=== PATIENT | male | born 1945 | race Caucasian/White ===

== ENCOUNTER → 2016-05-08 | Day surgery (SDC) | payer BC ==
[2016-04-27 09:14] VITALS: Ht 180.3 cm; Wt 85.5 kg
[~2016-05-08] VITALS: Ht 180.3 cm; Wt 85.5 kg
[~2016-05-08] MED LIST: ALBU1AER9 INH; ARTIOIN2 OPB; ASPEC81 PO; ASPI-435 PO; ATROPINE SULFATE 0.1 MG/ML 5ML SYR IV PRN; BUME1TAB PO; BUPR-83 PO; CARV25TA PO; CARV25TA2 PO; CETI10TA84 PO; CHOL1CAP30 PO; CHOL2000 PO; CIPR-255 PO; CLC100 PO; CMD5 PO; CRFL PO; DOCU100C31 PO; DOCU1TAB6 PO; DXY100 PO; EMOL-19 TOP; EPIN1INJ37; EPP3 IM; EpHEDrine SULFATE INJ 50 MG/ML AMP IV PRN; FERR325T5 PO; FINA5TAB PO; FOLI1TAB7 PO; HYDR-3126 PO; KETAMINE HCL INJ 50 MG/ML 10 ML VIAL ONE; LISI-729 PO; LISI5TAB3 PO; LSN5 PO; METO-157 PO; METO5TAB2 PO; MIDAZOLAM HCL 1 MG/ML 2ML VIAL ONE; MOME50SP5 NAE; MOME6000 NAE; NYSCR30 EXT; NYST1POW7; ONDA4TAB46 PO; ONDANSETRON INJ 2 MG/ML 2 ML VIAL ONE; OXYC-652 PO; PANT1TAB48 PO; PANT40TA PO; PHEN-775 PO; POTA20TA16 PO; PROPOFOL IV EMULSION 10 MG/ML 20 ML VIAL IV ONE; SENN8.6T94 PO; SIMV80TA2 PO; SODIUM CHLORIDE 0.9% 500ML 500 ML IV ONE; SODIUM CHLORIDE 0.9% INJ 10 ML VIAL ONE; SPRIN/30 INH; TAMS0.4C38 PO; TIOTCAP INH; VNTHFA/IN INH; WARF5TAB7 PO; WLL100; WLL75 PO; ZNTT/150 PO; cpap INH
--- NOTE | 2016-05-08 11:49 | Endo History and Physical ---
History & Physical Date of Service: May 08, 2016. Chief Complaint: SCREENING, RIGH UPPER QUAD PAIN Referring Physician: DR JUAREZ BOATENG, [facility] History of Present Illness 71 yo CM who presents for EGD secondary to RUQ abdominal pain and screening colonoscopy. Past Medical History Pacemaker, Male Genitourinary Prob., Gastrointestinal Disorder, Sleep Apnea, CABG, Heart Disease, CHF, Hypertension, Depression, MT Past Surgical History Hx Cardiac Surgery: Yes (HEART CATH-1 STENT PLACED) Hx Internal Defibrillator: Yes (PACER/DEFIBRILLATOR ) Hx Pacemaker: Yes Hx Abdominal Surgery: Yes (RT INGUINAL HERNIA X 3, EPIFANIO FUNDOPLICATION, LAP MARCOS) Hx of Implantable Prosthesis: No Hx Post-Op Nausea and Vomiting: No Hx Cancer Surgery: No Hx Thoracic Surgery: No Hx Orthopedic: Yes (RT FOOT SX, LEFT FOOT FX REPAIR (AND HARDWARE REMOVAL)) Hx Urinary Tract Surgery: Yes (VASECTOMY) Family History Polyp Social History Smoking Status: Former Smoker Hx Substance Use: Yes (SEE MED REC) Hx Alcohol Use: No Allergies Coded Allergies: BEE STING (Verified Allergy, Unknown, ., 02/07/16) Lidocaine (Verified Allergy, Unknown, RASH, 02/07/16) Penicillins (Verified Allergy, Unknown, SWELLING, DIFFICULTY BREATHING, ) SWELLING Hydrocodone (Verified Adverse Reaction, Mild, nausea, 02/07/16) Oxycodone (Verified Adverse Reaction, Mild, nausea, 02/07/16) Current Medications Reported Home Medications Medications Dose Route/Sig Max Daily Dose Days Date Category Dose Instructions Carafate (Sucralfate) 1 Gm/10 Ml Genoveva 10 Ml PO HS 02/07/16 Reported Zofran (Ondansetron HCl) 4 Mg Tab 4 Mg PO Q8H PRN 02/07/16 Reported Atarax (Hydroxyzine Hcl) 50 Mg Tab 50 Mg PO TID PRN 02/07/16 Reported Refresh Lacri-Lube (Artificial Tear Ointment) 1 Oin Oin 1 Dose OPB HS 02/07/16 Reported Protonix (Pantoprazole) 40 Mg Tab 40 Mg PO BID 02/07/16 Reported Coreg (Carvedilol) 25 Mg Tab 12.5 Mg PO QPM 02/07/16 Reported Bumex (Bumetanide) 1 Mg Tab 1 Mg PO QAM 90 11/21/15 Reported WILL TAKE 1 ADDITIONAL MED IF SIGNIFICANT WEIGHT GAIN Jantoven (Warfarin Sodium) 5 Mg Tab 2.5 Mg PO 2XWK 11/20/15 Reported takes on wednesday and Oxycodone HCl ER (Oxycodone HCl) 10 Mg Tab 10 Mg PO Q12 11/20/15 Reported Nystatin Cream (Nystatin) 90 Appln/30 Gm Cr 1 Appln EXT BID 11/20/15 Reported APPLY TO AFFECTED AREA BID Coreg (Carvedilol) 25 Mg Tab 25 Mg PO QAM 11/20/15 Reported Wellbutrin (Bupropion HCl) 100 Mg Tab 100 Mg PO BID 11/20/15 Reported Spiriva Handihaler (Tiotropium [place]) 18 Mcg/ Aerp 1 Cap INH BID 06/12/15 Reported Lubriderm (Emollient) 1 Lot Lot 1 Appln TOP Q8 06/12/15 Reported Coumadin (Warfarin Sod) 5 Mg Tab 5 Mg PO 5XWK 06/12/15 Reported takes on wednesday, wednesday, wednesday, wednesday and wednesday Reglan (Metoclopramide HCl) 10 Mg Tab 5 Mg PO Q8 06/12/15 Reported NAUSEA Klor-Con (Potassium Chloride) 20 Meq Tabcr 20 Meq PO BID 06/12/15 Reported Proair Hfa (Albuterol) Aers 2 Puff INH TID PRN 08/23/14 Reported Zocor (Simvastatin) 80 Mg Tab 40 Mg PO QPM 02/27/13 Reported Sennosides 8.6 Mg Tab 17.2 Mg PO BID 02/27/13 Reported Zestril (Lisinopril) 5 Mg Tab 5 Mg PO BID 02/27/13 Reported TAKE 1/2 TABLET EVERY AM TAKE 1 TAB IN EVENING Ferrous Sulfate 325 Mg Tab 325 Mg PO HS 02/27/13 Reported TAKE WITH FOOD Flomax (Tamsulosin Hcl) 0.4 Mg Cap 0.4 Mg PO QAM 08/09/12 Reported Folvite (Folic Acid) 1 Mg Tab 1 Mg PO QAM 08/09/12 Reported Ecotrin Or Generic * (Aspirin) 81 Mg Ectab 81 Mg PO QAM 04/30/11 Reported [cpap] INH HS 04/15/11 Reported Zantac (Ranitidine HCl) 150 Mg Tab 300 Mg PO HS 03/30/11 Reported Nasonex (Mometasone Furoate) [place] DEB BID 09/30/10 Reported Colace * (Docusate Sodium) 100 Mg Cap 100 Mg PO BID 09/30/10 Reported Epipen * (Epinephrine) 0.3 Mg Inj 0.3 Mg IM UD 11/30/08 Reported Proscar (Finasteride) 5 Mg Tab 5 Mg PO QAM 11/30/08 Reported Vital Signs Weight (Kilograms): 85.45 Height (Feet): 5 Height (Inches): 11 Date Time Temp Pulse Resp B/P Pulse Ox O2 Delivery O2 Flow Rate FiO2 05/08/16 11:21 36.4 86 22 126/77 98 Room Air Physical Exam General Appearance: WD/WN, no apparent distress Respiratory/Chest: Auscultation: breath sounds normal Cardiovascular: Heart Auscultation: RRR Abdomen: Bowel Sounds: normal Inspection & Palpation: soft, non-distended, no tenderness, guarding & rebound Assessment and Plan Assessment: 71 yo CM who presents for EGD secondary to RUQ abdominal pain and screening colonoscopy. Plan: Proceed with EGD and colonoscopy.
--- NOTE | 2016-05-08 12:26 | GI REPORT ---
Procedure Date: 05/08/2016 12:03 PM Procedure: Colonoscopy Indications: Screening for colorectal malignant neoplasm Medicines: Monitored Anesthesia Care Complications: No immediate complications. Estimated Blood Loss: Estimated blood loss: none. Procedure: Pre-Anesthesia Assessment: - Prior to the procedure, a History and Physical was performed, and patient medications and allergies were reviewed. The patient's tolerance of previous anesthesia was also reviewed. The risks and benefits of the procedure and the sedation options and risks were discussed with the patient. All questions were answered, and informed consent was obtained. Prior Anticoagulants: The patient last took aspirin 1 day and Coumadin (warfarin) 1 day prior to the procedure. ASA Grade Assessment: IV - A patient with severe systemic disease that is a constant threat to life. After reviewing the risks and benefits, the patient was deemed in satisfactory condition to undergo the procedure. After I obtained informed consent, the scope was passed under direct vision. Throughout the procedure, the patient's blood pressure, pulse, and oxygen saturations were monitored continuously. The On-site loaner was introduced through the anus and advanced to the cecum, identified by appendiceal orifice and ileocecal valve. The colonoscopy was performed without difficulty. The patient tolerated the procedure well. The quality of the bowel preparation was good. The ileocecal valve, appendiceal orifice, and rectum were photographed. Findings: A 5 mm polyp was found in the ascending colon. The polyp was sessile. The polyp was removed with a hot snare. Resection and retrieval were complete. Multiple small-mouthed diverticula were found in the sigmoid colon. Non-bleeding internal hemorrhoids were found during retroflexion. The hemorrhoids were small. Impression: - One 5 mm polyp in the ascending colon, removed with a hot snare. Resected and retrieved. - Diverticulosis in the sigmoid colon. - Non-bleeding internal hemorrhoids. Recommendation: - Resume previous diet. - Continue present medications. - Repeat colonoscopy for surveillance based on pathology results. - Return to primary care physician as previously scheduled. Umair Mi DO 05/08/2016 12:25:31 PM This report has been signed electronically. Note Initiated On: 05/08/2016 12:03 PM
--- NOTE | 2016-05-08 12:28 | GI REPORT ---
Procedure Date: 05/08/2016 11:59 AM Procedure: Upper GI endoscopy Indications: Abdominal pain in the right upper quadrant Medicines: Monitored Anesthesia Care Complications: No immediate complications. Estimated Blood Loss: Estimated blood loss: none. Procedure: Pre-Anesthesia Assessment: - Prior to the procedure, a History and Physical was performed, and patient medications and allergies were reviewed. The patient's tolerance of previous anesthesia was also reviewed. The risks and benefits of the procedure and the sedation options and risks were discussed with the patient. All questions were answered, and informed consent was obtained. Prior Anticoagulants: The patient last took aspirin 1 day and Coumadin (warfarin) 1 day prior to the procedure. ASA Grade Assessment: IV - A patient with severe systemic disease that is a constant threat to life. After reviewing the risks and benefits, the patient was deemed in satisfactory condition to undergo the procedure. After obtaining informed consent, the endoscope was passed under direct vision. Throughout the procedure, the patient's blood pressure, pulse, and oxygen saturations were monitored continuously. The scope was introduced through the mouth, and advanced to the second part of duodenum. The upper GI endoscopy was accomplished without difficulty. The patient tolerated the procedure well. Findings: The esophagus was normal. The stomach was normal. The examined duodenum was normal. Impression: - Normal esophagus. - Normal stomach. - Normal examined duodenum. - No specimens collected. Recommendation: - Resume previous diet. - Continue present medications. - Return to GI office as previously scheduled. Umair Mi DO 05/08/2016 12:27:40 PM This report has been signed electronically. Note Initiated On: 05/08/2016 11:59 AM
--- NOTE | 2016-05-08 12:47 | Anesthesiology Progress Note ---
Anesthesia Post Op Note Date & Time May 08, 2016 at 12:47 Vital Signs Pain Intensity: 0 Vital Signs Past 12 Hours Date Time Temp Pulse Resp B/P Pulse Ox O2 Delivery O2 Flow Rate FiO2 05/08/16 12:36 68 16 104/49 95 Room Air 05/08/16 12:21 65 16 104/47 97 Room Air 05/08/16 11:21 36.4 86 22 126/77 98 Room Air Notes Mental Status: alert / awake / arousable, participated in evaluation Pt Amnestic to Procedure: Yes Nausea / Vomiting: adequately controlled Pain: adequately controlled Airway Patency, RR, SpO2: stable & adequate BP & HR: stable & adequate Hydration State: stable & adequate Anesthetic Complications: no major complications apparent
--- NOTE | 2016-05-08 13:09 | Discharge Instructions ---
Endoscopy Patient Instructions Date / Procedure(s) Performed May 08, 2016. Colonoscopy, EGD Allergy Information Coded Allergies: BEE STING (Verified Allergy, Unknown, ., 02/07/16) Lidocaine (Verified Allergy, Unknown, RASH, 02/07/16) Penicillins (Verified Allergy, Unknown, SWELLING, DIFFICULTY BREATHING, ) SWELLING Hydrocodone (Verified Adverse Reaction, Mild, nausea, 02/07/16) Oxycodone (Verified Adverse Reaction, Mild, nausea, 02/07/16) Discharge Date / Findings May 08, 2016. EGD: Normal with evidence of prior Khari Fundoplication Colonoscopy: Colon polyp, Diverticulosis, Internal hemorrhoids Medication Instructions Stopped Medication(s): WARFARIN OK to resume all medications today as prescribed. Reported Home Medications Medications Dose Route/Sig Max Daily Dose Days Date Category Dose Instructions Carafate (Sucralfate) 1 Gm/10 Ml Genoveva 10 Ml PO HS 02/07/16 Reported Zofran (Ondansetron HCl) 4 Mg Tab 4 Mg PO Q8H PRN 02/07/16 Reported Atarax (Hydroxyzine Hcl) 50 Mg Tab 50 Mg PO TID PRN 02/07/16 Reported Refresh Lacri-Lube (Artificial Tear Ointment) 1 Oin Oin 1 Dose OPB HS 02/07/16 Reported Protonix (Pantoprazole) 40 Mg Tab 40 Mg PO BID 02/07/16 Reported Coreg (Carvedilol) 25 Mg Tab 12.5 Mg PO QPM 02/07/16 Reported Bumex (Bumetanide) 1 Mg Tab 1 Mg PO QAM 90 11/21/15 Reported WILL TAKE 1 ADDITIONAL MED IF SIGNIFICANT WEIGHT GAIN Jantoven (Warfarin Sodium) 5 Mg Tab 2.5 Mg PO 2XWK 11/20/15 Reported takes on wednesday and Oxycodone HCl ER (Oxycodone HCl) 10 Mg Tab 10 Mg PO Q12 11/20/15 Reported Nystatin Cream (Nystatin) 90 Appln/30 Gm Cr 1 Appln EXT BID 11/20/15 Reported APPLY TO AFFECTED AREA BID Coreg (Carvedilol) 25 Mg Tab 25 Mg PO QAM 11/20/15 Reported Wellbutrin (Bupropion HCl) 100 Mg Tab 100 Mg PO BID 11/20/15 Reported Spiriva Handihaler (Tiotropium [place]) 18 Mcg/ Aerp 1 Cap INH BID 06/12/15 Reported Lubriderm (Emollient) 1 Lot Lot 1 Appln TOP Q8 06/12/15 Reported Coumadin (Warfarin Sod) 5 Mg Tab 5 Mg PO 5XWK 06/12/15 Reported takes on wednesday, wednesday, wednesday, wednesday and wednesday Reglan (Metoclopramide HCl) 10 Mg Tab 5 Mg PO Q8 06/12/15 Reported NAUSEA Klor-Con (Potassium Chloride) 20 Meq Tabcr 20 Meq PO BID 06/12/15 Reported Proair Hfa (Albuterol) Aers 2 Puff INH TID PRN 08/23/14 Reported Zocor (Simvastatin) 80 Mg Tab 40 Mg PO QPM 02/27/13 Reported Sennosides 8.6 Mg Tab 17.2 Mg PO BID 02/27/13 Reported Zestril (Lisinopril) 5 Mg Tab 5 Mg PO BID 02/27/13 Reported TAKE 1/2 TABLET EVERY AM TAKE 1 TAB IN EVENING Ferrous Sulfate 325 Mg Tab 325 Mg PO HS 02/27/13 Reported TAKE WITH FOOD Flomax (Tamsulosin Hcl) 0.4 Mg Cap 0.4 Mg PO QAM 08/09/12 Reported Folvite (Folic Acid) 1 Mg Tab 1 Mg PO QAM 08/09/12 Reported Ecotrin Or Generic * (Aspirin) 81 Mg Ectab 81 Mg PO QAM 04/30/11 Reported [cpap] INH HS 04/15/11 Reported Zantac (Ranitidine HCl) 150 Mg Tab 300 Mg PO HS 03/30/11 Reported Nasonex (Mometasone Furoate) [place] 2 [place] DEB BID 09/30/10 Reported Colace * (Docusate Sodium) 100 Mg Cap 100 Mg PO BID 09/30/10 Reported Epipen * (Epinephrine) 0.3 Mg Inj 0.3 Mg IM UD 11/30/08 Reported Proscar (Finasteride) 5 Mg Tab 5 Mg PO QAM 11/30/08 Reported Provider Instructions Activity Restrictions - No exercising or heavy lifting for 24 hours. - Do not drink alcohol the day of the procedure. - Do not drive a car or operate machinery until the day after the procedure. - Do not make any important decisions or sign important papers in 24 hours after the procedure. Following Day: - Return to full activity which may include returning to work/school. Diet Start your diet with liquids and light foods (jello, soup, juice, toast). Then eat your usual diet if not nauseated. Treatment For Common After Affects For mild abdominal pain, bloating, or excessive gas: - Rest - Eat lightly - Lie on right side Follow-Up Information Follow-up with LISSETTE PAGE, DR PIZARRO, [facility] as scheduled Anesthesia Information What You Should Know You have had a procedure that required some medicine to reduce anxiety and discomfort. This treatment is called moderate sedation. After receiving the treatment, you may be sleepy, but you will be able to breathe on your own. The effects of the treatment may last for several hours. Follow these instructions along with Activity/Diet recommendations noted above: * Do NOT do anything where dizziness or clumsiness would be dangerous. * Rest quietly at home today, then you can be up and about tomorrow. * Have a responsible person stay with you the rest of today. * You may have had an I.V. today. If so, you may take the dressing off later today. Recommendations Call your doctor if: * Trouble breathing * Continuous vomiting for more than 24 hours * Temperature above 101 degrees * Severe abdominal pain or bloating * Pain not relieved by pain medicine ordered * There is increased drainage or redness from any incision * A large amount of rectal bleeding greater than 2-3 tablespoons. (If you had a polyp/s removed or have hemorrhoids, a small amount of blood - from the rectum is to be expected.) * You have any unanswered questions or concerns. IN THE EVENT OF A SERIOUS EMERGENCY, GO TO THE NEAREST EMERGENCY ROOM Your discharge instructions were prepared by provider Umair Mi. Patient Instructions Signature Page Royce Louise Patient (or Guardian) Signature/Date: I have read and understand the instructions given to me by my caregivers. Caregiver/RN/Doctor Signature/Date: The above-named patient and/or guardian has received patient instructions on this date. + Original Patient Signature Page (only) stays with chart. Please make copy for patient.
[2016-05-08 13:10] VITALS: PULSE 62; O2SAT 98
== END | disposition home or self-care (01) ==
LOC: C.GI 10:49
PROVIDERS: ATTEND Internal Medicine
DX: Z12.11 Encounter for screening for malignant neoplasm of colon (principal); R10.11 Right upper quadrant pain; D12.2 Benign neoplasm of ascending colon; K57.30 Diverticulosis of large intestine without perforation or abscess without bleeding; K64.8 Other hemorrhoids; G47.30 Sleep apnea, unspecified; I25.2 Old myocardial infarction; I50.9 Heart failure, unspecified; I10 Essential (primary) hypertension; F32.9 Major depressive disorder, single episode, unspecified; Z95.1 Presence of aortocoronary bypass graft; Z87.891 Personal history of nicotine dependence; Z95.810 Presence of automatic (implantable) cardiac defibrillator; Z88.0 Allergy status to penicillin; Z88.5 Allergy status to narcotic agent; Z88.8 Allergy status to other drugs, medicaments and biological substances; Z79.01 Long term (current) use of anticoagulants

== ENCOUNTER → 2016-06-11 | Outpatient (CLI) | payer BC ==
[~2016-06-11] MED LIST changes: -ATROPINE SULFATE 0.1 MG/ML 5ML SYR IV PRN; -EpHEDrine SULFATE INJ 50 MG/ML AMP IV PRN; -KETAMINE HCL INJ 50 MG/ML 10 ML VIAL ONE; -MIDAZOLAM HCL 1 MG/ML 2ML VIAL ONE; -ONDANSETRON INJ 2 MG/ML 2 ML VIAL ONE; -PROPOFOL IV EMULSION 10 MG/ML 20 ML VIAL IV ONE; -SODIUM CHLORIDE 0.9% 500ML 500 ML IV ONE; -SODIUM CHLORIDE 0.9% INJ 10 ML VIAL ONE
[2016-06-11 10:04] LABS: BASO % 0.5 %; BASO ABS # 0.04 K/uL (0-0.2); COMPLETE YES; EOS % 6.5 %; HEMATOCRIT 42.2 % (42-52); IG% 0.4 %; LYMPH % 26.3 %; LYMPH ABS # 1.93 K/uL (1.2-3.4); MEAN CELL VOLUME 88.5 fL (80-100); MEAN CORPUSCULAR HEMOGLOBIN 30.2 pg (25-34); MEAN CORPUSCULAR HGB CONC 34.1 g/dl (32-36); MEAN PLATELET VOLUME 10.3 fL (7.4-10.4); MONO % 9.5 %; NEUT % 56.8 %; PLATELET COUNT 263 K/uL (130-400); RED BLOOD COUNT 4.77 M/uL (4.7-6.1); WHITE BLOOD COUNT 7.35 K/uL (4.8-10.8)
[2016-06-11 10:37] LABS: BLOOD UREA NITROGEN 13 mg/dl (7-18); BUN/CREATININE RATIO 13.1 (10-20); CARBON DIOXIDE 27 mmol/L (21-32); CHLORIDE 101 mmol/L (98-107); CREATININE 0.98 mg/dl (0.60-1.40); GLUCOSE 96 mg/dl (70-99); POTASSIUM 4.3 mmol/L (3.5-5.1); SODIUM 137 mmol/L (136-145)
== END | disposition home or self-care (01) ==
LOC: C.LAB1850 09:18
PROVIDERS: ATTEND Internal Medicine
DX: I42.9 Cardiomyopathy, unspecified (principal); I50.9 Heart failure, unspecified

== ENCOUNTER → 2016-06-19 | Outpatient (CLI) | payer BC ==
--- NOTE | 2016-06-19 10:57 | DIAGNOSTIC IMAGING REPORT ---
CHEST 2 VIEWS ROUTINE CLINICAL HISTORY: Cardiomyopathy COMPARISON STUDY: 04/09/2016 FINDINGS: The heart remains enlarged. There is a left subclavian pacer/defibrillator present. There is a retrocardiac opacity consistent with a hiatal hernia. There is no failure. There is no focal pulmonary consolidation. There are no pleural effusions.[ IMPRESSION: No active disease in the chest. Electronically signed by: Darell Nichols M.D. 06/19/2016 10:56 AM Dictated Date/Time: 06/19/2016 10:56 AM
== END | disposition home or self-care (01) ==
LOC: C.RAD1850 10:41
PROVIDERS: ATTEND Internal Medicine Pulmonary Disease
DX: I42.9 Cardiomyopathy, unspecified (principal)

== ENCOUNTER → 2016-07-10 | Outpatient (CLI) | payer BC ==
--- NOTE | 2016-07-10 13:47 | DIAGNOSTIC IMAGING REPORT ---
KUB HISTORY: R10.9 Abdominal [id number] COMPARISON: None. FINDINGS: The bowel gas pattern is unremarkable. There are no dilated loops of small bowel to suggest an obstruction. There appears to be a 6 mm stone within the lower pole the right kidney. No definite left renal or ureteral calculi. No pneumoperitoneum or pneumatosis. Cholecystectomy. Pacemaker wires are noted. Stable calcifications in the deep pelvis are consistent with phleboliths. IMPRESSION: A 6 mm right renal stone. No definite left renal or ureteral calculi. Electronically signed by: Lambert Hart M.D. 07/10/2016 1:46 PM Dictated Date/Time: 07/10/2016 1:44 PM
== END | disposition home or self-care (01) ==
LOC: C.RAD 12:59
PROVIDERS: ATTEND Nurse Practitioner Family
DX: R10.9 Unspecified abdominal pain (principal); N20.0 Calculus of kidney

== ENCOUNTER → 2016-07-13 | Outpatient (CLI) | payer BC | END | disposition home or self-care (01) | LOC: C.LAB 16:31 | PROVIDERS: ATTEND Urology | DX: Z12.5 Encounter for screening for malignant neoplasm of prostate (principal) ==

== ENCOUNTER 2016-08-10 11:29 | Day surgery (SDC) | payer BC ==
[2016-07-29 14:31] VITALS: BMI 28.0
--- NOTE | 2016-07-29 15:20 | PAT Medication Instructions ---
Service Date Jul 29, 2016. Current Home Medication List Albuterol (Proair Hfa), 2 PUFF INH TID PRN for PRN Artificial Tear Ointment (Refresh Lacri-Lube), 1 DOSE OPB HS Aspirin Enteric Coated (Ecotrin Or Generic *), 81 MG PO QAM Bumetanide (Bumex), 1 MG PO QAM Bupropion (Wellbutrin), 100 MG PO BID Carvedilol (Coreg), 25 MG PO QAM Carvedilol (Coreg), 12.5 MG PO QPM Docusate Sodium (Colace *), 100 MG PO BID Emollient (Lubriderm), 1 APPLN TOP Q8 Epinephrine (Epipen *), 0.3 MG IM UD Ferrous Sulfate (Ferrous Sulfate), 325 MG PO HS Finasteride (Proscar), 5 MG PO QAM Folic Acid (Folvite), 1 MG PO QAM Lisinopril (Zestril), 5 MG PO QPM Lisinopril (Zestril), 2.5 MG PO QAM Metoclopramide (Reglan), 5 MG PO BID Mometasone Furoate (Nasonex), 2 SPRAY DEB BID Ondansetron Hcl (Zofran), 4 MG PO Q8H PRN for Nausea Oxycodone HCl (Oxycodone HCl ER), 10 MG PO Q12 Pantoprazole (Protonix), 40 MG PO AM/NOON Potassium Ext Rel (Klor-Con), 20 MEQ PO BID Ranitidine (Zantac), 300 MG PO HS Sennosides (Sennosides), 8.6 MG PO BID Simvastatin (Zocor), 40 MG PO QPM Tamsulosin Hcl (Flomax), 0.4 MG PO QAM Warfarin Sod (Coumadin), 5 MG PO 5XWK Warfarin Sod (Jantoven), 2.5 MG PO 2XWK Medication Instructions For Your Scheduled Surgery - Check with surgeon/glass washer and carrier for instructions: Aspirin Enteric Coated (Ecotrin Or Generic *), 81 MG PO QAM - Per surgeon/coumadin clinic/glass washer and carrier instructions: Warfarin Sod (Coumadin), 5 MG PO 5XWK Warfarin Sod (Jantoven), 2.5 MG PO 2XWK - Hold the following medications 24 hours prior to surgery: Emollient (Lubriderm), 1 APPLN TOP Q8 - Hold the following medications the morning of surgery: Ranitidine (Zantac), 300 MG PO HS Sennosides (Sennosides), 8.6 MG PO BID Docusate Sodium (Colace *), 100 MG PO BID Potassium Ext Rel (Klor-Con), 20 MEQ PO BID Metoclopramide (Reglan), 5 MG PO BID Lisinopril (Zestril), 2.5 MG PO QAM Folic Acid (Folvite), 1 MG PO QAM Finasteride (Proscar), 5 MG PO QAM Bumetanide (Bumex), 1 MG PO QAM - Take the following medications the morning of surgery with a sip of water: Albuterol (Proair Hfa), 2 PUFF INH TID PRN for PRN (bring with you to hospital morning of surgery) Carvedilol (Coreg), 25 MG PO QAM Pantoprazole (Protonix), 40 MG PO AM/NOON Ondansetron Hcl (Zofran), 4 MG PO Q8H PRN for Nausea Bupropion (Wellbutrin), 100 MG PO BID Mometasone Furoate (Nasonex), 2 SPRAY DEB BID Epinephrine (Epipen *), 0.3 MG IM UD Oxycodone HCl (Oxycodone HCl ER), 10 MG PO Q12 (okay to take up to 4 hours prior to surgery if needed) - Hold the following medications as scheduled the night before surgery: Lisinopril (Zestril), 5 MG PO QPM - Take the following medications as scheduled the night before surgery: Tamsulosin Hcl (Flomax), 0.4 MG PO QAM Simvastatin (Zocor), 40 MG PO QPM Ranitidine (Zantac), 300 MG PO HS Sennosides (Sennosides), 8.6 MG PO BID Carvedilol (Coreg), 12.5 MG PO QPM Docusate Sodium (Colace *), 100 MG PO BID Potassium Ext Rel (Klor-Con), 20 MEQ PO BID Pantoprazole (Protonix), 40 MG PO AM/NOON Ondansetron Hcl (Zofran), 4 MG PO Q8H PRN for Nausea Bupropion (Wellbutrin), 100 MG PO BID Mometasone Furoate (Nasonex), 2 SPRAY DEB BID Metoclopramide (Reglan), 5 MG PO BID Ferrous Sulfate (Ferrous Sulfate), 325 MG PO HS Epinephrine (Epipen *), 0.3 MG IM UD Artificial Tear Ointment (Refresh Lacri-Lube), 1 DOSE OPB HS Oxycodone HCl (Oxycodone HCl ER), 10 MG PO Q12 If you have any questions please call us at [phone] (Tricia Clark PA-C) or [phone] or [phone]
[2016-07-29 15:31] LABS: BASO % 0.4 %; BASO ABS # 0.03 K/uL (0-0.2); COMPLETE YES; EOS % 4.2 %; HEMATOCRIT 41.1 % (42-52); IG% 0.4 %; LYMPH % 20.3 %; LYMPH ABS # 1.41 K/uL (1.2-3.4); MEAN CELL VOLUME 89.3 fL (80-100); MEAN CORPUSCULAR HEMOGLOBIN 30.7 pg (25-34); MEAN CORPUSCULAR HGB CONC 34.3 g/dl (32-36); MEAN PLATELET VOLUME 10.3 fL (7.4-10.4); MONO % 7.2 %; NEUT % 67.5 %; PLATELET COUNT 254 K/uL (130-400); WHITE BLOOD COUNT 6.94 K/uL (4.8-10.8)
[2016-07-29 15:33] LABS: BUN/CREATININE RATIO 13.1 (10-20); CALCIUM 8.8 mg/dl (8.5-10.1); CREATININE 1.1 mg/dl (0.60-1.40)
[2016-07-29 15:37] LABS: URINE APPEARANCE CLEAR (CLEAR); URINE BILIRUBIN NEG (NEG); URINE COLOR YELLOW; URINE NITRITE NEG (NEG); URINE PH 5.5 (4.5-7.5); URINE SPECIFIC GRAVITY 1.016 (1.000-1.030); UROBILINOGEN NEG (NEG)
[2016-07-29 15:39] LABS: MANUAL MICROSCOPIC REQUIRED? NO; REVIEW REQ? NO
[~2016-08-10] VITALS: Ht 182.9 cm; Wt 93.2 kg
[~2016-08-10 11:29] MED LIST changes: -ASPI-435 PO; +ATROPINE SULFATE 0.1 MG/ML 5ML SYR IV PRN; -CETI10TA84 PO; -CHOL1CAP30 PO; -CHOL2000 PO; -CIPR-255 PO; +CIPROFLOXACIN / D5W 400 MG IV SCH; -CRFL PO; -DOCU100C31 PO; -DOCU1TAB6 PO; -DXY100 PO; -EPIN1INJ37; +EpHEDrine SULFATE INJ 50 MG/ML AMP IV PRN; -HYDR-3126 PO; +HYDROmorphone INJ 1 MG/ML SYR IV PRN; +LABETALOL HCL IV 5 MG/ML 20ML IV PRN; +LACTATED RINGER'S 1000ML 1,000 ML IV SCH; -LSN5 PO; +MEPERIDINE HCL 25 MG/ML CARP IV PRN; -METO5TAB2 PO; -MOME6000 NAE; -NYSCR30 EXT; -NYST1POW7; +ONDANSETRON INJ 2 MG/ML 2 ML VIAL IV PRN; -OXYC-652 PO; +OXYC-738 PO; -PANT40TA PO; -PHEN-775 PO; -SPRIN/30 INH; -TIOTCAP INH; -VNTHFA/IN INH; -WLL100; -WLL75 PO; -cpap INH
[2016-08-10 12:25] VITALS: BP 123/70; PULSE 64; TEMP 36.6; O2SAT 98; Ht 182.9 cm; Wt 93.2 kg
[2016-08-10 12:31] LABS: PROTHROMBIN TIME (PATIENT) 11.1 SECONDS (9.0-12.0)
--- NOTE | 2016-08-10 12:36 | History & Physical Bridge Note ---
H&P Re-Evaluation Bridge Note: I have examined the patient, reviewed the History & Physical and in the interval since the performance of the History & Physical I have noted the following changes of clinical significance: No changes noted
[2016-08-10] MEDS ORDERED: LIDOCAINE HCL 2% 2 ML VIAL (20MG/ML) ONE (12:52)
[2016-08-10] MEDS ORDERED: MIDAZOLAM HCL 1 MG/ML 2ML VIAL ONE (12:52)
[2016-08-10] MEDS ORDERED: DEXAMETHASONE SOD INJ 4 MG/ML VIAL ONE (12:52)
[2016-08-10] MEDS ORDERED: PROPOFOL IV EMULSION 10 MG/ML 20 ML VIAL IV ONE (12:52)
[2016-08-10] MEDS ORDERED: FENTANYL CITRATE INJ 50 MCG/1 ML 2 ML VIAL ONE (12:52)
[2016-08-10] MEDS ORDERED: ONDANSETRON INJ 2 MG/ML 2 ML VIAL ONE (12:52)
[2016-08-10] MEDS ORDERED: BELLADONNA/OPIUM SUPP 60 MG SUPP PR ONE ×2 (14:11→14:17)
[2016-08-10] MEDS: FENTANYL CITRATE INJ 50 MCG/1 ML 2 ML VIAL IV PRN ×2 (14:28→14:33)
[2016-08-10] MEDS ORDERED: PHEN-775 PO (14:30)
[2016-08-10] MEDS ORDERED: CIPR-255 PO (14:30)
--- NOTE | 2016-08-10 14:31 | Discharge Instructions ---
Discharge Instructions Date of Service Aug 10, 2016. Admission Reason for Admission: Benign Prostatic Hyperplasia Discharge Discharge Diagnosis / Problem: BPH s/p GLTURP Discharge Goals Goal(s): Improve function, Improve disease control, Therapeutic intervention Activity Recommendations Activity Limitations: per Instructions/Follow-up section Lifting Limitations: no more than 25 pounds, gradually increase as tolerated ( over 1 week) Exercise/Sports Limitations: rest today, gradually increase as tolerated (over 1 week) May Resume Sexual Activity: after follow-up appointment Shower/Bathe: tomorrow (no tub bath with ray in place) Driving or Machine Use: resume 3 days after discharge . Instructions / Follow-Up Instructions / Follow-Up As scheduled in office for removal of ray catheter Discharge Diet Recommended Diet: Regular Diet (good fluid intake) Procedures Procedures Performed: Photoselective vaporization of prostate using greenlight laser Pending Studies Studies pending at discharge: no Medical Emergencies . Who to Call and When: Medical Emergencies: If at any time you feel your situation is an emergency, please call 911 immediately. . Non-Emergent Contact Non-Emergency issues call your: Urologist Call Non-Emergent contact if: you have a fever, temperature is above 101, your pain is not controlled, your pain is worsening, your pain is unusual for you, your pain is concerning you, wound has increased drainage, you have any medication questions . . "Provider Documentation" section prepared by Bird Perales. VTE Core Measure Inpt VTE Proph given/why not?: SCD's
--- NOTE | 2016-08-10 14:33 | [facility] Post Operative Brief Note ---
Immediate Operative Summary Operative Date Aug 10, 2016. Pre-Operative Diagnosis Benign Prostatic Hypertrophy, urinary obstruction Post-Operative Diagnosis Same Procedure(s) Performed Photoselective vaporization of prostate using greenlight laser Surgeon Dr Bird Perales Fiscal Officer Surgeon(s) none Estimated Blood Loss 5 CC Findings Open fossa after ~120KJ used, excellent hemostasis. Specimens NONE Drains 20 fr silicone 10 cc H2O Anesthesia G[facility] Complication(s) None Disposition Recovery Room / PACU
[2016-08-10] MEDS ORDERED: OXYCODONE/ACETAMINOPHEN 5-325 TAB PO PRN (14:45)
[2016-08-10] MEDS ORDERED: PHENAZOPYRIDINE HCL 200 MG TAB PO PRN (14:45)
--- NOTE | 2016-08-10 14:53 | OPERATIVE REPORT ---
DATE OF OPERATION: 08/10/2016 PREOPERATIVE DIAGNOSIS: Benign prostatic hypertrophy with urinary obstruction. POSTOPERATIVE DIAGNOSIS: Same. PROCEDURE: GreenLight vaporization of the prostate gland. SURGEON: Dr. Bird Perales. DEMOLITION CRANE OPERATOR: None. ANESTHESIA: General anesthesia with laryngeal mask. COMPLICATIONS: None. FINDINGS: Open prostatic fossa with excellent hemostasis after 120,000 joules of energy used. DRAINS LEFT IN PLACE: Include a Kingtson catheter to gravity drainage. ESTIMATED BLOOD LOSS: Minimal. SPECIMENS SENT TO PATHOLOGY: None. DRAINS LEFT IN PLACE: Include a 20-Georgian silicone catheter with 10 mL of sterile water in the balloon. BRIEF HISTORY: Mr. Louise is a pleasant 71-year-old male who I have seen as an outpatient for history of urinary difficulties. Please see H\T\P for further details. After discussion of risks and benefits of various forms of intervention, he has decided upon a GreenLight vaporization of his prostate gland to manage his disease. Intravenous ciprofloxacin provided for antibiotic coverage and SCDs used for DVT prophylaxis. OPERATION AND FINDINGS: PROCEDURE: The patient was properly identified and brought to the operative suite. After identification and appropriate consent on the chart, general anesthesia with laryngeal mask was initiated and the patient was prepped and draped in standard fashion for this procedure. time clock mechanic-out procedure was followed. GreenLight laser resectoscope was introduced into the bladder under direct visualization and bladder was surveyed in its entirety demonstrating no intravesical papillary lesions, masses, calculi with mild trabeculation. An obstructive prostate gland was appreciated as noted on office cystoscopy. Ureteral orifices in the normal anatomic location bilaterally and noted to be effluxing clear yellow urine. Using a side fire GreenLight laser resectoscope, circumferential vaporization of the prostate gland was performed. The bladder neck was dropped until flushed with the trigone and relaxing incisions at the 5 and 7 o'clock position were made. Great care was taken to avoid any injury to the ureteral orifices. After approximately 120,000 joules of energy were used, the prostate was noted to be circumferentially unobstructed with good vaporization of the prostate tissue and apical sparing. Excellent hemostasis was appreciated throughout the case. Bladder was again noted to be free of any injury as were the ureteral orifices. After this was completed, bladder was partially distended and resectoscope was removed. A 20-Georgian silicone catheter was placed without resistance or difficulties with 10 mL of sterile water in the balloon and return of clear drainage. Belladonna and opium suppository was provided for additional postoperative analgesia. Anesthesia was reversed. The patient was transferred to recovery room in stable condition. FOLLOW-UP CARE: The patient will be discharged home with a prescription for Pyridium and ciprofloxacin. He takes baseline narcotic pain medication at home and can use this for analgesia as needed. Outpatient appointments for a trial of void and postoperative visit are confirmed. The patient is instructed to contact our service should he note any fevers, chills, nausea, vomiting or other significant difficulties in the postoperative period. I attest to the content of the Intraoperative Record and any orders documented therein. Any exceptio ns are noted below.
[2016-08-10 15:08] VITALS: BP 108/72; PULSE 72; TEMP 36.4; O2SAT 97
--- NOTE | 2016-08-10 15:12 | Anesthesiology Progress Note ---
Anesthesia Post Op Note Date & Time Aug 10, 2016 at 15:11 Vital Signs Pain Intensity: 3 Vital Signs Past 12 Hours Date Time Temp Pulse Resp B/P Pulse Ox O2 Delivery O2 Flow Rate FiO2 08/10/16 14:55 36.4 60 16 114/71 95 Room Air 08/10/16 14:45 36.4 61 16 112/69 94 Room Air 08/10/16 14:35 64 16 111/72 96 Mask 10 08/10/16 14:25 61 16 115/75 100 Mask 10 08/10/16 14:16 36.4 69 16 114/75 100 Mask 10 08/10/16 12:25 36.6 64 20 123/70 98 Room Air CPAP Notes Mental Status: alert / awake / arousable, participated in evaluation Pt Amnestic to Procedure: Yes Nausea / Vomiting: adequately controlled Pain: adequately controlled Airway Patency, RR, SpO2: stable & adequate BP & HR: stable & adequate Hydration State: stable & adequate Anesthetic Complications: no major complications apparent
[2016-08-10 15:40] VITALS: BP 108/68; PULSE 60; O2SAT 95
[2016-08-10 16:10] VITALS: BP 115/62; PULSE 60; TEMP 36.7; O2SAT 95
[2016-10-03] MEDS ORDERED: DXY100 PO (13:02)
[2016-10-03] MEDS ORDERED: OXYC-738 PO (13:02)
== END 2016-08-10 16:20 | disposition home or self-care (01) ==
LOC: C.ACU 11:29
PROVIDERS: ATTEND Urology
DX: N40.1 Benign prostatic hyperplasia with lower urinary tract symptoms (principal); N13.9 Obstructive and reflux uropathy, unspecified; R35.0 Frequency of micturition; F52.8 Other sexual dysfunction not due to a substance or known physiological condition; R30.0 Dysuria; F32.9 Major depressive disorder, single episode, unspecified; J45.909 Unspecified asthma, uncomplicated; J44.9 Chronic obstructive pulmonary disease, unspecified; G47.33 Obstructive sleep apnea (adult) (pediatric); K21.9 Gastro-esophageal reflux disease without esophagitis; N18.9 Chronic kidney disease, unspecified; I12.9 Hypertensive chronic kidney disease with stage 1 through stage 4 chronic kidney disease, or unspecified chronic kidney disease; M19.90 Unspecified osteoarthritis, unspecified site; I25.2 Old myocardial infarction; Z68.25 Body mass index [BMI] 25.0-25.9, adult; Z98.52 Vasectomy status; Z90.49 Acquired absence of other specified parts of digestive tract; Z88.0 Allergy status to penicillin; Z88.5 Allergy status to narcotic agent; Z86.718 Personal history of other venous thrombosis and embolism; Z86.711 Personal history of pulmonary embolism; Z95.0 Presence of cardiac pacemaker; Z87.891 Personal history of nicotine dependence; Z98.890 Other specified postprocedural states; Z79.82 Long term (current) use of aspirin; Z79.01 Long term (current) use of anticoagulants; Z79.899 Other long term (current) drug therapy; Z80.3 Family history of malignant neoplasm of breast; Z82.49 Family history of ischemic heart disease and other diseases of the circulatory system

== ENCOUNTER 2016-09-01 09:53 | Inpatient (IN) | payer BC, OTHER ==
[~2016-09-01] VITALS: Ht 180.3 cm; Wt 91.8 kg
[~2016-09-01 09:53] MED LIST changes: -ATROPINE SULFATE 0.1 MG/ML 5ML SYR IV PRN; +CIPR-255 PO; -CIPROFLOXACIN / D5W 400 MG IV SCH; -EpHEDrine SULFATE INJ 50 MG/ML AMP IV PRN; -HYDROmorphone INJ 1 MG/ML SYR IV PRN; -LABETALOL HCL IV 5 MG/ML 20ML IV PRN; -LACTATED RINGER'S 1000ML 1,000 ML IV SCH; -MEPERIDINE HCL 25 MG/ML CARP IV PRN; -ONDANSETRON INJ 2 MG/ML 2 ML VIAL IV PRN
[2016-09-01] MEDS ORDERED: SODIUM CHLORIDE 0.9% 1000ML 1,000 ML IV SCH (10:13)
[2016-09-01 10:40] LABS: BASO % 0.5 %; BASO ABS # 0.04 K/uL (0-0.2); COMPLETE YES; EOS % 6.7 %; HEMATOCRIT 40.5 % (42-52); IG% 0.9 %; LYMPH % 26.9 %; LYMPH ABS # 2.05 K/uL (1.2-3.4); MEAN CELL VOLUME 90.2 fL (80-100); MEAN CORPUSCULAR HEMOGLOBIN 30.1 pg (25-34); MEAN CORPUSCULAR HGB CONC 33.3 g/dl (32-36); MEAN PLATELET VOLUME 9.7 fL (7.4-10.4); PLATELET COUNT 314 K/uL (130-400); RED BLOOD COUNT 4.49 M/uL (4.7-6.1); WHITE BLOOD COUNT 7.62 K/uL (4.8-10.8)
[2016-09-01 10:49] LABS: INR 2.6 (0.9-1.1); PARTIAL THROMBOPLASTIN RATIO 1.3; PROTHROMBIN TIME (PATIENT) 28.5 SECONDS (9.0-12.0)
[2016-09-01 11:02] LABS: BLOOD UREA NITROGEN 13 mg/dl (7-18); BUN/CREATININE RATIO 13.4 (10-20); CARBON DIOXIDE 27 mmol/L (21-32); CHLORIDE 101 mmol/L (98-107); CREATININE 0.94 mg/dl (0.60-1.40); GLUCOSE 98 mg/dl (70-99); POTASSIUM 4.3 mmol/L (3.5-5.1); SODIUM 137 mmol/L (136-145)
[2016-09-01 11:06] LABS: CKMB/CK RATIO 3.2 (0-3.0)
--- NOTE | 2016-09-01 11:06 | DIAGNOSTIC IMAGING REPORT ---
CHEST 2 VIEWS ROUTINE CLINICAL HISTORY: sob eval for pnea COMPARISON STUDY: 06/19/2016 FINDINGS: Minimal parenchymal infiltrative change left base. Mild stable cardiomegaly. Lungs otherwise are clear. Permanent bipolar cardiac pacemaker/defibrillator. IMPRESSION: Minimal infiltrative change left base. Mild stable cardiomegaly. Electronically signed by: Junior Rosas M.D. 09/01/2016 11:04 AM Dictated Date/Time: 09/01/2016 10:51 AM
[2016-09-01] MEDS ORDERED: NYST1POW7 (11:25)
[2016-09-01] MEDS ORDERED: CHOL1CAP30 PO (11:25)
[2016-09-01] MEDS ORDERED: LSN5 PO (11:25)
[2016-09-01] MEDS ORDERED: VNTHFA/IN INH (11:25)
[2016-09-01] MEDS ORDERED: MOME6000 NAE (11:25)
[2016-09-01] MEDS ORDERED: SPRIN/30 INH (11:25)
[2016-09-01] MEDS ORDERED: WLL75 PO (11:25)
[2016-09-01] MEDS ORDERED: ASPI-435 PO (11:25)
[2016-09-01] MEDS ORDERED: EPIN1INJ37 (11:25)
[2016-09-01] MEDS ORDERED: DOCU1TAB6 PO (11:25)
--- NOTE | 2016-09-01 11:42 | DIAGNOSTIC IMAGING REPORT ---
CT OF THE HEAD WITHOUT CONTRAST CLINICAL HISTORY: Balance issues. Confusion. Possible stroke. COMPARISON STUDY: Head CT September 30, 2010 and MRI of the brain October 29, 2010. CT DOSE: 614.27 mGy.cm TECHNIQUE: Helical axial images of the head were obtained without IV contrast. Automated exposure control was utilized for the study. FINDINGS: No acute intracranial hemorrhage, midline shift or mass effect is present. Ventricular system is normal. Basilar cisterns are patent. There are no extra axial collections. There is slight asymmetric decreased density of the right caudate head. There are no findings to suggest acute dural sinus thrombosis or acute territorial infarct. There is trace fluid within left mastoid air cells. There is minimal mucosal thickening of the right sphenoid sinus. There are no significant calvarial abnormalities. IMPRESSION: 1. No acute intracranial hemorrhage or mass effect. 2. Slight asymmetric decreased density of the right caudate head. This is probably artifactual although a subacute to acute infarct could appear similar. Electronically signed by: Adam Benson M.D. 09/01/2016 11:41 AM Dictated Date/Time: 09/01/2016 11:35 AM
[2016-09-01 12:14] VITALS: O2SAT 94; Ht 180.3 cm; Wt 91.8 kg
[2016-09-01] MEDS ORDERED: EMOLLIENT TOP SCH (14:00)
[2016-09-01] MEDS ORDERED: ONDANSETRON INJ 2 MG/ML 2 ML VIAL IV PRN (14:00)
[2016-09-01] MEDS ORDERED: MAGNESIUM HYDROXIDE SUSP 30 ML UDC PO PRN (14:00)
[2016-09-01] MEDS ORDERED: ACETAMINOPHEN 325 MG TAB PO PRN (14:00)
[2016-09-01] MEDS ORDERED: ALUMINUM/MAGNESIUM/SIMETH (MAALOX MAX) 30 ML UDC PO PRN (14:00)
[2016-09-01] MEDS ORDERED: POLYETHYLENE (MIRALAX) 17 GM PACK PO PRN (14:00)
[2016-09-01] MEDS ORDERED: PHARMACIST DISCHARGE MED REC CONSULT PRN (14:15)
[2016-09-01] MEDS ORDERED: OPTIRAY 320 IV PRN (14:15)
--- NOTE | 2016-09-01 14:24 | Progress Note ---
Progress Note Date of Service September 01, 2016. Progress Note Balance problem, [id number]
[2016-09-01] MEDS ORDERED: ALBUT/IPRATROP 3MG/0.5MG NEB 3 ML VIAL INH PRN (14:45)
--- NOTE | 2016-09-01 14:48 | Medical Student: [facility] ---
Med Student History & Physical Date & Time of Service: September 01, 2016 at 14:10 Chief Complaint: Balance Issues,Confusion Primary Care Physician: Tramaine Peterson MD History of Present Illness Source: patient, spouse Mr. Manolo Louise is a 71 y/o male who presented to the ED this morning following 7- 10 days of decreased balance and coordination, increased fatigue, and feelings of tingling in his face. He denies any acute events within the last two weeks that may have contributed to his current complaints. However, he had prostate surgery on August 10 and was off coumadin for 5 days before and after surgery. He recovered uneventfully. About one week ago, he noticed his balance was worse than baseline, and also noted periodic tingling in his face bilaterally. He and his deny noticing any facial droop or paralysis. Regarding the fatigue, he initially thought it was related to his CHF, as he had been retaining fluid over during the past few weeks. He notes being tired with yard work that previously did not bother him and feeling winded while singing in [place] on Wednesday. Prior to this feeling of increased fatigue, he also experienced increased slavering out of the left side of his mouth for the last 3-4 months, which he attributed to his dentures, until the recent decrease in coordination and balance. Past Medical/Surgical History Medical Problems: (1) Abdominal pain, left lower quadrant Status: Acute (2) Anticoagulated on Coumadin Status: Acute (3) Biliary colic Status: Acute (4) BPH (benign prostatic hypertrophy) Status: Chronic (5) Depression Status: Chronic (6) DVT (deep venous thrombosis) Status: Resolved (7) Emphysema Status: Chronic (8) Intractable pain Status: Acute (9) Lightheaded Status: Acute (10) Macular degeneration Status: Chronic (11) NSTEMI (non-ST elevated myocardial infarction) Status: Acute (12) PE (pulmonary embolism) Status: Resolved (13) Peripheral neuropathy Status: Chronic (14) Sleep apnea Status: Chronic Surgical Problems: (1) AICD (automatic cardioverter/defibrillator) present Status: Chronic Social History Smoking Status: Former Smoker Drug Use: none Marital Status: Housing status: lives with family Occupational Status: retired Immunizations History of Influenza Vaccine: Yes Influenza Vaccine Date: Dec 29, 2010 History of Tetanus Vaccine?: Yes Tetanus Immunization Date: Oct 28, 2010 History of Pneumococcal: Yes Pneumococcal Date: Jan 28, 2011 History of Hepatitis B Vaccine: Yes Allergies Coded Allergies: BEE STING (Verified Allergy, Unknown, SWELLING, SOB, 09/01/16) Lidocaine (Verified Allergy, Unknown, RASH, 09/01/16) Penicillins (Verified Allergy, Unknown, SWELLING, DIFFICULTY BREATHING, 09/01/16) SWELLING Hydrocodone (Verified Adverse Reaction, Mild, nausea, 09/01/16) Oxycodone (Verified Adverse Reaction, Mild, nausea, 09/01/16) Medications Albuterol Hfa (Ventolin Hfa), 2-4 PUFFS INH Q6H Artificial Tear Ointment (Refresh Lacri-Lube), 1 DOSE OPB HS Aspirin (Aspirin 81), 81 MG PO DAILY Bumetanide (Bumex), 1 MG PO QAM Bupropion HCl (Bupropion HCl), 225 MG PO QAM Carvedilol (Coreg), 25 MG PO QAM Carvedilol (Coreg), 12.5 MG PO QPM Cholecalciferol (Vitamin D3), 800 MG PO DAILY Docusate Sodium (Docusate Sodium), 100 MG PO BID Emollient (Lubriderm), 1 APPLN TOP Q8 Epinephrine (Epinephrine) Ferrous Sulfate (Ferrous Sulfate), 325 MG PO HS Finasteride (Proscar), 5 MG PO QAM Folic Acid (Folvite), 1 MG PO QAM Lisinopril (Zestril), 2.5 MG PO QAM Lisinopril (Lisinopril), 5 MG PO QPM Metoclopramide (Reglan), 10 MG PO Q8H Mometasone Furoate (Nasal) (Mometasone Furoate) Nystatin (Topical) (Nystatin) Oxycodone HCl (Oxycodone HCl ER), 10 MG PO Q12 Pantoprazole (Protonix), 40 MG PO AM/NOON Potassium Ext Rel (Klor-Con), 20 MEQ PO BID Ranitidine (Zantac), 300 MG PO HS Sennosides (Sennosides), 8.6 MG PO BID Simvastatin (Zocor), 40 MG PO QPM Tamsulosin Hcl (Flomax), 0.4 MG PO QAM Tiotropium Freedom (Spiriva Handihaler), 1 CAP INH DAILY Warfarin Sod (Coumadin), 5 MG PO 5XWK Warfarin Sod (Jantoven), 2.5 MG PO 2XWK Review of Systems Constitutional: + chills (yesterday, 2x lasting 1 hour each), + fatigue ( progressive over last few weeks), + sweats, No fever, No weakness, No weight loss Eyes: + problem reported (legally blind, 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), No eye pain, No worsening of vision ENT: No hearing loss, No nasal symptoms, No sore throat, No tinnitus, No trouble swallowing Respiratory: No cough, No dyspnea at rest, No dyspnea on exertion, No hemoptysis, No shortness of breath, No sputum, No wheezing Cardiovascular: No PND, No chest pain, No claudication, No edema, No orthopnea , No palpitations Abdomen: No constipation, No diarrhea, No nausea, No pain, No vomiting Musculoskeletal: No calf pain, No joint pain, No muscle pain, No swelling Genitourinary - Male: + urinary frequency (attributed to diuretics), No dysuria Neurologic: + balance problems (chronic poor balance, worse during last 7-10 days), + memory loss (coudn't think of date when asked by nurse earlier today), + numbness/tingling (of face bilaterally), No paralysis, No vertigo, No weakness Psychiatric: No anhedonism, No anxiety, No depression symptoms, No substance abuse Endocrine: + excessive urination (attributed to diuretics), + fatigue ( progressive), No excessive thirst Hematologic / Lymphatic: + clotting problems (previous dvt/PE), No abnormal bleeding/bruising Integumentary: No problem reported Physical Exam Vital Signs (24 Hours) Date Time Temp Pulse Resp B/P Pulse Ox O2 Delivery O2 Flow Rate FiO2 09/01/16 13:09 67 18 102/69 95 Room Air 09/01/16 12:14 94 Room Air 09/01/16 11:36 64 16 112/72 94 Room Air 09/01/16 10:32 95 Room Air 09/01/16 10:29 63 09/01/16 09:58 36.6 66 18 126/84 96 Room Air General Appearance: WD/WN, no apparent distress, + pertinent finding (fatigued) Head: normocephalic, atraumatic Eyes: PERRL, sclerae normal, + abnormal EOM (difficulty tracking on R side due to vision) ENT: normal ENT inspection, hearing grossly normal, pharynx normal Neck: supple, no adenopathy, thyroid normal, no JVD, trachea midline Respiratory/Chest: chest non-tender, lungs clear, normal breath sounds, no respiratory distress, no accessory muscle use Cardiovascular: regular rate, rhythm, no edema, + pertinent finding (pacemaker/ defibulator over left chest) Abdomen/GI: normal bowel sounds, non tender, soft, no organomegaly, no pulsatile mass Back: normal inspection Extremities/Musculoskelatal: no calf tenderness, normal capillary refill, no pedal edema Neurologic/Psych: alert, normal mood/affect, normal reflexes, oriented x 3, + pertinent finding (CN II-IV, -XII normal. CN V- decreased sensation on R side of V2 distribution. No sensation to touch below knee bilaterally. Mildly decreased sensitivity to temperature in all extremities. Positive Romberg sign, unchanged from baseline. Finger to nose testing and rapid alternating movements slow. Heel to meade testing good. ) Skin: normal color, warm/dry Diagnostics Laboratory Results Results Past 24 Hours Test 09/01/16 10:26 09/01/16 10:31 09/01/16 10:32 09/01/16 14:01 Range/Units White Blood Count 7.62 4.8-10.8 K/uL Red Blood Count 4.49 4.7-6.1 M/uL Hemoglobin 13.5 14.0-18.0 g/dL Hematocrit 40.5 42-52 % Mean Corpuscular Volume 90.2 80-100 fL Mean Corpuscular Hemoglobin 30.1 25-34 pg Mean Corpuscular Hemoglobin Concent 33.3 32-36 g/dl Platelet Count 314 130-400 K/uL Mean Platelet Volume 9.7 7.4-10.4 fL Neutrophils (%) (Auto) 57.0 % Lymphocytes (%) (Auto) 26.9 % Monocytes (%) (Auto) 8.0 % Eosinophils (%) (Auto) 6.7 % Basophils (%) (Auto) 0.5 % Neutrophils # (Auto) 4.34 1.4-6.5 K/uL Lymphocytes # (Auto) 2.05 1.2-3.4 K/uL Monocytes # (Auto) 0.61 0.11-0.59 K/uL Eosinophils # (Auto) 0.51 0-0.5 K/uL Basophils # (Auto) 0.04 0-0.2 K/uL RDW Standard Deviation 43.3 36.4-46.3 fL RDW Coefficient of Variation 13.3 11.5-14.5 % Immature Granulocyte % (Auto) 0.9 % Immature Granulocyte # (Auto) 0.07 0.00-0.02 K/uL Prothrombin Time 28.5 9.0-12.0 SECONDS Prothromb Time International Ratio 2.6 0.9-1.1 Activated Partial Thromboplast Time 34.8 21.0-31.0 SECONDS Partial Thromboplastin Ratio 1.3 Sodium Level 137 136-145 mmol/L Potassium Level 4.3 3.5-5.1 mmol/L Chloride Level 101 98-107 mmol/L Carbon Dioxide Level 27 21-32 mmol/L Anion Gap 9.0 3-11 mmol/L Blood Urea Nitrogen 13 7-18 mg/dl Creatinine 0.94 0.60-1.40 mg/dl Est Creatinine Clear Calc Drug Dose 85.2 ml/min Estimated GFR () 94.2 Estimated GFR (Non- 81.2 BUN/Creatinine Ratio 13.4 10-20 Random Glucose 98 70-99 mg/dl Calcium Level 9.0 8.5-10.1 mg/dl Total Creatine Kinase 219 39-308 U/L Creatine Kinase MB 7.1 0.5-3.6 ng/ml Creatine Kinase MB Ratio 3.2 0-3.0 Troponin I < 0.015 0-0.045 ng/ml Bedside Prothrombin Time INR 3.1 0.9-1.1 Bedside Glucose 92 70-99 mg/dl Test 09/01/16 14:05 Range/Units Diagnostic Radiology CXR- minimal infiltrative change in left base of the lung. Otherwise no change from previous CXR, with post-surgical changes from defibulator and cardiomegaly. Head CT- Slightly decreased density of R caudate nucleus. Possibly artifact, possibly old infarct. CXR normal EKG Atrial-sensed Ventricular-paced No change from prior EKG Impression Assessment and Plan Mr. Louise is a 71 yo male with a 7-10 day history of progressive discoordination and loss of balance, fatigue, and tingling in his face without a known preceding event. He has a long (30+ years) history of peripheral neuropathy with baseline balance and coordination impairment, but there has been a noted decrease in functional status in the last week. He has a history of DVT/PE and is anticoagulated on warfarin with a goal of 2.1-2.3. Differential diagnosis includes: Caudate infarct, electrolyte imbalance, dehydration, vitamin B12 or folate deficiency, CHF exacerbation, peripheral vascular disease/claudication. Individual assessment and plan are as follows: 1. Loss of balance/coordination: Cannot rule out infarct of caudate nucleus at this time. Will order repeat CT/CTA of the head tomorrow for comparison to today 's CT, which shows artifact/questionable evolving infarct. Will order B12 and folate. Will check lipid panel to evaluate stroke risk. Consult neurology. 2. Fatigue: Possible hypothyroidism, dehydration/fluid overload. Will monitor I/ Os during hospital stay. Continue with home diuretics and watch weight. Will check TSH. 3. Tingling in face: Cause unknown at this time. Could be isolated event. Will continue to monitor for symptoms/sensation. 4. Anticoagulation: Will continue Coumadin home dosing with adjustments per clinical pharmacy recommendation. Was at 3 today, above ideal range of 2.1-2.3. 5. Continue home meds as tolerated. 6. Disposition: Admit to floor for medical optimization, observation. Level of Care Med/Surg Advanced Directives Existing Living Will: Yes Existing Power of Clinical Documentation Clerk: Yes DVT Prophylaxis warfarin (Coumadin)
--- NOTE | 2016-09-01 15:03 | DIAGNOSTIC IMAGING REPORT ---
CT angiogram the brain HEAD ANGIO WITH CONTRAST CLINICAL HISTORY: Mental status change TECHNIQUE: Transaxial acquisition with multi axial reformatted images COMPARISON STUDY: CT brain same date FINDINGS: All major components of the intracranial vasculature unremarkable. The anterior middle and posterior cerebral circulation is unremarkable. There is no aneurysmal distention. IMPRESSION: Negative study Electronically signed by: Junior Rosas M.D. 09/01/2016 3:01 PM Dictated Date/Time: 09/01/2016 2:58 PM
--- NOTE | 2016-09-01 15:03 | DIAGNOSTIC IMAGING REPORT ---
NECK CTA HISTORY: Confusion. Stroke. TECHNIQUE: Multiaxial CT images of the neck were performed following the intravenous administration of contrast to evaluate the major cervical vessels. Maximum intensity projection images were also obtained. All measurements were calculated based on NASCET criteria. COMPARISON STUDY: None. FINDINGS: The aortic arch and proximal great vessels are widely patent. There is no significant stenosis, occlusion, or dissection identified within the bilateral common carotid, internal carotid, or vertebral arteries. Minimal calcified plaque within the proximal internal carotid arteries. There are tortuous bilateral internal carotid arteries. Mild focal narrowing at the mid right subclavian artery. Left-sided pacemaker wires are noted. Emphysema. IMPRESSION: No significant stenosis, occlusion, or dissection identified within the carotid or vertebral arteries. Mild focal narrowing within the mid right subclavian artery. Electronically signed by: Lambert Hart M.D. 09/01/2016 3:02 PM Dictated Date/Time: 09/01/2016 2:53 PM
[2016-09-01 15:38] VITALS: BP 133/82; PULSE 77; TEMP 36.4; O2SAT 95
--- NOTE | 2016-09-01 15:48 | HISTORY & PHYSICAL EXAMINATION ---
DATE OF ADMISSION: 09/01/2016 This is a level 3 inpatient admission, 35 minutes. CHIEF COMPLAINT: Balance problem, possible worsening difficulty breathing. HISTORY OF PRESENT ILLNESS: The patient is a 71-year-old white male with a significant past medical history of DVT and PE on Coumadin, has conditions of prostate and recently has prostate beam treatment 2 weeks ago, history of hypertension, sleep apnea, depression, coronary artery disease, BPH, comes to the hospital Emergency Department because of the above chief complaint. The patient reported has been having intermittent balance problem for 1 week. He had prostate procedure done on August 03. A week ago, started noticing was off balance and noted 2 days ago has stumbled, reported has been unable to walk normally. asso with of numbness an d tingling on the face. He has history of neuropathies and a blood clot, like I mentioned in the above. Has been on Coumadin. In the Emergency Room when I talked to him, he looks tired but awake, alert and orientated, conversational, follows all commands. Denied fever or chills. Denied cough, sputum. Denied dysuria, urgency or frequencies. Denied chest pain, palpitation, lower extremity swelling. Denied nausea, vomiting, abdominal pain, diarrhea, or constipation. Denied dysuria, urgency and frequencies. Otherwise, 14 points organ system review was negative. PAST MEDICAL HISTORY: Include: 1. Acute on chronic myocardial infarction. 2. Acute venous thrombosis. 3. Biliary dyskinesia. 4. BPH. 5. CHF. 6. CAD. 7. Depression. 8. Diverticulosis in the colon. 9. Deep venous thrombosis, DVT. 10. Emphysema. 11. GERD. 12. Hypertension. 13. Macular degeneration. 14. Pacemaker. 15. Neuropathy. 16. Dyslipidemia. 17. Sleep apnea. 18. AICD. FAMILY HISTORY: Noncontributory. SOCIAL HISTORY: Nonsmoker, denied alcohol abuse disorder, denied illicit drug abuse. CURRENT MEDICATIONS: Include: 1. Albuterol inhaler. 2. Artificial tear 3. Aspirin. 4. Bumex 1 mg p.o. daily. 5. Bupropion 225 mg p.o. q.a.m. 6. Coreg 25 mg p.o. q.a.m. and 12.5 mg p.o. q.p.m. 7. Vitamin D3 800 mg p.o. daily. 8. Docusate 100 mg p.o. b.i.d. 9. Emollient 1 topical application q. 8. 10. Ferrous sulfate 325 mg p.o. at bedtime. 11. Proscar 5 mg p.o. q.a.m. 12. Folic acid 1 mg p.o. q.a.m. 13. Lisinopril 2.5 mg p.o. q.a.m. and 5 mg p.o. q.p.m. 14. Reglan 10 mg p.o. at bedtime. 15. Oxycodone 10 mg p.o. q. 12 hours. 16. Protonix 40 mg p.o. q.a.m. 17. Potassium chloride 20 mEq p.o. b.i.d. 18. Zantac 300 mg p.o. at bedtime. 19. Zocor 40 mg p.o. q.a.m. 20. Spiriva 1 cap inhale daily 21. Coumadin 5 mg 5 times per week and 2.5 mg p.o. 2 times per week. PHYSICAL EXAMINATION: VITAL SIGNS: Temperature 36.6, pulse 66, respiration rate 18, blood pressure 126/84, pulse ox was 96% in room air. GENERAL: The patient is a white male, looks tired but awake, alert and orientated, conversational, follows all commands. HEAD: Normocephalic. EYES: Pupils equal, round responds to light. EARS: Ear was normal. NOSE: Normal. NECK: Supple. Thyroid no enlargement. Trachea midline. LUNGS: Bilateral lung has decreased breathing sounds. There was no wheezing, rhonchi or crackles. HEART: Irregularly irregular. No murmur. Nontender. No gallops. ABDOMEN: Mild obesity, nontender. Bowel sound was positive. BILATERAL LOWER EXTREMITIES: No obvious swelling. Homans sign was negative. Calf was nontender. NEUROLOGICAL EVALUATION: Cranial nerves II-XII was intact. There were no deficits in the lower extremities. LABORATORY STUDIES: WBC 7.6. Hemoglobin 13, platelet 314. INR was 3.1. Sodium 137, potassium 4.3, chloride, BUN 13, creatinine 0.9. Calcium 9.0, CK-MB 7.1, troponin less than 0.05. IMAGING STUDIES: Chest x-ray - possible minimal infiltration changes in the left base. Head CT shows no acute intracranial hemorrhage or mass effect. There was slight injury. ASSESSMENT AND PLAN: 1. Balance problem which has been getting worse, need to rule out CVA 2. Worsening shortness of breath. 3. History of acute myocardial infarction. 4. Congestive heart failure. 5. Hypertension. 6. History of automated implantable cardioverter-defibrillator. 7. History of deep vein thrombosis and PE on Coumadin. 8. Sleep apnea, dyslipidemia, peripheral neuropathy, gastroesophageal reflux disease, depression, benign prostatic hypertrophy; this conditions are all stable. The patient has significant worsening balance problem associated with facial tingling and numbness. CAT scan shows This is probably artifactual although a subacute to acute infarct could appear similar. Therefore, will admit patient to the hospital. The patient's differential diagnosis for Balance problem Parkinson disease, Cerebrovascular accident, neuropathy The patient is not able to do a brain MRI secondary to AICD. Therefore, we will keep patient in the tele. Stroke protocol, NIH stroke scales q. shift. will order a CT angio of head and neck . Echocardiogram was ordered too. Worsening difficulty with breathing, possible combined factors such as CHF exacerbation because history of CHF or worsening PE, I am not checking CT of chest to evaluation of pulmonary embolization because no changes in management, pt is on Coumadin and INR is therapeutic. The patient has baseline of CKD for now. BUN and creatinine level is in the best of the baseline. We will have neurologist consultation. Check HbA1c, cholesterol levels to optimize medication treatment for hypertension, dyslipidemia and diabetes. We will give DuoNeb nebulizer treatment. Continue Coumadin, check PT/INR. Other medical conditions , such as History of acute myocardial infarction, Congestive heart failure, Hypertension, Sleep apnea, dyslipidemia, peripheral neuropathy, gastroesophageal reflux disease, depression, benign prostatic hypertrophy; these conditions are all stable, continue current medications. Fall precautions, PT, OT evaluation and treatment. Continue home medications for now. GI prophylaxis is covered. DVT prophylaxis is covered. I discussed with the patient and about the care plan and I answered all the questions. TRENT
[2016-09-01] MEDS ORDERED: ALBUT/IPRATROP 3MG/0.5MG NEB 3 ML VIAL INH SCH (16:00)
[2016-09-01] MEDS ORDERED: WARFARIN SOD 2.5 MG TAB PO SCH (16:00)
[2016-09-01] MEDS: METOCLOPRAMIDE HCL 10 MG TAB PO SCH ×2 (16:15→20:49)
--- NOTE | 2016-09-01 17:36 | EMERGENCY ROOM VISIT NOTE ---
History Report prepared by Darius: Shruthi Simon Under the Supervision of: Dr. Carson Johnson M.D. First contact with patient: 10:01 Chief Complaint: NEURO SYMPTOMS Stated Complaint: BALANCE ISSUES,CONFUSION Nursing Triage Summary: Pt states, "My balance is been off for a week or so ago. I have been laying around because I had prostate surgery August 10. I get tingling in the side of my face on both sides." Denies h/a. History of Present Illness The patient is a 71 year old male who presents to the Emergency Room with complaints of intermittent balance issues beginning 1 week ago. The patient states that he had prostate surgery on 08/10 and has been relaxing and laying down since his surgery. He reports that a week ago he started noticing that he was off-balance and notes that 2 days ago he stumbled after turning suddenly when he stood up. The patient notes that he went to see his black leather trimmer at the heart failure clinic this morning and they sent him to his PCP before he came in to the ED. He reports that he has been able to walk normally but getting up and standing for long periods of time worsens his symptoms. He notes a history of neuropathy and a h/o blood clot in his lung that he is on Coumadin for. He states he doesn't feel like he did when he had his blood clot. He did resume his Coumadin soon after his surgery. He denies any chest pain. He reports that singing worsens his shortness of breath. Source of History: patient Onset: 1 week ago Position: other (global) Quality: other (off balance) Timing: intermittent Modifying Factors (Worsening): other (standing up and standing for long periods of time) Associated Symptoms: + SOB, No chest pain, No diarrhea, No fevers, No headache, No numbness, No urinary symptoms, No weakness Note: The patient complains of face tingling on both sides from his eyes down beginning yesterday and an upset stomach. He denies any leg swelling, leg pain due to loss of feeling in his legs, slurring of his words, difficulty finding words, understanding others, recent illness. Review of Systems See HPI for pertinent positives & negatives. A total of 10 systems reviewed and were otherwise negative. Past Medical & Surgical Medical Problems: (1) Ac Myocard Infarct,Oth Inferior Wall,Init Epis Car (2) Acute Venous Embolism & Thrombosis Deep Vessels Distal Le (3) Balance problem (4) balance problem (5) Biliary dyskinesia (6) BPH (benign prostatic hypertrophy) (7) Congestive Heart Failure Nos (8) Coronary Atherosclerosis Of [place] Coronary Vessel (9) Depression (10) Diverticulosis Colon (W/O Ment Of Hemorrhage) (11) DVT (deep venous thrombosis) (12) Emphysema (13) Esophageal Reflux (14) Hypertension Nos (15) Macular degeneration (16) Parox Ventric Tachycard (17) PE (pulmonary embolism) (18) Percutaneous Translum Coron Angioplasty Status (19) Peripheral neuropathy (20) Pure Hypercholesterolem (21) Right upper quadrant abdominal pain (22) Sleep apnea (23) Warfarin anticoagulation Surgical Problems: (1) AICD (automatic cardioverter/defibrillator) present Family History Patient reports no known family medical history. Social History Smoking Status: Former Smoker Alcohol Use: none Drug Use: none Marital Status: Occupation Status: retired Current/Historical Medications Scheduled Albuterol Hfa (Ventolin Hfa), 2-4 PUFFS INH Q6H Artificial Tear Ointment (Refresh Lacri-Lube), 1 DOSE OPB HS Aspirin (Aspirin 81), 81 MG PO DAILY Bumetanide (Bumex), 1 MG PO QAM Bupropion HCl (Bupropion HCl), 225 MG PO QAM Carvedilol (Coreg), 25 MG PO QAM Carvedilol (Coreg), 12.5 MG PO QPM Cholecalciferol (Vitamin D3), 800 MG PO DAILY Docusate Sodium (Docusate Sodium), 100 MG PO BID Emollient (Lubriderm), 1 APPLN TOP Q8 Ferrous Sulfate (Ferrous Sulfate), 325 MG PO HS Finasteride (Proscar), 5 MG PO QAM Folic Acid (Folvite), 1 MG PO QAM Lisinopril (Zestril), 2.5 MG PO QAM Lisinopril (Lisinopril), 5 MG PO QPM Metoclopramide (Reglan), 10 MG PO Q8H Oxycodone HCl (Oxycodone HCl ER), 10 MG PO Q12 Pantoprazole (Protonix), 40 MG PO AM/NOON Potassium Ext Rel (Klor-Con), 20 MEQ PO BID Ranitidine (Zantac), 300 MG PO HS Sennosides (Sennosides), 8.6 MG PO BID Simvastatin (Zocor), 40 MG PO QPM Tamsulosin Hcl (Flomax), 0.4 MG PO QAM Tiotropium [place] (Spiriva Handihaler), 1 CAP INH DAILY Warfarin Sod (Coumadin), 5 MG PO 5XWK Warfarin Sod (Jantoven), 2.5 MG PO 2XWK Miscellaneous Medications Epinephrine (Epinephrine) Mometasone Furoate (Nasal) (Mometasone Furoate) Nystatin (Topical) (Nystatin) Allergies Coded Allergies: BEE STING (Verified Allergy, Unknown, SWELLING, SOB, 09/01/16) Lidocaine (Verified Allergy, Unknown, RASH, 09/01/16) Penicillins (Verified Allergy, Unknown, SWELLING, DIFFICULTY BREATHING, 09/01/16) SWELLING Hydrocodone (Verified Adverse Reaction, Mild, nausea, 09/01/16) Oxycodone (Verified Adverse Reaction, Mild, nausea, 09/01/16) Physical Exam Vital Signs Date Time Temp Pulse Resp B/P Pulse Ox O2 Delivery O2 Flow Rate FiO2 09/01/16 13:09 67 18 102/69 95 Room Air 09/01/16 12:14 94 Room Air 09/01/16 11:36 64 16 112/72 94 Room Air 09/01/16 10:32 95 Room Air 09/01/16 10:29 63 09/01/16 09:58 36.6 66 18 126/84 96 Room Air Physical Exam Constitutional: Vital signs reviewed. Eyes: Pupils are equal round reactive to light. Conjunctiva are noninjected. ENT: Pharynx is clear without erythema or exudate. Mucous membranes are moist. Neck supple without meningeal signs. Respiratory: Clear to auscultation bilaterally. Breath sounds are equal bilaterally. Cardiovascular: Regular rate and rhythm. No rubs or gallops. GI: Soft, nondistended and nontender. Bowel sounds are present. Musculoskeletal: No peripheral edema. No lower extremity tenderness. Integumentary: No cyanosis. Neurological: The patient is awake and alert. Cranial nerves II-XII are intact. Motor is 5 out of 5 all extremities. Sensation is intact to light touch all extremities. Normal speech. Normal gait. No pronator drift. No dysdiadochokinesis. No limb ataxia. Psychiatric: Normal affect. Medical Decision & Procedures ER Provider Diagnostic Interpretation: Radiology results as stated below per my review and the radiologist's interpretation: CT OF THE HEAD WITHOUT CONTRAST FINDINGS: No acute intracranial hemorrhage, midline shift or mass effect is present. Ventricular system is normal. Basilar cisterns are patent. There are no extra axial collections. There is slight asymmetric decreased density of the right caudate head. There are no findings to suggest acute dural sinus thrombosis or acute territorial infarct. There is trace fluid within left mastoid air cells. There is minimal mucosal thickening of the right sphenoid sinus. There are no significant calvarial abnormalities. IMPRESSION: 1. No acute intracranial hemorrhage or mass effect. 2. Slight asymmetric decreased density of the right caudate head. This is probably artifactual although a subacute to acute infarct could appear similar. Electronically signed by: Adam Benson M.D. 09/01/2016 11:41 AM Dictated Date/Time: 09/01/2016 11:35 AM CHEST 2 VIEWS ROUTINE FINDINGS: Minimal parenchymal infiltrative change left base. Mild stable cardiomegaly. Lungs otherwise are clear. Permanent bipolar cardiac pacemaker/defibrillator. IMPRESSION: Minimal infiltrative change left base. Mild stable cardiomegaly. Electronically signed by: Junior Rosas M.D. 09/01/2016 11:04 AM Dictated Date/Time: 09/01/2016 10:51 AM Laboratory Results 09/01/16 10:26 Red Blood Count 4.49, Mean Corpuscular Volume 90.2, Mean Corpuscular Hemoglobin 30.1, Mean Corpuscular Hemoglobin Concent 33.3, Mean Platelet Volume 9.7, Neutrophils (%) (Auto) 57.0, Lymphocytes (%) (Auto) 26.9, Monocytes (%) (Auto) 8.0, Eosinophils (%) (Auto) 6.7, Basophils (%) (Auto) 0.5, Neutrophils # (Auto) 4.34, Lymphocytes # (Auto) 2.05, Monocytes # (Auto) 0.61, Eosinophils # (Auto) 0.51, Basophils # (Auto) 0.04 09/01/16 10:26 Test 09/01/16 10:26 09/01/16 10:31 09/01/16 10:32 White Blood Count 7.62 K/uL (4.8-10.8) Red Blood Count 4.49 M/uL (4.7-6.1) Hemoglobin 13.5 g/dL (14.0-18.0) Hematocrit 40.5 % (42-52) Mean Corpuscular Volume 90.2 fL (80-100) Mean Corpuscular Hemoglobin 30.1 pg (25-34) Mean Corpuscular Hemoglobin Concent 33.3 g/dl (32-36) Platelet Count 314 K/uL (130-400) Mean Platelet Volume 9.7 fL (7.4-10.4) Neutrophils (%) (Auto) 57.0 % Lymphocytes (%) (Auto) 26.9 % Monocytes (%) (Auto) 8.0 % Eosinophils (%) (Auto) 6.7 % Basophils (%) (Auto) 0.5 % Neutrophils # (Auto) 4.34 K/uL (1.4-6.5) Lymphocytes # (Auto) 2.05 K/uL (1.2-3.4) Monocytes # (Auto) 0.61 K/uL (0.11-0.59) Eosinophils # (Auto) 0.51 K/uL (0-0.5) Basophils # (Auto) 0.04 K/uL (0-0.2) RDW Standard Deviation 43.3 fL (36.4-46.3) RDW Coefficient of Variation 13.3 % (11.5-14.5) Immature Granulocyte % (Auto) 0.9 % Immature Granulocyte # (Auto) 0.07 K/uL (0.00-0.02) Prothrombin Time 28.5 SECONDS (9.0-12.0) Prothromb Time International Ratio 2.6 (0.9-1.1) Activated Partial Thromboplast Time 34.8 SECONDS (21.0-31.0) Partial Thromboplastin Ratio 1.3 Anion Gap 9.0 mmol/L (3-11) Est Creatinine Clear Calc Drug Dose 85.2 ml/min Estimated GFR () 94.2 Estimated GFR (Non- 81.2 BUN/Creatinine Ratio 13.4 (10-20) Calcium Level 9.0 mg/dl (8.5-10.1) Total Creatine Kinase 219 U/L (39-308) Creatine Kinase MB 7.1 ng/ml (0.5-3.6) Creatine Kinase MB Ratio 3.2 (0-3.0) Troponin I < 0.015 ng/ml (0-0.045) Pro-B-Type Natriuretic Peptide 436 pg/ml (0-900) Bedside Prothrombin Time INR 3.1 (0.9-1.1) Bedside Glucose 92 mg/dl (70-99) Laboratory results as reviewed by me. Medications Administered Medications (Trade) Dose Ordered Sig/Charly Route Start Time Stop Time Status Last Admin Dose Admin Sodium Chloride (Nss 1000ml) 1,000 ml @ 50 mls/hr Q20H IV 09/01/16 10:13 09/01/16 15:42 DC 09/01/16 11:45 50 MLS/HR ECG Indication: other (balance issues) Rate (beats per minute): 61 Rhythm: other (atrial sensed ventricular paced rhythm) Findings: no acute ischemic change, no ectopy ED Course 1003: The patient was evaluated in room B9. A complete history and physical exam was performed. 1013: Sodium Chloride 1000 ml @ 50 mls/hr IV. 1153: I reevaluated the patient and we discussed his test results. 1200: I spoke with Dr. Arriola of [facility] [place]. We discussed the patient and his results. The patient will be further evaluated by Dr. Arriola. Medical Decision This is a 71-year-old male who presents with feeling off balance and dyspnea. Differential diagnosis includes TIA, CVA, intracranial mass, intracranial hemorrhage, pulmonary embolism, cardiac, pneumonia, anemia. I did perform a limited focused review of portions of the patient's old chart on the electronic medical record. The patient had a green light vaporization of the prostate on by Dr. Perales of Urology. I did evaluate the patient as noted above. The patient is neurologically intact on examination. He is not hypoxic or tachypneic. He is not tachycardic. IV access was established. The patient was placed on a continuous manager cardiac. I did order and personally review the patient's 12- lead EKG and chest x-ray as described above. I did order and review the patient 's blood work as noted in the electronic medical record. His INR is therapeutic at 2.6. Troponin is negative. I did order a CT of the head. I did review the images myself as well as the radiology report as described above. There appears to be a acute versus subacute infarct as noted above. The patient cannot have a MRI to further clarify this as he has a pacemaker defibrillator. I did discuss the test results with the patient. Given a therapeutic INR did feel pulmonary embolism was unlikely especially as the patient is not hypoxic or tachypneic or tachycardic. At this time he does not require an emergent CT scan of the chest but I will leave that up to the inpatient team to decide should he need one later this dyspnea continues. I did discuss this with the patient. I did recommend hospitalization for further workup. I did stress the case with the hospitalist and continuous pillowcase cutter. Consults Time Called: 1155 Consulting Physician: Dr. Arriola - [facility] [place] Returned Call: [address] Arriola of [facility] [place]. We discussed the patient and his results. The patient will be further evaluated by Dr. Arriola. Impression Primary Impression: CVA (cerebral vascular accident) Additional Impression: Dyspnea Scribe Attestation The scribe's documentation has been prepared under my direct and personally reviewed by me in its entirety. I confirm that the note above accurately reflects all work, treatment, procedures, and medical decision making performed by me. Departure Information Dispostion Being Evaluated By Hospitalist Referrals Tramaine Peterson MD (PCP) Patient Instructions My [facility] Problem Qualifiers Primary Impression: CVA (cerebral vascular accident) CVA mechanism: unspecified Qualified Codes: I63.9 - Cerebral infarction, unspecified Additional Impression: Dyspnea Dyspnea type: unspecified Qualified Codes: R06.00 - Dyspnea, unspecified
[2016-09-01] MEDS ORDERED: WLL100 (17:59)
[2016-09-01] MEDS: OXYCODONE HCL 10 MG TABCR (OXYCONTIN) PO SCH (19:07)
[2016-09-01 19:13] VITALS: BP 101/64; PULSE 67; TEMP 36.4; O2SAT 91
[2016-09-01] MEDS: POTASSIUM CHLORIDE 20 MEQ TABCR PO SCH (20:47)
[2016-09-01] MEDS: DOCUSATE SODIUM 100 MG CAP PO SCH (20:47)
[2016-09-01] MEDS: SENNA 8.6 MG TAB PO SCH (20:47)
[2016-09-01] MEDS: RANITIDINE HCL 150 MG TAB PO SCH (20:48)
[2016-09-01] MEDS: FERROUS SULFATE 325 MG TAB PO SCH (20:48)
[2016-09-01] MEDS ORDERED: SIMVASTATIN 40 MG TAB PO SCH (21:00)
[2016-09-01] MEDS ORDERED: LISINOPRIL 5 MG TAB PO SCH (21:00)
[2016-09-01] MEDS ORDERED: OXYCODONE HCL 10 MG TABCR (OXYCONTIN) PO SCH (21:00)
[2016-09-01] MEDS ORDERED: CARVEDILOL 12.5 MG TAB PO SCH (21:00)
[2016-09-01 21:57] VITALS: PULSE 81; O2SAT 94
[2016-09-01 22:30] VITALS: BP 131/80; PULSE 68; O2SAT 94
[2016-09-01 23:41] VITALS: BP 114/69; PULSE 73; TEMP 36.3; O2SAT 95
[2016-09-02] VITALS (13 sets, daily range): BP systolic 99–127; BP diastolic 59–81; PULSE 65–84; TEMP 36.2–37; O2SAT 91–98
[2016-09-02] MEDS: OXYCODONE HCL 10 MG TABCR (OXYCONTIN) PO SCH ×2 (05:47→18:23)
[2016-09-02] MEDS: METOCLOPRAMIDE HCL 10 MG TAB PO SCH ×3 (05:48→20:43)
[2016-09-02 06:07] LABS: BASO % 0.3 %; BASO ABS # 0.02 K/uL (0-0.2); COMPLETE YES; EOS % 7.2 %; IG% 0.6 %; LYMPH % 28.4 %; LYMPH ABS # 1.84 K/uL (1.2-3.4); MEAN CELL VOLUME 91.1 fL (80-100); MEAN CORPUSCULAR HEMOGLOBIN 30.8 pg (25-34); MEAN CORPUSCULAR HGB CONC 33.8 g/dl (32-36); MEAN PLATELET VOLUME 9.9 fL (7.4-10.4); MONO % 8.9 %; NEUT % 54.6 %; PLATELET COUNT 267 K/uL (130-400); RED BLOOD COUNT 4.28 M/uL (4.7-6.1); WHITE BLOOD COUNT 6.49 K/uL (4.8-10.8)
[2016-09-02 06:23] LABS: INR 2.1 (0.9-1.1); PROTHROMBIN TIME (PATIENT) 23.1 SECONDS (9.0-12.0)
[2016-09-02 06:44] LABS: CALCIUM 8.9 mg/dl (8.5-10.1); CREATININE 1.1 mg/dl (0.60-1.40); MAGNESIUM 2.4 mg/dl (1.8-2.4); POTASSIUM 4.1 mmol/L (3.5-5.1)
[2016-09-02 06:55] LABS: ESTIMATED AVERAGE GLUCOSE 123 mg/dl; HA1C FLAG Normal (Normal)
[2016-09-02 06:56] LABS: CHOLESTEROL/HDL RATIO 5.5; THYROID STIMULATING HORMONE 1.58 uIu/ml (0.300-4.500)
[2016-09-02] MEDS: ALBUT/IPRATROP 3MG/0.5MG NEB 3 ML VIAL INH SCH ×4 (07:13→19:28)
[2016-09-02] MEDS: TIOTROPIUM BROMIDE 5 PUFF/90 MCG INH INH SCH (08:11)
[2016-09-02] MEDS: CHOLECALCIFEROL 400 INTER.UNIT TAB PO SCH (08:12)
[2016-09-02] MEDS: PANTOprazole SOD 40 MG TAB PO SCH (08:12)
[2016-09-02] MEDS: TAMSULOSIN HCL 0.4 MG CAP PO SCH (08:13)
[2016-09-02] MEDS: SENNA 8.6 MG TAB PO SCH ×2 (08:14→20:43)
[2016-09-02] MEDS: DOCUSATE SODIUM 100 MG CAP PO SCH ×2 (08:14→20:42)
[2016-09-02] MEDS: ASPIRIN 81 MG ECTAB PO SCH (08:14)
[2016-09-02] MEDS: FINASTERIDE 5 MG TAB PO SCH (08:15)
[2016-09-02] MEDS: POTASSIUM CHLORIDE 20 MEQ TABCR PO SCH ×2 (08:53→20:43)
[2016-09-02] MEDS ORDERED: LISINOPRIL 2.5 MG TAB PO SCH (09:00)
[2016-09-02] MEDS ORDERED: BUMETANIDE 1 MG TAB PO SCH (09:00)
[2016-09-02] MEDS ORDERED: CARVEDILOL 25 MG TAB PO SCH (09:00)
--- NOTE | 2016-09-02 09:37 | Neurology Consultation ---
Neurology Consultation Date of Consultation: September 02, 2016. Attending Physician: Fabio Arriola MD, PhD Primary Care Physician: Tramaine Peterson MD Reason for Consultation: Patient is a 71-year-old, who was asked to see the request of Dr. Arriola, for neurologic consultation regarding balance issues and other problems. History of Present Illness Source: patient, caregiver, clinic records, hospital records I first saw this patient in 1991 and followed him for approximately 8 years. He was having chronic low back pain with bilateral lumbosacral radiculopathy seen on EMG. A number of medications were tried and failed for his chronic pain management. He had stopped work in February 1994 because of his low back issue and because of his significant macular degeneration. Over the years, he is continued to have back issues. The patient has a significant polyneuropathy which is been present for years as well. He tells me that over the last 6 months he's had increasing balance problems. This is been much worse over the last couple of weeks or so. Over the years his vision is been getting much worse as well and he is legally blind. He's had some increased fatigability and some drooling out of the left side of his mouth for a couple of weeks now. 3 days ago he noted tingling on his face bilaterally. He was admitted on January 02. On January 02 at 0958 hours temperature 36.6, pulse 66, respiratory rate 18, blood pressure 126/84, O2 saturation 96%. CT scan of the head was unremarkable for acute changes but there may have been a hypodensity in the right caudate head. CT angiography of the head and neck were unremarkable with no significant stenoses. CBC, chem profile, B-12, and CK were unremarkable. Chest x-ray showed some left lower lobe consolidation and a CT scan showed no pneumonia. He is likely having some heart failure issues. Since admission he's had some vertiginous/lightheadedness symptoms that he gets up too quick but his facial tingling is much better. He has no weakness of his muscles but does have numbness in his feet and hands. Past Medical/Surgical History Medical Problems: (1) Abdominal pain, left lower quadrant Status: Acute (2) Anticoagulated on Coumadin Status: Acute (3) Biliary colic Status: Acute (4) BPH (benign prostatic hypertrophy) Status: Chronic (5) CVA (cerebral vascular accident) Status: Acute (6) Depression Status: Chronic (7) Dyspnea Status: Acute (8) Emphysema Status: Chronic (9) Intractable pain Status: Acute (10) Lightheaded Status: Acute (11) Macular degeneration Status: Chronic (12) NSTEMI (non-ST elevated myocardial infarction) Status: Acute (13) Peripheral neuropathy Status: Chronic (14) Sleep apnea Status: Chronic Surgical Problems: (1) AICD (automatic cardioverter/defibrillator) present Status: Chronic Depression Benign prostatic hypertrophy, post greenlight vaporization procedure July of this year History of DVTs and pulmonary emboli on Coumadin History of significant [place] in the past with ischemic cardiomyopathy and congestive heart failure Significant generalized polyneuropathy Sleep apnea Bilateral cataract surgery with severe macular degeneration bilaterally Post AICD implantation (defibrillator) since 2010 Family History Mother is alive at 93 with heart issues Father at 61 of metastatic cancer of uncertain type Social History Patient quit cigarette smoking in 1992 He does not use alcohol. 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 [employer] retiring finally in 1993 on disability Smoking Status: Former smoker Smokeless Tobacco Use: No Alcohol Use: none Drug Use: none Marital Status: Housing Status: lives with family Occupation Status: retired, disabled Allergies Coded Allergies: BEE STING (Verified Allergy, Unknown, SWELLING, SOB, 09/01/16) Lidocaine (Verified Allergy, Unknown, RASH, 09/01/16) Penicillins (Verified Allergy, Unknown, SWELLING, DIFFICULTY BREATHING, 09/01/16) SWELLING Hydrocodone (Verified Adverse Reaction, Mild, nausea, 09/01/16) Oxycodone (Verified Adverse Reaction, Mild, nausea, 09/01/16) Current Inpatient Medications Current Inpatient Medications Medications (Trade) Dose Ordered Sig/Charly Route Start Time Stop Time Status Last Admin Dose Admin Acetaminophen (Tylenol Tab) 650 mg Q4H PRN PO 09/01/16 14:00 10/01/16 13:59 09/02/16 01:15 650 MG Al Hydrox/Mg Hydrox/Simethicone (Maalox Max Susp) 15 ml Q4H PRN PO 09/01/16 14:00 10/01/16 13:59 Magnesium Hydroxide (Milk Of Magnesia Susp) 30 ml Q12H PRN PO 09/01/16 14:00 10/01/16 13:59 Ondansetron HCl (Zofran Inj) 4 mg Q6H PRN IV 09/01/16 14:00 10/01/16 13:59 Polyethylene (Miralax Powder Packet) 17 gm DAILY PRN PO 09/01/16 14:00 10/01/16 13:59 Aspirin (Ecotrin Tab) 81 mg DAILY PO 09/02/16 09:00 10/02/16 08:59 09/02/16 08:14 81 MG Bupropion HCl (Wellbutrin Tab) 100 mg BID PO 09/01/16 21:00 10/01/16 20:59 09/02/16 08:11 100 MG Ferrous Sulfate (Feosol Tab) 325 mg HS PO 09/01/16 21:00 10/01/16 20:59 09/01/16 20:48 325 MG Finasteride (Proscar Tab) 5 mg QAM PO 09/02/16 09:00 10/02/16 08:59 09/02/16 08:15 5 MG Folic Acid (Folvite Tab) 1 mg QAM PO 09/02/16 09:00 10/02/16 08:59 09/02/16 08:15 1 MG Metoclopramide HCl (Reglan Tab) 10 mg Q8H PO 09/01/16 14:00 10/01/16 13:59 09/02/16 05:48 10 MG Pantoprazole Sodium (Protonix Tab) 40 mg DAILY PO 09/02/16 09:00 10/02/16 08:59 09/02/16 08:12 40 MG Potassium Chloride (Klor-Con Tab) 20 meq BID PO 09/01/16 21:00 10/01/16 20:59 09/02/16 08:53 20 MEQ Ranitidine HCl (zANTac TAB) 300 mg HS PO 09/01/16 21:00 10/01/16 20:59 09/01/16 20:48 300 MG Senna (Senokot Tab) 8.6 mg BID PO 09/01/16 21:00 10/01/16 20:59 09/02/16 08:14 8.6 MG Simvastatin (Zocor Tab) 40 mg QPM PO 09/01/16 21:00 10/01/16 20:59 09/01/16 20:49 40 MG Tamsulosin HCl (Flomax Cap) 0.4 mg QAM PO 09/02/16 09:00 10/02/16 08:59 09/02/16 08:13 0.4 MG Tiotropium [place] (Spiriva Handihaler Inhaler) 1 puff DAILY INH 09/02/16 09:00 10/02/16 08:59 09/02/16 08:11 1 PUFF Warfarin Sodium (Coumadin Tab) 5 mg SuMoWeFrSa@1600 PO 09/02/16 16:00 10/02/16 15:59 Warfarin Sodium (Coumadin Tab) 2.5 mg TuTh@1600 PO 09/01/16 16:00 10/01/16 15:59 09/01/16 16:15 2.5 MG Cholecalciferol (Vitamin D Tab) 800 inter.unit DAILY PO 09/02/16 09:00 10/02/16 08:59 09/02/16 08:12 800 INTER.UNIT Docusate Sodium (coLACE CAP) 100 mg BID PO 09/01/16 21:00 10/01/16 20:59 09/02/16 08:14 100 MG Miscellaneous Information (Pharmacist Discharge Med Rec Consult) 1 ea UD PRN N/A 09/01/16 14:15 10/01/16 14:14 Albuterol/ Ipratropium (Duoneb) 3 ml QIDR INH 09/01/16 16:00 10/01/16 15:59 09/02/16 07:13 3 ML Ioversol (Optiray 320) 100 ml UD PRN IV 09/01/16 14:15 09/05/16 14:14 Albuterol/ Ipratropium (Duoneb) 3 ml Q2H PRN INH 09/01/16 14:45 10/01/16 14:44 Oxycodone HCl (Oxycontin Tab) 10 mg Q12@0600,1800 PO 09/01/16 19:00 09/15/16 18:59 09/02/16 05:47 10 MG Review of Systems Constitutional: + fatigue, + weakness Eyes: + worsening of vision, No diplopia ENT: + hearing loss, No trouble swallowing Respiratory: No cough, No shortness of breath Cardiovascular: No chest pain, No palpitations Abdomen: No nausea, No pain Musculoskeletal: No joint pain Genitourinary - Male: No dysuria, No hematuria Neurologic: + balance problems, + numbness/tingling, + vertigo, + weakness, No memory loss Psychiatric: No anxiety, No depression symptoms Endocrine: + fatigue Hematologic / Lymphatic: No abnormal bleeding/bruising Integumentary: No rash Allergic / Immunologic: No hives Physical Exam Vital Signs (Past 24 Hrs): Date Time Temp Pulse Resp B/P Pulse Ox O2 Delivery O2 Flow Rate FiO2 09/02/16 07:13 69 16 96 Room Air 09/02/16 07:12 36.3 69 20 127/81 96 Room Air 09/02/16 04:25 36.5 66 18 107/67 96 2.0 09/02/16 04:00 Nasal Cannula 3.0 09/02/16 02:26 80 18 94 Room Air 09/02/16 00:00 Nasal Cannula 3.0 09/01/16 23:41 36.3 73 18 114/69 95 3.0 09/01/16 22:30 68 16 131/80 94 Room Air 09/01/16 21:57 81 94 09/01/16 20:00 Room Air 09/01/16 19:13 36.4 67 18 101/64 91 Room Air 09/01/16 16:00 Room Air 09/01/16 15:38 36.4 77 18 133/82 95 Room Air 09/01/16 15:01 64 18 120/59 95 Room Air 09/01/16 13:09 67 18 102/69 95 Room Air 09/01/16 12:14 94 Room Air 09/01/16 11:36 64 16 112/72 94 Room Air 09/01/16 10:32 95 Room Air 09/01/16 10:29 63 09/01/16 09:58 36.6 66 18 126/84 96 Room Air Patient is right-handed. The patient is awake and alert. Speech is normal without aphasia or dysarthria. Mentation and thought processes are intact with orientation and normal fund of knowledge. Mood and affect are normal and appropriate. Appearance and grooming are normal. The discs not visible. Pupils are 1-2mm bilaterally and reactive to light. Extraocular eye muscles are intact without nystagmus. Visual acuity and visual paul seem normal grossly to confrontation. There is some slight decreased sensation in the lower half of the right face compared to the left which is normal. Corneal reflexes are positive bilaterally. Facial strength is normal bilaterally, but there is some slight asymmetry with the corner of the mouth on the left. Hearing is decreased bilaterally to use his hearing aids. Palate moves well without asymmetry. There is normal sternocleidomastoid and trapezius strength bilaterally. Tongue is midline with good strength bilaterally. Neck is with full range of motion without discomfort. There are no cervical bruits. There are no cranial or ocular bruits. Heart is without murmur. Cervical, thoracic, and lumbar spine are nontender to palpation. Gait is narrow based and cautious. Stance with eyes open is reasonable. He sways considerably with eyes closed. With outstretched arms there is no drift. There are no resting or postural tremors. He has mild action tremor bilaterally. There is no ataxia with finger -to-nose testing. There is good facility in the hands. There are no abnormal involuntary movements noted. Motor strength is 5/5 diffusely in the arms bilaterally including deltoids, biceps, brachioradialis, wrist flexors and extensors, and purchasing officer muscles. Intrinsic hand muscles are atrophic and mildly weak. Motor strength is 5/5 diffusely in the legs bilaterally including hip flexors, quadriceps, hamstring, gastrocnemius, tibialis anterior, tibialis posterior, and peroneii muscles bilaterally. Toe extensors are normal and there is good bulk in the extensor digitorum brevis muscle bilaterally. The limbs have good tone without rigidity or spasticity.There is atrophy noted distally in the hands and feet. Muscle bulk is normal, there is no tenderness, no myotonia noted to percussion, and no fasciculations seen. Sensory examination reveals a stocking and glove decreased pinprick and touch to the knees and wrists. Reflexes are 0/4 in the biceps, triceps, brachioradialis, quadriceps, and Achilles tendons bilaterally. Toes are downgoing with plantar stimulation bilaterally. Peripheral pulses are present and of normal quality distally in all four limbs. There is no peripheral edema noted. Laboratory Results Past 24 Hours: 09/02/16 05:53 Red Blood Count 4.28, Mean Corpuscular Volume 91.1, Mean Corpuscular Hemoglobin 30.8, Mean Corpuscular Hemoglobin Concent 33.8, Mean Platelet Volume 9.9, Neutrophils (%) (Auto) 54.6, Lymphocytes (%) (Auto) 28.4, Monocytes (%) (Auto) 8.9, Eosinophils (%) (Auto) 7.2, Basophils (%) (Auto) 0.3, Neutrophils # (Auto) 3.54, Lymphocytes # (Auto) 1.84, Monocytes # (Auto) 0.58, Eosinophils # (Auto) 0.47, Basophils # (Auto) 0.02 09/02/16 05:53 Test 09/01/16 10:26 09/01/16 10:31 09/01/16 10:32 09/01/16 14:59 Activated Partial Thromboplast Time 34.8 SECONDS (21.0-31.0) Partial Thromboplastin Ratio 1.3 Estimated Average Glucose 123 mg/dl Hemoglobin A1c 5.9 % (4.5-5.6) Total Creatine Kinase 219 U/L (39-308) Creatine Kinase MB 7.1 ng/ml (0.5-3.6) Creatine Kinase MB Ratio 3.2 (0-3.0) Bedside Prothrombin Time INR 3.1 (0.9-1.1) Bedside Glucose 92 mg/dl (70-99) Vitamin B12 Level 852 pg/mL (211-911) Folate > 24.00 ng/mL (>5.38) Test 09/02/16 05:53 White Blood Count 6.49 K/uL (4.8-10.8) Red Blood Count 4.28 M/uL (4.7-6.1) Hemoglobin 13.2 g/dL (14.0-18.0) Hematocrit 39.0 % (42-52) Mean Corpuscular Volume 91.1 fL (80-100) Mean Corpuscular Hemoglobin 30.8 pg (25-34) Mean Corpuscular Hemoglobin Concent 33.8 g/dl (32-36) Platelet Count 267 K/uL (130-400) Mean Platelet Volume 9.9 fL (7.4-10.4) Neutrophils (%) (Auto) 54.6 % Lymphocytes (%) (Auto) 28.4 % Monocytes (%) (Auto) 8.9 % Eosinophils (%) (Auto) 7.2 % Basophils (%) (Auto) 0.3 % Neutrophils # (Auto) 3.54 K/uL (1.4-6.5) Lymphocytes # (Auto) 1.84 K/uL (1.2-3.4) Monocytes # (Auto) 0.58 K/uL (0.11-0.59) Eosinophils # (Auto) 0.47 K/uL (0-0.5) Basophils # (Auto) 0.02 K/uL (0-0.2) RDW Standard Deviation 44.2 fL (36.4-46.3) RDW Coefficient of Variation 13.4 % (11.5-14.5) Immature Granulocyte % (Auto) 0.6 % Immature Granulocyte # (Auto) 0.04 K/uL (0.00-0.02) Prothrombin Time 23.1 SECONDS (9.0-12.0) Prothromb Time International Ratio 2.1 (0.9-1.1) Anion Gap 8.0 mmol/L (3-11) Est Creatinine Clear Calc Drug Dose 71.2 ml/min Estimated GFR () 77.9 Estimated GFR (Non- 67.2 BUN/Creatinine Ratio 15.0 (10-20) Calcium Level 8.9 mg/dl (8.5-10.1) Magnesium Level 2.4 mg/dl (1.8-2.4) Troponin I < 0.015 ng/ml (0-0.045) Pro-B-Type Natriuretic Peptide 494 pg/ml (0-900) Triglycerides Level 531 mg/dl (0-150) Cholesterol Level 187 mg/dl (0-200) HDL Cholesterol 34 mg/dl LDL Cholesterol, Calculated mg/dl VLDL Cholesterol, Calculated mg/dl Cholesterol/HDL Ratio 5.5 Thyroid Stimulating Hormone (TSH) 1.580 uIu/ml (0.300-4.500) Impression 1. Balance problems. His progressive balance problems are twofold: a. 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 He has a significant sensory ataxia from this. b. His poor vision bilaterally as to his balance problems as he doesn't get the visual cues he needs to keep his balance with his neuropathy. The polyneuropathy is progressing over time. 2. Bilateral facial tingling. This seems to be improving and I'm not certain what is causing this. He does not seem to have a stroke on examination. 3. Easy fatigability 4. Mild action tremor bilaterally Plan 1. Consider Lyme antibody titer, magnesium, TSH 2. Repeat CT scan of the head without contrast 3. Consider physical occupational therapy and rehabilitation hospital stay. 4. I could do an EMG and nerve conduction study of one arm and leg as an outpatient, but I'm not sure this is going to change our treatment plan. 5. I have no medication for neuropathy. If there is pain we could consider medication. He has tried multiple pain medicines and fortunately his pain is under fairly good control now. I will follow.
--- NOTE | 2016-09-02 09:39 | Clinical Documentation Query ---
CLINICAL DOCUMENTATION QUERY 71 year old male with hx of CAD, CHF, and AICD who presents for stroke workup. H&P make mention of a PMHX of CHF, unspecified. The medical record documentation is now expected to include definitive and explicit description of the patient's heart failure; vague terms such as "heart failure," ventricular dysfunction," and "CHF" may not fully capture the physician's intended level of severity. In your clinical opinion is this patient being managed for: ( x ) Chronic systolic (reduced EF) heart failure ( ) Other explanation of clinical findings (Please Explain) ( ) Unable to determine (Please Define) ( ) Need to Discuss ( ) Not Agree The medical record reflects the following clinical findings, treatment, and risk factors. Clinical Indicators: CHF per H&P. Echo from 09/13/12 showed EF of 40-45% with hypokinetic and akinetic wall motion and grade I diastolic dysfunction. Treatment: Telemetry, I/O's, daily weights, Risk Factors: Age, CAD, HTN, HI Please clarify and document your clinical opinion in the progress notes and discharge summary. Terms such as "probable", "suspected", "likely", "questionable", "possible", or "still to be ruled out" are acceptable. IF IN AGREEMENT, YOU MUST DOCUMENT ABOVE DIAGNOSTIC STATEMENT IN DAILY PROGRESS NOTES AND DISCHARGE SUMMARY. This document is not part of the patient's record. Thank You, Andrae Gudino, RN [phone]
--- NOTE | 2016-09-02 10:33 | Progress Note ---
Subjective Date of Service: September 02, 2016. Subjective Pt evaluation today including: conversation w/ patient, conversation w/ family , physical exam, chart review, lab review, review of studies, review of inpatient medication list Problem List Medical Problems: (1) Abdominal pain, left lower quadrant Status: Acute (2) Anticoagulated on Coumadin Status: Acute (3) Biliary colic Status: Acute (4) BPH (benign prostatic hypertrophy) Status: Chronic (5) CVA (cerebral vascular accident) Status: Acute (6) Depression Status: Chronic (7) Dyspnea Status: Acute (8) Emphysema Status: Chronic (9) Intractable pain Status: Acute (10) Lightheaded Status: Acute (11) Macular degeneration Status: Chronic (12) NSTEMI (non-ST elevated myocardial infarction) Status: Acute (13) Peripheral neuropathy Status: Chronic (14) Sleep apnea Status: Chronic Surgical Problems: (1) AICD (automatic cardioverter/defibrillator) present Status: Chronic Review of Systems Constitutional: No chills, No fatigue, No fever, No problem reported, No see HPI, No sweats, No weakness, No weight loss Eyes: No diplopia, No discharge, No eye pain, No problem reported, No redness, No see HPI, No worsening of vision ENT: No dental problems, No hearing loss, No nasal symptoms, No problem reported, No see HPI, No sore throat, No tinnitus, No trouble swallowing, No unusual epistaxis Respiratory: No cough, No dyspnea at rest, No dyspnea on exertion, No hemoptysis, No problem reported, No see HPI, No shortness of breath, No sputum, No wheezing Cardiac: No PND, No chest pain, No claudication, No edema, No orthopnea, No palpitations, No problem reported, No see HPI Breast: No breast lump, No breast pain, No change in shape, No nipple discharge , No problem reported, No see HPI Abdomen: No GI bleeding, No constipation, No diarrhea, No nausea, No pain, No problem reported, No see HPI, No vomiting Musculoskeletal: No calf pain, No joint pain, No muscle pain, No problem reported, No see HPI, No swelling Male : No dysuria, No hematuria, No incontinence, No nocturia more than once/ night, No problem reported, No see HPI, No sexual dysfunction, No slowing stream , No urinary frequency Neurologic: + balance problems, + problem reported (drooling of saliva on left mouth angle), No memory loss, No numbness/tingling, No paralysis, No see HPI, No vertigo, No weakness Skin: No bleeding, No color change, No itch, No new/changing skin lesions, No problem reported, No rash, No see HPI Medications Current Inpatient Medications Medications (Trade) Dose Ordered Sig/Charly Route Start Time Stop Time Status Last Admin Dose Admin Acetaminophen (Tylenol Tab) 650 mg Q4H PRN PO 09/01/16 14:00 10/01/16 13:59 09/02/16 01:15 650 MG Al Hydrox/Mg Hydrox/Simethicone (Maalox Max Susp) 15 ml Q4H PRN PO 09/01/16 14:00 10/01/16 13:59 Magnesium Hydroxide (Milk Of Magnesia Susp) 30 ml Q12H PRN PO 09/01/16 14:00 10/01/16 13:59 Ondansetron HCl (Zofran Inj) 4 mg Q6H PRN IV 09/01/16 14:00 10/01/16 13:59 Polyethylene (Miralax Powder Packet) 17 gm DAILY PRN PO 09/01/16 14:00 10/01/16 13:59 Aspirin (Ecotrin Tab) 81 mg DAILY PO 09/02/16 09:00 10/02/16 08:59 09/02/16 08:14 81 MG Bupropion HCl (Wellbutrin Tab) 100 mg BID PO 09/01/16 21:00 10/01/16 20:59 09/02/16 08:11 100 MG Ferrous Sulfate (Feosol Tab) 325 mg HS PO 09/01/16 21:00 10/01/16 20:59 09/01/16 20:48 325 MG Finasteride (Proscar Tab) 5 mg QAM PO 09/02/16 09:00 10/02/16 08:59 09/02/16 08:15 5 MG Folic Acid (Folvite Tab) 1 mg QAM PO 09/02/16 09:00 10/02/16 08:59 09/02/16 08:15 1 MG Metoclopramide HCl (Reglan Tab) 10 mg Q8H PO 09/01/16 14:00 10/01/16 13:59 09/02/16 05:48 10 MG Pantoprazole Sodium (Protonix Tab) 40 mg DAILY PO 09/02/16 09:00 10/02/16 08:59 09/02/16 08:12 40 MG Potassium Chloride (Klor-Con Tab) 20 meq BID PO 09/01/16 21:00 10/01/16 20:59 09/02/16 08:53 20 MEQ Ranitidine HCl (zANTac TAB) 300 mg HS PO 09/01/16 21:00 10/01/16 20:59 09/01/16 20:48 300 MG Senna (Senokot Tab) 8.6 mg BID PO 09/01/16 21:00 10/01/16 20:59 09/02/16 08:14 8.6 MG Simvastatin (Zocor Tab) 40 mg QPM PO 09/01/16 21:00 10/01/16 20:59 09/01/16 20:49 40 MG Tamsulosin HCl (Flomax Cap) 0.4 mg QAM PO 09/02/16 09:00 10/02/16 08:59 09/02/16 08:13 0.4 MG Tiotropium [place] (Spiriva Handihaler Inhaler) 1 puff DAILY INH 09/02/16 09:00 10/02/16 08:59 09/02/16 08:11 1 PUFF Warfarin Sodium (Coumadin Tab) 5 mg SuMoWeFrSa@1600 PO 09/02/16 16:00 10/02/16 15:59 Warfarin Sodium (Coumadin Tab) 2.5 mg TuTh@1600 PO 09/01/16 16:00 10/01/16 15:59 09/01/16 16:15 2.5 MG Cholecalciferol (Vitamin D Tab) 800 inter.unit DAILY PO 09/02/16 09:00 10/02/16 08:59 09/02/16 08:12 800 INTER.UNIT Docusate Sodium (coLACE CAP) 100 mg BID PO 09/01/16 21:00 10/01/16 20:59 09/02/16 08:14 100 MG Miscellaneous Information (Pharmacist Discharge Med Rec Consult) 1 ea UD PRN N/A 09/01/16 14:15 10/01/16 14:14 Albuterol/ Ipratropium (Duoneb) 3 ml QIDR INH 09/01/16 16:00 10/01/16 15:59 09/02/16 07:13 3 ML Ioversol (Optiray 320) 100 ml UD PRN IV 09/01/16 14:15 09/05/16 14:14 Albuterol/ Ipratropium (Duoneb) 3 ml Q2H PRN INH 09/01/16 14:45 10/01/16 14:44 Oxycodone HCl (Oxycontin Tab) 10 mg Q12@0600,1800 PO 09/01/16 19:00 09/15/16 18:59 09/02/16 05:47 10 MG Objective Vital Signs Date Time Temp Pulse Resp B/P Pulse Ox O2 Delivery O2 Flow Rate FiO2 09/02/16 08:00 Room Air 09/02/16 07:13 69 16 96 Room Air 09/02/16 07:12 36.3 69 20 127/81 96 Room Air 09/02/16 04:25 36.5 66 18 107/67 96 2.0 09/02/16 04:00 Nasal Cannula 3.0 09/02/16 02:26 80 18 94 Room Air 09/02/16 00:00 Nasal Cannula 3.0 09/01/16 23:41 36.3 73 18 114/69 95 3.0 09/01/16 22:30 68 16 131/80 94 Room Air 09/01/16 21:57 81 94 09/01/16 20:00 Room Air 09/01/16 19:13 36.4 67 18 101/64 91 Room Air 09/01/16 16:00 Room Air 09/01/16 15:38 36.4 77 18 133/82 95 Room Air 09/01/16 15:01 64 18 120/59 95 Room Air 09/01/16 13:09 67 18 102/69 95 Room Air 09/01/16 12:14 94 Room Air 09/01/16 11:36 64 16 112/72 94 Room Air 09/01/16 10:32 95 Room Air 09/01/16 10:29 63 Physical Exam General Appearance: WD/WN, no apparent distress Eyes: normal inspection, EOMI ENT: normal ENT inspection, hearing grossly normal Neck: supple Respiratory/Chest: chest non-tender, lungs clear, normal breath sounds, no respiratory distress, no accessory muscle use Cardiovascular: no edema, no gallop, no JVD, no murmur Abdomen: normal bowel sounds, non tender, soft, no organomegaly Extremities: normal range of motion, non-tender, normal inspection, no pedal edema, no calf tenderness Neurologic/Psychiatric: technical internship II-XII nml as tested, no motor/sensory deficits, alert, normal mood/affect, oriented x 3, + pertinent finding (minimal weakness in left arm) Skin: normal color, warm/dry, no rash Laboratory Results Last 24 Hours Test 09/01/16 10:26 09/01/16 10:31 09/01/16 10:32 09/01/16 14:59 White Blood Count 7.62 K/uL Red Blood Count 4.49 M/uL Hemoglobin 13.5 g/dL Hematocrit 40.5 % Mean Corpuscular Volume 90.2 fL Mean Corpuscular Hemoglobin 30.1 pg Mean Corpuscular Hemoglobin Concent 33.3 g/dl Platelet Count 314 K/uL Mean Platelet Volume 9.7 fL Neutrophils (%) (Auto) 57.0 % Lymphocytes (%) (Auto) 26.9 % Monocytes (%) (Auto) 8.0 % Eosinophils (%) (Auto) 6.7 % Basophils (%) (Auto) 0.5 % Neutrophils # (Auto) 4.34 K/uL Lymphocytes # (Auto) 2.05 K/uL Monocytes # (Auto) 0.61 K/uL Eosinophils # (Auto) 0.51 K/uL Basophils # (Auto) 0.04 K/uL RDW Standard Deviation 43.3 fL RDW Coefficient of Variation 13.3 % Immature Granulocyte % (Auto) 0.9 % Immature Granulocyte # (Auto) 0.07 K/uL Prothrombin Time 28.5 SECONDS Prothromb Time International Ratio 2.6 Activated Partial Thromboplast Time 34.8 SECONDS Partial Thromboplastin Ratio 1.3 Sodium Level 137 mmol/L Potassium Level 4.3 mmol/L Chloride Level 101 mmol/L Carbon Dioxide Level 27 mmol/L Anion Gap 9.0 mmol/L Blood Urea Nitrogen 13 mg/dl Creatinine 0.94 mg/dl Est Creatinine Clear Calc Drug Dose 85.2 ml/min Estimated GFR () 94.2 Estimated GFR (Non- 81.2 BUN/Creatinine Ratio 13.4 Random Glucose 98 mg/dl Estimated Average Glucose 123 mg/dl Hemoglobin A1c 5.9 % Calcium Level 9.0 mg/dl Total Creatine Kinase 219 U/L Creatine Kinase MB 7.1 ng/ml Creatine Kinase MB Ratio 3.2 Troponin I < 0.015 ng/ml Pro-B-Type Natriuretic Peptide 436 pg/ml Bedside Prothrombin Time INR 3.1 Bedside Glucose 92 mg/dl Vitamin B12 Level 852 pg/mL Folate > 24.00 ng/mL Test 09/02/16 05:53 09/02/16 10:12 White Blood Count 6.49 K/uL Red Blood Count 4.28 M/uL Hemoglobin 13.2 g/dL Hematocrit 39.0 % Mean Corpuscular Volume 91.1 fL Mean Corpuscular Hemoglobin 30.8 pg Mean Corpuscular Hemoglobin Concent 33.8 g/dl Platelet Count 267 K/uL Mean Platelet Volume 9.9 fL Neutrophils (%) (Auto) 54.6 % Lymphocytes (%) (Auto) 28.4 % Monocytes (%) (Auto) 8.9 % Eosinophils (%) (Auto) 7.2 % Basophils (%) (Auto) 0.3 % Neutrophils # (Auto) 3.54 K/uL Lymphocytes # (Auto) 1.84 K/uL Monocytes # (Auto) 0.58 K/uL Eosinophils # (Auto) 0.47 K/uL Basophils # (Auto) 0.02 K/uL RDW Standard Deviation 44.2 fL RDW Coefficient of Variation 13.4 % Immature Granulocyte % (Auto) 0.6 % Immature Granulocyte # (Auto) 0.04 K/uL Prothrombin Time 23.1 SECONDS Prothromb Time International Ratio 2.1 Sodium Level 136 mmol/L Potassium Level 4.1 mmol/L Chloride Level 102 mmol/L Carbon Dioxide Level 26 mmol/L Anion Gap 8.0 mmol/L Blood Urea Nitrogen 17 mg/dl Creatinine 1.10 mg/dl Est Creatinine Clear Calc Drug Dose 71.2 ml/min Estimated GFR () 77.9 Estimated GFR (Non- 67.2 BUN/Creatinine Ratio 15.0 Random Glucose 97 mg/dl Calcium Level 8.9 mg/dl Magnesium Level 2.4 mg/dl Troponin I < 0.015 ng/ml Pro-B-Type Natriuretic Peptide 494 pg/ml Triglycerides Level 531 mg/dl Cholesterol Level 187 mg/dl HDL Cholesterol 34 mg/dl LDL Cholesterol, Calculated mg/dl VLDL Cholesterol, Calculated mg/dl Cholesterol/HDL Ratio 5.5 Thyroid Stimulating Hormone (TSH) 1.580 uIu/ml Assessment and Plan 71-year old right-handed male with PMH of [place], cardiac arrest S/P AICD (October of 2010), GERD (p/o Khari fundoplication), BPH (p/o prostate reduction surgery ), DVT and pulmonary embolism, diverticulosis, 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 Assessment: Ataxia/minmal left facial droop/minimal left sided weakness: likely acute CVA, can not have MRI but maybe repeat of CT with contrast tomorrow can be more informative , consukt Dr. Bishop obtain carotid US Lipids check showed very high Tgs will recheck tomorrow continue lipitor and ASA permissive HTN (hold BP meds) Tingling in face/ neuropathy in lower Ext: b12 was normal, check TSH, RPR , check HgbA1C Fatigue: Will check TSH. Afib: continue anticoagulation: Will continue Coumadin home dosing with adjustments per clinical pharmacy recommendation. Continue home meds as tolerated. except BP meds as mentioned above
--- NOTE | 2016-09-02 10:35 | Medical Student: [facility] ---
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 The patient reports the symptoms started this past Wednesday (08/30/16), although in reviewing his charts it appears these symptoms have been ongoing for a longer period of time. He states that he feels "dizzy, and sometimes the room spins. I just have a hard time keeping myself up.". He noted that his symptoms were really significant at taoism this past Wednesday when he closed his eyes to pray while standing. He had to immediately sit down. The symptoms have been progressively getting worse throughout the week. The patient had a followup appointment with the heart-failure clinic on 09/01/16 in the morning who referred him to his PCP office to be evaluated for his symptoms. He was seen in the walk-in clinic at his PCP's office where the provider recommended he report to the ED for evaluation and workup. In the emergency department, the patient had a CT-scan of the head to assess for stroke. No acute stroke was present at this time, although there was an abnormality seen in the right head of the caudate which the radiologist noted to likely be artifact. The patient's CXR in the ED demonstrated a consolidation in the left lower lobe. EKG was normal at this time. Pulmonary embolism was considered by the ED attending but was deferred at that time. The patient had some nausea in the ED but was otherwise comfortable. It was decided to admit the patient to the hospital for workup of his dizziness/numbness and evaluation of potential pneumonia. Since admission to the hospital, the patient reports his symptoms have generally improved. The only instance of acute facial numbness and dizziness occurred last evening (09/01/16) about 20 minutes after taking his evening medications. The symptoms have resolved since waking up this evening. The patient denies any other complaints at this time. Past Medical/Surgical History Medical Problems: (1) Abdominal pain, left lower quadrant Status: Acute (2) Anticoagulated on Coumadin Status: Acute (3) Biliary colic Status: Acute (4) BPH (benign prostatic hypertrophy) Status: Chronic (5) CVA (cerebral vascular accident) Status: Acute (6) Depression Status: Chronic (7) DVT (deep venous thrombosis) Status: Resolved (8) Dyspnea Status: Acute (9) Emphysema Status: Chronic (10) Intractable pain Status: Acute (11) Lightheaded Status: Acute (12) Macular degeneration Status: Chronic (13) NSTEMI (non-ST elevated myocardial infarction) Status: Acute (14) PE (pulmonary embolism) Status: Resolved (15) Peripheral neuropathy Status: Chronic (16) Sleep apnea Status: Chronic Surgical Problems: (1) AICD (automatic cardioverter/defibrillator) present Status: Chronic Family History Father: cancer (Cancer of unknown origin) Mother: coronary artery disease, pertinent history of (Heart valve disease) Social History Smoking Status: Former Smoker Drug Use: none Marital Status: Housing status: lives with family Occupational Status: retired Immunizations History of Influenza Vaccine: Yes Influenza Vaccine Date: Dec 29, 2010 History of Tetanus Vaccine?: Yes Tetanus Immunization Date: Oct 28, 2010 History of Pneumococcal: Yes Pneumococcal Date: Jan 28, 2011 History of Hepatitis B Vaccine: Yes Allergies Coded Allergies: BEE STING (Verified Allergy, Unknown, SWELLING, SOB, 09/01/16) Lidocaine (Verified Allergy, Unknown, RASH, 09/01/16) Penicillins (Verified Allergy, Unknown, SWELLING, DIFFICULTY BREATHING, 09/01/16) SWELLING Hydrocodone (Verified Adverse Reaction, Mild, nausea, 09/01/16) Oxycodone (Verified Adverse Reaction, Mild, nausea, 09/01/16) Medications Albuterol Hfa (Ventolin Hfa), 2-4 PUFFS INH Q6H Artificial Tear Ointment (Refresh Lacri-Lube), 1 DOSE OPB HS Aspirin (Aspirin 81), 81 MG PO DAILY Bumetanide (Bumex), 1 MG PO QAM Bupropion HCl (Bupropion HCl), 100 MG BID Carvedilol (Coreg), 25 MG PO QAM Carvedilol (Coreg), 12.5 MG PO QPM Cholecalciferol (Vitamin D3), 800 MG PO DAILY Docusate Sodium (Docusate Sodium), 100 MG PO BID Emollient (Lubriderm), 1 APPLN TOP Q8 Epinephrine (Epinephrine) Ferrous Sulfate (Ferrous Sulfate), 325 MG PO HS Finasteride (Proscar), 5 MG PO QAM Folic Acid (Folvite), 1 MG PO QAM Lisinopril (Zestril), 2.5 MG PO QAM Lisinopril (Lisinopril), 5 MG PO QPM Metoclopramide (Reglan), 10 MG PO Q8H Mometasone Furoate (Nasal) (Mometasone Furoate) Nystatin (Topical) (Nystatin) Oxycodone HCl (Oxycodone HCl ER), 10 MG PO Q12 Pantoprazole (Protonix), 40 MG PO AM/NOON Potassium Ext Rel (Klor-Con), 20 MEQ PO BID Ranitidine (Zantac), 300 MG PO HS Sennosides (Sennosides), 8.6 MG PO BID Simvastatin (Zocor), 40 MG PO QPM Tamsulosin Hcl (Flomax), 0.4 MG PO QAM Tiotropium Bison (Spiriva Handihaler), 1 CAP INH DAILY Warfarin Sod (Coumadin), 5 MG PO 5XWK Warfarin Sod (Jantoven), 2.5 MG PO 2XWK Review of Systems Constitutional: + problem reported (Dizziness/lightheaded), No chills, No fatigue, No fever, No sweats, No weakness, No weight loss Eyes: No diplopia, No eye pain, No worsening of vision ENT: No hearing loss, No sore throat, No unusual epistaxis Respiratory: + dyspnea on exertion, + shortness of breath Cardiovascular: + orthopnea Abdomen: + nausea Neurologic: + numbness/tingling (Legs below knees and hands), + vertigo Psychiatric: No anxiety, No depression symptoms, No insomnia Endocrine: No fatigue Hematologic / Lymphatic: + clotting problems (History of DVT and PE) Physical Exam Vital Signs (24 Hours) Date Time Temp Pulse Resp B/P Pulse Ox O2 Delivery O2 Flow Rate FiO2 09/02/16 07:13 69 16 96 Room Air 09/02/16 07:12 36.3 69 20 127/81 96 Room Air 09/02/16 04:25 36.5 66 18 107/67 96 2.0 09/02/16 04:00 Nasal Cannula 3.0 09/02/16 02:26 80 18 94 Room Air 09/02/16 00:00 Nasal Cannula 3.0 09/01/16 23:41 36.3 73 18 114/69 95 3.0 09/01/16 22:30 68 16 131/80 94 Room Air 09/01/16 21:57 81 94 09/01/16 20:00 Room Air 09/01/16 19:13 36.4 67 18 101/64 91 Room Air 09/01/16 16:00 Room Air 09/01/16 15:38 36.4 77 18 133/82 95 Room Air 09/01/16 15:01 64 18 120/59 95 Room Air 09/01/16 13:09 67 18 102/69 95 Room Air 09/01/16 12:14 94 Room Air 09/01/16 11:36 64 16 112/72 94 Room Air 09/01/16 10:32 95 Room Air 09/01/16 10:29 63 09/01/16 09:58 36.6 66 18 126/84 96 Room Air General Appearance: WD/WN, no apparent distress Head: normocephalic, + evidence of trama (Slight depression of the lateral right orbit from prior trauma) ENT: pharynx normal, + pertinent finding (Decreased hearing greater in right than left) Neck: supple, no adenopathy, no JVD, no carotid bruits, trachea midline Respiratory/Chest: chest non-tender, lungs clear, normal breath sounds, no respiratory distress, no accessory muscle use Cardiovascular: no edema, no gallop, no JVD, no murmur Extremities/Musculoskelatal: no pedal edema, normal range of motion Neurologic/Psych: + pertinent finding Skin: normal color, warm/dry, no rash Neuro Exam Mental Status Patient alert and oriented to person, time, and place. Affect and mood are appropriate. Thoughts appear clear and conversation is fluid. Motor Proximal and distal muscles of the upper and lower extremities are 5/5. 4/5 weakness of finger abduction is noted bilaterally. Prominent thenar muscle atrophy is noted in both hands. Motor tone, bulk, and strength are otherwise normal. Cranial Nerves II Pupils are 3mm bilaterally (constricted secondary to cataract surgery) and briskly reactive to light. Fundoscopic exam was difficult due to small pupils. III, IV, and EOMs are normal. No nystagmus or palsy is noted. V Sensation is decreased in the right lower face over the V2 distribution and superior regions of V3. Sensation is otherwise normal to pinprick and temperature. VII No facial droop is present. There is very slight flattening of the left labial fold on smiling. Eyebrows raise equally and no weakness is noted upon closing eyes. VIII Gross hearing is intact bilaterally although the patient reports decreased hearing on the right. The patient does usually wear hearing aids which were not in place during the exam. The patient reports decreased hearing in the right is normal for him. IX, X The palate elevates symmetrically and the uvula is located midline. There is no hoarseness. XI Shoulder shrug and head turning is 5/5 and equal bilaterally. XII The tongue protrudes to midline. The patient is able to move the tongue in all directions. Testing against the tongue the inside of the cheek demonstrated 5/5 strength. Sensation The patient has decreased sensation to light touch, pin prick, vibration, and temperature in his hands. Below the level of his knees the patient notes total absent of light touch, pin prick, temperature, and vibration. DTR's DTRs are 1/5 bilaterally in biceps, brachioradialis, triceps, and knee. Ankle jerk reflex is 0/5. Coordination The patient has no pronator drift. An intention tremor is noted in both hands on [id number] testing. This is normal for him. Heel to meade testing is normal. Rapid alternating movements of the hands are also normal. Gait/Stance The patient is able to sit up in bed. His gait is slow and narrow based. He is somewhat unsteady standing with his feet together in the romberg test position. Upon closing his eyes, he immediately begins to wobble. Romberg test is positive. Diagnostics Laboratory Results Results Past 24 Hours Test 09/01/16 10:26 09/01/16 10:31 09/01/16 10:32 09/01/16 14:59 Range/Units White Blood Count 7.62 4.8-10.8 K/uL Red Blood Count 4.49 4.7-6.1 M/uL Hemoglobin 13.5 14.0-18.0 g/dL Hematocrit 40.5 42-52 % Mean Corpuscular Volume 90.2 80-100 fL Mean Corpuscular Hemoglobin 30.1 25-34 pg Mean Corpuscular Hemoglobin Concent 33.3 32-36 g/dl Platelet Count 314 130-400 K/uL Mean Platelet Volume 9.7 7.4-10.4 fL Neutrophils (%) (Auto) 57.0 % Lymphocytes (%) (Auto) 26.9 % Monocytes (%) (Auto) 8.0 % Eosinophils (%) (Auto) 6.7 % Basophils (%) (Auto) 0.5 % Neutrophils # (Auto) 4.34 1.4-6.5 K/uL Lymphocytes # (Auto) 2.05 1.2-3.4 K/uL Monocytes # (Auto) 0.61 0.11-0.59 K/uL Eosinophils # (Auto) 0.51 0-0.5 K/uL Basophils # (Auto) 0.04 0-0.2 K/uL RDW Standard Deviation 43.3 36.4-46.3 fL RDW Coefficient of Variation 13.3 11.5-14.5 % Immature Granulocyte % (Auto) 0.9 % Immature Granulocyte # (Auto) 0.07 0.00-0.02 K/uL Prothrombin Time 28.5 9.0-12.0 SECONDS Prothromb Time International Ratio 2.6 0.9-1.1 Activated Partial Thromboplast Time 34.8 21.0-31.0 SECONDS Partial Thromboplastin Ratio 1.3 Sodium Level 137 136-145 mmol/L Potassium Level 4.3 3.5-5.1 mmol/L Chloride Level 101 98-107 mmol/L Carbon Dioxide Level 27 21-32 mmol/L Anion Gap 9.0 3-11 mmol/L Blood Urea Nitrogen 13 7-18 mg/dl Creatinine 0.94 0.60-1.40 mg/dl Est Creatinine Clear Calc Drug Dose 85.2 ml/min Estimated GFR () 94.2 Estimated GFR (Non- 81.2 BUN/Creatinine Ratio 13.4 10-20 Random Glucose 98 70-99 mg/dl Estimated Average Glucose 123 mg/dl Hemoglobin A1c 5.9 4.5-5.6 % Calcium Level 9.0 8.5-10.1 mg/dl Total Creatine Kinase 219 39-308 U/L Creatine Kinase MB 7.1 0.5-3.6 ng/ml Creatine Kinase MB Ratio 3.2 0-3.0 Troponin I < 0.015 0-0.045 ng/ml Pro-B-Type Natriuretic Peptide 436 0-900 pg/ml Bedside Prothrombin Time INR 3.1 0.9-1.1 Bedside Glucose 92 70-99 mg/dl Vitamin B12 Level 852 211-911 pg/mL Folate > 24.00 >5.38 ng/mL Test 09/02/16 05:53 Range/Units White Blood Count 6.49 4.8-10.8 K/uL Red Blood Count 4.28 4.7-6.1 M/uL Hemoglobin 13.2 14.0-18.0 g/dL Hematocrit 39.0 42-52 % Mean Corpuscular Volume 91.1 80-100 fL Mean Corpuscular Hemoglobin 30.8 25-34 pg Mean Corpuscular Hemoglobin Concent 33.8 32-36 g/dl Platelet Count 267 130-400 K/uL Mean Platelet Volume 9.9 7.4-10.4 fL Neutrophils (%) (Auto) 54.6 % Lymphocytes (%) (Auto) 28.4 % Monocytes (%) (Auto) 8.9 % Eosinophils (%) (Auto) 7.2 % Basophils (%) (Auto) 0.3 % Neutrophils # (Auto) 3.54 1.4-6.5 K/uL Lymphocytes # (Auto) 1.84 1.2-3.4 K/uL Monocytes # (Auto) 0.58 0.11-0.59 K/uL Eosinophils # (Auto) 0.47 0-0.5 K/uL Basophils # (Auto) 0.02 0-0.2 K/uL RDW Standard Deviation 44.2 36.4-46.3 fL RDW Coefficient of Variation 13.4 11.5-14.5 % Immature Granulocyte % (Auto) 0.6 % Immature Granulocyte # (Auto) 0.04 0.00-0.02 K/uL Prothrombin Time 23.1 9.0-12.0 SECONDS Prothromb Time International Ratio 2.1 0.9-1.1 Sodium Level 136 136-145 mmol/L Potassium Level 4.1 3.5-5.1 mmol/L Chloride Level 102 98-107 mmol/L Carbon Dioxide Level 26 21-32 mmol/L Anion Gap 8.0 3-11 mmol/L Blood Urea Nitrogen 17 7-18 mg/dl Creatinine 1.10 0.60-1.40 mg/dl Est Creatinine Clear Calc Drug Dose 71.2 ml/min Estimated GFR () 77.9 Estimated GFR (Non- 67.2 BUN/Creatinine Ratio 15.0 10-20 Random Glucose 97 70-99 mg/dl Calcium Level 8.9 8.5-10.1 mg/dl Magnesium Level 2.4 1.8-2.4 mg/dl Pro-B-Type Natriuretic Peptide 494 0-900 pg/ml Triglycerides Level 531 0-150 mg/dl Cholesterol Level 187 0-200 mg/dl HDL Cholesterol 34 mg/dl LDL Cholesterol, Calculated mg/dl VLDL Cholesterol, Calculated mg/dl Cholesterol/HDL Ratio 5.5 Thyroid Stimulating Hormone (TSH) 1.580 0.300-4.500 uIu/ml Impression Assessment and Plan Assessment In summary, the patient is a 71 year old gentleman presenting with progressive balance issues, numbness/tingling in his face, and shortness of breath on exertion. At this time, we cannot completely rule out an brain infarction, although it is unlikely given his neurologic exam isn't localizing. However, he does have significant risk factors including CAD, HTN, prior DVT's and pulmonary embolisms, and anticoagulation. A brain MRI would be ideal to evaluate for stroke, but isn't possible due to his AICD. His chest CT indicated that the right lower lobe consolidation on CXR is likely due to atelectasis rather than pneumonia. This is likely secondary to his CHF. The patient required an extra diuretic pill yesterday to treat extra swelling in his lower legs. Considering his worsening neuropathy, it is likely that his balance issues are secondary to his impaired proprioception from the neuropathy. This claim is further supported by his positive Romberg test and noting dizziness while closing his eyes and standing to pray at taoism. His facial numbness isn' t explained by any of his neurologic exam or history. At this time, it's recommended to check for presence of lyme's disease that may cause his facial numbness/tingling. Plan 1.) Repeat head CT to re-evaluate for stroke. At this time, any infarcts he had prior to admission should be visible. 2.) Draw labs to check electrolytes for sources of worsening neuropathy. Mg was not checked in his initial labs. 3.) Draw labs for lyme's disease. This seems unlikely, but may explain his facial numbness. 4.) Set patient up for physical therapy to improve his ambulatory status. He may require a more supportive cane/walker as his neuropathy progresses. 5.) Continue urging patient to keep up on his foot checks to prevent future ulcerations/infections. Level of Care Telemetry Advanced Directives Existing Living Will: Yes Existing Power of Health Information Coder: Yes DVT Prophylaxis warfarin (Coumadin)
[2016-09-02] MEDS: ATORVASTATIN 40 MG TAB PO SCH (11:41)
--- NOTE | 2016-09-02 12:16 | DIAGNOSTIC IMAGING REPORT ---
BILATERAL CAROTID DOPPLER STUDY HISTORY: ataxia, possible CVA COMPARISON: None. TECHNIQUE: Real-time, grayscale, and color Doppler sonography of the carotid arteries was performed. Imaging reviewed in the transverse and longitudinal planes. All measurements were calculated based on NASCET criteria. FINDINGS: Antegrade flow is seen in the bilateral vertebral arteries. Minimal plaque within the carotid bulbs. The peak systolic velocity within the right ICA is 56 cm/s. The right systolic ratio is 0.9. The peak systolic velocity within the left ICA is 52 cm/s. The left systolic ratio is 0.7. IMPRESSION: No hemodynamically significant stenosis seen within the carotid arteries. Electronically signed by: Lambert Hart M.D. 09/02/2016 12:15 PM Dictated Date/Time: 09/02/2016 12:12 PM
[2016-09-02] MEDS ORDERED: NURSING VERBAL MED ORDER ONE (14:45)
[2016-09-02] MEDS ORDERED: WARFARIN SOD 5 MG TAB PO SCH (16:00)
--- NOTE | 2016-09-02 18:30 | ECHOCARDIOGRAM REPORT ---
*NOTICE TO RECEIVING REPUBLICAN AGENCY This information is strictly Confidential and protected under [place] law. [place] law prohibits you from making any further disclosure of this information unless further disclosure is expressly permitted by the written consent of the person to whom it pertains or is authorized by law. A general authorization for the release of medical or other information is not sufficient for this purpose. Hospital accepts no responsibility if the information is made available to any other person, INCLUDING THE PATIENT. Interpretation Summary * Name: ZIGGY DEUTSCH Study Date: 09/02/2016 10:05 AM BP: 127/81 mmHg * Patient Location: [facility]\S\[id number]\S\2 HR: 67 * : 1945 (M/d/yyyy) Gender: Male Height: 71 in * Age: 71 yrs Ethnicity: [place] Weight: 211 lb * Ordering Physician: Fabio Arriola * Referring Physician: Self, Referred * Performed By: Sravani Sanchez [facility] * * Reason For Study: CVA * BSA: 2.2 m2 * -- Conclusions -- * 1. Normal LV size. Mild concentric LVH. * 2. Mild LV dysfunction. LVEF 45-50%. Inferior wall akinesis. Posterior wall severe hypokinesis. * 3. RV not well visualized. Grossly normal size and function. * 4. Grade II diastolic dysfunction. * 5. No significant valvular pathology. * 6. Compared with prior study on 06/13/2015: No significant changes. Procedure Details * A complete two-dimensional transthoracic echocardiogram was performed (2D, M-mode, Doppler and color flow Doppler). * A saline contrast injection was performed to assess for cardiac shunting. * The injection was performed through an intravenous line in the right arm. * The attending nurse who injected the saline contrast was PAULA MORTON RN. * A total of 10 cc of agitated saline was given. Left Ventricle * The left ventricle is grossly normal size. * There is mild concentric left ventricular hypertrophy. * Ejection Fraction = 45-50%. * There is inferior wall akinesis. * There is severe posterior wall hypokinesis. Right Ventricle * The right ventricle is not well visualized. * The right ventricle is grossly normal size. * The right ventricular systolic function is qualitatively normal. Atria * The left atrium is mildly dilated. * Right atrium not well visualized. * Injection of contrast documented no interatrial shunt. Mitral Valve * The mitral valve is grossly normal. * There is no mitral valve stenosis. * There is trace mitral regurgitation. Tricuspid Valve * The tricuspid valve is not well visualized. * Significant tricuspid regurgitation is absent. Aortic Valve * The aortic valve opens well. * The aortic valve is trileaflet. * No hemodynamically significant valvular aortic stenosis. * There is no significant aortic regurgitation. Pulmonic Valve * The pulmonic valve is not well visualized. * Pulmonic stenosis is absent. * There is no significant pulmonary regurgitation. Great Vessels * The aortic root and proximal ascending aorta are normal sized. Pericardium/Pleural * There is no pericardial effusion. Left Ventricular Diastolic Function * Diastolic dysfunction, Grade II (pseudonormalization pattern). MMode 2D Measurements and Calculations IVSd 1.4 cm IVSs 1.3 cm LVIDd 4.3 cm LVIDs 4.6 cm LVPWd 1.4 cm LVPWs 1.4 cm IVS/LVPW 0.96 FS -6.65 % EDV(Teich) 84.1 ml ESV(Teich) 97.8 ml EF(Teich) -16.34 % EDV(cubed) 80.7 ml ESV(cubed) 97.9 ml EF(cubed) -21.32 % % IVS thick -5.69 % % LVPW thick -3.08 % LV mass(C)d 229.7 grams LV mass(C)dI 106.5 grams/m\S\2 LV mass(C)s 236.8 grams LV mass(C)sI 109.8 grams/m\S\2 SV(Teich) -13.74 ml SI(Teich) -6.37 ml/m\S\2 SV(cubed) -17.21 ml SI(cubed) -7.98 ml/m\S\2 Ao root diam 3.9 cm Ao root area 12.1 cm\S\2 LA dimension 4.4 cm LA/Ao 1.1 LVOT diam 2.1 cm LVOT area 3.3 cm\S\2 Doppler Measurements and Calculations MV E max geeta 86.3 cm/sec MV A max geeta 58.2 cm/sec MV E/A 1.5 MV P1/2t max geeta 88.0 cm/sec MV P1/2t 141.1 msec MVA(P1/2t) 1.6 cm\S\2 MV dec slope 182.7 cm/sec\S\2 MV dec time 0.25 sec Ao V2 max 120.4 cm/sec Ao max PG 5.8 mmHg Ao max PG (full) 2.2 mmHg ELLEN(V,A) 2.6 cm\S\2 ELLEN(V,D) 2.6 cm\S\2 LV V1 max PG 3.6 mmHg LV V1 max 95.2 cm/sec MR max geeta 416.7 cm/sec MR max PG 69.4 mmHg PA V2 max 96.5 cm/sec PA max PG 3.7 mmHg
[2016-09-02 18:31] LABS: URINE APPEARANCE CLEAR (CLEAR); URINE BILIRUBIN NEG (NEG); URINE COLOR YELLOW; URINE NITRITE NEG (NEG); URINE PH 6.5 (4.5-7.5); URINE SPECIFIC GRAVITY 1.009 (1.000-1.030); UROBILINOGEN NEG (NEG)
[2016-09-02 18:35] LABS: MANUAL MICROSCOPIC REQUIRED? NO; REVIEW REQ? YES
[2016-09-02] MEDS: FERROUS SULFATE 325 MG TAB PO SCH (20:42)
[2016-09-02] MEDS: RANITIDINE HCL 150 MG TAB PO SCH (20:43)
[2016-09-03] VITALS (7 sets, daily range): BP systolic 117–121; BP diastolic 73–76; PULSE 68–88; TEMP 36.4–36.5; O2SAT 94–96
[2016-09-03] MEDS: OXYCODONE HCL 10 MG TABCR (OXYCONTIN) PO SCH (05:34)
[2016-09-03] MEDS: METOCLOPRAMIDE HCL 10 MG TAB PO SCH ×2 (05:34→14:03)
[2016-09-03] MEDS: ALBUT/IPRATROP 3MG/0.5MG NEB 3 ML VIAL INH SCH ×3 (07:15→11:21)
[2016-09-03 07:40] LABS: INR 1.9 (0.9-1.1)
--- NOTE | 2016-09-03 07:58 | Clinical Documentation Query ---
CLINICAL DOCUMENTATION QUERY 71 year old male with hx of CAD, CHF, and AICD who presents for stroke workup. H&P make mention of a PMHX of CHF, unspecified. The medical record documentation is now expected to include definitive and explicit description of the patient's heart failure; vague terms such as "heart failure," ventricular dysfunction," and "CHF" may not fully capture the physician's intended level of severity. In your clinical opinion is this patient being managed for: ( X ) Chronic systolic (reduced EF) heart failure ( ) Other explanation of clinical findings (Please Explain) ( ) Unable to determine (Please Define) ( ) Need to Discuss ( ) Not Agree The medical record reflects the following clinical findings, treatment, and risk factors. Clinical Indicators: CHF per H&P. Echo from 09/13/12 showed EF of 40-45% with hypokinetic and akinetic wall motion and grade I diastolic dysfunction. Treatment: Telemetry, I/O's, daily weights, Risk Factors: Age, CAD, HTN, [place] Please clarify and document your clinical opinion in the progress notes and discharge summary. Terms such as "probable", "suspected", "likely", "questionable", "possible", or "still to be ruled out" are acceptable. IF IN AGREEMENT, YOU MUST DOCUMENT ABOVE DIAGNOSTIC STATEMENT IN DAILY PROGRESS NOTES AND DISCHARGE SUMMARY. This document is not part of the patient's record. Thank You, Andrae Gudino, RN [phone]
[2016-09-03] MEDS: DOCUSATE SODIUM 100 MG CAP PO SCH (08:10)
[2016-09-03] MEDS: CHOLECALCIFEROL 400 INTER.UNIT TAB PO SCH (08:10)
[2016-09-03] MEDS: ASPIRIN 81 MG ECTAB PO SCH (08:10)
[2016-09-03] MEDS: SENNA 8.6 MG TAB PO SCH (08:11)
[2016-09-03] MEDS: ATORVASTATIN 40 MG TAB PO SCH (08:11)
[2016-09-03] MEDS: TAMSULOSIN HCL 0.4 MG CAP PO SCH (08:12)
[2016-09-03] MEDS: POTASSIUM CHLORIDE 20 MEQ TABCR PO SCH (08:12)
[2016-09-03] MEDS: PANTOprazole SOD 40 MG TAB PO SCH (08:12)
[2016-09-03] MEDS: FINASTERIDE 5 MG TAB PO SCH (08:12)
[2016-09-03] MEDS: TIOTROPIUM BROMIDE 5 PUFF/90 MCG INH INH SCH (08:13)
--- NOTE | 2016-09-03 11:16 | DIAGNOSTIC IMAGING REPORT ---
HEAD CT NONCONTRAST CT DOSE: 537.48 mGy.cm HISTORY: Mental status change. ataxia TECHNIQUE: Multiaxial CT images of the head were performed without the use of intravenous contrast. Comparison: 09/01/2016 Findings: The paranasal sinuses and mastoid air cells are clear. The calvarium and skull base are intact. The ventricles and sulci are within normal limits. There is no mass, hematoma, midline shift, or acute infarct. Impression: No acute intracranial abnormality. Electronically signed by: Junior Rosas M.D. 09/03/2016 11:14 AM Dictated Date/Time: 09/03/2016 11:13 AM
--- NOTE | 2016-09-03 11:22 | Neurology Progress Notes ---
Neurology Progress Note Date of Service September 03, 2016. Subjective Patient is stable and has known further pain, weakness, or numbness. He is is not dizzy. He has only slight facial tingling and this is improved compared to yesterday. Objective Date Time Temp Pulse Resp B/P Pulse Ox O2 Delivery O2 Flow Rate FiO2 09/03/16 11:19 36.5 86 18 121/73 94 Room Air 09/03/16 08:00 Room Air 09/03/16 07:49 36.5 79 20 117/74 95 Room Air 09/03/16 07:15 74 16 95 Room Air 09/03/16 04:00 CPAP 09/03/16 03:23 36.4 68 18 117/76 96 BiPAP 09/03/16 00:00 CPAP 09/02/16 23:20 36.6 72 18 120/78 93 CPAP 09/02/16 20:00 91 Room Air CPAP 09/02/16 19:28 74 16 92 Room Air 09/02/16 19:26 37.0 84 20 102/63 94 Room Air 09/02/16 16:00 91 Room Air CPAP 09/02/16 15:46 36.6 69 18 99/59 91 Room Air 09/02/16 14:58 69 16 98 Room Air 09/02/16 13:10 76 94 09/02/16 12:07 36.2 65 18 100/61 91 Room Air 09/02/16 12:00 Room Air Last 24 Hours Test 09/02/16 18:05 09/03/16 06:50 09/03/16 09:50 Urine Color YELLOW Urine Appearance CLEAR Urine pH 6.5 Urine Specific [place] 1.009 Urine Protein NEG Urine Glucose (UA) NEG Urine Ketones NEG Urine Occult Blood 3+ Urine Nitrite NEG Urine Bilirubin NEG Urine Urobilinogen NEG Urine Leukocyte Esterase MODERATE Urine WBC (Auto) 10-30 /hpf Urine RBC (Auto) 10-30 /hpf Urine Hyaline Casts (Auto) 1-5 /lpf Urine Epithelial Cells (Auto) 5-10 /lpf Urine Bacteria (Auto) 1+ Prothrombin Time 21.0 SECONDS Prothromb Time International Ratio 1.9 Exam: He is awake and alert. Speech is without aphasia or dysarthria. Mood and affect are normal and appropriate. Thought processes are intact. Strength is symmetrical as before. Coordination is normal as before Current Inpatient Medications Medications (Trade) Dose Ordered Sig/Charly Route Start Time Stop Time Status Last Admin Dose Admin Acetaminophen (Tylenol Tab) 650 mg Q4H PRN PO 09/01/16 14:00 10/01/16 13:59 09/02/16 01:15 650 MG Al Hydrox/Mg Hydrox/Simethicone (Maalox Max Susp) 15 ml Q4H PRN PO 09/01/16 14:00 10/01/16 13:59 Magnesium Hydroxide (Milk Of Magnesia Susp) 30 ml Q12H PRN PO 09/01/16 14:00 10/01/16 13:59 Ondansetron HCl (Zofran Inj) 4 mg Q6H PRN IV 09/01/16 14:00 10/01/16 13:59 Polyethylene (Miralax Powder Packet) 17 gm DAILY PRN PO 09/01/16 14:00 10/01/16 13:59 Aspirin (Ecotrin Tab) 81 mg DAILY PO 09/02/16 09:00 10/02/16 08:59 09/03/16 08:10 81 MG Ferrous Sulfate (Feosol Tab) 325 mg HS PO 09/01/16 21:00 10/01/16 20:59 09/02/16 20:42 325 MG Finasteride (Proscar Tab) 5 mg QAM PO 09/02/16 09:00 10/02/16 08:59 09/03/16 08:12 5 MG Folic Acid (Folvite Tab) 1 mg QAM PO 09/02/16 09:00 10/02/16 08:59 09/03/16 08:11 1 MG Metoclopramide HCl (Reglan Tab) 10 mg Q8H PO 09/01/16 14:00 10/01/16 13:59 09/03/16 05:34 10 MG Pantoprazole Sodium (Protonix Tab) 40 mg DAILY PO 09/02/16 09:00 10/02/16 08:59 09/03/16 08:12 40 MG Potassium Chloride (Klor-Con Tab) 20 meq BID PO 09/01/16 21:00 10/01/16 20:59 09/03/16 08:12 20 MEQ Ranitidine HCl (zANTac TAB) 300 mg HS PO 09/01/16 21:00 6/8/17 20:59 09/02/16 20:43 300 MG Senna (Senokot Tab) 8.6 mg BID PO 09/01/16 21:00 10/01/16 20:59 09/03/16 08:11 8.6 MG Tamsulosin HCl (Flomax Cap) 0.4 mg QAM PO 09/02/16 09:00 10/02/16 08:59 09/03/16 08:12 0.4 MG Tiotropium [place] (Spiriva Handihaler Inhaler) 1 puff DAILY INH 09/02/16 09:00 10/02/16 08:59 09/03/16 08:13 1 PUFF Warfarin Sodium (Coumadin Tab) 5 mg SuMoWeFrSa@1600 PO 09/02/16 16:00 10/02/16 15:59 09/02/16 15:31 5 MG Warfarin Sodium (Coumadin Tab) 2.5 mg TuTh@1600 PO 09/01/16 16:00 10/01/16 15:59 09/01/16 16:15 2.5 MG Cholecalciferol (Vitamin D Tab) 800 inter.unit DAILY PO 09/02/16 09:00 10/02/16 08:59 09/03/16 08:10 800 INTER.UNIT Docusate Sodium (coLACE CAP) 100 mg BID PO 09/01/16 21:00 10/01/16 20:59 09/03/16 08:10 100 MG Miscellaneous Information (Pharmacist Discharge Med Rec Consult) 1 ea UD PRN N/A 09/01/16 14:15 10/01/16 14:14 Albuterol/ Ipratropium (Duoneb) 3 ml QIDR INH 09/01/16 16:00 10/01/16 15:59 09/03/16 07:15 3 ML Ioversol (Optiray 320) 100 ml UD PRN IV 09/01/16 14:15 09/05/16 14:14 Albuterol/ Ipratropium (Duoneb) 3 ml Q2H PRN INH 09/01/16 14:45 10/01/16 14:44 Oxycodone HCl (Oxycontin Tab) 10 mg Q12@0600,1800 PO 09/01/16 19:00 09/15/16 18:59 09/03/16 05:34 10 MG Atorvastatin Calcium (Lipitor Tab) 80 mg QAM PO 09/02/16 10:34 10/02/16 10:33 09/03/16 08:11 80 MG Bupropion HCl (Wellbutrin Tab) 100 mg BID@0900,1400 PO 09/02/16 15:30 10/02/16 15:29 09/03/16 08:11 100 MG Impression 1. Balance problems. His progressive balance problems are twofold: a. 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 He has a significant sensory ataxia from this. b. His poor vision bilaterally as to his balance problems as he doesn't get the visual cues he needs to keep his balance with his neuropathy. The polyneuropathy is progressing over time. 2. Bilateral facial tingling. This seems to be improving and I'm not certain what is causing this. He does not seem to have a stroke on examination. 3. Easy fatigability 4. Mild action tremor bilaterally Plan 1. Repeat CT scan of the head without contrast 2. Consider physical occupational therapy and rehabilitation hospital stay. 3. I could do an EMG and nerve conduction study of one arm and leg (as an outpatient), but I'm not sure this is going to change our treatment plan. 4. I have no medication for neuropathy. If there is pain we could consider medication. He has tried multiple pain medicines and fortunately his pain is under fairly good control now.
--- NOTE | 2016-09-03 13:11 | Discharge Instructions ---
Discharge Instructions Date of Service September 03, 2016. Admission Reason for Admission: Balance Problem Discharge Discharge Diagnosis / Problem: Ataxia Discharge Goals Goal(s): Decrease discomfort, Improve function, Increase independence, Improve disease control, Learn about illness, Diagnostic testing, Prevent Disease Progression Activity Recommendations Activity Limitations: resume your previous activity Exercise/Sports Limitations: none Shower/Bathe: no limitations . Instructions / Follow-Up Instructions / Follow-Up Patient to be discharged home with home health No stroke or lesions noted on Cat scan of head Would recommend low cholesterol diet as levels were increased Prescription for rolling walker on discharge Follow up with Dr Peterson in 1-2 weeks Current Hospital Diet Patient's current hospital diet: AHA Diet (Heart Healthy) Discharge Diet Recommended Diet: AHA Diet (Heart Healthy), Low Fat Diet Pending Studies Studies pending at discharge: no Laboratory Results Hemoglobin A1c Test 09/01/16 10:26 Range/Units Estimated Average Glucose 123 mg/dl Hemoglobin A1c 5.9 H 4.5-5.6 % Lipid Panel Test 09/02/16 05:53 Range/Units Triglycerides Level 531 H 0-150 mg/dl Cholesterol Level 187 0-200 mg/dl HDL Cholesterol 34 mg/dl Cholesterol/HDL Ratio 5.5 LDL Cholesterol, Calculated mg/dl Medical Emergencies . Who to Call and When: Medical Emergencies: If at any time you feel your situation is an emergency, please call 911 immediately. . Non-Emergent Contact Non-Emergency issues call your: Primary Care Provider Call Non-Emergent contact if: you have any medication questions (balance or gait abnormalities) . . "Provider Documentation" section prepared by Nnamdi Leavitt. . VTE Core Measure Inpt VTE Proph given/why not?: Warfarin (Coumadin)
[2016-09-03 14:06] LABS: LYME DISEASE AB IGM NEG (NEG)
[2016-09-03 14:09] LABS: LYME DISEASE AB IGG NEG (NEG)
--- NOTE | 2016-09-03 14:55 | Discharge Summary ---
Discharge Summary Date of Service September 03, 2016. Discharge Summary Admission Date: September 01, 2016 at 13:57 Discharge Date: September 03, 2016 Discharge Disposition: Home with services Principal Diagnosis: Gait dysfunction, facial droop Problems/Secondary Diagnoses: (1) AICD (automatic cardioverter/defibrillator) present Status: Chronic (2) BPH (benign prostatic hypertrophy) Status: Chronic (3) Depression Status: Chronic (4) Emphysema Status: Chronic (5) Macular degeneration Status: Chronic (6) Peripheral neuropathy Status: Chronic (7) Sleep apnea Status: Chronic Immunizations: Have You Had Influenza Vaccine: Yes Influenza Vaccine Date: Dec 29, 2010 History of Tetanus Vaccine?: Yes Tetanus Immunization Date: Oct 28, 2010 History of Pneumococcal: Yes Pneumococcal Date: Jan 28, 2011 History of Hepatitis B Vaccine: Yes Consultations: Neurology Medication Reconciliation Continued Medications: Albuterol Hfa (Ventolin Hfa) 200 Puffs/37901 Mcg Aers 2-4 PUFFS INH Q6H, #1 INHALER Artificial Tear Ointment (Refresh Lacri-Lube) 1 Oin Oin 1 DOSE OPB HS Aspirin (Aspirin 81) 81 Mg Tab 81 MG PO DAILY Bumetanide (Bumex) 1 Mg Tab 1 MG PO QAM for 90 Days, #90 TAB 1 Refill Bupropion HCl (Bupropion HCl) 100 Mg Tab 100 MG BID Carvedilol (Coreg) 25 Mg Tab 25 MG PO QAM, TAB Carvedilol (Coreg) 25 Mg Tab 12.5 MG PO QPM, TAB Cholecalciferol (Vitamin D3) 400 Unit Cap 800 MG PO DAILY Docusate Sodium (Docusate Sodium) 100 Mg Tab 100 MG PO BID Emollient (Lubriderm) 1 Lot Lot 1 APPLN TOP Q8 Epinephrine (Epinephrine) 0.3 Mg/0.3 Ml Inj Ferrous Sulfate (Ferrous Sulfate) 325 Mg Tab 325 MG PO HS TAKE WITH FOOD Finasteride (Proscar) 5 Mg Tab 5 MG PO QAM Folic Acid (Folvite) 1 Mg Tab 1 MG PO QAM, TAB Lisinopril (Zestril) 5 Mg Tab 2.5 MG PO QAM, TAB Lisinopril (Lisinopril) 5 Mg Tab 5 MG PO QPM Metoclopramide (Reglan) 10 Mg Tab 10 MG PO Q8H, #6 TAB NAUSEA Mometasone Furoate (Nasal) (Mometasone Furoate) 50 Mcg/Act Spr Nystatin (Topical) (Nystatin) 1 Pow Pow Oxycodone HCl (Oxycodone HCl ER) 10 Mg Tab 10 MG PO Q12 Pantoprazole (Protonix) 40 Mg Tab 40 MG PO AM/NOON, TAB Potassium Ext Rel (Klor-Con) 20 Meq Tabcr 20 MEQ PO BID, TAB Ranitidine (Zantac) 150 Mg Tab 300 MG PO HS, 0 Refills Sennosides (Sennosides) 8.6 Mg Tab 8.6 MG PO BID Simvastatin (Zocor) 80 Mg Tab 40 MG PO QPM, TAB Tamsulosin Hcl (Flomax) 0.4 Mg Cap 0.4 MG PO QAM, CAP Tiotropium [place] (Spiriva Handihaler) 30 Puff/540 Mcg Aerp 1 CAP INH DAILY, INHALER Warfarin Sod (Coumadin) 5 Mg Tab 5 MG PO 5XWK takes on wednesday, wednesday, wednesday, wednesday and wednesday - can restart in 3-5 days if urine clear Warfarin Sod (Jantoven) 5 Mg Tab 2.5 MG PO 2XWK, TAB takes on wednesday and - can restart in 3-5 days if urine clear Discharge Exam Review of Systems: Constitutional: No chills, No fever Respiratory: No cough, No sputum Cardiovascular: No chest pain, No orthopnea Abdomen: No diarrhea, No nausea, No pain, No vomiting Musculoskeletal: No joint pain, No muscle pain Genitourinary - Male: No dysuria, No hematuria Neurologic: + weakness, No paralysis Physical Exam: General Appearance: WD/WN, no apparent distress Neck: supple, no adenopathy Respiratory/Chest: lungs clear, normal breath sounds Cardiovascular: no edema, no gallop Abdomen / GI: non tender, soft Neurologic/Psychiatric: alert, oriented x 3 Hospital Course 71-year old right-handed male with PMH of [place], cardiac arrest S/P AICD (October of 2010), GERD (p/o Khari fundoplication), BPH (p/o prostate reduction surgery ), DVT and pulmonary embolism, diverticulosis, 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 Assessment: Ataxia/minmal left facial droop/minimal left sided weakness consult Dr. Dario dominguez repeat CT head w/o contrast, no acute intracranial abnormalities found carotid US unremarkable Lipids check showed very high Tgs continue lipitor and ASA discharge home with home health and rolling walker Tingling in face/ neuropathy in lower Ext: b12, TSH, RPR WNL, HgbA1C 5.9 Fatigue: Will check TSH. Afib: continue anticoagulation: Will continue Coumadin home dosing with adjustments per clinical pharmacy recommendation. Total Time Spent: Greater than 30 minutes This includes examination of the patient, discharge planning, medication reconciliation, and communication with other providers. Discharge Instructions Please refer to the electronic Patient Visit Report (Discharge Instructions) for additional information. Additional Copies To Tramaine Peterson MD
[2016-10-03] MEDS ORDERED: OXYC-738 PO (13:02)
[2016-10-03] MEDS ORDERED: DXY100 PO (13:02)
--- NOTE | 2016-10-07 16:36 | EDITING REQUIRED CODING QUERY ---
CODING QUERY Dear Dr. Leavitt, To promote full compliance with coding requirements relating to patient care, provider participation is requested in all cases of dietetic technician registered uncertainty. Please assist us with the question(s) below: Coding Question(s): Did the patient have CVA? ( X ) CVA ( ) CVA ruled out ( ) Other: Please explain ( ) Unable to determine Medical documentation Assessment: Ataxia/minmal left facial droop/minimal left sided weakness: likely acute CVA, can not have MRI but maybe repeat of CT with contrast tomorrow can be more informative , consukt Dr. Bishop obtain carotid US Lipids check showed very high Tgs will recheck tomorrow continue lipitor and ASA permissive HTN (hold BP meds) Assessment: Ataxia/minmal left facial droop/minimal left sided weakness consult Dr. Bishop - rec repeat CT head w/o contrast, no acute intracranial abnormalities found carotid US unremarkable Lipids check showed very high Tgs continue lipitor and ASA discharge home with home health and rolling walker Physician's Response(s): Thank you for your time. Eusebia Angel [facility] Principal Diagnosis: "_that condition established after study, to be chiefly responsible for occasioning the admission of the patient to the hospital for care." Co-Existing Principal Diagnosis: "_when two or more diagnoses equally meet the criteria for principal diagnosis as determined by the circumstances of admission, diagnostic work up, and/or therapy provided, and the Alphabetic Index, Tabular List, or another coding guideline does not provide sequencing direction, any one of the diagnoses may be sequenced first." "When the physician has documented what appears to be a current diagnosis in the body of the record, but has not included the diagnosis in the final diagnostic statement, the physician should be asked whether the diagnosis should be added." (Source Coding Clinic 2 QTR90. p3-4)
== END 2016-09-03 15:57 | disposition home health service (06) | DRG 65 ==
LOC: ENRESERVTM → ENRESERVDT → C.EDB 09:55 → C.MED 13:57
PROVIDERS: ADMIT Hospitalist; ATTEND Hospitalist
DX: I63.9 Cerebral infarction, unspecified (principal); I50.22 Chronic systolic (congestive) heart failure; R26.9 Unspecified abnormalities of gait and mobility; R29.810 Facial weakness; Z95.810 Presence of automatic (implantable) cardiac defibrillator; N40.0 Benign prostatic hyperplasia without lower urinary tract symptoms; F32.9 Major depressive disorder, single episode, unspecified; J43.9 Emphysema, unspecified; H35.30 Unspecified macular degeneration; G62.9 Polyneuropathy, unspecified; G47.00 Insomnia, unspecified; G47.30 Sleep apnea, unspecified; I25.2 Old myocardial infarction; Z86.711 Personal history of pulmonary embolism; H54.0 Blindness, both eyes; I48.91 Unspecified atrial fibrillation; R25.1 Tremor, unspecified; Z86.718 Personal history of other venous thrombosis and embolism; I25.10 Atherosclerotic heart disease of native coronary artery without angina pectoris; K82.8 Other specified diseases of gallbladder; Z87.891 Personal history of nicotine dependence; K21.9 Gastro-esophageal reflux disease without esophagitis; I11.0 Hypertensive heart disease with heart failure; E78.5 Hyperlipidemia, unspecified; E78.00 Pure hypercholesterolemia, unspecified; Z79.82 Long term (current) use of aspirin; Z79.899 Other long term (current) drug therapy; Z79.891 Long term (current) use of opiate analgesic; Z79.01 Long term (current) use of anticoagulants; Z86.79 Personal history of other diseases of the circulatory system

== ENCOUNTER → 2016-09-16 | Outpatient (CLI) | payer BC ==
[~2016-09-16] MED LIST changes: -ALBU1AER9 INH; -ASPEC81 PO; +ASPI-435 PO; -BUPR-83 PO; +CETI10TA84 PO; +CHOL1CAP30 PO; +CHOL2000 PO; -CIPR-255 PO; -CLC100 PO; +DOCU100C31 PO; +DOCU1TAB6 PO; +DXY100 PO; +EPIN1INJ37; -EPP3 IM; -LISI5TAB3 PO; +LSN5 PO; +METO5TAB2 PO; -MOME50SP5 NAE; +MOME6000 NAE; +NYST1POW7; -ONDA4TAB46 PO; +PANT40TA PO; +SPRIN/30 INH; +VNTHFA/IN INH; +WLL100
== END | disposition home or self-care (01) ==
LOC: C.LABSPEC 11:33
PROVIDERS: ATTEND Urology
DX: N40.1 Benign prostatic hyperplasia with lower urinary tract symptoms (principal)

== ENCOUNTER → 2016-09-29 | Outpatient (CLI) | payer BC ==
--- NOTE | 2016-09-29 15:57 | DIAGNOSTIC IMAGING REPORT ---
CT SCAN OF THE BRAIN WITHOUT IV CONTRAST CLINICAL HISTORY: Facial weakness. COMPARISON STUDY: CT of the brain dated 09/03/2016. TECHNIQUE: Unenhanced axial CT scan of the brain is performed from the vertex to the skull base. CT DOSE: 601.98 mGy.cm FINDINGS: Brain parenchyma: There are age-related involutional changes noting mild subcortical and periventricular microangiopathic change. There is no hemorrhage, mass effect, or evidence of acute territorial ischemia by CT criteria. A chronic lacunar infarct is noted in the right caudate head. [place]-white matter is preserved. No extra-axial fluid collection is seen. Ventricles, sulci, cisterns: Prominent secondary to involutional change. Intracranial vasculature: There is atherosclerotic calcification of the cavernous carotid and vertebral arteries. Calvarium: Unremarkable. Sinuses and mastoids: The visualized paranasal sinuses are clear. The mastoid air cells are well pneumatized. Orbits: The bony orbits are grossly intact. There is evidence of bilateral ocular lens surgery. IMPRESSION: There is no hemorrhage, mass effect, or evidence of acute territorial ischemia by CT criteria. Electronically signed by: Ankush Byrnes M.D. 09/29/2016 3:56 PM Dictated Date/Time: 09/29/2016 3:53 PM
== END | disposition home or self-care (01) ==
LOC: C.CTS 15:41
PROVIDERS: ATTEND Family Medicine
DX: R29.810 Facial weakness (principal); R53.1 Weakness

== ENCOUNTER 2016-10-01 13:04 | Inpatient (IN) | payer BC, OTHER ==
[~2016-10-01] VITALS: Ht 177.8 cm; Wt 93.7 kg
[~2016-10-01 13:04] MED LIST changes: -CETI10TA84 PO; -CHOL2000 PO; -DOCU100C31 PO; -DXY100 PO; -METO5TAB2 PO; -PANT40TA PO
[2016-10-01] MEDS ORDERED: CEFTRIAXONE SOD INJ 1 GM ADDVIAL IV STA (14:41)
[2016-10-01 15:26] LABS: BASO % 0.3 %; BASO ABS # 0.03 K/uL (0-0.2); COMPLETE YES; EOS % 5.9 %; HEMATOCRIT 40.7 % (42-52); IG% 0.6 %; LYMPH % 22.5 %; LYMPH ABS # 2.02 K/uL (1.2-3.4); MEAN CELL VOLUME 90.4 fL (80-100); MEAN CORPUSCULAR HEMOGLOBIN 30.2 pg (25-34); MEAN CORPUSCULAR HGB CONC 33.4 g/dl (32-36); MEAN PLATELET VOLUME 10.1 fL (7.4-10.4); MONO % 9.2 %; NEUT % 61.5 %; PLATELET COUNT 241 K/uL (130-400); WHITE BLOOD COUNT 8.96 K/uL (4.8-10.8)
[2016-10-01 15:41] LABS: BUN/CREATININE RATIO 13.6 (10-20); CALCIUM 8.3 mg/dl (8.5-10.1); CREATININE 1.1 mg/dl (0.60-1.40); POTASSIUM 4.1 mmol/L (3.5-5.1)
--- NOTE | 2016-10-01 15:41 | DIAGNOSTIC IMAGING REPORT ---
LEFT ELBOW 3 VIEWS CLINICAL HISTORY: Left elbow pain and swelling. No reported history of trauma. FINDINGS: 3 views of the left elbow are obtained. No prior studies are available for comparison at the time of dictation. Skeletal structures are osteopenic. No fracture is seen. The joint spaces appear maintained. There is soft tissue edema present around the elbow, greatest dorsally. A small joint effusion is identified. A tiny enthesophyte is noted at the triceps insertion. No subcutaneous gas is seen. No radiodense foreign body is identified. IMPRESSION: 1. Osteopenia with no radiographic evidence of acute fracture. 2. Diffuse soft tissue edema and small joint effusion. Although a joint effusion is present, occult fracture is considered unlikely without a history of trauma. Electronically signed by: Ankush Byrnes M.D. 10/01/2016 3:39 PM Dictated Date/Time: 10/01/2016 3:37 PM
[2016-10-01 15:44] LABS: ALB/GLOB RATIO 1.1 (0.9-2); C-REACTIVE PROTEIN 2.35 mg/dl (0-0.29)
[2016-10-01 15:47] LABS: INR 2.1 (0.9-1.1); PARTIAL THROMBOPLASTIN RATIO 1.4; PROTHROMBIN TIME (PATIENT) 22.7 SECONDS (9.0-12.0)
[2016-10-01] MEDS ORDERED: MoRPHine SULFATE 10 MG/ML CARP/VIAL IV STA (16:27)
--- NOTE | 2016-10-01 16:29 | EMERGENCY ROOM VISIT NOTE ---
ED Visit Note First contact with patient: 14:27 This Patient was discussed with the physician recovery assistant, Bettina Yang PA-C. The pertinent historical and physical exam findings were confirmed. I agree with the studies ordered and with the interpretations of these studies. I agree with the disposition and care plan.
[2016-10-01] MEDS ORDERED: MoRPHine SULFATE 2 MG/ML CARP ONE (16:31)
[2016-10-01] MEDS ORDERED: MoRPHine SULFATE 4 MG/ML 1 ML CARP\\VIAL ONE (16:31)
[2016-10-01] MEDS ORDERED: DOCU100C31 PO (16:38)
[2016-10-01] MEDS ORDERED: CHOL2000 PO (16:49)
[2016-10-01] MEDS ORDERED: METO5TAB2 PO (16:49)
[2016-10-01] MEDS ORDERED: PANT40TA PO (17:09)
[2016-10-01] MEDS ORDERED: CETI10TA84 PO (17:09)
[2016-10-01] MEDS ORDERED: ARTIOIN2 OPB (17:09)
[2016-10-01 18:14] VITALS: Ht 177.8 cm; Wt 93.7 kg
[2016-10-01] MEDS ORDERED: HYDROmorphone INJ 0.5 MG/0.5 ML SYR IV STA (18:32)
[2016-10-01] MEDS ORDERED: VANCOMYCIN 1GM/270ML NSS ONE (18:37)
[2016-10-01] MEDS ORDERED: HYDROmorphone INJ 0.5 MG/0.5 ML SYR ONE (18:39)
--- NOTE | 2016-10-01 18:43 | EMERGENCY ROOM VISIT NOTE ---
History First contact with patient: 14:27 Chief Complaint: ELBOW PAIN/INJURY Stated Complaint: SORE LEFT ELBOW History of Present Illness The patient is a 71 year old male who presents to the Emergency Room with complaints of left elbow pain, swelling, redness. The patient states that the redness and pain started in the last 24 hours. He states that he has significant discomfort with any moving of the arm or elbow. He saw his primary care provider today and was referred to the emergency department for further evaluation and management. He rates his discomfort a 7/10. He does not recall any specific injury. He denies any fevers. The patient has taken his diuretic as he noticed an increase in his weight. He denies any chest pain or trouble breathing. Review of Systems A 10 system review of systems was completed with positives and pertinent negatives listed in the HPI. Past Medical/Surgical History Medical Problems: (1) Ac Myocard Infarct,Oth Inferior Wall,Init Epis Car (2) Acute Venous Embolism & Thrombosis Deep Vessels Distal Le (3) Balance problem (4) balance problem (5) Biliary dyskinesia (6) BPH (benign prostatic hypertrophy) (7) Bursitis of left elbow (8) Cellulitis of left arm (9) Congestive Heart Failure Nos (10) Coronary Atherosclerosis Of [place] Coronary Vessel (11) Depression (12) Diverticulosis Colon (W/O Ment Of Hemorrhage) (13) DVT (deep venous thrombosis) (14) Emphysema (15) Esophageal Reflux (16) Hypertension Nos (17) Macular degeneration (18) Parox Ventric Tachycard (19) PE (pulmonary embolism) (20) Percutaneous Translum Coron Angioplasty Status (21) Peripheral neuropathy (22) Pure Hypercholesterolem (23) Right upper quadrant abdominal pain (24) Sleep apnea (25) Warfarin anticoagulation Surgical Problems: (1) AICD (automatic cardioverter/defibrillator) present Family History Patient reports no known family medical history. Social History Smoking Status: Former Smoker Alcohol Use: none Drug Use: none Marital Status: Housing Status: lives with family Occupation Status: retired Current/Historical Medications Scheduled Albuterol Hfa (Ventolin Hfa), 2-4 PUFFS INH Q6H Artificial Tear Ointment (Refresh Lacri-Lube), 1 DROP OPB QAM Aspirin (Aspirin 81), 81 MG PO DAILY Bumetanide (Bumex), 1 MG PO QAM Bupropion HCl (Bupropion HCl), 100 MG BID Carvedilol (Coreg), 12.5 MG PO BID Cetirizine (Zyrtec), 10 MG PO BID Cholecalciferol (Vitamin D3), 1 CAP PO DAILY Docusate Sodium (Docusate Sodium), 100 MG PO DAILY Emollient (Lubriderm), 1 APPLN TOP Q8 Ferrous Sulfate (Ferrous Sulfate), 325 MG PO HS Finasteride (Proscar), 5 MG PO QAM Folic Acid (Folvite), 1 MG PO QAM Lisinopril (Zestril), 2.5 MG PO QAM Lisinopril (Lisinopril), 5 MG PO QPM Metoclopramide Hcl (Metoclopramide Hcl), 1 TAB PO Q6H Mometasone Furoate (Nasal) (Mometasone Furoate), 2 SPRAYS DEB DAILY Oxycodone HCl (Oxycodone HCl ER), 10 MG PO Q6H Pantoprazole (Protonix), 40 MG PO AM/NOON Potassium Ext Rel (Klor-Con), 20 MEQ PO DAILY Ranitidine (Zantac), 2 CAP PO HS Sennosides (Sennosides), 8.6 MG PO HS Simvastatin (Zocor), 40 MG PO QPM Tiotropium [place] (Spiriva Handihaler), 1 CAP INH DAILY Warfarin Sod (Coumadin), 5 MG PO 5XWK Warfarin Sod (Jantoven), 2.5 MG PO 2XWK Miscellaneous Medications Epinephrine (Epinephrine) Nystatin (Topical) (Nystatin) Allergies Coded Allergies: BEE STING (Verified Allergy, Unknown, SWELLING, SOB, 10/01/16) Lidocaine (Verified Allergy, Unknown, RASH, 10/01/16) Penicillins (Verified Allergy, Unknown, SWELLING, DIFFICULTY BREATHING, 10/01/16) SWELLING Hydrocodone (Verified Adverse Reaction, Mild, nausea, 10/01/16) Oxycodone (Verified Adverse Reaction, Mild, nausea, 10/01/16) Physical Exam Vital Signs Date Time Temp Pulse Resp B/P (MAP) Pulse Ox O2 Delivery O2 Flow Rate FiO2 10/01/16 18:30 72 18 123/83 96 Room Air 10/01/16 18:14 Room Air 10/01/16 16:37 83 20 124/81 93 Room Air 10/01/16 16:20 66 18 119/76 97 Room Air 10/01/16 13:13 36.7 66 18 109/76 92 Room Air Physical Exam VITALS: Vitals are noted on the nurse's note and reviewed by myself. Vital signs stable. The patient is afebrile GENERAL: This is a 71-year-old male, in no acute distress, nondiaphoretic, well- developed well-nourished. SKIN: There is erythema, warmth and tenderness to the left arm. It extends from the wrist to the bicep. There is fluctuance over the left olecranon bursa. There are no open areas. There is no active drainage. There is no tenting of the skin. Capillary reflex less than 2 seconds. HEAD: Normocephalic atraumatic. EARS: The external ears are normal in appearance. EYES: Pupils equal round and reactive to light and accommodation. Conjunctivae without injection, sclerae without icterus. Extraocular movements intact. NOSE: Patent, turbinates without inflammation or discharge. MOUTH: Mucous membranes moist. Tonsils are not enlarged. Pharynx without erythema or exudate. Uvula midline. Airway patent. Tongue does not deviate. NECK: Supple without nuchal rigidity. No lymphadenopathy. No thyromegaly. Cervical spine is nontender. No JVD. HEART: Regular rate and rhythm without murmurs gallops or rubs. LUNGS: Clear to auscultation bilaterally without wheezes, rales or rhonchi. No retractions or accessory muscle use. MUSCULOSKELETAL: There is erythema, warmth and tenderness of the left arm as above. There is no pain with joint loading of the elbow. There is marked pain with any movement of the left elbow. The remaining extremities are otherwise unremarkable. Normal gait. Strength 5/5 throughout. NEURO: Patient was alert and oriented to person place and time. No focal neurological deficits. Medical Decision & Procedures ER Provider Diagnostic Interpretation: LEFT ELBOW 3 VIEWS CLINICAL HISTORY: Left elbow pain and swelling. No reported history of trauma. FINDINGS: 3 views of the left elbow are obtained. No prior studies are available for comparison at the time of dictation. Skeletal structures are osteopenic. No fracture is seen. The joint spaces appear maintained. There is soft tissue edema present around the elbow, greatest dorsally. A small joint effusion is identified. A tiny enthesophyte is noted at the triceps insertion. No subcutaneous gas is seen. No radiodense foreign body is identified. IMPRESSION: 1. Osteopenia with no radiographic evidence of acute fracture. 2. Diffuse soft tissue edema and small joint effusion. Although a joint effusion is present, occult fracture is considered unlikely without a history of trauma. Laboratory Results 10/01/16 14:55 Red Blood Count 4.50, Mean Corpuscular Volume 90.4, Mean Corpuscular Hemoglobin 30.2, Mean Corpuscular Hemoglobin Concent 33.4, Mean Platelet Volume 10.1, Neutrophils (%) (Auto) 61.5, Lymphocytes (%) (Auto) 22.5, Monocytes (%) (Auto) 9.2, Eosinophils (%) (Auto) 5.9, Basophils (%) (Auto) 0.3, Neutrophils # (Auto) 5.51, Lymphocytes # (Auto) 2.02, Monocytes # (Auto) 0.82, Eosinophils # (Auto) 0.53, Basophils # (Auto) 0.03 10/01/16 14:55 Test 10/01/16 14:55 10/01/16 15:15 White Blood Count 8.96 K/uL (4.8-10.8) Red Blood Count 4.50 M/uL (4.7-6.1) Hemoglobin 13.6 g/dL (14.0-18.0) Hematocrit 40.7 % (42-52) Mean Corpuscular Volume 90.4 fL (80-100) Mean Corpuscular Hemoglobin 30.2 pg (25-34) Mean Corpuscular Hemoglobin Concent 33.4 g/dl (32-36) Platelet Count 241 K/uL (130-400) Mean Platelet Volume 10.1 fL (7.4-10.4) Neutrophils (%) (Auto) 61.5 % Lymphocytes (%) (Auto) 22.5 % Monocytes (%) (Auto) 9.2 % Eosinophils (%) (Auto) 5.9 % Basophils (%) (Auto) 0.3 % Neutrophils # (Auto) 5.51 K/uL (1.4-6.5) Lymphocytes # (Auto) 2.02 K/uL (1.2-3.4) Monocytes # (Auto) 0.82 K/uL (0.11-0.59) Eosinophils # (Auto) 0.53 K/uL (0-0.5) Basophils # (Auto) 0.03 K/uL (0-0.2) RDW Standard Deviation 45.1 fL (36.4-46.3) RDW Coefficient of Variation 13.6 % (11.5-14.5) Immature Granulocyte % (Auto) 0.6 % Immature Granulocyte # (Auto) 0.05 K/uL (0.00-0.02) Erythrocyte Sedimentation Rate 9 mm/hr (0-14) Prothrombin Time 22.7 SECONDS (9.0-12.0) Prothromb Time International Ratio 2.1 (0.9-1.1) Activated Partial Thromboplast Time 36.6 SECONDS (21.0-31.0) Partial Thromboplastin Ratio 1.4 Anion Gap 8.0 mmol/L (3-11) Est Creatinine Clear Calc Drug Dose 70.8 ml/min Estimated GFR () 77.9 Estimated GFR (Non- 67.2 BUN/Creatinine Ratio 13.6 (10-20) Calcium Level 8.3 mg/dl (8.5-10.1) Total Bilirubin 0.4 mg/dl (0.2-1) Aspartate Amino Transf (AST/SGOT) 16 U/L (15-37) Alanine Aminotransferase (ALT/SGPT) 25 U/L (12-78) Alkaline Phosphatase 54 U/L (45-117) C-Reactive Protein 2.35 mg/dl (0-0.29) Total Protein 7.0 gm/dl (6.4-8.2) Albumin 3.6 gm/dl (3.4-5.0) Globulin 3.4 gm/dl (2.5-4.0) Albumin/Globulin Ratio 1.1 (0.9-2) Lactic Acid Level 1.4 mmol/L (0.4-2.0) Medications Administered Medications (Trade) Dose Ordered Sig/Charly Route Start Time Stop Time Status Last Admin Dose Admin Ceftriaxone Sodium (Rocephin Inj) 1 gm NOW STAT IV 10/01/16 14:41 10/01/16 14:45 DC 10/01/16 15:06 1 GM Morphine Sulfate (MoRPHine SULFATE INJ) 2 mg STK-MED ONCE .ROUTE 10/01/16 16:31 10/01/16 16:32 DC 10/01/16 16:34 2 MG Morphine Sulfate (MoRPHine SULFATE INJ) 4 mg STK-MED ONCE .ROUTE 10/01/16 16:31 10/01/16 16:32 DC 10/01/16 16:33 4 MG Vancomycin HCl (Vancomycin 1gm/ 270ml Nss) 1 gm STK-MED ONCE .ROUTE 10/01/16 18:37 10/01/16 18:38 DC 10/01/16 18:43 1 GM Hydromorphone HCl (Dilaudid Inj) 0.5 mg STK-MED ONCE .ROUTE 10/01/16 18:39 10/01/16 18:40 DC 10/01/16 18:43 0.5 MG ED Course The patient was seen and examined. Previous visits were reviewed. The patient does not have a fever. He does not have a leukocytosis. His sedimentation rate is not elevated. Lactic acid is not elevated. CRP is elevated at 2.35. INR is 2.1. He does take Coumadin. Blood cultures are pending. X-ray was obtained as above and reveals a small joint effusion and soft tissue edema that is greatest dorsally He was given 1 g IV Rocephin He was given 4 mg IV morphine The patient presents to the emergency department with what appears to be a septic olecranon bursitis of his left elbow with associated cellulitis that involves more than one half of his left upper extremity. This has evolved over the last 24 hours. The patient would benefit from further evaluation and management in the hospital. The case was discussed with the hospitalist service and they will evaluate the patient. The patient was also seen and examined by Dr. Huber who agrees with the assessment and treatment plan. Medication Reconciliation: I attest that I have personally reviewed the patient' s current medication list. Blood pressure screening: The patient was found to have normal blood pressure on screening and does not require follow-up Medical Decision Differential diagnosis includes cellulitis, DVT, septic bursitis, septic arthritis, Lyme disease, gout, arthritis, among others Impression Primary Impression: Septic olecranon bursitis of left elbow Additional Impression: Left arm cellulitis Departure Information Dispostion Admitted as an inpatient Condition FAIR Referrals Tramaine Peterson MD (PCP) Patient Instructions My [facility] Problem Qualifiers
[2016-10-01] MEDS ORDERED: ACETAMINOPHEN 325 MG TAB PO PRN (18:45)
[2016-10-01] MEDS ORDERED: ONDANSETRON INJ 2 MG/ML 2 ML VIAL IV PRN (18:45)
[2016-10-01] MEDS ORDERED: ALUMINUM/MAGNESIUM/SIMETH (MAALOX MAX) 30 ML UDC PO PRN (18:45)
[2016-10-01] MEDS ORDERED: NYSTATIN POWDER 15GM BTL EXT PRN (18:45)
[2016-10-01] MEDS ORDERED: VANCOMYCIN CONSULT ACTIVE PRN (19:00)
[2016-10-01] MEDS ORDERED: EPINEPHRINE ADULT AUTO-INJECT 0.3 MG SYR IM PRN (19:00)
[2016-10-01] MEDS ORDERED: VANCOMYCIN INJ 1,400 MG in SODIUM CHLORIDE 0.9% 500ML 500 ML IV ONE (19:15)
--- NOTE | 2016-10-01 19:34 | Medical Student: [facility] ---
Med Student History & Physical Date & Time of Service: Oct 01, 2016 at 19:13 Chief Complaint: Sore Left Elbow Primary Care Physician: Tramaine Peterson MD History of Present Illness This is a 71 y/o male with extensive pmh including PR s/p AICD and stent placement, CVA, CHF, neuropathy who present with acute onset of left elbow pain and swelling that spread to forearm and proximal arm within less than 24 hours. He presented to PCP this AM who directed him to ED. At time of interview in ED he rated pain 8/10. He did not recall any recent trauma, tick bites, bug bites, rashes, lesions, sicknesses, or contact with others with rashes. He had thought it was a bug bite and had applied salve and simone bandage, which did not alleviate pain. He did not take any medications or use heat/ice to alleviate pain. He has never had rash or pain like this, but does note that he gets some type of rash on his chest every single night, for which he takes ceterizine. He has never had any trauma or fractures in left extremity that he recalls. He has never had any gout attacks. He notes that his arm feels swollen and that the swelling and pain have restricted his ROM. He denies having any recent or accompanying fevers,chills, night sweats, weight loss. He denies headache, vision changes, sore throat, URI symptoms. He denies SOB, chest pain, hemoptysis. He denies abdominal pain, n/v/d, dysuria. He does have chronic neuropathy b/l in upper and lower extremities which he does not feel has changed. All other systems reviewed and negative. Past Medical/Surgical History Medical Problems: Asthma CVA BPH Chronic pain Sleep apnea Depression PTSD Agent [place] exposure Benign prostatic hypertrophy, post greenlight vaporization procedure July of this year History of DVTs and pulmonary emboli PR in 2010 with stent placement, ischemic cardiomyopathy and congestive heart failure Generalized polyneuropathy of unknown etiology Sleep apnea Severe macular degeneration b/l ?Possible? exposure to mrsa Surgical Problems: Vasectomy 1974 [place] 2002 Hernia repair Cataract surgery b/l Stent Placement 2010 AICD (automatic cardioverter/defibrillator) present 2011 Cholecystectomy 2016 Family History Son with schizophrenia and bipolar Father: cancer Mother: coronary artery disease, pertinent history of Social History Smoking Status: Former Smoker (1-2 packs a day. Quit in 1992. ) Alcohol Use: none (Quit in . ) Drug Use: none (Never drug user. ) Marital Status: (46 years. ) Housing status: lives with family (Lives with . ) Occupational Status: retired (Previously employed at [employer] for 26 years; various occupations. War vet with service in [place]. ) Immunizations History of Influenza Vaccine: Yes Influenza Vaccine Date: Dec 29, 2010 History of Tetanus Vaccine?: Yes Tetanus Immunization Date: Oct 28, 2010 History of Pneumococcal: Yes Pneumococcal Date: Jan 28, 2011 History of Hepatitis B Vaccine: Yes Allergies Coded Allergies: BEE STING (Verified Allergy, Unknown, SWELLING, SOB, 10/01/16) Lidocaine (Verified Allergy, Unknown, RASH, 10/01/16) Penicillins (Verified Allergy, Unknown, SWELLING, DIFFICULTY BREATHING, 10/01/16) SWELLING Hydrocodone (Verified Adverse Reaction, Mild, nausea, 10/01/16) Oxycodone (Verified Adverse Reaction, Mild, nausea, 10/01/16) Medications Albuterol Hfa (Ventolin Hfa), 2-4 PUFFS INH Q6H Artificial Tear Ointment (Refresh Lacri-Lube), 1 DROP OPB QAM Aspirin (Aspirin 81), 81 MG PO DAILY Bumetanide (Bumex), 1 MG PO QAM Bupropion HCl (Bupropion HCl), 100 MG BID Carvedilol (Coreg), 12.5 MG PO BID Cetirizine (Zyrtec), 10 MG PO BID Cholecalciferol (Vitamin D3), 1 CAP PO DAILY Docusate Sodium (Docusate Sodium), 100 MG PO DAILY Emollient (Lubriderm), 1 APPLN TOP Q8 Epinephrine (Epinephrine) Ferrous Sulfate (Ferrous Sulfate), 325 MG PO HS Finasteride (Proscar), 5 MG PO QAM Folic Acid (Folvite), 1 MG PO QAM Lisinopril (Zestril), 2.5 MG PO QAM Lisinopril (Lisinopril), 5 MG PO QPM Metoclopramide Hcl (Metoclopramide Hcl), 1 TAB PO Q6H Mometasone Furoate (Nasal) (Mometasone Furoate), 2 SPRAYS DEB DAILY Nystatin (Topical) (Nystatin) Oxycodone HCl (Oxycodone HCl ER), 10 MG PO Q6H Pantoprazole (Protonix), 40 MG PO AM/NOON Potassium Ext Rel (Klor-Con), 20 MEQ PO DAILY Ranitidine (Zantac), 2 CAP PO HS Sennosides (Sennosides), 8.6 MG PO HS Simvastatin (Zocor), 40 MG PO QPM Tiotropium [place] (Spiriva Handihaler), 1 CAP INH DAILY Warfarin Sod (Coumadin), 5 MG PO 5XWK Warfarin Sod (Jantoven), 2.5 MG PO 2XWK Review of Systems Constitutional: No fever, No chills, No sweats, No weight loss Respiratory: No cough, No sputum, No wheezing, No shortness of breath Cardiovascular: No chest pain Abdomen: No nausea, No vomiting, No diarrhea, No constipation Musculoskeletal: + joint pain, + swelling Genitourinary - Male: No hematuria, No dysuria Endocrine: No fatigue, No excessive thirst Hematologic / Lymphatic: No abnormal bleeding/bruising, No clotting problems Integumentary: + color change Physical Exam Vital Signs (24 Hours) Date Time Temp Pulse Resp B/P (MAP) Pulse Ox O2 Delivery O2 Flow Rate FiO2 10/01/16 18:14 Room Air 10/01/16 16:37 83 20 124/81 93 Room Air 10/01/16 16:20 66 18 119/76 97 Room Air 10/01/16 13:13 36.7 66 18 109/76 92 Room Air General Appearance: WD/WN, + mild distress Head: normocephalic, atraumatic Eyes: normal inspection Neck: supple, no adenopathy, thyroid normal, no JVD Respiratory/Chest: chest non-tender, lungs clear, normal breath sounds, no respiratory distress, no accessory muscle use Cardiovascular: regular rate, rhythm, no edema, no gallop, no JVD, no murmur, normal peripheral pulses Abdomen/GI: normal bowel sounds, non tender, soft, no organomegaly Back: normal inspection, no CVA tenderness Extremities/Musculoskelatal: + pedal edema (1+ bilaterally ), + pertinent finding (left elbow erythematous with noticeable swelling at location consistent with bursa. Soft, fluid filled epicenter that is painful to touch. Diffusely erythematous and flat without blanching at elbow and extending down forearm, stopping at wrist. Some erythema spreading proximally towards but not at shoulder. Restricted extremes of ROM on extension and flexion due to discomfort. Radial and brachial pulse are present. ) Neurologic/Psych: normal mood/affect, normal reflexes, oriented x 3 Skin: normal color, warm/dry Lymphatic: no adenopathy Diagnostics Laboratory Results Results Past 24 Hours Test 10/01/16 14:55 10/01/16 15:15 Range/Units White Blood Count 8.96 4.8-10.8 K/uL Red Blood Count 4.50 4.7-6.1 M/uL Hemoglobin 13.6 14.0-18.0 g/dL Hematocrit 40.7 42-52 % Mean Corpuscular Volume 90.4 80-100 fL Mean Corpuscular Hemoglobin 30.2 25-34 pg Mean Corpuscular Hemoglobin Concent 33.4 32-36 g/dl Platelet Count 241 130-400 K/uL Mean Platelet Volume 10.1 7.4-10.4 fL Neutrophils (%) (Auto) 61.5 % Lymphocytes (%) (Auto) 22.5 % Monocytes (%) (Auto) 9.2 % Eosinophils (%) (Auto) 5.9 % Basophils (%) (Auto) 0.3 % Neutrophils # (Auto) 5.51 1.4-6.5 K/uL Lymphocytes # (Auto) 2.02 1.2-3.4 K/uL Monocytes # (Auto) 0.82 0.11-0.59 K/uL Eosinophils # (Auto) 0.53 0-0.5 K/uL Basophils # (Auto) 0.03 0-0.2 K/uL RDW Standard Deviation 45.1 36.4-46.3 fL RDW Coefficient of Variation 13.6 11.5-14.5 % Immature Granulocyte % (Auto) 0.6 % Immature Granulocyte # (Auto) 0.05 0.00-0.02 K/uL Erythrocyte Sedimentation Rate 9 0-14 mm/hr Prothrombin Time 22.7 9.0-12.0 SECONDS Prothromb Time International Ratio 2.1 0.9-1.1 Activated Partial Thromboplast Time 36.6 21.0-31.0 SECONDS Partial Thromboplastin Ratio 1.4 Sodium Level 137 136-145 mmol/L Potassium Level 4.1 3.5-5.1 mmol/L Chloride Level 102 98-107 mmol/L Carbon Dioxide Level 27 21-32 mmol/L Anion Gap 8.0 3-11 mmol/L Blood Urea Nitrogen 15 7-18 mg/dl Creatinine 1.10 0.60-1.40 mg/dl Est Creatinine Clear Calc Drug Dose 70.8 ml/min Estimated GFR () 77.9 Estimated GFR (Non- 67.2 BUN/Creatinine Ratio 13.6 10-20 Random Glucose 97 70-99 mg/dl Calcium Level 8.3 8.5-10.1 mg/dl Total Bilirubin 0.4 0.2-1 mg/dl Aspartate Amino Transf (AST/SGOT) 16 15-37 U/L Alanine Aminotransferase (ALT/SGPT) 25 12-78 U/L Alkaline Phosphatase 54 45-117 U/L C-Reactive Protein 2.35 0-0.29 mg/dl Total Protein 7.0 6.4-8.2 gm/dl Albumin 3.6 3.4-5.0 gm/dl Globulin 3.4 2.5-4.0 gm/dl Albumin/Globulin Ratio 1.1 0.9-2 Lactic Acid Level 1.4 0.4-2.0 mmol/L Microbiology Results 10/01/16 Blood Culture, Received Pending 10/01/16 Blood Culture, Received Pending Diagnostic Radiology X-Ray Left elbow -Soft tissue swelling -Osteopenia -No evidence of fracture Impression Assessment and Plan This is a 71 y/o male with extensive pmh who presents with acute left elbow swelling, pain, and erythema. Differential includes septic arthritis v. septic bursitis v gouty arthritis v gouty bursitis. Normal ESR, CRP, and lack of gout hx make gout a less likely diagnosis. Physical exam findings are more consistent w/ septic bursitis, as soft tissue swelling is soft and feels fluid filled on exam. ROM is more restricted at extremes of flexion/extension, whereas would be more diffusely restricted/painful with septic arthritis. Therefore, septic olecranon bursitis is most likely. 1. Septic Olecranon Bursitis -Bursitis Aspiration with culture, gram stain, crystal analysis, cell count -IV Vancomycin -CBC with diff in AM -PT, PTT, INR -Oxycodone ER 10mg po q12 -Hydromorphone .5 mg IV q4h prn 2. Ischemic cardiomyopathy, CHF -Bumetanide 1 mg one tab po -Carvedilol 12.5 mg BID -Lisinopril 5mg qpm -Hold coumadin until Coag studies, currently therapeutic 3. MDD and PTSD -Bupropion HCL 100mg BID 4. ROSE -CPAP 5. Asthma - Continue home inhalers 6. Skin Irritation -Nystatin 7. BPH -Finasteride 5mg PO -Tamsulosin 4mg PO 8. GERD -Pantoprazole 40 mg PO -Ranitidine 150 mg qPM 9. Constipation -Sennosides -Docusate 10. Hypercholesterolemia -simvastatin 80 mg 12. Severe macular degeneration -Lubricating eye drops 13. Nutrition -Low sodium diet -Ferrous sulfate 325 mg -Potassium -Vitamin D3 -Folic acid Level of Care Med/Surg Advanced Directives Existing Living Will: Yes Existing Power of Instructional Paraprofessional: Yes Resuscitation Status FULL RESUSCITATION DVT Prophylaxis warfarin (Coumadin)
[2016-10-01 19:47] LABS: SYNOVIAL FLUID APPEARANCE BLOODY; SYNOVIAL FLUID COLOR RED; SYNOVIAL FLUID MONONUC RELAT 28.2 %; SYNOVIAL FLUID POLYNUC RELAT 71.8 %
[2016-10-01 19:59] VITALS: O2SAT 92
--- NOTE | 2016-10-01 20:10 | Pharmacy Progress Note ---
Pharmacy Abx Initial Consult Date of Service Oct 01, 2016. Pharmacy Dosing Scope Date of Consult: 10/01/16 Consultation requested by: Dr. Alvarez Pharmacy is consulted to initiate Vancomycin IV dosing therapy, order appropriate labs and adjust drug dose/frequency. Subjective The patient is a 71 year old male admitted on 10/01/16 with left elbow pain and swelling. Objective Height (Feet): 5 Height (Inches): 10.00 Weight (Kilograms): 93.700 Vital Signs (Past 12Hrs) Vital Signs Past 12 Hours Date Time Temp Pulse Resp B/P (MAP) Pulse Ox O2 Delivery O2 Flow Rate FiO2 10/01/16 19:45 67 18 132/85 95 Room Air 10/01/16 18:30 72 18 123/83 96 Room Air 10/01/16 18:14 Room Air 10/01/16 16:37 83 20 124/81 93 Room Air 10/01/16 16:20 66 18 119/76 97 Room Air 10/01/16 13:13 36.7 66 18 109/76 92 Room Air Lab Results (24Hrs) Laboratory Tests Test 10/01/16 14:55 10/01/16 15:15 C-Reactive Protein 2.35 mg/dl (0-0.29) H Erythrocyte Sedimentation Rate 9 mm/hr (0-14) White Blood Count 8.96 K/uL (4.8-10.8) Red Blood Count 4.50 M/uL (4.7-6.1) L Hemoglobin 13.6 g/dL (14.0-18.0) L Hematocrit 40.7 % (42-52) L Mean Corpuscular Volume 90.4 fL (80-100) Mean Corpuscular Hemoglobin 30.2 pg (25-34) Mean Corpuscular Hemoglobin Concent 33.4 g/dl (32-36) Platelet Count 241 K/uL (130-400) Mean Platelet Volume 10.1 fL (7.4-10.4) Neutrophils (%) (Auto) 61.5 % Lymphocytes (%) (Auto) 22.5 % Monocytes (%) (Auto) 9.2 % Eosinophils (%) (Auto) 5.9 % Basophils (%) (Auto) 0.3 % Neutrophils # (Auto) 5.51 K/uL (1.4-6.5) Lymphocytes # (Auto) 2.02 K/uL (1.2-3.4) Monocytes # (Auto) 0.82 K/uL (0.11-0.59) H Eosinophils # (Auto) 0.53 K/uL (0-0.5) H Basophils # (Auto) 0.03 K/uL (0-0.2) Lactic Acid Level 1.4 mmol/L (0.4-2.0) Micro Results Date/Time Source Procedure Growth Status 10/01/16 15:15 Blood Blood Culture Pending Received 10/01/16 14:55 Blood Blood Culture Pending Received 10/01/16 19:00 Aspirate - Other Elbow Gram Stain Pending Received 10/01/16 19:00 Aspirate - Other Elbow Bacterial Culture Pending Received Risk Factors for Resistance * 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 Plan Vancomycin IV for treatment of septic olecranon bursitis * Loading dose: 1000 mg + 1400 mg to make total LD of 25 mg/kg * Maintenance dose: 1400 mg IV (15 mg/kg) every 12 hours * Goal trough level for septic bursitis : 15 to 20 mcg/mL * Trough level ordered for 10/03/16 Pharmacy will continue to follow and will adjust dose/frequency as necessary. Thank you.
--- NOTE | 2016-10-01 20:12 | History and Physical ---
History & Physical Date & Time of Service: Oct 01, 2016 at 18:53 Chief Complaint: Sore Left Elbow Primary Care Physician: Tramaine Peterson MD History of Present Illness Source: patient, family ( at bedside) 71yo male with history of chronic systolic/diastolic CHF, CAD, AICD status, ROSE on CPAP, BPH, chronic pain syndrome, COPD, and chronic coumadin use for previous VTE events who presents with worsening left elbow pain and left arm redness/swelling starting about 24 hours ago. The redness and pain started on the olecrenon process area of the left elbow yesterday am. The redness then tracked proximally up the arm and distally into the forearm as the day went on yesterday. Today he visited his PCP's office and they promptly referred him to the ER for evaluation. Denies any fever but felt cold/had chills while awaiting evaluation in the ER. Denies any injury or trauma to the left arm/ elbow. Denies any history of gout. Denies any rash of the left arm. He also denies any insect bites to the left arm/elbow area. Past Medical/Surgical History PMH: 1. chronic systolic/diastolic CHF, EF 40-45% 2. CAD with prior h/o OH 3. h/o multiple VTE events (DVT and PE) 4. BPH 5. h/o diverticulitis 6. depression 7. COPD 8. h/o agent orange exposure during the [place] War 9. neuropathy of the hands & feet 10. HTN 11. ROSE on CPAP 12. GERD 13. hyperlipidemia 14. h/o ventricular tachycardia 15. macular degeneration PSH: 1. vasectomy 2. carey procedure 3. left eye surgery 4. hernia repair x 3 5. coronary stents 6. AICD placement 7. cataract extraction b/l Family History father - from some form of cancer mother - ? aunt - gout son - bipolar disorder, schizophrenia Social History Smoking Status: Former Smoker (2ppd - quit 1992) Alcohol Use: quit Drug Use: none Marital Status: (1 son) Housing status: lives with family () Occupational Status: retired (from [employer] ) Immunizations History of Influenza Vaccine: Yes Influenza Vaccine Date: Dec 29, 2010 History of Tetanus Vaccine?: Yes Tetanus Immunization Date: Oct 28, 2010 History of Pneumococcal: Yes Pneumococcal Date: Jan 28, 2011 History of Hepatitis B Vaccine: Yes Allergies Coded Allergies: BEE STING (Verified Allergy, Unknown, SWELLING, SOB, 10/01/16) Lidocaine (Verified Allergy, Unknown, RASH, 10/01/16) Penicillins (Verified Allergy, Unknown, SWELLING, DIFFICULTY BREATHING, 10/01/16) SWELLING Hydrocodone (Verified Adverse Reaction, Mild, nausea, 10/01/16) Oxycodone (Verified Adverse Reaction, Mild, nausea, 10/01/16) Home Medications Scheduled Albuterol Hfa (Ventolin Hfa), 2-4 PUFFS INH Q6H Artificial Tear Ointment (Refresh Lacri-Lube), 1 DROP OPB QAM Aspirin (Aspirin 81), 81 MG PO DAILY Bumetanide (Bumex), 1 MG PO QAM Bupropion HCl (Bupropion HCl), 100 MG BID Carvedilol (Coreg), 12.5 MG PO BID Cetirizine (Zyrtec), 10 MG PO BID Cholecalciferol (Vitamin D3), 1 CAP PO DAILY Docusate Sodium (Docusate Sodium), 100 MG PO DAILY Emollient (Lubriderm), 1 APPLN TOP Q8 Ferrous Sulfate (Ferrous Sulfate), 325 MG PO HS Finasteride (Proscar), 5 MG PO QAM Folic Acid (Folvite), 1 MG PO QAM Lisinopril (Zestril), 2.5 MG PO QAM Lisinopril (Lisinopril), 5 MG PO QPM Metoclopramide Hcl (Metoclopramide Hcl), 1 TAB PO Q6H Mometasone Furoate (Nasal) (Mometasone Furoate), 2 SPRAYS DEB DAILY Oxycodone HCl (Oxycodone HCl ER), 10 MG PO Q6H Pantoprazole (Protonix), 40 MG PO AM/NOON Potassium Ext Rel (Klor-Con), 20 MEQ PO DAILY Ranitidine (Zantac), 2 CAP PO HS Sennosides (Sennosides), 8.6 MG PO HS Simvastatin (Zocor), 40 MG PO QPM Tiotropium Finley (Spiriva Handihaler), 1 CAP INH DAILY Warfarin Sod (Coumadin), 5 MG PO 5XWK Warfarin Sod (Jantoven), 2.5 MG PO 2XWK Miscellaneous Medications Epinephrine (Epinephrine) Nystatin (Topical) (Nystatin) Review of Systems Constitutional: + chills, No fever, No sweats, No weight loss, No fatigue Eyes: + problem reported (chronic visual loss) Respiratory: No cough, No sputum, No wheezing, No shortness of breath, No dyspnea on exertion Cardiovascular: No chest pain, No orthopnea, No PND, No edema Abdomen: No pain, No nausea, No vomiting, No diarrhea Musculoskeletal: + joint pain (see HPI), + swelling (see HPI) Genitourinary - Male: No dysuria Neurologic: No paralysis, No weakness Psychiatric: No anxiety Endocrine: No fatigue Hematologic / Lymphatic: No abnormal bleeding/bruising Integumentary: + rash, + color change Physical Exam Vital Signs Date Time Temp Pulse Resp B/P (MAP) Pulse Ox O2 Delivery O2 Flow Rate FiO2 10/01/16 18:14 Room Air 10/01/16 16:37 83 20 124/81 93 Room Air 10/01/16 16:20 66 18 119/76 97 Room Air 10/01/16 13:13 36.7 66 18 109/76 92 Room Air General Appearance: no apparent distress Head: normocephalic, atraumatic Eyes: PERRL ENT: TMs normal, pharynx normal Neck: supple, no adenopathy, thyroid normal, no JVD Respiratory/Chest: lungs clear, no respiratory distress, no accessory muscle use Cardiovascular: regular rate, rhythm, no gallop, no JVD, no murmur, normal peripheral pulses Abdomen/GI: normal bowel sounds, non tender, soft, no organomegaly Back: normal inspection Extremities/Musculoskelatal: no pedal edema, + pertinent finding (left elbow - olecrenon bursal fluid (mild-moderate) present, very tender to touch; erythematous, warm; with passive flexion/extension he has mild-moderate pain at the extremes of the range of motion ) Neurologic/Psych: no motor/sensory deficits, alert, normal reflexes, oriented x 3 Skin: + pertinent finding (tracking erythema extending proximally and distally from the elbow) Lymphatic: no adenopathy (cervical ) Diagnostics Laboratory Results Results Past 24 Hours Test 10/01/16 14:55 10/01/16 15:15 Range/Units White Blood Count 8.96 4.8-10.8 K/uL Red Blood Count 4.50 4.7-6.1 M/uL Hemoglobin 13.6 14.0-18.0 g/dL Hematocrit 40.7 42-52 % Mean Corpuscular Volume 90.4 80-100 fL Mean Corpuscular Hemoglobin 30.2 25-34 pg Mean Corpuscular Hemoglobin Concent 33.4 32-36 g/dl Platelet Count 241 130-400 K/uL Mean Platelet Volume 10.1 7.4-10.4 fL Neutrophils (%) (Auto) 61.5 % Lymphocytes (%) (Auto) 22.5 % Monocytes (%) (Auto) 9.2 % Eosinophils (%) (Auto) 5.9 % Basophils (%) (Auto) 0.3 % Neutrophils # (Auto) 5.51 1.4-6.5 K/uL Lymphocytes # (Auto) 2.02 1.2-3.4 K/uL Monocytes # (Auto) 0.82 0.11-0.59 K/uL Eosinophils # (Auto) 0.53 0-0.5 K/uL Basophils # (Auto) 0.03 0-0.2 K/uL RDW Standard Deviation 45.1 36.4-46.3 fL RDW Coefficient of Variation 13.6 11.5-14.5 % Immature Granulocyte % (Auto) 0.6 % Immature Granulocyte # (Auto) 0.05 0.00-0.02 K/uL Erythrocyte Sedimentation Rate 9 0-14 mm/hr Prothrombin Time 22.7 9.0-12.0 SECONDS Prothromb Time International Ratio 2.1 0.9-1.1 Activated Partial Thromboplast Time 36.6 21.0-31.0 SECONDS Partial Thromboplastin Ratio 1.4 Sodium Level 137 136-145 mmol/L Potassium Level 4.1 3.5-5.1 mmol/L Chloride Level 102 98-107 mmol/L Carbon Dioxide Level 27 21-32 mmol/L Anion Gap 8.0 3-11 mmol/L Blood Urea Nitrogen 15 7-18 mg/dl Creatinine 1.10 0.60-1.40 mg/dl Est Creatinine Clear Calc Drug Dose 70.8 ml/min Estimated GFR () 77.9 Estimated GFR (Non- 67.2 BUN/Creatinine Ratio 13.6 10-20 Random Glucose 97 70-99 mg/dl Calcium Level 8.3 8.5-10.1 mg/dl Total Bilirubin 0.4 0.2-1 mg/dl Aspartate Amino Transf (AST/SGOT) 16 15-37 U/L Alanine Aminotransferase (ALT/SGPT) 25 12-78 U/L Alkaline Phosphatase 54 45-117 U/L C-Reactive Protein 2.35 0-0.29 mg/dl Total Protein 7.0 6.4-8.2 gm/dl Albumin 3.6 3.4-5.0 gm/dl Globulin 3.4 2.5-4.0 gm/dl Albumin/Globulin Ratio 1.1 0.9-2 Lactic Acid Level 1.4 0.4-2.0 mmol/L Microbiology Results 10/01/16 Blood Culture, Received Pending 10/01/16 Blood Culture, Received Pending Diagnostic Radiology ELBOW X-rays, left: IMPRESSION: 1. Osteopenia with no radiographic evidence of acute fracture. 2. Diffuse soft tissue edema and small joint effusion. Although a joint effusion is present, occult fracture is considered unlikely without a history of trauma. Impression Assessment and Plan 71yo male with history of chronic systolic/diastolic CHF, CAD, AICD status, ROSE on CPAP, BPH, chronic pain syndrome, COPD, and 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 1. olecrenon bursitis with cellulitis, left arm - orthopedic consultation requested to perform drainage of the bursae (rule out septic bursitis, gouty bursitis, etc). In meantime will follow blood cultures and continue IV antibiotic therapy with ceftriaxone and vancomycin. Pain control as needed with IV dilaudid. Continue home oxycontin 10mg BID. NSAIDs would be ideal but may interact with coumadin. 2. chronic systolic/diastolic CHF - compensated. Cont BB, bumex, POP. 3. h/o DVT/PE - hold coumadin tonight in the event he needs a surgical procedure on the elbow. If nothing is needed then resume coumadin tomorrow. INR in am. 4. HTN - controlled with home meds. 5. chronic pain syndrome - oxycontin 10mg BID. 6. ROSE - continue home CPAP. 7. GERD - PPI. 8. COPD - not in exacerbation. Albuterol prn. 9. CAD - no ischemic symptoms at this time. Cont aspirin, BB, statin, etc. 10. DVT proph - INR currently 2.1 on coumadin. 11. Code status - full code, level 1. 12. BPH - cont home medications. Level of Care Med/Surg Advanced Directives Existing Living Will: Yes Existing Power of Obstetrics Technician: Yes Resuscitation Status FULL RESUSCITATION VTE Prophylaxis VTE Risk Assessment Done? Y/N: Yes Risk Level: Low Given or contraindicated: Warfarin (Coumadin) Social Service Consult None Apply Note total time spent - 70 minutes Additional Copies To Tramaine Peterson MD
[2016-10-01 20:35] VITALS: BP 119/72; PULSE 76; TEMP 36.7; O2SAT 93
[2016-10-01] MEDS ORDERED: OXYCODONE HCL 10 MG TABCR (OXYCONTIN) PO SCH (21:00)
--- NOTE | 2016-10-01 21:36 | ORTHOPEDIC CONSULTATION ---
DATE OF CONSULTATION: 10/01/2016 REASON FOR CONSULTATION: Left elbow. HISTORY OF PRESENT ILLNESS: The patient is a 71-year-old gentleman with a 1 day history of progressive left elbow pain and swelling. He is being admitted to the hospital by Dr. Alvarez. The patient does not recall any injury to the elbow. He has not had any breaks in the skin. He denies fever, chills or sweats. He has not had any drainage. He does have a history of MRSA infection in his foot from a prior surgery. PAST MEDICAL HISTORY: He has past history of myocardial infarction, DVT, biliary dyskinesia, BPH, congestive heart failure, coronary artery disease, depression, diverticulitis, emphysema, GERD, hypertension, macular degeneration, pacemaker defibrillator, neuropathy, dyslipidemia, sleep apnea, ICD. SOCIAL HISTORY: Does not smoke or drink. MEDICATIONS: Noted upon reviewing his health profile, most notably he takes Coumadin. ALLERGIES: HE IS ALLERGIC TO BEE STINGS, HYDROCODONE, LIDOCAINE, OXYCODONE AND PENICILLINS, LISTED ON HIS CHART. PHYSICAL EXAMINATION: EXTREMITIES: Median, radial and ulnar, motor and sensory functions are intact, 1+ radial pulse. Full movement of the fingers, wrist and forearm. Elbow motion 0-125. He has 5/5 strength. There is a small amount of fluid within the olecranon bursa. There is erythema over the olecranon area extending a short distance up the back of the arm and then down just short of his watch band on the posterior aspect of the arm. The olecranon area is exquisitely tender to palpation. There is no break in the skin. GENERAL: He is afebrile. LABORATORY DATA: His white count is 9, hematocrit is 41. Sed rate is 9. INR is 2.1. His PRP is noted. C-reactive protein is 2.35. DESCRIPTION OF THE PROCEDURE: Verbal informed consent was obtained. Siri Chairez, medical student assisted in aspirating approximately 6 mL of mostly serous, slightly bloody fluid from the left elbow olecranon bursa. There was no purulence noted. This completely decompressed the olecranon bursa. A lateral approach was used, sterile technique was utilized. Treatment options, risks, benefits, aftercare, verbal consent and timeout were done. IMPRESSION: Cellulitis of the left arm with possible septic olecranon bursitis. PLAN: My findings are discussed with the patient and his . I recommended we aspirate the bursa to see if he has evidence of infectious bursitis. This was accomplished and the fluid will be sent off for a gram stain, aerobic and anaerobic culture, cell count with differential plus crystal analysis. He will be started on intravenous antibiotics, vancomycin. I recommended that we apply a bulky soft dressing to the arm, a sling and elevate. He will be reassessed and labs will be followed up. I do not think that he requires formal DVT prophylaxis and at this point. I do think that he needs to have his anticoagulation reversed.
[2016-10-01] MEDS: SENNA 8.6 MG TAB PO SCH (21:58)
[2016-10-01] MEDS: RANITIDINE HCL 150 MG TAB PO SCH (21:58)
[2016-10-01] MEDS: LISINOPRIL 5 MG TAB PO SCH (21:58)
[2016-10-01] MEDS: SIMVASTATIN 40 MG TAB PO SCH (21:58)
[2016-10-01] MEDS: DOCUSATE SODIUM 100 MG CAP PO SCH (21:59)
[2016-10-01] MEDS: FERROUS SULFATE 325 MG TAB PO SCH (21:59)
[2016-10-01] MEDS: METOCLOPRAMIDE HCL 5 MG TAB PO SCH (21:59)
[2016-10-01] MEDS: PANTOprazole SOD 40 MG TAB PO SCH (21:59)
[2016-10-01] MEDS: CARVEDILOL 25 MG TAB PO SCH (21:59)
[2016-10-01] MEDS ORDERED: EMOLLIENT TOP SCH (22:00)
[2016-10-01 23:29] VITALS: BP 109/71; PULSE 69; TEMP 36.7; O2SAT 95
[2016-10-01] MEDS: HYDROmorphone INJ 1 MG/ML SYR IV PRN (23:46)
[2016-10-01] MEDS: ALBUTEROL HFA 8 GM INHALER INH SCH (23:46)
[2016-10-02] MEDS: METOCLOPRAMIDE HCL 5 MG TAB PO SCH ×4 (05:39→23:54)
[2016-10-02] MEDS: OXYCODONE HCL 10 MG TABCR (OXYCONTIN) PO SCH ×2 (05:39→19:06)
[2016-10-02] MEDS: ALBUTEROL HFA 8 GM INHALER INH SCH ×4 (05:40→23:54)
[2016-10-02] MEDS: HYDROmorphone INJ 1 MG/ML SYR IV PRN ×2 (06:43→07:13)
[2016-10-02 07:19] VITALS: BP 116/75; PULSE 68; TEMP 36.7; O2SAT 92
[2016-10-02 07:38] LABS: BASO % 0.3 %; BASO ABS # 0.02 K/uL (0-0.2); COMPLETE YES; EOS % 6.3 %; HEMATOCRIT 38.9 % (42-52); IG% 0.5 %; LYMPH % 19.4 %; LYMPH ABS # 1.53 K/uL (1.2-3.4); MEAN CORPUSCULAR HEMOGLOBIN 29.9 pg (25-34); MEAN CORPUSCULAR HGB CONC 33.2 g/dl (32-36); MEAN PLATELET VOLUME 9.8 fL (7.4-10.4); MONO % 9.2 %; NEUT % 64.3 %; PLATELET COUNT 238 K/uL (130-400); RED BLOOD COUNT 4.32 M/uL (4.7-6.1)
[2016-10-02 07:55] LABS: INR 1.6 (0.9-1.1); PROTHROMBIN TIME (PATIENT) 17.7 SECONDS (9.0-12.0)
[2016-10-02] MEDS: VANCOMYCIN INJ 1,400 MG in SODIUM CHLORIDE 0.9% 500ML 500 ML IV SCH ×2 (07:55→20:25)
[2016-10-02 08:08] LABS: CREATININE 0.97 mg/dl (0.60-1.40)
--- NOTE | 2016-10-02 09:09 | Orthopedic Progress Note ---
Orthopedic Progress Note Date of Service Oct 02, 2016. Subjective Reports: feeling well, pain controlled w PO medications, Denies: complaints, chest pain, SOB, nausea / vomiting, light headedness, calf pain, using REIMBURSEMENT DIRECTOR Objective capillary refill less than 2 sec., A&O x3, CMS intact Left elbow: dressing removed. Pt has mild edema, erythema and slight warmth to palpation over olecranon bursa. NO fluctuance, ecchymosis, open skin areas or discharge noted. ROM is 0-120 with no pain elicited with flex or extension at elbow. Pt state that swelling is significantly improved compared to yesterday prior to aspiration. Full ROM of wrist and digits with equal chain machine operator strength LUISA. Pt is neurovascularly intact Left UE with palpable peripheral pulses. Date Time Temp Pulse Resp B/P (MAP) Pulse Ox O2 Delivery O2 Flow Rate FiO2 10/02/16 08:33 Room Air 10/02/16 07:19 36.7 68 18 116/75 (89) 92 Room Air 10/01/16 23:40 Room Air 10/01/16 23:29 36.7 69 18 109/71 (84) 95 Room Air 10/01/16 20:35 Room Air 10/01/16 20:35 36.7 76 16 119/72 (88) 93 Room Air 10/01/16 19:59 67 18 132/85 92 10/01/16 19:45 67 18 132/85 95 Room Air 10/01/16 18:30 72 18 123/83 96 Room Air 10/01/16 18:14 Room Air 10/01/16 16:37 83 20 124/81 93 Room Air 10/01/16 16:20 66 18 119/76 97 Room Air 10/01/16 13:13 36.7 66 18 109/76 92 Room Air Laboratory Results 24 Hours: Test 10/01/16 14:55 10/02/16 07:07 White Blood Count 8.96 K/uL 7.90 K/uL Red Blood Count 4.50 M/uL 4.32 M/uL Hemoglobin 13.6 g/dL 12.9 g/dL Hematocrit 40.7 % 38.9 % Mean Corpuscular Volume 90.4 fL 90.0 fL Mean Corpuscular Hemoglobin 30.2 pg 29.9 pg Mean Corpuscular Hemoglobin Concent 33.4 g/dl 33.2 g/dl Platelet Count 241 K/uL 238 K/uL Mean Platelet Volume 10.1 fL 9.8 fL Neutrophils (%) (Auto) 61.5 % 64.3 % Lymphocytes (%) (Auto) 22.5 % 19.4 % Monocytes (%) (Auto) 9.2 % 9.2 % Eosinophils (%) (Auto) 5.9 % 6.3 % Basophils (%) (Auto) 0.3 % 0.3 % Neutrophils # (Auto) 5.51 K/uL 5.08 K/uL Lymphocytes # (Auto) 2.02 K/uL 1.53 K/uL Monocytes # (Auto) 0.82 K/uL 0.73 K/uL Eosinophils # (Auto) 0.53 K/uL 0.50 K/uL Basophils # (Auto) 0.03 K/uL 0.02 K/uL Prothromb Time International Ratio 2.1 1.6 Prothrombin Time 22.7 SECONDS 17.7 SECONDS Assessment & Plan Assessment: Left Arm cellulitis with possible septic olecranon bursitis Plan: Cont IV ABX Results of blood cultures pending Cont oral pain meds Dressing on Left arm changed. Will cont to follow orthopedically. Cont General medical follow due to chronic health history. Will discuss finding with Dr. Mauricio
[2016-10-02] MEDS ORDERED: KETOROLAC TROMETHAMINE 15 MG/ML VIAL IV. STA (09:39)
[2016-10-02] MEDS: LISINOPRIL 5 MG TAB PO SCH ×2 (10:05→20:39)
[2016-10-02] MEDS: FINASTERIDE 5 MG TAB PO SCH (10:05)
[2016-10-02] MEDS: CETIRIZINE HCL 10 MG TAB PO SCH (10:05)
[2016-10-02] MEDS: BUMETANIDE 1 MG TAB PO SCH (10:06)
[2016-10-02] MEDS: DOCUSATE SODIUM 100 MG CAP PO SCH ×2 (10:06→20:35)
[2016-10-02] MEDS: CARVEDILOL 25 MG TAB PO SCH ×2 (10:06→20:37)
[2016-10-02] MEDS: ASPIRIN 81 MG ECTAB PO SCH (10:06)
[2016-10-02] MEDS: TRIAMCINOLONE ACET NASAL SPRAY 10.8ML BTL NAE SCH (10:07)
[2016-10-02] MEDS: PANTOprazole SOD 40 MG TAB PO SCH ×2 (10:07→20:36)
[2016-10-02] MEDS: TIOTROPIUM BROMIDE 5 PUFF/90 MCG INH INH SCH (10:07)
[2016-10-02] MEDS: POTASSIUM CHLORIDE 20 MEQ TABCR PO SCH (10:07)
[2016-10-02] MEDS: ARTIFICIAL TEARS OP OINT 3.5 GM TUBE OPB SCH (11:32)
[2016-10-02 15:12] VITALS: BP 103/66; PULSE 61; TEMP 36.6; O2SAT 92
--- NOTE | 2016-10-02 15:24 | PROGRESS NOTE ---
DATE: 10/02/2016 DATE: 10/02/2016. SUBJECTIVE: Symptoms have improved. He is afebrile. Crystals were negative. Cultures no growth to date. Fluid analysis showed only 2700 white blood cells. OBJECTIVE: On exam there is diminished erythema and tenderness. There is no tenderness or only trace tenderness over the olecranon. There is a trace amount of fluid present within the olecranon bursa. There is no drainage. His distal neurovascular function is intact and he has full movement of the elbow. IMPRESSION: Left elbow cellulitis. PLAN: He does not have septic arthritis and he does not currently have evidence of a septic olecranon bursitis. I think the evidence suggests that the infection is confined to the skin. He seems to have responded well to intravenous antibiotics. The low white blood cell count on the aspiration favors that this is more of an inflammatory rather than infectious etiology in terms of the fluid in the bursa. He can be transitioned to oral antibiotics and discharged home at the discretion of the primary team. I will be happy to follow up with him as an outpatient if necessary or he could follow up with his primary care physician. Continue elevation, compressive wrap and sling.
[2016-10-02] MEDS ORDERED: WARFARIN SOD 5 MG TAB PO ONE (16:45)
[2016-10-02] MEDS ORDERED: KETOROLAC TROMETHAMINE 15 MG/ML VIAL IV ONE (16:45)
--- NOTE | 2016-10-02 17:12 | Medical Student: [facility] ---
Med Student Progress Note Date of Service Oct 02, 2016. Subjective Pt evaluation today including: conversation w/ patient, conversation w/ family , physical exam, chart review, lab review, review of studies Voiding: no voiding problems This is a 71 y/o man with pmh of [place] s/p stent placement, CHF, anticoagulation who was admitted for acute olecranon bursitis of left elbow, which was drained in the ED last evening. He had no acute events overnight and is feeling well today. He has remained afebrile since admission. He reports that the swelling and pain have decreased substantially, and he has regained more movement in his arm. He denies fevers, chills, night sweats. He denies n/v/d, cough, chest pain , SOB. All other systems reviewed and negative. Review of Systems Constitutional: No fever, No chills Respiratory: No cough, No sputum Cardiac: No chest pain Abdomen: No pain, No nausea, No vomiting, No diarrhea Musculoskeletal: + joint pain Heme: No abnormal bleeding/bruising, No clotting problems, No swollen lymph nodes Objective Vital Signs Date Time Temp Pulse Resp B/P (MAP) Pulse Ox O2 Delivery O2 Flow Rate FiO2 10/02/16 15:12 36.6 61 18 103/66 (78) 92 Room Air 10/02/16 08:33 Room Air 10/02/16 07:19 36.7 68 18 116/75 (89) 92 Room Air 10/01/16 23:40 Room Air 10/01/16 23:29 36.7 69 18 109/71 (84) 95 Room Air 10/01/16 20:35 Room Air 10/01/16 20:35 36.7 76 16 119/72 (88) 93 Room Air 10/01/16 19:59 67 18 132/85 92 10/01/16 19:45 67 18 132/85 95 Room Air 10/01/16 18:30 72 18 123/83 96 Room Air 10/01/16 18:14 Room Air Physical Exam General Appearance: WD/WN, no apparent distress Neck: no adenopathy, thyroid normal, no JVD Respiratory/Chest: chest non-tender, lungs clear, normal breath sounds, no respiratory distress, no accessory muscle use Cardiovascular: regular rate, rhythm, no edema, no gallop, no JVD, no murmur Abdomen: normal bowel sounds, non tender, soft Extremities: normal range of motion, normal capillary refill, + pertinent finding (Left elbow has been wrapped with simone bandage. On inspection, there is noteably less swelling and erythema. There is less pain on active and passion movement of left elbow. There is residual soft tissue mass at area of bursitis, but it is substantially decreased in size and less painful than yesterday. ) Neurologic/Psychiatric: alert, normal mood/affect, oriented x 3 Skin: normal color, warm/dry Lymphatic: no adenopathy Laboratory Results Last 24 Hours Test 10/01/16 19:00 10/02/16 07:07 Synovial Fluid Source ELBOW FLUID Synovial Fluid Color RED Synovial Fluid Appearance BLOODY Synovial Fluid WBC 2745 /uL Synovial Fluid RBC 624034 /uL Synovial Fluid Polynuclear WBCs % 71.8 % Synovial Fluid Mononuclear WBCs % 28.2 % Synovial Fluid Crystals White Blood Count 7.90 K/uL Red Blood Count 4.32 M/uL Hemoglobin 12.9 g/dL Hematocrit 38.9 % Mean Corpuscular Volume 90.0 fL Mean Corpuscular Hemoglobin 29.9 pg Mean Corpuscular Hemoglobin Concent 33.2 g/dl Platelet Count 238 K/uL Mean Platelet Volume 9.8 fL Neutrophils (%) (Auto) 64.3 % Lymphocytes (%) (Auto) 19.4 % Monocytes (%) (Auto) 9.2 % Eosinophils (%) (Auto) 6.3 % Basophils (%) (Auto) 0.3 % Neutrophils # (Auto) 5.08 K/uL Lymphocytes # (Auto) 1.53 K/uL Monocytes # (Auto) 0.73 K/uL Eosinophils # (Auto) 0.50 K/uL Basophils # (Auto) 0.02 K/uL RDW Standard Deviation 44.8 fL RDW Coefficient of Variation 13.5 % Immature Granulocyte % (Auto) 0.5 % Immature Granulocyte # (Auto) 0.04 K/uL Prothrombin Time 17.7 SECONDS Prothromb Time International Ratio 1.6 Creatinine 0.97 mg/dl Est Creatinine Clear Calc Drug Dose 80.3 ml/min Estimated GFR () 90.7 Estimated GFR (Non- 78.2 Medications Medications Administered Medications (Trade) Dose Ordered Sig/Charly Route Start Time Stop Time Status Last Admin Dose Admin Ceftriaxone Sodium (Rocephin Inj) 1 gm NOW STAT IV 10/01/16 14:41 10/01/16 14:45 DC 10/01/16 15:06 1 GM Morphine Sulfate (MoRPHine SULFATE INJ) 2 mg STK-MED ONCE .ROUTE 10/01/16 16:31 10/01/16 16:32 DC 10/01/16 16:34 2 MG Morphine Sulfate (MoRPHine SULFATE INJ) 4 mg STK-MED ONCE .ROUTE 10/01/16 16:31 10/01/16 16:32 DC 10/01/16 16:33 4 MG Vancomycin HCl 1400 mg/Sodium Chloride 528 ml @ 200 mls/hr 1915 ONCE IV 10/01/16 19:15 10/01/16 21:53 DC 10/01/16 21:10 200 MLS/HR Vancomycin HCl (Vancomycin 1gm/ 270ml Nss) 1 gm STK-MED ONCE .ROUTE 10/01/16 18:37 10/01/16 18:38 DC 10/01/16 18:43 1 GM Hydromorphone HCl (Dilaudid Inj) 0.5 mg STK-MED ONCE .ROUTE 10/01/16 18:39 10/01/16 18:40 DC 10/01/16 18:43 0.5 MG Albuterol (Ventolin Hfa Inhaler) 2 puffs Q6 INH 10/02/16 00:00 11/01/16 00:00 10/02/16 11:32 2 PUFFS Artificial Tears (Lacri-Lube Oph Oint) 1 appln QAM OPB 10/02/16 09:00 11/01/16 08:59 10/02/16 11:32 1 APPLN Aspirin (Ecotrin Tab) 81 mg DAILY PO 10/02/16 09:00 11/01/16 08:59 10/02/16 10:06 81 MG Bumetanide (Bumex Tab) 1 mg QAM PO 10/02/16 09:00 11/01/16 08:59 10/02/16 10:06 1 MG Bupropion HCl (Wellbutrin Tab) 100 mg BID PO 10/01/16 21:00 10/31/16 20:59 10/02/16 10:05 100 MG Carvedilol (Coreg Tab) 12.5 mg BID PO 10/01/16 21:00 10/31/16 20:59 10/02/16 10:06 12.5 MG Cetirizine HCl (zyrTEC TAB) 10 mg DAILY PO 10/02/16 09:00 11/01/16 08:59 10/02/16 10:05 10 MG Ferrous Sulfate (Feosol Tab) 325 mg HS PO 10/01/16 21:00 10/31/16 20:59 10/01/16 21:59 325 MG Finasteride (Proscar Tab) 5 mg QAM PO 10/02/16 09:00 11/01/16 08:59 10/02/16 10:05 5 MG Folic Acid (Folvite Tab) 1 mg QAM PO 10/02/16 09:00 11/01/16 08:59 10/02/16 10:07 1 MG Lisinopril (Zestril Tab) 5 mg QPM PO 10/01/16 21:00 10/31/16 20:59 10/01/16 21:58 5 MG Lisinopril (Zestril Tab) 2.5 mg QAM PO 10/02/16 09:00 11/01/16 08:59 10/02/16 10:05 2.5 MG Metoclopramide HCl (Reglan Tab) 5 mg Q6 PO 10/01/16 21:00 10/31/16 20:59 10/02/16 11:32 5 MG Pantoprazole Sodium (Protonix Tab) 40 mg BID PO 10/01/16 21:00 10/31/16 20:59 10/02/16 10:07 40 MG Potassium Chloride (Klor-Con Tab) 20 meq DAILY PO 10/02/16 09:00 11/01/16 08:59 10/02/16 10:07 20 MEQ Ranitidine HCl (zANTac TAB) 300 mg HS PO 10/01/16 21:00 10/31/16 20:59 10/01/16 21:58 300 MG Senna (Senokot Tab) 8.6 mg HS PO 10/01/16 21:00 10/31/16 20:59 10/01/16 21:58 8.6 MG Simvastatin (Zocor Tab) 40 mg QPM PO 10/01/16 21:00 10/31/16 20:59 10/01/16 21:58 40 MG Tiotropium Maxwell (Spiriva Handihaler Inhaler) 1 puff DAILY INH 10/02/16 09:00 11/01/16 08:59 10/02/16 10:07 1 PUFF Docusate Sodium (coLACE CAP) 100 mg BID PO 10/01/16 21:00 10/31/16 20:59 10/02/16 10:06 100 MG Triamcinolone Acetonide (Nasacort Allergy 24hr) 2 sprays DAILY DEB 10/02/16 09:00 11/01/16 08:59 10/02/16 10:07 2 SPRAYS Oxycodone HCl (Oxycontin Tab) 10 mg Q12 PO 10/01/16 21:00 10/01/16 23:59 DC 10/01/16 21:10 10 MG Hydromorphone HCl (Dilaudid Inj) 0.5 mg Q4H PRN IV 10/01/16 18:45 10/15/16 18:44 10/02/16 07:13 0.5 MG Vancomycin HCl 1400 mg/Sodium Chloride 528 ml @ 200 mls/hr Q12H IV 10/02/16 08:00 10/11/16 20:59 10/02/16 07:55 200 MLS/HR Oxycodone HCl (Oxycontin Tab) 10 mg Q12@0600,1800 PO 10/02/16 06:00 10/16/16 05:59 10/02/16 05:39 10 MG Ketorolac Tromethamine (Toradol Inj) 15 mg NOW STAT IV. 10/02/16 09:39 10/02/16 10:06 DC 10/02/16 10:13 15 MG Ketorolac Tromethamine (Toradol Inj) 15 mg 1645 ONCE IV 10/02/16 16:45 10/02/16 16:46 DC 10/02/16 16:55 15 MG Warfarin Sodium (Coumadin Tab) 5 mg 1645 ONCE PO 10/02/16 16:45 10/02/16 16:46 DC 10/02/16 16:54 5 MG Assessment and Plan Assessment and Plan: This is a 71 y/o male with extensive pmh who has been admitted for olecranon bursitis. At this time, bursitis aspiration results demonstrate WBC 2745, No gout/pseudogout crystals detected, and no organisms observed. This picture is most consistent with a noninfectious olecranon bursitis, with a potential overlying cellulitis. A septic arthritis/bursitis is less likely, as we would expect a more elevated WBC aspiration count, as well as presence of organisms. 1. Olecranon Bursitis with overlying cellulitis -Bursitis Aspiration with culture, gram stain, crystal analysis, cell count results per above. -We will continue IV vancomycin while in the hospital, and transition to oral abx, likely bactrim. -CBC with diff in AM -PT, PTT, INR -Oxycodone ER 10mg po q12 -Hydromorphone .5 mg IV q4h prn -Toradol 15 mg IV 2. Ischemic cardiomyopathy, CHF -Bumetanide 1 mg one tab po -Carvedilol 12.5 mg BID -Lisinopril 5mg qpm -May restart coumadin, as surgical intervention is likely unnecessary 3. MDD and PTSD -Bupropion HCL 100mg BID 4. ROSE -CPAP 5. Asthma - Continue home inhalers 6. Skin Irritation -Nystatin 7. BPH -Finasteride 5mg PO -Tamsulosin 4mg PO 8. GERD -Pantoprazole 40 mg PO -Ranitidine 150 mg qPM 9. Constipation -Sennosides -Docusate 10. Hypercholesterolemia -simvastatin 80 mg 12. Severe macular degeneration -Lubricating eye drops 13. Nutrition -Low sodium diet -Ferrous sulfate 325 mg -Potassium -Vitamin D3 -Folic acid 14. Resuscitation status -Full code Continued [facility] stay due to: multiple IV medications needed Discharge planning: home
--- NOTE | 2016-10-02 20:12 | Progress Note ---
Subjective Date of Service: Oct 02, 2016. Subjective Pt evaluation today including: conversation w/ patient, conversation w/ family ( at bedside), physical exam, chart review, lab review, review of inpatient medication list Pain: left elbow but much improved today PO Intake: normal Voiding: no voiding problems left arm/elbow feel "much better" today ROM is better no fevers Problem List Medical Problems: (1) Abdominal pain, left lower quadrant Status: Acute (2) Anticoagulated on Coumadin Status: Acute (3) Biliary colic Status: Acute (4) BPH (benign prostatic hypertrophy) Status: Chronic (5) CVA (cerebral vascular accident) Status: Acute (6) Depression Status: Chronic (7) Dyspnea Status: Acute (8) Emphysema Status: Chronic (9) Intractable pain Status: Acute (10) Left arm cellulitis Status: Acute (11) Lightheaded Status: Acute (12) Macular degeneration Status: Chronic (13) NSTEMI (non-ST elevated myocardial infarction) Status: Acute (14) Peripheral neuropathy Status: Chronic (15) Septic olecranon bursitis of left elbow Status: Acute (16) Sleep apnea Status: Chronic Surgical Problems: (1) AICD (automatic cardioverter/defibrillator) present Status: Chronic Review of Systems Respiratory: No shortness of breath Cardiac: No chest pain Abdomen: No pain Objective Vital Signs Date Time Temp Pulse Resp B/P (MAP) Pulse Ox O2 Delivery O2 Flow Rate FiO2 10/02/16 16:25 Room Air 10/02/16 15:12 36.6 61 18 103/66 (78) 92 Room Air 10/02/16 08:33 Room Air 10/02/16 07:19 36.7 68 18 116/75 (89) 92 Room Air 10/01/16 23:40 Room Air 10/01/16 23:29 36.7 69 18 109/71 (84) 95 Room Air 10/01/16 20:35 Room Air 10/01/16 20:35 36.7 76 16 119/72 (88) 93 Room Air Physical Exam General Appearance: no apparent distress ENT: pharynx normal Neck: no JVD Respiratory/Chest: lungs clear, no respiratory distress, no accessory muscle use Cardiovascular: regular rate, rhythm, no gallop, no murmur Abdomen: normal bowel sounds, non tender, soft, no organomegaly Extremities: no pedal edema Skin: + pertinent finding (cellulitis of left arm much better today (most of erythema is near the elbow itself; upper & lower arm are improved)) Comments: musculo - left elbow with improved ROM today (passive) olecrenon bursa with significantly LESS erythema, swelling, and tenderness mild overlying erythema only Laboratory Results Last 24 Hours Test 10/02/16 07:07 White Blood Count 7.90 K/uL Red Blood Count 4.32 M/uL Hemoglobin 12.9 g/dL Hematocrit 38.9 % Mean Corpuscular Volume 90.0 fL Mean Corpuscular Hemoglobin 29.9 pg Mean Corpuscular Hemoglobin Concent 33.2 g/dl Platelet Count 238 K/uL Mean Platelet Volume 9.8 fL Neutrophils (%) (Auto) 64.3 % Lymphocytes (%) (Auto) 19.4 % Monocytes (%) (Auto) 9.2 % Eosinophils (%) (Auto) 6.3 % Basophils (%) (Auto) 0.3 % Neutrophils # (Auto) 5.08 K/uL Lymphocytes # (Auto) 1.53 K/uL Monocytes # (Auto) 0.73 K/uL Eosinophils # (Auto) 0.50 K/uL Basophils # (Auto) 0.02 K/uL RDW Standard Deviation 44.8 fL RDW Coefficient of Variation 13.5 % Immature Granulocyte % (Auto) 0.5 % Immature Granulocyte # (Auto) 0.04 K/uL Prothrombin Time 17.7 SECONDS Prothromb Time International Ratio 1.6 Creatinine 0.97 mg/dl Est Creatinine Clear Calc Drug Dose 80.3 ml/min Estimated GFR () 90.7 Estimated GFR (Non- 78.2 Assessment and Plan 71yo male with history of chronic systolic/diastolic CHF, CAD, AICD status, ROSE on CPAP, BPH, chronic pain syndrome, COPD, and 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 1. olecrenon bursitis with cellulitis, left arm - orthopedic consultation much appreciated. s/p arthrocentesis of left elbow olecrenon bursa with no evidence of infection of the bursa to date. crystal analysis was negative. I agree with ortho that the olecrenon bursitis is inflammatory. gave toradol x 1 this am with good relief of pain; will repeat this afternoon. continue vancomycin for cellulitis of left arm and transition to PO antibiotics tomorrow if doing well and culture from bursa is still negative. continue mild compression and sling. 2. chronic systolic/diastolic CHF - compensated. Cont BB, bumex, POP. 3. h/o DVT/PE - resume coumadin since surgery will not be needed; INR in am. 4. HTN - controlled with home meds. 5. chronic pain syndrome - oxycontin 10mg BID. 6. ROSE - continue home CPAP. 7. GERD - PPI. 8. COPD - not in exacerbation. Albuterol prn. 9. CAD - no ischemic symptoms at this time. Cont aspirin, BB, statin, etc. 10. DVT proph - resume coumadin. 11. Code status - full code, level 1. 12. BPH - cont home medications. updated anticipate d/c in am Continued [facility] stay due to: multiple IV medications needed Discharge planning: home
[2016-10-02] MEDS: SENNA 8.6 MG TAB PO SCH (20:33)
[2016-10-02] MEDS: SIMVASTATIN 40 MG TAB PO SCH (20:35)
[2016-10-02] MEDS: RANITIDINE HCL 150 MG TAB PO SCH (20:35)
[2016-10-02] MEDS: FERROUS SULFATE 325 MG TAB PO SCH (20:39)
[2016-10-02 22:58] VITALS: BP 124/64; PULSE 71; TEMP 36.3; O2SAT 97
[2016-10-03] MEDS: METOCLOPRAMIDE HCL 5 MG TAB PO SCH ×2 (05:54→11:06)
[2016-10-03] MEDS: ALBUTEROL HFA 8 GM INHALER INH SCH ×2 (05:55→11:06)
[2016-10-03] MEDS: OXYCODONE HCL 10 MG TABCR (OXYCONTIN) PO SCH (05:55)
[2016-10-03 07:08] VITALS: BP 138/80; PULSE 67; TEMP 36.9; O2SAT 92
[2016-10-03] MEDS ORDERED: VANCOMYCIN TROUGH SCH (07:30)
[2016-10-03 07:46] LABS: INR 1.3 (0.9-1.1); PROTHROMBIN TIME (PATIENT) 14.4 SECONDS (9.0-12.0)
[2016-10-03 08:04] LABS: CREATININE 1.1 mg/dl (0.60-1.40)
[2016-10-03] MEDS: BUMETANIDE 1 MG TAB PO SCH (08:13)
[2016-10-03] MEDS: LISINOPRIL 5 MG TAB PO SCH (08:13)
[2016-10-03] MEDS: ASPIRIN 81 MG ECTAB PO SCH (08:13)
[2016-10-03] MEDS: FINASTERIDE 5 MG TAB PO SCH (08:13)
[2016-10-03] MEDS: VANCOMYCIN INJ 1,400 MG in SODIUM CHLORIDE 0.9% 500ML 500 ML IV SCH (08:13)
[2016-10-03] MEDS: CARVEDILOL 25 MG TAB PO SCH (08:14)
[2016-10-03] MEDS: DOCUSATE SODIUM 100 MG CAP PO SCH (08:14)
[2016-10-03] MEDS: CETIRIZINE HCL 10 MG TAB PO SCH (08:14)
[2016-10-03] MEDS: PANTOprazole SOD 40 MG TAB PO SCH (08:14)
[2016-10-03] MEDS: POTASSIUM CHLORIDE 20 MEQ TABCR PO SCH (08:14)
[2016-10-03] MEDS: TIOTROPIUM BROMIDE 5 PUFF/90 MCG INH INH SCH (08:15)
[2016-10-03] MEDS: TRIAMCINOLONE ACET NASAL SPRAY 10.8ML BTL NAE SCH (08:15)
[2016-10-03] MEDS: ARTIFICIAL TEARS OP OINT 3.5 GM TUBE OPB SCH (08:16)
--- NOTE | 2016-10-03 09:17 | Pharmacy Progress Note ---
Pharmacy Abx Dose Progress Nt Date of Service Oct 03, 2016. Pharmacy Dosing Scope The patient is currently receiving the following antimicrobial agents per Pharmacy consult: * vancomycin 1400 mg IV every 12 hours Objective Height (Feet): 5 Height (Inches): 10.00 Weight (Kilograms): 93.700 Vital Signs (Past 12Hrs) Vital Signs Past 12 Hours Date Time Temp Pulse Resp B/P (MAP) Pulse Ox O2 Delivery O2 Flow Rate FiO2 10/03/16 07:08 36.9 67 18 138/80 (99) 92 Room Air 10/02/16 23:50 CPAP 10/02/16 22:58 36.3 71 20 124/64 (84) 97 CPAP Lab Results (24Hrs) Item Value Date Time Vancomycin Level Trough 21.7 mcg/ml 10/03/16 0730 Micro Results Date/Time Source Procedure Growth Status 10/01/16 15:15 Blood Blood Culture - Preliminary NO GROWTH TO DATE. Resulted 10/01/16 14:55 Blood Blood Culture - Preliminary NO GROWTH TO DATE. Resulted 10/01/16 19:00 Aspirate - Other Elbow Gram Stain - Final Resulted 10/01/16 19:00 Aspirate - Other Elbow Bacterial Culture - Preliminary NO GROWTH TO DATE. 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 Assessment & Plan Assessment * 71 year old male receiving vancomycin IV for treatment of cellulitis * Day # 3/10 of antimicrobial therapy * Likely bursitis ruled inflammatory, however continue treatment for cellulitis * patient improving * afebrile Plan * Continue IV vancomycin with hopes to transition to PO therapy at discharge Vancomycin IV * Trough level of 21.7 mcg/mL is near-therapeutic * Change to vancomycin 1250 mg IV every 12 hours * Goal trough level for cellulitis - with h/o of MRSA: 15 to 20 mcg/mL * Trough level ordered for: 10/05/16 prior to 08:00 dose Pharmacy will continue to follow and will adjust dose/frequency as necessary. Thank you.
[2016-10-03] MEDS ORDERED: DXY100 PO (13:02)
[2016-10-03] MEDS ORDERED: OXYC-738 PO (13:02)
--- NOTE | 2016-10-03 13:10 | Discharge Instructions ---
Discharge Instructions Date of Service Oct 03, 2016. Admission Reason for Admission: Bursitis Of Left Elbow, Cellulitis Of Left Arm Discharge Discharge Diagnosis / Problem: Cellulitis of left arm - improved. Bursitis of left elbow - improved. Discharge Goals Goal(s): Decrease discomfort, Improve disease control, Learn about illness, Diagnostic testing, Therapeutic intervention Activity Recommendations Activity Limitations: as noted below 1. Recommend using the POP wraps and sling for another 2-3 days then can remove if there is not any significant pain in the elbow or there is minimal swelling. You do not need to use the sling [id number]; you can take breaks as needed. 2. You can shower at this time. 3. Avoid heavy lifting (nothing over 10 pounds) with the left arm for about 1 week. 4. Protect the left elbow as much as possible. . Instructions / Follow-Up Instructions / Follow-Up From Dr. Alvarez - 1. left elbow bursitis - * we did not find evidence of gout or infection as causes of your bursitis * please continue the POP wraps and sling as previously mentioned * you may use [id number] motrin (ibuprofen) today and tomorrow if desired for pain/swelling relief of the elbow * take no more than 2 tabs (total of 400mg) each time * you can take the 2 tabs up to twice daily for the next 48 hours 2. left arm cellulitis (skin infection) - * take doxycycline twice daily for 7 days * begin this TONIGHT on 10/03/16 * side effects: * rash if you go out in the sun; wear plenty of sunscreen, cover up with hat/ long sleeves, etc * GI upset/reflux/heartburn 3. Coumadin - * please call the Coumadin clinic on 10/05/16, for appointment for your coumadin level (INR) * take 5mg of coumadin today and 5mg of coumadin on Wednesday as normal 4. There were no other changes to your other medications. 5. Return to [facility] if: * fever over 100.5 degrees * worsening pain, swelling, or redness of the left arm or elbow * generalized rash 6. follow-up appointments - * Dr. Charlie Peterson - [facility] - within 5 days * You may also follow-up with Dr. Nathan Sherbondy - if needed/desired - within 1 week Current Hospital Diet Patient's current hospital diet: Low Sodium Diet (2gm Na) Discharge Diet Recommended Diet: Low Sodium Diet (2gm Na) Procedures Procedures Performed: left elbow x-rays - no fracture aspiration of left elbow bursa - no evidence of infection Pending Studies Studies pending at discharge: no Laboratory Results Hemoglobin A1c Test 09/01/16 10:26 Range/Units Estimated Average Glucose 123 mg/dl Hemoglobin A1c 5.9 H 4.5-5.6 % Lipid Panel Test 09/02/16 05:53 Range/Units Triglycerides Level 531 H 0-150 mg/dl Cholesterol Level 187 0-200 mg/dl HDL Cholesterol 34 mg/dl Cholesterol/HDL Ratio 5.5 LDL Cholesterol, Calculated mg/dl Medical Emergencies . Who to Call and When: Medical Emergencies: If at any time you feel your situation is an emergency, please call 911 immediately. . Non-Emergent Contact Non-Emergency issues call your: Primary Care Provider Call Non-Emergent contact if: temperature is above 100.5, your pain is not controlled, your pain is worsening, your pain is unusual for you, your pain is concerning you, you have any medication questions . . "Provider Documentation" section prepared by Howard Alvarez. . VTE Core Measure Inpt VTE Proph given/why not?: Warfarin (Coumadin)
[2016-10-03 13:23] VITALS: BP 138/80; PULSE 67; TEMP 36.9; O2SAT 92
[2016-10-03] MEDS ORDERED: VANCOMYCIN INJ 1,250 MG in SODIUM CHLORIDE 0.9% 250ML 250 ML IV SCH (20:00)
[2016-10-05] MEDS ORDERED: VANCOMYCIN TROUGH SCH (07:30)
--- NOTE | 2016-10-06 11:17 | Discharge Summary ---
Discharge Summary Date of Service Oct 06, 2016. Discharge Summary Admission Date: Oct 01, 2016 at 18:53 Discharge Date: Oct 03, 2016 Discharge Disposition: Home Principal Diagnosis: left elbow olecrenon bursitis with left arm cellulitis Problems/Secondary Diagnoses: 1. chronic systolic/diastolic CHF, EF 40-45% 2. CAD with prior h/o HI 3. h/o multiple VTE events (DVT and PE) 4. BPH 5. h/o diverticulitis 6. depression 7. COPD 8. h/o agent orange exposure during the [place] 9. neuropathy of the hands & feet 10. HTN 11. ROSE on CPAP 12. GERD 13. hyperlipidemia 14. h/o ventricular tachycardia 15. macular degeneration Immunizations: Have You Had Influenza Vaccine: Yes Influenza Vaccine Date: Dec 29, 2010 History of Tetanus Vaccine?: Yes Tetanus Immunization Date: Oct 28, 2010 History of Pneumococcal: Yes Pneumococcal Date: Jan 28, 2011 History of Hepatitis B Vaccine: Yes Procedures: 1. left elbow x-ray; no fracture. 2. left olecrenon bursa aspiration - Nathan Mauricio MD Consultations: orthopedics - Nathan Mauricio MD Medication Reconciliation New Medications: Doxycycline Hyclate (Doxycycline Hyclate) 100 Mg Cap 100 MG PO BID for 7 Days, #14 CAP 0 Refills take first dose evening of 10/03/16 Changed Medications: Oxycodone HCl (Oxycodone HCl ER) 10 Mg Tab 10 MG PO Q12H, #60 0 Refills (Changed from: Q6H; Refills: ) Continued Medications: Albuterol Hfa (Ventolin Hfa) 200 Puffs/76775 Mcg Aers 2-4 PUFFS INH Q6H, #1 INHALER Artificial Tear Ointment (Refresh Lacri-Lube) 1 Oin Oin 1 DROP OPB QAM Aspirin (Aspirin 81) 81 Mg Tab 81 MG PO DAILY Bumetanide (Bumex) 1 Mg Tab 1 MG PO QAM Bupropion HCl (Bupropion HCl) 100 Mg Tab 100 MG BID Carvedilol (Coreg) 25 Mg Tab 12.5 MG PO BID, TAB Cetirizine (Zyrtec) 10 Mg Tab 10 MG PO BID, TAB NOON AND 1800 Cholecalciferol (Vitamin D3) 2,000 Unit Cap 1 CAP PO DAILY, CAP Docusate Sodium (Docusate Sodium) 100 Mg Tab 100 MG PO DAILY NOON Emollient (Lubriderm) 1 Lot Lot 1 APPLN TOP Q8 Epinephrine (Epinephrine) 0.3 Mg/0.3 Ml Inj Ferrous Sulfate (Ferrous Sulfate) 325 Mg Tab 325 MG PO HS TAKE WITH FOOD Finasteride (Proscar) 5 Mg Tab 5 MG PO QAM Folic Acid (Folvite) 1 Mg Tab 1 MG PO QAM, TAB Lisinopril (Zestril) 5 Mg Tab 2.5 MG PO QAM, TAB Lisinopril (Lisinopril) 5 Mg Tab 5 MG PO QPM Metoclopramide Hcl (Metoclopramide Hcl) 5 Mg Tab 1 TAB PO Q6H Mometasone Furoate (Nasal) (Mometasone Furoate) 50 Mcg/Act Spr 2 SPRAYS DEB DAILY for Nasal Congestion Nystatin (Topical) (Nystatin) 1 Pow Pow Pantoprazole (Protonix) 40 Mg Tab 40 MG PO AM/NOON, TAB Potassium Ext Rel (Klor-Con) 20 Meq Tabcr 20 MEQ PO DAILY, TAB Ranitidine (Zantac) 150 Mg Tab 2 CAP PO HS Sennosides (Sennosides) 8.6 Mg Tab 8.6 MG PO HS Simvastatin (Zocor) 80 Mg Tab 40 MG PO QPM, TAB Tiotropium [place] (Spiriva Handihaler) 30 Puff/540 Mcg Aerp 1 CAP INH DAILY, INHALER Warfarin Sod (Coumadin) 5 Mg Tab 5 MG PO 5XWK M,W,F,S,S Warfarin Sod (Jantoven) 5 Mg Tab 2.5 MG PO 2XWK, TAB TUES,THUR Referrals At Discharge Follow up Referrals: Orthopedics Referral - Within 1-2 Weeks with Nathan Mauricio M.D. Discharge Exam Physical Exam: General Appearance: no apparent distress ENT: pharynx normal Neck: no JVD Respiratory/Chest: lungs clear, no respiratory distress, no accessory muscle use Cardiovascular: regular rate, rhythm, no gallop, no murmur, normal peripheral pulses Abdomen / GI: normal bowel sounds, non tender, soft, no organomegaly Extremities: no pedal edema Neurologic/Psychiatric: alert, oriented x 3 Skin: + pertinent finding (resolving cellulitis left upper and lower arm ( minimal); minimal erythema and swelling of left olecrenon bursa; minimal tenderness to palpation of the bursa ) Hospital Course HISTORY OF PRESENT ILLNESS: 71yo male with history of chronic systolic/diastolic CHF, CAD, AICD status, ORSE on CPAP, BPH, chronic pain syndrome, COPD, and chronic coumadin use for previous VTE events who presented with worsening pain and swelling of the left arm as well as worsening redness of the upper and lower arm. At time of presentation he appeared to have olecrenon bursitis and cellulitis of the left arm. While in the ER he underwent aspiration of the left olecrenon bursa by Dr. Mauricio from [facility] to exclude septic bursitis. HOSPITAL COURSE: Cell counts from the olecrenon bursal aspiration showed low level of wbcs, gram stain was negative for organisms, and crystal analysis showed no gout or pseudogout. His left elbow felt much better following the aspiration as well as with use of a limited amount of NSAIDs. Dr. Mauricio also recommended mild compression with an POP wrap and use of a sling for immobilization. Fortunately the bursal fluid culture remained negative and blood cultures also stayed negative. In the end his bursitis was likely a reactive, inflammatory process. The patient's left arm cellulitis improved with use of IV antibiotic therapy. At discharge he was transitioned to oral doxycycline. He was advised to continue use of the POP wrap and sling for a few more days and that he could use a limited amount of low-dose motrin, if desired, for 1-2 more days. All other medical problems remained stable while here. Discharge INR was 1.3. He will simply resume his coumadin per his previous regimen. He will need his INR repeated at time of hospital follow-up with his PCP. Total Time Spent: Greater than 30 minutes This includes examination of the patient, discharge planning, medication reconciliation, and communication with other providers. Discharge Instructions Please refer to the electronic Patient Visit Report (Discharge Instructions) for additional information. Follow-Up 1. See Dr. Peterson, PCP, within [address] Mauricio, [facility], in 1-2 weeks Additional Copies To Tramaine Peterson MD; Nathan Mauricio M.D.
== END 2016-10-03 13:53 | disposition home health service (06) | DRG 603 ==
LOC: C.EDB 13:07 → C.MSW 18:53 → ENRESERV 19:49
PROVIDERS: ADMIT Internal Medicine; ATTEND Internal Medicine
PROC: 0M943ZZ Drainage of Left Elbow Bursa and Ligament, Percutaneous Approach (ICD-10-PCS; principal; 2016-10-01)
DX: L03.114 Cellulitis of left upper limb (principal); M70.22 Olecranon bursitis, left elbow; I10 Essential (primary) hypertension; G47.33 Obstructive sleep apnea (adult) (pediatric); N40.0 Benign prostatic hyperplasia without lower urinary tract symptoms; H35.30 Unspecified macular degeneration; E78.5 Hyperlipidemia, unspecified; F32.9 Major depressive disorder, single episode, unspecified; E78.00 Pure hypercholesterolemia, unspecified; Z87.891 Personal history of nicotine dependence; Z95.0 Presence of cardiac pacemaker; I25.2 Old myocardial infarction; Z79.82 Long term (current) use of aspirin; R29.810 Facial weakness; R53.1 Weakness

== ENCOUNTER → 2016-10-08 | Outpatient (CLI) | payer BC ==
[~2016-10-08] MED LIST changes: -CARV25TA2 PO; +CETI10TA84 PO; -CHOL1CAP30 PO; +CHOL2000 PO; +DXY100 PO; -METO-157 PO; +METO5TAB2 PO; -TAMS0.4C38 PO
--- NOTE | 2016-10-08 12:07 | DIAGNOSTIC IMAGING REPORT ---
LUMBAR SPINE 5 VIEWS HISTORY: Pain. Trauma. W01.1988A,M54.6,M54.5 COMPARISON: None. FINDINGS: There is no fracture. No subluxation. Moderate degenerative disc change throughout. IMPRESSION: Moderate degenerative change. No acute bony abnormality. Electronically signed by: Junior Rosas M.D. 10/08/2016 12:06 PM Dictated Date/Time: 10/08/2016 12:05 PM
--- NOTE | 2016-10-08 12:10 | DIAGNOSTIC IMAGING REPORT ---
THORACIC SPINE 3 VIEWS ROUTINE CLINICAL HISTORY: W01.1988A,M54.6,M54.5 thoracic spine pain status post trauma COMPARISON STUDY: No previous studies for comparison. FINDINGS: There is a left subclavian pacer/defibrillator present. There is aortic tortuosity. There is moderate multilevel degenerative change. No acute fractures or traumatic subluxations are visualized on conventional radiographic imaging. IMPRESSION: Moderate multilevel degenerative change. No acute fractures or traumatic subluxations are visualized on conventional radiographic imaging Electronically signed by: Darell Nichols M.D. 10/08/2016 12:08 PM Dictated Date/Time: 10/08/2016 12:07 PM
== END | disposition home or self-care (01) ==
LOC: C.RAD1850 11:38
PROVIDERS: ATTEND Nurse Practitioner Family
DX: M54.5 Low back pain (principal); M54.6 Pain in thoracic spine; W01.198A Fall on same level from slipping, tripping and stumbling with subsequent striking against other object, initial encounter

== ENCOUNTER → 2016-10-26 | Outpatient (CLI) | payer BC ==
[~2016-10-26] MED LIST changes: +OXYC-652 PO; -OXYC-738 PO
--- NOTE | 2016-10-26 11:38 | DIAGNOSTIC IMAGING REPORT ---
CHEST 2 VIEWS ROUTINE CLINICAL HISTORY: T[place]YPNEA COMPARISON STUDY: 09/01/2016 FINDINGS: The heart is mildly enlarged. There is a left-sided pacer/defibrillator present. There is no failure. There is a retrocardiac opacity consistent with a hiatal hernia. There are linear bibasilar opacities consistent with basilar atelectasis/scarring.[ IMPRESSION: Bibasal atelectasis/scarring. Hiatal hernia. No evidence of failure. Electronically signed by: Darell Nichols M.D. 10/26/2016 11:37 AM Dictated Date/Time: 10/26/2016 11:37 AM
== END | disposition home or self-care (01) ==
LOC: C.RAD1850 11:27
PROVIDERS: ATTEND Student in an Organized Health Care Education/Training Program
DX: R06.82 Tachypnea, not elsewhere classified (principal); J98.11 Atelectasis

== ENCOUNTER → 2016-12-25 | Outpatient (CLI) | payer BC ==
--- NOTE | 2016-12-25 13:05 | DIAGNOSTIC IMAGING REPORT ---
CHEST 2 VIEWS ROUTINE CLINICAL HISTORY: J18.9 [id number] COMPARISON STUDY: 10/26/2016 FINDINGS: The heart is enlarged. There is aortic tortuosity/ectasia. There is a left subclavian dual-chamber pacer/defibrillator. There is a retrocardiac opacity consistent with a hiatal hernia. There is bibasal atelectasis/scarring. There is no failure. There is no lobar consolidation. There are no pleural effusions.[ IMPRESSION: Hiatal hernia, and bibasal atelectasis/scarring. No acute findings. Electronically signed by: Darell Nichols M.D. 12/25/2016 1:03 PM Dictated Date/Time: 12/25/2016 1:03 PM
== END | disposition home or self-care (01) ==
LOC: C.RAD1850 12:42
PROVIDERS: ATTEND Physician Assistant
DX: J18.9 Pneumonia, unspecified organism (principal); K44.9 Diaphragmatic hernia without obstruction or gangrene; R91.8 Other nonspecific abnormal finding of lung field

== ENCOUNTER → 2017-02-15 | Outpatient (CLI) | payer BC ==
[~2017-02-15] MED LIST changes: -OXYC-652 PO; +OXYC-738 PO
[2017-02-15 15:34] LABS: BASO % 0.6 %; BASO ABS # 0.05 K/uL (0-0.2); COMPLETE YES; EOS % 7.4 %; HEMATOCRIT 44.9 % (42-52); IG% 0.3 %; LYMPH % 30.6 %; LYMPH ABS # 2.72 K/uL (1.2-3.4); MEAN CELL VOLUME 89.1 fL (80-100); MEAN CORPUSCULAR HEMOGLOBIN 29.6 pg (25-34); MEAN CORPUSCULAR HGB CONC 33.2 g/dl (32-36); MEAN PLATELET VOLUME 10.7 fL (7.4-10.4); MONO % 8.2 %; NEUT % 52.9 %; PLATELET COUNT 302 K/uL (130-400); RED BLOOD COUNT 5.04 M/uL (4.7-6.1); WHITE BLOOD COUNT 8.89 K/uL (4.8-10.8)
--- NOTE | 2017-02-15 15:36 | DIAGNOSTIC IMAGING REPORT ---
CHEST 2 VIEWS ROUTINE CLINICAL HISTORY: I50.22 Chronic systolic congestive heart [id number] COMPARISON STUDY: 12/25/2016 FINDINGS: The heart is enlarged. There is a left subclavian pacer/defibrillator present. There is no failure. There is no lobar consolidation. There is a prominent hiatal hernia. Bibasilar opacities are felt to be atelectatic.[ IMPRESSION: 1. Mild cardiomegaly 2. Bibasilar atelectasis 3. No evidence of failure. No evidence of lobar consolidation. Electronically signed by: Darell Nichols M.D. 02/15/2017 3:35 PM Dictated Date/Time: 02/15/2017 3:34 PM
[2017-02-15 16:08] LABS: ALT/SGPT 32 U/L (12-78); AST/SGOT 19 U/L (15-37); BLOOD UREA NITROGEN 17 mg/dl (7-18); BUN/CREATININE RATIO 15.8 (10-20); CALCIUM 9.2 mg/dl (8.5-10.1); CARBON DIOXIDE 26 mmol/L (21-32); CHLORIDE 101 mmol/L (98-107); GLUCOSE 96 mg/dl (70-99); POTASSIUM 4.3 mmol/L (3.5-5.1); SODIUM 135 mmol/L (136-145)
[2017-02-15 16:11] LABS: ALKALINE PHOSPHATASE 57 U/L (45-117)
== END | disposition home or self-care (01) ==
LOC: C.RAD1850 14:54
PROVIDERS: ATTEND Physician Assistant
DX: I50.22 Chronic systolic (congestive) heart failure (principal); R53.1 Weakness; R91.8 Other nonspecific abnormal finding of lung field

== ENCOUNTER 2017-05-04 14:22 | Inpatient (IN) | payer BC, OTHER ==
[2017-05-04] VITALS (8 sets, daily range): BP systolic 90–117; BP diastolic 53–66; PULSE 67–86; TEMP 36.4–36.7; O2SAT 85–96; BMI 29.5
[~2017-05-04] VITALS: Ht 177.8 cm; Wt 93.5 kg
[~2017-05-04 14:22] MED LIST changes: -BUME1TAB PO; +EPIN0.3I14 INJ; -EPIN1INJ37; -FERR325T5 PO; -FINA5TAB PO; -FOLI1TAB7 PO; +FOLI1TAB8 PO; -NYST1POW7; +NYST1POW7 TOP; +PANT1TAB3 PO; -PANT1TAB48 PO; -SENN8.6T94 PO; -SIMV80TA2 PO; -WLL100
[2017-05-04] MEDS ORDERED: BUME1TAB PO (14:23)
[2017-05-04] MEDS ORDERED: SODIUM CHLORIDE 0.9% 500ML 500 ML IV ONE (15:00)
--- NOTE | 2017-05-04 15:05 | EMERGENCY ROOM VISIT NOTE ---
History First contact with patient: 14:27 Chief Complaint: FALL Stated Complaint: FALL History of Present Illness The patient is a 72 year old male who presents to the Emergency Room with complaints of a fall. He reports he was walking around the side of his van and lost his balance, subsequently falling backwards. He denies LOC, but states he was unable to get up after his fall. He reports pain in the back of his head, 8/ 10 in severity, but denies weakness in his arms or legs, visual disturbances or speech difficulties. The paramedics reports he had some dried blood on the back of his head. He denies neck pain or stiffness. He was diagnosed with a UTI today at an urgent care center and prescribed ciprofloxacin. He has not taken any doses of the cipro as yet. Of note, he reports he has been feeling lightheaded and off balance since last night. He also had one episode where he felt feverish, with chills last night. His reports she took his temperature and it was 100.6. He denies any seizure like activity at this time. He denies rhinorrhea, n/v, cough, sore throat, or congestion. Of note, he is on warfarin for a past history of DVTs and PEs. He also has an AICD in place due to his CHF history, and has a past history of multiple MIs and TIAs. Review of Systems See HPI for pertinent positives & negatives. A total of 10 systems reviewed and were otherwise negative. Past Medical/Surgical History Medical Problems: (1) Ac Myocard Infarct,Oth Inferior Wall,Init Epis Car (2) Acute Venous Embolism & Thrombosis Deep Vessels Distal Le (3) Balance problem (4) balance problem (5) Biliary dyskinesia (6) BPH (benign prostatic hypertrophy) (7) Bursitis of left elbow (8) Cellulitis of left arm (9) Congestive Heart Failure Nos (10) Coronary Atherosclerosis Of [place] Coronary Vessel (11) Depression (12) Diverticulosis Colon (W/O Ment Of Hemorrhage) (13) DVT (deep venous thrombosis) (14) Emphysema (15) Esophageal Reflux (16) Hypertension Nos (17) ICH (intracerebral hemorrhage) (18) Macular degeneration (19) Parox Ventric Tachycard (20) PE (pulmonary embolism) (21) Percutaneous Translum Coron Angioplasty Status (22) Peripheral neuropathy (23) Pure Hypercholesterolem (24) Right upper quadrant abdominal pain (25) Sleep apnea (26) Warfarin anticoagulation Surgical Problems: (1) AICD (automatic cardioverter/defibrillator) present Family History Patient reports no known family medical history. Social History Smoking Status: Former Smoker Alcohol Use: none Drug Use: none Marital Status: Housing Status: lives with family Occupation Status: retired Current/Historical Medications Scheduled Albuterol Hfa (Ventolin Hfa), 2 PUFFS INH Q6H Aluminum/Magnesium/Simeth (Maalox Max Susp), 5 ML PO HS Artificial Tear Ointment (Refresh Lacri-Lube), 1 DROP OPB QAM Aspirin (Aspirin 81), 81 MG PO DAILY Bumetanide (Bumex), 1 MG PO QAM Bupropion HCl (Bupropion HCl), 100 MG BID Carvedilol (Coreg), 12.5 MG PO QPM Carvedilol (Coreg), 25 MG PO QAM Docusate Sodium (Docusate Sodium), 100 MG PO BID Emollient (Lubriderm), 1 APPLN TOP Q8 Epinephrine (Epinephrine), 0.3 MG INJ PRN UD Ferrous Sulfate (Ferrous Sulfate), 325 MG PO HS Finasteride (Proscar), 5 MG PO QAM Folic Acid (Folvite), 1 MG PO QAM Lisinopril (Zestril), 2.5 MG PO QAM Lisinopril (Lisinopril), 5 MG PO QPM Metoclopramide (Reglan), 5 MG PO Q8 Mometasone Furoate (Nasal) (Mometasone Furoate), 2 SPRAYS DEB DAILY Nystatin (Topical) (Nystatin), 1 APPLN TOP BID Oxycodone Hcl (Oxycodone Hcl), 1 TAB PO Q12 Pantoprazole (Protonix), 40 MG PO AM/NOON Potassium Ext Rel (Klor-Con), 20 MEQ PO BID Ranitidine (Zantac), 2 CAP PO HS Sennosides (Sennosides), 8.6 MG PO HS Simvastatin (Zocor), 40 MG PO QPM Tiotropium [place] (Spiriva Handihaler), 1 CAP INH DAILY Warfarin Sod (Coumadin), 5 MG PO 5XWK Warfarin Sod (Jantoven), 2.5 MG PO 2XWK Physical Exam Vital Signs Date Time Temp Pulse Resp B/P (MAP) Pulse Ox O2 Delivery O2 Flow Rate FiO2 05/04/17 20:00 77 18 92/53 95 Room Air 05/04/17 19:24 76 05/04/17 18:30 75 18 97/56 96 Room Air 05/04/17 18:15 76 18 99/58 97 Room Air 05/04/17 17:50 77 18 101/56 95 Room Air 05/04/17 17:22 36.6 80 20 98/63 92 Room Air 05/04/17 17:03 78 16 100/55 94 Room Air 05/04/17 16:30 78 18 109/65 94 Room Air 05/04/17 15:16 87 05/04/17 14:28 37.0 89 18 118/67 93 Room Air Physical Exam HEENT: Head - normocephalic. Small superficial scrapes to back of head, dried blood present, but no active bleeding. Pupils are equal, round, and reactive to light. Extraocular eye muscles are intact and sclera are anicteric. Ears - bilaterally patent canals with noninjected tympanic membranes and no evidence of hemotympanum. Nose - moist nasal mucosa without discharge. Mouth - moist buccal mucosa. Oropharynx is nonerythematous and there is no tonsillar exudate or edema noted. Neck: C-spine tenderness over C2 and C4. Heart: AICD in place. Regular rate and rhythm. There is a normal S1 and S2 with no murmurs, clicks, or gallops appreciated. Lungs: Clear to auscultation bilaterally with no wheezes, rales, or rhonchi. Abdomen: Soft, completely nontender, nondistended, with good bowel sounds. There are no palpable pulsatile masses or hepatosplenomegaly. There is no guarding, rigidity, or rebound noted. Extremities: No evidence of cyanosis, clubbing, or edema. Small superficial laceration over dorsal aspect of left hand. There are easily palpable peripheral pulses. Neuro:The patient is awake and alert, oriented to day, time, and place. Medical Decision & Procedures ER Provider Diagnostic Interpretation: CT HEAD WITHOUT CONTRAST (CT) CLINICAL HISTORY: Posterior head trauma. Patient on warfarin. Pain. COMPARISON STUDY: 09/29/2016 TECHNIQUE: Axial CT of the brain is performed from the vertex to the skull base. IV contrast was not administered for this examination. A dose lowering technique was utilized adhering to the principles of ALARA. CT DOSE: 776.86 mGycm FINDINGS: No intra or extra-axial mass lesions are visualized. There is a focus of very subtle increased attenuation within the right parietal lobe as visualized in image #22/32. Given history of trauma, this could indicate trace hemorrhage. A follow-up MRI, or 6 hour follow-up CT scan is recommended. There is no midline shift. There is no intraventricular hemorrhage. There is no CT evidence of acute cortical infarction. There are patchy white matter hypodensities likely on a small vessel basis. There is no evidence of pathologic ventricular dilatation. There is no evidence of acute sinusitis. There is a posterior scalp contusion. IMPRESSION: 1. Focus of very subtle increased attenuation within the right parietal lobe as visualized in image #22/32. A focus of trace hemorrhage cannot be excluded. A follow-up MRI, 6 hour follow-up CT scan is recommended. CERVICAL SPINE W/O CT DOSE: 508.86 mGycm HISTORY: Trauma fall, c-spine tenderness. r/o fracture TECHNIQUE: Multiaxial CT images of the cervical spine were performed and reformatted in the sagittal and coronal plane without the use of contrast. A dose lowering technique was utilized adhering to the principles of ALARA. COMPARISON: 09/01/2016 FINDINGS: No fractures. No subluxation. Prevertebral soft tissues and the C1-C2 interval are intact. No pneumothorax. Generalized degenerative change. Minimal apical fibrosis. IMPRESSION: No fractures within the cervical spine. Generalized degenerative change. CHEST ONE VIEW PORTABLE CLINICAL HISTORY: sob, r/o infection COMPARISON STUDY: 02/15/2017 FINDINGS: The heart is enlarged. There is a left subclavian pacer/defibrillator present. There is no acute parenchymal consolidation. There is a retrocardiac opacity consistent with a hiatal hernia. There is mild central vascular prominence without evidence of overt failure.[ There is stable atelectasis/scarring at the left lung base. IMPRESSION: 1. Stable cardiomegaly 2. Hiatal hernia 3. No evidence of focal pulmonary consolidation Laboratory Results 05/04/17 15:16 Red Blood Count 4.50, Mean Corpuscular Volume 89.6, Mean Corpuscular Hemoglobin 30.9, Mean Corpuscular Hemoglobin Concent 34.5, Mean Platelet Volume 10.6, Neutrophils (%) (Auto) 86.7, Lymphocytes (%) (Auto) 5.3, Monocytes (%) (Auto) 7.0, Eosinophils (%) (Auto) 0.0, Basophils (%) (Auto) 0.1, Neutrophils # (Auto) 22.61, Lymphocytes # (Auto) 1.38, Monocytes # (Auto) 1.84, Eosinophils # (Auto) 0.01, Basophils # (Auto) 0.03 05/04/17 15:16 Test 05/04/17 15:16 05/04/17 16:07 05/04/17 17:16 05/04/17 20:08 White Blood Count 26.10 K/uL (4.8-10.8) Red Blood Count 4.50 M/uL (4.7-6.1) Hemoglobin 13.9 g/dL (14.0-18.0) Hematocrit 40.3 % (42-52) Mean Corpuscular Volume 89.6 fL (80-100) Mean Corpuscular Hemoglobin 30.9 pg (25-34) Mean Corpuscular Hemoglobin Concent 34.5 g/dl (32-36) Platelet Count 198 K/uL (130-400) Mean Platelet Volume 10.6 fL (7.4-10.4) Neutrophils (%) (Auto) 86.7 % Lymphocytes (%) (Auto) 5.3 % Monocytes (%) (Auto) 7.0 % Eosinophils (%) (Auto) 0.0 % Basophils (%) (Auto) 0.1 % Neutrophils # (Auto) 22.61 K/uL (1.4-6.5) Lymphocytes # (Auto) 1.38 K/uL (1.2-3.4) Monocytes # (Auto) 1.84 K/uL (0.11-0.59) Eosinophils # (Auto) 0.01 K/uL (0-0.5) Basophils # (Auto) 0.03 K/uL (0-0.2) RDW Standard Deviation 45.6 fL (36.4-46.3) RDW Coefficient of Variation 14.0 % (11.5-14.5) Immature Granulocyte % (Auto) 0.9 % Immature Granulocyte # (Auto) 0.23 K/uL (0.00-0.02) Anion Gap 11.0 mmol/L (3-11) Est Creatinine Clear Calc Drug Dose 50.1 ml/min Estimated GFR () 51.5 Estimated GFR (Non- 44.4 BUN/Creatinine Ratio 19.0 (10-20) Calcium Level 9.0 mg/dl (8.5-10.1) Magnesium Level 1.9 mg/dl (1.8-2.4) Total Bilirubin 1.1 mg/dl (0.2-1) Aspartate Amino Transf (AST/SGOT) 18 U/L (15-37) Alanine Aminotransferase (ALT/SGPT) 26 U/L (12-78) Alkaline Phosphatase 48 U/L (45-117) Troponin I < 0.015 ng/ml (0-0.045) Total Protein 7.6 gm/dl (6.4-8.2) Albumin 3.4 gm/dl (3.4-5.0) Globulin 4.2 gm/dl (2.5-4.0) Albumin/Globulin Ratio 0.8 (0.9-2) Prothrombin Time 19.8 SECONDS (9.0-12.0) Prothromb Time International Ratio 1.9 (0.9-1.1) Activated Partial Thromboplast Time 36.4 SECONDS (21.0-31.0) Partial Thromboplastin Ratio 1.4 Urine Color DK YELLOW Urine Appearance CLEAR (CLEAR) Urine pH 5.0 (4.5-7.5) Urine Specific [place] 1.022 (1.000-1.030) Urine Protein 1+ (NEG) Urine Glucose (UA) NEG (NEG) Urine Ketones NEG (NEG) Urine Occult Blood 1+ (NEG) Urine Nitrite NEG (NEG) Urine Bilirubin NEG (NEG) Urine Urobilinogen NEG (NEG) Urine Leukocyte Esterase TRACE (NEG) Urine WBC (Auto) 5-10 /hpf (0-5) Urine RBC (Auto) 5-10 /hpf (0-4) Urine Hyaline Casts (Auto) 1-5 /lpf (0-5) Urine Epithelial Cells (Auto) 5-10 /lpf (0-5) Urine Bacteria (Auto) NEG (NEG) Medications Administered Medications (Trade) Dose Ordered Sig/Charly Route Start Time Stop Time Status Last Admin Dose Admin Sodium Chloride 500 ml @ 999 mls/hr Q31M ONCE IV 05/04/17 15:00 05/04/17 15:30 DC 05/04/17 15:28 999 MLS/HR Levofloxacin (Levaquin / D5W) 750 mg NOW ONCE IV 05/04/17 15:15 05/04/17 15:20 DC 05/04/17 16:26 750 MG Sodium Chloride 500 ml @ 999 mls/hr Q31M STAT IV 05/04/17 16:16 05/04/17 16:46 DC 05/04/17 16:16 999 MLS/HR Acetaminophen (Tylenol Tab) 1,000 mg NOW STAT PO 05/04/17 16:22 05/04/17 16:23 DC 05/04/17 17:06 1,000 MG Phytonadione 2 mg/ Sodium Chloride 50.2 ml @ 100.5 mls/ hr ONE ONCE IV 05/04/17 16:45 05/04/17 17:14 DC 05/04/17 17:19 100.5 MLS/HR Sodium Chloride 1,000 ml @ 999 mls/hr Q1H1M IV 05/04/17 17:15 06/03/17 17:14 05/04/17 17:18 999 MLS/HR Sodium Chloride 1,000 ml @ 999 mls/hr Q1H1M ONCE IV 05/04/17 18:30 05/04/17 19:30 DC 05/04/17 18:50 999 MLS/HR ECG Indication: weakness Rate (beats per minute): 85 Rhythm: other (ventricularly paced) Findings: paced rhythm, no ectopy ED Course 14:27: The patient was evaluated in room C4. A complete history and physical exam was performed. 14;50: The case was discussed with Dr. Samson. 14:56: 500ml IV NS bolus ordered 15:02: Medication allergies discussed with patient. 750mg IV Levaquin ordered. 15:45: The patient was re-evaluated. No new complaints reported. Discussed lab results with him. He was agreeable to admission. 16:15: The patient was reassessed. He requested Tylenol for his headache. Discussed CT scan results with him. 16:16: 500ml IV NS ordered 16:22: 1g oral Tylenol ordered 16:43: Dr. Samson discussed the case with Dr. Travis Solomon [facility] [place] [facility] who recommended 2mg of Vitamin K. 16:45: 2mg IV Phytonadione ordered 16:50: Dr. Samson discussed the case with Dr. Mon, who will evaluate the patient for admission. 17:10: The patient was re-evaluated. He is currently undergoing straight cath to obtain a urine sample. 17:11: Dr. Samson discussed the patient case with Dr. Pierre, [place] [facility] who states the patient is stable to remain at [facility] with a repeat CT in 6-8 hours. 17:15: 1L IV NS ordered 17:32: Patient was reassessed. He states his headache has improved. His repeat BP is 94/61. 1L bolus of IV NS currently infusing. 18:14: Patient re-evaluated. He was sleeping. BP stable at 96/57. 18:31: Dr. 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 Louise receive 3L of fluid. Ordered 1L bolus of IV NS. Medical Decision Etiologies such as sepsis, UTI, hypoglycemia, pneumonia, RI, dehydration, intracranial hemorrhage, C-spine fracture as well as others were entertained. The patient is a 72 year old male who presents to the Emergency Room with complaints of a fall. His white cell count was elevated at 26. Lactic acid was 3.2. He was very dehydrated, and his blood pressure was borderline. He was given 3L of IV NS in the ED, as per the gas pumping station supervisor. He is septic with an unclear source of infection - his UA was unremarkable, CXR did not show any signs of consolidations and CMP was wnl apart from a creatinine of 1.54. He received 750mg of IV Levaquin as antibiotic coverage. His troponin was negative. He warrants admission and possibly transfer to the ICU if his blood pressure drops. His blood pressure remained stable with a systolic in the 90s whilst he was in the ED. He also has a small possible subarachnoid hemorrhage in his brain. This was discussed with neurosurgery in [place] who recommended a follow up CT scan in 6 hours, and did not feel he required transfer at the given time. He was also given 2mg of IV Vitamin K to reverse his INR. His treatment plan was discussed with him and his and they were both in agreement for admission. Dr. Mon will evaluate the patient further for admission. Impression Primary Impression: Sepsis Additional Impressions: Intracranial bleed Fall Departure Information Dispostion Being Evaluated By Hospitalist Referrals Tramaine Peterson MD (PCP) Patient Instructions [facility] Resident Tracking Resident Involvement: Resident Care Provided Care Provided: Adult Hospital Medicine Problem Qualifiers Primary Impression: Sepsis Sepsis type: sepsis due to unspecified organism Qualified Codes: A41.9 - Sepsis, unspecified organism Additional Impressions: Fall Encounter type: initial encounter Qualified Codes: W19.XXXA - Unspecified fall, initial encounter
[2017-05-04] MEDS ORDERED: LEVAQUIN 750MG / 150ML D5W IV ONE (15:15)
--- NOTE | 2017-05-04 15:21 | EMERGENCY ROOM VISIT NOTE ---
History Report prepared by Darius: Yoan Rosales Under the Supervision of: Dr. Ankush Samson M.D. First contact with patient: 14:27 Chief Complaint: FALL Stated Complaint: FALL History of Present Illness The patient is a 72 year old male who presents to the Emergency Room via emergency medical services following a falling episode that occurred just prior to arrival. The patient fell while getting out of his vehicle today. He fell backwards and impacted the back of his head against the ground. The back of his head is now painful. He was unable to get up following the fall, secondary to weakness. He denies any blurry vision. The patient visited Urgent Care this morning due to dizziness and being generally off balance since last night. At Urgent Care the patient was diagnosed with a UTI and prescribed Cipro. He has not taken any antibiotic doses yet. The patient notes that he had a fever of 100.6 degrees and was experiencing chills last evening. He also complains of a persistent cough, secondary to COPD. He denies any recent chest pain, but is having urinary symptoms from the UTI--burning and incontinence. 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 A total of 10 systems reviewed and were otherwise negative. Past Medical & Surgical Medical Problems: (1) Ac Myocard Infarct,Oth Inferior Wall,Init Epis Car (2) Acute Venous Embolism & Thrombosis Deep Vessels Distal Le (3) Balance problem (4) balance problem (5) Biliary dyskinesia (6) BPH (benign prostatic hypertrophy) (7) Bursitis of left elbow (8) Cellulitis of left arm (9) Congestive Heart Failure Nos (10) Coronary Atherosclerosis Of [place] Coronary Vessel (11) Depression (12) Diverticulosis Colon (W/O Ment Of Hemorrhage) (13) DVT (deep venous thrombosis) (14) Emphysema (15) Esophageal Reflux (16) Hypertension Nos (17) ICH (intracerebral hemorrhage) (18) Macular degeneration (19) Parox Ventric Tachycard (20) PE (pulmonary embolism) (21) Percutaneous Translum Coron Angioplasty Status (22) Peripheral neuropathy (23) Pure Hypercholesterolem (24) Right upper quadrant abdominal pain (25) Sleep apnea (26) Warfarin anticoagulation Surgical Problems: (1) AICD (automatic cardioverter/defibrillator) present Family History Patient reports no known family medical history. Social History Smoking Status: Former Smoker Alcohol Use: none Drug Use: none Marital Status: Housing Status: lives with family Occupation Status: retired Current/Historical Medications Scheduled Albuterol Hfa (Ventolin Hfa), 2 PUFFS INH Q6H Aluminum/Magnesium/Simeth (Maalox Max Susp), 5 ML PO HS Artificial Tear Ointment (Refresh Lacri-Lube), 1 DROP OPB QAM Aspirin (Aspirin 81), 81 MG PO DAILY Bumetanide (Bumex), 1 MG PO QAM Bupropion HCl (Bupropion HCl), 100 MG BID Carvedilol (Coreg), 12.5 MG PO QPM Carvedilol (Coreg), 25 MG PO QAM Docusate Sodium (Docusate Sodium), 100 MG PO BID Emollient (Lubriderm), 1 APPLN TOP Q8 Epinephrine (Epinephrine), 0.3 MG INJ PRN UD Ferrous Sulfate (Ferrous Sulfate), 325 MG PO HS Finasteride (Proscar), 5 MG PO QAM Folic Acid (Folvite), 1 MG PO QAM Lisinopril (Zestril), 2.5 MG PO QAM Lisinopril (Lisinopril), 5 MG PO QPM Metoclopramide (Reglan), 5 MG PO Q8 Mometasone Furoate (Nasal) (Mometasone Furoate), 2 SPRAYS DEB DAILY Nystatin (Topical) (Nystatin), 1 APPLN TOP BID Oxycodone Hcl (Oxycodone Hcl), 1 TAB PO Q12 Pantoprazole (Protonix), 40 MG PO AM/NOON Potassium Ext Rel (Klor-Con), 20 MEQ PO BID Ranitidine (Zantac), 2 CAP PO HS Sennosides (Sennosides), 8.6 MG PO HS Simvastatin (Zocor), 40 MG PO QPM Tiotropium Sawyer (Spiriva Handihaler), 1 CAP INH DAILY Warfarin Sod (Coumadin), 5 MG PO 5XWK Warfarin Sod (Jantoven), 2.5 MG PO 2XWK Allergies Coded Allergies: BEE STING (Verified Allergy, Unknown, SWELLING, SOB, 10/01/16) Lidocaine (Verified Allergy, Unknown, RASH, 10/01/16) Penicillins (Verified Allergy, Unknown, SWELLING, DIFFICULTY BREATHING, 10/01/16) SWELLING Hydrocodone (Verified Adverse Reaction, Mild, nausea, 10/01/16) Oxycodone (Verified Adverse Reaction, Mild, nausea, 10/01/16) Physical Exam Vital Signs Date Time Temp Pulse Resp B/P (MAP) Pulse Ox O2 Delivery O2 Flow Rate FiO2 05/04/17 20:00 77 18 92/53 95 Room Air 05/04/17 19:24 76 05/04/17 18:30 75 18 97/56 96 Room Air 05/04/17 18:15 76 18 99/58 97 Room Air 05/04/17 17:50 77 18 101/56 95 Room Air 05/04/17 17:22 36.6 80 20 98/63 92 Room Air 05/04/17 17:03 78 16 100/55 94 Room Air 05/04/17 16:30 78 18 109/65 94 Room Air 05/04/17 15:16 87 05/04/17 14:28 37.0 89 18 118/67 93 Room Air Physical Exam GENERAL: Patient is in no acute distress. HEENT: No acute trauma, normocephalic atraumatic, mucous membranes moist, no nasal congestion, no scleral icterus. No obvious scalp laceration seen. NECK: Stiff collar in place. LUNGS: Clear to auscultation bilaterally, no wheeze, no rhonchi, breath sounds equal. HEART: Without murmurs gallops or rubs, regular rate and rhythm. ABDOMEN: Soft, nontender, bowel sounds positive, no hernias, no peritonitis. EXTREMITIES: No cyanosis or edema, full range of motion of all the joints without pain or difficulty, no signs for acute trauma. NEUROLOGIC: Oriented x 3, no acute motor or sensory deficits, no focal weakness. SKIN: No rash, no jaundice, no diaphoresis. Medical Decision & Procedures ER Provider Diagnostic Interpretation: Radiology results as stated below per my review and radiologist interpretation: CERVICAL SPINE W/O CT DOSE: 508.86 mGycm HISTORY: Trauma fall, c-spine tenderness. r/o fracture TECHNIQUE: Multiaxial CT images of the cervical spine were performed and reformatted in the sagittal and coronal plane without the use of contrast. A dose lowering technique was utilized adhering to the principles of ALARA. COMPARISON: 09/01/2016 FINDINGS: No fractures. No subluxation. Prevertebral soft tissues and the C1-C2 interval are intact. No pneumothorax. Generalized degenerative change. Minimal apical fibrosis. IMPRESSION: No fractures within the cervical spine. Generalized degenerative change. The above report was generated using voice recognition software. It may contain grammatical, syntax or spelling errors. Electronically signed by: Junior Rosas M.D. 05/04/2017 3:56 PM Dictated Date/Time: 05/04/2017 3:50 PM CHEST ONE VIEW PORTABLE CLINICAL HISTORY: sob, r/o infection COMPARISON STUDY: 02/15/2017 FINDINGS: The heart is enlarged. There is a left subclavian pacer/defibrillator present. There is no acute parenchymal consolidation. There is a retrocardiac opacity consistent with a hiatal hernia. There is mild central vascular prominence without evidence of overt failure.[ There is stable atelectasis/scarring at the left lung base. IMPRESSION: 1. Stable cardiomegaly 2. Hiatal hernia 3. No evidence of focal pulmonary consolidation Electronically signed by: Daerll Nichols M.D. 05/04/2017 4:22 PM Dictated Date/Time: 05/04/2017 4:[address] HEAD WITHOUT CONTRAST (CT) CLINICAL HISTORY: Posterior head trauma. Patient on warfarin. Pain. COMPARISON STUDY: 09/29/2016 TECHNIQUE: Axial CT of the brain is performed from the vertex to the skull base. IV contrast was not administered for this examination. A dose lowering technique was utilized adhering to the principles of ALARA. CT DOSE: 776.86 mGycm FINDINGS: No intra or extra-axial mass lesions are visualized. There is a focus of very subtle increased attenuation within the right parietal lobe as visualized in image #22/32. Given history of trauma, this could indicate trace hemorrhage. A follow-up MRI, or 6 hour follow-up CT scan is recommended. There is no midline shift. There is no intraventricular hemorrhage. There is no CT evidence of acute cortical infarction. There are patchy white matter hypodensities likely on a small vessel basis. There is no evidence of pathologic ventricular dilatation. There is no evidence of acute sinusitis. There is a posterior scalp contusion. IMPRESSION: 1. Focus of very subtle increased attenuation within the right parietal lobe as visualized in image #22/32. A focus of trace hemorrhage cannot be excluded. A follow-up MRI, 6 hour follow-up CT scan is recommended. Electronically signed by: Darell Nichols M.D. 05/04/2017 3:55 PM Dictated Date/Time: 05/04/2017 3:50 PM Laboratory Results 05/04/17 15:16 Red Blood Count 4.50, Mean Corpuscular Volume 89.6, Mean Corpuscular Hemoglobin 30.9, Mean Corpuscular Hemoglobin Concent 34.5, Mean Platelet Volume 10.6, Neutrophils (%) (Auto) 86.7, Lymphocytes (%) (Auto) 5.3, Monocytes (%) (Auto) 7.0, Eosinophils (%) (Auto) 0.0, Basophils (%) (Auto) 0.1, Neutrophils # (Auto) 22.61, Lymphocytes # (Auto) 1.38, Monocytes # (Auto) 1.84, Eosinophils # (Auto) 0.01, Basophils # (Auto) 0.03 05/04/17 15:16 Test 05/04/17 15:16 05/04/17 16:07 05/04/17 17:16 05/04/17 20:08 White Blood Count 26.10 K/uL (4.8-10.8) Red Blood Count 4.50 M/uL (4.7-6.1) Hemoglobin 13.9 g/dL (14.0-18.0) Hematocrit 40.3 % (42-52) Mean Corpuscular Volume 89.6 fL (80-100) Mean Corpuscular Hemoglobin 30.9 pg (25-34) Mean Corpuscular Hemoglobin Concent 34.5 g/dl (32-36) Platelet Count 198 K/uL (130-400) Mean Platelet Volume 10.6 fL (7.4-10.4) Neutrophils (%) (Auto) 86.7 % Lymphocytes (%) (Auto) 5.3 % Monocytes (%) (Auto) 7.0 % Eosinophils (%) (Auto) 0.0 % Basophils (%) (Auto) 0.1 % Neutrophils # (Auto) 22.61 K/uL (1.4-6.5) Lymphocytes # (Auto) 1.38 K/uL (1.2-3.4) Monocytes # (Auto) 1.84 K/uL (0.11-0.59) Eosinophils # (Auto) 0.01 K/uL (0-0.5) Basophils # (Auto) 0.03 K/uL (0-0.2) RDW Standard Deviation 45.6 fL (36.4-46.3) RDW Coefficient of Variation 14.0 % (11.5-14.5) Immature Granulocyte % (Auto) 0.9 % Immature Granulocyte # (Auto) 0.23 K/uL (0.00-0.02) Anion Gap 11.0 mmol/L (3-11) Est Creatinine Clear Calc Drug Dose 50.1 ml/min Estimated GFR () 51.5 Estimated GFR (Non- 44.4 BUN/Creatinine Ratio 19.0 (10-20) Calcium Level 9.0 mg/dl (8.5-10.1) Magnesium Level 1.9 mg/dl (1.8-2.4) Total Bilirubin 1.1 mg/dl (0.2-1) Aspartate Amino Transf (AST/SGOT) 18 U/L (15-37) Alanine Aminotransferase (ALT/SGPT) 26 U/L (12-78) Alkaline Phosphatase 48 U/L (45-117) Troponin I < 0.015 ng/ml (0-0.045) Total Protein 7.6 gm/dl (6.4-8.2) Albumin 3.4 gm/dl (3.4-5.0) Globulin 4.2 gm/dl (2.5-4.0) Albumin/Globulin Ratio 0.8 (0.9-2) Prothrombin Time 19.8 SECONDS (9.0-12.0) Prothromb Time International Ratio 1.9 (0.9-1.1) Activated Partial Thromboplast Time 36.4 SECONDS (21.0-31.0) Partial Thromboplastin Ratio 1.4 Urine Color DK YELLOW Urine Appearance CLEAR (CLEAR) Urine pH 5.0 (4.5-7.5) Urine Specific Russell 1.022 (1.000-1.030) Urine Protein 1+ (NEG) Urine Glucose (UA) NEG (NEG) Urine Ketones NEG (NEG) Urine Occult Blood 1+ (NEG) Urine Nitrite NEG (NEG) Urine Bilirubin NEG (NEG) Urine Urobilinogen NEG (NEG) Urine Leukocyte Esterase TRACE (NEG) Urine WBC (Auto) 5-10 /hpf (0-5) Urine RBC (Auto) 5-10 /hpf (0-4) Urine Hyaline Casts (Auto) 1-5 /lpf (0-5) Urine Epithelial Cells (Auto) 5-10 /lpf (0-5) Urine Bacteria (Auto) NEG (NEG) Laboratory results reviewed by me. Medications Administered Medications (Trade) Dose Ordered Sig/Charly Route Start Time Stop Time Status Last Admin Dose Admin Sodium Chloride 500 ml @ 999 mls/hr Q31M ONCE IV 05/04/17 15:00 05/04/17 15:30 DC 05/04/17 15:28 999 MLS/HR Levofloxacin (Levaquin / D5W) 750 mg NOW ONCE IV 05/04/17 15:15 05/04/17 15:20 DC 05/04/17 16:26 750 MG Sodium Chloride 500 ml @ 999 mls/hr Q31M STAT IV 05/04/17 16:16 05/04/17 16:46 DC 05/04/17 16:16 999 MLS/HR Acetaminophen (Tylenol Tab) 1,000 mg NOW STAT PO 05/04/17 16:22 05/04/17 16:23 DC 05/04/17 17:06 1,000 MG Phytonadione 2 mg/ Sodium Chloride 50.2 ml @ 100.5 mls/ hr ONE ONCE IV 05/04/17 16:45 05/04/17 17:14 DC 05/04/17 17:19 100.5 MLS/HR Sodium Chloride 1,000 ml @ 999 mls/hr Q1H1M IV 05/04/17 17:15 06/03/17 17:14 05/04/17 17:18 999 MLS/HR Sodium Chloride 1,000 ml @ 999 mls/hr Q1H1M ONCE IV 05/04/17 18:30 05/04/17 19:30 DC 05/04/17 18:50 999 MLS/HR ECG Indication: weakness Rate (beats per minute): 85 Rhythm: other (Ventricular pacemaker) Findings: no acute ischemic change, other (No dysrythmia) ED Course 1438: The patient was evaluated by the Resident at this time. 1500: Ordered Sodium Chloride 500 mL @ 999 mL/hr IV. 1512: The patient was evaluated in room C4. A complete history and physical exam was performed. 1515: Ordered Levofloxacin 750 mg IV. 1616: Ordered Sodium Chloride 500 mL @ 999 mL/hr IV. 1622: Ordered Tylenol 1000 mg PO. 1638: I reassessed the patient at this time. He is doing well. 1643: I discussed the case with Dr. Milla [place] [facility] [place] She suggests administering 2 mg of vitamin K IV for the well as coagulopathy. 1645: Ordered Phytonadione 2 mg 50.2 mL @ 100.5 mL/hr IV. 1650: I discussed the case with Dr. Mon at this time. He would like me to consult [facility] to see if they patient is ok to stay in the hospital. 1709: I discussed the case with Dr. Pierre - [facility] at this time. He believes that the patient can stay in our department. He does not need to be transferred emergently. He suggests CT repeat in 6 hours and reversal of the INR. 1712: I discussed the case with Dr. Mon [place] [facility] [place] He will evaluate the patient for further treatment. 1715: Ordered Sodium Chloride 1000 mL @ 999 mL/hr IV. Medical Decision Differential Diagnosis Includes; Sepsis, bacteremia, UTI, pneumonia, anemia, electrolyte imbalance, dysrhythmia, myocardial infarction, dehydration, intracranial bleeding, C-spine injury. There is a significant leukocytosis at 26,000-this is consistent with infection. No concerning anemia. Renal panel testing suggests some dehydration. There was no hepatitis. Lactic acid level was elevated at just over 3, this is consistent with sepsis and/or dehydration. INR was elevated at 1.9, consistent with the Coumadin use. EKG showed a functioning ventricular pacemaker. Cardiac enzyme testing was not consistent with acute cardiac injury. Chest x-ray did not show evidence for pneumonia or CHF. C-spine CT showed no acute fracture. Brain CT showed a potential small area of subarachnoid hemorrhage. No midline shift. No skull fracture. Urinalysis showed possibly contamination, no obvious infection. Urine culture and blood cultures are pending. The patient was aggressively managed. He appeared septic. His blood pressure was somewhat low. The patient was given a total of 3 L of IV saline. He received IV Levaquin as antibiotic coverage. After talking with the coagulation energy sales consultant, the patient received 2 mg of IV vitamin K for his coagulopathy. I discussed the case with the [facility]. There was no need for emergent transfer to their facility. The amount of bleeding was minimal. Correction of the coagulopathy with a repeat head CT in several hours was recommended. I spoke to the family, I talked with the caser shoe parts. The on-call hospitalist was consulted. I am concerned for sepsis, the source is unclear. I did order for an abdominal and pelvis CT to look for the possibility of diverticulitis, this result is pending. The patient is quite ill and will require a hospital stay. He has had multiple IVs established to allow for good access. Patient will likely be admitted to the ICU as his blood pressure is tenuous even despite the IV fluids. Consults Time Called: 1633 Consulting Physician: Dr. Milla [facility] Returned Call: 1643 I discussed the case with Dr. Milla [facility] Pathology. She suggests administering 2 mg of vitamin K IV for the coagulopathy. Additional Consults: Time Called: 1700 Consulted Physician: Dr. Pierre -[facility] Returned Call: 1709 Additional Comments: I discussed the case with Dr. Gab[facility] at this time. He believes that the patient can stay in our department. He does not need to be transferred emergently. He suggests CT repeat in 6 hours and reversal of the INR. Time Called: 1712 Consulted Physician: Dr. Elieser STEV[facility] Hospitalist Returned Call: 1712 Additional Comments: I discussed the case with Dr. Elieser STEVEN Hospitalist. He will evaluate the patient for further treatment. Impression Primary Impression: Sepsis Additional Impressions: Intracranial bleed Fall Coagulopathy Critical Care I have personally spent greater than 40 minutes of critical care time in the direct management of this patient. This includes bedside care, interpretation of diagnostic studies, and testing, discussion with consultants, patient, and family members, and other required patient management activities. This 40 minutes is in excess of all separately billable procedures. Scribe Attestation The scribe's documentation has been prepared under my direction and personally reviewed by me in its entirety. I confirm that the note above accurately reflects all work, treatment, procedures, and medical decision making performed by me. Departure Information Dispostion Being Evaluated By Hospitalist Referrals Tramaine Peterson MD (PCP) Patient Instructions My [facility] Problem Qualifiers
[2017-05-04] MEDS ORDERED: OXYC-164 PO (15:36)
[2017-05-04] MEDS ORDERED: CARV25TA2 PO (15:36)
[2017-05-04] MEDS ORDERED: EMOL-19 TOP (15:36)
[2017-05-04] MEDS ORDERED: ALUMSUS2 PO (15:41)
[2017-05-04] MEDS ORDERED: METO-157 PO (15:41)
[2017-05-04 15:52] LABS: HEMATOCRIT 40.3 % (42-52); HEMOGLOBIN 13.9 g/dL (14.0-18.0); MEAN CELL VOLUME 89.6 fL (80-100); MEAN CORPUSCULAR HEMOGLOBIN 30.9 pg (25-34); MEAN CORPUSCULAR HGB CONC 34.5 g/dl (32-36); MEAN PLATELET VOLUME 10.6 fL (7.4-10.4); PLATELET COUNT 198 K/uL (130-400); RED CELL DISTRIBUTION WIDTH SD 45.6 fL (36.4-46.3)
--- NOTE | 2017-05-04 15:56 | DIAGNOSTIC IMAGING REPORT ---
CT HEAD WITHOUT CONTRAST (CT) CLINICAL HISTORY: Posterior head trauma. Patient on warfarin. Pain. COMPARISON STUDY: 09/29/2016 TECHNIQUE: Axial CT of the brain is performed from the vertex to the skull base. IV contrast was not administered for this examination. A dose lowering technique was utilized adhering to the principles of ALARA. CT DOSE: 776.86 mGycm FINDINGS: No intra or extra-axial mass lesions are visualized. There is a focus of very subtle increased attenuation within the right parietal lobe as visualized in image #22/32. Given history of trauma, this could indicate trace hemorrhage. A follow-up MRI, or 6 hour follow-up CT scan is recommended. There is no midline shift. There is no intraventricular hemorrhage. There is no CT evidence of acute cortical infarction. There are patchy white matter hypodensities likely on a small vessel basis. There is no evidence of pathologic ventricular dilatation. There is no evidence of acute sinusitis. There is a posterior scalp contusion. IMPRESSION: 1. Focus of very subtle increased attenuation within the right parietal lobe as visualized in image #22/32. A focus of trace hemorrhage cannot be excluded. A follow-up MRI, 6 hour follow-up CT scan is recommended. Electronically signed by: Darell Nichols M.D. 05/04/2017 3:55 PM Dictated Date/Time: 05/04/2017 3:50 PM
--- NOTE | 2017-05-04 15:57 | DIAGNOSTIC IMAGING REPORT ---
CERVICAL SPINE W/O CT DOSE: 508.86 mGycm HISTORY: Trauma fall, c-spine tenderness. r/o fracture TECHNIQUE: Multiaxial CT images of the cervical spine were performed and reformatted in the sagittal and coronal plane without the use of contrast. A dose lowering technique was utilized adhering to the principles of ALARA. COMPARISON: 09/01/2016 FINDINGS: No fractures. No subluxation. Prevertebral soft tissues and the C1-C2 interval are intact. No pneumothorax. Generalized degenerative change. Minimal apical fibrosis. IMPRESSION: No fractures within the cervical spine. Generalized degenerative change. The above report was generated using voice recognition software. It may contain grammatical, syntax or spelling errors. Electronically signed by: Junior Rosas M.D. 05/04/2017 3:56 PM Dictated Date/Time: 05/04/2017 3:50 PM
[2017-05-04] MEDS ORDERED: SODIUM CHLORIDE 0.9% 500ML 500 ML IV STA (16:16)
[2017-05-04] MEDS ORDERED: ACETAMINOPHEN 500 MG TAB PO STA (16:22)
[2017-05-04 16:24] LABS: ALBUMIN 3.4 gm/dl (3.4-5.0); ALT/SGPT 26 U/L (12-78); BLOOD UREA NITROGEN 29 mg/dl (7-18); CARBON DIOXIDE 22 mmol/L (21-32); CREATININE 1.54 mg/dl (0.60-1.40); GLUCOSE 150 mg/dl (70-99); POTASSIUM 4.6 mmol/L (3.5-5.1); SODIUM 133 mmol/L (136-145)
--- NOTE | 2017-05-04 16:24 | DIAGNOSTIC IMAGING REPORT ---
CHEST ONE VIEW PORTABLE CLINICAL HISTORY: sob, r/o infection COMPARISON STUDY: 02/15/2017 FINDINGS: The heart is enlarged. There is a left subclavian pacer/defibrillator present. There is no acute parenchymal consolidation. There is a retrocardiac opacity consistent with a hiatal hernia. There is mild central vascular prominence without evidence of overt failure.[ There is stable atelectasis/scarring at the left lung base. IMPRESSION: 1. Stable cardiomegaly 2. Hiatal hernia 3. No evidence of focal pulmonary consolidation Electronically signed by: Darell Nichols M.D. 05/04/2017 4:22 PM Dictated Date/Time: 05/04/2017 4:21 PM
[2017-05-04 16:28] LABS: INR 1.9 (0.9-1.1); PTT PATIENT 36.4 SECONDS (21.0-31.0)
[2017-05-04 16:29] LABS: ALKALINE PHOSPHATASE 48 U/L (45-117); AST/SGOT 18 U/L (15-37); TOTAL PROTEIN 7.6 gm/dl (6.4-8.2)
[2017-05-04 16:32] LABS: BASO % 0.1 %; BASO ABS # 0.03 K/uL (0-0.2); EOS ABS # 0.01 K/uL (0-0.5); IG# 0.23 K/uL (0.00-0.02); LYMPH % 5.3 %; LYMPH ABS # 1.38 K/uL (1.2-3.4); MONO ABS # 1.84 K/uL (0.11-0.59); NEUT % 86.7 %; NEUT ABS # 22.61 K/uL (1.4-6.5)
[2017-05-04] MEDS ORDERED: PHYTONADIONE INJ 2 MG in SODIUM CHLORIDE 0.9% 50ML 50 ML IV ONE (16:45)
[2017-05-04] MEDS ORDERED: SODIUM CHLORIDE 0.9% 1000ML 1,000 ML IV SCH (17:15)
[2017-05-04] MEDS ORDERED: WLL100 (17:59)
[2017-05-04] MEDS ORDERED: SODIUM CHLORIDE 0.9% 1000ML 1,000 ML IV ONE (18:30)
[2017-05-04] MEDS ORDERED: FINA5TAB PO (18:58)
[2017-05-04] MEDS ORDERED: FERR325T5 PO (19:11)
--- NOTE | 2017-05-04 19:19 | History and Physical ---
History & Physical Date & Time of Service: May 04, 2017 at 18:13 Chief Complaint: FALL Primary Care Physician: Tramaine Peterson MD History of Present Illness Source: patient 72 y/o M Hx combined CHF, CAD, AICD/pacer, COPD, ROSE, BPH, history of PE on Coumadin. Was feeling weak, dizzy and generally ill beginning yesterday, reporting rigors and a fever of 100.6 at home. He presumed he had a UTI and presented to an urgent care center this AM. He was prescribed antibiotics despite a negative UA. When exiting his vehicle this afternoon, he lost his balance and fell sustaining trauma to the back of his head. He was unable to get up after his fall and was eventually transported to the ER. A CT head was suspicious for trace hemorrhage in the right parietal lobe. The pt denies CP, SOB, n/v. He does report some abdominal distention/bloating and states that he had mild LLQ pain earlier. He also states that he had diarrhea one day prior, although not today. The pt has had a borderline low BP while in the ER. Initial labs are notable for impressive leukocytosis, MERT, elevated lactic. The results of the CT were review with the neurosurgery service at [facility]. We have been advise on a repeat CT 6 hours from the original. Emergent transfer was not recommended. Past Medical/Surgical History 1. chronic systolic/diastolic CHF, EF 40-45% 2. CAD with prior h/o IN 3. h/o multiple VTE events (DVT and PE) 4. BPH 5. h/o diverticulitis 6. depression 7. COPD 8. h/o agent orange exposure during the [place] War 9. neuropathy of the hands & feet 10. HTN 11. ROSE on CPAP 12. GERD 13. hyperlipidemia 14. h/o ventricular tachycardia 15. macular degeneration PSH: 1. vasectomy 2. carey procedure 3. left eye surgery 4. hernia repair x 3 5. coronary stents 6. AICD/pacer placement 7. cataract extraction Family History Patient reports no known family medical history. Father - [place] Mother - dementia Social History Smoking Status: Former Smoker Drug Use: none Marital Status: Housing status: lives with family Occupational Status: retired Immunizations History of Influenza Vaccine: Yes Influenza Vaccine Date: Dec 29, 2010 History of Tetanus Vaccine?: Yes Tetanus Immunization Date: Oct 28, 2010 History of Pneumococcal: Yes Pneumococcal Date: Jan 28, 2011 History of Hepatitis B Vaccine: Yes Allergies Coded Allergies: BEE STING (Verified Allergy, Unknown, SWELLING, SOB, 10/01/16) Lidocaine (Verified Allergy, Unknown, RASH, 10/01/16) Penicillins (Verified Allergy, Unknown, SWELLING, DIFFICULTY BREATHING, 10/01/16) SWELLING Hydrocodone (Verified Adverse Reaction, Mild, nausea, 10/01/16) Oxycodone (Verified Adverse Reaction, Mild, nausea, 10/01/16) Home Medications Scheduled Albuterol Hfa (Ventolin Hfa), 2 PUFFS INH Q6H Aluminum/Magnesium/Simeth (Maalox Max Susp), 5 ML PO HS Artificial Tear Ointment (Refresh Lacri-Lube), 1 DROP OPB QAM Aspirin (Aspirin 81), 81 MG PO DAILY Bumetanide (Bumex), 1 MG PO QAM Bupropion HCl (Bupropion HCl), 100 MG BID Carvedilol (Coreg), 12.5 MG PO QPM Carvedilol (Coreg), 25 MG PO QAM Docusate Sodium (Docusate Sodium), 100 MG PO BID Emollient (Lubriderm), 1 APPLN TOP Q8 Epinephrine (Epinephrine), 0.3 MG INJ PRN UD Ferrous Sulfate (Ferrous Sulfate), 325 MG PO HS Finasteride (Proscar), 5 MG PO QAM Folic Acid (Folvite), 1 MG PO QAM Lisinopril (Zestril), 2.5 MG PO QAM Lisinopril (Lisinopril), 5 MG PO QPM Metoclopramide (Reglan), 5 MG PO Q8 Mometasone Furoate (Nasal) (Mometasone Furoate), 2 SPRAYS DEB DAILY Nystatin (Topical) (Nystatin), 1 APPLN TOP BID Oxycodone Hcl (Oxycontin), 0.5 TAB PO BID Pantoprazole (Protonix), 40 MG PO AM/NOON Potassium Ext Rel (Klor-Con), 20 MEQ PO BID Ranitidine (Zantac), 2 CAP PO HS Sennosides (Sennosides), 8.6 MG PO HS Simvastatin (Zocor), 40 MG PO QPM Tiotropium [place] (Spiriva Handihaler), 1 CAP INH DAILY Warfarin Sod (Coumadin), 5 MG PO 5XWK Warfarin Sod (Jantoven), 2.5 MG PO 2XWK Review of Systems Constitutional: + fever, + chills, + weakness, + fatigue, No sweats Eyes: No worsening of vision ENT: No hearing loss, No unusual epistaxis, No nasal symptoms Respiratory: No cough, No sputum, No wheezing Cardiovascular: No chest pain, No orthopnea, No PND Abdomen: + pain, + diarrhea, + problem reported (distention) Musculoskeletal: No joint pain Genitourinary - Male: + dysuria, + urinary frequency, + urinary urgency Neurologic: + weakness, + balance problems, No memory loss Psychiatric: No depression symptoms Endocrine: + fatigue Hematologic / Lymphatic: No abnormal bleeding/bruising Integumentary: No rash Allergic / Immunologic: No environmental allergies Physical Exam Vital Signs Date Time Temp Pulse Resp B/P (MAP) Pulse Ox O2 Delivery O2 Flow Rate FiO2 05/04/17 17:22 36.6 80 20 98/63 92 Room Air 05/04/17 17:03 78 16 100/55 94 Room Air 05/04/17 16:30 78 18 109/65 94 Room Air 05/04/17 15:16 87 05/04/17 14:28 37.0 89 18 118/67 93 Room Air General Appearance: WD/WN, no apparent distress Head: normocephalic Eyes: normal inspection ENT: normal ENT inspection, pharynx normal Neck: supple, no JVD Respiratory/Chest: chest non-tender, lungs clear, normal breath sounds Cardiovascular: regular rate, rhythm, no edema, no gallop Abdomen/GI: normal bowel sounds, + pertinent finding (Mild distention - no significant tenderness to palpation) Back: normal inspection, no CVA tenderness, no muscle spasm, normal range of motion Extremities/Musculoskelatal: normal inspection, no calf tenderness, normal capillary refill, no pedal edema, normal range of motion 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, no motor/sensory deficits, alert, oriented x 3 Skin: normal color, warm/dry, no rash Diagnostics Laboratory Results Results Past 24 Hours Test 05/04/17 15:16 05/04/17 15:25 05/04/17 16:07 05/04/17 17:16 Range/Units White Blood Count 26.10 4.8-10.8 K/uL Red Blood Count 4.50 4.7-6.1 M/uL Hemoglobin 13.9 14.0-18.0 g/dL Hematocrit 40.3 42-52 % Mean Corpuscular Volume 89.6 80-100 fL Mean Corpuscular Hemoglobin 30.9 25-34 pg Mean Corpuscular Hemoglobin Concent 34.5 32-36 g/dl Platelet Count 198 130-400 K/uL Mean Platelet Volume 10.6 7.4-10.4 fL Neutrophils (%) (Auto) 86.7 % Lymphocytes (%) (Auto) 5.3 % Monocytes (%) (Auto) 7.0 % Eosinophils (%) (Auto) 0.0 % Basophils (%) (Auto) 0.1 % Neutrophils # (Auto) 22.61 1.4-6.5 K/uL Lymphocytes # (Auto) 1.38 1.2-3.4 K/uL Monocytes # (Auto) 1.84 0.11-0.59 K/uL Eosinophils # (Auto) 0.01 0-0.5 K/uL Basophils # (Auto) 0.03 0-0.2 K/uL RDW Standard Deviation 45.6 36.4-46.3 fL RDW Coefficient of Variation 14.0 11.5-14.5 % Immature Granulocyte % (Auto) 0.9 % Immature Granulocyte # (Auto) 0.23 0.00-0.02 K/uL Sodium Level 133 136-145 mmol/L Potassium Level 4.6 3.5-5.1 mmol/L Chloride Level 99 98-107 mmol/L Carbon Dioxide Level 22 21-32 mmol/L Anion Gap 11.0 3-11 mmol/L Blood Urea Nitrogen 29 7-18 mg/dl Creatinine 1.54 0.60-1.40 mg/dl Est Creatinine Clear Calc Drug Dose 50.1 ml/min Estimated GFR () 51.5 Estimated GFR (Non- 44.4 BUN/Creatinine Ratio 19.0 10-20 Random Glucose 150 70-99 mg/dl Calcium Level 9.0 8.5-10.1 mg/dl Magnesium Level 1.9 1.8-2.4 mg/dl Total Bilirubin 1.1 0.2-1 mg/dl Aspartate Amino Transf (AST/SGOT) 18 15-37 U/L Alanine Aminotransferase (ALT/SGPT) 26 12-78 U/L Alkaline Phosphatase 48 45-117 U/L Troponin I < 0.015 0-0.045 ng/ml Total Protein 7.6 6.4-8.2 gm/dl Albumin 3.4 3.4-5.0 gm/dl Globulin 4.2 2.5-4.0 gm/dl Albumin/Globulin Ratio 0.8 0.9-2 Lactic Acid Level 3.2 0.4-2.0 mmol/L Prothrombin Time 19.8 9.0-12.0 SECONDS Prothromb Time International Ratio 1.9 0.9-1.1 Activated Partial Thromboplast Time 36.4 21.0-31.0 SECONDS Partial Thromboplastin Ratio 1.4 Urine Color DK YELLOW Urine Appearance CLEAR CLEAR Urine pH 5.0 4.5-7.5 Urine Specific [place] 1.022 1.000-1.030 Urine Protein 1+ NEG Urine Glucose (UA) NEG NEG Urine Ketones NEG NEG Urine Occult Blood 1+ NEG Urine Nitrite NEG NEG Urine Bilirubin NEG NEG Urine Urobilinogen NEG NEG Urine Leukocyte Esterase TRACE NEG Urine WBC (Auto) 5-10 0-5 /hpf Urine RBC (Auto) 5-10 0-4 /hpf Urine Hyaline Casts (Auto) 1-5 0-5 /lpf Urine Epithelial Cells (Auto) 5-10 0-5 /lpf Urine Bacteria (Auto) NEG NEG Microbiology Results 05/04/17 Blood Culture, Received Pending 05/04/17 Blood Culture, Received Pending 05/04/17 Urine Culture, Received Pending Diagnostic Radiology CT head: Focus of very subtle increased attenuation within the right parietal lobe. A focus of trace hemorrhage cannot be excluded. EKG Paced rhythm - no evidence of acte ischemia Impression Assessment and Plan 72 y/o M Hx combined CHF, CAD, AICD/pacer, COPD, ROSE, BPH, history of PE on Coumadin. Was feeling weak, dizzy and generally ill beginning yesterday, reporting rigors and a fever of 100.6 at home. He presumed he had a UTI and presented to an urgent care center this AM. He was prescribed antibiotics despite a negative UA. When exiting his vehicle this afternoon, he lost his balance and fell sustaining trauma to the back of his head. He was unable to get up after his fall and was eventually transported to the ER. A CT head was suspicious for trace hemorrhage in the right parietal lobe. The pt denies CP, SOB, n/v. He does report some abdominal distention/bloating and states that he had mild LLQ pain earlier. He also states that he had diarrhea one day prior, although not today. The pt has had a borderline low BP while in the ER. Initial labs are notable for impressive leukocytosis, MERT, elevated lactic. 1) Suspected ICH following head trauma - The results of the CT were review with the neurosurgery service at [facility]. We have been advise on a repeat CT 6 hours from the original. Emergent transfer was not recommended. We contacted hematology regarding his INR which is 1.9 and were advised on IV Vitamin K which was administered. 2) Infection/sepsis - fever, elevated lactic, low BP - source is not at all clear - the pt is pending a CT abdomen. He received Levaquin in the ER, we would opt to add Cefepime if in intraabdominal source becomes apparent or if his BP does not improve with fluid administration alone. We have initiated a sepsis protocol although his numbers are borderline. If he fails to respond to fluid resuscitation, we will transfer to the ICU. A repeat lactic will follow 2.8 L fluid. 3) CHF - combined systolic/diastolic - Bumex is held - a Bblocker will be provided with parameters. He is receiving a large fluid bolus and is prone to overload. He may require pressor support if he develops vascular congestion and his TUSHAR remains low. 4) MERT - presumed due to dehydration - IVF - recheck BMP - diuretics held, simone held 5) ACS - no evidence of acute exacerbation - ASA, Statin held 6) ROSE - will provide CPAP 7) COPD - no evidence of exacerbation - cont prescribed inhaler Full code - SCDs Total time for this admit including review of labs, meds, imaging - discussion with pt and ER attending. Resuscitation Status FULL RESUSCITATION VTE Prophylaxis Given or contraindicated: SCD's
[2017-05-04] MEDS ORDERED: ACETAMINOPHEN 325 MG TAB PO PRN (19:30)
[2017-05-04] MEDS ORDERED: ONDANSETRON INJ 2 MG/ML 2 ML VIAL IV PRN (19:30)
[2017-05-04] MEDS ORDERED: MAGNESIUM HYDROXIDE SUSP 30 ML UDC PO PRN (19:30)
[2017-05-04] MEDS ORDERED: LORAZEPAM 0.5 MG TAB PO PRN (19:30)
[2017-05-04] MEDS ORDERED: ICU PROTOCOL FOR HYPERGLYCEMIA PRN ×2 (19:30→21:45)
[2017-05-04] MEDS ORDERED: SENN8.6T94 PO (19:34)
--- NOTE | 2017-05-04 19:34 | DIAGNOSTIC IMAGING REPORT ---
CT SCAN OF THE ABDOMEN AND PELVIS WITHOUT CONTRAST CLINICAL HISTORY: Abdominal pain. Sepsis. Possible diverticulitis. COMPARISON STUDY: 02/18/2016 TECHNIQUE: CT scan of the abdomen and pelvis was performed from the lung bases to the proximal femurs. Images are reviewed in the axial, sagittal, and coronal planes. IV contrast was not administered for this examination. A dose lowering technique was utilized adhering to the principles of ALARA. CT DOSE: 744.24 mGy.cm FINDINGS: Lower chest: There is an implantable defibrillator present. As a hiatal hernia. There are bibasal atelectatic changes. There is subpleural right lower lobe lung cysts. Liver: The unenhanced liver is normal in size, contour, and attenuation. There is no intrahepatic biliary ductal dilatation. Gallbladder: Surgically absent Spleen: Normal in size and attenuation. Pancreas: Unremarkable. Adrenal glands: Unremarkable. Kidneys: There is 24 mm left renal cyst. There is lower pole left renal cortical scarring. There is a 4 mm lower pole right renal calculus. There is no hydronephrosis. No ureteral calculi are visualized. Bowel: There are no transition zones to indicate bowel obstruction. There is colonic diverticulosis. No acute peridiverticular inflammatory changes are visualized. The appendix appears normal. Peritoneum: No free air is visualized. There is no ascites. There is a recurrent fat-containing right inguinal hernia status post prior hernia repair. There is unexplained infiltration of the fat adjacent to the bladder, rectum and prostate. Given history of pain and sepsis, this may be on an inflammatory basis. Possible diagnostic considerations include prostatitis, cystitis, or pericolonic inflammation without a discrete visualized inflamed diverticulum Vasculature: The abdominal aorta is normal in course and caliber. Adenopathy: None. Pelvic viscera: There is mild nonspecific infiltration of the pelvic fat as described above. Skeletal structures: No destructive osseous lesions are seen. IMPRESSION: 1. No evidence of bowel obstruction. No evidence of free air 2. Nonobstructing 4 mm right renal calculus 3. Mild nonspecific infiltration of the pelvic fat. Given history of pain and sepsis, diagnostic considerations include prostatitis, cystitis (although there is no significant bladder wall thickening), or an atypical presentation of diverticulitis (no definite inflamed diverticula are visualized). Clinical follow-up is advocated. Electronically signed by: Darell Nichols M.D. 05/04/2017 7:32 PM Dictated Date/Time: 05/04/2017 7:22 PM
[2017-05-04] MEDS ORDERED: SIMV80TA2 PO (19:35)
[2017-05-04] MEDS ORDERED: RANITIDINE HCL 150 MG TAB PO SCH (21:00)
[2017-05-04] MEDS: CARVEDILOL 12.5 MG TAB PO SCH (21:00)
[2017-05-04] MEDS ORDERED: ALUMINUM/MAGNESIUM/SIMETH (MAALOX MAX) 30 ML UDC PO SCH (21:00)
[2017-05-04] MEDS ORDERED: OXYC20TA50 PO (21:06)
[2017-05-04] MEDS: DOCUSATE SODIUM 100 MG CAP PO SCH (21:55)
[2017-05-04] MEDS: OXYCODONE HCL 10 MG TABCR (OXYCONTIN) PO SCH (21:56)
[2017-05-04] MEDS: SENNA 8.6 MG TAB PO SCH (21:57)
[2017-05-04] MEDS: SIMVASTATIN 40 MG TAB PO SCH (21:57)
[2017-05-04] MEDS: METOCLOPRAMIDE HCL 5 MG TAB PO SCH (21:58)
[2017-05-04] MEDS: RANITIDINE HCL 150 MG TAB PO SCH (21:59)
[2017-05-04] MEDS: ALBUTEROL HFA 8 GM INHALER INH SCH (21:59)
--- NOTE | 2017-05-04 22:09 | Critical Care Consultation ---
Critical Care Consultation Date of Consultation: May 04, 2017. Attending Physician: Dario Mon M.D. Reason for Consultation: 72-year-old male presenting with sepsis with borderline septic shock from GI versus source resulting in weakness and fall with concerns for ICH on plain CT. Requiring neuro checks and close cardiovascular/hemodynamic monitoring. History of Present Illness Patient is a 72-year-old male with a significant past medical history of coronary artery disease, CHF requiring AICD placement, hypertension, hyperlipidemia, COPD, pulmonary emboli, and anticoagulation for significant h/o VTE who initially presented to the emergency department after sustaining a fall earlier today. Patient reports last evening he developed multiple episodes of loose stools throughout the night. During his last bowel movement, he reports that he became very shaky and had pain in his lower back and LEFT lower quadrant. His gave him a massage and he felt like his temperature seemed to improve. His did take his temperature orally which was found to be 100.6 degrees Fahrenheit. His rigors improved, however he reports that he was unable sleep most the night secondary to frequency of urination with dysuria. He noted increasing weakness and balance issues throughout the night. His did want to bring him to the ER last night, but he reports that he did not wish to, that point. They went to the [facility] walk-in clinic earlier today and it was felt as though the patient had a UTI. He was provided a prescription for Cipro. While attempting to use the ILAN machine at the bank, he reports that he became lightheaded and fell to the ground striking the back of his head on the ground. He does not feel as though he loss consciousness. He was helped from the ground and eventually was transported to the ER via EMS. While in the emergency department, a CT of the head and neck were obtained. CT of the head was concerning for an area of high attenuation for concern for possible bleed. Neurosurgery was consult at [facility] and they felt as though the patient could be safely monitored in our facility secondary to patient's current stable condition. Dr. Robles was consult and suggested IV vitamin K 2mg for his INR of 1.9. He was found to have a moderate leukocytosis of greater than 26,000. H&H stable. Slight MERT with a BUN/ creatinine of 29 and 1.54, respectfully. Initial lactic acid was elevated at 3.2. Patient's blood pressures were relatively labile in the emergency department in the 90s. He was hydrated with 3 L of normal saline. Blood pressures persisted. Urinalysis concerning for hospital UTI. CT the abdomen and pelvis was obtained secondary to LEFT lower quadrant abdominal discomfort. There is concern for infiltrative change in the prostate versus diverticulum. He received initial dose of Levaquin intravenously. Blood cultures had been obtained as a urine culture was obtained as well. Patient was subsequently transferred to the ICU secondary to possibility for need for vasoactive support medications. Upon arrival to the ICU, the patient reports that he feels "much better" than his initial presentation. He reports feeling much less lightheaded. He does complain of pain to the back of his head as well as his "neuropathy pain" to his bilateral hands. He does describe some discomfort in the suprapubic and LEFT lower quadrant area. Patient currently denies any blurry vision, double vision, slurred speech, facial droop, unilateral weakness/numbness, chest pain, palpitations, short of breath, pleuritic pain, hemoptysis, vomiting, hematochezia, melena, hematuria, or dysuria. He does report that he had some loose stools this morning, but no diarrheal stools since. Patient lives at home with his . He denies any alcohol use, tobacco use, or illicit substance use. Past Medical/Surgical History Medical Problems: (1) Ac Myocard Infarct,Oth Inferior Wall,Init Epis Car (2) Acute Venous Embolism & Thrombosis Deep Vessels Distal Le (3) Balance problem (4) balance problem (5) Biliary dyskinesia (6) BPH (benign prostatic hypertrophy) (7) Bursitis of left elbow (8) Cellulitis of left arm (9) Congestive Heart Failure Nos (10) Coronary Atherosclerosis Of [place] Coronary Vessel (11) Depression (12) Diverticulosis Colon (W/O Ment Of Hemorrhage) (13) DVT (deep venous thrombosis) (14) Emphysema (15) Esophageal Reflux (16) Hypertension Nos (17) ICH (intracerebral hemorrhage) (18) Macular degeneration (19) Parox Ventric Tachycard (20) PE (pulmonary embolism) (21) Percutaneous Translum Coron Angioplasty Status (22) Peripheral neuropathy (23) Pure Hypercholesterolem (24) Right upper quadrant abdominal pain (25) Sleep apnea (26) Warfarin anticoagulation Surgical Problems: (1) AICD (automatic cardioverter/defibrillator) present Family History Patient reports no known family medical history. Noncontributory Social History Smoking Status: Former Smoker Smokeless Tobacco Use: No Alcohol Use: none Drug Use: none Marital Status: Housing Status: lives with family Occupation Status: retired Allergies Coded Allergies: BEE STING (Verified Allergy, Unknown, SWELLING, SOB, 10/01/16) Lidocaine (Verified Allergy, Unknown, RASH, 10/01/16) Penicillins (Verified Allergy, Unknown, SWELLING, DIFFICULTY BREATHING, 10/01/16) SWELLING Hydrocodone (Verified Adverse Reaction, Mild, nausea, 10/01/16) Oxycodone (Verified Adverse Reaction, Mild, nausea, 10/01/16) Home Medications Scheduled Albuterol Hfa (Ventolin Hfa), 2 PUFFS INH Q6H Aluminum/Magnesium/Simeth (Maalox Max Susp), 5 ML PO HS Artificial Tear Ointment (Refresh Lacri-Lube), 1 DROP OPB QAM Aspirin (Aspirin 81), 81 MG PO DAILY Bumetanide (Bumex), 1 MG PO QAM Bupropion HCl (Bupropion HCl), 100 MG BID Carvedilol (Coreg), 12.5 MG PO QPM Carvedilol (Coreg), 25 MG PO QAM Docusate Sodium (Docusate Sodium), 100 MG PO BID Emollient (Lubriderm), 1 APPLN TOP Q8 Epinephrine (Epinephrine), 0.3 MG INJ PRN UD Ferrous Sulfate (Ferrous Sulfate), 325 MG PO HS Finasteride (Proscar), 5 MG PO QAM Folic Acid (Folvite), 1 MG PO QAM Lisinopril (Zestril), 2.5 MG PO QAM Lisinopril (Lisinopril), 5 MG PO QPM Metoclopramide (Reglan), 5 MG PO Q8 Mometasone Furoate (Nasal) (Mometasone Furoate), 2 SPRAYS DEB DAILY Nystatin (Topical) (Nystatin), 1 APPLN TOP BID Oxycodone Hcl (Oxycontin), 0.5 TAB PO BID Pantoprazole (Protonix), 40 MG PO AM/NOON Potassium Ext Rel (Klor-Con), 20 MEQ PO BID Ranitidine (Zantac), 2 CAP PO HS Sennosides (Sennosides), 8.6 MG PO HS Simvastatin (Zocor), 40 MG PO QPM Tiotropium [place] (Spiriva Handihaler), 1 CAP INH DAILY Warfarin Sod (Coumadin), 5 MG PO 5XWK Warfarin Sod (Jantoven), 2.5 MG PO 2XWK Current Inpatient Medications Current Inpatient Medications Medications (Trade) Dose Ordered Sig/Charly Route Start Time Stop Time Status Last Admin Dose Admin Albuterol (Ventolin Hfa Inhaler) 2 puffs Q6H INH 05/04/17 22:00 06/03/17 21:59 05/04/17 21:59 2 PUFFS Artificial Tears (Lacri-Lube Oph Oint) 1 appln QAM OPB 05/05/17 09:00 06/04/17 08:59 Bupropion HCl (Wellbutrin Tab) 100 mg BID17 PO 05/04/17 21:00 06/03/17 20:59 05/04/17 21:58 100 MG Carvedilol (Coreg Tab) 12.5 mg QPM PO 05/04/17 21:00 06/03/17 20:59 Carvedilol (Coreg Tab) 25 mg QAM PO 05/05/17 09:00 06/04/17 08:59 Finasteride (Proscar Tab) 5 mg QAM PO 05/05/17 09:00 06/04/17 08:59 Folic Acid (Folvite Tab) 1 mg QAM PO 05/05/17 09:00 06/04/17 08:59 Metoclopramide HCl (Reglan Tab) 5 mg Q8 PO 05/04/17 22:00 06/03/17 21:59 05/04/17 21:58 5 MG Pantoprazole Sodium (Protonix Tab) 40 mg DAILY PO 05/05/17 09:00 06/04/17 08:59 Senna (Senokot Tab) 8.6 mg HS PO 05/04/17 21:00 06/03/17 20:59 05/04/17 21:57 8.6 MG Simvastatin (Zocor Tab) 40 mg QPM PO 05/04/17 21:00 06/03/17 20:59 05/04/17 21:57 40 MG Tiotropium [place] (Spiriva Handihaler Inhaler) 1 puff DAILY INH 05/05/17 09:00 06/04/17 08:59 Docusate Sodium (coLACE CAP) 100 mg BID PO 05/04/17 21:00 06/03/17 20:59 05/04/17 21:55 100 MG Oxycodone HCl (Oxycontin Tab) 10 mg Q12 PO 05/04/17 21:00 06/03/17 20:59 05/04/17 21:56 10 MG Acetaminophen (Tylenol Tab) 650 mg Q4H PRN PO 05/04/17 19:30 06/03/17 19:29 Lorazepam (Ativan Tab) 0.5 mg Q4H PRN PO 05/04/17 19:30 06/03/17 19:29 Al Hydrox/Mg Hydrox/Simethicone (Maalox Max Susp) 15 ml Q4H PRN PO 05/04/17 19:30 06/03/17 19:29 Magnesium Hydroxide (Milk Of Magnesia Susp) 30 ml Q12H PRN PO 05/04/17 19:30 06/03/17 19:29 Ondansetron HCl (Zofran Inj) 4 mg Q6H PRN IV 05/04/17 19:30 06/03/17 19:29 Ranitidine HCl (zANTac TAB) 150 mg BID PO 05/04/17 21:00 06/03/17 20:59 05/04/17 21:59 150 MG Morphine Sulfate (MoRPHine SULFATE INJ) 4 mg Q2H PRN IV 05/04/17 19:30 05/18/17 19:29 Miscellaneous Information (Icu Protocol For Hyperglycemia) 1 ea PRN PRN N/A 05/04/17 19:30 05/06/17 19:29 Aztreonam 2000 mg/ Dextrose 110 ml @ 100 mls/hr Q8H IV 05/04/17 21:45 05/14/17 21:44 UNV Sodium Chloride 1,000 ml @ 75 mls/hr [id number] IV 05/04/17 21:45 06/03/17 21:44 UNV Miscellaneous Information (Icu Protocol For Hyperglycemia) 1 ea PRN PRN N/A 05/04/17 21:45 05/06/17 21:44 UNV Review of Systems A complete 10-point Review of Systems was discussed with the patient, with pertinent positives and negatives listed in the History of Present Illness. All remaining Review of Systems questions can be considered negative unless otherwise specified. Physical Exam Date Time Temp Pulse Resp B/P (MAP) Pulse Ox O2 Delivery O2 Flow Rate FiO2 05/04/17 21:13 36.4 77 18 90/59 95 Room Air 05/04/17 20:00 77 18 92/53 95 Room Air 05/04/17 19:24 76 05/04/17 18:30 75 18 97/56 96 Room Air 05/04/17 18:15 76 18 99/58 97 Room Air 05/04/17 17:50 77 18 101/56 95 Room Air 05/04/17 17:22 36.6 80 20 98/63 92 Room Air 05/04/17 17:03 78 16 100/55 94 Room Air 05/04/17 16:30 78 18 109/65 94 Room Air 05/04/17 15:16 87 05/04/17 14:28 37.0 89 18 118/67 93 Room Air VITAL SIGNS - Vital signs and nursing notes were reviewed. GENERAL - 72-year-old male appearing his stated age who is in no acute distress. Communicates well with provider and answers questions appropriately. HEAD - Normocephalic. No Zamora's Sign or Raccoon's Eyes. No depressed skull fractures palpable. EYES - PERRL with EOMI bilaterally. Sclera anicteric. Palpebral conjunctiva pink and moist with no injection noted. EARS - No deformities of external structures noted on gross examination bilaterally. No pain elicited with palpation of the tragus bilaterally. External auditory canals without discharge or otorrhea. Tympanic membranes pearly martin without retraction or bulging. NOSE - Midline and without cyanosis. No epistaxis or purulent drainage noted. Septum midline without deviation or septal hematoma noted. MOUTH/OROPHARYNX - Without perioral cyanosis. Buccal mucosa pink and moist and without leukoplakia. Tongue midline with equal elevation of palate bilaterally. No tonsillar hypertrophy, erythema, or exudates noted. NECK - Neck with FROM. Supple to palpation. No lymphadenopathy noted. No nuchal rigidity. LUNGS - Chest wall symmetric without accessory muscle use, intercostals retractions, or central cyanosis. Normal vesicular breath sounds CTA B/L. No wheezes, rales, or rhonchi appreciated. CARDIAC - RRR with S1/S2. No murmur, rubs, or gallops appreciated. ABDOMEN - Abdominal contour obese and without pulsations or visible masses. BS normoactive all four quadrants. No tenderness, palpable masses, hepatosplenomegaly, or ascites noted. EXTREMITIES - No pretibial edema present. +3/5 radial and dorsalis pedis pulses palpated throughout. FROM with no tremors or clonus noted on PROM throughout. +5 /5 strength noted in UE/LE bilaterally. NEUROLOGIC - Cranial nerves II through XII grossly intact. Sensory intact to light touch throughout. Patient able to perform rapid alternating movements appropriately. Negative Pronator Drift. PSYCH - A&Ox3 and cooperates fully with examiner. Pt is very pleasant and interacts well with examiner. Laboratory Results Last 24 Hours Test 05/04/17 15:16 05/04/17 15:25 05/04/17 16:07 05/04/17 17:16 White Blood Count 26.10 K/uL Red Blood Count 4.50 M/uL Hemoglobin 13.9 g/dL Hematocrit 40.3 % Mean Corpuscular Volume 89.6 fL Mean Corpuscular Hemoglobin 30.9 pg Mean Corpuscular Hemoglobin Concent 34.5 g/dl Platelet Count 198 K/uL Mean Platelet Volume 10.6 fL Neutrophils (%) (Auto) 86.7 % Lymphocytes (%) (Auto) 5.3 % Monocytes (%) (Auto) 7.0 % Eosinophils (%) (Auto) 0.0 % Basophils (%) (Auto) 0.1 % Neutrophils # (Auto) 22.61 K/uL Lymphocytes # (Auto) 1.38 K/uL Monocytes # (Auto) 1.84 K/uL Eosinophils # (Auto) 0.01 K/uL Basophils # (Auto) 0.03 K/uL RDW Standard Deviation 45.6 fL RDW Coefficient of Variation 14.0 % Immature Granulocyte % (Auto) 0.9 % Immature Granulocyte # (Auto) 0.23 K/uL Sodium Level 133 mmol/L Potassium Level 4.6 mmol/L Chloride Level 99 mmol/L Carbon Dioxide Level 22 mmol/L Anion Gap 11.0 mmol/L Blood Urea Nitrogen 29 mg/dl Creatinine 1.54 mg/dl Est Creatinine Clear Calc Drug Dose 50.1 ml/min Estimated GFR () 51.5 Estimated GFR (Non- 44.4 BUN/Creatinine Ratio 19.0 Random Glucose 150 mg/dl Calcium Level 9.0 mg/dl Magnesium Level 1.9 mg/dl Total Bilirubin 1.1 mg/dl Aspartate Amino Transf (AST/SGOT) 18 U/L Alanine Aminotransferase (ALT/SGPT) 26 U/L Alkaline Phosphatase 48 U/L Troponin I < 0.015 ng/ml Total Protein 7.6 gm/dl Albumin 3.4 gm/dl Globulin 4.2 gm/dl Albumin/Globulin Ratio 0.8 Lactic Acid Level 3.2 mmol/L Prothrombin Time 19.8 SECONDS Prothromb Time International Ratio 1.9 Activated Partial Thromboplast Time 36.4 SECONDS Partial Thromboplastin Ratio 1.4 Urine Color DK YELLOW Urine Appearance CLEAR Urine pH 5.0 Urine Specific [place] 1.022 Urine Protein 1+ Urine Glucose (UA) NEG Urine Ketones NEG Urine Occult Blood 1+ Urine Nitrite NEG Urine Bilirubin NEG Urine Urobilinogen NEG Urine Leukocyte Esterase TRACE Urine WBC (Auto) 5-10 /hpf Urine RBC (Auto) 5-10 /hpf Urine Hyaline Casts (Auto) 1-5 /lpf Urine Epithelial Cells (Auto) 5-10 /lpf Urine Bacteria (Auto) NEG Test 05/04/17 20:08 05/04/17 21:06 05/04/17 21:33 05/04/17 21:36 Lactic Acid Level 1.8 mmol/L Test 05/04/17 21:45 Diagnostic Results Radiological imaging and reports were reviewed by myself. Radiologist's Interpretation as follows: CT HEAD WITHOUT CONTRAST (CT) CLINICAL HISTORY: Posterior head trauma. Patient on warfarin. Pain. COMPARISON STUDY: 09/29/2016 TECHNIQUE: Axial CT of the brain is performed from the vertex to the skull base. IV contrast was not administered for this examination. A dose lowering technique was utilized adhering to the principles of ALARA. CT DOSE: 776.86 mGycm FINDINGS: No intra or extra-axial mass lesions are visualized. There is a focus of very subtle increased attenuation within the right parietal lobe as visualized in image #22/32. Given history of trauma, this could indicate trace hemorrhage. A follow-up MRI, or 6 hour follow-up CT scan is recommended. There is no midline shift. There is no intraventricular hemorrhage. There is no CT evidence of acute cortical infarction. There are patchy white matter hypodensities likely on a small vessel basis. There is no evidence of pathologic ventricular dilatation. There is no evidence of acute sinusitis. There is a posterior scalp contusion. IMPRESSION: 1. Focus of very subtle increased attenuation within the right parietal lobe as visualized in image #22/32. A focus of trace hemorrhage cannot be excluded. A follow-up MRI, 6 hour follow-up CT scan is recommended. CHEST ONE VIEW PORTABLE CLINICAL HISTORY: sob, r/o infection COMPARISON STUDY: 02/15/2017 FINDINGS: The heart is enlarged. There is a left subclavian pacer/defibrillator present. There is no acute parenchymal consolidation. There is a retrocardiac opacity consistent with a hiatal hernia. There is mild central vascular prominence without evidence of overt failure.[ There is stable atelectasis/scarring at the left lung base. IMPRESSION: 1. Stable cardiomegaly 2. Hiatal hernia 3. No evidence of focal pulmonary consolidation CERVICAL SPINE W/O CT DOSE: 508.86 mGycm HISTORY: Trauma fall, c-spine tenderness. r/o fracture TECHNIQUE: Multiaxial CT images of the cervical spine were performed and reformatted in the sagittal and coronal plane without the use of contrast. A dose lowering technique was utilized adhering to the principles of ALARA. COMPARISON: 09/01/2016 FINDINGS: No fractures. No subluxation. Prevertebral soft tissues and the C1-C2 interval are intact. No pneumothorax. Generalized degenerative change. Minimal apical fibrosis. IMPRESSION: No fractures within the cervical spine. Generalized degenerative change. The above report was generated using voice recognition software. It may contain grammatical, syntax or spelling errors. CT SCAN OF THE ABDOMEN AND PELVIS WITHOUT CONTRAST CLINICAL HISTORY: Abdominal pain. Sepsis. Possible diverticulitis. COMPARISON STUDY: 02/18/2016 TECHNIQUE: CT scan of the abdomen and pelvis was performed from the lung bases to the proximal femurs. Images are reviewed in the axial, sagittal, and coronal planes. IV contrast was not administered for this examination. A dose lowering technique was utilized adhering to the principles of ALARA. CT DOSE: 744.24 mGy.cm FINDINGS: Lower chest: There is an implantable defibrillator present. As a hiatal hernia. There are bibasal atelectatic changes. There is subpleural right lower lobe lung cysts. Liver: The unenhanced liver is normal in size, contour, and attenuation. There is no intrahepatic biliary ductal dilatation. Gallbladder: Surgically absent Spleen: Normal in size and attenuation. Pancreas: Unremarkable. Adrenal glands: Unremarkable. Kidneys: There is 24 mm left renal cyst. There is lower pole left renal cortical scarring. There is a 4 mm lower pole right renal calculus. There is no hydronephrosis. No ureteral calculi are visualized. Bowel: There are no transition zones to indicate bowel obstruction. There is colonic diverticulosis. No acute peridiverticular inflammatory changes are visualized. The appendix appears normal. Peritoneum: No free air is visualized. There is no ascites. There is a recurrent fat-containing right inguinal hernia status post prior hernia repair. There is unexplained infiltration of the fat adjacent to the bladder, rectum and prostate. Given history of pain and sepsis, this may be on an inflammatory basis. Possible diagnostic considerations include prostatitis, cystitis, or pericolonic inflammation without a discrete visualized inflamed diverticulum Vasculature: The abdominal aorta is normal in course and caliber. Adenopathy: None. Pelvic viscera: There is mild nonspecific infiltration of the pelvic fat as described above. Skeletal structures: No destructive osseous lesions are seen. IMPRESSION: 1. No evidence of bowel obstruction. No evidence of free air 2. Nonobstructing 4 mm right renal calculus 3. Mild nonspecific infiltration of the pelvic fat. Given history of pain and sepsis, diagnostic considerations include prostatitis, cystitis (although there is no significant bladder wall thickening), or an atypical presentation of diverticulitis (no definite inflamed diverticula are visualized). Clinical follow-up is advocated. Assessment & Plan (1) Sepsis due to urinary tract infection (2) Prostatitis (3) Gastrointestinal infection (4) Sepsis (5) Fall (6) Coagulopathy (7) ICH (intracerebral hemorrhage) (8) balance problem Reason Critically Ill: 72-year-old male presenting with sepsis with borderline septic shock from GI versus source resulting in weakness and fall with concerns for ICH on plain CT. Requiring neuro checks and close cardiovascular/ hemodynamic monitoring. Neuro - * CAM ICU: NEGATIVE * Possible Traumatic ICH on non-contrast CT 2/2 Fall - Anticoagulated on Coumadin w/ INR of 1.9: * No acute neurological exam findings. * Monitor closely w/ serial imaging per Neurosurgery at [facility]. * Order Repeat CT Head at 0000. * Neuro checks. * Consider transfer to Tertiary Care in the event of any changes. * Neuropathy: * Continue home Rx. Cardiac - * h/o CAD, CHF, AICD placement, HTN, HLD: * Continue home Rx as tolerated by parameters. * Monitor closely for volume overload in the setting of sepsis/hypovolemia. * Ventricularly paced at 85bpm on EKG. * Monitor on telemetry. * EKGs for CP Respiratory - * h/o COPD, PEs: * NC PRN * Home treatments. * Nighttime CPAP - [id number] * Monitor closely for volume overload. * Will hold Coumadin at this point in setting of ??ICH. See below. GI - * GERD/Hiatal Hernia w/ h/o Fundoplication: * Prophylaxis w/ Protonix. * Diet: AHA RENAL/LYTES - * MERT w/ BUN/Cr of 24/05.54: * Clinically dehydrated. * Received 3L IVF in ED. * Will continue to hydrate w/ NSS@75mL/hr. * Will add fluid boluses PRN for hypotension. * Will monitor electrolytes, replace appropriately. - * Sepsis 2/2 urinary tract infection: * No prior cultures available. * Will continue Levaquin. * Awaiting cultures. * ??Prostatitis on CT: * Certainly could present with similar urinary symptoms as well. * Will add PSA to AM labs. * May consider long-term Levaquin dosing (suggested 28 days in the outpatient). * QTc related prolongation should be a non-issue 2/2 AICD placement. * Would avoid [place] Catheter at this point 2/2 c/o Prostatitis. ENDO - * No h/o DM or Thyroid Disease. * BSGs w/ ISS/gtt per protocol. HEME - * Moderate Leukocytosis in the setting of sepsis. * Will trend. * Stable H&H * INR of 1.9 w/ c/o ICH on CT of head: * Provided 2mg IV Vitamin K in ED. * Will consider further correcting with FFP if ICH found to worsen on repeat CT. * Will continue to reassess INR. * Will reassess need for bridging back to Coumadin in the event of repeat negative head CTs as patient does have significant VTE Hx. ID - * Sepsis w/ borderline septic shock s/s UTI versus Prostatitis versus early Diverticulitis: * Provided Levaquin in ED - will continue pending urine cultures. * Will add PSA to AM labs to help further differentiate. * If Prostate source - residential outpatient treatment. * ??Infiltrative changes on CT - ??Bowel pathology (??diverticulitis): * Will add Aztreonam - Significant Penicillin allergy. * Will add C.diff/Stool Cultures. LINES/IV ACCESS - * PIVs intact. * Will consider CVL if need for vasoactive medications. DVT PROPHYLAXIS - * Will hold at this time 2/[address] Head. * Will reassess need for reinstitution of chemoprophylaxis pending CT/INR values. * SCDs I have personally spent 45 minutes of critical care time in the direct management of this patient. This is a life/limb threatening event. This includes time spent evaluating patient, direct bedside care, chart review, placing orders, interpretation of diagnostic studies, discussion with consultants, patient, and family members, as well as other required patient management activities. This time is exclusive of all separately billable procedures, and teaching time and separate from and in addition to any other critical care service time. Thank you for this consultation allow us to be part of this patient's care. Please refer to my attending physician's documentation for any further recommendations. Physician Supervision Note: I discussed the case with Adan Lance PA-C and agree with the findings and plan as documented in the note. I performed a separate examination and interview 72 year old male on full anticoagulation for recurrent DVT/PE, CAD, CHF, ROSE, diverticulosis presents with severe sepsis and small traumatic ICH Plan: Continue broad spectrum Abx. F/u cultures. UA and history points towards urinary source. No evidence of obstruction on CT Hold anticoagulation, INR 1.7 today. Patient is neurologically intact. repeat CT brain Documented By: Greg Otero MD Problem Qualifiers (1) Prostatitis: Prostatitis type: acute Qualified Codes: N41.0 - Acute prostatitis (2) Sepsis: Sepsis type: sepsis due to unspecified organism Qualified Codes: A41.9 - Sepsis, unspecified organism (3) Fall: Encounter type: initial encounter Qualified Codes: W19.XXXA - Unspecified fall, initial encounter (4) ICH (intracerebral hemorrhage): Intracerebral hemorrhage etiology: traumatic
[2017-05-04] MEDS: SODIUM CHLORIDE 0.9% 1000ML 1,000 ML IV SCH (22:26)
[2017-05-04] MEDS: AZTREONAM IV 2,000 MG in DEXTROSE 5% 100ML 100 ML IV SCH (22:26)
[2017-05-04 22:39] LABS: INFLUENZA A PCR Neg for Influ A (NEG); INFLUENZA B PCR Neg for Influ B (NEG)
[2017-05-05] VITALS (37 sets, daily range): BP systolic 74–139; BP diastolic 41–84; PULSE 67–115; TEMP 36.7–37; O2SAT 89–97
[2017-05-05] MEDS ORDERED: SODIUM CHLORIDE 0.9% 250ML 250 ML IV SCH ×2 (01:30→03:45)
[2017-05-05] MEDS: ALBUTEROL HFA 8 GM INHALER INH SCH ×4 (03:46→20:49)
[2017-05-05 05:29] LABS: INR 1.7 (0.9-1.1)
[2017-05-05 05:49] LABS: ALBUMIN 2.4 gm/dl (3.4-5.0); CALCIUM 7.6 mg/dl (8.5-10.1); CREATININE 0.91 mg/dl (0.60-1.40); POTASSIUM 3.7 mmol/L (3.5-5.1)
[2017-05-05] MEDS: METOCLOPRAMIDE HCL 5 MG TAB PO SCH ×3 (05:52→20:49)
[2017-05-05 06:00] LABS: TOTAL PROTEIN 5.6 gm/dl (6.4-8.2)
[2017-05-05 06:03] LABS: BASO % 0.1 %; BASO ABS # 0.01 K/uL (0-0.2); EOS % 0.6 %; HEMOGLOBIN 10.5 g/dL (14.0-18.0); IG# 0.08 K/uL (0.00-0.02); LYMPH % 7.8 %; LYMPH ABS # 1.23 K/uL (1.2-3.4); MEAN CELL VOLUME 89.6 fL (80-100); MEAN CORPUSCULAR HEMOGLOBIN 30.3 pg (25-34); MEAN CORPUSCULAR HGB CONC 33.9 g/dl (32-36); MEAN PLATELET VOLUME 10.1 fL (7.4-10.4); MONO % 5.1 %; NEUT % 85.9 %; NEUT ABS # 13.46 K/uL (1.4-6.5); PLATELET COUNT 155 K/uL (130-400); RED CELL DISTRIBUTION WIDTH SD 46.1 fL (36.4-46.3); WHITE BLOOD COUNT 15.68 K/uL (4.8-10.8)
[2017-05-05] MEDS: AZTREONAM IV 2,000 MG in DEXTROSE 5% 100ML 100 ML IV SCH ×3 (06:22→20:51)
--- NOTE | 2017-05-05 06:39 | DIAGNOSTIC IMAGING REPORT ---
HEAD WITHOUT CONTRAST (CT) CT DOSE: 634.23 mGy.cm HISTORY: Intracranial hemorrhage f/u for ?ICH TECHNIQUE: Multiaxial CT images of the head were performed without the use of intravenous contrast. A dose lowering technique was utilized adhering to the principles of ALARA. Comparison: Same day 3:42 PM Findings: The paranasal sinuses and mastoid air cells are clear. No change as compared to the prior study. Subtle low-density focus of increased attenuation right parietal lobe. This is unchanged in the prior study. As well as a small low density hemorrhage is not excluded. All remaining components of the brain are unremarkable. The ventricular system is midline. Impression: No change from the prior exam. Unchanged subtle increase in density right parietal lobe transaxial image 19 . Differential possibilities are unchanged from the prior exam. The above report was generated using voice recognition software. It may contain grammatical, syntax or spelling errors. Electronically signed by: Junior Rosas M.D. 05/05/2017 6:38 AM Dictated Date/Time: 05/05/2017 6:35 AM
--- NOTE | 2017-05-05 08:01 | DIAGNOSTIC IMAGING REPORT ---
SINGLE VIEW CHEST CLINICAL HISTORY: Dyspnea. FINDINGS: An AP, portable, upright chest radiograph is compared to study dated 05/04/2017. The examination is degraded by portable technique, apical lordotic positioning, and patient rotation. A cardiac AICD largely obscures the left upper chest. This is unchanged in position. The heart is enlarged and there is atherosclerotic calcification of the thoracic aorta. The pulmonary vasculature is noncongested. There is bibasilar atelectasis. No airspace consolidation is seen typical for pneumonia and there is no large pleural effusion. No pneumothorax is seen. The skeletal structures are osteopenic. The bony thorax is grossly intact. IMPRESSION: 1. Cardiomegaly and AICD. There is no radiographic evidence of congestive failure. 2. No airspace consolidation or large pleural effusion is identified. Electronically signed by: Ankush Byrnes M.D. 05/05/2017 8:00 AM Dictated Date/Time: 05/05/2017 7:59 AM
[2017-05-05] MEDS: TIOTROPIUM BROMIDE 5 PUFF/90 MCG INH INH SCH (08:35)
[2017-05-05] MEDS: ARTIFICIAL TEARS OP OINT 3.5 GM TUBE OPB SCH (08:36)
[2017-05-05] MEDS: OXYCODONE HCL 10 MG TABCR (OXYCONTIN) PO SCH ×2 (08:37→20:51)
[2017-05-05] MEDS: FINASTERIDE 5 MG TAB PO SCH (08:37)
[2017-05-05] MEDS: DOCUSATE SODIUM 100 MG CAP PO SCH ×2 (08:37→20:48)
[2017-05-05] MEDS: RANITIDINE HCL 150 MG TAB PO SCH ×2 (08:38→20:48)
[2017-05-05] MEDS: PANTOprazole SOD 40 MG TAB PO SCH (08:38)
[2017-05-05] MEDS: CARVEDILOL 25 MG TAB PO SCH (08:39)
[2017-05-05] MEDS: SODIUM CHLORIDE 0.9% 1000ML 1,000 ML IV SCH (11:05)
--- NOTE | 2017-05-05 15:49 | Critical Care Progress Note ---
Critical Care Progress Note Date of Service May 05, 2017. Attending Dr. Otero Subjective No new issues. 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 Repeat CT again today Continue broad spectrum Abx. F/u cultures. UA and history points towards urinary source. No evidence of obstruction on CT Hold anticoagulation, INR came down to 1.7. Not to resume the anticoagulation for now, would wait 2 weeks and reassess as outpatient. If the repeat CT is stable, may be transferred out of the ICU DVT prophylaxis: SCDs Critical care time spent with the patient, , reviewing the chart, greater than 25 minutes Data Medications: Current Inpatient Medications Medications (Trade) Dose Ordered Sig/Charly Route Start Time Stop Time Status Last Admin Dose Admin Albuterol (Ventolin Hfa Inhaler) 2 puffs Q6H INH 05/04/17 22:00 06/03/17 21:59 05/05/17 10:05 2 PUFFS Artificial Tears (Lacri-Lube Oph Oint) 1 appln QAM OPB 05/05/17 09:00 06/04/17 08:59 05/05/17 08:36 1 APPLN Bupropion HCl (Wellbutrin Tab) 100 mg BID17 PO 05/04/17 21:00 06/03/17 20:59 05/05/17 08:37 100 MG Carvedilol (Coreg Tab) 12.5 mg QPM PO 05/04/17 21:00 06/03/17 20:59 Carvedilol (Coreg Tab) 25 mg QAM PO 05/05/17 09:00 06/04/17 08:59 05/05/17 08:39 25 MG Finasteride (Proscar Tab) 5 mg QAM PO 05/05/17 09:00 06/04/17 08:59 05/05/17 08:37 5 MG Folic Acid (Folvite Tab) 1 mg QAM PO 05/05/17 09:00 06/04/17 08:59 05/05/17 08:37 1 MG Metoclopramide HCl (Reglan Tab) 5 mg Q8 PO 05/04/17 22:00 06/03/17 21:59 05/05/17 13:49 5 MG Pantoprazole Sodium (Protonix Tab) 40 mg DAILY PO 05/05/17 09:00 06/04/17 08:59 05/05/17 08:38 40 MG Senna (Senokot Tab) 8.6 mg HS PO 05/04/17 21:00 06/03/17 20:59 05/04/17 21:57 8.6 MG Simvastatin (Zocor Tab) 40 mg QPM PO 05/04/17 21:00 06/03/17 20:59 05/04/17 21:57 40 MG Tiotropium [place] (Spiriva Handihaler Inhaler) 1 puff DAILY INH 05/05/17 09:00 06/04/17 08:59 05/05/17 08:35 1 PUFF Docusate Sodium (coLACE CAP) 100 mg BID PO 05/04/17 21:00 06/03/17 20:59 05/05/17 08:37 100 MG Oxycodone HCl (Oxycontin Tab) 10 mg Q12 PO 05/04/17 21:00 06/03/17 20:59 05/05/17 08:37 10 MG Acetaminophen (Tylenol Tab) 650 mg Q4H PRN PO 05/04/17 19:30 06/03/17 19:29 Lorazepam (Ativan Tab) 0.5 mg Q4H PRN PO 05/04/17 19:30 06/03/17 19:29 Al Hydrox/Mg Hydrox/Simethicone (Maalox Max Susp) 15 ml Q4H PRN PO 05/04/17 19:30 06/03/17 19:29 Magnesium Hydroxide (Milk Of Magnesia Susp) 30 ml Q12H PRN PO 05/04/17 19:30 06/03/17 19:29 Ondansetron HCl (Zofran Inj) 4 mg Q6H PRN IV 05/04/17 19:30 06/03/17 19:29 Ranitidine HCl (zANTac TAB) 150 mg BID PO 05/04/17 21:00 06/03/17 20:59 05/05/17 08:38 150 MG Morphine Sulfate (MoRPHine SULFATE INJ) 4 mg Q2H PRN IV 05/04/17 19:30 05/18/17 19:29 Miscellaneous Information (Icu Protocol For Hyperglycemia) 1 ea PRN PRN N/A 05/04/17 19:30 05/06/17 19:29 Aztreonam 2000 mg/ Dextrose 110 ml @ 100 mls/hr Q8H IV 05/04/17 22:00 05/14/17 21:59 05/05/17 13:49 100 MLS/HR Sodium Chloride 1,000 ml @ 75 mls/hr [id number] IV 05/04/17 21:45 06/03/17 21:44 05/05/17 11:05 75 MLS/HR Miscellaneous Information ([facility] Protocol For Hyperglycemia) 1 ea PRN PRN N/A 05/04/17 21:45 05/06/17 21:44 I & O: 24-Hour Column 05/06/17 07:59 Intake Total 1350 ml Output Total 300 ml Balance 1050 ml Vital Signs: Date Time Temp Pulse Resp B/P (MAP) Pulse Ox O2 Delivery O2 Flow Rate FiO2 05/05/17 14:01 36.7 73 18 118/59 (78) 95 Nasal Cannula 2.0 05/05/17 13:28 36.7 82 18 119/69 (86) 93 Nasal Cannula 2.0 05/05/17 13:00 82 26 119/69 (87) 93 05/05/17 12:00 76 28 117/80 (89) 05/05/17 11:47 76 22 126/83 (94) 92 05/05/17 11:20 36.7 77 18 125/74 (91) 94 Nasal Cannula 2.0 05/05/17 11:20 Nasal Cannula 2.0 05/05/17 11:00 78 26 125/74 (88) 91 05/05/17 10:59 78 22 116/73 (80) 90 05/05/17 10:00 87 28 126/82 (100) 92 05/05/17 09:20 36.7 77 18 114/77 (89) 94 Nasal Cannula 2.0 05/05/17 09:13 75 22 114/77 (88) 95 05/05/17 09:01 85 18 114/77 (88) 93 05/05/17 09:00 79 19 95 05/05/17 08:35 75 20 118/78 (87) 95 05/05/17 08:01 77 26 117/74 (89) 92 05/05/17 08:00 Nasal Cannula 05/05/17 08:00 70 22 93 05/05/17 07:30 36.7 72 17 110/58 (75) 93 Nasal Cannula 2.0 05/05/17 07:30 Nasal Cannula 2.0 05/05/17 07:01 75 16 110/58 (73) 89 05/05/17 07:00 71 13 93 05/05/17 05:31 74 17 99/57 (71) 94 Nasal Cannula 2.0 05/05/17 05:01 76 26 101/59 (73) 89 Nasal Cannula 2.0 05/05/17 04:01 73 6 92/51 (65) 97 05/05/17 04:00 92 Nasal Cannula 2.0 05/05/17 03:42 76 26 86/43 (57) 92 05/05/17 03:41 75 24 74/41 (52) 94 05/05/17 03:01 71 24 98/55 (69) 93 05/05/17 02:31 74 23 105/62 (76) 96 05/05/17 02:01 68 16 87/49 (62) 05/05/17 01:31 67 23 101/54 (70) 94 05/05/17 01:01 67 12 82/50 (61) 96 Nasal Cannula 2.0 05/05/17 00:34 71 15 93/49 (64) 93 05/05/17 00:04 74 27 99/57 (71) 93 05/04/17 23:59 92 Nasal Cannula 2.0 05/04/17 23:01 36.7 76 19 104/60 (75) 92 05/04/17 22:33 67 96 21 05/04/17 22:01 70 23 90/56 (67) 87 05/04/17 21:52 75 22 93/53 (66) 95 05/04/17 21:31 86 22 117/66 (83) 85 05/04/17 21:13 36.4 77 18 90/59 95 Room Air 05/04/17 21:06 74 19 90/59 (69) 94 05/04/17 20:00 77 18 92/53 95 Room Air 05/04/17 19:24 76 05/04/17 18:30 75 18 97/56 96 Room Air 05/04/17 18:15 76 18 99/58 97 Room Air 05/04/17 17:50 77 18 101/56 95 Room Air 05/04/17 17:22 36.6 80 20 98/63 92 Room Air 05/04/17 17:03 78 16 100/55 94 Room Air 05/04/17 16:30 78 18 109/65 94 Room Air Laboratory Results: Last 24 Hours Test 05/04/17 16:07 05/04/17 17:16 05/04/17 20:08 05/04/17 21:33 Prothrombin Time 19.8 SECONDS Prothromb Time International Ratio 1.9 Activated Partial Thromboplast Time 36.4 SECONDS Partial Thromboplastin Ratio 1.4 Urine Color DK YELLOW Urine Appearance CLEAR Urine pH 5.0 Urine Specific [place] 1.022 Urine Protein 1+ Urine Glucose (UA) NEG Urine Ketones NEG Urine Occult Blood 1+ Urine Nitrite NEG Urine Bilirubin NEG Urine Urobilinogen NEG Urine Leukocyte Esterase TRACE Urine WBC (Auto) 5-10 /hpf Urine RBC (Auto) 5-10 /hpf Urine Hyaline Casts (Auto) 1-5 /lpf Urine Epithelial Cells (Auto) 5-10 /lpf Urine Bacteria (Auto) NEG Lactic Acid Level 1.8 mmol/L Hepatitis C Antibody Screen NEG Test 05/04/17 21:40 05/04/17 21:45 05/04/17 22:35 05/04/17 22:41 Bedside Glucose 128 mg/dl Influenza Type A (RT-PCR) Neg for Influ A Influenza Type B (RT-PCR) Neg for Influ B Phosphorus Level 2.5 mg/dl Lactic Acid Level 1.4 mmol/L Random Cortisol 15.33 mcg/dl Test 05/05/17 04:59 05/05/17 11:00 White Blood Count 15.68 K/uL Red Blood Count 3.46 M/uL Hemoglobin 10.5 g/dL Hematocrit 31.0 % Mean Corpuscular Volume 89.6 fL Mean Corpuscular Hemoglobin 30.3 pg Mean Corpuscular Hemoglobin Concent 33.9 g/dl Platelet Count 155 K/uL Mean Platelet Volume 10.1 fL Neutrophils (%) (Auto) 85.9 % Lymphocytes (%) (Auto) 7.8 % Monocytes (%) (Auto) 5.1 % Eosinophils (%) (Auto) 0.6 % Basophils (%) (Auto) 0.1 % Neutrophils # (Auto) 13.46 K/uL Lymphocytes # (Auto) 1.23 K/uL Monocytes # (Auto) 0.80 K/uL Eosinophils # (Auto) 0.10 K/uL Basophils # (Auto) 0.01 K/uL RDW Standard Deviation 46.1 fL RDW Coefficient of Variation 14.0 % Immature Granulocyte % (Auto) 0.5 % Immature Granulocyte # (Auto) 0.08 K/uL Prothrombin Time 17.2 SECONDS Prothromb Time International Ratio 1.7 Sodium Level 137 mmol/L Potassium Level 3.7 mmol/L Chloride Level 107 mmol/L Carbon Dioxide Level 25 mmol/L Anion Gap 5.0 mmol/L Blood Urea Nitrogen 24 mg/dl Creatinine 0.91 mg/dl Est Creatinine Clear Calc Drug Dose 84.2 ml/min Estimated GFR () 97.2 Estimated GFR (Non- 83.9 BUN/Creatinine Ratio 26.2 Random Glucose 113 mg/dl Lactic Acid Level 1.1 mmol/L Calcium Level 7.6 mg/dl Magnesium Level 1.8 mg/dl Total Bilirubin 1.0 mg/dl Direct Bilirubin 0.3 mg/dl Aspartate Amino Transf (AST/SGOT) 12 U/L Alanine Aminotransferase (ALT/SGPT) 18 U/L Alkaline Phosphatase 36 U/L Total Protein 5.6 gm/dl Albumin 2.4 gm/dl Prostate Specific Antigen 6.200 ng/ml Procalcitonin 10.44 ng/ml Bedside Glucose 133 mg/dl
--- NOTE | 2017-05-05 16:31 | DIAGNOSTIC IMAGING REPORT ---
CT HEAD WITHOUT CONTRAST (CT) CLINICAL HISTORY: Intracranial hemorrhage COMPARISON STUDY: 05/04/2017 TECHNIQUE: Axial CT of the brain is performed from the vertex to the skull base. IV contrast was not administered for this examination. A dose lowering technique was utilized adhering to the principles of ALARA. CT DOSE: 638.56 mGycm FINDINGS: The previously identified focus of increased attenuation within the right parietal lobe is slightly less pronounced than on the prior study. This likely represents a trace resolving subarachnoid hemorrhage. There is no CT evidence of acute cortical infarction. There is no midline shift. There is no intraventricular hemorrhage. There is no evidence of pathologic ventricular dilatation. There is no evidence of acute sinusitis IMPRESSION: 1. The previously identified focus of increased attenuation within the right parietal lobe is less conspicuous on the current study. This likely represents a resolving trace subarachnoid hemorrhage. 2. No new findings are evident Electronically signed by: Darell Nichols M.D. 05/05/2017 4:30 PM Dictated Date/Time: 05/05/2017 4:25 PM
--- NOTE | 2017-05-05 18:52 | Progress Note ---
Subjective Date of Service: May 05, 2017. Subjective Pt evaluation today including: conversation w/ patient, conversation w/ family ( at bedside), physical exam, chart review, lab review, conversation w/ [employer] fusion consultant (critical care), review of inpatient medication list Pain: had headache earlier today - now improved PO Intake: improving Voiding: voiding difficulty (PVR 200cc+) patient with ongoing vertigo but improved still with "jello legs" and weakness reports incomplete bladder emptying this is in the setting of prior TURP procedure by urology reports he was seen at [facility] yesterday and urine culture was sent denies dyspnea Problem List Medical Problems: (1) Abdominal pain, left lower quadrant Status: Acute (2) Anticoagulated on Coumadin Status: Acute (3) balance problem Status: Acute (4) Biliary colic Status: Acute (5) BPH (benign prostatic hypertrophy) Status: Chronic (6) Coagulopathy Status: Acute (7) CVA (cerebral vascular accident) Status: Acute (8) Depression Status: Chronic (9) Dyspnea Status: Acute (10) Emphysema Status: Chronic (11) Fall Status: Acute (12) Gastrointestinal infection Status: Acute (13) ICH (intracerebral hemorrhage) Status: Acute (14) Intracranial bleed Status: Acute (15) Intractable pain Status: Acute (16) Left arm cellulitis Status: Acute (17) Lightheaded Status: Acute (18) Macular degeneration Status: Chronic (19) NSTEMI (non-ST elevated myocardial infarction) Status: Acute (20) Peripheral neuropathy Status: Chronic (21) Prostatitis Status: Acute (22) Sepsis Status: Acute (23) Sepsis due to urinary tract infection Status: Acute (24) Septic olecranon bursitis of left elbow Status: Acute (25) Sleep apnea Status: Chronic (26) UTI (urinary tract infection) Status: Acute Surgical Problems: (1) AICD (automatic cardioverter/defibrillator) present Status: Chronic Review of Systems Constitutional: No fever, No chills Respiratory: No shortness of breath Cardiac: No chest pain Abdomen: No pain, No nausea, No vomiting Objective Vital Signs Date Time Temp Pulse Resp B/P (MAP) Pulse Ox O2 Delivery O2 Flow Rate FiO2 05/05/17 18:00 87 20 131/80 (97) 93 Nasal Cannula 2.0 05/05/17 16:00 37.0 115 18 118/59 (78) 97 Nasal Cannula 2.0 05/05/17 16:00 97 Nasal Cannula 2.0 05/05/17 14:01 36.7 73 18 118/59 (78) 95 Nasal Cannula 2.0 05/05/17 13:28 36.7 82 18 119/69 (86) 93 Nasal Cannula 2.0 05/05/17 13:00 82 26 119/69 (87) 93 05/05/17 12:00 76 28 117/80 (89) 05/05/17 11:47 76 22 126/83 (94) 92 05/05/17 11:20 36.7 77 18 125/74 (91) 94 Nasal Cannula 2.0 05/05/17 11:20 Nasal Cannula 2.0 05/05/17 11:00 78 26 125/74 (88) 91 05/05/17 10:59 78 22 116/73 (80) 90 05/05/17 10:00 87 28 126/82 (100) 92 05/05/17 09:20 36.7 77 18 114/77 (89) 94 Nasal Cannula 2.0 05/05/17 09:13 75 22 114/77 (88) 95 05/05/17 09:01 85 18 114/77 (88) 93 05/05/17 09:00 79 19 95 05/05/17 08:35 75 20 118/78 (87) 95 05/05/17 08:01 77 26 117/74 (89) 92 05/05/17 08:00 Nasal Cannula 05/05/17 08:00 70 22 93 05/05/17 07:30 36.7 72 17 110/58 (75) 93 Nasal Cannula 2.0 05/05/17 07:30 Nasal Cannula 2.0 05/05/17 07:01 75 16 110/58 (73) 89 05/05/17 07:00 71 13 93 05/05/17 05:31 74 17 99/57 (71) 94 Nasal Cannula 2.0 05/05/17 05:01 76 26 101/59 (73) 89 Nasal Cannula 2.0 05/05/17 04:01 73 6 92/51 (65) 97 05/05/17 04:00 92 Nasal Cannula 2.0 05/05/17 03:42 76 26 86/43 (57) 92 05/05/17 03:41 75 24 74/41 (52) 94 05/05/17 03:01 71 24 98/55 (69) 93 05/05/17 02:31 74 23 105/62 (76) 96 05/05/17 02:01 68 16 87/49 (62) 05/05/17 01:31 67 23 101/54 (70) 94 05/05/17 01:01 67 12 82/50 (61) 96 Nasal Cannula 2.0 05/05/17 00:34 71 15 93/49 (64) 93 05/05/17 00:04 74 27 99/57 (71) 93 05/04/17 23:59 92 Nasal Cannula 2.0 05/04/17 23:01 36.7 76 19 104/60 (75) 92 05/04/17 22:33 67 96 21 05/04/17 22:01 70 23 90/56 (67) 87 05/04/17 21:52 75 22 93/53 (66) 95 05/04/17 21:31 86 22 117/66 (83) 85 05/04/17 21:13 36.4 77 18 90/59 95 Room Air 05/04/17 21:06 74 19 90/59 (69) 94 05/04/17 20:00 77 18 92/53 95 Room Air 05/04/17 19:24 76 Physical Exam General Appearance: no apparent distress ENT: pharynx normal Neck: no JVD Respiratory/Chest: lungs clear, no respiratory distress, no accessory muscle use Cardiovascular: regular rate, rhythm, no gallop, no murmur Abdomen: normal bowel sounds, non tender, soft, no organomegaly Extremities: no pedal edema Neurologic/Psychiatric: alert, oriented x 3, + pertinent finding (finger/nose/ finger maneuver w/o dysmetria b/l arms; left arm tremor; no facial droop; strength 5/5 x 4 exts) Laboratory Results Last 24 Hours Test 05/04/17 20:08 05/04/17 21:33 05/04/17 21:40 05/04/17 21:45 Lactic Acid Level 1.8 mmol/L Hepatitis C Antibody Screen NEG Bedside Glucose 128 mg/dl Influenza Type A (RT-PCR) Neg for Influ A Influenza Type B (RT-PCR) Neg for Influ B Test 05/04/17 22:35 05/04/17 22:41 05/05/17 04:59 05/05/17 11:00 Phosphorus Level 2.5 mg/dl Lactic Acid Level 1.4 mmol/L 1.1 mmol/L Random Cortisol 15.33 mcg/dl White Blood Count 15.68 K/uL Red Blood Count 3.46 M/uL Hemoglobin 10.5 g/dL Hematocrit 31.0 % Mean Corpuscular Volume 89.6 fL Mean Corpuscular Hemoglobin 30.3 pg Mean Corpuscular Hemoglobin Concent 33.9 g/dl Platelet Count 155 K/uL Mean Platelet Volume 10.1 fL Neutrophils (%) (Auto) 85.9 % Lymphocytes (%) (Auto) 7.8 % Monocytes (%) (Auto) 5.1 % Eosinophils (%) (Auto) 0.6 % Basophils (%) (Auto) 0.1 % Neutrophils # (Auto) 13.46 K/uL Lymphocytes # (Auto) 1.23 K/uL Monocytes # (Auto) 0.80 K/uL Eosinophils # (Auto) 0.10 K/uL Basophils # (Auto) 0.01 K/uL RDW Standard Deviation 46.1 fL RDW Coefficient of Variation 14.0 % Immature Granulocyte % (Auto) 0.5 % Immature Granulocyte # (Auto) 0.08 K/uL Prothrombin Time 17.2 SECONDS Prothromb Time International Ratio 1.7 Sodium Level 137 mmol/L Potassium Level 3.7 mmol/L Chloride Level 107 mmol/L Carbon Dioxide Level 25 mmol/L Anion Gap 5.0 mmol/L Blood Urea Nitrogen 24 mg/dl Creatinine 0.91 mg/dl Est Creatinine Clear Calc Drug Dose 84.2 ml/min Estimated GFR () 97.2 Estimated GFR (Non- 83.9 BUN/Creatinine Ratio 26.2 Random Glucose 113 mg/dl Calcium Level 7.6 mg/dl Magnesium Level 1.8 mg/dl Total Bilirubin 1.0 mg/dl Direct Bilirubin 0.3 mg/dl Aspartate Amino Transf (AST/SGOT) 12 U/L Alanine Aminotransferase (ALT/SGPT) 18 U/L Alkaline Phosphatase 36 U/L Total Protein 5.6 gm/dl Albumin 2.4 gm/dl Prostate Specific Antigen 6.200 ng/ml Procalcitonin 10.44 ng/ml Bedside Glucose 133 mg/dl Assessment and Plan 72yo male - 1. probable trace right-sided SAH - this afternoon's head CT shows it is resolving. Warfarin is being held. 2. vertigo - suspect 2nd to head injury/SAH/concussion - treat symptoms. CT has improved. No evidence clinically or radiographically of stroke. 3. sepsis / severe sepsis - suspected source - urine. will perform MARY ALICE tomorrow to exclude prostatitis given his symptoms and CT findings. Request urine culture from [facility]. Follow repeat cultures from our ER. 4. chronic systolic/diastolic CHF - appears compensated at this time. Caution with ongoing IVF administration. 5. CAD with prior h/o NC - no evidence of ACS at this time. 6. h/o multiple VTE events (DVT and PE) - noted; resume coumadin when deemed safe from neurological standpoint. May need to contact neurosurgery at [facility] or [facility] for their opinion. If he is deemed not a candidate for anticoagulation then IVC filter? 7. acute kidney injury - resolved. 8. BPH - MARY ALICE tomorrow. If urinary retention worsens may need ray. 9. COPD - not in exacerbation at this time. 10. HTN - holding BP meds at this time. 11. ROSE - continue home CPAP. 12. h/o v-tach - has AICD in place. PT, OT when able Continued [facility] stay due to: ambulation difficulties, multiple IV medications needed Discharge planning: uncertain
[2017-05-05] MEDS: CARVEDILOL 12.5 MG TAB PO SCH (20:47)
[2017-05-05] MEDS: SENNA 8.6 MG TAB PO SCH (20:47)
[2017-05-05] MEDS: SIMVASTATIN 40 MG TAB PO SCH (20:48)
[2017-05-06] VITALS (10 sets, daily range): BP systolic 104–151; BP diastolic 52–101; PULSE 74–114; TEMP 36.6–38.1; O2SAT 90–96; Ht 177.8 cm; Wt 93.5 kg
[2017-05-06] MEDS: SODIUM CHLORIDE 0.9% 1000ML 1,000 ML IV SCH ×2 (02:33→22:13)
[2017-05-06] MEDS: ALBUTEROL HFA 8 GM INHALER INH SCH ×4 (03:31→22:14)
[2017-05-06] MEDS: METOCLOPRAMIDE HCL 5 MG TAB PO SCH ×3 (05:36→22:13)
[2017-05-06] MEDS: AZTREONAM IV 2,000 MG in DEXTROSE 5% 100ML 100 ML IV SCH ×3 (05:36→22:14)
[2017-05-06 05:42] LABS: BASO % 0.1 %; BASO ABS # 0.01 K/uL (0-0.2); EOS % 0.5 %; EOS ABS # 0.05 K/uL (0-0.5); HEMOGLOBIN 11.6 g/dL (14.0-18.0); IG# 0.05 K/uL (0.00-0.02); LYMPH % 8.6 %; LYMPH ABS # 0.96 K/uL (1.2-3.4); MEAN CELL VOLUME 90.2 fL (80-100); MEAN CORPUSCULAR HEMOGLOBIN 29.9 pg (25-34); MEAN CORPUSCULAR HGB CONC 33.1 g/dl (32-36); MEAN PLATELET VOLUME 10.3 fL (7.4-10.4); MONO ABS # 0.56 K/uL (0.11-0.59); NEUT % 85.3 %; NEUT ABS # 9.48 K/uL (1.4-6.5); PLATELET COUNT 172 K/uL (130-400); RED CELL DISTRIBUTION WIDTH CV 13.9 % (11.5-14.5); RED CELL DISTRIBUTION WIDTH SD 45.9 fL (36.4-46.3); WHITE BLOOD COUNT 11.11 K/uL (4.8-10.8)
[2017-05-06 05:52] LABS: INR 1.1 (0.9-1.1)
[2017-05-06 06:23] LABS: ALBUMIN 2.4 gm/dl (3.4-5.0); CALCIUM 8.3 mg/dl (8.5-10.1); CREATININE 0.94 mg/dl (0.60-1.40); POTASSIUM 3.8 mmol/L (3.5-5.1); TOTAL PROTEIN 6.3 gm/dl (6.4-8.2)
[2017-05-06] MEDS: PANTOprazole SOD 40 MG TAB PO SCH (07:35)
[2017-05-06] MEDS: FINASTERIDE 5 MG TAB PO SCH (07:35)
[2017-05-06] MEDS: RANITIDINE HCL 150 MG TAB PO SCH ×2 (07:35→19:57)
[2017-05-06] MEDS: DOCUSATE SODIUM 100 MG CAP PO SCH ×2 (07:35→19:57)
[2017-05-06] MEDS: TIOTROPIUM BROMIDE 5 PUFF/90 MCG INH INH SCH (07:36)
[2017-05-06] MEDS: CARVEDILOL 25 MG TAB PO SCH (07:36)
[2017-05-06] MEDS: ARTIFICIAL TEARS OP OINT 3.5 GM TUBE OPB SCH (07:36)
[2017-05-06] MEDS: OXYCODONE HCL 10 MG TABCR (OXYCONTIN) PO SCH ×2 (07:39→19:58)
--- NOTE | 2017-05-06 08:26 | DIAGNOSTIC IMAGING REPORT ---
CHEST ONE VIEW PORTABLE CLINICAL HISTORY: Shortness of breath COMPARISON STUDY: 05/05/2017 FINDINGS: The heart is enlarged. There is a left subclavian pacer/defibrillator present. Since the prior study, the patient developed asymmetric pulmonary edema, right greater than left.. There is a small right pleural effusion.[ IMPRESSION: Interval development of asymmetric pulmonary edema right greater than left. Small right pleural effusion. Electronically signed by: Darell Nichols M.D. 05/06/2017 8:25 AM Dictated Date/Time: 05/06/2017 8:24 AM
[2017-05-06] MEDS: ALUMINUM/MAGNESIUM/SIMETH (MAALOX MAX) 30 ML UDC PO PRN ×2 (09:47→15:24)
[2017-05-06] MEDS ORDERED: BUMETANIDE IV 1 MG in SYRINGE 0 ML IV ONE (10:00)
[2017-05-06] MEDS ORDERED: MECLIZINE HCL 12.5 MG TAB PO PRN (11:45)
[2017-05-06] MEDS: MoRPHine SULFATE 4 MG/ML 1 ML CARP\\VIAL IV PRN ×3 (15:31→19:57)
--- NOTE | 2017-05-06 18:18 | Progress Note ---
Subjective Date of Service: May 06, 2017. Subjective Pt evaluation today including: conversation w/ patient, conversation w/ family ( at bedside), physical exam, chart review, lab review, conversation w/ cost consultant (critical care, urology ), review of inpatient medication list Pain: none PO Intake: improving Voiding: ray catheter in place tele stable overnight this AM he developed dyspnea and orthopnea cxr w/ pulmonary edema IVF stopped and placed on IV diuretic he denies cough, fever, chills no nausea or emesis very weak when he stands and some dizziness also reports ongoing vertigo but improved from previous Problem List Medical Problems: (1) Abdominal pain, left lower quadrant Status: Acute (2) Anticoagulated on Coumadin Status: Acute (3) balance problem Status: Acute (4) Biliary colic Status: Acute (5) BPH (benign prostatic hypertrophy) Status: Chronic (6) Coagulopathy Status: Acute (7) CVA (cerebral vascular accident) Status: Acute (8) Depression Status: Chronic (9) Dyspnea Status: Acute (10) Emphysema Status: Chronic (11) Fall Status: Acute (12) Gastrointestinal infection Status: Acute (13) ICH (intracerebral hemorrhage) Status: Acute (14) Intracranial bleed Status: Acute (15) Intractable pain Status: Acute (16) Left arm cellulitis Status: Acute (17) Lightheaded Status: Acute (18) Macular degeneration Status: Chronic (19) NSTEMI (non-ST elevated myocardial infarction) Status: Acute (20) Peripheral neuropathy Status: Chronic (21) Prostatitis Status: Acute (22) Sepsis Status: Acute (23) Sepsis due to urinary tract infection Status: Acute (24) Septic olecranon bursitis of left elbow Status: Acute (25) Sleep apnea Status: Chronic (26) UTI (urinary tract infection) Status: Acute Surgical Problems: (1) AICD (automatic cardioverter/defibrillator) present Status: Chronic Review of Systems Constitutional: No fever, No chills, No sweats Respiratory: No cough Cardiac: + orthopnea, No chest pain, No edema Abdomen: No pain, No nausea, No vomiting Objective Vital Signs Date Time Temp Pulse Resp B/P (MAP) Pulse Ox O2 Delivery O2 Flow Rate FiO2 05/06/17 16:00 36.9 74 22 121/66 (84) 94 Nasal Cannula 4.0 1/11/18 16:00 Nasal Cannula 4.0 05/06/17 12:00 36.7 74 24 104/52 (69) 93 Nasal Cannula 4.0 05/06/17 12:00 Nasal Cannula 4.0 05/06/17 08:00 Nasal Cannula 4.0 05/06/17 08:00 36.7 87 20 130/76 (94) 90 Nasal Cannula 4.0 05/06/17 04:14 36.9 80 130/83 (99) 96 Nasal Cannula 4.0 05/06/17 04:00 Nasal Cannula 2.0 05/06/17 00:00 36.6 80 17 113/69 (84) 94 Nasal Cannula 2.0 80 05/05/17 23:59 Nasal Cannula 2.0 05/05/17 22:37 80 92 21 05/05/17 22:00 88 22 130/73 (92) 93 05/05/17 20:00 36.8 88 24 139/84 (102) 94 Nasal Cannula 2.0 05/05/17 20:00 93 Nasal Cannula 2.0 Physical Exam General Appearance: no apparent distress ENT: pharynx normal Neck: + JVD Respiratory/Chest: no respiratory distress, no accessory muscle use, + crackles (bases) Cardiovascular: regular rate, rhythm, no gallop, no murmur Abdomen: normal bowel sounds, non tender, soft, no organomegaly Extremities: + pedal edema Neurologic/Psychiatric: alert, oriented x 3 Comments: MARY ALICE - enlarged prostate, left lobe boggy and quite tender; right lobe also tender but is more firm to palpation (question of nodular contour); stool brown ; no rectal masses following the MARY ALICE his ray catheter put out a very small amount of pink-tinged urine Laboratory Results Last 24 Hours Test 05/06/17 05:20 White Blood Count 11.11 K/uL Red Blood Count 3.88 M/uL Hemoglobin 11.6 g/dL Hematocrit 35.0 % Mean Corpuscular Volume 90.2 fL Mean Corpuscular Hemoglobin 29.9 pg Mean Corpuscular Hemoglobin Concent 33.1 g/dl Platelet Count 172 K/uL Mean Platelet Volume 10.3 fL Neutrophils (%) (Auto) 85.3 % Lymphocytes (%) (Auto) 8.6 % Monocytes (%) (Auto) 5.0 % Eosinophils (%) (Auto) 0.5 % Basophils (%) (Auto) 0.1 % Neutrophils # (Auto) 9.48 K/uL Lymphocytes # (Auto) 0.96 K/uL Monocytes # (Auto) 0.56 K/uL Eosinophils # (Auto) 0.05 K/uL Basophils # (Auto) 0.01 K/uL RDW Standard Deviation 45.9 fL RDW Coefficient of Variation 13.9 % Immature Granulocyte % (Auto) 0.5 % Immature Granulocyte # (Auto) 0.05 K/uL Prothrombin Time 11.2 SECONDS Prothromb Time International Ratio 1.1 Sodium Level 136 mmol/L Potassium Level 3.8 mmol/L Chloride Level 106 mmol/L Carbon Dioxide Level 23 mmol/L Anion Gap 7.0 mmol/L Blood Urea Nitrogen 18 mg/dl Creatinine 0.94 mg/dl Est Creatinine Clear Calc Drug Dose 82.0 ml/min Estimated GFR () 93.5 Estimated GFR (Non- 80.7 BUN/Creatinine Ratio 19.2 Random Glucose 106 mg/dl Calcium Level 8.3 mg/dl Total Bilirubin 0.5 mg/dl Direct Bilirubin 0.1 mg/dl Aspartate Amino Transf (AST/SGOT) 12 U/L Alanine Aminotransferase (ALT/SGPT) 18 U/L Alkaline Phosphatase 39 U/L Total Protein 6.3 gm/dl Albumin 2.4 gm/dl Assessment and Plan 72yo male - 1. trace right-sided SAH - most recent head CT showed either stable SAH vs resolving SAH. Either way the hemorrhage is small. Coumadin has been reversed. Neuro symptoms (vertigo, etc) have improved. Cont serial exams. PT, OT. 2. vertigo - suspect 2nd to head injury/SAH/concussion - treat symptoms ( antivert, etc). CT has improved. No evidence clinically or radiographically of stroke. 3. sepsis / severe sepsis likely due to UTI / prostatitis - urine cx from sent from [facility] is growing 30,000 CFU of a GNR. Cont aztreonam, await final culture. Blood cx's negative. Clinically he appears to have prostatitis and will likely need up to 4 weeks of antibiotics. 4. acute/chronic systolic/diastolic CHF - agree with IV diuresis. Continue such and check BMP qam. Daily weights, I's and O's, etc. 5. CAD with prior h/o NM - no evidence of ACS at this time. 6. h/o multiple VTE events (DVT and PE) - noted; resume coumadin when deemed safe from neurological standpoint. May need to contact neurosurgery at [facility] or [facility] for their opinion. If he is deemed not a candidate for anticoagulation then IVC filter? 7. acute kidney injury - resolved. 8. BPH with urinary retention - ray placed yesterday due to retention. Now with ehematuria - see below. 9. COPD - not in exacerbation at this time. 10. HTN - since hypotension has resolved his coreg has been resumed. Also resume POP when creatinine deemed to be consistently stable. 11. ROSE - continue home CPAP. 12. h/o v-tach - has AICD in place. 13. hematuria - started today in the midst of his MARY ALICE to r/o prostatitis. He then had clots this afternoon causing obstruction of his ray. Spoke with urology and larger ray catheter recommended with hand irrigation. CBI would be last option but hold on that for now. CBC in am. PT, OT appreciated updated at bedside twice today Continued [facility] stay due to: ambulation difficulties, multiple IV medications needed Discharge planning: uncertain
[2017-05-06] MEDS: SIMVASTATIN 40 MG TAB PO SCH (19:57)
[2017-05-06] MEDS: SENNA 8.6 MG TAB PO SCH (19:57)
[2017-05-06] MEDS: CARVEDILOL 12.5 MG TAB PO SCH (19:59)
[2017-05-06] MEDS ORDERED: BELLADONNA/OPIUM SUPP 60 MG SUPP PR ONE (20:48)
--- NOTE | 2017-05-06 21:03 | Urology Consultation ---
History General Date of Service: May 06, 2017. Chief Complaint: Retention, prostatitis, ray not draining. Primary Care Physician: Tramaine Peterson MD Pt seen a urologist before?: Yes If yes, why?: BPH, LUTS History of Present Illness Patient is a 72-year-old male, in the ICU today with his , well- known to myself for history of BPH and voiding difficulties status post greenlight vaporization of the prostate in December 2016. He reports he was doing relatively well up until approximately 2 weeks ago when he began to develop dysuria, suprapubic pressure, malaise, slowing stream, urgency and urinary incontinence. His felt he might have a urinary tract infection and suggest he be in contact with our office but he wished to wait until his appointment in June 2017. His symptoms worsened and ultimately he ended up falling and hitting his head at home. He is being admitted and treated for sepsis with presumptive prostatitis. Per hospitalist report he has improved since his admission patient feels that he is feeling better. However, he has had some hematuria recently and difficulties with drainage of his Ray catheter. Patient reports a feeling of suprapubic fullness and spasms with drainage of urine around the catheter. Catheter was increased in size per our recommendations without drainage. 20 [place] 3-way hematuria catheter is in place with little urine output per nursing report. Urology consultation is requested urgently to assist with the patient's care. HPI - Urinary Retention Sx Patient has: + urinary retention, + ray, + hematuria Prior surgery/interventions: TURP (GLTURP Dec 2016) HPI - UTI Symptoms: frequency, urgency, hesitancy, incontinence History of Surgery: positive Associated History: + h/o surgery, + sexual activity, No h/o childhood UTI Imaging Imaging: CT Laboratory Last 24 Hours Test 05/06/17 05:20 White Blood Count 11.11 K/uL Red Blood Count 3.88 M/uL Hemoglobin 11.6 g/dL Hematocrit 35.0 % Mean Corpuscular Volume 90.2 fL Mean Corpuscular Hemoglobin 29.9 pg Mean Corpuscular Hemoglobin Concent 33.1 g/dl Platelet Count 172 K/uL Mean Platelet Volume 10.3 fL Neutrophils (%) (Auto) 85.3 % Lymphocytes (%) (Auto) 8.6 % Monocytes (%) (Auto) 5.0 % Eosinophils (%) (Auto) 0.5 % Basophils (%) (Auto) 0.1 % Neutrophils # (Auto) 9.48 K/uL Lymphocytes # (Auto) 0.96 K/uL Monocytes # (Auto) 0.56 K/uL Eosinophils # (Auto) 0.05 K/uL Basophils # (Auto) 0.01 K/uL RDW Standard Deviation 45.9 fL RDW Coefficient of Variation 13.9 % Immature Granulocyte % (Auto) 0.5 % Immature Granulocyte # (Auto) 0.05 K/uL Prothrombin Time 11.2 SECONDS Prothromb Time International Ratio 1.1 Sodium Level 136 mmol/L Potassium Level 3.8 mmol/L Chloride Level 106 mmol/L Carbon Dioxide Level 23 mmol/L Anion Gap 7.0 mmol/L Blood Urea Nitrogen 18 mg/dl Creatinine 0.94 mg/dl Est Creatinine Clear Calc Drug Dose 82.0 ml/min Estimated GFR () 93.5 Estimated GFR (Non- 80.7 BUN/Creatinine Ratio 19.2 Random Glucose 106 mg/dl Calcium Level 8.3 mg/dl Total Bilirubin 0.5 mg/dl Direct Bilirubin 0.1 mg/dl Aspartate Amino Transf (AST/SGOT) 12 U/L Alanine Aminotransferase (ALT/SGPT) 18 U/L Alkaline Phosphatase 39 U/L Total Protein 6.3 gm/dl Albumin 2.4 gm/dl Problem List Medical Problems: (1) Abdominal pain, left lower quadrant Status: Acute (2) Anticoagulated on Coumadin Status: Acute (3) balance problem Status: Acute (4) Biliary colic Status: Acute (5) BPH (benign prostatic hypertrophy) Status: Chronic (6) Coagulopathy Status: Acute (7) CVA (cerebral vascular accident) Status: Acute (8) Depression Status: Chronic (9) Dyspnea Status: Acute (10) Emphysema Status: Chronic (11) Fall Status: Acute (12) Gastrointestinal infection Status: Acute (13) ICH (intracerebral hemorrhage) Status: Acute (14) Intracranial bleed Status: Acute (15) Intractable pain Status: Acute (16) Left arm cellulitis Status: Acute (17) Lightheaded Status: Acute (18) Macular degeneration Status: Chronic (19) NSTEMI (non-ST elevated myocardial infarction) Status: Acute (20) Peripheral neuropathy Status: Chronic (21) Prostatitis Status: Acute (22) Sepsis Status: Acute (23) Sepsis due to urinary tract infection Status: Acute (24) Septic olecranon bursitis of left elbow Status: Acute (25) Sleep apnea Status: Chronic (26) UTI (urinary tract infection) Status: Acute Surgical Problems: (1) AICD (automatic cardioverter/defibrillator) present Status: Chronic Past History arrhythmia, arthritis, BPH, congestive heart failure, COPD, CVA/TIA/stroke, diverticulosis, GERD, high cholesterol, myocardial infarction, pulmonary embolism, other (sleep apnea) Past Surgical History: cardiac catheterization, cholecystectomy, colonoscopy, vasectomy, other (implantation of ICD, greenlight prostate vaporization, bilateral foot surgery, eye surgery) Family History Patient reports no known family medical history. Family history of breast cancer and hypertension Social History Hx Tobacco Use In Past Year?: No (SMOKED 1 1/2 PPD X 30 YRS-QUIT 1992) Smoking: quit greater than 1 year Alcohol: no current use Drug use: none Marital status: Housing status: lives with family Occupation status: retired Immunizations History of Influenza Vaccine: Yes Influenza Vaccine Date: Dec 29, 2010 History of Tetanus Vaccine?: Yes Tetanus Immunization Date: Oct 28, 2010 History of Pneumococcal: Yes Pneumococcal Date: Jan 28, 2011 History of Hepatitis B Vaccine: Yes Allergies Coded Allergies: BEE STING (Verified Allergy, Unknown, SWELLING, SOB, 10/01/16) Lidocaine (Verified Allergy, Unknown, RASH, 10/01/16) Penicillins (Verified Allergy, Unknown, SWELLING, DIFFICULTY BREATHING, 10/01/16) SWELLING Hydrocodone (Verified Adverse Reaction, Mild, nausea, 10/01/16) Oxycodone (Verified Adverse Reaction, Mild, nausea, 10/01/16) Medications Home Medications: Home Meds and Scripts Medications Dose Route/Sig Max Daily Dose Days Date Category Dose Instructions Oxycontin (Oxycodone Hcl) 20 Mg Tab 0.5 Tab PO BID 30 05/04/17 Reported Reglan (Metoclopramide HCl) 10 Mg Tab 5 Mg PO Q8 05/04/17 Reported Maalox Max Susp (Al Hydrox/Mg Hydrox/Simethicone) Susp 5 Ml PO HS 05/04/17 Reported Lubriderm (Emollient) 1 Lot Lot 1 Appln TOP Q8 05/04/17 Reported Coreg (Carvedilol) 25 Mg Tab 25 Mg PO QAM 05/04/17 Reported Refresh Lacri-Lube (Artificial Tear Ointment) 1 Oin Oin 1 Drop OPB QAM 10/01/16 Reported Bupropion HCl 100 Mg Tab 100 Mg BID 09/01/16 Reported Spiriva Handihaler (Tiotropium [place]) 30 Puff/540 Mcg Aerp 1 Cap INH DAILY 09/01/16 Reported Nystatin (Nystatin (Topical)) 1 Pow Pow 1 Appln TOP BID 09/01/16 Reported Ventolin Hfa (Albuterol) 200 Puffs/31457 Mcg Aers 2 Puffs INH Q6H 09/01/16 Reported Lisinopril 5 Mg Tab 5 Mg PO QPM 09/01/16 Reported Aspirin 81 (Aspirin) 81 Mg Tab 81 Mg PO DAILY 09/01/16 Reported Mometasone Furoate (Mometasone Furoate (Nasal)) 50 Mcg/Act Spr 2 Sprays DEB DAILY 09/01/16 Reported Docusate Sodium 100 Mg Tab 100 Mg PO BID 09/01/16 Reported NOON Epinephrine 0.3 Mg/0.3 Ml Inj 0.3 Mg INJ PRN UD 09/01/16 Reported Zestril (Lisinopril) 5 Mg Tab 2.5 Mg PO QAM 07/29/16 Reported Protonix (Pantoprazole) 40 Mg Tab 40 Mg PO AM/NOON 02/07/16 Reported Coreg (Carvedilol) 25 Mg Tab 12.5 Mg PO QPM 02/07/16 Reported Bumex (Bumetanide) 1 Mg Tab 1 Mg PO QAM 11/21/15 Reported Jantoven (Warfarin Sodium) 5 Mg Tab 2.5 Mg PO 2XWK 11/20/15 Reported ASHANTI RECINOS Coumadin (Warfarin Sod) 5 Mg Tab 5 Mg PO 5XWK 06/12/15 Reported M,W,F,S,S Klor-Con (Potassium Chloride) 20 Meq Tabcr 20 Meq PO BID 06/12/15 Reported Zocor (Simvastatin) 80 Mg Tab 40 Mg PO QPM 02/27/13 Reported Sennosides 8.6 Mg Tab 8.6 Mg PO HS 02/27/13 Reported Ferrous Sulfate 325 Mg Tab 325 Mg PO HS 02/27/13 Reported TAKE WITH FOOD Folvite (Folic Acid) 1 Mg Tab 1 Mg PO QAM 08/09/12 Reported Zantac (Ranitidine HCl) 150 Mg Tab 2 Cap PO HS 03/30/11 Reported Proscar (Finasteride) 5 Mg Tab 5 Mg PO QAM 11/30/08 Reported Inpatient Medications: Current Inpatient Medications Medications (Trade) Dose Ordered Sig/Charly Route Start Time Stop Time Status Last Admin Dose Admin Albuterol (Ventolin Hfa Inhaler) 2 puffs Q6H INH 05/04/17 22:00 06/03/17 21:59 05/06/17 15:30 2 PUFFS Artificial Tears (Lacri-Lube Oph Oint) 1 appln QAM OPB 05/05/17 09:00 06/04/17 08:59 05/06/17 07:36 1 APPLN Bupropion HCl (Wellbutrin Tab) 100 mg BID17 PO 05/04/17 21:00 06/03/17 20:59 05/06/17 15:30 100 MG Carvedilol (Coreg Tab) 12.5 mg QPM PO 05/04/17 21:00 06/03/17 20:59 05/06/17 19:59 12.5 MG Carvedilol (Coreg Tab) 25 mg QAM PO 05/05/17 09:00 06/04/17 08:59 05/06/17 07:36 25 MG Finasteride (Proscar Tab) 5 mg QAM PO 05/05/17 09:00 06/04/17 08:59 05/06/17 07:35 5 MG Folic Acid (Folvite Tab) 1 mg QAM PO 05/05/17 09:00 06/04/17 08:59 05/06/17 07:37 1 MG Metoclopramide HCl (Reglan Tab) 5 mg Q8 PO 05/04/17 22:00 06/03/17 21:59 05/06/17 13:03 5 MG Pantoprazole Sodium (Protonix Tab) 40 mg DAILY PO 05/05/17 09:00 06/04/17 08:59 05/06/17 07:35 40 MG Senna (Senokot Tab) 8.6 mg HS PO 05/04/17 21:00 06/03/17 20:59 05/06/17 19:57 8.6 MG Simvastatin (Zocor Tab) 40 mg QPM PO 05/04/17 21:00 06/03/17 20:59 05/06/17 19:57 40 MG Tiotropium [place] (Spiriva Handihaler Inhaler) 1 puff DAILY INH 05/05/17 09:00 06/04/17 08:59 05/06/17 07:36 1 PUFF Docusate Sodium (coLACE CAP) 100 mg BID PO 05/04/17 21:00 06/03/17 20:59 05/06/17 19:57 100 MG Oxycodone HCl (Oxycontin Tab) 10 mg Q12 PO 05/04/17 21:00 06/03/17 20:59 05/06/17 19:58 10 MG Acetaminophen (Tylenol Tab) 650 mg Q4H PRN PO 05/04/17 19:30 06/03/17 19:29 05/05/17 15:46 650 MG Lorazepam (Ativan Tab) 0.5 mg Q4H PRN PO 05/04/17 19:30 06/03/17 19:29 Al Hydrox/Mg Hydrox/Simethicone (Maalox Max Susp) 15 ml Q4H PRN PO 05/04/17 19:30 06/03/17 19:29 05/06/17 15:24 15 ML Magnesium Hydroxide (Milk Of Magnesia Susp) 30 ml Q12H PRN PO 05/04/17 19:30 06/03/17 19:29 Ondansetron HCl (Zofran Inj) 4 mg Q6H PRN IV 05/04/17 19:30 06/03/17 19:29 Ranitidine HCl (zANTac TAB) 150 mg BID PO 05/04/17 21:00 06/03/17 20:59 05/06/17 19:57 150 MG Morphine Sulfate (MoRPHine SULFATE INJ) 4 mg Q2H PRN IV 05/04/17 19:30 05/18/17 19:29 05/06/17 19:57 4 MG Aztreonam 2000 mg/ Dextrose 110 ml @ 100 mls/hr Q8H IV 05/04/17 22:00 05/14/17 21:59 05/06/17 13:03 100 MLS/HR Miscellaneous Information (Icu Protocol For Hyperglycemia) 1 ea PRN PRN N/A 05/04/17 21:45 05/06/17 21:44 Bumetanide (Bumex Tab) 1 mg QAM PO 05/07/17 09:00 06/06/17 08:59 Meclizine HCl (Antivert Tab) 12.5 mg Q6H PRN PO 05/06/17 11:45 06/05/17 11:44 05/06/17 14:21 12.5 MG Review of Systems Review of Systems Constitutional: No fever, No chills Eyes: No eye pain Neurological: + passing out Endocrine: + tired/sluggish Gastrointestinal: + abdominal pain, No nausea, No vomiting Cardiovascular: No angina Respiratory: No coughing up blood Skin: No boils Musculoskeletal: No back pain Blood / Lymphatic: + bleed easily Ears / Nose / Throat: No hearing loss, No sinus Psychologic / Mental: No trouble remembering Male : + see HPI, + weak stream, + blood in urine, + infections Physical Exam Vital Signs: Vital Signs Past 12 Hours Date Time Temp Pulse Resp B/P (MAP) Pulse Ox O2 Delivery O2 Flow Rate FiO2 05/06/17 20:00 36.9 79 13 112/67 (82) 93 Nasal Cannula 4.0 05/06/17 20:00 Nasal Cannula 4.0 05/06/17 16:00 36.9 74 22 121/66 (84) 94 Nasal Cannula 4.0 05/06/17 16:00 Nasal Cannula 4.0 05/06/17 12:00 36.7 74 24 104/52 (69) 93 Nasal Cannula 4.0 05/06/17 12:00 Nasal Cannula 4.0 Physical Exam: General Appearance: no apparent distress, + obese ENT: normal ENT inspection, hearing grossly normal Neck: supple, no adenopathy Respiratory/Chest: no respiratory distress, no accessory muscle use Cardiovascular: no JVD Gastrointestinal: Abdomen: normal abdomen Bladder: normal bladder Renal: normal renal Liver: normal liver Spleen: normal spleen Extremities: non-tender Neurologic/Psychiatric: alert Skin: normal color Assessment & Plan Assessment & Plan A/P 72 yo male with prostatitis, hematuria, malfunctioning ray. Attempts at irrigation through the 20 [place] Ray catheter in place met with little success. His catheter is removed and a 24 [place] hematuria 3-way catheter was placed with no resistance into the bladder save at the level of the fossa navicularis. 15 mL placed within the balloon. Catheter irrigated with resistance and discomfort. On distention of the bladder catheter able to be drained with spastic obstruction of the bladder. Very few clots removed and all of these are of small caliber. This is hooked up to CBI which is able to be run quickly without resistance or obstruction and with return of light pink urine and no clots. Catheter irrigated again with difficulties withdrawing fluid actively through the [place] syringe but passive drainage with isovolemic return. This is suspicious for ongoing bladder spasms rather than clot obstruction from the level of the prostate especially over a relatively short course of time. Will place the Ray to slow CBI and provide antispasmodics for the bladder. Hand irrigation every 2 hours to ensure a lack of obstructing clot. Will follow patient with primary service. Continue antibiotic coverage.
[2017-05-06] MEDS: LEVOFLOXACIN / D5W 750 MG in PREMIXED IN D5W 150 ML IV SCH (22:00)
--- NOTE | 2017-05-06 22:08 | DIAGNOSTIC IMAGING REPORT ---
CHEST ONE VIEW PORTABLE CLINICAL HISTORY: code purple dyspnea COMPARISON STUDY: 05/06/2017 7:56 AM FINDINGS: Developing and or progressive components of congestive failure and/or pulmonary edema. Cardiomegaly is subtle increase. Bipolar cardiac pacemaker/defibrillator with leads in good position. No evidence of pneumothorax. IMPRESSION: Mildly progressive congestive failure and/or pulmonary edema The above report was generated using voice recognition software. It may contain grammatical, syntax or spelling errors. Electronically signed by: Junior Rosas M.D. 05/06/2017 10:07 PM Dictated Date/Time: 05/06/2017 10:06 PM
--- NOTE | 2017-05-06 22:10 | DIAGNOSTIC IMAGING REPORT ---
KUB CLINICAL HISTORY: Abdominal Pain pain COMPARISON STUDY: 07/10/2016. FINDINGS: several loops of small bowel which are air filled. Air-filled transverse and descending colon. No secondary signs of free air. Moderate distention transverse colon with a maximum diameter of 9.5 cm. IMPRESSION: Moderate colonic and small bowel ileus. Moderate nonspecific distention transverse colon The above report was generated using voice recognition software. It may contain grammatical, syntax or spelling errors. Electronically signed by: Junior Rosas M.D. 05/06/2017 10:09 PM Dictated Date/Time: 05/06/2017 10:08 PM
[2017-05-06] MEDS ORDERED: VANCOMYCIN CONSULT ACTIVE PRN (22:15)
[2017-05-06 22:27] LABS: BASO % 0.6 %; BASO ABS # 0.03 K/uL (0-0.2); EOS % 1.4 %; EOS ABS # 0.07 K/uL (0-0.5); HEMATOCRIT 35.3 % (42-52); HEMOGLOBIN 11.9 g/dL (14.0-18.0); IG# 0.05 K/uL (0.00-0.02); LYMPH ABS # 0.62 K/uL (1.2-3.4); MEAN CELL VOLUME 90.3 fL (80-100); MEAN CORPUSCULAR HEMOGLOBIN 30.4 pg (25-34); MEAN CORPUSCULAR HGB CONC 33.7 g/dl (32-36); MEAN PLATELET VOLUME 10.6 fL (7.4-10.4); MONO % 5.2 %; MONO ABS # 0.27 K/uL (0.11-0.59); NEUT % 79.8 %; NEUT ABS # 4.12 K/uL (1.4-6.5); NUCLEATED RED BLOOD CELL ABS 0.06 K/uL (0-0); PLATELET COUNT 167 K/uL (130-400); RED CELL DISTRIBUTION WIDTH CV 13.8 % (11.5-14.5); RED CELL DISTRIBUTION WIDTH SD 45.4 fL (36.4-46.3); WHITE BLOOD COUNT 5.16 K/uL (4.8-10.8)
[2017-05-06] MEDS: OXYBUTYNIN CHLORIDE 5 MG TAB PO PRN (22:29)
[2017-05-06] MEDS ORDERED: VANCOMYCIN INJ 2,250 MG in SODIUM CHLORIDE 0.9% 500ML 500 ML IV SCH (22:30)
--- NOTE | 2017-05-06 22:35 | Pharmacy Progress Note ---
Pharmacy Antibiotic Consult Date of Service: May 06, 2017. Pharmacy Dosing Scope Pharmacy is consulted to initiate vancomycin IV dosing therapy, order appropriate labs and adjust drug dose/frequency. Subjective The patient is a 72 year old male admitted on May 04, 2017 at 19:38 with severe sepsis secondary to UTI/prostatitis. Objective Height (Feet): 5 Height (Inches): 10.00 Weight (Kilograms): 94.500 Lab Results (24hrs): Test 05/06/17 05:20 05/06/17 21:51 05/06/17 22:10 White Blood Count 11.11 K/uL (4.8-10.8) Red Blood Count 3.88 M/uL (4.7-6.1) Hemoglobin 11.6 g/dL (14.0-18.0) Hematocrit 35.0 % (42-52) Mean Corpuscular Volume 90.2 fL (80-100) Mean Corpuscular Hemoglobin 29.9 pg (25-34) Mean Corpuscular Hemoglobin Concent 33.1 g/dl (32-36) Platelet Count 172 K/uL (130-400) Mean Platelet Volume 10.3 fL (7.4-10.4) Neutrophils (%) (Auto) 85.3 % Lymphocytes (%) (Auto) 8.6 % Monocytes (%) (Auto) 5.0 % Eosinophils (%) (Auto) 0.5 % Basophils (%) (Auto) 0.1 % Neutrophils # (Auto) 9.48 K/uL (1.4-6.5) Lymphocytes # (Auto) 0.96 K/uL (1.2-3.4) Monocytes # (Auto) 0.56 K/uL (0.11-0.59) Eosinophils # (Auto) 0.05 K/uL (0-0.5) Basophils # (Auto) 0.01 K/uL (0-0.2) RDW Standard Deviation 45.9 fL (36.4-46.3) RDW Coefficient of Variation 13.9 % (11.5-14.5) Immature Granulocyte % (Auto) 0.5 % Immature Granulocyte # (Auto) 0.05 K/uL (0.00-0.02) Prothrombin Time 11.2 SECONDS (9.0-12.0) Prothromb Time International Ratio 1.1 (0.9-1.1) Sodium Level 136 mmol/L (136-145) Potassium Level 3.8 mmol/L (3.5-5.1) Chloride Level 106 mmol/L (98-107) Carbon Dioxide Level 23 mmol/L (21-32) Anion Gap 7.0 mmol/L (3-11) Blood Urea Nitrogen 18 mg/dl (7-18) Creatinine 0.94 mg/dl (0.60-1.40) Est Creatinine Clear Calc Drug Dose 82.0 ml/min Estimated GFR () 93.5 Estimated GFR (Non- 80.7 BUN/Creatinine Ratio 19.2 (10-20) Random Glucose 106 mg/dl (70-99) Calcium Level 8.3 mg/dl (8.5-10.1) Total Bilirubin 0.5 mg/dl (0.2-1) Direct Bilirubin 0.1 mg/dl (0-0.2) Aspartate Amino Transf (AST/SGOT) 12 U/L (15-37) Alanine Aminotransferase (ALT/SGPT) 18 U/L (12-78) Alkaline Phosphatase 39 U/L (45-117) Total Protein 6.3 gm/dl (6.4-8.2) Albumin 2.4 gm/dl (3.4-5.0) Creatine Kinase MB Ratio (0-3.0) Micro Results: Blood cx X 2 pending Positive MRSA nasal swab Urine cx pos for GNR from UC done prior to admission. Recent Pertinent Medications Azactam 2gm IV q8h (05/04 to present) Levaquin 750mg IV q 24 Assessment & Plan Vancomycin: Loading dose: 2250 mg IV X 1 dose (~24mg/kg) then: 1250 mg IV every 12 hours. Goal trough level estimate: between 15 - 20 mcg/mL. Peak and trough or random level has been ordered for: 05/08 prior to 0800 dose. Pharmacy will continue to follow and will adjust dose/frequency as necessary. Thank you
[2017-05-06 23:00] LABS: ALBUMIN 2.4 gm/dl (3.4-5.0); CKMB 2.3 ng/ml (0.5-3.6); CREATININE 1.35 mg/dl (0.60-1.40); PHOSPHORUS 2.9 mg/dl (2.5-4.9); POTASSIUM 4.1 mmol/L (3.5-5.1); TOTAL PROTEIN 6.4 gm/dl (6.4-8.2)
--- NOTE | 2017-05-06 23:11 | DIAGNOSTIC IMAGING REPORT ---
ABD/PELVIS WITHOUT FOR STONE CT DOSE: 1865.34 mGy.cm HISTORY: Perforation. Infection. ?perf/prostitis TECHNIQUE: Multiaxial CT images of the abdomen and pelvis were performed without the use of intravenous and oral contrast according to the standard department stone protocol. A dose lowering technique was utilized adhering to the principles of ALARA. COMPARISON STUDY: 05/04/2017 FINDINGS: Pre-existing hiatal hernia. Interval development of bilateral pleural effusions with somewhat progressive basilar infiltrative change. Liver spleen and pancreas remain grossly unremarkable. Prior cholecystectomy. Kidneys negative for hydronephrosis. Unchanging right renal nonobstructing calcification with unchanging lower pole left renal cyst or hyperdense cyst. Bowel pattern currently is nonobstructive. There is no significant colonic distention on this examination. Bladder contains a combination of fluid as well as air possibly from a catheterization procedure. The catheter appears to be located in the prosthetic portion of the urethra and should be advanced. The balloon specifically is in the proximal penile urethra and should be deflated and advanced before subsequent reinflation. Study is considered negative for free air or bowel obstructive change. The mild nonspecific infiltrative changes of the fascial planes of the low pelvis persist. These again remain nonspecific. Postoperative changes right inguinal region from prior hernia repair. IMPRESSION: 1. No evidence for bowel obstruction or distention. 2. Progressive bilateral pleural effusions and basilar infiltrative changes. 3. Nonobstructing 4 mm right renal calculus unchanged. 4. Infiltrative changes of the low pelvic fascial planes are unchanged. 5. Kingston catheter is inflated within the balloon in the proximal penile urethra and the tip in the prostatic component of the urethra. 6. The catheter should be deflated, advanced, and then reinflated. The above report was generated using voice recognition software. It may contain grammatical, syntax or spelling errors. Electronically signed by: Junior Rosas M.D. 05/06/2017 11:09 PM Dictated Date/Time: 05/06/2017 11:02 PM
--- NOTE | 2017-05-06 23:20 | Critical Care Progress Note ---
Critical Care Progress Note Date of Service May 06, 2017. ICU Day ICU Day Number: [address] Otero Subjective Patient is a 72-year-old male who was recently downgraded from ICU status on 05/04 after initial admission for sepsis from urinary source with borderline septic shock. In addition, the patient was found to have a slight ICH in the setting of an elevated INR secondary to fall. He responded well to aggressive IV fluid resuscitation and IV antibiotics. He initially had a significant leukocytosis greater than 26,000 which is since decreased in half. Initial lactic acid was found to be 3.2 which normalized within 5 hours. He had a slight MERT on initial presentation as well which had improved with fluid hydration. His most recent complication has been difficulty with voiding and need for Kingston catheter placement. He was draining well until he developed significant clot burden in his bladder which obstructed his Kingston catheter output. Because of this, Dr. Perales of urology was consult at today to perform catheterization. Patient required three-way catheter with continuous irrigation. Patient had moderate discomfort during and immediately after Kingston placement. He was subsequently transferred to second floor room 222 to telemetry status. A code purple was called to the room for which I responded with fellow colleagues. Patient was found to be rigorous with tachycardia, hypertension, and hypoxia. Patient reports that he feels very cold. Laboratory orders and imaging orders were placed by myself and hospitalist staff. Patient was transferred back to the ICU for closer evaluation. Repeat labs demonstrated normalization of leukocytosis. The patient is not overtly anemic. He has no significant electrolyte abnormalities. He does appear to have a slight MERT compared to 05/06. Lactic acid did elevate to 3.2. PSA decreased. Pro calcitonin declined as well. Interestingly, the patient's troponin elevated at 0.101. Upon arrival at the ICU, the patient has decrease in his rigors. He reports feeling somewhat better. He initially reports that he was having some trouble breathing while he was shaking, but had no chest pain. He denies any pleuritic pain or shortness of breath this time. He denies any cough. He denies any tightness in his chest. He denies any abdominal discomfort. He does complain of some lower back discomfort which she states is ongoing. He complains of continued mild posterior headache which is been present since his fall and subsequent ICH. He denies a blurred or double vision. He denies any weakness in his extremities. Objective VITAL SIGNS - Vital signs and nursing notes were reviewed. GENERAL - 72-year-old male appearing his stated age who is rigorous and in acute distress. Communicates well with provider and answers questions appropriately. HEAD - Normocephalic. EYES - PERRL with EOMI bilaterally. Sclera anicteric. Palpebral conjunctiva pink and moist with no injection noted. EARS - No deformities of external structures noted on gross examination bilaterally. No pain elicited with palpation of the tragus bilaterally. NOSE - Midline and without cyanosis. No epistaxis or purulent drainage noted. MOUTH/OROPHARYNX - Without perioral cyanosis. Buccal mucosa pink and moist and without leukoplakia. Tongue midline with equal elevation of palate bilaterally. NECK - Neck with FROM. Supple to palpation. LUNGS - Chest wall symmetric without accessory muscle use, intercostals retractions, or central cyanosis. Normal vesicular breath sounds CTA B/L. No wheezes, rales, or rhonchi appreciated. CARDIAC - RRR with S1/S2. No murmur, rubs, or gallops appreciated. ABDOMEN - Abdominal contour obese and without pulsations or visible masses. BS normoactive all four quadrants. No tenderness, palpable masses, hepatosplenomegaly, or ascites noted. EXTREMITIES - No pretibial edema present. +3/5 radial and dorsalis pedis pulses palpated throughout. FROM with no tremors or clonus noted on PROM throughout. +5 /5 strength noted in UE/LE bilaterally. NEUROLOGIC - Cranial nerves II through XII grossly intact. PSYCH - A&Ox3 and cooperates fully with examiner. Pt is very pleasant and interacts well with examiner. Assessment & Plan (1) Sepsis due to urinary tract infection (2) Prostatitis (3) Gastrointestinal infection (4) Sepsis (5) Fall (6) Coagulopathy (7) ICH (intracerebral hemorrhage) (8) balance problem Reason Critically Ill: 72-year-old male with recent ICH secondary to fall and weakness from sepsis. Patient with acute decompensation and sepsis with rigors and fever requiring close monitoring in the ICU setting. Neuro - * CAM ICU: NEGATIVE * Trace ICH (SAH) - Resolved: * Initially anticoagulated 2/2 h/o VTEs - corrected. * No neurological changes throughout stay. * Serial CTs negative. * Question utility of Formal Neurology consultation vs. conversation w/ neurosurgery regarding antiseizure medication in the setting of ICH? * Neuropathy: * Continue home Rx. Cardiac - * CHF in the setting of acute sepsis: * CXR shows slight progression in congestive changes. * Judicious use of IVF as patient had been aggressively hydrated on presentation. He is currently 2L POSITIVE. * Will add his home CPAP initially. May progress with non-invasive versus need for formal intubation. * Vasoactive support if needed. * New elevated troponin in setting of sepsis: * Suspect demand ischemia - initially tachycardic/hypertensive/hypoxic during Code Purple. * Trend troponins. * Will hold on Heparin gtt at this point 2/2 recent ICH, current hematuria/ clots. * Will reassess risks/benefits of anticoagulation/antiplatelet therapy in this patient. * Will add Echo for AM in the setting of sepsis/CHF w/ acute decompensation. * h/o CAD, AICD placement, HTN, HLD: * Continue home Rx as tolerated by parameters. * Ventricularly paced at 87bpm on EKG. * Monitor on telemetry. * EKGs for CP * Consider Formal Cardiology Consult pending repeat troponin levels. Respiratory - * h/o COPD, PEs: * Initially hypoxic during rigors/code purple. * Likely related to cardiac demand as patient was moderately tachycardic. * CXR shows only mild progression of CHF. * Will add noninvasive ventilation as tolerated by pt and BP. * Home treatments. * Monitor closely for volume overload. * Patient's presentation appears more consistent with hypoxia in the setting of sepsis and mixed lung diseases versus new PE, however this certainly does remain high on the differential. Patient recovered well w/ his breathing/ hypoxia when his rigors resolved. He was never in any pain (chest/pleuritic). He was never actually SOB, rather difficulty 2/2 shakiness. He is certainly at high risk for VTE as he was rapidly corrected 2/2 ICH. At this point, we will forgot formal anticoagulation pending clinical progression. Risks for reinstituting anticoagulation/antiplatelet therapy w/ ICH and current bleeding are very high and patient has clinically improved with outlined course. GI - * GERD/Hiatal Hernia w/ h/o Fundoplication: * Prophylaxis w/ Protonix. * Diet: AHA RENAL/LYTES - * MERT w/ BUN/Cr of 26/1.35: * Will conservatively rehydrate w/ NSS@50mL/hr as pt is volume UP (+2L) w/ recent fluid resuscitation. * Will reassess as needed. * Will monitor electrolytes, replace appropriately. - * Sepsis 2/2 Prostatitis w/ possible reseeding of infection: * Initial Blood/Urine cultures negative. * Will repeat Urine culture. * Will add Levaquin back. * Awaiting cultures. ENDO - * No h/o DM or Thyroid Disease. * BSGs w/ ISS/gtt per protocol. HEME - * Stable H&H - monitor daily w/ recent bleeding. ID - * Sepsis 2/2 Prostatitis w/ acute decompensation (rigors/fever/hypoxia): * Currently on Aztreonam only. * Added Levaquin back on for dual Pseudomonal coverage in the acutely ill phase w/ decompensation. * Vancomycin added for MRSA coverage w/ continued hospitalization and POSITIVE MRSA nasal swab. LINES/IV ACCESS - * PIVs intact. * Will consider CVL if need for vasoactive medications. DVT PROPHYLAXIS - * Will continue to hold at this time - as discussed above. I have personally spent 45 minutes of critical care time in the direct management of this patient. This is a life/limb threatening event. This includes time spent evaluating patient, direct bedside care, chart review, placing orders, interpretation of diagnostic studies, discussion with consultants, patient, and family members, as well as other required patient management activities. This time is exclusive of all separately billable procedures, and teaching time and separate from and in addition to any other critical care service time. Thank you for this consultation allow us to be part of this patient's care. Please refer to my attending physician's documentation for any further recommendations. Consults & Procedures Consultants: Dr. Perales - Urology Dr. Whitley - Attending Hospitalist Procedures: Irrigation Kingston Catheter placed - Dr. Perales Data Medications: Current Inpatient Medications Medications (Trade) Dose Ordered Sig/Charly Route Start Time Stop Time Status Last Admin Dose Admin Albuterol (Ventolin Hfa Inhaler) 2 puffs Q6H INH 05/04/17 22:00 06/03/17 21:59 05/06/17 22:14 2 PUFFS Artificial Tears (Lacri-Lube Oph Oint) 1 appln QAM OPB 05/05/17 09:00 06/04/17 08:59 05/06/17 07:36 1 APPLN Bupropion HCl (Wellbutrin Tab) 100 mg BID17 PO 05/04/17 21:00 06/03/17 20:59 05/06/17 15:30 100 MG Carvedilol (Coreg Tab) 12.5 mg QPM PO 05/04/17 21:00 06/03/17 20:59 05/06/17 19:59 12.5 MG Carvedilol (Coreg Tab) 25 mg QAM PO 05/05/17 09:00 06/04/17 08:59 05/06/17 07:36 25 MG Finasteride (Proscar Tab) 5 mg QAM PO 05/05/17 09:00 06/04/17 08:59 05/06/17 07:35 5 MG Folic Acid (Folvite Tab) 1 mg QAM PO 05/05/17 09:00 06/04/17 08:59 05/06/17 07:37 1 MG Metoclopramide HCl (Reglan Tab) 5 mg Q8 PO 05/04/17 22:00 06/03/17 21:59 05/06/17 22:13 5 MG Pantoprazole Sodium (Protonix Tab) 40 mg DAILY PO 05/05/17 09:00 06/04/17 08:59 05/06/17 07:35 40 MG Senna (Senokot Tab) 8.6 mg HS PO 05/04/17 21:00 06/03/17 20:59 05/06/17 19:57 8.6 MG Simvastatin (Zocor Tab) 40 mg QPM PO 05/04/17 21:00 06/03/17 20:59 05/06/17 19:57 40 MG Tiotropium Babbitt (Spiriva Handihaler Inhaler) 1 puff DAILY INH 05/05/17 09:00 06/04/17 08:59 05/06/17 07:36 1 PUFF Docusate Sodium (coLACE CAP) 100 mg BID PO 05/04/17 21:00 06/03/17 20:59 05/06/17 19:57 100 MG Oxycodone HCl (Oxycontin Tab) 10 mg Q12 PO 05/04/17 21:00 06/03/17 20:59 05/06/17 19:58 10 MG Acetaminophen (Tylenol Tab) 650 mg Q4H PRN PO 05/04/17 19:30 06/03/17 19:29 05/05/17 15:46 650 MG Lorazepam (Ativan Tab) 0.5 mg Q4H PRN PO 05/04/17 19:30 06/03/17 19:29 Al Hydrox/Mg Hydrox/Simethicone (Maalox Max Susp) 15 ml Q4H PRN PO 05/04/17 19:30 06/03/17 19:29 05/06/17 15:24 15 ML Magnesium Hydroxide (Milk Of Magnesia Susp) 30 ml Q12H PRN PO 05/04/17 19:30 06/03/17 19:29 Ondansetron HCl (Zofran Inj) 4 mg Q6H PRN IV 05/04/17 19:30 06/03/17 19:29 Ranitidine HCl (zANTac TAB) 150 mg BID PO 05/04/17 21:00 06/03/17 20:59 05/06/17 19:57 150 MG Morphine Sulfate (MoRPHine SULFATE INJ) 4 mg Q2H PRN IV 05/04/17 19:30 05/18/17 19:29 05/06/17 19:57 4 MG Aztreonam 2000 mg/ Dextrose 110 ml @ 100 mls/hr Q8H IV 05/04/17 22:00 05/14/17 21:59 05/06/17 22:14 100 MLS/HR Bumetanide (Bumex Tab) 1 mg QAM PO 05/07/17 09:00 06/06/17 08:59 Meclizine HCl (Antivert Tab) 12.5 mg Q6H PRN PO 05/06/17 11:45 06/05/17 11:44 05/06/17 14:21 12.5 MG Belladonna/Opium (B & O Adult Supp) 60 mg Q8 PRN MI 05/06/17 21:00 05/20/17 20:59 Oxybutynin Chloride (Ditropan Tab) 5 mg Q8 PRN PO 05/06/17 21:00 06/05/17 20:59 05/06/17 22:29 5 MG Vancomycin HCl 1250 mg/Sodium Chloride 275 ml @ 125 mls/hr Q12H IV 05/07/17 08:00 05/13/17 19:59 Levofloxacin 750 mg/Prmx 150 ml @ 100 mls/hr Q24H IV 05/06/17 22:00 05/13/17 21:59 05/06/17 22:00 100 MLS/HR Sodium Chloride 1,000 ml @ 50 mls/hr Q20H IV 05/06/17 21:45 06/05/17 21:44 05/06/17 22:13 100 MLS/HR Vancomycin HCl (Consult) 1 ea UD PRN N/A 05/06/17 22:15 06/05/17 22:14 Vancomycin HCl 2250 mg/Sodium Chloride 545 ml @ 200 mls/hr TODAY@2230 IV 05/06/17 22:30 05/07/17 01:14 05/06/17 22:31 200 MLS/HR Acetaminophen 650 mg/Empty Bag 65 ml @ 260 mls/hr NOW ONCE IV 05/06/17 23:45 05/06/17 23:59 05/06/17 23:07 260 MLS/HR I & O: 24-Hour Column 05/07/17 08:00 Intake Total 1205 ml Output Total 1725 ml Balance -520 ml Vital Signs: Date Time Temp Pulse Resp B/P (MAP) Pulse Ox O2 Delivery O2 Flow Rate FiO2 05/06/17 22:16 38.1 106 20 132/73 (92) 92 Oxymask 15.0 05/06/17 21:40 37.0 114 26 151/101 (118) 95 Oxymask 15.0 05/06/17 20:00 36.9 79 13 112/67 (82) 93 Nasal Cannula 4.0 05/06/17 20:00 Nasal Cannula 4.0 05/06/17 16:00 36.9 74 22 121/66 (84) 94 Nasal Cannula 4.0 05/06/17 16:00 Nasal Cannula 4.0 05/06/17 12:00 36.7 74 24 104/52 (69) 93 Nasal Cannula 4.0 05/06/17 12:00 Nasal Cannula 4.0 05/06/17 08:00 Nasal Cannula 4.0 05/06/17 08:00 36.7 87 20 130/76 (94) 90 Nasal Cannula 4.0 05/06/17 04:14 36.9 80 130/83 (99) 96 Nasal Cannula 4.0 05/06/17 04:00 Nasal Cannula 2.0 05/06/17 00:00 36.6 80 17 113/69 (84) 94 Nasal Cannula 2.0 80 05/05/17 23:59 Nasal Cannula 2.0 Laboratory Results: Last 24 Hours Test 05/06/17 05:20 05/06/17 22:10 White Blood Count 11.11 K/uL 5.16 K/uL Red Blood Count 3.88 M/uL 3.91 M/uL Hemoglobin 11.6 g/dL 11.9 g/dL Hematocrit 35.0 % 35.3 % Mean Corpuscular Volume 90.2 fL 90.3 fL Mean Corpuscular Hemoglobin 29.9 pg 30.4 pg Mean Corpuscular Hemoglobin Concent 33.1 g/dl 33.7 g/dl Platelet Count 172 K/uL 167 K/uL Mean Platelet Volume 10.3 fL 10.6 fL Neutrophils (%) (Auto) 85.3 % 79.8 % Lymphocytes (%) (Auto) 8.6 % 12.0 % Monocytes (%) (Auto) 5.0 % 5.2 % Eosinophils (%) (Auto) 0.5 % 1.4 % Basophils (%) (Auto) 0.1 % 0.6 % Neutrophils # (Auto) 9.48 K/uL 4.12 K/uL Lymphocytes # (Auto) 0.96 K/uL 0.62 K/uL Monocytes # (Auto) 0.56 K/uL 0.27 K/uL Eosinophils # (Auto) 0.05 K/uL 0.07 K/uL Basophils # (Auto) 0.01 K/uL 0.03 K/uL RDW Standard Deviation 45.9 fL 45.4 fL RDW Coefficient of Variation 13.9 % 13.8 % Immature Granulocyte % (Auto) 0.5 % 1.0 % Immature Granulocyte # (Auto) 0.05 K/uL 0.05 K/uL Prothrombin Time 11.2 SECONDS 10.7 SECONDS Prothromb Time International Ratio 1.1 1.0 Sodium Level 136 mmol/L 132 mmol/L Potassium Level 3.8 mmol/L 4.1 mmol/L Chloride Level 106 mmol/L 100 mmol/L Carbon Dioxide Level 23 mmol/L 20 mmol/L Anion Gap 7.0 mmol/L 11.0 mmol/L Blood Urea Nitrogen 18 mg/dl 26 mg/dl Creatinine 0.94 mg/dl 1.35 mg/dl Est Creatinine Clear Calc Drug Dose 82.0 ml/min 57.1 ml/min Estimated GFR () 93.5 60.4 Estimated GFR (Non- 80.7 52.1 BUN/Creatinine Ratio 19.2 19.1 Random Glucose 106 mg/dl 155 mg/dl Calcium Level 8.3 mg/dl 8.0 mg/dl Total Bilirubin 0.5 mg/dl 0.7 mg/dl Direct Bilirubin 0.1 mg/dl 0.2 mg/dl Aspartate Amino Transf (AST/SGOT) 12 U/L 20 U/L Alanine Aminotransferase (ALT/SGPT) 18 U/L 18 U/L Alkaline Phosphatase 39 U/L 67 U/L Total Protein 6.3 gm/dl 6.4 gm/dl Albumin 2.4 gm/dl 2.4 gm/dl Nucleated RBC Absolute Count (auto) 0.06 K/uL Nucleated Red Blood Cells % 1.1 % Lactic Acid Level 3.2 mmol/L Phosphorus Level 2.9 mg/dl Magnesium Level 2.0 mg/dl Total Creatine Kinase 103 U/L Creatine Kinase MB 2.3 ng/ml Creatine Kinase MB Ratio 2.2 Troponin I 0.101 ng/ml Prostate Specific Antigen 5.580 ng/ml Problem Qualifiers (1) Prostatitis: Prostatitis type: acute Qualified Codes: N41.0 - Acute prostatitis (2) Sepsis: Sepsis type: sepsis due to unspecified organism Qualified Codes: A41.9 - Sepsis, unspecified organism (3) Fall: Encounter type: initial encounter Qualified Codes: W19.XXXA - Unspecified fall, initial encounter (4) ICH (intracerebral hemorrhage): Intracerebral hemorrhage etiology: traumatic
[2017-05-06] MEDS ORDERED: ACETAMINOPHEN IV 650 MG in EMPTY BAG 0 ML IV ONE (23:45)
[2017-05-07] VITALS (19 sets, daily range): BP systolic 94–174; BP diastolic 52–108; PULSE 64–101; TEMP 36.1–38.3; O2SAT 78–97
[2017-05-07] MEDS: METOCLOPRAMIDE HCL 5 MG TAB PO SCH ×3 (05:43→21:00)
[2017-05-07] MEDS: AZTREONAM IV 2,000 MG in DEXTROSE 5% 100ML 100 ML IV SCH ×3 (05:43→21:29)
[2017-05-07 06:16] LABS: BASO % 0.2 %; BASO ABS # 0.02 K/uL (0-0.2); EOS % 0.8 %; EOS ABS # 0.08 K/uL (0-0.5); HEMATOCRIT 34.1 % (42-52); HEMOGLOBIN 11.3 g/dL (14.0-18.0); IG# 0.12 K/uL (0.00-0.02); LYMPH % 10.4 %; LYMPH ABS # 1.03 K/uL (1.2-3.4); MEAN CELL VOLUME 89.7 fL (80-100); MEAN CORPUSCULAR HEMOGLOBIN 29.7 pg (25-34); MEAN CORPUSCULAR HGB CONC 33.1 g/dl (32-36); MEAN PLATELET VOLUME 10.6 fL (7.4-10.4); MONO ABS # 0.89 K/uL (0.11-0.59); NEUT % 78.4 %; NEUT ABS # 7.75 K/uL (1.4-6.5); PLATELET COUNT 178 K/uL (130-400); RED CELL DISTRIBUTION WIDTH CV 13.8 % (11.5-14.5); WHITE BLOOD COUNT 9.89 K/uL (4.8-10.8)
[2017-05-07 06:45] LABS: CREATININE 0.91 mg/dl (0.60-1.40)
[2017-05-07 06:46] LABS: POTASSIUM 3.7 mmol/L (3.5-5.1)
[2017-05-07 06:59] LABS: PHOSPHORUS 2.4 mg/dl (2.5-4.9)
[2017-05-07] MEDS ORDERED: PERFLUTREN LIPID MICROSPHERE (DEFINITY) IV ONE (07:02)
[2017-05-07] MEDS ORDERED: VANCOMYCIN INJ 1,250 MG in SODIUM CHLORIDE 0.9% 250ML 250 ML IV SCH (08:00)
[2017-05-07] MEDS: RANITIDINE HCL 150 MG TAB PO SCH ×2 (08:12→21:03)
[2017-05-07] MEDS: DOCUSATE SODIUM 100 MG CAP PO SCH ×2 (08:12→21:00)
[2017-05-07] MEDS: BUMETANIDE 1 MG TAB PO SCH (08:12)
[2017-05-07] MEDS: TIOTROPIUM BROMIDE 5 PUFF/90 MCG INH INH SCH (08:13)
[2017-05-07] MEDS: FINASTERIDE 5 MG TAB PO SCH (08:13)
[2017-05-07] MEDS: ARTIFICIAL TEARS OP OINT 3.5 GM TUBE OPB SCH (08:13)
[2017-05-07] MEDS: PANTOprazole SOD 40 MG TAB PO SCH (08:14)
--- NOTE | 2017-05-07 08:14 | DIAGNOSTIC IMAGING REPORT ---
CHEST ONE VIEW PORTABLE CLINICAL HISTORY: Congestive heart failure. COMPARISON STUDY: Chest radiograph May 06, 2017. FINDINGS: A biventricular left subclavian pacer/AICD is in place. There is no pneumothorax. Moderate to marked cardiomegaly is unchanged. Bilateral pleural effusions persist. There is persistent interstitial thickening and bilateral opacities which favors pulmonary edema. IMPRESSION: No significant change in findings suggestive of moderate pulmonary edema with bilateral pleural effusions. Electronically signed by: Adam Benson M.D. 05/07/2017 8:12 AM Dictated Date/Time: 05/07/2017 8:11 AM
[2017-05-07] MEDS: OXYCODONE HCL 10 MG TABCR (OXYCONTIN) PO SCH ×2 (08:17→21:27)
[2017-05-07] MEDS ORDERED: POTASSIUM PHOSPHATE INJ 12 MMOL in SODIUM CHLORIDE 0.9% 250ML 250 ML IV STA (08:46)
[2017-05-07] MEDS ORDERED: POTASSIUM PHOS 3 MMOL/1 ML INFUSION IV STA (08:46)
[2017-05-07] MEDS: CARVEDILOL 25 MG TAB PO SCH (09:00)
[2017-05-07] MEDS: MoRPHine SULFATE 4 MG/ML 1 ML CARP\\VIAL IV PRN ×2 (09:20→11:00)
--- NOTE | 2017-05-07 09:32 | ECHOCARDIOGRAM REPORT ---
*NOTICE TO RECEIVING [employer] This information is strictly Confidential and protected under [place] law. [place] law prohibits you from making any further disclosure of this information unless further disclosure is expressly permitted by the written consent of the person to whom it pertains or is authorized by law. A general authorization for the release of medical or other information is not sufficient for this purpose. Hospital accepts no responsibility if the information is made available to any other person, INCLUDING THE PATIENT. Interpretation Summary * Name: ZIGGY DEUTSCH Study Date: 05/07/2017 06:31 AM BP: 100/54 mmHg * [facility] HR: 64 * : 1945 (M/d/yy) Gender: Male Height: 70 in * Age: 72 yrs Ethnicity: [place] Weight: 208 lb * Ordering Physician: Adan Lance * Referring Physician: Self, Referred * Performed By: Jesenia Ferro RDCS * * Reason For Study: Congestive Heart Failure, Elevated Troponin * BSA: 2.1 m2 * -- Conclusions -- * The left ventricle is borderline dilated. * There is borderline concentric left ventricular hypertrophy. * Left ventricular systolic function is moderate to severely reduced. * There are regional wall motion abnormalities as specified. * The right ventricle is mildly dilated. * The right ventricular systolic function is mild to moderately reduced. * The left atrium is moderately dilated. * The right atrium is mildly dilated. * There is mild mitral regurgitation. * Right ventricular systolic pressure is elevated at 30-40mmHg. * Compared to a study from 08/2016, the overall LV systolic function appears slightly worse Procedure Details * A complete two-dimensional transthoracic echocardiogram was performed (2D, M-mode, Doppler and color flow Doppler). * A contrast injection of Definity was performed to improve assessment of LV function. * Contrast was injected into an intravenous site in the right arm. * One vial of Definity ultrasound contrast was diluted in normal saline to a total volume of 10 ml. A total of '2' ml of solution was administered during imaging. * Lot # [id number] of Definity utilized for procedure. * Expiration date . * The attending nurse who injected the contrast agent was HAROON Mathews. Left Ventricle * The left ventricle is borderline dilated. * There is borderline concentric left ventricular hypertrophy. * Ejection Fraction = 30-35%. * Left ventricular systolic function is moderate to severely reduced. * There are regional wall motion abnormalities as specified. * Septal motion is consistent with conduction abnormality. * Posterior and basal inferior akinesis. Moderate hypokinesis of the anterior and lateral waggoner. Right Ventricle * The right ventricle is mildly dilated. * There is a pacemaker lead in the right ventricle. * The right ventricular systolic function is mild to moderately reduced. * The right ventricular systolic function is reduced as assessed by tricuspid annular plane systolic excursion (TAPSE) (TAPSE <1.6 cm). Atria * The left atrium is moderately dilated. * The right atrium is mildly dilated. Mitral Valve * The mitral valve is grossly normal. * There is mild mitral regurgitation. Tricuspid Valve * The tricuspid valve is not well visualized, but is grossly normal. * There is mild tricuspid regurgitation. * Right ventricular systolic pressure is elevated at 30-40mmHg. Aortic Valve * The aortic valve is normal in structure and function. * No hemodynamically significant valvular aortic stenosis. * There is no significant aortic regurgitation. Great Vessels * The aortic root is normal size. Pericardium/Pleural * Prominent pericardial fat pad Great Vessels * The inferior vena cava is mildly dilated. MMode 2D Measurements and Calculations IVSd 1.1 cm IVSs 1.6 cm LVIDd 5.0 cm LVIDs 4.2 cm LVPWd 1.6 cm LVPWs 1.7 cm IVS/LVPW 0.71 FS 16.5 % EDV(Teich) 117.6 ml ESV(Teich) 77.0 ml EF(Teich) 34.5 % EDV(cubed) 124.2 ml ESV(cubed) 72.2 ml EF(cubed) 41.8 % % IVS thick 41.6 % % LVPW thick 11.8 % LV mass(C)d 268.8 grams LV mass(C)dI 126.6 grams/m\S\2 LV mass(C)s 285.7 grams LV mass(C)sI 134.6 grams/m\S\2 SV(Teich) 40.6 ml SI(Teich) 19.1 ml/m\S\2 SV(cubed) 51.9 ml SI(cubed) 24.5 ml/m\S\2 EPSS 2.8 cm Ao root diam 3.2 cm Ao root area 8.1 cm\S\2 ACS 1.7 cm LA dimension 4.8 cm LA/Ao 1.5 LVAd ap4 35.4 cm\S\2 LVLd ap4 8.4 cm EDV(MOD-sp4) 124.0 ml EDV(sp4-el) 126.6 ml LVAs ap4 26.4 cm\S\2 LVLs ap4 7.5 cm ESV(MOD-sp4) 80.4 ml ESV(sp4-el) 79.0 ml EF(MOD-sp4) 35.2 % EF(sp4-el) 37.6 % LVAd ap2 40.9 cm\S\2 LVLd ap2 8.3 cm EDV(MOD-sp2) 175.3 ml EDV(sp2-el) 171.1 ml LVAs ap2 33.8 cm\S\2 LVLs ap2 7.9 cm ESV(MOD-sp2) 128.9 ml ESV(sp2-el) 122.7 ml EF(MOD-sp2) 26.5 % EF(sp2-el) 28.3 % LVLd %diff -0.94 % EDV(MOD-bp) 147.5 ml LVLs %diff 5.2 % ESV(MOD-bp) 105.0 ml EF(MOD-bp) 28.8 % SV(MOD-sp4) 43.6 ml SI(MOD-sp4) 20.5 ml/m\S\2 SV(MOD-sp2) 46.4 ml SI(MOD-sp2) 21.9 ml/m\S\2 SV(MOD-bp) 42.5 ml SI(MOD-bp) 20.0 ml/m\S\2 SV(sp4-el) 47.5 ml SI(sp4-el) 22.4 ml/m\S\2 SV(sp2-el) 48.4 ml SI(sp2-el) 22.8 ml/m\S\2 Doppler Measurements and Calculations MV E max geeta 75.9 cm/sec MV A max geeta 53.5 cm/sec MV E/A 1.4 MV dec time 0.21 sec Ao V2 max 98.4 cm/sec Ao max PG 3.9 mmHg Ao max PG (full) 1.7 mmHg LV V1 max PG 2.2 mmHg LV V1 max 74.2 cm/sec PA V2 max 67.9 cm/sec PA max PG 1.8 mmHg PI max geeta 97.4 cm/sec PI max PG 3.8 mmHg PI dec slope 38.2 cm/sec\S\2 PI P1/2t 745.7 msec TR max geeta 257.1 cm/sec
[2017-05-07] MEDS: ALBUTEROL HFA 8 GM INHALER INH SCH ×3 (10:00→21:02)
[2017-05-07] MEDS ORDERED: NURSING VERBAL MED ORDER ONE (11:00)
--- NOTE | 2017-05-07 11:02 | Progress Note ---
Subjective Date of Service: May 07, 2017. (Hallie Geller CRNP) Subjective Pt evaluation today including: conversation w/ patient, chart review, lab review Voiding: ray catheter in place (draining martinez colored urine with CBI running) 72 yo male, difficult ray placement last evening. Ray catheter draining martinez colored urine with slow CBI running. Ray balloon appears to have migrated into the prostate on CT. (Hallie Geller CRNP) Pt evaluation today including: conversation w/ patient, physical exam, chart review, lab review, review of studies, conversation w/ provider contracting consultant Pain: patient complains joey pain in penis bu denies abdomenal pain that he had Pt with apparent bladder neck contracture s/p Turp . Pt had attempted ray placement for presumed prostatitis but ct last night showed ray in prostatic fossa with distended bladder. Dr. Perales reports he was able to get a wire through a bladder neck contracture and dilate the neck over the wire but he was unable to get a ray in .I have been asked to take the pt to the OR to get a catheter in the bladder . Unfortunately the pt ate at 8 am and anesthesia wants to wait 8 hours . I have requested they assess whether he could go in 6 hours. The pt has a dilator in his bladder over a wire but is not draining much at this time . His pvr is 48 cc now and he denies abdominal pain. (Nav Vang M.D.) Problem List Medical Problems: (1) Abdominal pain, left lower quadrant Status: Acute (2) Anticoagulated on Coumadin Status: Acute (3) balance problem Status: Acute (4) Biliary colic Status: Acute (5) BPH (benign prostatic hypertrophy) Status: Chronic (6) Coagulopathy Status: Acute (7) CVA (cerebral vascular accident) Status: Acute (8) Depression Status: Chronic (9) Dyspnea Status: Acute (10) Emphysema Status: Chronic (11) Fall Status: Acute (12) Gastrointestinal infection Status: Acute (13) ICH (intracerebral hemorrhage) Status: Acute (14) Intracranial bleed Status: Acute (15) Intractable pain Status: Acute (16) Left arm cellulitis Status: Acute (17) Lightheaded Status: Acute (18) Macular degeneration Status: Chronic (19) NSTEMI (non-ST elevated myocardial infarction) Status: Acute (20) Peripheral neuropathy Status: Chronic (21) Prostatitis Status: Acute (22) Sepsis Status: Acute (23) Sepsis due to urinary tract infection Status: Acute (24) Septic olecranon bursitis of left elbow Status: Acute (25) Sleep apnea Status: Chronic (26) UTI (urinary tract infection) Status: Acute Surgical Problems: (1) AICD (automatic cardioverter/defibrillator) present Status: Chronic (Hallie Geller CRNP) Review of Systems Constitutional: No fever, No chills Respiratory: No shortness of breath Cardiac: No chest pain Abdomen: No pain, No nausea, No vomiting Male : + hematuria Heme: No abnormal bleeding/bruising (Hallie Geller CRNP) Objective Vital Signs Date Time Temp Pulse Resp B/P (MAP) Pulse Ox O2 Delivery O2 Flow Rate FiO2 05/07/17 08:00 Nasal Cannula 4.0 05/07/17 05:00 64 100/54 (69) 78 CPAP 2.0 05/07/17 04:00 CPAP 6.0 05/07/17 04:00 36.1 73 95/62 (73) 93 CPAP 3.0 05/07/17 03:00 70 106/62 (77) 96 CPAP 4.0 05/07/17 02:00 37.3 73 98/75 (83) 97 CPAP 5.0 05/07/17 01:00 75 102/68 (79) 97 CPAP 6.0 05/07/17 00:00 38.3 85 102/67 (79) 94 CPAP 6.0 05/06/17 23:59 CPAP 6.0 05/06/17 23:20 97 93 6.0 05/06/17 22:16 38.1 106 20 132/73 (92) 92 Oxymask 15.0 05/06/17 21:40 37.0 114 26 151/101 (118) 95 Oxymask 15.0 05/06/17 20:00 36.9 79 13 112/67 (82) 93 Nasal Cannula 4.0 05/06/17 20:00 Nasal Cannula 4.0 05/06/17 16:00 36.9 74 22 121/66 (84) 94 Nasal Cannula 4.0 05/06/17 16:00 Nasal Cannula 4.0 05/06/17 12:00 36.7 74 24 104/52 (69 93 Nasal Cannula 4.0 05/06/17 12:00 Nasal Cannula 4.0 (Hallie Geller CRNP) Physical Exam General Appearance: no apparent distress Eyes: normal inspection ENT: hearing grossly normal Neck: no JVD Respiratory/Chest: no respiratory distress, no accessory muscle use Cardiovascular: no JVD Extremities: normal inspection Neurologic/Psychiatric: alert, normal mood/affect, oriented x 3 Skin: normal color (Hallie Geller, SUPPLY CHAIN ANALYST) General Appearance: + mild distress Abdomen: non tender, soft Comments: dilator coming out of penis with wire out it (Nav Vang M.D.) Laboratory Results Last 24 Hours Test 05/06/17 22:10 05/07/17 05:57 05/07/17 05:58 White Blood Count 5.16 K/uL 9.89 K/uL Red Blood Count 3.91 M/uL 3.80 M/uL Hemoglobin 11.9 g/dL 11.3 g/dL Hematocrit 35.3 % 34.1 % Mean Corpuscular Volume 90.3 fL 89.7 fL Mean Corpuscular Hemoglobin 30.4 pg 29.7 pg Mean Corpuscular Hemoglobin Concent 33.7 g/dl 33.1 g/dl Platelet Count 167 K/uL 178 K/uL Mean Platelet Volume 10.6 fL 10.6 fL Neutrophils (%) (Auto) 79.8 % 78.4 % Lymphocytes (%) (Auto) 12.0 % 10.4 % Monocytes (%) (Auto) 5.2 % 9.0 % Eosinophils (%) (Auto) 1.4 % 0.8 % Basophils (%) (Auto) 0.6 % 0.2 % Neutrophils # (Auto) 4.12 K/uL 7.75 K/uL Lymphocytes # (Auto) 0.62 K/uL 1.03 K/uL Monocytes # (Auto) 0.27 K/uL 0.89 K/uL Eosinophils # (Auto) 0.07 K/uL 0.08 K/uL Basophils # (Auto) 0.03 K/uL 0.02 K/uL RDW Standard Deviation 45.4 fL 45.0 fL RDW Coefficient of Variation 13.8 % 13.8 % Immature Granulocyte % (Auto) 1.0 % 1.2 % Immature Granulocyte # (Auto) 0.05 K/uL 0.12 K/uL Nucleated RBC Absolute Count (auto) 0.06 K/uL Nucleated Red Blood Cells % 1.1 % Prothrombin Time 10.7 SECONDS Prothromb Time International Ratio 1.0 Sodium Level 132 mmol/L 132 mmol/L Potassium Level 4.1 mmol/L 3.7 mmol/L Chloride Level 100 mmol/L 104 mmol/L Carbon Dioxide Level 20 mmol/L 22 mmol/L Anion Gap 11.0 mmol/L 6.0 mmol/L Blood Urea Nitrogen 26 mg/dl 23 mg/dl Creatinine 1.35 mg/dl 0.91 mg/dl Est Creatinine Clear Calc Drug Dose 57.1 ml/min 85.1 ml/min Estimated GFR () 60.4 97.2 Estimated GFR (Non- 52.1 83.9 BUN/Creatinine Ratio 19.1 25.6 Random Glucose 155 mg/dl 114 mg/dl Lactic Acid Level 3.2 mmol/L 1.3 mmol/L Calcium Level 8.0 mg/dl 8.0 mg/dl Phosphorus Level 2.9 mg/dl 2.4 mg/dl Magnesium Level 2.0 mg/dl 2.2 mg/dl Total Bilirubin 0.7 mg/dl Direct Bilirubin 0.2 mg/dl Aspartate Amino Transf (AST/SGOT) 20 U/L Alanine Aminotransferase (ALT/SGPT) 18 U/L Alkaline Phosphatase 67 U/L Total Creatine Kinase 103 U/L 308 U/L Creatine Kinase MB 2.3 ng/ml Creatine Kinase MB Ratio 2.2 Troponin I 0.101 ng/ml 0.398 ng/ml Total Protein 6.4 gm/dl Albumin 2.4 gm/dl Prostate Specific Antigen 5.580 ng/ml Procalcitonin 4.38 ng/ml 8.28 ng/ml (Hallie Geller CRNP) Test 05/04/17 15:16 05/04/17 16:07 05/04/17 17:16 05/04/17 21:33 Globulin 4.2 Albumin/Globulin Ratio 0.8 PTT 36.4 Partial Thromboplastin Ratio 1.4 Urine Color DK YELLOW Urine Appearance CLEAR Urine pH 5.0 Urine Specific [place] 1.022 Urine Protein 1+ Urine Glucose (UA) NEG Urine Ketones NEG Urine Occult Blood 1+ Urine Nitrite NEG Urine Bilirubin NEG Urine Urobilinogen NEG Urine Leukocyte Esterase TRACE Urine WBC (Auto) 5-10 Urine RBC (Auto) 5-10 Urine Hyaline Casts (Auto) 1-5 Urine Epithelial Cells (Auto) 5-10 Urine Bacteria (Auto) NEG Hepatitis C Antibody Screen NEG Test 05/04/17 21:40 05/04/17 21:45 05/04/17 22:41 05/05/17 04:59 POC Glucose 128 Influenza Type A (RT-PCR) Neg for Influ A Influenza Type B (RT-PCR) Neg for Influ B Random Cortisol 15.33 Prostate Specific Antigen 6.200 Test 05/05/17 11:00 05/06/17 05:20 05/06/17 22:10 05/07/17 05:57 POC Glucose 133 Prothrombin Time 11.2 10.7 Prothrombin Time INR 1.1 1.0 Total Bilirubin 0.5 0.7 Direct Bilirubin 0.1 0.2 Aspartate Amino Transferase (AST) 12 20 Alanine Aminotransferase (ALT) 18 18 Alkaline Phosphatase 39 67 Total Protein 6.3 6.4 Albumin 2.4 2.4 White Blood Count 5.16 9.89 Red Blood Count 3.91 3.80 Hemoglobin 11.9 11.3 Hematocrit 35.3 34.1 Mean Corpuscular Volume 90.3 89.7 Mean Corpuscular Hemoglobin 30.4 29.7 Mean Corpuscular Hemoglobin Concent 33.7 33.1 Platelet Count 167 178 Mean Platelet Volume 10.6 10.6 Neutrophils (%) (Auto) 79.8 78.4 Lymphocytes (%) (Auto) 12.0 10.4 Monocytes (%) (Auto) 5.2 9.0 Eosinophils (%) (Auto) 1.4 0.8 Basophils (%) (Auto) 0.6 0.2 Neutrophils # (Auto) 4.12 7.75 Lymphocytes # (Auto) 0.62 1.03 Monocytes # (Auto) 0.27 0.89 Eosinophils # (Auto) 0.07 0.08 Basophils # (Auto) 0.03 0.02 RDW Standard Deviation 45.4 45.0 RDW Coefficient of Variation 13.8 13.8 Immature Granulocyte % (Auto) 1.0 1.2 Immature Granulocyte # (Auto) 0.05 0.12 Nucleated RBC Absolute Count (auto) 0.06 Nucleated Red Blood Cells % 1.1 Sodium Level 132 132 Potassium Level 4.1 3.7 Chloride Level 100 104 Carbon Dioxide Level 20 22 Anion Gap 11.0 6.0 Blood Urea Nitrogen 26 23 Creatinine 1.35 0.91 Est Creatinine Clear Calc Drug Dose 57.1 85.1 Estimated GFR () 60.4 97.2 Estimated GFR (Non- 52.1 83.9 BUN/Creatinine Ratio 19.1 25.6 Random Glucose 155 114 Lactic Acid Level 3.2 1.3 Calcium Level 8.0 8.0 Phosphorus Level 2.9 2.4 Magnesium Level 2.0 2.2 Total Creatine Kinase 103 308 Creatine Kinase MB 2.3 Creatine Kinase MB Ratio 2.2 Troponin I 0.101 0.398 Prostate Specific Antigen 5.580 Procalcitonin 4.38 Test 05/07/17 05:58 Procalcitonin 8.28 (Nav Vang M.D.) Assessment and Plan Ray catheter removed, and attempted ray placement with cysto at bedside unsuccessful by Dr. Perales this morning. See separate procedure note for details. Pt found to have scar tissue at the bladder neck. Will need to go to the OR later today with Dr. Vang for visual urethrotomy. Risks and procedures of the procedure discussed with the pt. All questions answered. Pt agrees to the procedure at this time. Continued [facility] stay due to: ambulation difficulties, multiple IV medications needed Discharge planning: uncertain (Hallie Geller CRNP) Will go to OR [facility] for bladder neck incision and catheter placement Continued [facility] stay due to: inadequate oral pain control, voiding difficulties , multiple IV medications needed (Nav Vang M.D.)
[2017-05-07] MEDS ORDERED: MoRPHine SULFATE 4 MG/ML 1 ML CARP\\VIAL IV ONE (11:15)
--- NOTE | 2017-05-07 12:38 | Procedure Note ---
Procedure Note Date of Service May 07, 2017. Procedure Note See Urology LEGAL COLLECTOR note regarding the remainder of visit today. Procedure as noted below. Kingston catheter noted to be inflated in the proximal spongiosum on CT scan imaging with some retained urine within the bladder, no evidence of significant clot presence. Seen return of irrigant with CBI the tip is felt to be likely within the bladder neck. Findings reviewed with the patient. I offered a trial of void versus Kingston catheter replacement at bedside today. He opts for the latter seen his voiding difficulties of late. Catheter deflated and removed and attempts at passing a 16 and 18 Indian coude catheter met with rubbery resistance at the level of the bladder neck. Verbal consent obtained and bedside cystoscopy performed. 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 This is likely postop after his GreenLight prostate vaporization in July of 2016. This was cannulated with 1st a sensor tip wire and then afterwards with an Amplatz superstiff wire. Patient was dilated using curved Amplatz dilators up to a 16 Indian caliber but the 18 and 20 Indian dilators were felt to buckle at the level of the stricture. Attempts at passing 18 through 12 [place] catheters was unsuccessful at reaching the bladder. Repeat cystoscopy was performed several times to ensure the wires remained in the correct location. Unfortunately, the rubbery nature of the stricture precluded passage of the catheter in the end. Seen the circumferential in nature of the bladder neck contracture incision was felt to be the next course of action. To alleviate the patient's bladder distention the 14 Indian dilator was left in place with the sensor tip wire in its lumen per Dr. Vang request to allow for identification of the correct path in the operating room. Patient focal eyes good understanding of the treatment plan.
--- NOTE | 2017-05-07 13:10 | Cardiology Consultation ---
Cardiology Consultation Date of Consultation: May 07, 2017. Requesting Physician: Kim Reason for Consultation: elevated troponin Pt evaluation today including: conversation w/ patient, conversation w/ family , physical exam, chart review, lab review, review of studies, conversation w/ risk management consultant, review of inpatient medication list, conversation w/ attending History of Present Illness The patient is a 72-year-old gentleman with an extensive history of cardiac disease who was initially admitted to [facility] on the 04 of May. Patient reported feeling unwell for a few days leading up to the admission. He had increasing fatigue and subjective fevers. Immediately prior to admission he became acutely weak and fell resulting in a minor head injury. At the time of his presentation is felt to have an acute infection and likely an element of sepsis. He was reported to have a small intracranial hemorrhage on head CT scan resulting from his fall. Patient was initially volume resuscitated and eventually was felt to have a bladder infection possibly involving his prostate. On 2 occasions during this admission the patient reports the acute onset of rigors. One episode was accompanied by significant shortness of breath. This appeared to occur several hours after manipulation of his urinary catheter. Patient states that his breathing improved over the course of the evening and at this point he is quite comfortable. He has not had symptoms of chest discomfort or arm discomfort at any time during his hospitalization. He continues to describe some dizziness and significant weakness in his lower extremities to the point where he is not able to ambulate. At baseline the patient has mild dyspnea with activity. He does not use supplemental oxygen at home. He has not describe overt orthopnea or paroxysmal nocturnal dyspnea. He monitors his weight closely and takes extra diuretic if his weight increases. He has not had symptoms of chest pain. He has not had any symptoms of palpitations recently. He has not described any therapies from his device. Past Medical/Surgical History Coronary disease status post remote myocardial infarction Ischemic cardiomyopathy Congestive heart failure COPD Valvular heart disease History of DVT and pulmonary embolus Depression Diverticulosis Hyperlipidemia Gastroesophageal reflux Obstructive sleep apnea Prostatism Nephrolithiasis History of transient ischemic attack Past surgical history Cholecystectomy Inguinal hernia repair Vasectomy Bilateral foot surgery History of eye surgery Family History Patient reports no known family medical history. Noncontributory given his advanced age Social History Smoking Status: Former Smoker History of Alcohol Use: No Currently lives independently with his Review of Systems Respiratory: No shortness of breath Cardiac: No chest pain Per HPI. Currently with some spasm at the site of his urinary catheter. All Other Systems: Reviewed and Negative Allergies Coded Allergies: BEE STING (Verified Allergy, Unknown, SWELLING, SOB, 10/01/16) Lidocaine (Verified Allergy, Unknown, RASH, 10/01/16) Penicillins (Verified Allergy, Unknown, SWELLING, DIFFICULTY BREATHING, 10/01/16) SWELLING Hydrocodone (Verified Adverse Reaction, Mild, nausea, 10/01/16) Oxycodone (Verified Adverse Reaction, Mild, nausea, 10/01/16) Medications Current Inpatient Medications Medications (Trade) Dose Ordered Sig/Charly Route Start Time Stop Time Status Last Admin Dose Admin Albuterol (Ventolin Hfa Inhaler) 2 puffs Q6H INH 05/04/17 22:00 06/03/17 21:59 05/06/17 22:14 2 PUFFS Artificial Tears (Lacri-Lube Oph Oint) 1 appln QAM OPB 05/05/17 09:00 06/04/17 08:59 05/07/17 08:13 1 APPLN Bupropion HCl (Wellbutrin Tab) 100 mg BID17 PO 05/04/17 21:00 06/03/17 20:59 05/07/17 08:12 100 MG Carvedilol (Coreg Tab) 12.5 mg QPM PO 05/04/17 21:00 06/03/17 20:59 05/06/17 19:59 12.5 MG Carvedilol (Coreg Tab) 25 mg QAM PO 05/05/17 09:00 06/04/17 08:59 05/06/17 07:36 25 MG Finasteride (Proscar Tab) 5 mg QAM PO 05/05/17 09:00 06/04/17 08:59 05/07/17 08:13 5 MG Folic Acid (Folvite Tab) 1 mg QAM PO 05/05/17 09:00 06/04/17 08:59 05/07/17 08:13 1 MG Metoclopramide HCl (Reglan Tab) 5 mg Q8 PO 05/04/17 22:00 06/03/17 21:59 05/07/17 05:43 5 MG Pantoprazole Sodium (Protonix Tab) 40 mg DAILY PO 05/05/17 09:00 06/04/17 08:59 05/07/17 08:14 40 MG Senna (Senokot Tab) 8.6 mg HS PO 05/04/17 21:00 06/03/17 20:59 05/06/17 19:57 8.6 MG Simvastatin (Zocor Tab) 40 mg QPM PO 05/04/17 21:00 06/03/17 20:59 05/06/17 19:57 40 MG Tiotropium Mott (Spiriva Handihaler Inhaler) 1 puff DAILY INH 05/05/17 09:00 06/04/17 08:59 05/07/17 08:13 1 PUFF Docusate Sodium (coLACE CAP) 100 mg BID PO 05/04/17 21:00 06/03/17 20:59 05/07/17 08:12 100 MG Oxycodone HCl (Oxycontin Tab) 10 mg Q12 PO 05/04/17 21:00 06/03/17 20:59 05/07/17 08:17 10 MG Acetaminophen (Tylenol Tab) 650 mg Q4H PRN PO 05/04/17 19:30 06/03/17 19:29 05/05/17 15:46 650 MG Lorazepam (Ativan Tab) 0.5 mg Q4H PRN PO 05/04/17 19:30 06/03/17 19:29 Al Hydrox/Mg Hydrox/Simethicone (Maalox Max Susp) 15 ml Q4H PRN PO 05/04/17 19:30 06/03/17 19:29 05/06/17 15:24 15 ML Magnesium Hydroxide (Milk Of Magnesia Susp) 30 ml Q12H PRN PO 05/04/17 19:30 06/03/17 19:29 Ondansetron HCl (Zofran Inj) 4 mg Q6H PRN IV 05/04/17 19:30 06/03/17 19:29 Ranitidine HCl (zANTac TAB) 150 mg BID PO 05/04/17 21:00 06/03/17 20:59 05/07/17 08:12 150 MG Morphine Sulfate (MoRPHine SULFATE INJ) 4 mg Q2H PRN IV 05/04/17 19:30 05/18/17 19:29 05/07/17 11:00 4 MG Aztreonam 2000 mg/ Dextrose 110 ml @ 100 mls/hr Q8H IV 05/04/17 22:00 05/14/17 21:59 05/07/17 05:43 100 MLS/HR Bumetanide (Bumex Tab) 1 mg QAM PO 05/07/17 09:00 06/06/17 08:59 05/07/17 08:12 1 MG Meclizine HCl (Antivert Tab) 12.5 mg Q6H PRN PO 05/06/17 11:45 06/05/17 11:44 05/06/17 14:21 12.5 MG Belladonna/Opium (B & O Adult Supp) 60 mg Q8 PRN [place] 05/06/17 21:00 05/20/17 20:59 Oxybutynin Chloride (Ditropan Tab) 5 mg Q8 PRN PO 05/06/17 21:00 06/05/17 20:59 05/06/17 22:29 5 MG Vancomycin HCl 1250 mg/Sodium Chloride 275 ml @ 125 mls/hr Q12H IV 05/07/17 08:00 05/13/17 19:59 05/07/17 08:16 125 MLS/HR Levofloxacin 750 mg/Prmx 150 ml @ 100 mls/hr Q24H IV 05/06/17 22:00 05/13/17 21:59 05/06/17 22:00 100 MLS/HR Sodium Chloride 1,000 ml @ 50 mls/hr Q20H IV 05/06/17 21:45 06/05/17 21:44 05/06/17 22:13 100 MLS/HR Vancomycin HCl (Consult) 1 ea UD PRN N/A 05/06/17 22:15 06/05/17 22:14 Miscellaneous Information (Nursing Verbal Med Order) 1 ea ONE ONCE N/A 05/07/17 11:00 05/07/17 11:01 UNV Physical Exam Vital Signs Past 12 Hours Date Time Temp Pulse Resp B/P (MAP) Pulse Ox O2 Delivery O2 Flow Rate FiO2 05/07/17 08:00 Nasal Cannula 4.0 05/07/17 05:00 64 100/54 (69) 78 CPAP 2.0 05/07/17 04:00 CPAP 6.0 05/07/17 04:00 36.1 73 95/62 (73) 93 CPAP 3.0 05/07/17 03:00 70 106/62 (77) 96 CPAP 4.0 05/07/17 02:00 37.3 73 98/75 (83) 97 CPAP 5.0 05/07/17 01:00 75 102/68 (79) 97 CPAP 6.0 05/07/17 00:00 38.3 85 102/67 (79) 94 CPAP 6.0 05/06/17 23:59 CPAP 6.0 05/06/17 23:20 97 93 6.0 The patient is alert and oriented. Mood and affect appeared normal. He answered all questions appropriately. HEENT: Pupils are equal and reactive to light and accommodation. Extraocular movements are intact. The sclerae are anicteric. Neuro: Cranial nerves intact Neck: Patient's neck is supple. He has palpable carotid pulses bilaterally without bruits on auscultation. There is no evidence of jugular venous distention. The thyroid is not enlarged. Lungs: Clear to auscultation bilaterally. He has good air movement without use of accessory muscles. No rales wheezes or rhonchi. Cardiac: Heart demonstrates a regular rate and rhythm. Normal S1 and S2. No murmurs on examination. Pulses: The patient has palpable radial pulses bilaterally that are equal in intensity Extremities: There was no evidence of hypoperfusion. There is no cyanosis or clubbing. There is no edema. Skin: I did not appreciate any rashes on examination today. Data Laboratory Results: Last 24 Hours Test 05/06/17 22:10 05/07/17 05:57 05/07/17 05:58 White Blood Count 5.16 K/uL 9.89 K/uL Red Blood Count 3.91 M/uL 3.80 M/uL Hemoglobin 11.9 g/dL 11.3 g/dL Hematocrit 35.3 % 34.1 % Mean Corpuscular Volume 90.3 fL 89.7 fL Mean Corpuscular Hemoglobin 30.4 pg 29.7 pg Mean Corpuscular Hemoglobin Concent 33.7 g/dl 33.1 g/dl Platelet Count 167 K/uL 178 K/uL Mean Platelet Volume 10.6 fL 10.6 fL Neutrophils (%) (Auto) 79.8 % 78.4 % Lymphocytes (%) (Auto) 12.0 % 10.4 % Monocytes (%) (Auto) 5.2 % 9.0 % Eosinophils (%) (Auto) 1.4 % 0.8 % Basophils (%) (Auto) 0.6 % 0.2 % Neutrophils # (Auto) 4.12 K/uL 7.75 K/uL Lymphocytes # (Auto) 0.62 K/uL 1.03 K/uL Monocytes # (Auto) 0.27 K/uL 0.89 K/uL Eosinophils # (Auto) 0.07 K/uL 0.08 K/uL Basophils # (Auto) 0.03 K/uL 0.02 K/uL RDW Standard Deviation 45.4 fL 45.0 fL RDW Coefficient of Variation 13.8 % 13.8 % Immature Granulocyte % (Auto) 1.0 % 1.2 % Immature Granulocyte # (Auto) 0.05 K/uL 0.12 K/uL Nucleated RBC Absolute Count (auto) 0.06 K/uL Nucleated Red Blood Cells % 1.1 % Prothrombin Time 10.7 SECONDS Prothromb Time International Ratio 1.0 Sodium Level 132 mmol/L 132 mmol/L Potassium Level 4.1 mmol/L 3.7 mmol/L Chloride Level 100 mmol/L 104 mmol/L Carbon Dioxide Level 20 mmol/L 22 mmol/L Anion Gap 11.0 mmol/L 6.0 mmol/L Blood Urea Nitrogen 26 mg/dl 23 mg/dl Creatinine 1.35 mg/dl 0.91 mg/dl Est Creatinine Clear Calc Drug Dose 57.1 ml/min 85.1 ml/min Estimated GFR () 60.4 97.2 Estimated GFR (Non- 52.1 83.9 BUN/Creatinine Ratio 19.1 25.6 Random Glucose 155 mg/dl 114 mg/dl Lactic Acid Level 3.2 mmol/L 1.3 mmol/L Calcium Level 8.0 mg/dl 8.0 mg/dl Phosphorus Level 2.9 mg/dl 2.4 mg/dl Magnesium Level 2.0 mg/dl 2.2 mg/dl Total Bilirubin 0.7 mg/dl Direct Bilirubin 0.2 mg/dl Aspartate Amino Transf (AST/SGOT) 20 U/L Alanine Aminotransferase (ALT/SGPT) 18 U/L Alkaline Phosphatase 67 U/L Total Creatine Kinase 103 U/L 308 U/L Creatine Kinase MB 2.3 ng/ml Creatine Kinase MB Ratio 2.2 Troponin I 0.101 ng/ml 0.398 ng/ml Total Protein 6.4 gm/dl Albumin 2.4 gm/dl Prostate Specific Antigen 5.580 ng/ml Procalcitonin 4.38 ng/ml 8.28 ng/ml Imaging: Chest x-ray demonstrated an element of pulmonary congestion. CT scanning suggested a very small intracranial hemorrhage. EKG: Sinus rhythm with 100% ventricular pacing Telemetry reviewed: No significant arrhythmia Echocardiogram performed today reveals severely reduced LV systolic function. Mild mitral regurgitation. Assessment & Plan 1. Coronary artery disease: Patient does have mild elevation in his cardiac biomarkers. He did not have symptoms of chest discomfort or his index symptoms associated with his myocardial infarction several years ago. I do not think this represents an acute coronary syndrome. Patient has been quite ill and has had transient periods of both hypoxia and hypotension. He undoubtedly has areas of myocardium that are poorly vascularized given his known coronary disease. I think we can monitor the biomarkers, but in the absence of notable symptoms my enthusiasm for invasive evaluation is very limited. There is also the Specter of a recent intracranial hemorrhage which would severely reduce our options for intervention in that setting. I think he should continue on his current medical therapy for coronary artery disease. I think we can follow him clinically for any additional signs or symptoms consistent with ischemia. 2. Congestive heart failure: The patient initially underwent volume administration at the time of admission due to an element of suspected dehydration and hypovolemia. This was likely true given his recovery and symptoms, blood pressure and laboratory studies. However, he may easily have pulmonary vascular congestion with volume administration in this post be done with caution. Recently he has undergone an element of diuresis with re- initiation of his standard outpatient diuretic therapy. I do not think the eyes and nose are helpful in tracking his overall volume status given the continuous bladder irrigation. His weight is also unlikely to be helpful. X- ray continues to suggest an element of pulmonary vascular congestion but his exam is fairly benign. I think continuing on his daily dose of Bumex is reasonable. I would avoid significant additional volume administration at this point. 3. Ischemic cardiomyopathy: Patient does appear to have slightly reduced LV systolic function compared to an echocardiogram performed in August of 2016. This is most likely related to his acute illness. I do not believe that his slight elevation in cardiac biomarkers is responsible for the changes seen on echocardiography. Hopefully as his clinical condition improves and the infection resolves he will return to his prior level of LV function. He should be continued on his dose of beta-clotilde and POP-inhibitor.
[2017-05-07] MEDS ORDERED: DEXAMETHASONE SOD INJ 4 MG/ML VIAL ONE (15:01)
[2017-05-07] MEDS ORDERED: PROPOFOL IV EMULSION 10 MG/ML 20 ML VIAL IV ONE (15:01)
[2017-05-07] MEDS ORDERED: GLYCOPYRROLATE INJ 0.2 MG/ML VIAL ONE (15:01)
[2017-05-07] MEDS ORDERED: ONDANSETRON INJ 2 MG/ML 2 ML VIAL ONE (15:01)
[2017-05-07] MEDS ORDERED: LIDOCAINE HCL 2% 2 ML VIAL (20MG/ML) ONE (15:01)
[2017-05-07] MEDS ORDERED: PHENYLEPHRINE HCL INJ 10 MG/ML VIAL ONE (15:01)
[2017-05-07] MEDS ORDERED: FENTANYL CITRATE INJ 50 MCG/1 ML 2 ML VIAL ONE ×2 (15:01)
[2017-05-07] MEDS ORDERED: NEOSTIGMINE METHYLSULFATE 5 MG/5 ML SYR ONE (15:01)
[2017-05-07] MEDS ORDERED: SUCCINYLCHOLINE CHLORIDE 20 MG/ML 10 ML VIAL IV ONE (15:01)
[2017-05-07] MEDS ORDERED: EpHEDrine SULFATE INJ 50 MG/ML AMP ONE (15:01)
[2017-05-07] MEDS ORDERED: CONRAY 30% 150ML BOTTLE ONE (15:22)
[2017-05-07] MEDS ORDERED: KETAMINE HCL INJ 50 MG/ML 10 ML VIAL ONE (15:50)
[2017-05-07] MEDS ORDERED: ONDANSETRON INJ 2 MG/ML 2 ML VIAL IV PRN (16:00)
[2017-05-07] MEDS ORDERED: ATROPINE SULFATE 0.1 MG/ML 5ML SYR IV PRN (16:00)
[2017-05-07] MEDS ORDERED: FENTANYL CITRATE INJ 50 MCG/1 ML 2 ML VIAL IV PRN (16:00)
[2017-05-07] MEDS ORDERED: EpHEDrine SULFATE INJ 50 MG/ML AMP IV PRN (16:00)
--- NOTE | 2017-05-07 16:39 | Critical Care Progress Note ---
Critical Care Progress Note Date of Service May 07, 2017. Attending Dr. Otero Subjective Patient was brought back to [facility] last night for rigors, tachycardia impending sepsis after having the Kingston replaced for hematuria. He improved overnight. This AM, a Kingston change was attempted because the balloon was in the urethra, but was unsuccessful t bedside, requiring to go to the OR. Currently in the OR Objective General: Elderly male, NAD Heent: NC/AT Lungs: Mostly clear, few bibasilar crackles CVS: S1S2 regular Abd: Soft, obese, non-tender Ext: trace pedal edema ALLIED HEALTH INSTRUCTOR: no focal deficit Assessment & Plan (1) Sepsis due to urinary tract infection (2) Prostatitis (3) Gastrointestinal infection (4) Sepsis (5) Fall (6) Coagulopathy (7) ICH (intracerebral hemorrhage) (8) balance problem 72 year old male on full anticoagulation for recurrent DVT/PE, CAD, CHF, ROSE, diverticulosis presents with severe sepsis secondary to UTI/prostatitis and small traumatic ICH Plan: Continue broad spectrum Abx. May discontinue Vanco though, growing E Coli in the urine in the outpatient urine culture To OR for Kingston insertion, repair of stricture Anticoagulation to be held. The last CT brain showed that the bleeding has not grown in size. Mild troponin elevation, not consistent with ACS. No need for further workup for the time being Avoid overloading the patient with fluid given CHF and congested xray appearance Continue CPAP therapy DVT prophylaxis: SCDs Critical care time spent with the patient, , reviewing the chart, discussing with consultants, greater than 35 minutes Consults & Procedures Consultants: Dr. Perales - Urology Dr. Whitley - Attending Hospitalist Procedures: Irrigation Kingston Catheter placed - Dr. Perales Data Medications: Current Inpatient Medications Medications (Trade) Dose Ordered Sig/Charly Route Start Time Stop Time Status Last Admin Dose Admin Albuterol (Ventolin Hfa Inhaler) 2 puffs Q6H INH 05/04/17 22:00 06/03/17 21:59 05/06/17 22:14 2 PUFFS Artificial Tears (Lacri-Lube Oph Oint) 1 appln QAM OPB 05/05/17 09:00 06/04/17 08:59 05/07/17 08:13 1 APPLN Bupropion HCl (Wellbutrin Tab) 100 mg BID17 PO 05/04/17 21:00 06/03/17 20:59 05/07/17 08:12 100 MG Carvedilol (Coreg Tab) 12.5 mg QPM PO 05/04/17 21:00 06/03/17 20:59 05/06/17 19:59 12.5 MG Carvedilol (Coreg Tab) 25 mg QAM PO 05/05/17 09:00 06/04/17 08:59 05/06/17 07:36 25 MG Finasteride (Proscar Tab) 5 mg QAM PO 05/05/17 09:00 06/04/17 08:59 05/07/17 08:13 5 MG Folic Acid (Folvite Tab) 1 mg QAM PO 05/05/17 09:00 06/04/17 08:59 05/07/17 08:13 1 MG Metoclopramide HCl (Reglan Tab) 5 mg Q8 PO 05/04/17 22:00 06/03/17 21:59 05/07/17 05:43 5 MG Pantoprazole Sodium (Protonix Tab) 40 mg DAILY PO 05/05/17 09:00 06/04/17 08:59 05/07/17 08:14 40 MG Senna (Senokot Tab) 8.6 mg HS PO 05/04/17 21:00 06/03/17 20:59 05/06/17 19:57 8.6 MG Simvastatin (Zocor Tab) 40 mg QPM PO 05/04/17 21:00 06/03/17 20:59 05/06/17 19:57 40 MG Tiotropium Warren (Spiriva Handihaler Inhaler) 1 puff DAILY INH 05/05/17 09:00 06/04/17 08:59 05/07/17 08:13 1 PUFF Docusate Sodium (coLACE CAP) 100 mg BID PO 05/04/17 21:00 06/03/17 20:59 05/07/17 08:12 100 MG Oxycodone HCl (Oxycontin Tab) 10 mg Q12 PO 05/04/17 21:00 06/03/17 20:59 05/07/17 08:17 10 MG Acetaminophen (Tylenol Tab) 650 mg Q4H PRN PO 05/04/17 19:30 06/03/17 19:29 05/05/17 15:46 650 MG Lorazepam (Ativan Tab) 0.5 mg Q4H PRN PO 05/04/17 19:30 06/03/17 19:29 Al Hydrox/Mg Hydrox/Simethicone (Maalox Max Susp) 15 ml Q4H PRN PO 05/04/17 19:30 06/03/17 19:29 05/06/17 15:24 15 ML Magnesium Hydroxide (Milk Of Magnesia Susp) 30 ml Q12H PRN PO 05/04/17 19:30 06/03/17 19:29 Ondansetron HCl (Zofran Inj) 4 mg Q6H PRN IV 05/04/17 19:30 06/03/17 19:29 Ranitidine HCl (zANTac TAB) 150 mg BID PO 05/04/17 21:00 06/03/17 20:59 05/07/17 08:12 150 MG Morphine Sulfate (MoRPHine SULFATE INJ) 4 mg Q2H PRN IV 05/04/17 19:30 05/18/17 19:29 05/07/17 11:00 4 MG Aztreonam 2000 mg/ Dextrose 110 ml @ 100 mls/hr Q8H IV 05/04/17 22:00 05/14/17 21:59 05/07/17 14:17 100 MLS/HR Bumetanide (Bumex Tab) 1 mg QAM PO 05/07/17 09:00 06/06/17 08:59 05/07/17 08:12 1 MG Meclizine HCl (Antivert Tab) 12.5 mg Q6H PRN PO 05/06/17 11:45 06/05/17 11:44 05/06/17 14:21 12.5 MG Belladonna/Opium (B & O Adult Supp) 60 mg Q8 PRN [place] 05/06/17 21:00 05/20/17 20:59 Oxybutynin Chloride (Ditropan Tab) 5 mg Q8 PRN PO 05/06/17 21:00 06/05/17 20:59 05/06/17 22:29 5 MG Vancomycin HCl 1250 mg/Sodium Chloride 275 ml @ 125 mls/hr Q12H IV 05/07/17 08:00 05/13/17 19:59 05/07/17 08:16 125 MLS/HR Levofloxacin 750 mg/Prmx 150 ml @ 100 mls/hr Q24H IV 05/06/17 22:00 05/13/17 21:59 05/06/17 22:00 100 MLS/HR Sodium Chloride 1,000 ml @ 50 mls/hr Q20H IV 05/06/17 21:45 06/05/17 21:44 05/06/17 22:13 100 MLS/HR Vancomycin HCl (Consult) 1 ea UD PRN N/A 05/06/17 22:15 06/05/17 22:14 Fentanyl Citrate (Fentanyl Inj) 25 mcg Q5M PRN IV 05/07/17 16:00 05/08/17 15:59 UNV Ondansetron HCl (Zofran Inj) 4 mg ONE PRN IV 05/07/17 16:00 UNV Ephedrine Sulfate (EpHEDrine SULFATE INJ) 5 mg Q5M PRN IV 05/07/17 16:00 05/08/17 15:59 UNV Atropine Sulfate (Atropine Sulfate 0.1mg/ml Inj) 0.5 mg Q1M PRN IV 05/07/17 16:00 05/08/17 15:59 UNV I & O: 24-Hour Column 05/08/17 07:59 Intake Total 880 ml Balance 880 ml Vital Signs: Date Time Temp Pulse Resp B/P (MAP) Pulse Ox O2 Delivery O2 Flow Rate FiO2 05/07/17 14:00 80 120/78 (92) 95 Nasal Cannula 4.0 05/07/17 12:00 36.5 78 120/76 (91) 87 Nasal Cannula 4.0 05/07/17 12:00 Nasal Cannula 4.0 05/07/17 10:15 93 122/87 (99) 90 Nasal Cannula 4.0 05/07/17 10:00 101 24 174/108 (130) 89 Nasal Cannula 4.0 05/07/17 08:00 36.6 86 126/80 (95) 94 Nasal Cannula 4.0 05/07/17 08:00 Nasal Cannula 4.0 05/07/17 05:00 64 100/54 (69) 78 CPAP 2.0 05/07/17 04:00 CPAP 6.0 05/07/17 04:00 36.1 73 95/62 (73) 93 CPAP 3.0 05/07/17 03:00 70 106/62 (77) 96 CPAP 4.0 05/07/17 02:00 37.3 73 98/75 (83) 97 CPAP 5.0 05/07/17 01:00 75 102/68 (79) 97 CPAP 6.0 05/07/17 00:00 38.3 85 102/67 (79) 94 CPAP 6.0 05/06/17 23:59 CPAP 6.0 05/06/17 23:20 97 93 6.0 05/06/17 22:16 38.1 106 20 132/73 (92) 92 Oxymask 15.0 05/06/17 21:40 37.0 114 26 151/101 (118) 95 Oxymask 15.0 05/06/17 20:00 36.9 79 13 112/67 (82) 93 Nasal Cannula 4.0 05/06/17 20:00 Nasal Cannula 4.0 Laboratory Results: Last 24 Hours Test 05/06/17 22:10 05/07/17 05:57 05/07/17 05:58 White Blood Count 5.16 K/uL 9.89 K/uL Red Blood Count 3.91 M/uL 3.80 M/uL Hemoglobin 11.9 g/dL 11.3 g/dL Hematocrit 35.3 % 34.1 % Mean Corpuscular Volume 90.3 fL 89.7 fL Mean Corpuscular Hemoglobin 30.4 pg 29.7 pg Mean Corpuscular Hemoglobin Concent 33.7 g/dl 33.1 g/dl Platelet Count 167 K/uL 178 K/uL Mean Platelet Volume 10.6 fL 10.6 fL Neutrophils (%) (Auto) 79.8 % 78.4 % Lymphocytes (%) (Auto) 12.0 % 10.4 % Monocytes (%) (Auto) 5.2 % 9.0 % Eosinophils (%) (Auto) 1.4 % 0.8 % Basophils (%) (Auto) 0.6 % 0.2 % Neutrophils # (Auto) 4.12 K/uL 7.75 K/uL Lymphocytes # (Auto) 0.62 K/uL 1.03 K/uL Monocytes # (Auto) 0.27 K/uL 0.89 K/uL Eosinophils # (Auto) 0.07 K/uL 0.08 K/uL Basophils # (Auto) 0.03 K/uL 0.02 K/uL RDW Standard Deviation 45.4 fL 45.0 fL RDW Coefficient of Variation 13.8 % 13.8 % Immature Granulocyte % (Auto) 1.0 % 1.2 % Immature Granulocyte # (Auto) 0.05 K/uL 0.12 K/uL Nucleated RBC Absolute Count (auto) 0.06 K/uL Nucleated Red Blood Cells % 1.1 % Prothrombin Time 10.7 SECONDS Prothromb Time International Ratio 1.0 Sodium Level 132 mmol/L 132 mmol/L Potassium Level 4.1 mmol/L 3.7 mmol/L Chloride Level 100 mmol/L 104 mmol/L Carbon Dioxide Level 20 mmol/L 22 mmol/L Anion Gap 11.0 mmol/L 6.0 mmol/L Blood Urea Nitrogen 26 mg/dl 23 mg/dl Creatinine 1.35 mg/dl 0.91 mg/dl Est Creatinine Clear Calc Drug Dose 57.1 ml/min 85.1 ml/min Estimated GFR () 60.4 97.2 Estimated GFR (Non- 52.1 83.9 BUN/Creatinine Ratio 19.1 25.6 Random Glucose 155 mg/dl 114 mg/dl Lactic Acid Level 3.2 mmol/L 1.3 mmol/L Calcium Level 8.0 mg/dl 8.0 mg/dl Phosphorus Level 2.9 mg/dl 2.4 mg/dl Magnesium Level 2.0 mg/dl 2.2 mg/dl Total Bilirubin 0.7 mg/dl Direct Bilirubin 0.2 mg/dl Aspartate Amino Transf (AST/SGOT) 20 U/L Alanine Aminotransferase (ALT/SGPT) 18 U/L Alkaline Phosphatase 67 U/L Total Creatine Kinase 103 U/L 308 U/L Creatine Kinase MB 2.3 ng/ml Creatine Kinase MB Ratio 2.2 Troponin I 0.101 ng/ml 0.398 ng/ml Total Protein 6.4 gm/dl Albumin 2.4 gm/dl Prostate Specific Antigen 5.580 ng/ml Procalcitonin 4.38 ng/ml 8.28 ng/ml Problem Qualifiers (1) Prostatitis: Prostatitis type: acute Qualified Codes: N41.0 - Acute prostatitis (2) Sepsis: Sepsis type: sepsis due to unspecified organism Qualified Codes: A41.9 - Sepsis, unspecified organism (3) Fall: Encounter type: initial encounter Qualified Codes: W19.XXXA - Unspecified fall, initial encounter (4) ICH (intracerebral hemorrhage): Intracerebral hemorrhage etiology: traumatic
--- NOTE | 2017-05-07 16:44 | [facility] Post Operative Brief Note ---
Immediate Operative Summary Operative Date May 07, 2017. Pre-Operative Diagnosis bladder neck contracture Post-Operative Diagnosis same Procedure(s) Performed cystscopy, incision of bladder neck contracture and placement of ray catheter. Surgeon Dr. Carole Vang Pattern Cutter Surgeon(s) none Estimated Blood Loss 5ml Findings bladder neck contracture trigone edematous making identifying the ureteral orifice imossible no obvious bladder perforation Specimens no specimen per surgeon Drains 22 ray Anesthesia sedatrion Disposition Surgical ICU
[2017-05-07] MEDS: SODIUM CHLORIDE 0.9% 1000ML 1,000 ML IV SCH (17:35)
--- NOTE | 2017-05-07 17:53 | OPERATIVE REPORT ---
DATE OF OPERATION: 05/07/2017 PROCEDURE PERFORMED: Cystotransurethral incision of bladder neck contracture. PREOPERATIVE DIAGNOSIS: Bladder neck contracture. POSTOPERATIVE DIAGNOSIS: Same. SURGEON: Dr. Vang. ANESTHESIA: Sedation. INDICATIONS: The patient is a 72-year-old male status post TURP, earlier last year who had decreasing stream who presented with fever and had a long history of slowing stream. Attempts were made to pass a [place] catheter, but it appears that they must have been placed in the prostatic fossa. Dr. Perales attempted to place a catheter, both last night and this morning without success, but he was able to drain the bladder this morning with a cystoscope by placing a wire in the bladder to the bladder neck and dilating him over this with followers and he left [address] to drain the patient until this afternoon. The patient was taken to the operating room, this was removed, cystoscopy was performed and pictures were taken of this very dense bladder neck contracture. A dual flex guidewire was passed through this. Using the bipolar Damon knife at 4 and 8 o'clock, incision was made from outside the bladder from the bladder neck into the bladder opening, this dense scar wide enough to pass the resectoscope into the bladder. Once resectoscope was in the bladder, I irrigated, I did not see any obvious trauma or holes in the bladder. There was a quite a bit of edema at the bladder neck and the ureteral orifices were difficult to identify. I left the guidewire in place, passed a [address] [place] [employer] tip catheter over this wire and it appeared to be in place and inflated the balloon with 50 mL and pulled back to the bladder neck, irrigated it easily and the patient was transferred back to the ICU in stable condition. Whole procedure was performed with sedation. The patient again had minimal bleeding. Pictures were taken of the bladder neck and at the inside the bladder, it was of a somewhat cloudy just because a slight amount of blood that was there, but there was no significant bleeding throughout the entire procedure. The patient tolerated the procedure well. I attest to the content of the Intraoperative Record and any orders documented therein. Any exception s are noted below.
--- NOTE | 2017-05-07 17:59 | Progress Note ---
Subjective Date of Service: May 07, 2017. Subjective Pt evaluation today including: conversation w/ patient, conversation w/ family ( at bedside), physical exam, chart review, lab review, review of studies ( CT abd/pelvis, KUB x-rays, etc), review of inpatient medication list Pain: bladder/lower abdomen PO Intake: npo for surgery today Voiding: voiding difficulty (multiple attempts at ray catheter overnight; CBI overnight) events of last evening/overnight reviewed was placed on CBI after Dr. Perales placed a ray at bedside this am Dr. Perales re-evaluated the patient cystoscopy was performed at bedside the ray was NOT in the bladder due to an apparent bladder neck obstruction OR planned for today to open this area up he had transient fever/chills last evening following ray insertion and starting of CBI - now resolved surprisingly he denies any dyspnea does c/o abdominal bloating present for about 1 month; taking maalox for such +flatus and had large bowel movement yesterday final urine cx from outpatient clinic at [facility] - 30,000 CFU of e. coli, pansensitive except R to tetracycline Problem List Medical Problems: (1) Abdominal pain, left lower quadrant Status: Acute (2) Anticoagulated on Coumadin Status: Acute (3) balance problem Status: Acute (4) Biliary colic Status: Acute (5) BPH (benign prostatic hypertrophy) Status: Chronic (6) Coagulopathy Status: Acute (7) CVA (cerebral vascular accident) Status: Acute (8) Depression Status: Chronic (9) Dyspnea Status: Acute (10) Emphysema Status: Chronic (11) Fall Status: Acute (12) Gastrointestinal infection Status: Acute (13) ICH (intracerebral hemorrhage) Status: Acute (14) Intracranial bleed Status: Acute (15) Intractable pain Status: Acute (16) Left arm cellulitis Status: Acute (17) Lightheaded Status: Acute (18) Macular degeneration Status: Chronic (19) NSTEMI (non-ST elevated myocardial infarction) Status: Acute (20) Peripheral neuropathy Status: Chronic (21) Prostatitis Status: Acute (22) Sepsis Status: Acute (23) Sepsis due to urinary tract infection Status: Acute (24) Septic olecranon bursitis of left elbow Status: Acute (25) Sleep apnea Status: Chronic (26) UTI (urinary tract infection) Status: Acute Surgical Problems: (1) AICD (automatic cardioverter/defibrillator) present Status: Chronic Review of Systems Constitutional: No fever, No chills Respiratory: No cough, No dyspnea at rest Cardiac: No chest pain, No orthopnea Abdomen: + see HPI, + pain, No nausea, No vomiting Objective Vital Signs Date Time Temp Pulse Resp B/P (MAP) Pulse Ox O2 Delivery O2 Flow Rate FiO2 05/07/17 17:01 36.6 76 18 107/70 (80) 94 Nasal Cannula 4 05/07/17 16:55 73 18 109/70 (81) 95 Oxymask 4 05/07/17 16:50 36.7 78 20 115/71 (80) 97 Oxymask 4 05/07/17 16:45 36.7 77 21 116/74 (79) 97 Oxymask 4 05/07/17 16:40 36.7 80 20 112/77 (82) 97 Oxymask 4 05/07/17 16:30 36.7 81 18 116/79 (92) 97 Oxymask 4 05/07/17 14:00 80 120/78 (92) 95 Nasal Cannula 4.0 05/07/17 12:00 36.5 78 120/76 (91) 87 Nasal Cannula 4.0 05/07/17 12:00 Nasal Cannula 4.0 05/07/17 10:15 93 122/87 (99) 90 Nasal Cannula 4.0 05/07/17 10:00 101 24 174/108 (130) 89 Nasal Cannula 4.0 05/07/17 08:00 36.6 86 126/80 (95) 94 Nasal Cannula 4.0 05/07/17 08:00 Nasal Cannula 4.0 05/07/17 05:00 64 100/54 (69) 78 CPAP 2.0 05/07/17 04:00 CPAP 6.0 05/07/17 04:00 36.1 73 95/62 (73) 93 CPAP 3.0 05/07/17 03:00 70 106/62 (77) 96 CPAP 4.0 05/07/17 02:00 37.3 73 98/75 (83) 97 CPAP 5.0 05/07/17 01:00 75 102/68 (79) 97 CPAP 6.0 05/07/17 00:00 38.3 85 102/67 (79) 94 CPAP 6.0 05/06/17 23:59 CPAP 6.0 05/06/17 23:20 97 93 6.0 05/06/17 22:16 38.1 106 20 132/73 (92) 92 Oxymask 15.0 05/06/17 21:40 37.0 114 26 151/101 (118) 95 Oxymask 15.0 05/06/17 20:00 36.9 79 13 112/67 (82) 93 Nasal Cannula 4.0 05/06/17 20:00 Nasal Cannula 4.0 Physical Exam General Appearance: no apparent distress ENT: pharynx normal Neck: no JVD Respiratory/Chest: no respiratory distress, no accessory muscle use, + decreased breath sounds (bases) Cardiovascular: regular rate, rhythm, no gallop, no murmur Abdomen: normal bowel sounds, non tender, no organomegaly, + distended (and tympanic to percussion) Extremities: no pedal edema Neurologic/Psychiatric: alert, oriented x 3 Laboratory Results Last 24 Hours Test 05/06/17 22:10 05/07/17 05:57 05/07/17 05:58 05/07/17 17:30 White Blood Count 5.16 K/uL 9.89 K/uL Red Blood Count 3.91 M/uL 3.80 M/uL Hemoglobin 11.9 g/dL 11.3 g/dL Hematocrit 35.3 % 34.1 % Mean Corpuscular Volume 90.3 fL 89.7 fL Mean Corpuscular Hemoglobin 30.4 pg 29.7 pg Mean Corpuscular Hemoglobin Concent 33.7 g/dl 33.1 g/dl Platelet Count 167 K/uL 178 K/uL Mean Platelet Volume 10.6 fL 10.6 fL Neutrophils (%) (Auto) 79.8 % 78.4 % Lymphocytes (%) (Auto) 12.0 % 10.4 % Monocytes (%) (Auto) 5.2 % 9.0 % Eosinophils (%) (Auto) 1.4 % 0.8 % Basophils (%) (Auto) 0.6 % 0.2 % Neutrophils # (Auto) 4.12 K/uL 7.75 K/uL Lymphocytes # (Auto) 0.62 K/uL 1.03 K/uL Monocytes # (Auto) 0.27 K/uL 0.89 K/uL Eosinophils # (Auto) 0.07 K/uL 0.08 K/uL Basophils # (Auto) 0.03 K/uL 0.02 K/uL RDW Standard Deviation 45.4 fL 45.0 fL RDW Coefficient of Variation 13.8 % 13.8 % Immature Granulocyte % (Auto) 1.0 % 1.2 % Immature Granulocyte # (Auto) 0.05 K/uL 0.12 K/uL Nucleated RBC Absolute Count (auto) 0.06 K/uL Nucleated Red Blood Cells % 1.1 % Prothrombin Time 10.7 SECONDS Prothromb Time International Ratio 1.0 Sodium Level 132 mmol/L 132 mmol/L Potassium Level 4.1 mmol/L 3.7 mmol/L Chloride Level 100 mmol/L 104 mmol/L Carbon Dioxide Level 20 mmol/L 22 mmol/L Anion Gap 11.0 mmol/L 6.0 mmol/L Blood Urea Nitrogen 26 mg/dl 23 mg/dl Creatinine 1.35 mg/dl 0.91 mg/dl Est Creatinine Clear Calc Drug Dose 57.1 ml/min 85.1 ml/min Estimated GFR () 60.4 97.2 Estimated GFR (Non- 52.1 83.9 BUN/Creatinine Ratio 19.1 25.6 Random Glucose 155 mg/dl 114 mg/dl Lactic Acid Level 3.2 mmol/L 1.3 mmol/L Calcium Level 8.0 mg/dl 8.0 mg/dl Phosphorus Level 2.9 mg/dl 2.4 mg/dl Magnesium Level 2.0 mg/dl 2.2 mg/dl Total Bilirubin 0.7 mg/dl Direct Bilirubin 0.2 mg/dl Aspartate Amino Transf (AST/SGOT) 20 U/L Alanine Aminotransferase (ALT/SGPT) 18 U/L Alkaline Phosphatase 67 U/L Total Creatine Kinase 103 U/L 308 U/L Creatine Kinase MB 2.3 ng/ml Creatine Kinase MB Ratio 2.2 Troponin I 0.101 ng/ml 0.398 ng/ml Total Protein 6.4 gm/dl Albumin 2.4 gm/dl Prostate Specific Antigen 5.580 ng/ml Procalcitonin 4.38 ng/ml 8.28 ng/ml Bedside Glucose 105 mg/dl Assessment and Plan 72yo male - 1. trace right-sided SAH - most recent head CT showed resolving SAH. This was from trauma in the setting of a fall w/ head injury. Coumadin has been reversed. Neuro symptoms (vertigo, etc) have resolved. PT, OT when able. 2. vertigo - suspect 2nd to head injury/SAH/concussion - resolved. No evidence clinically or radiographically of stroke. 3. sepsis / severe sepsis due to e. coli UTI / prostatitis - urine cx from sent from [facility] grew 30,000 CFU of e. coli. largely pansensitive (resistant to tetracycline only). I believe the transient fever last pm was likely due to the frequent instrumentations into the urine tract irritating the prostate/bladder and likely causing transient bacterial release/cytokine release. He continues on aztreonam. Blood cx's negative from time of admission. If repeat blood cx's from last night are negative would consider de-escalation of the aztreonam to cipro or a cephalosporin. Clinically he has prostatitis and will likely need up to 4 weeks of antibiotics. 4. acute/chronic systolic/diastolic CHF - agree with gentle diuresis and avoidance of fluids, if possible. Daily weights, I's and O's, etc. 5. CAD with prior h/o NM - no evidence of ACS at this time. Troponin elevation last pm likely myocardial demand ischemia in the setting of his fever, etc. Appreciate cardiology consultation. 6. h/o multiple VTE events (DVT and PE) - noted; resume coumadin when deemed safe from neurological standpoint and standpoint. May need to contact neurosurgery at [facility] [place] [facility] or [facility] for their opinion. If he is deemed not a candidate for anticoagulation then IVC filter? 7. acute kidney injury - resolved, then creatinine trended up yesterday ( likely from obstruction due to urinary tract issues) and then improved again this AM. BMP am. 8. BPH with urinary retention and now bladder neck obstruction - To OR today with Dr. Vang to relieve this obstruction. 9. COPD - not in exacerbation at this time. 10. HTN - cont BB. 11. ROSE - continue home CPAP. 12. h/o v-tach - has AICD in place. 13. hematuria - started yesterday with ultimate formation of clots. Dr. Perales found urethral trauma from the multiple ray catheter attempts. Bladder neck obstruction also found. To OR today - see above. Should resolve following surgery and correct placement of ray. H/H remaining stable at this time despite the hematuria. 14. hyponatremia - 2nd to acute kidney injury. BMP am. 15. mild ileus - likely due to his sepsis. Supportive care. If any feeding intolerance/vomiting then NPO or clear liquids. 16. DVT proph - SCDs; chemical means contraindicated for now. PT, OT appreciated updated at bedside again today cont ICU status Continued [facility] stay due to: fever, abnormal vital signs, inadequate oral pain control, voiding difficulties, ambulation difficulties, multiple IV medications needed Discharge planning: uncertain
--- NOTE | 2017-05-07 18:50 | Anesthesiology Progress Note ---
Anesthesia Post Op Note Date & Time May 07, 2017 at 18:50 Vital Signs Pain Intensity: 1 Vital Signs Past 12 Hours Date Time Temp Pulse Resp B/P (MAP) Pulse Ox O2 Delivery O2 Flow Rate FiO2 05/07/17 18:00 81 21 99/52 (68) 94 Nasal Cannula 4.0 05/07/17 17:01 36.6 76 18 107/70 (80) 94 Nasal Cannula 4 05/07/17 16:55 73 18 109/70 (81) 95 Oxymask 4 05/07/17 16:50 36.7 78 20 115/71 (80) 97 Oxymask 4 05/07/17 16:45 36.7 77 21 116/74 (79) 97 Oxymask 4 05/07/17 16:40 36.7 80 20 112/77 (82) 97 Oxymask 4 05/07/17 16:30 36.7 81 18 116/79 (92) 97 Oxymask 4 05/07/17 14:00 80 120/78 (92) 95 Nasal Cannula 4.0 05/07/17 12:00 36.5 78 120/76 (91) 87 Nasal Cannula 4.0 05/07/17 12:00 Nasal Cannula 4.0 05/07/17 10:15 93 122/87 (99) 90 Nasal Cannula 4.0 05/07/17 10:00 101 24 174/108 (130) 89 Nasal Cannula 4.0 05/07/17 08:00 36.6 86 126/80 (95) 94 Nasal Cannula 4.0 05/07/17 08:00 Nasal Cannula 4.0 Notes Mental Status: alert / awake / arousable, participated in evaluation Pt Amnestic to Procedure: Yes Nausea / Vomiting: adequately controlled Pain: adequately controlled Airway Patency, RR, SpO2: stable & adequate BP & HR: stable & adequate Hydration State: stable & adequate Anesthetic Complications: no major complications apparent
[2017-05-07] MEDS: SENNA 8.6 MG TAB PO SCH (21:02)
[2017-05-07] MEDS: SIMVASTATIN 40 MG TAB PO SCH (21:04)
[2017-05-07] MEDS: CARVEDILOL 12.5 MG TAB PO SCH (21:29)
[2017-05-07] MEDS: LEVOFLOXACIN / D5W 750 MG in PREMIXED IN D5W 150 ML IV SCH (21:30)
[2017-05-08] VITALS (16 sets, daily range): BP systolic 90–131; BP diastolic 55–79; PULSE 66–83; TEMP 36.5–36.9; O2SAT 90–96
[2017-05-08] MEDS: ALBUTEROL HFA 8 GM INHALER INH SCH ×4 (04:00→20:56)
[2017-05-08] MEDS: BELLADONNA/OPIUM SUPP 60 MG SUPP PR PRN ×2 (04:56→23:43)
[2017-05-08 05:32] LABS: BASO % 0.1 %; BASO ABS # 0.01 K/uL (0-0.2); EOS % 2.9 %; EOS ABS # 0.27 K/uL (0-0.5); HEMATOCRIT 30.8 % (42-52); HEMOGLOBIN 10.4 g/dL (14.0-18.0); IG# 0.19 K/uL (0.00-0.02); LYMPH % 12.7 %; LYMPH ABS # 1.18 K/uL (1.2-3.4); MEAN CELL VOLUME 90.3 fL (80-100); MEAN CORPUSCULAR HEMOGLOBIN 30.5 pg (25-34); MEAN CORPUSCULAR HGB CONC 33.8 g/dl (32-36); MEAN PLATELET VOLUME 10.1 fL (7.4-10.4); MONO % 8.6 %; NEUT % 73.7 %; NEUT ABS # 6.85 K/uL (1.4-6.5); PLATELET COUNT 186 K/uL (130-400); RED CELL DISTRIBUTION WIDTH CV 13.9 % (11.5-14.5); RED CELL DISTRIBUTION WIDTH SD 45.8 fL (36.4-46.3)
[2017-05-08 06:01] LABS: CALCIUM 7.6 mg/dl (8.5-10.1); CREATININE 0.79 mg/dl (0.60-1.40); POTASSIUM 3.6 mmol/L (3.5-5.1)
[2017-05-08] MEDS: AZTREONAM IV 2,000 MG in DEXTROSE 5% 100ML 100 ML IV SCH (06:01)
[2017-05-08] MEDS: METOCLOPRAMIDE HCL 5 MG TAB PO SCH ×3 (06:01→20:56)
[2017-05-08] MEDS: OXYBUTYNIN CHLORIDE 5 MG TAB PO PRN (06:02)
[2017-05-08] MEDS ORDERED: VANCOMYCIN TROUGH ONE (07:30)
[2017-05-08] MEDS: TIOTROPIUM BROMIDE 5 PUFF/90 MCG INH INH SCH (09:13)
[2017-05-08] MEDS: CARVEDILOL 25 MG TAB PO SCH (09:14)
[2017-05-08] MEDS: BUMETANIDE 1 MG TAB PO SCH (09:14)
[2017-05-08] MEDS: DOCUSATE SODIUM 100 MG CAP PO SCH ×2 (09:14→20:41)
[2017-05-08] MEDS: ARTIFICIAL TEARS OP OINT 3.5 GM TUBE OPB SCH (09:14)
[2017-05-08] MEDS: FINASTERIDE 5 MG TAB PO SCH (09:15)
[2017-05-08] MEDS: RANITIDINE HCL 150 MG TAB PO SCH ×2 (09:15→20:43)
[2017-05-08] MEDS: PANTOprazole SOD 40 MG TAB PO SCH (09:15)
[2017-05-08] MEDS: OXYCODONE HCL 10 MG TABCR (OXYCONTIN) PO SCH ×2 (09:16→20:41)
--- NOTE | 2017-05-08 11:10 | Progress Note ---
Subjective Date of Service: May 08, 2017. Subjective Pt evaluation today including: conversation w/ patient, physical exam, chart review, lab review main c/o is bladder spasm pt feels better and ambulated and is ready for transfer out of ICU Problem List Medical Problems: (1) Abdominal pain, left lower quadrant Status: Acute (2) Anticoagulated on Coumadin Status: Acute (3) balance problem Status: Acute (4) Biliary colic Status: Acute (5) BPH (benign prostatic hypertrophy) Status: Chronic (6) Coagulopathy Status: Acute (7) CVA (cerebral vascular accident) Status: Acute (8) Depression Status: Chronic (9) Dyspnea Status: Acute (10) Emphysema Status: Chronic (11) Fall Status: Acute (12) Gastrointestinal infection Status: Acute (13) ICH (intracerebral hemorrhage) Status: Acute (14) Intracranial bleed Status: Acute (15) Intractable pain Status: Acute (16) Left arm cellulitis Status: Acute (17) Lightheaded Status: Acute (18) Macular degeneration Status: Chronic (19) NSTEMI (non-ST elevated myocardial infarction) Status: Acute (20) Peripheral neuropathy Status: Chronic (21) Prostatitis Status: Acute (22) Sepsis Status: Acute (23) Sepsis due to urinary tract infection Status: Acute (24) Septic olecranon bursitis of left elbow Status: Acute (25) Sleep apnea Status: Chronic (26) UTI (urinary tract infection) Status: Acute Surgical Problems: (1) AICD (automatic cardioverter/defibrillator) present Status: Chronic Objective Vital Signs Date Time Temp Pulse Resp B/P (MAP) Pulse Ox O2 Delivery O2 Flow Rate FiO2 05/08/17 10:10 76 20 90 Room Air 05/08/17 08:00 Room Air 05/08/17 08:00 79 20 131/78 (95) 90 Room Air 05/08/17 04:46 96 CPAP 05/08/17 04:01 76 27 92/60 (71) 92 CPAP 05/08/17 03:00 67 18 98/64 (75) 91 CPAP 05/08/17 02:00 66 7 91/55 (67) CPAP 05/08/17 01:00 68 16 122/72 (89) 92 CPAP 05/08/17 00:29 93 Nasal Cannula 4.0 05/08/17 00:00 36.9 75 21 90/65 (73) 91 Nasal Cannula 4.0 05/07/17 23:03 70 94 4.0 05/07/17 23:00 69 17 101/62 (75) 95 Nasal Cannula 4.0 05/07/17 22:00 71 22 97/63 (74) Nasal Cannula 4.0 05/07/17 21:01 91 32 123/96 (105) 96 Nasal Cannula 4.0 05/07/17 20:03 93 Nasal Cannula 4.0 05/07/17 20:00 36.9 82 17 94/57 (69) 91 Nasal Cannula 4.0 05/07/17 19:00 92 24 106/65 (79) 94 Nasal Cannula 4.0 05/07/17 18:00 81 21 99/52 (68) 94 Nasal Cannula 4.0 05/07/17 17:01 36.6 76 18 107/70 (80) 94 Nasal Cannula 4 05/07/17 16:55 73 18 109/70 (81) 95 Oxymask 4 05/07/17 16:50 36.7 78 20 115/71 (80) 97 Oxymask 4 05/07/17 16:45 36.7 77 21 116/74 (79) 97 Oxymask 4 05/07/17 16:40 36.7 80 20 112/77 (82) 97 Oxymask 4 05/07/17 16:30 36.7 81 18 116/79 (92) 97 Oxymask 4 05/07/17 14:00 80 120/78 (92) 95 Nasal Cannula 4.0 05/07/17 12:00 36.5 78 120/76 (91) 87 Nasal Cannula 4.0 05/07/17 12:00 Nasal Cannula 4.0 Physical Exam Comments: urine cultures negative as are blood cultures not sure pt had acute prostatitis vs uti with retention Laboratory Results Last 24 Hours Test 05/07/17 17:30 05/08/17 05:15 Bedside Glucose 105 mg/dl White Blood Count 9.30 K/uL Red Blood Count 3.41 M/uL Hemoglobin 10.4 g/dL Hematocrit 30.8 % Mean Corpuscular Volume 90.3 fL Mean Corpuscular Hemoglobin 30.5 pg Mean Corpuscular Hemoglobin Concent 33.8 g/dl Platelet Count 186 K/uL Mean Platelet Volume 10.1 fL Neutrophils (%) (Auto) 73.7 % Lymphocytes (%) (Auto) 12.7 % Monocytes (%) (Auto) 8.6 % Eosinophils (%) (Auto) 2.9 % Basophils (%) (Auto) 0.1 % Neutrophils # (Auto) 6.85 K/uL Lymphocytes # (Auto) 1.18 K/uL Monocytes # (Auto) 0.80 K/uL Eosinophils # (Auto) 0.27 K/uL Basophils # (Auto) 0.01 K/uL RDW Standard Deviation 45.8 fL RDW Coefficient of Variation 13.9 % Immature Granulocyte % (Auto) 2.0 % Immature Granulocyte # (Auto) 0.19 K/uL Sodium Level 136 mmol/L Potassium Level 3.6 mmol/L Chloride Level 106 mmol/L Carbon Dioxide Level 23 mmol/L Anion Gap 7.0 mmol/L Blood Urea Nitrogen 18 mg/dl Creatinine 0.79 mg/dl Est Creatinine Clear Calc Drug Dose 98.0 ml/min Estimated GFR () 104.0 Estimated GFR (Non- 89.7 BUN/Creatinine Ratio 22.8 Random Glucose 95 mg/dl Calcium Level 7.6 mg/dl Troponin I 0.099 ng/ml Procalcitonin 7.31 ng/ml Assessment and Plan Cont to treat for bladder spasms Might try [id number] if bp remains low or if ditropan causes constipation pt will need to leave ray in at least a week to let contracture heal Continued [facility] stay due to: fever, abnormal vital signs, inadequate oral pain control, voiding difficulties, ambulation difficulties, multiple IV medications needed Discharge planning: uncertain
[2017-05-08] MEDS: SODIUM CHLORIDE 0.9% 1000ML 1,000 ML IV SCH (12:38)
[2017-05-08] MEDS ORDERED: NURSING VERBAL MED ORDER ONE (13:00)
--- NOTE | 2017-05-08 13:45 | CARDIOLOGY PROGRESS NOTE ---
DATE: 05/08/2017 DATE: 05/08/2017 SUBJECTIVE: Mr. Louise is resting comfortably in bedside chair eating lunch. He has not experienced any chest pain or dyspnea. OBJECTIVE: VITAL SIGNS: Blood pressure is 131/78 with a regular pulse of 80. Respiratory rate is 20. The patient is afebrile at 36.7 degrees Celsius. Saturations 90% on room air. NECK: Supple with full carotid upstrokes. There are no obvious bruits. Jugular venous pressure is flat at 90 degrees. CARDIOVASCULAR EXAMINATION: Reveals a regular rhythm with normal S1 and S2. Heart sounds are distant. No obvious murmurs. LUNGS: Clear without rales, rhonchi, or wheezes. ABDOMEN: Soft without bruits. EXTREMITIES: Reveal intact radial artery pulses bilaterally. There is no peripheral edema. LABORATORY DATA: CBC notes hemoglobin of 10.4, hematocrit 30.8, white count 9.3, platelet count 186,000. Electrolytes note a sodium of 136, potassium 3.6, chloride 106, bicarbonate 23, BUN 18, creatinine 0.79, glucose 95. Troponin down to 0.099. body engineer benign. IMPRESSION AND PLAN: 1. Coronary artery disease -- with a history of remote myocardial infarction. Continue medical management. Mildly elevated troponin of no concern currently as the patient has had no angina pectoris. 2. Ischemic cardiomyopathy -- ejection fraction of 45-50% on echocardiogram performed in August 2016. 3. Combined congestive heart failure -- patient now compensated. 4. Hypercholesterolemia. 5. Left ventricular hypertrophy. 6. Urosepsis -- improving on antibiotics. Status post fall at the time of presentation with a small intracerebral hemorrhage. 7. Disposition -- stable for transfer to the floor.
--- NOTE | 2017-05-08 16:24 | DIAGNOSTIC IMAGING REPORT ---
HEAD WITHOUT CONTRAST (CT) CT DOSE: 537.48 mGy.cm HISTORY: Intracranial hemorrhage recent SAH, ongoing dizziness, eval for worsening SAH TECHNIQUE: Multiaxial CT images of the head were performed without the use of intravenous contrast. A dose lowering technique was utilized adhering to the principles of ALARA. Comparison: 05/05/2017 FINDINGS: continued decrease in prominence of the focus of increased density right superior parietal lobe. There are no new foci of hemorrhage. There is no midline shift. There is no significant mass effect. Impression: Continued improvement in the appearance of the small focus of slightly increased density right superior parietal lobe. No new or interval process. No evidence for progressive hemorrhage. The above report was generated using voice recognition software. It may contain grammatical, syntax or spelling errors. Electronically signed by: Junior Rosas M.D. 05/08/2017 4:23 PM Dictated Date/Time: 05/08/2017 4:21 PM
[2017-05-08] MEDS ORDERED: POTASSIUM CHLORIDE 20 MEQ TABCR PO ONE (17:00)
[2017-05-08] MEDS ORDERED: BUMETANIDE 1 MG TAB PO ONE (17:00)
--- NOTE | 2017-05-08 19:21 | Critical Care Progress Note ---
Critical Care Progress Note Date of Service May 08, 2017. Attending Dr. Otero Subjective Feel good today, up in chair, eating, denies shortness of breath POD#1 s/p incision of bladder neck contracture. Kingston in place, no hematuria Objective General: Elderly male, NAD Heent: NC/AT Lungs: Mostly clear CVS: S1S2 regular Abd: Soft, obese, non-tender Ext: trace pedal edema [employer]PER[employer]OR ORDER TAKERS: no focal deficit Assessment & Plan (1) Sepsis due to urinary tract infection (2) Prostatitis (3) Gastrointestinal infection (4) Sepsis (5) Fall (6) Coagulopathy (7) ICH (intracerebral hemorrhage) (8) balance problem 72 year old male on full anticoagulation for recurrent DVT/PE, CAD, CHF, ROSE, diverticulosis presents with severe sepsis secondary to UTI/prostatitis and small traumatic ICH. ICH stabilized. Had a second bout of severe SIRS after Kingston manipulation, improved clinically. On 05/08/17 went to OR to insert the Kingston since it could not pe passed in the bladder, underwent incision of bladder neck. Kingston now in place Plan: Continue Abx, on Levaquin Maintain Kingston, management per urology Anticoagulation to be held. The last CT brain showed that the bleeding has not grown in size. Mild troponin elevation, not consistent with ACS. No need for further workup for the time being Avoid overloading the patient with fluid given CHF and congested xray appearance. Hold IV fluids today Would restart Bumex tomorrow Continue CPAP therapy at night, he is very compliant DVT prophylaxis: SCDs Critical care time spent with the patient, , reviewing the chart, discussing with consultants, greater than 25 minutes Transferring out of the ICU, will sign off Consults & Procedures Consultants: Dr. Perales - Urology Dr. Whitley - Attending Hospitalist Procedures: Irrigation Kingston Catheter placed - Dr. Perales Data Medications: Current Inpatient Medications Medications (Trade) Dose Ordered Sig/Charly Route Start Time Stop Time Status Last Admin Dose Admin Albuterol (Ventolin Hfa Inhaler) 2 puffs Q6H INH 05/04/17 22:00 06/03/17 21:59 05/08/17 17:25 2 PUFFS Artificial Tears (Lacri-Lube Oph Oint) 1 appln QAM OPB 05/05/17 09:00 06/04/17 08:59 05/08/17 09:14 1 APPLN Bupropion HCl (Wellbutrin Tab) 100 mg BID17 PO 05/04/17 21:00 06/03/17 20:59 05/08/17 17:27 100 MG Carvedilol (Coreg Tab) 12.5 mg QPM PO 05/04/17 21:00 06/03/17 20:59 05/07/17 21:29 12.5 MG Carvedilol (Coreg Tab) 25 mg QAM PO 05/05/17 09:00 06/04/17 08:59 05/08/17 09:14 25 MG Finasteride (Proscar Tab) 5 mg QAM PO 05/05/17 09:00 06/04/17 08:59 05/08/17 09:15 5 MG Folic Acid (Folvite Tab) 1 mg QAM PO 05/05/17 09:00 06/04/17 08:59 05/08/17 09:15 1 MG Metoclopramide HCl (Reglan Tab) 5 mg Q8 PO 05/04/17 22:00 06/03/17 21:59 05/08/17 15:13 5 MG Pantoprazole Sodium (Protonix Tab) 40 mg DAILY PO 05/05/17 09:00 06/04/17 08:59 05/08/17 09:15 40 MG Senna (Senokot Tab) 8.6 mg HS PO 05/04/17 21:00 06/03/17 20:59 05/07/17 21:02 8.6 MG Simvastatin (Zocor Tab) 40 mg QPM PO 05/04/17 21:00 06/03/17 20:59 05/07/17 21:04 40 MG Tiotropium [place] (Spiriva Handihaler Inhaler) 1 puff DAILY INH 05/05/17 09:00 06/04/17 08:59 05/08/17 09:13 1 PUFF Docusate Sodium (coLACE CAP) 100 mg BID PO 05/04/17 21:00 06/03/17 20:59 05/08/17 09:14 100 MG Oxycodone HCl (Oxycontin Tab) 10 mg Q12 PO 05/04/17 21:00 06/03/17 20:59 05/08/17 09:16 10 MG Acetaminophen (Tylenol Tab) 650 mg Q4H PRN PO 05/04/17 19:30 06/03/17 19:29 05/05/17 15:46 650 MG Lorazepam (Ativan Tab) 0.5 mg Q4H PRN PO 05/04/17 19:30 06/03/17 19:29 Al Hydrox/Mg Hydrox/Simethicone (Maalox Max Susp) 15 ml Q4H PRN PO 05/04/17 19:30 06/03/17 19:29 05/06/17 15:24 15 ML Magnesium Hydroxide (Milk Of Magnesia Susp) 30 ml Q12H PRN PO 05/04/17 19:30 06/03/17 19:29 Ondansetron HCl (Zofran Inj) 4 mg Q6H PRN IV 05/04/17 19:30 06/03/17 19:29 Ranitidine HCl (zANTac TAB) 150 mg BID PO 05/04/17 21:00 06/03/17 20:59 05/08/17 09:15 150 MG Morphine Sulfate (MoRPHine SULFATE INJ) 4 mg Q2H PRN IV 05/04/17 19:30 05/18/17 19:29 05/07/17 11:00 4 MG Bumetanide (Bumex Tab) 1 mg QAM PO 05/07/17 09:00 06/06/17 08:59 05/08/17 09:14 1 MG Meclizine HCl (Antivert Tab) 12.5 mg Q6H PRN PO 05/06/17 11:45 06/05/17 11:44 05/06/17 14:21 12.5 MG Belladonna/Opium (B & O Adult Supp) 60 mg Q8 PRN [place] 05/06/17 21:00 05/20/17 20:59 05/08/17 04:56 60 MG Oxybutynin Chloride (Ditropan Tab) 5 mg Q8 PRN PO 05/06/17 21:00 06/05/17 20:59 05/08/17 06:02 5 MG Levofloxacin 750 mg/Prmx 150 ml @ 100 mls/hr Q24H IV 05/06/17 22:00 05/13/17 21:59 05/07/17 21:30 100 MLS/HR I & O: 24-Hour Column 05/09/17 08:00 Intake Total 830 ml Output Total 1100 ml Balance -270 ml Vital Signs: Date Time Temp Pulse Resp B/P (MAP) Pulse Ox O2 Delivery O2 Flow Rate FiO2 05/08/17 16:00 Nasal Cannula 2.0 05/08/17 15:38 36.5 78 18 109/63 (78) 92 Nasal Cannula 2.0 05/08/17 12:00 Room Air 05/08/17 12:00 79 20 Room Air 05/08/17 10:10 76 20 90 Room Air 05/08/17 08:00 Room Air 05/08/17 08:00 79 20 131/78 (95) 90 Room Air 05/08/17 04:46 96 CPAP 05/08/17 04:01 76 27 92/60 (71) 92 CPAP 05/08/17 03:00 67 18 98/64 (75) 91 CPAP 05/08/17 02:00 66 7 91/55 (67) CPAP 05/08/17 01:00 68 16 122/72 (89) 92 CPAP 05/08/17 00:29 93 Nasal Cannula 4.0 05/08/17 00:00 36.9 75 21 90/65 (73) 91 Nasal Cannula 4.0 05/07/17 23:03 70 94 4.0 05/07/17 23:00 69 17 101/62 (75) 95 Nasal Cannula 4.0 05/07/17 22:00 71 22 97/63 (74) Nasal Cannula 4.0 05/07/17 21:01 91 32 123/96 (105) 96 Nasal Cannula 4.0 05/07/17 20:03 93 Nasal Cannula 4.0 05/07/17 20:00 36.9 82 17 94/57 (69) 91 Nasal Cannula 4.0 Laboratory Results: Last 24 Hours Test 05/08/17 05:15 05/08/17 11:46 05/08/17 16:31 White Blood Count 9.30 K/uL Red Blood Count 3.41 M/uL Hemoglobin 10.4 g/dL Hematocrit 30.8 % Mean Corpuscular Volume 90.3 fL Mean Corpuscular Hemoglobin 30.5 pg Mean Corpuscular Hemoglobin Concent 33.8 g/dl Platelet Count 186 K/uL Mean Platelet Volume 10.1 fL Neutrophils (%) (Auto) 73.7 % Lymphocytes (%) (Auto) 12.7 % Monocytes (%) (Auto) 8.6 % Eosinophils (%) (Auto) 2.9 % Basophils (%) (Auto) 0.1 % Neutrophils # (Auto) 6.85 K/uL Lymphocytes # (Auto) 1.18 K/uL Monocytes # (Auto) 0.80 K/uL Eosinophils # (Auto) 0.27 K/uL Basophils # (Auto) 0.01 K/uL RDW Standard Deviation 45.8 fL RDW Coefficient of Variation 13.9 % Immature Granulocyte % (Auto) 2.0 % Immature Granulocyte # (Auto) 0.19 K/uL Sodium Level 136 mmol/L Potassium Level 3.6 mmol/L Chloride Level 106 mmol/L Carbon Dioxide Level 23 mmol/L Anion Gap 7.0 mmol/L Blood Urea Nitrogen 18 mg/dl Creatinine 0.79 mg/dl Est Creatinine Clear Calc Drug Dose 98.0 ml/min Estimated GFR () 104.0 Estimated GFR (Non- 89.7 BUN/Creatinine Ratio 22.8 Random Glucose 95 mg/dl Calcium Level 7.6 mg/dl Troponin I 0.099 ng/ml Procalcitonin 7.31 ng/ml Bedside Glucose 126 mg/dl 109 mg/dl Problem Qualifiers (1) Prostatitis: Prostatitis type: acute Qualified Codes: N41.0 - Acute prostatitis (2) Sepsis: Sepsis type: sepsis due to unspecified organism Qualified Codes: A41.9 - Sepsis, unspecified organism (3) Fall: Encounter type: initial encounter Qualified Codes: W19.XXXA - Unspecified fall, initial encounter (4) ICH (intracerebral hemorrhage): Intracerebral hemorrhage etiology: traumatic
[2017-05-08] MEDS: SIMVASTATIN 40 MG TAB PO SCH (20:43)
[2017-05-08] MEDS: SENNA 8.6 MG TAB PO SCH (20:43)
[2017-05-08] MEDS: CARVEDILOL 12.5 MG TAB PO SCH (20:46)
[2017-05-08] MEDS: LEVOFLOXACIN / D5W 750 MG in PREMIXED IN D5W 150 ML IV SCH (21:56)
--- NOTE | 2017-05-09 00:06 | Progress Note ---
Subjective Date of Service: May 08, 2017. Subjective Pt evaluation today including: conversation w/ patient, physical exam, chart review, lab review, review of studies (CT head), conversation w/ toy consultant ( critical care ), review of inpatient medication list Pain: bladder spasms at times PO Intake: improving Voiding: ray catheter in place events of last 24 hours noted patient reports extreme weakness with trying to stand he had weakness and "my legs were rubbery" when working with PT today he also had dizziness and transient vertigo denies headache denies focal motor weakness did have mild POWERS when working with PT today no sob at rest Problem List Medical Problems: (1) Abdominal pain, left lower quadrant Status: Acute (2) Anticoagulated on Coumadin Status: Acute (3) balance problem Status: Acute (4) Biliary colic Status: Acute (5) BPH (benign prostatic hypertrophy) Status: Chronic (6) Coagulopathy Status: Acute (7) CVA (cerebral vascular accident) Status: Acute (8) Depression Status: Chronic (9) Dyspnea Status: Acute (10) Emphysema Status: Chronic (11) Fall Status: Acute (12) Gastrointestinal infection Status: Acute (13) ICH (intracerebral hemorrhage) Status: Acute (14) Intracranial bleed Status: Acute (15) Intractable pain Status: Acute (16) Left arm cellulitis Status: Acute (17) Lightheaded Status: Acute (18) Macular degeneration Status: Chronic (19) NSTEMI (non-ST elevated myocardial infarction) Status: Acute (20) Peripheral neuropathy Status: Chronic (21) Prostatitis Status: Acute (22) Sepsis Status: Acute (23) Sepsis due to urinary tract infection Status: Acute (24) Septic olecranon bursitis of left elbow Status: Acute (25) Sleep apnea Status: Chronic (26) UTI (urinary tract infection) Status: Acute Surgical Problems: (1) AICD (automatic cardioverter/defibrillator) present Status: Chronic Review of Systems Constitutional: No fever, No chills Respiratory: No cough Cardiac: No chest pain, No orthopnea Abdomen: + see HPI, No pain, No nausea, No vomiting Objective Vital Signs Date Time Temp Pulse Resp B/P (MAP) Pulse Ox O2 Delivery O2 Flow Rate FiO2 05/08/17 23:44 36.6 81 20 131/78 (95) 94 Nasal Cannula 4.0 1/13/18 22:23 96 4.0 05/08/17 20:50 71 127/79 (95) 05/08/17 20:00 93 Nasal Cannula 2.0 05/08/17 19:53 36.7 83 18 114/72 (86) 93 Nasal Cannula 2.0 05/08/17 16:00 Nasal Cannula 2.0 05/08/17 15:38 36.5 78 18 109/63 (78) 92 Nasal Cannula 2.0 05/08/17 12:00 Room Air 05/08/17 12:00 79 20 Room Air 05/08/17 10:10 76 20 90 Room Air 05/08/17 08:00 Room Air 05/08/17 08:00 79 20 131/78 (95) 90 Room Air 05/08/17 04:46 96 CPAP 05/08/17 04:01 76 27 92/60 (71) 92 CPAP 05/08/17 03:00 67 18 98/64 (75) 91 CPAP 05/08/17 02:00 66 7 91/55 (67) CPAP 05/08/17 01:00 68 16 122/72 (89) 92 CPAP 05/08/17 00:29 93 Nasal Cannula 4.0 05/08/17 00:00 36.9 75 21 90/65 (73) 91 Nasal Cannula 4.0 Physical Exam General Appearance: no apparent distress ENT: pharynx normal Neck: no JVD Respiratory/Chest: no respiratory distress, no accessory muscle use, + decreased breath sounds (bases) Cardiovascular: regular rate, rhythm, no gallop, no murmur Abdomen: normal bowel sounds, non tender, no organomegaly, + distended (mild- moderate) Extremities: no pedal edema Neurologic/Psychiatric: no motor/sensory deficits (strength 5/5 x 4 extremities ), alert, oriented x 3 Laboratory Results Last 24 Hours Test 05/08/17 05:15 05/08/17 11:46 05/08/17 16:31 White Blood Count 9.30 K/uL Red Blood Count 3.41 M/uL Hemoglobin 10.4 g/dL Hematocrit 30.8 % Mean Corpuscular Volume 90.3 fL Mean Corpuscular Hemoglobin 30.5 pg Mean Corpuscular Hemoglobin Concent 33.8 g/dl Platelet Count 186 K/uL Mean Platelet Volume 10.1 fL Neutrophils (%) (Auto) 73.7 % Lymphocytes (%) (Auto) 12.7 % Monocytes (%) (Auto) 8.6 % Eosinophils (%) (Auto) 2.9 % Basophils (%) (Auto) 0.1 % Neutrophils # (Auto) 6.85 K/uL Lymphocytes # (Auto) 1.18 K/uL Monocytes # (Auto) 0.80 K/uL Eosinophils # (Auto) 0.27 K/uL Basophils # (Auto) 0.01 K/uL RDW Standard Deviation 45.8 fL RDW Coefficient of Variation 13.9 % Immature Granulocyte % (Auto) 2.0 % Immature Granulocyte # (Auto) 0.19 K/uL Sodium Level 136 mmol/L Potassium Level 3.6 mmol/L Chloride Level 106 mmol/L Carbon Dioxide Level 23 mmol/L Anion Gap 7.0 mmol/L Blood Urea Nitrogen 18 mg/dl Creatinine 0.79 mg/dl Est Creatinine Clear Calc Drug Dose 98.0 ml/min Estimated GFR () 104.0 Estimated GFR (Non- 89.7 BUN/Creatinine Ratio 22.8 Random Glucose 95 mg/dl Calcium Level 7.6 mg/dl Troponin I 0.099 ng/ml Procalcitonin 7.31 ng/ml Bedside Glucose 126 mg/dl 109 mg/dl Assessment and Plan 72yo male - 1. trace right-sided SAH - he continues with dizziness & vertigo. Suspect post -concussive syndrome. Repeat head CT obtained today and SAH is essentially resolved. His SAH was from trauma in the setting of a fall w/ head injury. Coumadin has been reversed. Cont PT, OT as tolerated. Vertigo likely 2nd to head injury/SAH/concussion. 2. sepsis / severe sepsis due to e. coli UTI / prostatitis - urine cx from sent from [facility] grew 30,000 CFU of e. coli. largely pansensitive (resistant to tetracycline only). WBC count has normalized. no fever in over 48 hours. Multiple sets of blood cx's negative. Can stop aztreonam; continue levaquin IV. I believe that we could go to oral cipro in the next 1-2 days and Rx for about 1 month (due to presence of prostatitis). 3. urine retention & obstruction - 2nd to bladder neck obstruction, s/p cystoscopy, incision of bladder neck contracture and placement of ray catheter. POD #1. Stable from standpoint. 4. acute/chronic systolic/diastolic CHF - he continues with O2 requirement and CXR from yesterday w/ worsening pulmonary edema. Receiving 1mg oral bumex qam. Will give additional bumex this evening for additional diuresis. Repeat BMP in am. 5. CAD with prior h/o VT - no evidence of ACS at this time. Troponin elevation this admission likely myocardial demand ischemia in the setting of his fever, etc. Appreciate cardiology consultation. 6. h/o multiple VTE events (DVT and PE) - noted; resume coumadin when deemed safe from neurological standpoint and standpoint. May need to contact neurosurgery at [facility] or [facility] for their opinion in light of # 1. If he is deemed not a candidate for anticoagulation then IVC filter? 7. acute kidney injury - resolved. Multiple factors (sepsis, obstruction, etc) . 8. BPH with urinary retention and bladder neck obstruction - s/p cysto with incision of bladder neck contracture. Cont finasteride. 9. COPD - not in exacerbation at this time. 10. HTN - cont BB. 11. ROSE - continue home CPAP. 12. h/o v-tach - has AICD in place. 13. hematuria - due to multiple ray catheter attempts, etc - resolved. 14. hyponatremia - 2nd to acute kidney injury - resolved. 15. mild ileus - likely due to his sepsis. Supportive care. If any feeding intolerance/vomiting then NPO or clear liquids but thus far tolerating diet. 16. DVT proph - SCDs; chemical means contraindicated for now. d/c ICU status, change to tele status Continued [facility] stay due to: voiding difficulties, ambulation difficulties, multiple IV medications needed Discharge planning: uncertain
[2017-05-09 05:01] VITALS: BP 117/79; PULSE 70; TEMP 36.3; O2SAT 96
[2017-05-09] MEDS: METOCLOPRAMIDE HCL 5 MG TAB PO SCH ×3 (05:40→20:47)
[2017-05-09] MEDS: ALBUTEROL HFA 8 GM INHALER INH SCH ×4 (05:40→20:47)
[2017-05-09 06:46] LABS: BASO % 0.4 %; BASO ABS # 0.03 K/uL (0-0.2); EOS % 4.4 %; EOS ABS # 0.31 K/uL (0-0.5); HEMATOCRIT 33.9 % (42-52); HEMOGLOBIN 11.4 g/dL (14.0-18.0); IG# 0.26 K/uL (0.00-0.02); LYMPH % 18.5 %; LYMPH ABS # 1.31 K/uL (1.2-3.4); MEAN CELL VOLUME 89.4 fL (80-100); MEAN CORPUSCULAR HEMOGLOBIN 30.1 pg (25-34); MEAN CORPUSCULAR HGB CONC 33.6 g/dl (32-36); MEAN PLATELET VOLUME 10.4 fL (7.4-10.4); MONO % 9.6 %; MONO ABS # 0.68 K/uL (0.11-0.59); NEUT % 63.4 %; NEUT ABS # 4.51 K/uL (1.4-6.5); NUCLEATED RED BLOOD CELL ABS 0.03 K/uL (0-0); PLATELET COUNT 219 K/uL (130-400); RED CELL DISTRIBUTION WIDTH CV 13.7 % (11.5-14.5); RED CELL DISTRIBUTION WIDTH SD 44.4 fL (36.4-46.3)
[2017-05-09 07:04] VITALS: BP 126/70; PULSE 71; TEMP 36.5; O2SAT 97
[2017-05-09 07:18] LABS: CALCIUM 8.2 mg/dl (8.5-10.1); CREATININE 0.81 mg/dl (0.60-1.40); POTASSIUM 3.7 mmol/L (3.5-5.1)
[2017-05-09] MEDS: DOCUSATE SODIUM 100 MG CAP PO SCH ×2 (09:14→20:44)
[2017-05-09] MEDS: OXYBUTYNIN CHLORIDE 5 MG TAB PO PRN (09:14)
[2017-05-09] MEDS: CARVEDILOL 25 MG TAB PO SCH (09:15)
[2017-05-09] MEDS: BUMETANIDE 1 MG TAB PO SCH (09:16)
[2017-05-09] MEDS: RANITIDINE HCL 150 MG TAB PO SCH ×2 (09:16→20:45)
[2017-05-09] MEDS: FINASTERIDE 5 MG TAB PO SCH (09:16)
[2017-05-09] MEDS: PANTOprazole SOD 40 MG TAB PO SCH (09:16)
[2017-05-09] MEDS: TIOTROPIUM BROMIDE 5 PUFF/90 MCG INH INH SCH (09:17)
[2017-05-09] MEDS: ARTIFICIAL TEARS OP OINT 3.5 GM TUBE OPB SCH (09:17)
--- NOTE | 2017-05-09 09:31 | Progress Note ---
Subjective Date of Service: May 09, 2017. Subjective pt still feels unsteady with position change which is new since admission, he has no visual changes but does feel his gait is off with regard to volition and balance but not strength, is looking to get to rehab at time of discharge Problem List Medical Problems: (1) Abdominal pain, left lower quadrant Status: Acute (2) Anticoagulated on Coumadin Status: Acute (3) balance problem Status: Acute (4) Biliary colic Status: Acute (5) BPH (benign prostatic hypertrophy) Status: Chronic (6) Coagulopathy Status: Acute (7) CVA (cerebral vascular accident) Status: Acute (8) Depression Status: Chronic (9) Dyspnea Status: Acute (10) Emphysema Status: Chronic (11) Fall Status: Acute (12) Gastrointestinal infection Status: Acute (13) ICH (intracerebral hemorrhage) Status: Acute (14) Intracranial bleed Status: Acute (15) Intractable pain Status: Acute (16) Left arm cellulitis Status: Acute (17) Lightheaded Status: Acute (18) Macular degeneration Status: Chronic (19) NSTEMI (non-ST elevated myocardial infarction) Status: Acute (20) Peripheral neuropathy Status: Chronic (21) Prostatitis Status: Acute (22) Sepsis Status: Acute (23) Sepsis due to urinary tract infection Status: Acute (24) Septic olecranon bursitis of left elbow Status: Acute (25) Sleep apnea Status: Chronic (26) UTI (urinary tract infection) Status: Acute Surgical Problems: (1) AICD (automatic cardioverter/defibrillator) present Status: Chronic Review of Systems Constitutional: + weakness, + fatigue, No fever, No chills Eyes: No worsening of vision, No discharge ENT: No hearing loss, No trouble swallowing Respiratory: No cough, No shortness of breath Cardiac: No chest pain, No edema Neurologic: + weakness, + balance problems, No memory loss Objective Vital Signs Date Time Temp Pulse Resp B/P (MAP) Pulse Ox O2 Delivery O2 Flow Rate FiO2 05/09/17 07:04 36.5 71 18 126/70 (88) 97 Nasal Cannula 2.0 05/09/17 05:01 36.3 70 16 117/79 (92) 96 Nasal Cannula 2.5 05/09/17 04:00 Nasal Cannula 2.0 05/09/17 00:00 Nasal Cannula 2.0 05/08/17 23:44 36.6 81 20 131/78 (95) 94 Nasal Cannula 4.0 05/08/17 22:23 96 4.0 05/08/17 20:50 71 127/79 (95) 05/08/17 20:00 93 Nasal Cannula 2.0 05/08/17 19:53 36.7 83 18 114/72 (86) 93 Nasal Cannula 2.0 05/08/17 16:00 Nasal Cannula 2.0 05/08/17 15:38 36.5 78 18 109/63 (78) 92 Nasal Cannula 2.0 05/08/17 12:00 Room Air 05/08/17 12:00 79 20 Room Air 05/08/17 10:10 76 20 90 Room Air Physical Exam General Appearance: WD/WN, + mild distress Eyes: normal inspection, sclerae normal, + pertinent finding (no nystagmus) Respiratory/Chest: chest non-tender, lungs clear, normal breath sounds Cardiovascular: regular rate, rhythm, no murmur Abdomen: normal bowel sounds, non tender, soft Neurologic/Psychiatric: alert, + motor weakness, + pertinent finding (bpv like exacerbation of symptoms with movement) Laboratory Results Last 24 Hours Test 05/08/17 11:46 05/08/17 16:31 05/09/17 06:33 Bedside Glucose 126 mg/dl 109 mg/dl White Blood Count 7.10 K/uL Red Blood Count 3.79 M/uL Hemoglobin 11.4 g/dL Hematocrit 33.9 % Mean Corpuscular Volume 89.4 fL Mean Corpuscular Hemoglobin 30.1 pg Mean Corpuscular Hemoglobin Concent 33.6 g/dl Platelet Count 219 K/uL Mean Platelet Volume 10.4 fL Neutrophils (%) (Auto) 63.4 % Lymphocytes (%) (Auto) 18.5 % Monocytes (%) (Auto) 9.6 % Eosinophils (%) (Auto) 4.4 % Basophils (%) (Auto) 0.4 % Neutrophils # (Auto) 4.51 K/uL Lymphocytes # (Auto) 1.31 K/uL Monocytes # (Auto) 0.68 K/uL Eosinophils # (Auto) 0.31 K/uL Basophils # (Auto) 0.03 K/uL RDW Standard Deviation 44.4 fL RDW Coefficient of Variation 13.7 % Immature Granulocyte % (Auto) 3.7 % Immature Granulocyte # (Auto) 0.26 K/uL Nucleated RBC Absolute Count (auto) 0.03 K/uL Nucleated Red Blood Cells % 0.4 % Sodium Level 134 mmol/L Potassium Level 3.7 mmol/L Chloride Level 101 mmol/L Carbon Dioxide Level 25 mmol/L Anion Gap 8.0 mmol/L Blood Urea Nitrogen 19 mg/dl Creatinine 0.81 mg/dl Est Creatinine Clear Calc Drug Dose 96.2 ml/min Estimated GFR () 102.9 Estimated GFR (Non- 88.8 BUN/Creatinine Ratio 23.0 Random Glucose 102 mg/dl Calcium Level 8.2 mg/dl Magnesium Level 2.1 mg/dl Assessment and Plan 72yo male -with fall and Intracranial hemorrhage, post concussive syndrome and sepsis from e coli prostatitis poa Trace right-sided SAH, post-concussive syndrome continues to be symptomatic Repeat head CT obtained 05/08 and SAH is essentially resolved. His SAH was from trauma in the setting of a fall w/ head injury. Coumadin has been reversed. Cont PT, OT as tolerated. Vertigo likely 2nd to head injury/SAH/concussion. sepsis / severe sepsis due to e. coli UTI / prostatitis - urine cx from 05/04/17 sent from [facility] grew 30,000 CFU of e. coli. largely pansensitive (resistant to tetracycline only), continue levaquin IV. consider oral cipro BPH urine retention & obstruction - 2nd to bladder neck obstruction, s/p cystoscopy, incision of bladder neck contracture and placement of ray catheter. Post operative and stable from standpoint. Cont finasteride. acute/chronic systolic/diastolic CHF - he continues with O2 requirement and CXR concern for worsening pulmonary edema. Receiving 1mg oral bumex qam. follow with additional bumex iv CAD with prior h/o MT - no evidence of ACS at this time. Troponin elevation this admission likely myocardial demand ischemia in the setting of his fever, etc. cardiology consultation has no planned intervention h/o v-tach - has AICD in place. h/o multiple VTE events (DVT and PE) - noted; resume coumadin when deemed safe from neurological standpoint and standpoint. If not a candidate for anticoagulation then IVC filter? acute kidney injury - resolved. hyponatremia - 2nd to acute kidney injury - resolved. COPD - not in exacerbation at this time. ROSE - continue home CPAP. mild ileus - likely due to his sepsis. Supportive care. DVT proph - SCDs; chemical means contraindicated for now. Continued [facility] stay due to: voiding difficulties, ambulation difficulties, multiple IV medications needed Discharge planning: uncertain
[2017-05-09] MEDS: OXYCODONE HCL 10 MG TABCR (OXYCONTIN) PO SCH ×2 (09:34→20:45)
[2017-05-09] MEDS: MoRPHine SULFATE 4 MG/ML 1 ML CARP\\VIAL IV PRN (10:25)
[2017-05-09 11:46] VITALS: BP 99/66; PULSE 69; TEMP 36.6; O2SAT 94
--- NOTE | 2017-05-09 13:57 | CARDIOLOGY PROGRESS NOTE ---
DATE: 05/09/2017 SUBJECTIVE: Mr. Louise is resting comfortably in the bedside chair without complaints of chest pain or dyspnea. OBJECTIVE: VITAL SIGNS: Blood pressure is 100/60 with a pulse of 70. Respiratory rate is 16. The patient is afebrile at 36.6 degrees Celsius. Saturation 94% on 2 liters nasal cannula. NECK: Supple with full carotid upstrokes. There are no carotid bruits. Jugular venous pressure is flat at 90 degrees. There is no thyromegaly. CARDIOVASCULAR: Reveals a regular rhythm with normal S1 and S2. Heart sounds are distant. No obvious murmurs. No S3. LUNGS: Clear without rales, rhonchi, or wheezes. ABDOMEN: Soft without bruits. EXTREMITIES: Reveal intact radial artery pulses bilaterally. There is no peripheral edema. DATA: CBC notes a hemoglobin of 11.4, hematocrit 33.9, white count 7.1, and platelet count 219,000. Electrolytes note a sodium of 134, potassium 3.7, chloride 101, bicarb 25, BUN 19, creatinine 0.1 and a glucose of 102. IMPRESSION AND PLAN: 1. Coronary artery disease -- with a history of remote myocardial infarction. Continue medical management. Mild elevation troponin of no clinical concern as the patient does not experience angina pectoris. 2. Ischemic cardiomyopathy -- ejection fraction of 45-50% on an echocardiogram performed in August 2016. 3. Combined congestive heart failure -- compensated. 4. Left ventricular hypertrophy. 5. Hypercholesterolemia. 6. Urosepsis -- improving on antibiotics. Did fall at the time of presentation and suffered a small intracerebral hemorrhage.
[2017-05-09 15:02] VITALS: BP 106/68; PULSE 69; TEMP 36.3; O2SAT 94
--- NOTE | 2017-05-09 15:51 | Progress Note ---
Subjective Date of Service: May 09, 2017. Subjective Pt evaluation today including: conversation w/ patient, lab review stronger but still with body pain and bledder spasms but fewer Problem List Medical Problems: (1) Abdominal pain, left lower quadrant Status: Acute (2) Anticoagulated on Coumadin Status: Acute (3) balance problem Status: Acute (4) Biliary colic Status: Acute (5) BPH (benign prostatic hypertrophy) Status: Chronic (6) Coagulopathy Status: Acute (7) CVA (cerebral vascular accident) Status: Acute (8) Depression Status: Chronic (9) Dyspnea Status: Acute (10) Emphysema Status: Chronic (11) Fall Status: Acute (12) Gastrointestinal infection Status: Acute (13) ICH (intracerebral hemorrhage) Status: Acute (14) Intracranial bleed Status: Acute (15) Intractable pain Status: Acute (16) Left arm cellulitis Status: Acute (17) Lightheaded Status: Acute (18) Macular degeneration Status: Chronic (19) NSTEMI (non-ST elevated myocardial infarction) Status: Acute (20) Peripheral neuropathy Status: Chronic (21) Prostatitis Status: Acute (22) Sepsis Status: Acute (23) Sepsis due to urinary tract infection Status: Acute (24) Septic olecranon bursitis of left elbow Status: Acute (25) Sleep apnea Status: Chronic (26) UTI (urinary tract infection) Status: Acute Surgical Problems: (1) AICD (automatic cardioverter/defibrillator) present Status: Chronic Objective Vital Signs Date Time Temp Pulse Resp B/P (MAP) Pulse Ox O2 Delivery O2 Flow Rate FiO2 05/09/17 15:02 36.3 69 18 106/68 (81) 94 05/09/17 12:19 Nasal Cannula 2.0 05/09/17 11:46 36.6 69 16 99/66 (77) 94 2.0 05/09/17 08:00 Nasal Cannula 2.0 05/09/17 07:04 36.5 71 18 126/70 (88) 97 Nasal Cannula 2.0 05/09/17 05:01 36.3 70 16 117/79 (92) 96 Nasal Cannula 2.5 05/09/17 04:00 Nasal Cannula 2.0 05/09/17 00:00 Nasal Cannula 2.0 05/08/17 23:44 36.6 81 20 131/78 (95) 94 Nasal Cannula 4.0 05/08/17 22:23 96 4.0 05/08/17 20:50 71 127/79 (95) 05/08/17 20:00 93 Nasal Cannula 2.0 05/08/17 19:53 36.7 83 18 114/72 (86) 93 Nasal Cannula 2.0 05/08/17 16:00 Nasal Cannula 2.0 Laboratory Results Last 24 Hours Test 05/08/17 16:31 05/09/17 06:33 Bedside Glucose 109 mg/dl White Blood Count 7.10 K/uL Red Blood Count 3.79 M/uL Hemoglobin 11.4 g/dL Hematocrit 33.9 % Mean Corpuscular Volume 89.4 fL Mean Corpuscular Hemoglobin 30.1 pg Mean Corpuscular Hemoglobin Concent 33.6 g/dl Platelet Count 219 K/uL Mean Platelet Volume 10.4 fL Neutrophils (%) (Auto) 63.4 % Lymphocytes (%) (Auto) 18.5 % Monocytes (%) (Auto) 9.6 % Eosinophils (%) (Auto) 4.4 % Basophils (%) (Auto) 0.4 % Neutrophils # (Auto) 4.51 K/uL Lymphocytes # (Auto) 1.31 K/uL Monocytes # (Auto) 0.68 K/uL Eosinophils # (Auto) 0.31 K/uL Basophils # (Auto) 0.03 K/uL RDW Standard Deviation 44.4 fL RDW Coefficient of Variation 13.7 % Immature Granulocyte % (Auto) 3.7 % Immature Granulocyte # (Auto) 0.26 K/uL Nucleated RBC Absolute Count (auto) 0.03 K/uL Nucleated Red Blood Cells % 0.4 % Sodium Level 134 mmol/L Potassium Level 3.7 mmol/L Chloride Level 101 mmol/L Carbon Dioxide Level 25 mmol/L Anion Gap 8.0 mmol/L Blood Urea Nitrogen 19 mg/dl Creatinine 0.81 mg/dl Est Creatinine Clear Calc Drug Dose 96.2 ml/min Estimated GFR () 102.9 Estimated GFR (Non- 88.8 BUN/Creatinine Ratio 23.0 Random Glucose 102 mg/dl Calcium Level 8.2 mg/dl Magnesium Level 2.1 mg/dl Assessment and Plan Cont to treat for bladder spasms Might try myrbetriq if bp remains low or if ditropan causes constipation pt will need to leave ray in at least a week to let contracture heal Continued [facility] stay due to: voiding difficulties, ambulation difficulties, multiple IV medications needed Discharge planning: uncertain
[2017-05-09] MEDS: BELLADONNA/OPIUM SUPP 60 MG SUPP PR PRN (16:12)
[2017-05-09] MEDS: MECLIZINE HCL 12.5 MG TAB PO SCH ×2 (16:49→20:47)
[2017-05-09 18:54] VITALS: BP 113/72; PULSE 70; TEMP 36.5; O2SAT 95
[2017-05-09] MEDS: CARVEDILOL 12.5 MG TAB PO SCH (20:44)
[2017-05-09] MEDS: SIMVASTATIN 40 MG TAB PO SCH (20:45)
[2017-05-09] MEDS: SENNA 8.6 MG TAB PO SCH (20:45)
[2017-05-09] MEDS: LEVOFLOXACIN / D5W 750 MG in PREMIXED IN D5W 150 ML IV SCH (20:50)
--- NOTE | 2017-05-09 20:56 | Progress Note ---
Post ICU Progress Note Date & Time May 09, 2017 at 20:53 Vital Signs Vital Signs Past 12 Hours Date Time Temp Pulse Resp B/P (MAP) Pulse Ox O2 Delivery O2 Flow Rate FiO2 05/09/17 18:54 36.5 70 20 113/72 (86) 95 Nasal Cannula 2.0 05/09/17 15:02 36.3 69 18 106/68 (81) 94 05/09/17 12:19 Nasal Cannula 2.0 05/09/17 11:46 36.6 69 16 99/66 (77) 94 2.0 Notes Mental Status: alert / awake Nausea / Vomiting: adequately controlled Pain: adequately controlled Airway Patency, RR, SpO2: stable & adequate BP & HR: stable & adequate Patient initially admitted for sepsis related to urinary source - prostatitis. Was aggressively managed in the ICU with antibiotics and fluids. Never required pressors. Patient was initially discharged from the ICU, but returned that same evening after developing rigors, fever, and hypoxia. Throughout that night, he received positive airway pressure and judicious IV fluids. He was eventually stable for downgraded from the ICU status. On evaluation today, the patient is resting comfortably. He reports that he feels much better than his initial presentation. He is looking for to being discharged from this facility. He wishes to go to [facility] where he is familiar from her previous visit. He offers no point this time. Consider outpatient follow up in 1 to 2 weeks with: Urology Repeat imaging needed: None at this time. Follow up cultures: None at this time. Reviewed progress notes, labs, and inpatient medication list Continue current management Additional recommendations: N/A Thank you for allowing us to participate in the care of this patient. At this time, Critical Care Services will sign off on this patient. Please feel free to reconsult as needed. Consults & Procedures Consultants: Dr. Perales - Urology Dr. Whitley - Attending Hospitalist Procedures: Irrigation [place] Catheter placed - Dr. Perales
[2017-05-09 22:46] VITALS: BP 110/70; PULSE 78; TEMP 36.3; O2SAT 92
[2017-05-10 04:42] VITALS: BP 121/79; PULSE 79; TEMP 36.9; O2SAT 92
[2017-05-10] MEDS: ALBUTEROL HFA 8 GM INHALER INH SCH ×4 (05:33→21:37)
[2017-05-10] MEDS: MECLIZINE HCL 12.5 MG TAB PO SCH ×3 (05:33→21:36)
[2017-05-10] MEDS: METOCLOPRAMIDE HCL 5 MG TAB PO SCH ×3 (05:34→21:35)
[2017-05-10 07:04] VITALS: BP 130/78; PULSE 72; TEMP 36.5; O2SAT 96
[2017-05-10] MEDS: OXYCODONE HCL 10 MG TABCR (OXYCONTIN) PO SCH ×2 (07:45→21:31)
[2017-05-10] MEDS: BUMETANIDE 1 MG TAB PO SCH (07:45)
[2017-05-10] MEDS: DOCUSATE SODIUM 100 MG CAP PO SCH ×2 (07:45→21:35)
[2017-05-10] MEDS: FINASTERIDE 5 MG TAB PO SCH (07:45)
[2017-05-10] MEDS: CARVEDILOL 25 MG TAB PO SCH ×2 (07:45→21:34)
[2017-05-10] MEDS: RANITIDINE HCL 150 MG TAB PO SCH ×2 (07:46→21:36)
[2017-05-10] MEDS: PANTOprazole SOD 40 MG TAB PO SCH (07:46)
[2017-05-10] MEDS: ARTIFICIAL TEARS OP OINT 3.5 GM TUBE OPB SCH (07:46)
--- NOTE | 2017-05-10 08:10 | Anesthesiology Progress Note ---
Anesthesia Post Op Note Date & Time May 10, 2017 at 08:10 Vital Signs Pain Intensity: 7.0 Vital Signs Past 12 Hours Date Time Temp Pulse Resp B/P (MAP) Pulse Ox O2 Delivery O2 Flow Rate FiO2 05/10/17 07:04 36.5 72 20 130/78 (95) 96 05/10/17 04:42 36.9 79 19 121/79 (93) 92 Nasal Cannula 3.0 05/10/17 04:00 CPAP 05/10/17 00:00 CPAP 05/09/17 22:46 36.3 78 20 110/70 (83) 92 Nasal Cannula 2.0 Notes Mental Status: alert / awake / arousable, participated in evaluation Pt Amnestic to Procedure: Yes Nausea / Vomiting: adequately controlled Pain: adequately controlled Airway Patency, RR, SpO2: stable & adequate BP & HR: stable & adequate Hydration State: stable & adequate Anesthetic Complications: no major complications apparent
[2017-05-10] MEDS: TIOTROPIUM BROMIDE 5 PUFF/90 MCG INH INH SCH (09:09)
--- NOTE | 2017-05-10 09:46 | Progress Note ---
Subjective Date of Service: May 10, 2017. Subjective Pt evaluation today including: conversation w/ patient, chart review, lab review Voiding: ray catheter in place (patent, draining clear, yellow urine ) 72 yo male s/p incision of BNC. Pt states he feels "50% better" this morning. Ray draining clear, yellow urine this morning. Pt c/o intermittent bladder spasms and pain. He remains on Levaquin. Reports he continues to feel "woozy" when reading or standing. Problem List Medical Problems: (1) Abdominal pain, left lower quadrant Status: Acute (2) Anticoagulated on Coumadin Status: Acute (3) balance problem Status: Acute (4) Biliary colic Status: Acute (5) BPH (benign prostatic hypertrophy) Status: Chronic (6) Coagulopathy Status: Acute (7) CVA (cerebral vascular accident) Status: Acute (8) Depression Status: Chronic (9) Dyspnea Status: Acute (10) Emphysema Status: Chronic (11) Fall Status: Acute (12) Gastrointestinal infection Status: Acute (13) ICH (intracerebral hemorrhage) Status: Acute (14) Intracranial bleed Status: Acute (15) Intractable pain Status: Acute (16) Left arm cellulitis Status: Acute (17) Lightheaded Status: Acute (18) Macular degeneration Status: Chronic (19) NSTEMI (non-ST elevated myocardial infarction) Status: Acute (20) Peripheral neuropathy Status: Chronic (21) Prostatitis Status: Acute (22) Sepsis Status: Acute (23) Sepsis due to urinary tract infection Status: Acute (24) Septic olecranon bursitis of left elbow Status: Acute (25) Sleep apnea Status: Chronic (26) UTI (urinary tract infection) Status: Acute Surgical Problems: (1) AICD (automatic cardioverter/defibrillator) present Status: Chronic Review of Systems Constitutional: No fever, No chills Respiratory: No shortness of breath Cardiac: No chest pain Abdomen: No pain, No nausea, No vomiting Male : No hematuria Heme: No abnormal bleeding/bruising Objective Vital Signs Date Time Temp Pulse Resp B/P (MAP) Pulse Ox O2 Delivery O2 Flow Rate FiO2 05/10/17 07:30 Nasal Cannula 2.0 05/10/17 07:04 36.5 72 20 130/78 (95) 96 05/10/17 04:42 36.9 79 19 121/79 (93) 92 Nasal Cannula 3.0 05/10/17 04:00 CPAP 05/10/17 00:00 CPAP 05/09/17 22:46 36.3 78 20 110/70 (83) 92 Nasal Cannula 2.0 05/09/17 20:00 Nasal Cannula 2.0 05/09/17 18:54 36.5 70 20 113/72 (86) 95 Nasal Cannula 2.0 05/09/17 16:00 Nasal Cannula 2.0 05/09/17 15:02 36.3 69 18 106/68 (81) 94 05/09/17 12:19 Nasal Cannula 2.0 05/09/17 11:46 36.6 69 16 99/66 (77) 94 2.0 Physical Exam General Appearance: no apparent distress Eyes: normal inspection ENT: hearing grossly normal Neck: no JVD Respiratory/Chest: no respiratory distress, no accessory muscle use Cardiovascular: no JVD Extremities: normal inspection Neurologic/Psychiatric: alert, normal mood/affect, oriented x 3 Skin: normal color Laboratory Results Last 24 Hours Test 05/10/17 07:52 Urine Color YELLOW Urine Appearance CLEAR Urine pH >= 9.0 Urine Specific [place] 1.013 Urine Protein NEG Urine Glucose (UA) NEG Urine Ketones NEG Urine Occult Blood 2+ Urine Nitrite NEG Urine Bilirubin NEG Urine Urobilinogen NEG Urine Leukocyte Esterase MODERATE Urine WBC (Auto) 10-30 /hpf Urine RBC (Auto) >30 /hpf Urine Hyaline Casts (Auto) 1-5 /lpf Urine Epithelial Cells (Auto) 20-30 /lpf Urine Bacteria (Auto) NEG Assessment and Plan POD #3 s/p incision of BNC; prostatitis AFVSS. Continue Levaquin. Would transition to 4 weeks of PO Levaquin prior to d/c home. Will plan to leave ray catheter in place for 2 weeks. Outpatient TOV and f/u with Dr. Perales at that time. Will order Pyridium for bladder spasms. Pt OK for d/c from [facility] when OK with primary service. Will arrange for outpatient f/u. Continued [facility] stay due to: voiding difficulties, ambulation difficulties, multiple IV medications needed Discharge planning: uncertain
[2017-05-10 11:25] VITALS: BP 105/67; PULSE 80; TEMP 36.3; O2SAT 91
[2017-05-10] MEDS: PHENAZOPYRIDINE HCL 200 MG TAB PO PRN (13:45)
[2017-05-10 15:01] VITALS: BP 110/65; PULSE 80; TEMP 36.5; O2SAT 91
--- NOTE | 2017-05-10 15:06 | Cardiology Follow-Up ---
Subjective Date of Service: May 10, 2017. Pt evaluation today including: conversation w/ patient, physical exam, chart review, lab review, review of studies, review of inpatient medication list History of Present Illness This morning the patient claims to be feeling well. He is somewhat concerned about difficulty with ambulation. He states he still has an element of weakness with ambulation. He denies any breathing difficulty currently. He has no pain. His appetite has returned in the 8 for breakfast. Social History Smoking Status: Former Smoker History of Alcohol Use: No Review of Systems Respiratory: No shortness of breath Cardiac: No chest pain Per HPI. Objective Vital Signs Past 12 Hours Date Time Temp Pulse Resp B/P (MAP) Pulse Ox O2 Delivery O2 Flow Rate FiO2 05/10/17 12:00 Room Air 05/10/17 11:25 36.3 80 20 105/67 (80) 91 Room Air 05/10/17 07:30 Nasal Cannula 2.0 05/10/17 07:04 36.5 72 20 130/78 (95) 96 05/10/17 04:42 36.9 79 19 121/79 (93) 92 Nasal Cannula 3.0 05/10/17 04:00 CPAP Last Recorded Weight-Kilograms: 94.400 Intake & Output 8-Hour Column 05/10/17 05/10/17 05/11/17 15:59 23:59 07:59 Intake Total 1040 ml Output Total 1400 ml Balance -360 ml 24-Hour Column 05/11/17 07:59 Intake Total 1040 ml Output Total 1400 ml Balance -360 ml Physical Exam The patient is alert and oriented. Mood and affect appeared normal. He answered all questions appropriately. HEENT: Pupils are equal and reactive to light and accommodation. Extraocular movements are intact. The sclerae are anicteric. Neuro: Cranial nerves intact Lungs: Clear to auscultation bilaterally. He has good air movement without use of accessory muscles. No rales wheezes or rhonchi. Cardiac: Heart demonstrates a regular rate and rhythm. Normal S1 and S2. No murmurs on examination. Pulses: The patient has palpable radial pulses bilaterally that are equal in intensity Extremities: There was no evidence of hypoperfusion. There is no cyanosis or clubbing. There is no edema. Skin: I did not appreciate any rashes on examination today. Data Laboratory Results: Last 24 Hours Test 05/10/17 07:52 Urine Color YELLOW Urine Appearance CLEAR Urine pH >= 9.0 Urine Specific [place] 1.013 Urine Protein NEG Urine Glucose (UA) NEG Urine Ketones NEG Urine Occult Blood 2+ Urine Nitrite NEG Urine Bilirubin NEG Urine Urobilinogen NEG Urine Leukocyte Esterase MODERATE Urine WBC (Auto) 10-30 /hpf Urine RBC (Auto) >30 /hpf Urine Hyaline Casts (Auto) 1-5 /lpf Urine Epithelial Cells (Auto) 20-30 /lpf Urine Bacteria (Auto) NEG Imaging: EKG: Telemetry reviewed: Assessment and Plan 1. Coronary artery disease: Did have very mild elevation in his cardiac biomarkers around the time of his acute illness. There was never any symptoms of chest pain or other objective signs of ischemia. Do not think this represented a plaque rupture event. I think continue on his current medical management we can monitor him for additional symptoms. 2. Congestive heart failure: I do not think his I and O read out is helpful given the bladder irrigation. He still on some supplemental oxygen but his lung examination is benign. He has not report significant dyspnea. Would seem reasonable continue on his current dose of daily diuretic 3. Ischemic cardiomyopathy: His LV systolic function appears to be slightly worse on the echocardiogram obtained during his acute illness. Do not think there is any pressing need for re-evaluation at this point given his improvement in clinical status. He should be continued on his current medical regimen for his ischemic cardiomyopathy. This would include his beta-clotilde which he is currently taking. POP-inhibitor was stopped due to periods of hypotension but should be resumed prior to discharge if possible.
--- NOTE | 2017-05-10 17:47 | Progress Note ---
Subjective Date of Service: May 10, 2017. Subjective this pt is most bothered by some bladder spasms, urology is adding Pyridium. we are looking for consideration of subacute rehab at [facility], is at the bedside and updated. the pt state he remains with mild vertiginous symptoms and maybe having some visual acutiy issues but [facility] Problem List Medical Problems: (1) Abdominal pain, left lower quadrant Status: Acute (2) Anticoagulated on Coumadin Status: Acute (3) balance problem Status: Acute (4) Biliary colic Status: Acute (5) BPH (benign prostatic hypertrophy) Status: Chronic (6) Coagulopathy Status: Acute (7) CVA (cerebral vascular accident) Status: Acute (8) Depression Status: Chronic (9) Dyspnea Status: Acute (10) Emphysema Status: Chronic (11) Fall Status: Acute (12) Gastrointestinal infection Status: Acute (13) ICH (intracerebral hemorrhage) Status: Acute (14) Intracranial bleed Status: Acute (15) Intractable pain Status: Acute (16) Left arm cellulitis Status: Acute (17) Lightheaded Status: Acute (18) Macular degeneration Status: Chronic (19) NSTEMI (non-ST elevated myocardial infarction) Status: Acute (20) Peripheral neuropathy Status: Chronic (21) Prostatitis Status: Acute (22) Sepsis Status: Acute (23) Sepsis due to urinary tract infection Status: Acute (24) Septic olecranon bursitis of left elbow Status: Acute (25) Sleep apnea Status: Chronic (26) UTI (urinary tract infection) Status: Acute Surgical Problems: (1) AICD (automatic cardioverter/defibrillator) present Status: Chronic Review of Systems Constitutional: + weakness, + fatigue, No fever, No chills Eyes: + worsening of vision, No eye pain Respiratory: No cough, No shortness of breath Cardiac: No chest pain, No edema Abdomen: No pain, No nausea, No vomiting, No diarrhea Musculoskeletal: No joint pain, No muscle pain Male : + dysuria, + problem reported (has ray) Neurologic: + weakness, No memory loss, No paralysis Objective Vital Signs Date Time Temp Pulse Resp B/P (MAP) Pulse Ox O2 Delivery O2 Flow Rate FiO2 05/10/17 15:01 36.5 80 16 110/65 (80) 91 Room Air 05/10/17 12:00 Room Air 05/10/17 11:25 36.3 80 20 105/67 (80) 91 Room Air 05/10/17 07:30 Nasal Cannula 2.0 05/10/17 07:04 36.5 72 20 130/78 (95) 96 05/10/17 04:42 36.9 79 19 121/79 (93) 92 Nasal Cannula 3.0 05/10/17 04:00 CPAP 05/10/17 00:00 CPAP 05/09/17 22:46 36.3 78 20 110/70 (83) 92 Nasal Cannula 2.0 05/09/17 20:00 Nasal Cannula 2.0 05/09/17 18:54 36.5 70 20 113/72 (86) 95 Nasal Cannula 2.0 Physical Exam General Appearance: WD/WN, + moderate distress Eyes: normal inspection, sclerae normal Respiratory/Chest: chest non-tender, lungs clear, normal breath sounds Cardiovascular: regular rate, rhythm, no murmur Abdomen: normal bowel sounds, soft, + tenderness (suprapubic) Extremities: no pedal edema, no calf tenderness Neurologic/Psychiatric: alert, oriented x 3 Laboratory Results Last 24 Hours Test 05/10/17 07:52 Urine Color YELLOW Urine Appearance CLEAR Urine pH >= 9.0 Urine Specific [place] 1.013 Urine Protein NEG Urine Glucose (UA) NEG Urine Ketones NEG Urine Occult Blood 2+ Urine Nitrite NEG Urine Bilirubin NEG Urine Urobilinogen NEG Urine Leukocyte Esterase MODERATE Urine WBC (Auto) 10-30 /hpf Urine RBC (Auto) >30 /hpf Urine Hyaline Casts (Auto) 1-5 /lpf Urine Epithelial Cells (Auto) 20-30 /lpf Urine Bacteria (Auto) NEG Assessment and Plan 72yo male -with fall and small Intracranial hemorrhage, post concussive syndrome and sepsis from e coli prostatitis poa, pt had bladder neck contraction and did require surgery Trace right-sided ICH, post-concussive syndrome continues to be symptomatic Repeat head CT obtained 05/08 and SAH is essentially resolved. His SAH was from trauma in the setting of a fall w/ head injury. Coumadin has been reversed, will restart aspirin after one week (05/11) and restart coumadin after 2 (05/18) Cont PT, OT will pursue subacute rehab Vertigo likely 2nd to head injury/SAH/concussion. sepsis due to e. coli UTI / prostatitis - urine cx from 05/04/17 sent from [facility] grew 30,000 CFU of e. coli. largely pansensitive (resistant to tetracycline only), continue levaquin IV. urology recommending 4 weeks BPH urine retention & obstruction - 2nd to bladder neck obstruction, s/p cystoscopy, incision of bladder neck contracture and placement of ray catheter. Post operative and stable from standpoint. Cont finasteride. will need outpt follow up, due to symptomatic bladder spasms added pyridium 05/10 acute/chronic systolic/diastolic CHF - improved clinically 1mg oral bumex qam. CAD with prior h/o MN - no evidence of ACS at this time. Troponin elevation this admission likely myocardial demand ischemia in the setting of his fever, etc. cardiology consultation has no planned intervention h/o v-tach - has AICD in place. h/o multiple VTE events (DVT and PE) - noted; discussed with coagulation clinic , given event was small will restart coumadin in two weeks and aspirin 05/11 acute kidney injury - resolved. hyponatremia - 2nd to acute kidney injury - resolved. COPD - not in exacerbation at this time. ROSE - continue home CPAP. mild ileus - likely due to his sepsis. Supportive care. DVT proph - SCDs; chemical means contraindicated for now. Continued [facility] stay due to: voiding difficulties, ambulation difficulties, multiple IV medications needed Discharge planning: uncertain
[2017-05-10] MEDS: MoRPHine SULFATE 4 MG/ML 1 ML CARP\\VIAL IV PRN (19:20)
[2017-05-10] MEDS: SENNA 8.6 MG TAB PO SCH (21:32)
[2017-05-10 21:33] VITALS: BP 121/79; PULSE 76; TEMP 36.4; O2SAT 91
[2017-05-10] MEDS: CARVEDILOL 12.5 MG TAB PO SCH (21:35)
[2017-05-10] MEDS: SIMVASTATIN 40 MG TAB PO SCH (21:36)
[2017-05-10] MEDS: LEVOFLOXACIN / D5W 750 MG in PREMIXED IN D5W 150 ML IV SCH (21:50)
[2017-05-10 23:19] VITALS: BP 120/74; PULSE 72; TEMP 36.5; O2SAT 91
[2017-05-11] VITALS (9 sets, daily range): BP systolic 106–136; BP diastolic 68–82; PULSE 67–82; TEMP 36.3–37.2; O2SAT 91–94
[2017-05-11] MEDS: ALBUTEROL HFA 8 GM INHALER INH SCH ×4 (04:00→21:09)
[2017-05-11] MEDS: METOCLOPRAMIDE HCL 5 MG TAB PO SCH ×3 (05:49→21:54)
[2017-05-11] MEDS: MECLIZINE HCL 12.5 MG TAB PO SCH ×2 (05:49→13:19)
[2017-05-11] MEDS: OXYCODONE HCL 10 MG TABCR (OXYCONTIN) PO SCH ×2 (08:47→18:15)
[2017-05-11] MEDS: ASPIRIN 81 MG ECTAB PO SCH (08:48)
[2017-05-11] MEDS: RANITIDINE HCL 150 MG TAB PO SCH ×2 (08:48→21:08)
[2017-05-11] MEDS: BUMETANIDE 1 MG TAB PO SCH (08:49)
[2017-05-11] MEDS: FINASTERIDE 5 MG TAB PO SCH (08:50)
[2017-05-11] MEDS: PANTOprazole SOD 40 MG TAB PO SCH (08:50)
[2017-05-11] MEDS: CARVEDILOL 25 MG TAB PO SCH (08:51)
[2017-05-11] MEDS: DOCUSATE SODIUM 100 MG CAP PO SCH ×2 (08:51→21:08)
[2017-05-11] MEDS: ARTIFICIAL TEARS OP OINT 3.5 GM TUBE OPB SCH (08:53)
[2017-05-11] MEDS: TIOTROPIUM BROMIDE 5 PUFF/90 MCG INH INH SCH (08:53)
--- NOTE | 2017-05-11 09:35 | Progress Note ---
Subjective Date of Service: May 11, 2017. (Hallie Geller CRNP) Subjective Pt evaluation today including: conversation w/ patient, chart review, lab review Voiding: ray catheter in place (patent, draining clear, yellow urine) Pt continues to have some bladder spasms and discomfort. Improved with Pyridium. Continues to feel "woozy" with head movements. (Hallie Geller CRNP) Problem List Medical Problems: (1) Abdominal pain, left lower quadrant Status: Acute (2) Anticoagulated on Coumadin Status: Acute (3) balance problem Status: Acute (4) Biliary colic Status: Acute (5) BPH (benign prostatic hypertrophy) Status: Chronic (6) Coagulopathy Status: Acute (7) CVA (cerebral vascular accident) Status: Acute (8) Depression Status: Chronic (9) Dyspnea Status: Acute (10) Emphysema Status: Chronic (11) Fall Status: Acute (12) Gastrointestinal infection Status: Acute (13) ICH (intracerebral hemorrhage) Status: Acute (14) Intracranial bleed Status: Acute (15) Intractable pain Status: Acute (16) Left arm cellulitis Status: Acute (17) Lightheaded Status: Acute (18) Macular degeneration Status: Chronic (19) NSTEMI (non-ST elevated myocardial infarction) Status: Acute (20) Peripheral neuropathy Status: Chronic (21) Prostatitis Status: Acute (22) Sepsis Status: Acute (23) Sepsis due to urinary tract infection Status: Acute (24) Septic olecranon bursitis of left elbow Status: Acute (25) Sleep apnea Status: Chronic (26) UTI (urinary tract infection) Status: Acute Surgical Problems: (1) AICD (automatic cardioverter/defibrillator) present Status: Chronic (Hallie Geller CRNP) Review of Systems Constitutional: No fever, No chills Respiratory: No shortness of breath Cardiac: No chest pain Abdomen: No pain, No nausea, No vomiting Male : No hematuria Heme: No abnormal bleeding/bruising (Hallie Geller CRNP) Objective Vital Signs Date Time Temp Pulse Resp B/P (MAP) Pulse Ox O2 Delivery O2 Flow Rate FiO2 05/11/17 07:30 36.4 67 18 136/82 (100) 93 05/11/17 04:05 Room Air 05/11/17 03:59 36.3 69 16 111/68 (82) 94 Nasal Cannula 05/11/17 00:05 Room Air 05/10/17 23:19 36.5 72 18 120/74 (89) 91 Room Air 05/10/17 21:33 36.4 76 18 121/79 (93) 91 Room Air 05/10/17 20:05 Room Air 05/10/17 16:00 Room Air 05/10/17 15:01 36.5 80 16 110/65 (80) 91 Room Air 05/10/17 12:00 Room Air 05/10/17 11:25 36.3 80 20 105/67 (80) 91 Room Air (Hallie Geller CRNP) Physical Exam General Appearance: no apparent distress Eyes: normal inspection ENT: hearing grossly normal Neck: no JVD Respiratory/Chest: no respiratory distress, no accessory muscle use Cardiovascular: no JVD Extremities: normal inspection Neurologic/Psychiatric: alert, normal mood/affect, oriented x 3 Skin: normal color (Hallie Geller CRNP) Assessment and Plan POD #4 s/p incision of BNC; prostatitis AFVSS. Continue Levaquin. Would transition to 4 weeks of PO Levaquin prior to d/c home. Will plan to leave ray catheter in place for 2 weeks. Outpatient TOV and f/u with Dr. Perales at that time. Encouraged use of Pyridium for bladder spasms as he felt this was helpful. Pt OK for d/c from [facility] when OK with primary service. Will arrange for outpatient f/u. Recall PRN issues. Thanks for allowing us to participate in this pt's care. Continued [facility] stay due to: voiding difficulties, ambulation difficulties, multiple IV medications needed Discharge planning: uncertain (Hallie Geller CRNP) leave ray per Dr. Perales oxybutinin may cause dizziness (Nav Vang M.D.)
[2017-05-11] MEDS: PHENAZOPYRIDINE HCL 200 MG TAB PO PRN (13:19)
[2017-05-11] MEDS ORDERED: SENNA 8.6 MG TAB PO ONE (14:24)
[2017-05-11] MEDS ORDERED: SCOPOLAMINE 1.5 MG TDSY TD SCH (14:30)
[2017-05-11] MEDS: CHECK SCOPOLAMINE PATCH PLACEMENT SCH ×2 (16:00→23:41)
--- NOTE | 2017-05-11 18:39 | Progress Note ---
Subjective Date of Service: May 11, 2017. Subjective this pt is still mostly concened with vertiginous symptoms, is looking forward to rehab and eventually going home, he has no further complaints of vision issues Problem List Medical Problems: (1) Abdominal pain, left lower quadrant Status: Acute (2) Anticoagulated on Coumadin Status: Acute (3) balance problem Status: Acute (4) Biliary colic Status: Acute (5) BPH (benign prostatic hypertrophy) Status: Chronic (6) Coagulopathy Status: Acute (7) CVA (cerebral vascular accident) Status: Acute (8) Depression Status: Chronic (9) Dyspnea Status: Acute (10) Emphysema Status: Chronic (11) Fall Status: Acute (12) Gastrointestinal infection Status: Acute (13) ICH (intracerebral hemorrhage) Status: Acute (14) Intracranial bleed Status: Acute (15) Intractable pain Status: Acute (16) Left arm cellulitis Status: Acute (17) Lightheaded Status: Acute (18) Macular degeneration Status: Chronic (19) NSTEMI (non-ST elevated myocardial infarction) Status: Acute (20) Peripheral neuropathy Status: Chronic (21) Prostatitis Status: Acute (22) Sepsis Status: Acute (23) Sepsis due to urinary tract infection Status: Acute (24) Septic olecranon bursitis of left elbow Status: Acute (25) Sleep apnea Status: Chronic (26) UTI (urinary tract infection) Status: Acute Surgical Problems: (1) AICD (automatic cardioverter/defibrillator) present Status: Chronic Review of Systems Constitutional: + weakness, No fever, No chills Eyes: No worsening of vision, No eye pain Respiratory: No cough, No shortness of breath Cardiac: No chest pain, No orthopnea, No edema Abdomen: No pain, No nausea, No vomiting, No diarrhea Male : No dysuria, No urinary frequency Neurologic: + balance problems Psychiatric: No depression symptoms, No anhedonism Objective Vital Signs Date Time Temp Pulse Resp B/P (MAP) Pulse Ox O2 Delivery O2 Flow Rate FiO2 05/11/17 16:00 Room Air 05/11/17 15:26 36.4 74 20 106/69 (81) 93 Room Air 05/11/17 12:00 92 Room Air 2.0 05/11/17 11:24 36.4 76 16 117/77 (90) 92 Room Air 05/11/17 08:00 93 Room Air 2.0 05/11/17 07:30 36.4 67 18 136/82 (100) 93 05/11/17 04:05 Room Air 05/11/17 03:59 36.3 69 16 111/68 (82) 94 Nasal Cannula 05/11/17 00:05 Room Air 05/10/17 23:19 36.5 72 18 120/74 (89) 91 Room Air 05/10/17 21:33 36.4 76 18 121/79 (93) 91 Room Air 05/10/17 20:05 Room Air Physical Exam General Appearance: WD/WN, + mild distress Eyes: normal inspection, PERRL, EOMI, sclerae normal Respiratory/Chest: chest non-tender, lungs clear, normal breath sounds Cardiovascular: regular rate, rhythm, no murmur Abdomen: normal bowel sounds, non tender, soft Extremities: no pedal edema, no calf tenderness Neurologic/Psychiatric: alert, oriented x 3 Laboratory Results Last 24 Hours Test 05/11/17 16:21 Bedside Glucose 95 mg/dl Assessment and Plan 72yo male -with fall and small Intracranial hemorrhage, post concussive syndrome and sepsis from e coli prostatitis poa, pt had bladder neck contraction and did require surgery Trace right-sided ICH, post-concussive syndrome continues to be symptomatic with vertigo like symptoms Repeat head CT obtained 05/08 and SAH is essentially resolved. His ICH was from trauma in the setting of a fall w/ head injury. Coumadin has been reversed, will restart aspirin after one week (05/11) and restart coumadin after 2 (05/18) Cont PT, OT will pursue subacute rehab Vertigo likely 2nd to head injury/ich/concussion.no help with meclizine and will try scopolamine will not start benzodiazepines sepsis due to e. coli UTI / prostatitis - urine cx from 05/04/17 sent from [facility] grew 30,000 CFU of e. coli. largely pansensitive (resistant to tetracycline only), continue levaquin IV. urology recommending 4 weeks can transition to po BPH urine retention & obstruction - 2nd to bladder neck obstruction, s/p cystoscopy, incision of bladder neck contracture and placement of ray catheter. Post operative and stable from standpoint. Cont finasteride. will need outpt follow up, due to symptomatic bladder spasms added pyridium 05/10, keep ray with follow up with urology acute/chronic systolic/diastolic CHF - resolved 1mg oral bumex qam. CAD with prior h/o [place] - no evidence of ACS at this time, no chest pain or other anginal symptoms Troponin elevation this admission likely myocardial demand ischemia in the setting of his fever, etc. cardiology consultation has no planned intervention h/o v-tach - has AICD in place. h/o multiple VTE events (DVT and PE) - noted; discussed with coagulation clinic , given event was small will restart coumadin in two weeks and aspirin 05/11 acute kidney injury - resolved. hyponatremia - 2nd to acute kidney injury - resolved. COPD - conintues to not be in exacerbation at this time. ROSE - continue home CPAP. mild ileus - likely due to his sepsis.resolved eating well DVT proph - SCDs; chemical means contraindicated for now. Continued [facility] stay due to: voiding difficulties, ambulation difficulties, multiple IV medications needed Discharge planning: uncertain
[2017-05-11] MEDS: CARVEDILOL 12.5 MG TAB PO SCH (21:08)
[2017-05-11] MEDS: SIMVASTATIN 40 MG TAB PO SCH (21:08)
[2017-05-11] MEDS: SENNA 8.6 MG TAB PO SCH (21:08)
[2017-05-11] MEDS: LEVOFLOXACIN / D5W 750 MG in PREMIXED IN D5W 150 ML IV SCH (21:54)
[2017-05-11] MEDS ORDERED: NURSING VERBAL MED ORDER ONE (23:15)
[2017-05-12 03:10] VITALS: BP 113/70; PULSE 67; TEMP 36.4; O2SAT 94
[2017-05-12] MEDS ORDERED: OXYCODONE HCL 10 MG TABCR (OXYCONTIN) PO SCH (06:00)
[2017-05-12] MEDS: ALBUTEROL HFA 8 GM INHALER INH SCH ×2 (06:01→10:47)
[2017-05-12] MEDS: METOCLOPRAMIDE HCL 5 MG TAB PO SCH ×2 (06:02→13:37)
[2017-05-12 07:44] VITALS: BP 123/76; PULSE 73; TEMP 36.3; O2SAT 90
[2017-05-12] MEDS ORDERED: DTR5 PO (08:09)
[2017-05-12] MEDS ORDERED: OXYC20TA50 PO (08:09)
[2017-05-12] MEDS ORDERED: LEVO-18 PO ×2 (08:09→08:14)
[2017-05-12] MEDS ORDERED: BOAS PR (08:09)
[2017-05-12] MEDS ORDERED: SENN-61 PO (08:09)
[2017-05-12] MEDS ORDERED: SCOP1.5D2 TD (08:09)
--- NOTE | 2017-05-12 08:13 | Discharge Instructions ---
Discharge Instructions Date of Service May 12, 2017. Admission Reason for Admission: Sepsis Due To Uninary Tract Infection Discharge Discharge Diagnosis / Problem: sepsis, uti poa, fall, ICH on coumadin Discharge Goals Goal(s): Diagnostic testing, Therapeutic intervention Activity Recommendations Activity Level: Assistance Required Therapies: Physical Therapy, Occupational Therapy, Speech Therapy . Additional Information Patient informed of condition: Yes Advance Directives: Yes DNR: Yes Level of Care: Skilled Communicable Disease: No Prognosis: Stable Ray Catheter: No Instructions / Follow-Up Instructions / Follow-Up 72yo male -with fall and small Intracranial hemorrhage, post concussive syndrome and sepsis from e coli prostatitis poa, pt had bladder neck contraction and did require surgery Trace right-sided ICH, post-concussive syndrome continues to be symptomatic with vertigo like symptoms Repeat head CT obtained 05/08 and SAH is essentially resolved. His ICH was from trauma in the setting of a fall w/ head injury. Coumadin had been reversed, will restart aspirin after one week (05/11) and restart coumadin after 2 (05/18) Cont PT, OT will pursue subacute rehab Vertigo likely 2nd to head injury/ich/concussion.no help with meclizine and will try scopolamine will not start benzodiazepines sepsis due to e. coli UTI / prostatitis - urine cx from 05/04/17 sent from [facility] clinic grew 30,000 CFU of e. coli. largely pansensitive (resistant to tetracycline only), continue levaquin IV. urology recommending 4 weeks can transition to po BPH urine retention & obstruction - 2nd to bladder neck obstruction, s/p cystoscopy, incision of bladder neck contracture and placement of ray catheter. Post operative and stable from standpoint. Cont finasteride. will need outpt follow up, due to symptomatic bladder spasms added pyridium 05/10, keep ray with follow up with urology acute/chronic systolic/diastolic CHF - resolved 1mg oral bumex qam. CAD with prior h/o [place] - no evidence of ACS at this time, no chest pain or other anginal symptoms Troponin elevation this admission likely myocardial demand ischemia in the setting of his fever, etc. cardiology consultation has no planned intervention h/o v-tach - has AICD in place. h/o multiple VTE events (DVT and PE) - noted; discussed with coagulation clinic , given event was small will restart coumadin in two weeks and aspirin 05/11 acute kidney injury - resolved. hyponatremia - 2nd to acute kidney injury - resolved. COPD - conintues to not be in exacerbation at this time. ROSE - continue home CPAP. mild ileus - likely due to his sepsis.resolved eating well DVT proph - SCDs; chemical means contraindicated for now. Current Hospital Diet Patient's current hospital diet: AHA Diet (Heart Healthy) Discharge Diet Recommended Diet: Regular Diet Procedures Procedures Performed: cystscopy, incision of bladder neck contracture and placement of ray catheter. Pending Studies Studies pending at discharge: no Medical Emergencies . Who to Call and When: Medical Emergencies: If at any time you feel your situation is an emergency, please call 911 immediately. . Non-Emergent Contact Non-Emergency issues call your: Primary Care Provider Call Non-Emergent contact if: temperature is above 101, your pain is unusual for you . . "Provider Documentation" section prepared by Carson Fierro. . Core Measure Problem Core Measures: Stroke Stroke Core Measures Reason no t-PA for Stroke: Contraindicated Reason no antithrom by day 2: Contraindicated Reason no antithrom at D/C: Treatment provided - N/A Reason no statin at D/C: Treatment provided - N/A Reason no anticoag w/a fib: Treatment not indicated
[2017-05-12] MEDS: TIOTROPIUM BROMIDE 5 PUFF/90 MCG INH INH SCH (08:46)
[2017-05-12] MEDS: CHECK SCOPOLAMINE PATCH PLACEMENT SCH (08:46)
[2017-05-12] MEDS: DOCUSATE SODIUM 100 MG CAP PO SCH (08:47)
[2017-05-12] MEDS: PHENAZOPYRIDINE HCL 200 MG TAB PO PRN (08:47)
[2017-05-12] MEDS: ARTIFICIAL TEARS OP OINT 3.5 GM TUBE OPB SCH (08:47)
[2017-05-12] MEDS: FINASTERIDE 5 MG TAB PO SCH (08:47)
[2017-05-12] MEDS: BUMETANIDE 1 MG TAB PO SCH (08:48)
[2017-05-12] MEDS: PANTOprazole SOD 40 MG TAB PO SCH (08:48)
[2017-05-12] MEDS: RANITIDINE HCL 150 MG TAB PO SCH (08:48)
[2017-05-12] MEDS: ASPIRIN 81 MG ECTAB PO SCH (08:49)
[2017-05-12] MEDS: CARVEDILOL 25 MG TAB PO SCH (08:49)
[2017-05-12] MEDS: SENNA 8.6 MG TAB PO SCH (08:49)
[2017-05-12 11:40] VITALS: BP 99/65; PULSE 70; TEMP 36.5; O2SAT 93
[2017-05-12 11:52] VITALS: BP 99/65; PULSE 70; TEMP 36.5; O2SAT 93
--- NOTE | 2017-05-12 19:19 | Discharge Summary ---
Discharge Summary Date of Service May 12, 2017. Discharge Summary Admission Date: May 04, 2017 at 19:38 Discharge Date: May 12, 2017 Discharge Disposition: [facility] facility Principal Diagnosis: sepsis from urine source, ich from closed head injury on coumadin. Problems/Secondary Diagnoses: (1) AICD (automatic cardioverter/defibrillator) present Status: Chronic (2) BPH (benign prostatic hypertrophy) Status: Chronic (3) Depression Status: Chronic (4) Emphysema Status: Chronic (5) Macular degeneration Status: Chronic (6) Peripheral neuropathy Status: Chronic (7) Sleep apnea Status: Chronic Immunizations: Have You Had Influenza Vaccine: Yes Influenza Vaccine Date: Dec 29, 2010 History of Tetanus Vaccine?: Yes Tetanus Immunization Date: Oct 28, 2010 History of Pneumococcal: Yes Pneumococcal Date: Jan 28, 2011 History of Hepatitis B Vaccine: Yes Medication Reconciliation New Medications: Levofloxacin (Levaquin) 750 Mg Tab 1 TAB PO DAILY for 7 Days, #21 TAB Belladonna/Opium (Belladonna Alkaloids & Op 16.2-60 mg) 60 Mg Supp 60 MG DC Q8 PRN for Bladder pain, #10 SUPP Oxybutynin Chloride (Oxybutynin Chloride) 5 Mg Tab 5 MG PO Q8 PRN for Bladder pain, #10 TAB Scopolamine (Transderm-Scop) 1 Mg/3 Days Dis 1.5 MG TD Q72H, #1 PATCH Senna (Senokot) 8.6 Mg Tab 8.6 MG PO BID, #60 TAB Continued Medications: Albuterol Hfa (Ventolin Hfa) 200 Puffs/19501 Mcg Aers 2 PUFFS INH Q6H, #1 INHALER Aluminum/Magnesium/Simeth (Maalox Max Susp) Susp 5 ML PO HS Artificial Tear Ointment (Refresh Lacri-Lube) 1 Oin Oin 1 DROP OPB QAM Aspirin (Aspirin 81) 81 Mg Tab 81 MG PO DAILY Bumetanide (Bumex) 1 Mg Tab 1 MG PO QAM Bupropion HCl (Bupropion HCl) 100 Mg Tab 100 MG BID Carvedilol (Coreg) 25 Mg Tab 12.5 MG PO QPM, TAB Carvedilol (Coreg) 25 Mg Tab 25 MG PO QAM, TAB Docusate Sodium (Docusate Sodium) 100 Mg Tab 100 MG PO BID NOON Ferrous Sulfate (Ferrous Sulfate) 325 Mg Tab 325 MG PO HS TAKE WITH FOOD Finasteride (Proscar) 5 Mg Tab 5 MG PO QAM Folic Acid (Folvite) 1 Mg Tab 1 MG PO QAM, TAB Metoclopramide (Reglan) 10 Mg Tab 5 MG PO Q8, TAB Mometasone Furoate (Nasal) (Mometasone Furoate) 50 Mcg/Act Spr 2 SPRAYS DEB DAILY for Nasal Congestion Oxycodone Hcl (Oxycontin) 20 Mg Tab 0.5 TAB PO BID for 30 Days, #30 TAB (This prescription has been renewed) Pantoprazole (Protonix) 40 Mg Tab 40 MG PO AM/NOON, TAB Potassium Ext Rel (Klor-Con) 20 Meq Tabcr 20 MEQ PO BID, TAB Ranitidine (Zantac) 150 Mg Tab 2 CAP PO HS Simvastatin (Zocor) 80 Mg Tab 40 MG PO QPM, TAB Tiotropium [place] (Spiriva Handihaler) 30 Puff/540 Mcg Aerp 1 CAP INH DAILY, INHALER Discontinued Medications: Emollient (Lubriderm) 1 Lot Lot 1 APPLN TOP Q8 Epinephrine (Epinephrine) 0.3 Mg/0.3 Ml Inj 0.3 MG INJ PRN UD Lisinopril (Zestril) 5 Mg Tab 2.5 MG PO QAM, TAB Lisinopril (Lisinopril) 5 Mg Tab 5 MG PO QPM Nystatin (Topical) (Nystatin) 1 Pow Pow 1 APPLN TOP BID Sennosides (Sennosides) 8.6 Mg Tab 8.6 MG PO HS Warfarin Sod (Coumadin) 5 Mg Tab 5 MG PO 5XWK M,W,F,S,S Warfarin Sod (Jantoven) 5 Mg Tab 2.5 MG PO 2XWK, TAB TUES,THUR Discharge Exam Review of Systems: Constitutional: + weakness, No fever, No chills Neurologic: + weakness, + vertigo, + balance problems, No memory loss Physical Exam: General Appearance: WD/WN, no apparent distress Eyes: normal inspection, sclerae normal Respiratory/Chest: chest non-tender, lungs clear, normal breath sounds Cardiovascular: regular rate, rhythm, no murmur Hospital Course 72yo male -with fall and small Intracranial hemorrhage, post concussive syndrome and sepsis from e coli prostatitis poa, pt had bladder neck contraction and did require surgery Trace right-sided ICH, post-concussive syndrome continues to be symptomatic with vertigo like symptoms Repeat head CT obtained 05/08 and SAH is essentially resolved. His ICH was from trauma in the setting of a fall w/ head injury. Coumadin had been reversed, will restart aspirin after one week (05/11) and restart coumadin after 2 (05/18) Cont PT, OT will pursue subacute rehab Vertigo likely 2nd to head injury/ich/concussion.no help with meclizine and will try scopolamine will not start benzodiazepines sepsis due to e. coli UTI / prostatitis - urine cx from 05/04/17 sent from [facility] grew 30,000 CFU of e. coli. largely pansensitive (resistant to tetracycline only), continue levaquin IV. urology recommending 4 weeks can transition to po BPH urine retention & obstruction - 2nd to bladder neck obstruction, s/p cystoscopy, incision of bladder neck contracture and placement of ray catheter. Post operative and stable from standpoint. Cont finasteride. will need outpt follow up, due to symptomatic bladder spasms added pyridium 05/10, keep ray with follow up with urology acute/chronic systolic/diastolic CHF - resolved 1mg oral bumex qam. CAD with prior h/o [place] - no evidence of ACS at this time, no chest pain or other anginal symptoms Troponin elevation this admission likely myocardial demand ischemia in the setting of his fever, etc. cardiology consultation has no planned intervention h/o v-tach - has AICD in place. h/o multiple VTE events (DVT and PE) - noted; discussed with coagulation clinic , given event was small will restart coumadin in two weeks and aspirin 05/11 acute kidney injury - resolved. hyponatremia - 2nd to acute kidney injury - resolved. COPD - conintues to not be in exacerbation at this time. ROSE - continue home CPAP. mild ileus - likely due to his sepsis.resolved eating well DVT proph - SCDs; chemical means contraindicated for now. Total Time Spent: Greater than 30 minutes This includes examination of the patient, discharge planning, medication reconciliation, and communication with other providers. Discharge Instructions Please refer to the electronic Patient Visit Report (Discharge Instructions) for additional information.
== END 2017-05-12 14:31 | DRG 853 ==
LOC: EDBD 14:22 → C.EDC 14:24 → UNDOADMIN 19:38 → C.MSICU 19:38 → ENRESERV 19:47 → C.MSICU 05-06 21:08 → C.2T 05-06 21:08 → C.MSICU 05-06 21:41 → C.2T 05-06 21:41 → ENRESERV 05-08 14:43 → C.MED 05-08 15:28
PROVIDERS: ADMIT Internal Medicine; ATTEND Internal Medicine
PROC: 0T2BX0Z Change Drainage Device in Bladder, External Approach (ICD-10-PCS; 2017-05-06)
PROC: 0T7C8DZ Dilation of Bladder Neck with Intraluminal Device, Via Natural or Artificial Opening Endoscopic (ICD-10-PCS; 2017-05-07)
PROC: 0T9B80Z Drainage of Bladder with Drainage Device, Via Natural or Artificial Opening Endoscopic (ICD-10-PCS; principal; 2017-05-07 16:00)
PROC: 0TNC8ZZ Release Bladder Neck, Via Natural or Artificial Opening Endoscopic (ICD-10-PCS; principal; 2017-05-07 16:00)
DX: A41.51 Sepsis due to Escherichia coli [E. coli] (principal); S06.360A Traumatic hemorrhage of cerebrum, unspecified, without loss of consciousness, initial encounter; R65.21 Severe sepsis with septic shock; I50.43 Acute on chronic combined systolic (congestive) and diastolic (congestive) heart failure; A09 Infectious gastroenteritis and colitis, unspecified; K56.7 Ileus, unspecified; N17.9 Acute kidney failure, unspecified; I24.8 Other forms of acute ischemic heart disease; N32.0 Bladder-neck obstruction; N41.9 Inflammatory disease of prostate, unspecified; Z95.810 Presence of automatic (implantable) cardiac defibrillator; I25.2 Old myocardial infarction; I25.10 Atherosclerotic heart disease of native coronary artery without angina pectoris; M71.122 Other infective bursitis, left elbow; F32.9 Major depressive disorder, single episode, unspecified; I11.0 Hypertensive heart disease with heart failure; H35.30 Unspecified macular degeneration; F07.81 Postconcussional syndrome; E78.5 Hyperlipidemia, unspecified; G62.9 Polyneuropathy, unspecified; J44.9 Chronic obstructive pulmonary disease, unspecified; Z87.891 Personal history of nicotine dependence; Z95.5 Presence of coronary angioplasty implant and graft; Y92.481 Parking lot as the place of occurrence of the external cause; Z79.01 Long term (current) use of anticoagulants; Y93.01 Activity, walking, marching and hiking; W18.39XA Other fall on same level, initial encounter; Z86.718 Personal history of other venous thrombosis and embolism

== ENCOUNTER → 2017-06-04 | Outpatient (CLI) | payer BC ==
[~2017-06-04] MED LIST changes: +ALUMSUS2 PO; +BOAS PR; +BUME1TAB PO; +CARV25TA2 PO; -CETI10TA84 PO; -CHOL2000 PO; -CMD5 PO; +DTR5 PO; -DXY100 PO; -EMOL-19 TOP; -EPIN0.3I14 INJ; +FERR325T5 PO; +FINA5TAB PO; +LEVO-18 PO; -LISI-729 PO; -LSN5 PO; +METO-157 PO; -METO5TAB2 PO; -NYST1POW7 TOP; -OXYC-738 PO; +OXYC20TA50 PO; +RANI150T85 PO; +SCOP1.5D2 TD; +SENN-61 PO; +SIMV80TA2 PO; -WARF5TAB7 PO; +WLL100; -ZNTT/150 PO
--- NOTE | 2017-06-07 08:11 | DIAGNOSTIC IMAGING REPORT ---
HEAD WITHOUT CONTRAST (CT) CT DOSE: 749.40 mGy.cm HISTORY: Intracranial hemorrhage I60.9 Sub[facility]achnoid hemorrhageat [facility], compare to previous scanCT TECHNIQUE: Multiaxial CT images of the head were performed without the use of intravenous contrast. A dose lowering technique was utilized adhering to the principles of ALARA. Comparison: 05/08/2017 Findings: The paranasal sinuses and mastoid air cells are clear. The calvarium and skull base are intact. The ventricles and sulci are within normal limits. There is no mass, hematoma, midline shift, or acute infarct. The foci of slightly increased density right superior parietal lobe has resolved. There is no evidence of this time for acute intracranial hemorrhage. Ventricular system is midline. There is a small old left occipital infarct with minimal chronic small vessel change of aging. Impression: This study has reverted to a baseline appearance with no intracranial acute abnormality at this time The above report was generated using voice recognition software. It may contain grammatical, syntax or spelling errors. Electronically signed by: Junior Rosas M.D. 06/04/2017 4:24 PM Dictated Date/Time: 06/04/2017 4:22 PM
== END | disposition home or self-care (01) ==
LOC: C.CTS 15:58
PROVIDERS: ATTEND Physician Assistant
DX: I60.9 Nontraumatic subarachnoid hemorrhage, unspecified (principal)

== ENCOUNTER → 2017-06-09 | Outpatient (CLI) | payer BC ==
[~2017-06-09] MED LIST changes: +CMD/25 PO; +EPP3/2 IM; +LISI-729 PO; +NYSTATIN POWDER TP; +OXYC1TAB3 PO; +PHEN-774 PO; +POTA-639 PO; -POTA20TA16 PO; +SENN-63 PO; +WARF5TAB7 PO; +inhaler
== END | disposition home or self-care (01) ==
LOC: C.LABSPEC 17:19
PROVIDERS: ATTEND Urology
DX: N39.0 Urinary tract infection, site not specified (principal)

== ENCOUNTER → 2017-07-12 | Outpatient (CLI) | payer BC ==
[~2017-07-12] MED LIST changes: -CMD/25 PO; -EPP3/2 IM; -LISI-729 PO; -NYSTATIN POWDER TP; -OXYC1TAB3 PO; -PHEN-774 PO; -POTA-639 PO; +POTA20TA16 PO; -SENN-63 PO; -WARF5TAB7 PO; -inhaler
[2017-07-12 12:55] LABS: BLOOD UREA NITROGEN 15 mg/dl (7-18); CREATININE 1.06 mg/dl (0.60-1.40)
--- NOTE | 2017-07-12 12:56 | DIAGNOSTIC IMAGING REPORT ---
KUB CLINICAL HISTORY: 72 years-old Male presenting with N20.0 [id number]. TECHNIQUE: Single supine view of the abdomen was obtained. COMPARISON: 05/06/2017. FINDINGS: Nonobstructive bowel gas pattern. No gross pneumoperitoneum. Surgical clips project over the epigastrium. Right renal calculus unchanged. No radiographic evidence of ureteral calculi. Multiple pelvic phleboliths unchanged in distribution. Osseous structures normal. Lung bases clear. IMPRESSION: 1. Unchanged right renal calculus. Electronically signed by: Nathan Urban M.D. 07/12/2017 12:55 PM Dictated Date/Time: 07/12/2017 12:53 PM
== END | disposition home or self-care (01) ==
LOC: C.RAD 10:23
PROVIDERS: ATTEND Urology
DX: N20.0 Calculus of kidney (principal)

== ENCOUNTER → 2017-08-05 | Day surgery (SDC) | payer BC ==
[2017-07-23 13:11] VITALS: Ht 180.3 cm; Wt 92.2 kg
--- NOTE | 2017-07-23 13:39 | PAT Medication Instructions ---
Service Date Jul 23, 2017. Current Home Medication List Albuterol Hfa (Ventolin Hfa), 2 PUFFS INH Q6H Aluminum/Magnesium/Simeth (Maalox Max Susp), 5 ML PO AM/HS Artificial Tear Ointment (Refresh Lacri-Lube), 1 DOSE OPB HS Aspirin (Aspirin 81), 81 MG PO QAM Bumetanide (Bumex), 1 MG PO QAM Bupropion HCl (Bupropion HCl), 100 MG BID Carvedilol (Coreg), 12.5 MG PO QPM Carvedilol (Coreg), 25 MG PO QAM Docusate Sodium (Docusate Sodium), 100 MG PO BID Epinephrine (Epipen), 0.3 MG IM UD Ferrous Sulfate (Ferrous Sulfate), 325 MG PO HS Finasteride (Proscar), 5 MG PO QAM Folic Acid (Folvite), 1 MG PO QAM Lisinopril (Zestril), 5 MG PO QPM Lisinopril (Zestril), 2.5 MG PO QAM Metoclopramide (Reglan), 5-10 MG PO BID Mometasone Furoate (Nasal) (Mometasone Furoate), 2 SPRAYS DEB BID Oxycodone Immediate Rel Tab (Roxicodone Ir), 1-2 TAB PO Q12H Oxycodone Immediate Rel Tab (Roxicodone Ir), 5 MG PO Q4H PRN for Severe Pain Pantoprazole (Protonix), 40 MG PO AM/NOON Potassium Ext Rel (Klor-Con), 20 MEQ PO BID Ranitidine (Zantac), 2 CAP PO HS Scopolamine (Transderm-Scop), 3 MG TD Q72H Sennosides (Senokot), 2 TAB PO HS Simvastatin (Zocor), 40 MG PO QPM Tiotropium [place] (Spiriva Handihaler), 1 CAP INH QAM Warfarin Sod (Coumadin), 2.5 MG PO TUES/THURS Warfarin Sod (Jantoven), 5 MG PO 5XWEEK [Nystatin Powder], 1 DOSE TP PRN Medication Instructions For Your Scheduled Surgery -Contact 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 for instructions for: Aspirin (Aspirin 81), 81 MG PO QAM -Continue as directed: Epinephrine (Epipen), 0.3 MG IM UD Scopolamine (Transderm-Scop), 3 MG TD Q72H -Contact your prescriber for instructions for: Warfarin Sod (Coumadin), 2.5 MG PO TUES/THURS Warfarin Sod (Jantoven), 5 MG PO 5XWEEK - Hold the following medications the night before and the morning of surgery: Lisinopril (Zestril), 5 MG PO QPM Lisinopril (Zestril), 2.5 MG PO QAM - Hold the following medications 24 hours prior to surgery: [Nystatin Powder], 1 DOSE TP PRN - Hold the following medications the morning of surgery: Aluminum/Magnesium/Simeth (Maalox Max Susp), 5 ML PO AM/HS Bumetanide (Bumex), 1 MG PO QAM Docusate Sodium (Docusate Sodium), 100 MG PO BID Finasteride (Proscar), 5 MG PO QAM Folic Acid (Folvite), 1 MG PO QAM Metoclopramide (Reglan), 5-10 MG PO BID Potassium Ext Rel (Klor-Con), 20 MEQ PO BID - Take the following medications the morning of surgery with a sip of water: Albuterol Hfa (Ventolin Hfa), 2 PUFFS INH Q6H Bupropion HCl (Bupropion HCl), 100 MG BID Carvedilol (Coreg), 25 MG PO QAM Mometasone Furoate (Nasal) (Mometasone Furoate), 2 SPRAYS DEB BID Oxycodone Immediate Rel Tab (Roxicodone Ir), 1-2 TAB PO Q12H (can be taken up to four hours before surgery) Oxycodone Immediate Rel Tab (Roxicodone Ir), 5 MG PO Q4H PRN for Severe Pain ( if needed, can be taken up to four hours before surgery) Pantoprazole (Protonix), 40 MG PO AM/NOON Tiotropium [place] (Spiriva Handihaler), 1 CAP INH QAM - Take the following medications as scheduled the night before surgery: Albuterol Hfa (Ventolin Hfa), 2 PUFFS INH Q6H Aluminum/Magnesium/Simeth (Maalox Max Susp), 5 ML PO AM/HS Artificial Tear Ointment (Refresh Lacri-Lube), 1 DOSE OPB HS Bupropion HCl (Bupropion HCl), 100 MG BID Carvedilol (Coreg), 12.5 MG PO QPM Docusate Sodium (Docusate Sodium), 100 MG PO BID Ferrous Sulfate (Ferrous Sulfate), 325 MG PO HS Metoclopramide (Reglan), 5-10 MG PO BID Mometasone Furoate (Nasal) (Mometasone Furoate), 2 SPRAYS DEB BID Oxycodone Immediate Rel Tab (Roxicodone Ir), 1-2 TAB PO Q12H Oxycodone Immediate Rel Tab (Roxicodone Ir), 5 MG PO Q4H PRN for Severe Pain ( if needed) Pantoprazole (Protonix), 40 MG PO AM/NOON Potassium Ext Rel (Klor-Con), 20 MEQ PO BID Ranitidine (Zantac), 2 CAP PO HS Sennosides (Senokot), 2 TAB PO HS Simvastatin (Zocor), 40 MG PO QPM If you have any questions please call us at [phone] or [phone] or [phone]
--- NOTE | 2017-07-23 14:37 | DIAGNOSTIC IMAGING REPORT ---
CHEST 2 VIEWS ROUTINE CLINICAL HISTORY: recent CHF, pre-op COMPARISON STUDY: 05/07/2017 FINDINGS: The heart is enlarged. There is a left subclavian pacer/defibrillator present. There is aortic tortuosity/ectasia. There is a retrocardiac opacity consistent with a hiatal hernia. There is no focal pulmonary consolidation. There is been resolution of the preceding described failure. There are no significant pleural effusions.[ IMPRESSION: Cardiomegaly. No active disease in the chest. Electronically signed by: Darell Nichols M.D. 07/23/2017 2:36 PM Dictated Date/Time: 07/23/2017 2:35 PM
[2017-07-23 16:00] LABS: BASO % 0.3 %; BASO ABS # 0.02 K/uL (0-0.2); EOS % 12.2 %; HEMATOCRIT 40.4 % (42-52); HEMOGLOBIN 14.5 g/dL (14.0-18.0); IG# 0.04 K/uL (0.00-0.02); LYMPH % 28.7 %; LYMPH ABS # 2.12 K/uL (1.2-3.4); MEAN CORPUSCULAR HEMOGLOBIN 31.6 pg (25-34); MEAN CORPUSCULAR HGB CONC 35.9 g/dl (32-36); MEAN PLATELET VOLUME 10.4 fL (7.4-10.4); MONO % 11.1 %; MONO ABS # 0.82 K/uL (0.11-0.59); NEUT % 47.2 %; NEUT ABS # 3.49 K/uL (1.4-6.5); PLATELET COUNT 259 K/uL (130-400); RED CELL DISTRIBUTION WIDTH CV 13.6 % (11.5-14.5); RED CELL DISTRIBUTION WIDTH SD 43.8 fL (36.4-46.3); WHITE BLOOD COUNT 7.39 K/uL (4.8-10.8)
[2017-07-23 16:16] LABS: CALCIUM 9.3 mg/dl (8.5-10.1); CREATININE 1.07 mg/dl (0.60-1.40); POTASSIUM 4.1 mmol/L (3.5-5.1)
[~2017-08-05] VITALS: Ht 180.3 cm; Wt 92.2 kg
[~2017-08-05] MED LIST changes: +ATROPINE SULFATE 0.1 MG/ML 5ML SYR IV PRN; +BELLADONNA/OPIUM SUPP 60 MG SUPP PR ONE; -BOAS PR; +CIPROFLOXACIN / D5W 400 MG IV SCH; +CMD/25 PO; +Cysto-Conray II 17.2% 250ML BOTTLE ONE; -DTR5 PO; +EPP3/2 IM; +EpHEDrine SULFATE INJ 50 MG/ML AMP IV PRN; +FENTANYL CITRATE INJ 50 MCG/1 ML 2 ML VIAL IV PRN; +FENTANYL CITRATE INJ 50 MCG/1 ML 2 ML VIAL ONE; +LACTATED RINGER'S 1000ML 1,000 ML IV SCH; -LEVO-18 PO; +LISI-729 PO; +MIDAZOLAM HCL 1 MG/ML 2ML VIAL ONE; +NYSTATIN POWDER TP; +ONDANSETRON INJ 2 MG/ML 2 ML VIAL IV PRN; +OXYC1TAB3 PO; -OXYC20TA50 PO; +OXYCODONE/ACETAMINOPHEN 5-325 TAB PO PRN; +PHEN-774 PO; +PHENAZOPYRIDINE HCL 100 MG TAB PO PRN; +PHENAZOPYRIDINE HCL 200 MG TAB PO PRN; +PHENYLEPHRINE HCL INJ 10 MG/ML VIAL ONE; +POTA-639 PO; -POTA20TA16 PO; +PROPOFOL IV EMULSION 10 MG/ML 20 ML VIAL IV ONE; -SENN-61 PO; +SENN-63 PO; +WARF5TAB7 PO; +inhaler
[2017-08-05 07:54] VITALS: BP 132/76; PULSE 67; TEMP 36.4; O2SAT 94
[2017-08-05 08:05] LABS: PTT PATIENT 25.2 SECONDS (21.0-31.0)
--- NOTE | 2017-08-05 09:12 | Discharge Instructions ---
Discharge Instructions Date of Service Aug 05, 2017. Admission Reason for Admission: Bladder Neck Contracture Discharge Discharge Diagnosis / Problem: Bladder neck contracture s/p resection Discharge Goals Goal(s): Improve function, Therapeutic intervention Activity Recommendations Activity Limitations: as noted below Lifting Limitations: no more than 25 pounds, gradually increase as tolerated Exercise/Sports Limitations: rest today, gradually increase as tolerated May Resume Sexual Activity: after follow-up appointment Shower/Bathe: tomorrow (no tub bath with ray in place) . Instructions / Follow-Up Instructions / Follow-Up As scheduled in office for ray removal and postoperative visit as scheduled. Current Hospital Diet Patient's current hospital diet: Discharge Diet Recommended Diet: Regular Diet (good fluid intake) Procedures Procedures Performed: Cystoscopy, meatal dilation, transurethral resection and incision of bladder neck contracture. Pending Studies Studies pending at discharge: yes List of pending studies: Pathology check Medical Emergencies . Who to Call and When: Medical Emergencies: If at any time you feel your situation is an emergency, please call 911 immediately. . Non-Emergent Contact Non-Emergency issues call your: Urologist Call Non-Emergent contact if: you have a fever, temperature is above 101, your pain is not controlled, your pain is worsening, your pain is unusual for you, your pain is concerning you, you have any medication questions . . "Provider Documentation" section prepared by Bird Perales. .
--- NOTE | 2017-08-05 09:46 | [facility] Operative Report ---
Operative Report Operative Date Aug 05, 2017. Pre-Operative Diagnosis Bladder Neck Contracture Post-Operative Diagnosis Bladder neck contracture, meatal stenosis Procedure(s) Performed Cystoscopy, Meatal Dilation, Transurethral Resection and Incision Bladder Neck Contracture Surgeon Dr. Bird Perales Clinical Staff Anesthesiologist Surgeon(s) None per surgeon Estimated Blood Loss 0 cc Findings Open bladder neck after incision, excellent hemostasis. Specimens A: bladder neck chips Drains 20 [place] with 10 cc of sterile water in the balloon Anesthesia Type General Complication(s) none Disposition no Recovery Room / PACU Indications 72-year-old male status post TURP 1 year ago with recurrent voiding symptoms found to have a bladder neck contracture on office cystoscopy. He is here today for resection of his bladder neck contracture. Please see H&P for further details. Intravenous ciprofloxacin is been provided for antibiotic coverage and SCDs used for DVT prophylaxis. Description of Procedure Patient was properly identified and brought into the operative suite after identification for proper consent of the chart. Anesthesia with laryngeal mask was initiated and the patient was prepped and draped in standard fashion for this procedure. Full timeout procedure was followed. Meatus was dilated up to 28 Dutch caliber due to some resistance to the passage of the resectoscope. A 26 Dutch rigid resectoscope with visual obturator was then able to be passed up to the level of the bladder neck contracture is appreciated on office cystoscopy. Bipolar loop was used to resect this between the 5 and 7 o'clock position. Care was taken to avoid any injury to the ureteral orifices or structures within the bladder. After this was complete the resectoscope was able to be passed into the bladder which was surveyed demonstrating no evidence of intravesical tumor, calculi or mucosal changes. Resected tissue chips were sent for pathologic analysis. After this was completed Damon knife was used to extend the incision and hopefully avoid future recurrences of patient's bladder neck contracture. Excellent hemostasis from the site of incision was noted with no evidence of bladder injury. Ureteral orifices were noted to be intact and effluxing clear yellow urine after completion of the case. Bladder was partially distended and resectoscope was removed. 20 [place] catheter was placed with 10 cc of sterile water in the balloon and drainage of clear urine. Belladonna and opium suppository was provided for additional postoperative analgesia. Anesthesia was reversed and patient was transferred to the recovery room in stable condition. Follow-up instructions: Patient has ciprofloxacin at home which she may take for postoperative coverage. He takes chronic narcotics for pain and can continue to use those for discomfort. Pyridium provided for bladder irritation. Outpatient appointment for trial of void and postoperative check are confirmed. Patient is instructed to contact our office should he note any fevers, chills, nausea, vomiting or difficulties in the postoperative period. I attest to the content of the Intraoperative Record and any orders documented therein. Any exceptions are noted below.
[2017-08-05] MEDS: FENTANYL CITRATE INJ 50 MCG/1 ML 2 ML VIAL IV PRN ×2 (10:08→10:13)
--- NOTE | 2017-08-05 10:35 | Anesthesiology Progress Note ---
Anesthesia Post Op Note Date & Time Aug 05, 2017 at 10:35 Vital Signs Pain Intensity: 2 Vital Signs Past 12 Hours Date Time Temp Pulse Resp B/P (MAP) Pulse Ox O2 Delivery O2 Flow Rate FiO2 08/05/17 10:23 63 15 08/05/17 10:23 64 15 95 08/05/17 10:20 109/81 08/05/17 10:18 66 15 08/05/17 10:18 65 15 98 08/05/17 10:16 106/72 08/05/17 10:13 63 15 08/05/17 10:13 62 15 98 08/05/17 10:11 110/67 08/05/17 10:08 63 17 99 08/05/17 10:08 61 17 08/05/17 10:05 112/70 08/05/17 10:03 63 16 102/69 99 08/05/17 10:03 63 16 08/05/17 10:03 36.0 66 16 102/69 (78) 99 Oxymask 10 08/05/17 07:54 36.4 67 18 132/76 (94) 94 Room Air Notes Mental Status: alert / awake / arousable, participated in evaluation Pt Amnestic to Procedure: Yes Nausea / Vomiting: adequately controlled Pain: adequately controlled Airway Patency, RR, SpO2: stable & adequate BP & HR: stable & adequate Hydration State: stable & adequate Anesthetic Complications: no major complications apparent
[2017-08-05 10:55] VITALS: BP 111/69; PULSE 71; TEMP 36.5; O2SAT 93
[2017-08-05 11:25] VITALS: BP 114/68; PULSE 78; TEMP 36.6; O2SAT 96
== END | disposition home or self-care (01) ==
LOC: C.ACU 07:14
PROVIDERS: ATTEND Urology
DX: N32.0 Bladder-neck obstruction (principal); N41.9 Inflammatory disease of prostate, unspecified; N40.1 Benign prostatic hyperplasia with lower urinary tract symptoms; I21.19 ST elevation (STEMI) myocardial infarction involving other coronary artery of inferior wall; Z79.01 Long term (current) use of anticoagulants; G47.33 Obstructive sleep apnea (adult) (pediatric); M19.90 Unspecified osteoarthritis, unspecified site; I25.10 Atherosclerotic heart disease of native coronary artery without angina pectoris; I50.22 Chronic systolic (congestive) heart failure; I25.5 Ischemic cardiomyopathy; I25.2 Old myocardial infarction; J44.9 Chronic obstructive pulmonary disease, unspecified; H54.7 Unspecified visual loss; F32.9 Major depressive disorder, single episode, unspecified; R25.1 Tremor, unspecified; E78.5 Hyperlipidemia, unspecified; N18.9 Chronic kidney disease, unspecified; K21.9 Gastro-esophageal reflux disease without esophagitis; I12.9 Hypertensive chronic kidney disease with stage 1 through stage 4 chronic kidney disease, or unspecified chronic kidney disease; Z95.810 Presence of automatic (implantable) cardiac defibrillator; Z87.01 Personal history of pneumonia (recurrent); Z86.711 Personal history of pulmonary embolism; Z86.73 Personal history of transient ischemic attack (TIA), and cerebral infarction without residual deficits; Z90.49 Acquired absence of other specified parts of digestive tract; Z82.49 Family history of ischemic heart disease and other diseases of the circulatory system; Z87.891 Personal history of nicotine dependence; Z95.5 Presence of coronary angioplasty implant and graft; Z80.3 Family history of malignant neoplasm of breast; Z79.82 Long term (current) use of aspirin; Z79.899 Other long term (current) drug therapy; Z88.0 Allergy status to penicillin; Z88.4 Allergy status to anesthetic agent; Z91.030 Bee allergy status; Z87.442 Personal history of urinary calculi; Z88.5 Allergy status to narcotic agent; Z99.89 Dependence on other enabling machines and devices; Z86.718 Personal history of other venous thrombosis and embolism

== ENCOUNTER → 2017-08-17 | Outpatient (CLI) | payer BC ==
[~2017-08-17] MED LIST changes: -ATROPINE SULFATE 0.1 MG/ML 5ML SYR IV PRN; -BELLADONNA/OPIUM SUPP 60 MG SUPP PR ONE; -CIPROFLOXACIN / D5W 400 MG IV SCH; -Cysto-Conray II 17.2% 250ML BOTTLE ONE; -EpHEDrine SULFATE INJ 50 MG/ML AMP IV PRN; -FENTANYL CITRATE INJ 50 MCG/1 ML 2 ML VIAL IV PRN; -FENTANYL CITRATE INJ 50 MCG/1 ML 2 ML VIAL ONE; -LACTATED RINGER'S 1000ML 1,000 ML IV SCH; -MIDAZOLAM HCL 1 MG/ML 2ML VIAL ONE; -ONDANSETRON INJ 2 MG/ML 2 ML VIAL IV PRN; -OXYCODONE/ACETAMINOPHEN 5-325 TAB PO PRN; -PHEN-774 PO; -PHENAZOPYRIDINE HCL 100 MG TAB PO PRN; -PHENAZOPYRIDINE HCL 200 MG TAB PO PRN; -PHENYLEPHRINE HCL INJ 10 MG/ML VIAL ONE; -PROPOFOL IV EMULSION 10 MG/ML 20 ML VIAL IV ONE; -SPRIN/30 INH
== END | disposition home or self-care (01) ==
LOC: C.LABSPEC 17:00
PROVIDERS: ATTEND Urology
DX: N41.9 Inflammatory disease of prostate, unspecified (principal); R35.1 Nocturia

== ENCOUNTER 2023-02-23 08:54 | Inpatient (IN) ==
[2023-02-23] MEDS ORDERED: ACETAMINOPHEN 1,000 MG/100 ML VIAL IV STA (09:17)
[2023-02-23 09:34] LABS: Base Excess VBG -7.6 mEq/L; HCO3 VBG 16 mmol/L; PCO2 VBG 27 mmHg (38-50); PO2 VBG 52 mmHg; pH VBG 7.38 (7.36-7.41)
[2023-02-23] MEDS ORDERED: VANCOMYCIN HCL 2,750 MG in SODIUM CHLORIDE 0.9% 500 ML IV ONE (09:34)
[2023-02-23] MEDS ORDERED: CEFEPIME 2,000 MG/20 ML VIAL IV STA (09:34)
[2023-02-23] MEDS ORDERED: VANCOMYCIN CONSULT ACTIVE PRN ×2 (09:34→12:11)
--- NOTE | 2023-02-23 09:38 | Emergency Department Note ---
Impression & Plan Sepsis, Pneumonia, Acute UTI, Acute kidney failure, Ischemic cardiomyopathy, Chronic systolic congestive heart failure, Acute respiratory failure with hypoxia, Elevated troponin ED Provider Note NAME: ZIGGY DEUTSCH AGE: 78 SEX: M ARRIVES VIA: Ambulance INFORMANT: Patient ED PROVIDER(S): Uday Retana MD CHIEF COMPLAINT: SOB, weakness PLAN: Disposition: Admit MEDICAL DECISION MAKING: The patient is a pleasant 78-year-old gentleman with a past medical history of ischemic cardiomyopathy, status post AICD, atrial fibrillation, CAD, hypertension, BPH who presents to the emergency department via EMS for worsening generalized weakness with feverishness and chills, body aches which began last night where the patient could not not ambulate to the bathroom on his own last night and had to crawl. He denies any recent sick contacts. He denies any chest pain but does feel short of breath. He was noted to be hypoxic by EMS. On arrival to the emergency department the patient is ill-appearing, febrile, hypotensive in the 70s/40s , HR 100s but mentating normally, patient's O2 saturation was in the 70s per EMS prior to arrival on room air now on nonrebrea ther at 100% O2 with O2 saturation 92-96%. He appears clinically dry with skin mottling, cool to touch and clammy. Capillary refill is 3+ seconds. I personally performed a limited bedside heart ultrasound which demonstrated the patient's known systolic heart failure. Note is made of a collapsed IVC and so given patient's clinically dry appearance without edema of lower extremities or overt pulmonary edema suspect hypotension related to component of hypovolemia. EKG is paced without overt acute ischemia. Chest x-ray demonstrates cardiomegaly with trace pleural effusion left base and bibasilar densities per my preliminary review/interpretation. Similarly described by radiology. WBC 19 K with neutrophil predominance and left shift. H/H similar to prior. Platelets within normal limits. INR 2.5, therapeutic. PCO2 27 with normal pH and so component of respiratory compensation for metabolic acidosis with bicarbonate of 15 and anion gap of 17. Creatinine is 1.59 slightly increased from prior reflecting MERT. Lactic acid 8.7 with replete pending following IV fluid hydration. Electrolytes without significant abnormality otherwise. LFTs unremarkable. High-sensitivity troponin 142, nonspecific. BNP 450 in the setting of known systolic heart failure and nonspecific. Lipase is normal. Procalcitonin is not elevated. TSH within normal limits. UA is suggestive of infection with WBCs and 1+ bacteria albeit with epithelial cells present. Respiratory BioFire was negative. CT of the chest and abdomen pelvis performed. Findings demonstrate likely pneumonia/aspiration with dense airspace consolidation of bilateral lung bases and stranding within the pelvis suggestive of cystitis. Patient was managed for sepsis on arrival given his presentation. Blood cultures were obtained and empiric antibiotics with cefepime and vancomycin initiated. The patient received IV fluid hydration with 1500 cc of fluid/NSS with caution with 30 cc/kg deferred given the patient's known history of systolic heart failure. Levophed ordered to the bedside for blood pressure support though he did tolerate initial IV fluid administration. Case was discussed with Dr. Iniguez, [facility] hospitalist, who will evaluate the patient for admission. Further management per admitting team. Triage Nursing notes reviewed and agree them. Prior/external medical records reviewed Vital Signs: reviewed Differential diagnosis: Sepsis, UTI, pneumonia, metabolic, electrolyte abnormalities, cardiac sources, intracerebral event, toxicologic, neurologic, as well as other pathologies. ER treatment provided: See below. Diagnostics interpreted by me: ECG: Ventricular paced rhythm, 103 bpm, no ectopy, no overt acute ischemia Cardiac Monitoring: An order for continuous cardiac monitoring was placed and demonstrated Ventricular paced rhythm, 103 bpm, no ectopy. Laboratory studies: See below Imaging studies: See below Consultation(s): Case was discussed with Dr. Iniguez, [facility] hospitalist, who will evaluate the patient for admission. HPI: The patient is a pleasant 78-year-old gentleman with a past medical history of ischemic cardiomyopathy, status post AICD, atrial fibrillation, CAD, hypertension, BPH who presents to the emergency department via EMS for worsening generalized weakness with feverishness and chills, body aches which began last night where the patient could not not ambulate to the bathroom on his own last night and had to crawl. He denies any recent sick contacts. He denies any chest pain but does feel short of breath. He was noted to be hypoxic by EMS. ROS: See above HPI for pertinent positives & negatives. A total of 10 systems reviewed and were otherwise negative. VITALS:See Below PHYSICAL EXAMINATION: GENERAL: Awake, alert, ill-appearing, in no distress HENT: Normocephalic, atraumatic. Oropharynx with dry-cracked MM. EYES: Normal conjunctiva. Sclera non-icteric. NECK: Supple. No nuchal rigidity. FROM. No JVD. RESPIRATORY: Rhonchi of bilateral lower lung paul and otherwise clear apically. CARDIAC: Tachycardic rate, normal rhythm. Extremities warm and well perfused. Pulses equal. ABDOMEN: Soft, non-distended. No tenderness to palpation. No rebound or guarding. No masses. RECTAL: Deferred. MUSCULOSKELETAL: Chest examination reveals no tenderness. The back is symmetrical on inspection without obvious abnormality. There is no CVA tenderness to palpation. No joint edema. LOWER EXTREMITIES: Calves are equal size bilaterally and non-tender. No edema. No discoloration. NEURO: Normal sensorium. No sensory or motor deficits noted. SKIN: No rash or jaundice noted. Skin is cool, clammy and mottled with capillary refill 3+. ED COURSE: Critical Care: I have personally spent greater than 65 minutes of critical care time in the direct management of this patient. This includes bedside care, interpretation of diagnostic studies, and testing, discussion with consultants, patient, and family members, and other required patient management activities. This 65 minutes is in excess of all separately billable procedures. Uday Retana MD Past Med/Surg History Medical History Asthma inhaler prn Atherogenic dyslipidemia Atrial fibrillation on warfarin--follows with Dr. Abreu Balance problem BPH loc w urin obs/LUTS CAD (coronary artery disease) s/p stent 2010 Cervicogenic headache Chronic back pain Chronic systolic congestive heart failure EF 25-30% Depression Elevated PSA Emphysema lung Hearing deficit History of DVT of lower extremity 2010 History of kidney stones History of urinary self-catheterization self caths every other night Ischemic cardiomyopathy Euvolemic at 11/23/22 cardio appt Legally blind Macular degeneration Migraine Myocardial Infarction 10/2010--follows with Dr. Abreu Presence of combination internal cardiac defibrillator (ICD) and pacemaker first placed 2010 @ [facility] replaced in 2014 & 2021 @ [facility]--biventricular MEDTRONIC. reports last check 11/25/22. Pulmonary embolism 1992 and 2010 after heart attack--follows with Dr. Abreu Sleep apnea bipap Spasticity upper limbs Warfarin anticoagulation Surgical History History of bilateral cataract extraction History of cardiac cath 10/2010 @ [facility]--1 stent placed History of cholecystectomy History of colonoscopy with polypectomy History of cystoscopy multiple History of esophagogastroduodenoscopy (EGD) History of eye surgery right--macular degeneration History of foot surgery plantar fasciitis History of Khari fundoplication History of open reduction and internal fixation (ORIF) procedure left foot--hardware removed History of prostate biopsy x3--precancerous, just monitoring for now History of prostate surgery 07/2016--[facility] prostate vaproization History of right inguinal hernia repair x3 History of tooth extraction S/P epidural steroid injection Family History Son Family history of diabetes mellitus Other Family history non-contributory No family history of adverse response to anesthesia Social History Smoking Status: Former smoker Second Hand Exposure: Yes (father smoked); Do You Dip or Chew Tobacco: No; Hx Alcohol Use: No Hx Substance Use: No Preferred Language: Swedish Communication Ability: Effective Natural [employer] Inspector Required: No Beliefs That Will Affect Care: None marital status: Current Living Situation: Spouse current occupational status: retired Other Information That Helps Us Care for You: No Feels Safe at Home: Yes Safety Concerns: Feels Safe At This Time Assistive Devices: BiPap, Cane, Denture - Upper, Denture - Lower, Glasses and Special Shoe Allergies Allergies Allergy/AdvReac Type Severity Reaction Status Date / Time bee venom protein (honey bee) Allergy Severe SWELLING, Verified 01/05/23 12:58 SOB Penicillins Allergy Severe SWELLING, Verified 01/05/23 12:58 DIFFICULTY BREATHING lidocaine Allergy Mild RASH Verified 01/05/23 12:58 hydrocodone AdvReac Mild nausea Verified 01/05/23 12:58 oxycodone AdvReac Mild nausea-SLOW Verified 01/05/23 12:58 RELEASE IS OK Home Meds Home Medications Medication Instructions Recorded Confirmed albuterol sulfate 90 mcg/actuation 2 puffs inhalation Q6H PRN 12/01/18 02/23/23 aerosol inhaler Shortness Of Breath Or Wheezing bupropion HCl 100 mg tablet 100 mg PO BID 12/01/18 02/23/23 docusate sodium 100 mg capsule 100 mg PO BID 12/01/18 02/23/23 epinephrine 0.3 mg/0.3 mL 0.3 ml IM DIRECTED PRN 12/01/18 02/23/23 injection, auto-injector Anaphylaxis finasteride 5 mg tablet 5 mg PO QAM 12/01/18 02/23/23 aspirin 81 mg tablet,delayed 81 mg PO QAM 12/21/18 02/23/23 release mometasone 50 mcg/actuation nasal 2 spray intranasal BID 12/21/18 02/23/23 spray (Nasonex) oxycodone 10 mg tablet 10 mg PO Q12H 12/21/18 02/23/23 sennosides 8.6 mg tablet 8.6 mg PO BID 12/21/18 02/23/23 warfarin 5 mg tablet 2.5 mg PO . @TUES, THURS 12/21/18 02/23/23 white petrolatum-mineral oil 56.8 1 applic ophthalmic (eye) HS 12/21/18 02/23/23 %-42.5 % eye ointment (Refresh Lacri-Lube) metoclopramide HCl 10 mg tablet 10 mg PO Q8H 09/04/19 02/23/23 cetirizine 10 mg capsule 10 mg PO HS 11/06/19 02/23/23 bumetanide 1 mg tablet 1 mg PO QAM 02/29/20 02/23/23 sacubitril 49 mg-valsartan 51 mg 1 tab PO BID 11/25/20 02/23/23 tablet pantoprazole 40 mg tablet,delayed 80 mg PO .@NOON 03/10/21 02/23/23 release rosuvastatin 10 mg tablet (Crestor) 10 mg PO QPM 12/03/21 02/23/23 pramipexole 0.375 mg 0.375 mg PO QAM 12/02/22 02/23/23 tablet,extended release 24 hr (Mirapex ER) tiotropium 2.5 mcg-olodaterol 2.5 2 puff inhalation QAM 12/02/22 02/23/23 mcg/actuation mist for inhalation (Stiolto Respimat) lanolin-mineral oil-NaCl-w.pet 1 ea topical Q8H 02/23/23 02/23/23 lotion nystatin 100,000 unit/gram topical 1 applic topical BID 02/23/23 02/23/23 powder warfarin 5 mg tablet 5 mg PO . @ MN,WD,FR,ST,SN 02/23/23 02/23/23 Previous Rx's Medication Instructions Recorded potassium chloride 20 mEq 20 meq PO BID #200 tabs 01/05/20 tablet,extended release carvedilol 25 mg tablet 25 mg PO BID #180 tabs 05/12/21 Results & Data (ED) Vital Signs Vital Signs - 24 hr 02/23/23 09:03 02/23/23 09:06 02/23/23 09:21 Temperature 37.9 C H Temperature Source Oral Pulse Rate 108 H 104 H 100 H Pulse Rate [Right Finger] Pulse Rhythm [Right Finger] Pulse Strength [Right Finger] Respiratory Rate 42 H 40 H Respiratory Effort / Characteristics Labored Respiratory Depth Shallow Respiratory Pattern Regular Blood Pressure 109/60 Blood Pressure [Right Arm] Blood Pressure Mean 76 Blood Pressure Mean [Right Arm] Pulse Oximetry 90 95 Oxygen Delivery Method Non-rebreather Non-rebreather Oxygen Flow Rate 15 Sepsis Recent Fever Within 48 Hours No Sepsis New/Unexplained Change in Mental Status N/A Sepsis Action Taken by Nursing No Action Required 02/23/23 09:34 02/23/23 09:49 02/23/23 10:04 Temperature Temperature Source Pulse Rate Pulse Rate [Right Finger] 97 H 89 88 Pulse Rhythm [Right Finger] Pulse Strength [Right Finger] Respiratory Rate 40 H 32 H 32 H Respiratory Effort / Characteristics Labored Labored Respiratory Depth Shallow Shallow Shallow Respiratory Pattern Regular Regular Blood Pressure Blood Pressure [Right Arm] 91/49 L 83/52 L 75/48 L Blood Pressure Mean Blood Pressure Mean [Right Arm] 63 62 57 Pulse Oximetry 95 95 94 Oxygen Delivery Method Non-rebreather Non-rebreather Non-rebreather Oxygen Flow Rate 15 Sepsis Recent Fever Within 48 Hours Sepsis New/Unexplained Change in Mental Status Sepsis Action Taken by Nursing 02/23/23 10:06 02/23/23 10:25 02/23/23 10:35 Temperature Temperature Source Pulse Rate Pulse Rate [Right Finger] 86 86 Pulse Rhythm [Right Finger] Pulse Strength [Right Finger] Respiratory Rate 32 H 30 H Respiratory Effort / Characteristics Labored Respiratory Depth Shallow Shallow Respiratory Pattern Regular Blood Pressure Blood Pressure [Right Arm] 77/53 L 79/54 L Blood Pressure Mean Blood Pressure Mean [Right Arm] 61 62 Pulse Oximetry 94 95 95 Oxygen Delivery Method Non-rebreather Non-rebreather Non-rebreather Oxygen Flow Rate 15 15 Sepsis Recent Fever Within 48 Hours Sepsis New/Unexplained Change in Mental Status Sepsis Action Taken by Nursing 02/23/23 10:45 02/23/23 11:06 02/23/23 11:20 Temperature Temperature Source Pulse Rate Pulse Rate [Right Finger] 87 81 Pulse Rhythm [Right Finger] Regular Pulse Strength [Right Finger] Normal Respiratory Rate 30 H 21 Respiratory Effort / Characteristics Respiratory Depth Shallow Normal Respiratory Pattern Blood Pressure Blood Pressure [Right Arm] 78/56 L 89/55 L 81/51 L Blood Pressure Mean Blood Pressure Mean [Right Arm] 63 66 61 Pulse Oximetry 96 96 Oxygen Delivery Method Non-rebreather Non-rebreather Oxygen Flow Rate 15 Sepsis Recent Fever Within 48 Hours Sepsis New/Unexplained Change in Mental Status Sepsis Action Taken by Nursing 02/23/23 11:30 02/23/23 11:56 02/23/23 12:15 Temperature Temperature Source Pulse Rate Pulse Rate [Right Finger] 80 79 Pulse Rhythm [Right Finger] Regular Regular Pulse Strength [Right Finger] Normal Normal Respiratory Rate 18 19 Respiratory Effort / Characteristics Non-Labored Spontaneous Respiratory Depth Normal Normal Respiratory Pattern Regular Blood Pressure Blood Pressure [Right Arm] 88/54 L 92/56 L 91/54 L Blood Pressure Mean Blood Pressure Mean [Right Arm] 65 68 66 Pulse Oximetry 96 97 Oxygen Delivery Method Non-rebreather Room Air Oxygen Flow Rate 15 Sepsis Recent Fever Within 48 Hours Sepsis New/Unexplained Change in Mental Status Sepsis Action Taken by Nursing Laboratory Data Attestation: I reviewed the patient's lab results. 02/23/23 09:20 02/23/23 09:20 Lab Results 02/23/23 02/23/23 02/23/23 Range/Units 09:20 09:20 09:20 WBC 19.33 H (4.8-10.8) K/ul RBC 4.61 L (4.70-6.10) M/uL Hgb 13.7 L (14.0-18.0) g/dl Hct 40.9 L (42.0-52.0) % MCV 88.7 (80.0-100.0) fL MCH 29.7 (25.0-34.0) pg MCHC 33.5 (32.0-36.0) g/dL RDW Std Deviation 46.9 H (36.4-46.3) fL RDW Coeff of Jerry 14.5 (11.5-14.5) % Plt Count 300 (130-400) K/uL MPV 11.1 (9.4-12.4) fL Immature Gran % (Auto) 1.1 % Neut % (Auto) 84.4 % Lymph % (Auto) 11.2 % [place] % (Auto) 2.7 % Eos % (Auto) 0.3 % Baso % (Auto) 0.3 % Neut # (Auto) 16.33 H (1.40-6.50) K/uL Lymph # (Auto) 2.16 (1.20-3.40) K/uL [place] # (Auto) 0.53 (0.11-0.59) K/uL Eos # (Auto) 0.05 (0.00-0.50) K/uL Baso # (Auto) 0.05 (0.00-0.20) K/uL Immature Gran # (Auto) 0.21 H (0.01-0.20) K/uL PT (9.0-12.0) Seconds INR (0.9-1.1) VBG pH (7.36-7.41) VBG pCO2 (38-50) mmHg VBG pO2 mmHg VBG HCO3 mmol/L VBG O2 Saturation % VBG Base Excess mEq/L Sodium 136 (136-145) mmol/L Potassium 4.7 (3.5-5.1) mmol/L Chloride 104 (98-107) mmol/L Carbon Dioxide 15 L (21-32) mmol/L Anion Gap 17 H (3-11) BUN 22 (6-23) mg/dl Creatinine 1.59 H (0.6-1.4) mg/dl Est Cr Clr Drug Dosing 47.3 ml/min Est GFR ( Amer) 47.5 ml/min Est GFR (Non-Af Amer) 41.0 ml/min BUN/Creatinine Ratio 13.8 (10-20) Glucose 215 H (70-99(Fasting)) mg/dl Lactate (0.4-2.0) mmol/L Calcium 9.0 (8.6-10.3) mg/dl Phosphorus 2.0 L (2.5-4.9) mg/dl Magnesium 1.9 (1.7-2.4) mg/dl Total Bilirubin 0.7 (0.2-1.0) mg/dl AST 20 (13-39) U/L ALT 16 (7-52) U/L Alkaline Phosphatase 49 (34-104) U/L Troponin I High Sens 142.2 H* (0-20) pg/ml B-Natriuretic Peptide 450 H (0-100) pg/ml Total Protein 7.5 (6.0-8.3) gm/dl Albumin 4.1 (3.4-5.0) gm/dl Globulin 3.4 (2.5-4.0) gm/dl Albumin/Globulin Ratio 1.2 (0.9-2) Lipase 15 (11-82) U/L Procalcitonin (0-0.5) ng/ml TSH 2.140 (0.300-4.500) uIu/ml Urine Color Urine Appearance (Clear) Urine pH (4.5-7.5) Ur Specific [place] (1.000-1.030) Urine Protein (Negative) Urine Glucose (UA) (Negative) Urine Ketones (Negative) Urine Blood (Negative) Urine Nitrite (Negative) Urine Bilirubin (Negative) Urine Urobilinogen (Negative) Ur Leukocyte Esterase (Negative) Urine WBC (Auto) (0-5) /hpf Urine RBC (Auto) (0-4) /hpf U Hyaline Cast (Auto) (0-5) /lpf U Epithel Cells (Auto) (0-5) /lpf Urine Bacteria (Auto) (Negative) Ur Renal Epithelial Cell Adenovirus (PCR) (NotDetected) B. pertussis DNA (PCR) (NotDetected) B.parapertussis DNA PCR (NotDetected) C. pneumoniae DNA (PCR) (NotDetected) Coronavirus OC43 (PCR) (NotDetected) Coronavirus HKU1 (PCR) (NotDetected) Coronavirus 229E (PCR) (NotDetected) SARS-CoV-2 (PCR) (NotDetected) Coronavirus NL63 (PCR) (NotDetected) Human Metapneumovir PCR (NotDetected) Influenza Type A (PCR) (NotDetected) Influenza Type B (PCR) (NotDetected) M. pneumoniae (PCR) (NotDetected) Parainfluenza 1 (PCR) (NotDetected) Parainfluenza 2 (PCR) (NotDetected) Parainfluenza 3 (PCR) (NotDetected) Parainfluenza 4 (PCR) (NotDetected) RSV (PCR) (NotDetected) Entero/Rhino (PCR) (NotDetected) 02/23/23 02/23/23 02/23/23 Range/Units 09:20 09:20 09:20 WBC (4.8-10.8) K/ul RBC (4.70-6.10) M/uL Hgb (14.0-18.0) g/dl Hct (42.0-52.0) % MCV (80.0-100.0) fL MCH (25.0-34.0) pg MCHC (32.0-36.0) g/dL RDW Std Deviation (36.4-46.3) fL RDW Coeff of Jerry (11.5-14.5) % Plt Count (130-400) K/uL MPV (9.4-12.4) fL Immature Gran % (Auto) % Neut % (Auto) % Lymph % (Auto) % [place] % (Auto) % Eos % (Auto) % Baso % (Auto) % Neut # (Auto) (1.40-6.50) K/uL Lymph # (Auto) (1.20-3.40) K/uL [place] # (Auto) (0.11-0.59) K/uL Eos # (Auto) (0.00-0.50) K/uL Baso # (Auto) (0.00-0.20) K/uL Immature Gran # (Auto) (0.01-0.20) K/uL PT 26.3 H (9.0-12.0) Seconds INR 2.5 H (0.9-1.1) VBG pH (7.36-7.41) VBG pCO2 (38-50) mmHg VBG pO2 mmHg VBG HCO3 mmol/L VBG O2 Saturation % VBG Base Excess mEq/L Sodium (136-145) mmol/L Potassium (3.5-5.1) mmol/L Chloride (98-107) mmol/L Carbon Dioxide (21-32) mmol/L Anion Gap (3-11) BUN (6-23) mg/dl Creatinine (0.6-1.4) mg/dl Est Cr Clr Drug Dosing ml/min Est GFR ( Amer) ml/min Est GFR (Non-Af Amer) ml/min BUN/Creatinine Ratio (10-20) Glucose (70-99(Fasting)) mg/dl Lactate 8.7 H* (0.4-2.0) mmol/L Calcium (8.6-10.3) mg/dl Phosphorus (2.5-4.9) mg/dl Magnesium (1.7-2.4) mg/dl Total Bilirubin (0.2-1.0) mg/dl AST (13-39) U/L ALT (7-52) U/L Alkaline Phosphatase (34-104) U/L Troponin I High Sens (0-20) pg/ml B-Natriuretic Peptide (0-100) pg/ml Total Protein (6.0-8.3) gm/dl Albumin (3.4-5.0) gm/dl Globulin (2.5-4.0) gm/dl Albumin/Globulin Ratio (0.9-2) Lipase (11-82) U/L Procalcitonin 0.16 (0-0.5) ng/ml TSH (0.300-4.500) uIu/ml Urine Color Urine Appearance (Clear) Urine pH (4.5-7.5) Ur Specific [place] (1.000-1.030) Urine Protein (Negative) Urine Glucose (UA) (Negative) Urine Ketones (Negative) Urine Blood (Negative) Urine Nitrite (Negative) Urine Bilirubin (Negative) Urine Urobilinogen (Negative) Ur Leukocyte Esterase (Negative) Urine WBC (Auto) (0-5) /hpf Urine RBC (Auto) (0-4) /hpf U Hyaline Cast (Auto) (0-5) /lpf U Epithel Cells (Auto) (0-5) /lpf Urine Bacteria (Auto) (Negative) Ur Renal Epithelial Cell Adenovirus (PCR) (NotDetected) B. pertussis DNA (PCR) (NotDetected) B.parapertussis DNA PCR (NotDetected) C. pneumoniae DNA (PCR) (NotDetected) Coronavirus OC43 (PCR) (NotDetected) Coronavirus HKU1 (PCR) (NotDetected) Coronavirus 229E (PCR) (NotDetected) SARS-CoV-2 (PCR) (NotDetected) Coronavirus NL63 (PCR) (NotDetected) Human Metapneumovir PCR (NotDetected) Influenza Type A (PCR) (NotDetected) Influenza Type B (PCR) (NotDetected) M. pneumoniae (PCR) (NotDetected) Parainfluenza 1 (PCR) (NotDetected) Parainfluenza 2 (PCR) (NotDetected) Parainfluenza 3 (PCR) (NotDetected) Parainfluenza 4 (PCR) (NotDetected) RSV (PCR) (NotDetected) Entero/Rhino (PCR) (NotDetected) 02/23/23 02/23/23 02/23/23 Range/Units 09:20 09:20 09:50 WBC (4.8-10.8) K/ul RBC (4.70-6.10) M/uL Hgb (14.0-18.0) g/dl Hct (42.0-52.0) % MCV (80.0-100.0) fL MCH (25.0-34.0) pg MCHC (32.0-36.0) g/dL RDW Std Deviation (36.4-46.3) fL RDW Coeff of Jerry (11.5-14.5) % Plt Count (130-400) K/uL MPV (9.4-12.4) fL Immature Gran % (Auto) % Neut % (Auto) % Lymph % (Auto) % [place] % (Auto) % Eos % (Auto) % Baso % (Auto) % Neut # (Auto) (1.40-6.50) K/uL Lymph # (Auto) (1.20-3.40) K/uL [place] # (Auto) (0.11-0.59) K/uL Eos # (Auto) (0.00-0.50) K/uL Baso # (Auto) (0.00-0.20) K/uL Immature Gran # (Auto) (0.01-0.20) K/uL PT (9.0-12.0) Seconds INR (0.9-1.1) VBG pH 7.38 (7.36-7.41) VBG pCO2 27 L (38-50) mmHg VBG pO2 52 mmHg VBG HCO3 16 mmol/L VBG O2 Saturation 86.0 % VBG Base Excess -7.6 mEq/L Sodium (136-145) mmol/L Potassium (3.5-5.1) mmol/L Chloride (98-107) mmol/L Carbon Dioxide (21-32) mmol/L Anion Gap (3-11) BUN (6-23) mg/dl Creatinine (0.6-1.4) mg/dl Est Cr Clr Drug Dosing ml/min Est GFR ( Amer) ml/min Est GFR (Non-Af Amer) ml/min BUN/Creatinine Ratio (10-20) Glucose (70-99(Fasting)) mg/dl Lactate (0.4-2.0) mmol/L Calcium (8.6-10.3) mg/dl Phosphorus (2.5-4.9) mg/dl Magnesium (1.7-2.4) mg/dl Total Bilirubin (0.2-1.0) mg/dl AST (13-39) U/L ALT (7-52) U/L Alkaline Phosphatase (34-104) U/L Troponin I High Sens (0-20) pg/ml B-Natriuretic Peptide (0-100) pg/ml Total Protein (6.0-8.3) gm/dl Albumin (3.4-5.0) gm/dl Globulin (2.5-4.0) gm/dl Albumin/Globulin Ratio (0.9-2) Lipase (11-82) U/L Procalcitonin (0-0.5) ng/ml TSH (0.300-4.500) uIu/ml Urine Color Yellow Urine Appearance Clear (Clear) Urine pH 5.0 (4.5-7.5) Ur Specific [place] 1.011 (1.000-1.030) Urine Protein 1+ H (Negative) Urine Glucose (UA) Negative (Negative) Urine Ketones Negative (Negative) Urine Blood 1+ H (Negative) Urine Nitrite Negative (Negative) Urine Bilirubin Negative (Negative) Urine Urobilinogen Negative (Negative) Ur Leukocyte Esterase Negative (Negative) Urine WBC (Auto) 5-10 H (0-5) /hpf Urine RBC (Auto) 0-4 (0-4) /hpf U Hyaline Cast (Auto) 1-5 (0-5) /lpf U Epithel Cells (Auto) >30 H (0-5) /lpf Urine Bacteria (Auto) 1+ H (Negative) Ur Renal Epithelial Cell Not Reportable Adenovirus (PCR) Not Detected (NotDetected) B. pertussis DNA (PCR) Not Detected (NotDetected) B.parapertussis DNA PCR Not Detected (NotDetected) C. pneumoniae DNA (PCR) Not Detected (NotDetected) Coronavirus OC43 (PCR) Not Detected (NotDetected) Coronavirus HKU1 (PCR) Not Detected (NotDetected) Coronavirus 229E (PCR) Not Detected (NotDetected) SARS-CoV-2 (PCR) Not Detected (NotDetected) Coronavirus NL63 (PCR) Not Detected (NotDetected) Human Metapneumovir PCR Not Detected (NotDetected) Influenza Type A (PCR) Not Detected (NotDetected) Influenza Type B (PCR) Not Detected (NotDetected) M. pneumoniae (PCR) Not Detected (NotDetected) Parainfluenza 1 (PCR) Not Detected (NotDetected) Parainfluenza 2 (PCR) Not Detected (NotDetected) Parainfluenza 3 (PCR) Not Detected (NotDetected) Parainfluenza 4 (PCR) Not Detected (NotDetected) RSV (PCR) Not Detected (NotDetected) Entero/Rhino (PCR) Not Detected (NotDetected) 02/23/23 02/23/23 Range/Units 12:14 12:14 WBC (4.8-10.8) K/ul RBC (4.70-6.10) M/uL Hgb (14.0-18.0) g/dl Hct (42.0-52.0) % MCV (80.0-100.0) fL MCH (25.0-34.0) pg MCHC (32.0-36.0) g/dL RDW Std Deviation (36.4-46.3) fL RDW Coeff of Jerry (11.5-14.5) % Plt Count (130-400) K/uL MPV (9.4-12.4) fL Immature Gran % (Auto) % Neut % (Auto) % Lymph % (Auto) % [place] % (Auto) % Eos % (Auto) % Baso % (Auto) % Neut # (Auto) (1.40-6.50) K/uL Lymph # (Auto) (1.20-3.40) K/uL [place] # (Auto) (0.11-0.59) K/uL Eos # (Auto) (0.00-0.50) K/uL Baso # (Auto) (0.00-0.20) K/uL Immature Gran # (Auto) (0.01-0.20) K/uL PT (9.0-12.0) Seconds INR (0.9-1.1) VBG pH (7.36-7.41) VBG pCO2 (38-50) mmHg VBG pO2 mmHg VBG HCO3 mmol/L VBG O2 Saturation % VBG Base Excess mEq/L Sodium (136-145) mmol/L Potassium (3.5-5.1) mmol/L Chloride (98-107) mmol/L Carbon Dioxide (21-32) mmol/L Anion Gap (3-11) BUN (6-23) mg/dl Creatinine (0.6-1.4) mg/dl Est Cr Clr Drug Dosing ml/min Est GFR ( Amer) ml/min Est GFR (Non-Af Amer) ml/min BUN/Creatinine Ratio (10-20) Glucose (70-99(Fasting)) mg/dl Lactate 1.9 (0.4-2.0) mmol/L Calcium (8.6-10.3) mg/dl Phosphorus (2.5-4.9) mg/dl Magnesium (1.7-2.4) mg/dl Total Bilirubin (0.2-1.0) mg/dl AST (13-39) U/L ALT (7-52) U/L Alkaline Phosphatase (34-104) U/L Troponin I High Sens 1097.0 H* D (0-20) pg/ml B-Natriuretic Peptide (0-100) pg/ml Total Protein (6.0-8.3) gm/dl Albumin (3.4-5.0) gm/dl Globulin (2.5-4.0) gm/dl Albumin/Globulin Ratio (0.9-2) Lipase (11-82) U/L Procalcitonin (0-0.5) ng/ml TSH (0.300-4.500) uIu/ml Urine Color Urine Appearance (Clear) Urine pH (4.5-7.5) Ur Specific [place] (1.000-1.030) Urine Protein (Negative) Urine Glucose (UA) (Negative) Urine Ketones (Negative) Urine Blood (Negative) Urine Nitrite (Negative) Urine Bilirubin (Negative) Urine Urobilinogen (Negative) Ur Leukocyte Esterase (Negative) Urine WBC (Auto) (0-5) /hpf Urine RBC (Auto) (0-4) /hpf U Hyaline Cast (Auto) (0-5) /lpf U Epithel Cells (Auto) (0-5) /lpf Urine Bacteria (Auto) (Negative) Ur Renal Epithelial Cell Adenovirus (PCR) (NotDetected) B. pertussis DNA (PCR) (NotDetected) B.parapertussis DNA PCR (NotDetected) C. pneumoniae DNA (PCR) (NotDetected) Coronavirus OC43 (PCR) (NotDetected) Coronavirus HKU1 (PCR) (NotDetected) Coronavirus 229E (PCR) (NotDetected) SARS-CoV-2 (PCR) (NotDetected) Coronavirus NL63 (PCR) (NotDetected) Human Metapneumovir PCR (NotDetected) Influenza Type A (PCR) (NotDetected) Influenza Type B (PCR) (NotDetected) M. pneumoniae (PCR) (NotDetected) Parainfluenza 1 (PCR) (NotDetected) Parainfluenza 2 (PCR) (NotDetected) Parainfluenza 3 (PCR) (NotDetected) Parainfluenza 4 (PCR) (NotDetected) RSV (PCR) (NotDetected) Entero/Rhino (PCR) (NotDetected) Administered Medications Bupropion HCl (Bupropion Hcl 100 Mg Tablet) 100 mg PO BID [facility] Stop: 03/25/23 20:59 Last Admin: 02/23/23 20:06 Dose: 100 mg Documented By: [facility] Carvedilol (Carvedilol 25 Mg Tab) 25 mg PO BID [facility] Stop: 03/25/23 20:59 Last Admin: 02/23/23 19:34 Dose: Not Given Documented By: [facility] Docusate Sodium (Docusate Sodium 100 Mg Cap) 100 mg PO BID [facility] Stop: 03/25/23 20:59 Last Admin: 02/23/23 20:06 Dose: 100 mg Documented By: [facility] Norepinephrine Bitartrate (Levophed/D5w) 4 mg in 250 mls @ 0 mls/hr IV .Q0M SC [facility]; Protocol Stop: 03/25/23 10:29 Last Titration: 02/23/23 18:14 Dose: 0 mcg/kg/min, 0 mls/hr Documented By: Titration: 02/23/23 17:48 Dose: 0.03 mcg/kg/min, 11.9 mls/hr Documented By: Titration: 02/23/23 17:08 Dose: 0.04 mcg/kg/min, 15.8 mls/hr Documented By: Titration: 02/23/23 16:43 Dose: 0.05 mcg/kg/min, 19.8 mls/hr Documented By: Titration: 02/23/23 16:18 Dose: 0.06 mcg/kg/min, 23.7 mls/hr Documented By: Titration: 02/23/23 15:09 Dose: 0.07 mcg/kg/min, 27.7 mls/hr Documented By: Titration: 02/23/23 14:11 Dose: 0.08 mcg/kg/min, 31.7 mls/hr Documented By: Titration: 02/23/23 12:50 Dose: 0.07 mcg/kg/min, 27.7 mls/hr Documented By: Admin: 02/23/23 11:25 Dose: 0.05 mcg/kg/min, 19.8 mls/hr Documented By: MONICA Co-signed By: ARACELI Cefepime HCl 2,000 mg/ Syringe 20 mls @ 5 mls/min IV Q12H [facility]; Protocol Stop: 03/02/23 21:59 Last Admin: 02/23/23 23:02 Dose: 5 mls/min Documented By: MARCE Vancomycin HCl 750 mg/ Sodium (Chloride) 265 mls @ 200 mls/hr IV Q12H [facility] Stop: 02/25/23 19:59 Last Infusion: 02/23/23 21:39 Dose: 0 mls/hr Documented By: Admin: 02/23/23 20:06 Dose: 200 mls/hr Documented By: MARCE Miscellaneous (Icu Protocol For Hyperglycemia) 1 each N/A ACHS [facility] Stop: 02/25/23 16:29 Last Admin: 02/23/23 20:06 Dose: 1 each Documented By: Admin: 02/23/23 16:56 Dose: 1 each Documented By: SYDNIE Oxycodone HCl (Oxycodone Hcl 10 Mg Tabcr (Oxycontin)) 10 mg PO Q12 [facility] Stop: 03/09/23 20:59 Last Admin: 02/23/23 20:06 Dose: 10 mg Documented By: MARCE Pantoprazole Sodium (Pantoprazole 40 Mg Tab) 80 mg PO DAILY@1200 [facility] Stop: 03/25/23 14:10 Last Admin: 02/23/23 15:08 Dose: 80 mg Documented By: SYDNIE Sennosides (Senna 8.6 Mg Tab) 8.6 mg PO BID [facility] Stop: 03/25/23 20:59 Last Admin: 02/23/23 20:06 Dose: 8.6 mg Documented By: MARCE Warfarin Sodium (Warfarin Sod 2.5 Mg Tab) 2.5 mg PO TuTh@1600 [facility] Stop: 03/25/23 15:59 Last Admin: 02/23/23 15:08 Dose: 2.5 mg Documented By: GPSamantha Discontinued Medications Acetaminophen (Ofirmev) 1,000 mg in 100 mls @ 400 mls/hr IV NOW STA Stop: 02/23/23 09:31 Last Infusion: 02/23/23 10:23 Dose: 0 mls/hr Documented By: Admin: 02/23/23 10:02 Dose: 400 mls/hr Documented By: NATALY Sodium Chloride (Nss) 1,000 mls @ 999 mls/hr IV .Q1H1M [facility] Stop: 02/23/23 10:45 Last Infusion: 02/23/23 12:17 Dose: 0 mls/hr Documented By: Admin: 02/23/23 10:11 Dose: 999 mls/hr Documented By: NATALY Cefepime HCl (Maxipime) 2,000 mg in 20 mls @ 5 mls/min IV NOW STA; Protocol Stop: 02/23/23 09:37 Last Admin: 02/23/23 09:58 Dose: 5 mls/min Documented By: NATALY Vancomycin HCl 2,750 mg/ (Sodium Chloride) 555 mls @ 200 mls/hr IV NOW ONE Stop: 02/23/23 12:20 Last Admin: 02/23/23 09:58 Dose: 200 mls/hr Documented By: NATALY Sodium Chloride (Nss) 500 mls @ 999 mls/hr IV .Q31M ONE Stop: 02/23/23 10:55 Last Admin: 02/23/23 11:55 Dose: Not Given Documented By: MONICA Parenteral Electrolytes (Plasma-Lyte A Ph 7.4) 500 mls @ 999 mls/hr IV .Q31M ONE Stop: 02/23/23 12:15 Last Infusion: 02/23/23 13:16 Dose: 0 mls/hr Documented By: Admin: 02/23/23 11:53 Dose: 999 mls/hr Documented By: MONICA Parenteral Electrolytes (Plasma-Lyte A Ph 7.4) 500 mls @ 999 mls/hr IV .Q31M ONE Stop: 02/23/23 17:47 Last Infusion: 02/23/23 18:15 Dose: 0 mls/hr Documented By: Admin: 02/23/23 17:46 Dose: 999 mls/hr Documented By: SYDNIE Parenteral Electrolytes (Plasma-Lyte A Ph 7.4) 1,000 mls @ 80 mls/hr IV .[id number] [facility] Stop: 03/25/23 17:29 Last Infusion: 02/23/23 18:14 Dose: 80 mls/hr Documented By: Admin: 02/23/23 17:47 Dose: 80 mls/hr Documented By: SYDNIE Miscellaneous (Stat Iv Infusion Titration Per Protocol) 1 each N/A NOW STA Stop: 02/23/23 10:25 Last Admin: 02/23/23 11:55 Dose: Not Given Documented By: MONICA Norepinephrine Bitartrate (Norepinephrine/D5w 4 Mg/250 Ml) Confirm Administered Dose 4 mg IV .STK-MED ONE Stop: 02/23/23 10:24 Last Admin: 02/23/23 11:29 Dose: Not Given Documented By: MONICA Imaging Data Radiologist's Impression: Chest X-Ray 02/23/23 09:17 XR chest 1V portable HISTORY: Chest pain, nonspecific COMPARISON: Chest 02/27/2022. FINDINGS: No pneumothorax. Stable cardiomegaly and a left-sided pacemaker/defibrillator. A few bibasilar linear densities favor subsegmental atelectasis or scarring. The upper lung zones remain clear. No evidence for pulmonary edema. Trace left pleural effusion is suspected. There is a moderate hiatus hernia, unchanged. IMPRESSION: 1. Stable cardiomegaly. 2. Trace left pleural effusion. 3. Bibasilar linear densities persist and favor subsegmental atelectasis or scarring. 4. Moderate hiatus hernia again noted. ACT 112: Negative or not required by law. Electronically signed by: Lambert Hart M.D. 02/23/2023 9:46 AM Abdomen/Pelvis CT 02/23/23 10:24 CT abd pelvis wo con CLINICAL HISTORY: sepsis, hypoxia TECHNIQUE: Helical axial images of the abdomen and pelvis were obtained. Automated dose lowering techniques and/or adjustment according to patient size were utilized for this exam. This exam was performed without intravenous contrast. CT DOSE: 2149.73 mGy.cm COMPARISON: Comparison is made to CT abdomen pelvis 02/04/2023 FINDINGS: Lower chest: Atelectasis and bronchiectasis are seen. Likely superimposed airspace disease such as pneumonia. Liver: Hepatic steatosis is noted. Gallbladder and biliary tree: Patient is status post cholecystectomy. No intra- or extrahepatic biliary ductal dilation. Pancreas: Fatty replacement of the pancreas is seen. Spleen: Splenic cyst is seen. Adrenals: Unremarkable. Kidneys and ureters: Renal cysts are seen. Hyperdense right renal lesion measures 9 mm, possibly a hyperdense cyst, unchanged from prior exam. Nonobstructive stones are noted bilaterally. Bladder: [place] catheter is seen. Reproductive organs: Unremarkable. Bowel: Diverticulosis is seen without evidence of diverticulitis. The appendix is unremarkable. There is a moderate hiatal hernia. Duodenal diverticula are seen. Lymph nodes Retroperitoneal: Unremarkable. Pelvic: Subcentimeter lymph nodes are noted. Mesenteric: Unremarkable. Peritoneum: Minimal stranding is seen about the pelvis. Vessels: Atherosclerotic calcifications are seen. Abdominal wall: Status post right inguinal hernia repair. Bilateral fat- containing inguinal hernias are seen, the right residual right hernia contains a small portion of the urinary bladder. Bones: Degenerative changes in the visualized spine. IMPRESSION: 1. Findings are suggestive of pneumonia in the bilateral lower lungs superimposed upon atelectasis and bronchiectasis. 2. Otherwise no acute abnormalities are seen. Nonspecific stranding is seen about the pelvis. Clinical correlation for cystitis is recommended. 3. Diverticulosis without diverticulitis. 4. Additional findings as above. ACT 112: Negative or not required by law. Electronically signed by: Dakota Alexis M.D. 02/23/2023 11:[address] 02/23/23 10:24 CT SCAN OF THE CHEST WITHOUT IV CONTRAST CLINICAL HISTORY: Sepsis. Hypoxia. COMPARISON STUDY: Chest x-ray dated 02/23/2023. Chest CT dated 11/09/2013. TECHNIQUE: CT scan of the thorax was performed from the thoracic inlet to the upper abdomen. Images are reviewed in the axial, sagittal, and coronal planes. IV contrast was not administered for this examination as per the referring clinician. A dose lowering technique was utilized adhering to the principles of ALARA. FINDINGS: Thyroid: Mildly enlarged and heterogeneous. Thoracic aorta: There is atherosclerotic calcification of the thoracic aorta, which is normal in caliber and demonstrates standard 3-vessel arch anatomy. Heart: A cardiac pacemaker is present in the left chest wall. The heart is enlarged and without pericardial effusion. The coronary arteries are densely calcified. Myocardial fat deposition suggests previous ischemia. There is epicardial lipomatosis. The main pulmonary arteries appear dilated suggesting pulmonary artery hypertension. Lungs and pleural spaces: There is moderate emphysema. There is dependent bibasilar consolidation. No pleural effusion is identified. The trachea and central airways are clear. Mediastinum: There is no mediastinal lymphadenopathy. Tracie: Not well assessed without IV contrast. Axillae: There is no axillary lymphadenopathy. Upper abdomen: There is a moderate to large hiatal hernia. Postsurgical change is noted at the gastroesophageal junction. A 1.8 cm ovoid hypodensity in the spleen is been present dating back to 2013 and is statistically of doubtful s ignificance. Skeletal structures: The skeletal structures are osteopenic. No lytic or blastic bony lesions are seen. Degenerative changes noted in the shoulders and spine. IMPRESSION: 1. Dependent airspace consolidation at both lung bases likely represent pneumonia/aspiration pneumonitis. Clinical correlation will be required and radiographic follow-up to resolution is recommended. Follow-up imaging should include both PA and lateral views. 2. Cardiomegaly and cardiac pacemaker. 3. Emphysema. 4. Moderate to large hiatal hernia. 5. Additional findings as above. ACT 112: Negative or not required by law. Electronically signed by: Ankush Byrnes M.D. 02/23/2023 11:37 AM Discharge Plan Visit Data Chief Complaint: Respiratory Distress Stated Complaint: CONFUSION, WEAKNESS, SOB, FEVER ED Provider: Uday Retana Discharge Problem: Sepsis, Pneumonia, Acute UTI, Acute kidney failure, Ischemic cardiomyopathy, Chronic systolic congestive heart failure, Acute respiratory failure with hypoxia, Elevated troponin Patient Disposition: Admitted As Inpatient Discharge Instructions Interventions: ED Discharge Assessment Last Done: 02/23/23 13:34
[2023-02-23 09:42] LABS: Basophils # (auto) 0.05 K/uL (0.00-0.20); Basophils % (auto) 0.3 %; Eosinophils # (auto) 0.05 K/uL (0.00-0.50); Eosinophils % (auto) 0.3 %; Hematocrit (blood only) 40.9 % (42.0-52.0); Hemoglobin 13.7 g/dl (14.0-18.0); Immature Granulocytes # (auto) 0.21 K/uL (0.01-0.20); Immature Granulocytes % (auto) 1.1 %; Lymphocytes # (auto) 2.16 K/uL (1.20-3.40); Lymphocytes % (auto) 11.2 %; Mean Corpuscular Hemoglobin 29.7 pg (25.0-34.0); Mean Corpuscular Hgb Conc 33.5 g/dL (32.0-36.0); Mean Corpuscular Volume 88.7 fL (80.0-100.0); Mean Platelet Volume 11.1 fL (9.4-12.4); Monocytes # (auto) 0.53 K/uL (0.11-0.59); Monocytes % (auto) 2.7 %; Neutrophils # (auto) 16.33 K/uL (1.40-6.50); Neutrophils % (auto) 84.4 %; Platelet Count 300 K/uL (130-400); RDW Coefficient of Variation 14.5 % (11.5-14.5); RDW Standard Deviation 46.9 fL (36.4-46.3); Red Blood Count 4.61 M/uL (4.70-6.10); White Blood Count 19.33 K/ul (4.8-10.8)
[2023-02-23] MEDS ORDERED: SODIUM CHLORIDE 0.9% 1,000 ML IV SCH (09:45)
--- NOTE | 2023-02-23 09:46 | Electrocardiogram Report ---
Test Reason : Blood Pressure : / mmHG Vent. Rate : 103 BPM Atrial Rate : 103 BPM P-R Int : 000 ms QRS Dur : 132 ms QT Int : 382 ms P-R-T Axes : 000 118 047 degrees QTc Int : 500 ms Ventricular-paced rhythm Abnormal ECG When compared with ECG of 04-FEB-2023 12:48, Vent. rate has increased BY 20 BPM Confirmed by Tramaine Kruger ([id number]) on 02/23/2023 9:46:41 AM Referred By: Confirmed By:Dung Kruger
--- NOTE | 2023-02-23 09:48 | XRay Report ---
XR chest 1V portable HISTORY: Chest pain, nonspecific COMPARISON: Chest 02/27/2022. FINDINGS: No pneumothorax. Stable cardiomegaly and a left-sided pacemaker/defibrillator. A few bibasi lar linear densities favor subsegmental atelectasis or scarring. The upper lung zones remain clear. N o evidence for pulmonary edema. Trace left pleural effusion is suspected. There is a moderate hiatus hernia, unchanged. IMPRESSION: 1. Stable cardiomegaly. 2. Trace left pleural effusion. 3. Bibasilar linear densities persist and favor subsegmental atelectasis or scarring. 4. Moderate hiatus hernia again noted. ACT 112: Negative or not required by law. Electronically signed by: Lambert Hart M.D. 02/23/2023 9:46 AM
[2023-02-23 10:04] LABS: Albumin Globulin Ratio 1.2 (0.9-2); Albumin Level 4.1 gm/dl (3.4-5.0); BUN Creatinine Ratio 13.8 (10-20); Bilirubin,Total 0.7 mg/dl (0.2-1.0); Creatinine Clr Calc Pharmacy 47.3 ml/min; Est GFR (African American) 47.5 ml/min; Globulin 3.4 gm/dl (2.5-4.0); Magnesium 1.9 mg/dl (1.7-2.4); Potassium 4.7 mmol/L (3.5-5.1); Total Protein 7.5 gm/dl (6.0-8.3)
[2023-02-23 10:08] LABS: Appearance Urine Clear (Clear); Bilirubin Urine Negative (Negative); Blood Urine 1+ (Negative); Color Urine Yellow; Epithelial Cell Urine Auto >30 /lpf (0-5); Glucose Urine UA Negative (Negative); Ketones Urine Negative (Negative); Leukocyte Esterase Urine Negative (Negative); Nitrite Urine Negative (Negative); Protein Urine 1+ (Negative); Specific Gravity Urine 1.011 (1.000-1.030); Urobilinogen Urine Negative (Negative)
[2023-02-23 10:15] LABS: INR 2.5 (0.9-1.1); Prothrombin Time 26.3 Seconds (9.0-12.0)
[2023-02-23 10:20] LABS: Thyroid Stimulating Hormone 2.14 uIu/ml (0.300-4.500)
[2023-02-23] MEDS ORDERED: NOREPINEPHRINE/D5W 4 MG/250 ML IV ONE (10:23)
[2023-02-23] MEDS ORDERED: STAT IV Infusion **Titration per Protocol STA (10:24)
[2023-02-23] MEDS ORDERED: SODIUM CHLORIDE 0.9% 500 ML IV ONE (10:25)
[2023-02-23 10:27] LABS: RBC Urine Automated 0-4 /hpf (0-4)
[2023-02-23 10:28] LABS: Bacteria Urine Automated 1+ (Negative)
[2023-02-23 10:36] LABS: Troponin I High Sensitivity 142.2 pg/ml (0-20)
[2023-02-23 10:40] LABS: Adenovirus PCR Not Detected (NotDetected); Bordetella parapertussis PCR Not Detected (NotDetected); Bordetella pertussis PCR Not Detected (NotDetected); Chlamydia pneumoniae PCR Not Detected (NotDetected); Coronavirus 229E PCR Not Detected (NotDetected); Coronavirus CoV-2 (COVID19)PCR Not Detected (NotDetected); Coronavirus HKU1 PCR Not Detected (NotDetected); Coronavirus NL63 PCR Not Detected (NotDetected); Coronavirus OC43PCR Not Detected (NotDetected); Human Metapneumovirus PCR Not Detected (NotDetected); Influenza A PCR Not Detected (NotDetected); Influenza B PCR Not Detected (NotDetected); Mycoplasma pneumoniae PCR Not Detected (NotDetected); Parainfluenza Virus 1 PCR Not Detected (NotDetected); Parainfluenza Virus 2 PCR Not Detected (NotDetected); Parainfluenza Virus 3 PCR Not Detected (NotDetected); Parainfluenza Virus 4 PCR Not Detected (NotDetected); Respiratory Syncytial VirusPCR Not Detected (NotDetected); Rhinovirus/Enterovirus PCR Not Detected (NotDetected)
[2023-02-23] MEDS: NOREPINEPHRINE/D5W 4 MG/250 ML PLCT IV SCH (11:25)
--- NOTE | 2023-02-23 11:34 | CT Scan Report ---
CT abd pelvis wo con CLINICAL HISTORY: sepsis, hypoxia TECHNIQUE: Helical axial images of the abdomen and pelvis were obtained. Automated dose lowering tech niques and/or adjustment according to patient size were utilized for this exam. This exam was perfor med without intravenous contrast. CT DOSE: 2149.73 mGy.cm COMPARISON: Comparison is made to CT abdomen pelvis 02/04/2023 FINDINGS: Lower chest: Atelectasis and bronchiectasis are seen. Likely superimposed airspace disease such as p neumonia. Liver: Hepatic steatosis is noted. Gallbladder and biliary tree: Patient is status post cholecystectomy. No intra- or extrahepatic bilia ry ductal dilation. Pancreas: Fatty replacement of the pancreas is seen. Spleen: Splenic cyst is seen. Adrenals: Unremarkable. Kidneys and ureters: Renal cysts are seen. Hyperdense right renal lesion measures 9 mm, possibly a hy perdense cyst, unchanged from prior exam. Nonobstructive stones are noted bilaterally. Bladder: [place] catheter is seen. Reproductive organs: Unremarkable. Bowel: Diverticulosis is seen without evidence of diverticulitis. The appendix is unremarkable. There is a moderate hiatal hernia. Duodenal diverticula are seen. Lymph nodes Retroperitoneal: Unremarkable. Pelvic: Subcentimeter lymph nodes are noted. Mesenteric: Unremarkable. Peritoneum: Minimal stranding is seen about the pelvis. Vessels: Atherosclerotic calcifications are seen. Abdominal wall: Status post right inguinal hernia repair. Bilateral fat-containing inguinal hernias a re seen, the right residual right hernia contains a small portion of the urinary bladder. Bones: Degenerative changes in the visualized spine. IMPRESSION: 1. Findings are suggestive of pneumonia in the bilateral lower lungs superimposed upon atelectasis a nd bronchiectasis. 2. Otherwise no acute abnormalities are seen. Nonspecific stranding is seen about the pelvis. Clinic al correlation for cystitis is recommended. 3. Diverticulosis without diverticulitis. 4. Additional findings as above. ACT 112: Negative or not required by law. Electronically signed by: Dakota Alexis M.D. 02/23/2023 11:33 AM
--- NOTE | 2023-02-23 11:39 | CT Scan Report ---
CT SCAN OF THE CHEST WITHOUT IV CONTRAST CLINICAL HISTORY: Sepsis. Hypoxia. COMPARISON STUDY: Chest x-ray dated 02/23/2023. Chest CT dated 11/09/2013. TECHNIQUE: CT scan of the thorax was performed from the thoracic inlet to the upper abdomen. Images are reviewed in the axial, sagittal, and coronal planes. IV contrast was not administered for this ex amination as per the referring clinician. A dose lowering technique was utilized adhering to the [facility] [place]. FINDINGS: Thyroid: Mildly enlarged and heterogeneous. Thoracic aorta: There is atherosclerotic calcification of the thoracic aorta, which is normal in jorje jocelyn and demonstrates standard 3-vessel arch anatomy. Heart: A cardiac pacemaker is present in the left chest wall. The heart is enlarged and without peric ardial effusion. The coronary arteries are densely calcified. Myocardial fat deposition suggests prev ious ischemia. There is epicardial lipomatosis. The main pulmonary arteries appear dilated suggesting pulmonary artery hypertension. Lungs and pleural spaces: There is moderate emphysema. There is dependent bibasilar consolidation. No pleural effusion is identified. The trachea and central airways are clear. Mediastinum: There is no mediastinal lymphadenopathy. Tracie: Not well assessed without IV contrast. Axillae: There is no axillary lymphadenopathy. Upper abdomen: There is a moderate to large hiatal hernia. Postsurgical change is noted at the gastro esophageal junction. A 1.8 cm ovoid hypodensity in the spleen is been present dating back to 2013 and is statistically of doubtful significance. Skeletal structures: The skeletal structures are osteopenic. No lytic or blastic bony lesions are see n. Degenerative changes noted in the shoulders and spine. IMPRESSION: 1. Dependent airspace consolidation at both lung bases likely represent pneumonia/aspiration pneumoni tis. Clinical correlation will be required and radiographic follow-up to resolution is recommended. F ollow-up imaging should include both PA and lateral views. 2. Cardiomegaly and cardiac pacemaker. 3. Emphysema. 4. Moderate to large hiatal hernia. 5. Additional findings as above. ACT 112: Negative or not required by law. Electronically signed by: Ankush Byrnes M.D. 02/23/2023 11:37 AM
--- NOTE | 2023-02-23 11:41 | History & Physical Report ---
Date of Service February 23, 2023 Assessment & Plan (1) Severe sepsis: Plan: Sepsis, Acute Hypoxic Respiratory Failure Endorses fever, weakness, and some shortness of breath x24-36 hours. Recent admission and discharge home for diverticulitis 02/04, this improved and patient reports that he does not have any abdominal tenderness, CT does not show abd pathology. Bilat lower PNA is suspected Legs are not swollen, was peeing normally up until this morning and urination has been absent/decreased since this CTchest consistent with bilateral basilar pneumonia? Aspiration UA contaminated appearing, patient does not have urinary symptoms. 30 cc/kg IBW 3165/IBW 2345 cc patient has received 1500 cc bolus in ER. 2345 cc bolus initially deferred due to heart failure with EF 25-30%. Levophed added for adjunct blood pressure management. Bedside assessment [id number] ultrasound shows collapsible, non-distended jugular vein consistent with volume depletion. Additional Plasmalyte bolus ordered. Admitted to ICU for additional care Patient is maintaining oxygen saturation on nonrebreather, appears ill. ABG pending - Cefepime/Vancomycin ordered, continue. Renally dose to every 12 hours .MRSA nare pending. BioFire is negative. Procalcitonin is negative (2) Acute on chronic hypoxic respiratory failure: Plan: - 2/2 PNA, tx of sepsis/PNA as noted (3) Chronic systolic congestive heart failure: Plan: Heart failure reduced ejection fraction, CAD, ICD/pacer, paroxysmal Afib Echo 07/2022 stable, EF 25-30% with grade 1 diastolic dysfunction and diffuse hypokinesis with additional inferior wall akinesis, posterior wall akinesis. Last ICD interrogation 12/2022, no episodes of A-fib/flutter; 6 episodes of nonsustained SVT/PVCs up to 22 seconds. Pacing percentage less than 95% Bumex held while hypotensive, carvedilol/Entresto held while hypotensive. Resume carvedilol first when blood pressure tolerating Anticoagulated on Coumadin, goal INR 23 Aspirin 81 mg continued Resume Crestor when tolerating p.o. EKG paced, no acute ischemic findings. Clinically without chest pain. Suspect elevated troponin due to demand from sepsis. Trended (4) Presence of biventricular automatic cardioverter/defibrillator (AICD): Plan: Paced rhythm noted (5) Tremor: (6) Atrial fibrillation: Plan: Paced rhythm. Patient is with therapeutic INR of 2.5. Continue warfarin with goal INR 23 point (7) Atherogenic dyslipidemia: (8) Benign essential hypertension: Plan: Hypertension Carvedilol, Entresto held as noted, Bumex held as noted. Resume when BP and Cr permit (9) Cervical radiculopathy: Plan: Hx of Idiopathic peripheral neuropathy, tremor, cervical radiculopathy Follows with neurology. Has a history of cervical radiculopathy with hand atrophy stable. Significant improvement on Mirapex as outpt. Continued. (10) BPH loc w urin obs/LUTS: Plan: - [place] i nplace. Strict I&os. Plan DVT prophylaxis: Anticoagulated Diet: Heart healthy when able to be taken off nonrebreather, n.p.o. until then Disposition: ICU CODE STATUS: Full code History of Present Illness Primary Care Provider: Tramaine Peterson MD Royce is a 78-year-old male with a past medical history of CAD and heart failure with reduced ejection fraction w/ ICD-pacemaker, emphysema, BPH with LUTS, A- fib, hyperlipidemia, asthma who was recently seen 02/04/2023 and diagnosed with diverticulitis without abscess/perforation was discharged home on Cipro/Flagyl who presents to the ER 02/23 with hypotension, fever, tachypnea, hypoxic respiratory failure on nonrebreather with severe sepsis and a lactate of 8.7. BNP is 450 with no baseline for comparison; patient is Royce reports that he took his antibiotics for his diverticulitis as directed and felt much better. He has been well since then until approximately 1-2 days ago when he developed fatigue, weakness, and progressive shortness of breath. He has had a nonproductive cough. His abdomen has not been painful to him. He has not had dysuria. He was peeing normally up until this morning, and now is peeing less than normal. He denies chest pain, chest pressure. No lightheadedness/dizziness/syncope, but felt very weak on his feet and could not stand which is what prompted coming to the ER. He did take all of his medications as directed this morning, he has a history of 1 stent and is following with Dr. Negron for CAD. He is concerned whether this could be due to his heart, he is febrile and skin is moist at time of assessment. He reports his shortness of breath is persistent and not worsened by laying flat. His legs are dry and are not swollen currently, he did take his diuretic this morning. Medical History: Reviewed Medications: Reviewed Surgical History: Reviewed Family history: Reviewed Allergies: Reviewed Social History: Reviewed Code Status: Full Code Allergies Allergy/AdvReac Type Severity Reaction Status Date / Time bee venom protein (honey bee) Allergy Severe SWELLING, Verified 01/05/23 12:58 SOB Penicillins Allergy Severe SWELLING, Verified 01/05/23 12:58 DIFFICULTY BREATHING lidocaine Allergy Mild RASH Verified 01/05/23 12:58 hydrocodone AdvReac Mild nausea Verified 01/05/23 12:58 oxycodone AdvReac Mild nausea-SLOW Verified 01/05/23 12:58 RELEASE IS OK Home Medications Medication Instructions Recorded Confirmed Type albuterol sulfate 90 mcg/actuation 2 puffs inhalation Q6H PRN 12/01/18 02/23/23 History aerosol inhaler Shortness Of Breath Or Wheezing bupropion HCl 100 mg tablet 100 mg PO BID 12/01/18 02/23/23 History docusate sodium 100 mg capsule 100 mg PO BID 12/01/18 02/23/23 History epinephrine 0.3 mg/0.3 mL 0.3 ml IM DIRECTED PRN 12/01/18 02/23/23 History injection, auto-injector Anaphylaxis finasteride 5 mg tablet 5 mg PO QAM 12/01/18 02/23/23 History aspirin 81 mg tablet,delayed 81 mg PO QAM 12/21/18 02/23/23 History release mometasone 50 mcg/actuation nasal 2 spray intranasal BID 12/21/18 02/23/23 History spray (Nasonex) oxycodone 10 mg tablet 10 mg PO Q12H 12/21/18 02/23/23 History sennosides 8.6 mg tablet 8.6 mg PO BID 12/21/18 02/23/23 History warfarin 5 mg tablet 2.5 mg PO . @TU, TH12/21/18 02/23/23 History white petrolatum-mineral oil 56.8 1 applic ophthalmic (eye) HS 12/21/18 02/23/23 History %-42.5 % eye ointment (Refresh Lacri-Lube) metoclopramide HCl 10 mg tablet 10 mg PO Q8H 09/04/19 02/23/23 History cetirizine 10 mg capsule 10 mg PO HS 11/06/19 02/23/23 History potassium chloride 20 mEq 20 meq PO BID #200 tabs 01/05/20 02/23/23 Rx tablet,extended release bumetanide 1 mg tablet 1 mg PO QAM 02/29/20 02/23/23 History sacubitril 49 mg-valsartan 51 mg 1 tab PO BID 11/25/20 02/23/23 History tablet pantoprazole 40 mg tablet,delayed 80 mg PO .@NOON 03/10/21 02/23/23 History release carvedilol 25 mg tablet 25 mg PO BID #180 tabs 05/12/21 02/23/23 Rx rosuvastatin 10 mg tablet (Crestor) 10 mg PO QPM 12/03/21 02/23/23 History pramipexole 0.375 mg 0.375 mg PO QAM 12/02/22 02/23/23 History tablet,extended release 24 hr (Mirapex ER) tiotropium 2.5 mcg-olodaterol 2.5 2 puff inhalation QAM 12/02/22 02/23/23 History mcg/actuation mist for inhalation (Stiolto Respimat) lanolin-mineral oil-NaCl-w.pet 1 ea topical Q8H 02/23/23 02/23/23 History lotion nystatin 100,000 unit/gram topical 1 applic topical BID 02/23/23 02/23/23 History powder warfarin 5 mg tablet 5 mg PO . @ MN,WD,FR,ST,SN 02/23/23 02/23/23 History Past Med/Surg History Medical History Asthma inhaler prn Atherogenic dyslipidemia Atrial fibrillation on warfarin--follows with Dr. Abreu Balance problem BPH loc w urin obs/LUTS CAD (coronary artery disease) s/p stent 2010 Cervicogenic headache Chronic back pain Chronic systolic congestive heart failure EF 25-30% Depression Elevated PSA Emphysema lung Hearing deficit History of DVT of lower extremity 2010 History of kidney stones History of urinary self-catheterization self caths every other night Ischemic cardiomyopathy Euvolemic at 11/23/22 cardio appt Legally blind Macular degeneration Migraine Myocardial Infarction 10/2010--follows with Dr. Abreu Presence of combination internal cardiac defibrillator (ICD) and pacemaker first placed 2010 @ [facility] replaced in 2014 & 2021 @ [facility]--biventricular [employer]. reports last check 11/25/22. Pulmonary embolism 1992 and 2010 after heart attack--follows with Dr. Abreu Sleep apnea bipap Spasticity upper limbs Warfarin anticoagulation Surgical History History of bilateral cataract extraction History of cardiac cath 10/2010 @ [facility]--1 stent placed History of cholecystectomy History of colonoscopy with polypectomy History of cystoscopy multiple History of esophagogastroduodenoscopy (EGD) History of eye surgery right--macular degeneration History of foot surgery plantar fasciitis History of Khari fundoplication History of open reduction and internal fixation (ORIF) procedure left foot--hardware removed History of prostate biopsy x3--precancerous, just monitoring for now History of prostate surgery 07/2016--[facility] prostate vaproization History of right inguinal hernia repair x3 History of tooth extraction S/P epidural steroid injection Family History Son Family history of diabetes mellitus Other Family history non-contributory No family history of adverse response to anesthesia Social History Smoking Status: Former smoker Second Hand Exposure: Yes (father smoked); Do You Dip or Chew Tobacco: No; Hx Alcohol Use: No Hx Substance Use: No Preferred Language: [place]an Communication Ability: 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 NAD. Cooperative. Febrile 37.9*C, skin warm/moist on exam. Appears ill HEENT: Atraumatic, normocephalic. PERLAA. Eom and hearing intact Pulm:Coarse in the bases bilaterally. On nonrebreather. Cardiac: RRR, +sm. Radial pulses intact and symmetrical. No JVD/Jugular Flat Abdominal: Nontender softly nondistended, no rebound/guarding. BS present. Ext: Warm, dry. No edema. Results & Data Results & Data Vital Signs (Past 12 Hours) Vital Signs Temp Pulse Pulse Resp BP BP Pulse Ox 02/23/23 11:30 88/54 L 02/23/23 11:20 81 21 81/51 L 96 02/23/23 11:06 89/55 L 02/23/23 10:45 87 87 H 78/56 L 96 02/23/23 10:35 86 30 H 79/54 L 95 02/23/23 10:25 86 32 H 77/53 L 95 02/23/23 10:06 94 02/23/23 10:04 88 32 H 75/48 L 94 02/23/23 09:49 89 32 H 83/52 L 95 02/23/23 09:34 97 H 40 H 91/49 L 95 02/23/23 09:21 100 H 40 H 95 02/23/23 09:06 104 H 02/23/23 09:03 37.9 C H 108 H 42 H 109/60 90 O2 Del Method O2 Flow Rate 02/23/23 11:30 02/23/23 11:20 Non-rebreather 15 02/23/23 11:06 02/23/23 10:45 Non-rebreather 02/23/23 10:35 Non-rebreather 15 02/23/23 10:25 Non-rebreather 02/23/23 10:06 Non-rebreather 15 02/23/23 10:04 Non-rebreather 02/23/23 09:49 Non-rebreather 02/23/23 09:34 Non-rebreather 15 02/23/23 09:21 Non-rebreather 15 02/23/23 09:06 02/23/23 09:03 Non-rebreather PG Care Time/CCT Total # of Minutes Spent Total Time Spent with Patient: Total time spent is greater than 50% in coordination of care (as documented) at patient's floor/unit and/or counseling patient: Coding Level of Care Code 58825 INT INP/OBS CARE 3/75MIN Diagnoses Severe sepsis A41.9; R65.20 Acute on chronic hypoxic respiratory failure J96.21 Chronic systolic congestive heart failure I50.22 Presence of biventricular automatic cardioverter/defibrillator (AICD) Z95.810 Tremor R25.1 Atrial fibrillation I48.91 Atherogenic dyslipidemia E78.5 Benign essential hypertension I10 Cervical radiculopathy M54.12 BPH loc w urin obs/LUTS N40.1
[2023-02-23] MEDS ORDERED: PLASMA-LYTE A 500 ML IV ONE ×2 (11:45→17:17)
[2023-02-23 13:23] LABS: Base Excess ABG -3.2 mEq/L (-9-1.8); HCO3 ABG 20 mmol/L (19-24); Oxygen Saturation ABG 98.9 % (90-95); PCO2 ABG 28 mmHg (35-46); PO2 ABG 134 mmHg (80-95); pH ABG 7.45 (7.35-7.45)
[2023-02-23 13:24] LABS: Allen Test Pos (Pos)
[2023-02-23] MEDS ORDERED: ALBUTEROL HFA 8 GM INHALER INH PRN (14:11)
--- NOTE | 2023-02-23 14:26 | Pharmacy Report ---
Pharmacy PK ABX Note - Date of Service February 23, 2023 - Assessment and Plan Assessment 78 year old M receiving Vancomycin and Cefepime for empiric treatment of pulmonary infection. * Day #1 of antimicrobial therapy. * Recently evaluated in ER 02/04/23 and diagnosed with diverticulitis. Discharged home on Ciprofloxacin + Flagyl. * Returns today with hypotension (75/48 mmHg), fever (37.9oC), tachypnea (RR=42). Lactate 8.7, repeat 1.9. Procal 0.16. WBC 19.33k. SCr elevated to 1.59 today, baseline around 1.10. * Respiratory biofire negative. MRSA nasal swab positive. Blood cultures pending. * Requiring norepinephrine now for pressure support. Plan Vancomycin * Loading dose: 2750 mg IV x 1 * Maintenance dose: 750 mg IV every 12 hours * Regimen is predicted to achieve target AUC/MOHAN of 400-600 mg/L.hr * Level will be ordered if therapy is to extend beyond 48 hours. Cefepime * 2000 mg IV every 12 hours Pharmacy will continue to follow and will adjust dose/frequency as necessary. Thank you. Pharmacy has transitioned to AUC monitoring for vancomycin. AUC/MOHAN is the preferred PK/PD target and is associated with decreased risk of nephrotoxicity compared to traditional trough targets.
--- NOTE | 2023-02-23 14:57 | Critical Care Consultation ---
Date of Consultation February 23, 2023 Assessment & Plan (1) Sepsis: Reason Critically Ill: 78-year-old male with severe sepsis requiring vasoactive medication administration PLAN: Neuro: Chronic pain: Reported hand contractures -Oxycodone 10 mg twice daily Resp: Acute hypoxic respiratory failure: Bilateral lower lobe pneumonia -Possible aspiration component given bilateral lower lobes: Continue cefepime CV: Coronary artery disease: Pacemaker dependency Chronic congestive heart failure with reduced ejection fraction Atrial fibrillation: On systemic anticoagulation Acute arterial hypotension secondary to sepsis -Weaning vasoactive's Fluids/Renal: Acute kidney injury -Additional 500 mL Plasma-Lyte bolus, start Plasma-Lyte infusion at 80 mL per hour for slow judicious rehydration and weaning of vasoactive's ID: Cefepime IV -Await culture data GI/Nutrition: N.p.o. Heme: Systemic anticoagulation -Continue Coumadin will adjust for antibiotics DVT prophylaxis: Systemic anticoagulation Endocrine: ICU hyperglycemia protocol Vascular access: Peripheral IVs Disposition: ICU (2) Pneumonia: (3) Acute on chronic hypoxic respiratory failure: (4) Severe sepsis: (5) Tremor: (6) Coronary artery disease: (7) Atrial fibrillation: (8) Chronic systolic congestive heart failure: (9) Presence of biventricular automatic cardioverter/defibrillator (AICD): (10) Acute kidney failure: Supervising Physician Co-Signing Physician Notes I have personally spent 45 minutes of critical care time in the direct management of this patient. This is a life/limb threatening event. This includes time spent evaluating patient, direct bedside care, chart review, placing orders, interpretation of diagnostic studies, discussion with consultants, patient, and/or family members regarding treatment decisions, as well as other required patient management activities. This time is exclusive of all separately billable procedures, and teaching time and separate from and in addition to any other critical care service time. History of Present Illness Reason for Consultation: Severe sepsis Attending Physician: Nathan Iniguez MD History of Present Illness Patient is a 78-year-old male with past medical history of coronary artery disease heart failure with reduced ejection fraction, AICD pacemaker, emphysema history of A-fib hyperlipidemia, asthma who was recently seen in the ED and treated for diverticulitis who presents after feeling ill and profoundly weak this morning. In the emergency department he was found to have acute kidney injury presumptively secondary to sepsis from a respiratory source. He received 1500 cc bolus in the ED which was reduced because the patient's blood pressure improved and there is concern with given his reduced ejection fraction of worsening hypoxia secondary to volume overload. He was started on norepinephrine as well. He was transferred to the ICU for further evaluation and management. Allergies Allergy/AdvReac Type Severity Reaction Status Date / Time bee venom protein (honey bee) Allergy Severe SWELLING, Verified 01/05/23 12:58 SOB Penicillins Allergy Severe SWELLING, Verified 01/05/23 12:58 DIFFICULTY BREATHING lidocaine Allergy Mild RASH Verified 01/05/23 12:58 hydrocodone AdvReac Mild nausea Verified 01/05/23 12:58 oxycodone AdvReac Mild nausea-SLOW Verified 01/05/23 12:58 RELEASE IS OK Home Medications Medication Instructions Recorded Confirmed Type albuterol sulfate 90 mcg/actuation 2 puffs inhalation Q6H PRN 12/01/18 02/23/23 History aerosol inhaler Shortness Of Breath Or Wheezing bupropion HCl 100 mg tablet 100 mg PO BID 12/01/18 02/23/23 History docusate sodium 100 mg capsule 100 mg PO BID 12/01/18 02/23/23 History epinephrine 0.3 mg/0.3 mL 0.3 ml IM DIRECTED PRN 12/01/18 02/23/23 History injection, auto-injector Anaphylaxis finasteride 5 mg tablet 5 mg PO QAM 12/01/18 02/23/23 History aspirin 81 mg tablet,delayed 81 mg PO QAM 12/21/18 02/23/23 History release mometasone 50 mcg/actuation nasal 2 spray intranasal BID 12/21/18 02/23/23 History spray (Nasonex) oxycodone 10 mg tablet 10 mg PO Q12H 12/21/18 02/23/23 History sennosides 8.6 mg tablet 8.6 mg PO BID 12/21/18 02/23/23 History warfarin 5 mg tablet 2.5 mg PO . @TUES, TH12/21/18 02/23/23 History white petrolatum-mineral oil 56.8 1 applic ophthalmic (eye) HS 12/21/18 02/23/23 History %-42.5 % eye ointment (Refresh Lacri-Lube) metoclopramide HCl 10 mg tablet 10 mg PO Q8H 09/04/19 02/23/23 History cetirizine 10 mg capsule 10 mg PO HS 11/06/19 02/23/23 History potassium chloride 20 mEq 20 meq PO BID #200 tabs 01/05/20 02/23/23 Rx tablet,extended release bumetanide 1 mg tablet 1 mg PO QAM 02/29/20 02/23/23 History sacubitril 49 mg-valsartan 51 mg 1 tab PO BID 11/25/20 02/23/23 History tablet pantoprazole 40 mg tablet,delayed 80 mg PO .@NOON 03/10/21 02/23/23 History release carvedilol 25 mg tablet 25 mg PO BID #180 tabs 05/12/21 02/23/23 Rx rosuvastatin 10 mg tablet (Crestor) 10 mg PO QPM 12/03/21 02/23/23 History pramipexole 0.375 mg 0.375 mg PO QAM 12/02/22 02/23/23 History tablet,extended release 24 hr (Mirapex ER) tiotropium 2.5 mcg-olodaterol 2.5 2 puff inhalation QAM 12/02/22 02/23/23 History mcg/actuation mist for inhalation (Stiolto Respimat) lanolin-mineral oil-NaCl-w.pet 1 ea topical Q8H 02/23/23 02/23/23 History lotion nystatin 100,000 unit/gram topical 1 applic topical BID 02/23/23 02/23/23 History powder warfarin 5 mg tablet 5 mg PO . @ MN,WD,FR,ST,SN 02/23/23 02/23/23 History Patient History Medical History Asthma inhaler prn Atherogenic dyslipidemia Atrial fibrillation on warfarin--follows with Dr. Abreu Balance problem BPH loc w urin obs/LUTS CAD (coronary artery disease) s/p stent 2010 Cervicogenic headache Chronic back pain Chronic systolic congestive heart failure EF 25-30% Depression Elevated PSA Emphysema lung Hearing deficit History of DVT of lower extremity 2010 History of kidney stones History of urinary self-catheterization self caths every other night Ischemic cardiomyopathy Euvolemic at 11/23/22 cardio appt Legally blind Macular degeneration Migraine Myocardial Infarction 10/2010--follows with Dr. Abreu Presence of combination internal cardiac defibrillator (ICD) and pacemaker first placed 2010 @ [facility] replaced in 2014 & 2021 @ [facility]--biventricular [employer]. reports last check 11/25/22. Pulmonary embolism 1992 and 2010 after heart attack--follows with Dr. Abreu Sleep apnea bipap Spasticity upper limbs Warfarin anticoagulation Surgical History History of bilateral cataract extraction History of cardiac cath 10/2010 @ [facility]--1 stent placed History of cholecystectomy History of colonoscopy with polypectomy History of cystoscopy multiple History of esophagogastroduodenoscopy (EGD) History of eye surgery right--macular degeneration History of foot surgery plantar fasciitis History of Khari fundoplication History of open reduction and internal fixation (ORIF) procedure left foot--hardware removed History of prostate biopsy x3--precancerous, just monitoring for now History of prostate surgery 07/2016--[facility] prostate vaproization History of right inguinal hernia repair x3 History of tooth extraction S/P epidural steroid injection Family History Son Family history of diabetes mellitus Other Family history non-contributory No family history of adverse response to anesthesia Social History Smoking Status: Former smoker Second Hand Exposure: Yes (father smoked); Do You Dip or Chew Tobacco: No; Hx Alcohol Use: No Hx Substance Use: No Preferred Language: Romanian Communication Ability: Effective Co Pilot Required: No Beliefs That Will Affect Care: None marital status: Current Living Situation: Spouse current occupational status: retired Other Information That Helps Us Care for You: No Feels Safe at Home: Yes Safety Concerns: Feels Safe At This Time Assistive Devices: BiPap, Cane, Denture - Upper, Denture - Lower, Glasses and Special Shoe Physical Exam Physical Exam: General: Alert. nontoxic. Skin: Warm, dry, Head: Atraumatic Ears, nose, mouth and throat: airway patent Cardiovascular: Normal peripheral perfusion, on minimal amount of vasoactive medication Respiratory: no respiratory distress, able to speak in full sentences however drops into the mid 80s with conversation Gastrointestinal: Non distended Musculoskeletal: No deformity Results & Data Results & Data Vital Signs (Past 12 Hours) Vital Signs Temp Pulse Pulse Resp BP BP Pulse Ox 02/23/23 14:18 98 02/23/23 13:30 70 21 93/58 L 6 L 02/23/23 13:16 72 18 91/59 L 98 02/23/23 13:09 73 02/23/23 13:00 73 22 95/56 L 98 02/23/23 12:48 36.4 C L 74 24 84/54 L 97 02/23/23 12:15 79 19 91/54 L 97 02/23/23 11:56 80 18 92/56 L 96 02/23/23 11:30 88/54 L 02/23/23 11:20 81 21 81/51 L 96 02/23/23 11:06 89/55 L 02/23/23 10:45 87 30 H 78/56 L 96 02/23/23 10:35 86 30 H 79/54 L 95 02/23/23 10:25 86 32 H 77/53 L 95 02/23/23 10:06 94 02/23/23 10:04 88 32 H 75/48 L 94 02/23/23 09:49 89 32 H 83/52 L 95 02/23/23 09:34 97 H 40 H 91/49 L 95 02/23/23 09:21 100 H 40 H 95 02/23/23 09:06 104 H 02/23/23 09:03 37.9 C H 108 H 42 H 109/60 90 O2 Del Method O2 Flow Rate 02/23/23 14:18 Oxymask 6 02/23/23 13:30 Oxymask 02/23/23 13:16 Oxymask 6 02/23/23 13:09 02/23/23 13:00 Non-rebreather 6 02/23/23 12:48 Non-rebreather 10 02/23/23 12:15 Room Air 02/23/23 11:56 Non-rebreather 15 02/23/23 11:30 02/23/23 11:20 Non-rebreather 15 02/23/23 11:06 02/23/23 10:45 Non-rebreather 02/23/23 10:35 Non-rebreather 15 02/23/23 10:25 Non-rebreather 02/23/23 10:06 Non-rebreather 15 02/23/23 10:04 Non-rebreather 02/23/23 09:49 Non-rebreather 02/23/23 09:34 Non-rebreather 15 02/23/23 09:21 Non-rebreather 15 02/23/23 09:06 02/23/23 09:03 Non-rebreather Critical Care Results & Data Vital Signs (Past 12 Hours) Vital Signs Temp Pulse Pulse Resp BP BP Pulse Ox 02/23/23 16:15 60 22 96 02/23/23 16:15 113/65 02/23/23 16:00 60 20 96 02/23/23 16:00 107/63 02/23/23 15:45 66 23 96 02/23/23 15:45 99/60 L 02/23/23 15:30 65 21 97 02/23/23 15:30 98/51 L 02/23/23 15:15 68 20 95 02/23/23 15:15 99/63 L 02/23/23 15:00 66 23 96 02/23/23 15:00 99/60 L 02/23/23 14:45 71 25 H 95 02/23/23 14:45 103/61 02/23/23 14:30 73 31 H 95 02/23/23 14:30 95/59 L 02/23/23 14:25 71 29 H 95 02/23/23 14:25 156/92 H 02/23/23 14:15 72 34 H 95 02/23/23 14:15 92/59 L 02/23/23 14:15 92/59 L 02/23/23 14:05 70 27 H 96 02/23/23 14:05 91/59 L 02/23/23 14:05 91/59 L 02/23/23 14:24 02/23/23 14:24 36.2 C L 70 22 91/58 L 96 02/23/23 14:18 98 02/23/23 13:30 70 21 93/58 L 6 L 02/23/23 13:16 72 18 91/59 L 98 02/23/23 13:09 73 02/23/23 13:00 73 22 95/56 L 98 02/23/23 12:48 36.4 C L 74 24 84/54 L 97 02/23/23 12:15 79 19 91/54 L 97 02/23/23 11:56 80 18 92/56 L 96 02/23/23 11:30 88/54 L 02/23/23 11:20 81 21 81/51 L 96 02/23/23 11:06 89/55 L 02/23/23 10:45 87 30 H 78/56 L 96 02/23/23 10:35 86 30 H 79/54 L 95 02/23/23 10:25 86 32 H 77/53 L 95 02/23/23 10:06 94 02/23/23 10:04 88 32 H 75/48 L 94 02/23/23 09:49 89 32 H 83/52 L 95 02/23/23 09:34 97 H 40 H 91/49 L 95 02/23/23 09:21 100 H 40 H 95 02/23/23 09:06 104 H 02/23/23 09:03 37.9 C H 108 H 42 H 109/60 90 O2 Del Method O2 Flow Rate 02/23/23 16:15 02/23/23 16:15 02/23/23 16:00 02/23/23 16:00 02/23/23 15:45 02/23/23 15:45 02/23/23 15:30 02/23/23 15:30 02/23/23 15:15 02/23/23 15:15 02/23/23 15:00 02/23/23 15:00 02/23/23 14:45 02/23/23 14:45 02/23/23 14:30 02/23/23 14:30 02/23/23 14:25 02/23/23 14:25 02/23/23 14:15 02/23/23 14:15 02/23/23 14:15 02/23/23 14:05 02/23/23 14:05 02/23/23 14:05 02/23/23 14:24 Oxymask 3 02/23/23 14:24 Oxymask 3 02/23/23 14:18 Oxymask 6 02/23/23 13:30 Oxymask 02/23/23 13:16 Oxymask 6 02/23/23 13:09 02/23/23 13:00 Non-rebreather 6 02/23/23 12:48 Non-rebreather 10 02/23/23 12:15 Room Air 02/23/23 11:56 Non-rebreather 15 02/23/23 11:30 02/23/23 11:20 Non-rebreather 15 02/23/23 11:06 02/23/23 10:45 Non-rebreather 02/23/23 10:35 Non-rebreather 15 02/23/23 10:25 Non-rebreather 02/23/23 10:06 Non-rebreather 15 02/23/23 10:04 Non-rebreather 02/23/23 09:49 Non-rebreather 02/23/23 09:34 Non-rebreather 15 02/23/23 09:21 Non-rebreather 15 02/23/23 09:06 02/23/23 09:03 Non-rebreather Lab & Micro Results (Past 24 Hours) RBC 4.61 M/uL (4.70-6.10) L 02/23/23 WBC 19.33 K/ul (4.8-10.8) H 02/23/23 Hgb 13.7 g/dl (14.0-18.0) L 02/23/23 Hct 40.9 % (42.0-52.0) L 02/23/23 MCV 88.7 fL (80.0-100.0) 02/23/23 MCH 29.7 pg (25.0-34.0) 02/23/23 MCHC 33.5 g/dL (32.0-36.0) 02/23/23 RDW Standard Deviation 46.9 fL (36.4-46.3) H 02/23/23 RDW Coefficient of Variation 14.5 % (11.5-14.5) 02/23/23 Plt Count 300 K/uL (130-400) 02/23/23 MPV 11.1 fL (9.4-12.4) 02/23/23 Neutrophils (%) (Auto) 84.4 % 02/23/23 Lymphocytes (%) (Auto) 11.2 % 02/23/23 Monocytes # (Auto) 0.53 K/uL (0.11-0.59) 02/23/23 Eosinophils # (Auto) 0.05 K/uL (0.00-0.50) 02/23/23 Immature Granulocyte % (Auto) 1.1 % 02/23/23 Neutrophils # (Auto) 16.33 K/uL (1.40-6.50) H 02/23/23 Lymphocytes # (Auto) 2.16 K/uL (1.20-3.40) 02/23/23 Monocytes # (Auto) 0.53 K/uL (0.11-0.59) 02/23/23 Eosinophils # (Auto) 0.05 K/uL (0.00-0.50) 02/23/23 Basophils # (Auto) 0.05 K/uL (0.00-0.20) 02/23/23 Immature Granulocyte # (Auto) 0.21 K/uL (0.01-0.20) H 02/23 Na 136 mmol/L (136-145) 02/23/23 K 4.7 mmol/L (3.5-5.1) 02/23/23 Cl 104 mmol/L (98-107) 02/23/23 CO2 15 mmol/L (21-32) L 02/23/23 Anion Gap 17 (3-11) H 02/23/23 BUN 22 mg/dl (6-23) 02/23/23 Creatinine 1.59 mg/dl (0.6-1.4) H 02/23/23 Estimated GFR ( Amer) 47.5 ml/min 02/23/23 Estimated GFR (Non-Af Amer) 41.0 ml/min 02/23/23 BUN/Creatinine Ratio 13.8 (10-20) 02/23/23 Glu 215 mg/dl (70-99(Fasting)) H 02/23/23 Ca 9.0 mg/dl (8.6-10.3) 02/23/23 Phosphorus Level 2.0 mg/dl (2.5-4.9) L 02/23/23 Total Bilirubin 0.7 mg/dl (0.2-1.0) 02/23/23 AST 20 U/L (13-39) 02/23/23 ALT 16 U/L (7-52) 02/23/23 Alkaline Phosphatase 49 U/L (34-104) 02/23/23 TP 7.5 gm/dl (6.0-8.3) 02/23/23 Albumin 4.1 gm/dl (3.4-5.0) 02/23/23 Globulin 3.4 gm/dl (2.5-4.0) 02/23/23 Albumin/Globulin Ratio 1.2 (0.9-2) 02/23/23 Mg 1.9 mg/dl (1.7-2.4) 02/23/23 09:20 Calcium Level 9.0 mg/dl (8.6-10.3) 02/23/23 09:20 Prothromb Time International Ratio 2.5 (0.9-1.1) H 02/23/23 09 :20 Venous Blood pH 7.38 (7.36-7.41) 02/23/23 09:20 Venous Blood Partial Pressure CO2 27 mmHg (38-50) L 02/23/23 09 :20 Venous Blood Partial Pressure O2 52 mmHg 02/23/23 09:20 Venous Blood HCO3 16 mmol/L 02/23/23 09:20 Venous Blood Base Excess -7.6 mEq/L 02/23/23 09:20 Venous Blood Oxygen Saturation 86.0 % 02/23/23 09:20 Arterial Blood pH 7.45 (7.35-7.45) 02/23/23 13:08 Arterial Blood Partial Pressure CO2 28 mmHg (35-46) L 02/23/23 13:08 Arterial Blood Partial Pressure O2 134 mmHg (80-95) H 02/23/23 13:08 Arterial Blood HCO3 20 mmol/L (19-24) 02/23/23 13:08 Arterial Blood Base Excess -3.2 mEq/L (-9-1.8) 02/23/23 13:08 Arterial Blood Oxygen Saturation 98.9 % (90-95) H 02/23/23 13:0 8 Blood Gas Oxygen Given 02/23/23 13:08 Hans Test Pos (Pos) 02/23/23 13:08 Diagnostic Findings (Past 24 Hours) Chest X-Ray 02/23/23 09:17 XR chest 1V portable HISTORY: Chest pain, nonspecific COMPARISON: Chest 02/27/2022. FINDINGS: No pneumothorax. Stable cardiomegaly and a left-sided pacemaker/ defibrillator. A few bibasilar linear densities favor subsegmental atelectasis or scarring. The upper lung zones remain clear. No evidence for pulmonary edema. Trace left pleural effusion is suspected. There is a moderate hiatus hernia, unchanged. IMPRESSION: 1. Stable cardiomegaly. 2. Trace left pleural effusion. 3. Bibasilar linear densities persist and favor subsegmental atelectasis or scarring. 4. Moderate hiatus hernia again noted. ACT 112: Negative or not required by law. Electronically signed by: Lambert Hart M.D. 02/23/2023 9:46 AM Abdomen/Pelvis CT 02/23/23 10:24 CT abd pelvis wo con CLINICAL HISTORY: sepsis, hypoxia TECHNIQUE: Helical axial images of the abdomen and pelvis were obtained. Automated dose lowering techniques and/or adjustment according to patient size were utilized for this exam. This exam was performed without intravenous contrast. CT DOSE: 2149.73 mGy.cm COMPARISON: Comparison is made to CT abdomen pelvis 02/04/2023 FINDINGS: Lower chest: Atelectasis and bronchiectasis are seen. Likely superimposed airspace disease such as pneumonia. Liver: Hepatic steatosis is noted. Gallbladder and biliary tree: Patient is status post cholecystectomy. No intra- or extrahepatic biliary ductal dilation. Pancreas: Fatty replacement of the pancreas is seen. Spleen: Splenic cyst is seen. Adrenals: Unremarkable. Kidneys and ureters: Renal cysts are seen. Hyperdense right renal lesion jonathan ures 9 mm, possibly a hyperdense cyst, unchanged from prior exam. Nonobstructive stones are noted bilaterally. Bladder: [place] catheter is seen. Reproductive organs: Unremarkable. Bowel: Diverticulosis is seen without evidence of diverticulitis. The appendix is unremarkable. There is a moderate hiatal hernia. Duodenal diverticula are seen. Lymph nodes Retroperitoneal: Unremarkable. Pelvic: Subcentimeter lymph nodes are noted. Mesenteric: Unremarkable. Peritoneum: Minimal stranding is seen about the pelvis. Vessels: Atherosclerotic calcifications are seen. Abdominal wall: Status post right inguinal hernia repair. Bilateral fat- containing inguinal hernias are seen, the right residual right hernia contains a small portion of the urinary bladder. Bones: Degenerative changes in the visualized spine. IMPRESSION: 1. Findings are suggestive of pneumonia in the bilateral lower lungs superimposed upon atelectasis and bronchiectasis. 2. Otherwise no acute abnormalities are seen. Nonspecific stranding is seen about the pelvis. Clinical correlation for cystitis is recommended. 3. Diverticulosis without diverticulitis. 4. Additional findings as above. ACT 112: Negative or not required by law. Electronically signed by: Dakota Alexis M.D. 02/23/2023 11:[address] 02/23/23 10:24 CT SCAN OF THE CHEST WITHOUT IV CONTRAST CLINICAL HISTORY: Sepsis. Hypoxia. COMPARISON STUDY: Chest x-ray dated 02/23/2023. Chest CT dated 11/09/2013. TECHNIQUE: CT scan of the thorax was performed from the thoracic inlet to the upper abdomen. Images are reviewed in the axial, sagittal, and coronal planes. IV contrast was not administered for this examination as per the referring clinician. A dose lowering technique was utilized adhering to the principles of ALARA. FINDINGS: Thyroid: Mildly enlarged and heterogeneous. Thoracic aorta: There is atherosclerotic calcification of the thoracic aorta, which is normal in caliber and demonstrates standard 3-vessel arch anatomy. Heart: A cardiac pacemaker is present in the left chest wall. The heart is enlarged and without pericardial effusion. The coronary arteries are densely calcified. Myocardial fat deposition suggests previous ischemia. There is epicardial lipomatosis. The main pulmonary arteries appear dilated suggesting pulmonary artery hypertension. Lungs and pleural spaces: There is moderate emphysema. There is dependent bibasilar consolidation. No pleural effusion is identified. The trachea and central airways are clear. Mediastinum: There is no mediastinal lymphadenopathy. Tracie: Not well assessed without IV contrast. Axillae: There is no axillary lymphadenopathy. Upper abdomen: There is a moderate to large hiatal hernia. Postsurgical change is noted at the gastroesophageal junction. A 1.8 cm ovoid hypodensity in the spleen is been present dating back to 2013 and is statistically of doubtful significance. Skeletal structures: The skeletal structures are osteopenic. No lytic or blastic bony lesions are seen. Degenerative changes noted in the shoulders and spine. IMPRESSION: 1. Dependent airspace consolidation at both lung bases likely represent pneumonia/aspiration pneumonitis. Clinical correlation will be required and radiographic follow-up to resolution is recommended. Follow-up imaging should include both PA and lateral views. 2. Cardiomegaly and cardiac pacemaker. 3. Emphysema. 4. Moderate to large hiatal hernia. 5. Additional findings as above. ACT 112: Negative or not required by law. Electronically signed by: Ankush Byrnes M.D. 02/23/2023 11:37 AM I & O Totals 24 Hours 02/22/23 02/23/23 02/24/23 06:59 06:59 06:59 Intake Total 1796.068 / 1796.068 Output Total 550 / 550 Balance 1246.068 / 1246.068 Cumulative 02/23/23 08:46 thru 02/23/23 17:08 Intake Total 1796.068 Output Total 550 Balance 1246.068 RT Ventilator Mngmt (Last Documented) Ventilator Ordered Settings Respiratory Rate 22 02/23/23 16:15 Ventilator - PT Measurements Respiratory Rate 22 Coding Level of Care Code 77077 CRITICAL CARE 1ST 30-74M Diagnoses Sepsis A41.9 Acute respiratory failure type: with hypoxia Sepsis acute organ dysfunction status: with acute organ dysfunction Severe sepsis acute organ dysfunction type: acute respiratory failure Severe sepsis shock status: without septic shock Pneumonia J18.9 Laterality: bilateral Lung location: lower lobe of lung Pneumonia type: due to unspecified organism Acute on chronic hypoxic respiratory failure J96.21 Severe sepsis A41.9; R65.20 Tremor R25.1 Coronary artery disease I25.10 Atrial fibrillation I48.91 Chronic systolic congestive heart failure I50.22 Presence of biventricular automatic cardioverter/defibrillator (AICD) Z95.810 Acute kidney failure N17.9 Acute renal failure type: unspecified (1) Sepsis Acute respiratory failure type: with hypoxia Sepsis acute organ dysfunction status: with acute organ dysfunction Severe sepsis acute organ dysfunction type: acute respiratory failure Severe sepsis shock status: without septic shock (2) Pneumonia Laterality: bilateral Lung location: lower lobe of lung Pneumonia type: due to unspecified organism Qualified Code(s): J18.9 - Pneumonia, unspecified organism (10) Acute kidney failure Acute renal failure type: unspecified Qualified Code(s): N17.9 - Acute kidney failure, unspecified
[2023-02-23] MEDS: PANTOprazole 40 MG TAB PO SCH (15:08)
[2023-02-23] MEDS: WARFARIN SOD 2.5 MG TAB PO SCH (15:08)
[2023-02-23] MEDS: ICU Protocol for HYPERglycemia SCH ×2 (16:56→20:06)
[2023-02-23] MEDS ORDERED: PLASMA-LYTE A 1,000 ML IV SCH (17:30)
[2023-02-23] MEDS: carvediloL 25 MG TAB PO SCH (19:34)
[2023-02-23] MEDS: buPROPion HCl 100 MG TABLET PO SCH (20:06)
[2023-02-23] MEDS: DOCUSATE SODIUM 100 MG CAP PO SCH (20:06)
[2023-02-23] MEDS: oxyCODONE HCL 10 MG TABCR (OxyCONTIN) PO SCH (20:06)
[2023-02-23] MEDS: VANCOMYCIN HCL 750 MG in SODIUM CHLORIDE 0.9% 250 ML IV SCH (20:06)
[2023-02-23] MEDS: SENNA 8.6 MG TAB PO SCH (20:06)
[2023-02-23] MEDS ORDERED: oxyCODONE HCL IR 5 MG TAB (IMMEDIATE RELEASE) PO SCH (21:00)
[2023-02-23] MEDS ORDERED: VANCOMYCIN HCL 1,500 MG in SODIUM CHLORIDE 0.9% 500 ML IV SCH (22:00)
[2023-02-23] MEDS: CEFEPIME 2,000 MG in SYRINGE 0 ML IV SCH (23:02)
[2023-02-24] MEDS: NOREPINEPHRINE/D5W 4 MG/250 ML PLCT IV SCH (01:07)
[2023-02-24 02:31] LABS: Basophils # (auto) 0.03 K/uL (0.00-0.20); Basophils % (auto) 0.2 %; Eosinophils # (auto) 0.03 K/uL (0.00-0.50); Eosinophils % (auto) 0.2 %; Hematocrit (blood only) 33.2 % (42.0-52.0); Hemoglobin 11.3 g/dl (14.0-18.0); Immature Granulocytes # (auto) 0.17 K/uL (0.01-0.20); Lymphocytes # (auto) 1.73 K/uL (1.20-3.40); Lymphocytes % (auto) 10.3 %; Mean Corpuscular Volume 88.1 fL (80.0-100.0); Mean Platelet Volume 10.6 fL (9.4-12.4); Monocytes # (auto) 1.08 K/uL (0.11-0.59); Monocytes % (auto) 6.4 %; Neutrophils # (auto) 13.71 K/uL (1.40-6.50); Neutrophils % (auto) 81.9 %; Platelet Count 211 K/uL (130-400); RDW Coefficient of Variation 14.7 % (11.5-14.5); RDW Standard Deviation 47.5 fL (36.4-46.3); Red Blood Count 3.77 M/uL (4.70-6.10); White Blood Count 16.75 K/ul (4.8-10.8)
[2023-02-24 02:54] LABS: Albumin Globulin Ratio 1.1 (0.9-2); Albumin Level 3.1 gm/dl (3.4-5.0); BUN Creatinine Ratio 19.3 (10-20); Bilirubin,Total 0.8 mg/dl (0.2-1.0); Calcium 7.7 mg/dl (8.6-10.3); Creatinine Clr Calc Pharmacy 64.4 ml/min; Est GFR (Non-African American) 61.3 ml/min; Globulin 2.7 gm/dl (2.5-4.0); Magnesium 2.1 mg/dl (1.7-2.4); Phosphorus 3.3 mg/dl (2.5-4.9); Potassium 3.4 mmol/L (3.5-5.1); Total Protein 5.8 gm/dl (6.0-8.3)
[2023-02-24] MEDS: POTASSIUM CHLORIDE CRTAB 20 MEQ TABCR PO SCH ×2 (03:45→08:45)
[2023-02-24] MEDS: ICU ELECTROLYTE REPLACEMENT PROTOCOL SCH ×2 (03:45→19:11)
[2023-02-24] MEDS: ICU Protocol for HYPERglycemia SCH ×4 (06:38→20:17)
--- NOTE | 2023-02-24 07:15 | Critical Care Progress Note ---
Date of Service February 24, 2023 Assessment & Plan (1) Sepsis: Plan: Reason Critically Ill: 78-year-old male with severe sepsis requiring vasoactive medication administration PLAN: Neuro: Chronic pain: Reported hand contractures -Oxycodone 10 mg twice daily Resp: Acute hypoxic respiratory failure: Bilateral lower lobe pneumonia -Possible aspiration component given bilateral lower lobes: transition to cefdinir, no flagyl due to low concern for anaerobic coverage, bilateral lower lobe not consistent with atypical organism trying to minimize impact for Coumadin dosing with single anti-infective agent -Discontinuing vancomycin, no clinical evidence to support necrotizing pneumonia/MRSA pneumonia CV: Coronary artery disease: Pacemaker dependency Chronic congestive heart failure with reduced ejection fraction Atrial fibrillation: On systemic anticoagulation: Will need dose adjustment given antibiotics Acute arterial hypotension secondary to sepsis: Resolved Fluids/Renal: Acute kidney injury: Improved -Stop maintenance fluid ID: Cefepime IV convert to cefdinir oral -Await culture data GI/Nutrition: Speech consult: Reviewed no overt signs and symptoms concerning for aspiration -Will defer video swallow study to hospitalist medicine team -Cardiac diet Heme: Systemic anticoagulation -Continue Coumadin will need adjustment for antibiotics DVT prophylaxis: Systemic anticoagulation Endocrine: ICU hyperglycemia protocol Vascular access: Peripheral IVs Disposition: Patient stable for downgrade out of ICU (2) Pneumonia: (3) Acute on chronic hypoxic respiratory failure: (4) Severe sepsis: (5) Tremor: (6) Coronary artery disease: (7) Atrial fibrillation: (8) Chronic systolic congestive heart failure: (9) Presence of biventricular automatic cardioverter/defibrillator (AICD): (10) Acute kidney failure: Admission and Anticipated Discharge Date Admission Date: February 23, 2023 Subjective No overnight events, feels much better than yesterday Physical Exam Physical Exam: General: Alert. nontoxic. Skin: Warm, dry, Head: Atraumatic Ears, nose, mouth and throat: airway patent Cardiovascular: Normal peripheral perfusion Respiratory: no respiratory distress, able to speak in full sentences without supplemental oxygen without drop in oxygen saturations Gastrointestinal: Non distended Musculoskeletal: No deformity Results & Data Results & Data Vital Signs (Past 12 Hours) Vital Signs Pulse Resp BP Pulse Ox O2 Del Method O2 Flow Rate 02/24/23 05:00 60 21 95 02/24/23 05:00 106/57 L 02/24/23 04:00 60 17 96 02/24/23 04:00 97/55 L 02/24/23 03:45 106/56 L 02/24/23 03:45 62 29 H 95 02/24/23 03:30 60 22 95 02/24/23 03:30 94/52 L 02/24/23 03:15 109/56 L 02/24/23 03:15 60 28 H 96 02/24/23 03:00 60 26 H 95 02/24/23 03:00 98/51 L 02/24/23 02:45 106/57 L 02/24/23 02:45 60 25 H 96 02/24/23 02:30 90/52 L 02/24/23 02:30 60 29 H 94 02/24/23 02:00 61 28 H 94 02/24/23 02:00 109/54 L 02/24/23 01:30 105/55 L 02/24/23 01:30 60 27 H 94 02/24/23 03:08 60 21 95 2 02/24/23 01:00 61 28 H 109/59 L 94 02/24/23 00:30 106/59 L 02/24/23 00:30 61 28 H 93 02/24/23 00:00 60 28 H 94 02/24/23 00:00 103/52 L 02/23/23 23:30 60 21 99/61 L 94 02/23/23 23:15 62 28 H 95 02/23/23 23:20 60 25 H 94 02/23/23 23:10 60 21 94 02/23/23 23:00 64 30 H 98 02/23/23 23:00 109/72 02/23/23 22:50 56 L 29 H 96 02/23/23 22:40 59 L 28 H 95 02/23/23 22:30 65 31 H 94 02/23/23 22:20 60 24 95 02/23/23 22:10 60 19 95 02/23/23 22:00 63 27 H 94 02/23/23 22:00 93/56 L 02/23/23 21:50 65 32 H 94 02/23/23 21:40 64 33 H 95 02/23/23 21:30 66 25 H 94 02/23/23 21:20 64 18 95 02/23/23 21:10 64 20 96 02/23/23 21:00 60 22 95 02/23/23 21:00 91/51 L 02/23/23 20:50 66 26 H 93 02/23/23 20:40 67 28 H 92 02/23/23 20:31 62 26 H 94 02/23/23 20:31 117/79 02/23/23 20:30 68 33 H 95 02/23/23 20:20 77 20 95 02/23/23 20:10 66 27 H 94 02/23/23 20:00 69 32 H 93 02/23/23 20:00 95/58 L 02/23/23 19:50 66 27 H 93 02/23/23 19:40 63 29 H 93 02/23/23 19:30 61 26 H 94 02/23/23 19:30 104/61 02/23/23 19:20 80 27 H 96 02/23/23 19:15 103/57 L 02/23/23 19:15 70 30 H 95 02/23/23 23:33 Nasal Cannula 2 02/23/23 22:50 61 96 2 02/23/23 22:35 69 25 H 95 2 Critical Care Results & Data Vital Signs (Past 12 Hours) Vital Signs Pulse Resp BP Pulse Ox O2 Del Method O2 Flow Rate 02/24/23 05:00 60 21 95 02/24/23 05:00 106/57 L 02/24/23 04:00 60 17 96 02/24/23 04:00 97/55 L 02/24/23 03:45 106/56 L 02/24/23 03:45 62 29 H 95 02/24/23 03:30 60 22 95 02/24/23 03:30 94/52 L 02/24/23 03:15 109/56 L 02/24/23 03:15 60 28 H 96 02/24/23 03:00 60 26 H 95 02/24/23 03:00 98/51 L 02/24/23 02:45 106/57 L 02/24/23 02:45 60 25 H 96 02/24/23 02:30 90/52 L 02/24/23 02:30 60 29 H 94 02/24/23 02:00 61 28 H 94 02/24/23 02:00 109/54 L 02/24/23 01:30 105/55 L 02/24/23 01:30 60 27 H 94 11/01/23 03:08 60 21 95 2 02/24/23 01:00 61 28 H 109/59 L 94 02/24/23 00:30 106/59 L 02/24/23 00:30 61 28 H 93 02/24/23 00:00 60 28 H 94 02/24/23 00:00 103/52 L 02/23/23 23:30 60 21 99/61 L 94 02/23/23 23:15 62 28 H 95 02/23/23 23:20 60 25 H 94 02/23/23 23:10 60 21 94 02/23/23 23:00 64 30 H 98 02/23/23 23:00 109/72 02/23/23 22:50 56 L 29 H 96 02/23/23 22:40 59 L 28 H 95 02/23/23 22:30 65 31 H 94 02/23/23 22:20 60 24 95 02/23/23 22:10 60 19 95 02/23/23 22:00 63 27 H 94 02/23/23 22:00 93/56 L 02/23/23 21:50 65 32 H 94 02/23/23 21:40 64 33 H 95 02/23/23 21:30 66 25 H 94 02/23/23 21:20 64 18 95 02/23/23 21:10 64 20 96 02/23/23 21:00 60 22 95 02/23/23 21:00 91/51 L 02/23/23 20:50 66 26 H 93 02/23/23 20:40 67 28 H 92 02/23/23 20:31 62 26 H 94 02/23/23 20:31 117/79 02/23/23 20:30 68 33 H 95 02/23/23 20:20 77 20 95 02/23/23 20:10 66 27 H 94 02/23/23 20:00 69 32 H 93 02/23/23 20:00 95/58 L 02/23/23 19:50 66 27 H 93 02/23/23 19:40 63 29 H 93 02/23/23 19:30 61 26 H 94 02/23/23 19:30 104/61 02/23/23 19:20 80 27 H 96 02/23/23 23:33 Nasal Cannula 2 02/23/23 22:50 61 96 2 02/23/23 22:35 69 25 H 95 2 Lab & Micro Results (Past 24 Hours) RBC 3.77 M/uL (4.70-6.10) L 02/24/23 WBC 16.75 K/ul (4.8-10.8) H 02/24/23 Hgb 11.3 g/dl (14.0-18.0) L 02/24/23 Hct 33.2 % (42.0-52.0) L 02/24/23 MCV 88.1 fL (80.0-100.0) 02/24/23 MCH 30.0 pg (25.0-34.0) 02/24/23 MCHC 34.0 g/dL (32.0-36.0) 02/24/23 RDW Standard Deviation 47.5 fL (36.4-46.3) H 02/24/23 RDW Coefficient of Variation 14.7 % (11.5-14.5) H 02/24/23 Plt Count 211 K/uL (130-400) 02/24/23 MPV 10.6 fL (9.4-12.4) 02/24/23 Neutrophils (%) (Auto) 81.9 % 02/24/23 Lymphocytes (%) (Auto) 10.3 % 02/24/23 Monocytes # (Auto) 1.08 K/uL (0.11-0.59) H 02/24/23 Eosinophils # (Auto) 0.03 K/uL (0.00-0.50) 02/24/23 Immature Granulocyte % (Auto) 1.0 % 02/24/23 Neutrophils # (Auto) 13.71 K/uL (1.40-6.50) H 02/24/23 Lymphocytes # (Auto) 1.73 K/uL (1.20-3.40) 02/24/23 Monocytes # (Auto) 1.08 K/uL (0.11-0.59) H 02/24/23 Eosinophils # (Auto) 0.03 K/uL (0.00-0.50) 02/24/23 Basophils # (Auto) 0.03 K/uL (0.00-0.20) 02/24/23 Immature Granulocyte # (Auto) 0.17 K/uL (0.01-0.20) 3 Na 137 mmol/L (136-145) 02/24/23 K 3.4 mmol/L (3.5-5.1) L 02/24/23 Cl 109 mmol/L (98-107) H 02/24/23 CO2 20 mmol/L (21-32) L 02/24/23 Anion Gap 8 (3-11) 02/24/23 BUN 22 mg/dl (6-23) 02/24/23 Creatinine 1.14 mg/dl (0.6-1.4) 02/24/23 Estimated GFR ( Amer) 71.0 ml/min 02/24/23 Estimated GFR (Non-Af Amer) 61.3 ml/min 02/24/23 BUN/Creatinine Ratio 19.3 (10-20) 02/24/23 Glu 113 mg/dl (70-99(Fasting)) H 02/24/23 Ca 7.7 mg/dl (8.6-10.3) L 02/24/23 Phosphorus Level 3.3 mg/dl (2.5-4.9) 02/24/23 Total Bilirubin 0.8 mg/dl (0.2-1.0) 02/24/23 AST 107 U/L (13-39) H 02/24/23 ALT 38 U/L (7-52) 02/24/23 Alkaline Phosphatase 37 U/L (34-104) 02/24/23 TP 5.8 gm/dl (6.0-8.3) L 02/24/23 Albumin 3.1 gm/dl (3.4-5.0) L 02/24/23 Globulin 2.7 gm/dl (2.5-4.0) 02/24/23 Albumin/Globulin Ratio 1.1 (0.9-2) 02/24/23 Mg 2.1 mg/dl (1.7-2.4) 02/24/23 02:04 Calcium Level 7.7 mg/dl (8.6-10.3) L 02/24/23 02:04 Arterial Blood pH 7.45 (7.35-7.45) 02/23/23 13:08 Arterial Blood Partial Pressure CO2 28 mmHg (35-46) L 02/23/23 13:08 Arterial Blood Partial Pressure O2 134 mmHg (80-95) H 02/23/23 13:08 Arterial Blood HCO3 20 mmol/L (19-24) 02/23/23 13:08 Arterial Blood Base Excess -3.2 mEq/L (-9-1.8) 02/23/23 13:08 Arterial Blood Oxygen Saturation 98.9 % (90-95) H 02/23/23 13:0 8 Blood Gas Oxygen Given 02/23/23 13:08 Hans Test Pos (Pos) 02/23/23 13:08 Diagnostic Findings (Past 24 Hours) Chest X-Ray 02/23/23 09:17 XR chest 1V portable HISTORY: Chest pain, nonspecific COMPARISON: Chest 02/27/2022. FINDINGS: No pneumothorax. Stable cardiomegaly and a left-sided pacemaker/defibrillator. A few bibasilar linear densities favor subsegmental atelectasis or scarring. The upper lung zones remain clear. No evidence for pulmonary edema. Trace left pleural effusion is suspected. There is a moderate hiatus hernia, unchanged. IMPRESSION: 1. Stable cardiomegaly. 2. Trace left pleural effusion. 3. Bibasilar linear densities persist and favor subsegmental atelectasis or scarring. 4. Moderate hiatus hernia again noted. ACT 112: Negative or not required by law. Electronically signed by: Lambert Hart M.D. 02/23/2023 9:46 AM Abdomen/Pelvis CT 02/23/23 10:24 CT abd pelvis wo con CLINICAL HISTORY: sepsis, hypoxia TECHNIQUE: Helical axial images of the abdomen and pelvis were obtained. Automated dose lowering techniques and/or adjustment according to patient size were utilized for this exam. This exam was performed without intravenous contrast. CT DOSE: 2149.73 mGy.cm COMPARISON: Comparison is made to CT abdomen pelvis 02/04/2023 FINDINGS: Lower chest: Atelectasis and bronchiectasis are seen. Likely superimposed airspace disease such as pneumonia. Liver: Hepatic steatosis is noted. Gallbladder and biliary tree: Patient is status post cholecystectomy. No intra- or extrahepatic biliary ductal dilation. Pancreas: Fatty replacement of the pancreas is seen. Spleen: Splenic cyst is seen. Adrenals: Unremarkable. Kidneys and ureters: Renal cysts are seen. Hyperdense right renal lesion measures 9 mm, possibly a hyperdense cyst, unchanged from prior exam. Nonobstructive stones are noted bilaterally. Bladder: [place] catheter is seen. Reproductive organs: Unremarkable. Bowel: Diverticulosis is seen without evidence of diverticulitis. The appendix is unremarkable. There is a moderate hiatal hernia. Duodenal diverticula are seen. Lymph nodes Retroperitoneal: Unremarkable. Pelvic: Subcentimeter lymph nodes are noted. Mesenteric: Unremarkable. Peritoneum: Minimal stranding is seen about the pelvis. Vessels: Atherosclerotic calcifications are seen. Abdominal wall: Status post right inguinal hernia repair. Bilateral fat- containing inguinal hernias are seen, the right residual right hernia contains a small portion of the urinary bladder. Bones: Degenerative changes in the visualized spine. IMPRESSION: 1. Findings are suggestive of pneumonia in the bilateral lower lungs superimposed upon atelectasis and bronchiectasis. 2. Otherwise no acute abnormalities are seen. Nonspecific stranding is seen about the pelvis. Clinical correlation for cystitis is recommended. 3. Diverticulosis without diverticulitis. 4. Additional findings as above. ACT 112: Negative or not required by law. Electronically signed by: Dakota Alexis M.D. 02/23/2023 11:[address] 02/23/23 10:24 CT SCAN OF THE CHEST WITHOUT IV CONTRAST CLINICAL HISTORY: Sepsis. Hypoxia. COMPARISON STUDY: Chest x-ray dated 02/23/2023. Chest CT dated 11/09/2013. TECHNIQUE: CT scan of the thorax was performed from the thoracic inlet to the upper abdomen. Images are reviewed in the axial, sagittal, and coronal planes. IV contrast was not administered for this examination as per the referring clinician. A dose lowering technique was utilized adhering to the principles of ALARA. FINDINGS: Thyroid: Mildly enlarged and heterogeneous. Thoracic aorta: There is atherosclerotic calcification of the thoracic aorta, which is normal in caliber and demonstrates standard 3-vessel arch anatomy. Heart: A cardiac pacemaker is present in the left chest wall. The heart is enlarged and without pericardial effusion. The coronary arteries are densely calcified. Myocardial fat deposition suggests previous ischemia. There is epicardial lipomatosis. The main pulmonary arteries appear dilated suggesting pu lmonary artery hypertension. Lungs and pleural spaces: There is moderate emphysema. There is dependent bibasilar consolidation. No pleural effusion is identified. The trachea and central airways are clear. Mediastinum: There is no mediastinal lymphadenopathy. Tracie: Not well assessed without IV contrast. Axillae: There is no axillary lymphadenopathy. Upper abdomen: There is a moderate to large hiatal hernia. Postsurgical change is noted at the gastroesophageal junction. A 1.8 cm ovoid hypodensity in the spleen is been present dating back to 2014 and is statistically of doubtful significance. Skeletal structures: The skeletal structures are osteopenic. No lytic or blastic bony lesions are seen. Degenerative changes noted in the shoulders and spine. IMPRESSION: 1. Dependent airspace consolidation at both lung bases likely represent pneumonia/aspiration pneumonitis. Clinical correlation will be required and radiographic follow-up to resolution is recommended. Follow-up imaging should include both PA and lateral views. 2. Cardiomegaly and cardiac pacemaker. 3. Emphysema. 4. Moderate to large hiatal hernia. 5. Additional findings as above. ACT 112: Negative or not required by law. Electronically signed by: Ankush Byrnes M.D. 02/23/2023 11:37 AM I & O Totals 24 Hours 02/23/23 02/24/23 02/25/23 06:59 06:59 06:59 Intake Total 3701.758 / 3701.758 Output Total 1400 / 1400 Balance 2301.758 / 2301.758 Cumulative 02/23/23 08:46 thru 02/24/23 05:22 Intake Total 3701.758 Output Total 1400 Balance 2301.758 RT Ventilator Mngmt (Last Documented) Ventilator Ordered Settings Respiratory Rate 21 02/24/23 05:00 Ventilator - PT Measurements Respiratory Rate 21 Coding Level of Care Code 29274 SUB INP/OBS CARE 3/50MIN Diagnoses Sepsis A41.9; R65.21; J96.01 Acute respiratory failure type: with hypoxia Sepsis acute organ dysfunction status: with acute organ dysfunction Sepsis type: sepsis due to unspecified organism Severe sepsis acute organ dysfunction type: acute respiratory failure Severe sepsis shock status: with septic shock Pneumonia J18.9 Laterality: bilateral Lung location: lower lobe of lung Pneumonia type: due to unspecified organism Acute on chronic hypoxic respiratory failure J96.21 Severe sepsis A41.9; R65.20 Tremor R25.1 Coronary artery disease I25.10 Atrial fibrillation I48.91 Chronic systolic congestive heart failure I50.22 Presence of biventricular automatic cardioverter/defibrillator (AICD) Z95.810 Acute kidney failure N17.9 (1) Sepsis Acute respiratory failure type: with hypoxia Sepsis acute organ dysfunction status: with acute organ dysfunction Sepsis type: sepsis due to unspecified organism Severe sepsis acute organ dysfunction type: acute respiratory failure Severe sepsis shock status: with septic shock Qualified Code(s): A41.9 - Sepsis, unspecified organism; R65.21 - Severe sepsis with septic shock; J96.01 - Acute respiratory failure with hypoxia (2) Pneumonia Laterality: bilateral Lung location: lower lobe of lung Pneumonia type: due to unspecified organism Qualified Code(s): J18.9 - Pneumonia, unspecified organism
[2023-02-24] MEDS: VANCOMYCIN HCL 750 MG in SODIUM CHLORIDE 0.9% 250 ML IV SCH ×2 (08:39→20:09)
[2023-02-24] MEDS: buPROPion HCl 100 MG TABLET PO SCH ×2 (08:41→20:05)
[2023-02-24] MEDS: ASPIRIN 81 MG ECTAB PO SCH (08:41)
[2023-02-24] MEDS: SENNA 8.6 MG TAB PO SCH ×2 (08:42→20:05)
[2023-02-24] MEDS: UMECLIDINIUM/VILANTEROL 62.5/25MCG 7 PUFFS/INHALER INH SCH (08:43)
[2023-02-24] MEDS: CEFEPIME 2,000 MG in SYRINGE 0 ML IV SCH (08:43)
[2023-02-24] MEDS: oxyCODONE HCL 10 MG TABCR (OxyCONTIN) PO SCH ×2 (08:44→20:04)
[2023-02-24] MEDS: PANTOprazole 40 MG TAB PO SCH (11:38)
[2023-02-24] MEDS: DOCUSATE SODIUM 100 MG CAP PO SCH ×2 (11:39→20:05)
--- NOTE | 2023-02-24 14:28 | Hospitalist Progress Note ---
Date of Service February 24, 2023 Assessment & Plan (1) Severe sepsis: Plan: Sepsis, Acute Hypoxic Respiratory Failure Secondary to pneumonia Improved clinically Has come off of pressors Received aggressive fluid resuscitation upon admission Continue vancomycin and cefepime MRSA nares positive Bio fire negative Procalcitonin negative Leukocytosis improved from 19,000-16,000 Lactic acidosis resolved (2) Acute on chronic hypoxic respiratory failure: Plan: - 2/2 PNA, tx of sepsis/PNA as noted Improved Now requiring 2 L of oxygen per nasal cannula Uses no oxygen at home Bilateral pneumonia seen on chest imaging Speech evaluation being done for concern for aspiration (3) Chronic systolic congestive heart failure: Plan: Heart failure reduced ejection fraction, CAD, ICD/pacer, paroxysmal Afib Echo 07/2022 stable, EF 25-30% with grade 1 diastolic dysfunction and diffuse hypokinesis with additional inferior wall akinesis, posterior wall akinesis. Last ICD interrogation 12/2022, no episodes of A-fib/flutter; 6 episodes of nonsustained SVT/PVCs up to 22 seconds. Pacing percentage less than 95% Bumex held while hypotensive, carvedilol/Entresto held while hypotensive. Resume carvedilol first when blood pressure tolerating Anticoagulated on Coumadin, goal INR 23 Aspirin 81 mg continued Resume Crestor when tolerating p.o. EKG paced, no acute ischemic findings. Clinically without chest pain. Suspect elevated troponin due to demand from sepsis. Trended (4) Presence of biventricular automatic cardioverter/defibrillator (AICD): Plan: Paced rhythm noted (5) Tremor: (6) Atrial fibrillation: Plan: Paced rhythm. Patient is with therapeutic INR of 2.5. Continue warfarin with goal INR 23 point (7) Atherogenic dyslipidemia: (8) Benign essential hypertension: Plan: Hypertension Carvedilol, Entresto held as noted, Bumex held as noted. Resume when BP and Cr permit (9) Cervical radiculopathy: Plan: Hx of Idiopathic peripheral neuropathy, tremor, cervical radiculopathy Follows with neurology. Has a history of cervical radiculopathy with hand atrophy stable. Significant improvement on Mirapex as outpt. Continued. (10) BPH loc w urin obs/LUTS: Plan: - [place] i nplace. Strict I&os. (11) Acute kidney injury: Plan: creatinine was 1.5 upon admission, now down to 1 in response to fluids Monitor BMP closely Avoid nephrotoxins MERT most likely prerenal due to sepsis Plan DVT prophylaxis: Anticoagulated Diet: Heart healthy Disposition: ICU CODE STATUS: Full code Transfer out of the ICU Admission and Anticipated Discharge Date Admission Date: February 23, 2023 Subjective patient says he feels much better compared to when he first came to the hospital yesterday. Review of Systems Review of Systems: All systems reviewed & are unremarkable except as noted in Subjective Physical Exam Physical Exam: General: Awake, conversant Heart: S1, S2/regular rate and rhythm, no murmur rubs or gallops Lungs: Clear to auscultation bilaterally. Normal effort Abdomen: Soft/nontender/nondistended. No hepatosplenomegaly Extremities: No clubbing/cyanosis. bilateral upper and lower extremity 2+ pitting edema Behavior: Appropriate, cooperative Results & Data Results & Data Vital Signs (Past 12 Hours) Vital Signs Temp Pulse Resp BP Pulse Ox O2 Flow Rate 02/24/23 11:00 61 25 H 93 02/24/23 11:00 95/49 L 02/24/23 10:01 70 29 H 93 02/24/23 10:01 97/57 L 02/24/23 10:00 76 30 H 93 02/24/23 09:01 59 L 27 H 94 02/24/23 09:01 113/66 02/24/23 09:00 68 21 93 02/24/23 08:00 55 L 22 94 02/24/23 07:00 62 29 H 94 02/24/23 07:00 99/55 L 02/24/23 11:31 36.8 C 02/24/23 05:00 60 21 95 02/24/23 05:00 106/57 L 02/24/23 04:00 60 17 96 02/24/23 04:00 97/55 L 02/24/23 03:45 106/56 L 02/24/23 03:45 62 29 H 95 02/24/23 03:30 60 22 95 02/24/23 03:30 94/52 L 02/24/23 03:15 109/56 L 02/24/23 03:15 60 28 H 96 02/24/23 03:00 60 26 H 95 02/24/23 03:00 98/51 L 02/24/23 02:45 106/57 L 02/24/23 02:45 60 25 H 96 02/24/23 02:30 90/52 L 02/24/23 02:30 60 29 H 94 02/24/23 03:08 60 21 95 2 Laboratory Results Abnormal lab results 02/23/23 02/23/23 02/24/23 Range/Units 16:54 20:19 02:04 WBC (4.8-10.8) K/ul RBC (4.70-6.10) M/uL Hgb (14.0-18.0) g/dl Hct (42.0-52.0) % RDW Std Deviation (36.4-46.3) fL RDW Coeff of Jerry (11.5-14.5) % Neut # (Auto) (1.40-6.50) K/uL [place] # (Auto) (0.11-0.59) K/uL Potassium (3.5-5.1) mmol/L Chloride (98-107) mmol/L Carbon Dioxide (21-32) mmol/L Glucose (70-99(Fasting)) mg/dl POC Glucose 131 H (70-99) mg/dl Calcium (8.6-10.3) mg/dl AST (13-39) U/L Troponin I High Sens 710.5 H* D 501.5 H* D (0-20) pg/ml Total Protein (6.0-8.3) gm/dl Albumin (3.4-5.0) gm/dl 02/24/23 02/24/23 02/24/23 Range/Units 02:04 02:09 02:30 WBC 16.75 H (4.8-10.8) K/ul RBC 3.77 L (4.70-6.10) M/uL Hgb 11.3 L (14.0-18.0) g/dl Hct 33.2 L (42.0-52.0) % RDW Std Deviation 47.5 H (36.4-46.3) fL RDW Coeff of Jerry 14.7 H (11.5-14.5) % Neut # (Auto) 13.71 H (1.40-6.50) K/uL [place] # (Auto) 1.08 H (0.11-0.59) K/uL Potassium 3.4 L D (3.5-5.1) mmol/L Chloride 109 H (98-107) mmol/L Carbon Dioxide 20 L (21-32) mmol/L Glucose 113 H (70-99(Fasting)) mg/dl POC Glucose 105 H (70-99) mg/dl Calcium 7.7 L (8.6-10.3) mg/dl AST 107 H (13-39) U/L Troponin I High Sens (0-20) pg/ml Total Protein 5.8 L D (6.0-8.3) gm/dl Albumin 3.1 L (3.4-5.0) gm/dl PG Care Time/CCT Total # of Minutes Spent Total Time Spent with Patient: Total time spent is greater than 50% in coordination of care (as documented) at patient's floor/unit and/or counseling patient: Coding Level of Care Code 35585 SUB INP/OBS CARE 2/35MIN Diagnoses Severe sepsis A41.9; R65.20 Acute on chronic hypoxic respiratory failure J96.21 Chronic systolic congestive heart failure I50.22 Presence of biventricular automatic cardioverter/defibrillator (AICD) Z95.810 Tremor R25.1 Atrial fibrillation I48.91 Atherogenic dyslipidemia E78.5 Benign essential hypertension I10 Cervical radiculopathy M54.12 BPH loc w urin obs/LUTS N40.1 Acute kidney injury N17.9
[2023-02-24] MEDS: WARFARIN SOD 5 MG TAB PO SCH (16:13)
[2023-02-24] MEDS: CEFDINIR 300 MG CAP PO SCH (20:05)
[2023-02-24] MEDS: carvediloL 25 MG TAB PO SCH (20:06)
[2023-02-25] MEDS: ACETAMINOPHEN 325 MG TAB PO PRN (02:09)
[2023-02-25 04:56] LABS: Basophils # (auto) 0.02 K/uL (0.00-0.20); Basophils % (auto) 0.2 %; Eosinophils # (auto) 0.15 K/uL (0.00-0.50); Eosinophils % (auto) 1.2 %; Hematocrit (blood only) 33.8 % (42.0-52.0); Hemoglobin 11.2 g/dl (14.0-18.0); Immature Granulocytes # (auto) 0.06 K/uL (0.01-0.20); Immature Granulocytes % (auto) 0.5 %; Lymphocytes # (auto) 1.76 K/uL (1.20-3.40); Lymphocytes % (auto) 13.7 %; Mean Corpuscular Hemoglobin 29.9 pg (25.0-34.0); Mean Corpuscular Hgb Conc 33.1 g/dL (32.0-36.0); Mean Corpuscular Volume 90.1 fL (80.0-100.0); Monocytes # (auto) 0.78 K/uL (0.11-0.59); Monocytes % (auto) 6.1 %; Neutrophils # (auto) 10.07 K/uL (1.40-6.50); Neutrophils % (auto) 78.3 %; Platelet Count 208 K/uL (130-400); RDW Coefficient of Variation 14.8 % (11.5-14.5); RDW Standard Deviation 49.1 fL (36.4-46.3); Red Blood Count 3.75 M/uL (4.70-6.10); White Blood Count 12.84 K/ul (4.8-10.8)
[2023-02-25 05:01] LABS: Magnesium 2.2 mg/dl (1.7-2.4); Phosphorus 1.9 mg/dl (2.5-4.9)
[2023-02-25 05:43] LABS: INR 2.3 (0.9-1.1); Prothrombin Time 23.6 Seconds (9.0-12.0)
[2023-02-25] MEDS: SENNA 8.6 MG TAB PO SCH ×2 (08:05→20:45)
[2023-02-25] MEDS: ASPIRIN 81 MG ECTAB PO SCH (08:05)
[2023-02-25] MEDS: CEFDINIR 300 MG CAP PO SCH ×2 (08:05→20:43)
[2023-02-25] MEDS: UMECLIDINIUM/VILANTEROL 62.5/25MCG 7 PUFFS/INHALER INH SCH (08:05)
[2023-02-25] MEDS: buPROPion HCl 100 MG TABLET PO SCH ×2 (08:05→20:44)
[2023-02-25] MEDS: carvediloL 25 MG TAB PO SCH ×2 (08:05→20:44)
[2023-02-25] MEDS: ICU Protocol for HYPERglycemia SCH ×2 (08:06→12:37)
[2023-02-25] MEDS: oxyCODONE HCL 10 MG TABCR (OxyCONTIN) PO SCH ×2 (08:07→20:43)
[2023-02-25 08:36] LABS: Creatinine Clr Calc Pharmacy 68.1 ml/min; Est GFR (Non-African American) 64.7 ml/min; Potassium 4.2 mmol/L (3.5-5.1)
[2023-02-25] MEDS: DOCUSATE SODIUM 100 MG CAP PO SCH ×2 (08:45→20:43)
[2023-02-25] MEDS: FINASTERIDE 5 MG TAB PO SCH (10:36)
--- NOTE | 2023-02-25 12:53 | Hospitalist Progress Note ---
Date of Service February 25, 2023 Assessment & Plan (1) Severe sepsis: Plan: Sepsis, Acute Hypoxic Respiratory Failure Secondary to pneumonia Improved clinically Has come off of pressors Received aggressive fluid resuscitation upon admission Continue cefdinir MRSA nares positive Bio fire negative Procalcitonin negative Leukocytosis improved from 19,000-16,000 - 12,000 Lactic acidosis resolved Noted the patient is still requiring 5 L of oxygen. He uses no oxygen at home. (2) Acute on chronic hypoxic respiratory failure: Plan: - 2/2 PNA, tx of sepsis/PNA as noted Improved Now requiring 5 L of oxygen per nasal cannula Uses no oxygen at home Asked the nurse to titrate O2 down. If unsuccessful, he was asked to notify me. May consider a dose of Lasix Bilateral pneumonia seen on chest imaging speech evaluation completed. No significant concern for aspiration. (3) Chronic systolic congestive heart failure: Plan: Heart failure reduced ejection fraction, CAD, ICD/pacer, paroxysmal Afib Echo 07/2022 stable, EF 25-30% with grade 1 diastolic dysfunction and diffuse hypokinesis with additional inferior wall akinesis, posterior wall akinesis. Last ICD interrogation 12/2022, no episodes of A-fib/flutter; 6 episodes of nonsustained SVT/PVCs up to 22 seconds. Pacing percentage less than 95% Bumex held while hypotensive, carvedilol/Entresto held while hypotensive. carvedilol resumed Anticoagulated on Coumadin, goal INR 23 Aspirin 81 mg continued Resume Crestor EKG paced, no acute ischemic findings. Clinically without chest pain. Suspect elevated troponin due to demand from sepsis. Echocardiogram ordered, pending Consulted patient's primary counsel (4) Presence of biventricular automatic cardioverter/defibrillator (AICD): Plan: Paced rhythm noted (5) Tremor: (6) Atrial fibrillation: Plan: Paced rhythm. Patient is with therapeutic INR. Continue warfarin with goal INR 23 point (7) Atherogenic dyslipidemia: (8) Benign essential hypertension: Plan: Hypertension Entresto held as noted, Bumex held as noted. Resume when BP and Cr permit Carvedilol resumed (9) Cervical radiculopathy: Plan: Hx of Idiopathic peripheral neuropathy, tremor, cervical radiculopathy Follows with neurology. Has a history of cervical radiculopathy with hand atrophy stable. Significant improvement on Mirapex as outpt. Continued. (10) BPH loc w urin obs/LUTS: Plan: - [place] i nplace. Strict I&os. (11) Acute kidney injury: Plan: creatinine was 1.5 upon admission, now down to 1 in response to fluids Monitor BMP closely Avoid nephrotoxins Resolved MERT most likely prerenal due to sepsis Plan DVT prophylaxis: Anticoagulated with Coumadin Diet: Heart healthy CODE STATUS: Full code Admission and Anticipated Discharge Date Admission Date: February 23, 2023 Subjective Patient feels better overall. Denies chest pain or shortness of breath. Noted that he is on 5 L of oxygen. He uses no oxygen at home. Review of Systems Review of Systems: All systems reviewed & are unremarkable except as noted in Subjective Physical Exam Physical Exam: General: Awake, conversant Heart: S1, S2/regular rate and rhythm, no murmur rubs or gallops Lungs: Clear to auscultation bilaterally. Normal effort Abdomen: Soft/nontender/nondistended. No hepatosplenomegaly Extremities: No clubbing/cyanosis. Bilateral upper extremity edema has improved significantly. He now has bilateral lower extremity 1+ pitting edema. Behavior: Appropriate, cooperative Results & Data Results & Data Vital Signs (Past 12 Hours) Vital Signs Temp Pulse Pulse Resp BP Pulse Ox O2 Del Method 02/25/23 10:54 36.8 C 66 20 103/66 93 Nasal Cannula 02/25/23 10:30 95 02/25/23 08:00 62 02/25/23 08:00 Nasal Cannula 02/25/23 07:09 36.5 C 67 20 114/65 95 Nasal Cannula 02/25/23 04:35 64 27 H 117/68 96 BiPAP 02/25/23 04:34 36.5 C 02/25/23 01:51 66 26 H 95 O2 Flow Rate 02/25/23 10:54 5.0 02/25/23 10:30 02/25/23 08:00 02/25/23 08:00 02/25/23 07:09 5.0 02/25/23 04:35 02/25/23 04:34 02/25/23 01:51 3 Laboratory Results Abnormal lab results 02/24/23 02/24/23 02/25/23 Range/Units 20:13 20:16 03:56 WBC 12.84 H (4.8-10.8) K/ul RBC 3.75 L (4.70-6.10) M/uL Hgb 11.2 L (14.0-18.0) g/dl Hct 33.8 L (42.0-52.0) % RDW Std Deviation 49.1 H (36.4-46.3) fL RDW Coeff of Jerry 14.8 H (11.5-14.5) % Neut # (Auto) 10.07 H (1.40-6.50) K/uL [place] # (Auto) 0.78 H (0.11-0.59) K/uL PT 23.6 H (9.0-12.0) Seconds INR 2.3 H (0.9-1.1) Chloride 108 H (98-107) mmol/L Carbon Dioxide 19 L (21-32) mmol/L BUN 24 H (6-23) mg/dl BUN/Creatinine Ratio 22.0 H (10-20) Glucose 115 H (70-99(Fasting)) mg/dl POC Glucose 181 H 134 H (70-99) mg/dl Calcium 8.0 L (8.6-10.3) mg/dl Phosphorus 1.9 L D (2.5-4.9) mg/dl PG Care Time/CCT Total # of Minutes Spent Total Time Spent with Patient: Total time spent is greater than 50% in coordination of care (as documented) at patient's floor/unit and/or counseling patient: Coding Level of Care Code 87637 SUB INP/OBS CARE 2/35MIN Diagnoses Severe sepsis A41.9; R65.20 Acute on chronic hypoxic respiratory failure J96.21 Chronic systolic congestive heart failure I50.22 Presence of biventricular automatic cardioverter/defibrillator (AICD) Z95.810 Tremor R25.1 Atrial fibrillation I48.91 Atherogenic dyslipidemia E78.5 Benign essential hypertension I10 Cervical radiculopathy M54.12 BPH loc w urin obs/LUTS N40.1 Acute kidney injury N17.9
--- NOTE | 2023-02-25 13:40 | XCELERA ---
[id number] \\[id number]
[2023-02-25] MEDS: PANTOprazole 40 MG TAB PO SCH (14:03)
--- NOTE | 2023-02-25 14:54 | Cardiology Consultation ---
Date of Consultation February 25, 2023 Assessment & Plan (1) Elevated troponin: No changes on the echo to suggest acute coronary syndrome, no anginal chest pain and no ischemic EKG changes. This is most consistent with a type II non-ST elevation ND secondary to sepsis plus or minus hypoxia and acute on chronic renal insufficiency. Conservative medical management for coronary disease as below. (2) Acute respiratory failure with hypoxia: His respiratory status and hypoxia have improved with treatment including antibiotics and oxygen. I have reviewed the x-ray and CT scan which does not suggest acute decompensated heart failure. Continue treatment per primary team. (3) Acute kidney injury: Acute on chronic renal insufficiency. GFR is improving with IV fluid resuscitation. He is now at baseline. We can return to his prior medical regimen. (4) Ischemic cardiomyopathy: Severe LV systolic dysfunction, historically grade 1 or grade 2 diastolic dysfunction, segmental wall motion abnormalities consistent with prior ND and persistent global hypokinesis. He has no evidence of volume overload at this time. Agree with reinstituting his chronic heart failure regimen with carvedilol 25 mg p.o. twice daily and Entresto 49 mg / 51 mg p.o. twice daily, and Bumex 1 mg in the morning as tolerated by blood pressure and her renal function. (5) Atrial fibrillation: Known paroxysmal atrial fibrillation. He did have some tachycardia episodes on the monitor. With carvedilol being reintroduced he will likely maintain target heart rate. Continue warfarin with target INR of 2.0-3.0. (6) Coronary artery disease: Currently his heart rate and blood pressure are at target. Continue guideline directed medical therapy for secondary prevention of coronary disease to include; low-dose aspirin, carvedilol 25 mg p.o. twice daily, Crestor 10 mg daily, and valsartan as part of Entresto. (7) Atherogenic dyslipidemia: Patient is high risk. He is already on high intensity statin therapy with Crestor 10 mg daily. Plan Patient will continue treatment for his apparent pneumonia. Reinstitution of his chronic heart failure, atrial fibrillation, and coronary artery disease regimens. He will then be appropriate for discharge from a cardiovascular standpoint. History of Present Illness Reason for Consultation: Elevated troponin Attending Physician: Randy Helms MD History of Present Illness Pleasant 78-year-old gentleman who is well-known to me over a decade of following him. He has a history of ischemic cardiomyopathy EF generally around 25 to 30%. Prior ND and stenting. He is status post biventricular pacer/ICD for his cardiomyopathy. He has a history of stroke and paroxysmal atrial fibrillation. He is followed by me in the cardiology office as well as by myself and Christelle Isabel in the heart failure clinic. He also has a history of chronic renal insufficiency which has been relatively mild. In January of this year he was admitted for acute diverticulitis and subsequently discharged. He returned on February 23 of this year after suffering from fever and weakness with shortness of breath beginning about 24 to 36 hours prior to admission. Initial chest imaging suggested bilateral pneumonia and concern for aspiration pneumonia. During work-up his troponin was obtained. Initially was at 142 peaking at 710 and most recently at 501. He had no chest pain with admission. Patient is very familiar with his anginal symptoms. Patient was also noted to have decreased urination beginning about 12 hours prior to admission. He was admitted for sepsis and had borderline hypotension. His cardiac/blood pressure medications were held. He had evidence of significant dehydration and he was resuscitated. His initial white blood cell count was very elevated at 19.33, lactate was similarly elevated at 8.7, and his initial GFR was calculated at 41. After IV antibiotics and fluid resuscitation he improved in the ICU. He has subsequently been transferred to the PCU. He continues to improve. Most recent GFR calculated at 64.7. Significant improvement in his white blood cell count now at 16.75. INR has remained therapeutic at 2.3 today. Patient reports no anginal type chest pain. He did have shortness of breath, profound fatigue and weakness, and a fever which he noted prior to the admission. This got particularly worse after he was up all night not feeling well and then was in his recliner at home. He became so weak that he could not ambulate. He does not recall the arrival of EMS or transport to the hospital. His is present with him today. He denies any syncope, near syncope, orthopnea, PND, racing heartbeat, palpitations, or edema. His oral intake was reduced prior to the admission. He was also having some difficulty with urination and noted some burning. These have resolved with antibiotics and IV fluid resuscitation. Allergies Allergy/AdvReac Type Severity Reaction Status Date / Time bee venom protein (honey bee) Allergy Severe SWELLING, Verified 01/05/23 12:58 SOB Penicillins Allergy Severe SWELLING, Verified 01/05/23 12:58 DIFFICULTY BREATHING lidocaine Allergy Mild RASH Verified 01/05/23 12:58 hydrocodone AdvReac Mild nausea Verified 01/05/23 12:58 oxycodone AdvReac Mild nausea-SLOW Verified 01/05/23 12:58 RELEASE IS OK Home Medications Medication Instructions Recorded Confirmed Type albuterol sulfate 90 mcg/actuation 2 puffs inhalation Q6H PRN 12/01/18 02/23/23 History aerosol inhaler Shortness Of Breath Or Wheezing bupropion HCl 100 mg tablet 100 mg PO BID 12/01/18 02/23/23 History docusate sodium 100 mg capsule 100 mg PO BID 12/01/18 02/23/23 History epinephrine 0.3 mg/0.3 mL 0.3 ml IM DIRECTED PRN 12/01/18 02/23/23 History injection, auto-injector Anaphylaxis finasteride 5 mg tablet 5 mg PO QAM 12/01/18 02/23/23 History aspirin 81 mg tablet,delayed 81 mg PO QAM 12/21/18 02/23/23 History release mometasone 50 mcg/actuation nasal 2 spray intranasal BID 12/21/18 02/23/23 History spray (Nasonex) oxycodone 10 mg tablet 10 mg PO Q12H 12/21/18 02/23/23 History sennosides 8.6 mg tablet 8.6 mg PO BID 12/21/18 02/23/23 History warfarin 5 mg tablet 2.5 mg PO . @TUES, THURS 12/21/18 02/23/23 History white petrolatum-mineral oil 56.8 1 applic ophthalmic (eye) HS 12/21/18 02/23/23 History %-42.5 % eye ointment (Refresh Lacri-Lube) metoclopramide HCl 10 mg tablet 10 mg PO Q8H 09/04/19 02/23/23 History cetirizine 10 mg capsule 10 mg PO HS 11/06/19 02/23/23 History potassium chloride 20 mEq 20 meq PO BID #200 tabs 01/05/20 02/23/23 Rx tablet,extended release bumetanide 1 mg tablet 1 mg PO QAM 02/29/20 02/23/23 History sacubitril 49 mg-valsartan 51 mg 1 tab PO BID 11/25/20 02/23/23 History tablet pantoprazole 40 mg tablet,delayed 80 mg PO .@NOON 03/10/21 02/23/23 History release carvedilol 25 mg tablet 25 mg PO BID #180 tabs 05/12/21 02/23/23 Rx rosuvastatin 10 mg tablet (Crestor) 10 mg PO QPM 12/03/21 02/23/23 History pramipexole 0.375 mg 0.375 mg PO QAM 12/02/22 02/23/23 History tablet,extended release 24 hr (Mirapex ER) tiotropium 2.5 mcg-olodaterol 2.5 2 puff inhalation QAM 12/02/22 02/23/23 History mcg/actuation mist for inhalation (Stiolto Respimat) lanolin-mineral oil-NaCl-w.pet 1 ea topical Q8H 02/23/23 02/23/23 History lotion nystatin 100,000 unit/gram topical 1 applic topical BID 02/23/23 02/23/23 History powder warfarin 5 mg tablet 5 mg PO . @ MN,WD,FR,ST,SN 02/23/23 02/23/23 History Patient History Medical History History of kidney stones Presence of combination internal cardiac defibrillator (ICD) and pacemaker first placed 2010 @ [facility] replaced in 2014 & 2021 @ [facility]--biventricular [employer]. reports last check 11/25/22. Emphysema lung Legally blind Spasticity upper limbs Cervicogenic headache Atherogenic dyslipidemia Chronic back pain History of urinary self-catheterization self caths every other night History of DVT of lower extremity 2010 Macular degeneration Hearing deficit Depression Migraine CAD (coronary artery disease) s/p stent 2010 Myocardial Infarction 10/2010--follows with Dr. Abreu Atrial fibrillation on warfarin--follows with Dr. Abreu Pulmonary embolism 1992 and 2010 after heart attack--follows with Dr. Abreu Asthma inhaler prn Sleep apnea bipap Chronic systolic congestive heart failure EF 25-30% BPH loc w urin obs/LUTS Elevated PSA Ischemic cardiomyopathy Euvolemic at 11/23/22 cardio appt Balance problem Warfarin anticoagulation Surgical History S/P epidural steroid injection History of foot surgery plantar fasciitis History of open reduction and internal fixation (ORIF) procedure left foot--hardware removed History of prostate biopsy x3--precancerous, just monitoring for now History of prostate surgery 07/2016--[facility] prostate vaproization History of cystoscopy multiple History of colonoscopy with polypectomy History of esophagogastroduodenoscopy (EGD) History of right inguinal hernia repair x3 History of Khari fundoplication History of cholecystectomy History of tooth extraction History of eye surgery right--macular degeneration History of bilateral cataract extraction History of cardiac cath 10/2010 @ [facility]--1 stent placed Family History Son Family history of diabetes mellitus Other Family history non-contributory No family history of adverse response to anesthesia Social History Smoking Status: Former smoker Second Hand Exposure: Yes (father smoked); Do You Dip or Chew Tobacco: No; Hx Alcohol Use: No Hx Substance Use: No Preferred Language: Yakut Communication Ability: Effective 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 Sclera are anicteric. ENMT: Oral mucosa is pink moist and intact Neck: No JVD Respiratory: Clear to auscultation bilaterally. No wheezing, rhonchi, or rales. Diminished air movement. Cardiovascular: Regular rate and rhythm. Soft systolic murmur. No edema. Neurologic: Cognition is intact. Speech is fluent. No focal deficits. Psychiatric: A+Ox3, euthymic affect Results & Data Vital Signs (Past 12 Hours) Vital Signs Temp Pulse Pulse Resp BP Pulse Ox O2 Del Method 02/25/23 10:54 36.8 C 66 20 103/66 93 Nasal Cannula 02/25/23 10:30 95 02/25/23 08:00 62 02/25/23 08:00 Nasal Cannula 02/25/23 07:09 36.5 C 67 20 114/65 95 Nasal Cannula 02/25/23 04:35 64 27 H 117/68 96 BiPAP 02/25/23 04:34 36.5 C O2 Flow Rate 02/25/23 10:54 5.0 02/25/23 10:30 02/25/23 08:00 02/25/23 08:00 02/25/23 07:09 5.0 02/25/23 04:35 02/25/23 04:34 PG Care Time/CCT Total # of Minutes Spent Total Time Spent with Patient: Total time spent is greater than 50% in coordination of care (as documented) at patient's floor/unit and/or counseling patient: Coding Level of Care Code 96016 INT INP/OBS CARE 3/75MIN Diagnoses Elevated troponin R79.89 Acute respiratory failure with hypoxia J96.01 Acute kidney injury N17.9 Ischemic cardiomyopathy I25.5 Atrial fibrillation I48.91 Coronary artery disease I25.10 Atherogenic dyslipidemia E78.5
[2023-02-25] MEDS: WARFARIN SOD 2.5 MG TAB PO SCH (17:27)
[2023-02-25] MEDS: ROSUVASTATIN CALCIUM 10 MG TAB PO SCH (20:44)
[2023-02-26 06:59] LABS: Basophils # (auto) 0.03 K/uL (0.00-0.20); Basophils % (auto) 0.3 %; Eosinophils # (auto) 0.27 K/uL (0.00-0.50); Hematocrit (blood only) 34.7 % (42.0-52.0); Hemoglobin 11.3 g/dl (14.0-18.0); Immature Granulocytes # (auto) 0.12 K/uL (0.01-0.20); Immature Granulocytes % (auto) 1.3 %; Lymphocytes % (auto) 17.6 %; Mean Corpuscular Hemoglobin 29.5 pg (25.0-34.0); Mean Corpuscular Hgb Conc 32.6 g/dL (32.0-36.0); Mean Corpuscular Volume 90.6 fL (80.0-100.0); Mean Platelet Volume 11.1 fL (9.4-12.4); Monocytes # (auto) 0.57 K/uL (0.11-0.59); Monocytes % (auto) 6.3 %; Neutrophils # (auto) 6.52 K/uL (1.40-6.50); Neutrophils % (auto) 71.5 %; Platelet Count 227 K/uL (130-400); RDW Coefficient of Variation 14.7 % (11.5-14.5); RDW Standard Deviation 48.6 fL (36.4-46.3); Red Blood Count 3.83 M/uL (4.70-6.10); White Blood Count 9.11 K/ul (4.8-10.8)
[2023-02-26 07:17] LABS: Calcium 8.3 mg/dl (8.6-10.3); Creatinine Clr Calc Pharmacy 86.4 ml/min; Est GFR (African American) 95.8 ml/min; Est GFR (Non-African American) 82.7 ml/min; Magnesium 2.1 mg/dl (1.7-2.4)
[2023-02-26] MEDS: UMECLIDINIUM/VILANTEROL 62.5/25MCG 7 PUFFS/INHALER INH SCH (08:33)
[2023-02-26] MEDS: DOCUSATE SODIUM 100 MG CAP PO SCH ×2 (08:34→20:34)
[2023-02-26] MEDS: FINASTERIDE 5 MG TAB PO SCH (08:34)
[2023-02-26] MEDS: SENNA 8.6 MG TAB PO SCH ×2 (08:34→20:37)
[2023-02-26] MEDS: ASPIRIN 81 MG ECTAB PO SCH (08:34)
[2023-02-26] MEDS: buPROPion HCl 100 MG TABLET PO SCH ×2 (08:34→20:34)
[2023-02-26] MEDS: carvediloL 25 MG TAB PO SCH ×2 (08:34→20:34)
[2023-02-26] MEDS: CEFDINIR 300 MG CAP PO SCH ×2 (08:35→20:34)
[2023-02-26] MEDS: BUMETANIDE 1 MG TAB PO SCH (08:39)
[2023-02-26] MEDS: oxyCODONE HCL 10 MG TABCR (OxyCONTIN) PO SCH ×2 (08:39→20:33)
[2023-02-26] MEDS: VALSARTAN/SACUBITRIL 51/49 MG TAB PO SCH ×2 (08:39→20:46)
[2023-02-26] MEDS: PANTOprazole 40 MG TAB PO SCH (13:13)
--- NOTE | 2023-02-26 13:38 | Hospitalist Progress Note ---
Date of Service February 26, 2023 Assessment & Plan (1) Severe sepsis: Plan: Severe sepsis with septic shock Secondary to pneumonia Improved clinically Has come off of pressors Received aggressive fluid resuscitation upon admission Continue cefdinir MRSA nares positive Bio fire negative Procalcitonin negative Leukocytosis resolved Lactic acidosis resolved Noted the patient is still requiring 4 L of oxygen. He uses no oxygen at home. (2) Acute on chronic hypoxic respiratory failure: Plan: - 2/2 PNA, tx of sepsis/PNA as noted Improved Now requiring 5 L of oxygen per nasal cannula Uses no oxygen at home Asked the nurse to titrate O2 down. Bilateral pneumonia seen on chest imaging speech evaluation completed. No significant concern for aspiration. (3) Chronic systolic congestive heart failure: Plan: Heart failure reduced ejection fraction, CAD, ICD/pacer, paroxysmal Afib Echo 07/2022 stable, EF 25-30% with grade 1 diastolic dysfunction and diffuse hypokinesis with additional inferior wall akinesis, posterior wall akinesis. Last ICD interrogation 12/2022, no episodes of A-fib/flutter; 6 episodes of nonsustained SVT/PVCs up to 22 seconds. Pacing percentage less than 95% Seems to be euvolemic primary Buckle Gluer evaluated the patient. Recommended resuming carvedilol, Entresto, Bumex. All resumed. Anticoagulated on Coumadin, goal INR 23 Aspirin 81 mg continued Resumed Crestor EKG paced, no acute ischemic findings. Clinically without chest pain. Suspec t elevated troponin due to demand ischemia from sepsis. Echocardiogram Reviewed (4) Presence of biventricular automatic cardioverter/defibrillator (AICD): Plan: Paced rhythm noted (5) Tremor: (6) Atrial fibrillation: Plan: Paced rhythm. Patient is with therapeutic INR. Continue warfarin with goal INR 23 (7) Atherogenic dyslipidemia: (8) Benign essential hypertension: Plan: Hypertension resume Bumex, Entresto Carvedilol resumed (9) Cervical radiculopathy: Plan: Hx of Idiopathic peripheral neuropathy, tremor, cervical radiculopathy Follows with neurology. Has a history of cervical radiculopathy with hand atrophy stable. Significant improvement on Mirapex as outpt. Continued. (10) BPH loc w urin obs/LUTS: Plan: - [place] in place. Strict I&os. Patient requests that the [place] stay in place until a day prior to discharge normally straight caths himself (11) Acute kidney injury: Plan: Monitor BMP closely Avoid nephrotoxins Resolved MERT most likely prerenal due to sepsis Plan DVT prophylaxis: Anticoagulated with Coumadin Diet: Heart healthy CODE STATUS: Full code Admission and Anticipated Discharge Date Admission Date: February 23, 2023 Subjective patient feels better. Still feeling weak in general. Denies chest pain or shortness of breath. Review of Systems Review of Systems: All systems reviewed & are unremarkable except as noted in Subjective Physical Exam Physical Exam: General: Awake, conversant Heart: S1, S2/regular rate and rhythm, no murmur rubs or gallops Lungs: Clear to auscultation bilaterally. Normal effort Abdomen: Soft/nontender/nondistended. No hepatosplenomegaly Extremities: No clubbing/cyanosis. Bilateral upper extremity edema has improved significantly. He now has bilateral lower extremity 1+ pitting edema. Behavior: Appropriate, cooperative Results & Data Results & Data Vital Signs (Past 12 Hours) Vital Signs Temp Pulse Pulse Resp BP Pulse Ox O2 Del Method 02/26/23 12:24 36.4 C L 62 20 105/63 93 Nasal Cannula 02/26/23 08:48 36.8 C 69 20 121/96 94 Nasal Cannula 02/26/23 08:00 62 02/26/23 02:54 37.2 C 63 20 125/69 97 CPAP 02/26/23 02:30 67 24 95 O2 Flow Rate 02/26/23 12:24 4.0 02/26/23 08:48 4.0 02/26/23 08:00 02/26/23 02:54 02/26/23 02:30 3 Laboratory Results Abnormal lab results 02/26/23 Range/Units 05:52 RBC 3.83 L (4.70-6.10) M/uL Hgb 11.3 L (14.0-18.0) g/dl Hct 34.7 L (42.0-52.0) % RDW Std Deviation 48.6 H (36.4-46.3) fL RDW Coeff of Jerry 14.7 H (11.5-14.5) % Neut # (Auto) 6.52 H (1.40-6.50) K/uL Sodium 134 L (136-145) mmol/L BUN/Creatinine Ratio 23.0 H (10-20) Glucose 102 H (70-99(Fasting)) mg/dl Calcium 8.3 L (8.6-10.3) mg/dl PG Care Time/CCT Total # of Minutes Spent Total Time Spent with Patient: Total time spent is greater than 50% in coordination of care (as documented) at patient's floor/unit and/or counseling patient: Coding Level of Care Code 19278 SUB INP/OBS CARE 2/35MIN Diagnoses Severe sepsis A41.9; R65.20 Acute on chronic hypoxic respiratory failure J96.21 Chronic systolic congestive heart failure I50.22 Presence of biventricular automatic cardioverter/defibrillator (AICD) Z95.810 Tremor R25.1 Atrial fibrillation I48.91 Atherogenic dyslipidemia E78.5 Benign essential hypertension I10 Cervical radiculopathy M54.12 BPH loc w urin obs/LUTS N40.1 Acute kidney injury N17.9
[2023-02-26] MEDS: WARFARIN SOD 5 MG TAB PO SCH (17:31)
[2023-02-26] MEDS: ROSUVASTATIN CALCIUM 10 MG TAB PO SCH (20:36)
[2023-02-27 08:18] LABS: INR 1.9 (0.9-1.1)
[2023-02-27 08:32] LABS: BUN Creatinine Ratio 23.9 (10-20); Calcium 8.5 mg/dl (8.6-10.3); Creatinine Clr Calc Pharmacy 70.5 ml/min; Est GFR (Non-African American) 79.4 ml/min; Potassium 3.8 mmol/L (3.5-5.1)
[2023-02-27] MEDS: SENNA 8.6 MG TAB PO SCH ×2 (09:04→20:36)
[2023-02-27] MEDS: DOCUSATE SODIUM 100 MG CAP PO SCH ×2 (09:04→20:39)
[2023-02-27] MEDS: oxyCODONE HCL 10 MG TABCR (OxyCONTIN) PO SCH ×2 (09:04→20:35)
[2023-02-27] MEDS: carvediloL 25 MG TAB PO SCH ×2 (09:04→20:37)
[2023-02-27] MEDS: buPROPion HCl 100 MG TABLET PO SCH ×2 (09:04→20:36)
[2023-02-27] MEDS: BUMETANIDE 1 MG TAB PO SCH (09:04)
[2023-02-27] MEDS: VALSARTAN/SACUBITRIL 51/49 MG TAB PO SCH ×2 (09:04→20:35)
[2023-02-27] MEDS: ASPIRIN 81 MG ECTAB PO SCH (09:04)
[2023-02-27] MEDS: CEFDINIR 300 MG CAP PO SCH ×2 (09:04→20:37)
[2023-02-27] MEDS: FINASTERIDE 5 MG TAB PO SCH (09:04)
--- NOTE | 2023-02-27 11:45 | Hospitalist Progress Note ---
Date of Service February 27, 2023 Assessment & Plan (1) Severe sepsis: Plan: Severe sepsis with septic shock Secondary to pneumonia Improved clinically Has come off of pressors Received aggressive fluid resuscitation upon admission Continue cefdinir MRSA nares positive Bio fire negative Procalcitonin negative Leukocytosis resolved Lactic acidosis resolved Noted the patient is still requiring 3 L of oxygen. He uses no oxygen at home. Incentive spirometer (2) Acute on chronic hypoxic respiratory failure: Plan: - 2/2 PNA, tx of sepsis/PNA as noted Improved Now requiring 3 L of oxygen per nasal cannula. Uses no oxygen at home Asked the nurse to titrate O2 down. Bilateral pneumonia seen on chest imaging speech evaluation completed. No significant concern for aspiration. Bottle Blowing Machine Tender parameter (3) Chronic systolic congestive heart failure: Plan: Heart failure reduced ejection fraction, CAD, ICD/pacer, paroxysmal Afib Echo 07/2022 stable, EF 25-30% with grade 1 diastolic dysfunction and diffuse hypokinesis with additional inferior wall akinesis, posterior wall akinesis. Last ICD interrogation 12/2022, no episodes of A-fib/flutter; 6 episodes of nonsustained SVT/PVCs up to 22 seconds. Pacing percentage less than 95% Seems to be euvolemic primary Software Engineer Web Applications evaluated the patient. Recommended resuming carvedilol, Entresto, Bumex. All resumed. Anticoagulated on Coumadin, goal INR 23 Aspirin 81 mg continued Resumed Crestor EKG paced, no acute ischemic findings. Clinically without chest pain. Suspect elevated troponin due to demand ischemia from sepsis. Echocardiogram Reviewed (4) Presence of biventricular automatic cardioverter/defibrillator (AICD): Plan: Paced rhythm noted (5) Tremor: (6) Atrial fibrillation: Plan: Paced rhythm. Patient is with therapeutic INR. Continue warfarin with goal INR 23 (7) Atherogenic dyslipidemia: (8) Benign essential hypertension: Plan: Hypertension resume Bumex, Entresto Carvedilol resumed (9) Cervical radiculopathy: Plan: Hx of Idiopathic peripheral neuropathy, tremor, cervical radiculopathy Follows with neurology. Has a history of cervical radiculopathy with hand atrophy stable. Significant improvement on Mirapex as outpt. Continued. (10) BPH loc w urin obs/LUTS: Plan: - Kingston in place. Strict I&os. Patient requests that the Kingston stay in place until a day prior to discharge normally straight caths himself (11) Acute kidney injury: Plan: Monitor BMP closely Avoid nephrotoxins Resolved MERT most likely prerenal due to sepsis Plan DVT prophylaxis: Anticoagulated with Coumadin Diet: Heart healthy CODE STATUS: Full code Patient will undergo physical therapy while in the hospital. If he does better in the next few days with therapy, he can go home with home health services. If not, will need placement. Admission and Anticipated Discharge Date Admission Date: February 23, 2023 Subjective Patient feels well overall. Denies chest pain or shortness of breath. Still weak though. Still needing 3 L of oxygen. Review of Systems Review of Systems: All systems reviewed & are unremarkable except as noted in Subjective Physical Exam Physical Exam: General: Awake, conversant Heart: S1, S2/regular rate and rhythm, no murmur rubs or gallops Lungs: Clear to auscultation bilaterally. Normal effort Abdomen: Soft/nontender/nondistended. No hepatosplenomegaly Extremities: No clubbing/cyanosis. Bilateral upper extremity edema has improved significantly. He now has bilateral lower extremity trace pitting elise a. Behavior: Appropriate, cooperative Results & Data Results & Data Vital Signs (Past 12 Hours) Vital Signs Temp Pulse Pulse Resp BP Pulse Ox O2 Del Method 02/27/23 11:39 36.2 C L 61 17 98/50 L 91 Nasal Cannula 02/27/23 07:44 66 23 128/69 94 Nasal Cannula 02/27/23 03:17 66 22 95 02/27/23 03:12 36.6 C 79 20 95/73 L 95 BiPAP O2 Flow Rate 02/27/23 11:39 2 02/27/23 07:44 3 02/27/23 03:17 3 02/27/23 03:12 PG Care Time/CCT Total # of Minutes Spent Total Time Spent with Patient: Total time spent is greater than 50% in coordination of care (as documented) at patient's floor/unit and/or counseling patient: Coding Level of Care Code 32583 SUB INP/OBS CARE 2/35MIN Diagnoses Severe sepsis A41.9; R65.20 Acute on chronic hypoxic respiratory failure J96.21 Chronic systolic congestive heart failure I50.22 Presence of biventricular automatic cardioverter/defibrillator (AICD) Z95.810 Tremor R25.1 Atrial fibrillation I48.91 Atherogenic dyslipidemia E78.5 Benign essential hypertension I10 Cervical radiculopathy M54.12 BPH loc w urin obs/LUTS N40.1 Acute kidney injury N17.9
[2023-02-27] MEDS: PANTOprazole 40 MG TAB PO SCH (12:15)
[2023-02-27] MEDS: UMECLIDINIUM/VILANTEROL 62.5/25MCG 7 PUFFS/INHALER INH SCH (14:48)
[2023-02-27] MEDS: WARFARIN SOD 5 MG TAB PO SCH (16:01)
[2023-02-27] MEDS: ROSUVASTATIN CALCIUM 10 MG TAB PO SCH (20:37)
[2023-02-27] MEDS ORDERED: ONDANSETRON 4 MG OD TAB PO PRN (23:18)
[2023-02-28] MEDS: ONDANSETRON INJ 2 MG/ML 2 ML VIAL IV PRN ×2 (00:14→19:21)
[2023-02-28] MEDS ORDERED: ONDANSETRON INJ 2 MG/ML 2 ML VIAL IV STA (02:48)
[2023-02-28] MEDS ORDERED: ALUMINUM/MAGNESIUM SUSP 30 ML UDC PO STA (02:49)
[2023-02-28 07:19] LABS: Calcium 8.6 mg/dl (8.6-10.3); Potassium 4.2 mmol/L (3.5-5.1)
[2023-02-28 07:24] LABS: BUN Creatinine Ratio 27.5 (10-20); Est GFR (African American) 93.2 ml/min; Est GFR (Non-African American) 80.4 ml/min
[2023-02-28] MEDS ORDERED: PROMETHAZINE HCL INJ 25 MG/ML 1 ML VIAL IM STA (07:29)
[2023-02-28] MEDS ORDERED: PROMETHAZINE HCL 25 MG in SODIUM CHLORIDE 0.9% 50 ML IV ONE (07:45)
--- NOTE | 2023-02-28 08:34 | XRay Report ---
XR KUB/Abdomen 1 view CLINICAL HISTORY: vomiting TECHNIQUE: 1 view of the abdomen was obtained. Comparison: Comparison is made to abdomen radiograph 02/27/2019 FINDINGS: Surgical clips are again seen projecting over the gastric body. Previously noted renal stones or not well identified on today's exam. Degenerative changes are seen in the visualized skeleton. The bowel gas pattern is nonobstructive, no significant small bowel gas is seen. A moderate amount of stool is noted within the large bowel. IMPRESSION: No significant small bowel gas is seen, no evidence of small bowel obstruction. ACT 112: Negative or not required by law. Electronically signed by: Dakota Alexis M.D. 02/28/2023 8:32 AM
--- NOTE | 2023-02-28 10:24 | Cardiology Progress Note ---
Date of Service February 28, 2023 Assessment & Plan (1) Benign essential hypertension: Plan: Blood pressure is adequately controlled at this time. Continue current regimen. (2) Ischemic cardiomyopathy: Plan: No evidence of volume overload at this time. He is nearly 20 pounds down from admission but he did not have significant volume overload at that time. I note there is significant discrepancy in the day-to-day weights. We should be measuring him on a scale at bedside. He will continue with his current medical regimen including carvedilol, Entresto, and loop diuretic. (3) Atrial fibrillation: Plan: In sinus rhythm on the monitor. I have reviewed his monitor strips since admission and he has had only sinus rhythm with PVCs or pairs. No significant/concerning arrhythmias. Continue warfarin (INR is slightly low today) for CVA prophylaxis. Continue beta-clotilde. (4) Coronary artery disease: Plan: Stable. Heart rate and blood pressure are at target. Continue guideline directed medical therapy with low-dose aspirin, beta-clotilde, statin, and ARB. (5) Atherogenic dyslipidemia: Plan: High risk. Continue high intensity statin therapy with rosuvastatin. (6) Biliary dyskinesia: Plan: May be the reason for his nausea. Work-up and treatment per primary team. Plan Patient will follow-up in the cardiology clinic as previously scheduled after discharge. Admission and Anticipated Discharge Date Admission Date: February 23, 2023 Subjective Patient tells me that yesterday he had multiple episodes of vomiting. Was not feeling so well but today is a bit better. He did note that he had some lower blood pressures but those were yesterday morning and sounds like his vomiting was in the evening. KUB performed today without any evidence of bowel obstruction. He denies any anginal chest pain, heaviness, or tightness. No shortness of breath. Sounds if he is to undergo some rehab and then hopefully discharge home. Review of Systems Review of Systems: Negative except as per HPI Physical Exam Constitutional: WD/WN, vitals as above Eyes: Extraocular muscles intact. Sclera are anicteric. ENMT: Oral mucosa is pink moist and intact Neck: No JVD Respiratory: Clear to auscultation bilaterally. No wheezing, rhonchi, or rales. Diminished air movement. Cardiovascular: Regular rate and rhythm. Soft systolic murmur. No edema. Neurologic: Cognition is intact. Speech is fluent. No focal deficits. Psychiatric: A+Ox3, euthymic affect Results & Data Vital Signs (Past 12 Hours) Vital Signs Temp Pulse Pulse Resp BP Pulse Ox O2 Del Method 02/28/23 07:20 37.0 C 67 18 134/78 90 Nasal Cannula 02/28/23 03:40 77 02/28/23 02:50 35.9 C L 67 18 132/79 90 Nasal Cannula 02/27/23 23:28 37.4 C 80 17 134/73 90 Nasal Cannula O2 Flow Rate 02/28/23 07:20 1 02/28/23 03:40 02/28/23 02:50 1 02/27/23 23:28 1 PG Care Time/CCT Total # of Minutes Spent Total Time Spent with Patient: Total time spent is greater than 50% in coordination of care (as documented) at patient's floor/unit and/or counseling patient: Coding Level of Care Code 48623 SUB INP/OBS CARE 2/35MIN Diagnoses Benign essential hypertension I10 Ischemic cardiomyopathy I25.5 Atrial fibrillation I48.91 Coronary artery disease I25.10 Atherogenic dyslipidemia E78.5 Biliary dyskinesia K82.8
[2023-02-28] MEDS: oxyCODONE HCL 10 MG TABCR (OxyCONTIN) PO SCH ×2 (10:40→21:11)
[2023-02-28] MEDS: ACETAMINOPHEN 325 MG TAB PO PRN (10:40)
[2023-02-28] MEDS: UMECLIDINIUM/VILANTEROL 62.5/25MCG 7 PUFFS/INHALER INH SCH (10:44)
[2023-02-28] MEDS: carvediloL 25 MG TAB PO SCH ×2 (10:44→21:13)
[2023-02-28] MEDS: FINASTERIDE 5 MG TAB PO SCH (10:45)
[2023-02-28] MEDS: ASPIRIN 81 MG ECTAB PO SCH (10:46)
[2023-02-28] MEDS: CEFDINIR 300 MG CAP PO SCH ×2 (10:46→21:12)
[2023-02-28] MEDS: VALSARTAN/SACUBITRIL 51/49 MG TAB PO SCH ×2 (10:46→21:13)
[2023-02-28] MEDS: buPROPion HCl 100 MG TABLET PO SCH ×2 (10:46→21:12)
[2023-02-28] MEDS: SENNA 8.6 MG TAB PO SCH ×2 (10:46→21:12)
[2023-02-28] MEDS: SODIUM CHLORIDE 0.9% 1,000 ML IV SCH ×2 (10:49→22:31)
[2023-02-28] MEDS: DOCUSATE SODIUM 100 MG CAP PO SCH ×2 (10:52→21:14)
--- NOTE | 2023-02-28 12:07 | Hospitalist Progress Note ---
Date of Service February 28, 2023 Assessment & Plan (1) Severe sepsis: Plan: Severe sepsis with septic shock Secondary to pneumonia Improved clinically Has come off of pressors Received aggressive fluid resuscitation upon admission Continue cefdinir With caution (may be causing the vomiting and nausea) MRSA nares positive Bio fire negative Procalcitonin negative Leukocytosis resolved Lactic acidosis resolved not requiring oxygen today Incentive spirometer (2) Vomiting: Plan: patient had 6 episodes of vomiting overnight Passing gas No abdominal pain X-ray KUB negative Ordered CBC, LFT Only new medicine is the cefdinir. We will hold the cefdinir for now N.p.o. Gentle IV hydration Continue antiemetics (3) Acute on chronic hypoxic respiratory failure: Plan: - 2/2 PNA, tx of sepsis/PNA as noted Improved not requiring oxygen today Uses no oxygen at home Asked the nurse to titrate O2 down. Bilateral pneumonia seen on chest imaging speech evaluation completed. No significant concern for aspiration. Mail Processing Machine Operator parameter (4) Chronic systolic congestive heart failure: Plan: Heart failure reduced ejection fraction, CAD, ICD/pacer, paroxysmal Afib Echo 07/2022 stable, EF 25-30% with grade 1 diastolic dysfunction and diffuse hypokinesis with additional inferior wall akinesis, posterior wall akinesis. Last ICD interrogation 12/2022, no episodes of A-fib/flutter; 6 episodes of nonsustained SVT/PVCs up to 22 seconds. Pacing percentage less than 95% Seems to be euvolemic primary Drafter Electronic evaluated the patient. Recommended resuming carvedilol, Entresto, Bumex. All resumed. Bumex held today as he is nauseous and is getting IV fluids due to being n.p.o. Anticoagulated on Coumadin, goal INR 23 Aspirin 81 mg continued Resumed Crestor EKG paced, no acute ischemic findings. Clinically without chest pain. Suspect elevated troponin due to demand ischemia from sepsis. Echocardiogram Reviewed (5) Presence of biventricular automatic cardioverter/defibrillator (AICD): Plan: Paced rhythm noted (6) Tremor: (7) Atrial fibrillation: Plan: Paced rhythm. Patient is with therapeutic INR. Continue warfarin with goal INR 23 (8) Atherogenic dyslipidemia: (9) Benign essential hypertension: Plan: Hypertension resume Bumex, Entresto Carvedilol resumed (10) Cervical radiculopathy: Plan: Hx of Idiopathic peripheral neuropathy, tremor, cervical radiculopathy Follows with neurology. Has a history of cervical radiculopathy with hand atrophy stable. Significant improvement on Mirapex as outpt. Continued. (11) BPH loc w urin obs/LUTS: Plan: - Kingston in place. Strict I&os. Patient requests that the Kingston stay in place until a day prior to discharge normally straight caths himself (12) Acute kidney injury: Plan: Monitor BMP closely Avoid nephrotoxins Resolved MERT most likely prerenal due to sepsis Plan DVT prophylaxis: Anticoagulated with Coumadin Diet: Heart healthy CODE STATUS: Full code Patient will undergo physical therapy while in the hospital. If he does better in the next few days with therapy, he can go home with home health services. If not, will need placement. Admission and Anticipated Discharge Date Admission Date: February 23, 2023 Subjective Patient had several episodes of vomiting overnight. Got Zofran and 1 dose of Phenergan. Says that he is finally feeling better. KUB showed no obstruction. Started him on IV fluids. Made him n.p.o. He says that he has been passing gas. Review of Systems Review of Systems: All systems reviewed & are unremarkable except as noted in Subjective Physical Exam Physical Exam: General: Awake, conversant Heart: S1, S2/regular rate and rhythm, no murmur rubs or gallops Lungs: Clear to auscultation bilaterally. Normal effort Abdomen: Soft/nontender/nondistended. No hepatosplenomegaly Extremities: No clubbing/cyanosis. Bilateral upper extremity edema has improved significantly. He now has bilateral lower extremity trace pitting edema. Behavior: Appropriate, cooperative Results & Data Results & Data Vital Signs (Past 12 Hours) Vital Signs Temp Pulse Pulse Resp BP Pulse Ox O2 Del Method 02/28/23 11:36 37.3 C 75 20 140/84 95 Room Air 02/28/23 07:20 37.0 C 67 18 134/78 90 Nasal Cannula 02/28/23 03:40 77 02/28/23 02:50 35.9 C L 67 18 132/79 90 Nasal Cannula O2 Flow Rate 02/28/23 11:36 02/28/23 07:20 1 02/28/23 03:40 02/28/23 02:50 1 Laboratory Results Abnormal lab results 02/28/23 Range/Units 06:16 Sodium 133 L (136-145) mmol/L BUN 25 H (6-23) mg/dl BUN/Creatinine Ratio 27.5 H (10-20) Glucose 116 H (70-99(Fasting)) mg/dl Diagnostic Findings KUB X-Ray 02/28/23 07:22 XR KUB/Abdomen 1 view CLINICAL HISTORY: vomiting TECHNIQUE: 1 view of the abdomen was obtained. Comparison: Comparison is made to abdomen radiograph 02/27/2019 FINDINGS: Surgical clips are again seen projecting over the gastric body. Previously noted renal stones or not well identified on today's exam. Degenerative changes are seen in the visualized skeleton. The bowel gas pattern is nonobstructive, no significant small bowel gas is seen. A moderate amount of stool is noted within the large bowel. IMPRESSION: No significant small bowel gas is seen, no evidence of small bowel obstruction. ACT 112: Negative or not required by law. Electronically signed by: Dakota Alexis M.D. 02/28/2023 8:32 AM PG Care Time/CCT Total # of Minutes Spent Total Time Spent with Patient: Total time spent is greater than 50% in coordination of care (as documented) at patient's floor/unit and/or counseling patient: Coding Level of Care Code 06334 SUB INP/OBS CARE 2/35MIN Diagnoses Severe sepsis A41.9; R65.20 Bilious vomiting with nausea R11.14 Vomiting type: bilious vomiting Nausea presence: with nausea Acute on chronic hypoxic respiratory failure J96.21 Chronic systolic congestive heart failure I50.22 Presence of biventricular automatic cardioverter/defibrillator (AICD) Z95.810 Tremor R25.1 Atrial fibrillation I48.91 Atherogenic dyslipidemia E78.5 Benign essential hypertension I10 Cervical radiculopathy M54.12 BPH loc w urin obs/LUTS N40.1 Acute kidney injury N17.9 (2) Vomiting Vomiting type: bilious vomiting Nausea presence: with nausea Qualified Code(s): R11.14 - Bilious vomiting
[2023-02-28] MEDS: PANTOprazole 40 MG TAB PO SCH (16:34)
[2023-02-28] MEDS: WARFARIN SOD 5 MG TAB PO SCH (16:59)
[2023-02-28] MEDS: PROMETHAZINE HCL 12.5 MG in SODIUM CHLORIDE 0.9% 50 ML IV PRN (17:00)
[2023-02-28] MEDS: ROSUVASTATIN CALCIUM 10 MG TAB PO SCH (21:13)
[2023-03-01] MEDS: PROMETHAZINE HCL 12.5 MG in SODIUM CHLORIDE 0.9% 50 ML IV PRN ×2 (00:11→20:51)
[2023-03-01 04:38] LABS: Basophils # (auto) 0.02 K/uL (0.00-0.20); Basophils % (auto) 0.2 %; Eosinophils # (auto) 0.01 K/uL (0.00-0.50); Eosinophils % (auto) 0.1 %; Hematocrit (blood only) 39.1 % (42.0-52.0); Hemoglobin 13.3 g/dl (14.0-18.0); Immature Granulocytes # (auto) 0.16 K/uL (0.01-0.20); Immature Granulocytes % (auto) 1.3 %; Lymphocytes % (auto) 15.1 %; Mean Corpuscular Hemoglobin 29.5 pg (25.0-34.0); Mean Corpuscular Volume 86.7 fL (80.0-100.0); Mean Platelet Volume 10.3 fL (9.4-12.4); Monocytes # (auto) 0.96 K/uL (0.11-0.59); Monocytes % (auto) 7.6 %; Neutrophils # (auto) 9.56 K/uL (1.40-6.50); Neutrophils % (auto) 75.7 %; Platelet Count 365 K/uL (130-400); RDW Coefficient of Variation 14.4 % (11.5-14.5); RDW Standard Deviation 45.1 fL (36.4-46.3); Red Blood Count 4.51 M/uL (4.70-6.10); White Blood Count 12.61 K/ul (4.8-10.8)
[2023-03-01 05:04] LABS: INR 1.8 (0.9-1.1); Prothrombin Time 19.3 Seconds (9.0-12.0)
[2023-03-01 05:05] LABS: Albumin Level 3.6 gm/dl (3.4-5.0); BUN Creatinine Ratio 26.2 (10-20); Bilirubin Direct 0.1 mg/dl (0-0.2); Bilirubin,Total 0.6 mg/dl (0.2-1.0); Calcium 8.7 mg/dl (8.6-10.3); Creatinine Clr Calc Pharmacy 69.8 ml/min; Est GFR (African American) 80.3 ml/min; Est GFR (Non-African American) 69.3 ml/min; Potassium 3.3 mmol/L (3.5-5.1); Total Protein 6.8 gm/dl (6.0-8.3)
[2023-03-01] MEDS: POTASSIUM CHLORIDE 40 MEQ in SODIUM CHLORIDE 0.9% 1,000 ML IV SCH ×2 (07:59→20:17)
[2023-03-01] MEDS: DOCUSATE SODIUM 100 MG CAP PO SCH ×2 (08:10→20:15)
[2023-03-01] MEDS: VALSARTAN/SACUBITRIL 51/49 MG TAB PO SCH ×2 (08:10→20:16)
[2023-03-01] MEDS: ACETAMINOPHEN 325 MG TAB PO PRN (08:10)
[2023-03-01] MEDS: oxyCODONE HCL 10 MG TABCR (OxyCONTIN) PO SCH ×2 (08:10→20:15)
[2023-03-01] MEDS: buPROPion HCl 100 MG TABLET PO SCH ×2 (08:11→20:15)
[2023-03-01] MEDS: FINASTERIDE 5 MG TAB PO SCH (08:11)
[2023-03-01] MEDS: ASPIRIN 81 MG ECTAB PO SCH (08:11)
[2023-03-01] MEDS: UMECLIDINIUM/VILANTEROL 62.5/25MCG 7 PUFFS/INHALER INH SCH (08:11)
[2023-03-01] MEDS: SENNA 8.6 MG TAB PO SCH ×2 (08:12→20:16)
[2023-03-01] MEDS: carvediloL 25 MG TAB PO SCH ×2 (08:12→20:16)
--- NOTE | 2023-03-01 11:27 | CT Scan Report ---
CT SCAN OF THE ABDOMEN AND PELVIS WITHOUT IV CONTRAST CLINICAL HISTORY: Vomiting. COMPARISON STUDY: Abdominal CT dated 02/23/2023. TECHNIQUE: CT scan of the abdomen and pelvis is performed from the lung bases to the proximal femora. Images are reviewed in the axial, sagittal, and coronal planes. IV contrast was not administered for this examination. A dose lowering technique was utilized adhering to the principles of ALARA. CT DOSE: 1510.65 mGy.cm FINDINGS: Lung bases: The heart is enlarged and without pericardial effusion. Pacemaker leads are in place. The coronary arteries are densely calcified. Emphysematous change is noted. There are small pleural effu sions with dependent consolidation. Liver: The unenhanced liver is normal in size, contour, and attenuation. There is no intrahepatic sergio iary ductal dilatation. Gallbladder: Surgically absent and clips in the gallbladder fossa. Spleen: Normal in size and attenuation. A 15 mm cystic focus in the spleen is unchanged. Pancreas: The unenhanced pancreas is mildly atrophic and grossly unremarkable. There is mild infiltra tion and fluid between the pancreatic tail and the spleen seen on axial image #133. Adrenal glands: Unremarkable. Kidneys: The unenhanced kidneys demonstrate cortical atrophy and are without hydronephrosis. There is a 5 mm nonobstructing right renal calculus. No left renal calculi are identified and no ureteral sto ne is seen. Bilateral renal cysts measure 2.5 cm. Abdominal vasculature: The abdominal aorta is normal in course and caliber noting moderate to advance d atherosclerotic calcification. Stomach and bowel: There is a moderate to large hiatal hernia. Postsurgical change is suggested at th e gastroesophageal junction. The distal esophagus appears circumferentially thick walled. The stomach is distended. There is no CT evidence of mechanical gastric outlet obstruction. There is mild-to-mod erate colonic diverticulosis without CT evidence of acute diverticulitis. No bowel obstruction is see n. The appendix is well-visualized and normal. Peritoneum: There is no intraperitoneal free air or abdominal ascites. Lymphadenopathy: None. Pelvic viscera: The bladder is decompressed around a Kingston catheter and not well evaluated. The prost ate gland is diminutive and heterogeneous. There is a large fat-containing right inguinal hernia with evidence of previous right inguinal herniorrhaphy. There is nonspecific presacral soft tissue edema. Skeletal structures: The skeletal structures are osteopenic. There is moderate lumbosacral spondylosi s. No lytic or blastic lesions are seen. IMPRESSION: 1. Small pleural effusions with bibasilar consolidation. This could represent atelectasis versus pneu monia/aspiration pneumonitis. Clinical correlation will be required. 2. The distal esophagus appears circumferentially thick wall. Correlate clinically for evidence of es ophagitis. If warranted this could be further assessed with endoscopy. 3. Moderate to large hiatal hernia. 4. The stomach is distended, with no CT evidence of mechanical gastrointestinal all obstruction. 5. There is a small amount of nonspecific fluid and mild infiltration between the pancreatic tail and pancreas. Correlate with clinical and laboratory findings for evidence of pancreatitis. 6. Right-sided nephrolithiasis. 7. Colonic diverticulosis without CT evidence of acute diverticulitis. 8. Additional findings as above. ACT 112: Negative or not required by law. Electronically signed by: Ankush Byrnes M.D. 03/01/2023 11:26 AM
[2023-03-01] MEDS: PANTOprazole 40 MG TAB PO SCH (11:30)
--- NOTE | 2023-03-01 12:49 | Hospitalist Progress Note ---
Date of Service March 01, 2023 Assessment & Plan (1) Severe sepsis: Plan: Severe sepsis with septic shock Secondary to pneumonia Improved clinically Has come off of pressors Received aggressive fluid resuscitation upon admission discontinued cefdinir due to nausea and vomiting. Patient already finished 6 days of treatment. MRSA nares positive Bio fire negative Procalcitonin negative Leukocytosis resolved Lactic acidosis resolved Requiring 2 L of oxygen Incentive spirometer (2) Vomiting: Plan: patient has had issues with nausea and vomiting last night and the night b efore. No abdominal pain. X-ray KUB negative LFTs negative White count is mildly elevated at 12, most likely stress-induced Abdominal CT did not show any obstruction. Stomach appears distended. Question of pancreatitis but no abdominal pain We will manage the patient conservatively Discontinue cefdinir as this seems to be the most likely culprit N.p.o. for bowel rest Gentle IV hydration Continue antiemetics Possibly paralytic ileus If continues to vomit, will place an NG tube (3) Acute on chronic hypoxic respiratory failure: Plan: - 2/2 PNA, tx of sepsis/PNA as noted Improved using 2 L of oxygen Uses no oxygen at home Asked the nurse to titrate O2 down. Bilateral pneumonia seen on chest imaging speech evaluation completed. No significant concern for aspiration. (4) Chronic systolic congestive heart failure: Plan: Heart failure reduced ejection fraction, CAD, ICD/pacer, paroxysmal Afib Echo 07/2022 stable, EF 25-30% with grade 1 diastolic dysfunction and diffuse hypokinesis with additional inferior wall akinesis, posterior wall akinesis. Last ICD interrogation 12/2022, no episodes of A-fib/flutter; 6 episodes of nonsustained SVT/PVCs up to 22 seconds. Pacing percentage less than 95% Seems to be euvolemic primary Livestock Commission Agent evaluated the patient. Recommended resuming carvedilol, Entresto, Bumex. All resumed. Bumex held today as he is nauseous and is getting IV fluids due to being n.p.o. Anticoagulated on Coumadin, goal INR 23 Aspirin 81 mg continued Resumed Crestor EKG paced, no acute ischemic findings. Clinically without chest pain. Suspect elevated troponin due to demand ischemia from sepsis. Echocardiogram Reviewed (5) Presence of biventricular automatic cardioverter/defibrillator (AICD): Plan: Paced rhythm noted (6) Tremor: (7) Atrial fibrillation: Plan: Paced rhythm. Patient is with therapeutic INR. Continue warfarin with goal INR 23 (8) Atherogenic dyslipidemia: (9) Benign essential hypertension: Plan: Hypertension resume Bumex, Entresto Carvedilol resumed (10) Cervical radiculopathy: Plan: Hx of Idiopathic peripheral neuropathy, tremor, cervical radiculopathy Follows with neurology. Has a history of cervical radiculopathy with hand atrophy stable. Significant improvement on Mirapex as outpt. Continued. (11) BPH loc w urin obs/LUTS: Plan: - Kingston in place. Strict I&os. Patient requests that the Kingston stay in place until a day prior to discharge normally straight caths himself (12) Acute kidney injury: Plan: Monitor BMP closely Avoid nephrotoxins Resolved MERT most likely prerenal due to sepsis Plan DVT prophylaxis: Anticoagulated with Coumadin Diet: Heart healthy CODE STATUS: Full code Patient will undergo physical therapy while in the hospital. If he does better in the next few days with therapy, he can go home with home health services. If not, will need placement. Admission and Anticipated Discharge Date Admission Date: February 23, 2023 Subjective patient got cefdinir last night. Continues to have issues with Nausea and vomiting overnight. he continues to have no belly pain. Discontinued the cefdinir this morning. Abdominal CT was ordered. Review of Systems Review of Systems: All systems reviewed & are unremarkable except as noted in Subjective Physical Exam Physical Exam: General: Awake, conversant Heart: S1, S2/regular rate and rhythm, no murmur rubs or gallops Lungs: Clear to auscultation bilaterally. Normal effort Abdomen: Soft/nontender/nondistended. No hepatosplenomegaly Extremities: No clubbing/cyanosis. Trace bilateral edema Behavior: Appropriate, cooperative Results & Data Results & Data Vital Signs (Past 12 Hours) Vital Signs Temp Pulse Resp BP Pulse Ox O2 Del Method O2 Flow Rate 03/01/23 12:02 36.5 C 70 18 99/59 L 92 Nasal Cannula 2 03/01/23 07:25 36.8 C 78 20 128/69 91 Nasal Cannula 2 03/01/23 02:53 36.7 C 67 21 133/73 90 Nasal Cannula 4 PG Care Time/CCT Total # of Minutes Spent Total Time Spent with Patient: Total time spent is greater than 50% in coordination of care (as documented) at patient's floor/unit and/or counseling patient: Coding Level of Care Code 13917 SUB INP/OBS CARE 2/35MIN Diagnoses Severe sepsis A41.9; R65.20 Bilious vomiting with nausea R11.14 Vomiting type: bilious vomiting Nausea presence: with nausea Acute on chronic hypoxic respiratory failure J96.21 Chronic systolic congestive heart failure I50.22 Presence of biventricular automatic cardioverter/defibrillator (AICD) Z95.810 Tremor R25.1 Atrial fibrillation I48.91 Atherogenic dyslipidemia E78.5 Benign essential hypertension I10 Cervical radiculopathy M54.12 BPH loc w urin obs/LUTS N40.1 Acute kidney injury N17.9 (2) Vomiting Vomiting type: bilious vomiting Nausea presence: with nausea Qualified Code(s): R11.14 - Bilious vomiting
[2023-03-01] MEDS: WARFARIN SOD 5 MG TAB PO SCH (18:51)
[2023-03-01] MEDS: ROSUVASTATIN CALCIUM 10 MG TAB PO SCH (20:16)
[2023-03-01] MEDS: SODIUM CHLORIDE 0.9% 1,000 ML IV SCH (20:39)
[2023-03-02] MEDS: POTASSIUM CHLORIDE 40 MEQ in SODIUM CHLORIDE 0.9% 1,000 ML IV SCH (05:08)
[2023-03-02 07:18] LABS: BUN Creatinine Ratio 34.8 (10-20); Calcium 7.7 mg/dl (8.6-10.3); Creatinine Clr Calc Pharmacy 83.5 ml/min; Est GFR (African American) 94.9 ml/min; Est GFR (Non-African American) 81.9 ml/min; Potassium 3.8 mmol/L (3.5-5.1)
[2023-03-02] MEDS: UMECLIDINIUM/VILANTEROL 62.5/25MCG 7 PUFFS/INHALER INH SCH (09:48)
[2023-03-02] MEDS: VALSARTAN/SACUBITRIL 51/49 MG TAB PO SCH ×2 (09:49→21:06)
[2023-03-02] MEDS: buPROPion HCl 100 MG TABLET PO SCH ×2 (09:50→21:04)
[2023-03-02] MEDS: ASPIRIN 81 MG ECTAB PO SCH (09:50)
[2023-03-02] MEDS: SENNA 8.6 MG TAB PO SCH ×2 (09:50→21:05)
[2023-03-02] MEDS: FINASTERIDE 5 MG TAB PO SCH (09:50)
[2023-03-02] MEDS: carvediloL 25 MG TAB PO SCH ×2 (09:50→21:04)
[2023-03-02] MEDS: oxyCODONE HCL 10 MG TABCR (OxyCONTIN) PO SCH ×2 (09:54→21:03)
[2023-03-02] MEDS: DOCUSATE SODIUM 100 MG CAP PO SCH ×2 (09:54→21:03)
[2023-03-02] MEDS: PROMETHAZINE HCL 12.5 MG in SODIUM CHLORIDE 0.9% 50 ML IV PRN (11:07)
[2023-03-02] MEDS: PANTOprazole 40 MG TAB PO SCH ×2 (11:10→21:06)
[2023-03-02] MEDS ORDERED: COUGH DROP (SUGAR FREE) LOZ 24 LOZ/1 BOX BUCCAL ONE (12:57)
--- NOTE | 2023-03-02 17:08 | Hospitalist Progress Note ---
Date of Service March 02, 2023 Assessment & Plan (1) Severe sepsis: Plan: Severe sepsis with septic shock -He still remained hypoxic, I will start the patient on IV Lasix to see if that helps -Oral antibiotic was discontinued yesterday due to nausea and vomiting MRSA nares positive Bio fire negative Procalcitonin negative Leukocytosis resolved Lactic acidosis resolved Requiring 2 L of oxygen Incentive spirometer (2) Vomiting: Plan: Nausea is improving etiology unclear, patient has a large hiatal hernia and CAT scan of chest as well as evidence of esophagitis, continue PPI, patient feels better, started on liquid diet,Stop cefdinir (3) Acute on chronic hypoxic respiratory failure: Plan: - 2/2 PNA, tx of sepsis/PNA as noted Today patient is on 5 L oxygen, still on Lasix IV twice daily (4) Chronic systolic congestive heart failure: Plan: Heart failure reduced ejection fraction, CAD, ICD/pacer, paroxysmal Afib Echo 07/2022 stable, EF 25-30% with grade 1 diastolic dysfunction and diffuse hypokinesis with additional inferior wall akinesis, posterior wall akinesis. Last ICD interrogation 12/2022, no episodes of A-fib/flutter; 6 episodes of nonsustained SVT/PVCs up to 22 seconds. Pacing percentage less than 95% Seems to be euvolemic primary Creel Selector evaluated the patient. Recommended resuming carvedilol, Entresto, Bumex. All resumed. Bumex held yesterday as he is nauseous and is getting IV fluids due to being n.p.o. Anticoagulated on Coumadin, goal INR 23 Aspirin 81 mg continued Resumed Crestor EKG paced, no acute ischemic findings. Clinically without chest pain. Suspect elevated troponin due to demand ischemia from sepsis. Echocardiogram Reviewed (5) Presence of biventricular automatic cardioverter/defibrillator (AICD): Plan: Paced rhythm noted (6) Tremor: (7) Atrial fibrillation: Plan: Paced rhythm. Patient is with therapeutic INR. Continue warfarin with goal INR 23 (8) Atherogenic dyslipidemia: (9) Benign essential hypertension: Plan: Hypertension resume Bumex, Entresto Carvedilol resumed (10) Cervical radiculopathy: Plan: Hx of Idiopathic peripheral neuropathy, tremor, cervical radiculopathy Follows with neurology. Has a history of cervical radiculopathy with hand atrophy stable. Significant improvement on Mirapex as outpt. Continued. (11) BPH loc w urin obs/LUTS: Plan: - [place] in place. Strict I&os. Patient requests that the [place] stay in place until a day prior to discharge normally straight caths himself (12) Acute kidney injury: Plan: Monitor BMP closely Avoid nephrotoxins Resolved MERT most likely prerenal due to sepsis Plan DVT prophylaxis: Anticoagulated with Coumadin Diet: Heart healthy CODE STATUS: Full code Admission and Anticipated Discharge Date Admission Date: February 23, 2023 Subjective Still remain hypoxic, currently on 5 L oxygen, nausea is improving, continue PPI, patient CT of chest showed large hiatal hernia evidence of esophagitis, started on clear liquid diet Review of Systems 2 Review of Systems: Negative except as per HPI Physical Exam Physical Exam: General: Awake, conversant Heart: S1, S2/regular rate and rhythm, no murmur rubs or gallops Lungs: Clear to auscultation bilaterally. Normal effort Abdomen: Soft/nontender/nondistended. No hepatosplenomegaly Extremities: No clubbing/cyanosis. Trace bilateral edema Behavior: Appropriate, cooperative Constitutional: WD/WN, vitals as above Psychiatric: A+Ox3, euthymic affect Results & Data Results & Data Vital Signs (Past 12 Hours) Vital Signs Temp Pulse Pulse Resp BP Pulse Ox O2 Del Method 03/02/23 15:07 36.9 C 65 18 127/65 93 Nasal Cannula 03/02/23 14:41 96 03/02/23 10:58 36.9 C 64 22 108/59 L 90 Nasal Cannula 03/02/23 08:30 Nasal Cannula 03/02/23 08:30 60 03/02/23 07:59 36.4 C L 64 18 144/78 H 94 Nasal Cannula O2 Flow Rate 03/02/23 15:07 5 03/02/23 14:41 03/02/23 10:58 5 03/02/23 08:30 5 03/02/23 08:30 03/02/23 07:59 5 PG Care Time/CCT Total # of Minutes Spent Total Time Spent with Patient: Total time spent is greater than 50% in coordination of care (as documented) at patient's floor/unit and/or counseling patient: Coding Level of Care Code 77354 SUB INP/OBS CARE 3/50MIN Diagnoses Severe sepsis A41.9; R65.20 Bilious vomiting with nausea R11.14 Nausea presence: with nausea Vomiting type: bilious vomiting Acute on chronic hypoxic respiratory failure J96.21 Chronic systolic congestive heart failure I50.22 Presence of biventricular automatic cardioverter/defibrillator (AICD) Z95.810 Tremor R25.1 Atrial fibrillation I48.91 Atherogenic dyslipidemia E78.5 Benign essential hypertension I10 Cervical radiculopathy M54.12 BPH loc w urin obs/LUTS N40.1 Acute kidney injury N17.9 (2) Vomiting Nausea presence: with nausea Vomiting type: bilious vomiting Qualified Code(s): R11.14 - Bilious vomiting
[2023-03-02] MEDS: WARFARIN SOD 2.5 MG TAB PO SCH (17:19)
[2023-03-02] MEDS: ROSUVASTATIN CALCIUM 10 MG TAB PO SCH (21:05)
[2023-03-03 07:52] LABS: Anion Gap 7 (3-11); BUN Creatinine Ratio 31.8 (10-20); Blood Urea Nitrogen 27 mg/dl (6-23); Calcium 7.7 mg/dl (8.6-10.3); Carbon Dioxide 23 mmol/L (21-32); Chloride 109 mmol/L (98-107); Creatinine Clr Calc Pharmacy 87.6 ml/min; Est GFR (African American) 96.7 ml/min; Est GFR (Non-African American) 83.5 ml/min; Glucose 101 mg/dl (70-99(Fasting)); Sodium 139 mmol/L (136-145)
[2023-03-03] MEDS: PROMETHAZINE HCL 12.5 MG in SODIUM CHLORIDE 0.9% 50 ML IV PRN (08:05)
[2023-03-03] MEDS: VALSARTAN/SACUBITRIL 51/49 MG TAB PO SCH ×2 (08:07→19:59)
[2023-03-03] MEDS: ASPIRIN 81 MG ECTAB PO SCH (08:08)
[2023-03-03] MEDS: UMECLIDINIUM/VILANTEROL 62.5/25MCG 7 PUFFS/INHALER INH SCH (08:08)
[2023-03-03] MEDS: PANTOprazole 40 MG TAB PO SCH (08:08)
[2023-03-03] MEDS: SENNA 8.6 MG TAB PO SCH ×2 (08:08→19:59)
[2023-03-03] MEDS: FINASTERIDE 5 MG TAB PO SCH (08:09)
[2023-03-03] MEDS: carvediloL 25 MG TAB PO SCH ×2 (08:10→20:00)
[2023-03-03] MEDS: buPROPion HCl 100 MG TABLET PO SCH ×2 (08:10→19:59)
[2023-03-03] MEDS: oxyCODONE HCL 10 MG TABCR (OxyCONTIN) PO SCH ×2 (08:13→20:55)
[2023-03-03] MEDS: BUMETANIDE 2 MG in SYRINGE 0 ML IV SCH ×2 (08:13→16:40)
[2023-03-03] MEDS: DOCUSATE SODIUM 100 MG CAP PO SCH ×2 (08:13→19:59)
[2023-03-03] MEDS: WARFARIN SOD 5 MG TAB PO SCH (15:38)
[2023-03-03] MEDS: ACETAMINOPHEN 325 MG TAB PO PRN (16:43)
--- NOTE | 2023-03-03 18:07 | Hospitalist Progress Note ---
Date of Service March 03, 2023 Assessment & Plan (1) Dysphagia: Plan: Patient complains of having dysphagia and nausea intermittent with vomiting for the last few days -The patient has large hiatal hernia, CT of chest showed evidence of esophagitis -Patient has been already been on PPI, will switch to IV PPI -GI consult -Continue keep the patient on clear liquid diet -He was on oral antibiotic that was discontinued to see if that helps with nausea (2) Hypoxia: Plan: We will initiate patient admitted to the hospital with severe sepsis/pneumonia and hypoxia which improved, -Patient received IV fluid and Bumex was held when patient had nausea and vomiting -No gain, hypoxia has been getting worse, currently on 5 L oxygen -Started on IV diuretic and 03/02 -Monitor kidney function - continue IV diuretic (3) Severe sepsis: Plan: Severe sepsis with septic shock -Oral antibiotic was discontinued yesterday due to nausea and vomiting MRSA nares positive Bio fire negative Procalcitonin negative Leukocytosis resolved Lactic acidosis resolved Requiring 2 L of oxygen Incentive spirometer (4) Chronic systolic congestive heart failure: Plan: Heart failure reduced ejection fraction, CAD, ICD/pacer, paroxysmal Afib Echo 07/2022 stable, EF 25-30% with grade 1 diastolic dysfunction and diffuse hypokinesis with additional inferior wall akinesis, posterior wall akinesis. Last ICD interrogation 12/2022, no episodes of A-fib/flutter; 6 episodes of nonsustained SVT/PVCs up to 22 seconds. Pacing percentage less than 95% Seems to be euvolemic primary Needle Loom Setter evaluated the patient. Recommended resuming carvedilol, Entresto, Bumex Anticoagulated on Coumadin, goal INR 23 Aspirin 81 mg continued Resumed Crestor EKG paced, no acute ischemic findings. Clinically without chest pain. Suspect elevated troponin due to demand ischemia from sepsis. Echocardiogram Reviewed -INR tomorrow (5) Presence of biventricular automatic cardioverter/defibrillator (AICD): Plan: Paced rhythm noted (6) Tremor: (7) Atrial fibrillation: Plan: Paced rhythm. Patient is with therapeutic INR. Continue warfarin with goal INR 23 (8) Atherogenic dyslipidemia: (9) Benign essential hypertension: Plan: Hypertension Fairly controlled with current regiment (10) Cervical radiculopathy: Plan: Hx of Idiopathic peripheral neuropathy, tremor, cervical radiculopathy Follows with neurology. Has a history of cervical radiculopathy with hand atrophy stable. Significant improvement on Mirapex as outpt. Continued. (11) BPH loc w urin obs/LUTS: Plan: - [place] in place. Strict I&os. Patient requests that the [place] stay in place until a day prior to discharge normally straight caths himself (12) Acute kidney injury: Plan: Monitor BMP closely Avoid nephrotoxins Resolved MERT most likely prerenal due to sepsis Plan DVT prophylaxis: Anticoagulated with Coumadin Diet: Heart healthy CODE STATUS: Full code Admission and Anticipated Discharge Date Admission Date: February 23, 2023 Subjective Complaint of having persistent nausea and dysphagia, able to tolerate liquid diet Review of Systems Review of Systems: Negative except as per HPI Physical Exam Physical Exam: General: Awake, conversant Heart: S1, S2/regular rate and rhythm, no murmur rubs or gallops Lungs: Clear to auscultation bilaterally. Normal effort Abdomen: Soft/nontender/nondistended. No hepatosplenomegaly Extremities: No clubbing/cyanosis. Trace bilateral edema Behavior: Appropriate, cooperative Constitutional: WD/WN, vitals as above Psychiatric: A+Ox3, euthymic affect Results & Data Results & Data Vital Signs (Past 12 Hours) Vital Signs Temp Pulse Resp BP Pulse Ox O2 Del Method O2 Flow Rate 03/03/23 15:14 35.5 C L 86 20 111/73 94 Nasal Cannula 6 03/03/23 11:12 36.3 C L 60 22 104/56 L 96 Nasal Cannula 6 03/03/23 08:13 37.0 C 72 24 107/58 L 96 Nasal Cannula 6 03/03/23 08:00 Nasal Cannula 6 PG Care Time/CCT Total # of Minutes Spent Total Time Spent with Patient: Total time spent is greater than 50% in coordination of care (as documented) at patient's floor/unit and/or counseling patient: Coding Level of Care Code 65415 SUB INP/OBS CARE 3/50MIN Diagnoses Dysphagia R13.10 Hypoxia R09.02 Severe sepsis A41.9; R65.20 Chronic systolic congestive heart failure I50.22 Presence of biventricular automatic cardioverter/defibrillator (AICD) Z95.810 Tremor R25.1 Paroxysmal atrial fibrillation I48.0 Atrial fibrillation type: paroxysmal Atherogenic dyslipidemia E78.5 Benign essential hypertension I10 Cervical radiculopathy M54.12 BPH loc w urin obs/LUTS N40.1 Acute kidney injury N17.9 (7) Atrial fibrillation Atrial fibrillation type: paroxysmal Qualified Code(s): I48.0 - Paroxysmal atrial fibrillation
[2023-03-03] MEDS: PANTOprazole 40 MG in SYRINGE 0 ML IV SCH (20:00)
[2023-03-03] MEDS: ROSUVASTATIN CALCIUM 10 MG TAB PO SCH (20:01)
[2023-03-04 06:31] LABS: Hemoglobin 13.4 g/dl (14.0-18.0); Mean Corpuscular Hemoglobin 29.3 pg (25.0-34.0); Mean Corpuscular Hgb Conc 33.5 g/dL (32.0-36.0); Mean Corpuscular Volume 87.5 fL (80.0-100.0); Mean Platelet Volume 10.6 fL (9.4-12.4); Platelet Count 324 K/uL (130-400); RDW Coefficient of Variation 14.2 % (11.5-14.5); RDW Standard Deviation 45.6 fL (36.4-46.3); Red Blood Count 4.57 M/uL (4.70-6.10); White Blood Count 12.13 K/ul (4.8-10.8)
[2023-03-04 06:49] LABS: BUN Creatinine Ratio 27.6 (10-20); Creatinine Clr Calc Pharmacy 85.5 ml/min; Est GFR (African American) 95.8 ml/min; Est GFR (Non-African American) 82.7 ml/min; Potassium 3.4 mmol/L (3.5-5.1)
[2023-03-04 07:11] LABS: Prothrombin Time 54.9 Seconds (9.0-12.0)
--- NOTE | 2023-03-04 07:23 | XRay Report ---
SINGLE VIEW CHEST CLINICAL HISTORY: Hypoxia FINDINGS: An AP, portable, upright chest radiograph is compared to chest x-ray and chest CT dated . A hiatal hernia is noted. A 3-lead cardiac AICD is unchanged in position and partially obscu res the left mid chest. The heart is enlarged and noting atherosclerotic calcification of the thoraci c aorta. There is pulmonary vascular congestion. Emphysema and chronic interstitial thickening simila r to previous. There are layering pleural effusions with dependent consolidation. No pneumothorax is seen. The skeletal structures are osteopenic. The bony thorax is grossly intact. IMPRESSION: 1. Cardiomegaly and AICD with evidence of congestive failure. 2. Emphysema. 3. Layering pleural effusions with dependent consolidation. Radiographic follow-up to resolution is r ecommended. ACT 112: Negative or not required by law. Electronically signed by: Ankush Byrnes M.D. 03/04/2023 7:22 AM
[2023-03-04 07:33] LABS: INR 5.6 (0.9-1.1)
--- NOTE | 2023-03-04 08:22 | Gastrointestinal Consultation ---
Date of Consultation March 04, 2023 History of Present Illness Reason for Consultation: DYS PHAGIA , ESOPHagitis , n/v Requesting Physician: Dr. Muller Attending Physician: Perry Muller MD Allergies Allergy/AdvReac Type Severity Reaction Status Date / Time bee venom protein (honey bee) Allergy Severe SWELLING, Verified 01/05/23 12:58 SOB Penicillins Allergy Severe SWELLING, Verified 01/05/23 12:58 DIFFICULTY BREATHING lidocaine Allergy Mild RASH Verified 01/05/23 12:58 cefdinir AdvReac Severe Vomiting Verified 03/01/23 20:43 hydrocodone AdvReac Mild nausea Verified 01/05/23 12:58 oxycodone AdvReac Mild nausea-SLOW Verified 01/05/23 12:58 RELEASE IS OK Home Medications Medication Instructions Recorded Confirmed Type albuterol sulfate 90 mcg/actuation 2 puffs inhalation Q6H PRN 12/01/18 02/23/23 History aerosol inhaler Shortness Of Breath Or Wheezing bupropion HCl 100 mg tablet 100 mg PO BID 12/01/18 02/23/23 History docusate sodium 100 mg capsule 100 mg PO BID 12/01/18 02/23/23 History epinephrine 0.3 mg/0.3 mL 0.3 ml IM DIRECTED PRN 12/01/18 02/23/23 History injection, auto-injector Anaphylaxis finasteride 5 mg tablet 5 mg PO QAM 12/01/18 02/23/23 History aspirin 81 mg tablet,delayed 81 mg PO QAM 12/21/18 02/23/23 History release mometasone 50 mcg/actuation nasal 2 spray intranasal BID 12/21/18 02/23/23 History spray (Nasonex) oxycodone 10 mg tablet 10 mg PO Q12H 12/21/18 02/23/23 History sennosides 8.6 mg tablet 8.6 mg PO BID 12/21/18 02/23/23 History warfarin 5 mg tablet 2.5 mg PO . @TU, TH12/21/18 02/23/23 History white petrolatum-mineral oil 56.8 1 applic ophthalmic (eye) HS 12/21/18 02/23/23 History %-42.5 % eye ointment (Refresh Lacri-Lube) metoclopramide HCl 10 mg tablet 10 mg PO Q8H 0511/20 10/31/23 History cetirizine 10 mg capsule 10 mg PO HS 11/06/19 02/23/23 History potassium chloride 20 mEq 20 meq PO BID #200 tabs 01/05/20 02/23/23 Rx tablet,extended release bumetanide 1 mg tablet 1 mg PO QAM 02/29/20 02/23/23 History sacubitril 49 mg-valsartan 51 mg 1 tab PO BID 11/25/20 02/23/23 History tablet pantoprazole 40 mg tablet,delayed 80 mg PO .@NOON 03/10/21 02/23/23 History release carvedilol 25 mg tablet 25 mg PO BID #180 tabs 05/12/21 02/23/23 Rx rosuvastatin 10 mg tablet (Crestor) 10 mg PO QPM 12/03/21 02/23/23 History pramipexole 0.375 mg 0.375 mg PO QAM 12/02/22 02/23/23 History tablet,extended release 24 hr (Mirapex ER) tiotropium 2.5 mcg-olodaterol 2.5 2 puff inhalation QAM 12/02/22 02/23/23 History mcg/actuation mist for inhalation (Stiolto Respimat) lanolin-mineral oil-NaCl-w.pet 1 ea topical Q8H 02/23/23 02/23/23 History lotion nystatin 100,000 unit/gram topical 1 applic topical BID 02/23/23 02/23/23 H istory powder warfarin 5 mg tablet 5 mg PO . @ MN,WD,FR,ST,SN 02/23/23 02/23/23 History Patient History Medical History History of kidney stones Presence of combination internal cardiac defibrillator (ICD) and pacemaker first placed 2010 @ [facility] replaced in 2014 & 2021 @ [facility]--biventricular [employer]. reports last check 11/25/22. Emphysema lung Legally blind Spasticity upper limbs Cervicogenic headache Atherogenic dyslipidemia Chronic back pain History of urinary self-catheterization self caths every other night History of DVT of lower extremity 2010 Macular degeneration Hearing deficit Depression Migraine CAD (coronary artery disease) s/p stent 2010 Myocardial Infarction 10/2010--follows with Dr. Abreu Atrial fibrillation on warfarin--follows with Dr. Abreu Pulmonary embolism 1992 and 2010 after heart attack--follows with Dr. Abreu Asthma inhaler prn Sleep apnea bipap Chronic systolic congestive heart failure EF 25-30% BPH loc w urin obs/LUTS Elevated PSA Ischemic cardiomyopathy Euvolemic at 11/23/22 cardio appt Balance problem Warfarin anticoagulation Surgical History S/P epidural steroid injection History of foot surgery plantar fasciitis History of open reduction and internal fixation (ORIF) procedure left foot--hardware removed History of prostate biopsy x3--precancerous, just monitoring for now History of prostate surgery 07/2016--[facility] prostate vaproization History of cystoscopy multiple History of colonoscopy with polypectomy History of esophagogastroduodenoscopy (EGD) History of right inguinal hernia repair x3 History of Khari fundoplication History of cholecystectomy History of tooth extraction History of eye surgery right--macular degeneration History of bilateral cataract extraction History of cardiac cath 10/2010 @ [facility]--1 stent placed Family History Son Family history of diabetes mellitus Other Family history non-contributory No family history of adverse response to anesthesia Social History Smoking Status: Former smoker Second Hand Exposure: Yes (father smoked); Do You Dip or Chew Tobacco: No; Hx Alcohol Use: No Hx Substance Use: No Preferred Language: Pakistani Communication Ability: Effective Relay Shop Tester Required: No Beliefs That Will Affect Care: None marital status: Current Living Situation: Spouse current occupational status: retired Feels Safe at Home: Yes Assistive Devices: Brace/Splint/Immobilizer, Cane, Special Shoe and Walker Results & Data Vital Signs (Past 12 Hours) Vital Signs Temp Pulse Resp BP Pulse Ox O2 Del Method O2 Flow Rate 03/04/23 03:00 36.8 C 74 18 131/63 91 Nasal Cannula 4 03/03/23 23:32 36.5 C 70 17 134/77 94 Nasal Cannula 4
[2023-03-04] MEDS: VALSARTAN/SACUBITRIL 51/49 MG TAB PO SCH ×2 (09:09→21:31)
[2023-03-04] MEDS: UMECLIDINIUM/VILANTEROL 62.5/25MCG 7 PUFFS/INHALER INH SCH (09:09)
[2023-03-04] MEDS: SENNA 8.6 MG TAB PO SCH ×2 (09:10→21:34)
[2023-03-04] MEDS: buPROPion HCl 100 MG TABLET PO SCH ×2 (09:10→21:31)
[2023-03-04] MEDS: carvediloL 25 MG TAB PO SCH ×2 (09:10→21:31)
[2023-03-04] MEDS: FINASTERIDE 5 MG TAB PO SCH (09:11)
[2023-03-04] MEDS: ASPIRIN 81 MG ECTAB PO SCH (09:12)
[2023-03-04] MEDS: oxyCODONE HCL 10 MG TABCR (OxyCONTIN) PO SCH ×2 (09:18→21:31)
[2023-03-04] MEDS: PANTOprazole 40 MG in SYRINGE 0 ML IV SCH ×2 (09:18→21:31)
[2023-03-04] MEDS: BUMETANIDE 2 MG in SYRINGE 0 ML IV SCH ×2 (09:18→17:06)
--- NOTE | 2023-03-04 09:22 | Gastrointestinal Consultation ---
Date of Consultation March 04, 2023 Assessment & Plan (1) Esophagitis: Suspect that esophagitis is secondary to episodes of vomiting. dysphagia is likely related to this since it is sudden in onset. Patient feels all of this was triggered by a reaction to an oral antibiotic. he has not had any further nausea or vomiting since yesterday. Discussed case with Dr. Mi. - continue protonix 40mg IV BID. - add carafate 1 gm qid. - no plans for any endoscopic evaluation given respiratory status. Patient is agreeable with this. Supervising Physician Co-Signing Physician Notes Agree with CASIMIRO Kraft as above Abd: Soft, NT, ND, +BS Continue current therapy and supportive care History of Present Illness Reason for Consultation: dysphagia, nausea, vomiting, esophagitis. Requesting Physician: Perry Muller MD Attending Physician: Perry Muller MD History of Present Illness Patient is a 78 year old male with a past medical history of ischemic cardiomyopathy, status post AICD, atrial fibrillation, CAD, hypertension, BPH who presents to the emergency department via EMS for worsening generalized weakness with feverishness and chills, body aches, and shortness of breath. He was admitted with sepsis, acute respiratory failure, and pneumonia. Gastroenterology consult placed for nausea, vomiting, dysphagia, and esophagitis seen on CT. Per patient as well as nursing, he had about 36 hours of nausea/vomiting that seemed to be related to an oral antibiotic that he was using. He tells me nausea and vomiting had resolved once he stopped the oral antibiotic and he has not had any further nausea or vomiting since yesterday. He tells me that prior to starting the antibiotic he had not had any issues with swallowing, but since doing so he has had some difficulty swallowing and feels liquids can stick in his chest. he also feels some pain with swallowing. CT shown esophagitis. He also had medium to large hiatal hernia seen on imaging and he tells me [facility]. he admits to taking protonix but is not sure of dosing. He uses this for heartburn and feels this does control symptoms. only mild reflux symptoms at this time. His main issue currently is the ongoing shortness of breath. he tells me that he has had some issues in the past but never any like this. He tells me his breathing has only been slightly better since admission. chest xray this morning with layering pleural effusions with consolidation. Patient denies any current issues with abdominal pain, unintentional weight loss, change in bowels, melena, or bright red blood per rectum. He tells me that he follows his outpatient GI care with [facility]. Allergies Allergy/AdvReac Type Severity Reaction Status Date / Time bee venom protein (honey bee) Allergy Severe SWELLING, Verified 01/05/23 12:58 SOB Penicillins Allergy Severe SWELLING, Verified 01/05/23 12:58 DIFFICULTY BREATHING lidocaine Allergy Mild RASH Verified 01/05/23 12:58 cefdinir AdvReac Severe Vomiting Verified 03/01/23 20:43 hydrocodone AdvReac Mild nausea Verified 01/05/23 12:58 oxycodone AdvReac Mild nausea-SLOW Verified 01/05/23 12:58 RELEASE IS OK Home Medications Medication Instructions Recorded Confirmed Type albuterol sulfate 90 mcg/actuation 2 puffs inhalation Q6H PRN 12/01/18 02/23/23 History aerosol inhaler Shortness Of Breath Or Wheezing bupropion HCl 100 mg tablet 100 mg PO BID 12/01/18 02/23/23 History docusate sodium 100 mg capsule 100 mg PO BID 12/01/18 02/23/23 History epinephrine 0.3 mg/0.3 mL 0.3 ml IM DIRECTED PRN 12/01/18 02/23/23 History injection, auto-injector Anaphylaxis finasteride 5 mg tablet 5 mg PO QAM 12/01/18 02/23/23 History aspirin 81 mg tablet,delayed 81 mg PO QAM 12/21/18 02/23/23 History release mometasone 50 mcg/actuation nasal 2 spray intranasal BID 12/21/18 02/23/23 History spray (Nasonex) oxycodone 10 mg tablet 10 mg PO Q12H 12/21/18 02/23/23 History sennosides 8.6 mg tablet 8.6 mg PO BID 12/21/18 02/23/23 History warfarin 5 mg tablet 2.5 mg PO . @TU, TH12/21/18 02/23/23 History white petrolatum-mineral oil 56.8 1 applic ophthalmic (eye) HS 12/21/18 02/23/23 History %-42.5 % eye ointment (Refresh Lacri-Lube) metoclopramide HCl 10 mg tablet 10 mg PO Q8H 09/04/19 02/23/23 History cetirizine 10 mg capsule 10 mg PO HS 11/06/19 02/23/23 History potassium chloride 20 mEq 20 meq PO BID #200 tabs 01/05/20 02/23/23 Rx tablet,extended release bumetanide 1 mg tablet 1 mg PO QAM 02/29/20 02/23/23 History sacubitril 49 mg-valsartan 51 mg 1 tab PO BID 11/25/20 02/23/23 History tablet pantoprazole 40 mg tablet,delayed 80 mg PO .@NOON 03/10/21 02/23/23 History release carvedilol 25 mg tablet 25 mg PO BID #180 tabs 05/12/21 02/23/23 Rx rosuvastatin 10 mg tablet (Crestor) 10 mg PO QPM 12/03/21 02/23/23 History pramipexole 0.375 mg 0.375 mg PO QAM 12/02/22 02/23/23 History tablet,extended release 24 hr (Mirapex ER) tiotropium 2.5 mcg-olodaterol 2.5 2 puff inhalation QAM 12/02/22 02/23/23 History mcg/actuation mist for inhalation (Stiolto Respimat) lanolin-mineral oil-NaCl-w.pet 1 ea topical Q8H 02/23/23 02/23/23 History lotion nystatin 100,000 unit/gram topical 1 applic topical BID 02/23/23 02/23/23 History powder warfarin 5 mg tablet 5 mg PO . @ MN,WD,FR,ST,SN 02/23/23 02/23/23 History Patient History Medical History History of kidney stones Presence of combination internal cardiac defibrillator (ICD) and pacemaker first placed 2010 @ [facility] replaced in 2014 & 2021 @ [facility]--biventricular [employer]. reports last check 11/25/22. Emphysema lung Legally blind Spasticity upper limbs Cervicogenic headache Atherogenic dyslipidemia Chronic back pain History of urinary self-catheterization self caths every other night History of DVT of lower extremity 2010 Macular degeneration Hearing deficit Depression Migraine CAD (coronary artery disease) s/p stent 2010 Myocardial Infarction 10/2010--follows with Dr. Abreu Atrial fibrillation on warfarin--follows with Dr. Abreu Pulmonary embolism 1992 and 2010 after heart attack--follows with Dr. Abreu Asthma inhaler prn Sleep apnea bipap Chronic systolic congestive heart failure EF 25-30% BPH loc w urin obs/LUTS Elevated PSA Ischemic cardiomyopathy Euvolemic at 11/23/22 cardio appt Balance problem Warfarin anticoagulation Surgical History S/P epidural steroid injection History of foot surgery plantar fasciitis History of open reduction and internal fixation (ORIF) procedure left foot--hardware removed History of prostate biopsy x3--precancerous, just monitoring for now History of prostate surgery 07/2016--[facility] prostate vaproization History of cystoscopy multiple History of colonoscopy with polypectomy History of esophagogastroduodenoscopy (EGD) History of right inguinal hernia repair x3 History of Khari fundoplication History of cholecystectomy History of tooth extraction History of eye surgery right--macular degeneration History of bilateral cataract extraction History of cardiac cath 10/2010 @ [facility]--1 stent placed Family History Son Family history of diabetes mellitus Other Family history non-contributory No family history of adverse response to anesthesia Social History Smoking Status: Former smoker Second Hand Exposure: Yes (father smoked); Do You Dip or Chew Tobacco: No; Hx Alcohol Use: No Hx Substance Use: No Preferred Language: Ukrainian Communication Ability: Effective Bead Wire Insulator Required: No Beliefs That Will Affect Care: None marital status: Current Living Situation: Spouse current occupational status: retired Feels Safe at Home: Yes Assistive Devices: Brace/Splint/Immobilizer, Cane, Special Shoe and Walker Review of Systems Review of Systems: All systems reviewed & are unremarkable except as noted in HPI & below Respiratory: + cough, + dyspnea and + dyspnea on exer tion Physical Exam Constitutional: WD/WN, vitals as above Respiratory: normal effort, some wheezes on auscultation. Cardiovascular: RRR, no murmur, no edema Gastrointestinal (Abdomen): normal bowel sounds, soft, nontender, no hepatosplenomegaly Skin: no rashes, warm and dry Psychiatric: Orientation: alert and oriented x 3 Results & Data Vital Signs (Past 12 Hours) Vital Signs Temp Pulse Resp BP Pulse Ox O2 Del Method O2 Flow Rate 03/04/23 08:53 97.9 F 67 17 123/83 91 Nasal Cannula 4.0 03/04/23 03:00 98.2 F 74 18 131/63 91 Nasal Cannula 4 03/03/23 23:32 97.7 F 70 17 134/77 94 Nasal Cannula 4 PG Care Time/CCT Total # of Minutes Spent Total Time Spent with Patient: Total time spent is greater than 50% in coordination of care (as documented) at patient's floor/unit and/or counseling patient: Coding Level of Care Code 08864 INT INP/OBS CARE 2/55MIN Diagnoses Esophagitis K20.90 Time Spent (min) 64
[2023-03-04] MEDS: DOCUSATE SODIUM 100 MG CAP PO SCH ×2 (09:40→21:33)
[2023-03-04] MEDS: SUCRALFATE 1 GM/10 ML UDC PO SCH ×3 (10:51→21:31)
--- NOTE | 2023-03-04 15:06 | CT Scan Report ---
CT SCAN OF THE CHEST WITHOUT IV CONTRAST CLINICAL HISTORY: Hypoxia. COMPARISON STUDY: Prior chest CT scans, most recently dated 02/23/2023. Chest x-ray dated 03/04/2023. TECHNIQUE: CT scan of the thorax was performed from the thoracic inlet to the upper abdomen. Images are reviewed in the axial, sagittal, and coronal planes. IV contrast was not administered for this ex amination as per the referring clinician. A dose lowering technique was utilized adhering to the estefany weldon of GHAZAL[place]. FINDINGS: Thyroid: Mildly enlarged and heterogeneous. Thoracic aorta: There is atherosclerotic calcification of the thoracic aorta, which is normal in jorje jocelyn and demonstrates standard 3-vessel arch anatomy. Heart: A cardiac pacemaker is present in the left chest wall. The heart is enlarged and without peric ardial effusion. The coronary arteries are densely calcified. Myocardial fat deposition suggests prev ious ischemia. There is epicardial lipomatosis. The main pulmonary arteries appear dilated suggesting pulmonary artery hypertension. Lungs and pleural spaces: There is moderate emphysema. There are small pleural effusions with depende nt consolidation. Scattered calcified granulomas are observed. The trachea and central airways are cl ear. Mediastinum: There is no mediastinal lymphadenopathy. Tracie: Not well assessed without IV contrast. Axillae: There is no axillary lymphadenopathy. Upper abdomen: There is a moderate to large hiatal hernia. The esophagus appears circumferentially th ick walled. The esophagus is filled with fluid/debris nearly to the thoracic inlet. Postsurgical downs ge is noted at the gastroesophageal junction. A 1.8 cm ovoid hypodensity in the spleen is been presen t dating back to 2013 and is statistically of doubtful significance. Skeletal structures: The skeletal structures are osteopenic. No lytic or blastic bony lesions are see n. Degenerative change is noted in the shoulders and spine. IMPRESSION: 1. Cardiomegaly and emphysema. 2. Small pleural effusions and dependent consolidation. Correlate clinically for evidence of pneumoni a/aspiration pneumonitis. Radiographic follow-up to resolution is recommended. 3. Moderate to large hiatal hernia. 4. The esophagus appears diffusely thick-walled, and contains fluid/debris nearly to the level of the thoracic inlet. Correlate clinically for evidence of esophagitis. This could be further assessed wit h endoscopy if clinically warranted. Note that debris within the esophagus may place the patient at r isk for aspiration. 5. Additional findings as above. ACT 112: Negative or not required by law. Electronically signed by: Ankush Byrnes M.D. 03/04/2023 3:04 PM
[2023-03-04] MEDS: CEFEPIME 2,000 MG in SYRINGE 0 ML IV SCH ×2 (15:17→23:04)
[2023-03-04] MEDS: metOLazone 5 MG TABLET PO SCH (17:30)
--- NOTE | 2023-03-04 18:33 | Hospitalist Progress Note ---
Date of Service March 04, 2023 Assessment & Plan (1) Dysphagia: Plan: Patient complains of having dysphagia and nausea intermittent with vomiting for the last few days -The patient has large hiatal hernia, CT of chest showed evidence of esophagitis -Currently on PPI twice daily, Carafate is added by GI, appreciate GI consult, advance diet to full liquid diet - (2) Hypoxia: Plan: We will initiate patient admitted to the hospital with severe sepsis/pneumonia and hypoxia which improved, -Patient received IV fluid and Bumex was held when patient had nausea and vomiting -Started on Bumex, metolazone is added today, discussed with cardiology over the phone, -Monitor kidney function - continue IV diuretic (3) Severe sepsis: Plan: Severe sepsis with septic shock -Complete the course of treatment with antibiotics, (4) Chronic systolic congestive heart failure: Plan: Heart failure reduced ejection fraction, CAD, ICD/pacer, paroxysmal Afib Echo 07/2022 stable, EF 25-30% with grade 1 diastolic dysfunction and diffuse hypokinesis with additional inferior wall akinesis, posterior wall akinesis. Last ICD interrogation 12/2022, no episodes of A-fib/flutter; 6 episodes of nonsustained SVT/PVCs up to 22 seconds. Pacing percentage less than 95% primary [employer] Security Consultant evaluated the patient. Continue carvedilol, Entresto, Bumex Anticoagulated on Coumadin, goal INR 23, INR supratherapeutic, hold Coumadin Aspirin 81 mg continued Continue Crestor EKG paced, no acute ischemic findings. Clinically without chest pain. Suspect elevated troponin due to demand ischemia from sepsis. Echocardiogram Reviewed -INR tomorrow (5) Presence of biventricular automatic cardioverter/defibrillator (AICD): Plan: Paced rhythm noted (6) Tremor: (7) Atrial fibrillation: Plan: Paced rhythm. Patient is with therapeutic INR. Continue warfarin with goal INR 23 (8) Atherogenic dyslipidemia: (9) Benign essential hypertension: Plan: Hypertension Fairly controlled with current regiment (10) Cervical radiculopathy: Plan: Hx of Idiopathic peripheral neuropathy, tremor, cervical radiculopathy Follows with neurology. Has a history of cervical radiculopathy with hand atrophy stable. Significant improvement on Mirapex as outpt. Continued. (11) BPH loc w urin obs/LUTS: Plan: - [place] in place. Strict I&os. Patient requests that the [place] stay in place until a day prior to discharge normally straight caths himself (12) Acute kidney injury: Plan: Monitor BMP closely Avoid nephrotoxins Resolved MERT most likely prerenal due to sepsis Plan DVT prophylaxis: Anticoagulated with Coumadin Diet: Heart healthy CODE STATUS: Full code Admission and Anticipated Discharge Date Admission Date: February 23, 2023 Physical Exam Physical Exam: General: Awake, conversant Heart: S1, S2/regular rate and rhythm, no murmur rubs or gallops Lungs: Clear to auscultation bilaterally. Normal effort Abdomen: Soft/nontender/nondistended. No hepatosplenomegaly Extremities: No clubbing/cyanosis. Trace bilateral edema Behavior: Appropriate, cooperative Constitutional: WD/WN, vitals as above Respiratory: normal respiratory effort, lungs clear to auscultation Cardiovascular: RRR, no murmur, no edema Gastrointestinal (Abdomen): normal bowel sounds, soft, nontender, no hepatosplenomegaly Skin: no rashes, warm and dry Psychiatric: A+Ox3, euthymic affect Orientation: alert and oriented x 3 Results & Data Results & Data Vital Signs (Past 12 Hours) Vital Signs Temp Pulse Resp BP Pulse Ox O2 Del Method O2 Flow Rate 03/04/23 16:15 36.9 C 69 17 124/79 93 Nasal Cannula 4.0 03/04/23 12:22 36.5 C 67 20 118/71 95 Nasal Cannula 4 03/04/23 08:53 36.6 C 67 17 123/83 91 Nasal Cannula 4.0 PG Care Time/CCT Total # of Minutes Spent Total Time Spent with Patient: Total time spent is greater than 50% in coordination of care (as documented) at patient's floor/unit and/or counseling patient: Coding Level of Care Code 34170 SUB INP/OBS CARE 3/50MIN Diagnoses Dysphagia R13.10 Hypoxia R09.02 Severe sepsis A41.9; R65.20 Chronic systolic congestive heart failure I50.22 Presence of biventricular automatic cardioverter/defibrillator (AICD) Z95.810 Tremor R25.1 Paroxysmal atrial fibrillation I48.0 Atrial fibrillation type: paroxysmal Atherogenic dyslipidemia E78.5 Benign essential hypertension I10 Cervical radiculopathy M54.12 BPH loc w urin obs/LUTS N40.1 Acute kidney injury N17.9 (7) Atrial fibrillation Atrial fibrillation type: paroxysmal Qualified Code(s): I48.0 - Paroxysmal atrial fibrillation
[2023-03-04] MEDS: ROSUVASTATIN CALCIUM 10 MG TAB PO SCH (21:31)
[2023-03-05] MEDS: CEFEPIME 2,000 MG in SYRINGE 0 ML IV SCH ×2 (05:50→14:26)
[2023-03-05 06:54] LABS: INR 4.8 (0.9-1.1)
[2023-03-05] MEDS ORDERED: bisacodyL 10 MG SUPP PR PRN (09:01)
[2023-03-05] MEDS: BUMETANIDE 2 MG in SYRINGE 0 ML IV SCH ×2 (09:07→17:48)
[2023-03-05] MEDS: PANTOprazole 40 MG in SYRINGE 0 ML IV SCH ×2 (09:07→21:31)
[2023-03-05] MEDS: UMECLIDINIUM/VILANTEROL 62.5/25MCG 7 PUFFS/INHALER INH SCH (09:08)
[2023-03-05] MEDS: carvediloL 25 MG TAB PO SCH ×2 (09:08→21:30)
[2023-03-05] MEDS: SENNA 8.6 MG TAB PO SCH ×2 (09:09→21:31)
[2023-03-05] MEDS: VALSARTAN/SACUBITRIL 51/49 MG TAB PO SCH ×2 (09:09→21:32)
[2023-03-05] MEDS: ASPIRIN 81 MG ECTAB PO SCH (09:09)
[2023-03-05] MEDS: metOLazone 5 MG TABLET PO SCH (09:09)
[2023-03-05] MEDS: buPROPion HCl 100 MG TABLET PO SCH (09:09)
[2023-03-05] MEDS: SUCRALFATE 1 GM/10 ML UDC PO SCH ×4 (09:09→21:30)
[2023-03-05] MEDS: FINASTERIDE 5 MG TAB PO SCH (09:09)
[2023-03-05] MEDS: oxyCODONE HCL 10 MG TABCR (OxyCONTIN) PO SCH ×2 (09:18→21:30)
[2023-03-05] MEDS: DOCUSATE SODIUM 100 MG CAP PO SCH ×2 (09:18→21:31)
--- NOTE | 2023-03-05 10:06 | Communication Note ---
Date of Service: March 05, 2023 Patient has seen improvement in symptoms since starting carafate. no further nausea, vomiting. he feels swallowing has been somewhat better with even the few doses he has had. continue with protonix 40mg bid and carafate 1 gm qid. discussed with patient and his . questions answered.
[2023-03-05] MEDS: METOCLOPRAMIDE HCL 10 MG TABLET PO SCH ×3 (11:19→21:30)
[2023-03-05] MEDS: LACTULOSE SYRUP 30 GM/45 ML UDP PO SCH ×3 (12:09→21:31)
--- NOTE | 2023-03-05 18:15 | Hospitalist Progress Note ---
Date of Service March 05, 2023 Assessment & Plan (1) Dysphagia: Plan: Patient complains of having dysphagia and nausea intermittent with vomiting for the last few days -The patient has large hiatal hernia, CT of chest showed evidence of esophagitis -Currently on PPI twice daily, Carafate is added by GI, appreciate GI consult -If the patient complaining of nausea and dysphagia, however after he had multiple bowel movement today he nausea slightly feels better, agreed to try solid food, discussed with GI - (2) Hypoxia: Plan: the patient admitted to the hospital with severe sepsis/pneumonia and hypoxia which improved, -Patient received IV fluid and Bumex was held when patient had nausea and vomiting -Started on Bumex, metolazone , -Monitor kidney function - continue IV diuretic -Initial hypoxia was felt to be due to to pneumonia, but current hypoxia felt to be secondary to CHF/volume overload due to systolic heart failure -The patient has bilateral pleural effusion, discussed with road mender given patient has high INR will need to hold Coumadin for proceeding with thoracentesis - (3) Severe sepsis: Plan: Severe sepsis with septic shock -Complete the course of treatment with antibiotics, (4) Chronic systolic congestive heart failure: Plan: Heart failure reduced ejection fraction, CAD, ICD/pacer, paroxysmal Afib Echo 07/2022 stable, EF 25-30% with grade 1 diastolic dysfunction and diffuse hypokinesis with additional inferior wall akinesis, posterior wall akinesis. Last ICD interrogation 12/2022, no episodes of A-fib/flutter; 6 episodes of nonsustained SVT/PVCs up to 22 seconds. Pacing percentage less than 95% primary Cnc Machine Setter evaluated the patient. Continue carvedilol, Entresto, Bumex Anticoagulated on Coumadin, goal INR 23, INR supratherapeutic, hold Coumadin Continue Crestor EKG paced, no acute ischemic findings. Clinically without chest pain. Suspect elevated troponin due to demand ischemia from sepsis. Echocardiogram Reviewed -Coumadin for possible paracentesis, hold aspirin (5) Presence of biventricular automatic cardioverter/defibrillator (AICD): Plan: Paced rhythm noted (6) Tremor: (7) Atrial fibrillation: Plan: The plan is as mentioned above (8) Atherogenic dyslipidemia: (9) Benign essential hypertension: Plan: Hypertension Fairly controlled with current regiment (10) Cervical radiculopathy: Plan: Hx of Idiopathic peripheral neuropathy, tremor, cervical radiculopathy Follows with neurology. Has a history of cervical radiculopathy with hand atrophy stable. Significant improvement on Mirapex as outpt. Continued. (11) BPH loc w urin obs/LUTS: Plan: - [place] in place. Strict I&os. Patient requests that the [place] stay in place until a day prior to discharge normally straight caths himself (12) Acute kidney injury: Plan: Monitor BMP closely Avoid nephrotoxins Resolved MERT most likely prerenal due to sepsis Plan DVT prophylaxis: Anticoagulated with Coumadin Diet: Heart healthy CODE STATUS: Full code Admission and Anticipated Discharge Date Admission Date: February 23, 2023 Subjective After patient had multiple bowel movement, his nausea feels better, patient [id number] Reglan, lactulose, advance diet to heart healthy diet Review of Systems Review of Systems: Negative except as per HPI Physical Exam Physical Exam: General: Awake, conversant Heart: S1, S2/regular rate and rhythm, no murmur rubs or gallops Lungs: Clear to auscultation bilaterally. Normal effort Abdomen: Soft/nontender/nondistended. No hepatosplenomegaly Extremities: No clubbing/cyanosis. Trace bilateral edema Behavior: Appropriate, cooperative Constitutional: WD/WN, vitals as above Respiratory: normal respiratory effort, lungs clear to auscultation Cardiovascular: RRR, no murmur, no edema Gastrointestinal (Abdomen): normal bowel sounds, soft, nontender, no hepatosplenomegaly Skin: no rashes, warm and dry Psychiatric: A+Ox3, euthymic affect Orientation: alert and oriented x 3 Results & Data Results & Data Vital Signs (Past 12 Hours) Vital Signs Temp Pulse Resp BP Pulse Ox O2 Del Method O2 Flow Rate 03/05/23 16:18 36.2 C L 76 18 116/91 95 Nasal Cannula 3 03/05/23 12:45 36.1 C L 90 17 101/59 L 95 Nasal Cannula 3 03/05/23 08:00 Nasal Cannula 2.5 03/05/23 07:43 35.9 C L 77 20 95/57 L 92 Nasal Cannula 4 PG Care Time/CCT Total # of Minutes Spent Total Time Spent with Patient: Total time spent is greater than 50% in coordination of care (as documented) at patient's floor/unit and/or counseling patient: Coding Level of Care Code 22457 SUB INP/OBS CARE 3/50MIN Diagnoses Dysphagia R13.10 Hypoxia R09.02 Severe sepsis A41.9; R65.20 Chronic systolic congestive heart failure I50.22 Presence of biventricular automatic cardioverter/defibrillator (AICD) Z95.810 Tremor R25.1 Paroxysmal atrial fibrillation I48.0 Atrial fibrillation type: paroxysmal Atherogenic dyslipidemia E78.5 Benign essential hypertension I10 Cervical radiculopathy M54.12 BPH loc w urin obs/LUTS N40.1 Acute kidney injury N17.9 (7) Atrial fibrillation Atrial fibrillation type: paroxysmal Qualified Code(s): I48.0 - Paroxysmal atrial fibrillation
[2023-03-05] MEDS: ROSUVASTATIN CALCIUM 10 MG TAB PO SCH (21:30)
[2023-03-06] MEDS: SUCRALFATE 1 GM/10 ML UDC PO SCH ×4 (09:20→20:41)
[2023-03-06] MEDS: VALSARTAN/SACUBITRIL 51/49 MG TAB PO SCH ×2 (09:20→20:41)
[2023-03-06] MEDS: metOLazone 5 MG TABLET PO SCH (09:20)
[2023-03-06] MEDS: FINASTERIDE 5 MG TAB PO SCH (09:20)
[2023-03-06] MEDS: BUMETANIDE 2 MG in SYRINGE 0 ML IV SCH ×2 (09:20→16:51)
[2023-03-06] MEDS: PANTOprazole 40 MG in SYRINGE 0 ML IV SCH ×2 (09:20→20:42)
[2023-03-06] MEDS: UMECLIDINIUM/VILANTEROL 62.5/25MCG 7 PUFFS/INHALER INH SCH (09:20)
[2023-03-06] MEDS: METOCLOPRAMIDE HCL 10 MG TABLET PO SCH ×4 (09:20→20:41)
[2023-03-06] MEDS: carvediloL 25 MG TAB PO SCH ×2 (09:20→20:42)
[2023-03-06] MEDS: DOCUSATE SODIUM 100 MG CAP PO SCH ×2 (09:21→20:40)
[2023-03-06] MEDS: LACTULOSE SYRUP 30 GM/45 ML UDP PO SCH ×4 (09:21→20:40)
[2023-03-06] MEDS: SENNA 8.6 MG TAB PO SCH ×2 (09:22→20:41)
[2023-03-06] MEDS: oxyCODONE HCL 10 MG TABCR (OxyCONTIN) PO SCH ×2 (09:26→20:43)
[2023-03-06 10:10] LABS: INR 2.8 (0.9-1.1); Prothrombin Time 28.7 Seconds (9.0-12.0)
[2023-03-06] MEDS: ROSUVASTATIN CALCIUM 10 MG TAB PO SCH (20:42)
--- NOTE | 2023-03-06 20:48 | Hospitalist Progress Note ---
Date of Service March 06, 2023 Assessment & Plan (1) Dysphagia: Plan: Patient complains of having dysphagia and nausea intermittent with vomiting for the last few days -The patient has large hiatal hernia, CT of chest showed evidence of esophagitis -Currently on PPI twice daily, Carafate is added by GI, appreciate GI consult -The patient was able to tolerate solid food, complaining of dysphagia and pain with swallowing are both empirically started on Diflucan for treated - (2) Hypoxia: Plan: the patient admitted to the hospital with severe sepsis/pneumonia and hypoxia which improved, -Patient received IV fluid and Bumex was held when patient had nausea and vomiting -Again patient became hypoxic, started on Bumex, metolazone , but still remain hypoxic -Incentive spirometer, chest CT did not show any pulmonary infiltrate, showed bilateral pleural effusion, will consult with to see if the patient is a candidate for thoracentesis due to hypoxia -No wheezing on exam, hold warfarin for thoracentesis, INR trending down (3) Severe sepsis: Plan: - The patient should present to the hospital with pneumonia severe sepsis with septic shock now patient has improvement complete the course of treatment (4) Chronic systolic congestive heart failure: Plan: Heart failure reduced ejection fraction, CAD, ICD/pacer, paroxysmal Afib Echo 07/2022 stable, EF 25-30% with grade 1 diastolic dysfunction and diffuse hypokinesis with additional inferior wall akinesis, posterior wall akinesis. Last ICD interrogation 12/2022, no episodes of A-fib/flutter; 6 episodes of nonsustained SVT/PVCs up to 22 seconds. Pacing percentage less than 95% primary Electrical Solderer evaluated the patient. Continue carvedilol, Entresto, Bumex Anticoagulated on Coumadin, hold Coumadin for possible thoracentesis Continue Crestor EKG paced, no acute ischemic findings. Clinically without chest pain. Suspect elevated troponin due to demand ischemia from sepsis. Echocardiogram Reviewed -hold aspirin (5) Presence of biventricular automatic cardioverter/defibrillator (AICD): Plan: Paced rhythm noted (6) Tremor: (7) Atrial fibrillation: Plan: The plan is as mentioned above (8) Atherogenic dyslipidemia: Plan: Currently on statin (9) Benign essential hypertension: Plan: Hypertension Fairly controlled with current regiment (10) Cervical radiculopathy: Plan: Hx of Idiopathic peripheral neuropathy, tremor, cervical radiculopathy Follows with neurology. Has a history of cervical radiculopathy with hand atrophy stable. Significant improvement on Mirapex as outpt. Continued. (11) BPH loc w urin obs/LUTS: Plan: - Kingston in place. Strict I&os. Patient requests that the Kingston stay in place until a day prior to discharge normally straight caths himself (12) Acute kidney injury: Plan: Monitor BMP closely Avoid nephrotoxins Resolved MERT most likely prerenal due to sepsis (13) Bilateral foot-drop: Plan: The patient has bilateral foot drop and according to him because he was exposed to agent orange during the [place] War Plan Downgrade to telemetry bed, continue diuresis with metolazone and Bumex, pulmonary consult for possible thoracentesis due to hypoxia, appetite stimulant, add Diflucan for possible esophagitis due to Jenny, follow CBC BMP PT/INR tomorrow add appetite stimulant, add Ensure Admission and Anticipated Discharge Date Admission Date: February 23, 2023 Subjective Patient was able to tolerate oral intake, complaining of poor appetite, dysphagia and pain during swallowing, continue current treatment, still patient is significantly hypoxic despite having adequate diuresis, continue metolazone, continue Bumex, we ask for pulmonary consult to drain pleural effusion, Coumadin has been held, INR is trending down Results & Data Results & Data Vital Signs (Past 12 Hours) Vital Signs Temp Pulse Pulse Resp BP Pulse Ox O2 Del Method 03/06/23 19:26 36.7 C 74 23 89/69 L 91 Nasal Cannula 03/06/23 15:39 74 03/06/23 15:17 72 100/57 L 03/06/23 15:04 36.8 C 120 H 18 81/48 L 98 Nasal Cannula 03/06/23 12:26 Nasal Cannula 03/06/23 10:59 36.6 C 77 19 91/56 L 92 Nasal Cannula O2 Flow Rate 03/06/23 19:26 4 03/06/23 15:39 03/06/23 15:17 03/06/23 15:04 4 03/06/23 12:26 4 03/06/23 10:59 4 PG Care Time/CCT Total # of Minutes Spent Total Time Spent with Patient: Total time spent is greater than 50% in coordination of care (as documented) at patient's floor/unit and/or counseling patient: Coding Level of Care Code 96036 SUB INP/OBS CARE 3/50MIN Diagnoses Dysphagia R13.10 Hypoxia R09.02 Severe sepsis A41.9; R65.20 Chronic systolic congestive heart failure I50.22 Presence of biventricular automatic cardioverter/defibrillator (AICD) Z95.810 Tremor R25.1 Paroxysmal atrial fibrillation I48.0 Atrial fibrillation type: paroxysmal Atherogenic dyslipidemia E78.5 Benign essential hypertension I10 Cervical radiculopathy M54.12 BPH loc w urin obs/LUTS N40.1 Acute kidney injury N17.9 Bilateral foot-drop M21.371; M21.372 (7) Atrial fibrillation Atrial fibrillation type: paroxysmal Qualified Code(s): I48.0 - Paroxysmal atrial fibrillation
[2023-03-06] MEDS: FLUCONAZOLE 100 MG TAB PO SCH (21:33)
[2023-03-07 06:50] LABS: Hematocrit (blood only) 40.2 % (42.0-52.0); Hemoglobin 13.3 g/dl (14.0-18.0); Mean Corpuscular Hemoglobin 28.8 pg (25.0-34.0); Mean Corpuscular Hgb Conc 33.1 g/dL (32.0-36.0); Mean Platelet Volume 11.4 fL (9.4-12.4); Platelet Count 324 K/uL (130-400); RDW Coefficient of Variation 14.2 % (11.5-14.5); Red Blood Count 4.62 M/uL (4.70-6.10); White Blood Count 9.83 K/ul (4.8-10.8)
[2023-03-07 07:02] LABS: INR 1.5 (0.9-1.1); Prothrombin Time 16.4 Seconds (9.0-12.0)
[2023-03-07 07:06] LABS: BUN Creatinine Ratio 25.1 (10-20); Calcium 8.7 mg/dl (8.6-10.3); Creatinine Clr Calc Pharmacy 38.9 ml/min; Est GFR (Non-African American) 32.8 ml/min; Potassium 2.4 mmol/L (3.5-5.1)
[2023-03-07] MEDS: POTASSIUM CHLORIDE / WTR 10 MEQ/100 ML PLCT IV SCH ×6 (08:17→14:35)
[2023-03-07] MEDS: droNABinol 2.5 MG CAP PO SCH ×3 (08:21→17:42)
[2023-03-07] MEDS: oxyCODONE HCL 10 MG TABCR (OxyCONTIN) PO SCH ×2 (08:21→20:29)
[2023-03-07] MEDS: DOCUSATE SODIUM 100 MG CAP PO SCH ×3 (08:22→20:33)
[2023-03-07] MEDS: SENNA 8.6 MG TAB PO SCH ×3 (08:23→20:28)
[2023-03-07] MEDS: LACTULOSE SYRUP 30 GM/45 ML UDP PO SCH ×4 (08:23→20:12)
[2023-03-07] MEDS: VALSARTAN/SACUBITRIL 51/49 MG TAB PO SCH ×2 (08:24→20:29)
[2023-03-07] MEDS: SUCRALFATE 1 GM/10 ML UDC PO SCH ×4 (08:24→20:29)
[2023-03-07] MEDS: UMECLIDINIUM/VILANTEROL 62.5/25MCG 7 PUFFS/INHALER INH SCH (08:24)
[2023-03-07] MEDS: METOCLOPRAMIDE HCL 10 MG TABLET PO SCH ×4 (08:25→20:29)
[2023-03-07] MEDS: metOLazone 5 MG TABLET PO SCH (08:25)
[2023-03-07] MEDS: FINASTERIDE 5 MG TAB PO SCH (08:25)
[2023-03-07] MEDS: carvediloL 25 MG TAB PO SCH ×2 (08:25→20:13)
[2023-03-07] MEDS ORDERED: BUPIVACAINE 0.25% 2.5MG/ML PF 10 ML VIAL INFIL ONE (09:58)
--- NOTE | 2023-03-07 10:36 | Pulmonary Consultation ---
Date of Consultation March 07, 2023 Assessment & Plan (1) NYHA class 4 acute on chronic systolic heart failure: (2) Hypoxia: (3) Complex sleep apnea syndrome: (4) Atrial fibrillation: Atrial fibrillation type: paroxysmal Qualified Code(s): I48.0 - Paroxysmal atrial fibrillation (5) Centrilobular emphysema: Plan 78-year-old male with a history of complex sleep apnea syndrome based on sleep study from 2019, NYHA class IV acute on chronic systolic heart failure, atrial fibrillation on warfarin and CKD 3 who presented to the hospital due to ongoing shortness of breath and weakness. I performed a bilateral pleural ultrasound today. No significant pleural effusion seen on the left and very small pleural effusion noted on the right with an estimated 50 mL of fluid. I do not think draining this tiny pleural effusion will make a difference in the patient's symptoms and the risks outweigh the benefits at this time. Patient is in agreement along with his . He seems to have severe systolic cardiomyopathy and I would recommend palliative care consult and cardiology consult. Can consider a trial of dobutamine or milrinone, but would defer to cardiology. Additionally the patient does have significant emphysema noted on the CT chest without contrast. No prior PFTs available for review. Patient does note a smoking history of approximately 30 pack years and quit several decades ago. He does not appear to be in acute COPD exacerbation. Agree with continuing LABA/LAMA inhaler. No role for corticosteroids at this time. Recommend incentive spirometer for pulmonary toilet. Lastly, he has a history of complex sleep apnea with mixed obstructive and central apneas related to his cardiomyopathy. Recommend outpatient sleep medicine follow-up. Thank you for allowing me to participate in the care of the patient. I have no further input at this time. We will sign off. History of Present Illness Reason for Consultation: Bilateral pleural effusion Attending Physician: Perry Muller MD History of Present Illness 78-year-old male with a past medical history of ischemic cardiomyopathy, atrial fibrillation, AICD and BiV who presented to the hospital due to increasing shortness of breath and weakness. Patient notes that his shortness of breath has improved somewhat during this hospitalization. Unfortunately he has gone into renal failure from diuresis and is currently hypokalemic. During my exam his is at bedside and he is sitting up in bed. He is currently on 4 L of oxygen saturating in the mid 90s. ABG from February 23 reviewed with evidence of mild respiratory alkalosis. Patient endorses some sinus congestion and postnasal drip symptoms. He has an occasional cough without any evidence of hemoptysis. He denies any fevers, chills or night sweats. Prior to his hospitalization he denies needing oxygen. Echo 02/25/2023 revealed global hypokinesis with additional akinesis of RCA territory myocardium. Echo in July revealed an EF of 25 to 30%. Grade 1 diastolic dysfunction. He had a sleep study in 2019 which revealed severe complex sleep apnea which improved with BiPAP 11/01 with a backup rate of 18. He had an AHI of 20.6 with 5 obstructive apneas and 36 central apneas. It is unclear whether he had any follow-up with sleep medicine. I personally reviewed his CT chest without IV contrast from 03/04/2023 which revealed bilateral severe centrilobular emphysema with small pleural effusions and dependent atelectasis. Subsequent chest x-ray 03/04/2023 revealed bilateral atelectasis with small effusions. I performed [id number] ultrasound of the bilateral hemithoraces. Minimal B- lines were seen. There was no pleural effusion seen on the left and there was a very small pleural effusion noted on the right with an estimated approximately 50 mL's of fluid in the pleural space. Allergies Allergy/AdvReac Type Severity Reaction Status Date / Time bee venom protein (honey bee) Allergy Severe SWELLING, Verified 01/05/23 12:58 SOB Penicillins Allergy Severe SWELLING, Verified 01/05/23 12:58 DIFFICULTY BREATHING lidocaine Allergy Mild RASH Verified 01/05/23 12:58 cefdinir AdvReac Severe Vomiting Verified 03/01/23 20:43 hydrocodone AdvReac Mild nausea Verified 01/05/23 12:58 oxycodone AdvReac Mild nausea-SLOW Verified 01/05/23 12:58 RELEASE IS OK Home Medications Medication Instructions Recorded Confirmed Type albuterol sulfate 90 mcg/actuation 2 puffs inhalation Q6H PRN 12/01/18 02/23/23 History aerosol inhaler Shortness Of Breath Or Wheezing bupropion HCl 100 mg tablet 100 mg PO BID 12/01/18 02/23/23 History docusate sodium 100 mg capsule 100 mg PO BID 12/01/18 02/23/23 History epinephrine 0.3 mg/0.3 mL 0.3 ml IM DIRECTED PRN 12/01/18 02/23/23 History injection, auto-injector Anaphylaxis finasteride 5 mg tablet 5 mg PO QAM 12/01/18 02/23/23 History aspirin 81 mg tablet,delayed 81 mg PO QAM 12/21/18 02/23/23 History release mometasone 50 mcg/actuation nasal 2 spray intranasal BID 12/21/18 02/23/23 History spray (Nasonex) oxycodone 10 mg tablet 10 mg PO Q12H 12/21/18 02/23/23 History sennosides 8.6 mg tablet 8.6 mg PO BID 12/21/18 02/23/23 History warfarin 5 mg tablet 2.5 mg PO . @TU, 12/21/18 02/23/23 History white petrolatum-mineral oil 56.8 1 applic ophthalmic (eye) HS 12/21/18 02/23/23 History %-42.5 % eye ointment (Refresh Lacri-Lube) metoclopramide HCl 10 mg tablet 10 mg PO Q8H 09/04/19 02/23/23 History cetirizine 10 mg capsule 10 mg PO HS 11/06/19 02/23/23 History potassium chloride 20 mEq 20 meq PO BID #200 tabs 01/05/20 02/23/23 Rx tablet,extended release bumetanide 1 mg tablet 1 mg PO QAM 02/29/20 02/23/23 History sacubitril 49 mg-valsartan 51 mg 1 tab PO BID 11/25/20 02/23/23 History tablet pantoprazole 40 mg tablet,delayed 80 mg PO .@NOON 03/10/21 02/23/23 History release carvedilol 25 mg tablet 25 mg PO BID #180 tabs 05/12/21 02/23/23 Rx rosuvastatin 10 mg tablet (Crestor) 10 mg PO QPM 12/03/21 02/23/23 History pramipexole 0.375 mg 0.375 mg PO QAM 12/02/22 02/23/23 History tablet,extended release 24 hr (Mirapex ER) tiotropium 2.5 mcg-olodaterol 2.5 2 puff inhalation QAM 12/02/22 02/23/23 History mcg/actuation mist for inhalation (Stiolto Respimat) lanolin-mineral oil-NaCl-w.pet 1 ea topical Q8H 02/23/23 02/23/23 History lotion nystatin 100,000 unit/gram topical 1 applic topical BID 02/23/23 02/23/23 History powder warfarin 5 mg tablet 5 mg PO . @ MN,WD,FR,ST,SN 02/23/23 02/23/23 History Patient History Medical History (Updated 03/07/23 @ 10:35 by Kike Garcia MD) Centrilobular emphysema Complex sleep apnea syndrome NYHA class 4 acute on chronic systolic heart failure History of kidney stones Presence of combination internal cardiac defibrillator (ICD) and pacemaker first placed 2010 @ [facility] replaced in 2014 & 2021 @ [facility]--biventricular [employer]. reports last check 11/25/22. Emphysema lung Legally blind Spasticity upper limbs Cervicogenic headache Atherogenic dyslipidemia Chronic back pain History of urinary self-catheterization self caths every other night History of DVT of lower extremity 2010 Macular degeneration Hearing deficit Depression Migraine CAD (coronary artery disease) s/p stent 2010 Myocardial Infarction 10/2010--follows with Dr. Abreu Atrial fibrillation on warfarin--follows with Dr. Abreu Pulmonary embolism 1992 and 2010 after heart attack--follows with Dr. Abreu Asthma inhaler prn Sleep apnea bipap Chronic systolic congestive heart failure EF 25-30% BPH loc w urin obs/LUTS Elevated PSA Ischemic cardiomyopathy Euvolemic at 11/23/22 cardio appt Balance problem Warfarin anticoagulation Surgical History S/P epidural steroid injection History of foot surgery plantar fasciitis History of open reduction and internal fixation (ORIF) procedure left foot--hardware removed History of prostate biopsy x3--precancerous, just monitoring for now History of prostate surgery 07/2016--[facility] prostate vaproization History of cystoscopy multiple History of colonoscopy with polypectomy History of esophagogastroduodenoscopy (EGD) History of right inguinal hernia repair x3 History of Khari fundoplication History of cholecystectomy History of tooth extraction History of eye surgery right--macular degeneration History of bilateral cataract extraction History of cardiac cath 10/2010 @ [facility]--1 stent placed Family History Son Family history of diabetes mellitus Other Family history non-contributory No family history of adverse response to anesthesia Social History Smoking Status: Former smoker Second Hand Exposure: Yes (father smoked); Do You Dip or Chew Tobacco: No; Hx Alcohol Use: No Hx Substance Use: No Preferred Language: Hebrew Communication Ability: Effective Vest Maker Required: No Beliefs That Will Affect Care: None marital status: Current Living Situation: Spouse current occupational status: retired Feels Safe at Home: Yes Assistive Devices: Brace/Splint/Immobilizer, Cane, Special Shoe and Walker Review of Systems Review of Systems: All systems reviewed & are unremarkable except as noted in HPI & below Physical Exam Physical Exam: Constitutional: Patient appears to be of their stated age. Patient is in no apparent distress. Patient is well-developed. Eyes: Pupils are equal round and reactive to light. Conjunctivae are normal. Anicteric sclera. Ears nose, mouth and throat: Mallampati class 2. Normal posterior oropharynx. Uvula is midline. Neck: Trachea is midline. Visual inspection is normal. Respiratory: Mildly diminished lung sounds at the bases. No significant crackles. No increased work of breathing. Cardiovascular: Regular rate and rhythm. No murmurs. No edema. Gastrointestinal: Normal bowel sounds, soft, nontender and nondistended. No hepatosplenomegaly noted. Musculoskeletal: No cyanosis. Patient is able to move all extremities. Strength is 5 out of 5 in the upper and lower extremities. Skin: No rashes, warm dry and intact. Neurologic: Bilateral foot drop seen. Psychiatric: Alert and oriented x3 with a euthymic affect. Results & Data Results & Data Vital Signs (Past 12 Hours) Vital Signs Temp Pulse Resp BP Pulse Ox O2 Del Method O2 Flow Rate 03/07/23 08:00 Nasal Cannula 03/07/23 07:41 74 18 117/69 92 Room Air 03/06/23 23:03 36.7 C 70 18 107/66 94 Nasal Cannula 4 PG Care Time/CCT Total # of Minutes Spent Total Time Spent with Patient: Total time spent is greater than 50% in coordination of care (as documented) at patient's floor/unit and/or counseling patient: Coding Level of Care Code 26345 INT INP/OBS CARE MIN Diagnoses NYHA class 4 acute on chronic systolic heart failure I50.23 Hypoxia R09.02 Complex sleep apnea syndrome G47.31 Paroxysmal atrial fibrillation I48.0 Atrial fibrillation type: paroxysmal Centrilobular emphysema J43.2
[2023-03-07] MEDS: BUMETANIDE 2 MG in SYRINGE 0 ML IV SCH ×2 (12:57→17:45)
[2023-03-07] MEDS: PANTOprazole 40 MG in SYRINGE 0 ML IV SCH ×2 (12:57→20:27)
--- NOTE | 2023-03-07 13:02 | Cardiology Progress Note ---
Date of Service March 07, 2023 Assessment & Plan (1) Hypoxia: (2) Ischemic cardiomyopathy: (3) Atrial fibrillation: (4) Chronic systolic congestive heart failure: (5) Coronary artery disease: Plan 1. Hypoxia: It is hard to explain this degree of hypoxia as being due to c ongestive heart failure, he has minimal findings which would be unusual to have significant hypoxia without being in florid pulmonary edema. I suspect it is some other cause. 2. Ischemic cardiomyopathy: He has a longstanding cardiomyopathy, based on his echocardiograms (including one done this visit as a brief study) his ejection fraction has not really changed from about 30%. 3. Atrial fibrillation: He has a history of atrial fibrillation which has been paroxysmal and relatively infrequent historically, however it may be more persistent now. It is possible this has something to do with his symptoms although that by itself seems unlikely to cause hypoxia, even if it reduces his cardiac output it would have to be substantial in order to cause hypoxia. We can interrogate his device to see how much time he spends in atrial fibrillation and if it has been sustained recently (he was in it last time I saw him in the office and on presentation based on his ECG) we could consider cardioversion. That would require sedation which is potentially problematic not sure how much it would help him. His rate is controlled and he is appropriately biventricular paced. I will have his ICD interrogated in the morning and keep him n.p.o. in case we want to do that. 4. Congestive heart failure: He has some degree of chronic congestive heart failure but he certainly is not in pulmonary edema now and I suspect he has become dry over the last 2 to 3 days. I do not think his hypoxia is due to congestive heart failure, and less we think he has a low enough cardiac output to cause it but that does not seem likely. I do not generally use dobutamine, it could be tried to see if it makes a difference. If we truly need to make the determination we could consider right heart catheterization to document his hemodynamics and his cardiac output. 5. Coronary disease: He has coronary disease but this is unlikely to be actively involved in his presentation this admission. Admission and Anticipated Discharge Date Admission Date: February 23, 2023 Subjective Patient examined and chart reviewed. History obtained from the patient and his . Details are in prior records. In brief, he has a long history of systolic dysfunction and paroxysmal atrial fibrillation, in July 2022 his ejection fraction was 25 to 30% and he has had a biventricular ICD in place for 8 years and it has been working appropriately. He is pacing appropriately and when I last saw him about 3 months ago he was in atrial fibrillation although his symptoms did not correlate very well with his arrhythmia, which is relatively infrequent historically although on presentation he was in atrial fibrillation. He presented to the emergency room this visit on February 23, 2023 with what appeared to be pneumonia and sepsis he was admitted and treated. He has continued to have difficulty with oxygenation and an echocardiogram done February 25, 2023 shows global hypokinesis with an ejection fraction of 30 to 35% and felt to be similar to prior measurements. Recent studies including a chest x-ray several days ago shows small pleural effusions and what is felt to be pulmonary vascular congestion, however a chest CT on that day (March 04, 2023) was not highly suggestive of heart failure. His weight has been white stable since March 02, prior to that it was considerably lower and perhaps done with a different scale. Laboratory studies have shown a normal creatinine until to (although the last one done was March 04 until today) when his creatinine jumped from 0.87-1.91. BUN increased from 24-48. His potassium is very low today. At the time of my evaluation he is complaining of being very tired and weak, he has not been very active but has difficulty doing even minor activities. He is on oxygen and with discontinuation of oxygen or reduction in the amount (he is currently on 4 L/min) he has lower oxygen saturations. He does not have chest discomfort or palpitations. Physical Exam Physical Exam: Constitutional: Alert, cooperative and in mild respiratory distress. Pulmonary: Relatively clear to auscultation bilaterally but with diminished breath sounds. Cardiac: Regular rhythm with no murmur, gallop or rub. Abdomen: Soft, nontender with normal bowel sounds. Extremities: No edema. Skin: No rash, ecchymoses or petechiae. Results & Data Vital Signs (Past 12 Hours) Vital Signs Temp Pulse Pulse Resp BP Pulse Ox O2 Del Method 03/07/23 11:23 36.4 C L 67 18 104/64 97 Nasal Cannula 03/07/23 08:00 69 03/07/23 08:00 Nasal Cannula 03/07/23 07:41 74 18 117/69 92 Room Air O2 Flow Rate 03/07/23 11: 2 03/07/23 08:00 03/07/23 08:00 03/07/23 07:41 Laboratory Results Coagulation 03/07/23 Range/Units 06:03 PT 16.4 H (9.0-12.0) Seconds CBC 03/07/23 Range/Units 06:03 WBC 9.83 (4.8-10.8) K/ul RBC 4.62 L (4.70-6.10) M/uL Hgb 13.3 L (14.0-18.0) g/dl Hct 40.2 L (42.0-52.0) % Plt Count 324 (130-400) K/uL Comprehensive Metabolic Panel 03/07/23 Range/Units 06:03 Sodium 133 L (136-145) mmol/L Potassium 2.4 L* (3.5-5.1) mmol/L Chloride 96 L (98-107) mmol/L Carbon Dioxide 25 (21-32) mmol/L BUN 48 H (6-23) mg/dl Creatinine 1.91 H (0.6-1.4) mg/dl Glucose 104 H (70-99(Fasting)) mg/dl Calcium 8.7 (8.6-10.3) mg/dl Intake and Output 03/06/23 03/07/23 03/07/23 22:59 06:59 14:59 Intake Total 200 / 200 Output Total 850 / 1750 Balance -850 / -1390 200 / 200 Intake: IV 200 / 200 Potassium Chloride / Wtr 10 meq 200 / 200 In 100 ml @ 100 mls/hr IV Q1H [facility] Rx#:[id number] Output: Urine Amount (Catheter) 850 / 1750 Kingston/Indwelling 850 / 1750 Other: Weight 102.8 kg Diagnostic Findings Telemetry: Probably atrial fibrillation with ventricular pacing PG Care Time/CCT Total # of Minutes Spent Total Time Spent with Patient: Total time spent is greater than 50% in coordination of care (as documented) at patient's floor/unit and/or counseling patient: Coding Level of Care Code 21933 SUB INP/OBS CARE 3/50MIN Diagnoses Hypoxia R09.02 Ischemic cardiomyopathy I25.5 Paroxysmal atrial fibrillation I48.0 Atrial fibrillation type: paroxysmal Chronic systolic congestive heart failure I50.22 Coronary artery disease I25.10 (3) Atrial fibrillation Atrial fibrillation type: paroxysmal Qualified Code(s): I48.0 - Paroxysmal atrial fibrillation
--- NOTE | 2023-03-07 17:37 | Hospitalist Consultation ---
Date of Consultation March 06, 2023 Assessment & Plan (1) Dysphagia: Patient complains of having dysphagia and nausea intermittent with vomiting for the last few days -The patient has large hiatal hernia, CT of chest showed evidence of esophagitis -Currently on PPI twice daily, Carafate is added by GI, appreciate GI consult -The patient was able to tolerate solid food, complaining of dysphagia and pain with swallowing are both empirically started on Diflucan for treated - (2) Hypoxia: the patient admitted to the hospital with severe sepsis/pneumonia and hypoxia which improved, -Patient received IV fluid and Bumex was held when patient had nausea and vomiting -Again patient became hypoxic, started on Bumex, metolazone , but still remain hypoxic -Incentive spirometer, chest CT did not show any pulmonary infiltrate, showed bilateral pleural effusion, will consult with to see if the patient is a candidate for thoracentesis due to hypoxia -No wheezing on exam, hold warfarin for thoracentesis, INR trending down (3) Severe sepsis: - The patient should present to the hospital with pneumonia severe sepsis with septic shock now patient has improvement complete the course of treatment (4) Chronic systolic congestive heart failure: Heart failure reduced ejection fraction, CAD, ICD/pacer, paroxysmal Afib Echo 07/2022 stable, EF 25-30% with grade 1 diastolic dysfunction and diffuse hypokinesis with additional inferior wall akinesis, posterior wall akinesis. Last ICD interrogation 12/2022, no episodes of A-fib/flutter; 6 episodes of nonsustained SVT/PVCs up to 22 seconds. Pacing percentage less than 95% primary Route Service Manager evaluated the patient. Continue carvedilol, Entresto, Bumex Anticoagulated on Coumadin, hold Coumadin for possible thoracentesis Continue Crestor EKG paced, no acute ischemic findings. Clinically without chest pain. Suspect elevated troponin due to demand ischemia from sepsis. Echocardiogram Reviewed -hold aspirin (5) Presence of biventricular automatic cardioverter/defibrillator (AICD): Paced rhythm noted (6) Tremor: (7) Atrial fibrillation: The plan is as mentioned above (8) Atherogenic dyslipidemia: Currently on statin (9) Benign essential hypertension: Hypertension Fairly controlled with current regiment (10) Cervical radiculopathy: Hx of Idiopathic peripheral neuropathy, tremor, cervical radiculopathy Follows with neurology. Has a history of cervical radiculopathy with hand atrophy stable. Significant improvement on Mirapex as outpt. Continued. (11) BPH loc w urin obs/LUTS: - Kingston in place. Strict I&os. Patient requests that the [place] stay in place until a day prior to discharge normally straight caths himself (12) Acute kidney injury: Monitor BMP closely Avoid nephrotoxins Resolved MERT most likely prerenal due to sepsis (13) Bilateral foot-drop: The patient has bilateral foot drop and according to him because he was exposed to agent orange during the [place] War Plan Downgrade to telemetry bed, continue diuresis with metolazone and Bumex, pulmonary consult for possible thoracentesis due to hypoxia, appetite stimulant, add Diflucan for possible esophagitis due to Jenny, follow CBC BMP PT/INR tomorrow add appetite stimulant, add Ensure History of Present Illness Attending Physician: Perry Muller MD Allergies Allergy/AdvReac Type Severity Reaction Status Date / Time bee venom protein (honey bee) Allergy Severe SWELLING, Verified 01/05/23 12:58 SOB Penicillins Allergy Severe SWELLING, Verified 01/05/23 12:58 DIFFICULTY BREATHING lidocaine Allergy Mild RASH Verified 01/05/23 12:58 cefdinir AdvReac Severe Vomiting Verified 03/01/23 20:43 hydrocodone AdvReac Mild nausea Verified 01/05/23 12:58 oxycodone AdvReac Mild nausea-SLOW Verified 01/05/23 12:58 RELEASE IS OK Home Medications Medication Instructions Recorded Confirmed Type albuterol sulfate 90 mcg/actuation 2 puffs inhalation Q6H PRN 12/01/18 02/23/23 History aerosol inhaler Shortness Of Breath Or Wheezing bupropion HCl 100 mg tablet 100 mg PO BID 12/01/18 02/23/23 History docusate sodium 100 mg capsule 100 mg PO BID 12/01/18 02/23/23 History epinephrine 0.3 mg/0.3 mL 0.3 ml IM DIRECTED PRN 12/01/18 02/23/23 History injection, auto-injector Anaphylaxis finasteride 5 mg tablet 5 mg PO QAM 12/01/18 02/23/23 History aspirin 81 mg tablet,delayed 81 mg PO QAM 12/21/18 02/23/23 History release mometasone 50 mcg/actuation nasal 2 spray intranasal BID 12/21/18 02/23/23 History spray (Nasonex) oxycodone 10 mg tablet 10 mg PO Q12H 12/21/18 02/23/23 History sennosides 8.6 mg tablet 8.6 mg PO BID 12/21/18 02/23/23 History warfarin 5 mg tablet 2.5 mg PO . @TUES, THURS 12/21/18 02/23/23 History white petrolatum-mineral oil 56.8 1 applic ophthalmic (eye) HS 12/21/18 02/23/23 History %-42.5 % eye ointment (Refresh Lacri-Lube) metoclopramide HCl 10 mg tablet 10 mg PO Q8H 09/04/19 02/23/23 History cetirizine 10 mg capsule 10 mg PO HS 11/06/19 02/23/23 History potassium chloride 20 mEq 20 meq PO BID #200 tabs 01/05/20 02/23/23 Rx tablet,extended release bumetanide 1 mg tablet 1 mg PO QAM 02/29/20 02/23/23 History sacubitril 49 mg-valsartan 51 mg 1 tab PO BID 11/25/20 02/23/23 History tablet pantoprazole 40 mg tablet,delayed 80 mg PO .@NOON 03/10/21 02/23/23 History release carvedilol 25 mg tablet 25 mg PO BID #180 tabs 05/12/21 02/23/23 Rx rosuvastatin 10 mg tablet (Crestor) 10 mg PO QPM 12/03/21 02/23/23 History pramipexole 0.375 mg 0.375 mg PO QAM 12/02/22 02/23/23 History tablet,extended release 24 hr (Mirapex ER) tiotropium 2.5 mcg-olodaterol 2.5 2 puff inhalation QAM 12/02/22 02/23/23 History mcg/actuation mist for inhalation (Stiolto Respimat) lanolin-mineral oil-NaCl-w.pet 1 ea topical Q8H 02/23/23 02/23/23 History lotion nystatin 100,000 unit/gram topical 1 applic topical BID 02/23/23 02/23/23 History powder warfarin 5 mg tablet 5 mg PO . @ MN,WD,FR,ST,SN 02/23/23 02/23/23 History Patient History Medical History (Updated 03/07/23 @ 10:35 by Kike Garcia MD) Centrilobular emphysema Complex sleep apnea syndrome NYHA class 4 acute on chronic systolic heart failure History of kidney stones Presence of combination internal cardiac defibrillator (ICD) and pacemaker first placed 2010 @ [facility] replaced in 2014 & 2021 @ [facility]--biventricular [employer]. reports last check 11/25/22. Emphysema lung Legally blind Spasticity upper limbs Cervicogenic headache Atherogenic dyslipidemia Chronic back pain History of urinary self-catheterization self caths every other night History of DVT of lower extremity 2010 Macular degeneration Hearing deficit Depression Migraine CAD (coronary artery disease) s/p stent 2010 Myocardial Infarction 10/2010--follows with Dr. Abreu Atrial fibrillation on warfarin--follows with Dr. Abreu Pulmonary embolism 1992 and 2010 after heart attack--follows with Dr. Abreu Asthma inhaler prn Sleep apnea bipap Chronic systolic congestive heart failure EF 25-30% BPH loc w urin obs/LUTS Elevated PSA Ischemic cardiomyopathy Euvolemic at 11/23/22 cardio appt Balance problem Warfarin anticoagulation Surgical History S/P epidural steroid injection History of foot surgery plantar fasciitis History of open reduction and internal fixation (ORIF) procedure left foot--hardware removed History of prostate biopsy x3--precancerous, just monitoring for now History of prostate surgery 07/2016--[facility] prostate vaproization History of cystoscopy multiple History of colonoscopy with polypectomy History of esophagogastroduodenoscopy (EGD) History of right inguinal hernia repair x3 History of Khari fundoplication History of cholecystectomy History of tooth extraction History of eye surgery right--macular degeneration History of bilateral cataract extraction History of cardiac cath 10/2010 @ [facility]--1 stent placed Family History Son Family history of diabetes mellitus Other Family history non-contributory No family history of adverse response to anesthesia Social History Smoking Status: Former smoker Second Hand Exposure: Yes (father smoked); Do You Dip or Chew Tobacco: No; Hx Alcohol Use: No Hx Substance Use: No Preferred Language: [place] Communication Ability: Effective Cytologist Required: No Beliefs That Will Affect Care: None marital status: Current Living Situation: Spouse current occupational status: retired Feels Safe at Home: Yes Assistive Devices: Brace/Splint/Immobilizer, Cane, Special Shoe and Walker Physical Exam Physical Exam: General: Awake, conversant Heart: S1, S2/regular rate and rhythm, no murmur rubs or gallops Lungs: Clear to auscultation bilaterally. Normal effort Abdomen: Soft/nontender/nondistended. No hepatosplenomegaly Extremities: No clubbing/cyanosis. Trace bilateral edema Behavior: Appropriate, cooperative Constitutional: WD/WN, vitals as above Respiratory: normal respiratory effort, lungs clear to auscultation Cardiovascular: RRR, no murmur, no edema Gastrointestinal (Abdomen): normal bowel sounds, soft, nontender, no hepatosplenomegaly Skin: no rashes, warm and dry Psychiatric: A+Ox3, euthymic affect Orientation: alert and oriented x 3 Results & Data Results & Data Vital Signs (Past 12 Hours) Vital Signs Temp Pulse Pulse Resp BP Pulse Ox O2 Del Method 03/06/23 15:39 74 03/06/23 15:17 72 100/57 L 03/06/23 15:04 36.8 C 120 H 18 81/48 L 98 Nasal Cannula 03/06/23 12:26 Nasal Cannula 03/06/23 10:59 36.6 C 77 19 91/56 L 92 Nasal Cannula 03/06/23 08:16 62 03/06/23 07:36 36.4 C L 65 20 103/62 90 Nasal Cannula O2 Flow Rate 03/06/23 15:39 03/06/23 15:17 03/06/23 15:04 4 03/06/23 12:26 4 03/06/23 10:59 4 03/06/23 08:16 03/06/23 07:36 4 PG Care Time/CCT Total # of Minutes Spent Total Time Spent with Patient: Total time spent is greater than 50% in coordination of care (as documented) at patient's floor/unit and/or counseling patient: Coding Diagnoses Dysphagia R13.10 Hypoxia R09.02 Severe sepsis A41.9; R65.20 Chronic systolic congestive heart failure I50.22 Presence of biventricular automatic cardioverter/defibrillator (AICD) Z95.810 Tremor R25.1 Paroxysmal atrial fibrillation I48.0 Atrial fibrillation type: paroxysmal Atherogenic dyslipidemia E78.5 Benign essential hypertension I10 Cervical radiculopathy M54.12 BPH loc w urin obs/LUTS N40.1 Acute kidney injury N17.9 Bilateral foot-drop M21.371; M21.372 (7) Atrial fibrillation Atrial fibrillation type: paroxysmal Qualified Code(s): I48.0 - Paroxysmal atrial fibrillation
--- NOTE | 2023-03-07 17:42 | Hospitalist Progress Note ---
Date of Service March 07, 2023 Assessment & Plan (1) Dysphagia: (2) Hypoxia: (3) Severe sepsis: (4) Chronic systolic congestive heart failure: (5) Presence of biventricular automatic cardioverter/defibrillator (AICD): (6) Tremor: (7) Atrial fibrillation: (8) Atherogenic dyslipidemia: (9) Benign essential hypertension: (10) Cervical radiculopathy: (11) BPH loc w urin obs/LUTS: (12) Acute kidney injury: (13) Bilateral foot-drop: Plan (1) Dysphagia: Plan: Patient complains of having dysphagia and nausea intermittent with vomiting for the last few days -The patient has large hiatal hernia, CT of chest showed evidence of esophagitis -Currently on PPI twice daily, Carafate is added by GI, appreciate GI consult -The patient was able to tolerate solid food, complaining of dysphagia and pain with swallowing are both empirically started on Diflucan for potential Jenny infection, today patient said he feels significantly better, would continue Diflucan for 3 days - (2) Hypoxia: Plan: the patient admitted to the hospital with severe sepsis/pneumonia and hypoxia which all were improved, However patient is on IV fluid after he had nausea and vomiting and since then has been , started on Bumex, metolazone , but still remain hypoxic, chest CT did not show any evidence of infiltrate or evidence of congestion, showed bilateral small pleural effusion, discussed with pulmonology there are 2 small for thoracentesis -No wheezing on exam, warfarin was held for thoracentesis, will resume (3) Severe sepsis: Plan: - The patient should present to the hospital with pneumonia severe sepsis with septic shock now patient has improvement complete the course of treatment (4) Chronic systolic congestive heart failure: Plan: Heart failure reduced ejection fraction, CAD, ICD/pacer, paroxysmal Afib Echo 07/2022 stable, EF 25-30% with grade 1 diastolic dysfunction and diffuse hypokinesis with additional inferior wall akinesis, posterior wall akinesis. Last ICD interrogation 12/2022, no episodes of A-fib/flutter; 6 episodes of nonsustained SVT/PVCs up to 22 seconds. Pacing percentage less than 95% primary [employer] evaluated the patient. Continue carvedilol, Entresto, Bumex Anticoagulated on Coumadin, hold Coumadin for possible thoracentesis Continue Crestor EKG paced, no acute ischemic findings. Clinically without chest pain. Suspect elevated troponin due to demand ischemia from sepsis. Echocardiogram Reviewed -Resume aspirin -Follow cardiology recommendation (5) Presence of biventricular automatic cardioverter/defibrillator (AICD): Plan: Paced rhythm noted (6) Tremor: (7) Atrial fibrillation: Plan: The plan is as mentioned above (8) Atherogenic dyslipidemia: Plan: Currently on statin (9) Benign essential hypertension: Plan: Hypertension Fairly controlled with current regiment (10) Cervical radiculopathy: Plan: Hx of Idiopathic peripheral neuropathy, tremor, cervical radiculopathy Follows with neurology. Has a history of cervical radiculopathy with hand atrophy stable. Significant improvement on Mirapex as outpt. Continued. (11) BPH loc w urin obs/LUTS: Plan: - [place] in place. Strict I&os. Patient requests that the [place] stay in place until a day prior to discharge normally straight caths himself (12) Acute kidney injury: Plan: Monitor BMP closely Avoid nephrotoxins Resolved MERT most likely prerenal due to sepsis (13) Bilateral foot-drop: Plan: The patient has bilateral foot drop and according to him because he was exposed to agent orange during the [place] War Plan Downgrade to telemetry bed, continue diuresis with metolazone and Bumex, pulmonary consult for possible thoracentesis due to hypoxia, appetite stimulant, add Diflucan for possible esophagitis due to Jenny, follow CBC BMP PT/INR tomorrow add appetite stimulant, add Ensure Admission and Anticipated Discharge Date Admission Date: February 23, 2023 Physical Exam Constitutional: WD/WN, vitals as above Respiratory: normal respiratory effort, lungs clear to auscultation Cardiovascular: RRR, no murmur, no edema Gastrointestinal (Abdomen): normal bowel sounds, soft, nontender, no hepatosplenomegaly Skin: no rashes, warm and dry Psychiatric: A+Ox3, euthymic affect Orientation: alert and oriented x 3 Results & Data Results & Data Vital Signs (Past 12 Hours) Vital Signs Temp Pulse Pulse Resp BP Pulse Ox O2 Del Method 03/07/23 16:36 81 03/07/23 16:00 Nasal Cannula 03/07/23 15:36 36.6 C 83 18 91/61 L 93 Nasal Cannula 11/12/23 11:23 36.4 C L 67 18 104/64 97 Nasal Cannula 03/07/23 08:00 69 03/07/23 08:00 Nasal Cannula 03/07/23 07:41 74 18 117/69 92 Room Air O2 Flow Rate 03/07/23 16:36 03/07/23 16:00 03/07/23 15:36 2 03/07/23 11:23 2 03/07/23 08:00 03/07/23 08:00 03/07/23 07:41 PG Care Time/CCT Total # of Minutes Spent Total Time Spent with Patient: Total time spent is greater than 50% in coordination of care (as documented) at patient's floor/unit and/or counseling patient: Coding Level of Care Code 37013 SUB INP/OBS CARE 3/50MIN Diagnoses Dysphagia R13.10 Hypoxia R09.02 Severe sepsis A41.9; R65.20 Chronic systolic congestive heart failure I50.22 Presence of biventricular automatic cardioverter/defibrillator (AICD) Z95.810 Tremor R25.1 Paroxysmal atrial fibrillation I48.0 Atrial fibrillation type: paroxysmal Atherogenic dyslipidemia E78.5 Benign essential hypertension I10 Cervical radiculopathy M54.12 BPH loc w urin obs/LUTS N40.1 Acute kidney injury N17.9 Bilateral foot-drop M21.371; M21.372 (7) Atrial fibrillation Atrial fibrillation type: paroxysmal Qualified Code(s): I48.0 - Paroxysmal atrial fibrillation
[2023-03-07] MEDS: buPROPion HCl 100 MG TABLET PO SCH (20:27)
[2023-03-07] MEDS: FLUCONAZOLE 100 MG TAB PO SCH (20:34)
[2023-03-07] MEDS: ROSUVASTATIN CALCIUM 10 MG TAB PO SCH (20:34)
[2023-03-08 07:30] LABS: BUN Creatinine Ratio 35.3 (10-20); Calcium 8.5 mg/dl (8.6-10.3); Creatinine Clr Calc Pharmacy 47.2 ml/min; Est GFR (African American) 49.7 ml/min; Est GFR (Non-African American) 42.9 ml/min; Potassium 2.8 mmol/L (3.5-5.1)
[2023-03-08 07:35] LABS: INR 1.2 (0.9-1.1); Prothrombin Time 12.5 Seconds (9.0-12.0)
[2023-03-08] MEDS: carvediloL 25 MG TAB PO SCH ×2 (08:06→21:11)
[2023-03-08] MEDS: buPROPion HCl 100 MG TABLET PO SCH ×2 (10:17→21:10)
[2023-03-08] MEDS: DOCUSATE SODIUM 100 MG CAP PO SCH ×2 (10:17→21:10)
[2023-03-08] MEDS: oxyCODONE HCL 10 MG TABCR (OxyCONTIN) PO SCH ×2 (10:17→21:09)
[2023-03-08] MEDS: PANTOprazole 40 MG in SYRINGE 0 ML IV SCH ×2 (10:17→21:10)
[2023-03-08] MEDS: BUMETANIDE 2 MG in SYRINGE 0 ML IV SCH ×2 (10:17→16:23)
[2023-03-08] MEDS: SUCRALFATE 1 GM/10 ML UDC PO SCH ×4 (10:17→21:09)
[2023-03-08] MEDS: ASPIRIN 81 MG ECTAB PO SCH (10:18)
[2023-03-08] MEDS: metOLazone 5 MG TABLET PO SCH (10:18)
[2023-03-08] MEDS: VALSARTAN/SACUBITRIL 51/49 MG TAB PO SCH ×2 (10:18→21:11)
[2023-03-08] MEDS: SENNA 8.6 MG TAB PO SCH ×2 (10:18→21:09)
[2023-03-08] MEDS: METOCLOPRAMIDE HCL 10 MG TABLET PO SCH ×4 (10:18→21:10)
[2023-03-08] MEDS: FINASTERIDE 5 MG TAB PO SCH (10:19)
[2023-03-08] MEDS: UMECLIDINIUM/VILANTEROL 62.5/25MCG 7 PUFFS/INHALER INH SCH (10:20)
[2023-03-08] MEDS: LACTULOSE SYRUP 30 GM/45 ML UDP PO SCH ×4 (10:20→21:11)
[2023-03-08] MEDS: droNABinol 2.5 MG CAP PO SCH ×3 (10:46→16:21)
--- NOTE | 2023-03-08 10:56 | Cardiology Progress Note ---
Date of Service March 08, 2023 Assessment & Plan (1) Hypoxia: (2) Ischemic cardiomyopathy: (3) Atrial fibrillation: (4) Chronic systolic congestive heart failure: (5) Coronary artery disease: Plan 1. Hypoxia: It is hard to explain this degree of hypoxia as being due to c ongestive heart failure, he has minimal findings which would be unusual to have significant hypoxia without being in florid pulmonary edema. I suspect it is some other cause. 2. Ischemic cardiomyopathy: He has a longstanding cardiomyopathy, based on his echocardiograms (including one done this visit as a brief study) his ejection fraction has not really changed from about 30%. 3. Atrial fibrillation: He has a history of atrial fibrillation which has been paroxysmal and relatively infrequent historically, device interrogation today shows only 14 hours since last interrogation. It is possible this has something to do with his symptoms of sweating although that does not seem to correlate well, it should not cause hypoxia, and he is not in atrial fibrillation for the most part this admission. There is no role for cardioversion. 4. Congestive heart failure: He has some degree of chronic congestive heart failure but he certainly is not in pulmonary edema now and I suspect he has bec ome dry over the last several days. I do not think his hypoxia is due to congestive heart failure, unless we think he has a low enough cardiac output to cause it but that does not seem likely. Pacemaker interrogation includes an OptiVol reading which was increased on admission (but pneumonia can increase that reading as well) and then it dropped very quickly and is not elevated now over the past few days. If we truly need to make a determination of congestive heart failure we could consider right heart catheterization to document his hemodynamics and his cardiac output, but I would be hesitant. 5. Coronary disease: He has coronary disease but this is unlikely to be actively involved in his presentation this admission. Admission and Anticipated Discharge Date Admission Date: February 23, 2023 Subjective He is still feeling weak, he is still having some dyspnea on exertion but has minimal activity. No sensation of palpitations and no chest discomfort. His reiterates that he breaks out in a sweat when he is in atrial fibrillation and he was doing that when he came in, however on pacer interrogation he has minimal atrial fibrillation. Physical Exam Physical Exam: Constitutional: Alert, cooperative and in mild respiratory distress. Pulmonary: Relatively clear to auscultation bilaterally but with diminished breath sounds. Cardiac: Regular rhythm with no murmur, gallop or rub. Abdomen: Soft, nontender with normal bowel sounds. Extremities: No edema. Skin: No rash, ecchymoses or petechiae. Results & Data Vital Signs (Past 12 Hours) Vital Signs Temp Pulse Resp BP Pulse Ox O2 Del Method O2 Flow Rate 03/08/23 07:43 36.5 C 61 18 97/59 L 96 Nasal Cannula 4 03/08/23 03:20 36.4 C L 74 18 99/61 L 95 Nasal Cannula 4 03/07/23 23:11 36.0 C L 89 18 108/65 95 Nasal Cannula 4 Laboratory Results Coagulation 03/08/23 Range/Units 06:45 PT 12.5 H (9.0-12.0) Seconds Comprehensive Metabolic Panel 03/07/23 03/08/23 Range/Units 19:11 06:45 Sodium 131 L (136-145) mmol/L Potassium 3.3 L D 2.8 L (3.5-5.1) mmol/L Chloride 97 L (98-107) mmol/L Carbon Dioxide 24 (21-32) mmol/L BUN 54 H (6-23) mg/dl Creatinine 1.53 H D (0.6-1.4) mg/dl Glucose 115 H (70-99(Fasting)) mg/dl Calcium 8.5 L (8.6-10.3) mg/dl Intake and Output 03/07/23 03/08/23 03/08/23 22:59 06:59 14:59 Intake Total 300 / 1160 Output Total 1300 / 2900 600 / 2900 Balance -1000 / -1740 -600 / -1740 Intake: IV 100 / 510 Potassium Chloride / Wtr 10 meq 100 / 510 In 100 ml @ 100 mls/hr IV Q1H [facility] Rx#:[id number] Oral 200 / 650 Output: Urine Amount (Catheter) 1300 / 2900 600 / 2900 [place]/Indwelling 1300 / 2900 600 / 2900 Other: Other Intake Source npo Weight 96.5 kg Weight Measurement Method Built in [facility] Diagnostic Findings Telemetry: Ventricular and AV pacing throughout. Pacemaker interrogation: His pacemaker was interrogated today and it is working very well, he has had minimal atrial fibrillation (a total of 14 hours since last interrogation, he is not in atrial fibrillation currently). When he is in atrial fibrillation he is pacing all of the time with an appropriate heart rate distribution but probably is not causing symptoms. PG Care Time/CCT Total # of Minutes Spent Total Time Spent with Patient: Total time spent is greater than 50% in coordination of care (as documented) at patient's floor/unit and/or counseling patient: Coding Level of Care Code 82715 SUB INP/OBS CARE 2/35MIN Diagnoses Hypoxia R09.02 Ischemic cardiomyopathy I25.5 Paroxysmal atrial fibrillation I48.0 Atrial fibrillation type: paroxysmal Chronic systolic congestive heart failure I50.22 Coronary artery disease I25.10 CPT Codes Implantable Defib Multi lead programming - [id number] ([id number]) (3) Atrial fibrillation Atrial fibrillation type: paroxysmal Qualified Code(s): I48.0 - Paroxysmal atrial fibrillation
[2023-03-08] MEDS: WARFARIN SOD 5 MG TAB PO SCH (16:22)
[2023-03-08] MEDS ORDERED: POTASSIUM CHLORIDE CRTAB 20 MEQ TABCR PO STA (20:24)
[2023-03-08] MEDS: FLUCONAZOLE 100 MG TAB PO SCH (21:09)
[2023-03-08] MEDS: ROSUVASTATIN CALCIUM 10 MG TAB PO SCH (21:10)
[2023-03-08] MEDS: POTASSIUM CHLORIDE / WTR 10 MEQ/100 ML PLCT IV SCH ×2 (21:25→23:10)
[2023-03-09] MEDS: POTASSIUM CHLORIDE / WTR 10 MEQ/100 ML PLCT IV SCH ×2 (00:25→01:28)
[2023-03-09] MEDS: METOCLOPRAMIDE HCL 10 MG TABLET PO SCH (08:41)
[2023-03-09] MEDS: ASPIRIN 81 MG ECTAB PO SCH (08:42)
[2023-03-09] MEDS: metOLazone 5 MG TABLET PO SCH (08:42)
[2023-03-09] MEDS: VALSARTAN/SACUBITRIL 51/49 MG TAB PO SCH (08:42)
[2023-03-09] MEDS: SENNA 8.6 MG TAB PO SCH (08:42)
[2023-03-09] MEDS: FINASTERIDE 5 MG TAB PO SCH (08:43)
[2023-03-09] MEDS: carvediloL 25 MG TAB PO SCH (08:43)
[2023-03-09] MEDS: DOCUSATE SODIUM 100 MG CAP PO SCH (08:43)
[2023-03-09] MEDS: buPROPion HCl 100 MG TABLET PO SCH (08:44)
[2023-03-09] MEDS: PANTOprazole 40 MG in SYRINGE 0 ML IV SCH (08:44)
[2023-03-09] MEDS: LACTULOSE SYRUP 30 GM/45 ML UDP PO SCH (08:44)
[2023-03-09] MEDS: BUMETANIDE 2 MG in SYRINGE 0 ML IV SCH (08:44)
[2023-03-09] MEDS: SUCRALFATE 1 GM/10 ML UDC PO SCH (08:45)
[2023-03-09] MEDS: droNABinol 2.5 MG CAP PO SCH (09:02)
[2023-03-09] MEDS: oxyCODONE HCL 10 MG TABCR (OxyCONTIN) PO SCH (09:02)
[2023-03-09] MEDS: UMECLIDINIUM/VILANTEROL 62.5/25MCG 7 PUFFS/INHALER INH SCH (09:06)
--- NOTE | 2023-03-09 18:49 | Discharge Summary ---
Date of Service March 09, 2023 Admission HPI Per Admitting Provider Royce is a 78-year-old male with a past medical history of CAD and heart failure with reduced ejection fraction w/ ICD-pacemaker, emphysema, BPH with LUTS, A- fib, hyperlipidemia, asthma who was recently seen 02/04/2023 and diagnosed with diverticulitis without abscess/perforation was discharged home on Cipro/Flagyl who presents to the ER 02/23 with hypotension, fever, tachypnea, hypoxic respiratory failure on nonrebreather with severe sepsis and a lactate of 8.7. BNP is 450 with no baseline for comparison; patient is Royce reports that he took his antibiotics for his diverticulitis as directed and felt much better. He has been well since then until approximately 1-2 days ago when he developed fatigue, weakness, and progressive shortness of breath. He has had a nonproductive cough. His abdomen has not been painful to him. He has not had dysuria. He was peeing normally up until this morning, and now is peeing less than normal. He denies chest pain, chest pressure. No lightheadedness/dizziness/syncope, but felt very weak on his feet and could not stand which is what prompted coming to the ER. He did take all of his medications as directed this morning, he has a history of 1 stent and is fo llowing with Dr. Negron for CAD. He is concerned whether this could be due to his heart, he is febrile and skin is moist at time of assessment. He reports his shortness of breath is persistent and not worsened by laying flat. His legs are dry and are not swollen currently, he did take his diuretic this morning. Medical History: Reviewed Medications: Reviewed Surgical History: Reviewed Family history: Reviewed Allergies: Reviewed Social History: Reviewed Code Status: Full Code Principal Diagnosis acute on chronic systolic heart failure Discharge Exam pt is resting with tremors cardiac is distant lungs are clear but diminshed at the bases Discharge Data Allergies Allergy/AdvReac Type Severity Reaction Status Date / Time bee venom protein (honey bee) Allergy Severe SWELLING, Verified 01/05/23 12:58 SOB Penicillins Allergy Severe SWELLING, Verified 01/05/23 12:58 DIFFICULTY BREATHING lidocaine Allergy Mild RASH Verified 01/05/23 12:58 cefdinir AdvReac Severe Vomiting Verified 03/01/23 20:43 hydrocodone AdvReac Mild nausea Verified 01/05/23 12:58 oxycodone AdvReac Mild nausea-SLOW Verified 01/05/23 12:58 RELEASE IS OK Consultations 02/23/23 11:54 ED Decision to Admit Stat 02/23/23 14:11 Consult Regulatory Lead Routine 02/25/23 07:49 Consult Cardiology Routine 03/03/23 18:50 Consult Gastroenterology Routine 03/06/23 20:36 Consult Pulmonology Routine Ordered Studies 02/23/23 10:24 CT abd pelvis wo con Stat CT chest diagnostic wo con Stat 03/01/23 10:08 CT Abd and Pelvis [CT abd pelvis wo con] Stat 03/04/23 CT chest diagnostic wo con Routine 03/07/23 09:39 US point of care ultrasound Urgent Hospital Course (1) Chronic systolic congestive heart failure: acute on chronic systolic heart failure with respiratory failure and hypoxia increase bumex to 2 mg daily and added metolazone 10 mg daily Heart failure reduced ejection fraction, CAD, ICD/pacer, paroxysmal Afib Echo 07/2022 stable, EF 25-30% with grade 1 diastolic dysfunction and diffuse h ypokinesis with additional inferior wall akinesis, posterior wall akinesis. Last ICD interrogation 12/2022, no episodes of A-fib/flutter; 6 episodes of nonsustained SVT/PVCs up to 22 seconds. Pacing percentage less than 95% primary Adhesive Primer evaluated the patient. Continue carvedilol, Entresto, Bumex Anticoagulated on Coumadin, hold Coumadin for possible thoracentesis Continue Crestor (2) Severe sepsis: sepsis ruled out (3) Cervical radiculopathy: Hx of Idiopathic peripheral neuropathy, tremor, cervical radiculopathy Follows with neurology. Has a history of cervical radiculopathy with hand atrophy stable. Tremors Significant improvement on Mirapex as outpt. Continued. Bilateral foot-drop: The patient has bilateral foot drop and according to him because he was exposed to agent orange during the [place] War (4) BPH loc w urin obs/LUTS: (5) Acute kidney injury: resolved Total Time Total Time Spent Total Time Spent (In Minutes): it required greater than 30 minutes to prepare this patient for discharge Discharge Plan Discharge Items Patient Disposition: Transfer Longterm Fac Reason For Visit: SEVERE SEPSIS Discharge Diagnosis: acute on chronic systolic heart failure Activity: Per Instructions section Activity Comment: pre PT/OT Non-emergency contact: Primary Care Provider and Adhesive Primer Call non-emergency contact if: your symptoms worsen Follow-up/Referrals: Tramaine Peterson MD [Primary Care Provider] - Diet: Low Sodium (2gm) Raheltl Attending Provider Instructions: Call 911 and go to the Emergency Room if: * You have tightness or pain in your chest that does not go away with rest or Nitroglycerin * You are very short of breath even with rest Call your doctor if any of the following symptoms or problems start or get worse: * Shortness of breath or difficulty breathing * Wake up at night short of breath * Chest pain * Cough * Swelling of your hands, fee, or legs * More fatigued or tired with your normal activity * Palpitations - sudden fast heart beats WEIGHT * Weigh yourself every morning after using the bathroom. * Use the same scale. * Wear the same amount of clothing. * Write your weight down on your chart. * Call your doctor if you gain more than 2-3 pounds in 1-2 days. MEDICATIONS * Use this discharge instruction sheet for instructions. * Take your medications at the time your doctor ordered. * Do not skip a dose of your medicines. * If you miss a dose of medicine, take as soon as possible, but DO NOT DOUBLE A DOSE. * Read your medicine information when you get home. * Know all of the side effects of your medicine. * Call your doctor's office if you have any side effects. * Be sure all of your doctors know what medicine and herbs you take (including cold, flu, and herbal medicine). * Pain Medicine: If you do not get relief from your pain, please call your doctor for help. Take the following with you to your follow-up doctor appointments: * Weight Chart * Medication List * List of questions Do not drink excessive alcohol, beer or wine. Addtl [employer] Consultant Provider Instructions: Monitor PT INR Medication Instructions: * Warfarin is a medicine prescribed to prevent blood clots * Warfarin will thin your blood and help prevent new clots * Take your medications exactly as directed * Never skip a dose. Never take a double dose. If you miss a dose, take it as soon as you remember * It is important for your doctor to monitor your prothrombin time (PT). This is a lab test * Keep your appointment for lab tests Risk of Adverse Drug Reactions and Interactions: * Warfarin increases your risk of bleeding * The food you eat and other medications you take can affect how Warfarin works in your body * Ask your doctor about daily aspirin therapy * It is very important to talk with your doctor about all of the other medicines, antibiotics, vitamins or herbal products that you are taking * All of your medication must be approved by your doctor, including new medicines, as well as medicines you have taken before you started taking Warfarin Diet: * In order for Warfarin to work properly, it is important to keep your intake of Vitamin K as consistent as possible * You should avoid any sudden change in Vitamin K intake * Report any significant changes in your diet or weight to your doctor Call your Primary Care doctor if you experience any of the following: * Swelling or Pain in your leg * Sudden, continuous pain deep in a muscle * Pain that worsens when you are active or when you stand still for a long time * Chest Pain * Sudden Shortness of Breath * Rapid or pounding heart beat * Fainting * Dizziness * Cough with blood or bloody sputum * Sweating more than normal * Bruises * Heavy or uncontrolled bleeding * Blood in your urine, stool or vomit * Black or tarry stools Caring for Your Self at Home: * Avoid sitting, standing or lying down for long periods without moving your legs and feet * When traveling by car, stop to get out and move around at least once every 3 hours * On long airplane, train or bus rides, get up and move around when possible * If you can't get up, wiggle your toes and tighten your calves to keep your blood moving Follow Up: It is important for you to keep your follow up appointments with your medical provider. Pending Studies at Discharge: No Stand-Alone Forms: [facility] Skilled Items Patient informed of condition?: Yes DNR: No Discharge Level of Care: Skilled Communicable Disease: No Discharge Prognosis: Stable Lines: None Urinary Catheter: No Medications and DC Order Prescriptions: New metolazone 5 mg Tablet 10 mg PO DAILY Qty: 30 0RF sucralfate 100 mg/mL Suspension 1 g PO QID Qty: 28 0RF bisacodyl 10 mg Suppository 10 mg NH DAILY PRN (Reason: constipation) Qty: 12 0RF fluconazole [Diflucan] 100 mg Tablet 200 mg PO HS Qty: 1 0RF Continued potassium chloride 20 mEq tablet extended release 20 meq PO BID Qty: 200 3RF rosuvastatin [Crestor] 10 mg tablet 10 mg PO QPM sacubitril-valsartan 49-51 mg tablet 1 tab PO BID carvedilol 25 mg tablet 25 mg PO BID Qty: 180 3RF Rx Instructions: must administer with a meal/food bupropion HCl 100 mg tablet 100 mg PO BID Rx Instructions: TAKE THIS MEDICATION EVERY MORNING AND AT NOON albuterol sulfate 90 mcg/actuation HFA aerosol inhaler 2 puffs inhalation Q6H PRN (Reason: Shortness Of Breath Or Wheezing) docusate sodium 100 mg capsule 100 mg PO BID finasteride 5 mg tablet 5 mg PO QAM pantoprazole 40 mg tablet,delayed release (DR/EC) 80 mg PO .@NOON aspirin 81 mg Tablet,Delayed Release (Dr/Ec) 81 mg PO QAM warfarin 5 mg Tablet 2.5 mg PO . @ Protocol: Dose Management Condition: Wednesday (Week One) Dose/Route: 2.5 mg Instruction: 0.5 x 5 mg tablets Condition: Wednesday Dose/Route: 2.5 mg Instruction: 0.5 x 5 mg tablets Condition: Wednesday Dose/Route: 5 mg Instruction: 1 x 5 mg tablet Condition: Wednesday Dose/Route: 5 mg Instruction: 1 x 5 mg tablet Condition: Dose/Route: 2.5 mg Instruction: 0.5 x 5 mg tablets Condition: Wednesday Dose/Route: 5 mg Instruction: 1 x 5 mg tablet Condition: Wednesday Dose/Route: 5 mg Instruction: 1 x 5 mg tablet Condition: Wednesday (Week Two) Dose/Route: 5 mg Instruction: 1 x 5 mg tablet Condition: Wednesday Dose/Route: 5 mg Instruction: 1 x 5 mg tablet Condition: Wednesday Dose/Route: 2.5 mg Instruction: 0.5 x 5 mg tablets Condition: Wednesday Dose/Route: 5 mg Instruction: 1 x 5 mg tablet Condition: Dose/Route: 2.5 mg Instruction: 0.5 x 5 mg tablets Condition: Wednesday Dose/Route: 5 mg Instruction: 1 x 5 mg tablet Condition: Wednesday Dose/Route: 5 mg Instruction: 1 x 5 mg tablet Protocol Text: Adjustment Start Date: Kim 10/24/23 INR Value: 1.7 INR Date: 02/16/23 Recheck Date: 03/02/23 Rx Instructions: TAKE HALF A TABLET (2.5 MG) EVERY WEDNESDAY AND WEDNESDAY OR OTHERWISE DIRECTED TO TAKE BY ANTICOAGULATION CLINIC/ mometasone [Nasonex] 50 mcg/actuation [place],Non-Aerosol 2 spray INTRANASAL BID oxycodone 10 mg Tablet 10 mg PO Q12H Patient Comments: takes 6am and 6pm sennosides 8.6 mg Tablet 8.6 mg PO BID Refresh Lacri-Lube 56.8-42.5 % Ointment 1 applic OPHTHALMIC (EYE) HS Rx Instructions: 1/8th INCH IN EACH EYE metoclopramide HCl 10 mg tablet 10 mg PO Q8H pramipexole [Mirapex ER] 0.375 mg tablet extended release 24 hr 0.375 mg PO QAM Stiolto Respimat 2.5-2.5 mcg/actuation Mist 2 puff INHALATION QAM nystatin 100,000 unit/gram Powder 1 applic TOPICAL BID lanolin-mineral oil-NaCl-w.pet Lotion 1 ea TOPICAL Q8H warfarin 5 mg tablet 5 mg PO . @ MN,WD,FR,ST,SN Protocol: Dose Management Condition: Wednesday (Week One) Dose/Route: 2.5 mg Instruction: 0.5 x 5 mg tablets Condition: Wednesday Dose/Route: 2.5 mg Instruction: 0.5 x 5 mg tablets Condition: Wednesday Dose/Route: 5 mg Instruction: 1 x 5 mg tablet Condition: Wednesday Dose/Route: 5 mg Instruction: 1 x 5 mg tablet Condition: Dose/Route: 2.5 mg Instruction: 0.5 x 5 mg tablets Condition: Wednesday Dose/Route: 5 mg Instruction: 1 x 5 mg tablet Condition: Wednesday Dose/Route: 5 mg Instruction: 1 x 5 mg tablet Condition: Wednesday (Week Two) Dose/Route: 5 mg Instruction: 1 x 5 mg tablet Condition: Wednesday Dose/Route: 5 mg Instruction: 1 x 5 mg tablet Condition: Wednesday Dose/Route: 2.5 mg Instruction: 0.5 x 5 mg tablets Condition: Wednesday Dose/Route: 5 mg Instruction: 1 x 5 mg tablet Condition: Dose/Route: 2.5 mg Instruction: 0.5 x 5 mg tablets Condition: Wednesday Dose/Route: 5 mg Instruction: 1 x 5 mg tablet Condition: Wednesday Dose/Route: 5 mg Instruction: 1 x 5 mg tablet Protocol Text: Adjustment Start Date: Wednesday02/16/23 INR Value: 1.7 INR Date: 02/16/23 Recheck Date: 03/02/23 Rx Instructions: Take 1 tablet daily, except 0.5 tablet on Wednesday, and Wednesday. Changed bumetanide 1 mg tablet 2 mg PO QAM Qty: 60 0RF Discontinued cetirizine 10 mg capsule 10 mg PO HS epinephrine 0.3 mg/0.3 mL auto-injector 0.3 ml IM DIRECTED PRN (Reason: Anaphylaxis) Rx Instructions: ADMINISTER ONCE Discharge Orders: Discharge Order (Routine); Ordered 03/09/23 Ordered By: Carson Fierro Admission Data Admit Date/Time: 02/23/23 12:25 Attending Provider: Carson Fierro Admit Provider: Nathan Iniguez Primary Care Provider: Tramaine Peterson Other Providers: King Marquez [employer]; Nathan Iniguez; Omar Snider James A.; Joanne Byrd; Umair Mi; Larisa Haile; Stephania Cruz; Heidy Young; Shanda Ayala; David Masters; Orestes Kaufman; Ancelmo Small; April Mahoney; Charlene Dobson; Jone Curiel; Brenda Butts; Stefania Medina; Becka Schmidt; Sharon Victoria; Rashaad You; Anthony Bhakta; Ezekiel Shepherd; Ani Power; Rachid Isbell Jr; Kike Garcia Other Interventions: Discharge Summary Assessment (RN) Last Done: 03/09/23 11:27 Coding Level of Care Code 83903 INP/OBS DISCH >30 MIN Diagnoses Chronic systolic congestive heart failure I50.22 Severe sepsis A41.9; R65.20 Cervical radiculopathy M54.12 BPH loc w urin obs/LUTS N40.1 Acute kidney injury N17.9
--- NOTE | 2023-03-12 06:34 | Coding Query ---
SEPSIS To promote full compliance with coding requirements relating to patient care, physician participation is requested in all cases of remote inpatient coder uncertainty. Please assist us with the question(s) below: . The medical record reflects the following clinical findings: * 02/23 ED record: fever,tachycardia, hypoxic respiratory failure, severe sepsis with lactate of 8,7, MERT * 02/23 Critical care consult note: Severe sepsis requiring vasocactive medications, Pneumonia * 02/24 Critical care note: acute/chronic respiratory failure due to pneumonia, severe sepsis. * Hospitalist progress notes document Sepsis Please check below, if applicable , the diagnosis that was treated during this Inpatient stay & the Present on Admission indicator. Thanks for your help! [facility] ____ ( )Bacteremia (Nonspecific laboratory finding of bacteria in the blood) Specify Organism ( ) Present on Admission ( ) Not present on admission ( ) Unable to clinically determine ( ) Septicemia (Systemic disease associated with the presence of pathogenic microorganisms in the blood): Specify Organism ( ) Present on Admission ( ) Not present on admission ( ) Unable to clinically determine ( ) Sepsis Specify Organism Specify Associated Condition/Diagnosis ( ) Present on Admission ( ) Not present on admission ( ) Unable to clinically determine ( ) Severe Sepsis (Sepsis associated with acute organ dysfunction) Specify Organism Specify Associated Condition/Diagnosis ( ) Present on Admission ( ) Not present on admission ( ) Unable to clinically determine ( ) Septic Shock (Severe sepsis with acute circulatory failure, unexplained by other causes) ( ) Present on Admission ( ) Not present on admission ( ) Unable to clinically determine (xx ) Other, patient has:sepsis ruled out as documented MTDD
== END 2023-03-09 11:41 | DRG 291 ==
LOC: ED 08:54 → SUATTDRO 12:25 → 1E 12:25 → 2E 02-25 06:49 → 2N 03-07 03:24

== ENCOUNTER 2023-07-08 12:36 | Inpatient (IN) ==
[2023-07-08 13:55] LABS: Basophils # (auto) 0.06 K/uL (0.00-0.20); Basophils % (auto) 0.7 %; Eosinophils # (auto) 0.89 K/uL (0.00-0.50); Eosinophils % (auto) 9.7 %; Hematocrit (blood only) 42.2 % (42.0-52.0); Hemoglobin 13.6 g/dl (14.0-18.0); Immature Granulocytes # (auto) 0.05 K/uL (0.01-0.20); Immature Granulocytes % (auto) 0.5 %; Lymphocytes # (auto) 2.55 K/uL (1.20-3.40); Lymphocytes % (auto) 27.7 %; Mean Corpuscular Hemoglobin 27.7 pg (25.0-34.0); Mean Corpuscular Hgb Conc 32.2 g/dL (32.0-36.0); Mean Corpuscular Volume 85.9 fL (80.0-100.0); Mean Platelet Volume 10.3 fL (9.4-12.4); Monocytes % (auto) 7.6 %; Neutrophils # (auto) 4.94 K/uL (1.40-6.50); Neutrophils % (auto) 53.8 %; Platelet Count 296 K/uL (130-400); Red Blood Count 4.91 M/uL (4.70-6.10); White Blood Count 9.19 K/ul (4.8-10.8)
[2023-07-08 14:29] LABS: INR 2.4 (0.9-1.1); Partial Thromboplastin Ratio 1.6; Partial Thromboplastin Time 46 Seconds (21-31); Prothrombin Time 24.8 Seconds (9.0-12.0)
[2023-07-08 14:43] LABS: Potassium 4.6 mmol/L (3.5-5.1)
--- NOTE | 2023-07-08 14:45 | Emergency Department Note ---
Impression & Plan Cellulitis, Elevated INR, Elevated lactic acid level ED Provider Note NAME: ZIGGY DEUTSCH AGE: 78 SEX: M : 1945 ARRIVES VIA: Walk-In INFORMANT: Patient ED PROVIDER(S): Dio Gamble DO CHIEF COMPLAINT: right heel pain HPI: Patient is a 78-year-old male who presents to the ER referred in by nurse for right heel wound which I feel has gotten worse. Patient notes that he is starting to have pain there which he has never had before or as he does have a history of neuropathy. He denies any headache or change in vision. No chest pain or shortness of breath. No nausea, vomiting, or diarrhea. No fevers. No dysuria, urgency, or frequency. ADDITIONAL HISTORY OBTAINED: Per HPI Chronic Medical/Social Conditions Affecting Care: Per HPI PAST MEDICAL HISTORY:See Below PAST SURGICAL HISTORY:See Below FAMILY HISTORY:See Below SOCIAL HISTORY:See Below HOME MEDICATIONS:See Below ALLERGIES:See Below VITALS:See Below PHYSICAL EXAMINATION: GENERAL: Sitting up in bed, alert, well appearing, well nourished, no distress, non-toxic EYE EXAM: normal conjunctiva. OROPHARYNX: no exudate, no erythema, lips, buccal mucosa, and tongue normal and mucous membranes are moist NECK: supple, no nuchal rigidity, no adenopathy, non-tender LUNGS: Clear to auscultation. Normal chest wall mechanics HEART: no murmurs, S1 normal and S2 normal ABDOMEN: abdomen soft, non-tender, normo-active bowel sounds, no masses, no rebound or guarding. UPPER EXTREMITIES: upper extremities are grossly normal. LOWER EXTREMITIES: Right heel with skin breakdown into the fat. Palpable bone present but no obvious visualization of bone. Mild surrounding erythema. NEURO EXAM: Normal sensorium, cranial nerves II-XII grossly intact, normal speech, no gross weakness of arms, no gross weakness of legs. MEDICAL DECISION MAKING: Patient is a 78-year-old male who presents the ER for heel wound referred in by nursing staff. IV was established medicals obtained. Labs show no significant leukocytosis or anemia. INR was elevated at 2.4. BMP was unremarkable. Lactate was elevated at 2.2 and trended up to 2.4. LFTs bilirubin was unremarkable. Troponin was negative. Pro-Gideon was negative. UA was clean. Patient was given IV fluids and IV cefepime. X-ray of the heel showed no obvious DO. Updated bedside discharge follow-up PCP as outpatient. Consults/Care Managements Discussions: Per MDM Triage Nursing notes reviewed. Limited review of prior medical records performed Vital Signs: reviewed and remarkable for no significant abnormalities Differential diagnosis: Cellulitis, abscess, MRSA infection, DVT, necrotizing fasciitis, dermatitis, drug eruption, allergic reaction, as well as other pathologies. ER treatment provided: See below Diagnostics interpreted by me include EKG and cardiac monitoring as listed below: -Cardiac Monitoring: An order was placed for continuous cardiac monitoring. The monitor shows a rate of 70 with ventricular paced rhythm. -ECG: Ventricular paced rate 73 Right axis No PVCs QTc 546 -Laboratory studies:Interpreted by me as stated above in MDM and shown below. Imaging studies: Xrays: As interpreted by me: Portable AP upright 1 view chest shows mild atelectasis X-ray of the right heel shows no obvious osteo CTs show: none Procedures:none Critical Care: None Past Med/Surg History Medical History Centrilobular emphysema Complex sleep apnea syndrome NYHA class 4 acute on chronic systolic heart failure History of kidney stones Presence of combination internal cardiac defibrillator (ICD) and pacemaker first placed 2010 @ [facility] replaced in 2014 & 2021 @ [facility]--biventricular [employer]. reports last check 11/25/22. Emphysema lung Legally blind Spasticity upper limbs Cervicogenic headache Atherogenic dyslipidemia Chronic back pain History of urinary self-catheterization self caths every other night History of DVT of lower extremity 2010 Macular degeneration Hearing deficit Depression Migraine CAD (coronary artery disease) s/p stent 2010 Myocardial Infarction 10/2010--follows with Dr. Abreu Atrial fibrillation on warfarin--follows with Dr. Abreu Pulmonary embolism 1992 and 2010 after heart attack--follows with Dr. Abreu Asthma inhaler prn Sleep apnea bipap Chronic systolic congestive heart failure EF 25-30% BPH loc w urin obs/LUTS Elevated PSA Ischemic cardiomyopathy Euvolemic at 11/23/22 cardio appt Balance problem Warfarin anticoagulation Surgical History S/P epidural steroid injection History of foot surgery plantar fasciitis History of open reduction and internal fixation (ORIF) procedure left foot--hardware removed History of prostate biopsy x3--precancerous, just monitoring for now History of prostate surgery 07/2016--[facility] prostate vaproization History of cystoscopy multiple History of colonoscopy with polypectomy History of esophagogastroduodenoscopy (EGD) History of right inguinal hernia repair x3 History of Khari fundoplication History of cholecystectomy History of tooth extraction History of eye surgery right--macular degeneration History of bilateral cataract extraction History of cardiac cath 10/2010 @ [facility]--1 stent placed Family History Son Family history of diabetes mellitus Other Family history non-contributory No family history of adverse response to anesthesia Social History Smoking Status: Former smoker Second Hand Exposure: Yes (father smoked); Do You Dip or Chew Tobacco: No; Hx Alcohol Use: No Hx Substance Use: No Preferred Language: Sami Communication Ability: Effective [employer] Consultant Required: No Beliefs That Will Affect Care: None marital status: Current Living Situation: Spouse current occupational status: retired Feels Safe at Home: Yes Assistive Devices: Brace/Splint/Immobilizer, Cane, Special Shoe and Walker Allergies Allergies Allergy/AdvReac Type Severity Reaction Status Date / Time bee venom protein (honey bee) Allergy Severe SWELLING, Verified 07/08/23 16:16 SOB Penicillins Allergy Severe SWELLING, Verified 07/08/23 16:16 DIFFICULTY BREATHING lidocaine Allergy Mild RASH Verified 07/08/23 16:16 cefdinir AdvReac Severe Vomiting Verified 07/08/23 16:16 hydrocodone AdvReac Mild nausea Verified 07/08/23 16:16 oxycodone AdvReac Mild nausea-SLOW Verified 07/08/23 16:16 RELEASE IS OK cefdinir AdvReac Severe Vomiting Uncoded 07/08/23 16:16 Home Meds Home Medications Medication Instructions Recorded Confirmed albuterol sulfate 90 mcg/actuation 2 puffs inhalation Q6H PRN 12/01/18 07/08/23 aerosol inhaler Shortness Of Breath Or Wheezing bupropion HCl 100 mg tablet 100 mg PO BID 12/01/18 07/08/23 docusate sodium 100 mg capsule 100 mg PO BID 12/01/18 07/08/23 finasteride 5 mg tablet 5 mg PO QAM 12/01/18 07/08/23 aspirin 81 mg tablet,delayed 81 mg PO QAM 12/21/18 07/08/23 release mometasone 50 mcg/actuation nasal 2 spray intranasal BID 12/21/18 07/08/23 spray (Nasonex) oxycodone 10 mg tablet 10 mg PO Q12H 12/21/18 07/08/23 sennosides 8.6 mg tablet 8.6 mg PO BID 12/21/18 07/08/23 white petrolatum-mineral oil 56.8 1 applic ophthalmic (eye) HS 12/21/18 07/08/23 %-42.5 % eye ointment (Refresh Lacri-Lube) metoclopramide HCl 10 mg tablet 5 mg PO Q8H 09/04/19 07/08/23 sacubitril 49 mg-valsartan 51 mg 1 tab PO BID 11/25/20 07/08/23 tablet pantoprazole 40 mg tablet,delayed 80 mg PO .@NOON 03/10/21 07/08/23 release rosuvastatin 10 mg tablet (Crestor) 10 mg PO QPM 12/03/21 07/08/23 tiotropium 2.5 mcg-olodaterol 2.5 2 puff inhalation QAM 12/02/22 07/08/23 mcg/actuation mist for inhalation (Stiolto Respimat) lanolin-mineral oil-NaCl-w.pet 1 ea topical Q8H 02/23/23 07/08/23 lotion nystatin 100,000 unit/gram topical 1 applic topical BID 02/23/23 07/08/23 powder carvedilol 25 mg tablet 12.5 mg PO BID 04/06/23 07/08/23 bumetanide 1 mg tablet 1 mg PO QAM 05/17/23 07/08/23 cetirizine 10 mg tablet 10 mg PO DAILY 05/17/23 07/08/23 epinephrine 0.3 mg/0.3 mL 0.3 mg IM DIRECTED PRN sEVERE 07/08/23 07/08/23 injection, auto-injector ALLERGIC REACTION vitamins A,C,R-ftow-uwugzh 2,148 2 tab PO DAILY 07/08/23 07/08/23 mcg-113 mg-45 mg-17.4 mg tablet (PreserVision AREDS) Previous Rx's Medication Instructions Recorded potassium chloride 20 mEq 20 meq PO BID #200 tabs 01/05/20 tablet,extended release metolazone 5 mg tablet 10 mg (2 x 5 mg) PO DAILY #30 tabs 03/09/23 sucralfate 100 mg/mL oral 1 g (10 mL) PO QID #28 mL 03/09/23 suspension warfarin 5 mg tablet 5 mg PO . @ MN,WD,FR,ST,SN #100 04/16/23 tabs pramipexole 0.375 mg 0.375 mg PO QAM Parkinsonism #90 07/07/23 tablet,extended release 24 hr tabs (Mirapex ER) Results & Data (ED) Vital Signs Vital Signs - 24 hr 07/08/23 12:53 07/08/23 14:37 07/08/23 14:46 Temperature 36.8 C 36.7 C Temperature Source Temporal Artery Scan Oral Pulse Rate 74 71 Pulse Rate [Right Finger] 68 Pulse Rhythm Pulse Rhythm [Right Finger] Regular Pulse Strength [Right Finger] Respiratory Rate 18 24 Respiratory Effort / Characteristics Non-Labored Spontaneous Non-Labored Spontaneous Respiratory Depth Normal Normal Respiratory Pattern Regular Regular Blood Pressure 126/51 L Blood Pressure [Left Arm] 132/82 Blood Pressure Mean 76 Blood Pressure Mean [Left Arm] 98 Blood Pressure Position Sitting Blood Pressure Position [Left Arm] Semi-fowlers Pulse Oximetry 96 96 Oxygen Delivery Method Room Air Room Air Sepsis Recent Fever Within 48 Hours No Sepsis New/Unexplained Change in Mental Status No Sepsis Action Taken by Nursing No Action Required 07/08/23 14:52 07/08/23 16:40 07/08/23 18:26 Temperature 36.7 C Temperature Source Oral Pulse Rate 74 75 Pulse Rate [Right Finger] 73 Pulse Rhythm Regular Pulse Rhythm [Right Finger] Regular Pulse Strength [Right Finger] Normal Respiratory Rate 18 17 Respiratory Effort / Characteristics Non-Labored Spontaneous Respiratory Depth Normal Respiratory Pattern Regular Blood Pressure Blood Pressure [Left Arm] 134/83 Blood Pressure Mean Blood Pressure Mean [Left Arm] 100 Blood Pressure Position Blood Pressure Position [Left Arm] Semi-fowlers Pulse Oximetry 96 95 Oxygen Delivery Method Room Air Room Air Sepsis Recent Fever Within 48 Hours Sepsis New/Unexplained Change in Mental Status Sepsis Action Taken by Nursing 07/08/23 19:31 Temperature Temperature Source Pulse Rate Pulse Rate [Right Finger] 80 Pulse Rhythm Pulse Rhythm [Right Finger] Pulse Strength [Right Finger] Respiratory Rate 18 Respiratory Effort / Characteristics Respiratory Depth Respiratory Pattern Blood Pressure Blood Pressure [Left Arm] 126/83 Blood Pressure Mean Blood Pressure Mean [Left Arm] 97 Blood Pressure Position Blood Pressure Position [Left Arm] Pulse Oximetry 90 Oxygen Delivery Method Room Air Sepsis Recent Fever Within 48 Hours Sepsis New/Unexplained Change in Mental Status Sepsis Action Taken by Nursing Laboratory Data 07/08/23 13:42 07/08/23 13:42 Lab Results 07/08/23 07/08/23 07/08/23 Range/Units 13:42 15:14 15:55 WBC 9.19 (4.8-10.8) K/ul RBC 4.91 (4.70-6.10) M/uL Hgb 13.6 L (14.0-18.0) g/dl Hct 42.2 (42.0-52.0) % MCV 85.9 (80.0-100.0) fL MCH 27.7 (25.0-34.0) pg MCHC 32.2 (32.0-36.0) g/dL RDW Std Deviation 47.0 H (36.4-46.3) fL RDW Coeff of Jerry 15.0 H (11.5-14.5) % Plt Count 296 (130-400) K/uL MPV 10.3 (9.4-12.4) fL Immature Gran % (Auto) 0.5 % Neut % (Auto) 53.8 % Lymph % (Auto) 27.7 % Schleicher % (Auto) 7.6 % Eos % (Auto) 9.7 % Baso % (Auto) 0.7 % Neut # (Auto) 4.94 (1.40-6.50) K/uL Lymph # (Auto) 2.55 (1.20-3.40) K/uL Schleicher # (Auto) 0.70 H (0.11-0.59) K/uL Eos # (Auto) 0.89 H (0.00-0.50) K/uL Baso # (Auto) 0.06 (0.00-0.20) K/uL Immature Gran # (Auto) 0.05 (0.01-0.20) K/uL ESR 38 H (0-20) mm/hr PT 24.8 H (9.0-12.0) Seconds INR 2.4 H (0.9-1.1) APTT 46 H (21-31) Seconds PTT Ratio 1.6 Sodium 133 L (136-145) mmol/L Potassium 4.6 (3.5-5.1) mmol/L Chloride 102 (98-107) mmol/L Carbon Dioxide 22 (21-32) mmol/L Anion Gap 9 (3-11) BUN 25 H (6-23) mg/dl Creatinine 0.91 (0.6-1.4) mg/dl Est Cr Clr Drug Dosing 71.3 ml/min Est GFR ( Amer) 93.2 ml/min Est GFR (Non-Af Amer) 80.4 ml/min BUN/Creatinine Ratio 27.5 H (10-20) Glucose 107 H (70-99(Fasting)) mg/dl Lactate 2.1 H* 2.4 H* (0.4-2.0) mmol/L Calcium 9.0 (8.6-10.3) mg/dl Magnesium 2.0 (1.7-2.4) mg/dl Total Bilirubin 0.3 (0.2-1.0) mg/dl AST 16 (13-39) U/L ALT 15 (7-52) U/L Alkaline Phosphatase 54 (34-104) U/L Troponin I High Sens 9.0 (0-20) pg/ml C-Reactive Protein 0.72 H (0-0.5) mg/dl Total Protein 7.8 (6.0-8.3) gm/dl Albumin 4.0 (3.4-5.0) gm/dl Globulin 3.8 (2.5-4.0) gm/dl Albumin/Globulin Ratio 1.1 (0.9-2) Procalcitonin Cancelled < 0.02 Urine Color Urine Appearance (Clear) Urine pH (4.5-7.5) Ur Specific [place] [employer] (1.000-1.030) Urine Protein (Negative) Urine Glucose (UA) (Negative) Urine Ketones (Negative) Urine Blood (Negative) Urine Nitrite (Negative) Urine Bilirubin (Negative) Urine Urobilinogen (Negative) Ur Leukocyte Esterase (Negative) 07/08/23 Range/Units Unknown WBC (4.8-10.8) K/ul RBC (4.70-6.10) M/uL Hgb (14.0-18.0) g/dl Hct (42.0-52.0) % MCV (80.0-100.0) fL MCH (25.0-34.0) pg MCHC (32.0-36.0) g/dL RDW Std Deviation (36.4-46.3) fL RDW Coeff of Jerry (11.5-14.5) % Plt Count (130-400) K/uL MPV (9.4-12.4) fL Immature Gran % (Auto) % Neut % (Auto) % Lymph % (Auto) % Schleicher % (Auto) % Eos % (Auto) % Baso % (Auto) % Neut # (Auto) (1.40-6.50) K/uL Lymph # (Auto) (1.20-3.40) K/uL Schleicher # (Auto) (0.11-0.59) K/uL Eos # (Auto) (0.00-0.50) K/uL Baso # (Auto) (0.00-0.20) K/uL Immature Gran # (Auto) (0.01-0.20) K/uL ESR (0-20) mm/hr PT (9.0-12.0) Seconds INR (0.9-1.1) APTT (21-31) Seconds PTT Ratio Sodium (136-145) mmol/L Potassium (3.5-5.1) mmol/L Chloride (98-107) mmol/L Carbon Dioxide (21-32) mmol/L Anion Gap (3-11) BUN (6-23) mg/dl Creatinine (0.6-1.4) mg/dl Est Cr Clr Drug Dosing ml/min Est GFR ( Amer) ml/min Est GFR (Non-Af Amer) ml/min BUN/Creatinine Ratio (10-20) Glucose (70-99(Fasting)) mg/dl Lactate (0.4-2.0) mmol/L Calcium (8.6-10.3) mg/dl Magnesium (1.7-2.4) mg/dl Total Bilirubin (0.2-1.0) mg/dl AST (13-39) U/L ALT (7-52) U/L Alkaline Phosphatase (34-104) U/L Troponin I High Sens (0-20) pg/ml C-Reactive Protein (0-0.5) mg/dl Total Protein (6.0-8.3) gm/dl Albumin (3.4-5.0) gm/dl Globulin (2.5-4.0) gm/dl Albumin/Globulin Ratio (0.9-2) Procalcitonin Urine Color Yellow Urine Appearance Clear (Clear) Urine pH 6.0 (4.5-7.5) Ur Specific [place] [employer] 1.011 (1.000-1.030) Urine Protein Negative (Negative) Urine Glucose (UA) Negative (Negative) Urine Ketones Negative (Negative) Urine Blood Negative (Negative) Urine Nitrite Negative (Negative) Urine Bilirubin Negative (Negative) Urine Urobilinogen Negative (Negative) Ur Leukocyte Esterase Negative (Negative) Administered Medications Discontinued Medications Cefepime HCl (Cefepime 2,000 Mg/20 Ml Vial) Confirm Administered Dose 2,000 mg .ROUTE .[facility] ONE Stop: 07/08/23 15:38 Last Admin: 07/08/23 16:01 Dose: Not Given Documented By: DOMINICK Sodium Chloride (Nss) 500 mls @ 999 mls/hr IV .Q31M ONE Stop: 07/08/23 15:16 Last Infusion: 07/08/23 16:04 Dose: Infused Documented By: Admin: 07/08/23 15:02 Dose: 999 mls/hr Documented By: CINDY Cefepime HCl 2,000 mg/ Syringe 20 mls @ 5 mls/min IV NOW STA; Protocol Stop: 07/08/23 14:52 Last Admin: 07/08/23 15:57 Dose: 5 mls/min Documented By: DOMINICK Sodium Chloride (Nss) 500 mls @ 999 mls/hr IV .Q31M ONE Stop: 07/08/23 16:59 Last Infusion: 07/08/23 17:16 Dose: Infused Documented By: Admin: 07/08/23 16:40 Dose: 999 mls/hr Documented By: DOMINICK Lactated Ringer's (Lr) 500 mls @ 999 mls/hr IV .Q31M ONE Stop: 07/08/23 19:41 Last Infusion: 07/08/23 20:07 Dose: Infused Documented By: Admin: 07/08/23 19:22 Dose: 999 mls/hr Documented By: FRANKY Oxycodone HCl (Oxycodone Hcl 10 Mg Tabcr (Oxycontin)) 10 mg PO ONE ONE Stop: 07/08/23 18:58 Last Admin: 07/08/23 19:29 Dose: 10 mg Documented By: FRANKY Imaging Data Radiologist's Impression: Chest X-Ray 07/08/23 13:00 XR chest 1V not portable CLINICAL HISTORY: Sepsis COMPARISON STUDY: Chest radiograph and chest CT March 04, 2023. FINDINGS: Left subclavian biventricular pacer/AICD is in place. There is no pneumothorax. Bilateral pleural effusions shown on prior CT chest radiograph are no longer identified. Cardiomegaly is unchanged. There is no evidence for pulmonary edema. Underlying emphysema. Linear bibasilar densities favor atelectasis. IMPRESSION: 1. Cardiomegaly without evidence for pulmonary edema. 2. Bibasilar densities which favor atelectasis. An infectious process is considered less likely. ACT 112: Negative or not required by law. Electronically signed by: Adam Benson M.D. 07/08/2023 2:54 PM Calcaneus X-Ray 07/08/23 15:18 XR calcaneus RT min 2V CLINICAL HISTORY: Calcaneal pain. Assess for osteomyelitis. COMPARISON STUDY: Right calcaneus 04/06/2023. FINDINGS: Soft tissue swelling within the ankle and foot. Small plantar heel spur is noted. No soft tissue gas. No radiopaque foreign bodies. No areas of bony destruction to suggest an osteomyelitis. No skin ulcerations identified. IMPRESSION: Soft tissue swelling within the right ankle and foot. No evidence for osteomyelitis within the calcaneus. ACT 112: Negative or not required by law. Electronically signed by: Lambert Hart M.D. 07/08/2023 4:09 PM Discharge Plan Visit Data Chief Complaint: Infection Stated Complaint: R FOOT INFECTION, REF BY DR RIZZO Provider: Dio Gamble Discharge Problem: Cellulitis, Elevated INR, Elevated lactic acid level Forms Stand Alone Forms: [facility] [employer] Prescriptions Prescriptions: No Action potassium chloride 20 mEq tablet extended release 20 meq PO BID Qty: 200 3RF rosuvastatin [Crestor] 10 mg tablet 10 mg PO QPM warfarin 5 mg tablet 5 mg PO . @ MN,WD,FR,ST,SN Qty: 100 3RF Protocol: Dose Management Condition: Wednesday (Week One) Dose/Route: 2.5 mg Instruction: 0.5 x 5 mg tablets Condition: Wednesday Dose/Route: 5 mg Instruction: 1 x 5 mg tablet Condition: Wednesday Dose/Route: 2.5 mg Instruction: 0.5 x 5 mg tablets Condition: Wednesday Dose/Route: 5 mg Instruction: 1 x 5 mg tablet Condition: Dose/Route: 5 mg Instruction: 1 x 5 mg tablet Condition: Wednesday Dose/Route: 5 mg Instruction: 1 x 5 mg tablet Condition: Wednesday Dose/Route: 2.5 mg Instruction: 0.5 x 5 mg tablets Condition: Wednesday (Week Two) Dose/Route: 2.5 mg Instruction: 0.5 x 5 mg tablets Condition: Wednesday Dose/Route: 5 mg Instruction: 1 x 5 mg tablet Condition: Wednesday Dose/Route: 2.5 mg Instruction: 0.5 x 5 mg tablets Condition: Wednesday Dose/Route: 5 mg Instruction: 1 x 5 mg tablet Condition: Dose/Route: 2.5 mg Instruction: 0.5 x 5 mg tablets Condition: Wednesday Dose/Route: 5 mg Instruction: 1 x 5 mg tablet Condition: Wednesday Dose/Route: 2.5 mg Instruction: 0.5 x 5 mg tablets Protocol Text: Adjustment Start Date: 07/01/23 INR Value: 1.9 INR Date: 07/01/23 Recheck Date: 07/12/23 Rx Instructions: Take 1 tablet daily, except 0.5 tablet on Wednesday, and Wednesday. sacubitril-valsartan 49-51 mg tablet 1 tab PO BID cetirizine 10 mg tablet 10 mg PO DAILY bumetanide 1 mg tablet 1 mg PO QAM carvedilol 25 mg tablet 12.5 mg PO BID Rx Instructions: must administer with a meal/food bupropion HCl 100 mg tablet 100 mg PO BID Rx Instructions: TAKE THIS MEDICATION EVERY MORNING AND AT NOON albuterol sulfate 90 mcg/actuation HFA aerosol inhaler 2 puffs inhalation Q6H PRN (Reason: Shortness Of Breath Or Wheezing) docusate sodium 100 mg capsule 100 mg PO BID finasteride 5 mg tablet 5 mg PO QAM pantoprazole 40 mg tablet,delayed release (DR/EC) 80 mg PO .@NOON pramipexole [Mirapex ER] 0.375 mg tablet extended release 24 hr 0.375 mg PO QAM Qty: 90 3RF aspirin 81 mg Tablet,Delayed Release (Dr/Ec) 81 mg PO QAM mometasone [Nasonex] 50 mcg/actuation Jordan,Non-Aerosol 2 spray INTRANASAL BID oxycodone 10 mg Tablet 10 mg PO Q12H Patient Comments: takes 6am and 6pm sennosides 8.6 mg Tablet 8.6 mg PO BID Refresh Lacri-Lube 56.8-42.5 % Ointment 1 applic OPHTHALMIC (EYE) HS Rx Instructions: 1/8th INCH IN EACH EYE metoclopramide HCl 10 mg tablet 5 mg PO Q8H Stiolto Respimat 2.5-2.5 mcg/actuation Mist 2 puff INHALATION QAM nystatin 100,000 unit/gram Powder 1 applic TOPICAL BID lanolin-mineral oil-NaCl-w.pet Lotion 1 ea TOPICAL Q8H metolazone 5 mg Tablet 10 mg PO DAILY Qty: 30 0RF sucralfate 100 mg/mL Suspension 1 g PO QID Qty: 28 0RF epinephrine [Epi E-Z Pen] 0.3 mg/0.3 mL Auto-Injector 0.3 mg IM DIRECTED PRN (Reason: sEVERE ALLERGIC REACTION) PreserVision AREDS 2,148 mcg-113 mg-45 mg-17.4mg Tablet 2 tab PO DAILY Rx Instructions: administer with AM and PM meals Referrals Referrals: Tramaine Peterson MD [Primary Care Provider] - Discharge Problem: Cellulitis Qualifiers: Site of cellulitis: unspecified site Qualified Code(s): L03.90 - Cellulitis, unspecified
[2023-07-08 14:53] LABS: Albumin Globulin Ratio 1.1 (0.9-2); BUN Creatinine Ratio 27.5 (10-20); Bilirubin,Total 0.3 mg/dl (0.2-1.0); Creatinine Clr Calc Pharmacy 71.3 ml/min; Est GFR (African American) 93.2 ml/min; Est GFR (Non-African American) 80.4 ml/min; Globulin 3.8 gm/dl (2.5-4.0); Total Protein 7.8 gm/dl (6.0-8.3)
--- NOTE | 2023-07-08 14:56 | XRay Report ---
XR chest 1V not portable CLINICAL HISTORY: Sepsis COMPARISON STUDY: Chest radiograph and chest CT March 04, 2023. FINDINGS: Left subclavian biventricular pacer/AICD is in place. There is no pneumothorax. Bilateral p leural effusions shown on prior CT chest radiograph are no longer identified. Cardiomegaly is unchang ed. There is no evidence for pulmonary edema. Underlying emphysema. Linear bibasilar densities favor atelectasis. IMPRESSION: 1. Cardiomegaly without evidence for pulmonary edema. 2. Bibasilar densities which favor atelectasis. An infectious process is considered less likely. ACT 112: Negative or not required by law. Electronically signed by: Adam Benson M.D. 07/08/2023 2:54 PM
[2023-07-08] MEDS: SODIUM CHLORIDE 0.9% 500 ML IV ONE ×2 (15:02→16:40)
[2023-07-08] MEDS: CEFEPIME 2,000 MG in SYRINGE 0 ML IV STA (15:57)
[2023-07-08] MEDS: CEFEPIME 2,000 MG/20 ML VIAL ONE (16:01)
--- NOTE | 2023-07-08 16:10 | XRay Report ---
XR calcaneus RT min 2V CLINICAL HISTORY: Calcaneal pain. Assess for osteomyelitis. COMPARISON STUDY: Right calcaneus 04/06/2023. FINDINGS: Soft tissue swelling within the ankle and foot. Small plantar heel spur is noted. No soft t issue gas. No radiopaque foreign bodies. No areas of bony destruction to suggest an osteomyelitis. No skin ulcerations identified. IMPRESSION: Soft tissue swelling within the right ankle and foot. No evidence for osteomyelitis with in the calcaneus. ACT 112: Negative or not required by law. Electronically signed by: Lambert Hart M.D. 07/08/2023 4:09 PM
--- NOTE | 2023-07-08 17:19 | History & Physical Report ---
Date of Service July 08, 2023 Assessment & Plan (1) Pressure ulcer of right heel, stage 4: Plan: Patient presented for right foot pain x 2 days Sent in from home health/wound clinic for erythema and purulent drainage from his right heel ulcer Calcaneus x-ray revealed soft tissue swelling without evidence of osteomyelitis CRP, ESR ordered, pending Daily wound care Wound care nurse consulted Wound care culture as needed Cefepime given in the ED, will de-escalate to Rocephin 2000 mg IV q24h A.m. CBC, BMP, CRP (2) Elevated lactic acid level: Plan: Lactate 2.1-->2.4-->2.6 on arrival Blood cultures ordered, pending Patient does not meet SIRS criteria at time of admission Patient received NSS 500 x 2, LR 500 x 1 in the ED Continue with Plasma-Lyte 100 mL/hr x 1 overnight Wound culture on 05/21/23 grew MSSA sensitive to daptomycin Will add on daptomycin 325 mg IV q24h for additional coverage Hold statin (3) NYHA class 4 acute on chronic systolic heart failure: Plan: Last echo on 02/25/2023 revealed LVEF at 30-35% CXR revealed cardiomegaly without evidence of pulmonary edema Continue Entresto Hold Bumex and potassium supplementation in the setting of IVF resuscitation (4) Tremor: Plan: Continue pramipexole (5) Atrial fibrillation: Plan: Continue warfarin; therapeutic goal range 2-3 EKG on arrival showed ventricular paced rhythm at 73 bpm; QTc 546 (caution use of QT prolonging agents) (6) Neuropathy: Plan: Patient reports burning sensation in his arms and legs when he misses oxycodone doses Continue oxycodone 10 mg q12h (7) Complex sleep apnea syndrome: Plan: Patient declined CPAP HS Plan [facility]: [facility] Full code Regular diet VTE PPx: On warfarin History of Present Illness Chief Complaint: Right heel ulcer Primary Care Provider: Tramaine Peterson MD Royce is a 78-year-old male with PMH of A-fib, CHF, ischemic cardiomyopathy, CAD, tremor, parkinsonism, complex sleep apnea syndrome, and bilateral stage IV pressure ulcer on heels. He presented for at the request of home health nursing and wound care clinic for erythema/swelling/warmth and mild purulent drainage of his right heel wound. Patient reports that he has been having pain on the top of his right foot for the past 2 days. No radiation. He reports that it is a stabbing pain that is kept him up the past 2 nights. He has not taken any additional pain medications. He denies any pain at time of admission. He does take oxycodone 10 mg q12h for neuropathy. No recent change in medications. He reports that he took all of his regular morning medications today. He ambulates with a walker/wheelchair at baseline. Vital stable at time of admission. ED course: Cefepime 2000 mg IV NSS 500 mL IV x 2 ROS: Patient endorses dizziness when standing, loose bowel movements, numbness in feet, and pain in his right foot x 2 days. Patient denies fever, chills, nightsweats, NEAL, chest pain, SOB, cough, chest palpitations, abdominal pain, N/V, and pain in left foot. Allergies Allergy/AdvReac Type Severity Reaction Status Date / Time bee venom protein (honey bee) Allergy Severe SWELLING, Verified 07/08/23 16:16 SOB Penicillins Allergy Severe SWELLING, Verified 07/08/23 16:16 DIFFICULTY BREATHING lidocaine Allergy Mild RASH Verified 07/08/23 16:16 cefdinir AdvReac Severe Vomiting Verified 07/08/23 16:16 hydrocodone AdvReac Mild nausea Verified 07/08/23 16:16 oxycodone AdvReac Mild nausea-SLOW Verified 07/08/23 16:16 RELEASE IS OK cefdinir AdvReac Severe Vomiting Uncoded 07/08/23 16:16 Home Medications Medication Instructions Recorded Confirmed Type albuterol sulfate 90 mcg/actuation 2 puffs inhalation Q6H PRN 12/01/18 07/08/23 History aerosol inhaler Shortness Of Breath Or Wheezing bupropion HCl 100 mg tablet 100 mg PO BID 12/01/18 07/08/23 History docusate sodium 100 mg capsule 100 mg PO BID 12/01/18 07/08/23 History finasteride 5 mg tablet 5 mg PO QAM 12/01/18 07/08/23 History aspirin 81 mg tablet,delayed 81 mg PO QAM 12/21/18 07/08/23 History release mometasone 50 mcg/actuation nasal 2 spray intranasal BID 12/21/18 07/08/23 History spray (Nasonex) oxycodone 10 mg tablet 10 mg PO Q12H 12/21/18 07/08/23 History sennosides 8.6 mg tablet 8.6 mg PO BID 12/21/18 07/08/23 History white petrolatum-mineral oil 56.8 1 applic ophthalmic (eye) HS 12/21/18 07/08/23 History %-42.5 % eye ointment (Refresh Lacri-Lube) metoclopramide HCl 10 mg tablet 5 mg PO Q8H 09/04/19 07/08/23 History potassium chloride 20 mEq 20 meq PO BID #200 tabs 01/05/20 07/08/23 Rx tablet,extended release sacubitril 49 mg-valsartan 51 mg 1 tab PO BID 11/25/20 07/08/23 History tablet pantoprazole 40 mg tablet,delayed 80 mg PO .@NOON 03/10/21 07/08/23 History release rosuvastatin 10 mg tablet (Crestor) 10 mg PO QPM 12/03/21 07/08/23 History tiotropium 2.5 mcg-olodaterol 2.5 2 puff inhalation QAM 12/02/22 07/08/23 History mcg/actuation mist for inhalation (Stiolto Respimat) lanolin-mineral oil-NaCl-w.pet 1 ea topical Q8H 02/23/23 07/08/23 History lotion nystatin 100,000 unit/gram topical 1 applic topical BID 02/23/23 07/08/23 History powder metolazone 5 mg tablet 10 mg (2 x 5 mg) PO DAILY #30 tabs 03/09/23 07/08/23 Rx sucralfate 100 mg/mL oral 1 g (10 mL) PO QID #28 mL 03/09/23 07/08/23 Rx suspension carvedilol 25 mg tablet 12.5 mg PO BID 04/06/23 07/08/23 History warfarin 5 mg tablet 5 mg PO . @ MN,WD,FR,ST,SN #100 04/16/23 07/08/23 Rx tabs bumetanide 1 mg tablet 1 mg PO QAM 05/17/23 07/08/23 History cetirizine 10 mg tablet 10 mg PO DAILY 05/17/23 07/08/23 History pramipexole 0.375 mg 0.375 mg PO QAM Parkinsonism #90 07/07/23 07/08/23 Rx tablet,extended release 24 hr tabs (Mirapex ER) epinephrine 0.3 mg/0.3 mL 0.3 mg IM DIRECTED PRN sEVERE 07/08/23 07/08/23 History injection, auto-injector ALLERGIC REACTION vitamins A,C,E-yrgc-iyhcdk 2,148 2 tab PO DAILY 07/08/23 07/08/23 History mcg-113 mg-45 mg-17.4 mg tablet (PreserVision AREDS) Past Med/Surg History Medical History (Updated 07/08/23 @ 21:46 by CARINA WorkmanC) Neuropathy Centrilobular emphysema Complex sleep apnea syndrome NYHA class 4 acute on chronic systolic heart failure History of kidney stones Presence of combination internal cardiac defibrillator (ICD) and pacemaker first placed 2010 @ [facility] replaced in 2014 & 2021 @ [facility]--biventricular [employer]. reports last check 11/25/22. Emphysema lung Legally blind Spasticity upper limbs Cervicogenic headache Atherogenic dyslipidemia Chronic back pain History of urinary self-catheterization self caths every other night History of DVT of lower extremity 2010 Macular degeneration Hearing deficit Depression Migraine CAD (coronary artery disease) s/p stent 2010 Myocardial Infarction 10/2010--follows with Dr. Abreu Atrial fibrillation on warfarin--follows with Dr. Abreu Pulmonary embolism 1992 and 2010 after heart attack--follows with Dr. Abreu Asthma inhaler prn Sleep apnea bipap Chronic systolic congestive heart failure EF 25-30% BPH loc w urin obs/LUTS Elevated PSA Ischemic cardiomyopathy Euvolemic at 11/23/22 cardio appt Balance problem Warfarin anticoagulation Surgical History S/P epidural steroid injection History of foot surgery plantar fasciitis History of open reduction and internal fixation (ORIF) procedure left foot--hardware removed History of prostate biopsy x3--precancerous, just monitoring for now History of prostate surgery 07/2016--[facility] prostate vaproization History of cystoscopy multiple History of colonoscopy with polypectomy History of esophagogastroduodenoscopy (EGD) History of right inguinal hernia repair x3 History of Khari fundoplication History of cholecystectomy History of tooth extraction History of eye surgery right--macular degeneration History of bilateral cataract extraction History of cardiac cath 10/2010 @ [facility]--1 stent placed Family History Son Family history of diabetes mellitus Other Family history non-contributory No family history of adverse response to anesthesia Social History Smoking Status: Former smoker Second Hand Exposure: Yes (father smoked); Do You Dip or Chew Tobacco: No; Hx Alcohol Use: No Hx Substance Use: No Preferred Language: Martiniquais Communication Ability: Effective Crack Off Person Required: No Beliefs That Will Affect Care: None marital status: Current Living Situation: Spouse current occupational status: retired Feels Safe at Home: Yes Assistive Devices: Brace/Splint/Immobilizer, Cane, Special Shoe and Walker Review of Systems 2 Review of Systems: See HPI above Physical Exam 2 Physical Exam: General: no acute distress; pleasant affect; resting upper extremity tremor; non-toxic appearing; well-nourished; cooperative HEENT: normocephalic, atraumatic; no scleral icterus; PERRLA w/ EOMs intact; moist mucus membrane; vision and hearing grossly intact Neck: supple; no lymphadenopathy; trachea midline Skin: warm, dry without signs of tenting; no cyanosis CV: chest wall NTP; RRR; S1/S2 normal; no murmurs/rubs/gallops; pulses intact and symmetric at radial, DP, and PT Lungs: no acute respiratory distress; symmetrical chest wall expansion; clear breath sounds across all lung paul w/o adventitious sounds; no wheezing ABD: Soft, NTP; BS present; no rebound/guarding; no ascites MSK: no tics or fasciculations; +1 pitting edema noted in the LEs b/l, nonerythematous Right heel: Mildly erythematous with surrounding edema from the ulcer site; purulent drainage; not malodorous Neuro: A&Ox3; normal mood and affect; fluent speech; no focal deficits; patient denies any sensation in the lower extremities B/L assessed via light touch at the feet to knees Results & Data Results & Data Vital Signs (Past 12 Hours) Vital Signs Temp Pulse Pulse Resp BP BP Pulse Ox 07/08/23 16:40 36.7 C 73 17 134/83 95 07/08/23 14:52 74 18 96 07/08/23 14:46 71 07/08/23 14:37 36.7 C 68 24 132/82 96 07/08/23 12:53 36.8 C 74 18 126/51 L 96 O2 Del Method 07/08/23 16:40 Room Air 07/08/23 14:52 Room Air 07/08/23 14:46 07/08/23 14:37 Room Air 07/08/23 12:53 Room Air Laboratory Results Abnormal lab results 07/08/23 07/08/23 Range/Units 13:42 15:55 Hgb 13.6 L (14.0-18.0) g/dl RDW Std Deviation 47.0 H (36.4-46.3) fL RDW Coeff of Jerry 15.0 H (11.5-14.5) % Ceiba # (Auto) 0.70 H (0.11-0.59) K/uL Eos # (Auto) 0.89 H (0.00-0.50) K/uL PT 24.8 H (9.0-12.0) Seconds INR 2.4 H (0.9-1.1) APTT 46 H (21-31) Seconds Sodium 133 L (136-145) mmol/L BUN 25 H (6-23) mg/dl BUN/Creatinine Ratio 27.5 H (10-20) Glucose 107 H (70-99(Fasting)) mg/dl Lactate 2.1 H* 2.4 H* (0.4-2.0) mmol/L Diagnostic Findings Chest X-Ray 07/08/23 13:00 XR chest 1V not portable CLINICAL HISTORY: Sepsis COMPARISON STUDY: Chest radiograph and chest CT March 04, 2023. FINDINGS: Left subclavian biventricular pacer/AICD is in place. There is no pneumothorax. Bilateral pleural effusions shown on prior CT chest radiograph are no longer identified. Cardiomegaly is unchanged. There is no evidence for pulmonary edema. Underlying emphysema. Linear bibasilar densities favor atelectasis. IMPRESSION: 1. Cardiomegaly without evidence for pulmonary edema. 2. Bibasilar densities which favor atelectasis. An infectious process is considered less likely. ACT 112: Negative or not required by law. Electronically signed by: Adam Benson M.D. 07/08/2023 2:54 PM Calcaneus X-Ray 07/08/23 15:18 XR calcaneus RT min 2V CLINICAL HISTORY: Calcaneal pain. Assess for osteomyelitis. COMPARISON STUDY: Right calcaneus 04/06/2023. FINDINGS: Soft tissue swelling within the ankle and foot. Small plantar heel spur is noted. No soft tissue gas. No radiopaque foreign bodies. No areas of bony destruction to suggest an osteomyelitis. No skin ulcerations identified. IMPRESSION: Soft tissue swelling within the right ankle and foot. No evidence for osteomyelitis within the calcaneus. ACT 112: Negative or not required by law. Electronically signed by: Lambert Hart M.D. 07/08/2023 4:09 PM Supervising Physician Co-Signing Physician Notes Patient seen and examined, chart reviewed, case discussed with Lambert Maxwell and I agree with the assessment and plan as above except as otherwise noted Labs and images reviewed 78-year-old male with chronic heel wound referred by wound care for concern of purulent discharge and underlying infection, with elevated lactate on admission. Patient received cefepime and 1 L of NSS, slight uptrend in lactate on ER reassessment. He is normotensive, is not tachycardic, does not have a leukocytosis. X-ray shows soft tissue swelling within the right ankle and foot but no evidence of osteomyelitis. Patient has a history of MSSA, no history of Pseudomonas. Can de-escalate from cefepime to Rocephin. Otherwise agree with assessment and management above. PG Care Time/CCT Total # of Minutes Spent Total Time Spent with Patient: Total time spent is greater than 50% in coordination of care (as documented) at patient's floor/unit and/or counseling patient: C[place] [address] INT INP/OBS CARE 2/MIN Patient Type Established History Comprehensive Exam Comprehensive Medical Decision Making Moderate Complexity Diagnoses Pressure ulcer of right heel, stage 4 L89.614 Elevated lactic acid level R79.89 NYHA class 4 acute on chronic systolic heart failure I50.23 Tremor R25.1 Paroxysmal atrial fibrillation I48.0 Atrial fibrillation type: paroxysmal Neuropathy G62.9 Complex sleep apnea syndrome G47.31 (5) Atrial fibrillation Atrial fibrillation type: paroxysmal Qualified Code(s): I48.0 - Paroxysmal atrial fibrillation
[2023-07-08 17:31] LABS: Appearance Urine Clear (Clear); Bilirubin Urine Negative (Negative); Blood Urine Negative (Negative); Color Urine Yellow; Glucose Urine UA Negative (Negative); Ketones Urine Negative (Negative); Leukocyte Esterase Urine Negative (Negative); Nitrite Urine Negative (Negative); Protein Urine Negative (Negative); Specific Gravity Urine 1.011 (1.000-1.030); Urobilinogen Urine Negative (Negative)
[2023-07-08] MEDS: LACTATED RINGER'S 500 ML IV ONE (19:22)
[2023-07-08] MEDS: oxyCODONE HCL 10 MG TABCR (OxyCONTIN) PO ONE (19:29)
[2023-07-08 19:50] LABS: C Reactive Protein 0.72 mg/dl (0-0.5)
[2023-07-08] MEDS: DAPTOmycin 325 MG in SYRINGE 0 ML IV SCH (22:19)
[2023-07-08] MEDS ORDERED: ACETAMINOPHEN 325 MG TAB PO PRN (22:53)
[2023-07-08] MEDS ORDERED: MELATONIN 3 MG TAB PO PRN (22:53)
[2023-07-08] MEDS: PLASMA-LYTE A 1,000 ML IV SCH (23:05)
[2023-07-09] MEDS: SUCRALFATE 1 GM/10 ML UDC PO SCH (00:01)
[2023-07-09] MEDS: WARFARIN SOD 2.5 MG TAB PO SCH (00:01)
[2023-07-09] MEDS: DOCUSATE SODIUM 100 MG CAP PO SCH (00:01)
[2023-07-09] MEDS: carvediloL 12.5 MG TAB PO SCH (00:03)
[2023-07-09] MEDS: VALSARTAN/SACUBITRIL 51/49 MG TAB PO SCH (00:03)
[2023-07-09] MEDS: SENNA 8.6 MG TAB PO SCH (00:04)
[2023-07-09] MEDS: METOCLOPRAMIDE HCL 5 MG TABLET PO SCH (00:05)
[2023-07-09] MEDS ORDERED: ALBUTEROL HFA 8 GM INHALER INH PRN (01:27)
[2023-07-09] MEDS: cefTRIAXone SODIUM 2,000 MG in DEXTROSE 5 % MINI-B 50 ML IV SCH (05:07)
[2023-07-09] MEDS: oxyCODONE HCL IR 5 MG TAB (IMMEDIATE RELEASE) PO SCH (05:36)
[2023-07-09 06:59] LABS: Basophils # (auto) 0.05 K/uL (0.00-0.20); Basophils % (auto) 0.6 %; Eosinophils # (auto) 0.86 K/uL (0.00-0.50); Eosinophils % (auto) 9.9 %; Hematocrit (blood only) 38.6 % (42.0-52.0); Hemoglobin 12.5 g/dl (14.0-18.0); Immature Granulocytes # (auto) 0.04 K/uL (0.01-0.20); Immature Granulocytes % (auto) 0.5 %; Lymphocytes # (auto) 1.91 K/uL (1.20-3.40); Lymphocytes % (auto) 21.9 %; Mean Corpuscular Hemoglobin 27.8 pg (25.0-34.0); Mean Corpuscular Hgb Conc 32.4 g/dL (32.0-36.0); Mean Corpuscular Volume 85.8 fL (80.0-100.0); Mean Platelet Volume 10.5 fL (9.4-12.4); Monocytes # (auto) 0.76 K/uL (0.11-0.59); Monocytes % (auto) 8.7 %; Neutrophils % (auto) 58.4 %; Platelet Count 270 K/uL (130-400); RDW Coefficient of Variation 14.9 % (11.5-14.5); RDW Standard Deviation 47.1 fL (36.4-46.3); White Blood Count 8.72 K/ul (4.8-10.8)
[2023-07-09 07:17] LABS: BUN Creatinine Ratio 23.5 (10-20); Calcium 8.5 mg/dl (8.6-10.3); Creatinine Clr Calc Pharmacy 86.6 ml/min; Est GFR (African American) 96.7 ml/min; Est GFR (Non-African American) 83.5 ml/min; Potassium 4.1 mmol/L (3.5-5.1)
[2023-07-09 07:50] LABS: INR 1.9 (0.9-1.1)
[2023-07-09] MEDS: metOLazone 5 MG TABLET PO SCH (07:56)
[2023-07-09] MEDS: FINASTERIDE 5 MG TAB PO SCH (07:56)
[2023-07-09] MEDS: ASPIRIN 81 MG ECTAB PO SCH (07:56)
[2023-07-09] MEDS: CETIRIZINE HCL 10 MG TABLET PO SCH (07:57)
[2023-07-09] MEDS: buPROPion HCl 100 MG TABLET PO SCH (07:58)
[2023-07-09] MEDS: FLUTICASONE PROPIONATE NA SPR 16 GM BTL SCH (07:58)
[2023-07-09] MEDS: UMECLIDINIUM/VILANTEROL 62.5/25MCG 7 PUFFS/INHALER INH SCH (07:59)
[2023-07-09] MEDS: PANTOprazole 40 MG TAB PO SCH (11:14)
--- NOTE | 2023-07-09 14:14 | Hospitalist Progress Note ---
Date of Service July 09, 2023 Assessment & Plan (1) Pressure ulcer of right heel, stage 4: Plan: Patient presented for right foot pain x 2 days in the setting of having bilateral heel ulcers Sent in from home health/wound clinic for erythema and purulent drainage from his right heel ulcer, however no drainage noted here for culture collection Calcaneus x-ray revealed soft tissue swelling without evidence of osteomyelitis CRP, ESR ordered and are only minimally elevated Continue Daily wound care Continue Rocephin 2000 mg IV q24h and daptomycin for broad-spectrum coverage Follow blood cultures-no growth to date Checked arterial Dopplers-no significant stenoses Plan for MRI of the ankle/heels to further assess for osteomyelitis but unfortunately this cannot be done until Wednesday due to his MRI/staffing (2) Pressure ulcer of left heel, stage 4: Plan: As noted above (3) Elevated lactic acid level: Plan: Lactate 2.1-->2.4-->2.6 without improvement however he does not meet criteria for sepsis and was not hypotensive or hypoxic and therefore unclear what the cause of this elevation is (4) Tremor: Plan: Continue pramipexole (5) Atrial fibrillation: Plan: Paced rhythm on telemetry Continue warfarin; therapeutic goal range 2-3-INR today is 1.9 EKG on arrival showed ventricular paced rhythm at 73 bpm; QTc 546 (caution use of QT prolonging agents) (6) Chronic systolic congestive heart failure: Plan: Last echo on 02/25/2023 revealed LVEF at 30-35% Does not appear volume overloaded but blood pressures are soft CXR revealed cardiomegaly without evidence of pulmonary edema Continue Entresto Okay to resume Bumex and potassium supplementation, will hold home metolazone (7) Neuropathy: Plan: Patient reports burning sensation in his arms and legs when he misses oxycodone doses Continue oxycodone 10 mg q12h (8) Complex sleep apnea syndrome: Plan: Patient declined CPAP HS (9) Hypertension: Plan: Blood pressures were elevated but now little soft Continue Entresto, carvedilol, resume Bumex, hold metolazone (10) Coronary artery disease: Plan: With a history of stent in the RCA. No acute issues Continue aspirin, carvedilol, holding statin (11) ICD (implantable cardioverter-defibrillator) in place: Plan: Noted Plan Disposition: Continued stay in PCU Full code VTE PPx: On warfarin Admission and Anticipated Discharge Date Admission Date: July 08, 2023 Subjective Patient feeling well, has no complaints. I discussed his care with wound care nurse. He denies any fevers or chills, no nausea, no chest pain or shortness of breath Telemetry with paced rhythm and PVCs with rates in the 60s to 70s Physical Exam Constitutional: WD/WN, vitals as above Neck: trachea midline, no thyromegaly Respiratory: normal respiratory effort, lungs clear to auscultation Cardiovascular: Rate/Rhythm: regular rate and regular rhythm Heart Sounds: no murmur Extremities: + edema (Trace edema legs bilaterally) Gastrointestinal (Abdomen): normal bowel sounds, soft, nontender, no hepatosplenomegaly Musculoskeletal: Extremities: no cyanosis and no clubbing Skin: Feet both wrapped up and dressings that were just placed, not removed but reviewed pictures from wound care nurse on same date of service Neurologic: moves all extremities and awake; no focal motor deficits Psychiatric: A+Ox3, euthymic affect Results & Data Results & Data Vital Signs (Past 12 Hours) Vital Signs Temp Pulse Pulse Resp BP Pulse Ox O2 Del Method 07/09/23 11:48 36.9 C 64 18 109/72 91 Room Air 07/09/23 09:57 Room Air 07/09/23 09:54 72 07/09/23 07:44 36.5 C 77 18 112/70 91 Nasal Cannula 07/09/23 03:01 36.6 C 69 20 131/77 97 Nasal Cannula O2 Flow Rate 07/09/23 11:48 07/09/23 09:57 07/09/23 09:54 07/09/23 07:44 2 07/09/23 03:01 2 Laboratory Results CBC, BMP, lactate, CRP, LFTs, blood cultures reviewed PG Care Time/CCT Total # of Minutes Spent Total Time Spent with Patient: Total time spent is greater than 50% in coordination of care (as documented) at patient's floor/unit and/or counseling patient: Coding Level of Care Code 48042 SUB INP/OBS CARE 3/50MIN Diagnoses Pressure ulcer of right heel, stage 4 L89.614 Pressure ulcer of left heel, stage 4 L89.624 Elevated lactic acid level R79.89 Tremor R25.1 Paroxysmal atrial fibrillation I48.0 Atrial fibrillation type: paroxysmal Chronic systolic congestive heart failure I50.22 Neuropathy G62.9 Complex sleep apnea syndrome G47.31 Hypertension I10 Coronary artery disease I25.10 ICD (implantable cardioverter-defibrillator) in place Z95.810 (5) Atrial fibrillation Atrial fibrillation type: paroxysmal Qualified Code(s): I48.0 - Paroxysmal atrial fibrillation
--- NOTE | 2023-07-09 17:02 | XRay Report ---
ORBIT RADIOGRAPHS 3 VIEWS HISTORY: pre-MRI screening. COMPARISON: Facial bone CT December 21, 2018. FINDINGS: There are no radiopaque foreign bodies identified within the orbits. Multiple dental amalga ms are incidentally noted. IMPRESSION: No radiopaque foreign bodies identified within the orbits. ACT 112: Negative or not required by law. Electronically signed by: Adam Benson M.D. 07/09/2023 5:00 PM
--- NOTE | 2023-07-09 17:07 | Ultrasound Report ---
US arterial duplex bilateral lower extremity CLINICAL HISTORY: chronic heel ulcers,assess for peripheral arterial disease COMPARISON STUDY: None. FINDINGS: The right ankle-brachial index was calculated be 1.2 and the left ankle-brachial this was c alculated be 1.09. Scattered calcified plaque seen throughout the bilateral lower extremity arterial systems. Normal biphasic to triphasic waveforms and velocities seen throughout the bilateral lower ex tremity arterial system. No evidence for stenosis or occlusion. IMPRESSION: No significant stenosis or occlusion within the bilateral lower extremity arterial syste ms. ACT 112: Negative or not required by law. Electronically signed by: Lambert Hart M.D. 07/09/2023 5:06 PM
[2023-07-09] MEDS: WARFARIN SOD 5 MG TAB PO SCH (17:14)
--- NOTE | 2023-07-10 06:51 | Electrocardiogram Report ---
Test Reason : Blood Pressure : / mmHG Vent. Rate : 073 BPM Atrial Rate : 073 BPM P-R Int : 000 ms QRS Dur : 132 ms QT Int : 496 ms P-R-T Axes : 000 140 070 degrees QTc Int : 546 ms Ventricular-paced rhythm with frequent AV dual-paced complexes and with occasional Premature ventricu lar complexes Abnormal ECG When compared with ECG of 23-FEB-2023 09:04, Premature ventricular complexes are now Present Vent. rate has decreased BY 30 BPM Confirmed by Marcelino Barkley ([id number]) on 07/10/2023 6:51:25 AM Referred By: Confirmed By:Marcelino Barkley
[2023-07-10 07:43] LABS: Basophils # (auto) 0.05 K/uL (0.00-0.20); Basophils % (auto) 0.7 %; Eosinophils % (auto) 9.9 %; Hematocrit (blood only) 39.3 % (42.0-52.0); Hemoglobin 13.3 g/dl (14.0-18.0); Immature Granulocytes # (auto) 0.03 K/uL (0.01-0.20); Immature Granulocytes % (auto) 0.4 %; Lymphocytes # (auto) 1.83 K/uL (1.20-3.40); Mean Corpuscular Hemoglobin 28.1 pg (25.0-34.0); Mean Corpuscular Hgb Conc 33.8 g/dL (32.0-36.0); Mean Corpuscular Volume 83.1 fL (80.0-100.0); Mean Platelet Volume 10.5 fL (9.4-12.4); Monocytes # (auto) 0.59 K/uL (0.11-0.59); Monocytes % (auto) 8.4 %; Neutrophils # (auto) 3.85 K/uL (1.40-6.50); Neutrophils % (auto) 54.6 %; Platelet Count 274 K/uL (130-400); RDW Standard Deviation 45.5 fL (36.4-46.3); Red Blood Count 4.73 M/uL (4.70-6.10); White Blood Count 7.05 K/ul (4.8-10.8)
[2023-07-10] MEDS: BUMETANIDE 1 MG TAB PO SCH (07:49)
[2023-07-10 08:14] LABS: BUN Creatinine Ratio 17.3 (10-20); Calcium 9.2 mg/dl (8.6-10.3); Creatinine Clr Calc Pharmacy 75.1 ml/min; Est GFR (African American) 85.2 ml/min; Est GFR (Non-African American) 73.6 ml/min; Potassium 4.2 mmol/L (3.5-5.1)
[2023-07-10 08:39] LABS: INR 1.9 (0.9-1.1); Prothrombin Time 19.9 Seconds (9.0-12.0)
--- NOTE | 2023-07-10 19:55 | Hospitalist Progress Note ---
Date of Service July 10, 2023 Assessment & Plan (1) Pressure ulcer of right heel, stage 4: Plan: Patient presented for right foot pain x 2 days in the setting of having bilateral heel ulcers Sent in from home health/wound clinic for erythema and purulent drainage from his right heel ulcer Calcaneus x-ray revealed soft tissue swelling without evidence of osteomyelitis CRP, ESR ordered and are only minimally elevated Continue Daily wound care Continue Rocephin 2000 mg IV q24h and daptomycin for broad-spectrum coverage Follow blood cultures-no growth to date Check right heel wound surface swab Checked arterial Dopplers-no significant stenoses Plan for MRI of the ankle/heels to further assess for osteomyelitis but unfortunately this cannot be done until Wednesday due to his MRI/staffing Consult Podiatry to see about heel debridement-typically would not need to hold anticoagulation for this (2) Pressure ulcer of left heel, stage 4: Plan: As noted above (3) Elevated lactic acid level: Plan: Lactate 2.1-->2.4-->2.6 without improvement however he does not meet criteria for sepsis and was not hypotensive or hypoxic and therefore unclear what the cause of this elevation is (4) Tremor: Plan: Continue pramipexole (5) Atrial fibrillation: Plan: Paced rhythm on telemetry Continue warfarin; therapeutic goal range 2-3-INR today is 1.9 EKG on arrival showed ventricular paced rhythm at 73 bpm; QTc 546 (caution use of QT prolonging agents) No need for further tele monitoring (6) Chronic systolic congestive heart failure: Plan: Last echo on 02/25/2023 revealed LVEF at 30-35% Does not appear volume overloaded but blood pressures are soft CXR revealed cardiomegaly without evidence of pulmonary edema Continue Entresto COntinue Bumex but continue to hold home metolazone due to soft BPs (7) Neuropathy: Plan: Patient reports burning sensation in his arms and legs when he misses oxycodone doses Continue oxycodone 10 mg q12h (8) Complex sleep apnea syndrome: Plan: Patient declined CPAP HS (9) Hypertension: Plan: Blood pressures were elevated but now little soft Continue Entresto, carvedilol, Bumex, hold metolazone (10) Coronary artery disease: Plan: With a history of stent in the RCA. No acute issues Continue aspirin, carvedilol, holding statin while on Dapto (11) ICD (implantable cardioverter-defibrillator) in place: Plan: Noted Plan Disposition: Continued stay but downgrade to med/surg Full code VTE PPx: On warfarin Admission and Anticipated Discharge Date Admission Date: July 08, 2023 Subjective Pt reports feeling a little lightheaded with standing, otherwise no concerns Tele with paced rhythm, rates 60-70s Physical Exam Constitutional: WD/WN, vitals as above Neck: trachea midline, no thyromegaly Respiratory: normal respiratory effort, lungs clear to auscultation Cardiovascular: Rate/Rhythm: regular rate and regular rhythm Heart Sounds: no murmur Extremities: + edema (1+ edema legs bilaterally) Gastrointestinal (Abdomen): normal bowel sounds, soft, nontender, no hepatosplenomegaly Musculoskeletal: Extremities: no cyanosis and no clubbing Skin: + ulcer (bilat 4x3cm full skin thickness ulcers on heels,scant drainange) Neurologic: moves all extremities and awake; no focal motor deficits Psychiatric: A+Ox3, euthymic affect Results & Data Results & Data Vital Signs (Past 12 Hours) Vital Signs Temp Pulse Pulse Resp BP Pulse Ox O2 Del Method 07/10/23 16:00 74 07/10/23 15:38 36.6 C 68 18 120/66 92 Room Air 07/10/23 11:25 36.4 C L 74 18 113/68 94 Nasal Cannula 07/10/23 08:00 Room Air 07/10/23 08:00 71 Laboratory Results CBC, BMP, INR, blood cxs reviewed PG Care Time/CCT Total # of Minutes Spent Total Time Spent with Patient: Total time spent is greater than 50% in coordination of care (as documented) at patient's floor/unit and/or counseling patient: Coding Level of Care Code 01803 SUB INP/OBS CARE 2/35MIN Diagnoses Pressure ulcer of right heel, stage 4 L89.614 Pressure ulcer of left heel, stage 4 L89.624 Elevated lactic acid level R79.89 Tremor R25.1 Paroxysmal atrial fibrillation I48.0 Atrial fibrillation type: paroxysmal Chronic systolic congestive heart failure I50.22 Neuropathy G62.9 Complex sleep apnea syndrome G47.31 Hypertension I10 Coronary artery disease I25.10 ICD (implantable cardioverter-defibrillator) in place Z95.810 (5) Atrial fibrillation Atrial fibrillation type: paroxysmal Qualified Code(s): I48.0 - Paroxysmal atrial fibrillation
[2023-07-11 07:35] LABS: Calcium 9.4 mg/dl (8.6-10.3); Magnesium 2.1 mg/dl (1.7-2.4); Potassium 4.2 mmol/L (3.5-5.1)
[2023-07-11 07:41] LABS: Creatinine Clr Calc Pharmacy 73.6 ml/min; Est GFR (African American) 83.2 ml/min; Est GFR (Non-African American) 71.8 ml/min
[2023-07-11 08:39] LABS: Basophils # (auto) 0.06 K/uL (0.00-0.20); Basophils % (auto) 0.7 %; Eosinophils # (auto) 0.74 K/uL (0.00-0.50); Eosinophils % (auto) 8.9 %; Hematocrit (blood only) 40.6 % (42.0-52.0); Hemoglobin 13.8 g/dl (14.0-18.0); Immature Granulocytes # (auto) 0.05 K/uL (0.01-0.20); Immature Granulocytes % (auto) 0.6 %; Lymphocytes # (auto) 2.28 K/uL (1.20-3.40); Lymphocytes % (auto) 27.3 %; Mean Corpuscular Hemoglobin 28.2 pg (25.0-34.0); Mean Platelet Volume 10.2 fL (9.4-12.4); Monocytes # (auto) 0.77 K/uL (0.11-0.59); Monocytes % (auto) 9.2 %; Neutrophils # (auto) 4.45 K/uL (1.40-6.50); Neutrophils % (auto) 53.3 %; Platelet Count 294 K/uL (130-400); RDW Standard Deviation 45.3 fL (36.4-46.3); Red Blood Count 4.89 M/uL (4.70-6.10); White Blood Count 8.35 K/ul (4.8-10.8)
[2023-07-11 09:02] LABS: INR 1.8 (0.9-1.1); Prothrombin Time 19.4 Seconds (9.0-12.0)
[2023-07-11] MEDS: PRAMIPEXOLE 0.375 MG PO SCH (10:31)
--- NOTE | 2023-07-11 14:08 | Podiatry Consultation ---
Date of Consultation July 11, 2023 Assessment & Plan (1) Neuropathy: (2) Cellulitis: Site of cellulitis: unspecified site Qualified Code(s): L03.90 - Cellulitis, unspecified (3) Pressure ulcer of left heel, stage 4: (4) Pressure ulcer of right heel, stage 4: Plan - Patient was examined and evaluated. -His wound dressings were left intact but his chart was reviewed, including imaging from the wound care team -We discussed that his Doppler exams are encouraging, the likely falsely elevated due to noncompressible vessels. -He would benefit from a vascular surgery consult/input, especially given his failure to heal these wounds with aggressive outpatient wound care. Consider consulting Dr. Huang or Dr. Polk. -We will plan any surgical intervention based on the MRI findings. We did discuss that these could include anything from continued outpatient wound care, to incision and drainage of any underlying abscesses, or partial calcanectomy if there is evidence of significant osteomyelitis. -This MRI should be performed tomorrow and will help clear up future treatment options. -Thank you for the consult, we look forward to helping provide this patient with great care while inpatient. History of Present Illness Reason for Consultation: B/l calcaneus ulcerations, right worse than left Attending Physician: Maria Teresa Moses MD History of Present Illness patient was seen at bedside. He states that he has bilateral heel ulcerations that he has been dealing with for the last several months. He has been in wound care outpatient for these and has done well overall, though recently he developed increasing local signs of infection. He was sent to the hospital for evaluation of underlying osteomyelitis or abscess formation. He states that he has done well for the last couple of days with IV antibiotics on this hospitalization. He denies any systemic signs of infection. He denies any recent medical history change. He has developed these ulcers over the last few months while in rehab, though now has returned to home and his only performed outpatient wound care therapy. He does admit to wearing his offloading boots to protect his heels while resting. He also has heel offloading Darco shoes for ambulating. Allergies Allergy/AdvReac Type Severity Reaction Status Date / Time bee venom protein (honey bee) Allergy Severe SWELLING, Verified 07/08/23 16:16 SOB Penicillins Allergy Severe SWELLING, Verified 07/08/23 16:16 DIFFICULTY BREATHING lidocaine Allergy Mild RASH Verified 07/08/23 16:16 cefdinir AdvReac Severe Vomiting Verified 07/08/23 16:16 hydrocodone AdvReac Mild nausea Verified 07/08/23 16:16 oxycodone AdvReac Mild nausea-SLOW Verified 07/08/23 16:16 RELEASE IS OK cefdinir AdvReac Severe Vomiting Uncoded 07/08/23 16:16 Home Medications Medication Instructions Recorded Confirmed Type albuterol sulfate 90 mcg/actuation 2 puffs inhalation Q6H PRN 12/01/18 07/08/23 History aerosol inhaler Shortness Of Breath Or Wheezing bupropion HCl 100 mg tablet 100 mg PO BID 12/01/18 07/08/23 History docusate sodium 100 mg capsule 100 mg PO BID 12/01/18 07/08/23 History finasteride 5 mg tablet 5 mg PO QAM 12/01/18 07/08/23 History aspirin 81 mg tablet,delayed 81 mg PO QAM 12/21/18 07/08/23 History release mometasone 50 mcg/actuation nasal 2 spray intranasal BID 12/21/18 07/08/23 History spray (Nasonex) oxycodone 10 mg tablet 10 mg PO Q12H 12/21/18 07/08/23 History sennosides 8.6 mg tablet 8.6 mg PO BID 12/21/18 07/08/23 History white petrolatum-mineral oil 56.8 1 applic ophthalmic (eye) HS 12/21/18 07/08/23 History %-42.5 % eye ointment (Refresh Lacri-Lube) metoclopramide HCl 10 mg tablet 5 mg PO Q8H 09/04/19 07/08/23 History potassium chloride 20 mEq 20 meq PO BID #200 tabs 01/05/20 07/08/23 Rx tablet,extended release sacubitril 49 mg-valsartan 51 mg 1 tab PO BID 11/25/20 07/08/23 History tablet pantoprazole 40 mg tablet,delayed 80 mg PO .@NOON 03/10/21 07/08/23 History release rosuvastatin 10 mg tablet (Crestor) 10 mg PO QPM 12/03/21 07/08/23 History tiotropium 2.5 mcg-olodaterol 2.5 2 puff inhalation QAM 12/02/22 07/08/23 History mcg/actuation mist for inhalation (Stiolto Respimat) lanolin-mineral oil-NaCl-w.pet 1 ea topical Q8H 02/23/23 07/08/23 History lotion nystatin 100,000 unit/gram topical 1 applic topical BID 02/23/23 07/08/23 History powder metolazone 5 mg tablet 10 mg (2 x 5 mg) PO DAILY #30 tabs 03/09/23 07/08/23 Rx sucralfate 100 mg/mL oral 1 g (10 mL) PO QID #28 mL 03/09/23 07/08/23 Rx suspension carvedilol 25 mg tablet 12.5 mg PO BID 04/06/23 07/08/23 History warfarin 5 mg tablet 5 mg PO . @ MN,WD,FR,ST,SN #100 04/16/23 07/08/23 Rx tabs bumetanide 1 mg tablet 1 mg PO QAM 05/17/23 07/08/23 History cetirizine 10 mg tablet 10 mg PO DAILY 05/17/23 07/08/23 History pramipexole 0.375 mg 0.375 mg PO QAM Parkinsonism #90 07/07/23 07/08/23 Rx tablet,extended release 24 hr tabs (Mirapex ER) epinephrine 0.3 mg/0.3 mL 0.3 mg IM DIRECTED PRN sEVERE 07/08/23 07/08/23 History injection, auto-injector ALLERGIC REACTION vitamins A,C,A-qmxg-xeyjhs 2,148 2 tab PO DAILY 07/08/23 07/08/23 History mcg-113 mg-45 mg-17.4 mg tablet (PreserVision AREDS) Patient History Medical History ICD (implantable cardioverter-defibrillator) in place Neuropathy Centrilobular emphysema Complex sleep apnea syndrome NYHA class 4 acute on chronic systolic heart failure History of kidney stones Presence of combination internal cardiac defibrillator (ICD) and pacemaker first placed 2010 @ [facility] replaced in 2014 & 2021 @ [facility]--biventricular [employer]. reports last check 11/25/22. Emphysema lung Legally blind Spasticity upper limbs Cervicogenic headache Atherogenic dyslipidemia Chronic back pain History of urinary self-catheterization self caths every other night History of DVT of lower extremity 2010 Macular degeneration Hearing deficit Depression Migraine CAD (coronary artery disease) s/p stent 2010 Myocardial Infarction 10/2010--follows with Dr. Abreu Atrial fibrillation on warfarin--follows with Dr. Abreu Pulmonary embolism 1992 and 2010 after heart attack--follows with Dr. Abreu Asthma inhaler prn Sleep apnea bipap Chronic systolic congestive heart failure EF 25-30% BPH loc w urin obs/LUTS Elevated PSA Ischemic cardiomyopathy Euvolemic at 11/23/22 cardio appt Balance problem Warfarin anticoagulation Surgical History S/P epidural steroid injection History of foot surgery plantar fasciitis History of open reduction and internal fixation (ORIF) procedure left foot--hardware removed History of prostate biopsy x3--precancerous, just monitoring for now History of prostate surgery 07/2016--[facility] prostate vaproization History of cystoscopy multiple History of colonoscopy with polypectomy History of esophagogastroduodenoscopy (EGD) History of right inguinal hernia repair x3 History of Khari fundoplication History of cholecystectomy History of tooth extraction History of eye surgery right--macular degeneration History of bilateral cataract extraction History of cardiac cath 10/2010 @ [facility]--1 stent placed Family History Son Family history of diabetes mellitus Other Family history non-contributory No family history of adverse response to anesthesia Social History Smoking Status: Former smoker Second Hand Exposure: Yes (father smoked); Do You Dip or Chew Tobacco: No; Tobacco Cessation Education Requested by Patient: No Hx Alcohol Use: No Hx Substance Use: No Preferred Language: Kyrgyz Communication Ability: Effective Healthcare Insurance Sales Agent Required: No Beliefs That Will Affect Care: None marital status: Current Living Situation: Alone current occupational status: retired Feels Safe at Home: Yes Safety Concerns: Feels Safe At This Time Assistive Devices: Bedside Commode, Walker, Wheelchair and Other Assistive Devices Comment: Pt. wears BiPap at home, not with him at this time Review of Systems Review of Systems: All systems reviewed & are unremarkable except as noted in HPI & below Constitutional: no fever, no chills, no sweats and no weakness Eyes: no discharge and no eye pain Ear, Nose, Mouth, Throat: no nasal congestion and no nasal discharge Respiratory: no cough, no chest congestion and no wheezing Cardiovascular: + chest pain and + claudication; no calf pain Gastrointestinal: no nausea and no vomiting Musculoskeletal: + stiffness and + limited range of motio n; no back pain Integumentary: + non-healing lesions and + wounds Neurologic: + gait abnormality, + unsteadiness, + nu mbness and + paresthesia Psychiatric: no behavioral changes Physical Exam Physical Exam: B/L lower extremity exam: Stage 4 ulcerations noted to plantar aspect of heels. Mepitel dressing intact with no bleeding or drainage currently, but recently dressed. DP/Pt pulses non palpable. CFT brisk to toes. Advanced trophic changes noted to feet overall with thin skin, loss of hair growth, dystrophy of nails, and cold feet. Ulcers are documented in imaging in chart with depth not assessed at this time due to his positioning. Arthritic changes noted throughout the forefoot with decreased ROM to midfoot and ankle. Muscle strength 4/5 for all muscle groups. No ascending cellulitis. No profound malodor. Constitutional: WD/WN, vitals as above well developed and well nourished; no acute distress Eyes: PERRL, conjunctivae normal, anicteric sclerae ENMT: external ear and nose normal, oropharynx normal Neck: trachea midline, no thyromegaly Respiratory: normal respiratory effort, lungs clear to auscultation Cardiovascular: RRR, no murmur, no edema Vessels: + abnormal peripheral pulses, + posterior tibial pulses abnormal and + dorsalis pedis pulses abnormal Musculoskeletal: no cyanosis or clubbing, extremities motor strength 5/5 Extremities: + limited ROM of extremities and + leg externally rotated Skin: + ulcer, + wound, + skin atrophy and + h air thinning Neurologic: moves all extremities; + abnormal sensation to monofilament and no focal motor deficits Psychiatric: A+Ox3, euthymic affect Results & Data Vital Signs (Past 12 Hours) Vital Signs Temp Pulse Resp BP BP Pulse Ox O2 Del Method 07/11/23 14:03 36.4 C L 75 16 92/52 L 93 Room Air 07/11/23 07:56 73 18 94 Room Air 07/11/23 07:26 36.3 C L 59 L 16 116/73 96 Room Air
--- NOTE | 2023-07-11 18:16 | Hospitalist Progress Note ---
Date of Service July 11, 2023 Assessment & Plan (1) Pressure ulcer of right heel, stage 4: Plan: Patient presented for right foot pain x 2 days in the setting of having bilateral heel ulcers Sent in from home health/wound clinic for erythema and purulent drainage from his right heel ulcer. No fevers, no sepsis Calcaneus x-ray revealed soft tissue swelling without evidence of osteomyelitis CRP, ESR ordered and are only minimally elevated Checked arterial Dopplers-no significant stenoses, however Podiatry recommending Vascular consult to see if perhaps JAG falsely elevated due to calcified vessels-assess for Vascular intervention due to non-healing ulcers Continue Daily wound care Continue Rocephin 2000 mg IV q24h and daptomycin for broad-spectrum coverage Follow blood cultures-no growth to date Right heel wound surface swab-Gram stain moderate WBCs,no organisms seen, culture pending Plan for MRI of the ankle/heels to further assess for osteomyelitis but unfortunately this cannot be done until Wednesday due to his MRI/staffing Consult Podiatry appreciated--> awaiting Vascular input and MRI ankles on Wednesday to determine surgical need No need to hold anticoagulation at this point unless requested by Podiatry for a procedure (2) Pressure ulcer of left heel, stage 4: Plan: As noted above (3) Elevated lactic acid level: Plan: Lactate 2.1-->2.4-->2.6 without improvement however he does not meet criteria for sepsis and was not hypotensive or hypoxic and therefore unclear what the cause of this elevation is (4) Tremor: Plan: Continue pramipexole (5) Atrial fibrillation: Plan: Paced rhythm on telemetry Continue warfarin; therapeutic goal range 2-3-INR today is 1.8 EKG on arrival showed ventricular paced rhythm at 73 bpm; QTc 546 (caution use of QT prolonging agents) No need for further tele monitoring-downgraded (6) Chronic systolic congestive heart failure: Plan: Last echo on 02/25/2023 revealed LVEF at 30-35% Does not appear volume overloaded but blood pressures are soft CXR revealed cardiomegaly without evidence of pulmonary edema Continue Entresto Continue Bumex but continue to hold home metolazone due to soft BPs Weight stable (7) Neuropathy: Plan: Patient reports burning sensation in his arms and legs when he misses oxycodone doses Continue oxycodone 10 mg q12h (8) Complex sleep apnea syndrome: Plan: Patient declined CPAP HS (9) Hypertension: Plan: Blood pressures were elevated but now little soft Continue Entresto, carvedilol, Bumex, hold metolazone (10) Coronary artery disease: Plan: With a history of stent in the RCA. No acute issues Continue aspirin, carvedilol, holding statin while on Dapto (11) ICD (implantable cardioverter-defibrillator) in place: Plan: Noted Plan Disposition: Continued stay med/surg Full code VTE PPx: On warfarin, follow INR Admission and Anticipated Discharge Date Admission Date: July 10, 2023 Subjective Feels lightheaded with standing occasionally. Is moving bowels, no trouble with eating. No other concerns Physical Exam Constitutional: WD/WN, vitals as above Neck: trachea midline, no thyromegaly Respiratory: normal respiratory effort, lungs clear to auscultation Cardiovascular: Rate/Rhythm: regular rate and regular rhythm Heart Sounds: no murmur Extremities: + edema (1+ edema legs bilaterally) Gastrointestinal (Abdomen): normal bowel sounds, soft, nontender, no hepatosplenomegaly Musculoskeletal: Extremities: no cyanosis and no clubbing Neurologic: moves all extremities and awake; no focal motor deficits Psychiatric: A+Ox3, euthymic affect Results & Data Results & Data Vital Signs (Past 12 Hours) Vital Signs Temp Pulse Resp BP BP Pulse Ox O2 Del Method 07/11/23 17:45 85 17 99/58 L 92 Room Air 07/11/23 14:29 74 18 84/48 L 96/60 L 93 Room Air 07/11/23 14:03 36.4 C L 75 16 92/52 L 93 Room Air 07/11/23 07:56 73 18 94 Room Air 07/11/23 07:26 36.3 C L 59 L 16 116/73 96 Room Air Laboratory Results CBC, INR, BMP, blood cultures, wound cx reviewed PG Care Time/CCT Total # of Minutes Spent Total Time Spent with Patient: Total time spent is greater than 50% in coordination of care (as documented) at patient's floor/unit and/or counseling patient: Coding Level of Care Code 86256 SUB INP/OBS CARE 2/35MIN Diagnoses Pressure ulcer of right heel, stage 4 L89.614 Pressure ulcer of left heel, stage 4 L89.624 Elevated lactic acid level R79.89 Tremor R25.1 Paroxysmal atrial fibrillation I48.0 Atrial fibrillation type: paroxysmal Chronic systolic congestive heart failure I50.22 Neuropathy G62.9 Complex sleep apnea syndrome G47.31 Hypertension I10 Coronary artery disease I25.10 ICD (implantable cardioverter-defibrillator) in place Z95.810 (5) Atrial fibrillation Atrial fibrillation type: paroxysmal Qualified Code(s): I48.0 - Paroxysmal atrial fibrillation
[2023-07-12 07:44] LABS: BUN Creatinine Ratio 30.3 (10-20); Calcium 9.2 mg/dl (8.6-10.3); Creatinine Clr Calc Pharmacy 60.3 ml/min; Est GFR (African American) 65.4 ml/min; Est GFR (Non-African American) 56.4 ml/min; Potassium 3.7 mmol/L (3.5-5.1)
[2023-07-12 07:50] LABS: INR 1.7 (0.9-1.1); Prothrombin Time 18.2 Seconds (9.0-12.0)
--- NOTE | 2023-07-12 09:48 | Consultation ---
Date of Consultation July 12, 2023 Assessment & Plan (1) Peripheral arterial disease: Pt with mild, diffuse PAD on US and palpable BLE pulses. Pt states he was told his heel ulcers were healing, but slowly, prior to this admission. No indications for vascular surgical intervention at this time. Recommend continue local wound care and heel elevation and offloading. Pt agreeable. also present for exam and conversation. Will be happy to see pt in follow up if further concerns develop. Please call if needed. History of Present Illness Reason for Consultation: PAD Attending Physician: Saúl Dill MD History of Present Illness 78 yo m with hx of chf, a fib, HTN, CAD with ICD, parkinsonism, neuropathy, foot drop, CKD, agent orange exposure, dyslipidemia, ischemic cardiomyopathy, GERD, COPD, legally blind, admitted with BLE heel ulceration infections, seen in consultation today for PAD. Pt states he was in hospital last fall and developed heel ulcerations noted after discharge to [facility] for rehab. States he was d/c home in March 2023, and has been caring for the wounds at home with heel elevation and daily dressing changes. Is following with [facility] for [facility] Care for these. Home RN noted increased erythema and drainage and sent pt to [facility]. Pt denies fever, but states has been having pain in his lower legs, which is unusual for him d/t severe neuropathy. Denies NEAL, chest pain, SOB, abd pain, N/V, rest pain, claudication, other complaints. Does not ambulate fast or far enough to claudicate. Lives at home with his of 54 years. Denies any hx of PAD in past. BLE arterial US demonstrates mild diffuse PAD, without any focal stenoses. Allergies Allergy/AdvReac Type Severity Reaction Status Date / Time bee venom protein (honey bee) Allergy Severe SWELLING, Verified 07/08/23 16:16 SOB Penicillins Allergy Severe SWELLING, Verified 07/08/23 16:16 DIFFICULTY BREATHING lidocaine Allergy Mild RASH Verified 07/08/23 16:16 cefdinir AdvReac Severe Vomiting Verified 07/08/23 16:16 hydrocodone AdvReac Mild nausea Verified 07/08/23 16:16 oxycodone AdvReac Mild nausea-SLOW Verified 07/08/23 16:16 RELEASE IS OK cefdinir AdvReac Severe Vomiting Uncoded 07/08/23 16:16 Home Medications Medication Instructions Recorded Confirmed Type albuterol sulfate 90 mcg/actuation 2 puffs inhalation Q6H PRN 12/01/18 07/08/23 History aerosol inhaler Shortness Of Breath Or Wheezing bupropion HCl 100 mg tablet 100 mg PO BID 12/01/18 07/08/23 History docusate sodium 100 mg capsule 100 mg PO BID 12/01/18 07/08/23 History finasteride 5 mg tablet 5 mg PO QAM 12/01/18 07/08/23 History aspirin 81 mg tablet,delayed 81 mg PO QAM 12/21/18 07/08/23 History release mometasone 50 mcg/actuation nasal 2 spray intranasal BID 12/21/18 07/08/23 History spray (Nasonex) oxycodone 10 mg tablet 10 mg PO Q12H 12/21/18 07/08/23 History sennosides 8.6 mg tablet 8.6 mg PO BID 12/21/18 07/08/23 History white petrolatum-mineral oil 56.8 1 applic ophthalmic (eye) HS 12/21/18 07/08/23 History %-42.5 % eye ointment (Refresh Lacri-Lube) metoclopramide HCl 10 mg tablet 5 mg PO Q8H 09/04/19 07/08/23 History potassium chloride 20 mEq 20 meq PO BID #200 tabs 01/05/20 07/08/23 Rx tablet,extended release sacubitril 49 mg-valsartan 51 mg 1 tab PO BID 11/25/20 07/08/23 History tablet pantoprazole 40 mg tablet,delayed 80 mg PO .@NOON 03/10/21 07/08/23 History release rosuvastatin 10 mg tablet (Crestor) 10 mg PO QPM 12/03/21 07/08/23 History tiotropium 2.5 mcg-olodaterol 2.5 2 puff inhalation QAM 12/02/22 07/08/23 History mcg/actuation mist for inhalation (Stiolto Respimat) lanolin-mineral oil-NaCl-w.pet 1 ea topical Q8H 02/23/23 07/08/23 History lotion nystatin 100,000 unit/gram topical 1 applic topical BID 02/23/23 07/08/23 History powder metolazone 5 mg tablet 10 mg (2 x 5 mg) PO DAILY #30 tabs 03/09/23 07/08/23 Rx sucralfate 100 mg/mL oral 1 g (10 mL) PO QID #28 mL 03/09/23 07/08/23 Rx suspension carvedilol 25 mg tablet 12.5 mg PO BID 04/06/23 07/08/23 History warfarin 5 mg tablet 5 mg PO . @ MN,WD,FR,ST,SN #100 04/16/23 07/08/23 Rx tabs bumetanide 1 mg tablet 1 mg PO QAM 05/17/23 07/08/23 History cetirizine 10 mg tablet 10 mg PO DAILY 05/17/23 07/08/23 History pramipexole 0.375 mg 0.375 mg PO QAM Parkinsonism #90 07/07/23 07/08/23 Rx tablet,extended release 24 hr tabs (Mirapex ER) epinephrine 0.3 mg/0.3 mL 0.3 mg IM DIRECTED PRN sEVERE 07/08/23 07/08/23 History injection, auto-injector ALLERGIC REACTION vitamins A,C,H-ohzn-jcjebv 2,148 2 tab PO DAILY 07/08/23 07/08/23 History mcg-113 mg-45 mg-17.4 mg tablet (PreserVision AREDS) Patient History Medical History ICD (implantable cardioverter-defibrillator) in place Neuropathy Centrilobular emphysema Complex sleep apnea syndrome NYHA class 4 acute on chronic systolic heart failure History of kidney stones Presence of combination internal cardiac defibrillator (ICD) and pacemaker first placed 2010 @ [facility] replaced in 2014 & 2021 @ [facility]--biventricular [employer]. reports last check 11/25/22. Emphysema lung Legally blind Spasticity upper limbs Cervicogenic headache Atherogenic dyslipidemia Chronic back pain History of urinary self-catheterization self caths every other night History of DVT of lower extremity 2010 Macular degeneration Hearing deficit Depression Migraine CAD (coronary artery disease) s/p stent 2010 Myocardial Infarction 10/2010--follows with Dr. Abreu Atrial fibrillation on warfarin--follows with Dr. Abreu Pulmonary embolism 1992 and 2010 after heart attack--follows with Dr. Nydegger Asthma inhaler prn Sleep apnea bipap Chronic systolic congestive heart failure EF 25-30% BPH loc w urin obs/LUTS Elevated PSA Ischemic cardiomyopathy Euvolemic at 11/23/22 cardio appt Balance problem Warfarin anticoagulation Surgical History S/P epidural steroid injection History of foot surgery plantar fasciitis History of open reduction and internal fixation (ORIF) procedure left foot--hardware removed History of prostate biopsy x3--precancerous, just monitoring for now History of prostate surgery 07/2016--[facility] prostate vaproization History of cystoscopy multiple History of colonoscopy with polypectomy History of esophagogastroduodenoscopy (EGD) History of right inguinal hernia repair x3 History of Khari fundoplication History of cholecystectomy History of tooth extraction History of eye surgery right--macular degeneration History of bilateral cataract extraction History of cardiac cath 10/2010 @ [facility]--1 stent placed Family History Son Family history of diabetes mellitus Other Family history non-contributory No family history of adverse response to anesthesia Social History Smoking Status: Former smoker Second Hand Exposure: Yes (father smoked); Do You Dip or Chew Tobacco: No; Tobacco Cessation Education Requested by Patient: No Hx Alcohol Use: No Hx Substance Use: No Preferred Language: Monegasque Communication Ability: Effective Display Decorator Required: No Beliefs That Will Affect Care: None marital status: Current Living Situation: Alone current occupational status: retired Feels Safe at Home: Yes Safety Concerns: Feels Safe At This Time Assistive Devices: Bedside Commode, Walker, Wheelchair and Other Assistive Devices Comment: Pt. wears BiPap at home, not with him at this time Review of Systems Review of Systems: All systems reviewed & are unremarkable except as noted in HPI & below Physical Exam Constitutional: WD/WN, vitals as above + obese, cooperative and comfortable; not in distress ENMT: Ears: no hearing impairment Neck: trachea midline Respiratory: normal respiratory effort, lungs clear to auscultation Auscultation: + diminished lung sounds Cardiovascular: Rate/Rhythm: + irregularly irregular Vessels: femoral pulses present (+3 BLE), posterior tibial pulses present (+2 RLE, +1 LLE) and dorsalis pedis pulses present (+2 BLE); + abnormal peripheral pulses Extremities: normal capillary refill and + edema (+2 BLE) Gastrointestinal (Abdomen): Inspection/Auscultation: abdomen normal to inspection and normal bowel sounds Percussion/Palpation: abdomen soft; abdomen nontender Musculoskeletal: no cyanosis or clubbing, extremities motor strength 5/5 (poor toe motion BLE d/t foot drop.) Skin: no rashes, warm and dry + wound (BL posterior heels, deep tissue wounds) Neurologic: moves all extremities and awake; no focal motor deficits and not confused Psychiatric: A+Ox3, euthymic affect Results & Data Vital Signs (Past 12 Hours) Vital Signs Temp Pulse Pulse Resp BP Pulse Ox O2 Del Method 07/12/23 08:00 36.7 C 64 14 114/74 95 Room Air 07/12/23 07:45 Nasal Cannula 07/12/23 07:32 36.6 C 61 17 132/73 94 Room Air O2 Flow Rate 07/12/23 08:00 07/12/23 07:45 2 07/12/23 07:32
[2023-07-12] MEDS: GADOBUTROL 65ML VIAL IV ONE (13:57)
--- NOTE | 2023-07-12 14:40 | Magnetic Resonance Report ---
MR ankle LT wo/w con HISTORY: heel ulcer,assess for osteomyelitis TECHNIQUE: Multiplanar multisequence MRI of the left ankle was performed without contrast according t o standard departmental protocol. COMPARISON STUDY: Left calcaneus radiograph 04/06/2023. FINDINGS: There is a 4 cm skin ulceration within the posterior medial aspect of the heel. There is un derlying subcutaneous edema and enhancement suggestive of a cellulitis. No loculated fluid collection s to suggest an abscess. No cortical destruction identified. There is a small focus of marrow edema a nd enhancement along the plantar aspect of the calcaneus best seen on sagittal image 16. This is ravi cent to the plantar fascia and could be reactive to the a mild plantar fasciitis rather than an ostei tis. No abnormal T1 signal to confirm the presence of an osteomyelitis at this time. Subcutaneous osvaldo ma seen throughout the ankle and hindfoot. No fracture or dislocation. The flexor, extensor, and Achi lles tendons are intact. Medial and lateral stabilizing ligaments are maintained. There is mild tendi nopathy of the peroneus brevis. 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 IMPRESSION: 1. A 4 cm skin ulceration at the posterior medial aspect of the heel. 2. No evidence for osteomyelitis within the calcaneus. 3. Small focus of marrow edema and enhancement along the plantar aspect of the calcaneus. This is lik kaleigh reactive to the adjacent mild plantar fasciitis. A low-grade osteitis is also considered in the d ifferential diagnosis but considered less likely. 4. 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 ACT 112: Negative or not required by law. Electronically signed by: Lambert Hart M.D. 07/12/2023 2:38 PM
--- NOTE | 2023-07-12 14:41 | Hospitalist Progress Note ---
Date of Service July 12, 2023 Assessment & Plan (1) Pressure ulcer of right heel, stage 4: Plan: Podiatry consultation and recommendations appreciated. MRI scan results pending. No routine x-ray evidence of osteomyelitis. He remains on Rocephin and daptomycin. Arterial duplex study of bilateral legs negative for significant disease. Vascular surgery consultation appreciated. No intervention required at this time. (2) Pressure ulcer of left heel, stage 4: Plan: As noted above (3) Elevated lactic acid level: Plan: Present on admission. He does not appear to be septic (4) Tremor: Plan: Stable. Continue pramipexole (5) Atrial fibrillation: Plan: Paced rhythm on telemetry. Continue Coumadin therapy. Daily INR (6) Chronic systolic congestive heart failure: Plan: Stable. Known ejection fraction of 30 to 35%. Monitor intake and output. Continue current medical management. (7) Neuropathy: Plan: Stable. Continue oxycodone 10 mg q12h (8) Complex sleep apnea syndrome: Plan: Stable. Patient declined CPAP HS (9) Hypertension: Plan: Stable. Continue Entresto, carvedilol, Bumex (10) Coronary artery disease: Plan: With a history of stent in the RCA. Stable. Continue aspirin, carvedilol. Holding statin while on Dapto Plan To be determined pending results of MRI scan Admission and Anticipated Discharge Date Admission Date: July 10, 2023 Subjective Alert and oriented. No distress. His is at the bedside. Awaiting MRI results of both heel ulcers. Vascular surgery consultation appreciated. No intervention indicated at this time. Arterial duplex studies of both legs negative for any significant stenosis. INR today, July 11, is 1.7. Appreciate podiatry consultation and recommendations. He remains on Rocephin and daptomycin Review of Systems 2 Review of Systems: Constitutional-no fever or chills ENT-no blurred vision, no double vision, no epistaxis, no sore throat Respiratory-no cough, no wheezing, no shortness of breath Cardiac-no palpitations, no chest pain, no syncope GI-no nausea, vomiting, diarrhea, melena, hematochezia -no urinary retention, no urinary incontinence, no dysuria, no hematuria Musculoskeletal-no joint pain, no muscle tenderness. Bilateral heel ulcerations noted Skin-no bruising, no rashes, no pruritus Neuro-no isolated weakness, no paresthesia Psych-no depression, no anxiety Physical Exam 2 Physical Exam: General-alert and oriented x3, no fever, no chills HEENT-head atraumatic and normocephalic, pupils equal and reactive to light, extraocular muscles intact Neck-no lymphadenopathy or thyromegaly, trachea midline Chest-clear to auscultation. No rales, wheezing or rhonchi Cardiac-regular rate and rhythm, normal S1 and S2 Abdomen-normal bowel sounds, nontender, no hepatosplenomegaly Extremities-bilateral stage IV heel ulcerations. No cyanosis, clubbing, or edema Neuro-cranial nerves II through XII intact, motor and sensory function within normal limits, strength symmetrical, no focal deficits Psych-normal affect, normal mood Results & Data Results & Data Vital Signs (Past 12 Hours) Vital Signs Temp Pulse Pulse Resp BP BP Pulse Ox 07/12/23 12:53 36.7 C 62 16 110/65 95 07/12/23 08:00 36.7 C 64 14 114/74 95 07/12/23 07:45 07/12/23 07:32 36.6 C 61 17 132/73 94 O2 Del Method O2 Flow Rate 07/12/23 12:53 Room Air 07/12/23 08:00 Room Air 07/12/23 07:45 Nasal Cannula 2 07/12/23 07:32 Room Air Laboratory Results 07/11/23 07:58 07/12/23 06:46 PG Care Time/CCT Total # of Minutes Spent Total Time Spent with Patient: Total time spent is greater than 50% in coordination of care (as documented) at patient's floor/unit and/or counseling patient: Coding Level of Care Code 23748 SUB INP/OBS CARE 3/50MIN Diagnoses Pressure ulcer of right heel, stage 4 L89.614 Pressure ulcer of left heel, stage 4 L89.624 Elevated lactic acid level R79.89 Tremor R25.1 Paroxysmal atrial fibrillation I48.0 Atrial fibrillation type: paroxysmal Chronic systolic congestive heart failure I50.22 Neuropathy G62.9 Complex sleep apnea syndrome G47.31 Hypertension I10 Coronary artery disease I25.10 (5) Atrial fibrillation Atrial fibrillation type: paroxysmal Qualified Code(s): I48.0 - Paroxysmal atrial fibrillation
--- NOTE | 2023-07-12 15:18 | Magnetic Resonance Report ---
MR ankle RT wo/w con CLINICAL HISTORY: heel ulcer,assess for OM TECHNIQUE: Multisequence, multiplanar MR images of the right ankle were obtained without contrast.. COMPARISON: None available at the time of this dictation. FINDINGS: No evidence of acute fracture. Tendons in the anterior and posterior compartments of the leg are unre markable. No joint effusion is seen. Soft tissue edema is noted. No drainable fluid collection. IMPRESSION: Soft tissue edema compatible with cellulitis. No evidence of abscess or osteomyelitis. ACT 112: Negative or not required by law. Electronically signed by: Dakota Alexis M.D. 07/12/2023 3:15 PM
--- NOTE | 2023-07-12 22:21 | Orthopedic Progress Note ---
Date of Service July 12, 2023 Assessment & Plan (1) Peripheral arterial disease: (2) Pressure ulcer of left heel, stage 4: (3) Pressure ulcer of right heel, stage 4: Plan patient was examined and evaluated. We discussed at length the etiology and treatment of bilateral heel ulcerations. He has done well at this point with outpatient wound therapy and, with improving local signs of infection, he should be able to continue to healed these with time. We did discuss that if he requires a surgical debridement in the future, and always perform this as needed as an outpatient. Right now, with no underlying abscesss, continued improvement, and no underlying bone infection, there is no pressing reason for sharp surgical debridement. he can be discharged home with continued follow-up with the wound care center and with our office outpatient, as needed. Patient understands and will schedule follow-up accordingly. He should continue with offloading of the heel indefinitely, including well nonweightbearing and while walking. Patient understands and will schedule accordingly. Admission and Anticipated Discharge Date Admission Date: July 10, 2023 Subjective patient seen at bedside today. He is doing well with no new concerns. He states that the wounds remain improved. He has MRI earlier today. He also met with vascular surgery, who suggested he has adequate perfusion to the lower extremity overall. He is anxious to get home whenever possible. He denies any new signs or symptoms of infection. Review of Systems Review of Systems: All systems reviewed & are unremarkable except as noted in HPI & below Constitutional: no fever, no chills, no sweats and no weakness Eyes: no discharge and no eye pain Ear, Nose, Mouth, Throat: no nasal congestion and no nasal discharge Respiratory: no cough, no chest congestion and no wheezing Cardiovascular: + chest pain and + claudication; no calf pain Gastrointestinal: no nausea and no vomiting Musculoskeletal: + stiffness and + limited range of motio n; no back pain Integumentary: + non-healing lesions and + wounds Neurologic: + gait abnormality, + unsteadiness, + nu mbness and + paresthesia Psychiatric: no behavioral changes Physical Exam Physical Exam: B/L lower extremity exam: Stage 4 ulcerations noted to plantar aspect of heels. Mepitel dressing intact with no bleeding or drainage currently, but recently dressed. DP/Pt pulses non palpable. CFT brisk to toes. Advanced trophic changes noted to feet overall with thin skin, loss of hair growth, dystrophy of nails, and cold feet. Ulcers are documented in imaging in chart with depth not assessed at this time due to his positioning. Arthritic changes noted throughout the forefoot with decreased ROM to midfoot and ankle. Muscle strength 4/5 for all muscle groups. No ascending cellulitis. No profound malodor. Constitutional: WD/WN, vitals as above well developed and well nourished; no acute distress Eyes: PERRL, conjunctivae normal, anicteric sclerae ENMT: external ear and nose normal, oropharynx normal Neck: trachea midline, no thyromegaly Respiratory: normal respiratory effort, lungs clear to auscultation Cardiovascular: RRR, no murmur, no edema Vessels: + abnormal peripheral pulses, + posterior tibial pulses abnormal and + dorsalis pedis pulses abnormal Musculoskeletal: no cyanosis or clubbing, extremities motor strength 5/5 Extremities: + limited ROM of extremities and + leg externally rotated Skin: + ulcer, + wound, + skin atrophy and + h air thinning Neurologic: moves all extremities; + abnormal sensation to monofilament and no focal motor deficits Psychiatric: A+Ox3, euthymic affect Results & Data Vital Signs (Past 12 Hours) Vital Signs Temp Pulse Pulse Resp BP Pulse Ox O2 Del Method 07/12/23 20:30 Nasal Cannula 07/12/23 19:44 36.6 C 73 18 116/75 96 Nasal Cannula 07/12/23 16:25 96 Nasal Cannula 07/12/23 16:00 36.3 C L 78 19 97/58 L 91 Nasal Cannula 07/12/23 12:53 36.7 C 62 16 110/65 95 Room Air O2 Flow Rate 07/12/23 20:30 2 07/12/23 19:44 2 07/12/23 16:25 2 07/12/23 16:00 2.0 07/12/23 12:53
[2023-07-13 07:43] LABS: Basophils # (auto) 0.05 K/uL (0.00-0.20); Basophils % (auto) 0.6 %; Eosinophils % (auto) 10.6 %; Hematocrit (blood only) 40.2 % (42.0-52.0); Hemoglobin 13.8 g/dl (14.0-18.0); Immature Granulocytes # (auto) 0.04 K/uL (0.01-0.20); Immature Granulocytes % (auto) 0.5 %; Lymphocytes # (auto) 2.08 K/uL (1.20-3.40); Lymphocytes % (auto) 24.6 %; Mean Corpuscular Hemoglobin 28.5 pg (25.0-34.0); Mean Corpuscular Hgb Conc 34.3 g/dL (32.0-36.0); Mean Corpuscular Volume 82.9 fL (80.0-100.0); Mean Platelet Volume 10.9 fL (9.4-12.4); Monocytes % (auto) 8.3 %; Neutrophils # (auto) 4.69 K/uL (1.40-6.50); Neutrophils % (auto) 55.4 %; Platelet Count 274 K/uL (130-400); RDW Standard Deviation 45.7 fL (36.4-46.3); Red Blood Count 4.85 M/uL (4.70-6.10); White Blood Count 8.46 K/ul (4.8-10.8)
[2023-07-13 08:16] LABS: BUN Creatinine Ratio 37.4 (10-20); Calcium 9.2 mg/dl (8.6-10.3); Creatinine Clr Calc Pharmacy 74.3 ml/min; Est GFR (African American) 84.2 ml/min; Est GFR (Non-African American) 72.6 ml/min; Potassium 3.6 mmol/L (3.5-5.1)
[2023-07-13 08:24] LABS: INR 1.7 (0.9-1.1); Prothrombin Time 17.7 Seconds (9.0-12.0)
--- NOTE | 2023-07-13 12:20 | Discharge Summary ---
Date of Service July 13, 2023 Admission HPI Per Admitting Provider Royce is a 78-year-old male with PMH of A-fib, CHF, ischemic cardiomyopathy, CAD, tremor, parkinsonism, complex sleep apnea syndrome, and bilateral stage IV pressure ulcer on heels. He presented for at the request of home health nursing and wound care clinic for erythema/swelling/warmth and mild purulent drainage of his right heel wound. Patient reports that he has been having pain on the top of his right foot for the past 2 days. No radiation. He reports that it is a stabbing pain that is kept him up the past 2 nights. He has not taken any additional pain medications. He denies any pain at time of admission. He does take oxycodone 10 mg q12h for neuropathy. No recent change in medications. He reports that he took all of his regular morning medications today. He ambulates with a walker/wheelchair at baseline. Vital stable at time of admission. ED course: Cefepime 2000 mg IV NSS 500 mL IV x 2 ROS: Patient endorses dizziness when standing, loose bowel movements, numbness in feet, and pain in his right foot x 2 days. Patient denies fever, chills, nightsweats, NEAL, chest pain, SOB, cough, chest palpitations, abdominal pain, N/V, and pain in left foot. Principal Diagnosis Bilateral stage IV heel ulcers with cellulitis Discharge Exam General-alert and oriented x3, no fever, no chills HEENT-head atraumatic and normocephalic, pupils equal and reactive to light, extraocular muscles intact Neck-no lymphadenopathy or thyromegaly, trachea midline Chest-clear to auscultation. No rales, wheezing or rhonchi Cardiac-regular rate and rhythm, normal S1 and S2 Abdomen-normal bowel sounds, nontender, no hepatosplenomegaly Extremities-bilateral stage IV heel ulcerations. No cyanosis, clubbing, or edema Neuro-cranial nerves II through XII intact, motor and sensory function within normal limits, strength symmetrical, no focal deficits Psych-normal affect, normal mood Discharge Data Allergies Allergy/AdvReac Type Severity Reaction Status Date / Time bee venom protein (honey bee) Allergy Severe SWELLING, Verified 07/08/23 16:16 SOB Penicillins Allergy Severe SWELLING, Verified 07/08/23 16:16 DIFFICULTY BREATHING lidocaine Allergy Mild RASH Verified 07/08/23 16:16 cefdinir AdvReac Severe Vomiting Verified 07/08/23 16:16 hydrocodone AdvReac Mild nausea Verified 07/08/23 16:16 oxycodone AdvReac Mild nausea-SLOW Verified 07/08/23 16:16 RELEASE IS OK cefdinir AdvReac Severe Vomiting Uncoded 07/08/23 16:16 Consultations 07/08/23 16:31 ED Decision to Admit Stat 07/10/23 23:08 Consult Podiatry Routine 07/11/23 17:56 Consult Vascular Surgery Routine Ordered Studies 07/09/23 14:02 US arterial duplex LE BI Routine 07/12/23 00:00 MR ankle LT wo/w con Routine MR ankle RT wo/w con Routine Hospital Course (1) Pressure ulcer of right heel, stage 4: Podiatry consultation and recommendations appreciated. MRI scan results negative for osteomyelitis in both heels. No routine x-ray evidence of osteomyelitis. Treated while hospitalized with Rocephin and daptomycin. Art erial duplex study of bilateral legs negative for significant disease. Vascular surgery consultation appreciated. No intervention required at this time. He will be discharged on oral doxycycline (2) Pressure ulcer of left heel, stage 4: As noted above (3) Elevated lactic acid level: Present on admission. He does not appear to be septic (4) Tremor: Stable. Continue pramipexole (5) Atrial fibrillation: Paced rhythm on telemetry. Continue Coumadin therapy. Daily INR (6) Chronic systolic congestive heart failure: Stable. Known ejection fraction of 30 to 35%. Monitor intake and output. Continue current medical management. (7) Neuropathy: Stable. Continue oxycodone 10 mg q12h (8) Complex sleep apnea syndrome: Stable. Patient declined CPAP HS (9) Hypertension: Stable. Continue Entresto, carvedilol, Bumex (10) Coronary artery disease: With a history of stent in the RCA. Stable. Continue aspirin, carvedilol. Holding statin while on Dapto Plan Home today, July 12, on oral doxycycline. Total Time Total Time Spent Total Time Spent (In Minutes): 45 minutes Discharge Plan Discharge Items Patient Disposition: Home - Home Health Services Reason For Visit: BILATERAL HEEL ULCER INFECTION Discharge Diagnosis: Bilateral stage IV heel ulcers with cellulitis Activity: Resume your previous activity Non-emergency contact: Primary Care Provider Call non-emergency contact if: you have any medication questions and your symptoms worsen Follow-up/Referrals: Tramaine Peterson MD [Primary Care Provider] - Diet: Regular and Heart Healthy Addtl Attending Provider Instructions: Take doxycycline 100 mg twice daily as directed Pending Studies at Discharge: No Stand-Alone Forms: [facility], Smoking Cessation Medications and DC Order Prescriptions: New doxycycline hyclate 100 mg capsule 100 mg PO BID Qty: 60 0RF Continued potassium chloride 20 mEq tablet extended release 20 meq PO BID Qty: 200 3RF rosuvastatin [Crestor] 10 mg tablet 10 mg PO QPM warfarin 5 mg tablet 5 mg PO . @ MN,WD,FR,ST,SN Qty: 100 3RF Protocol: Dose Management Condition: Wednesday (Week One) Dose/Route: 2.5 mg Instruction: 0.5 x 5 mg tablets Condition: Wednesday Dose/Route: 5 mg Instruction: 1 x 5 mg tablet Condition: Wednesday Dose/Route: 2.5 mg Instruction: 0.5 x 5 mg tablets Condition: Wednesday Dose/Route: 5 mg Instruction: 1 x 5 mg tablet Condition: Dose/Route: 5 mg Instruction: 1 x 5 mg tablet Condition: Wednesday Dose/Route: 5 mg Instruction: 1 x 5 mg tablet Condition: Wednesday Dose/Route: 2.5 mg Instruction: 0.5 x 5 mg tablets Condition: Wednesday (Week Two) Dose/Route: 2.5 mg Instruction: 0.5 x 5 mg tablets Condition: Wednesday Dose/Route: 5 mg Instruction: 1 x 5 mg tablet Condition: Wednesday Dose/Route: 2.5 mg Instruction: 0.5 x 5 mg tablets Condition: Wednesday Dose/Route: 5 mg Instruction: 1 x 5 mg tablet Condition: Dose/Route: 2.5 mg Instruction: 0.5 x 5 mg tablets Condition: Wednesday Dose/Route: 5 mg Instruction: 1 x 5 mg tablet Condition: Wednesday Dose/Route: 2.5 mg Instruction: 0.5 x 5 mg tablets Protocol Text: Adjustment Start Date: 07/01/23 INR Value: 1.9 INR Date: 07/01/23 Recheck Date: 07/12/23 Rx Instructions: Take 1 tablet daily, except 0.5 tablet on Wednesday, and Wednesday. sacubitril-valsartan 49-51 mg tablet 1 tab PO BID cetirizine 10 mg tablet 10 mg PO DAILY bumetanide 1 mg tablet 1 mg PO QAM carvedilol 25 mg tablet 12.5 mg PO BID Rx Instructions: must administer with a meal/food bupropion HCl 100 mg tablet 100 mg PO BID Rx Instructions: TAKE THIS MEDICATION EVERY MORNING AND AT NOON albuterol sulfate 90 mcg/actuation HFA aerosol inhaler 2 puffs inhalation Q6H PRN (Reason: Shortness Of Breath Or Wheezing) docusate sodium 100 mg capsule 100 mg PO BID finasteride 5 mg tablet 5 mg PO QAM pantoprazole 40 mg tablet,delayed release (DR/EC) 80 mg PO .@NOON pramipexole [Mirapex ER] 0.375 mg tablet extended release 24 hr 0.375 mg PO QAM Qty: 90 3RF aspirin 81 mg Tablet,Delayed Release (Dr/Ec) 81 mg PO QAM mometasone [Nasonex] 50 mcg/actuation [place],Non-Aerosol 2 spray INTRANASAL BID oxycodone 10 mg Tablet 10 mg PO Q12H Patient Comments: takes 6am and 6pm sennosides 8.6 mg Tablet 8.6 mg PO BID Refresh Lacri-Lube 56.8-42.5 % Ointment 1 applic OPHTHALMIC (EYE) HS Rx Instructions: 1/8th INCH IN EACH EYE metoclopramide HCl 10 mg tablet 5 mg PO Q8H Stiolto Respimat 2.5-2.5 mcg/actuation Mist 2 puff INHALATION QAM nystatin 100,000 unit/gram Powder 1 applic TOPICAL BID lanolin-mineral oil-NaCl-w.pet Lotion 1 ea TOPICAL Q8H metolazone 5 mg Tablet 10 mg PO DAILY Qty: 30 0RF sucralfate 100 mg/mL Suspension 1 g PO QID Qty: 28 0RF epinephrine [Epi E-Z Pen] 0.3 mg/0.3 mL Auto-Injector 0.3 mg IM DIRECTED PRN (Reason: sEVERE ALLERGIC REACTION) PreserVision AREDS 2,148 mcg-113 mg-45 mg-17.4mg Tablet 2 tab PO DAILY Rx Instructions: administer with AM and PM meals Discharge Orders: Discharge Order (Routine); Ordered 07/13/23 Ordered By: Saúl Dill Admission Data Admit Date/Time: 07/10/23 20:00 Attending Provider: Saúl Dill Admit Provider: Nathan Iniguez Primary Care Provider: Tramaine Peterson Other Providers: Nathan Iniguez; Darren Garcia; Octavio Huang; [facility] Coding Level of Care Code 06268 INP/OBS DISCH >30 MIN Diagnoses Pressure ulcer of right heel, stage 4 L89.614 Pressure ulcer of left heel, stage 4 L89.624 Elevated lactic acid level R79.89 Tremor R25.1 Paroxysmal atrial fibrillation I48.0 Atrial fibrillation type: paroxysmal Chronic systolic congestive heart failure I50.22 Neuropathy G62.9 Complex sleep apnea syndrome G47.31 Hypertension I10 Coronary artery disease I25.10
== END 2023-07-13 14:00 | disposition home health service (06) | DRG 593 ==
LOC: 2S 12:36 → ED 12:36 → SUATTDRO 18:56 → 2S 22:24 → SUATTDRO 07-10 20:00 → 3N 07-10 23:05

== ENCOUNTER 2023-10-22 14:11 | Inpatient (IN) ==
--- NOTE | 2023-10-22 14:28 | Emergency Department Note ---
Impression & Plan Tachycardia, CHF (congestive heart failure), Elevated INR ED Provider Note NAME: ZIGGY DEUTSCH AGE: 78 SEX: M : 1945 ARRIVES VIA: Ambulance INFORMANT: Patient ED PROVIDER(S): Dio Gamble DO CHIEF COMPLAINT: Elevated heart rate and low blood pressures in HPI: Patient is a 78-year-old male who presents to the ER from wound care clinic. He notes that he was over there and his blood pressure was on the low side and there found him to be in A-fib and consequently sent here with an elevated heart rate. He denies any headache or change in vision. No chest pain or shortness of breath. No nausea, vomiting, or diarrhea. No dysuria, urgency, or frequency. No other exacerbating or remitting factors. ADDITIONAL HISTORY OBTAINED: Per HPI Chronic Medical/Social Conditions Affecting Care: Per HPI PAST MEDICAL HISTORY:See Below PAST SURGICAL HISTORY:See Below FAMILY HISTORY:See Below SOCIAL HISTORY:See Below HOME MEDICATIONS:See Below ALLERGIES:See Below VITALS:See Below PHYSICAL EXAMINATION: GENERAL: Sitting up in bed, alert, well appearing, well nourished, no distress, non-toxic EYE EXAM: normal conjunctiva. PERRL and EOM's grossly intact. OROPHARYNX: mucous membranes are moist NECK: supple, no nuchal rigidity, no adenopathy, non-tender LUNGS: Clear to auscultation. Normal chest wall mechanics HEART: Tachycardic, S1 normal and S2 normal ABDOMEN: abdomen soft, non-tender, normo-active bowel sounds, no masses, no rebound or guarding. BACK: Back is symmetrical on inspection and there is no deformity, no midline tenderness, no CVA tenderness. SKIN: no rashes and no bruising UPPER EXTREMITIES: upper extremities are grossly normal. LOWER EXTREMITIES: No pitting edema. Small wound on the right posterior heel. No surrounding erythema or induration. No appreciable bone. NEURO EXAM: Normal sensorium, cranial nerves II-XII grossly intact, normal speech, no gross weakness of arms, no gross weakness of legs. MEDICAL DECISION MAKING: Patient is a 78-year-old male who presents ER for the above-stated complaint. IV was established blood work was obtained. Labs show no significant leukocytosis or anemia. INR 2.7. BMP along with LFTs bilirubin is unremarkable. Troponin is negative. Lipase is normal. UA is clean. Chest x- ray is unremarkable. Patient was persistently tachycardic in the 120s. He notes he did take his medications this morning. Pacemaker was interrogated and I spoke with [employer] time and he notes that it is a sinus rhythm. Patient was given dose of Lasix due to the worsening failure on chest x-ray. PE was not explored but considered is on Coumadin and therapeutic. He was updated bedside and discussed with the case with the hospitalist for further evaluation management treatment. Consults/Care Managements Discussions: Per [facility] Triage Nursing notes reviewed. Limited review of prior medical records performed Vital Signs: reviewed and remarkable for tachy Differential diagnosis: Cardiac ischemia, aortic dissection, pulmonary embolism, pneumothorax, pneumonia, pericarditis, myocarditis, esophageal rupture, GERD, cholecystitis, pancreatitis, musculoskeletal, as well as other pathologies. ER treatment provided: See below Diagnostics interpreted by me include EKG and cardiac monitoring as listed below: -Cardiac Monitoring: An order was placed for continuous cardiac monitoring. The monitor shows a rate of 123 with Sinus rhythm. -ECG: Ventricular paced rate is 122 Left axis QTc 558 -Laboratory studies:Interpreted by me as stated above in MDM and shown below. Imaging studies: Xrays: As interpreted by me: Portable AP upright 1 view the chest shows no focal infiltrate CTs show: none Procedures:none Critical Care: None Past Med/Surg History Problem List (Updated 10/22/23 @ 20:16 by Dio Gamble DO) Elevated INR (Acute) CHF (congestive heart failure) (Acute) Tachycardia (Acute) Near syncope (Acute) Tachycardia (Acute) Hypotension (Acute) Leg pain Pressure ulcer of right heel, stage 4 (Acute) Atrial fibrillation, controlled Elevated lactic acid level (Acute) Elevated INR (Acute) Cellulitis (Acute) Parkinsonism Stage III pressure ulcer of buttock (Acute) Unstageable pressure ulcer of right heel (Acute) Unstageable pressure ulcer of left heel (Acute) Centrilobular emphysema Bilateral foot-drop Esophagitis Hypoxia Dysphagia Vomiting Acute kidney injury Acute respiratory failure with hypoxia (Acute) Elevated troponin (Acute) Acute kidney failure (Acute) Sepsis (Acute) Pneumonia (Acute) Acute UTI (Acute) Acute on chronic hypoxic respiratory failure Severe sepsis Encounter for pre-operative examination Biliary dyskinesia (Chronic) Cellulitis of left arm Chest pain (Acute) Dog bite (Acute) Hand laceration (Acute) Right upper quadrant abdominal pain Multiple kidney stones Idiopathic peripheral neuropathy (Acute) Cervical spondylosis without myelopathy (Acute) Cervical radiculopathy (Acute) Episode of confusion Preop testing POWERS (dyspnea on exertion) Presence of biventricular automatic cardioverter/defibrillator (AICD) Complex renal cyst Benign essential hypertension 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 Agent orange exposure Warfarin anticoagulation (Chronic) Balance problem Bursitis of left elbow Ischemic cardiomyopathy (Acute) Euvolemic at 11/23/22 cardio appt Elevated PSA 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 Cervicogenic headache Spasticity upper limbs Medical History Peripheral arterial disease Hypertension Coronary artery disease Tremor ICD (implantable cardioverter-defibrillator) in place Neuropathy Complex sleep apnea syndrome NYHA class 4 acute on chronic systolic heart failure History of kidney stones Presence of combination internal cardiac defibrillator (ICD) and pacemaker first placed 2010 @ [facility] replaced in 2014 & 2021 @ [facility]--biventricular [employer]. reports last check 11/25/22. Emphysema lung Legally blind Chronic back pain History of urinary self-catheterization self caths every other night History of DVT of lower extremity 2010 Macular degeneration Hearing deficit Depression Migraine CAD (coronary artery disease) s/p stent 2010 Myocardial Infarction 10/2010--follows with Dr. Abreu Atrial fibrillation on warfarin--follows with Dr. Abreu Pulmonary embolism 1992 and 2010 after heart attack--follows with Dr. Abreu Asthma inhaler prn Sleep apnea bipap Chronic systolic congestive heart failure EF 25-30% Surgical History S/P epidural steroid injection History of foot surgery plantar fasciitis History of open reduction and internal fixation (ORIF) procedure left foot--hardware removed History of prostate biopsy x3--precancerous, just monitoring for now History of prostate surgery 07/2016--[place] prostate vaproization History of cystoscopy multiple History of colonoscopy with polypectomy History of esophagogastroduodenoscopy (EGD) History of right inguinal hernia repair x3 History of Khari fundoplication History of cholecystectomy History of tooth extraction History of eye surgery right--macular degeneration History of bilateral cataract extraction History of cardiac cath 10/2010 @ [facility]--1 stent placed Family History Son Family history of diabetes mellitus Other Family history non-contributory No family history of adverse response to anesthesia Social History Smoking Status: Former smoker Second Hand Exposure: Yes (father smoked); Do You Dip or Chew Tobacco: No; Hx Alcohol Use: No Hx Substance Use: No Preferred Language: Romansh Communication Ability: Effective Secret Service Agent Required: No Beliefs That Will Affect Care: None marital status: Current Living Situation: Alone current occupational status: retired Feels Safe at Home: Yes Assistive Devices: Bedside Commode, Walker, Wheelchair and Other Allergies Allergies Allergy/AdvReac Type Severity Reaction Status Date / Time bee venom protein (honey bee) Allergy Severe SWELLING, Verified 10/22/23 16:01 SOB Penicillins Allergy Severe SWELLING, Verified 10/22/23 16:01 DIFFICULTY BREATHING lidocaine Allergy Mild RASH Verified 10/22/23 13:01 cefdinir AdvReac Severe Vomiting Verified 10/22/23 13:01 hydrocodone AdvReac Mild nausea Verified 10/22/23 13:01 oxycodone AdvReac Mild nausea-SLOW Verified 10/22/23 13:01 RELEASE IS OK cefdinir AdvReac Severe Vomiting Uncoded 10/22/23 13:01 Home Meds Home Medications Medication Instructions Recorded Confirmed albuterol sulfate 90 mcg/actuation 2 puffs inhalation Q6H PRN 12/01/18 10/22/23 aerosol inhaler Shortness Of Breath Or Wheezing bupropion HCl 100 mg tablet 100 mg PO BID 12/01/18 10/22/23 docusate sodium 100 mg capsule 100 mg PO BID 12/01/18 10/22/23 finasteride 5 mg tablet 5 mg PO QAM 12/01/18 10/22/23 aspirin 81 mg tablet,delayed 81 mg PO QAM 12/21/18 10/22/23 release oxycodone 10 mg tablet 10 mg PO Q12H 12/21/18 10/22/23 sennosides 8.6 mg tablet 8.6 mg PO TID 12/21/18 10/22/23 white petrolatum-mineral oil 56.8 1 applic ophthalmic (eye) HS 12/21/18 10/22/23 %-42.5 % eye ointment (Refresh Lacri-Lube) metoclopramide HCl 10 mg tablet 5 mg PO Q8H 09/04/19 10/22/23 sacubitril 49 mg-valsartan 51 mg 1 tab PO AMPM 11/25/20 10/22/23 tablet pantoprazole 40 mg tablet,delayed 80 mg PO .@NOON 03/10/21 10/22/23 release tiotropium 2.5 mcg-olodaterol 2.5 2 puff inhalation QAM 12/02/22 10/22/23 mcg/actuation mist for inhalation (Stiolto Respimat) nystatin 100,000 unit/gram topical 1 applic topical BID 02/23/23 10/22/23 powder carvedilol 25 mg tablet 12.5 mg PO AMPM 04/06/23 10/22/23 cetirizine 10 mg tablet 10 mg PO QDB 05/17/23 10/22/23 epinephrine 0.3 mg/0.3 mL 0.3 mg IM DIRECTED PRN sEVERE 07/08/23 10/22/23 injection, auto-injector ALLERGIC REACTION lanolin-mineral oil-NaCl-w.pet 1 ea topical TID 10/22/23 10/22/23 lotion mometasone 50 mcg/actuation nasal 2 spray intranasal BID 10/22/23 10/22/23 spray rosuvastatin 10 mg tablet 10 mg PO QPM 10/22/23 10/22/23 warfarin 5 mg tablet 5 mg PO UD 10/22/23 10/22/23 Previous Rx's Medication Instructions Recorded pramipexole 0.375 mg 0.375 mg PO QAM Parkinsonism #90 08/19/23 tablet,extended release 24 hr tabs (Mirapex ER) bumetanide 1 mg tablet 1 mg PO QAM #90 tabs 10/10/23 potassium chloride 20 mEq 20 meq PO BID #200 tabs 10/10/23 tablet,extended release Results & Data (ED) Vital Signs Vital Signs - 24 hr 10/22/23 14:13 10/22/23 14:27 10/22/23 14:27 Temperature 36.7 C Temperature Source Oral Pulse Rate 122 H Pulse Rate [Finger] Respiratory Rate 18 Respiratory Effort / Characteristics Non-Labored Spontaneous Tripoding Respiratory Depth Normal Respiratory Pattern Regular Blood Pressure 104/76 Blood Pressure [Right Arm] Blood Pressure Mean 85 Blood Pressure Mean [Right Arm] Blood Pressure Position [Right Arm] Pulse Oximetry 94 Oxygen Delivery Method Room Air Room Air Room Air Sepsis Recent Fever Within 48 Hours No Sepsis New/Unexplained Change in Mental Status No Sepsis Action Taken by Nursing No Action Required 10/22/23 14:49 10/22/23 14:58 10/22/23 15:49 Temperature Temperature Source Pulse Rate Pulse Rate [Finger] 100 H 123 H Respiratory Rate 16 16 Respiratory Effort / Characteristics Non-Labored Spontaneous Non-Labored Spontaneous Respiratory Depth Normal Normal Respiratory Pattern Blood Pressure Blood Pressure [Right Arm] 109/73 104/80 Blood Pressure Mean Blood Pressure Mean [Right Arm] 85 88 Blood Pressure Position [Right Arm] Pulse Oximetry 96 96 Oxygen Delivery Method Room Air Sepsis Recent Fever Within 48 Hours Sepsis New/Unexplained Change in Mental Status Sepsis Action Taken by Nursing 10/22/23 16:10 10/22/23 16:40 10/22/23 18:00 Temperature Temperature Source Pulse Rate 122 H Pulse Rate [Finger] 109 H 124 H Respiratory Rate 16 16 Respiratory Effort / Characteristics Non-Labored Respiratory Depth Normal Respiratory Pattern Blood Pressure Blood Pressure [Right Arm] 112/86 131/97 Blood Pressure Mean Blood Pressure Mean [Right Arm] 94 108 Blood Pressure Position [Right Arm] Pulse Oximetry 97 95 Oxygen Delivery Method Room Air Sepsis Recent Fever Within 48 Hours Sepsis New/Unexplained Change in Mental Status Sepsis Action Taken by Nursing 10/22/23 19:33 10/22/23 20:00 10/22/23 20:03 Temperature Temperature Source Pulse Rate 123 H 123 H Pulse Rate [Finger] 123 H Respiratory Rate 18 Respiratory Effort / Characteristics Non-Labored Spontaneous Respiratory Depth Normal Respiratory Pattern Regular Blood Pressure 130/103 H Blood Pressure [Right Arm] 116/87 Blood Pressure Mean Blood Pressure Mean [Right Arm] 96 Blood Pressure Position [Right Arm] Lying Pulse Oximetry Oxygen Delivery Method Room Air Sepsis Recent Fever Within 48 Hours Sepsis New/Unexplained Change in Mental Status Sepsis Action Taken by Nursing Laboratory Data 10/22/23 14:40 10/22/23 14:40 Lab Results 10/22/23 10/22/23 10/22/23 Range/Units 14:40 16:36 17:06 WBC 8.97 (4.8-10.8) K/ul RBC 4.78 (4.70-6.10) M/uL Hgb 14.0 (14.0-18.0) g/dl Hct 41.4 L (42.0-52.0) % MCV 86.6 (80.0-100.0) fL MCH 29.3 (25.0-34.0) pg MCHC 33.8 (32.0-36.0) g/dL RDW Std Deviation 45.7 (36.4-46.3) fL RDW Coeff of Jerry 14.6 H (11.5-14.5) % Plt Count 288 (130-400) K/uL MPV 10.4 (9.4-12.4) fL Immature Gran % (Auto) 0.7 % Neut % (Auto) 49.7 % Lymph % (Auto) 32.0 % [place] % (Auto) 11.0 % Eos % (Auto) 5.9 % Baso % (Auto) 0.7 % Neut # (Auto) 4.46 (1.40-6.50) K/uL Lymph # (Auto) 2.87 (1.20-3.40) K/uL [place] # (Auto) 0.99 H (0.11-0.59) K/uL Eos # (Auto) 0.53 H (0.00-0.50) K/uL Baso # (Auto) 0.06 (0.00-0.20) K/uL Immature Gran # (Auto) 0.06 (0.01-0.20) K/uL PT 26.9 H (9.0-12.0) Seconds INR 2.7 H (0.9-1.1) Sodium 135 L (136-145) mmol/L Potassium 4.5 (3.5-5.1) mmol/L Chloride 105 (98-107) mmol/L Carbon Dioxide 21 (21-32) mmol/L Anion Gap 9 (3-11) BUN 23 (6-23) mg/dl Creatinine 1.01 (0.6-1.4) mg/dl Est Cr Clr Drug Dosing 76.3 ml/min Est GFR ( Amer) 82.2 ml/min Est GFR (Non-Af Amer) 70.9 ml/min BUN/Creatinine Ratio 22.8 H (10-20) Glucose 107 H (70-99(Fasting)) mg/dl Calcium 8.6 (8.6-10.3) mg/dl Total Bilirubin 0.3 (0.2-1.0) mg/dl AST 17 (13-39) U/L ALT 16 (7-52) U/L Alkaline Phosphatase 42 (34-104) U/L Troponin I High Sens 11.2 (0-20) pg/ml B-Natriuretic Peptide 461 H (0-100) pg/ml Total Protein 6.9 (6.0-8.3) gm/dl Albumin 3.8 (3.4-5.0) gm/dl Globulin 3.1 (2.5-4.0) gm/dl Albumin/Globulin Ratio 1.2 (0.9-2) Lipase 34 (11-82) U/L Urine Color Yellow Urine Appearance Clear (Clear) Urine pH 5.5 (4.5-7.5) Ur Specific [place] 1.020 (1.000-1.030) Urine Protein Negative (Negative) Urine Glucose (UA) Negative (Negative) Urine Ketones Negative (Negative) Urine Blood Negative (Negative) Urine Nitrite Negative (Negative) Urine Bilirubin Negative (Negative) Urine Urobilinogen Negative (Negative) Ur Leukocyte Esterase Negative (Negative) Administered Medications Discontinued Medications Furosemide (Furosemide 40 Mg/4 Ml Vial) 40 mg IV NOW STA Stop: 10/22/23 16:48 Last Admin: 10/22/23 18:34 Dose: 40 mg Documented By: CORNELL Sodium Chloride (Nss) 500 mls @ 999 mls/hr IV .Q31M ONE Stop: 10/22/23 14:57 Last Infusion: 10/22/23 15:30 Dose: Infused Documented By: Admin: 10/22/23 14:51 Dose: 999 mls/hr Documented By: ARISTEO Metoprolol Tartrate (Metoprolol Tartrate 1 Mg/Ml Vial) 5 mg IV NOW STA Stop: 10/22/23 17:54 Last Admin: 10/22/23 18:34 Dose: 5 mg Documented By: CORNELL Imaging Data Radiologist's Impression: Chest X-Ray 10/22/23 14:12 SINGLE VIEW CHEST CLINICAL HISTORY: Atypical chest pain. FINDINGS: An AP, portable, upright chest radiograph is compared to study dated 07/08/2023 and correlated with chest CT dated 03/04/2023. A multilead cardiac AICD is unchanged in position and largely obscures the left lower chest. The heart is enlarged noting atherosclerotic calcification of the thoracic ureter. There is pulmonary vascular congestion. Emphysema and chronic interstitial thickening is similar to previous. There are small pleural effusions with dependent consolidation. No pneumothorax is seen. The skeletal structures are osteopenic. The bony thorax is grossly intact. IMPRESSION: 1. Cardiomegaly and AICD with pulmonary vascular congestion. 2. Small pleural effusions with dependent consolidation. 3. Emphysema. ACT 112: Negative or not required by law. Electronically signed by: Ankush Byrnes M.D. 10/22/2023 3:04 PM Discharge Plan Visit Data Chief Complaint: Cardiac Assessment Stated Complaint: TACHYCARDIA ED Provider: Dio Gamble Discharge Problem: Tachycardia, CHF (congestive heart failure), Elevated INR Forms Stand Alone Forms: My [facility] [employer] Prescriptions Prescriptions: No Action pramipexole [Mirapex ER] 0.375 mg tablet extended release 24 hr 0.375 mg PO QAM Qty: 90 3RF bumetanide 1 mg tablet 1 mg PO QAM Qty: 90 3RF potassium chloride 20 mEq tablet extended release 20 meq PO BID Qty: 200 3RF sacubitril-valsartan 49-51 mg tablet 1 tab PO AMPM cetirizine 10 mg tablet 10 mg PO QDB carvedilol 25 mg tablet 12.5 mg PO AMPM Rx Instructions: must administer with a meal/food bupropion HCl 100 mg tablet 100 mg PO BID Rx Instructions: TAKE THIS MEDICATION EVERY MORNING AND AT NOON albuterol sulfate 90 mcg/actuation HFA aerosol inhaler 2 puffs inhalation Q6H PRN (Reason: Shortness Of Breath Or Wheezing) docusate sodium 100 mg capsule 100 mg PO BID finasteride 5 mg tablet 5 mg PO QAM pantoprazole 40 mg tablet,delayed release (DR/EC) 80 mg PO .@NOON aspirin 81 mg Tablet,Delayed Release (Dr/Ec) 81 mg PO QAM oxycodone 10 mg Tablet 10 mg PO Q12H Patient Comments: takes 6am and 6pm Rx Instructions: take at 6 am & 6 pm sennosides 8.6 mg Tablet 8.6 mg PO TID Rx Instructions: takes in morning ,at noon and bedtime Refresh Lacri-Lube 56.8-42.5 % Ointment 1 applic OPHTHALMIC (EYE) HS Rx Instructions: 1/8th INCH IN EACH EYE metoclopramide HCl 10 mg tablet 5 mg PO Q8H Stiolto Respimat 2.5-2.5 mcg/actuation Mist 2 puff INHALATION QAM nystatin 100,000 unit/gram Powder 1 applic TOPICAL BID epinephrine 0.3 mg/0.3 mL Auto-Injector 0.3 mg IM DIRECTED PRN (Reason: sEVERE ALLERGIC REACTION) warfarin 5 mg tablet 5 mg PO UD Protocol: Dose Management Condition: Wednesday Dose/Route: 5 mg Instruction: 1 x 5 mg tablet Condition: Wednesday Dose/Route: 5 mg Instruction: 1 x 5 mg tablet Condition: Wednesday Dose/Route: 2.5 mg Instruction: 0.5 x 5 mg tablets Condition: Wednesday Dose/Route: 5 mg Instruction: 1 x 5 mg tablet Condition: Dose/Route: 2.5 mg Instruction: 0.5 x 5 mg tablets Condition: Wednesday Dose/Route: 5 mg Instruction: 1 x 5 mg tablet Condition: Wednesday Dose/Route: 5 mg Instruction: 1 x 5 mg tablet Protocol Text: Adjustment Start Date: Wednesday09/27/23 INR Value: 3.2 INR Date: 09/27/23 Rx Instructions: take 5 mg on WED/WED/WED/SAT/SUN ...take 2.5 mg on /THURSDAYS rosuvastatin 10 mg tablet 10 mg PO QPM mometasone [Nasonex] 50 mcg/actuation [place],Non-Aerosol 2 spray INTRANASAL BID Rx Instructions: administer into each nostril Lubriderm Unscented Lotion 1 ea TOPICAL TID Referrals Referrals: Tramaine Peterson MD [Primary Care Provider] - Discharge Problem: CHF (congestive heart failure) Qualifiers: Heart failure type: unspecified Heart failure chronicity: unspecified Qualified Code(s): I50.9 - Heart failure, unspecified
[2023-10-22] MEDS: SODIUM CHLORIDE 0.9% 500 ML IV ONE (14:51)
--- NOTE | 2023-10-22 15:05 | XRay Report ---
SINGLE VIEW CHEST CLINICAL HISTORY: Atypical chest pain. FINDINGS: An AP, portable, upright chest radiograph is compared to study dated 07/08/2023 and correlat ed with chest CT dated 03/04/2023. A multilead cardiac AICD is unchanged in position and largely obscu res the left lower chest. The heart is enlarged noting atherosclerotic calcification of the thoracic ureter. There is pulmonary vascular congestion. Emphysema and chronic interstitial thickening is unruly lar to previous. There are small pleural effusions with dependent consolidation. No pneumothorax is s een. The skeletal structures are osteopenic. The bony thorax is grossly intact. IMPRESSION: 1. Cardiomegaly and AICD with pulmonary vascular congestion. 2. Small pleural effusions with dependent consolidation. 3. Emphysema. ACT 112: Negative or not required by law. Electronically signed by: Ankush Byrnes M.D. 10/22/2023 3:04 PM
[2023-10-22 15:15] LABS: Basophils # (auto) 0.06 K/uL (0.00-0.20); Basophils % (auto) 0.7 %; Eosinophils # (auto) 0.53 K/uL (0.00-0.50); Eosinophils % (auto) 5.9 %; Hematocrit (blood only) 41.4 % (42.0-52.0); Immature Granulocytes # (auto) 0.06 K/uL (0.01-0.20); Immature Granulocytes % (auto) 0.7 %; Lymphocytes # (auto) 2.87 K/uL (1.20-3.40); Mean Corpuscular Hemoglobin 29.3 pg (25.0-34.0); Mean Corpuscular Hgb Conc 33.8 g/dL (32.0-36.0); Mean Corpuscular Volume 86.6 fL (80.0-100.0); Mean Platelet Volume 10.4 fL (9.4-12.4); Monocytes # (auto) 0.99 K/uL (0.11-0.59); Neutrophils # (auto) 4.46 K/uL (1.40-6.50); Neutrophils % (auto) 49.7 %; Platelet Count 288 K/uL (130-400); RDW Coefficient of Variation 14.6 % (11.5-14.5); RDW Standard Deviation 45.7 fL (36.4-46.3); Red Blood Count 4.78 M/uL (4.70-6.10); White Blood Count 8.97 K/ul (4.8-10.8)
[2023-10-22 15:35] LABS: Albumin Globulin Ratio 1.2 (0.9-2); Albumin Level 3.8 gm/dl (3.4-5.0); BUN Creatinine Ratio 22.8 (10-20); Bilirubin,Total 0.3 mg/dl (0.2-1.0); Calcium 8.6 mg/dl (8.6-10.3); Creatinine Clr Calc Pharmacy 76.3 ml/min; Est GFR (African American) 82.2 ml/min; Est GFR (Non-African American) 70.9 ml/min; Globulin 3.1 gm/dl (2.5-4.0); Potassium 4.5 mmol/L (3.5-5.1); Total Protein 6.9 gm/dl (6.0-8.3)
[2023-10-22 15:41] LABS: Troponin I High Sensitivity 11.2 pg/ml (0-20)
--- NOTE | 2023-10-22 16:35 | Electrocardiogram Report ---
Test Reason : Blood Pressure : / mmHG Vent. Rate : 122 BPM Atrial Rate : 122 BPM P-R Int : 000 ms QRS Dur : 146 ms QT Int : 392 ms P-R-T Axes : 000 128 108 degrees QTc Int : 558 ms Ventricular-paced rhythm Abnormal ECG When compared with ECG of 08-JUL-2023 13:25, Premature ventricular complexes are no longer Present Vent. rate has increased BY 49 BPM Confirmed by Ankur Baker ([id number]) on 10/22/2023 4:34:55 PM Referred By: REFERRED SELF Confirmed By:Ankur Baker
[2023-10-22 17:46] LABS: INR 2.7 (0.9-1.1); Prothrombin Time 26.9 Seconds (9.0-12.0)
[2023-10-22] MEDS ORDERED: ALUMINUM/MAGNESIUM SUSP 30 ML UDC PO PRN (17:55)
[2023-10-22] MEDS ORDERED: ONDANSETRON INJ 2 MG/ML 2 ML VIAL IV PRN (17:55)
[2023-10-22] MEDS ORDERED: MAGNESIUM HYDROXIDE SUSP 30 ML UDC PO PRN (17:55)
[2023-10-22] MEDS ORDERED: POLYETHYLENE (MIRALAX) 17 GM PACK PO PRN (17:55)
[2023-10-22] MEDS ORDERED: MELATONIN 3 MG TAB PO PRN (17:55)
[2023-10-22] MEDS ORDERED: ACETAMINOPHEN 325 MG TAB PO PRN (17:55)
[2023-10-22 18:16] LABS: Appearance Urine Clear (Clear); Bilirubin Urine Negative (Negative); Blood Urine Negative (Negative); Color Urine Yellow; Glucose Urine UA Negative (Negative); Ketones Urine Negative (Negative); Leukocyte Esterase Urine Negative (Negative); Nitrite Urine Negative (Negative); Protein Urine Negative (Negative); Urobilinogen Urine Negative (Negative); pH Urine 5.5 (4.5-7.5)
[2023-10-22] MEDS: FUROSEMIDE 40 MG/4 ML VIAL IV STA (18:34)
[2023-10-22] MEDS: METOPROLOL TARTRATE 1 MG/ML VIAL IV STA (18:34)
--- NOTE | 2023-10-22 18:53 | History & Physical Report ---
Date of Service October 22, 2023 Assessment & Plan (1) Atrial fibrillation: Plan: HR in 120s will hold Coreg, IV Metoprolol Metoprolol 25 mg bid, transition to Toprol-XL Consult malter operator Continue Coumadin Daily INR (2) Chronic systolic congestive heart failure: Plan: Severely reduced EF, status post defibrillator, biventricular automatic cardioverter Continue Entresto Beta-clotilde Bumex Chest x-ray patient had vascular congestion, but denies shortness of breath (3) Sleep apnea: Plan: Continue CPAP (4) Pulmonary embolism: Plan: No symptoms no symptoms of PE, he is on Coumadin, if he continues to be tachycardic consider CTA of the chest (5) Pressure ulcer of right heel, stage 4: Plan: Continue wound care, patient goes to wound care center History of Present Illness Chief Complaint: sent from wound care for Afib Primary Care Provider: Tramaine Peterson MD 78-year-old male with history of paroxysmal A-fib, severely reduced EF, status post biventricular automatic cardioverter /defibrillator, CAD, on Coumadin, he is on Entresto, Coreg 25 mg twice a day, took 1 dose this morning, who presents ER from wound care clinic. He notes that he was over there and his blood pressure was on the low side and there found him to be in A-fib and consequently sent here with an elevated heart rate. He denies any headache or change in vision. No chest pain or shortness of breath. No nausea vomiting or diarrhea. No dysuria urgency or frequency. No other exacerbating or remitting factors. Patient denies palpitations, EKG done in the ER, heart rate in 120, suspect A- fib. Patient was given IV fluids in the ER, will order IV metoprolol, malter operator consulted, patient denies fever or chills, denies pain, had a prior history of PE, but does not feel symptoms are consistent with pulmonary emboli, he is INR is therapeutic Allergies Allergy/AdvReac Type Severity Reaction Status Date / Time bee venom protein (honey bee) Allergy Severe SWELLING, Verified 10/22/23 16:01 SOB Penicillins Allergy Severe SWELLING, Verified 10/22/23 16:01 DIFFICULTY BREATHING lidocaine Allergy Mild RASH Verified 10/22/23 13:01 cefdinir AdvReac Severe Vomiting Verified 10/22/23 13:01 hydrocodone AdvReac Mild nausea Verified 10/22/23 13:01 oxycodone AdvReac Mild nausea-SLOW Verified 10/22/23 13:01 RELEASE IS OK cefdinir AdvReac Severe Vomiting Uncoded 10/22/23 13:01 Home Medications Medication Instructions Recorded Confirmed Type albuterol sulfate 90 mcg/actuation 2 puffs inhalation Q6H PRN 12/01/18 10/22/23 History aerosol inhaler Shortness Of Breath Or Wheezing bupropion HCl 100 mg tablet 100 mg PO BID 12/01/18 10/22/23 History docusate sodium 100 mg capsule 100 mg PO BID 12/01/18 10/22/23 History finasteride 5 mg tablet 5 mg PO QAM 12/01/18 10/22/23 History aspirin 81 mg tablet,delayed 81 mg PO QAM 12/21/18 10/22/23 History release oxycodone 10 mg tablet 10 mg PO Q12H 12/21/18 10/22/23 History sennosides 8.6 mg tablet 8.6 mg PO TID 12/21/18 10/22/23 History white petrolatum-mineral oil 56.8 1 applic ophthalmic (eye) HS 12/21/18 10/22/23 History %-42.5 % eye ointment (Refresh Lacri-Lube) metoclopramide HCl 10 mg tablet 5 mg PO Q8H 09/04/19 10/22/23 History sacubitril 49 mg-valsartan 51 mg 1 tab PO AMPM 11/25/20 10/22/23 History tablet pantoprazole 40 mg tablet,delayed 80 mg PO .@NOON 03/10/21 10/22/23 History release tiotropium 2.5 mcg-olodaterol 2.5 2 puff inhalation QAM 12/02/22 10/22/23 History mcg/actuation mist for inhalation (Stiolto Respimat) nystatin 100,000 unit/gram topical 1 applic topical BID 02/23/23 10/22/23 History powder carvedilol 25 mg tablet 12.5 mg PO AMPM 04/06/23 10/22/23 History cetirizine 10 mg tablet 10 mg PO QDB 05/17/23 10/22/23 History epinephrine 0.3 mg/0.3 mL 0.3 mg IM DIRECTED PRN sEVERE 07/08/23 10/22/23 History injection, auto-injector ALLERGIC REACTION pramipexole 0.375 mg 0.375 mg PO QAM Parkinsonism #90 08/19/23 10/22/23 Rx tablet,extended release 24 hr tabs (Mirapex ER) bumetanide 1 mg tablet 1 mg PO QAM #90 tabs 10/10/23 10/22/23 Rx potassium chloride 20 mEq 20 meq PO BID #200 tabs 10/10/23 10/22/23 Rx tablet,extended release lanolin-mineral oil-NaCl-w.pet 1 ea topical TID 10/22/23 10/22/23 History lotion mometasone 50 mcg/actuation nasal 2 spray intranasal BID 10/22/23 10/22/23 History spray rosuvastatin 10 mg tablet 10 mg PO QPM 10/22/23 10/22/23 History warfarin 5 mg tablet 5 mg PO UD 10/22/23 10/22/23 History Past Med/Surg History Problem List (Updated 10/22/23 @ 14:00 by MICHELLE Arriaga) Near syncope (Acute) Tachycardia (Acute) Hypotension (Acute) Leg pain Pressure ulcer of right heel, stage 4 (Acute) Atrial fibrillation, controlled Elevated lactic acid level (Acute) Elevated INR (Acute) Cellulitis (Acute) Parkinsonism Stage III pressure ulcer of buttock (Acute) Unstageable pressure ulcer of right heel (Acute) Unstageable pressure ulcer of left heel (Acute) Centrilobular emphysema Bilateral foot-drop Esophagitis Hypoxia Dysphagia Vomiting Acute kidney injury Acute respiratory failure with hypoxia (Acute) Elevated troponin (Acute) Acute kidney failure (Acute) Sepsis (Acute) Pneumonia (Acute) Acute UTI (Acute) Acute on chronic hypoxic respiratory failure Severe sepsis Encounter for pre-operative examination Biliary dyskinesia (Chronic) Cellulitis of left arm Chest pain (Acute) Dog bite (Acute) Hand laceration (Acute) Right upper quadrant abdominal pain Multiple kidney stones Idiopathic peripheral neuropathy (Acute) Cervical spondylosis without myelopathy (Acute) Cervical radiculopathy (Acute) Episode of confusion Preop testing POWERS (dyspnea on exertion) Presence of biventricular automatic cardioverter/defibrillator (AICD) Complex renal cyst Benign essential hypertension 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 Agent orange exposure Warfarin anticoagulation (Chronic) Balance problem Bursitis of left elbow Ischemic cardiomyopathy (Acute) Euvolemic at 11/23/22 cardio appt Elevated PSA 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 Cervicogenic headache Spasticity upper limbs Medical History Peripheral arterial disease Hypertension Coronary artery disease Tremor ICD (implantable cardioverter-defibrillator) in place Neuropathy Complex sleep apnea syndrome NYHA class 4 acute on chronic systolic heart failure History of kidney stones Presence of combination internal cardiac defibrillator (ICD) and pacemaker first placed 2010 @ [facility] replaced in 2014 & 2021 @ [facility]--biventricular [employer]. reports last check 11/25/22. Emphysema lung Legally blind Chronic back pain History of urinary self-catheterization self caths every other night History of DVT of lower extremity 2010 Macular degeneration Hearing deficit Depression Migraine CAD (coronary artery disease) s/p stent 2010 Myocardial Infarction 10/2010--follows with Dr. Abreu Atrial fibrillation on warfarin--follows with Dr. Abreu Pulmonary embolism 1992 and 2010 after heart attack--follows with Dr. Abreu Asthma inhaler prn Sleep apnea bipap Chronic systolic congestive heart failure EF 25-30% Surgical History S/P epidural steroid injection History of foot surgery plantar fasciitis History of open reduction and internal fixation (ORIF) procedure left foot--hardware removed History of prostate biopsy x3--precancerous, just monitoring for now History of prostate surgery 07/2016--[facility] prostate vaproization History of cystoscopy multiple History of colonoscopy with polypectomy History of esophagogastroduodenoscopy (EGD) History of right inguinal hernia repair x3 History of Khari fundoplication History of cholecystectomy History of tooth extraction History of eye surgery right--macular degeneration History of bilateral cataract extraction History of cardiac cath 10/2010 @ [facility]--1 stent placed Family History Son Family history of diabetes mellitus Other Family history non-contributory No family history of adverse response to anesthesia Social History Smoking Status: Former smoker Second Hand Exposure: Yes (father smoked); Do You Dip or Chew Tobacco: No; Hx Alcohol Use: No Hx Substance Use: No Preferred Language: Yi Communication Ability: Effective Truck Driver'S Offsider Required: No Beliefs That Will Affect Care: None marital status: Current Living Situation: Alone current occupational status: retired Feels Safe at Home: Yes Assistive Devices: Bedside Commode, Walker, Wheelchair and Other Review of Systems Review of Systems: All systems reviewed & are unremarkable except as noted in Subjective Physical Exam Physical Exam: Head atraumatic normocephalic Neck supple Chest decreased breath sounds at bases Heart tachycardic, no murmurs gallops or rubs appreciated Abdomen soft, nontender, nondistended, bowel sounds present Extremities has a ulcer on the bottom of right foot, no signs of infection, left leg in a boot Neurologically he is alert awake oriented x 3, no focal deficit Results & Data Results & Data Vital Signs (Past 12 Hours) Vital Signs Temp Pulse Pulse Resp BP BP Pulse Ox 10/22/23 18:00 124 H 16 131/97 95 10/22/23 16:40 109 H 16 112/86 97 10/22/23 16:10 122 H 10/22/23 15:49 123 H 16 104/80 96 10/22/23 14:58 100 H 16 109/73 96 10/22/23 14:27 10/22/23 14:27 10/22/23 14:13 36.7 C 122 H 18 104/76 94 O2 Del Method 10/22/23 18:00 10/22/23 16:40 Room Air 10/22/23 16:10 10/22/23 15:49 10/22/23 14:58 Room Air 10/22/23 14:27 Room Air 10/22/23 14:27 Room Air 10/22/23 14:13 Room Air Laboratory Results Abnormal lab results 10/22/23 10/22/23 Range/Units 14:40 17:06 Hct 41.4 L (42.0-52.0) % RDW Coeff of Jerry 14.6 H (11.5-14.5) % Pitt # (Auto) 0.99 H (0.11-0.59) K/uL Eos # (Auto) 0.53 H (0.00-0.50) K/uL PT 26.9 H (9.0-12.0) Seconds INR 2.7 H (0.9-1.1) Sodium 135 L (136-145) mmol/L BUN/Creatinine Ratio 22.8 H (10-20) Glucose 107 H (70-99(Fasting)) mg/dl B-Natriuretic Peptide 461 H (0-100) pg/ml Diagnostic Findings Chest X-Ray 10/22/23 14:12 SINGLE VIEW CHEST CLINICAL HISTORY: Atypical chest pain. FINDINGS: An AP, portable, upright chest radiograph is compared to study dated 07/08/2023 and correlated with chest CT dated 03/04/2023. A multilead cardiac AICD is unchanged in position and largely obscures the left lower chest. The heart is enlarged noting atherosclerotic calcification of the thoracic ureter. There is pulmonary vascular congestion. Emphysema and chronic interstitial thickening is similar to previous. There are small pleural effusions with dependent consolidation. No pneumothorax is seen. The skeletal structures are osteopenic. The bony thorax is grossly intact. IMPRESSION: 1. Cardiomegaly and AICD with pulmonary vascular congestion. 2. Small pleural effusions with dependent consolidation. 3. Emphysema. ACT 112: Negative or not required by law. Electronically signed by: Ankush Byrnes M.D. 10/22/2023 3:04 PM PG Care Time/CCT Total # of Minutes Spent Total Time Spent with Patient: Total time spent is greater than 50% in coordination of care (as documented) at patient's floor/unit and/or counseling patient: Coding Level of Care Code 48889 INT INP/OBS CARE 3/75MIN Diagnoses Paroxysmal atrial fibrillation I48.0 Atrial fibrillation type: paroxysmal Chronic systolic congestive heart failure I50.22 Sleep apnea G47.30 Pulmonary embolism I26.99 Pressure ulcer of right heel, stage 4 L89.614 (1) Atrial fibrillation Atrial fibrillation type: paroxysmal Qualified Code(s): I48.0 - Paroxysmal atrial fibrillation
[2023-10-22] MEDS ORDERED: 0.2 MICRON FILTER SET 1 EACH IV ONE (20:59)
[2023-10-22] MEDS ORDERED: ALBUTEROL HFA 8 GM INHALER INH PRN (20:59)
[2023-10-22] MEDS ORDERED: [UNRECOGNIZED DRUG - OTHER] TOP SCH (21:00)
[2023-10-22] MEDS ORDERED: EPINEPHrine INJ 1 MG/ML AMP IV PRN (21:06)
[2023-10-22] MEDS: oxyCODONE HCL 10 MG TABCR (OxyCONTIN) PO SCH (22:01)
[2023-10-22] MEDS: DOCUSATE SODIUM 100 MG CAP PO SCH (22:01)
[2023-10-22] MEDS: AMIODARONE / D5W 150 MG/100 ML BAG IV STA (22:01)
[2023-10-22] MEDS: METOPROLOL TARTRATE 25 MG TAB PO SCH (22:02)
[2023-10-22] MEDS: NYSTATIN POWDER 15GM BTL EXT SCH (22:02)
[2023-10-22] MEDS: SENNA 8.6 MG TAB PO SCH (22:03)
[2023-10-22] MEDS: ROSUVASTATIN CALCIUM 10 MG TAB PO SCH (22:03)
[2023-10-22] MEDS: POTASSIUM CHLORIDE CRTAB 20 MEQ TABCR PO SCH (22:03)
[2023-10-22] MEDS: VALSARTAN/SACUBITRIL 51/49 MG TAB PO SCH (22:04)
[2023-10-23] MEDS: METOPROLOL TARTRATE 1 MG/ML VIAL IV STA (00:15)
[2023-10-23 01:18] LABS: Albumin Level 3.8 gm/dl (3.4-5.0); Bilirubin,Total 0.4 mg/dl (0.2-1.0); Calcium 8.9 mg/dl (8.6-10.3); Mean Corpuscular Hemoglobin 29.5 pg (25.0-34.0); Mean Corpuscular Hgb Conc 34.1 g/dL (32.0-36.0); Mean Corpuscular Volume 86.3 fL (80.0-100.0); Mean Platelet Volume 10.8 fL (9.4-12.4); Platelet Count 296 K/uL (130-400); Potassium 4.1 mmol/L (3.5-5.1); RDW Coefficient of Variation 14.4 % (11.5-14.5); RDW Standard Deviation 45.3 fL (36.4-46.3); Red Blood Count 4.75 M/uL (4.70-6.10); White Blood Count 9.56 K/ul (4.8-10.8)
[2023-10-23] MEDS: DIGOXIN 250 MCG in SYRINGE 9 ML IV ONE ×2 (01:19→06:35)
[2023-10-23 01:24] LABS: Albumin Globulin Ratio 1.2 (0.9-2); Creatinine Clr Calc Pharmacy 76.2 ml/min; Est GFR (African American) 83.2 ml/min; Est GFR (Non-African American) 71.8 ml/min; Globulin 3.2 gm/dl (2.5-4.0)
[2023-10-23 01:50] LABS: INR 2.2 (0.9-1.1); Prothrombin Time 22.5 Seconds (9.0-12.0)
[2023-10-23 05:55] LABS: Basophils # (auto) 0.05 K/uL (0.00-0.20); Basophils % (auto) 0.6 %; Eosinophils # (auto) 0.53 K/uL (0.00-0.50); Eosinophils % (auto) 6.1 %; Hematocrit (blood only) 40.1 % (42.0-52.0); Hemoglobin 13.5 g/dl (14.0-18.0); Immature Granulocytes # (auto) 0.04 K/uL (0.01-0.20); Immature Granulocytes % (auto) 0.5 %; Lymphocytes # (auto) 2.73 K/uL (1.20-3.40); Lymphocytes % (auto) 31.7 %; Mean Corpuscular Hemoglobin 29.5 pg (25.0-34.0); Mean Corpuscular Hgb Conc 33.7 g/dL (32.0-36.0); Mean Corpuscular Volume 87.6 fL (80.0-100.0); Mean Platelet Volume 10.4 fL (9.4-12.4); Monocytes # (auto) 0.78 K/uL (0.11-0.59); Neutrophils # (auto) 4.49 K/uL (1.40-6.50); Neutrophils % (auto) 52.1 %; Platelet Count 283 K/uL (130-400); RDW Coefficient of Variation 14.6 % (11.5-14.5); RDW Standard Deviation 46.3 fL (36.4-46.3); Red Blood Count 4.58 M/uL (4.70-6.10); White Blood Count 8.62 K/ul (4.8-10.8)
[2023-10-23 06:15] LABS: Albumin Globulin Ratio 1.2 (0.9-2); Albumin Level 3.6 gm/dl (3.4-5.0); BUN Creatinine Ratio 23.7 (10-20); Bilirubin,Total 0.3 mg/dl (0.2-1.0); Calcium 8.6 mg/dl (8.6-10.3); Creatinine Clr Calc Pharmacy 78.6 ml/min; Est GFR (African American) 86.3 ml/min; Est GFR (Non-African American) 74.5 ml/min; Globulin 2.9 gm/dl (2.5-4.0); Potassium 4.1 mmol/L (3.5-5.1); Total Protein 6.5 gm/dl (6.0-8.3)
[2023-10-23 06:16] LABS: Prothrombin Time 20.5 Seconds (9.0-12.0)
[2023-10-23] MEDS: CETIRIZINE HCL 10 MG TABLET PO SCH (08:48)
[2023-10-23] MEDS: BUMETANIDE 1 MG TAB PO SCH (08:48)
[2023-10-23] MEDS: FINASTERIDE 5 MG TAB PO SCH (08:48)
[2023-10-23] MEDS: UMECLIDINIUM/VILANTEROL 62.5/25MCG 7 PUFFS/INHALER INH SCH (08:48)
[2023-10-23] MEDS: ASPIRIN 81 MG ECTAB PO SCH (08:48)
[2023-10-23] MEDS: FLUTICASONE PROPIONATE NA SPR 16 GM BTL NAE SCH (08:49)
[2023-10-23] MEDS ORDERED: AMIODARONE IV BOLUS & DRIP IV STA (11:18)
[2023-10-23] MEDS ORDERED: STAT IV Infusion **Titration per Protocol STA (11:18)
[2023-10-23] MEDS ORDERED: 0.2 MICRON FILTER SET 1 EACH IV STA (11:18)
[2023-10-23] MEDS: AMIODARONE / D5W 150 MG/100 ML BAG IV STA (11:40)
--- NOTE | 2023-10-23 11:44 | Cardiology Consultation ---
Date of Consultation October 23, 2023 Assessment & Plan (1) Atrial tachycardia: (2) Presence of biventricular automatic cardioverter/defibrillator (AICD): (3) Coronary artery disease: (4) HFrEF (heart failure with reduced ejection fraction): (5) Benign essential hypertension: (6) Ischemic cardiomyopathy: (7) Paroxysmal atrial fibrillation: Plan ASSESSMENT/PLAN: 1. Atrial tachycardia: BiV ICD was interrogated in the ER but unfortunately those records are not available for review. Contacted [employer] customer response representative who was able to locate and review the interrogation. The rhythm is atrial driven, likely atrial tachycardia. Amiodarone recommended and ordered. TSH o rdered. Monitor TSH and transaminase levels if amiodarone is to be continued long-term. Has already received doses of intravenous digoxin and intravenous metoprolol, with moderate carvedilol dose as an outpatient, but despite all of this, persistent tachycardia. Although asymptomatic now, with reduced LV systolic function, if left tachycardic, can further reduce LV systolic function and exacerbate heart failure. Prior to interrogation evaluation, a magnet was placed on ICD this morning but did not terminate the arrhythmia and thus, not PMT. Would recommend close follow-up with his ip litigation paralegal. 2. Ischemic cardiomyopathy: Continue carvedilol and Entresto. Doses can be further titrated if not attempted in the past and no issues with tolerance. Recommend MRA such as spironolactone, if not attempted in the past and no contraindication. 3. Heart failure with reduced EF: Chronic issue. He does not appear hypervolemic today. NYHA class II. Continue outpatient dose of diuretic, Bumex 1 mg daily. Low-sodium diet. Strict I's and O's while hospitalized. Daily weights. Will resume carvedilol. Continue Entresto. Consider MRA and SGLT2 inhibitor. He is not here for heart failure exacerbation. Unclear if these medications have been attempted in the past. Can follow-up with primary car driver. 4. CAD s/p SC and RCA PCI (2010): No angina. Risk factor modification. Continue statin therapy. Continue aspirin therapy. Continue beta-clotilde. 5. Biventricular ICD: Interrogated in the ER. Report not available for personal review. [employer] customer response representative contacted and was able to relay findings via telephone. Close follow-up with Dr. Abreu, his ip litigation paralegal. 6. Paroxysmal atrial fibrillation: On anticoagulation therapy chronically due to recurrent PE/DVT. Consider Eliquis in place of warfarin. 7. Hypertension: Blood pressure initially hypotensive in the setting of tachycardia. Blood pressure has since normalized. Continue regimen as outlined above. 8. Disposition: Cardiology will continue to follow. On discharge, should follow-up with his primary cardiology team, Dr. Negron and Dr. Abreu. Care communicated with primary hospitalist, Dr. Peterson. Thank you for allowing me to participate in the care of your patient. Please call for any other questions or concerns. Sincerely, Gallo Barkley M.D. History of Present Illness Reason for Consultation: Tachycardia Requesting Physician: Dr. Teran Attending Physician: Tramaine Peterson MD History of Present Illness Mr. Louise is a very pleasant 78-year-old gentleman with a history significant for CAD, ischemic cardiomyopathy, biventricular ICD, paroxysmal atrial fibrillation, heart failure with reduced EF, sleep apnea, hypertension, dino pheral arterial disease, DVT/pulmonary embolism (recurrent), neuropathy and emphysema. His primary car driver is Dr. Negron and ip litigation paralegal, Dr. Abreu. He was hospitalized on 10/22/2023 due to tachycardia. He went to the wound center where he is receiving care for lower extremity wound. He was noted to be hypotensive and tachycardic and was felt to be in atrial fibrillation and sent to the ER for further evaluation. He was completely asymptomatic in that regard. He denies chest pain, shortness of breath, palpitations, syncope, or near syncope. He has chronic lower extremity swelling intermittently but no recent worsening. He denies ICD shock. He denies recent nausea, vomiting, or diarrhea. He denies fevers or chills. He denies orthopnea. While here, he has remained mostly tachycardic with heart rate 1 23-1 25 for the most part. His heart rate briefly dipped into the 60s for 1 to 2 hours in the early beginning at 2:06 AM, before once again tachycardia in the 120s with ventricular pacing. While here, he has received IV metoprolol and IV digoxin. At home he takes moderate dose of carvedilol and reports that he has not missed any doses. He maintains a low-sodium diet. He received IV fluids in the ER. Review of systems: As above. Family history: Noncontributory. Social history: Lives at home with his , who is present with him at the bedside. Quit smoking. No significant alcohol use. Allergies Allergy/AdvReac Type Severity Reaction Status Date / Time bee venom protein (honey bee) Allergy Severe SWELLING, Verified 10/22/23 16:01 SOB Penicillins Allergy Severe SWELLING, Verified 10/22/23 16:01 DIFFICULTY BREATHING lidocaine Allergy Mild RASH Verified 10/22/23 13:01 cefdinir AdvReac Severe Vomiting Verified 10/22/23 13:01 hydrocodone AdvReac Mild nausea Verified 10/22/23 13:01 oxycodone AdvReac Mild nausea-SLOW Verified 10/22/23 13:01 RELEASE IS OK Home Medications Medication Instructions Recorded Confirmed Type albuterol sulfate 90 mcg/actuation 2 puffs inhalation Q6H PRN 12/01/18 10/22/23 History aerosol inhaler Shortness Of Breath Or Wheezing bupropion HCl 100 mg tablet 100 mg PO BID 12/01/18 10/22/23 History docusate sodium 100 mg capsule 100 mg PO BID 12/01/18 10/22/23 History finasteride 5 mg tablet 5 mg PO QAM 12/01/18 10/22/23 History aspirin 81 mg tablet,delayed 81 mg PO QAM 12/21/18 10/22/23 History release oxycodone 10 mg tablet 10 mg PO Q12H 12/21/18 10/22/23 History sennosides 8.6 mg tablet 8.6 mg PO TID 12/21/18 10/22/23 History white petrolatum-mineral oil 56.8 1 applic ophthalmic (eye) HS 12/21/18 10/22/23 History %-42.5 % eye ointment (Refresh Lacri-Lube) metoclopramide HCl 10 mg tablet 5 mg PO Q8H 09/04/19 10/22/23 History sacubitril 49 mg-valsartan 51 mg 1 tab PO AMPM 11/25/20 10/22/23 History tablet pantoprazole 40 mg tablet,delayed 80 mg PO .@NOON 03/10/21 10/22/23 History release tiotropium 2.5 mcg-olodaterol 2.5 2 puff inhalation QAM 12/02/22 10/22/23 History mcg/actuation mist for inhalation (Stiolto Respimat) nystatin 100,000 unit/gram topical 1 applic topical BID 02/23/23 10/22/23 History powder carvedilol 25 mg tablet 12.5 mg PO AMPM 04/06/23 10/22/23 History cetirizine 10 mg tablet 10 mg PO QDB 05/17/23 10/22/23 History epinephrine 0.3 mg/0.3 mL 0.3 mg IM DIRECTED PRN sEVERE 07/08/23 10/22/23 History injection, auto-injector ALLERGIC REACTION pramipexole 0.375 mg 0.375 mg PO QAM Parkinsonism #90 08/19/23 10/22/23 Rx tablet,extended release 24 hr tabs ([employer] ER) bumetanide 1 mg tablet 1 mg PO QAM #90 tabs 10/10/23 10/22/23 Rx potassium chloride 20 mEq 20 meq PO BID #200 tabs 10/10/23 10/22/23 Rx tablet,extended release lanolin-mineral oil-NaCl-w.pet 1 ea topical TID 10/22/23 10/22/23 History lotion mometasone 50 mcg/actuation nasal 2 spray intranasal BID 10/22/23 10/22/23 History spray rosuvastatin 10 mg tablet 10 mg PO QPM 10/22/23 10/22/23 History warfarin 5 mg tablet 5 mg PO UD 10/22/23 10/22/23 History Problem List (Updated 10/23/23 @ 12:07 by Marcelino Barkley MD) Paroxysmal atrial fibrillation HFrEF (heart failure with reduced ejection fraction) Atrial tachycardia CHF (congestive heart failure) (Acute) Tachycardia (Acute) Hypotension (Acute) Pressure ulcer of right heel, stage 4 (Acute) Atrial fibrillation, controlled Parkinsonism Stage III pressure ulcer of buttock (Acute) Centrilobular emphysema Bilateral foot-drop Esophagitis Dysphagia Acute respiratory failure with hypoxia (Acute) Acute on chronic hypoxic respiratory failure Biliary dyskinesia (Chronic) Multiple kidney stones Idiopathic peripheral neuropathy (Acute) Cervical spondylosis without myelopathy (Acute) Cervical radiculopathy (Acute) Presence of biventricular automatic cardioverter/defibrillator (AICD) Complex renal cyst Benign essential hypertension Ulnar neuropathy of both upper extremities Agent orange exposure Warfarin anticoagulation (Chronic) Balance problem Bursitis of left elbow Ischemic cardiomyopathy (Acute) Euvolemic at 11/23/22 cardio appt Elevated PSA 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 Cervicogenic headache Spasticity upper limbs Patient History Medical History Elevated INR Near syncope Tachycardia Leg pain Elevated lactic acid level Elevated INR Cellulitis Pressure ulcer of left heel, stage 4 Unstageable pressure ulcer of right heel Unstageable pressure ulcer of left heel Hypoxia Vomiting Acute kidney injury Elevated troponin Acute kidney failure Acute UTI Pneumonia Sepsis Severe sepsis Encounter for pre-operative examination Intrinsic minus hand POWERS (dyspnea on exertion) Preop testing Episode of confusion Right upper quadrant abdominal pain Hand laceration Dog bite Chest pain Cellulitis of left arm Peripheral arterial disease Hypertension Coronary artery disease Tremor ICD (implantable cardioverter-defibrillator) in place Neuropathy Complex sleep apnea syndrome NYHA class 4 acute on chronic systolic heart failure History of kidney stones Presence of combination internal cardiac defibrillator (ICD) and pacemaker first placed 2010 @ [facility] replaced in 2014 & 2021 @ [facility]--biventricular [employer]. reports last check 11/25/22. Emphysema lung Legally blind Chronic back pain History of urinary self-catheterization self caths every other night History of DVT of lower extremity 2010 Macular degeneration Hearing deficit Depression Migraine CAD (coronary artery disease) s/p stent 2010 Myocardial Infarction 10/2010--follows with Dr. Abreu Atrial fibrillation on warfarin--follows with Dr. Abreu Pulmonary embolism 1992 and 2010 after heart attack--follows with Dr. Abreu Asthma inhaler prn Sleep apnea bipap Chronic systolic congestive heart failure EF 25-30% Surgical History S/P epidural steroid injection History of foot surgery plantar fasciitis History of open reduction and internal fixation (ORIF) procedure left foot--hardware removed History of prostate biopsy x3--precancerous, just monitoring for now History of prostate surgery 07/2016--[facility] prostate vaproization History of cystoscopy multiple History of colonoscopy with polypectomy History of esophagogastroduodenoscopy (EGD) History of right inguinal hernia repair x3 History of Khari fundoplication History of cholecystectomy History of tooth extraction History of eye surgery right--macular degeneration History of bilateral cataract extraction History of cardiac cath 10/2010 @ [facility]--1 stent placed Family History Son Family history of diabetes mellitus Other Family history non-contributory No family history of adverse response to anesthesia Social History Smoking Status: Former smoker Second Hand Exposure: Yes (father smoked); Do You Dip or Chew Tobacco: No; Hx Alcohol Use: No Hx Substance Use: No Preferred Language: Egyptian Communication Ability: Effective Relationship Specialist Required: No Beliefs That Will Affect Care: None marital status: Current Living Situation: Spouse Current Living Situation Comment: with Araceli current occupational status: retired Feels Safe at Home: Yes Assistive Devices: BiPap, Lift Chair, Oxygen - at Night, Scooter/Electric Scooter, Stair Lift, Walker and Wheelchair Physical Exam Physical Exam: Gen.: No acute distress. Alert and oriented. HEENT: Anicteric sclera. Neck: Thick neck but no appreciable JVD. No bruits. Normal carotid upstrokes bilaterally. Cardiac: No ventricular heave. Regular and tachycardic in the 120s. Normal S1- S2. No murmurs, rubs, or gallops. Pulmonary: Clear to auscultation bilaterally without wheezes, rales, or rhonchi. Abdomen: Soft, nontender, nondistended, with normoactive bowel sounds. No bruits noted. Extremities: 2+ radial pulses bilaterally. 2+ posterior tibialis pulses bilaterally. Trace bilateral lower extremity edema. No cyanosis. Psychiatric: Affect appears appropriate. Results & Data Vital Signs (Past 12 Hours) Vital Signs Temp Pulse Pulse Resp BP BP Pulse Ox 10/23/23 08:00 10/23/23 07:48 36.5 C 123 H 14 119/86 94 10/23/23 07:30 123 H 10/23/23 06:35 123 H 130/89 10/23/23 06:35 123 H 10/23/23 03:05 36.4 C L 63 16 114/67 91 10/23/23 02:30 63 99/62 L 10/23/23 02:05 63 10/23/23 01:21 123 H 105/69 10/23/23 01:19 124 H 10/23/23 00:30 123 H 112/81 10/23/23 00:15 125 H 108/68 O2 Del Method 10/23/23 08:00 Room Air 10/23/23 07:48 Room Air 10/23/23 07:30 10/23/23 06:35 10/23/23 06:35 10/23/23 03:05 Room Air 10/23/23 02:30 10/23/23 02:05 10/23/23 01:21 10/23/23 01:19 10/23/23 00:30 10/23/23 00:15 Intake & Output 10/21/23 10/22/23 10/23/23 10/24/23 06:59 06:59 06:59 06:59 Intake Total 500 / 500 Output Total 625 / 625 Balance -125 / -125 Weight 239 lb 239 lb Laboratory Results Laboratory Results - last 24 hr 10/22/23 10/22/23 10/22/23 14:40 16:36 17:06 WBC 8.97 RBC 4.78 Hgb 14.0 Hct 41.4 L MCV 86.6 MCH 29.3 MCHC 33.8 RDW Std Deviation 45.7 RDW Coeff of Jerry 14.6 H Plt Count 288 MPV 10.4 Immature Gran % (Auto) 0.7 Neut % (Auto) 49.7 Lymph % (Auto) 32.0 [place] % (Auto) 11.0 Eos % (Auto) 5.9 Baso % (Auto) 0.7 Neut # (Auto) 4.46 Lymph # (Auto) 2.87 [place] # (Auto) 0.99 H Eos # (Auto) 0.53 H Baso # (Auto) 0.06 Immature Gran # (Auto) 0.06 PT 26.9 H INR 2.7 H Sodium 135 L Potassium 4.5 Chloride 105 Carbon Dioxide 21 Anion Gap 9 BUN 23 Creatinine 1.01 Est Cr Clr Drug Dosing 76.3 Est GFR ( Amer) 82.2 Est GFR (Non-Af Amer) 70.9 BUN/Creatinine Ratio 22.8 H Glucose 107 H Calcium 8.6 Magnesium Total Bilirubin 0.3 AST 17 ALT 16 Alkaline Phosphatase 42 Troponin I High Sens 11.2 B-Natriuretic Peptide 461 H Total Protein 6.9 Albumin 3.8 Globulin 3.1 Albumin/Globulin Ratio 1.2 Lipase 34 Urine Color Yellow Urine Appearance Clear Urine pH 5.5 Ur Specific [place] 1.020 Urine Protein Negative Urine Glucose (UA) Negative Urine Ketones Negative Urine Blood Negative Urine Nitrite Negative Urine Bilirubin Negative Urine Urobilinogen Negative Ur Leukocyte Esterase Negative 10/23/23 10/23/23 00:47 05:21 WBC 9.56 8.62 RBC 4.75 4.58 L Hgb 14.0 13.5 L Hct 41.0 L 40.1 L MCV 86.3 87.6 MCH 29.5 29.5 MCHC 34.1 33.7 RDW Std Deviation 45.3 46.3 RDW Coeff of Jerry 14.4 14.6 H Plt Count 296 283 MPV 10.8 10.4 Immature Gran % (Auto) 0.5 Neut % (Auto) 52.1 Lymph % (Auto) 31.7 [place] % (Auto) 9.0 Eos % (Auto) 6.1 Baso % (Auto) 0.6 Neut # (Auto) 4.49 Lymph # (Auto) 2.73 [place] # (Auto) 0.78 H Eos # (Auto) 0.53 H Baso # (Auto) 0.05 Immature Gran # (Auto) 0.04 PT 22.5 H 20.5 H INR 2.2 H 2.0 H Sodium 134 L 136 Potassium 4.1 4.1 Chloride 102 104 Carbon Dioxide 22 23 Anion Gap 10 9 BUN 23 23 Creatinine 1.00 0.97 Est Cr Clr Drug Dosing 76.2 78.6 Est GFR ( Amer) 83.2 86.3 Est GFR (Non-Af Amer) 71.8 74.5 BUN/Creatinine Ratio 23.0 H 23.7 H Glucose 123 H 106 H Calcium 8.9 8.6 Magnesium 2.0 Total Bilirubin 0.4 0.3 AST 16 19 ALT 15 16 Alkaline Phosphatase 46 38 Troponin I High Sens B-Natriuretic Peptide Total Protein 7.0 6.5 Albumin 3.8 3.6 Globulin 3.2 2.9 Albumin/Globulin Ratio 1.2 1.2 Lipase Urine Color Urine Appearance Urine pH Ur Specific [place] Urine Protein Urine Glucose (UA) Urine Ketones Urine Blood Urine Nitrite Urine Bilirubin Urine Urobilinogen Ur Leukocyte Esterase Diagnostic Findings Labs reviewed and notable for normal hemoglobin, elevated BNP stable compared to 02/23/2023, normal high-sensitivity troponin, stable renal function, normal potassium, therapeutic INR, normal transaminase levels. ECG personally reviewed 10/22/2023 at 1420: Ventricular paced 122 bpm. ECG personally reviewed 10/23/2023 10:32 AM: Ventricular paced 124 bpm. Chest x-ray 10/22/2023: Pulmonary vascular congestion per radiology. Small pleural effusions. Emphysema. Echo 02/25/2023 report reviewed: Akinesis of the inferior and inferolateral wall segments. Otherwise global hypokinesis. EF 30 to 35%. Moderately reduced RV systolic function. Mild MR. Telemetry personally reviewed: Ventricular paced at approximately 2:06 AM on 10/23/2023, heart rate decreased from 120s to 60s and after approximately 1 to 2 hours, PVC occurred and once again the heart rate tachycardic in the 120s but ventricularly paced. History and physical report reviewed. Cardiac catheterization 11/19/10: 30% prox LAD. 50-60% prox LCx. 20-30% mid RCA stenosis followed by 100% occlusion. Multiple aspiration thrombectomies in mid to distal RCA and in the posterolateral branch as well as direct implantation of a 3.5 x 15 mm Xience KARINE. Medications Administered Current Inpatient Medications Acetaminophen (Acetaminophen 325 Mg Tab) 650 mg PO Q4H PRN PRN Reason: pain/fever Stop: 11/21/23 17:54 Al Hydrox/Mg Hydrox/Simethicone (Aluminum/Magnesium Susp 30 Ml Udc) 30 ml PO Q6H PRN PRN Reason: Dyspepsia Stop: 11/21/23 17:54 Albuterol (Albuterol Hfa 8 Gm Inhaler) 2 puffs INH Q6H PRN PRN Reason: Shortness Of Breath Or Wheezing Stop: 11/21/23 20:58 Aspirin (Aspirin 81 Mg Ectab) 81 mg PO QAM [facility] Stop: 11/22/23 08:59 Last Admin: 10/23/23 08:48 Dose: 81 mg Bumetanide (Bumetanide 1 Mg Tab) 1 mg PO QAM [facility] Stop: 11/22/23 08:59 Last Admin: 10/23/23 08:48 Dose: 1 mg Cetirizine HCl (Cetirizine Hcl 10 Mg Tablet) 10 mg PO QDB [facility] Stop: 11/22/23 07:29 Last Admin: 10/23/23 08:48 Dose: 10 mg Docusate Sodium (Docusate Sodium 100 Mg Cap) 100 mg PO BID [facility] Stop: 11/21/23 20:59 Last Admin: 10/23/23 08:47 Dose: 100 mg Epinephrine HCl (Epinephrine Inj 1 Mg/Ml Amp) 0.3 mg IV ONE PRN PRN Reason: SEVERE ALLERGY REACTION Stop: 11/21/23 21:05 Finasteride (Finasteride 5 Mg Tab) 5 mg PO QAM [facility] Stop: 11/22/23 08:59 Last Admin: 10/23/23 08:48 Dose: 5 mg Fluticasone Propionate (Fluticasone Propionate Na Spr 16 Gm Btl) 2 sprays DEB BID [facility] Stop: 11/22/23 08:59 Last Admin: 10/23/23 08:49 Dose: 2 sprays Amiodarone HCl/Dextrose (Nexterone / D5w) 360 mg in 200 mls @ 33.333 mls/hr IV ONE ONE Stop: 10/23/23 17:27 Amiodarone HCl/Dextrose (Nexterone / D5w) 360 mg in 200 mls @ 16.667 mls/hr IV .Q12H [facility] Stop: 11/22/23 17:29 Magnesium Hydroxide (Magnesium Hydroxide Susp 30 Ml Udc) 30 ml PO Q6H PRN PRN Reason: Constipation Stop: 11/21/23 17:54 Melatonin (Melatonin 3 Mg Tab) 3 mg PO HS PRN PRN Reason: Insomnia Stop: 11/21/23 17:54 Metoprolol Tartrate (Metoprolol Tartrate 25 Mg Tab) 25 mg PO TID [facility] Stop: 11/22/23 13:59 Miscellaneous (Mirapex Er--Order Awaiting Action) 1 each N/A QS [facility] Stop: 11/22/23 00:00 Last Admin: 10/23/23 11:40 Dose: Not Given Multi-Ingredient Cream (Artificial Tears Op Oint 3.5 Gm Tube) 1 appln OP HS [facility] Stop: 11/22/23 20:59 Nystatin (Nystatin Powder 15gm Btl) 1 appln EXT BID [facility] Stop: 11/21/23 20:59 Last Admin: 10/23/23 08:49 Dose: 1 appln Ondansetron HCl (Ondansetron Inj 2 Mg/Ml 2 Ml Vial) 4 mg IV Q6H PRN PRN Reason: Nausea Stop: 11/21/23 17:54 Oxycodone HCl (Oxycodone Hcl 10 Mg Tabcr (Oxycontin)) 10 mg PO BID@0600,1800 [facility] Stop: 11/05/23 21:14 Last Admin: 10/23/23 06:00 Dose: 10 mg Pantoprazole Sodium (Pantoprazole 40 Mg Tab) 80 mg PO DAILY@1200 [facility] Stop: 11/22/23 11:59 Polyethylene Glycol (Polyethylene (Miralax) 17 Gm Pack) 17 gm PO DAILY PRN PRN Reason: Constipation Stop: 11/21/23 17:54 Potassium Chloride (Potassium Chloride Crtab 20 Meq Tabcr) 20 meq PO BID [facility] Stop: 11/21/23 20:59 Last Admin: 10/23/23 08:47 Dose: 20 meq Rosuvastatin Calcium (Rosuvastatin Calcium 10 Mg Tab) 10 mg PO QPM [facility] Stop: 11/21/23 20:59 Last Admin: 10/22/23 22:03 Dose: 10 mg Sacubitril/Valsartan (Valsartan/Sacubitril 51/49 Mg Tab) 1 tab PO AMHS [facility] Stop: 11/21/23 21:29 Last Admin: 10/23/23 08:47 Dose: 1 tab Sennosides (Senna 8.6 Mg Tab) 8.6 mg PO TID [facility] Stop: 11/21/23 20:59 Last Admin: 10/23/23 08:47 Dose: 8.6 mg Umeclidinium/Vilanterol (Umeclidinium/Vilanterol 62.5/25mcg 7 Puffs/Inhaler) 1 puffs INH QAM [facility] Stop: 11/22/23 08:59 Last Admin: 10/23/23 08:48 Dose: 1 puffs Warfarin Sodium (Warfarin Sod 5 Mg Tab) 5 mg PO SuMoWeFrSa@1600 [facility] Stop: 11/22/23 15:59 Warfarin Sodium (Warfarin Sod 2.5 Mg Tab) 2.5 mg PO TuTh@1600 [facility] Stop: 11/25/23 15:59 PG Care Time/CCT Total # of Minutes Spent Total Time Spent with Patient: Total time spent is greater than 50% in coordination of care (as documented) at patient's floor/unit and/or counseling patient: Coding Level of Care Code 45496 INT INP/OBS CARE MIN Diagnoses Atrial tachycardia I47.19 Presence of biventricular automatic cardioverter/defibrillator (AICD) Z95.810 Coronary artery disease I25.10 HFrEF (heart failure with reduced ejection fraction) I50.20 Benign essential hypertension I10 Ischemic cardiomyopathy I25.5 Paroxysmal atrial fibrillation I48.0
[2023-10-23] MEDS: AMIODARONE / D5W 360 MG/200 ML BAG IV ONE (12:05)
[2023-10-23] MEDS: PANTOprazole 40 MG TAB PO SCH (12:05)
--- NOTE | 2023-10-23 12:51 | Hospitalist Progress Note ---
Date of Service October 23, 2023 Assessment & Plan (1) Atrial fibrillation: (2) Sleep apnea: (3) Pulmonary embolism: (4) Pressure ulcer of right heel, stage 4: Plan Patient is a 78 y/o male with PMHx of pA-fib (on Coumadin), HFrEF, ICD, CAD, ROSE on CPAP who was sent to ED from wound clinic due to hypotension and was found to be tachycardic with HR in 120s. Atrial tachycardia - HR consistently in 120s since admission, despite IV Metoprolol tartrate, Digoxin, and Coreg as outpatient - Coumadin continued with daily INR (goal 2-3) - Metoprolol tartrate dc - Consult copywriter Interrogated pacemaker and seems to be atrial driven (no PMT). Ordered TSH Due to risk of worsening already decreased LV systolic function, started Amiodarone; monitor TSH and LFTs if he stays with this med long-term Close f/u with sausage stringer (Dr. Abreu) HFrEF without current exacerbation // Hx ICD, Biventricular automatic cardioverter - No signs of fluid overload such as swelling or pulmonary edema - Last TTE (02/25/2023) Global hypokinesis w/ akinesis of RCA territory myocardium; EF of 30- 35%; no significant valvular disease - Continue Entresto and Coreg - Continue Bumex 1mg daily - Low sodium diet - Daily Is ad Os, plus daily weights - Consider adding Spironolactone and SGLT-2 inhibitor per cardiology recs Medication additions may be addressed in the outpatient setting as patient is not currently in CHF eacerbation ROSE - Continue home CPAP Hx of PE - On Coumadin, so low suspicion that current tachycardia is due to PE - If tachycardia persists , may consider chest CTA for r/o if appropriate Stage IV pressure ulcer in heel - Continue wound care FEN: None VTE ppx: Warfarin Diet: HH, Low sodium Dispo: Discharge back home once HR stable with recs to f/u closely with cardiology and PCP Code status: FULL Admission and Anticipated Discharge Date Admission Date: October 22, 2023 Supervising Physician Co-Signing Physician Notes Attending attestation Pt seen and examined in concert with Dr. Marshall. In agreement with the documented findings as noted in the resident documentation with any exceptions or additions as noted here. Patient resting in bed, tolerating POI well. Reports ongoing fatigue which is somewhat improved from admission, but still a hallmark of his RVR presentations. On examination, S1/S2 nl IRR/IRR. CTAB. Abd NT/ND BS+ve Atrial tachycardia w/ paroxysmal atrial fibrillation - cardiology consult, telemetry monitoring - amiodarone initiated per recommendation, continue carvedilol. Will discuss apixaban vs. warfarin with patient. HFrEF - chronic, stable - continue bumetanide, Entresto, carvedilol, ASA. Transition diet to 2gm sodium. Discuss re: SGLT-2i, MRA. Else see resident documentation as noted. Subjective Patient sitting at bedside chair and comfortable. Reports having some SOB due to having walked to bathroom recently. No associated chest pain, palpitations, or other symptoms. No other concerns. Review of Systems Review of Systems: As per HPI. Physical Exam Physical Exam: GENERAL: AAOx3, afebrile, calm, NAD CARDIO: tachycardic, no r/m/g RESPIRATORY: CTA b/l, normal respiratory effort, no respiratory distress GI: soft, nontender, nondistended EXTREMITIES: no swelling or calf tenderness in b/l LE, offloading shoes in b/l feet Results & Data Results & Data Vital Signs (Past 12 Hours) Vital Signs Temp Pulse Pulse Resp BP Pulse Ox O2 Del Method 10/23/23 11:45 36.2 C L 125 H 20 111/77 95 Room Air 10/23/23 08:00 Room Air 10/23/23 07:48 36.5 C 123 H 14 119/86 94 Room Air 10/23/23 07:30 123 H 10/23/23 06:35 123 H 130/89 10/23/23 06:35 123 H 10/23/23 03:05 36.4 C L 63 16 114/67 91 Room Air 10/23/23 02:30 63 99/62 L 10/23/23 02:05 63 10/23/23 01:21 123 H 105/69 10/23/23 01:19 124 H Resident Activity Tracking Resident Involvement: Resident Care Provided Care Provided: Adult Hospital Medicine (1) Atrial fibrillation Atrial fibrillation type: paroxysmal Qualified Code(s): I48.0 - Paroxysmal atrial fibrillation
[2023-10-23] MEDS ORDERED: METOPROLOL TARTRATE 25 MG TAB PO SCH (14:00)
[2023-10-23] MEDS: WARFARIN SOD 5 MG TAB PO SCH (15:58)
[2023-10-23] MEDS: AMIODARONE / D5W 360 MG/200 ML BAG IV SCH (17:25)
[2023-10-23] MEDS: carvediloL 12.5 MG TAB PO SCH (17:34)
--- NOTE | 2023-10-23 18:31 | Electrocardiogram Report ---
Test Reason : Blood Pressure : / mmHG Vent. Rate : 124 BPM Atrial Rate : 069 BPM P-R Int : 000 ms QRS Dur : 152 ms QT Int : 390 ms P-R-T Axes : 000 130 092 degrees QTc Int : 560 ms Ventricular-paced rhythm Abnormal ECG When compared with ECG of 22-OCT-2023 14:20, Vent. rate has increased BY 2 BPM Confirmed by Marcelino Barkley ([id number]) on 10/23/2023 6:30:56 PM Referred By: REFERRED SELF Confirmed By:Marcelino Barkley
[2023-10-23] MEDS: ARTIFICIAL TEARS OP OINT 3.5 GM TUBE OP SCH (21:37)
[2023-10-23] MEDS: OPTIRAY 320 125ml IV ONE (22:52)
--- NOTE | 2023-10-24 01:17 | Communication Note ---
Date of Service: October 24, 2023 Contacted by nursing ~10PM concerning pt's tachycardia. He had a 1hr period where his HR was in the 60s, but around 7:15PM/7:30PM pt became tachycardic agai n into the 120s after getting up and ambulating to the bathroom. Pt has been given multiple agents throughout the last 24 hrs to bring down his HR with the most recent one being amiodarone. He is currently on an amiodarone 0.5mg/min gtt (after receiving a 150mg bolus and ~6hrs at 1mg/min gtt). I spoke with the pt at bedside. He remains asymptomatic from a tachycardia standpoint; he denies chest pain, SOB, pleuritic chest pain, leg pain, etc. We discussed his prior PEs- he was originally taken off his warfarin after his first PE d/t insurance and then he "had another one 6 weeks later." Since then, he has been on warfarin (this has been at least since 2011). He states he does not miss doses of his warfarin and his INR is usually steady- his INR upon admission was 2.7. On exam, pt is calm, cooperative, and conversational. His breathing is non labored and his heart rhythm is regular but tachycardic. Although risk of PE is low considering pt is anticoagulated, d/t continued tachycardia despite multiple interventions, CTA was ordered. No PE found on CTA. Pt remained tachycardic to the 120s and stable. Due to pt's lack of symptoms, stability, and soft BPs, no dose changes made to his current amiodarone gtt.
--- NOTE | 2023-10-24 02:55 | CT Scan Report ---
Exam(s): CTA CHEST IV Amt: 120ml EXAM: CT Angiography Chest With Intravenous Contrast CLINICAL HISTORY: Reason for exam: PE, tachycardia. TECHNIQUE: Axial computed tomographic angiography images of the chest with intravenous contrast. CTDI is 40.27 mGy and DLP is 896.41 mGy-cm. Automated exposure control was utilized for the study. A dose lowering technique was utilized adhering to the principles of ALARA. MIP reconstructed images were created and reviewed. COMPARISON: None. FINDINGS: Pulmonary arteries: There is normal enhancement of the pulmonary arteries with no filling defect to suggest pulmonary embolus. Aorta: Atherosclerotic disease of aorta with no aneurysm. Lungs: Diffuse emphysematous changes with bilateral lower lobe bronchiectasis and larger bullae in the lung apices and bilateral posterior lung bases. There is bilateral lower lobe consolidation suggestive of atelectasis . Pleural space: Unremarkable. No significant effusion. No pneumothorax. Heart: There is mild cardiomegaly with coronary artery calcifications. No significant pericardial effusion. No evidence of RV dysfunction. Mediastinum: Moderate to large hiatal hernia. Bones/joints: Degenerative disease of the spine with no acute fracture or subluxation. Soft tissues: Unremarkable. Lymph nodes: Unremarkable. No enlarged lymph nodes. IMPRESSION: 1. No pulmonary embolus or aortic dissection. 2. Cardiomegaly with coronary artery calcifications. 3. Diffuse emphysematous changes as described with bilateral lower lobe bronchiectasis. 4. Bilateral lower lobe consolidation suggestive of atelectasis, cannot exclude residual infiltrates. Electronically signed by: Gregoria Akers MD 10/24/23 02:54 AM
[2023-10-24 06:13] LABS: Hematocrit (blood only) 42.5 % (42.0-52.0); Hemoglobin 14.3 g/dl (14.0-18.0); Mean Corpuscular Hemoglobin 29.2 pg (25.0-34.0); Mean Corpuscular Hgb Conc 33.6 g/dL (32.0-36.0); Mean Corpuscular Volume 86.7 fL (80.0-100.0); Mean Platelet Volume 10.1 fL (9.4-12.4); Platelet Count 268 K/uL (130-400); RDW Coefficient of Variation 14.5 % (11.5-14.5); White Blood Count 9.36 K/ul (4.8-10.8)
[2023-10-24 06:36] LABS: Albumin Globulin Ratio 1.2 (0.9-2); Albumin Level 3.6 gm/dl (3.4-5.0); BUN Creatinine Ratio 24.5 (10-20); Bilirubin,Total 0.3 mg/dl (0.2-1.0); Calcium 8.8 mg/dl (8.6-10.3); Creatinine Clr Calc Pharmacy 81.1 ml/min; Est GFR (African American) 89.6 ml/min; Est GFR (Non-African American) 77.3 ml/min; Globulin 3.1 gm/dl (2.5-4.0); Potassium 4.1 mmol/L (3.5-5.1); Total Protein 6.7 gm/dl (6.0-8.3)
[2023-10-24 08:43] LABS: INR 1.4 (0.9-1.1); Prothrombin Time 15.1 Seconds (9.0-12.0)
[2023-10-24] MEDS ORDERED: FAMOTIDINE 20 MG TAB PO PRN (09:45)
--- NOTE | 2023-10-24 10:22 | Hospitalist Progress Note ---
Date of Service October 24, 2023 Assessment & Plan (1) Atrial fibrillation: (2) Sleep apnea: (3) Pulmonary embolism: (4) Pressure ulcer of right heel, stage 4: Plan Patient is a 78 y/o male with PMHx of pA-fib (on Coumadin), HFrEF, ICD, CAD, ROSE on CPAP who was sent to ED from wound clinic due to hypotension and was found to be tachycardic with HR in 120s. Atrial tachycardia Chronic Coumadin use - HR consistently in 120s despite IV Metoprolol tartrate, Digoxin, and addition of Amiodarone yesterday - Patient still asymptomatic but new b/l LE selling noted on exam today - Coumadin continued with daily INR (goal 2-3) INR subtherapeutic today. After discussion with patient, will change to Eliquis - CTA ordered for r/o of PE as a cause and negative - TSH in normal range (~1.7) - Consult decontaminator Interrogated pacemaker and seems to be atrial driven (no PMT). Started Amiodarone yesterday w/o resolution of tachycardia; repeat Amiodarone bolus today HFrEF without current exacerbation // Hx ICD, Biventricular automatic cardioverter - No signs of fluid overload such as swelling or pulmonary edema - Last TTE (02/25/2023) Global hypokinesis w/ akinesis of RCA territory myocardium; EF of 30- 35%; no significant valvular disease - Continue Entresto and Coreg - Continue Bumex 1mg daily - Low sodium diet - Daily Is ad Os, plus daily weights - Consider adding Spironolactone and SGLT-2 inhibitor per cardiology recs Medication additions may be addressed in the outpatient setting as patient is not currently in CHF exacerbation ROSE - Continue home CPAP Stage IV pressure ulcer in heel - Continue wound care FEN: None VTE ppx: Eliquis Diet: HH, Low sodium Dispo: Discharge back home once HR stable with recs to f/u closely with cardiology and PCP Code status: FULL Admission and Anticipated Discharge Date Admission Date: October 22, 2023 Supervising Physician Co-Signing Physician Notes Attending attestation Pt seen and examined in concert with Dr. Marshall. In agreement with the documented findings as noted in the resident documentation with any exceptions or additions as noted here. Patient in chair at bedside feeling somewhat fatigued after washing up, eating breakfast. Still without symptomatic complaint aside from mild b/l lower extremity swelling. On examination, S1/S2 nl IRR/IRR. CTAB. Abd NT/ND BS+ve. 1+ pitting edema to the midshin bilaterally Atrial tachycardia w/ paroxysmal atrial fibrillation - cardiology consult, telemetry monitoring - amiodarone drip w/ repeat bolus today, continue carvedilol. Discuss apixaban vs. warfarin with patient today. HFrEF - chronic, stable - continue bumetanide, Entresto, carvedilol, ASA. 2gm sodium diet. Discuss re: SGLT-2i, MRA. Else see resident documentation as noted. Subjective Patient seen sitting on bedside chair and seemed slightly out of breath. Patient states he tends to get out of breath after he moves a round and that that is his baseline. Denies chest pain, SOB or palpitations. No other concerns. Review of Systems Review of Systems: As per HPI. Physical Exam Physical Exam: GENERAL: AAOx3, afebrile, calm, NAD CARDIO: tachycardic, no r/m/g RESPIRATORY: CTA b/l, normal respiratory effort, no respiratory distress GI: soft, nontender, mildly distended EXTREMITIES: swelling with some pitting in b/l LE, no calf tenderness Results & Data Results & Data Vital Signs (Past 12 Hours) Vital Signs Temp Pulse Pulse Resp BP Pulse Ox O2 Del Method 10/24/23 08:02 36.3 C L 128 H 16 109/80 92 Room Air 10/24/23 08:00 Room Air 10/24/23 07:00 124 H 10/24/23 03:10 36.4 C L 124 H 20 102/73 95 Room Air 10/23/23 22:59 36.9 C 124 H 19 118/84 94 Room Air Resident Activity Tracking Resident Involvement: Resident Care Provided Care Provided: Adult Hospital Medicine (1) Atrial fibrillation Atrial fibrillation type: paroxysmal Qualified Code(s): I48.0 - Paroxysmal atrial fibrillation
[2023-10-24] MEDS ORDERED: 0.2 MICRON FILTER SET 1 EACH IV ONE (10:55)
[2023-10-24] MEDS ORDERED: AMIODARONE / D5W 150 MG/100 ML BAG IV STA (11:09)
[2023-10-24] MEDS: AMIODARONE / D5W 150 MG/100 ML BAG IV STA (11:21)
--- NOTE | 2023-10-24 11:56 | Cardiology Progress Note ---
Date of Service October 24, 2023 Assessment & Plan (1) Atrial tachycardia: (2) Presence of biventricular automatic cardioverter/defibrillator (AICD): (3) Coronary artery disease: (4) HFrEF (heart failure with reduced ejection fraction): (5) Benign essential hypertension: (6) Ischemic cardiomyopathy: (7) Paroxysmal atrial fibrillation: Plan ASSESSMENT/PLAN: 1. Atrial tachycardia: Asymptomatic. BiV ICD was interrogated in the ER but unfortunately those records are not available for review. Contacted [facility] representative 10/23/23 who was able to locate and review the interrogation. The rhythm is atrial driven, likely atrial tachycardia. On amiodarone, had appr oximately 1 hour where rhythm converted to what appeared to be sinus on telemetry in the 60s with ventricular pacing. TSH normal. Monitor TSH and transaminase levels if amiodarone is to be continued long-term. Has already received doses of intravenous digoxin and intravenous metoprolol, with moderate carvedilol dose as an outpatient, but despite all of this, persistent tachycardia. Although asymptomatic now, with reduced LV systolic function, if left tachycardic, can further reduce LV systolic function and exacerbate heart failure. Prior to interrogation evaluation, a magnet was placed on ICD but did not terminate the arrhythmia and thus, not PMT. Recommend electrophysiology evaluation tomorrow when available, to possibly reinterrogate device and determine neck step in management if arrhythmia persists. 2. Ischemic cardiomyopathy: Continue carvedilol and Entresto. Doses can be further titrated if not attempted in the past and no issues with tolerance. Recommend MRA such as spironolactone, if not attempted in the past and no contraindication. 3. Heart failure with reduced EF: Chronic issue. He does not appear hypervolemic today. NYHA class III. Chronic and stable per patient report. Continue outpatient dose of diuretic, Bumex 1 mg daily. Low-sodium diet. Strict I's and O's while hospitalized. Daily weights. Continue carvedilol. Continue Entresto. Consider MRA and SGLT2 inhibitor. He is not here for heart failure exacerbation. Unclear if these medications have been attempted in the past. Can follow-up with primary production director. 4. CAD s/p [place] and RCA PCI (2010): No angina. Risk factor modification. Continue statin therapy. Continue aspirin therapy. Continue beta-clotilde. 5. Biventricular ICD: Interrogated in the ER. Report not available for personal review. [facility] representative contacted and was able to relay findings via telephone. Close follow-up with Dr. Abreu, his battery builder. Dr. Abreu to evaluate tomorrow. 6. Paroxysmal atrial fibrillation: On anticoagulation therapy chronically due to recurrent PE/DVT. Consider Eliquis in place of warfarin. 7. Hypertension: Blood pressure initially hypotensive in the setting of tachycardia. Blood pressure has since normalized. Continue regimen as outlined above. 8. Anticoagulation therapy: Has a history of recurrent DVT/PE. While INR subtherapeutic, recommend bridging with heparin. Consider Eliquis in place of warfarin long-term. 9. Disposition: Cardiology will continue to follow. On discharge, should follow-up with his primary cardiology team, Dr. Negron and Dr. Abreu. Care communicated with primary hospitalist, Dr. Marshall. Admission and Anticipated Discharge Date Admission Date: October 22, 2023 Subjective Patient was seen this morning. He denies chest pain. He denies shortness of breath at rest. He has chronic dyspnea on exertion which is stable. He denies palpitations. He has some bloating in his abdomen which is also a chronic issue and relieved with GI medications. He had a bowel movement which improved his bloated feeling. He denies syncope, near syncope, melena, hematochezia, or hematuria. He was seated in the chair and his was at the bedside. Physical Exam Physical Exam: Gen.: No acute distress. Alert and oriented. HEENT: Anicteric sclera. Neck: No JVD. Cardiac: No ventricular heave. Regular. Tachycardic in the 120s. Normal S1-S2. No murmurs, rubs, or gallops. Pulmonary: Clear to auscultation bilaterally without wheezes, rales, or rhonchi. Abdomen: Soft, nontender, nondistended, with normoactive bowel sounds. No bruits noted. Extremities: 2+ radial pulses bilaterally. 1+ posterior tibialis pulses bilaterally. Trace bilateral lower extremity edema. No cyanosis. Psychiatric: Affect appears appropriate. Results & Data Vital Signs (Past 12 Hours) Vital Signs Temp Pulse Pulse Resp BP Pulse Ox O2 Del Method 10/24/23 08:02 36.3 C L 128 H 16 109/80 92 Room Air 10/24/23 08:00 Room Air 10/24/23 07:00 124 H 10/24/23 03:10 36.4 C L 124 H 20 102/73 95 Room Air Intake & Output 10/22/23 10/23/23 10/24/23 10/25/23 06:59 06:59 06:59 06:59 Intake Total 500 / 500 1531.215 / 1531.215 100 / 100 Output Total 625 / 625 1603 / 1603 Balance -125 / -125 -71.785 / -71.785 100 / 100 Weight 239 lb 239 lb Laboratory Results Laboratory Results - last 24 hr 10/23/23 10/24/23 10/24/23 05:21 05:47 07:49 WBC 9.36 RBC 4.90 Hgb 14.3 Hct 42.5 MCV 86.7 MCH 29.2 MCHC 33.6 RDW Std Deviation 46.0 RDW Coeff of Jerry 14.5 Plt Count 268 MPV 10.1 PT 15.1 H INR 1.4 H Sodium 134 L Potassium 4.1 Chloride 103 Carbon Dioxide 21 Anion Gap 10 BUN 23 Creatinine 0.94 Est Cr Clr Drug Dosing 81.1 Est GFR ( Amer) 89.6 Est GFR (Non-Af Amer) 77.3 BUN/Creatinine Ratio 24.5 H Glucose 116 H Calcium 8.8 Magnesium 2.0 Total Bilirubin 0.3 AST 16 ALT 16 Alkaline Phosphatase 38 Total Protein 6.7 Albumin 3.6 Globulin 3.1 Albumin/Globulin Ratio 1.2 TSH 1.751 Diagnostic Findings Labs reviewed and notable for stable blood counts, stable renal function, normal potassium, normal TSH, normal transaminase levels. Telemetry personally reviewed: Ventricular paced and tachycardic in the 120s however for approximately 1 hour from 1806 to 1908 on 10/23/2023, rhythm appeared sinus with ventricular pacing in the 60s. Wide-complex tachycardia nonsustained this morning at 9:25 AM. Medications Administered Current Inpatient Medications Acetaminophen (Acetaminophen 325 Mg Tab) 650 mg PO Q4H PRN PRN Reason: pain/fever Stop: 11/21/23 17:54 Al Hydrox/Mg Hydrox/Simethicone (Aluminum/Magnesium Susp 30 Ml Udc) 30 ml PO Q6H PRN PRN Reason: Dyspepsia Stop: 11/21/23 17:54 Albuterol (Albuterol Hfa 8 Gm Inhaler) 2 puffs INH Q6H PRN PRN Reason: Shortness Of Breath Or Wheezing Stop: 11/21/23 20:58 Aspirin (Aspirin 81 Mg Ectab) [facility] [place] Stop: 11/22/23 08:59 Last Admin: 10/24/23 08:37 Dose: 81 mg Bumetanide (Bumetanide 1 Mg Tab) 1 mg PO QAM [facility] Stop: 11/22/23 08:59 Last Admin: 10/24/23 08:37 Dose: 1 mg Carvedilol (Carvedilol 12.5 Mg Tab) 12.5 mg PO BIDM [facility] [place] Stop: 11/22/23 16:59 Last Admin: 10/24/23 08:36 Dose: 12.5 mg Cetirizine HCl (Cetirizine Hcl 10 Mg Tablet) 10 mg PO QDB [facility] [place] Stop: 11/22/23 07:29 Last Admin: 10/24/23 08:37 Dose: 10 mg Docusate Sodium (Docusate Sodium 100 Mg Cap) 100 mg PO BID [facility] [place] Stop: 11/21/23 20:59 Last Admin: 10/24/23 08:36 Dose: 100 mg Epinephrine HCl (Epinephrine Inj 1 Mg/Ml Amp) 0.3 mg IV ONE PRN PRN Reason: SEVERE ALLERGY REACTION Stop: 11/21/23 21:05 Famotidine (Famotidine 20 Mg Tab) 20 mg PO BID PRN PRN Reason: indigestion Stop: 11/23/23 09:44 Finasteride (Finasteride 5 Mg Tab) 5 mg PO [facility] Stop: 11/22/23 08:59 Last Admin: 10/24/23 08:36 Dose: 5 mg Fluticasone Propionate (Fluticasone Propionate Na Spr 16 Gm Btl) 2 sprays DEB BID [facility] Stop: 11/22/23 08:59 Last Admin: 10/24/23 08:35 Dose: 2 sprays Amiodarone HCl/Dextrose (Nexterone / D5w) 360 mg in 200 mls @ 16.667 mls/hr IV .Q12H [facility] Stop: 11/22/23 17:29 Last Admin: 10/24/23 04:52 Dose: 0.5 mg/min, 16.7 mls/hr Magnesium Hydroxide (Magnesium Hydroxide Susp 30 Ml Udc) 30 ml PO Q6H PRN PRN Reason: Constipation Stop: 11/21/23 17:54 Melatonin (Melatonin 3 Mg Tab) 3 mg PO HS PRN PRN Reason: Insomnia Stop: 11/21/23 17:54 Miscellaneous (Mirapex Er--Order Awaiting Action) 1 each N/A QS [facility] Stop: 11/22/23 00:00 Last Admin: 10/24/23 08:37 Dose: Not Given Multi-Ingredient Cream (Artificial Tears Op Oint 3.5 Gm Tube) 1 appln OP HS [facility] Stop: 11/22/23 20:59 Last Admin: 10/23/23 21:37 Dose: 1 appln Nystatin (Nystatin Powder 15gm Btl) 1 appln EXT BID [facility] Stop: 11/21/23 20:59 Last Admin: 10/24/23 08:38 Dose: 1 appln Ondansetron HCl (Ondansetron Inj 2 Mg/Ml 2 Ml Vial) 4 mg IV Q6H PRN PRN Reason: Nausea Stop: 11/21/23 17:54 Oxycodone HCl (Oxycodone Hcl 10 Mg Tabcr (Oxycontin)) 10 mg PO BID@0600,1800 [facility] Stop: 11/05/23 21:14 Last Admin: 10/24/23 05:44 Dose: 10 mg Pantoprazole Sodium (Pantoprazole 40 Mg Tab) 80 mg PO DAILY@1200 [facility] Stop: 11/22/23 11:59 Last Admin: 10/24/23 11:22 Dose: 80 mg Polyethylene Glycol (Polyethylene (Miralax) 17 Gm Pack) 17 gm PO DAILY PRN PRN Reason: Constipation Stop: 11/21/23 17:54 Potassium Chloride (Potassium Chloride Crtab 20 Meq Tabcr) 20 meq PO BID [facility] [place] Stop: 11/21/23 20:59 Last Admin: 10/24/23 08:36 Dose: 20 meq Rosuvastatin Calcium (Rosuvastatin Calcium 10 Mg Tab) 10 mg PO QPM [facility] [place] Stop: 11/21/23 20:59 Last Admin: 10/23/23 21:31 Dose: 10 mg Sacubitril/Valsartan (Valsartan/Sacubitril 51/49 Mg Tab) 1 tab PO AMHS [facility] [place] Stop: 11/21/23 21:29 Last Admin: 10/24/23 08:36 Dose: 1 tab Sennosides (Senna 8.6 Mg Tab) 8.6 mg PO TID [facility] [place] Stop: 11/21/23 20:59 Last Admin: 10/24/23 08:36 Dose: 8.6 mg Umeclidinium/Vilanterol (Umeclidinium/Vilanterol 62.5/25mcg 7 Puffs/Inhaler) 1 puffs INH QAM [facility] Stop: 11/22/23 08:59 Last Admin: 10/24/23 08:35 Dose: 1 puffs Warfarin Sodium (Warfarin Sod 5 Mg Tab) 5 mg PO SuMoWeFrSa@1600 [facility] Stop: 11/22/23 15:59 Last Admin: 10/23/23 15:58 Dose: 5 mg Warfarin Sodium (Warfarin Sod 2.5 Mg Tab) 2.5 mg PO TuTh@1600 [facility] Stop: 11/25/23 15:59 PG Care Time/CCT Total # of Minutes Spent Total Time Spent with Patient: Total time spent is greater than 50% in coordination of care (as documented) at patient's floor/unit and/or counseling patient: Coding Level of Care Code 33319 SUB INP/OBS CARE 3/50MIN Diagnoses Atrial tachycardia I47.19 Presence of biventricular automatic cardioverter/defibrillator (AICD) Z95.810 Coronary artery disease I25.10 HFrEF (heart failure with reduced ejection fraction) I50.20 Benign essential hypertension I10 Ischemic cardiomyopathy I25.5 Paroxysmal atrial fibrillation I48.0
--- NOTE | 2023-10-24 14:29 | Electrocardiogram Report ---
Test Reason : Blood Pressure : / mmHG Vent. Rate : 127 BPM Atrial Rate : 019 BPM P-R Int : 000 ms QRS Dur : 150 ms QT Int : 400 ms P-R-T Axes : 000 121 086 degrees QTc Int : 581 ms Poor data quality, interpretation may be adversely affected Ventricular-paced rhythm Abnormal ECG When compared with ECG of 23-OCT-2023 10:32, Vent. rate has increased BY 3 BPM Confirmed by Marcelino Barkley ([id number]) on 10/24/2023 2:29:00 PM Referred By: REFERRED SELF Confirmed By:Marcelino Barkley
[2023-10-24] MEDS: APIXABAN 5 MG TABLET PO SCH (20:21)
[2023-10-25 07:15] LABS: Hematocrit (blood only) 42.6 % (42.0-52.0); Hemoglobin 14.6 g/dl (14.0-18.0); Mean Corpuscular Hemoglobin 29.4 pg (25.0-34.0); Mean Corpuscular Hgb Conc 34.3 g/dL (32.0-36.0); Mean Corpuscular Volume 85.9 fL (80.0-100.0); Mean Platelet Volume 10.8 fL (9.4-12.4); Platelet Count 272 K/uL (130-400); RDW Coefficient of Variation 14.3 % (11.5-14.5); RDW Standard Deviation 44.6 fL (36.4-46.3); Red Blood Count 4.96 M/uL (4.70-6.10)
--- NOTE | 2023-10-25 08:56 | Cardiology Progress Note ---
Date of Service October 25, 2023 Assessment & Plan (1) Atrial tachycardia: (2) Paroxysmal atrial fibrillation: (3) Presence of biventricular automatic cardioverter/defibrillator (AICD): Plan 1. Atrial tachycardia: His current rhythm appears to be a very regular atrial tachycardia at about 130 bpm. Interestingly on presentation it was slower at 120 bpm but appears to be the same rhythm, it has gradually increased despite use of beta-blockers and amiodarone. Using his pacemaker we can see that his intrinsic conduction is 2-1 AV conduction, not one-to-one, however we then lose the benefit of biventricular pacing. The current rate however is too fast and we need to control his ventricular rate somehow and we probably cannot do it by controlling the atrial rhythm. I think we need to rely on ICD reprogramming. 2. Atrial fibrillation: In the past he has had atrial fibrillation, we have not seen evidence of that here and this appears to be a regular atrial tachycardia. 3. ICD: His ICD is functioning well, although with his current rhythm the resulting rapid ventricular pacing is not ideal. I have reprogrammed his device to a single-chamber mode so it will no longer track atrial activity (the atrial rate is too slow to properly mode switch or allow atrial antitachycardia pacing). I have programmed the rate to 80 bpm with rate response. For the most part this results in a biventricular paced rhythm with some intrinsic AV conduction. We should consider AV tre ablation, there is little downside to that and if we can in the future control his atrial rhythm so that he is in sinus rhythm most of the time the device can be reprogrammed to track that rhyt hm. If he remains in this rhythm even following AV tre ablation we will not be able to use dual-chamber mode for the same reason as if he has intact AV conduction, so VVIR mode would be preferable. Admission and Anticipated Discharge Date Admission Date: October 22, 2023 Subjective Patient examined and chart reviewed. In brief, he has a long history of systolic dysfunction and paroxysmal atrial fibrillation, in July 2022 his ejection fraction was 25 to 30% and he has had a biventricular ICD in place for 8 years and it has been working appropriately. He has been evaluated while in atrial fibrillation although his symptoms did not correlate very well with that arrhythmia, which had been relatively infrequent historically. I do not believe we have documented an atrial tachycardia in the past. He presented to the emergency room on February 23, 2023 with what appeared to be pneumonia and sepsis, he was admitted and treated. He continued to have difficulty with oxygenation and an echocardiogram done February 25, 2023 shows global hypokinesis with an ejection fraction of 30 to 35% and felt to be similar to prior measurements. I last saw him May 17, 2023 in the office, at that time he was confined to a wheelchair primarily due to having some heel ulcers rather than difficulty with exertion. Based on remote monitoring he has continued to have episodes of atrial arrhythmias including "SVT" as well as atrial fibrillation. At the wound center he was observed to have a rapid heart rate, was therefore sent to the emergency room where he was ventricular pacing at a rapid heart rate for the most part. This appeared to be tracking atrial activity, possibly an atrial tachycardia. Attempts were made to control the arrhythmia using beta-blockade and more recently amiodarone. He remains on an amiodarone drip, he is also on carvedilol 12.5 mg twice a day and he remains on Eliquis. His rhythm has remained at 130 bpm with atrial sensing and ventricular pacing. He does not feel this but it can be detrimental in the long run and medications do not seem to be helping. His activities remain quite limited, he is able to walk with a walker but cannot perform a lot of activities. This does not seem to be due to any cardiovascular limitation however. Physical Exam Physical Exam: Constitutional: Alert, cooperative and in no distress. HEENT: Unremarkable Neck: No jugular venous distention, carotid pulses are normal and equal bilaterally without bruits. Pulmonary: Clear to auscultation bilaterally. Cardiac: Regular rapid rhythm with no murmur, gallop or rub. Abdomen: Soft, nontender with normal bowel sounds. Extremities: No edema. Distal pulses intact. Neurologic: No focal findings. Skin: The device site is well-healed without erythema, swelling or tenderness. No rash, ecchymoses or petechiae. Results & Data Vital Signs (Past 12 Hours) Vital Signs Temp Pulse Pulse Resp BP Pulse Ox O2 Del Method 10/25/23 07:35 36.3 C L 130 H 18 110/74 95 Room Air 10/25/23 05:02 130 H 10/25/23 03:01 36.3 C L 65 18 113/72 93 Nasal Cannula 10/25/23 02:06 63 10/24/23 22:25 36.5 C 126 H 18 99/71 L 96 Nasal Cannula 10/24/23 21:37 119 H O2 Flow Rate 10/25/23 07:35 10/25/23 05:02 10/25/23 03:01 3 10/25/23 02:06 10/24/23 22:25 2 10/24/23 21:37 Laboratory Results Cardiac Enzymes 10/25/23 Range/Units 06:29 AST 15 (13-39) U/L CBC 10/25/23 Range/Units 06:29 WBC 10.00 (4.8-10.8) K/ul RBC 4.96 (4.70-6.10) M/uL Hgb 14.6 (14.0-18.0) g/dl Hct 42.6 (42.0-52.0) % Plt Count 272 (130-400) K/uL Comprehensive Metabolic Panel 10/25/23 Range/Units 06:29 Sodium 133 L (136-145) mmol/L Potassium 4.1 (3.5-5.1) mmol/L Chloride 101 (98-107) mmol/L Carbon Dioxide 21 (21-32) mmol/L BUN 23 (6-23) mg/dl Creatinine 1.00 (0.6-1.4) mg/dl Glucose 117 H (70-99(Fasting)) mg/dl Calcium 9.2 (8.6-10.3) mg/dl AST 15 (13-39) U/L ALT 15 (7-52) U/L Alkaline Phosphatase 44 (34-104) U/L Total Protein 7.0 (6.0-8.3) gm/dl Albumin 3.8 (3.4-5.0) gm/dl Intake and Output 10/25/23 10/25/23 10/25/23 06:59 14:59 22:59 Intake Total 182.03 / 1728.792 200 / 1040 840 / 1040 Output Total 1 150 / 150 Balance -18.97 / -222.208 200 / 890 690 / 890 Intake: IV 182.03 / 468.792 200 / 200 Amiodarone / D5w 360 mg In 200 182.03 / 368.792 200 / 200 ml @ 0.5 MG/MIN 16.667 mls/hr IV .Q12H TEDDY Rx#:[id number] Oral 840 / 840 Output: Urine 200 / 1950 150 / 150 # Bowel Movements Other: # Unmeasured Voids 1 Diagnostic Findings Telemetry: For the most part he is in an atrial tachycardia at 130 bpm, there have been several times over the last 2 days when he converted to sinus rhythm but those are relatively infrequent and relatively brief. At current device settings he is sensing in the atrium and pacing in the ventricle which is appropriate for the programming but not ideal. PG Care Time/CCT Total # of Minutes Spent Total Time Spent with Patient: Total time spent is greater than 50% in coordination of care (as documented) at patient's floor/unit and/or counseling patient: Coding Level of Care Code 71671 SUB INP/OBS CARE 3/50MIN Diagnoses Atrial tachycardia I47.19 Paroxysmal atrial fibrillation I48.0 Presence of biventricular automatic cardioverter/defibrillator (AICD) Z95.810 CPT Codes Implantable Defib Multi lead programming - 07024 ([id number])
--- NOTE | 2023-10-25 09:20 | Hospitalist Progress Note ---
Date of Service October 25, 2023 Assessment & Plan (1) Atrial fibrillation: (2) Sleep apnea: (3) Pulmonary embolism: (4) Pressure ulcer of right heel, stage 4: Plan Patient is a 78 y/o male with PMHx of pA-fib (on Coumadin), HFrEF, ICD, CAD, ROSE on CPAP who was sent to ED from wound clinic due to hypotension and was found to be tachycardic with HR in 120s. Atrial tachycardia Chronic anticoagulation - HR consistently in 120s despite IV Metoprolol tartrate, Digoxin, and addition of Amiodarone IV - Patient still asymptomatic - After discussion with patient, changed Warfarin to Eliquis. Called pharmacy and stated patient would have co-pay of ~$20. Discount card will also given. - Consult manager of broadcast content Dr. Abreu to evaluate patient today and assess pacemaker to see if adjusting device would help with controlling HR HFrEF without current exacerbation // Hx ICD, Biventricular automatic cardioverter - No signs of fluid overload such as swelling or pulmonary edema - Last TTE (02/25/2023) Global hypokinesis w/ akinesis of RCA territory myocardium; EF of 30- 35%; no significant valvular disease - Continue Entresto and Coreg - Continue Bumex 1mg daily - Low sodium diet - Consider adding Spironolactone and SGLT-2 inhibitor per cardiology recs Medication additions may be addressed in the outpatient setting as patient is not currently in CHF exacerbation ROSE - Continue home CPAP Stage IV pressure ulcer in heel - Continue wound care FEN: None VTE ppx: Eliquis Diet: HH, Low sodium Dispo: Discharge back home once HR stable with recs to f/u closely with cardiology and PCP Code status: FULL Admission and Anticipated Discharge Date Admission Date: October 22, 2023 Supervising Physician Co-Signing Physician Notes I personally examined the patient and verified all arias points of history and exam, discussed case, and agree with decision making with Dr Marshall Feeling okay. No acute complaints. Cardiology input greatly appreciated. Vitals noted, in general he is awake and alert pleasant no distress. Breathing unlabored no accessory muscle use good effort. Skin without rashes pallor or icterus. Neuro without focal deficits. Atrial tachycardia w/ paroxysmal atrial fibrillation - Appreciate cardiology consult, management per cardiology HFrEF - chronic, stable - continue bumetanide, Entresto, carvedilol, ASA. 2gm sodium diet. Discuss re: SGLT-2i, MRA. hopefully home soon. Otherwise as above. Subjective Patient sitting at bedside chair. Refers having some fluttering in his chest where his pacemaker is but no chest pain or SOB/POWERS worse than his baseline. No fevers, chills, weakness, or any other symptom. No other concerns. Review of Systems Review of Systems: As per HPI. Physical Exam Physical Exam: GENERAL: AAOx3, afebrile, calm, NAD CARDIO: tachycardic, no r/m/g RESPIRATORY: CTA b/l, normal respiratory effort, no respiratory distress GI: soft, nontender, mildly distended EXTREMITIES: swelling with mild pitting in b/l LE relatively unchanged from yesterday's exam, no calf tenderness Results & Data Results & Data Vital Signs (Past 12 Hours) Vital Signs Temp Pulse Pulse Resp BP Pulse Ox O2 Del Method 10/25/23 07:35 36.3 C L 130 H 18 110/74 95 Room Air 10/25/23 07:00 128 H 10/25/23 05:02 130 H 10/25/23 03:01 36.3 C L 65 18 113/72 93 Nasal Cannula 10/25/23 02:06 63 10/24/23 22:25 36.5 C 126 H 18 99/71 L 96 Nasal Cannula 10/24/23 21:37 119 H O2 Flow Rate 10/25/23 07:35 10/25/23 07:00 10/25/23 05:02 10/25/23 03:01 3 10/25/23 02:06 10/24/23 22:25 2 10/24/23 21:37 Resident Activity Tracking Resident Involvement: Resident Care Provided Care Provided: Adult Hospital Medicine (1) Atrial fibrillation Atrial fibrillation type: paroxysmal Qualified Code(s): I48.0 - Paroxysmal atrial fibrillation
[2023-10-25 10:47] LABS: Albumin Level 3.8 gm/dl (3.4-5.0); Bilirubin,Total 0.5 mg/dl (0.2-1.0); Calcium 9.2 mg/dl (8.6-10.3); Potassium 4.1 mmol/L (3.5-5.1)
[2023-10-25 10:53] LABS: Albumin Globulin Ratio 1.2 (0.9-2); Creatinine Clr Calc Pharmacy 76.2 ml/min; Est GFR (African American) 83.2 ml/min; Est GFR (Non-African American) 71.8 ml/min; Globulin 3.2 gm/dl (2.5-4.0)
--- NOTE | 2023-10-25 18:59 | Billing Data ---
Date of Service October 25, 2023 Coding Level of Care Code 83879 SUB INP/OBS CARE
[2023-10-26 07:28] LABS: Hematocrit (blood only) 44.4 % (42.0-52.0); Hemoglobin 14.7 g/dl (14.0-18.0); Mean Corpuscular Hemoglobin 28.9 pg (25.0-34.0); Mean Corpuscular Hgb Conc 33.1 g/dL (32.0-36.0); Mean Corpuscular Volume 87.4 fL (80.0-100.0); Mean Platelet Volume 10.4 fL (9.4-12.4); Platelet Count 244 K/uL (130-400); RDW Coefficient of Variation 14.4 % (11.5-14.5); RDW Standard Deviation 46.2 fL (36.4-46.3); Red Blood Count 5.08 M/uL (4.70-6.10); White Blood Count 9.33 K/ul (4.8-10.8)
[2023-10-26 08:09] LABS: Albumin Level 3.8 gm/dl (3.4-5.0); Bilirubin,Total 0.4 mg/dl (0.2-1.0); Calcium 8.7 mg/dl (8.6-10.3); Potassium 4.1 mmol/L (3.5-5.1)
[2023-10-26 08:15] LABS: Albumin Globulin Ratio 1.3 (0.9-2); BUN Creatinine Ratio 26.7 (10-20); Creatinine Clr Calc Pharmacy 75.5 ml/min; Est GFR (African American) 82.2 ml/min; Est GFR (Non-African American) 70.9 ml/min; Total Protein 6.8 gm/dl (6.0-8.3)
--- NOTE | 2023-10-26 09:48 | Cardiology Progress Note ---
Date of Service October 26, 2023 Assessment & Plan (1) Atrial tachycardia: (2) Paroxysmal atrial fibrillation: (3) Presence of biventricular automatic cardioverter/defibrillator (AICD): Plan 1. Atrial tachycardia: His current rhythm appears to be a very regular atrial tachycardia at about 130 bpm. Interestingly on presentation it was slower at 120 bpm but appears to be the same rhythm, it has gradually increased despite use of beta-blockers and amiodarone. Using his pacemaker we can see that his intrinsic conduction is 2-1 AV conduction, not one-to-one, however we then lose the benefit of biventricular pacing. The current rate however is too fast and we need to control his ventricular rate somehow and we probably cannot do it by controlling the atrial rhythm. I think we need to rely on ICD reprogramming. 2. Atrial fibrillation: In the past he has had atrial fibrillation, we have not seen evidence of that here and this appears to be a regular atrial tachycardia. 3. ICD: His ICD is functioning well, although with his current rhythm the resulting rapid ventricular pacing is not ideal. I have reprogrammed his device to a single-chamber mode so it will no longer track atrial activity (the atrial rate is too slow to properly mode switch or allow atrial antitachycardia pacing). I have programmed the rate to 80 bpm with rate response. For the most part this results in a biventricular paced rhythm with some intrinsic AV conduction. On telemetry he appears to be paced at 80 bpm, for the most part I believe it is appropriate biventricular pacing although there may be some intrinsic conduction with a pacing spike which is used to try to resynchronize t he beat even with intrinsic conduction. At the moment the rhythm seems to be acceptable and we can tell more on device evaluation in the future, if he has poor appropriate biventricular pacing we should consider AV tre ablation, there is little downside to that. If we can in the future control his atrial rhythm so that he is in sinus rhythm most of the time the device can be reprogrammed to track that rhythm. If he remains in this rhythm even following AV tre ablation we will not be able to use dual-chamber mode for the same reason as if he has intact AV conduction, so VVIR mode would be preferable in that setting. I think he can go home today, I will arrange a follow-up visit in our office for 1 to 2 weeks to evaluate his rhythm, the pacemaker will keep track of the appropriateness of the current settings. Admission and Anticipated Discharge Date Admission Date: October 22, 2023 Subjective Patient examined and chart reviewed. In brief, he has a long history of systolic dysfunction and paroxysmal atrial fibrillation, in July 2022 his ejection fraction was 25 to 30% and he has had a biventricular ICD in place for 8 years and it has been working appropriately. He has been evaluated while in atrial fibrillation although his symptoms did not correlate very well with that arrhythmia, which had been relatively infrequent historically. I do not believe we have documented an atrial tachycardia in the past. He presented to the emergency room on February 23, 2023 with what appeared to be pneumonia and sepsis, he was admitted and treated. He continued to have difficulty with oxygenation and an echocardiogram done February 25, 2023 shows global hypokinesis with an ejection fraction of 30 to 35% and felt to be similar to prior measurements. I last saw him May 17, 2023 in the office, at that time he was confined to a wheelchair primarily due to having some heel ulcers rather than difficulty with exertion. Based on remote monitoring he has continued to have episodes of atrial arrhythmias including "SVT" as well as atrial fibrillation. At the wound center he was observed to have a rapid heart rate, was therefore sent to the emergency room where he was ventricular pacing at a rapid heart rate for the most part. This appeared to be tracking atrial activity, possibly an atrial tachycardia. Attempts were made to control the arrhythmia using beta-blockade and more recently amiodarone. He remains on an amiodarone drip, he is also on carvedilol 12.5 mg twice a day and he remains on Eliquis. His rhythm has remained at 130 bpm with atrial sensing and ventricular pacing. He does not feel this but it can be detrimental in the long run and medications do not seem to be helping. His activities remain quite limited, he is able to walk with a walker but cannot perform a lot of activities. This does not seem to be due to any cardiovascular limitation however. He is feeling well today, we reprogrammed his device yesterday and he has had no awareness of his arrhythmia either before or after the reprogramming. He has not been very active in the hospital. Physical Exam Physical Exam: Constitutional: Alert, cooperative and in no distress. HEENT: Unremarkable Neck: No jugular venous distention, carotid pulses are normal and equal bilaterally without bruits. Pulmonary: Clear to auscultation bilaterally. Cardiac: Regular rhythm with no murmur, gallop or rub. Abdomen: Soft, nontender with normal bowel sounds. Extremities: No edema. Distal pulses intact. Neurologic: No focal findings. Skin: The device site is well-healed without erythema, swelling or tenderness. No rash, ecchymoses or petechiae. Results & Data Vital Signs (Past 12 Hours) Vital Signs Temp Pulse Pulse Resp BP Pulse Ox O2 Del Method 10/26/23 07:34 36.7 C 78 17 117/75 96 Nasal Cannula 10/26/23 02:28 36.3 C L 81 18 101/66 94 Nasal Cannula 10/25/23 22:39 36.5 C 79 18 102/68 96 Nasal Cannula 10/25/23 21:50 80 O2 Flow Rate 10/26/23 07:34 3 10/26/23 02:28 3 10/25/23 22:39 3 10/25/23 21:50 PG Care Time/CCT Total # of Minutes Spent Total Time Spent with Patient: Total time spent is greater than 50% in coordination of care (as documented) at patient's floor/unit and/or counseling patient: Coding Level of Care Code 69761 SUB INP/OBS CARE 2/35MIN Diagnoses Atrial tachycardia I47.19 Paroxysmal atrial fibrillation I48.0 Presence of biventricular automatic cardioverter/defibrillator (AICD) Z95.810
--- NOTE | 2023-10-26 09:51 | Discharge Summary ---
Date of Service October 26, 2023 Admission HPI Per Admitting Provider 78-year-old male with history of paroxysmal A-fib, severely reduced EF, status post biventricular automatic cardioverter /defibrillator, CAD, on Coumadin, he is on Entresto, Coreg 25 mg twice a day, took 1 dose this morning, who presents ER from wound care clinic. He notes that he was over there and his blood pressure was on the low side and there found him to be in A-fib and consequently sent here with an elevated heart rate. He denies any headache or change in vision. No chest pain or shortness of breath. No nausea vomiting or diarrhea. No dysuria urgency or frequency. No other exacerbating or remitting factors. Patient denies palpitations, EKG done in the ER, heart rate in 120, suspect A- fib. Patient was given IV fluids in the ER, will order IV metoprolol, authorization specialist consulted, patient denies fever or chills, denies pain, had a prior history of PE, but does not feel symptoms are consistent with pulmonary emboli, he is INR is therapeutic Admission Exam Per Admitting Provider Head atraumatic normocephalic Neck supple Chest decreased breath sounds at bases Heart tachycardic, no murmurs gallops or rubs appreciated Abdomen soft, nontender, nondistended, bowel sounds present Extremities has a ulcer on the bottom of right foot, no signs of infection, left leg in a boot Neurologically he is alert awake oriented x 3, no focal deficit Principal Diagnosis Atrial Tachycardia Discharge Exam GENERAL: AAOx3, afebrile, calm, NAD CARDIO: RRR, no r/m/g RESPIRATORY: CTA b/l, normal respiratory effort, no respiratory distress GI: soft, nontender, mildly distended EXTREMITIES: swelling with mild pitting in b/l LE relatively unchanged from yesterday's exam, no calf tenderness Discharge Data Allergies Allergy/AdvReac Type Severity Reaction Status Date / Time bee venom protein (honey bee) Allergy Severe SWELLING, Verified 10/22/23 16:01 SOB Penicillins Allergy Severe SWELLING, Verified 10/22/23 16:01 DIFFICULTY BREATHING lidocaine Allergy Mild RASH Verified 10/22/23 13:01 cefdinir AdvReac Severe Vomiting Verified 10/22/23 13:01 hydrocodone AdvReac Mild nausea Verified 10/22/23 13:01 oxycodone AdvReac Mild nausea-SLOW Verified 10/22/23 13:01 RELEASE IS OK Consultations 10/22/23 16:41 ED Decision to Admit Stat 10/22/23 17:54 Consult Cardiology Routine Ordered Studies 10/23/23 22:24 CT angio chest PE protocol Urgent Hospital Course (1) Atrial fibrillation: (2) Sleep apnea: (3) Pulmonary embolism: (4) Pressure ulcer of right heel, stage 4: Plan Patient is a 78 y/o male with PMHx of pA-fib (on Coumadin), HFrEF, ICD, CAD, ROSE on CPAP who was sent to ED from wound clinic due to hypotension and was found to be tachycardic with HR in 120s. Atrial tachycardia -- Resolved Chronic anticoagulation - HR back to baseline after Dr. Abreu reprogrammed pacemaker - Patient stable and VSS with HR between 70s and 80s - Will stop Warfarin and discharge today with Eliquis 5 mg BID for anticoagulation. Advised patient to f/u with Legal Clerk within 1-2 weeks of discharge from the hospital, as well as PCP f/u. 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 He has an appointment scheduled for Wednesday (10/29/23) Patient to be discharged back home today. Total Time Total Time Spent Total Time Spent (In Minutes): <30 Discharge Plan Discharge Items Patient Disposition: Home - Self-Care Reason For Visit: AFIB Discharge Diagnosis: Atrial Tachycardia Activity: Resume your previous activity Non-emergency contact: Primary Care Provider and Legal Clerk Call non-emergency contact if: your symptoms worsen and your temperature is above 101 Follow-up/Referrals: Nav Abreu MD [Physician] - 11/02/23 10:00 am Tramaine Peterson MD [Primary Care Provider] - 11/04/23 3:40 pm (with Dr. Marshall. ) Diet: Heart Healthy and Low Sodium (2gm) Addtl Attending Provider Instructions: You were admitted to the hospital after being found to have low blood pressure later noted to be related to a fast heart rate. We tried multiple medications to try and get your heart rate back to appropriate range with no success. We spoke with Dr. Abreu to assess your pacemaker, and after reprogramming it we were able to get your heart rate back under control. Since your heart rate is back to normal and you are stable, we will be discharging you today. As discussed, we will be changing your blood thinner from Warfarin to Eliquis. Please do not take Warfarin, and instead you should take Eliquis 5 mg by mouth two times a day for anticoagulation. I have sent a script for this to your pharmacy. A discharge summary will be sent to your primary care physician to ensure continuity of care. Please bring this discharge summary with you to your next office appointment so that your provider can review it at that time. Follow-up appointments: You have a follow up appointment at [facility] with Dr. Marshall on , 11/04/2023 at 3:25 pm. It is important to follow up with them after discharge from the hospital. Make a follow-up appointment with your Legal Clerk within the next 1-2 weeks. It is very important that you follow up with them after discharge form the hospital. Keep all your follow-up appointments as already scheduled. If you cannot make an appointment, notify your provider. Medications: Your medication list has been reviewed and reconciled upon discharge to ensure accuracy and continuity of care. An updated list of all your medications is included with your hospital discharge paperwork. Please review this list closely, and make note of any changes. If you have any issues filling these prescriptions, please call [phone] and ask to leave a message for Dr. Marshall. Take your medications as instructed; do not skip a dose of your medicines. Make sure all of your doctors know every medicine you are taking (including iied-zel-akputjk medicines, vitamins, and supplements). Call your primary care provider before taking any new medicines (including over- the-counter medicines, vitamins, and supplements), because some of these may interact with your current medications, or may make your symptoms worse. Tell your primary care provider if you cannot afford your medications. CONTACT YOUR PRIMARY CARE PROVIDER if you experience any of the following: Worsening of symptoms Fever, chills, or fatigue Difficulty following your treatment plan, or difficulty taking medications CALL 911 OR GO TO THE EMERGENCY DEPARTMENT if you experience any of the following: Sudden, severe abdominal pain or nausea/vomiting Severe chest pain, or chest pain that radiates (moves) to your jaw or arm Sudden, severe shortness of breath or difficulty breathing Thank you for allowing us to participate in your care. Pending Studies at Discharge: No Stand-Alone Forms: My [facility], Smoking Cessation Medications and DC Order Prescriptions: New Eliquis 5 mg tablet 5 mg PO BID Qty: 60 0RF Continued pramipexole [Mirapex ER] 0.375 mg tablet extended release 24 hr 0.375 mg PO QAM Qty: 90 3RF bumetanide 1 mg tablet 1 mg PO QAM Qty: 90 3RF potassium chloride 20 mEq tablet extended release 20 meq PO BID Qty: 200 3RF sacubitril-valsartan 49-51 mg tablet 1 tab PO AMPM cetirizine 10 mg tablet 10 mg PO QDB carvedilol 25 mg tablet 12.5 mg PO AMPM Rx Instructions: must administer with a meal/food bupropion HCl 100 mg tablet 100 mg PO BID Rx Instructions: TAKE THIS MEDICATION EVERY MORNING AND AT NOON albuterol sulfate 90 mcg/actuation HFA aerosol inhaler 2 puffs inhalation Q6H PRN (Reason: Shortness Of Breath Or Wheezing) docusate sodium 100 mg capsule 100 mg PO BID finasteride 5 mg tablet 5 mg PO QAM pantoprazole 40 mg tablet,delayed release (DR/EC) 80 mg PO .@NOON aspirin 81 mg Tablet,Delayed Release (Dr/Ec) 81 mg PO QAM oxycodone 10 mg Tablet 10 mg PO Q12H Patient Comments: takes 6am and 6pm Rx Instructions: take at 6 am & 6 pm sennosides 8.6 mg Tablet 8.6 mg PO TID Rx Instructions: takes in morning ,at noon and bedtime Refresh Lacri-Lube 56.8-42.5 % Ointment 1 applic OPHTHALMIC (EYE) HS Rx Instructions: 1/8th INCH IN EACH EYE metoclopramide HCl 10 mg tablet 5 mg PO Q8H Stiolto Respimat 2.5-2.5 mcg/actuation Mist 2 puff INHALATION QAM nystatin 100,000 unit/gram Powder 1 applic TOPICAL BID epinephrine 0.3 mg/0.3 mL Auto-Injector 0.3 mg IM DIRECTED PRN (Reason: sEVERE ALLERGIC REACTION) rosuvastatin 10 mg tablet 10 mg PO QPM mometasone 50 mcg/actuation Ozone,Non-Aerosol 2 spray INTRANASAL BID Rx Instructions: administer into each nostril lanolin-mineral oil-NaCl-w.pet Lotion 1 ea TOPICAL TID Discontinued warfarin 5 mg tablet 5 mg PO UD Protocol: Dose Management Condition: Wednesday Dose/Route: 5 mg Instruction: 1 x 5 mg tablet Condition: Wednesday Dose/Route: 5 mg Instruction: 1 x 5 mg tablet Condition: Wednesday Dose/Route: 2.5 mg Instruction: 0.5 x 5 mg tablets Condition: Wednesday Dose/Route: 5 mg Instruction: 1 x 5 mg tablet Condition: Dose/Route: 2.5 mg Instruction: 0.5 x 5 mg tablets Condition: Wednesday Dose/Route: 5 mg Instruction: 1 x 5 mg tablet Condition: Wednesday Dose/Route: 5 mg Instruction: 1 x 5 mg tablet Protocol Text: Adjustment Start Date: Wednesday09/27/23 INR Value: 3.2 INR Date: 09/27/23 Rx Instructions: take 5 mg on WED/WED/WED/SAT/SUN ...take 2.5 mg on /THURSDAYS Discharge Orders: Discharge Order (Routine); Ordered 10/26/23 Ordered By: Jessa Marshall Admission Data Admit Date/Time: 10/22/23 19:24 Attending Provider: Dio Palomares Admit Provider: Marylu Teran Primary Care Provider: Tramaine Peterson Other Providers: Marylu Teran; Ruben Choi; Ankur Baker; Eleazar Mcgowan; Royce Negron; Nav Abreu; Demarcus Quintero Jr; Marcelino Barkley; Renetta Dodson; Anel Kemp; Tramaine Polk; Tramaine Kruger; Saúl Marks; Christelle Isabel; David Martinez; Ryann Osullivan; Alonzo Orantes; Mark Chambers; Valdo Neely; Boy Oscar Other Interventions: Discharge Summary Assessment (RN) Last Done: 10/26/23 12:51 Supervising Physician Co-Signing Physician Notes I personally examined the patient and verified all arias points of history and exam, discussed case, and agree with decision making with Dr Marshall Feeling okay. No acute complaints. Cardiology input greatly appreciated (pt seen at same time as dr abreu). Vitals noted, in general he is awake and alert pleasant no distress. Breathing unlabored no accessory muscle use good effort. Skin without rashes pallor or icterus. Neuro without focal deficits. Atrial tachycardia w/ paroxysmal atrial fibrillation - Appreciate cardiology consult, management per cardiology. safe for home, outpt f/u HFrEF - chronic, stable - continue bumetanide, Entresto, carvedilol, ASA. 2gm sodium diet. Discuss re: SGLT-2i, MRA. home today. Otherwise as above. Resident Activity Tracking Resident Involvement: Resident Care Provided Care Provided: Adult Hospital Medicine
--- NOTE | 2023-10-26 13:13 | Billing Data ---
Date of Service October 26, 2023 Coding Level of Care Code 90159 IN/OBS DISCH 30 MIN/LESS
[2023-10-26] MEDS ORDERED: WARFARIN SOD 2.5 MG TAB PO SCH (16:00)
--- NOTE | 2023-10-26 22:45 | Electrocardiogram Report ---
Test Reason : Blood Pressure : / mmHG Vent. Rate : 066 BPM Atrial Rate : 066 BPM P-R Int : 208 ms QRS Dur : 136 ms QT Int : 480 ms P-R-T Axes : 094 129 119 degrees QTc Int : 503 ms Atrial-sensed ventricular-paced rhythm Abnormal ECG When compared with ECG of 24-OCT-2023 10:27, Vent. rate has decreased BY 61 BPM Confirmed by Marcelino Barkley ([id number]) on 10/26/2023 10:44:49 PM Referred By: REFERRED SELF Confirmed By:Marcelino Barkley
--- NOTE | 2023-10-27 23:52 | Electrocardiogram Report ---
Test Reason : Blood Pressure : / mmHG Vent. Rate : 083 BPM Atrial Rate : 115 BPM P-R Int : 000 ms QRS Dur : 142 ms QT Int : 454 ms P-R-T Axes : 000 123 027 degrees QTc Int : 533 ms Ventricular-paced rhythm Abnormal ECG When compared with ECG of 25-OCT-2023 02:54, Vent. rate has increased BY 17 BPM Confirmed by Marcelino Barkley ([id number]) on 10/27/2023 11:52:00 PM Referred By: REFERRED SELF Confirmed By:Marcelino Barkley
== END 2023-10-26 13:36 | disposition home health service (06) | DRG 308 ==
LOC: ED 14:11 → 4W 19:24 → SUATTDRO 19:24 → 4W 20:33

== ENCOUNTER 2024-06-05 16:48 | Inpatient (IN) ==
--- NOTE | 2024-06-05 18:54 | XRay Report ---
INDICATION: Difficulty breathing. TECHNIQUE: Frontal radiograph of the chest. COMPARISON: Radiograph from 04/14/2024. FINDINGS: Elevation of left hemidiaphragm. Cardiomegaly. Subsegmental atelectasis/airspace disease in the lung bases. No pneumothorax or pleural effusion. No acute fracture. Left-sided pacemaker. IMPRESSION: Subsegmental atelectasis/airspace disease in the lung bases. Electronically signed by Gallo Dee 06-05-2024 6:51 PM
[2024-06-05 18:57] LABS: Appearance Urine Clear (Clear); Bacteria Urine Automated 4+ (None Seen); Bilirubin Urine Negative (Negative); Blood Urine Negative (Negative); Cast Urine Automated 0-2 /lpf (0-2); Color Urine Yellow; Epithelial Cell Urine Auto 0-2 /hpf (0-2); Glucose Urine UA Negative (Negative); Ketones Urine Negative (Negative); Leukocyte Esterase Urine 1+ (Negative); Nitrite Urine Negative (Negative); Protein Urine Negative (Negative); Specific Gravity Urine 1.012 (1.000-1.030); Urobilinogen Urine Negative (Negative); WBC Urine Automated 21-50 /hpf (0-5)
--- NOTE | 2024-06-05 19:15 | Emergency Department Note ---
Impression & Plan CHF (congestive heart failure), UTI (urinary tract infection), COVID-19 ED Provider Note NAME: ZIGGY DEUTSCH AGE: 79 SEX: M : 1945 ARRIVES VIA: Walk-In INFORMANT: Patient ED PROVIDER(S): Uday Retana MD CHIEF COMPLAINT: Shortness of breath, edema. Referred. PLAN: Disposition: Admit MEDICAL DECISION MAKING: The patient is a pleasant 79-year-old gentleman with a past medical history of paroxysmal atrial tachycardia, cardiomyopathy, esophagitis, peripheral neuropathy who presents to the emergency department via walk-in, accompanied by his , for worsening shortness of breath and edema where the [place] [facility] [place] where he was seen by his home nurse and had increasing edema despite taking his Lasix and was referred to the emergency department. The patient does self cath regularly but has not necessarily increased his frequency of self-catheterization on increased Lasix. On evaluation the patient is in no acute distress, afebrile with stable vital signs with O2 saturation in the low 90s on room air but with mild dyspnea and increased work of breathing. He appears hypervolemic with diminished breath sounds of bilateral lower lung paul and 1+ bilateral lower extremity pitting edema. EKG is paced without overt acute ischemia. Chest x-ray with bibasilar opacities likely atelectasis per my primary in the interpretation. WBC 15.5 K with neutrophilia but no left shift. H&H similar to prior. Platelets within normal limits. Chemistry without metabolic acidosis. Initial high-sensitivity troponin 54.1, nonspecific. BNP is elevated at 455 consistent with patient's volume overload. UA suspicious for infection with 4+ bacteria and WBCs. Respiratory bio fire was positive for COVID-19. Case was discussed with Dr. Calix, [facility] hospitalist, who will evaluate the patient for admission. Further management including antibiotic for urinary tract infection per admitting team. Triage Nursing notes reviewed and agree them. Prior/external medical records reviewed Vital Signs: reviewed Differential diagnosis: Reactive airway disease, pneumonia, pneumothorax, COPD, CHF, infections, cardiac ischemia, pulmonary embolism, musculoskeletal, gastrointestinal, as well as other pathologies. ER treatment provided: See below. Diagnostics interpreted by me: ECG: AV paced, 81 bpm, no overt acute ischemia. Cardiac Monitoring: An order for continuous cardiac monitoring was placed and demonstrated AV paced, 81 bpm. Laboratory studies: See below Imaging studies: See below Consultation(s): Case was discussed with Dr. Calix, [facility] [place] hospitalist, who will evaluate the patient for admission. HPI: The patient is a pleasant 79-year-old gentleman with a past medical history of paroxysmal atrial tachycardia, cardiomyopathy, esophagitis, peripheral neuropathy who presents to the emergency department via walk-in, accompanied by his , for worsening shortness of breath and edema where the patient [place] [facility] [place] where he was seen by his home nurse and had increasing edema despite taking his Lasix and was referred to the emergency department. The patient does self cath regularly but has not necessarily increased his frequency of self-catheterization on increased Lasix. ROS: See above HPI for pertinent positives & negatives. A total of 10 systems reviewed and were otherwise negative. VITALS:See Below PHYSICAL EXAMINATION: GENERAL: Awake, alert, dyspneic-appearing, in no distress HENT: Normocephalic, atraumatic. Oropharynx unremarkable. EYES: Normal conjunctiva. Sclera non-icteric. NECK: Supple. No nuchal rigidity. FROM. No JVD. RESPIRATORY: Diminished breath sounds bilateral lung paul and otherwise clear to auscultation. CARDIAC: Regular rate, normal rhythm. Extremities warm and well perfused. Pulses equal. ABDOMEN: Soft, non-distended. No tenderness to palpation. No rebound or guarding. No masses. MUSCULOSKELETAL: Chest examination reveals no tenderness. The back is symmetrical on inspection without obvious abnormality. There is no CVA tenderness to palpation. No joint edema. LOWER EXTREMITIES: Calves are equal size bilaterally and non-tender. 1+ bilateral lower extremity pitting edema. No discoloration. NEURO: Normal sensorium. No sensory or motor deficits noted. SKIN: No rash or jaundice noted. Uday Retana MD Past Med/Surg History Problem List (Updated 06/07/24 @ 17:59 by Uday Retana MD) CAD (coronary artery disease) s/p stent 2010 Sleep apnea bipap Presence of combination internal cardiac defibrillator (ICD) and pacemaker first placed 2010 @ [facility] replaced in 2014 & 2021 @ [facility]--biventricular [employer]. reports last check 11/25/22. Paroxysmal atrial fibrillation Abdominal distension Acute on chronic systolic heart failure Catheter-associated urinary tract infection COVID-19 (Acute) UTI (urinary tract infection) (Acute) CHF (congestive heart failure) (Acute) Anticoagulant long-term use PAT (paroxysmal atrial tachycardia) Cardiomyopathy Hypotension (Acute) Atrial fibrillation, controlled Parkinsonism Stage III pressure ulcer of buttock (Acute) Centrilobular emphysema Bilateral foot-drop Esophagitis Dysphagia Acute respiratory failure with hypoxia (Acute) Acute on chronic hypoxic respiratory failure Biliary dyskinesia (Chronic) Multiple kidney stones Idiopathic peripheral neuropathy (Acute) Cervical spondylosis without myelopathy (Acute) Cervical radiculopathy (Acute) Complex renal cyst Ulnar neuropathy of both upper extremities Agent orange exposure Warfarin anticoagulation (Chronic) Balance problem Bursitis of left elbow Elevated PSA 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 Cervicogenic headache Spasticity upper limbs Medical History Paroxysmal atrial fibrillation HFrEF (heart failure with reduced ejection fraction) Atrial tachycardia CHF (congestive heart failure) Tachycardia Pressure ulcer of right heel, stage 4 Benign essential hypertension Ischemic cardiomyopathy Elevated INR Near syncope Tachycardia Leg pain Elevated lactic acid level Elevated INR Cellulitis Unstageable pressure ulcer of right heel Unstageable pressure ulcer of left heel Hypoxia Vomiting Acute kidney injury Elevated troponin Acute kidney failure Acute UTI Pneumonia Sepsis Severe sepsis Encounter for pre-operative examination Intrinsic minus hand POWERS (dyspnea on exertion) Preop testing Episode of confusion Right upper quadrant abdominal pain Hand laceration Dog bite Chest pain Cellulitis of left arm Peripheral arterial disease Hypertension Tremor ICD (implantable cardioverter-defibrillator) in place Neuropathy Complex sleep apnea syndrome NYHA class 4 acute on chronic systolic heart failure History of kidney stones Presence of combination internal cardiac defibrillator (ICD) and pacemaker Emphysema lung Legally blind Chronic back pain History of urinary self-catheterization History of DVT of lower extremity Macular degeneration Hearing deficit Depression Migraine CAD (coronary artery disease) Myocardial Infarction Pulmonary embolism Asthma Sleep apnea Surgical History Presence of biventricular automatic cardioverter/defibrillator (AICD) S/P epidural steroid injection History of foot surgery History of open reduction and internal fixation (ORIF) procedure History of prostate biopsy History of prostate surgery History of cystoscopy History of colonoscopy with polypectomy History of esophagogastroduodenoscopy (EGD) History of right inguinal hernia repair History of Khari fundoplication History of cholecystectomy History of tooth extraction History of eye surgery History of bilateral cataract extraction History of cardiac cath Family History Son Family history of diabetes mellitus Other Family history non-contributory No family history of adverse response to anesthesia Social History Smoking Status: Former smoker Tobacco Type: Cigarettes Second Hand Exposure: Yes (father smoked); Do You Dip or Chew Tobacco: No; Hx Alcohol Use: No Hx Substance Use: No Preferred Language: Tongan Communication Ability: Effective Desulphurizer Operator Required: No Beliefs That Will Affect Care: None marital status: Current Living Situation: Spouse Current Living Situation Comment: with Araceli current occupational status: retired Feels Safe at Home: Yes Safety Concerns: Feels Safe At This Time Assistive Devices: Oxygen - at Night, Scooter/Electric Scooter, Walker and Wheelchair Allergies Allergies Allergy/AdvReac Type Severity Reaction Status Date / Time bee venom protein (honey bee) Allergy Severe SWELLING, Verified 04/14/24 08:21 SOB Penicillins Allergy Severe SWELLING, Verified 04/14/24 08:21 DIFFICULTY BREATHING lidocaine Allergy Mild RASH Verified 04/14/24 08:21 cefdinir AdvReac Severe Vomiting Verified 04/14/24 08:21 hydrocodone AdvReac Mild nausea Verified 04/14/24 08:21 oxycodone AdvReac Mild nausea-SLOW Verified 04/14/24 08:21 RELEASE IS OK Home Meds Home Medications Medication Instructions Recorded Confirmed albuterol sulfate 90 mcg/actuation 2 puffs inhalation Q6H PRN 12/01/18 04/14/24 aerosol inhaler Shortness Of Breath Or Wheezing bupropion HCl 100 mg tablet 100 mg PO BID 12/01/18 04/14/24 docusate sodium 100 mg capsule 100 mg PO BID 12/01/18 04/14/24 finasteride 5 mg tablet 5 mg PO QAM 12/01/18 04/14/24 aspirin 81 mg tablet,delayed 81 mg PO QAM 12/21/18 04/14/24 release oxycodone 10 mg tablet 10 mg PO Q12H 12/21/18 04/14/24 sennosides 8.6 mg tablet 8.6 mg PO TID 12/21/18 04/14/24 white petrolatum-mineral oil 56.8 1 applic ophthalmic (eye) HS 12/21/18 04/14/24 %-42.5 % eye ointment (Refresh Lacri-Lube) metoclopramide HCl 10 mg tablet 5 mg PO Q8H 09/04/19 04/14/24 sacubitril 49 mg-valsartan 51 mg 1 tab PO AMPM 11/25/20 04/14/24 tablet pantoprazole 40 mg tablet,delayed 80 mg PO .@NOON 03/10/21 04/14/24 release tiotropium 2.5 mcg-olodaterol 2.5 2 puff inhalation QAM 12/02/22 04/14/24 mcg/actuation mist for inhalation (Stiolto Respimat) nystatin 100,000 unit/gram topical 1 applic topical BID 02/23/23 04/14/24 powder cetirizine 10 mg tablet 10 mg PO QDB 05/17/23 04/14/24 epinephrine 0.3 mg/0.3 mL 0.3 mg IM DIRECTED PRN sEVERE 07/08/23 04/14/24 injection, auto-injector ALLERGIC REACTION mometasone 50 mcg/actuation nasal 2 spray intranasal BID 10/22/23 04/14/24 spray rosuvastatin 10 mg tablet 10 mg PO QPM 10/22/23 04/14/24 carvedilol 25 mg tablet 25 mg PO BID 03/27/24 04/14/24 vitamins A,C,G-[id number] 4,296 1 cap PO BID 03/27/24 04/14/24 mcg-226 mg-90 mg capsule (PreserVision AREDS) Previous Rx's Medication Instructions Recorded bumetanide 1 mg tablet 1 mg PO QAM #90 tabs 10/10/23 potassium chloride 20 mEq 20 meq PO BID #200 tabs 10/10/23 tablet,extended release apixaban 5 mg tablet (Eliquis) 5 mg PO BID #180 tabs 11/23/23 pramipexole 0.375 mg 0.375 mg PO QAM Parkinsonism #90 12/29/23 tablet,extended release 24 hr tabs Results & Data (ED) Vital Signs Vital Signs - 24 hr 06/05/24 17:10 06/05/24 19:04 06/05/24 19:07 Temperature 36.7 C Temperature Source Temporal Artery Scan Pulse Rate 82 80 Pulse Rate [Left Apical] 82 Respiratory Rate 20 25 H Respiratory Effort / Characteristics Spontaneous Short of Breath Respiratory Depth Normal Respiratory Pattern Regular Blood Pressure 121/77 Blood Pressure [Left Arm] 110/69 Blood Pressure Mean 91 Blood Pressure Mean [Left Arm] 82 Blood Pressure Position Sitting Pulse Oximetry 91 93 Oxygen Delivery Method Room Air Room Air Sepsis Recent Fever Within 48 Hours No Sepsis New/Unexplained Change in Mental Status No Sepsis Action Taken by Nursing No Action Required 06/05/24 19:51 06/05/24 20:00 06/05/24 20:15 Temperature Temperature Source Pulse Rate 82 80 83 Pulse Rate [Left Apical] Respiratory Rate 25 H 27 H Respiratory Effort / Characteristics Respiratory Depth Respiratory Pattern Blood Pressure 111/68 Blood Pressure [Left Arm] Blood Pressure Mean 82 Blood Pressure Mean [Left Arm] Blood Pressure Position Pulse Oximetry 94 91 Oxygen Delivery Method Room Air Room Air Sepsis Recent Fever Within 48 Hours Sepsis New/Unexplained Change in Mental Status Sepsis Action Taken by Nursing 06/05/24 20:30 06/05/24 20:51 06/05/24 21:00 Temperature Temperature Source Pulse Rate 82 80 Pulse Rate [Left Apical] Respiratory Rate 20 Respiratory Effort / Characteristics Respiratory Depth Respiratory Pattern Blood Pressure 130/73 127/79 Blood Pressure [Left Arm] Blood Pressure Mean 92 83 Blood Pressure Mean [Left Arm] Blood Pressure Position Pulse Oximetry 92 95 Oxygen Delivery Method Room Air Room Air Sepsis Recent Fever Within 48 Hours Sepsis New/Unexplained Change in Mental Status Sepsis Action Taken by Nursing 06/05/24 21:15 06/05/24 21:30 Temperature Temperature Source Pulse Rate 81 83 Pulse Rate [Left Apical] Respiratory Rate 21 21 Respiratory Effort / Characteristics Respiratory Depth Respiratory Pattern Blood Pressure 119/85 Blood Pressure [Left Arm] Blood Pressure Mean 96 Blood Pressure Mean [Left Arm] Blood Pressure Position Pulse Oximetry 93 98 Oxygen Delivery Method Room Air Room Air Sepsis Recent Fever Within 48 Hours Sepsis New/Unexplained Change in Mental Status Sepsis Action Taken by Nursing Laboratory Data 06/07/24 09:27 06/07/24 07:56 Lab Results 06/05/24 06/05/24 Range/Units 18:35 19:07 Urine Color Yellow Urine Appearance Clear (Clear) Urine pH 6.0 (4.5-7.5) Ur Specific [place] 1.012 (1.000-1.030) Urine Protein Negative (Negative) Urine Glucose (UA) Negative (Negative) Urine Ketones Negative (Negative) Urine Blood Negative (Negative) Urine Nitrite Negative (Negative) Urine Bilirubin Negative (Negative) Urine Urobilinogen Negative (Negative) Ur Leukocyte Esterase 1+ H (Negative) Urine WBC (Auto) 21-50 H (0-5) /hpf Urine RBC (Auto) 3-5 H (0-2) /hpf U Hyaline Cast (Auto) 0-2 (0-2) /lpf U Epithel Cells (Auto) 0-2 (0-2) /hpf Urine Bacteria (Auto) 4+ H (None Seen) Adenovirus (PCR) Not Detected (NotDetected) B. pertussis DNA (PCR) Not Detected (NotDetected) B.parapertussis DNA PCR Not Detected (NotDetected) C. pneumoniae DNA (PCR) Not Detected (NotDetected) Coronavirus OC43 (PCR) Not Detected (NotDetected) Coronavirus HKU1 (PCR) Not Detected (NotDetected) Coronavirus 229E (PCR) Not Detected (NotDetected) SARS-CoV-2 (PCR) DETECTED A (NotDetected) Coronavirus NL63 (PCR) Not Detected (NotDetected) Human Metapneumovir PCR Not Detected (NotDetected) Influenza Type A (PCR) Not Detected (NotDetected) Influenza Type B (PCR) Not Detected (NotDetected) M. pneumoniae (PCR) Not Detected (NotDetected) Parainfluenza 1 (PCR) Not Detected (NotDetected) Parainfluenza 2 (PCR) Not Detected (NotDetected) Parainfluenza 3 (PCR) Not Detected (NotDetected) Parainfluenza 4 (PCR) Not Detected (NotDetected) RSV (PCR) Not Detected (NotDetected) Entero/Rhino (PCR) Not Detected (NotDetected) Administered Medications Apixaban (Apixaban 5 Mg Tablet) 5 mg PO BID TEDDY Stop: 07/06/24 08:59 Last Admin: 06/07/24 09:24 Dose: 5 mg Documented By: Admin: 06/06/24 21:12 Dose: 5 mg Documented By: Admin: 06/06/24 09:03 Dose: 5 mg Documented By: LOVELY Aspirin (Aspirin 81 Mg Ectab) 81 mg PO QAM TEDDY Stop: 07/06/24 08:59 Last Admin: 06/07/24 09:24 Dose: 81 mg Documented By: Admin: 06/06/24 09:03 Dose: 81 mg Documented By: LOVELY Bupropion HCl (Bupropion Hcl 100 Mg Tablet) 100 mg PO BID@0900,1200 TEDDY Stop: 07/06/24 08:59 Last Admin: 06/07/24 12:08 Dose: 100 mg Documented By: Admin: 06/07/24 09:28 Dose: 100 mg Documented By: Admin: 06/06/24 10:21 Dose: 100 mg Documented By: Admin: 06/06/24 09:04 Dose: 100 mg Documented By: LOVELY Carvedilol (Carvedilol 25 Mg Tab) 25 mg PO BID TEDDY Stop: 07/06/24 08:59 Last Admin: 06/07/24 09:25 Dose: 25 mg Documented By: Admin: 06/06/24 21:04 Dose: Not Given Documented By: Admin: 06/06/24 09:04 Dose: 25 mg Documented By: LOVELY Docusate Sodium (Docusate Sodium 100 Mg Cap) 100 mg PO BID TEDDY Stop: 07/06/24 08:59 Last Admin: 06/07/24 09:23 Dose: 100 mg Documented By: Admin: 06/06/24 21:10 Dose: 100 mg Documented By: Admin: 06/06/24 10:20 Dose: 100 mg Documented By: LOVELY Finasteride (Finasteride 5 Mg Tab) 5 mg PO QAM TEDDY Stop: 07/06/24 08:59 Last Admin: 06/07/24 09:27 Dose: 5 mg Documented By: Admin: 06/06/24 09:04 Dose: 5 mg Documented By: LOVELY Fluticasone Propionate (Fluticasone Propionate Na Spr 16 Gm Btl) 2 sprays NA DAILY TEDDY Stop: 07/06/24 08:59 Last Admin: 06/07/24 09:23 Dose: 2 sprays Documented By: Admin: 06/06/24 09:04 Dose: 2 sprays Documented By: LOVELY Bumetanide 1 mg/ Syringe 4 mls @ 4 mls/min IV BID@0900,1700 [facility] Stop: 07/06/24 08:59 Last Admin: 06/07/24 09:23 Dose: 4 mls/min Documented By: Admin: 06/06/24 18:16 Dose: 4 mls/min Documented By: Admin: 06/06/24 09:03 Dose: 4 mls/min Documented By: LOVELY Remdesivir 100 mg/ Sodium (Chloride) 250 mls @ 250 mls/hr IV Q24H TEDDY Stop: 06/08/24 15:59 Last Infusion: 06/07/24 16:11 Dose: Infused Documented By: Admin: 06/07/24 14:58 Dose: 250 mls/hr Documented By: KYLE Ertapenem (Invanz 1000mg) 1,000 mg in 10 mls @ 2 mls/min IV Q24H [facility] Stop: 06/16/24 14:59 Last Admin: 06/07/24 14:58 Dose: 2 mls/min Documented By: Admin: 06/06/24 15:54 Dose: 2 mls/min Documented By: LOVELY Multi-Ingredient Cream (Artificial Tears Op Oint 3.5 Gm Tube) 1 appln OP HS [facility] Stop: 07/06/24 20:59 Last Admin: 06/06/24 21:12 Dose: 1 appln Documented By: PATRICIA Multivitamins/Minerals (Cerovite Adv Formula Tab) 1 tab PO BID [facility] Stop: 07/06/24 08:59 Last Admin: 06/07/24 09:24 Dose: 1 tab Documented By: Admin: 06/06/24 21:11 Dose: 1 tab Documented By: Admin: 06/06/24 09:04 Dose: 1 tab Documented By: LOVELY Nystatin (Nystatin Powder 15gm Btl) 1 appln EXT BID [facility] Stop: 07/06/24 08:59 Last Admin: 06/07/24 09:24 Dose: 1 appln Documented By: ElmerO Admin: 06/06/24 21:11 Dose: 1 appln Documented By: Admin: 06/06/24 09:05 Dose: 1 appln Documented By: LOVELY Oxycodone HCl (Oxycodone Hcl Ir 5 Mg Tab (Immediate Release)) 5 mg PO Q12H TEDDY Stop: 06/20/24 05:59 Last Admin: 06/07/24 17:27 Dose: 5 mg Documented By: Admin: 06/07/24 06:19 Dose: 5 mg Documented By: Admin: 06/06/24 18:16 Dose: 5 mg Documented By: Admin: 06/06/24 06:08 Dose: 5 mg Documented By: DENIS Pantoprazole Sodium (Pantoprazole 40 Mg Tab) 80 mg PO DAILY@1200 TEDDY Stop: 07/06/24 11:59 Last Admin: 06/07/24 12:08 Dose: 80 mg Documented By: ElmerO Admin: 06/06/24 10:20 Dose: 80 mg Documented By: LOVELY Potassium Chloride (Potassium Chloride Crtab 20 Meq Tabcr) 20 meq PO BID TEDDY Stop: 07/06/24 08:59 Last Admin: 06/07/24 09:23 Dose: 20 meq Documented By: Admin: 06/06/24 21:10 Dose: 20 meq Documented By: Admin: 06/06/24 10:20 Dose: 20 meq Documented By: LOVELY Pramipexole Dihydrochloride (Pramipexole Dihydrochlo 0.25 Mg Tab) 0.375 mg PO QAM TEDDY Stop: 07/06/24 08:59 Last Admin: 06/07/24 09:25 Dose: 0.375 mg Documented By: Admin: 06/06/24 09:04 Dose: 0.375 mg Documented By: LOVELY Rosuvastatin Calcium (Rosuvastatin Calcium 10 Mg Tab) 10 mg PO QPM TEDDY Stop: 07/06/24 20:59 Last Admin: 06/06/24 21:12 Dose: 10 mg Documented By: PATRICIA Sacubitril/Valsartan (Valsartan/Sacubitril 51/49 Mg Tab) 1 tab PO BID TEDDY Stop: 07/05/24 23:40 Last Admin: 06/06/24 09:04 Dose: 1 tab Documented By: Admin: 06/06/24 01:06 Dose: 1 tab Documented By: DENIS Sennosides (Senna 8.6 Mg Tab) 8.6 mg PO TID@0900,1200,2100 TEDDY Stop: 07/06/24 08:59 Last Admin: 06/07/24 12:08 Dose: 8.6 mg Documented By: Admin: 06/07/24 09:23 Dose: 8.6 mg Documented By: Admin: 06/06/24 21:10 Dose: 8.6 mg Documented By: KDHannah Admin: 06/06/24 11:42 Dose: 8.6 mg Documented By: Admin: 06/06/24 10:20 Dose: 8.6 mg Documented By: LOVELY Umeclidinium/Vilanterol (Umeclidinium/Vilanterol 62.5/25mcg 7 Puffs/Inhaler) 1 puffs INH QAM TEDDY Stop: 07/06/24 08:59 Last Admin: 06/07/24 09:28 Dose: 1 puffs Documented By: Admin: 06/06/24 09:05 Dose: 1 puffs Documented By: LOVELY Discontinued Medications Bumetanide 1 mg/ Syringe 4 mls @ 4 mls/min IV ONE ONE Stop: 06/05/24 20:33 Last Admin: 06/05/24 21:08 Dose: 4 mls/min Documented By: WM Ciprofloxacin (Cipro / D5w) 400 mg in 200 mls @ 200 mls/hr IV Q12H [facility]; Protocol Stop: 06/15/24 21:59 Last Infusion: 06/06/24 11:24 Dose: Infused Documented By: Admin: 06/06/24 10:20 Dose: 200 mls/hr Documented By: Infusion: 06/05/24 23:20 Dose: Infused Documented By: Admin: 06/05/24 22:20 Dose: 200 mls/hr Documented By: WM Remdesivir 200 mg/ Sodium (Chloride) 250 mls @ 125 mls/hr IV ONE ONE Stop: 06/06/24 17:14 Last Infusion: 06/06/24 18:16 Dose: Infused Documented By: Admin: 06/06/24 15:54 Dose: 125 mls/hr Documented By: LOVELY Ioversol (Optiray 320 100ml) 92 ml IV ONCE ONE Stop: 06/06/24 22:30 Last Admin: 06/06/24 22:29 Dose: 92 ml Documented By: GES Imaging Data Radiologist's Impression: Chest X-Ray 06/05/24 17:18 INDICATION: Difficulty breathing. TECHNIQUE: Frontal radiograph of the chest. COMPARISON: Radiograph from 04/14/2024. FINDINGS: Elevation of left hemidiaphragm. Cardiomegaly. Subsegmental atelectasis/airspace disease in the lung bases. No pneumothorax or pleural effusion. No acute fracture. Left-sided pacemaker. IMPRESSION: Subsegmental atelectasis/airspace disease in the lung bases. Electronically signed by Gallo Dee 06-05-2024 6:51 PM Discharge Plan Visit Data Chief Complaint: Shortness of Breath/Dyspnea Stated Complaint: SOB, FLUID BUILD UP ED Provider: Uday Retana Discharge Problem: CHF (congestive heart failure), UTI (urinary tract infection), COVID-19 Patient Disposition: Admitted As Inpatient Discharge Instructions Interventions: ED Discharge Assessment Last Done: 06/05/24 23:02 Discharge Problem: CHF (congestive heart failure) Qualifiers: Heart failure type: unspecified Heart failure chronicity: acute on chronic Q ualified Code(s): I50.9 - Heart failure, unspecified UTI (urinary tract infection) Qualifiers: Urinary tract infection type: acute cystitis Hematuria presence: with hematuria Qualified Code(s): N30.01 - Acute cystitis with hematuria
[2024-06-05 20:12] LABS: Adenovirus PCR Not Detected (NotDetected); Bordetella parapertussis PCR Not Detected (NotDetected); Bordetella pertussis PCR Not Detected (NotDetected); Chlamydia pneumoniae PCR Not Detected (NotDetected); Coronavirus 229E PCR Not Detected (NotDetected); Coronavirus CoV-2 (COVID19)PCR DETECTED (NotDetected); Coronavirus HKU1 PCR Not Detected (NotDetected); Coronavirus NL63 PCR Not Detected (NotDetected); Coronavirus OC43PCR Not Detected (NotDetected); Human Metapneumovirus PCR Not Detected (NotDetected); Influenza A PCR Not Detected (NotDetected); Influenza B PCR Not Detected (NotDetected); Mycoplasma pneumoniae PCR Not Detected (NotDetected); Parainfluenza Virus 1 PCR Not Detected (NotDetected); Parainfluenza Virus 2 PCR Not Detected (NotDetected); Parainfluenza Virus 3 PCR Not Detected (NotDetected); Parainfluenza Virus 4 PCR Not Detected (NotDetected); Respiratory Syncytial VirusPCR Not Detected (NotDetected); Rhinovirus/Enterovirus PCR Not Detected (NotDetected)
[2024-06-05 20:20] LABS: Albumin Globulin Ratio 1.1 (0.9-2); BUN Creatinine Ratio 23.3 (10-20); Bilirubin,Total 0.7 mg/dl (0.2-1.0); Creatinine Clr Calc Pharmacy 65.1 ml/min; Globulin 3.5 gm/dl (2.5-4.0); Potassium 4.6 mmol/L (3.5-5.1); Total Protein 7.5 gm/dl (6.0-8.3)
[2024-06-05 20:25] LABS: Basophils # (auto) 0.05 K/uL (0.00-0.20); Basophils % (auto) 0.3 %; Eosinophils # (auto) 0.38 K/uL (0.00-0.50); Eosinophils % (auto) 2.5 %; Hematocrit (blood only) 41.2 % (42.0-52.0); Hemoglobin 13.9 g/dl (14.0-18.0); Immature Granulocytes # (auto) 0.08 K/uL (0.01-0.20); Immature Granulocytes % (auto) 0.5 %; Lymphocytes # (auto) 2.25 K/uL (1.20-3.40); Lymphocytes % (auto) 14.5 %; Mean Corpuscular Hemoglobin 29.7 pg (25.0-34.0); Mean Corpuscular Hgb Conc 33.7 g/dL (32.0-36.0); Mean Platelet Volume 11.1 fL (9.4-12.4); Monocytes # (auto) 0.99 K/uL (0.11-0.59); Monocytes % (auto) 6.4 %; Neutrophils # (auto) 11.76 K/uL (1.40-6.50); Neutrophils % (auto) 75.8 %; Platelet Count 278 K/uL (130-400); RDW Standard Deviation 44.9 fL (36.4-46.3); Red Blood Count 4.68 M/uL (4.70-6.10); White Blood Count 15.51 K/ul (4.8-10.8)
[2024-06-05 20:29] LABS: Troponin I High Sensitivity 54.1 pg/ml (0-20)
[2024-06-05] MEDS: BUMETANIDE 1 MG in SYRINGE 0 ML IV ONE (21:08)
--- NOTE | 2024-06-05 22:06 | History & Physical Report ---
Date of Service June 05, 2024 Assessment & Plan (1) CHF (congestive heart failure): (2) Anticoagulant long-term use: (3) PAT (paroxysmal atrial tachycardia): (4) UTI (urinary tract infection): (5) COVID-19: Plan The patient is a 79-year-old male with past medical history including history of left heel pressure ulcer, paroxysmal atrial tachycardia status post recent ablation, cardiomyopathy, atrial fibrillation, parkinsonism, emphysema, idiopathic peripheral neuropathy, dyslipidemia, BPH with LUTS, long-term anticoagulation with apixaban, and esophagitis.The patient presents to the emergency department with complaint of worsening shortness of breath, lower extremity edema that was noted by visiting nurse, who has been seeing him after having had ablation at [facility] [place] [facility] for paroxysmal atrial tachycardia. He reports taking Lasix as directed, does self-catheterization regularly, has not noticed an increasing frequency of need for urination in spite of increase Lasix. He denies any change in diet, in particular he continues to watch sodium regularly. In the emergency department, he was given bumetanide 1 mg IV, and was referred for evaluation for admission. Troponin was noted to be elevated 54.1, and urinalysis was suggestive of urinary tract infection. #CHF/status post recent ablation for paroxysmal atrial tachycardia- The patient will be admitted to telemetry for serial cardiac enzymes, serial EKG's, cardiac rhythm monitoring Given bumetanide 1 mg IV in ED, and will continue bumetanide 1 mg IV twice daily Continue apixaban, aspirin, carvedilol, potassium chloride and Entresto Initial troponin 54.1, with follow-up pending Follow serial CBC with differential, chemistry profile and magnesium level #Urinary tract infection- Follow urine culture and sensitivity Placed on Cipro 40 mg IV every 12 hours, history of allergy to cephalosporins and penicillins #COVID 19 infection- Placed on COVID precautions Patient asymptomatic, and required no treatment #BPH with LUTS-continue finasteride, Hyperlipidemia-Continue rosuvastatin Parkinsonism-continue pramipexole GERD-continue pantoprazole History of Present Illness Chief Complaint: The patient presents to the emergency department with complaint of worsening shortness of breath, lower extremity edema that was noted by visiting nurse, who has been seeing him after having had ablation at [facility] [place] for paroxysmal atrial tachycardia. He reports taking Lasix as directed, does self-catheterization regularly, has not noticed an increasing frequency of need for urination in spite of increase Lasix. He denies any change in diet, in particular he continues to watch sodium regularly. Primary Care Provider: Tramaine Peterson MD The patient is a 79-year-old male with past medical history including history of left heel pressure ulcer, paroxysmal atrial tachycardia status post recent ablation, cardiomyopathy, atrial fibrillation, parkinsonism, emphysema, idiopathic peripheral neuropathy, dyslipidemia, BPH with LUTS, long-term anticoagulation with apixaban, and esophagitis.The patient presents to the emergency department with complaint of worsening shortness of breath, lower extremity edema that was noted by visiting nurse, who has been seeing him after having had ablation at [facility] [place] for paroxysmal atrial tachycardia. He reports taking Lasix as directed, does self-catheterization regularly, has not noticed an increasing frequency of need for urination in spite of increase Lasix. He denies any change in diet, in particular he continues to watch sodium regularly. In the emergency department, he was given bumetanide 1 mg IV, and was referred for evaluation for admission. Troponin was noted to be elevated 54.1, and urinalysis was suggestive of urinary tract infection. Allergies Allergy/AdvReac Type Severity Reaction Status Date / Time bee venom protein (honey bee) Allergy Severe SWELLING, Verified 04/14/24 08:21 SOB Penicillins Allergy Severe SWELLING, Verified 04/14/24 08:21 DIFFICULTY BREATHING lidocaine Allergy Mild RASH Verified 04/14/24 08:21 cefdinir AdvReac Severe Vomiting Verified 04/14/24 08:21 hydrocodone AdvReac Mild nausea Verified 04/14/24 08:21 oxycodone AdvReac Mild nausea-SLOW Verified 04/14/24 08:21 RELEASE IS OK Home Medications Medication Instructions Recorded Confirmed Type albuterol sulfate 90 mcg/actuation 2 puffs inhalation Q6H PRN 12/01/18 04/14/24 History aerosol inhaler Shortness Of Breath Or Wheezing bupropion HCl 100 mg tablet 100 mg PO BID 12/01/18 04/14/24 History docusate sodium 100 mg capsule 100 mg PO BID 12/01/18 04/14/24 History finasteride 5 mg tablet 5 mg PO QAM 12/01/18 04/14/24 History aspirin 81 mg tablet,delayed 81 mg PO QAM 12/21/18 04/14/24 History release oxycodone 10 mg tablet 10 mg PO Q12H 12/21/18 04/14/24 History sennosides 8.6 mg tablet 8.6 mg PO TID 12/21/18 04/14/24 History white petrolatum-mineral oil 56.8 1 applic ophthalmic (eye) HS 12/21/18 04/14/24 History %-42.5 % eye ointment (Refresh Lacri-Lube) metoclopramide HCl 10 mg tablet 5 mg PO Q8H 09/04/19 04/14/24 History sacubitril 49 mg-valsartan 51 mg 1 tab PO AMPM 11/25/20 04/14/24 History tablet pantoprazole 40 mg tablet,delayed 80 mg PO .@NOON 03/10/21 04/14/24 History release tiotropium 2.5 mcg-olodaterol 2.5 2 puff inhalation QAM 12/02/22 04/14/24 History mcg/actuation mist for inhalation (Stiolto Respimat) nystatin 100,000 unit/gram topical 1 applic topical BID 02/23/23 04/14/24 History powder cetirizine 10 mg tablet 10 mg PO QDB 05/17/23 04/14/24 History epinephrine 0.3 mg/0.3 mL 0.3 mg IM DIRECTED PRN sEVERE 07/08/23 04/14/24 History injection, auto-injector ALLERGIC REACTION bumetanide 1 mg tablet 1 mg PO QAM #90 tabs 10/10/23 04/14/24 Rx potassium chloride 20 mEq 20 meq PO BID #200 tabs 10/10/23 04/14/24 Rx tablet,extended release mometasone 50 mcg/actuation nasal 2 spray intranasal BID 10/22/23 04/14/24 History spray rosuvastatin 10 mg tablet 10 mg PO QPM 10/22/23 04/14/24 History apixaban 5 mg tablet (Eliquis) 5 mg PO BID #180 tabs 11/23/23 04/14/24 Rx pramipexole 0.375 mg 0.375 mg PO QAM Parkinsonism #90 12/29/23 04/14/24 Rx tablet,extended release 24 hr tabs carvedilol 25 mg tablet 25 mg PO BID 03/27/24 04/14/24 History vitamins A,C,Q-zqdx-tvkgow 4,296 1 cap PO BID 03/27/24 04/14/24 History mcg-226 mg-90 mg capsule (PreserVision AREDS) Past Med/Surg History Problem List (Updated 06/06/24 @ 03:01 by Uday Retana MD) COVID-19 (Acute) UTI (urinary tract infection) (Acute) CHF (congestive heart failure) (Acute) Anticoagulant long-term use PAT (paroxysmal atrial tachycardia) Cardiomyopathy Hypotension (Acute) Atrial fibrillation, controlled Parkinsonism Stage III pressure ulcer of buttock (Acute) Centrilobular emphysema Bilateral foot-drop Esophagitis Dysphagia Acute respiratory failure with hypoxia (Acute) Acute on chronic hypoxic respiratory failure Biliary dyskinesia (Chronic) Multiple kidney stones Idiopathic peripheral neuropathy (Acute) Cervical spondylosis without myelopathy (Acute) Cervical radiculopathy (Acute) Complex renal cyst Ulnar neuropathy of both upper extremities Agent orange exposure Warfarin anticoagulation (Chronic) Balance problem Bursitis of left elbow Elevated PSA 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 Cervicogenic headache Spasticity upper limbs Medical History Paroxysmal atrial fibrillation HFrEF (heart failure with reduced ejection fraction) Atrial tachycardia CHF (congestive heart failure) Tachycardia Pressure ulcer of right heel, stage 4 Benign essential hypertension Ischemic cardiomyopathy Elevated INR Near syncope Tachycardia Leg pain Elevated lactic acid level Elevated INR Cellulitis Unstageable pressure ulcer of right heel Unstageable pressure ulcer of left heel Hypoxia Vomiting Acute kidney injury Elevated troponin Acute kidney failure Acute UTI Pneumonia Sepsis Severe sepsis Encounter for pre-operative examination Intrinsic minus hand POWERS (dyspnea on exertion) Preop testing Episode of confusion Right upper quadrant abdominal pain Hand laceration Dog bite Chest pain Cellulitis of left arm Peripheral arterial disease Hypertension Tremor ICD (implantable cardioverter-defibrillator) in place Neuropathy Complex sleep apnea syndrome NYHA class 4 acute on chronic systolic heart failure History of kidney stones Presence of combination internal cardiac defibrillator (ICD) and pacemaker Emphysema lung Legally blind Chronic back pain History of urinary self-catheterization History of DVT of lower extremity Macular degeneration Hearing deficit Depression Migraine CAD (coronary artery disease) Myocardial Infarction Pulmonary embolism Asthma Sleep apnea Surgical History Presence of biventricular automatic cardioverter/defibrillator (AICD) S/P epidural steroid injection History of foot surgery History of open reduction and internal fixation (ORIF) procedure History of prostate biopsy History of prostate surgery History of cystoscopy History of colonoscopy with polypectomy History of esophagogastroduodenoscopy (EGD) History of right inguinal hernia repair History of Khari fundoplication History of cholecystectomy History of tooth extraction History of eye surgery History of bilateral cataract extraction History of cardiac cath Family History Son Family history of diabetes mellitus Other Family history non-contributory No family history of adverse response to anesthesia Social History Smoking Status: Former smoker Tobacco Type: Cigarettes Second Hand Exposure: Yes (father smoked); Do You Dip or Chew Tobacco: No; Hx Alcohol Use: No Hx Substance Use: No Preferred Language: Italian Communication Ability: Effective Leaf Tier Required: No Beliefs That Will Affect Care: None marital status: Current Living Situation: Spouse Current Living Situation Comment: with [employer] current occupational status: retired Feels Safe at Home: Yes Safety Concerns: Feels Safe At This Time Assistive Devices: Walker and Wheelchair Review of Systems Review of Systems: The patient denies chest pain, palpitations, sore throat, fevers, chills, sweats, fatigue, nausea, vomiting, diarrhea , constipation, abdominal pain, pelvic pain, blood in urine or stool, dysuria, urinary frequency or urgency, lightheadedness, dizziness, headache, memory loss, loss of consciousness, rash, abnormal bruising or bleeding, imbalance, focal or generalized weakness, numbness or tingling in arms, generalized arthralgias or myalgias, back or neck pain, or night sweats. The review of systems is otherwise negative other than for that already noted above, and at least 10 systems have been reviewed. Physical Exam Physical Exam: The patient is awake, alert and oriented 3, well developed and well nourished, normocephalic and atraumatic, lying in bed and in no acute distress. HEENT--PERRL, EOMI, mucous membranes and oropharynx dry. Neck--supple. No JVD. No bruits. Thyroid normal, trachea midline, no adenopathy. Heart--normal S1 and S2. No murmurs, rubs or gallops. Lungs--crackles at the bases bilaterally bilaterally, no respiratory distress, no accessory muscle use. Abdomen--normal bowel sounds and soft. Nontender. Nondistended, no hernias or masses, no organomegaly. Extremities--no cyanosis or clubbing. 1+ bilateral pretibial pitting edema. Dermatologic--normal skin turgor, normal color, no abnormal lymph nodes, no rash. Neurologic--cranial nerves II through XII grossly intact. Rheumatologic--normal range of motion. Psychiatric--normal affect. Results & Data Results & Data Vital Signs (Past 12 Hours) Vital Signs Temp Pulse Pulse Resp BP BP Pulse Ox 06/05/24 21:00 127/79 06/05/24 20:51 80 20 95 06/05/24 20:30 82 130/73 92 06/05/24 20:15 83 27 H 91 06/05/24 20:00 80 111/68 94 06/05/24 19:51 82 25 H 06/05/24 19:07 82 25 H 110/69 93 06/05/24 19:04 80 06/05/24 17:10 36.7 C 82 20 121/77 91 O2 Del Method 06/05/24 21:00 06/05/24 20:51 Room Air 06/05/24 20:30 Room Air 06/05/24 20:15 Room Air 06/05/24 20:00 Room Air 06/05/24 19:51 06/05/24 19:07 Room Air 06/05/24 19:04 06/05/24 17:10 Room Air Laboratory Results Laboratory Results WBC 15.51 K/ul (4.8-10.8) H 06/05/24 Unknown RBC 4.68 M/uL (4.70-6.10) L 06/05/24 Unknown Hgb 13.9 g/dl (14.0-18.0) L 06/05/24 Unknown Hct 41.2 % (42.0-52.0) L 06/05/24 Unknown MCV 88.0 fL (80.0-100.0) 06/05/24 Unknown MCH 29.7 pg (25.0-34.0) 06/05/24 Unknown MCHC 33.7 g/dL (32.0-36.0) 06/05/24 Unknown RDW Std Deviation 44.9 fL (36.4-46.3) 06/05/24 Unknown RDW Coeff of Jerry 14.0 % (11.5-14.5) 06/05/24 Unknown Plt Count 278 K/uL (130-400) 06/05/24 Unknown MPV 11.1 fL (9.4-12.4) 06/05/24 Unknown Immature Gran % (Auto) 0.5 % 06/05/24 Unknown Neut % (Auto) 75.8 % 06/05/24 Unknown Lymph % (Auto) 14.5 % 06/05/24 Unknown Cotton % (Auto) 6.4 % 06/05/24 Unknown Eos % (Auto) 2.5 % 06/05/24 Unknown Baso % (Auto) 0.3 % 06/05/24 Unknown Neut # (Auto) 11.76 K/uL (1.40-6.50) H 06/05/24 Unknown Lymph # (Auto) 2.25 K/uL (1.20-3.40) 06/05/24 Unknown Cotton # (Auto) 0.99 K/uL (0.11-0.59) H 06/05/24 Unknown Eos # (Auto) 0.38 K/uL (0.00-0.50) 06/05/24 Unknown Baso # (Auto) 0.05 K/uL (0.00-0.20) 06/05/24 Unknown Immature Gran # (Auto) 0.08 K/uL (0.01-0.20) 06/05/24 Unknown Sodium 136 mmol/L (136-145) 06/05/24 Unknown Potassium 4.6 mmol/L (3.5-5.1) 06/05/24 Unknown Chloride 103 mmol/L (98-107) 06/05/24 Unknown Carbon Dioxide 22 mmol/L (21-32) 06/05/24 Unknown Anion Gap 11 (3-11) 06/05/24 Unknown BUN 27 mg/dl (6-23) H 06/05/24 Unknown Creatinine 1.16 mg/dl (0.6-1.4) 06/05/24 Unknown Est Cr Clr Drug Dosing 65.1 ml/min 06/05/24 Unknown eGFR 64.07 06/05/24 Unknown BUN/Creatinine Ratio 23.3 (10-20) H 06/05/24 Unknown Glucose 108 mg/dl (70-99(Fasting)) H 06/05/24 Unknown Calcium 9.0 mg/dl (8.6-10.3) 06/05/24 Unknown Total Bilirubin 0.7 mg/dl (0.2-1.0) 06/05/24 Unknown AST 21 U/L (13-39) 06/05/24 Unknown ALT 24 U/L (7-52) 06/05/24 Unknown Alkaline Phosphatase 50 U/L (34-104) 06/05/24 Unknown Troponin I High Sens 54.1 pg/ml (0-20) H* 06/05/24 Unknown B-Natriuretic Peptide 455 pg/ml (0-100) H 06/05/24 Unknown Total Protein 7.5 gm/dl (6.0-8.3) 06/05/24 Unknown Albumin 4.0 gm/dl (3.4-5.0) 06/05/24 Unknown Globulin 3.5 gm/dl (2.5-4.0) 06/05/24 Unknown Albumin/Globulin Ratio 1.1 (0.9-2) 06/05/24 Unknown Urine Color Yellow 06/05/24 18:35 Urine Appearance Clear (Clear) 06/05/24 18:35 Urine pH 6.0 (4.5-7.5) 06/05/24 18:35 Ur Specific [place] 1.012 (1.000-1.030) 06/05/24 18:35 Urine Protein Negative (Negative) 06/05/24 18:35 Urine Glucose (UA) Negative (Negative) 06/05/24 18:35 Urine Ketones Negative (Negative) 06/05/24 18:35 Urine Blood Negative (Negative) 06/05/24 18:35 Urine Nitrite Negative (Negative) 06/05/24 18:35 Urine Bilirubin Negative (Negative) 06/05/24 18:35 Urine Urobilinogen Negative (Negative) 06/05/24 18:35 Ur Leukocyte Esterase 1+ (Negative) H 06/05/24 18:35 Urine WBC (Auto) 21-50 /hpf (0-5) H 06/05/24 18:35 Urine RBC (Auto) 3-5 /hpf (0-2) H 06/05/24 18:35 U Hyaline Cast (Auto) 0-2 /lpf (0-2) 06/05/24 18:35 U Epithel Cells (Auto) 0-2 /hpf (0-2) 06/05/24 18:35 Urine Bacteria (Auto) 4+ (None Seen) H 06/05/24 18:35 Adenovirus (PCR) Not Detected (NotDetected) 06/05/24 19:07 B. pertussis DNA (PCR) Not Detected (NotDetected) 06/05/24 19:07 B.parapertussis DNA PCR Not Detected (NotDetected) 06/05/24 19:07 C. pneumoniae DNA (PCR) Not Detected (NotDetected) 06/05/24 19:07 Coronavirus OC43 (PCR) Not Detected (NotDetected) 06/05/24 19:07 Coronavirus HKU1 (PCR) Not Detected (NotDetected) 06/05/24 19:07 Coronavirus 229E (PCR) Not Detected (NotDetected) 06/05/24 19:07 SARS-CoV-2 (PCR) DETECTED (NotDetected) A 06/05/24 19:07 Coronavirus NL63 (PCR) Not Detected (NotDetected) 06/05/24 19:07 Human Metapneumovir PCR Not Detected (NotDetected) 06/05/24 19:07 Influenza Type A (PCR) Not Detected (NotDetected) 06/05/24 19:07 Influenza Type B (PCR) Not Detected (NotDetected) 06/05/24 19:07 M. pneumoniae (PCR) Not Detected (NotDetected) 06/05/24 19:07 Parainfluenza 1 (PCR) Not Detected (NotDetected) 06/05/24 19:07 Parainfluenza 2 (PCR) Not Detected (NotDetected) 06/05/24 19:07 Parainfluenza 3 (PCR) Not Detected (NotDetected) 06/05/24 19:07 Parainfluenza 4 (PCR) Not Detected (NotDetected) 06/05/24 19:07 RSV (PCR) Not Detected (NotDetected) 06/05/24 19:07 Entero/Rhino (PCR) Not Detected (NotDetected) 06/05/24 19:07 Impressions Chest X-Ray 06/05/24 17:18 INDICATION: Difficulty breathing. TECHNIQUE: Frontal radiograph of the chest. COMPARISON: Radiograph from 04/14/2024. FINDINGS: Elevation of left hemidiaphragm. Cardiomegaly. Subsegmental atelectasis/airspace disease in the lung bases. No pneumothorax or pleural effusion. No acute fracture. Left-sided pacemaker. IMPRESSION: Subsegmental atelectasis/airspace disease in the lung bases. Electronically signed by Gallo Dee 06-05-2024 6:51 PM Code Status & VTE Plan Code Status Full code VTE Prophylaxis Plan VTE Prophylaxis will be ordered: Yes PG Care Time/CCT Total # of Minutes Spent Total Time Spent with Patient: Total time spent is greater than 50% in coordination of care (as documented) at patient's floor/unit and/or counseling patient: Coding Level of Care Code 59586 INT INP/OBS CARE 3/75MIN Diagnoses CHF (congestive heart failure) I50.9 Anticoagulant long-term use Z79.01 PAT (paroxysmal atrial tachycardia) I47.19 UTI (urinary tract infection) N39.0 COVID-19 U07.1
[2024-06-05] MEDS: CIPROFLOXACIN / D5W 400 MG/200 ML BAG IV SCH (22:20)
[2024-06-05] MEDS ORDERED: ACETAMINOPHEN 325 MG TAB PO PRN (23:41)
[2024-06-05] MEDS ORDERED: ALBUTEROL HFA 8 GM INHALER INH PRN (23:41)
[2024-06-06] MEDS: VALSARTAN/SACUBITRIL 51/49 MG TAB PO SCH (01:06)
[2024-06-06 06:03] LABS: Basophils # (auto) 0.02 K/uL (0.00-0.20); Basophils % (auto) 0.1 %; Eosinophils # (auto) 0.18 K/uL (0.00-0.50); Eosinophils % (auto) 1.1 %; Hematocrit (blood only) 38.5 % (42.0-52.0); Hemoglobin 13.2 g/dl (14.0-18.0); Immature Granulocytes # (auto) 0.11 K/uL (0.01-0.20); Immature Granulocytes % (auto) 0.7 %; Lymphocytes # (auto) 1.78 K/uL (1.20-3.40); Mean Corpuscular Hemoglobin 29.6 pg (25.0-34.0); Mean Corpuscular Hgb Conc 34.3 g/dL (32.0-36.0); Mean Corpuscular Volume 86.3 fL (80.0-100.0); Mean Platelet Volume 10.5 fL (9.4-12.4); Monocytes # (auto) 0.94 K/uL (0.11-0.59); Monocytes % (auto) 5.8 %; Neutrophils # (auto) 13.12 K/uL (1.40-6.50); Neutrophils % (auto) 81.3 %; Platelet Count 270 K/uL (130-400); RDW Standard Deviation 44.4 fL (36.4-46.3); Red Blood Count 4.46 M/uL (4.70-6.10); White Blood Count 16.15 K/ul (4.8-10.8)
[2024-06-06] MEDS: oxyCODONE HCL IR 5 MG TAB (IMMEDIATE RELEASE) PO SCH (06:08)
[2024-06-06 06:41] LABS: Albumin Globulin Ratio 1.1 (0.9-2); Albumin Level 3.5 gm/dl (3.4-5.0); BUN Creatinine Ratio 20.7 (10-20); Bilirubin,Total 1.1 mg/dl (0.2-1.0); Calcium 8.7 mg/dl (8.6-10.3); Globulin 3.3 gm/dl (2.5-4.0); Magnesium 1.8 mg/dl (1.7-2.4); Potassium 3.7 mmol/L (3.5-5.1); Total Protein 6.8 gm/dl (6.0-8.3); Troponin I High Sensitivity 44.2 pg/ml (0-20)
--- OUTSIDE RECORDS SUMMARY | 2024-06-06 08:27 | External Medical Summary | Continuity of Care Document ---
Author Name Unknown Organization [address] [id number] Care Team Providers Care Fountain Vending Mechanic Name Role Phone Tramaine Peterson Primary Care Physician [phone] [id number] Date[facility]s): 04/25/[facility] - [facility]/25/[facility] [address] [place] [phone] Discharge Disposition: Home or Self Care Attending Physician: MD Mariann, Carson Suarez Allergies, Adverse Reactions, Alerts Substance Criticality Severity Reaction Reaction Severity Status lidocaine rash Active oxycodone GI distress Active Bee sting breathing Active hydrocodone Gi distress Active penicillins breathing/rash Act nhan Immunizations Given and Recorded Vaccine Date Status Refusal Reason influenza virus vaccine, inactivated 01/25/16 Talon rded influenza virus vaccine, inactivated 02/07/14 Talon rded influenza virus vaccine, inactivated 01/10/13 Give n influenza virus vaccine, inactivated 02/04/12 Talon rded zoster vaccine live 01/10/13 Given pneumococcal 23-valent vaccine 04/26/12 Recorded tetanus/diphtheria/pertuss, acel (Tdap) 06/25/11 R ecorded Medications aluminum nitrate Start: 05/04/17 11:10:00 AM EST, aluminum nitrate Start Date: 05/04/17 Status: Ordered Aspirin Low Dose Start: 08/20/11 9:07:00 AM EDT, 81 mg =, PO, Daily, Refills: 0 Start Date: 08/20/11 Status: Ordered bumetanide 1 mg oral tablet Start: 07/21/11 10:01:00 AM EDT, 1 tab, PO, Daily Start Date: 07/21/11 Status: Ordered buPROPion 100 mg oral tablet Start: 04/13/14 10:18:00 AM EST, 1 tab, PO, bid Start Date: 04/13/14 Status: Ordered carvedilol 12.5 mg oral tablet Start: 01/29/15 12:33:00 PM EDT, See Instructions, 2 tabs in AM, 1 tab in pm Start Date: 01/29/15 Status: Ordered cetirizine Start: 03/21/21 11:30:00 AM EST Start Date: 03/21/21 Status: Ordered Doculase 100 mg oral capsule Start: 10/09/10 11:28:00 AM EDT, 1 cap, PO, bid, PRN: as needed for constipation Start Date: 10/09/10 Status: Ordered doxycycline hyclate 100 mg oral capsule Start: 04/05/24 1:29:00 PM EST, 1 cap, PO, bid, Disp# 14 cap, Pharmacy: [facility] 1640 Start Date: 04/05/24 Stop Date: 04/12/24 Status: Ordered doxycycline hyclate 100 mg oral tablet Start: 04/18/24 9:33:00 AM EST, 1 tab, PO, bid, Disp# 14 tab, Refills: 0, take with food, Pharmacy:[facility] 1640 Start Date: 04/18/24 Stop Date: 04/25/24 Status: Ordered Eliquis 5 mg oral tablet Start: 11/04/23 3:37:00 PM EDT, 1 tab, PO, bid Start Date: 11/04/23 Status: Ordered epinephrine 0.3 mg injectable kit Start: 10/09/10 11:30:00 AM EDT, 0.3 mg =, IM, ONCE, PRN: as needed for anaphylaxis Start Date: 10/09/10 Status: Ordered finasteride 5 mg oral tablet Start: 10/09/10 11:30:00 AM EDT, 1 tab, PO, Daily Start Date: 10/09/10 Status: Ordered metoclopramide 5 mg oral tablet Start: 10/09/10 11:29:00 AM EDT, 2 tab, PO, q8h Start Date: 10/09/10 Status: Ordered mometasone nasal 50 mcg/inh spray Start: 10/09/10 11:29:00 AM EDT, 2 spray, intranasal, Daily, PRN: as needed for allergy symptoms Start Date: 10/09/10 Status: Ordered pantoprazole 40 mg oral delayed release tablet Start: 08/02/12 2:55:00 PM EDT, See Instructions, Disp# 60 tab, Refills: 1, 1 tab PO BID while takingalleve for shoulder pain FAX TO [facility] at [phone], Brand Medically Necessary Start Date: 08/02/12 Status: Ordered pramipexole 0.375 mg oral tablet, extended release Start: 11/04/23 3:37:00 PM EDT Start Date: 11/04/23 Status: Ordered ProAir HFA 90 mcg/inh inhalation aerosol Start: 07/18/14 1:33:00 PM EDT, 2 puff, inhaled, PRN: as needed for wheezing Start Date: 07/18/14 Status: Ordered Refresh Start: 04/13/14 10:25:00 AM EST, 1 drop, both eyes, bid Start Date: 04/13/14 Status: Ordered rosuvastatin 20 mg oral tablet Start: 07/27/22 11:55:00 AM EDT, 1 tab, PO, Daily Start Date: 07/27/22 Status: Ordered senna 8.6 mg oral tablet Start: 08/20/11 9:07:00 AM EDT, 1 tab, PO, bid, PRN: as needed for constipation Start Date: 08/20/11 Status: Ordered valsartan Start: 07/27/22 11:53:00 AM EDT, 51 mg 1 twice daily Start Date: 07/27/22 Status: Ordered Problem List Condition Confirmation Course Effective Dates Status H ealth Status Informant Unspecified atrial fibrillation Confirmed 11/04/23 Active Atrial tachycardia Confirmed Active CAD (coronary artery disease) Confirmed Active Cardiomegaly Confirmed Active Chronic orthostatic hypotension Confirmed Active COPD Confirmed Active DEPRESSION Confirmed Active DiverticulOSIS Confirmed Active Ejection fraction < 50% Confirmed Active GERD Confirmed Active History of colonic polyps 1 Confirmed Active History of smoking Confirmed Active HTN - Hypertension Confirmed Active Hyperlipidemia Confirmed Active Ischemic cardiomyopathy Confirmed Active MACULAR DEGENERATION (SENILE) OF RETINA, UNSPECIFIED Confirmed Active ROSE - Obstructive sleep apnea Confirmed 11/04/23 Active Systolic CHF, chronic Confirmed Active 1Total removed previously: 03-07 including 5 removed at 08-01-2012 COLO. None were cancerous, few were"pre-cancerous" Procedures Procedure Date Related Diagnosis Body Site Status Chest X-ray 1 02/27/22 Completed Plain X-ray of left hip 2 02/20/22 Completed Plain X-ray of left shoulder 3 02/20/22 Completed Ankle X-ray RT min 3V routin e, X-Ray foot RT min 3V routine 4 03/21/21 Complet ed Colonoscopy 5, 6, 7 03/06/20 Compl eted Full sleep study 8 06/15/19 Comple delmy Cystoscopy 9 08/05/17 Completed Chest X-ray 10 07/23/17 Completed KUB X-ray 11 07/12/[address] of head 12 06/04/[address] of head 13 05/08/17 Completed RELIEVE BLADDER CONTRACTURE 05/07/17 Completed Chest x-ray 14 05/06/[address] head w/o contrast 15 05/05/17 C ompleted Chest x-ray 16 02/15/17 Completed Chest x-ray 17 12/25/16 Completed Plain X-ray lumbar spine normal 18 10/08/16 Completed X-ray of thoracic spine 19 10/08/16 Completed Carotid artery doppler normal 20 09/02/16 Completed Chest x-ray 21 09/01/[address] angiogram of head, neck a nd thorax 22 09/01/[address] head w/o contrast 23 09/01/16 C ompleted Echocardiogram 24 09/01/16 Complet ed KUB X-ray 25 07/10/16 Completed Endoscopy 26 05/08/16 Completed Chest x-ray 27 02/18/16 Completed Punch biopsy 28 01/22/16 Completed Cervical spine X-ray 29 01/20/16 C ompleted Soft tissue X-ray face 30 01/20/16 Completed Gross pathology 31 11/21/15 Comple delmy Cholecystectomy 11/20/[address] of abdomen and pelvis 32 11/20/15 Completed Nuclear medicine imaging procedure 33 11/18/15 Completed X-ray of left foot 34 10/09/15 Com pleted Examination of eye 08/05/15 Comple delmy Chest x-ray 35 06/12/15 Completed Doppler ultrasonography of a rterial inflow and venous outflow of abdominal, pelvic and retroperitoneal organs 36 06/12/15 Completed Chest x-ray 37 02/19/15 Completed Cataracts- right eye 38 11/07/14 C ompleted Colonoscopy 39, 40 09/10/14 Comple delmy X-ray of left foot 41 07/18/14 Com pleted US scan of abdominal aorta 42 04/20/14 Completed Examination of eye 03/15/[address] of chest 11/09/13 Completed colonoscopy 08/11/12 Completed echocardiogram-[facility] 08/11/12 Compl eted shoulder 43 08/02/12 Completed shoulder 44 08/02/12 Completed colonoscopy-[facility] 45 08/01/12 Com pleted Defibrillator 04/26/11 Completed Stent 11/19/10 Completed Khari fundoplication 2002 Com pleted Macular hole 46 1994 Completed Foot surgery 47, 48 1993 Compl eted Hernia 49 04/26/86 Completed Vasectomy 1974 Completed Cystoscopy Completed History of bilateral catarac t extraction Completed History of cardiac catheterization Completed History of cholecystectomy Completed History of colonoscopy 50 Completed Pacermaker Completed 1Impression: Cardiomegaly is noted. No evidence of airspace disease. Interstitial thickening is noted 2Impression: Degenerative changes without evidence of acute abnormality 3No fracture is seen. Degenerative changes are noted. 4Impression: Moderate anterolateral soft tissue swelling of the ankle. No acute fracture or dislocation. 5Impression: One 3 mm polyp at the hepatic flexure, removed with a cold biopsy forceps. Resected andretrieved. Diverticulosis in the sigmoid colon. 6Final Diagnosis: Colon, hepatic flexure polypectomy: Tubular adenoma. Negative for high grade dysplasia. 7recommendations: repeat colonoscopy in 5 years. 8Split polysomnograph: Severe complex sleep anpean corrected with BiPAP 18/. 9Urinary Bladder (transurethral resection): 1. Mild & focal chronic cystitis, squamous metaplasia, focal cystitis glandularis cystica, & hypertrophy of muscularis propria muscle. 2. Dysplasia & carcinoma NOT seen. 10Cardiomegaly. No active disease in chest. 111. Unchanged right renal calculus. 12This study has reverted to a baseline appearance with no intracranial acute abnormality at this time. 13Continued improvement in appearance of small focus of slightly increased density right superior parietal lobe. No new or interval process. No evidence of progressive hemorrhage. 14Interval development of asymmetric pulmonary edema right greater than left. Small right pleural effusion. 151. The previously identified focus of increased attenuation within the right parietal lobe is less conspicuous on the current study. This likely represents a resolving trace subarachnoid hemorrhage. 2. No new findings are evident. 161. mild cardiomegaly 2. bibasilar atelectasisi 3. no evidenc of failure. no evidence of lobar consolidation 17Hiatal hernia, and bibasal atelectasis/scarring. No acute findings. 18Moderate degenerative change. No acute bony abnormality. 19Moderate multilevel degenerative change. No acute fractures or traumatic subluxations are visualized on conventional radiographic imaging. 20no hemodynamically significant stenosisi seen within the carotid arteries. 21minimal infitravitve hcange left base. mild stable cardiomegaly 22no significant stenosi, occlusion, dissecton identified within the cartid or vertebral arteries. Mild focal narrowing within the mid right subclavian artery 231. no acute intracranial hemorrhage or mass effect 2. slight asymmetric decreaswed density of the right caudate head. this is probably artifiactual although a subacute to acute infarct could appear similar 241. normal LVsize. Mild concentric LVH 2. mild LV dysfuction. LVEF 45-50% inferior wall akinesis. Posterior wall severe hypokinesis 3. RN not well visualized. Grossly normal size and fucntion 4. Grade II diastolic dysfunction 5. No significnat vavular pathology 6. compared with prior study on 06/13/15 no significant changes. 256 mm right renal stone. no definite left renal or ureteral calculi 26normal esophagus normal stomach normal examined duodenum no specimens colletcted 27no acute findings. no change in appearance of the chest. 28right thigh 29Moderate multilevel degenerative change. No acute fractures or subluxations are visualized on conventional radiographic imaging. 30No fractures within the visualized osseous structures. 31gallbladder mucosa wihtout significant inflammation. no calculi identifed 321. No evidence of celiac, superior mesenteric artery or renal artery stenosis. 2. No evidence of bowel obstruction. No evidence of free air. Normal appendix. Diverticulosis. No evidence of acute periverticular inflammatory change. 3. Recurrent right inguinal hernia. 4. Hiatal hernia. 5. Emphysema with dependent lower lobe traction bronchiecatasis, and groundglass opacity. 331. no evidenc for cystic duct obstruction 2. slightly delayed visualization of the small bowel. this could be normal variant 3. abnormally low gallbladder ejection fractioin of 19%. this could represent biliary dyskinesia orpossibly chronic cholecystitis within the delayed visualization of the small bowel 341. No acute fracture or dislocation of the left foot. 2. Moderate arthritis within the left midfoot 3. No change in the 2.7cm lucent lesion within the posterior calcaneus since exam of 07/18/14. This is indeterminate although likely benign 35no significant change compared to the prior study. no acute process 36no DVT within the right lower extremetiy 37Cardiomegaly and blunting of the posterior costophrenic angles. No evidence of pneumothorax status post pacemaker placement 38phacoemusificaiton of right cataract with posterior chamber lens implant 39Repeat in 5 years. 40Diverticulosis in sigmoid colon. Non bleeding internal hemorrhoids. 41Heel spur. Mild bunion deformity distal first metatarsal 42No evidence of aneurysm. 43right xr osteoarthritic more pronounced than left 44left xr mild osteoarthritic changes 455 POLYPS REMOVED, DIVERICULOSIS 46Left eye, macular hole closed 47Surgery left foot x 2 in 2003 48Surgery on right foot [id number], 1986 50with polypectomy Social History Social History Type Response Tobacco Current every day sm oker, Cigarettes, 10 per day. 55 year(s). Started age 16 Years. 1 Smoking Status Never smoked cigaret gabriela Sex Male Sex Representation Male (finding) 1quit July 05, 1992 Patient Care team information Care Team Personnel Name: FRANNY Nunes Kimberly A Position: Physician Asst Exmpt - Family Med Member Role: Lifetime Relationship Address: [address] [place] [address] [place] Name: MD Peterson Christopher Position: Physician - Family Med Member Role: Primary Care Provider Address: [address] [place] [address] [place] Name: FRANNY Perdomo Lynn Position: Physician Pile Trimmer Exempt - Vasc Surg Member Role: Lifetime Relationship Address: [address] [place] [address] [place] Care Team Related Persons Name: HUMPHREY DEUTSCH
--- OUTSIDE RECORDS SUMMARY | 2024-06-06 08:27 | External Medical Summary | Continuity of Care Document ---
Author Name Unknown Organization [address] [id number] Care Team Providers Care Fire Adjuster Name Role Phone Tramaine Peterson Primary Care Physician [phone] [id number] Date(s): 04/18/24 - 04/18/24 [facility] [address] [place] [phone] Encounter Diagnosis Epidermal inclusion cyst(Discharge Diagnosis) - 04/18/24 Discharge Disposition: Home or Self Care Attending Physician: MD Waite Thomas A Referring Physician: MD Peterson Christopher Allergies, Adverse Reactions, Alerts Substance Criticality Severity Reaction Reaction Severity Status lidocaine rash Active oxycodone GI distress Active Bee sting breathing Active hydrocodone Gi distress Active penicillins breathing/rash Act nhan Assessment and Plan Extracted from: Title:Clinical Document Author:MD Mariann, Zoe Suarez Date:04/18/24 OUTPATIENT NOTE Name: ZIGGY DEUTSCH Patient Number:1 [id number] : 1945 Date of Service: 04/18/2024 Sam Deutsch presents for evaluation of a cystic lesion present on the right cheek of several weeks duration. This is gradually enlarged and was treated with a course of doxycycline with some reduction in size, but persistence of a nodule in the right malar cheek. Clinical impression is that of an epidermal inclusion cyst which was after consent obtained, anesthetized with lidocaine with epinephrine local anesthetic followed by incision and drainage of a small amount of fluid. Hemostasis achieved with electrocautery and wound closed with two 5-0 simple interrupted nylon sutures. Gelfoam and compression dressing applied. Patient tolerated procedure well. Patient was treated with an additional 1 week course of doxycycline 100 mg twice daily. Return 1 week for suture removal. Addendum by MD Waite Thomas A on April 18, 2024 09:40 EST * Immunizations Given and Recorded Vaccine Date Status [...] cap, PO, bid, Disp# 14 cap, Pharmacy: [facility] 1640 Start Date: 04/05/24 Stop Date: 04/12/24 Status: Ordered doxycycline hyclate 100 mg oral tablet Start: 04/18/24 9:33:00 AM EST, 1 tab, PO, bid, Disp# 14 tab, Refills: 0, take with food, Pharmacy:[facility] 1640 Start Date: 04/18/24 Stop Date: 04/25/24 [...] while takingalleve for shoulder [facility] [phone], Brand Medically Necessary Start Date: 08/02/12 Status: [...] twice daily Start Date: 07/27/22 Status: Ordered Mental Status 04/18/24 Barriers to Learning one year None evide nt Mandatory Health Literacy Documentation Yes Communication Barrier Present No Health Literacy Communication Barriers N ever Primary Language Lao Problem List Condition Confirmation Course Effective Dates [...] 08-01-2012 COLO. None were cancerous, few were"pre-cancerous" Diagnosis Diagnosis Type Effective Dates Health Status Cl inical Service Informant Epidermal inclusion cyst Discharge Diagnosis 04/18/24 Procedures Procedure Date Related Diagnosis Body Site [...] of chest 11/09/13 Completed colonoscopy 08/11/12 Completed [facility] 08/11/12 Compl eted shoulder 43 08/02/12 Completed shoulder 44 08/02/12 Completed colonoscopy-[facility] 45 08/01/12 Com pleted Defibrillator 04/26/11 Completed [...] Severe complex sleep anpean corrected with BiPAP 11/01. 9Urinary Bladder (transurethral resection): 1. Mild & [...] 2 in 2003 48Surgery on right foot [id number], 1987 50with polypectomy Social History Social History Type Response Tobacco Current every day sm oker, Cigarettes, 10 per day. 55 year(s). Started age 16 Years. 1 Smoking Status Never smoked cigaret gabriela Sex Male Sex Representation Male (finding) 1quit July 05, 1992 Outpatient Note * MD Waite Thomas A: PERFORM Event Display: .Outpt Note Authored Date: [id number] OUTPATIENT NOTE Name: ZIGGY DEUTSCH Patient Number:1 [id number] : 1945 Date of Service: 04/18/2024 _ Ziggy Deutsch presents for evaluation of a cystic lesion present on the right cheek of several weeks duration. This is gradually enlarged and was treated with a course of doxycycline with some reduction in size, but persistence of a nodule in the right malar cheek. Clinical impression is that of an epidermal inclusion cyst which was after consent obtained, anesthetized with lidocaine with epinephrine local anesthetic followed by incision and drainage of a smallamount of fluid. Hemostasis achieved with electrocautery and wound closed with two 5-0 simple interrupted nylon sutures. Gelfoam and compression dressing applied. Patient tolerated procedure well. Patient was treated with an additional 1 week course of doxycycline 100 mg twice daily. Return 1 week for suture removal. Electronic Signature on File Electronically Reviewed/Signed by: Carson Waite MD Author Signature Dt/Tm:04/18/2024 09:36 AM Department of Dermatology [facility] * MD Mariann, Carson Suarez: PERFORM Event Display: .Outpt Note Authored Date: [id number] * Electronic Signature on File CC: Akila Arias, [address] [id number] Electronically Reviewed/Signed by: Carson Waite MD Author Signature Dt/Tm:04/18/2024 09:40 AM Department of Dermatology [facility] Patient Care team information Care Team Personnel Name: FRANNY Nunes Kimberly A Position: Physician Asst Exmpt - Family Med Member Role: Lifetime Relationship Address: [address] Name: MD Peterson Christopher Position: Physician - Family Med Member Role: Primary Care Provider Address: [address] [facility] [address] [place] [address] [place] Name: FRANNY Perdomo Lynn Position: Physician Steam Box Operator Exempt - Vasc Surg Member Role: Lifetime Relationship Address: [address] [facility] [address] [place] [address] Care Team Related Persons Name: HUMPHREY DEUTSCH
--- OUTSIDE RECORDS SUMMARY | 2024-06-06 08:27 | External Medical Summary | Continuity of Care Document ---
Author Name Unknown Organization [facility] [address] [place] [address] BRYNN WALKER [phone] Care Team Providers Care Senior Solutions Architect Name Role Phone Tramaine Peterson Primary Care Physician [phone] [facility] [id number] Date(s): 05/24/24 - 05/24/24 [facility] [address] [facility] [place] [facility] [address], [address] BR[place]NN Manzo [address] [phone] Encounter Diagnosis Atrial tachycardia(Discharge Diagnosis) - 05/24/24 Discharge Disposition: Home or Self Care Attending Physician: MD Major Mario D Referring Physician: MD Brady, Nav Prasad Allergies, Adverse Reactions, Alerts Substance Criticality Severity [...] cap, PO, bid, Disp# 14 cap, Pharmacy: [facility] 1640 Start Date: 04/05/24 Stop Date: 04/12/24 Status: Ordered doxycycline hyclate 100 mg oral tablet Start: 04/18/24 9:33:00 AM EST, 1 tab, PO, bid, Disp# 14 tab, Refills: 0, take with food, Pharmacy:[facility] 1640 Start Date: 04/18/24 Stop [...] allergy symptoms Start Date: 10/09/10 Status: Ordered oxyCODONE 10 mg oral tablet Start: 05/24/24 9:19:00 AM EST, 1 tab, PO, Refills: 0 Start Date: 05/24/24 Status: Ordered pantoprazole 40 mg oral delayed release tablet Start: 08/02/12 2:55:00 PM EDT, See Instructions, Disp# 60 tab, Refills: 1, 1 tab PO BID while takingalleve for shoulder [facility] [phone], Brand Medically Necessary Start Date: 08/02/12 Status: [...] Start Date: 07/27/22 Status: Ordered Mental Status 05/24/24 Barriers to Learning one year None evide nt Mandatory Health Literacy Documentation Yes Health Literacy Communication Barriers N ever Primary Language Estonian Problem List Condition Confirmation Course Effective Dates [...] Diagnosis Diagnosis Type Effective Dates Health Status Clinical Service Informant Atrial tachycardia Discharge Diagnosis 05/24/24 Non-Specified Procedures Procedure Date Related Diagnosis Body Site [...] of chest 11/09/13 Completed colonoscopy 08/11/12 Completed echocardiogram[facility] 08/11/12 Compl eted shoulder 43 08/02/12 Completed shoulder 44 08/02/12 Completed colonoscopy-[facility] 45 08/01/12 Com pleted Defibrillator 04/26/11 Completed [...] 2 in 2003 48Surgery on right foot [id number], 1986 50with polypectomy Vital Signs Most recent to oldest [Reference Range]: 1 Patient Weight 108.9 kg 1 (05/24/24 9:23 AM) Temperature [36.5-37.9 DegC] 36.2 DegC *LOW* (05/24/24 9:23 AM) Heart Rate 110 bpm (05/24/24 9:23 AM) Respiratory Rate 18 br/min (05/24/24 9:23 AM) Blood Pressure 92/60mmHg 2 (05/24/24 9:23 AM) Cuff Pulse Pressure 32 mmHg (05/24/24 9:23 AM) BP Location # 1 Right Arm (05/24/24 9:23 AM) 1Result Comment: w/shoes 2Result Comment: patient states this is his norm Social History Social History Type Response Tobacco Current every day sm oker, Cigarettes, 10 per day. 55 year(s). Started age 16 Years. 1 Smoking Status Former Smoker, quit > 1 yr Sex Male Sex Representation Male (finding) 1quit July 05, 1992 Radiology * Event Display: Cardiac Device Check Authored Date: Please click on link to see image. EKG study * Contributor_system, [email or web address]: VERIFY, PERFORM Event Display: EKG Authored Date: Please click on link to see image. Patient Care team information Care Team Personnel Name: FRANNY Nunes Kimberly A Position: Physician Asst Exmpt - Family Med Member Role: Lifetime Relationship Address: [address] [place] [address] [place] Name: MD Peterson Christopher Position: Physician - Family Med Member Role: Primary Care Provider Address: [address] [place] [address] [place] Name: FRANNY Perdomo Lynn Position: Physician Meat Butcher Exempt - Vasc Surg Member Role: Lifetime Relationship Address: [address] [facility] [address] [place] [address] [place] Care Team Related Persons Name: HUMPHREY DEUTSCH
--- OUTSIDE RECORDS SUMMARY | 2024-06-06 08:27 | External Medical Summary | Continuity of Care Document ---
Author Name Unknown Organization [facility] Address [address] [place] [address] [phone] Care Team Providers Care Content Checker Name Role Phone Nicholas Masonkarl Primary Care Physician [phone] Encounter [facility] [id number] Date(s): 05/30/24 - 06/02/[address] [phone] Encounter Diagnosis ROSE - Obstructive sleep apnea(Discharge Diagnosis) - 06/02/24 HTN - Hypertension(Discharge Diagnosis) - 06/02/24 GERD(Discharge Diagnosis) - 06/02/24 Acute exacerbation of chronic heart failure(Discharge Diagnosis) - 05/31/24 Acute on chronic hypoxic respiratory failure(Discharge Diagnosis) - 06/02/24 History of electrophysiologic study(Discharge Diagnosis) - 06/01/24 Acute on chronic HFrEF (heart failure with reduced ejection fraction)(Discharge Diagnosis) - 06/02/24 Atrial tachycardia(Discharge Diagnosis) - 05/30/24 Constipation(Discharge Diagnosis) - 06/02/24 CAD (coronary artery disease)(Discharge Diagnosis) - 06/02/24 Obesity (BMI 30-39.9)(Discharge Diagnosis) - 06/02/24 COPD(Discharge Diagnosis) - 06/02/24 Discharge Disposition: Home or Self Care Attending Physician: DO Tran Vincent A Admitting Physician: MD Hernandez Jordan B Referring Physician: MD Major Mario D Allergies, Adverse Reactions, Alerts Substance Criticality Severity Reaction Reaction Severity Status lidocaine rash Active oxycodone GI distress Active Bee sting breathing Active hydrocodone Gi distress Active penicillins breathing/rash Act nhan Functional Status 06/02/24 Neurological Symptoms None ADLs Moderate assistance Facial Symmetry Symmetric Gait Unable to assess Swallowing Difficulty None Level of Consciousness Neuro Alert Hallucinations Present None Speech Pattern Clear 06/02/24 History of Fall in Last 3 Months Valdez N o Presence of Secondary Diagnosis Valdez Ye s Use of Ambulatory Aid Valdez Crutches/can e/walker IV/Heparin Lock Fall Risk Valdez Yes Gait/Transferring Fall Risk Valdez Normal /bedrest/immobile Mental Status Fall Risk Valdez Oriented t o own ability Vladez Fall Risk Score 50 Valdez Fall Risk High risk Immunizations Given and Recorded Vaccine Date Status Refusal Reason influenza virus vaccine, inactivated 01/25/16 Talon rded influenza virus vaccine, inactivated 02/07/14 Talon rded influenza virus vaccine, inactivated 01/10/13 Give n influenza virus vaccine, inactivated 02/04/12 Talon rded zoster vaccine live 01/10/13 Given pneumococcal 23-valent vaccine 04/26/12 Recorded tetanus/diphtheria/pertuss, acel (Tdap) 06/25/11 R ecorded Medications Aspirin Low Dose Start: 08/20/11 9:07:00 AM [...] oral tablet Start: 01/29/15 12:33:00 PM EDT, 1 tab, PO, bid Start Date: 01/29/15 Status: Ordered cetirizine Start: 03/21/21 11:30:00 AM EST Start Date: 03/21/21 Status: Ordered Doculase 100 mg oral capsule Start: 10/09/10 11:28:00 AM EDT, 1 cap, PO, bid, PRN: as needed for constipation Start Date: 10/09/10 Status: Ordered Eliquis 5 mg oral tablet Start: 11/04/23 3:37:00 PM EDT, 1 tab, PO, bid Start Date: 11/04/23 Status: Ordered Entresto 49 mg-51 mg oral tablet Start: 06/02/24 8:37:00 AM EST, 1 tab, PO, bid Start Date: 06/02/24 Status: Ordered epinephrine 0.3 mg injectable kit [...] allergy symptoms Start Date: 10/09/10 Status: Ordered nystatin 100,000 units/g topical powder Start: 05/30/24 9:02:00 AM EST Start Date: 05/30/24 Status: Ordered oxyCODONE 10 mg oral tablet Start: 05/24/24 9:19:00 AM EST, 1 tab, PO, q12h, Refills: 0 Start Date: 05/24/24 Status: Ordered pantoprazole 40 mg oral delayed release tablet Start: 08/02/12 2:55:00 PM EDT, See Instructions, Disp# 60 tab, Refills: 1, 1 tab PO BID while takingalleve for shoulder [facility] [phone], Brand Medically Necessary Start Date: 08/02/12 Status: Ordered Potassium Chloride (Acz-Heil-Eab M20) Start: 05/30/24 9:00:00 AM EST, 20 mEq =, PO, bid Start Date: 05/30/24 Status: Ordered pramipexole 0.375 mg oral tablet, [...] Ordered rosuvastatin 20 mg oral tablet Start: 06/02/24 9:59:00 AM EST, 0.5 tab, PO, Daily Start Date: 06/02/24 Status: Ordered senna 8.6 mg oral tablet Start: 08/20/11 9:07:00 AM EDT, 1 tab, PO, bid, PRN: as needed for constipation Start Date: 08/20/11 Status: Ordered Stiolto Respimat 10 ACT 2.5 mcg-2.5 mcg/inh inhalation aerosol Start: 05/30/24 9:03:00 AM EST, 2 inh, inhaled, Daily Start Date: 05/30/24 Status: Ordered Mental Status 06/02/24 Primary Language Setswana 05/31/24 Communication Barrier Present No Problem List Condition Confirmation Course Effective Dates Status H ealth Status Informant Unspecified atrial fibrillation Confirmed 11/04/23 Active Atrial tachycardia Confirmed Active Obesity (BMI 30-39.9) Confirmed Active CAD (coronary artery disease) Confirmed [...] Clinical Service Informant Atrial tachycardia Discharge Diagnosis 05/30/24 Non-Specified Acute exacerbation of chronic heart failure Discharge Diagnosis 05/31/24 Non-Specified History of electrophysiologic study Discharge Diagnosis 06/01/24 Non-Specified Acute on chronic hypoxic respiratory failure Discharge Diagnosis 06/02/24 Non-Specified Constipation Discharge Diagnosis 06/02/24 Non-Specified COPD Discharge Diagnosis 06/02/24 Non-Specified Acute on chronic HFrEF (heart failure with reduced ejection fraction) Discharge Diagnosis 06/02/24 Non-Specified CAD (coronary artery disease) Discharge Diagnosis 06/02/24 Non-Specified Obesity (BMI 30-39.9) Discharge Diagnosis 06/02/24 Non-Specified ROSE - Obstructive sleep apnea Discharge Diagnosis 06/02/24 Non-Specified GERD Discharge Diagnosis 06/02/24 Non-Specified HTN - Hypertension Discharge Diagnosis 06/02/24 Non-Specified Procedures Procedure Date Related Diagnosis Body [...] of chest 11/09/13 Completed colonoscopy 08/11/12 Completed echocardiogram[facility] 08/11/12 Compl eted shoulder 43 08/02/12 [...] 2 in 2003 48Surgery on right foot 139456, 1986 50with polypectomy Results Laboratory List Name Date Added on Lab order 06/02/24 Complete Blood Count (CBC w Platelets) Magnesium Level 06/02/24 Nephrology Panel 06/02/24 NT-Pro BNP 06/02/24 Complete Blood Count (CBC w Platelets) Magnesium Level 06/01/24 Nephrology Panel 06/01/24 Complete Blood Count (CBC w Platelets) Magnesium Level 06/01/24 Nephrology Panel 06/01/24 MRSA Surveillance (Nasal Swab) 05/31/24 Calcium, Ionized (Ionized Calcium) 5 Hepatic Function Panel 05/31/24 Partial Thromboplastin Time (PTT) 05/31/24 Prothrombin Time w/ INR (PT/INR) 05/31/24 Specimen Type (SPECIMEN TYPE) 05/31/24 Complete Blood Count w Differential (CBC w Platelets and Diff) 05/31/24 Hepatic Function Panel (HEPATIC FUNCT PA CRISTIANO) 05/31/24 ACT, Celite, by IStat (Needle Loom Setter) (ACT CE LITE ISTAT (CATH)) 05/30/24 ACT, Celite, by IStat (Needle Loom Setter) (ACT CE LITE ISTAT (CATH)) 05/30/24 ACT, Celite, by IStat (Needle Loom Setter) (ACT CE LITE ISTAT (CATH)) 05/30/24 Most recent to oldest [Reference Range]: 1 2 3 eGFR CKD-EPI [>60 mL/min/1.73 m2] 73 mL/min/1.73 m2 (06/02/24 4:11 AM) 66 mL/min/1.73 m2 (06/01/24 4:55 PM) 62 mL/min/1.73 m2 (06/01/24 3:10 AM) Request of Physician NT pro BNP (06/02/24 4:12 AM) Action Taken YES (06/02/24 4:12 AM) BNP, NT-Pro [<450 pg/mL] 7148 pg/mL *HI* (06/02/24 4:11 AM) Estimated CrCl 72.62 mL/min (06/02/24 4:56 AM) 66.83 mL/min (06/01/24 5:39 PM) 63.46 mL/min (06/01/24 4:08 AM) MPV [9.0-12.2 fL] 10.8 fL (06/02/24 4:11 AM) 10.9 fL (06/01/24 4:55 PM) 11.2 fL (06/01/24 3:10 AM) Immature Gran% 0.9 % (05/31/24 6:19 AM) Neut% 77.1 % (05/31/24 6:19 AM) Lymph% 13.4 % (05/31/24 6:19 AM) Calvert% 7.9 % (05/31/24 6:19 AM) Baso% 0.2 % (05/31/24 6:19 AM) Eos% 0.5 % (05/31/24 6:19 AM) Immat Gran, Abs [0-0.4 K/uL] 0.10 K/uL (05/31/24 6:19 AM) Neut, Abs [2.0-7.7 K/uL] 8.93 K/uL *HI* (05/31/24 6:19 AM) Lymph, Abs [1.0-3.4 K/uL] 1.55 K/uL (05/31/24 6:19 AM) Calvert, Abs [0-1.0 K/uL] 0.91 K/uL (05/31/24 6:19 AM) Baso, Abs [0-0.1 K/uL] 0.02 K/uL (05/31/24 6:19 AM) Eos, Abs [0-0.5 K/uL] 0.06 K/uL (05/31/24 6:19 AM) Type of Diff: AUTO (05/31/24 6:19 AM) RDW [11.5-14.2 %] 13.9 % (06/02/24 4:11 AM) 14.1 % (06/01/24 4:55 PM) 14.3 % *HI* (06/01/24 3:10 AM) MRSA Surveillance, on Admission [MSND] MRSA NOT detected (05/31/24 10:19 AM) Anion Gap [5-14 mmol/L] 15 mmol/L *HI* (06/02/24 4:11 AM) 15 mmol/L *HI* (06/01/24 4:55 PM) 14 mmol/L (06/01/24 3:10 AM) Alb [3.5-5.2 g/dL] 3.8 g/dL (06/02/24 4:11 AM) 4.1 g/dL (06/01/24 4:55 PM) 3.6 g/dL (06/01/24 3:10 AM) Alk Phos [40-130 unit/L] REQUEST CREDITE D unit/L 1 (05/31/24 9:21 AM) 59 unit/L 2 (05/31/24 6:19 AM) ALT [0-41 unit/L] REQUEST CREDITED unit/L 3 (05/31/24 9:21 AM) 17 unit/L (05/31/24 6:19 AM) AST [0-40 unit/L] REQUEST CREDITED unit/L 4 (05/31/24 9:21 AM) 34 unit/L (05/31/24 6:19 AM) BUN [6-23 mg/dL] 34 mg/dL *HI* (06/02/24 4:11 AM) 32 mg/dL *HI* (06/01/24 4:55 PM) 31 mg/dL *HI* (06/01/24 3:10 AM) Ca [8.4-10.2 mg/dL] 8.8 mg/dL (06/02/24 4:11 AM) 8.9 mg/dL (06/01/24 4:55 PM) 8.8 mg/dL (06/01/24 3:10 AM) Ion Ca [1.15-1.27 mmol/L] 1.19 mmol/L (05/31/24 9:03 AM) Cl- [98-107 mmol/L] 101 mmol/L (06/02/24 4:11 AM) 100 mmol/L (06/01/24 4:55 PM) 103 mmol/L (06/01/24 3:10 AM) HCO3 [22-29 mmol/L] 20 mmol/L *LOW* (06/02/24 4:11 AM) 20 mmol/L *LOW* (06/01/24 4:55 PM) 21 mmol/L *LOW* (06/01/24 3:10 AM) Cret [0.70-1.30 mg/dL] 1.04 mg/dL (06/02/24 4:11 AM) 1.13 mg/dL (06/01/24 4:55 PM) 1.19 mg/dL (06/01/24 3:10 AM) D Bili [<0.2 mg/dL] REQUEST CREDITED mg/dL 5 (05/31/24 9:21 AM) 0.2 mg/dL *HI* (05/31/24 6:19 AM) BF Source 40% 36.7 (05/31/24 9:03 AM) Glu [74-109 mg/dL] 117 mg/dL 6 *HI* (06/02/24 4:11 AM) 139 mg/dL 7 *HI* (06/01/24 4:55 PM) 124 mg/dL 8 *HI* (06/01/24 3:10 AM) Hct [39-48 %] 36.6 % *LOW* (06/02/24 4:11 AM) 40.8 % (06/01/24 4:55 PM) 37.5 % *LOW* (06/01/24 3:10 AM) Hgb [13.0-17.0 g/dL] 12.2 g/dL *LOW* (06/02/24 4:11 AM) 13.4 g/dL (06/01/24 4:55 PM) 12.2 g/dL *LOW* (06/01/24 3:10 AM) INR [0.9-1.1] 1.4 9 *HI* (05/31/24 9:40 AM) K [3.5-5.1 mmol/L] 3.7 mmol/L (06/02/24 4:11 AM) 4.2 mmol/L (06/01/24 4:55 PM) 4.2 mmol/L (06/01/24 3:10 AM) MCH [28-33 pg] 30.0 pg (06/02/24 4:11 AM) 29.7 pg (06/01/24 4:55 PM) 29.3 pg (06/01/24 3:10 AM) MCHC [32-36 g/dL] 33.3 g/dL (06/02/24 4:11 AM) 32.8 g/dL (06/01/24 4:55 PM) 32.5 g/dL (06/01/24 3:10 AM) MCV [81-96 fL] 89.9 fL (06/02/24 4:11 AM) 90.5 fL (06/01/24 4:55 PM) 89.9 fL (06/01/24 3:10 AM) Mg [1.6-2.6 mg/dL] 2.2 mg/dL (06/02/24 4:11 AM) 2.1 mg/dL (06/01/24 4:55 PM) 2.0 mg/dL (06/01/24 3:10 AM) Na [136-145 mmol/L] 136 mmol/L (06/02/24 4:11 AM) 135 mmol/L *LOW* (06/01/24 4:55 PM) 138 mmol/L (06/01/24 3:10 AM) PO4 [2.5-4.5 mg/dL] 3.7 mg/dL (06/02/24 4:11 AM) 2.5 mg/dL (06/01/24 4:55 PM) 3.1 mg/dL (06/01/24 3:10 AM) Plts [150-350 K/uL] 208 K/uL (06/02/24 4:11 AM) 235 K/uL (06/01/24 4:55 PM) 208 K/uL (06/01/24 3:10 AM) PT [12.0-14.2 seconds] 16.5 seconds *HI* (05/31/24 9:40 AM) PTT [23-35 seconds] 30 seconds (05/31/24 9:40 AM) RBC [4.40-5.60 M/uL] 4.07 M/uL *LOW* (06/02/24 4:11 AM) 4.51 M/uL (06/01/24 4:55 PM) 4.17 M/uL *LOW* (06/01/24 3:10 AM) ACT (Celite), POC [74-125 seconds] 324 seconds *HI* (05/30/24 12:26 PM) 324 seconds *HI* (05/30/24 11:53 AM) 328 seconds *HI* (05/30/24 11:27 AM) T Bili [0.0-1.2 mg/dL] REQUEST CREDITED mg/dL 10 (05/31/24 9:21 AM) 0.6 mg/dL (05/31/24 6:19 AM) Prot [6.4-8.3 g/dL] REQUEST CREDITED g/d L 11 (05/31/24 9:21 AM) 7.2 g/dL (05/31/24 6:19 AM) WBC [4.0-10.4 K/uL] 8.85 K/uL (06/02/24 4:11 AM) 9.01 K/uL (06/01/24 4:55 PM) 8.65 K/uL (06/01/24 3:10 AM) 1Result Comment: Lab orders combined with other orders received on the same specimen. ORDERS COMBINED UNDER ACC S61650 2Result Comment: Low levels of ALKP may indicate a deficiency in zinc, magnesium, or malnutritionbutcan also be an indicator of a rare genetic disease hypophosphatasia (HPP). 3Result Comment: Lab orders combined with other orders received on the same specimen. ORDERS COMBINED UNDER ACC A59028 4Result Comment: Lab orders combined with other orders received on the same specimen. ORDERS COMBINED UNDER ACC E40415 5Result Comment: Lab orders combined with other orders received on the same specimen. ORDERS COMBINED UNDER ACC M86886 6Result Comment: ADA recommendation for FASTING Serum/Plasma Glucose: Normal: 70-100 mg/dL Prediabetes: 100-125 mg/dL Diabetes: 126 mg/dL or higher 7Result Comment: ADA recommendation for FASTING Serum/Plasma Glucose: Normal: 70-100 mg/dL Prediabetes: 100-125 mg/dL Diabetes: 126 mg/dL or higher 8Result Comment: ADA recommendation for FASTING Serum/Plasma Glucose: Normal: 70-100 mg/dL Prediabetes: 100-125 mg/dL Diabetes: 126 mg/dL or higher 9Result Comment: Suggested therapeutic range for low-intensity Coumadin therapy for venous thromboembolism is INR 2.0-3.0 (ex: atrial fibrillation, history of TIA/stroke). For high risk patients, the suggested therapeutic range is INR 2.5-3.5 (ex: mechanical prosthetic valves). 10Result Comment: Lab orders combined with other orders received on the same specimen. ORDERS COMBINED UNDER ACC O57900 11Result Comment: Lab orders combined with other orders received on the same specimen. ORDERS COMBINED UNDER ACC O37363 Radiology Reports * Exam Date Time Procedure Performing Provider Status 06/01/24 5:26 AM XR Chest 1 View Cielo Ramirez N; Final Notes: (XR Chest 1 View) Reason For Exam: evaluate atelectasis, pulmonary edema XR Chest 1 View EXAMINATION: XR Chest 1 View CLINICAL HISTORY: evaluate atelectasis, pulmonary edema COMPARISON: Comparison with prior imaging, most recent 05/31/2024 FINDINGS: AICD/pacemaker. Unchanged cardiopericardial silhouette. Normal pulmonary vascularity. Hypoinflation. Improved interstitial opacities. Streaky bibasal atelectasis. Small left pleural effusion may be present. No pneumothorax. Unchanged elevation of the left hemidiaphragm. No acute osseous abnormality. IMPRESSION: 1. Improved pulmonary edema. 2. Persistent basal atelectasis. Workstation ID: [id number] Final Dictated by:MD Arias Rekha Dictated DT/TM:06/01/2024 8:19 Signed by:MD Arias Rekha Signed (Electronic Signature):06/01/2024 8:18 a * Exam Date Time Procedure Performing Provider Status 05/31/24 8:38 AM Echo TransTHORacic TTE Limited Ra damián Linares H; Final Notes: (Echo TransTHORacic TTE Limited) Reason For Exam: Evaluate effusion post ablation (small effusion noted on prior) Echo TransTHORacic TTE Limited Report Signatures Finalized by Dr. Dio Garcia MD on 05/31/2024 09:11 AM Promoted to Fellow by Dr. Aminata Ventura MD on 05/31/2024 09:03 AM PA Act 112: No-No further action needed Summary 1. Limited study to assess for post-procedural pericardial effusion. 2. Normal left ventricular size and systolic function with no regional wall motion abnormalities. 3. Estimated ejection fraction 50-55%. 4. Mild right ventricular dilation with normal function. 5. Normal biatrial size. 6. Limited valvular interrogation. 7. Prominent epicardial fat pad. Small pericardial effusion WITHOUT evidence of tamponade. 8. When compared [id number] to prior study 05/30/24, no significant changes noted. Patient Info Name: ZIGGY DEUTSCH Age: 79 years : 1945 Gender: Male Ht: 180 cm Wt: 109 kg BSA: 2.37 m2 HR: 80 bpm BP: 115 / 75 mmHg Heart Rhythm: Sinus Rhythm Technical Quality: Technically difficult study Exam Date: 05/31/2024 8:20 AM Exam Location: [place] [address] Patient Status: Inpatient Staff Ordering Physician: Chance Smith Senior Benefits Manager: Bailey Maldonado RDCS Attending Physician: Kirby Hernandez Study Info CPT 12376 - 74448 - 62831 - Indications - Evaluate effusion post ablation (small effusion noted on prior) I313 - Pericardial effusion (noninflammatory) Procedure(s) * A limited two-dimensional transthoracic echocardiogram was performed. * Color Doppler was performed. * Limited spectral Doppler was performed. Exam Type: Cardiac Basic Left Ventricle Normal left ventricular size and systolic function with no regional wall motion abnormalities. Estimated ejection fraction 50-55%. No left ventricular hypertrophy. Normal diastolic function. Right Ventricle Mild right ventricular dilation with normal function. Left Atrium Normal left atrial size. Right Atrium Normal right atrial size. Aortic Valve Aortic valve not well visualized on this limited study. Pulmonic Valve Pulmonic valve not well visualized. Mitral Valve Unremarkable mitral valve on 2D imaging; limited Doppler interrogation to assess for flow abnormalities. Tricuspid Valve Mild tricuspid regurgitation. Normal estimated pulmonary artery pressures, estimated PASP 19 mmHg. Pericardium/Pleural Prominent epicardial fat pad. Small pericardial effusion WITHOUT evidence of tamponade. Inferior Vena Cava Normal IVC size and inspiratory collapse. Aorta Normal aortic root. Mitral Valve Name Value Normal MV Doppler MV PHT 52 ms MV Diastolic Function MV E Peak Velocity 0.73 m/s <=0.50 MV A Peak Velocity 0.13 m/s MV E/A 5.76 <=0.80 MV Decel Time 178 ms Tricuspid Valve Name Value Normal TV Regurgitation Doppler TR Peak Velocity 2.01 m/s <=2.80 TR Peak Gradient 16 mmHg Estimated PAP/RSVP RA Pressure 3 mmHg <=5 PA Systolic Pressure 19 mmHg <40 Aorta Name Value Normal Ascending Aorta Sinus of Valsalva Diameter 3.5 cm 3.1-3.7 Sinus of Valsalva Index 1.49 cm/m2 1.50-1.90 Venous Name Value Normal IVC/SVC IVC Diameter (Insp 2D) 0.7 cm IVC Diameter (Exp 2D) 2.0 cm <=2.1 IVC Diameter Percent Change (2D) 65 % >=50 Ventricles Name Value Normal LV Dimensions 2D/MM IVS Diastolic Thickness (2D) 0.7 cm 0.6-1.0 LVID Diastole (2D) 4.5 cm 3.6-5.6 LVIW Diastolic Thickness (2D) 0.8 cm 0.6-1.0 LVID Systole (2D) 2.7 cm 2.5-4.0 LV Mass (2D Cubed) 103.26 g 88.00-224.00 LV Mass Index (2D Cubed) 0.00 g/cm2 0.00-0.01 Relative Wall Thickness (2D) 0.36 LV Fractional Shortening/Ejection Fraction 2D/MM LV Fractional Shortening (2D) 39 % 25-43 RV Dimensions 2D/MM RV Basal Diastolic Dimension 4.2 cm 2.5-4.1 TAPSE 2.2 cm >=1.7 Atria Name Value Normal LA Dimensions LA Area (4C) 21.1 cm2 LA Length (4C) 6.3 cm LA Area (2C) 21.6 cm2 LA Length (2C) 5.9 cm LA Volume (4C A-L) 59.65 ml LA Volume (2C A-L) 66.93 ml LA Volume (BP A-L) 65 ml 18-58 LA Volume Index (BP A-L) 27.54 ml/m2 <=34.00 Final Signed by:MD Garcia Ryan Signed (Electronic Signature):05/31/2024 8:20 a * Exam Date Time Procedure Performing Provider Status 05/31/24 5:38 AM XR Chest 1 View Walt Burger; Chelsi ontiveros Notes: (XR Chest 1 View) Reason For Exam: Respiratory distress XR Chest 1 View EXAMINATION: XR Chest 1 View CLINICAL HISTORY: Respiratory distress COMPARISON: None FINDINGS: Upright AP radiograph of the chest. Cardiac pacemaker/AICD over the left chest wall with leads terminating in the right atrium, right ventricle and coronary sinus. Enlarged cardiomediastinal silhouette. Normal pulmonary vasculature. Bibasilar airspace opacities, left greater than right. Hiatal hernia. No large pleural effusion. No pneumothorax. No acute osseousabnormality. IMPRESSION: Please see attending addendum 1. Cardiomegaly. 2. Bibasilar airspace opacities, left greater than right. Differentials include atelectasis versus pneumonia in appropriate clinical setting. Attending addendum 8:25 AM: Findings could represent pulmonary edema. Dr. Shad Hua is the dictating resident. Finalized reports status indicates that the attending has reviewed the images and report, and agrees with the interpretation. Preliminary reportstatus should be regarded as NOT interpreted by the attending radiologist. Workstation ID: [id number] Final Dictated by:Ronaldo Hua MD, Kamyar Dictated DT/TM:05/31/2024 8:25 Resident:Ronaldo Hua MD, Kamyar Signed by:MD Arias Rekha Signed (Electronic Signature):05/31/2024 8:24 a * Exam Date Time Procedure Performing Provider Status 05/30/24 3:44 PM Echo TransTHORacic TTE Limited Pooja Holman; Final Notes: (Echo TransTHORacic TTE Limited) Reason For Exam: s/p ablation, r/o effusion Echo TransTHORacic TTE Limited Report Signatures Finalized by Alfonso Garcia II, MD on 05/30/2024 05:03 PM Promoted to Fellow by Dr. Bert Javier DO on 05/30/2024 04:30 PM PA Act 112: No-No further action needed Summary 1. Normal left ventricular size with moderately reduced systolic function. 2. Estimated Ejection Fraction 30-35%. 3. Hypokinesis of the apex and akinesis of the inferior wall. 4. Normal right ventricular size and function. 5. Device lead in right sided chambers. 6. No significant valvular abnormalities. 7. Prominent epicardial fat pad with small pericardial effusion. 8. Limited study to evaluate for pericardial effusion status post ablation. 9. No prior studies for comparison. Patient Info Name: ZIGGY DEUTSCH Age: 79 years : 1945 Gender: Male Ht: 180 cm Wt: 109 kg BSA: 2.37 m2 HR: 60 bpm BP: 107 / 74 mmHg Heart Rhythm: Sinus Rhythm Technical Quality: Fair Exam Date: 05/30/2024 1:40 PM Exam Location: [facility] [id number] Patient Status: Outpatient Staff Ordering Physician: Hallie Purcell Senior Benefits Manager: Pooja Butler RDCS Attending Physician: Justus Major Study Info CPT 58444 - 48151 - 79722 - Indications I313 - Pericardial effusion (noninflammatory) Procedure(s) * A limited two-dimensional transthoracic echocardiogram was performed. * Color Doppler was performed. * Limited spectral Doppler was performed. Exam Type: Cardiac Basic Left Ventricle Normal left ventricular size with moderately reduced systolic function. Estimated Ejection Fraction 30-35%. Hypokinesis of the apex and akinesis of the inferior wall. No left ventricular hypertrophy. Inconclusive data to evaluate diastolic function. Abnormal septal motion consistent with bundle branch block. Right Ventricle Normal right ventricular size and function. Device lead noted in right ventricle. Left Atrium Normal left atrial size. Right Atrium Right atrium was not well visualized. Aortic Valve Mild aortic regurgitation. Aortic sclerosis without obvious visual stenosis. No spectral Doppler provided. Pulmonic Valve Unremarkable pulmonic valve. Mitral Valve Mild mitral valve regurgitation. Tricuspid Valve Mild tricuspid regurgitation. Estimated pulmonary arterial systolic pressure is 35 mmHg. Pericardium/Pleural Prominent epicardial fat pad with small pericardial effusion. Inferior Vena Cava Dilated IVC with normal inspiratory collapse. Aorta Normal aortic root. Mitral Valve Name Value Normal MV Diastolic Function MV E Peak Velocity 0.88 m/s <=0.50 Tricuspid Valve Name Value Normal TV Regurgitation Doppler TR Peak Velocity 2.60 m/s <=2.80 TR Peak Gradient 27 mmHg Estimated PAP/RSVP RA Pressure 8 mmHg <=5 PA Systolic Pressure 35 mmHg <40 Aorta Name Value Normal Ascending Aorta Sinus of Valsalva Diameter 3.3 cm 3.1-3.7 Sinus of Valsalva Index 1.39 cm/m2 1.50-1.90 Venous Name Value Normal IVC/SVC IVC Diameter (Insp 2D) 1.1 cm IVC Diameter (Exp 2D) 2.2 cm <=2.1 IVC Diameter Percent Change (2D) 49 % >=50 Ventricles Name Value Normal LV Dimensions 2D/MM IVS Diastolic Thickness (2D) 1.2 cm 0.6-1.0 LVID Diastole (2D) 5.4 cm 3.6-5.6 LVIW Diastolic Thickness (2D) 1.0 cm 0.6-1.0 LVID Systole (2D) 4.5 cm 2.5-4.0 LV Mass (2D Cubed) 237.70 g 88.00-224.00 LV Mass Index (2D Cubed) 0.01 g/cm2 0.00-0.01 Relative Wall Thickness (2D) 0.37 LV Fractional Shortening/Ejection Fraction 2D/MM LV Fractional Shortening (2D) 18 % 25-43 Atria Name Value Normal LA Dimensions LA Area (4C) 17.3 cm2 LA Length (4C) 6.2 cm LA Area (2C) 16.8 cm2 LA Length (2C) 5.9 cm LA Volume (4C A-L) 41.19 ml LA Volume (2C A-L) 40.71 ml LA Volume (BP A-L) 42 ml 18-58 LA Volume Index (BP A-L) 17.67 ml/m2 <=34.00 Final Signed by:MD Radha, Alfonso Galicia Signed (Electronic Signature):05/30/2024 1:40 p Vital Signs Most recent to oldest [Reference Range]: 1 2 3 Height 180.34 cm (05/30/24 8:15 AM) Patient Weight 108 kg (06/02/24 6:00 AM) 108.4 kg (06/01/24 5:00 AM) 108.9 kg (05/31/24 9:30 AM) Body Mass Index 33.79 kg/m2 (05/30/24 8:15 AM) Temperature [36.5-37.9 DegC] 36.3 DegC *LOW* (06/02/24 8:45 AM) 36.4 DegC *LOW* (06/02/24 4:00 AM) 36.5 DegC (06/02/24 12:00 AM) Heart Rate 81 bpm (06/02/24 8:45 AM) 90 bpm (06/02/24 4:00 AM) 80 bpm (06/02/24 12:00 AM) Respiratory Rate 18 br/min (06/02/24 8:45 AM) 16 br/min (06/02/24 4:00 AM) 22 br/min (06/02/24 12:00 AM) Blood Pressure 136/75mmHg (06/02/24 8:45 AM) 131/80mmHg (06/02/24 4:00 AM) 124/84mmHg (06/02/24 12:00 AM) Mean Blood Pressure 88 mmHg (06/02/24 8:45 AM) 97 mmHg (06/02/24 4:00 AM) 91 mmHg (06/02/24 12:00 AM) Cuff Pulse Pressure 61 mmHg (06/02/24 8:45 AM) 51 mmHg (06/02/24 4:00 AM) 40 mmHg (06/02/24 12:00 AM) BP Location # 1 Left Arm (06/02/24 8:45 AM) Left Arm, Non-invasive (06/02/24 4:00 AM) Left Arm, Non-invasive (06/02/24 12:00 AM) Social History Social History Type Response Tobacco Current every day sm oker, Cigarettes, 10 per day. 55 year(s). Started age 16 Years. 1 Smoking Status Former Smoker, quit > 1 yr Sex Male Sex Representation Male (finding) 1quit July 05, 1992 EKG study * Contributor_system, [id number]: VERIFY, PERFORM Event Display: EKG Authored Date: [id number] Please click on link to see image. * Contributor_system, [email or web address]: VERIFY, PERFORM Event Display: EKG Authored Date: [id number] Please click on link to see image. History and physical note * DO Tran Vincent A: MODIFY DO Tran Vincent A: MODIFY, MODIFY, PERFORM Ivett LYNCH MD, Charles G: PERFORM, MODIFY Ivett LYNCH MD, Charles G: MODIFY, MODIFY Ivett LYNCH MD, Nav [place]: MODIFY Event Display: H&P Authored Date: [id number] ACUTE CARDIOLOGY HISTORY AND PHYSICAL Name: ZIGGY DEUTSCH Patient Number: [id number] : 1945 Date of Service: 06/01/2024 Surgical Hospital Day/Procedure: POD#:2 - EP study/ablation- Afib/AT Chief Complaint: s/p AT ablation History of Present Illness: Mr. Ziggy Deutsch is a 79-year-old male with a medical history significant for coronary artery disease, status post PCI to the RCA on 11/19/2010; heart failure with reduced ejection fraction (last EF 30%), status post APPLICATIONS DEVELOPMENT ANALYST-D implantation in 2014; prior DVTs and PE; and paroxysmal atrial fibrillation onEliquis. He was recently diagnosed with atrial tachycardia by device interrogation for which he underwent admission for ablation. The patient was initially referred from [facility] after failed attempts at rhythm control with amiodarone. During his most recent clinic visit, he was in atrial tachycardia, resulting in reduced biventricular pacing. He was evaluated by Dr. Major with plan for ablation. The patient presentedon 05/30/24 and underwent a successful ablation of left macro-reentrant atrial tachycardia. Post-ablation echocardiogram revealed a normal LV size with moderately reduced systolic function (LVEF 30-35%), a prominent epicardial fat pad, and a small pericardial effusion. In the operations research group manager at 4:30 AM, the patient experienced respiratory distress after not wearing hishome BiPAP. He also did not receive his home inhalers. Upon evaluation at the bedside, he was tachypneic with a respiratory rate in the 30s. A stat chest X-ray showed concerns for atelectasis, volumeoverload, and possible pneumonia. Given his severe ROSE (home CPAP settin/9), BiPAP was ordered, and the respiratory team was paged. The patient received 1 mg IV Bumex at 5:36 AM and nebulizer treatments, which improved his respiratory status. However, due to persistent respiratory distress andtachypnea, the ICU was consulted, and the patient was admitted to their service for further management. His respiratory status rapidly improved with use of inhalers, BiPAP, and IV diuresis. His subsequent CXR demonstrated improved pulmonary edema. He was weaned quickly to room air and has been stable on the morning of 06/01, prompting downgrade from the ICU. On bedside evaluation, patient feels much better post- ablation. His only complain is abdominal distention which he attributes to constipation following his ablation. He does not complain of shortness of breath. Per nursing, telemetry has been difficult to interpret due to patient's resting tremor causing significant artifact. Review Of Systems: A 14-point review of systems is negative except for what is mentioned above Past Medical History: as above Procedure History Procedure Procedure Date Comments Pacermaker History of cardiac catheterization History of cholecystectomy History of colonoscopy - with polypectomy Cystoscopy History of bilateral cataract extraction Chest X-ray 02/27/2022 - Impression: Cardiomegaly is noted. No evidence of airspace disease. Interstitial thickening is noted Plain X-ray of left hip 02/20/2022 - Impression:Degenerative changes without evidence of acute abnormality Plain X-ray of left shoulder 02/20/2022 - No fracture is seen. Degenerative changes are noted. Ankle X-ray RT min 3V routine, X-Ray foot RT min 3V routine 03/21/2021 - Impression: Moderate anterolateral soft tissue swelling of the ankle. No acute fracture or dislocation. Colonoscopy 03/06/2020 - recommendations: repeat colonoscopy in 5 years. - Final Diagnosis: Colon, hepatic flexure polypectomy: Tubular adenoma. Negative for high grade dysplasia. - Impression: One 3 mm polyp at the hepatic flexure, removed with a cold biopsy forceps. Resected and retrieved. Diverticulosis in the sigmoid colon. Full sleep study 06/15/2019 - Split polysomnograph:Severe complex sleep anpean corrected with BiPAP 11/01. Cystoscopy 08/05/2017 - Urinary Bladder (transurethral resection): 1. Mild & focal chronic cystitis, squamous metaplasia, focal cystitis glandularis cystica, & hypertrophy of muscularis propria muscle. 2. Dysplasia & carcinoma NOT seen. Chest X-ray 07/23/2017 - Cardiomegaly. No active disease in chest. KUB X-ray 07/12/2017 - 1. Unchanged right renal calculus. CT of head 06/04/2017 - This study has reverted to a baseline appearance with no intracranial acute abnormality at this time. CT of head 05/08/2017 - Continued improvement in appearance of small focus of slightly increased density right superior parietal lobe. No new or interval process. No evidence of progressive hemorrhage. RELIEVE BLADDER CONTRACTURE 05/07/2017 Chest x-ray 05/06/2017 - Interval development of asymmetric pulmonary edema right greater than left. Small right pleural effusion. CT head w/o contrast 05/05/2017 - 1. The previously identified focus of increased attenuation within the right parietal lobe is less conspicuous on the current study. This likely represents a resolving trace subarachnoid hemorrhage. 2. No new findings are evident. Chest x-ray 02/15/2017 - 1. mild cardiomegaly2. bibasilar atelectasisi3. no evidenc of failure. no evidence of lobar consolidation Chest x-ray 12/25/2016 - Hiatal hernia, and bibasal atelectasis/scarring. No acute findings. Plain X-ray lumbar spine normal 10/08/2016 - Moderate degenerative change. No acute bony abnormality. X-ray of thoracic spine 10/08/2016 - Moderate multilevel degenerative change. No acute fractures or traumatic subluxations are visualized on conventional radiographic imaging. Carotid artery doppler normal 09/02/2016 - no hemodynamically significant stenosisi seen within the carotid arteries. CT head w/o contrast 09/01/2016 - 1. no acute intracranial hemorrhage or mass effect2. slight asymmetric decreaswed density of the right caudate head. this is probably artifiactual although a subacute to acute infarct could appear similar Chest x-ray 09/01/2016 - minimal infitravitve hcange left base. mild stable cardiomegaly CT angiogram of head, neck and thorax 09/01/2016 - no significant stenosi, occlusion, dissecton identified within the cartid or vertebral arteries. Mild focal narrowing within the mid right subclavian artery Echocardiogram 09/01/2016 - 1. normal LVsize. Mild concentric LVH2. mild LV dysfuction. LVEF 45-50% inferior wall akinesis. Posterior wall severe hypokinesis3. RN not well visualized. Grossly normal size and fucntion4. Grade II diastolic dysfunction5. No significnat vavular pathology6. compared with prior study on 06/13/15 no significant changes. KUB X-ray 07/10/2016 - 6 mm right renal stone. no definite left renal or ureteral calculi Endoscopy 05/08/2016 - normal esophagusnormal stomachnormal examined duodenumno specimens colletcted Chest x-ray 02/18/2016 - no acute findings. no change in appearance of the chest. Punch biopsy 01/22/2016 - right thigh Soft tissue X-ray face 01/20/2016 - No fractures within the visualized osseous structures. Cervical spine X-ray 01/20/2016 - Moderate multilevel degenerative change. No acute fractures or subluxations are visualized on conventional radiographic imaging. Gross pathology 11/21/2015 - gallbladder mucosa wihtout significant inflammation. no calculi identifed CT of abdomen and pelvis 11/20/2015 - 1. No evidence of celiac, superior mesenteric artery or renal artery stenosis.2. No evidence of bowel obstruction. No evidence of free air. Normal appendix. Diverticulosis. No evidence of acute periverticular inflammatory change.3. Recurrent right inguinal hernia.4. Hiatal hernia.5. Emphysema with dependent lower lobe traction bronchiecatasis, and groundglass opacity. Cholecystectomy 11/20/2015 Nuclear medicine imaging procedure 11/18/2015 - 1. no evidenc for cystic duct obstruction2. slightly delayed visualization of the small bowel. this could be normal variant3. abnormally low gallbladder ejection fractioin of 19%. this could represent biliary dyskinesia or possibly chronic cholecystitis within the delayed visualization of the small bowel X-ray of left foot 10/09/2015 - 1. No acute fracture or dislocation of the left foot.2. Moderate arthritis within the left midfoot3. No change in the 2.7cm lucent lesion within the posterior calcaneus since exam of 07/18/14. This is indeterminate although likely benign Examination of eye 08/05/2015 Chest x-ray 06/12/2015 - no significant change compared to the prior study. no acute process Doppler ultrasonography of arterial inflow and venous outflow of abdominal, pelvic and retroperitoneal organs 06/12/2015 - no DVT within the right lower extremetiy Chest x-ray 02/19/2015 - Cardiomegaly and blunting of the posterior costophrenic angles. No evidence of pneumothorax status post pacemaker placement Cataracts- right eye 11/07/2014 - phacoemusificaiton of right cataract with posterior chamber lens implant Colonoscopy 09/10/2014 - Repeat in 5 years. - Diverticulosis in sigmoid colon.Non bleeding internal hemorrhoids. X-ray of left foot 07/18/2014 - Heel spur. Mild bunion deformity distal first metatarsal US scan of abdominal aorta 04/20/2014 - No evidence of aneurysm. Examination of eye 03/15/2014 CT of chest 11/09/2013 colonoscopy 08/11/2012 echocardiogram[facility] 08/11/2012 shoulder 08/02/2012 - left xr mild osteoarthritic changes shoulder 08/02/2012 - right xr osteoarthritic more pronounced than left colonoscopy-[facility] 08/01/2012 - 5 POLYPS REMOVED, DIVERICULOSIS Defibrillator 04/26/2011 Stent 11/19/2010 Khari fundoplication 2002 Macular hole 1994 - Left eye, macular hole closed Foot surgery 1993 - Surgery left foot x 2 in 2003 - Surgery on right foot Hernia 04/26/1986 - 1977, 1986 Vasectomy 1974 FAMILY HISTORY: Father: Cancer; High Blood Pressure Mother: Cancer; Heart attack; Lung disease.. SOCIAL HISTORY: Alcohol Risk Assessment: Denies Alcohol Use; Details: Past; Comment(s): quit in 1990 Employment/School Details: Retired, Previous employment/school: former [employer], 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. Exercise Risk Assessment: Occasional exercise; Details: Exercise frequency: 5-6 times/week. Self assessment:Fair condition. Exercise type: Walking.; Comment(s): limited 2/2 cardiac problems Home/Environment Details: Lives with Spouse. Living situation: Home/Independent. Nutrition/Health Risk Assessment: Low Risk; Details: Type of diet: balanced, diverticulitis diet. Calorie restricted, low salt, Caffeine intake amount: very rarely. Wants to lose weight: Yes. Sleeping concerns: No. Feels highly stressed: No. Substance Abuse Risk Assessment: Denies Substance Abuse Tobacco Details: Current every day smoker, Cigarettes, 10 per day. 55 year(s). Started age 16 Years.; Comment(s): quit July 05, 1992 Allergies and Sensitivities: lidocaine(rash) hydrocodone(Gi distress) oxycodone(GI distress) Bee sting(breathing) penicillins(breathing/rash) Current Home Meds: (Last Updated 05/30 15:35) EPInephrine (epinephrine 0.3 mg injectable kit) 0.3 mg IM ONCE PRN: as needed for anaphylaxis albuterol (ProAir HFA 90 mcg/inh inhalation aerosol) 2 puff inhaled PRN: as needed for wheezing apixaban (Eliquis 5 mg oral tablet) 5 mg PO bid aspirin (Aspirin Low Dose) 81 mg PO Daily buPROPion (buPROPion 100 mg oral tablet) 100 mg PO bid bumetanide (bumetanide 1 mg oral tablet) 1 mg PO Daily carvedilol (carvedilol 12.5 mg oral tablet) 2 tabs in AM, 1 tab in pm cetirizine docusate (Doculase 100 mg oral capsule) 1 cap PO bid PRN: as needed for constipation doxycycline (doxycycline hyclate 100 mg oral capsule) 100 mg PO bid doxycycline (doxycycline hyclate 100 mg oral tablet) 100 mg PO bid take with food finasteride (finasteride 5 mg oral tablet) 1 tab PO Daily metoclopramide (metoclopramide 5 mg oral tablet) 10 mg PO q8h mometasone nasal (mometasone nasal 50 mcg/inh spray) 2 spray intranasal Daily PRN: as needed for allergy symptoms nystatin topical (nystatin 100,000 units/g topical powder) ocular lubricant (Refresh) 1 drop both eyes bid olodaterol-tiotropium (Stiolto Respimat 10 ACT 2.5 mcg-2.5 mcg/inh inhalation aerosol) 2 inh inhaled Daily oxyCODONE (oxyCODONE 10 mg oral tablet) 10 mg PO q12h pantoprazole (pantoprazole 40 mg oral delayed release tablet) 1 tab PO BID while taking alleve for [facility] painFA[phone] potassium chloride (Potassium Chloride (Vld-Uohn-Rio M20)) 20 mEq PO bid pramipexole (pramipexole 0.375 mg oral tablet, extended release) rosuvastatin (rosuvastatin 20 mg oral tablet) 20 mg PO Daily senna (senna 8.6 mg oral tablet) 8.6 mg PO bid PRN: as needed for constipation unknown medication (aluminum nitrate) valsartan 51 mg 1 twice daily Vitals: Last Updated 06/01/24 11:00 Weights: Last Updated 06/01/24 05:00 Date Temp Pulse BP RR SpO2 FIO2 Date Wt(kg) Wt(lb) 06/01 11:00 80 112/79 23 90 06/01 05:00 108.4 238 06/01 10:00 80 108/77 20 91 05/31 09:30 108.9 240 06/01 09:00 85 119/73 31 91 05/30 08:16 109.9 242 02 08:00 36.9 80 119/81 20 91 1.0L/m 02 08:16 109.9 242 06/01 07:00 81 114/72 28 96 3.0L/m 24 Hr Tmax: 37.1 at 06/01 04:00 Initial Wt: 05/30 109.9 kg 242 lb Physical Exam: GEN: well-developed, NAD. HEENT: Mild JVD to estimated 8cm. NC/AT, PERRL, MMM, good dentition. CV: RRR, normal S1/S2, no murmurs, rubs, or gallops; Pulses 2+ in distal extremities bilaterally. LUNGS: CTAB, no wheezes, rhonchi, or crackles ABD: Soft, NT/ND, no masses or organomegaly. SKIN: Warm, well perfused. No skin rashes or abnormal lesions. MSK: No deformities. EXT: No clubbing, cyanosis, or edema. NEURO: AOx3. Resting tremor PSYCH: Good Judgment. Normal memory, mood, and affect. Most Recent 24 Hour CBC/BMP Results CBC: on 06/01/2024 03:10 Nephrology Panel: on 06/01/2024 03:10 12.2 138 103 31 8.7 208 124 37.5 4.2 21 1.19 Ca = 8.8 Most Recent 24 Hour Labs: 06/01/24 0408 Estimated CrCl 63.46 06/01/24 0310 MCH 29.3 MCHC 32.5 MCV 89.9 RBC 4.17 L MPV 11.2 RDW 14.3 H Anion Gap 14 BUN 31 H Ca 8.8 Cl- 103 HCO3 21 L Cret 1.19 Glu 124 H K 4.2 Mg 2.0 Na 138 PO4 3.1 eGFR CKD-EPI 62 Alb 3.6 Studies: Pending or Completed in the Last 24 Hours TTE 05/31/24 Summary 1. Limited study to assess for post-procedural pericardial effusion. 2. Normal left ventricular size and systolic function with no regional wall motion abnormalities. 3. Estimated ejection fraction 50-55%. 4. Mild right ventricular dilation with normal function. 5. Normal biatrial size. 6. Limited valvular interrogation. 7. Prominent epicardial fat pad. Small pericardial effusion WITHOUT evidence of tamponade. 8. When compared [id number] to prior study 05/30/24, no significant changes noted. ASSESSMENT/PLAN: Mr. Ziggy Deutsch is a 79-year-old male with a medical history significant for coronary artery disease, status post PCI to the RCA on 11/19/2010, COPD, heart failure with reduced ejection fraction (lastEF 30%), status post APPLICATIONS DEVELOPMENT ANALYST-D implantation in 2014; prior DVTs and PE; and paroxysmal atrial fibrillation on Eliquis admit following an AT ablation on 05/30/24 with subsequent respiratory distress in the post-procedural period. Atrial Tachycardia s/p Left Macro-reentrant Ablation 05/30/24 - History of failed rhythm control with amiodarone - Underwent ablation of left macro-reentrant atrial tachycardia on 05/30/24 - No subsequent evidence of tachyarrhythmia post-ablation, but telemetry difficult to interpret with resting muscle tremor Plan: - Continue home Carvedilol - EP follow-up 09/20/24 Acute on Chronic AHHRF, resolved, in setting of HFimpEF - In the operations research group manager on 05/31, experienced respiratory distress after not wearing his home BiPAP orusing home inhalers - His respiratory status and chest imaging rapidly improved with use of inhalers, BiPAP, and IV diuresis - History of severe ROSE (home CPAP settin/9) - Weaned quickly off significant respiratory support and on RA as of 06/01 - Evidence of volume overload, likely some component of chronic high filling pressures, on bedside examination - TTE 05/31 with LVEF 50-55% Plan: - Repeat IV Bumex 1mg with expected repeat dose in AM on 06/02 - Continue home Carvedilol as above - Continue home inhalers - Continue nightly BiPAP on home settings Constipation - Likely post-sedation - s/p Senna in the HVICU Plan - Consider dosage of Miralax +/- additional Senna Chronic Medical Conditions: # CAD: home statin, anti-plt # DVT/PE: continue home Eliquis # Depression: home Buproprion # COPD: home inhalers # ROSE: continue nightly BiPAP # GERD. continue PPI Pantoprazole and home Metoclopramide 10 mg PO q8h # BPH: home Finasteride Full Code I personally reviewed the patients chart, including vital signs, lab results and all pertinent diagnostic imaging. I personallyinterviewed and examinedthe patient, and discussed the care plan at bedside. I agree with the information input by the housestaff, and edited the note as necessary, with the following additions: The patient feels better today. He is not requiring any oxygen, but still has some evidence of volume overload, including peripheral edema, and bibasilar crackles. But not to continue IV diuresis fortoday and tomorrow. I expect to be able to be discharged safely within the next 24 to 48 hours. Charlie Tran DO, [facility] Manager Emergency Departmentclassifier operator Electronic Signature on File Electronically Reviewed/Signed by: Nav Root MD Author Signature Dt/Tm:06/01/2024 02:43 PM Resident [facility] [place] Electronically Reviewed/Signed by: Charlie Tran DO Cosigner Signature Dt/Tm: 06/01/2024 03:03PM Cardiology [facility] * MD Pedrito, Justus Tariq: MODIFY MD Pedrito, Justus Tariq: MODIFY MD Sarahi, Pa Leyva: PERFORM, MODIFY MD Sarahi, Pa N: MODIFY, MODIFY MD Sarahi, Pa N: MODIFY, MODIFY MD Sarahi, Pa N: MODIFY, MODIFY MD Sarahi, Pa Leyva: MODIFY Event Display: H&P Authored Date: HISTORY AND PHYSICAL Name: ZIGGY DEUTSCH Patient Number: [id number] : 1945 Date of Service: 05/31/2024 Surgical Hospital Day/Procedure: POD#:1 - EP study/ablation- Afib/AT Chief Complaint: _Respiratory distress History of Present Illness: _Mr. Ziggy Deutsch is a 79-year-old male with a medical history significant for coronary artery disease, status post PCI to the RCA on 11/19/2010; heart failure with reduced ejection fraction (last EF 30%), status post APPLICATIONS DEVELOPMENT ANALYST-D implantation in 2014; prior DVTs and PE; and paroxysmal atrial fibrillation on Eliquis. He was recently diagnosed with atrial tachycardia by device interrogation and presents for ablation. The patient was initially referred from [facility] after failed attempts at rhythm control with amiodarone. During his most recent clinic visit, he was in atrial tachycardia, resulting in reduced biventricular pacing. He was evaluated by Dr. Major on , and the plan was ablation. The patient presented on and underwent a successful ablation of left macro-reentrant atrial tachycardia. Post-ablation echocardiogram revealed a normal LV size with moderately reduced systolic function (LVEF 30-35%), a prominent epicardial fat pad, and a small pericardial effusion. In the operations research group manager at 4:30 AM, the patient experienced respiratory distress after not wearing hishome BiPAP. He also did not receive his home inhalers. Upon evaluation at the bedside, he was tachypneic with a respiratory rate in the 30s. A stat chest X-ray showed concerns for atelectasis, volumeoverload, and possible pneumonia. Given his severe ROSE (home CPAP settin/9), BiPAP was ordered, and the respiratory team was paged. The patient received 1 mg IV Bumex at 5:36 AM and nebulizer treatments, which improved his respiratory status. However, due to persistent respiratory distress andtachypnea, the ICU was consulted, and the patient was admitted to their service for further management. Medications Discussed: Albuterol Apixaban 5 mg twice daily Aspirin 81 mg once daily Bumex 1 mg once daily Bupropion 100 mg twice daily Carvedilol 12.5 mg twice daily Finasteride Metoclopramide Olodaterol/Tiotropium Oxycodone 10 mg daily Pantoprazole 40 mg daily Potassium chloride 20 mEq twice daily Pramipexole 0.375 mg once daily Rosuvastatin 20 mg once daily Valsartan Review Of Systems: _14 points review of systems negative except as above in the HPI Past Medical History: _ Procedure History Procedure Procedure Date Comments Lindarmaker History of cardiac catheterization History of cholecystectomy History of colonoscopy - with polypectomy Cystoscopy History of bilateral cataract extraction Chest X-ray 02/27/2022 - Impression: Cardiomegaly is noted. No evidence of airspace disease. Interstitial thickening is noted Plain X-ray of left hip 02/20/2022 - Impression:Degenerative changes without evidence of acute abnormality Plain X-ray of left shoulder 02/20/2022 - No fracture is seen. Degenerative changes are noted. Ankle X-ray RT min 3V routine, X-Ray foot RT min 3V routine 03/21/2021 - Impression: Moderate anterolateral soft tissue swelling of the ankle. No acute fracture or dislocation. Colonoscopy 03/06/2020 - recommendations: repeat colonoscopy in 5 years. - Final Diagnosis: Colon, hepatic flexure polypectomy: Tubular adenoma. Negative for high grade dysplasia. - Impression: One 3 mm polyp at the hepatic flexure, removed with a cold biopsy forceps. Resected and retrieved. Diverticulosis in the sigmoid colon. Full sleep study 06/15/2019 - Split polysomnograph:Severe complex sleep anpean corrected with BiPAP 11/01. Cystoscopy 08/05/2017 - Urinary Bladder (transurethral resection): 1. Mild & focal chronic cystitis, squamous metaplasia, focal cystitis glandularis cystica, & hypertrophy of muscularis propria muscle. 2. Dysplasia & carcinoma NOT seen. Chest X-ray 07/23/2017 - Cardiomegaly. No active disease in chest. KUB X-ray 07/12/2017 - 1. Unchanged right renal calculus. CT of head 06/04/2017 - This study has reverted to a baseline appearance with no intracranial acute abnormality at this time. CT of head 05/08/2017 - Continued improvement in appearance of small focus of slightly increased density right superior parietal lobe. No new or interval process. No evidence of progressive hemorrhage. RELIEVE BLADDER CONTRACTURE 05/07/2017 Chest x-ray 05/06/2017 - Interval development of asymmetric pulmonary edema right greater than left. Small right pleural effusion. CT head w/o contrast 05/05/2017 - 1. The previously identified focus of increased attenuation within the right parietal lobe is less conspicuous on the current study. This likely represents a resolving trace subarachnoid hemorrhage. 2. No new findings are evident. Chest x-ray 02/15/2017 - 1. mild cardiomegaly2. bibasilar atelectasisi3. no evidenc of failure. no evidence of lobar consolidation Chest x-ray 12/25/2016 - Hiatal hernia, and bibasal atelectasis/scarring. No acute findings. Plain X-ray lumbar spine normal 10/08/2016 - Moderate degenerative change. No acute bony abnormality. X-ray of thoracic spine 10/08/2016 - Moderate multilevel degenerative change. No acute fractures or traumatic subluxations are visualized on conventional radiographic imaging. Carotid artery doppler normal 09/02/2016 - no hemodynamically significant stenosisi seen within the carotid arteries. CT head w/o contrast 09/01/2016 - 1. no acute intracranial hemorrhage or mass effect2. slight asymmetric decreaswed density of the right caudate head. this is probably artifiactual although a subacute to acute infarct could appear similar Chest x-ray 09/01/2016 - minimal infitravitve hcange left base. mild stable cardiomegaly CT angiogram of head, neck and thorax 09/01/2016 - no significant stenosi, occlusion, dissecton identified within the cartid or vertebral arteries. Mild focal narrowing within the mid right subclavian artery Echocardiogram 09/01/2016 - 1. normal LVsize. Mild concentric LVH2. mild LV dysfuction. LVEF 45-50% inferior wall akinesis. Posterior wall severe hypokinesis3. RN not well visualized. Grossly normal size and fucntion4. Grade II diastolic dysfunction5. No significnat vavular pathology6. compared with prior study on 06/13/15 no significant changes. KUB X-ray 07/10/2016 - 6 mm right renal stone. no definite left renal or ureteral calculi Endoscopy 05/08/2016 - normal esophagusnormal stomachnormal examined duodenumno specimens colletcted Chest x-ray 02/18/2016 - no acute findings. no change in appearance of the chest. Punch biopsy 01/22/2016 - right thigh Soft tissue X-ray face 01/20/2016 - No fractures within the visualized osseous structures. Cervical spine X-ray 01/20/2016 - Moderate multilevel degenerative change. No acute fractures or subluxations are visualized on conventional radiographic imaging. Gross pathology 11/21/2015 - gallbladder mucosa wihtout significant inflammation. no calculi identifed CT of abdomen and pelvis 11/20/2015 - 1. No evidence of celiac, superior mesenteric artery or renal artery stenosis.2. No evidence of bowel obstruction. No evidence of free air. Normal appendix. Diverticulosis. No evidence of acute periverticular inflammatory change.3. Recurrent right inguinal hernia.4. Hiatal hernia.5. Emphysema with dependent lower lobe traction bronchiecatasis, and groundglass opacity. Cholecystectomy 11/20/2015 Nuclear medicine imaging procedure 11/18/2015 - 1. no evidenc for cystic duct obstruction2. slightly delayed visualization of the small bowel. this could be normal variant3. abnormally low gallbladder ejection fractioin of 19%. this could represent biliary dyskinesia or possibly chronic cholecystitis within the delayed visualization of the small bowel X-ray of left foot 10/09/2015 - 1. No acute fracture or dislocation of the left foot.2. Moderate arthritis within the left midfoot3. No change in the 2.7cm lucent lesion within the posterior calcaneus since exam of 07/18/14. This is indeterminate although likely benign Examination of eye 08/05/2015 Chest x-ray 06/12/2015 - no significant change compared to the prior study. no acute process Doppler ultrasonography of arterial inflow and venous outflow of abdominal, pelvic and retroperitoneal organs 06/12/2015 - no DVT within the right lower extremetiy Chest x-ray 02/19/2015 - Cardiomegaly and blunting of the posterior costophrenic angles. No evidence of pneumothorax status post pacemaker placement Cataracts- right eye 11/07/2014 - phacoemusificaiton of right cataract with posterior chamber lens implant Colonoscopy 09/10/2014 - Repeat in 5 years. - Diverticulosis in sigmoid colon.Non bleeding internal hemorrhoids. X-ray of left foot 07/18/2014 - Heel spur. Mild bunion deformity distal first metatarsal US scan of abdominal aorta 04/20/2014 - No evidence of aneurysm. Examination of eye 03/15/2014 CT of chest 11/09/2013 colonoscopy 08/11/2012 echocardiogram-[facility] 08/11/2012 shoulder 08/02/2012 - left xr mild osteoarthritic changes shoulder 08/02/2012 - right xr osteoarthritic more pronounced than left colonoscopy-[facility] 08/01/2012 - 5 POLYPS REMOVED, DIVERICULOSIS Defibrillator 04/26/2011 Stent 11/19/2010 Khari fundoplication 2002 Macular hole 1994 - Left eye, macular hole closed Foot surgery 1993 - Surgery left foot x 2 in 2004 - Surgery on right foot Hernia 04/26/1986 - 1977, 1986 Vasectomy 1974 FAMILY HISTORY: Father: Cancer; High Blood Pressure Mother: Cancer; Heart attack; Lung disease.. SOCIAL HISTORY: Alcohol Risk Assessment: Denies Alcohol Use; Details: Past; Comment(s): quit in 1990 Employment/School Details: Retired, Previous employment/school: former [employer], 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. Exercise Risk Assessment: Occasional exercise; Details: Exercise frequency: 5-6 times/week. Self assessment:Fair condition. Exercise type: Walking.; Comment(s): limited 2/2 cardiac problems Home/Environment Details: Lives with Spouse. Living situation: Home/Independent. Nutrition/Health Risk Assessment: Low Risk; Details: Type of diet: balanced, diverticulitis diet. Calorie restricted, low salt, Caffeine intake amount: very rarely. Wants to lose weight: Yes. Sleeping concerns: No. Feels highly stressed: No. Substance Abuse Risk Assessment: Denies Substance Abuse Tobacco Details: Current every day smoker, Cigarettes, 10 per day. 55 year(s). Started age 16 Years.; Comment(s): quit July 05, 1992 SURGICAL HISTORY: Procedure History Procedure Procedure Date Comments Pacermaker History of cardiac catheterization History of cholecystectomy History of colonoscopy - with polypectomy Cystoscopy History of bilateral cataract extraction Chest X-ray 02/27/2022 - Impression: Cardiomegaly is noted. No evidence of airspace disease. Interstitial thickening is noted Plain X-ray of left hip 02/20/2022 - Impression:Degenerative changes without evidence of acute abnormality Plain X-ray of left shoulder 02/20/2022 - No fracture is seen. Degenerative changes are noted. Ankle X-ray RT min 3V routine, X-Ray foot RT min 3V routine 03/21/2021 - Impression: Moderate anterolateral soft tissue swelling of the ankle. No acute fracture or dislocation. Colonoscopy 03/06/2020 - recommendations: repeat colonoscopy in 5 years. - Final Diagnosis: Colon, hepatic flexure polypectomy: Tubular adenoma. Negative for high grade dysplasia. - Impression: One 3 mm polyp at the hepatic flexure, removed with a cold biopsy forceps. Resected and retrieved. Diverticulosis in the sigmoid colon. Full sleep study 06/15/2019 - Split polysomnograph:Severe complex sleep anpean corrected with BiPAP 11/01. Cystoscopy 08/05/2017 - Urinary Bladder (transurethral resection): 1. Mild & focal chronic cystitis, squamous metaplasia, focal cystitis glandularis cystica, & hypertrophy of muscularis propria muscle. 2. Dysplasia & carcinoma NOT seen. Chest X-ray 07/23/2017 - Cardiomegaly. No active disease in chest. KUB X-ray 07/12/2017 - 1. Unchanged right renal calculus. CT of head 06/04/2017 - This study has reverted to a baseline appearance with no intracranial acute abnormality at this time. CT of head 05/08/2017 - Continued improvement in appearance of small focus of slightly increased density right superior parietal lobe. No new or interval process. No evidence of progressive hemorrhage. RELIEVE BLADDER CONTRACTURE 05/07/2017 Chest x-ray 05/06/2017 - Interval development of asymmetric pulmonary edema right greater than left. Small right pleural effusion. CT head w/o contrast 05/05/2017 - 1. The previously identified focus of increased attenuation within the right parietal lobe is less conspicuous on the current study. This likely represents a resolving trace subarachnoid hemorrhage. 2. No new findings are evident. Chest x-ray 02/15/2017 - 1. mild cardiomegaly2. bibasilar atelectasisi3. no evidenc of failure. no evidence of lobar consolidation Chest x-ray 12/25/2016 - Hiatal hernia, and bibasal atelectasis/scarring. No acute findings. Plain X-ray lumbar spine normal 10/08/2016 - Moderate degenerative change. No acute bony abnormality. X-ray of thoracic spine 10/08/2016 - Moderate multilevel degenerative change. No acute fractures or traumatic subluxations are visualized on conventional radiographic imaging. Carotid artery doppler normal 09/02/2016 - no hemodynamically significant stenosisi seen within the carotid arteries. CT head w/o contrast 09/01/2016 - 1. no acute intracranial hemorrhage or mass effect2. slight asymmetric decreaswed density of the right caudate head. this is probably artifiactual although a subacute to acute infarct could appear similar Chest x-ray 09/01/2016 - minimal infitravitve hcange left base. mild stable cardiomegaly CT angiogram of head, neck and thorax 09/01/2016 - no significant stenosi, occlusion, dissecton identified within the cartid or vertebral arteries. Mild focal narrowing within the mid right subclavian artery Echocardiogram 09/01/2016 - 1. normal LVsize. Mild concentric LVH2. mild LV dysfuction. LVEF 45-50% inferior wall akinesis. Posterior wall severe hypokinesis3. RN not well visualized. Grossly normal size and fucntion4. Grade II diastolic dysfunction5. No significnat vavular pathology6. compared with prior study on 06/13/15 no significant changes. KUB X-ray 07/10/2016 - 6 mm right renal stone. no definite left renal or ureteral calculi Endoscopy 05/08/2016 - normal esophagusnormal stomachnormal examined duodenumno specimens colletcted Chest x-ray 02/18/2016 - no acute findings. no change in appearance of the chest. Punch biopsy 01/22/2016 - right thigh Soft tissue X-ray face 01/20/2016 - No fractures within the visualized osseous structures. Cervical spine X-ray 01/20/2016 - Moderate multilevel degenerative change. No acute fractures or subluxations are visualized on conventional radiographic imaging. Gross pathology 11/21/2015 - gallbladder mucosa wihtout significant inflammation. no calculi identifed CT of abdomen and pelvis 11/20/2015 - 1. No evidence of celiac, superior mesenteric artery or renal artery stenosis.2. No evidence of bowel obstruction. No evidence of free air. Normal appendix. Diverticulosis. No evidence of acute periverticular inflammatory change.3. Recurrent right inguinal hernia.4. Hiatal hernia.5. Emphysema with dependent lower lobe traction bronchiecatasis, and groundglass opacity. Cholecystectomy 11/20/2015 Nuclear medicine imaging procedure 11/18/2015 - 1. no evidenc for cystic duct obstruction2. slightly delayed visualization of the small bowel. this could be normal variant3. abnormally low gallbladder ejection fractioin of 19%. this could represent biliary dyskinesia or possibly chronic cholecystitis within the delayed visualization of the small bowel X-ray of left foot 10/09/2015 - 1. No acute fracture or dislocation of the left foot.2. Moderate arthritis within the left midfoot3. No change in the 2.7cm lucent lesion within the posterior calcaneus since exam of 07/18/14. This is indeterminate although likely benign Examination of eye 08/05/2015 Chest x-ray 06/12/2015 - no significant change compared to the prior study. no acute process Doppler ultrasonography of arterial inflow and venous outflow of abdominal, pelvic and retroperitoneal organs 06/12/2015 - no DVT within the right lower extremetiy Chest x-ray 02/19/2015 - Cardiomegaly and blunting of the posterior costophrenic angles. No evidence of pneumothorax status post pacemaker placement Cataracts- right eye 11/07/2014 - phacoemusificaiton of right cataract with posterior chamber lens implant Colonoscopy 09/10/2014 - Repeat in 5 years. - Diverticulosis in sigmoid colon.Non bleeding internal hemorrhoids. X-ray of left foot 07/18/2014 - Heel spur. Mild bunion deformity distal first metatarsal US scan of abdominal aorta 04/20/2014 - No evidence of aneurysm. Examination of eye 03/15/2014 CT of chest 11/09/2013 colonoscopy 08/11/2012 echocardiogram-[facility] 08/11/2012 shoulder 08/02/2012 - left xr mild osteoarthritic changes shoulder 08/02/2012 - right xr osteoarthritic more pronounced than left colonoscopy-[facility] 08/01/2012 - 5 POLYPS REMOVED, DIVERICULOSIS Defibrillator 04/26/2011 Stent 11/19/2010 Khari fundoplication 2002 Macular hole 1994 - Left eye, macular hole closed Foot surgery 1993 - Surgery left foot x 2 in 2003 - Surgery on right foot Hernia 04/26/1986 - 1977, 1986 Vasectomy 1974 Allergies and Sensitivities: lidocaine(rash) hydrocodone(Gi distress) oxycodone(GI distress) Bee sting(breathing) penicillins(breathing/rash) Current Home Meds: (Last Updated 05/30 15:35) EPInephrine (epinephrine 0.3 mg injectable kit) 0.3 mg IM ONCE PRN: as needed for anaphylaxis albuterol (ProAir HFA 90 mcg/inh inhalation aerosol) 2 puff inhaled PRN: as needed for wheezing apixaban (Eliquis 5 mg oral tablet) 5 mg PO bid aspirin (Aspirin Low Dose) 81 mg PO Daily buPROPion (buPROPion 100 mg oral tablet) 100 mg PO bid bumetanide (bumetanide 1 mg oral tablet) 1 mg PO Daily carvedilol (carvedilol 12.5 mg oral tablet) 2 tabs in AM, 1 tab in pm cetirizine docusate (Doculase 100 mg oral capsule) 1 cap PO bid PRN: as needed for constipation doxycycline (doxycycline hyclate 100 mg oral capsule) 100 mg PO bid doxycycline (doxycycline hyclate 100 mg oral tablet) 100 mg PO bid take with food finasteride (finasteride 5 mg oral tablet) 1 tab PO Daily metoclopramide (metoclopramide 5 mg oral tablet) 10 mg PO q8h mometasone nasal (mometasone nasal 50 mcg/inh spray) 2 spray intranasal Daily PRN: as needed for allergy symptoms nystatin topical (nystatin 100,000 units/g topical powder) ocular lubricant (Refresh) 1 drop both eyes bid olodaterol-tiotropium (Stiolto Respimat 10 ACT 2.5 mcg-2.5 mcg/inh inhalation aerosol) 2 inh inhaled Daily oxyCODONE (oxyCODONE 10 mg oral tablet) 10 mg PO q12h pantoprazole (pantoprazole 40 mg oral delayed release tablet) 1 tab PO BID while taking alleve for [facility] painFAX TO [phone] potassium chloride (Potassium Chloride (Ifk-Kfay-Pub M20)) 20 mEq PO bid pramipexole (pramipexole 0.375 mg oral tablet, extended release) rosuvastatin (rosuvastatin 20 mg oral tablet) 20 mg PO Daily senna (senna 8.6 mg oral tablet) 8.6 mg PO bid PRN: as needed for constipation unknown medication (aluminum nitrate) valsartan 51 mg 1 twice daily Vitals: Last Updated 05/31/24 05:51 Weights: Last Updated 05/30/24 08:16 Date Temp Pulse BP RR SpO2 FIO2 Date Wt(kg) Wt(lb) 05/31 05:51 95 40% 05/30 08:16 109.9 242 02 05:20 95 35 95 3.0L/m 05/30 08:16 109.9 242 05/31 04:56 93 25 87 3.0L/m 05/31 04:07 36.9 106 142/89 26 91 2.0L/m 05/31 00:08 36.7 84 126/81 28 94 2.0L/m 24 Hr Tmax: 36.9 at 05/31 04:07 Initial Wt: 05/30 109.9 kg 242 lb Physical Exam: GEN: In mild acute distress and on BiPAP HEENT: AT/NC, MMM Neck: Supple, no JVD Cardiac: Regular rate and rhythm, normal S1 and S2, no murmurs, rubs or gallops. Lungs: CTAB, no increase work of breathing, fine in lung bases crackles. Abd: Normoactive bowel sound, soft, non distended and non tender Ext: No peripheral edema, 2+ peripheral pulses intact. Femoral access sites without bleeding or hematoma Skin: Warm and well perfused. Neuro: Alert and oriented to self, place, and time. No focal neurological deficits. Psych: Normal mood and affect. Most Recent 24 Hour CBC/BMP Results No Latest CBC or BMP Found. Most Recent 24 Hour Labs: 05/30/24 1226 ACT (Celite), POC 324 H 05/30/24 0925 Estimated CrCl 54.67 05/30/24 0827 Plts 233 BUN 27 H Cret 1.36 H eGFR CKD-EPI 53 L Studies: Pending or Completed in the Last 24 Hours XR Chest 1 View Ordered Echo TransTHORacic TTE Limited Ordered Echo TransTHORacic TTE Limited Completed Echo TransTHORacic TTE Limited Report Signatures Finalized by Alfonso Garcia II, MD on 05/30/2024 05:03 PM Promoted to Fellow by Dr. Bert Javier DO on 05/30/2024 04:30 PM [place] Act 112: No-No further action needed Summary 1. Normal left ventricular size with moderately reduced systolic function. 2. Estimated Ejection Fraction 30-35%. 3. Hypokinesis of the apex and akinesis of the inferior wall. 4. Normal right ventricular size and function. 5. Device lead in right sided chambers. 6. No significant valvular abnormalities. 7. Prominent epicardial fat pad with small pericardial effusion. 8. Limited study to evaluate for pericardial effusion status post ablation. 9. No prior studies for comparison. EKG Completed ASSESSMENT: _Mr. Ziggy Deutsch is a 79-year-old male with a medical history significant for coronary artery disease, status post PCI to the RCA on 11/19/2010; heart failure with reduced ejection fraction (last EF 30%), status post APPLICATIONS DEVELOPMENT ANALYST-D implantation in 2014; prior DVTs and PE; and paroxysmal atrial fib rillation on Eliquis. He was recently diagnosed with atrial tachycardia by device interrogation andpresents for ablation. He developed respiratory distress as he did not wear BiPAP and not resume his home inhaler. #Acute Hypoxic Respiratory Failure History of obstructive sleep apnea (ROSE) on home CPAP (11/01) Likely etiology: non-adherence to BiPAP overnight and missed home inhalers Currently alert, oriented x4, and able to speak in full sentences Status post nebulizer treatments, now on BiPAP Plan: Continue albuterol nebulizers as needed Replace home olodaterol/tiotropium with Anoro Ellipta As-needed diuresis with 1 mg IV Bumex f/u VBG, BMP and CBC #Heart Failure with Reduced Ejection Fraction (HFrEF) LVEF 30% Small pericardial effusion noted Patient is optimized on GDMT with valsartan, carvedilol 25 mg once daily, and Bumex 1 mg once daily Plan: Repeat limited echocardiogram to monitor pericardial effusion (ORDERED) Continue aggressive diuresis as needed #History of Atrial Fibrillation & Atrial Tachycardia " Status Post Ablation () No immediate complications noted Plan: Continue monitoring FEN: daily BMP DVT: home eliquis Disposition: HVICU Contact: Plan discussed with family CODE STATUS: FULL CODE Electrophysiology Attending: I saw Mr. Deutsch, examined him, and reviewed his records. I agree with Dr. Lee assessment and plan. Justus Major M.D. Electronic Signature on File Electronically Reviewed/Signed by: Pa Mcclain MD Author Signature Dt/Tm:05/31/2024 07:34 AM Resident [facility] [place] Electronically Reviewed/Signed by: Pa Mcclain MD Cosigner Signature Dt/Tm: 05/31/2024 07:37 AM Resident [facility] [place] Electronically Reviewed/Signed by: Pa Mcclain MD Cosigner Signature Dt/Tm: 05/31/2024 07:37 AM Resident [facility] [place] Electronically Reviewed/Signed by: MD Azul Arreola Signature Dt/Tm: 05/31/2024 07:47 AM Resident [facility] [place] Electronically Reviewed/Signed by: MD Jocelynn Jacobsonigner Signature Dt/Tm: 05/31/2024 08:18 AM Resident [facility] [place] Electronically Reviewed/Signed by: MD Azul Miles Signature Dt/Tm: 05/31/2024 03:47 PM [facility] [place] [facility], [address], [address], [place] [address] [facility] * Services, CPDI: PERFORM Event Display: [facility] Authored Date: [id number] * MICHELLE Purcell Michelle C: PERFORM Event Display: Outpt Note Authored Date: [id number] Name:ZIGGY DEUTSCH Patient Number:[id number] :1945 Date of Service:05/26/2024 Electrophysiology Pre-ProcedureInstructions NPO Status:NPO after midnight for all solids the night before surgery - clear liquids (water, apple juice, Gatorade, black coffee,black tea)after midnight up until one (1) hour prior to patientarrival time EP Procedure: Afib/Atach ablation w/ conscious sedation; on Thursday May 30, [address] Major Per medication instructions: advised to hold eliquis the PM and valsartan the day prior Electronic Signature on File Electronically Reviewed/Signed by: MICHELLE Millan Author Signature Dt/Tm:05/26/2024 08:56 AM [facility] [place] [facility], [address], [facility] [address], [place] [address] [facility] .D/C Summary * DO Tran Vincent A: MODIFY DO Tran Vincent A: MODIFY Event Display: .D/C Summary Authored Date: [id number] [facility] For medical concerns, call: . Address: [address] [place] [id number] (HOME) [phone] (MOBILE) :1945 . Date of Admission:05/30/2024 Date of Discharge:06/02/2024 Physician:DO Tran Vincent A Service:Cardiology Discharge Disposition:Home or Self Care Primary Care Provider/Phone: MD PETERSON CHRISTOPHER ([employer] [phone] (FAX [employer] Principal Diagnosis: Atrial tachycardia Other Diagnoses: Acute on chronic HFrEF (heart failure with reduced ejection fraction) History of electrophysiologic study Acute on chronic hypoxic respiratory failure Constipation CAD (coronary artery disease) Obesity (BMI 30-39.9) COPD ROSE - Obstructive sleep apnea HTN - Hypertension GERD Acute exacerbation of chronic heart failure Major Tests and Procedures: Successful ablation of a left macro-reentrant atrial tachycardia 05/30/2024 (05/30/2024 15:44 EST Echo TransTHORacic TTE Limited) 1. Normal left ventricular size with moderately reduced systolic function. 2. Estimated Ejection Fraction 30-35%. 3. Hypokinesis of the apex and akinesis of the inferior wall. 4. Normal right ventricular size and function. 5. Device lead in right sided chambers. 6. No significant valvular abnormalities. 7. Prominent epicardial fat pad with small pericardial effusion. 8. Limited study to evaluate for pericardial effusion status post ablation. 9. No prior studies for comparison. [1] (05/31/2024 08:38 EST Echo TransTHORacic TTE Limited) 1. Limited study to assess for post-procedural pericardial effusion. 2. Normal left ventricular size and systolic function with no regional wall motion abnormalities. 3. Estimated ejection fraction 50-55%. 4. Mild right ventricular dilation with normal function. 5. Normal biatrial size. 6. Limited valvular interrogation. 7. Prominent epicardial fat pad. Small pericardial effusion WITHOUT evidence of tamponade. 8. When compared [id number] to prior study 05/30/24, no significant changes noted. [2] Brief History of Present Illness: The patient is a pleasant 79-year-old manwith history of coronary artery disease status post PCI to the RCAin 2010, COPD,heart failure with reduced ejection fraction status post APPLICATIONS DEVELOPMENT ANALYST-D implantation,and paroxysmal atrial fibrillation,who was electively admitted on 05/30/2024for atrial fibr illation/atrial tachycardia ablation. Postprocedure, the patient developed hypoxic respiratory failure requiring admission to the ICUand BiPAP. Hospital Course: The patient was admitted to the ICUfor initiation of BiPAP. He was restarted on his home inhalers that previously been held,he also received IV diuresis with relatively rapid improvement. Is likely that the patient's heart failure was precipitated from his underlying atrial arrhythmia that have been ongoingprior to his procedure,and further worsened by holding several of his home medications. On discharge, he was on room air and breathing comfortablywith only trace lower extremity edema. No changes were made to his medications, given that he had been compliant with all of his therapy,and heart failure exacerbation was likelya result of hisatrial arrhythmia. Exam on Discharge: Vitals & Measurements: T:36.3C TMIN:36.3C TMAX:37.2C HR:81(Monitored) RR:18 BP:136/75 SpO2:93% FIO2:40(%) Oxygen Flow:2(L/Min) Oxygen Therapy:Room Air WT:108kg BMI:33.79 kg/m2 GEN: well-developed, NAD. HEENT: No JVD appreciated, MMM, good dentition. CV: RRR, normal S1/S2, no murmurs, rubs, or gallops; Pulses 2+ in distal extremities bilaterally. LUNGS: CTAB, no wheezes, rhonchi, or crackles ABD: Soft, NT/ND, no masses or organomegaly. SKIN: Warm, well perfused. No skin rashes or abnormal lesions. MSK: No deformities. EXT: No clubbing, cyanosis, or edema. NEURO: AOx3.Resting tremor PSYCH: Good Judgment.Normal memory, mood, and affect. Medication indication for use are noted under the principal diagnosis Discharge Medications: 1.Docusate (Doculase 100 mg oral capsule) 1 cap by mouth 2 times daily, as needed for constipation. 2.Metoclopramide (metoclopramide 5 mg oral tablet) 10 mg (2 tab) by mouth every 8 hours. 3.Mometasone nasal (mometasone nasal 50 mcg/inh spray) 2 spray in the nose once daily, as needed for allergy symptoms. 4.Finasteride (finasteride 5 mg oral tablet) 1 tab by mouth once daily. 5.EPINEPHrine (epinephrine 0.3 mg injectable kit) 0.3 mg intramuscularly once, as needed for anaphylaxis. 6.Bumetanide (bumetanide 1 mg oral tablet) 1 mg (1 tab) by mouth once daily. 7.Aspirin (Aspirin Low Dose) 81 mg by mouth once daily. 8.Senna (senna 8.6 mg oral tablet) 8.6 mg (1 tab) by mouth 2 times daily, as needed for constipation. 9.Pantoprazole (pantoprazole 40 mg oral delayed release tablet) See Instructions . 1 tab PO BID while [phone]. 10.BuPROPion (buPROPion 100 mg oral tablet) 100 mg (1 tab) by mouth 2 times daily. 11.Ocular lubricant (Refresh) 1 drop in both eyes 2 times daily. 12.Albuterol (ProAir HFA 90 mcg/inh inhalation aerosol) 2 puff Inhalation as needed for wheezing. 13.Carvedilol (carvedilol 12.5 mg oral tablet) 12.5 mg (1 tab) by mouth 2 times daily. . 14.Cetirizine . 15.Pramipexole (pramipexole 0.375 mg oral tablet, extended release) . 16.Apixaban (Eliquis 5 mg oral tablet) 5 mg (1 tab) by mouth 2 times daily. 17.OxyCODONE (oxyCODONE 10 mg oral tablet) 10 mg (1 tab) by mouth every 12 hours. 18.Potassium chloride (Potassium Chloride (Epe-Onyb-Tjj M20)) 20 mEq by mouth 2 times daily. 19.Olodaterol-tiotropium (Stiolto Respimat 10 ACT 2.5 mcg-2.5 mcg/inh inhalation aerosol) 2 inh Inhalation once daily. 20.Nystatin topical (nystatin 100,000 units/g topical powder) . 21.Sacubitril-valsartan (Entresto 49 mg-51 mg oral tablet) 1 tab by mouth 2 times daily. 22.Rosuvastatin (rosuvastatin 20 mg oral tablet) 10 mg (0.5 tab) by mouth once daily. Allergies and Sensitivities: Bee stingbreathing hydrocodoneGi distress lidocainerash oxycodoneGI distress penicillinsbreathing/rash Tests Pending: None Scheduled Appointments: Date/Time:Provider/Resource: August 08:45 MD Elias Mario D Location/Instructions:[facility] Neha Garcia, [address], [address], [address], [place] [address] . Please arrive 15 minutes earlier than your appointment time for the check in process. Discharge Services: Service: Organization: Business Address: Phone Number: Home [facility] [address] [place] [address], [id number] Care Instructions: You were hospitalized after your heart procedure to help remove extra fluid that was making it hardfor you to breath. Our physical therapists recommended you have home therapy for a short period of time to help you get stronger at home. Please follow their instructions to help you get stronger and prevent injury and falls at home. ELECTROPHYSIOLOGY STUDY/ABLATION DISCHARGE INSTRUCTIONS ACTIVITY You should walk and join in other low-level activities right away. For 24 hours after the procedure: You may not drive a car or use heavy machinery. For 1 week after the procedure: Do not take part in forceful exercise (e.g. running, aerobics, tennis, bowling, biking, golfing or sexual activity). Do not lift small children, pets, or anything heavier than 10 pounds. Limit riding in a car for long periods of time. If needed, make frequent stops to stretch your legs and walk. WOUND CARE You may shower the day after your procedure. Slowly take off your dressings and wash gently with soap and water, being careful not to dislodge any scab. Pat dry and put on a clean, dry band-aid. Do not use lotions, ointments or powders on the wound site. Reapply a clean dry band-aid every day until the skin is completely healed. Do not allow the wound site to stay under water for a long period of time for threedays, or until the site is completely healed. It is normal to: Have bruising under the skin. This may take weeks to get better. Have a small lump at the wound site, (this is a small collection of blood). This should get smaller in size over time. Have a little pain at the wound site for 3-5 days. Check your wound every day until it is completely healed for signs of infection andcall us right away at the number listed below if you have any of the following: Fever greater than 100 Pain thatisgetting worse instead of getting better Swelling or red streaks down your leg Redness or warmth Any drainage If there is a small amount of bleeding at the wound site, lie down immediately and apply firm pressure with two fingers right above the site for10 minutes, or until the bleeding has stopped. If the bleeding stops: Sit quietly, keeping the procedure leg straight for 4 hours. Let your caregiver know as soon as possible. If the bleeding does not stop or if there is a large amount of bleeding or spurting: Call [address] yourself to a hospital. Continue to lie down and hold firm pressure until help arrives. MEDICATIONS Your caregiver will tell you how to restart your medications. It is important that you take them asinstructed. Do not miss any doses or stop taking them without asking first. If you need a blood thinner, it may have been restarted the day after the procedure. You may have occasional skipped beats or occasional rapid beats (palpitations) after an ablation. This may happen for up to 3 months after the procedure. Your caregiver can usually help this with fine-tuning of your medications. Contact Numbers: [facility]: . Advance Directive:Living will, Health Care Power of Sap Senior Developer The patient was staffed with Dr. Tran, the attending physician of record. The attending physician assessed the patient in-person on the day of discharge and was in agreement with the assessment and plan unless otherwise noted in the attestation / addendum below. Loi Mahajan MD/MPH Internal Medicine PGY2 I personally reviewed the patient's chart, including vital signs, lab results and all pertinent diagnostic imaging. I personallyinterviewed and examinedthe patient, and discussed the care plan atbedside. I agree with the information input by the housestaff, and edited the note as necessary, with the following additions: I personally spent32 minutes in discharge planning, including greater than 50% of that time spentin [id number] counseling of the patient and/or family. Charlie Tran DO, [facility] Manager Emergency Departmentclassifier operator [1][employer]; MD Radha, Alfonso Galicia 05/30/2024 15:44 EST [2][employer]; MD Garcia Ryan 05/31/2024 08:38 EST Electronic Signature on File CC: Justus Major MD [address] [facility] [address] [facility] [address] CC: Tramaine Peterson MD [address] [facility] [address] [facility] [address] Electronically Reviewed/Signed by: Loi Mahajan MD Author Signature Dt/Tm:06/02/2024 12:03 PM Resident Division of Internal Medicine Electronically Reviewed/Signed by: Charlie Tran DO Cosigner Signature Dt/Tm: 06/02/2024 02:16PM Cardiology TV Discharge instructions * FRANNY Banda, Devonte T: MODIFY, MODIFY, PERFORM, MODIFY, MODIFY Event Display: Patient Discharge Instructions Authored Date: [id number] ZIGGY DEUTSCH :1945 Visit Date:05/30/2024 Patient Discharge Instructions [facility] For medical concerns, call: . Date of Admission:05/30/2024 Date of Discharge:06/02/2024 Physician:DO Tran Vincent A Service:Cardiology Discharge Disposition: . Advance Directive:Living will, Health Care Power of Sap Senior Developer Reason for Hospitalization Atrial tachycardia Your Diagnoses Atrial tachycardia Acute on chronic HFrEF (heart failure with reduced ejection fraction) History of electrophysiologic study Acute on chronic hypoxic respiratory failure Constipation CAD (coronary artery disease) Obesity (BMI 30-39.9) COPD ROSE - Obstructive sleep apnea HTN - Hypertension GERD Acute exacerbation of chronic heart failure My Health Patient Portal: [employer] makes it easy for you to manage your health information online. My [employer] is a free service that provides you instant, secure access to your medical information anytime, anywhere. Sign in or set up your account today at [email or web address] Thank you for allowing us to assist you with your healthcare needs. If you need additional community resources, BRYNN Duque can help at [email or web address]. 211 can assist you in connecting with social programs based on your unique needs and locations. 211 is an anonymous search that can help you locate resources for: Food, Housing, Transportation, Goods, Education and Healthcare. Medications What How Much When Instructions Next Dose Unchanged carvedilol (carvedilol 12.5 mg oral tablet) 1 tab(s) by mouth 2 times daily Unchanged rosuvastatin (rosuvastatin 20 mg oral tablet) 0.5 tab(s) by mouth Once daily Unchanged albuterol (ProAir HFA 90 mcg/ inh inhalation aerosol) 2 puff(s) Inhalation As needed for as needed for wheezing Unchanged apixaban (Eliquis 5 mg oral tablet) 1 tab(s) by mouth 2 times daily Unchanged aspirin (Aspirin Low Dose) 81 Milligram by mouth Once daily Unchanged bumetanide (bumetanide 1 mg oral tablet) 1 tab(s) by mouth Once daily Unchanged buPROPion (buPROPion 100 mg oral tablet) 1 tab(s) by mouth 2 times daily Unchanged cetirizine Unchanged docusate (Doculase 100 mg oral capsule) 1 cap by mouth 2 times daily as needed for as needed for constipation Unchanged EPInephrine (epinephrine 0.3 mg injectable kit) 0.3 Milligram intramuscularly Once as needed for as needed for anaphylaxis Unchanged finasteride (finasteride 5 mg oral tablet) 1 tab(s) by mouth Once daily Unchanged metoclopramide (metoclopramide 5 mg oral tablet) 2 tab(s) by mouth Every 8 hours Unchanged mometasone nasal (mometasone nasal 50 mcg/ inh spray) 2 spray(s) in the nose Once daily as needed for as needed for allergy symptoms Unchanged nystatin topical (nystatin 100,000 units/ g topical powder) Unchanged ocular lubricant (Refresh) 1 Drops in both eyes 2 times daily Unchanged olodaterol-tiotropium (Stiolto Respimat 10 ACT 2.5 mcg-2.5 mcg/ inh inhalation aerosol) 2 inh Inhalation Once daily Unchanged oxyCODONE (oxyCODONE 10 mg oral tablet) 10 Milligram by mouth Every 12 hours Unchanged pantoprazole (pantoprazole 40 mg oral delayed release tablet) See instructions 1 tab PO BID while taking alleve for [facility] [phone] Unchanged potassium chloride (Potassium Chloride (Nmq-Hpmk-Sev M20)) 20 Milliequivalent by mouth 2 times daily Unchanged pramipexole (pramipexole 0.375 mg oral tablet, extended release) Unchanged sacubitril-valsartan (Entresto 49 mg-51 mg oral tablet) 1 tab(s) by mouth 2 times daily Unchanged senna (senna 8.6 mg oral tablet) 1 tab(s) by mouth 2 times daily as needed for as needed for constipation What How Much When Why Comments Stop Taking doxycycline (doxycycline hyclate 100 mg oral capsule) 1 cap by mouth 2 times daily Duration: 7 Days Stop Taking doxycycline (doxycycline hyclate 100 mg oral tablet) 1 tab(s) by mouth 2 times daily Epidermal inclusion cyst Duration: 7 Days take with food Stop Taking unknown medication (aluminum nitrate) Stop Taking valsartan 51 mg 1 twice daily Allergies Bee stingbreathing hydrocodoneGi distress lidocainerash oxycodoneGI distress penicillinsbreathing/rash What to do next Instructions From Your Doctor You were hospitalized after your heart procedure to help remove extra fluid that was making it hardfor you to breath. Our physical therapists recommended you have home therapy for a short period of time to help you get stronger at home. Please follow their instructions to help you get stronger and prevent injury and falls at home. ELECTROPHYSIOLOGY STUDY/ABLATION DISCHARGE INSTRUCTIONS ACTIVITY You should walk and join in other low-level activities right away. For 24 hours after the procedure: You may not drive a car or use heavy machinery. For 1 week after the procedure: Do not take part in forceful exercise (e.g. running, aerobics, tennis, bowling, biking, golfing or sexual activity). Do not lift small children, pets, or anything heavier than 10 pounds. Limit riding in a car for long periods of time. If needed, make frequent stops to stretch your legs and walk. WOUND CARE You may shower the day after your procedure. Slowly take off your dressings and wash gently with soap and water, being careful not to dislodge any scab. Pat dry and put on a clean, dry band-aid. Do not use lotions, ointments or powders on the wound site. Reapply a clean dry band-aid every day until the skin is completely healed. Do not allow the wound site to stay under water for a long period of time for threedays, or until the site is completely healed. It is normal to: Have bruising under the skin. This may take weeks to get better. Have a small lump at the wound site, (this is a small collection of blood). This should get smaller in size over time. Have a little pain at the wound site for 3-5 days. Check your wound every day until it is completely healed for signs of infection andcall us right away at the number listed below if you have any of the following: Fever greater than 100 Pain thatisgetting worse instead of getting better Swelling or red streaks down your leg Redness or warmth Any drainage If there is a small amount of bleeding at the wound site, lie down immediately and apply firm pressure with two fingers right above the site for10 minutes, or until the bleeding has stopped. If the bleeding stops: Sit quietly, keeping the procedure leg straight for 4 hours. Let your caregiver know as soon as possible. If the bleeding does not stop or if there is a large amount of bleeding or spurting: Call [address] yourself to a hospital. Continue to lie down and hold firm pressure until help arrives. MEDICATIONS Your caregiver will tell you how to restart your medications. It is important that you take them asinstructed. Do not miss any doses or stop taking them without asking first. If you need a blood thinner, it may have been restarted the day after the procedure. You may have occasional skipped beats or occasional rapid beats (palpitations) after an ablation. This may happen for up to 3 months after the procedure. Your caregiver can usually help this with fine-tuning of your medications. Contact Numbers: [facility]: You were offered a Hepatitis C screening test and you declined. Please follow up with your PCP. If you notice the following symptoms Increased or unrelieved pain, including chest pain or pressure Increasing difficulty with breathing Increasing swelling of legs or belly Palpitations or irregular heart beats Dizziness or blackouts Black or tarry stools Hives or painful rash, swollen lips or tongue, swollen throat or face Swelling, redness, discharge, or pain around a procedure site Contact the [facility] Careline at . If unable to contact your physician and you feel it is an emergency, go to the nearest Emergency Room or call 911 Diet Instructions Cardiac prudent, low sodium. Activity Instructions as above Follow-Up Appointments Scheduled Follow-Up Appointments Date/Time:Provider/Resource: August 08:45 MD Curt, Justus Tariq Location/Instructions:[facility] Neha Garcia, [address], [address], [place] [address] . Please arrive 15 minutes earlier than your appointment time for the check in process. Someone Will Contact You Regarding These Appointments Follow up with your family doctor in the next 1- weeks. Call their office to make an appointment The Following Services Have Been Arranged for You We are in the process of arranging visiting nurses and therapy. The visiting nurses should call you to schedule a home visit. If they do not call the toll free number at the top of these instructions. Tests Pending None Procedures Performed EP study/ablation- Afib/AT 05/30/2024 Special Instructions Heart Failure Instructions Heart Failure-You were hospitalized for heart failure. The last ejection fraction of your heart was50%. Your heart failure care tools include the following: DIET Follow a 2300 mg sodium diet ACTIVITY Balance activity with rest periods MEDICATIONS Take all medications that you see on your discharge medication sheet WEIGHT MANAGEMENT Weigh yourself every morning, at the same time, and write it down. Bring a record of your weights to all doctor visits Your weight at discharge was 238 lb. Compare your weights daily for rapid gain and follow the Zones Green Zone: ALL CLEAR. This zone is your goal Weight is stable No need to raise head to breathe while sleeping Not short of breath while sleeping Physical activity level is normal No new swelling of legs, feet, ankles and abdomen No new or worsening shortness of breath Yellow Zone: CAUTION - This zone is your WARNING! Use your Action Plan Weight gain of 2 to 3 lbs over two consecutive days or 4 to 5 lbs in one week Need to raise head to sleep due to shortness of breath Waking up from sleep with sudden or unusual shortness of breath Physical activity is limited due to shortness of breath or fatigue Increased swelling of legs, feet, ankles and abdomen New onset shortness of breath or hacking cough YELLOW ZONE ACTION PLAN Call your distribution driver Red Zone: DANGER - Act now! Short of breath while sitting still Chest pain Confusion/cannot think clearly WHAT TO DO? Call 911 or go to your local emergency room Common Emergency Awareness Tips Call 911 immediately if: experiencing any of the warning signs and symptoms of stroke: B.E. F.A.S.T. Balance: is there trouble with walking or coordination Eyes: is there double vision or visual loss Face: Smile, do both sides of face move equally Arm: Raise arms, do both arms move equally Speech: Is speech slurred or inappropriate Time: Time is critical, call 911 immediately Heart Attack Signs Chest discomfort: Most heart attacks involve discomfort in the center of the chest and lasts more than a few minutes, or goes away and comes back. It can feel like uncomfortable pressure, squeezing, fullness or pain. Discomfort in upper body: Symptoms can include pain or discomfort in one or both arms, back, neck, jaw or stomach. Shortness of breath: With or without discomfort. Other signs: Breaking out in a cold sweat, nausea, or lightheaded. Remember, MINUTES DO MATTER. If you experience any of these heart attack warning signs, call 9-1-1 to get immediate medical attention! Education Materials Cardiac Ablation, Care After The following information offers guidance on how to care for yourself after your procedure. Your health care provider may also give you more specific instructions. If you have problems or questions, contact your health care provider. What can I expect after the procedure? After the procedure, it is common to have: Bruising and mild pain around the insertion site. Skipped heartbeats. Tiredness (fatigue). Follow these instructions at home: Insertion site care Follow instructions from your health care provider about how to take care of your insertion site. Make sure you: Wash your hands with soap and water for at least 20 seconds before and after you change your bandage (dressing). If soap and water are not available, use hand sharepoint analyst. Change your dressing as told by your health care provider. Leave stitches (sutures), skin glue, or adhesive strips in place. These skin closures may need to stay in place for 2 weeks or longer. If adhesive strip edges start to loosen and curl up, you may trim the loose edges. Do not remove adhesive strips completely unless your health care provider tells you to do that. Check your insertion site every day for signs of infection. Check for: More redness, swelling, or pain. Fluid or blood. Warmth. Pus or a bad smell. If your insertion site starts to bleed, lie on your back, put firm pressure on the area, and contact your health care provider. Activity Avoid activities that take a lot of effort for at least 3 days after your procedure. You may have to avoid lifting. Ask your health care provider how much you can safely lift. Return to your normal activities as told by your health care provider. Ask your health care provider what activities are safe for you. General instructions If you were given a sedative during the procedure, it can affect you for several hours. Do not drive or operate machinery until your health care provider says that it is safe. Take wccq-ogm-[id number] and prescription medicines only as told by your health care provider. Do not use any products that contain nicotine or tobacco. These products include cigarettes, chewing tobacco, and vaping devices, such as e-cigarettes. If you need help quitting, ask your health careprovider. Do not take baths, swim, or use a hot tub until your health care provider approves. Ask your healthcare provider if you may take showers. You may only be allowed to take sponge baths. Do not drink alcohol for 24 hours after your procedure. Keep all follow-up visits. Your health care provider will want to check your heart rate and rhythm again after the procedure. Contact a health care provider if: You have a fever. You notice signs of infection around the catheter insertion site. You are sweating a lot. You feel nauseous. You have pain or numbness in the arm or leg closest to your insertion site. You are dizzy or light-headed. You have fast or irregular heartbeats (palpitations). Get help right away if: Your insertion site suddenly swells. You have face drooping, arm weakness, or sudden trouble walking or speaking. You have chest pain or discomfort that spreads to your neck, jaw, or arm. You have shortness of breath. These symptoms may be an emergency. Get help right away. Call 911. Do not wait to see if the symptoms will go away. Do not drive yourself to the hospital. This information is not intended to replace advice given to you by your health care provider. Make sure you discuss any questions you have with your health care provider. Document Revised: 09/29/2022 Document Reviewed: 09/29/2022 [employer] Patient Education 2023 [employer] Fall Prevention in the Home, Adult Falls can cause injuries and can happen to people of all ages. There are many things you can do to make your home safer and to help prevent falls. What actions can I take to prevent falls? General information Use good lighting in all rooms. Make sure to: Replace any light bulbs that burn out. Turn on the lights in dark areas and use night-lights. Keep items that you use often in bncv-tl-vpbsm places. Lower the shelves around your home if needed. Move furniture so that there are clear paths around it. Do not use throw rugs or other things on the floor that can make you trip. If any of your floors are uneven, fix them. Add color or contrast paint or tape to clearly jyotsna and help you see: Grab bars or handrails. First and last steps of staircases. Where the edge of each step is. If you use a ladder or stepladder: Make sure that it is fully opened. Do not climb a closed ladder. Make sure the sides of the ladder are locked in place. Have someone hold the ladder while you use it. Know where your pets are as you move through your home. What can I do in the bathroom? Keep the floor dry. Clean up any water on the floor right away. Remove soap buildup in the bathtub or shower. Buildup makes bathtubs and showers slippery. Use non-skid mats or decals on the floor of the bathtub or shower. Attach bath mats securely with double-sided, non-slip rug tape. If you need to sit down in the shower, use a non-slip stool. Install grab bars by the toilet and in the bathtub and shower. Do not use towel bars as grab bars. What can I do in the bedroom? Make sure that you have a light by your bed that is easy to reach. Do not use any sheets or blankets on your bed that hang to the floor. Have a firm chair or bench with side arms that you can use for support when you get dressed. What can I do in the kitchen? Clean up any spills right away. If you need to reach something above you, use a step stool with a grab bar. Keep electrical cords out of the way. Do not use floor nepali or wax that makes floors slippery. What can I do with my stairs? Do not leave anything on the stairs. Make sure that you have a light switch at the top and the bottom of the stairs. Make sure that there are handrails on both sides of the stairs. Fix handrails that are broken or loose. Install non-slip stair treads on all your stairs if they do not have carpet. Avoid having throw rugs at the top or bottom of the stairs. Choose a carpet that does not hide the edge of the steps on the stairs. Make sure that the carpet is firmly attached to the stairs. Fix carpet that is loose or worn. What can I do on the outside of my home? Use bright outdoor lighting. Fix the edges of walkways and driveways and fix any cracks. Clear paths of anything that can make you trip, such as tools or rocks. Add color or contrast paint or tape to clearly jyotsna and help you see anything that might make you trip as you walk through a door, such as a raised step or threshold. Trim any bushes or trees on paths to your home. Check to see if handrails are loose or broken and that both sides of all steps have handrails. Install guardrails along the edges of any raised decks and porches. Have leaves, snow, or ice cleared regularly. Use sand, salt, or ice melter on paths if you live where there is ice and snow during the winter. Clean up any spills in your garage right away. This includes grease or oil spills. What other actions can I take? Review your medicines with your doctor. Some medicines can cause dizziness or changes in blood pressure, which increase your risk of falling. Wear shoes that: Have a low heel. Do not wear high heels. Have rubber bottoms and are closed at the toe. Feel good on your feet and fit well. Use tools that help you move around if needed. These include: Canes. Walkers. Scooters. Crutches. Ask your doctor what else you can do to help prevent falls. This may include seeing a physical therapist to learn to do exercises to move better and get stronger. Where to find more information Centers for Disease Control and Prevention, [place]: cdc.gov National [place] on Aging: courtney.nih.gov National [place] on Aging: courtney.nih.gov Contact a doctor if: You are afraid of falling at home. You feel weak, drowsy, or dizzy at home. You fall at home. Get help right away if you: Lose consciousness or have trouble moving after a fall. Have a fall that causes a head injury. These symptoms may be an emergency. Get help right away. Call 911. Do not wait to see if the symptoms will go away. Do not drive yourself to the hospital. This information is not intended to replace advice given to you by your health care provider. Make sure you discuss any questions you have with your health care provider. Document Revised: 12/14/2022 Document Reviewed: 12/14/2022 [employer] Patient Education 2023 [employer] Anesthesia records * Services, CPDI: PERFORM Event Display: Sedation & Analgesia Record Authored Date: [id number] Patient Care team information Care Team Personnel Name: FRANNY Nunes, Lainey Suarez Position: Physician Asst Exmpt - Family Med Member Role: Lifetime Relationship Address: [address] [place] [address] [place] Name: MD Nicholas, Tramaine Position: Physician - Family Med Member Role: Primary Care Provider Address: [address] [place] [address] [place] Name: FRANNY Perdomo Lynn Position: Physician Molder Offbearer Exempt - Vasc Surg Member Role: Lifetime Relationship Address: [address] [place] [address] Care Team Related Persons Name: ALICIA DEUTSCH Name: HUMPHREY DEUTSCH
[2024-06-06] MEDS ORDERED: buPROPion HCl 100 MG TABLET PO SCH (09:00)
[2024-06-06] MEDS: ASPIRIN 81 MG ECTAB PO SCH (09:03)
[2024-06-06] MEDS: BUMETANIDE 1 MG in SYRINGE 0 ML IV SCH (09:03)
[2024-06-06] MEDS: APIXABAN 5 MG TABLET PO SCH (09:03)
[2024-06-06] MEDS: buPROPion HCl 100 MG TABLET PO SCH (09:04)
[2024-06-06] MEDS: PRAMIPEXOLE DIHYDROCHLO 0.25 MG TAB PO SCH (09:04)
[2024-06-06] MEDS: FLUTICASONE PROPIONATE NA SPR 16 GM BTL SCH (09:04)
[2024-06-06] MEDS: carvediloL 25 MG TAB PO SCH (09:04)
[2024-06-06] MEDS: FINASTERIDE 5 MG TAB PO SCH (09:04)
[2024-06-06] MEDS: CEROVITE ADV FORMULA TAB PO SCH (09:04)
[2024-06-06] MEDS: NYSTATIN POWDER 15GM BTL EXT SCH (09:05)
[2024-06-06] MEDS: UMECLIDINIUM/VILANTEROL 62.5/25MCG 7 PUFFS/INHALER INH SCH (09:05)
--- NOTE | 2024-06-06 09:08 | XRay Report ---
XR chest 1V portable HISTORY: 79 years-old Male COVID+, leukocytosis, ?pneumonia acute shortness of breath COMPARISON: 06/05/2024 chest, Chest CT 04/14/2024 TECHNIQUE: AP view of the chest FINDINGS: Left subclavian pacer/AICD. Cardiomegaly. Pulmonary vascular congestion with interstitial coarsening. No pneumothorax. Layering pleural effusions with bibasilar consolidation again noted, left greater t dickey right. No significant change from yesterday's study. Bones appear grossly intact. Pulmonary emphy sema. Hiatal hernia. IMPRESSION: 1. Cardiomegaly with unchanged pulmonary edema. 2. Layering pleural effusions with persistent bibasilar consolidation. 3. Pulmonary emphysema. ACT 112: Negative or not required by law. The above report was generated using voice recognition software. It may contain grammatical, syntax o r spelling errors. Electronically signed by: Matthias Luna M.D. 06/06/2024 9:07 AM
[2024-06-06] MEDS: POTASSIUM CHLORIDE CRTAB 20 MEQ TABCR PO SCH (10:20)
[2024-06-06] MEDS: SENNA 8.6 MG TAB PO SCH (10:20)
[2024-06-06] MEDS: DOCUSATE SODIUM 100 MG CAP PO SCH (10:20)
[2024-06-06] MEDS: PANTOprazole 40 MG TAB PO SCH (10:20)
--- NOTE | 2024-06-06 14:51 | Hospitalist Progress Note ---
Date of Service June 06, 2024 Assessment & Plan (1) COVID-19: Plan: tested + for such upon admission he thinks he may have had COVID testing in [place] last week that was negative? he likely developed COVID-19 symptoms over this weekend I cannot exclude that some of his CXR findings aren't from COVID itself thus, start Remdesivir x 3 days LFTS wnl airborne precautions if any worsening with respiratory status --> dexamethasone (2) Catheter-associated urinary tract infection: Plan: 2nd to klebsiella follow culture change IV Cipro to IV ertapenem of note - patient self-caths at home on regular basis (3) Acute on chronic systolic heart failure: Plan: EF 25-30% on echo 11/2023 multiple wall motion abnormalities c/w ischemic cardiomyopathy clinically/radiographically volume overloaded cont bumex diuresis cont coreg BID hold Entresto for now as BPs are soft labs in am (4) Abdominal distension: Plan: etiology? constipation? ileus? other? start with portable KUB x-ray then go from there (5) PAT (paroxysmal atrial tachycardia): Plan: s/p ablation procedure at [facility] last week by report was successful (6) Paroxysmal atrial fibrillation: Plan: history of cont Eliquis cont coreg pacing on monitor (7) Parkinsonism: Plan: cont pramipexole (8) BPH loc w urin obs/LUTS: Plan: cont finasteride patient self-caths at home ray now in place (9) Presence of combination internal cardiac defibrillator (ICD) and pacemaker: Plan[place] [facility] pacing on monitor (10) Sleep apnea: Plan: BiPAP per home parameters (11/01) with back-up rate of 18 breaths/min per sleep study report (11) CAD (coronary artery disease): Plan: no ischemic symptoms at this time cont asa cont statin cont coreg Plan will need PT/OT updated by phone this evening Admission and Anticipated Discharge Date Admission Date: June 05, 2024 Subjective patient lying in bed watching TV reports nausea with poor/fair appetite today dyspnea improved in comparison to yesterday retrospectively he does remember feeling mildly short of breath upon discharge from [facility] last Wednesday (following his atrial tachycardia ablation procedure) he was having issues with constipation while at [facility] and upon discharge last bowel movement was Wednesday upon return home? denies any fevers Review of Systems Review of Systems: gen - no fevers or chills cv - no chest pain or tightness pulm - mild cough GI - feels bloated; no vomiting Physical Exam Physical Exam: gen - NAD, lying in bed neck - perhaps mild JVD present mouth - MMM heart - RRR, s1 s2 lungs - decreased BS bases, mild rales bases, no wheeze, no increased work of breathing abd - distended, mildly tender lower abdomen, BS+, no HSM neuro - mild tremor noted ext - pulses b/l feet 2+, <1+ edema b/l feet/ankles skin - b/l groin sites clean, no hematoma, band-aids in place Results & Data Results & Data Vital Signs (Past 12 Hours) Vital Signs Temp Pulse Resp BP Pulse Ox O2 Del Method 06/06/24 10:55 36.6 C 97 H 19 105/68 91 Room Air 06/06/24 10:43 Room Air 06/06/24 06:57 36.7 C 87 19 122/76 92 Room Air Laboratory Results Laboratory Results - last 24 hr 06/06/24 06/06/24 05:38 10:46 WBC 16.15 H RBC 4.46 L Hgb 13.2 L Hct 38.5 L MCV 86.3 MCH 29.6 MCHC 34.3 RDW Std Deviation 44.4 RDW Coeff of Jerry 14.0 Plt Count 270 MPV 10.5 Immature Gran % (Auto) 0.7 Neut % (Auto) 81.3 Lymph % (Auto) 11.0 [place] % (Auto) 5.8 Eos % (Auto) 1.1 Baso % (Auto) 0.1 Neut # (Auto) 13.12 H Lymph # (Auto) 1.78 [place] # (Auto) 0.94 H Eos # (Auto) 0.18 Baso # (Auto) 0.02 Immature Gran # (Auto) 0.11 Sodium 136 Potassium 3.7 Chloride 100 Carbon Dioxide 25 Anion Gap 11 BUN 23 Creatinine 1.11 Est Cr Clr Drug Dosing 68.0 eGFR 67.55 BUN/Creatinine Ratio 20.7 H Glucose 120 H Calcium 8.7 Magnesium 1.8 Total Bilirubin 1.1 H D AST 13 ALT 20 Alkaline Phosphatase 45 Troponin I High Sens 44.2 H 47.4 H Total Protein 6.8 Albumin 3.5 Globulin 3.3 Albumin/Globulin Ratio 1.1 PG Care Time/CCT Total # of Minutes Spent Total Time Spent with Patient: Total time spent is greater than 50% in coordination of care (as documented) at patient's floor/unit and/or counseling patient: Coding Level of Care Code 15739 SUB INP/OBS CARE 3/50MIN Diagnoses COVID-19 U07.1 Catheter-associated urinary tract infection T83.511A; N39.0 Acute on chronic systolic heart failure I50.23 Abdominal distension R14.0 PAT (paroxysmal atrial tachycardia) I47.19 Paroxysmal atrial fibrillation I48.0 Parkinsonism G20.C BPH loc w urin obs/LUTS N40.1 Presence of combination internal cardiac defibrillator (ICD) and pacemaker Z95.810 Sleep apnea G47.30 CAD (coronary artery disease) I25.10
[2024-06-06] MEDS: ERTAPENEM 1000MG 1,000 MG/10 ML SYR IV SCH (15:54)
[2024-06-06] MEDS: REMDESIVIR 200 MG in SODIUM CHLORIDE 0.9% 210 ML IV ONE (15:54)
--- NOTE | 2024-06-06 21:08 | XRay Report ---
EXAM: XR KUB/Abdomen 1 view CLINICAL HISTORY: Abd distension, ileus? impaction? TECHNIQUE: X-ray images of the abdomen were obtained in AP positions. COMPARISON: compared to prior x-ray abdomen dated 11/10/2023,02/28/2023. FINDINGS: Gas Pattern: Slightly dilated bowel loops with gaseous filled more at the pelvis. Dilated gas-filled bowel loop at the midline pelvis reaches 6 cm. Soft Tissues: Soft tissues of the abdomen appear normal without evidence of masses or calcifications. The liver, spleen, and kidneys are of normal size and position. Right lower lung opacity. left pleural minimal effusion. Implantable cardioverter defibrilator. cholecystectomy clips. IMPRESSION: Dilated gas-filled bowel loop at the pelvis reaches 6 cm, suggests an erect x-ray to exclude intestinal obstruction and clinical assessment. Electronically signed by Jacqueline Shay 06-06-2024 9:08 PM
[2024-06-06] MEDS: ARTIFICIAL TEARS OP OINT 3.5 GM TUBE OP SCH (21:12)
[2024-06-06] MEDS: ROSUVASTATIN CALCIUM 10 MG TAB PO SCH (21:12)
[2024-06-06] MEDS: OPTIRAY 320 100ml IV ONE (22:29)
--- NOTE | 2024-06-07 01:19 | CT Scan Report ---
Exam(s): CT ABDOMEN + PELVIS With Contrast IV Amt: 92 cc opti 320 EXAM: CT Abdomen and Pelvis With Intravenous Contrast CLINICAL HISTORY: Reason for exam: abd distension, ?ileus vs SBO. TECHNIQUE: Axial computed tomography images of the abdomen and pelvis with intravenous contrast. CTDI is 28.10 mGy and DLP is 1547.18 mGy-cm. Automated exposure control was utilized for the study. A dose lowering technique was utilized adhering to the principles of ALARA. CONTRAST: Patient received 92 cc opti 320 of IV contrast COMPARISON: Renal ultrasound dated 12/28/2023, CT abdomen pelvis without contrast dated 03/01/2023, CT abdomen pelvis with contrast dated 02/02/252015 FINDINGS: Lung bases: Emphysematous changes. Bibasilar atelectasis or consolidation. Pleural space: Small right pleural effusion. Mediastinum: Moderate hiatal hernia. Heart: Coronary calcifications. Pacemaker leads. Cardiomegaly. ABDOMEN: Liver: Unremarkable. No mass. Gallbladder and bile ducts: Cholecystectomy. No ductal dilation. Pancreas: Unremarkable. No mass. No ductal dilation. Spleen: 2 splenic low-density lesions. Larger 1.7 splenic cystic lesion stable since 2022. The smaller subcentimeter lesion stable since 2015. Adrenals: Unremarkable. No mass. Kidneys and ureters: Simple bilateral renal cysts. No follow-up of these simple cysts is necessary. Nonobstructing right renal calculus. No hydronephrosis. Stomach and bowel: Colonic diverticulosis. Heterogeneous contents throughout the colon with some fluid levels. No bowel loop dilation. No obstruction. No mucosal thickening. PELVIS: Appendix: Normal appendix. Bladder: Kingston catheter in decompressed urinary bladder. Reproductive: Unremarkable as visualized. ABDOMEN and PELVIS: Intraperitoneal space: Unremarkable. No free air. No significant fluid collection. Bones/joints: No acute fracture. No dislocation. Soft tissues: Right inguinal postoperative changes. Small portion of the bladder extends within a right inguinal hernia. Stable appearance. Vasculature: Unremarkable. No abdominal aortic aneurysm. Lymph nodes: Unremarkable. No enlarged lymph nodes. IMPRESSION: 1. Small right pleural effusion. Bibasilar atelectasis or consolidation. 2. Moderate hiatal hernia. 3. Colonic diverticulosis. 4. Heterogeneous contents throughout the colon with some fluid levels. Correlate for diarrheal illness. 5. Nonobstructing right renal calculus. 6. Other nonacute findings. Electronically signed by: Khurram Berkowitz M.D. 06/07/24 01:18 AM
--- NOTE | 2024-06-07 05:26 | Electrocardiogram Report ---
Test Reason : Blood Pressure : */* mmHG Vent. Rate : 81 BPM Atrial Rate : 81 BPM P-R Int : * ms QRS Dur : 136 ms QT Int : 462 ms P-R-T Axes : * 133 25 degrees QTcB Int : 536 ms AV dual-paced rhythm Abnormal ECG When compared with ECG of 14-Apr-2024 16:22, Vent. rate has decreased by 19 bpm Confirmed by Marcelino Barkley ([id number]) on 06/07/2024 5:26:13 AM Referred By: Royce Negron Confirmed By: Marcelino Barkley
[2024-06-07 08:34] LABS: Albumin Level 3.4 gm/dl (3.4-5.0); Bilirubin,Total 0.6 mg/dl (0.2-1.0); Calcium 8.4 mg/dl (8.6-10.3); Magnesium 2.1 mg/dl (1.7-2.4); Potassium 4.1 mmol/L (3.5-5.1)
[2024-06-07 08:40] LABS: BUN Creatinine Ratio 24.6 (10-20); Creatinine Clr Calc Pharmacy 57.9 ml/min; Globulin 3.4 gm/dl (2.5-4.0); Total Protein 6.8 gm/dl (6.0-8.3)
[2024-06-07 09:57] LABS: Basophils # (auto) 0.02 K/uL (0.00-0.20); Basophils % (auto) 0.1 %; Eosinophils # (auto) 0.28 K/uL (0.00-0.50); Hematocrit (blood only) 38.2 % (42.0-52.0); Hemoglobin 12.9 g/dl (14.0-18.0); Immature Granulocytes % (auto) 0.7 %; Lymphocytes # (auto) 2.02 K/uL (1.20-3.40); Lymphocytes % (auto) 14.1 %; Mean Corpuscular Hemoglobin 29.4 pg (25.0-34.0); Mean Corpuscular Hgb Conc 33.8 g/dL (32.0-36.0); Mean Platelet Volume 10.5 fL (9.4-12.4); Monocytes # (auto) 0.58 K/uL (0.11-0.59); Monocytes % (auto) 4.1 %; Neutrophils # (auto) 11.32 K/uL (1.40-6.50); Platelet Count 291 K/uL (130-400); RDW Coefficient of Variation 14.3 % (11.5-14.5); RDW Standard Deviation 45.9 fL (36.4-46.3); Red Blood Count 4.39 M/uL (4.70-6.10); White Blood Count 14.32 K/ul (4.8-10.8)
[2024-06-07] MEDS: REMDESIVIR 100 MG in SODIUM CHLORIDE 0.9% 230 ML IV SCH (14:58)
--- NOTE | 2024-06-07 17:26 | Hospitalist Progress Note ---
Date of Service June 07, 2024 Assessment & Plan (1) COVID-19: Plan: tested + for such upon admission he likely developed COVID-19 symptoms over this past weekend I cannot exclude that some of his CXR findings aren't from COVID itself (or a bacterial superinfection) IV Remdesivir x 3 days today is day #2 IV ertapenem will cover for the potential of bacterial superinfection LFTS wnl cont airborne precautions if any worsening with respiratory status --> dexamethasone plan repeat cxr in am tomorrow (2) Catheter-associated urinary tract infection: Plan: technically speaking this is UTI due to intermittent self catheterization at home, a complication of care 2nd to klebsiella cont IV ertapenem for now but can likely narrow tomorrow pending his cxr results (3) Acute on chronic systolic heart failure: Plan: EF 25-30% on echo 11/2023 multiple wall motion abnormalities c/w ischemic cardiomyopathy clinically/radiographically volume overloaded at admission has been diuresed w/ bumex creatinine chele mildly this am, and UOP on day shift today <700cc he looks fairly euvolemic today thus will not give 2nd dose of bumex this afternoon cont coreg BID hold Entresto for now BMP in am (4) Abdominal distension: Plan: resolved CT a/p with decent amount of colonic stool but no ileus or SBO pain/tenderness relieved with having BM overnight cont bowel maintenance (5) PAT (paroxysmal atrial tachycardia): Plan: s/p ablation procedure at [facility] last week by report was successful pacing on monitor here (6) Paroxysmal atrial fibrillation: Plan: history of cont Eliquis cont coreg pacing on monitor (7) Parkinsonism: Plan: cont pramipexole (8) BPH loc w urin obs/LUTS: Plan: cont finasteride patient self-caths at home every 48 hours to maintain patency of urethra ray now in place (9) Presence of combination internal cardiac defibrillator (ICD) and pacemaker: Plan: follows in [facility] [place] Device clinic pacing on monitor (10) Sleep apnea: Plan: BiPAP per home parameters (11/01) with back-up rate of 18 breaths/min per sleep study report (11) CAD (coronary artery disease): Plan: no ischemic symptoms at this time cont asa cont statin cont coreg Plan PT/OT evals completed -- needs rehab post-d/c updated by phone this evening once again did discuss that therapy is recommending rehab Admission and Anticipated Discharge Date Admission Date: June 05, 2024 Subjective had bowel movement late last pm and this helped his GI symptoms no nausea today bloating is better appetite improved mild cough with some sputum production no dyspnea at rest does endorse fatigue no pain b/l groin tele - pacing patient states he only self-caths about every 48 hours at home this is to maintain patency of his urethra Review of Systems Review of Systems: gen - no fevers or chills cv - no chest pain pulm - no wheezing, no dyspnea at rest Physical Exam Physical Exam: gen - NAD, sitting in chair, looks better today neck - no JVD sitting upright at 90 degrees mouth - MMM heart - RRR, s1 s2, no murmur lungs - decreased BS bases but improved airation today; no rales or wheezes today; no increased work of breathing abd - distension improved, nontender, BS+, no HSM neuro - mild tremor noted ext - pulses b/l feet 2+, trace edema b/l feet/ankles skin - b/l groin sites clean, optifoams in place, no hematoma; NO skin ulcers on feet b/l Results & Data Results & Data Vital Signs (Past 12 Hours) Vital Signs Temp Pulse Pulse Resp BP Pulse Ox Pulse Ox 06/07/24 17:00 36.9 C 82 18 107/67 94 06/07/24 15:34 94 06/07/24 15:24 82 06/07/24 13:00 84 06/07/24 12:11 36.5 C 80 18 103/67 94 06/07/24 09:25 70 101/89 06/07/24 08:00 06/07/24 07:54 36.8 C 87 19 107/70 90 Pulse Ox O2 Del Method O2 Flow Rate O2 Flow Rate O2 Flow Rate 06/07/24 17:00 Nasal Cannula 1 06/07/24 15:34 90 2 0 06/07/24 15:24 06/07/24 13:00 06/07/24 12:11 Nasal Cannula 1.5 06/07/24 09:25 06/07/24 08:00 Nasal Cannula 2 06/07/24 07:54 Room Air Laboratory Results Laboratory Results - last 24 hr 06/07/24 06/07/24 07:56 09:27 WBC Cancelled 14.32 H RBC Cancelled 4.39 L Hgb Cancelled 12.9 L Hct Cancelled 38.2 L MCV Cancelled 87.0 MCH Cancelled 29.4 MCHC Cancelled 33.8 RDW Std Deviation Cancelled 45.9 RDW Coeff of Jerry Cancelled 14.3 Plt Count Cancelled 291 MPV Cancelled 10.5 Immature Gran % (Auto) Cancelled 0.7 Neut % (Auto) Cancelled 79.0 Lymph % (Auto) Cancelled 14.1 [place] % (Auto) Cancelled 4.1 Eos % (Auto) Cancelled 2.0 Baso % (Auto) Cancelled 0.1 Neut # (Auto) Cancelled 11.32 H Lymph # (Auto) Cancelled 2.02 [place] # (Auto) Cancelled 0.58 Eos # (Auto) Cancelled 0.28 Baso # (Auto) Cancelled 0.02 Immature Gran # (Auto) Cancelled 0.10 Absolute Nucleated RBC Cancelled Nucleated RBC % (auto) Cancelled Neutrophils % (Manual) Cancelled Band Neutrophils % Cancelled Lymphocytes % (Manual) Cancelled Prolymphocyte % Cancelled Reactive Lymphs % (Man) Cancelled Monocytes % (Manual) Cancelled Eosinophils % (Manual) Cancelled Basophils % (Manual) Cancelled Metamyelocytes % (Man) Cancelled Myelocytes % (Man) Cancelled Promyelocytes % (Man) Cancelled Blast Cells % (Manual) Cancelled Plasma Cell % (Manual) Cancelled Other Cells % Cancelled Nucleated RBC % Cancelled Neutrophils # (Manual) Cancelled Band Neutrophils # Cancelled Total Absolute Neuts Cancelled Lymphocytes # (Manual) Cancelled Prolymphocyte # Cancelled Reactive Lymphs # Cancelled Total Abs Lymphocytes Cancelled Monocytes # (Manual) Cancelled Eosinophils # (Manual) Cancelled Basophils # (Manual) Cancelled Metamyelocytes # (Man) Cancelled Myelocytes # (Manual) Cancelled Promyelocytes # (Man) Cancelled Blast Cells # (Man) Cancelled Plasma Cell # (Manual) Cancelled Other Cells # Cancelled Nucleated RBCs # (Man) Cancelled Hypersegmented Neuts Cancelled Hyposegmented Neuts Cancelled Hypogranular Neuts Cancelled Large Granular Lymphs Cancelled # Lrg Granular Lymphs Cancelled Hairy Cells Cancelled Smudge Cells Cancelled Toxic Granulation Cancelled Toxic Vacuolation Cancelled Dohle Bodies Cancelled Sumanth Rods Cancelled Platelet Estimate Cancelled Hypogranular Platelets Cancelled Giant Platelets Cancelled Platelet Satelliting Cancelled RBC Morphology Cancelled Polychromasia Cancelled Hypochromasia Cancelled Poikilocytosis Cancelled Basophilic Stippling Cancelled Anisocytosis Cancelled Microcytosis Cancelled Macrocytosis Cancelled Spherocytes Cancelled Pappenheimer Bodies Cancelled Sickle Cells Cancelled Target Cells Cancelled Tear Drop Cells Cancelled Ovalocytes Cancelled Stomatocytes Cancelled Raphael-Bolivar Bodies Cancelled Echinocytes Cancelled Acanthocytes (Spur) Cancelled Rouleaux Cancelled RBC Agglutinates Cancelled Schistocytes Cancelled Sezary Cell Cancelled Sodium 133 L Potassium 4.1 Chloride 99 Carbon Dioxide 24 Anion Gap 10 BUN 32 H Creatinine 1.30 Est Cr Clr Drug Dosing 57.9 eGFR 55.88 BUN/Creatinine Ratio 24.6 H Glucose 110 H Calcium 8.4 L Magnesium 2.1 Total Bilirubin 0.6 D AST 17 ALT 16 Alkaline Phosphatase 44 Total Protein 6.8 Albumin 3.4 Globulin 3.4 Albumin/Globulin Ratio 1.0 Diagnostic Findings Microbiology 06/05/24 18:35 Urine,Clean Catch Urine Culture - Final Klebsiella pneumoniae PG Care Time/CCT Total # of Minutes Spent Total Time Spent with Patient: Total time spent is greater than 50% in coordination of care (as documented) at patient's floor/unit and/or counseling patient: Coding Level of Care Code 07982 SUB INP/OBS CARE 3/50MIN Diagnoses COVID-19 U07.1 Catheter-associated urinary tract infection T83.511A; N39.0 Acute on chronic systolic heart failure I50.23 Abdominal distension R14.0 PAT (paroxysmal atrial tachycardia) I47.19 Paroxysmal atrial fibrillation I48.0 Parkinsonism G20.C BPH loc w urin obs/LUTS N40.1 Presence of combination internal cardiac defibrillator (ICD) and pacemaker Z95.810 Sleep apnea G47.30 CAD (coronary artery disease) I25.10
--- NOTE | 2024-06-08 08:29 | XRay Report ---
EXAM: XR chest 1V portable CLINICAL HISTORY: CHF vs pneumonia TECHNIQUE: X-ray image of the chest is obtained in AP projection. COMPARISON: 06/06/2024 CR. FINDINGS: Pulmonary Parenchyma: Homogeneous opacification seen in the left lower hemithorax extending along the left lateral chest wall obliterating left costophrenic angle and hemidiaphragm. These findings are likely due to pleural effusion with underlying consolidation/collapse. Faint opacity is seen in right lower zone. Elevation of the left hemidiaphragm. Multiple tubes seen overlying the chest. Heart and Mediastinum: Heart size and shape are normal. No mediastinal widening or masses. No hilar or mediastinal lymphadenopathy. Multiple leads Cardiac pacemaker device seen on left side. Bony Thorax: Bony thorax appears intact without fractures or deformities. Soft Tissues: Soft tissues overlying the chest wall are unremarkable. IMPRESSION: 1. Moderate left-sided pleural effusion with underlying collapse/consolidation. 2. Clinical lab correlation and follow-up chest x-ray is advised. 3. No definite interval changes. Electronically signed by Jacqueline Shay 06-08-2024 08:28 AM
[2024-06-08 10:42] LABS: Basophils # (auto) 0.03 K/uL (0.00-0.20); Basophils % (auto) 0.3 %; Eosinophils # (auto) 0.37 K/uL (0.00-0.50); Eosinophils % (auto) 3.9 %; Hematocrit (blood only) 36.3 % (42.0-52.0); Immature Granulocytes # (auto) 0.07 K/uL (0.01-0.20); Immature Granulocytes % (auto) 0.7 %; Lymphocytes # (auto) 1.89 K/uL (1.20-3.40); Lymphocytes % (auto) 19.8 %; Mean Corpuscular Hemoglobin 29.1 pg (25.0-34.0); Mean Corpuscular Hgb Conc 33.1 g/dL (32.0-36.0); Mean Corpuscular Volume 88.1 fL (80.0-100.0); Mean Platelet Volume 10.6 fL (9.4-12.4); Monocytes # (auto) 0.62 K/uL (0.11-0.59); Monocytes % (auto) 6.5 %; Neutrophils # (auto) 6.56 K/uL (1.40-6.50); Neutrophils % (auto) 68.8 %; Platelet Count 292 K/uL (130-400); RDW Coefficient of Variation 14.1 % (11.5-14.5); RDW Standard Deviation 45.2 fL (36.4-46.3); Red Blood Count 4.12 M/uL (4.70-6.10); White Blood Count 9.54 K/ul (4.8-10.8)
[2024-06-08 10:58] LABS: BUN Creatinine Ratio 29.2 (10-20); Calcium 8.4 mg/dl (8.6-10.3); Creatinine Clr Calc Pharmacy 62.4 ml/min; Potassium 3.9 mmol/L (3.5-5.1)
[2024-06-08] MEDS: BUMETANIDE 1 MG in SYRINGE 0 ML IV ONE (12:35)
--- NOTE | 2024-06-08 13:28 | Cardiology Progress Note ---
Date of Service June 08, 2024 Assessment & Plan (1) Acute on chronic systolic heart failure: Plan: He seems to be near euvolemic although the pulmonary exam is somewhat limited. A bit more diuresis and then I think from a heart failure standpoint he will be fine. It also seems that he is improving from the COVID infection thankfully given his poor health to begin with. Strongly agree that when he is over the UTI he will need physical therapy/rehab. At that point he should be back on his chronic heart failure regimen with Bumex, carvedilol, Entresto, and the potassium supplementation. (2) Paroxysmal atrial fibrillation: Plan: Patient also with PAT which was not well-controlled using medications. Referred for EP evaluation and ablation at [facility] which occurred at the end of April. Unfortunately I do not have the ablation report but the intention was for him to undergo A-fib and atrial tachycardia ablation. At this point I would keep him on his Eliquis 5 mg p.o. twice daily and the low-dose aspirin. I will await the [facility] electrophysiology note to see if they planned long-term anticoagulation or if this is something that could be discontinued. I suspect he will need long-term anticoagulation. Plan I would recommend that the patient see me within 2 to 4 weeks after he is discharged from physical therapy. He could not recall when his next cardiology appointment was so this should be arranged at discharge. Admission and Anticipated Discharge Date Admission Date: June 05, 2024 Subjective I stop by to see the patient in his room. 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 He recently underwent A-fib ablation at [facility] and was subsequently discharged. However, he was having a lot of shortness of breath and weight gain. Found to have acute congestive heart failure as well as COVID- 19 infection plus UTI. He does self cath. Today he tells me he is feeling a little bit better. Not quite as tired, improved breathing, no chest pain or tightness. His is not present today although she often visits at least once per day weather permitting. I have reviewed the notes by the hospitalist. Review of Systems Review of Systems: Negative except as per HPI Physical Exam Constitutional: Obese, elderly, chronically ill-appearing Neck: No JVD Respiratory: Chronic diminished air movement. I do not appreciate any crackles, wheezing, or rhonchi today. Cardiovascular: Regular rate. Systolic murmur. No lower extremity edema today. Neurologic: Cognition is intact. Speech is fluent. Diminished hearing. Chronic motor deficits unchanged. Psychiatric: A+Ox3, euthymic affect Results & Data Vital Signs (Past 12 Hours) Vital Signs Temp Pulse Pulse Resp BP Pulse Ox O2 Del Method 06/08/24 11:25 37.0 C 80 18 100/68 94 Nasal Cannula 06/08/24 08:40 36.4 C L 88 18 112/64 91 Nasal Cannula 06/08/24 08:15 Nasal Cannula 06/08/24 07:00 73 06/08/24 03:24 36.9 C 81 18 106/70 97 CPAP 06/08/24 02:30 81 30 H 96 O2 Flow Rate 06/08/24 11:25 1 06/08/24 08:40 1 06/08/24 08:15 1 06/08/24 07:00 06/08/24 03:24 06/08/24 02:30 2 PG Care Time/CCT Total # of Minutes Spent Total Time Spent with Patient: Total time spent is greater than 50% in coordination of care (as documented) at patient's floor/unit and/or counseling patient: Coding Level of Care Code 75954 SUB INP/OBS CARE 2/35MIN Diagnoses Acute on chronic systolic heart failure I50.23 Paroxysmal atrial fibrillation I48.0
--- NOTE | 2024-06-08 17:11 | Hospitalist Progress Note ---
Date of Service June 08, 2024 Assessment & Plan (1) COVID-19: Plan: tested + for such upon admission he likely developed COVID-19 symptoms over this past weekend I cannot exclude that some of his CXR findings aren't from COVID itself (or a bacterial superinfection) IV Remdesivir x 3 days today is day #3 IV ertapenem will cover for the potential of bacterial superinfection LFTS wnl cont airborne precautions if any worsening with respiratory status --> dexamethasone repeat cxr today is stable (2) Catheter-associated urinary tract infection: Plan: technically speaking this is UTI due to intermittent self catheterization at home, a complication of care 2nd to klebsiella cont IV ertapenem may be able to transition to PO abx soon was on [facility] day #1 thus, today is day #4 of effective abx therapy plan 7 days in duration (3) Acute on chronic systolic heart failure: Plan: EF 25-30% on echo 11/2023 multiple wall motion abnormalities c/w ischemic cardiomyopathy clinically/radiographically volume overloaded at admission has been diuresed w/ bumex cont coreg BID hold Entresto for now give another dose of bumex today BMP in am (4) Abdominal distension: Plan: resolved CT a/p with decent amount of colonic stool but no ileus or SBO having some diarrhea - at risk of c diff - will check for such (5) PAT (paroxysmal atrial tachycardia): Plan: s/p ablation procedure at [facility] last week by report was successful pacing on monitor here (6) Paroxysmal atrial fibrillation: Plan: history of cont Eliquis cont coreg pacing on monitor (7) Parkinsonism: Plan: cont pramipexole (8) BPH loc w urin obs/LUTS: Plan: cont finasteride patient self-caths at home every 48 hours to maintain patency of urethra ray now in place (9) Presence of combination internal cardiac defibrillator (ICD) and pacemaker: Plan: follows in [facility] Device clinic pacing on monitor (10) Sleep apnea: Plan: BiPAP per home parameters (11/01) with back-up rate of 18 breaths/min per sleep study report (11) CAD (coronary artery disease): Plan: no ischemic symptoms at this time cont asa cont statin cont coreg appreciate Dr Negron's input Plan PT/OT evals completed -- needs rehab post-d/c, but patient declining such - wants to go home updated by phone 06/07 did discuss during that phone call that therapy was recommending rehab Admission and Anticipated Discharge Date Admission Date: June 05, 2024 Subjective patient sitting in chair watching TV reports "a little shortness of breath" today and mild cough eating fair some diarrhea - per staff the stool is mucous no abd pain or N/V no interest in going to rehab wants home with home health/home therapies tele - pacing Review of Systems Review of Systems: cv - no cp pulm - no wheezing GI - no abd pain Physical Exam Physical Exam: gen - NAD, sitting in chair, looks good neck - no JVD sitting upright at 90 degrees mouth - MMM heart - RRR, s1 s2, no murmur lungs - CTA b/l, mildly decreased BS bases, no increased work of breathing abd - mild distension, nontender, BS+, no HSM neuro - mild tremor noted ext - pulses b/l feet 2+, no edema b/l feet/ankles skin - b/l groin sites clean, optifoams in place, no hematoma; NO skin ulcers on feet b/l Results & Data Results & Data Vital Signs (Past 12 Hours) Vital Signs Temp Pulse Pulse Resp BP Pulse Ox O2 Del Method 06/08/24 15:26 36.6 C 81 19 95/61 L 92 Room Air 06/08/24 14:00 86 06/08/24 11:25 37.0 C 80 18 100/68 94 Nasal Cannula 06/08/24 08:40 36.4 C L 88 18 112/64 91 Nasal Cannula 06/08/24 08:15 Nasal Cannula 06/08/24 07:00 73 O2 Flow Rate 06/08/24 15:26 06/08/24 14:00 06/08/24 11:25 1 06/08/24 08:40 1 06/08/24 08:15 1 06/08/24 07:00 Laboratory Results Laboratory Results - last 24 hr 06/08/24 10:10 WBC 9.54 RBC 4.12 L Hgb 12.0 L Hct 36.3 L MCV 88.1 MCH 29.1 MCHC 33.1 RDW Std Deviation 45.2 RDW Coeff of Jerry 14.1 Plt Count 292 MPV 10.6 Immature Gran % (Auto) 0.7 Neut % (Auto) 68.8 Lymph % (Auto) 19.8 [place] % (Auto) 6.5 Eos % (Auto) 3.9 Baso % (Auto) 0.3 Neut # (Auto) 6.56 H Lymph # (Auto) 1.89 [place] # (Auto) 0.62 H Eos # (Auto) 0.37 Baso # (Auto) 0.03 Immature Gran # (Auto) 0.07 Sodium 133 L Potassium 3.9 Chloride 102 Carbon Dioxide 24 Anion Gap 7 BUN 35 H Creatinine 1.20 Est Cr Clr Drug Dosing 62.4 eGFR 61.52 BUN/Creatinine Ratio 29.2 H Glucose 132 H Calcium 8.4 L AST 18 ALT 20 Diagnostic Findings Chest X-Ray 06/08/24 07:00 EXAM: XR chest 1V portable CLINICAL HISTORY: CHF vs pneumonia TECHNIQUE: X-ray image of the chest is obtained in AP projection. COMPARISON: 06/06/2024 CR. FINDINGS: Pulmonary Parenchyma: Homogeneous opacification seen in the left lower hemithorax extending along the left lateral chest wall obliterating left costophrenic angle and hemidiaphragm. These findings are likely due to pleural effusion with underlying consolidation/collapse. Faint opacity is seen in right lower zone. Elevation of the left hemidiaphragm. Multiple tubes seen overlying the chest. Heart and Mediastinum: Heart size and shape are normal. No mediastinal widening or masses. No hilar or mediastinal lymphadenopathy. Multiple leads Cardiac pacemaker device seen on left side. Bony Thorax: Bony thorax appears intact without fractures or deformities. Soft Tissues: Soft tissues overlying the chest wall are unremarkable. IMPRESSION: 1. Moderate left-sided pleural effusion with underlying collapse/consolidation. 2. Clinical lab correlation and follow-up chest x-ray is advised. 3. No definite interval changes. Electronically signed by Jacqueline Shay 06-08-2024 08:28 AM PG Care Time/CCT Total # of Minutes Spent Total Time Spent with Patient: Total time spent is greater than 50% in coordination of care (as documented) at patient's floor/unit and/or counseling patient: Coding Level of Care Code 82572 SUB INP/OBS CARE 2/35MIN Diagnoses COVID-19 U07.1 Catheter-associated urinary tract infection T83.511A; N39.0 Acute on chronic systolic heart failure I50.23 Abdominal distension R14.0 PAT (paroxysmal atrial tachycardia) I47.19 Paroxysmal atrial fibrillation I48.0 Parkinsonism G20.C BPH loc w urin obs/LUTS N40.1 Presence of combination internal cardiac defibrillator (ICD) and pacemaker Z95.810 Sleep apnea G47.30 CAD (coronary artery disease) I25.10
[2024-06-09 08:15] LABS: Calcium 8.3 mg/dl (8.6-10.3)
[2024-06-09 08:21] LABS: BUN Creatinine Ratio 30.4 (10-20); Creatinine Clr Calc Pharmacy 73.7 ml/min
[2024-06-09] MEDS: BUMETANIDE 1 MG TAB PO SCH (09:49)
--- NOTE | 2024-06-09 18:20 | Hospitalist Progress Note ---
Date of Service June 09, 2024 Assessment & Plan (1) COVID-19: Plan: tested + for such upon admission he likely developed COVID-19 symptoms last weekend I cannot exclude that some of his CXR findings weren't from COVID itself (or a bacterial superinfection) s/p IV Remdesivir x 3 days - completed IV ertapenem will cover for the potential of bacterial superinfection LFTS wnl cont airborne precautions if any worsening with respiratory status --> dexamethasone (2) Catheter-associated urinary tract infection: Plan: technically speaking this is UTI due to intermittent self catheterization at home, a complication of care 2nd to klebsiella cont IV ertapenem may be able to transition to PO abx soon was on [facility] day #1 thus, today is day #5 of effective abx therapy plan 7 days in duration (3) Acute on chronic systolic heart failure: Plan: EF 25-30% on echo 11/2023 multiple wall motion abnormalities c/w ischemic cardiomyopathy clinically/radiographically volume overloaded at admission has been diuresed w/ bumex and appears euvolemic today cont coreg BID hold Entresto for now but resume this weekend hopefully resume typical bumex dosing of 1mg daily BMP in am (4) Abdominal distension: Plan: resolved CT a/p with decent amount of colonic stool but no ileus or SBO had had some diarrhea - now resolved; normal BM this am (5) PAT (paroxysmal atrial tachycardia): Plan: s/p ablation procedure at [facility] last week by report was successful pacing on monitor here (6) Paroxysmal atrial fibrillation: Plan: history of cont Eliquis cont coreg pacing on monitor (7) Parkinsonism: Plan: cont pramipexole (8) BPH loc w urin obs/LUTS: Plan: cont finasteride patient self-caths at home every 48 hours to maintain patency of urethra ray now in place remove ray tomorrow AM, trial of void at that time (9) Presence of combination internal cardiac defibrillator (ICD) and pacemaker: Plan: follows in [facility] Device clinic pacing on monitor (10) Sleep apnea: Plan: BiPAP per home parameters (11/01) with back-up rate of 18 breaths/min per sleep study report (11) CAD (coronary artery disease): Plan: no ischemic symptoms at this time cont asa cont statin cont coreg appreciate Dr Jamil's input Plan PT/OT coco completed -- needs rehab post-d/c, but patient consistently declining such - wants to go home updated by phone 06/07 and again today, 06/09 did discuss again with his we are all recommending inpatient rehab but he is refusing plan for d/c home on 06/11 Admission and Anticipated Discharge Date Admission Date: June 05, 2024 Subjective o2 weaned off per staff had soft, normal BM this am no nausea/emesis eating fair-good still some cough with sputum but improved no dyspnea still weak, but adamant on returning home rather than going to rehab worked with PT - only walked 20 feet during the session; he has 50 feet to ambulate at home tele - pacing Review of Systems Review of Systems: gen - no fevers or chills cv - no chest pain pulm - no wheezing GI - no abd pain; some bloating still Physical Exam Physical Exam: gen - NAD, sitting in chair, looks very good today neck - no JVD mouth - MMM heart - RRR, s1 s2, no murmur lungs - CTA b/l abd - soft, nontender, BS+, no HSM neuro - mild tremor noted ext - pulses b/l feet 2+, no edema b/l feet/ankles Results & Data Results & Data Vital Signs (Past 12 Hours) Vital Signs Temp Pulse Pulse Resp BP Pulse Ox O2 Del Method 06/09/24 17:35 102/64 06/09/24 15:11 36.3 C L 81 19 96/57 L 95 Room Air 06/09/24 14:32 80 06/09/24 12:25 101/67 06/09/24 10:52 36.4 C L 79 19 92/55 L 94 Room Air 06/09/24 10:18 80 06/09/24 08:45 Room Air 06/09/24 07:44 36.6 C 84 19 113/70 95 Room Air Laboratory Results Laboratory Results - last 24 hr 06/09/24 07:07 Sodium 131 L Potassium 4.0 Chloride 103 Carbon Dioxide 20 L Anion Gap 8 BUN 31 H Creatinine 1.02 Est Cr Clr Drug Dosing 73.7 eGFR 74.76 BUN/Creatinine Ratio 30.4 H Glucose 95 Calcium 8.3 L AST 17 ALT 18 PG Care Time/CCT Total # of Minutes Spent Total Time Spent with Patient: Total time spent is greater than 50% in coordination of care (as documented) at patient's floor/unit and/or counseling patient: Coding Level of Care Code 74031 SUB INP/OBS CARE 3/50MIN Diagnoses COVID-19 U07.1 Catheter-associated urinary tract infection T83.511A; N39.0 Acute on chronic systolic heart failure I50.23 Abdominal distension R14.0 PAT (paroxysmal atrial tachycardia) I47.19 Paroxysmal atrial fibrillation I48.0 Parkinsonism G20.C BPH loc w urin obs/LUTS N40.1 Presence of combination internal cardiac defibrillator (ICD) and pacemaker Z95.810 Sleep apnea G47.30 CAD (coronary artery disease) I25.10
[2024-06-10] MEDS: ONDANSETRON INJ 2 MG/ML 2 ML VIAL IV PRN (00:37)
[2024-06-10 07:42] LABS: BUN Creatinine Ratio 26.9 (10-20); Calcium 8.5 mg/dl (8.6-10.3); Creatinine Clr Calc Pharmacy 71.7 ml/min; Potassium 4.3 mmol/L (3.5-5.1)
[2024-06-10 07:53] LABS: Folate (Folic Acid),Ser orPlas 17.63 ng/ml (>5.38)
[2024-06-10 08:02] LABS: Ferritin 472.3 ng/ml (8-388)
--- NOTE | 2024-06-10 18:50 | Hospitalist Progress Note ---
Date of Service June 10, 2024 Assessment & Plan (1) COVID-19: Plan: tested + for such upon admission he likely developed COVID-19 symptoms about a week ago I cannot exclude that some of his CXR findings weren't from COVID itself (or a bacterial superinfection) s/p IV Remdesivir x 3 days - completed IV ertapenem will cover for the potential of bacterial superinfection LFTS wnl cont airborne precautions (2) Catheter-associated urinary tract infection: Plan: technically speaking this is UTI due to intermittent self catheterization at home, a complication of care 2nd to klebsiella cont IV ertapenem may be able to transition to PO abx soon was on [facility] day #1 thus, today is day #6 of effective abx therapy plan 7 days in duration (3) Acute on chronic systolic heart failure: Plan: EF 25-30% on echo 11/2023 multiple wall motion abnormalities c/w ischemic cardiomyopathy clinically/radiographically volume overloaded at admission has been diuresed w/ bumex and appears euvolemic once again today cont coreg BID hold Entresto for now but resume this weekend hopefully cont bumex 1mg daily BMP in am (4) Abdominal distension: Plan: resolved CT a/p with decent amount of colonic stool but no ileus or SBO had had some diarrhea - now resolved; normal BM again today (5) PAT (paroxysmal atrial tachycardia): Plan: s/p ablation procedure at [facility] last week by report was successful pacing on monitor here (6) Paroxysmal atrial fibrillation: Plan: history of cont Eliquis cont coreg pacing on monitor (7) Parkinsonism: Plan: cont pramipexole (8) BPH loc w urin obs/LUTS: Plan: cont finasteride patient self-caths at home every 48 hours to maintain patency of urethra ray now in place remove ray today (9) Presence of combination internal cardiac defibrillator (ICD) and pacemaker: Plan: follows in [facility] Device clinic pacing on monitor (10) Sleep apnea: Plan: BiPAP per home parameters (11/01) with back-up rate of 18 breaths/min per sleep study report (11) CAD (coronary artery disease): Plan: no ischemic symptoms at this time cont asa cont statin cont coreg Plan PT/OT evals completed -- needs rehab post-d/c, but patient consistently declining such - wants to go home updated by phone 06/07, 06/09, and today 06/10 did discuss again with his we are all recommending inpatient rehab but he is declining such plan for d/c home on 06/11 Admission and Anticipated Discharge Date Admission Date: June 05, 2024 Subjective no new events tele - pacing feels good appetite improving each day soft BM today - no diarrhea no dyspnea minimal cough got OOB to chair today - strength improving Review of Systems Review of Systems: gen - no fevers or chills cv - no chest pain GI - no N/V Physical Exam Physical Exam: gen - NAD, sitting in chair, looks well neck - no JVD mouth - MMM heart - RRR, s1 s2, no murmur lungs - CTA b/l, minimal decreased BS bases abd - soft, nontender, BS+, no HSM, minimally distended neuro - mild tremor noted ext - pulses b/l feet 2+, no edema b/l feet/ankles Results & Data Results & Data Vital Signs (Past 12 Hours) Vital Signs Temp Pulse Resp BP Pulse Ox O2 Del Method 06/10/24 11:41 36.4 C L 80 20 96/67 L 93 Room Air 06/10/24 08:35 36.4 C L 87 20 109/72 90 Room Air Laboratory Results Laboratory Results - last 24 hr 06/10/24 06:56 Sodium 132 L Potassium 4.3 Chloride 100 Carbon Dioxide 24 Anion Gap 8 BUN 28 H Creatinine 1.04 Est Cr Clr Drug Dosing 71.7 eGFR 73.04 BUN/Creatinine Ratio 26.9 H Glucose 95 Calcium 8.5 L Iron 58 TIBC 298 Transferrin 213 Transferrin % Sat 19 L Ferritin 472.3 H Vitamin B12 1107 H Folate 17.63 PG Care Time/CCT Total # of Minutes Spent Total Time Spent with Patient: Total time spent is greater than 50% in coordination of care (as documented) at patient's floor/unit and/or counseling patient: Coding Level of Care Code 83049 SUB INP/OBS CARE MIN Diagnoses COVID-19 U07.1 Catheter-associated urinary tract infection T83.511A; N39.0 Acute on chronic systolic heart failure I50.23 Abdominal distension R14.0 PAT (paroxysmal atrial tachycardia) I47.19 Paroxysmal atrial fibrillation I48.0 Parkinsonism G20.C BPH loc w urin obs/LUTS N40.1 Presence of combination internal cardiac defibrillator (ICD) and pacemaker Z95.810 Sleep apnea G47.30 CAD (coronary artery disease) I25.10
[2024-06-11 05:12] VITALS: O2SAT 94
[2024-06-11 07:44] VITALS: BP 104/76; RESP 18; TEMP 98.4
[2024-06-11 09:17] LABS: BUN Creatinine Ratio 24.3 (10-20); Calcium 8.8 mg/dl (8.6-10.3); Creatinine Clr Calc Pharmacy 72.4 ml/min; Potassium 4.2 mmol/L (3.5-5.1)
--- NOTE | 2024-06-11 12:57 | Discharge Summary ---
Discharge Summary Date of Service date of admission - June 05, 2024 date of discharge - June 11, 2024 Principal Dx & Hospital Course #1 = Principal Diagnosis (1) COVID-19: tested + for such upon admission it was possible that some of his CXR findings were from COVID itself (or a bacterial superinfection) s/p IV Remdesivir x 3 days while here he did not receive IV steroids while here IV ertapenem - used for his UTI - provided coverage for the potential of bacterial superinfection LFTS wnl during the hospitalization O2 requirement resolved well before discharge by time of transition home he was feeling much better & had minimal pulmonary symptoms he will take 1 dose of PO Levaquin the day after hospital discharge to complete 7 days of antibiotic therapy (2) Pneumonia: either 2nd to COVID-19 infection and/or bacterial superinfection s/p Remdesivir x 3 days s/p IV antibiotics x 6 days while hospitalized, with 1 day of oral antibiotic therapy upon transition home required small amount of NC O2 during the first portion of the stay, then weaned off by the AM of 06/09/24 remained stable in room air until discharge home (3) Catheter-associated urinary tract infection: technically speaking this was UTI due to intermittent self catheterization at home 2nd to klebsiella was on cipro IV hospital day #1, then received IV ertapenem for the remainder of the stay he will take 1 dose of PO levaquin the day after hospital discharge to complete 7 days in total of antibiotic therapy for his UTI ray catheter was removed on 06/10/24 he was voiding spontaneously until discharge bladder scan on day of discharge showed PVR of ~100cc he has been self-cathing every other day at home to maintain patency of the urethra he will continue this as previous (4) Acute on chronic systolic heart failure: EF 25-30% on echo 11/2023 multiple wall motion abnormalities c/w ischemic cardiomyopathy clinically/radiographically volume overloaded at time of admission was diuresed w/ bumex and appeared euvolemic before discharge home cont coreg BID cont bumex 1mg daily BPs were low-normal for much of the stay and thus Entresto was placed on hold he was asked to continue holding such upon transition home hopefully this can resumed in the near-future daily weights, fluid/salt restriction, etc discussed (5) Abdominal distension: resolved after having had multiple bowel movements CT abd/pelvis with copious amounts of colonic stool; no ileus or SBO (6) PAT (paroxysmal atrial tachycardia): s/p ablation procedure at [facility] the week prior to this admission during his entire stay here he was pacing on monitor access sites in the groin from his ablation procedure were clean/intact & by discharge were fully healed no specific Rx needed of the groin sites upon discharge home (7) Paroxysmal atrial fibrillation: history of such; none seen on monitoring while hospitalized cont Eliquis cont coreg (8) Parkinsonism: cont pramipexole (9) BPH loc w urin obs/LUTS: cont finasteride patient self-caths at home every 48 hours to maintain patency of urethra had ray much of the stay was discontinued 24 hours prior to discharge home was voiding spontaneously PVR ~100cc (10) Presence of combination internal cardiac defibrillator (ICD) and pacemaker: follows in [facility] pacing on monitor (11) Sleep apnea: BiPAP per home parameters (11/01) with back-up rate of 18 breaths/min per sleep study report (12) CAD (coronary artery disease): no ischemic symptoms at any time while hospitalized cont asa cont statin cont coreg Plan PT/OT evals completed -- rehab post-d/c strongly recommended, but patient consistently declined such, asking for discharge to home so that [facility] pt's spouse was made aware that rehab was recommended both he & his were counseled that the transition home may be challenging because of his weakness and the [id number] hospitalizations ([facility], then this admission at [facility]) patient will return home with home PT/OT/nursing Notes For Next Care Provider Medication Changes From Visit HOLD Entresto for now Levaquin x 1 dose on 06/12/24 Nystatin powder TID to groin rash x 1 week Admission HPI Per Admitting Provider The patient is a 79-year-old male with past medical history including history of left heel pressure ulcer, paroxysmal atrial tachycardia status post recent ablation, cardiomyopathy, atrial fibrillation, parkinsonism, emphysema, idiopathic peripheral neuropathy, dyslipidemia, BPH with LUTS, long-term anticoagulation with apixaban, and esophagitis.The patient presents to the emergency department with complaint of worsening shortness of breath, lower extremity edema that was noted by visiting nurse, who has been seeing him after having had ablation at [facility] for paroxysmal atrial tachycardia. He reports taking Lasix as directed, does self-catheterization regularly, has not noticed an increasing frequency of need for urination in spite of increase Lasix. He denies any change in diet, in particular he continues to watch sodium regularly. In the emergency department, he was given bumetanide 1 mg IV, and was referred for evaluation for admission. Troponin was noted to be elevated 54.1, and urinalysis was suggestive of urinary tract infection. Discharge Exam gen - NAD, sitting in chair, looks well neck - no JVD mouth - MMM heart - RRR, s1 s2, no murmur lungs - CTA b/l, minimal decreased BS bases abd - soft, nontender, BS+, no HSM, no distension today neuro - mild tremor noted ext - pulses b/l feet 2+, trace edema b/l feet/ankles Discharge Plan Discharge Items Patient Disposition: Home - Home Health Services Reason For Visit: Shortness of breath Discharge Diagnosis: 1. COVID-19 infection 2. Pneumonia - suspected (either due to COVID and/or bacterial pneumonia) 3. Urinary tract infection 4. Self-catheterization at home every other day 5. Recent ablation procedure at [facility] 6. Acute on chronic congestive heart failure 7. Atrial fibrillation 8. Sleep apnea on BiPAP 9. Coronary artery disease 10. Enlarged prostate Activity: As commented below Activity Comment: gradually increase activities over the next 7 days Non-emergency contact: Primary Care Provider and [employer] Call non-emergency contact if: you have any medication questions, your symptoms worsen and you have a fever Follow-up/Referrals: Royce Negron MD, PhD [Physician] - 07/03/24 1:30 pm (cardiology follow-up) Tramaine Peterson MD [Primary Care Provider] - (within 1 week) Diet: Heart Healthy Fluids: 1800ml (7 cups) Diet Texture: Easy to Chew Addtl Attending Provider Instructions: Mr Louise, You were hospitalized due to COVID-19 infection, urinary tract infection, swelling/fluid overload (lungs, legs), and suspected pneumonia. You received anti-viral medicine for COVID, antibiotics for urinary infection & suspected pneumonia, and diuretics for fluid overload from your congestive heart failure. With time all issues improved while here. You are nearly finished with your antibiotic course for the urinary infection/pneumonia. Your fluid overload from the congestive heart failure has improved significantly. Oxygen was weaned off prior to discharge home. You had a ray catheter in the bladder during the stay. It was removed on 06/10/24. Bladder scan done on 06/11 showed that your voiding is satisfactory at this time. Please continue your self-catheterization as previous. Plan to self-cath TONIGHT upon return home, then every other day as previous. Follow-up with [facility] for your urinary tract problems & prostate. I suspect that your risk of contagiousness to others from your COVID infection is fairly low. Plan to take it easy at home today & tomorrow. On 06/13/24 - if you are feeling well - you can attend appointments, go out into the community, etc. We have recommended that you stay at a rehab center for acute rehab following this hospital stay. This illness and your recent hospitalization in [place] have made you fairly weak. You have voiced that you wish to return home with home nursing and home PT/OT. Please know that when you return home you likely have 1-2 weeks of recovery ahead - possibly even longer. It will take time for you to get stronger. Recommendations - 1. HOLD your Entresto for now. Hopefully this can be resumed within the next week or two. 2. If you were taking metoclopramide medicine for your stomach please discontinue it. This medicine has neurological side effects and can make your tremors worse, etc. 3. TAKE levofloxacin antibiotic - 750mg x 1 on 06/12/24. This completes your antibiotic course. 4. Continue to use nystatin powder for the skin irritation & rash around your scrotum & groin. Use three times daily for about 1 week then stop. 5. Your puncture sites in both groins from the recent ablation procedure are fully healed. No need to place any band-aids or dressings on the groin at this point. 6. Limit total salt intake to no more than 2000mg in a 24-hour period. 7. Limit total fluid intake to no more than 1800ml in a 24-hour period. This includes ALL liquids consumed day to day. 8. Check your weight every morning on the same scale. Keep a log of your weights. If you gain more than 3 pounds over a 1-2 day period this could be a sign of fluid retention. If you notice weight gains let Dr Negron's office know right away. Do not delay if you are gaining weight rapidly - call cardiology as soon as possible. 9. Continue your BiPAP with sleeping as previous. Follow-up - see separate section Return to [facility] if - * you have recurrent fevers over 100 degrees * you have extreme weakness * you have worsening shortness of breath * you have chest pains * you develop severe diarrhea (more than 3 liquid stools in 24 hours) * you have difficulty passing your urine * any other concerns It was our pleasure to care for you! Pending Studies at Discharge: No Stand-Alone Forms: [facility], Smoking Cessation Medications and DC Order Prescriptions: New levofloxacin 750 mg tablet 750 mg PO ONCE Qty: 1 0RF Rx Instructions: take on 06/12/24 Continued bumetanide 1 mg tablet 1 mg PO QAM Qty: 90 3RF potassium chloride 20 mEq tablet extended release 20 meq PO BID Qty: 200 3RF cetirizine 10 mg tablet 10 mg PO QDB carvedilol 25 mg tablet 25 mg PO BID Rx Instructions: must administer with a meal/food bupropion HCl 100 mg tablet 100 mg PO BID Rx Instructions: TAKE THIS MEDICATION EVERY MORNING AND AT NOON albuterol sulfate 90 mcg/actuation HFA aerosol inhaler 2 puffs inhalation Q6H PRN (Reason: Shortness Of Breath Or Wheezing) docusate sodium 100 mg capsule 100 mg PO BID finasteride 5 mg tablet 5 mg PO QAM pantoprazole 40 mg tablet,delayed release (DR/EC) 80 mg PO .@NOON Eliquis 5 mg tablet 5 mg PO BID Qty: 180 3RF pramipexole 0.375 mg tablet extended release 24 hr 0.375 mg PO QAM Qty: 90 3RF PreserVision AREDS 4,296 mcg-226 mg-90 mg capsule 1 cap PO BID aspirin 81 mg Tablet,Delayed Release (Dr/Ec) 81 mg PO QAM oxycodone 10 mg Tablet 10 mg PO Q12H Patient Comments: takes 6am and 6pm Rx Instructions: take at 6 am & 6 pm sennosides 8.6 mg Tablet 8.6 mg PO TID Rx Instructions: takes in morning ,at noon and bedtime Refresh Lacri-Lube 56.8-42.5 % Ointment 1 applic OPHTHALMIC (EYE) HS Rx Instructions: 1/8th INCH IN EACH EYE Stiolto Respimat 2.5-2.5 mcg/actuation Mist 2 puff INHALATION QAM epinephrine 0.3 mg/0.3 mL Auto-Injector 0.3 mg IM DIRECTED PRN (Reason: sEVERE ALLERGIC REACTION) rosuvastatin 10 mg tablet 10 mg PO QPM mometasone 50 mcg/actuation [place],Non-Aerosol 2 spray INTRANASAL BID Rx Instructions: administer into each nostril Changed nystatin 100,000 unit/gram Powder 1 applic TOPICAL TID Qty: 15 1RF Rx Instructions: apply to rash in groin for 7 days then stop Held sacubitril-valsartan 49-51 mg tablet 1 tab PO AMPM Hold Instructions: hold until you see your outpatient doctors Discontinued metoclopramide HCl 10 mg tablet 5 mg PO Q8H Discharge Orders: Discharge Order (Routine); Ordered 06/11/24 Ordered By: Howard Alvarez Admission Data Admit Date/Time: 06/05/24 22:05 Attending Provider: Howard Alvarez Admit Provider: Dimitrios Calix Primary Care Provider: Tramaine Peterson Other Providers: Royce Negron Other Interventions: Discharge Summary Assessment (RN) Last Done: 06/11/24 13:18 Hospital Stay Data Consultations PT, OT Diagnostic Imagining Performed Chest X-Ray 06/05/24 17:18 INDICATION: Difficulty breathing. TECHNIQUE: Frontal radiograph of the chest. COMPARISON: Radiograph from 04/14/2024. FINDINGS: Elevation of left hemidiaphragm. Cardiomegaly. Subsegmental atelectasis/airspace disease in the lung bases. No pneumothorax or pleural effusion. No acute fracture. Left-sided pacemaker. IMPRESSION: Subsegmental atelectasis/airspace disease in the lung bases. Electronically signed by Gallo Dee 06-05-2024 6:51 PM Chest X-Ray 06/06/24 08:26 XR chest 1V portable HISTORY: 79 years-old Male COVID+, leukocytosis, ?pneumonia acute shortness of breath COMPARISON: 06/05/2024 chest, Chest CT 04/14/2024 TECHNIQUE: AP view of the chest FINDINGS: Left subclavian pacer/AICD. Cardiomegaly. Pulmonary vascular congestion with interstitial coarsening. No pneumothorax. Layering pleural effusions with bibasilar consolidation again noted, left greater than right. No significant change from yesterday's study. Bones appear grossly intact. Pulmonary emphysema. Hiatal hernia. IMPRESSION: 1. Cardiomegaly with unchanged pulmonary edema. 2. Layering pleural effusions with persistent bibasilar consolidation. 3. Pulmonary emphysema. ACT 112: Negative or not required by law. The above report was generated using voice recognition software. It may contain grammatical, syntax or spelling errors. Electronically signed by: Matthias Luna M.D. 06/06/2024 9:07 AM KUB X-Ray 06/06/24 14:48 EXAM: XR KUB/Abdomen 1 view CLINICAL HISTORY: Abd distension, ileus? impaction? TECHNIQUE: X-ray images of the abdomen were obtained in AP positions. COMPARISON: compared to prior x-ray abdomen dated 11/10/2023,02/28/2023. FINDINGS: Gas Pattern: Slightly dilated bowel loops with gaseous filled more at the pelvis. Dilated gas-filled bowel loop at the midline pelvis reaches 6 cm. Soft Tissues: Soft tissues of the abdomen appear normal without evidence of masses or calcifications. The liver, spleen, and kidneys are of normal size and position. Right lower lung opacity. left pleural minimal effusion. Implantable cardioverter defibrilator. cholecystectomy clips. IMPRESSION: Dilated gas-filled bowel loop at the pelvis reaches 6 cm, suggests an erect x-ray to exclude intestinal obstruction and clinical assessment. Electronically signed by Jacqueline Shay 06-06-2024 9:08 PM Abdomen/Pelvis CT 06/06/24 21:45 Exam(s): CT ABDOMEN + PELVIS With Contrast IV Amt: 92 cc opti 320 EXAM: CT Abdomen and Pelvis With Intravenous Contrast CLINICAL HISTORY: Reason for exam: abd distension, ?ileus vs SBO. TECHNIQUE: Axial computed tomography images of the abdomen and pelvis with intravenous contrast. CTDI is 28.10 mGy and DLP is 1547.18 mGy-cm. Automated exposure control was utilized for the study. A dose lowering technique was utilized adhering to the principles of ALARA. CONTRAST: Patient received 92 cc opti 320 of IV contrast COMPARISON: Renal ultrasound dated 12/28/2023, CT abdomen pelvis without contrast dated 03/01/2023, CT abdomen pelvis with contrast dated 02/02/252015 FINDINGS: Lung bases: Emphysematous changes. Bibasilar atelectasis or consolidation. Pleural space: Small right pleural effusion. Mediastinum: Moderate hiatal hernia. Heart: Coronary calcifications. Pacemaker leads. Cardiomegaly. ABDOMEN: Liver: Unremarkable. No mass. Gallbladder and bile ducts: Cholecystectomy. No ductal dilation. Pancreas: Unremarkable. No mass. No ductal dilation. Spleen: 2 splenic low-density lesions. Larger 1.7 splenic cystic lesion stable since 2022. The smaller subcentimeter lesion stable since 2015. Adrenals: Unremarkable. No mass. Kidneys and ureters: Simple bilateral renal cysts. No follow-up of these simple cysts is necessary. Nonobstructing right renal calculus. No hydronephrosis. Stomach and bowel: Colonic diverticulosis. Heterogeneous contents throughout the colon with some fluid levels. No bowel loop dilation. No obstruction. No mucosal thickening. PELVIS: Appendix: Normal appendix. Bladder: Ray catheter in decompressed urinary bladder. Reproductive: Unremarkable as visualized. ABDOMEN and PELVIS: Intraperitoneal space: Unremarkable. No free air. No significant fluid collection. Bones/joints: No acute fracture. No dislocation. Soft tissues: Right inguinal postoperative changes. Small portion of the bladder extends within a right inguinal hernia. Stable appearance. Vasculature: Unremarkable. No abdominal aortic aneurysm. Lymph nodes: Unremarkable. No enlarged lymph nodes. IMPRESSION: 1. Small right pleural effusion. Bibasilar atelectasis or consolidation. 2. Moderate hiatal hernia. 3. Colonic diverticulosis. 4. Heterogeneous contents throughout the colon with some fluid levels. Correlate for diarrheal illness. 5. Nonobstructing right renal calculus. 6. Other nonacute findings. Electronically signed by: Khurram Berkowitz M.D. 06/07/24 01:18 AM Chest X-Ray 06/08/24 07:00 EXAM: XR chest 1V portable CLINICAL HISTORY: CHF vs pneumonia TECHNIQUE: X-ray image of the chest is obtained in AP projection. COMPARISON: 06/06/2024 CR. FINDINGS: Pulmonary Parenchyma: Homogeneous opacification seen in the left lower hemithorax extending along the left lateral chest wall obliterating left costophrenic angle and hemidiaphragm. These findings are likely due to pleural effusion with underlying consolidation/collapse. Faint opacity is seen in right lower zone. Elevation of the left hemidiaphragm. Multiple tubes seen overlying the chest. Heart and Mediastinum: Heart size and shape are normal. No mediastinal widening or masses. No hilar or mediastinal lymphadenopathy. Multiple leads Cardiac pacemaker device seen on left side. Bony Thorax: Bony thorax appears intact without fractures or deformities. Soft Tissues: Soft tissues overlying the chest wall are unremarkable. IMPRESSION: 1. Moderate left-sided pleural effusion with underlying collapse/consolidation. 2. Clinical lab correlation and follow-up chest x-ray is advised. 3. No definite interval changes. Electronically signed by Jacqueline Shay 06-08-2024 08:28 AM Pending Results Patient Have Any Pending Studies at Discharge: No Discharge Instructions Given to Patient (Per Discharging Provider) Mr Louise, Stas were hospitalized due to COVID-19 infection, urinary tract infection, swelling/fluid overload (lungs, legs), and suspected pneumonia. You received anti-viral medicine for COVID, antibiotics for urinary infection & suspected pneumonia, and diuretics for fluid overload from your congestive heart failure. With time all issues improved while here. You are nearly finished with your antibiotic course for the urinary in fection/pneumonia. Your fluid overload from the congestive heart failure has improved significantly. Oxygen was weaned off prior to discharge home. You had a ray catheter in the bladder during the stay. It was removed on 06/10/24. Bladder scan done on 06/11 showed that your voiding is satisfactory at this time. Please continue your self-catheterization as previous. Plan to self-cath TONIGHT upon return home, then every other day as previous. Follow-up with [facility] for your urinary tract problems & prostate. I suspect that your risk of contagiousness to others from your COVID infection is fairly low. Plan to take it easy at home today & tomorrow. On 06/13/24 - if you are feeling well - you can attend appointments, go out into the community, etc. We have recommended that you stay at a rehab center for acute rehab following this hospital stay. This illness and your recent hospitalization in [place] have made you fairly weak. You have voiced that you wish to return home with home nursing and home PT/OT. Please know that when you return home you likely have 1-2 weeks of recovery ahead - possibly even longer. It will take time for you to get stronger. Recommendations - 1. HOLD your Entresto for now. Hopefully this can be resumed within the next week or two. 2. If you were taking metoclopramide medicine for your stomach please discontinue it. This medicine has neurological side effects and can make your tremors worse, etc. 3. TAKE levofloxacin antibiotic - 750mg x 1 on 06/12/24. This completes your antibiotic course. 4. Continue to use nystatin powder for the skin irritation & rash around your scrotum & groin. Use three times daily for about 1 week then stop. 5. Your puncture sites in both groins from the recent ablation procedure are fully healed. No need to place any band-aids or dressings on the groin at this point. 6. Limit total salt intake to no more than 2000mg in a 24-hour period. 7. Limit total fluid intake to no more than 1800ml in a 24-hour period. This includes ALL liquids consumed day to day. 8. Check your weight every morning on the same scale. Keep a log of your weights. If you gain more than 3 pounds over a 1-2 day period this could be a sign of fluid retention. If you notice weight gains let Dr Negron's office know right away. Do not delay if you are gaining weight rapidly - call cardiology as soon as possible. 9. Continue your BiPAP with sleeping as previous. Follow-up - see separate section Return to [facility] if - * you have recurrent fevers over 100 degrees * you have extreme weakness * you have worsening shortness of breath * you have chest pains * you develop severe diarrhea (more than 3 liquid stools in 24 hours) * you have difficulty passing your urine * any other concerns It was our pleasure to care for you! Total Time Total Time Spent Total Time Spent (In Minutes): 45 Coding Level of Care Code 95488 INP/OBS DISCH >30 MIN Diagnoses COVID-19 U07.1 Pneumonia of both lower lobes due to infectious organism J18.9 Laterality: bilateral Lung location: lower lobe of lung Pneumonia type: due to unspecified organism Catheter-associated urinary tract infection T83.511A; N39.0 Acute on chronic systolic heart failure I50.23 Abdominal distension R14.0 PAT (paroxysmal atrial tachycardia) I47.19 Paroxysmal atrial fibrillation I48.0 Parkinsonism G20.C BPH loc w urin obs/LUTS N40.1 Presence of combination internal cardiac defibrillator (ICD) and pacemaker Z95.810 Sleep apnea G47.30 CAD (coronary artery disease) I25.10
[2024-06-11 13:19] VITALS: PULSE 80
--- NOTE | 2024-06-13 09:20 | Coding Query ---
CODING QUERY To promote full compliance with coding requirements relating to patient care, provider participation is requested in all cases of cosmetician apprentice uncertainty. Please assist us with the question(s) below: Coding Question(s): Pt admitted with CHF. Please identify the laterality of buttock Stage 3 pressure ulcer . Please check below & thank you. Duane Long PROGRAMMING SPECIALIST [facility] Physician's Response(s): Left Buttock Stage 3 Pressure Ulcer Right Buttock Stage 3 Pressure Ulcer Unknown Buttock Stage 3 Pressure Ulcer Site patient did NOT have any pressure ulcer of the buttock I verified with multiple nurses he did NOT have any pressure ulcer in that location. Thank you, Howard Kirk Principal Diagnosis: "that condition established after study, to be chiefly responsible for occasioning the admission of the patient to the hospital for care." Co-Existing Principal Diagnosis: "when two or more diagnoses equally meet the criteria for principal diagnosis as determined by the circumstances of admission, diagnostic work up, and/or therapy provided, and the Alphabetic Index, Tabular List, or another coding guideline does not provide sequencing direction, any one of the diagnoses may be sequenced first." "When the physician has documented what appears to be a current diagnosis in the body of the record, but has not included the diagnosis in the final diagnostic statement, the physician should be asked whether the diagnosis should be added." ([facility] 2 QTR90. p3-4) TRENT
== END 2024-06-11 14:16 | disposition home health service (06) | DRG 291 ==
LOC: ED 16:48 → SUATTDRO 22:05 → 2S 22:05

== ENCOUNTER 2024-06-16 07:15 | Inpatient (IN) ==
[2024-06-16] MEDS: SODIUM CHLORIDE 0.9% 500 ML IV ONE (07:44)
[2024-06-16 07:56] LABS: Basophils # (auto) 0.02 K/uL (0.00-0.20); Basophils % (auto) 0.3 %; Eosinophils # (auto) 0.12 K/uL (0.00-0.50); Eosinophils % (auto) 1.8 %; Hematocrit (blood only) 39.4 % (42.0-52.0); Hemoglobin 12.9 g/dl (14.0-18.0); Immature Granulocytes # (auto) 0.06 K/uL (0.01-0.20); Immature Granulocytes % (auto) 0.9 %; Lymphocytes # (auto) 1.68 K/uL (1.20-3.40); Lymphocytes % (auto) 25.9 %; Mean Corpuscular Hemoglobin 29.2 pg (25.0-34.0); Mean Corpuscular Hgb Conc 32.7 g/dL (32.0-36.0); Mean Corpuscular Volume 89.1 fL (80.0-100.0); Mean Platelet Volume 10.4 fL (9.4-12.4); Monocytes # (auto) 0.51 K/uL (0.11-0.59); Monocytes % (auto) 7.9 %; Neutrophils % (auto) 63.2 %; Platelet Count 339 K/uL (130-400); RDW Coefficient of Variation 14.5 % (11.5-14.5); RDW Standard Deviation 46.6 fL (36.4-46.3); Red Blood Count 4.42 M/uL (4.70-6.10); White Blood Count 6.49 K/ul (4.8-10.8)
[2024-06-16 08:13] LABS: Albumin Level 3.5 gm/dl (3.4-5.0); BUN Creatinine Ratio 27.7 (10-20); Bilirubin,Total 0.4 mg/dl (0.2-1.0); Calcium 8.3 mg/dl (8.6-10.3); Creatinine Clr Calc Pharmacy 62.9 ml/min; Magnesium 2.1 mg/dl (1.7-2.4); Total Protein 6.7 gm/dl (6.0-8.3)
[2024-06-16 08:19] LABS: Troponin I High Sensitivity 12.6 pg/ml (0-20)
[2024-06-16 08:20] LABS: Appearance Urine Turbid (Clear); Bacteria Urine Automated None Seen (None Seen); Bilirubin Urine Negative (Negative); Blood Urine 2+ (Negative); Color Urine Dark Yellow; Epithelial Cell Urine Auto 0-2 /hpf (0-2); Glucose Urine UA Negative (Negative); Hyaline Casts Urine Present /lpf (None Presnt); Ketones Urine Trace (Negative); Leukocyte Esterase Urine Trace (Negative); Nitrite Urine Negative (Negative); Protein Urine 1+ (Negative); RBC Urine Automated >20 /hpf (0-2); Specific Gravity Urine 1.029 (1.000-1.030); Urobilinogen Urine Negative (Negative); pH Urine 5.5 (4.5-7.5)
[2024-06-16 08:22] LABS: INR 1.2 (0.9-1.1); Partial Thromboplastin Ratio 1.2; Partial Thromboplastin Time 32 Seconds (21-31)
[2024-06-16 08:41] LABS: Influenza A virus by PCR Negative (Neg); Influenza B virus by PCR Negative (Neg); RSV by PCR Negative (Neg); SARS CoV2 RNA(COVID-19) Ceph POSITIVE (Negative)
[2024-06-16] MEDS: DEXAMETHASONE SOD INJ 4 MG/ML VIAL IV STA (08:43)
--- NOTE | 2024-06-16 08:51 | XRay Report ---
XR pelvis 1-2V routine CLINICAL HISTORY: fall COMPARISON: 12/21/2018 FINDINGS: Single view pelvis is unchanged. There is no acute traumatic osseous or articular injury i dentified. The hips are normally aligned. There is no fracture identified. There are degenerative moncho nges in the lower lumbar spine. The SI joints are unremarkable. IMPRESSION: No acute traumatic injury identified. ACT 112: Negative or not required by law. Electronically signed by: Rhonda Sterling M.D. 06/16/2024 8:49 AM
--- NOTE | 2024-06-16 08:52 | XRay Report ---
XR chest 1V portable CLINICAL HISTORY: fall COMPARISON STUDY: Chest CT April 14, 2024. Chest radiograph June 08, 2024. FINDINGS: Left subclavian biventricular pacer/AICD is in place. Cardiomegaly is again noted. There is underlying emphysema. Bibasilar opacities are similar to prior exam and favor atelectasis. There is no consolidation. There is no evidence for pulmonary edema. Elevation of the left hemidiaphragm is ag ain noted. Blunting of the left costophrenic angle is due to epicardial fat pad. IMPRESSION: No acute cardiopulmonary findings. No change in appearance of the chest. ACT 112: Negative or not required by law. Electronically signed by: Adam Benson M.D. 06/16/2024 8:51 AM
[2024-06-16] MEDS: OPTIRAY 320 125ml IV ONE (09:05)
--- NOTE | 2024-06-16 09:32 | CT Scan Report ---
CT head/brain wo con CLINICAL HISTORY: Ground-level fall TECHNIQUE: Multiple axial CT images of the head were obtained without contrast. Sagittal and coronal reconstructions were done. A dose lowering technique was utilized adhering to the principles of ALARA . CT DOSE: 3793.08mGy*cm COMPARISON: 05/31/2020 FINDINGS: CT findings are stable. There is no intra-axial or extra-axial fluid collection, hemorrhage , or mass. Senescent atrophy and small vessel insufficiency changes are once again noted. There is no skull fracture. There is a small posterior convexity scalp hematoma. IMPRESSION: Stable exam; no acute intracranial process. ACT 112: Negative or not required by law. The above report was generated using voice recognition software. It may contain grammatical, syntax o r spelling errors. Electronically signed by: Rhonda Sterling M.D. 06/16/2024 9:31 AM
--- NOTE | 2024-06-16 09:37 | CT Scan Report ---
CT ANGIOGRAPHY OF THE CHEST, PULMONARY EMBOLUS PROTOCOL CLINICAL HISTORY: Shortness of breath. Evaluate for pulmonary embolus. COMPARISON STUDY: Chest CT April 14, 2024. Chest radiograph performed earlier today. TECHNIQUE: Following IV administration of Optiray, helical axial images of the chest were obtained ut ilizing the pulmonary embolus protocol. Maximal intensity projections and sagittal and coronal refor mats were viewed on an independent 3D workstation. IV contrast was administered without complication . Automated exposure control was utilized for the study. A dose lowering technique was utilized adh ering to the principles of ALARA. FINDINGS: No pulmonary emboli are identified although segmental and subsegmental pulmonary arteries within the lower lobes are suboptimally opacified. A left subclavian pacer is in place. The heart is moderately enlarged. A hiatal hernia with partially intrathoracic stomach is again noted. There is no thoracic lymphadenopathy. Emphysema is again noted. Lower lung predominant groundglass opacities are unchanged. Linear densities within the lower lobes are also unchanged and favor scarring. There is n o consolidation to suggest pneumonia. No pneumothorax or pleural effusion is present. A 1.3 cm focus of secretions within the right mainstem bronchus is present. There are no acute fractures within the bony thorax. Abdomen and pelvis CT will be reported separately. IMPRESSION: 1. No pulmonary emboli identified although lower lobe segmental and subsegmental pulmonary arteries s uboptimally opacified. 2. No significant change in appearance of the chest. Lower lobe ground glass opacities with linear de nsities within the lower lobes and lingula suggestive of scarring. No consolidation to suggest pneumo courtney. 3. Cardiomegaly. 4. Emphysema. ACT 112: Negative or not required by law. Electronically signed by: Adam Benson M.D. 06/16/2024 9:35 AM
--- NOTE | 2024-06-16 09:41 | CT Scan Report ---
CT OF THE ABDOMEN AND PELVIS WITH CONTRAST CLINICAL HISTORY: Fall. COMPARISON STUDY: CT of the abdomen and pelvis June 06, 2024. TECHNIQUE: Following IV administration of 112 mL of Optiray, axial images of the abdomen and pelvis w ere obtained from the lung bases to the proximal femurs. Images were reviewed in the axial, sagittal, and coronal planes. IV contrast was administered without complication. Automated exposure control w as utilized for the study. A dose lowering technique was utilized adhering to the principles of DEENA Suarez. CT DOSE: 3793.08 mGy.cm FINDINGS: Please note that the chest CT will be reported separately. Emphysema, a hiatal hernia and l ower lobe opacity suggestive of atelectasis are better depicted on that exam. There is no evidence fo r traumatic injury to the liver, spleen, adrenal glands, kidneys or pancreas. There are bilateral uriah al cysts. Hypodense splenic lesions are likely benign. There is no significant biliary ductal dilatat ion status post cholecystectomy. The adrenal glands, liver and pancreas are unremarkable. The caliber and wall thickness of small and large bowel are normal. Postoperative findings within the right ingu inal canal are present. A [place] balloon within the bladder is noted. This colonic diverticulosis. No evidence for acute diverticulitis. No acute fractures within the lumbar spine, pelvis or hips are delmar ntified. IMPRESSION: 1. No acute traumatic findings within the abdomen or pelvis. No significant change since prior CT. 2. No bowel obstruction. No bowel wall thickening. Colonic diverticulosis. No evidence for acute dive rticulitis. ACT 112: Negative or not required by law. Electronically signed by: Adam Benson M.D. 06/16/2024 9:39 AM
--- NOTE | 2024-06-16 09:41 | CT Scan Report ---
CT cervical spine wo con CT DOSE: 3793.08mGy*cm CLINICAL HISTORY: Ground-level fall COMPARISON: 12/26/2021 TECHNIQUE: Multiple axial CT images of the cervical spine were obtained without contrast. Sagittal a nd coronal reconstructions were done. A dose lowering technique was utilized adhering to the principl es of ALA. FINDINGS: The left maxillary antrum is opacified. There is no evidence of acute fracture or traumatic malalignment. The prevertebral soft tissues are n egative. The odontoid and atlantoaxial articulation are intact. Multilevel cervical spondylosis is re demonstrated. 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 IMPRESSION: Stable exam; no acute traumatic cervical spine injury identified. The left maxillary antrum is opacified. The aortic arch is ectatic. ACT 112: Negative or not required by law. The above report was generated using voice recognition software. It may contain grammatical, syntax o r spelling errors. Electronically signed by: Rhonda Sterling M.D. 06/16/2024 9:40 AM
--- NOTE | 2024-06-16 10:16 | Emergency Department Note ---
History of Present Illness General Chief complaint: Fall Stated complaint: FALL, CONTUSION TO HEAD Time Seen by Provider: 06/16/24 07:16 History of Present Illness Provider complaint: Fall 79-year-old male with history of atrial fibrillation on Eliquis and Parkinson's presents emergency department for fall. Patient reportedly was trying to get to his bedside commode and fell earlier's morning. Patient did hit his head. Patient reports he was recently diagnosed with COVID-19 and pneumonia. No fevers. Patient reports mild headache. Home Medications Medication Instructions Recorded Confirmed Type albuterol sulfate 90 mcg/actuation 2 puffs inhalation Q6H PRN 12/01/18 04/14/24 History aerosol inhaler Shortness Of Breath Or Wheezing bupropion HCl 100 mg tablet 100 mg PO BID 12/01/18 04/14/24 History docusate sodium 100 mg capsule 100 mg PO BID 12/01/18 04/14/24 History finasteride 5 mg tablet 5 mg PO QAM 12/01/18 04/14/24 History aspirin 81 mg tablet,delayed 81 mg PO QAM 12/21/18 04/14/24 History release oxycodone 10 mg tablet 10 mg PO Q12H 12/21/18 04/14/24 History sennosides 8.6 mg tablet 8.6 mg PO TID 12/21/18 04/14/24 History white petrolatum-mineral oil 56.8 1 applic ophthalmic (eye) HS 12/21/18 04/14/24 History %-42.5 % eye ointment (Refresh Lacri-Lube) sacubitril 49 mg-valsartan 51 mg 1 tab PO AMPM 11/25/20 04/14/24 History tablet pantoprazole 40 mg tablet,delayed 80 mg PO .@NOON 03/10/21 04/14/24 History release tiotropium 2.5 mcg-olodaterol 2.5 2 puff inhalation QAM 12/02/22 04/14/24 History mcg/actuation mist for inhalation (Stiolto Respimat) cetirizine 10 mg tablet 10 mg PO QDB 05/17/23 04/14/24 History epinephrine 0.3 mg/0.3 mL 0.3 mg IM DIRECTED PRN sEVERE 07/08/23 04/14/24 History injection, auto-injector ALLERGIC REACTION bumetanide 1 mg tablet 1 mg PO QAM #90 tabs 10/10/23 04/14/24 Rx potassium chloride 20 mEq 20 meq PO BID #200 tabs 10/10/23 04/14/24 Rx tablet,extended release mometasone 50 mcg/actuation nasal 2 spray intranasal BID 10/22/23 04/14/24 History spray rosuvastatin 10 mg tablet 10 mg PO QPM 10/22/23 04/14/24 History apixaban 5 mg tablet (Eliquis) 5 mg PO BID #180 tabs 11/23/23 04/14/24 Rx pramipexole 0.375 mg 0.375 mg PO QAM Parkinsonism #90 12/29/23 04/14/24 Rx tablet,extended release 24 hr tabs carvedilol 25 mg tablet 25 mg PO BID 03/27/24 04/14/24 History vitamins A,C,H-xlgb-ltjfnq 4,296 1 cap PO BID 03/27/24 04/14/24 History mcg-226 mg-90 mg capsule (PreserVision AREDS) levofloxacin 750 mg tablet 750 mg PO ONCE #1 tab 06/11/24 Rx nystatin 100,000 unit/gram topical 1 applic topical TID #15 grams 06/11/24 Rx powder Allergies Allergy/AdvReac Type Severity Reaction Status Date / Time bee venom protein (honey bee) Allergy Severe SWELLING, Verified 04/14/24 08:21 SOB Penicillins Allergy Severe SWELLING, Verified 04/14/24 08:21 DIFFICULTY BREATHING lidocaine Allergy Mild RASH Verified 04/14/24 08:21 cefdinir AdvReac Severe Vomiting Verified 04/14/24 08:21 hydrocodone AdvReac Mild nausea Verified 04/14/24 08:21 oxycodone AdvReac Mild nausea-SLOW Verified 04/14/24 08:21 RELEASE IS OK Past Med/Surg History Problem List (Updated 06/16/24 @ 10:16 by Keanu Parks MD) Fall (Acute) CHI (closed head injury) (Acute) Hypoxia (Acute) COVID-19 (Acute) Pneumonia CAD (coronary artery disease) s/p stent 2010 Sleep apnea bipap Presence of combination internal cardiac defibrillator (ICD) and pacemaker first placed 2010 @ [facility] replaced in 2014 & 2021 @ [facility]--biventricular [employer]. reports last check 8/2/23. Paroxysmal atrial fibrillation Abdominal distension Acute on chronic systolic heart failure Catheter-associated urinary tract infection COVID-19 (Acute) UTI (urinary tract infection) (Acute) CHF (congestive heart failure) (Acute) Anticoagulant long-term use PAT (paroxysmal atrial tachycardia) Cardiomyopathy Hypotension (Acute) Atrial fibrillation, controlled Parkinsonism Stage III pressure ulcer of buttock (Acute) Centrilobular emphysema Bilateral foot-drop Esophagitis Dysphagia Acute respiratory failure with hypoxia (Acute) Acute on chronic hypoxic respiratory failure Biliary dyskinesia (Chronic) Multiple kidney stones Idiopathic peripheral neuropathy (Acute) Cervical spondylosis without myelopathy (Acute) Cervical radiculopathy (Acute) Complex renal cyst Ulnar neuropathy of both upper extremities Agent orange exposure Warfarin anticoagulation (Chronic) Balance problem Bursitis of left elbow Elevated PSA 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 Cervicogenic headache Spasticity upper limbs Medical History HFrEF (heart failure with reduced ejection fraction) Atrial tachycardia CHF (congestive heart failure) Tachycardia Pressure ulcer of right heel, stage 4 Benign essential hypertension Ischemic cardiomyopathy Euvolemic at 11/23/22 cardio appt Elevated INR Near syncope Tachycardia Leg pain Elevated lactic acid level Elevated INR Cellulitis Unstageable pressure ulcer of right heel Unstageable pressure ulcer of left heel Hypoxia Vomiting Acute kidney injury Elevated troponin Acute kidney failure Acute UTI Sepsis Severe sepsis Encounter for pre-operative examination Intrinsic minus hand POWERS (dyspnea on exertion) Preop testing Episode of confusion Right upper quadrant abdominal pain Hand laceration Dog bite Chest pain Cellulitis of left arm Peripheral arterial disease Hypertension Tremor ICD (implantable cardioverter-defibrillator) in place Neuropathy Complex sleep apnea syndrome NYHA class 4 acute on chronic systolic heart failure History of kidney stones Emphysema lung Legally blind Chronic back pain History of urinary self-catheterization self caths every other night History of DVT of lower extremity 2010 Macular degeneration Hearing deficit Depression Migraine Myocardial Infarction 10/2010--follows with Dr. Abreu Pulmonary embolism 1992 and 2010 after heart attack--follows with Dr. Abreu Asthma inhaler prn Surgical History Presence of biventricular automatic cardioverter/defibrillator (AICD) S/P epidural steroid injection History of foot surgery plantar fasciitis History of open reduction and internal fixation (ORIF) procedure left foot--hardware removed History of prostate biopsy x3--precancerous, just monitoring for now History of prostate surgery 07/2016--[facility] prostate vaproization History of cystoscopy multiple History of colonoscopy with polypectomy History of esophagogastroduodenoscopy (EGD) History of right inguinal hernia repair x3 History of Khari fundoplication History of cholecystectomy History of tooth extraction History of eye surgery right--macular degeneration History of bilateral cataract extraction History of cardiac cath 10/2010 @ [facility]--1 stent placed Family History Son Family history of diabetes mellitus Other Family history non-contributory No family history of adverse response to anesthesia Social History Smoking Status: Former smoker Tobacco Type: Cigarettes Second Hand Exposure: Yes (father smoked); Do You Dip or Chew Tobacco: No; Hx Alcohol Use: No Hx Substance Use: No Preferred Language: Mohawk Communication Ability: Effective Claims Account Specialist Required: No Beliefs That Will Affect Care: None marital status: Current Living Situation: Spouse Current Living Situation Comment: with Araceli current occupational status: retired Feels Safe at Home: Yes Assistive Devices: Oxygen - at Night, Scooter/Electric Scooter, Walker and Wheelchair Physical Exam Vital Signs Vital Signs - 24 hr 06/16/24 07:24 06/16/24 07:24 06/16/24 07:24 Temperature 37.1 C Temperature Source Oral Pulse Rate 89 Pulse Rate [Apical] Respiratory Rate 26 H Respiratory Depth Normal Blood Pressure 96/74 L Blood Pressure [Right Arm] Blood Pressure Mean 81 Blood Pressure Mean [Right Arm] Pulse Oximetry 91 Oxygen Delivery Method Room Air Room Air Nasal Cannula Oxygen Flow Rate Sepsis Recent Fever Within 48 Hours No Sepsis New/Unexplained Change in Mental Status No Sepsis Action Taken by Nursing Physician Notified Oxygen Flow Rate - Titration Pulse Oximetry Post Tiitration 06/16/24 08:10 06/16/24 08:19 06/16/24 08:20 Temperature Temperature Source Pulse Rate 85 Pulse Rate [Apical] 80 Respiratory Rate 24 Respiratory Depth Blood Pressure Blood Pressure [Right Arm] 102/70 Blood Pressure Mean Blood Pressure Mean [Right Arm] 80 Pulse Oximetry 96 88 L Oxygen Delivery Method Nasal Cannula Room Air Nasal Cannula Oxygen Flow Rate 2 0 Sepsis Recent Fever Within 48 Hours Sepsis New/Unexplained Change in Mental Status Sepsis Action Taken by Nursing Oxygen Flow Rate - Titration 2 Pulse Oximetry Post Tiitration 96 Physical Exam EYES: Conjunctivae and EOM are normal. Pupils are equal, round, and reactive to light. Right eye exhibits no discharge. Left eye exhibits no discharge. No scleral icterus. NECK: Normal range of motion. Neck supple. No JVD present. No spinous process tenderness present. CV: Normal rate, regular rhythm, normal heart sounds and intact distal pulses. There is no peripheral edema. Palpable radial pulses bue. PULM/CHEST: Effort normal and breath sounds normal. No respiratory distress. No stridor. He has no wheezes. He has no rales. - Chest Wall: He exhibits no tenderness. No crepitus bilaterally. ABD: The abdomen is soft. There is no tenderness. There is no rebound, no guarding. MUSC/SKEL: Pelvis stable. NEURO: Motor and sensation grossly intact. Course Course 0716: The patient was evaluated in room B4. A complete history and physical exam was performed Cardiac monitoring: An order was placed for continuous cardiac monitoring. The monitor shows a rate of 80 with paced rhythm interpreted by ga 0822: Patient came hypoxic on room air. Supplemental oxygen applied via nasal cannula which improved the patient's oxygen saturation. Given the patient's recent positive COVID test, patient will be treated with Decadron 6 mg IV. 1014: Vital signs stable on supplemental oxygen. Imaging shows no acute traumatic injury. Labs are unremarkable with exception of the patient being positive for COVID. Patient be admitted to the [facility] team given his hypoxia and being positive for COVID. Spoke with Dr. Law who will evaluate the patient for admission. Administered Medications Discontinued Medications Dexamethasone (Dexamethasone Sod Inj 4 Mg/Ml Vial) 6 mg IV NOW STA Stop: 06/16/24 08:28 Last Admin: 06/16/24 08:43 Dose: 6 mg Documented By: EARL Sodium Chloride (Nss) 500 mls @ 999 mls/hr IV .Q31M ONE Stop: 06/16/24 07:53 Last Infusion: 06/16/24 08:29 Dose: Infused Documented By: Admin: 06/16/24 07:44 Dose: 999 mls/hr Documented By: EARL Ioversol (Optiray 320 125ml) 112 ml IV ONCE ONE Stop: 06/16/24 09:06 Last Admin: 06/16/24 09:05 Dose: 112 ml Documented By: REJI Critical Care Time Critical Care Time: Yes Total Critical Care Time: 51 I have personally spent greater than 51 minutes of critical care time in the direct management of this patient. This includes bedside care, interpretation of diagnostic studies, and testing, discussion with consultants, patient, and family members, and other required patient management activities. This 51 minutes is in excess of all separately billable procedures. Medical Decision Making Laboratory Data Attestation: I reviewed the patient's lab results. 06/16/24 07:35 06/16/24 07:35 Lab Results 06/16/24 06/16/24 Range/Units 07:35 07:58 WBC 6.49 (4.8-10.8) K/ul RBC 4.42 L (4.70-6.10) M/uL Hgb 12.9 L (14.0-18.0) g/dl Hct 39.4 L (42.0-52.0) % MCV 89.1 (80.0-100.0) fL MCH 29.2 (25.0-34.0) pg MCHC 32.7 (32.0-36.0) g/dL RDW Std Deviation 46.6 H (36.4-46.3) fL RDW Coeff of Jerry 14.5 (11.5-14.5) % Plt Count 339 (130-400) K/uL MPV 10.4 (9.4-12.4) fL Immature Gran % (Auto) 0.9 % Neut % (Auto) 63.2 % Lymph % (Auto) 25.9 % [place] % (Auto) 7.9 % Eos % (Auto) 1.8 % Baso % (Auto) 0.3 % Neut # (Auto) 4.10 (1.40-6.50) K/uL Lymph # (Auto) 1.68 (1.20-3.40) K/uL [place] # (Auto) 0.51 (0.11-0.59) K/uL Eos # (Auto) 0.12 (0.00-0.50) K/uL Baso # (Auto) 0.02 (0.00-0.20) K/uL Immature Gran # (Auto) 0.06 (0.01-0.20) K/uL PT 13.0 H (9.0-12.0) Seconds INR 1.2 H (0.9-1.1) APTT 32 H (21-31) Seconds PTT Ratio 1.2 Sodium 140 (136-145) mmol/L Potassium 4.0 (3.5-5.1) mmol/L Chloride 108 H (98-107) mmol/L Carbon Dioxide 23 (21-32) mmol/L Anion Gap 9 (3-11) BUN 33 H (6-23) mg/dl Creatinine 1.19 (0.6-1.4) mg/dl Est Cr Clr Drug Dosing 62.9 ml/min eGFR 62.14 BUN/Creatinine Ratio 27.7 H (10-20) Glucose 108 H (70-99(Fasting)) mg/dl Lactate 2.0 (0.4-2.0) mmol/L Calcium 8.3 L (8.6-10.3) mg/dl Magnesium 2.1 (1.7-2.4) mg/dl Total Bilirubin 0.4 (0.2-1.0) mg/dl Direct Bilirubin 0.0 (0-0.2) mg/dl AST 29 (13-39) U/L ALT 38 (7-52) U/L Alkaline Phosphatase 69 (34-104) U/L Troponin I High Sens 12.6 (0-20) pg/ml B-Natriuretic Peptide 250 H (0-100) pg/ml Total Protein 6.7 (6.0-8.3) gm/dl Albumin 3.5 (3.4-5.0) gm/dl Lipase 13 (11-82) U/L Procalcitonin 0.06 (0-0.5) ng/ml Urine Color Dark Yellow Urine Appearance Turbid A (Clear) Urine pH 5.5 (4.5-7.5) Ur Specific [place] 1.029 (1.000-1.030) Urine Protein 1+ H (Negative) Urine Glucose (UA) Negative (Negative) Urine Ketones Trace H (Negative) Urine Blood 2+ H (Negative) Urine Nitrite Negative (Negative) Urine Bilirubin Negative (Negative) Urine Urobilinogen Negative (Negative) Ur Leukocyte Esterase Trace H (Negative) Urine WBC (Auto) 6-10 H (0-5) /hpf Urine RBC (Auto) >20 H (0-2) /hpf U Hyaline Cast (Auto) 6-10 H (0-2) /lpf U Epithel Cells (Auto) 0-2 (0-2) /hpf Urine Bacteria (Auto) None Seen (None Seen) Hyaline Casts Present A (None Presnt) /lpf SARS-CoV-2 (PCR) POSITIVE A (Negative) Influenza Type A (PCR) Negative (Neg) Influenza Type B (PCR) Negative (Neg) RSV (RT-PCR) Negative (Neg) Imaging Data Attestation: I personally reviewed and interpreted this imaging study as follows: My Impression: Chest x-ray negative. Airway clear. No pneumothorax. No consolidation. No cardiomegaly or cephalization.. No free air under the diaphragm. No fractures of the skeletal structures. Radiologist's Impression: Abdomen/Pelvis CT 06/16/24 07:21 CT OF THE ABDOMEN AND PELVIS WITH CONTRAST CLINICAL HISTORY: Fall. COMPARISON STUDY: CT of the abdomen and pelvis June 06, 2024. TECHNIQUE: Following IV administration of 112 mL of Optiray, axial images of the abdomen and pelvis were obtained from the lung bases to the proximal femurs. Images were reviewed in the axial, sagittal, and coronal planes. IV contrast was administered without complication. Automated exposure control was utilized for the study. A dose lowering technique was utilized adhering to the principles of ALARA. CT DOSE: 3793.08 mGy.cm FINDINGS: Please note that the chest CT will be reported separately. Emphysema, a hiatal hernia and lower lobe opacity suggestive of atelectasis are better depicted on that exam. There is no evidence for traumatic injury to the liver, spleen, adrenal glands, kidneys or pancreas. There are bilateral renal cysts. Hypodense splenic lesions are likely benign. There is no significant biliary ductal dilatation status post cholecystectomy. The adrenal glands, liver and pancreas are unremarkable. The caliber and wall thickness of small and large bowel are normal. Postoperative findings within the right inguinal canal are present. A [place] balloon within the bladder is noted. This colonic diverticulosis. No evidence for acute diverticulitis. No acute fractures within the lumbar spine, pelvis or hips are identified. IMPRESSION: 1. No acute traumatic findings within the abdomen or pelvis. No significant change since prior CT. 2. No bowel obstruction. No bowel wall thickening. Colonic diverticulosis. No evidence for acute diverticulitis. ACT 112: Negative or not required by law. Electronically signed by: Adam Benson M.D. 06/16/2024 9:[address] 06/16/24 07:21 CT cervical spine wo con CT DOSE: 3793.08mGy*cm CLINICAL HISTORY: Ground-level fall COMPARISON: 12/26/2021 TECHNIQUE: Multiple axial CT images of the cervical spine were obtained without contrast. Sagittal and coronal reconstructions were done. A dose lowering technique was utilized adhering to the principles of ALARA. FINDINGS: The left maxillary antrum is opacified. There is no evidence of acute fracture or traumatic malalignment. The prevertebral soft tissues are negative. The odontoid and atlantoaxial articulation are intact. Multilevel cervical spondylosis is redemonstrated. 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 IMPRESSION: Stable exam; no acute traumatic cervical spine injury identified. The left maxillary antrum is opacified. The aortic arch is ectatic. ACT 112: Negative or not required by law. The above report was generated using voice recognition software. It may contain grammatical, syntax or spelling errors. Electronically signed by: Rhonda Sterling M.D. 06/16/2024 9:40 AM Chest X-Ray 06/16/24 07:21 XR chest 1V portable CLINICAL HISTORY: fall COMPARISON STUDY: Chest CT April 14, 2024. Chest radiograph June 08, 2024. FINDINGS: Left subclavian biventricular pacer/AICD is in place. Cardiomegaly is again noted. There is underlying emphysema. Bibasilar opacities are similar to prior exam and favor atelectasis. There is no consolidation. There is no evidence for pulmonary edema. Elevation of the left hemidiaphragm is again noted. Blunting of the left costophrenic angle is due to epicardial fat pad. IMPRESSION: No acute cardiopulmonary findings. No change in appearance of the chest. ACT 112: Negative or not required by law. Electronically signed by: Adam Benson M.D. 06/16/2024 8:[address] 06/16/24 07:21 CT head/brain wo con CLINICAL HISTORY: Ground-level fall TECHNIQUE: Multiple axial CT images of the head were obtained without contrast. Sagittal and coronal reconstructions were done. A dose lowering technique was utilized adhering to the principles of ALARA. CT DOSE: 3793.08mGy*cm COMPARISON: 05/31/2020 FINDINGS: CT findings are stable. There is no intra-axial or extra-axial fluid collection, hemorrhage, or mass. Senescent atrophy and small vessel insufficiency changes are once again noted. There is no skull fracture. There is a small posterior convexity scalp hematoma. IMPRESSION: Stable exam; no acute intracranial process. ACT 112: Negative or not required by law. The above report was generated using voice recognition software. It may contain grammatical, syntax or spelling errors. Electronically signed by: Rhonda Sterling M.D. 06/16/2024 9:31 AM Pelvis X-Ray 06/16/24 07:21 XR pelvis 1-2V routine CLINICAL HISTORY: fall COMPARISON: 12/21/2018 FINDINGS: Single view pelvis is unchanged. There is no acute traumatic osseous or articular injury identified. The hips are normally aligned. There is no fracture identified. There are degenerative changes in the lower lumbar spine. The SI joints are unremarkable. IMPRESSION: No acute traumatic injury identified. ACT 112: Negative or not required by law. Electronically signed by: Rhonda Sterling M.D. 06/16/2024 8:49 AM Chest CTA 06/16/24 08:43 CT ANGIOGRAPHY OF THE CHEST, PULMONARY EMBOLUS PROTOCOL CLINICAL HISTORY: Shortness of breath. Evaluate for pulmonary embolus. COMPARISON STUDY: Chest CT April 14, 2024. Chest radiograph performed earlier today. TECHNIQUE: Following IV administration of Optiray, helical axial images of the chest were obtained utilizing the pulmonary embolus protocol. Maximal intensity projections and sagittal and coronal reformats were viewed on an independent 3D workstation. IV contrast was administered without complication. Automated exposure control was utilized for the study. A dose lowering technique was utilized adhering to the principles of ALARA. FINDINGS: No pulmonary emboli are identified although segmental and subsegmental pulmonary arteries within the lower lobes are suboptimally opacified. A left subclavian pacer is in place. The heart is moderately enlarged. A hiatal hernia with partially intrathoracic stomach is again noted. There is no thoracic lymphadenopathy. Emphysema is again noted. Lower lung predominant groundglass opacities are unchanged. Linear densities within the lower lobes are also unchanged and favor scarring. There is no consolidation to suggest pneumonia. No pneumothorax or pleural effusion is present. A 1.3 cm focus of secretions within the right mainstem bronchus is present. There are no acute fractures within the bony thorax. Abdomen and pelvis CT will be reported separately. IMPRESSION: 1. No pulmonary emboli identified although lower lobe segmental and subsegmental pulmonary arteries suboptimally opacified. 2. No significant change in appearance of the chest. Lower lobe ground glass opacities with linear densities within the lower lobes and lingula suggestive of scarring. No consolidation to suggest pneumonia. 3. Cardiomegaly. 4. Emphysema. ACT 112: Negative or not required by law. Electronically signed by: Adam Benson M.D. 06/16/2024 9:35 AM ECG Data Attestation: I personally reviewed and interpreted this ECG as follows: Additional Comments: Paced rhythm with a rate of 90. RI 126 QRS 144 QTc 530. No ectopy. Baseline wander in lead V6. [facility] [place] Narrative 0716: The patient was evaluated in room B4. A complete history and physical exam was performed Cardiac monitoring: An order was placed for continuous cardiac monitoring. The monitor shows a rate of 80 with paced rhythm interpreted by me 0822: Patient came hypoxic on room air. Supplemental oxygen applied via nasal cannula which improved the patient's oxygen saturation. Given the patient's recent positive COVID test, patient will be treated with Decadron 6 mg IV. 1014: Vital signs stable on supplemental oxygen. Imaging shows no acute traumatic injury. Labs are unremarkable with exception of the patient being positive for COVID. Patient be admitted to the [facility] team given his hypoxia and being positive for COVID. Spoke with Dr. Law who will evaluate the patient for admission. Impression & Plan COVID-19, Hypoxia, CHI (closed head injury), Fall Discharge Plan Visit Data Chief Complaint: Fall Stated Complaint: FALL, CONTUSION TO HEAD ED Provider: Keanu Parks Discharge Problem: COVID-19, Hypoxia, CHI (closed head injury), Fall Patient Disposition: Admitted As Inpatient Forms Stand Alone Forms: My [facility] Prescriptions Prescriptions: No Action bumetanide 1 mg tablet 1 mg PO QAM Qty: 90 3RF potassium chloride 20 mEq tablet extended release 20 meq PO BID Qty: 200 3RF sacubitril-valsartan 49-51 mg tablet 1 tab PO AMPM Hold Instructions: hold until you see your outpatient doctors cetirizine 10 mg tablet 10 mg PO QDB carvedilol 25 mg tablet 25 mg PO BID Rx Instructions: must administer with a meal/food bupropion HCl 100 mg tablet 100 mg PO BID Rx Instructions: TAKE THIS MEDICATION EVERY MORNING AND AT NOON albuterol sulfate 90 mcg/actuation HFA aerosol inhaler 2 puffs inhalation Q6H PRN (Reason: Shortness Of Breath Or Wheezing) docusate sodium 100 mg capsule 100 mg PO BID finasteride 5 mg tablet 5 mg PO QAM pantoprazole 40 mg tablet,delayed release (DR/EC) 80 mg PO .@NOON Eliquis 5 mg tablet 5 mg PO BID Qty: 180 3RF pramipexole 0.375 mg tablet extended release 24 hr 0.375 mg PO QAM Qty: 90 3RF PreserVision AREDS 4,296 mcg-226 mg-90 mg capsule 1 cap PO BID aspirin 81 mg Tablet,Delayed Release (Dr/Ec) 81 mg PO QAM oxycodone 10 mg Tablet 10 mg PO Q12H Patient Comments: takes 6am and 6pm Rx Instructions: take at 6 am & 6 pm sennosides 8.6 mg Tablet 8.6 mg PO TID Rx Instructions: takes in morning ,at noon and bedtime Refresh Lacri-Lube 56.8-42.5 % Ointment 1 applic OPHTHALMIC (EYE) HS Rx Instructions: 1/8th INCH IN EACH EYE Stiolto Respimat 2.5-2.5 mcg/actuation Mist 2 puff INHALATION QAM epinephrine 0.3 mg/0.3 mL Auto-Injector 0.3 mg IM DIRECTED PRN (Reason: sEVERE ALLERGIC REACTION) rosuvastatin 10 mg tablet 10 mg PO QPM mometasone 50 mcg/actuation [place],Non-Aerosol 2 spray INTRANASAL BID Rx Instructions: administer into each nostril nystatin 100,000 unit/gram Powder 1 applic TOPICAL TID Qty: 15 1RF Rx Instructions: apply to rash in groin for 7 days then stop levofloxacin 750 mg tablet 750 mg PO ONCE Qty: 1 0RF Rx Instructions: take on 06/12/24 Referrals Referrals: Tramaine Peterson MD [Primary Care Provider] - Discharge Problem: CHI (closed head injury) Qualifiers: Encounter type: initial encounter Qualified Code(s): S09.90XA - Unspecified injury of head, initial encounter Fall Qualifiers: Encounter type: initial encounter Qualified Code(s): W19.XXXA - Unspecified fall, initial encounter
[2024-06-16 11:09] LABS: C Reactive Protein 2.98 mg/dl (0-0.5)
--- NOTE | 2024-06-16 11:22 | History & Physical Report ---
Date of Service June 16, 2024 Assessment & Plan (1) Fall: Plan: Suspect secondary chronic neuropathy of his bilateral lower extremities (L>R), likely more acutely worse from possible diarrhea illness and recent pneumonia/COVID however will get MRI brain to rule out stroke as he feels it is much worse than usual. If MRI brain negative no further workup required. Small hematoma on posterior scalp has resolved fall - okay to continue Eliquis starting tonight High risk for stopping his Eliquis given x 3 pulmonary embolisms history and atrial fibrillation but if he continues to fall this may need to be reconsidered or possibly dose lowered PT/OT (2) Diarrhea: Plan: Laxatives at baseline therefore suspect just cutting back on this will help Stool and C. difficile PCR to assess for infective etiology (3) SARS-CoV-2 positive: Plan: He has no significant symptoms suggestive of COVID-19. Initial test positive on June 05. Discussed with infection control and no longer needs isolation at this time. (4) Sleep apnea: Plan: BiPAP HS (5) Bilateral foot-drop: Plan: Chronic idiopathic peripheral neuropathy under neurology as an outpatient (6) Scalp hematoma: Plan Atrial fibrillation - continue anticoagulation with warfarin, continue carvedilol for rate control Chronic heart failure with reduced ejection fraction - Entresto on hold since last admission due to hypotension, continue carvedilol and Bumex. Appears euvolemic at this time. Parkinsonism - continue pramipexole BPH - Kingston catheter now in place Coronary artery disease - aspirin, rosuvastatin, carvedilol VTE prophylaxis - Eliquis 5 mg p.o. BID Diet - low-sodium, heart healthy Disposition - admit to [facility] Admission and Anticipated Discharge Date Admission Date: June 16, 2024 History of Present Illness Chief Complaint: Fall Primary Care Provider: Tramaine Peterson MD Royce Louise is a 79 year old male who presents to the ER following a ground- level fall earlier today. He takes Eliquis for history of x 3 pulmonary embolism and atrial fibrillation. Today when getting out of bed he was trying to get to the bathroom and was very unsteady on his feet with his left leg much weaker than usual. He fell and hit the back of his head. No loss of consciousness. He has longstanding peripheral neuropathy with numbness from his knees and elbows distally and bilateral foot drop. His left leg has always been worse than his right leg although reportedly this weakness is significantly off his baseline. He notes the last 2 days he has had a generalized illness consisting of 2 days of nausea and vomiting with generalized abdominal pain, loss of bowel control and a little diarrhea. This illness appears to have resolved and he has not of these symptoms today. No fevers or chills no respiratory or urinary symptoms. He tested positive for COVID on . This was treated with remdesivir. He currently denies any nasal congestion, shortness of breath, cough, sinus pain. Allergies Allergy/AdvReac Type Severity Reaction Status Date / Time bee venom protein (honey bee) Allergy Severe SWELLING, Verified 06/16/24 10:50 SOB Penicillins Allergy Severe SWELLING, Verified 06/16/24 10:50 DIFFICULTY BREATHING lidocaine Allergy Mild RASH Verified 04/14/24 08:21 gabapentin Allergy Unknown On med Unverified 06/16/24 10:50 list w/ [facility] icosapent ethyl Allergy Unknown On med Unverified 06/16/24 10:50 [facility] w/ [facility] pregabalin Allergy Unknown On med Unverified 06/16/24 10:50 [facility] w/ [facility] cefdinir AdvReac Severe Vomiting Verified 06/16/24 10:50 hydrocodone AdvReac Mild nausea Verified 06/16/24 10:50 oxycodone AdvReac Mild nausea-SLOW Verified 06/16/24 10:50 RELEASE IS OK Home Medications Medication Instructions Recorded Confirmed Type albuterol sulfate 90 mcg/actuation 2 puffs inhalation Q6H PRN 12/01/18 06/16/24 History aerosol inhaler Shortness Of Breath Or Wheezing bupropion HCl 100 mg tablet 100 mg PO BID 12/01/18 06/16/24 History docusate sodium 100 mg capsule 100 mg PO BID 12/01/18 06/16/24 History finasteride 5 mg tablet 5 mg PO QAM 12/01/18 06/16/24 History aspirin 81 mg tablet,delayed 81 mg PO QAM 12/21/18 06/16/24 History release sennosides 8.6 mg tablet 8.6 mg PO BID 12/21/18 06/16/24 History white petrolatum-mineral oil 56.8 1 applic ophthalmic (eye) HS 12/21/18 06/16/24 History %-42.5 % eye ointment (Refresh Lacri-Lube) sacubitril 49 mg-valsartan 51 mg 1 tab PO AMPM 11/25/20 06/16/24 History tablet pantoprazole 40 mg tablet,delayed 40 mg PO BID 03/10/21 06/16/24 History release tiotropium 2.5 mcg-olodaterol 2.5 2 puff inhalation QAM 12/02/22 06/16/24 History mcg/actuation mist for inhalation (Stiolto Respimat) cetirizine 10 mg tablet 10 mg PO QDB 05/17/23 06/16/24 History epinephrine 0.3 mg/0.3 mL 0.3 mg IM DIRECTED PRN sEVERE 07/08/23 06/16/24 History injection, auto-injector ALLERGIC REACTION bumetanide 1 mg tablet 1 mg PO QAM #90 tabs 10/10/23 06/16/24 Rx potassium chloride 20 mEq 20 meq PO BID #200 tabs 10/10/23 06/16/24 Rx tablet,extended release apixaban 5 mg tablet (Eliquis) 5 mg PO BID #180 tabs 11/23/23 06/16/24 Rx carvedilol 25 mg tablet 0 mg PO BID 03/27/24 06/16/24 History vitamins A,C,W-bsjx-rckqai 4,296 1 cap PO BID 03/27/24 06/16/24 History mcg-226 mg-90 mg capsule (PreserVision AREDS) nystatin 100,000 unit/gram topical 1 applic topical TID #15 grams 06/11/24 06/16/24 Rx powder aluminum hydroxide gel 320 mg/5 mL 960 mg PO DAILY PRN Heartburn 06/16/24 06/16/24 History oral suspension nystatin 100,000 unit/gram topical 1 applic topical BID PRN Jenny 06/16/24 06/16/24 History ointment skin infection ondansetron HCl 8 mg tablet 4 mg PO Q8H PRN Nausea And Vomiting 06/16/24 06/16/24 History oxycodone 10 mg tablet,crush 10 mg PO BID 06/16/24 06/16/24 History resistant,extended release 12 hr (OxyContin) pramipexole 0.375 mg 0 mg PO QAM Parkinsonism 06/16/24 06/16/24 History tablet,extended release 24 hr rosuvastatin 20 mg tablet 10 mg PO DAILY 06/16/24 06/16/24 History Past Med/Surg History Problem List (Updated 06/16/24 @ 23:39 by Howard Law MD) Scalp hematoma SARS-CoV-2 positive Diarrhea Fall (Acute) CHI (closed head injury) (Acute) Hypoxia (Acute) CAD (coronary artery disease) s/p stent 2010 Sleep apnea bipap Presence of combination internal cardiac defibrillator (ICD) and pacemaker first placed 2010 @ [facility] replaced in 2014 & 2021 @ [facility]--biventricular [employer]. reports last check 11/25/22. Paroxysmal atrial fibrillation Abdominal distension Catheter-associated urinary tract infection UTI (urinary tract infection) (Acute) CHF (congestive heart failure) (Acute) Anticoagulant long-term use PAT (paroxysmal atrial tachycardia) Cardiomyopathy Hypotension (Acute) Atrial fibrillation, controlled Parkinsonism Stage III pressure ulcer of buttock (Acute) Centrilobular emphysema Bilateral foot-drop Esophagitis Dysphagia Biliary dyskinesia (Chronic) Idiopathic peripheral neuropathy (Acute) Cervical spondylosis without myelopathy (Acute) Cervical radiculopathy (Acute) Complex renal cyst Ulnar neuropathy of both upper extremities Agent orange exposure Warfarin anticoagulation (Chronic) Balance problem Elevated PSA 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 Cervicogenic headache Spasticity upper limbs Medical History HFrEF (heart failure with reduced ejection fraction) Atrial tachycardia CHF (congestive heart failure) Tachycardia Pressure ulcer of right heel, stage 4 Benign essential hypertension Ischemic cardiomyopathy Euvolemic at 11/23/22 cardio appt Elevated INR Near syncope Tachycardia Leg pain Elevated lactic acid level Elevated INR Cellulitis Unstageable pressure ulcer of right heel Unstageable pressure ulcer of left heel Hypoxia Vomiting Acute kidney injury Elevated troponin Acute kidney failure Acute UTI Sepsis Severe sepsis Encounter for pre-operative examination Intrinsic minus hand POWERS (dyspnea on exertion) Preop testing Episode of confusion Right upper quadrant abdominal pain Hand laceration Dog bite Chest pain Cellulitis of left arm Peripheral arterial disease Hypertension Tremor ICD (implantable cardioverter-defibrillator) in place Neuropathy Complex sleep apnea syndrome NYHA class 4 acute on chronic systolic heart failure History of kidney stones Emphysema lung Legally blind Chronic back pain History of urinary self-catheterization self caths every other night History of DVT of lower extremity 2010 Macular degeneration Hearing deficit Depression Migraine Myocardial Infarction 10/2010--follows with Dr. Abreu Pulmonary embolism 1992 and 2010 after heart attack--follows with Dr. Abreu Asthma inhaler prn Surgical History Presence of biventricular automatic cardioverter/defibrillator (AICD) S/P epidural steroid injection History of foot surgery plantar fasciitis History of open reduction and internal fixation (ORIF) procedure left foot--hardware removed History of prostate biopsy x3--precancerous, just monitoring for now History of prostate surgery 07/2016--[facility] prostate vaproization History of cystoscopy multiple History of colonoscopy with polypectomy History of esophagogastroduodenoscopy (EGD) History of right inguinal hernia repair x3 History of Khari fundoplication History of cholecystectomy History of tooth extraction History of eye surgery right--macular degeneration History of bilateral cataract extraction History of cardiac cath 10/2010 @ [facility]--1 stent placed Family History Son Family history of diabetes mellitus Other Family history non-contributory No family history of adverse response to anesthesia Social History Smoking Status: Former smoker Tobacco Type: Cigarettes Second Hand Exposure: Yes (father smoked); Do You Dip or Chew Tobacco: No; Hx Alcohol Use: No Hx Substance Use: No Preferred Language: Indian Communication Ability: Effective Improvement Analyst Required: No Beliefs That Will Affect Care: None marital status: Current Living Situation: Spouse Current Living Situation Comment: with Ar[employer]eli current occupational status: retired Feels Safe at Home: Yes Assistive Devices: Oxygen - at Night, Scooter/Electric Scooter, Walker and Wheelchair Review of Systems Review of Systems: All systems reviewed & are unremarkable except as noted in HPI & below Physical Exam Constitutional: well developed; + not well nourished and no acute distress Eyes: PERRL, conjunctivae normal, anicteric sclerae Respiratory: normal respiratory effort, lungs clear to auscultation Cardiovascular: Rate/Rhythm: regular rate and regular rhythm Heart Sounds: no murmur Extremities: normal capillary refill; no calf tenderness and no pedal edema Gastrointestinal (Abdomen): normal bowel sounds, soft, nontender, no hepatosplenomegaly Neurologic: moves all extremities, + focal motor deficit (Bilateral foot drop left greater than right) and awake; not confused Speech / Cognition: normal speech Motor/Sensory: no tremor Psychiatric: A+Ox3, euthymic affect Results & Data Results & Data Vital Signs (Past 12 Hours) Vital Signs Temp Pulse Pulse Resp BP BP Pulse Ox 06/16/24 10:31 80 20 118/70 98 06/16/24 08:20 88 L 06/16/24 08:19 80 24 102/70 96 06/16/24 08:10 85 06/16/24 07:24 06/16/24 07:24 37.1 C 89 26 H 96/74 L 91 O2 Del Method O2 Flow Rate 06/16/24 10:31 Nasal Cannula 2 06/16/24 08:20 Room Air, Nasal Cannula 0 06/16/24 08:19 Nasal Cannula 2 06/16/24 08:10 06/16/24 07:24 Room Air, Nasal Cannula 06/16/24 07:24 Room Air Laboratory Results Abnormal lab results 06/16/24 06/16/24 Range/Units 07:35 07:58 RBC 4.42 L (4.70-6.10) M/uL Hgb 12.9 L (14.0-18.0) g/dl Hct 39.4 L (42.0-52.0) % RDW Std Deviation 46.6 H (36.4-46.3) fL PT 13.0 H (9.0-12.0) Seconds INR 1.2 H (0.9-1.1) APTT 32 H (21-31) Seconds Chloride 108 H (98-107) mmol/L BUN 33 H (6-23) mg/dl BUN/Creatinine Ratio 27.7 H (10-20) Glucose 108 H (70-99(Fasting)) mg/dl Calcium 8.3 L (8.6-10.3) mg/dl C-Reactive Protein 2.98 H (0-0.5) mg/dl B-Natriuretic Peptide 250 H (0-100) pg/ml Urine Appearance Turbid A (Clear) Urine Protein 1+ H (Negative) Urine Ketones Trace H (Negative) Urine Blood 2+ H (Negative) Ur Leukocyte Esterase Trace H (Negative) Urine WBC (Auto) 6-10 H (0-5) /hpf Urine RBC (Auto) >20 H (0-2) /hpf U Hyaline Cast (Auto) 6-10 H (0-2) /lpf Hyaline Casts Present A (None Presnt) /lpf SARS-CoV-2 (PCR) POSITIVE A (Negative) Diagnostic Findings CT head/brain wo con CLINICAL HISTORY: Ground-level fall TECHNIQUE: Multiple axial CT images of the head were obtained without contrast. Sagittal and coronal reconstructions were done. A dose lowering technique was utilized adhering to the principles of ALARA. CT DOSE: 3793.08mGy*cm COMPARISON: 05/31/2020 FINDINGS: CT findings are stable. There is no intra-axial or extra-axial fluid collection, hemorrhage, or mass. Senescent atrophy and small vessel insufficiency changes are once again noted. There is no skull fracture. There is a small posterior convexity scalp hematoma. IMPRESSION: Stable exam; no acute intracranial process. CT cervical spine wo con CT DOSE: 3793.08mGy*cm CLINICAL HISTORY: Ground-level fall COMPARISON: 12/26/2021 TECHNIQUE: Multiple axial CT images of the cervical spine were obtained without contrast. Sagittal and coronal reconstructions were done. A dose lowering technique was utilized adhering to the principles of ALARA. FINDINGS: The left maxillary antrum is opacified. There is no evidence of acute fracture or traumatic malalignment. The prevertebral soft tissues are negative. The odontoid and atlantoaxial articulation are intact. Multilevel cervical spondylosis is redemonstrated. 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 IMPRESSION: Stable exam; no acute traumatic cervical spine injury identified. The left maxillary antrum is opacified. The aortic arch is ectatic. XR chest 1V portable CLINICAL HISTORY: fall COMPARISON STUDY: Chest CT April 14, 2024. Chest radiograph June 08, 2024. FINDINGS: Left subclavian biventricular pacer/AICD is in place. Cardiomegaly is again noted. There is underlying emphysema. Bibasilar opacities are similar to prior exam and favor atelectasis. There is no consolidation. There is no evidence for pulmonary edema. Elevation of the left hemidiaphragm is again noted. Blunting of the left costophrenic angle is due to epicardial fat pad. IMPRESSION: No acute cardiopulmonary findings. No change in appearance of the chest. CT ANGIOGRAPHY OF THE CHEST, PULMONARY EMBOLUS PROTOCOL CLINICAL HISTORY: Shortness of breath. Evaluate for pulmonary embolus. COMPARISON STUDY: Chest CT April 14, 2024. Chest radiograph performed earlier today. TECHNIQUE: Following IV administration of Optiray, helical axial images of the chest were obtained utilizing the pulmonary embolus protocol. Maximal intensity projections and sagittal and coronal reformats were viewed on an independent 3D workstation. IV contrast was administered without complication. Automated exposure control was utilized for the study. A dose lowering technique was utilized adhering to the principles of ALARA. FINDINGS: No pulmonary emboli are identified although segmental and subsegmental pulmonary arteries within the lower lobes are suboptimally opacified. A left subclavian pacer is in place. The heart is moderately enlarged. A hiatal hernia with partially intrathoracic stomach is again noted. There is no thoracic lymphadenopathy. Emphysema is again noted. Lower lung predominant groundglass opacities are unchanged. Linear densities within the lower lobes are also unchanged and favor scarring. There is no consolidation to suggest pneumonia. No pneumothorax or pleural effusion is present. A 1.3 cm focus of secretions within the right mainstem bronchus is present. There are no acute fractures within the bony thorax. Abdomen and pelvis CT will be reported separately. IMPRESSION: 1. No pulmonary emboli identified although lower lobe segmental and subsegmental pulmonary arteries suboptimally opacified. 2. No significant change in appearance of the chest. Lower lobe ground glass opacities with linear densities within the lower lobes and lingula suggestive of scarring. No consolidation to suggest pneumonia. 3. Cardiomegaly. 4. Emphysema. CT OF THE ABDOMEN AND PELVIS WITH CONTRAST CLINICAL HISTORY: Fall. COMPARISON STUDY: CT of the abdomen and pelvis June 06, 2024. TECHNIQUE: Following IV administration of 112 mL of Optiray, axial images of the abdomen and pelvis were obtained from the lung bases to the proximal femurs. Images were reviewed in the axial, sagittal, and coronal planes. IV contrast was administered without complication. Automated exposure control was utilized for the study. A dose lowering technique was utilized adhering to the principles of ALARA. CT DOSE: 3793.08 mGy.cm FINDINGS: Please note that the chest CT will be reported separately. Emphysema, a hiatal hernia and lower lobe opacity suggestive of atelectasis are better depicted on that exam. There is no evidence for traumatic injury to the liver, spleen, adrenal glands, kidneys or pancreas. There are bilateral renal cysts. Hypodense splenic lesions are likely benign. There is no significant biliary ductal dilatation status post cholecystectomy. The adrenal glands, liver and pancreas are unremarkable. The caliber and wall thickness of small and large bowel are normal. Postoperative findings within the right inguinal canal are present. A Kingston balloon within the bladder is noted. This colonic diverticulosis. No evidence for acute diverticulitis. No acute fractures within the lumbar spine, pelvis or hips are identified. IMPRESSION: 1. No acute traumatic findings within the abdomen or pelvis. No significant change since prior CT. 2. No bowel obstruction. No bowel wall thickening. Colonic diverticulosis. No evidence for acute diverticulitis. XR pelvis 1-2V routine CLINICAL HISTORY: fall COMPARISON: 12/21/2018 FINDINGS: Single view pelvis is unchanged. There is no acute traumatic osseous or articular injury identified. The hips are normally aligned. There is no fracture identified. There are degenerative changes in the lower lumbar spine. The SI joints are unremarkable. IMPRESSION: No acute traumatic injury identified. Medications Administered ER medications given: Normal saline 500 mL bolus Dexamethasone 6 mg IV ECG Rate (beats per minute): 89 Rhythm: other (AV dual paced rhythm) Findings: no acute ischemic change Comparison ECG Date: from (June 05, 2024) Change: no significant change Code Status & VTE Plan Code Status Full VTE Prophylaxis Plan VTE Prophylaxis will be ordered: Yes PG Care Time/CCT Total # of Minutes Spent Total Time Spent with Patient: Total time spent is greater than 50% in coordination of care (as documented) at patient's floor/unit and/or counseling patient: Coding Level of Care Code 37246 INT INP/OBS CARE 3/75MIN Diagnoses Fall W19.XXXA Encounter type: initial encounter Diarrhea R19.7 SARS-CoV-2 positive U07.1 Sleep apnea G47.30 Bilateral foot-drop M21.371; M21.372 Scalp hematoma S00.03XA (1) Fall Encounter type: initial encounter Qualified Code(s): W19.XXXA - Unspecified fall, initial encounter
--- NOTE | 2024-06-16 12:42 | Electrocardiogram Report ---
Test Reason : Blood Pressure : */* mmHG Vent. Rate : 89 BPM Atrial Rate : 89 BPM P-R Int : 126 ms QRS Dur : 144 ms QT Int : 436 ms P-R-T Axes : 69 223 51 degrees QTcB Int : 530 ms AV dual-paced rhythm Abnormal ECG When compared with ECG of 05-Jun-2024 18:11, Vent. rate has increased by 8 bpm Confirmed by Tramaine Kruger ([id number]) on 06/16/2024 12:42:20 PM Referred By: REFERRED SELF Confirmed By: Tramaine Kruger
[2024-06-16] MEDS ORDERED: ACETAMINOPHEN 325 MG TAB PO PRN (13:02)
--- NOTE | 2024-06-16 13:02 | Magnetic Resonance Report ---
MRI OF THE BRAIN WITHOUT CONTRAST CLINICAL HISTORY: Left lower extremity weakness. Fall. COMPARISON STUDY: Head CT May 31, 2020. Head CT performed earlier today. MRI of the brain October 29, 2020. TECHNIQUE: Utilizing a 1.5 Peggy magnet and dedicated coil, multiplanar, multiecho imaging of the bra in was performed without IV contrast. FINDINGS: There are no foci of restricted diffusion to suggest acute infarct. No acute intracranial h emorrhage, midline shift or mass effect is present. Ventricular system is unremarkable. Basal cistern s are patent. Flow-voids for the major intracranial vessels are present. Mild white matter T2 hyperin tense foci are predominantly periventricular in distribution. The findings suggest small vessel disea se. No intracranial masses identified on unenhanced exam. Calvarial signal is normal. There is modera te mucosal thickening with air-fluid level with secretions within the left maxillary sinus. IMPRESSION: 1. No acute intracranial findings. 2. Left maxillary sinus mucosal thickening, small air-fluid level and secretions. ACT 112: Negative or not required by law. Electronically signed by: Adam Benson M.D. 06/16/2024 1:01 PM
[2024-06-16] MEDS: carvediloL 12.5 MG TAB PO STA (14:04)
[2024-06-16] MEDS: buPROPion HCl 100 MG TABLET PO SCH (14:04)
[2024-06-16] MEDS: ASPIRIN 81 MG ECTAB PO SCH (14:04)
[2024-06-16] MEDS: PRAMIPEXOLE DIHYDROCHLO 0.25 MG TAB PO SCH (14:04)
[2024-06-16] MEDS: NYSTATIN POWDER 15GM BTL EXT SCH (14:05)
[2024-06-16] MEDS: oxyCODONE HCL 10 MG TABCR (OxyCONTIN) PO SCH (20:08)
[2024-06-16] MEDS: POTASSIUM CHLORIDE CRTAB 20 MEQ TABCR PO SCH (20:08)
[2024-06-16] MEDS: carvediloL 25 MG TAB PO SCH (20:47)
[2024-06-16] MEDS: APIXABAN 5 MG TABLET PO SCH (20:47)
[2024-06-16] MEDS: PANTOprazole 40 MG TAB PO SCH (20:47)
[2024-06-17 06:06] LABS: Basophils # (auto) 0.01 K/uL (0.00-0.20); Basophils % (auto) 0.2 %; Eosinophils # (auto) 0.02 K/uL (0.00-0.50); Eosinophils % (auto) 0.3 %; Hematocrit (blood only) 34.1 % (42.0-52.0); Hemoglobin 11.2 g/dl (14.0-18.0); Immature Granulocytes # (auto) 0.02 K/uL (0.01-0.20); Immature Granulocytes % (auto) 0.3 %; Lymphocytes # (auto) 1.87 K/uL (1.20-3.40); Lymphocytes % (auto) 31.5 %; Mean Corpuscular Hemoglobin 29.3 pg (25.0-34.0); Mean Corpuscular Hgb Conc 32.8 g/dL (32.0-36.0); Mean Corpuscular Volume 89.3 fL (80.0-100.0); Mean Platelet Volume 10.3 fL (9.4-12.4); Monocytes # (auto) 0.48 K/uL (0.11-0.59); Monocytes % (auto) 8.1 %; Neutrophils # (auto) 3.53 K/uL (1.40-6.50); Neutrophils % (auto) 59.6 %; Platelet Count 296 K/uL (130-400); RDW Coefficient of Variation 14.5 % (11.5-14.5); Red Blood Count 3.82 M/uL (4.70-6.10); White Blood Count 5.93 K/ul (4.8-10.8)
[2024-06-17 06:36] LABS: BUN Creatinine Ratio 32.7 (10-20); Calcium 8.1 mg/dl (8.6-10.3); Creatinine Clr Calc Pharmacy 76.3 ml/min; Potassium 4.2 mmol/L (3.5-5.1)
--- NOTE | 2024-06-17 08:16 | Hospitalist Progress Note ---
Date of Service June 17, 2024 Assessment & Plan (1) Fall: Plan: Presented with ground level fall trying to get to the bathroom with unsteady feet/legs - reports felt weaker than usual and fell and hit the back of his head. Suspect secondary chronic neuropathy of his bilateral lower extremities (L>R), likely more acutely worse from possible diarrhea illness and recent pneumonia/COVID however obtained MRI brain to r/o CVA and was negative for such. Small hematoma posteiror scalp, eliquis resumed PM 2 given high risk for PEs given hx afib and prior PEs in the past. Recent relevant historical information: -Hospitalized earlier this month for Sepsis/UTI w/ klebsiella UTI and treated with Cipro/Ertapenem, also +COVID and completed course remdesivir. -Also had ablation procedure at [facility] [place] [facility] the week prior to that hospitalization. ICD in place. Note prior ECHO w/ EF 25-30% and entresto on hold since last admission for hypotension but was continued on coreg/bumex for diuresis. On admission reported two days of generalized illness with nausea/vomiting and generalized abdominal pain and loss of bowel control with some diarrhea but no symptoms of such on day of admission and deals with constipation issues at baseline. Repeat Biofire w/ continued +COVID but discussed w/ infection control and no need for isolation at this time Trauma imaging w/o acute fractures/retroperitoneal bleeding or acute abn with exception CXR noted possible b/l pna vs atelectasis but CTA w/ atelectasis/ground glass but no consolidation to suggest PNA -- no increased sputum production/fever/leukocytosis on admission, procal NOT elevated at 0.06. Did have some sinus congestion and started flonase/mucinex BID for congestion. Incentive spirometer ordered for atelectasis and should be encouraged MRI brain NEGATIVE for acute CVA B12 not deficient Xray lumbar spine ordered given no prior imaging/leg weakness --> no acute fracture/subluxation. --Does notes multilevel moderate to severe degenerative changes and could consider CT/MRI imaging pending repeat evals Xray heels w/o evidence for osteo, waffle boots in place. Wound RN consulted (no cellulitis/drainage noted) Device interrogation ordered to see if any afib contributing w/ his low EF to cause symptoms. Will repeat limited ECHO to see if further redution in EF Urine reported darker per day prior --> hyaline casts on UA but no bacteria but can send urine cx - follow up Blood cx pending from admission. Vit D low, PO replacement to be ordered Bowel regimen for constipation, escalate as needed Check orthostatic VS, continues on bumex once daily, as above entresto has been on hold Remains OFF abx at this time but will continue to monitor for infectious etiology DVT proph; jacintoquis continued PT/OT consults pending, updated at bedside. (2) Diarrhea: Plan: Laxatives at baseline therefore suspect just cutting back on this will help -- he reports significant concerns w/ constipation at baseline, did resume home reg imen given abdominal distention. No diarrheal illness/issues noted on CTAP. Stool biofire/cdiff ordered, f/u (3) SARS-CoV-2 positive: Plan: + testing on admission with initial testing on 06/05 and per infection control no need for isolation at this time. supportive care, incentive spirometer/mucinex ordered and will follow up. No hypoxia (4) Sleep apnea: Plan: BiPAP HS continued, unit in room (5) Bilateral foot-drop: Plan: Chronic idiopathic peripheral neuropathy under neurology as an outpatient B12 not deficienct Lumbar xray without fracture/subluxation however multilevel degnerative changes and could consider further imaging w/ CT/MRI. MRI brain negative as above (however without contrast if looking for mass) (6) Scalp hematoma: Plan: noted, stable on exam (7) Cardiomyopathy: Plan: Hx cardiomyopathy, HFrEF, atrial fibrillation s/p ablation in the past month as above. EF 25-30% Remains on coreg BID, bumex once daily. Entresto on hold since last admission 2nd to hypotension but will monitor if symptomatic w/ hypotension could consider (?hypotension issues 2nd to sepsis/UTI) BNP checked on admission, improved from earlier this month (did get additional IV diuretics at that time) Repeat limited echo to eval any further reduction in EF, ICD interrogation as above Added daily weights, I&Os and will monitor volume status in AM. Doesn't appear significantly volume overloaded at this time and will continue coreg/bumex for now and onitor to resume entresto as able (8) Atrial fibrillation, controlled: Plan: EKG pacecd on admission, interrogation above. keep mag/K replete. Remains on Eliquis/Coreg (9) CHF (congestive heart failure): Plan: as above Plan Parkinsonism - continue pramipexole BPH - Ray catheter now in place, repeat urine cx Coronary artery disease - aspirin, rosuvastatin, carvedilol VTE prophylaxis - Eliquis 5 mg p.o. BID Dispo: continued inpatient stay, therapy evals. additional eval as outlined Admission and Anticipated Discharge Date Admission Date: June 16, 2024 Supervising Physician Co-Signing Physician Notes The patient was not seen by me. The chart was reviewed. Case discussed with BRYNN Fernández. Agree with assessment and plan Subjective Eval this morning, in room at bedside. Reports feeling slightly improved today. Admitted for reports left leg weakness (when usually his right leg is the weaker leg). He reported he had been attempting to go to the bathroom and that his legs felt so weak that he had fall to the ground and bumped his head. MRI was negative, does have some sinus thickening and he does report some sinus congestion, will trial some flonase. Also reports constipation issues at baseline, no BM recently and bowel regimen to be ordered: reports use miralax, senna and colace use w/ "possible mag citrate" [facility] when really backed up but then causes blow out. Does use boots at baseline to keep heels elevated but reports have healed. R heel with small callous, L heel slightly boggy/pink but no opening/drainage. Prior reports in past did have nail stuck there he didn't know about bc his neuropathy is so bad at baseline (did get tetanus shot at that time). PT/OT consults pending, device interrogation and repeat ECHO to see about EF. Hx afib and ablation just done earlier this month. Urine cx to be send -- yellow in bag but was darker day prior per . Questions/concerns addressed at this time. Physical Exam Physical Exam: General: 79 yo obese male sitting up in bed, NAD but fatigued appearing, at bedside Head atraumatic, normocephalic, mm slightly dry, trachea midline Resp: slight diminished in the bases but no overt wheezing/crackles, on room air CV: RRR, +murmur, trace pedal edema, S3, pulses present, calves nontender GI: +BS, slight distension, no overt tenderness/guarding ray draining yellow urine MSK/Neuro: no facial droop/slurred speech, is NOT confused, able to follow commands as able with phsycial limitations bilateral neuropathy at baseline to LE Foot drop b/l posterior heels : R w/ callous, no drainage/redness/pain L heel slight boggy/no drainage/cellulitis appearance waffle boots in place Psych: AOx3, cooperative but fatigued appearing Results & Data Results & Data Vital Signs (Past 12 Hours) Vital Signs Temp Pulse Pulse Resp BP Pulse Ox O2 Del Method 06/17/24 07:29 80 96 Room Air 06/17/24 07:16 37.0 C 126 H 17 117/74 81 L Room Air 06/17/24 03:35 78 22 93 06/16/24 23:15 83 21 91 O2 Flow Rate 06/17/24 07:29 06/17/24 07:16 06/17/24 03:35 3 06/16/24 23:15 3 Laboratory Results 06/17/24 06/16/24 06/16/24 Range/Units 05:34 07:58 07:39 WBC 5.93 (4.8-10.8) K/ul RBC 3.82 L (4.70-6.10) M/uL Hgb 11.2 L (14.0-18.0) g/dl Hct 34.1 L (42.0-52.0) % MCV 89.3 (80.0-100.0) fL MCH 29.3 (25.0-34.0) pg MCHC 32.8 (32.0-36.0) g/dL RDW Std Deviation 47.0 H (36.4-46.3) fL RDW Coeff of Jerry 14.5 (11.5-14.5) % Plt Count 296 (130-400) K/uL MPV 10.3 (9.4-12.4) fL Immature Gran % (Auto) 0.3 % Neut % (Auto) 59.6 % Lymph % (Auto) 31.5 % [place] % (Auto) 8.1 % Eos % (Auto) 0.3 % Baso % (Auto) 0.2 % Neut # (Auto) 3.53 (1.40-6.50) K/uL Lymph # (Auto) 1.87 (1.20-3.40) K/uL [place] # (Auto) 0.48 (0.11-0.59) K/uL Eos # (Auto) 0.02 (0.00-0.50) K/uL Baso # (Auto) 0.01 (0.00-0.20) K/uL Immature Gran # (Auto) 0.02 (0.01-0.20) K/uL PT (9.0-12.0) Seconds INR (0.9-1.1) APTT (21-31) Seconds PTT Ratio Sodium 137 (136-145) mmol/L Potassium 4.2 (3.5-5.1) mmol/L Chloride 108 H (98-107) mmol/L Carbon Dioxide 22 (21-32) mmol/L Anion Gap 7 (3-11) BUN 32 H (6-23) mg/dl Creatinine 0.98 (0.6-1.4) mg/dl Est Cr Clr Drug Dosing 76.3 ml/min eGFR 78.44 BUN/Creatinine Ratio 32.7 H (10-20) Glucose 112 H (70-99(Fasting)) mg/dl Calcium 8.1 L (8.6-10.3) mg/dl Magnesium (1.7-2.4) mg/dl Total Bilirubin (0.2-1.0) mg/dl Direct Bilirubin (0-0.2) mg/dl AST (13-39) U/L ALT (7-52) U/L Alkaline Phosphatase (34-104) U/L Troponin I High Sens (0-20) pg/ml C-Reactive Protein (0-0.5) mg/dl B-Natriuretic Peptide 250 H (0-100) pg/ml Total Protein (6.0-8.3) gm/dl Albumin (3.4-5.0) gm/dl Lipase (11-82) U/L 25-OH Vitamin D Total 22.4 L (30-100) ng/ml Procalcitonin (0-0.5) ng/ml Urine Color Urine Appearance (Clear) Urine pH (4.5-7.5) Ur Specific [place] (1.000-1.030) Urine Protein (Negative) Urine Glucose (UA) (Negative) Urine Ketones (Negative) Urine Blood (Negative) Urine Nitrite (Negative) Urine Bilirubin (Negative) Urine Urobilinogen (Negative) Ur Leukocyte Esterase (Negative) Urine WBC (Auto) (0-5) /hpf Urine RBC (Auto) (0-2) /hpf U Hyaline Cast (Auto) (0-2) /lpf U Epithel Cells (Auto) (0-2) /hpf Urine Bacteria (Auto) (None Seen) Hyaline Casts (None Presnt) /lpf SARS-CoV-2 (PCR) (Negative) Influenza Type A (PCR) (Neg) Influenza Type B (PCR) (Neg) RSV (RT-PCR) (Neg) Blood Type A Negative Antibody Screen NEGATIVE 06/16/24 Range/Units 07:35 WBC (4.8-10.8) K/ul RBC (4.70-6.10) M/uL Hgb (14.0-18.0) g/dl Hct (42.0-52.0) % MCV (80.0-100.0) fL MCH (25.0-34.0) pg MCHC (32.0-36.0) g/dL RDW Std Deviation (36.4-46.3) fL RDW Coeff of Jerry (11.5-14.5) % Plt Count (130-400) K/uL MPV (9.4-12.4) fL Immature Gran % (Auto) % Neut % (Auto) % Lymph % (Auto) % [place] % (Auto) % Eos % (Auto) % Baso % (Auto) % Neut # (Auto) (1.40-6.50) K/uL Lymph # (Auto) (1.20-3.40) K/uL [place] # (Auto) (0.11-0.59) K/uL Eos # (Auto) (0.00-0.50) K/uL Baso # (Auto) (0.00-0.20) K/uL Immature Gran # (Auto) (0.01-0.20) K/uL PT 13.0 H (9.0-12.0) Seconds INR 1.2 H (0.9-1.1) APTT 32 H (21-31) Seconds PTT Ratio 1.2 Sodium 140 (136-145) mmol/L Potassium 4.0 (3.5-5.1) mmol/L Chloride 108 H (98-107) mmol/L Carbon Dioxide 23 (21-32) mmol/L Anion Gap 9 (3-11) BUN 33 H (6-23) mg/dl Creatinine 1.19 (0.6-1.4) mg/dl Est Cr Clr Drug Dosing 62.9 ml/min eGFR 62.14 BUN/Creatinine Ratio 27.7 H (10-20) Glucose 108 H (70-99(Fasting)) mg/dl Calcium 8.3 L (8.6-10.3) mg/dl Magnesium 2.1 (1.7-2.4) mg/dl Total Bilirubin 0.4 (0.2-1.0) mg/dl Direct Bilirubin 0.0 (0-0.2) mg/dl AST 29 (13-39) U/L ALT 38 (7-52) U/L Alkaline Phosphatase 69 (34-104) U/L Troponin I High Sens 12.6 (0-20) pg/ml C-Reactive Protein 2.98 H (0-0.5) mg/dl B-Natriuretic Peptide (0-100) pg/ml Total Protein 6.7 (6.0-8.3) gm/dl Albumin 3.5 (3.4-5.0) gm/dl Lipase 13 (11-82) U/L 25-OH Vitamin D Total (30-100) ng/ml Procalcitonin 0.06 (0-0.5) ng/ml Urine Color Dark Yellow Urine Appearance Turbid A (Clear) Urine pH 5.5 (4.5-7.5) Ur Specific [place] 1.029 (1.000-1.030) Urine Protein 1+ H (Negative) Urine Glucose (UA) Negative (Negative) Urine Ketones Trace H (Negative) Urine Blood 2+ H (Negative) Urine Nitrite Negative (Negative) Urine Bilirubin Negative (Negative) Urine Urobilinogen Negative (Negative) Ur Leukocyte Esterase Trace H (Negative) Urine WBC (Auto) 6-10 H (0-5) /hpf Urine RBC (Auto) >20 H (0-2) /hpf U Hyaline Cast (Auto) 6-10 H (0-2) /lpf U Epithel Cells (Auto) 0-2 (0-2) /hpf Urine Bacteria (Auto) None Seen (None Seen) Hyaline Casts Present A (None Presnt) /lpf SARS-CoV-2 (PCR) POSITIVE A (Negative) Influenza Type A (PCR) Negative (Neg) Influenza Type B (PCR) Negative (Neg) RSV (RT-PCR) Negative (Neg) Blood Type Antibody Screen Diagnostic Findings Abdomen/Pelvis CT 06/16/24 07:21 CT OF THE ABDOMEN AND PELVIS WITH CONTRAST CLINICAL HISTORY: Fall. COMPARISON STUDY: CT of the abdomen and pelvis June 06, 2024. TECHNIQUE: Following IV administration of 112 mL of Optiray, axial images of the abdomen and pelvis were obtained from the lung bases to the proximal femurs. Images were reviewed in the axial, sagittal, and coronal planes. IV contrast was administered without complication. Automated exposure control was utilized for the study. A dose lowering technique was utilized adhering to the principles of ALARA. CT DOSE: 3793.08 mGy.cm FINDINGS: Please note that the chest CT will be reported separately. Emphysema, a hiatal hernia and lower lobe opacity suggestive of atelectasis are better depicted on that exam. There is no evidence for traumatic injury to the liver, spleen, adrenal glands, kidneys or pancreas. There are bilateral renal cysts. Hypodense splenic lesions are likely benign. There is no significant biliary ductal dilatation status post cholecystectomy. The adrenal glands, liver and pancreas are unremarkable. The caliber and wall thickness of small and large bowel are normal. Postoperative findings within the right inguinal canal are present. A Ray balloon within the bladder is noted. This colonic diverticulosis. No evidence for acute diverticulitis. No acute fractures within the lumbar spine, pelvis or hips are identified. IMPRESSION: 1. No acute traumatic findings within the abdomen or pelvis. No significant change since prior CT. 2. No bowel obstruction. No bowel wall thickening. Colonic diverticulosis. No evidence for acute diverticulitis. ACT 112: Negative or not required by law. Electronically signed by: Adam Benson M.D. 06/16/2024 9:[address] 06/16/24 07:21 CT cervical spine wo con CT DOSE: 3793.08mGy*cm CLINICAL HISTORY: Ground-level fall COMPARISON: 12/26/2021 TECHNIQUE: Multiple axial CT images of the cervical spine were obtained without contrast. Sagittal and coronal reconstructions were done. A dose lowering technique was utilized adhering to the principles of ALARA. FINDINGS: The left maxillary antrum is opacified. There is no evidence of acute fracture or traumatic malalignment. The prevertebral soft tissues are negative. The odontoid and atlantoaxial articulation are intact. Multilevel cervical spondylosis is redemonstrated. 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 IMPRESSION: Stable exam; no acute traumatic cervical spine injury identified. The left maxillary antrum is opacified. The aortic arch is ectatic. ACT 112: Negative or not required by law. The above report was generated using voice recognition software. It may contain grammatical, syntax or spelling errors. Electronically signed by: Rhonda Sterling M.D. 06/16/2024 9:40 AM Chest X-Ray 06/16/24 07:21 XR chest 1V portable CLINICAL HISTORY: fall COMPARISON STUDY: Chest CT April 14, 2024. Chest radiograph June 08, 2024. FINDINGS: Left subclavian biventricular pacer/AICD is in place. Cardiomegaly is again noted. There is underlying emphysema. Bibasilar opacities are similar to prior exam and favor atelectasis. There is no consolidation. There is no evidence for pulmonary edema. Elevation of the left hemidiaphragm is again noted. Blunting of the left costophrenic angle is due to epicardial fat pad. IMPRESSION: No acute cardiopulmonary findings. No change in appearance of the chest. ACT 112: Negative or not required by law. Electronically signed by: Adam Benson M.D. 06/16/2024 8:[address] 06/16/24 07:21 CT head/brain wo con CLINICAL HISTORY: Ground-level fall TECHNIQUE: Multiple axial CT images of the head were obtained without contrast. Sagittal and coronal reconstructions were done. A dose lowering technique was utilized adhering to the principles of ALARA. CT DOSE: 3793.08mGy*cm COMPARISON: 05/31/2020 FINDINGS: CT findings are stable. There is no intra-axial or extra-axial fluid collection, hemorrhage, or mass. Senescent atrophy and small vessel insufficiency changes are once again noted. There is no skull fracture. There is a small posterior convexity scalp hematoma. IMPRESSION: Stable exam; no acute intracranial process. ACT 112: Negative or not required by law. The above report was generated using voice recognition software. It may contain grammatical, syntax or spelling errors. Electronically signed by: Rhonda Sterling M.D. 06/16/2024 9:31 AM Pelvis X-Ray 06/16/24 07:21 XR pelvis 1-2V routine CLINICAL HISTORY: fall COMPARISON: 12/21/2018 FINDINGS: Single view pelvis is unchanged. There is no acute traumatic osseous or articular injury identified. The hips are normally aligned. There is no fracture identified. There are degenerative changes in the lower lumbar spine. The SI joints are unremarkable. IMPRESSION: No acute traumatic injury identified. ACT 112: Negative or not required by law. Electronically signed by: Rhonda Sterling M.D. 06/16/2024 8:49 AM Chest CTA 06/16/24 08:43 CT ANGIOGRAPHY OF THE CHEST, PULMONARY EMBOLUS PROTOCOL CLINICAL HISTORY: Shortness of breath. Evaluate for pulmonary embolus. COMPARISON STUDY: Chest CT April 14, 2024. Chest radiograph performed earlier today. TECHNIQUE: Following IV administration of Optiray, helical axial images of the chest were obtained utilizing the pulmonary embolus protocol. Maximal intensity projections and sagittal and coronal reformats were viewed on an independent 3D workstation. IV contrast was administered without complication. Automated exposure control was utilized for the study. A dose lowering technique was utilized adhering to the principles of ALARA. FINDINGS: No pulmonary emboli are identified although segmental and subsegmental pulmonary arteries within the lower lobes are suboptimally opacified. A left subclavian pacer is in place. The heart is moderately enlarged. A hiatal hernia with partially intrathoracic stomach is again noted. There is no thoracic lymphadenopathy. Emphysema is again noted. Lower lung pre dominant groundglass opacities are unchanged. Linear densities within the lower lobes are also unchanged and favor scarring. There is no consolidation to suggest pneumonia. No pneumothorax or pleural effusion is present. A 1.3 cm focus of secretions within the right mainstem bronchus is present. There are no acute fractures within the bony thorax. Abdomen and pelvis CT will be reported separately. IMPRESSION: 1. No pulmonary emboli identified although lower lobe segmental and subsegmental pulmonary arteries suboptimally opacified. 2. No significant change in appearance of the chest. Lower lobe ground glass opacities with linear densities within the lower lobes and lingula suggestive of scarring. No consolidation to suggest pneumonia. 3. Cardiomegaly. 4. Emphysema. ACT 112: Negative or not required by law. Electronically signed by: Adam Benson M.D. 06/16/2024 9:35 AM Brain MRI 06/16/24 11:25 MRI OF THE BRAIN WITHOUT CONTRAST CLINICAL HISTORY: Left lower extremity weakness. Fall. COMPARISON STUDY: Head CT May 31, 2020. Head CT performed earlier today. MRI of the brain October 29, 2020. TECHNIQUE: Utilizing a 1.5 Peggy magnet and dedicated coil, multiplanar, multiecho imaging of the brain was performed without IV contrast. FINDINGS: There are no foci of restricted diffusion to suggest acute infarct. No acute intracranial hemorrhage, midline shift or mass effect is present. Ventricular system is unremarkable. Basal cisterns are patent. Flow-voids for the major intracranial vessels are present. Mild white matter T2 hyperintense foci are predominantly periventricular in distribution. The findings suggest small vessel disease. No intracranial masses identified on unenhanced exam. Calvarial signal is normal. There is moderate mucosal thickening with air-fluid level with secretions within the left maxillary sinus. IMPRESSION: 1. No acute intracranial findings. 2. Left maxillary sinus mucosal thickening, small air-fluid level and secretions. ACT 112: Negative or not required by law. Electronically signed by: Adam Benson M.D. 06/16/2024 1:01 PM Lumbar Spine X-Ray 06/17/24 08:14 EXAM: Radiographs of the Lumbosacral Spine 3 Views INDICATION: Weakness. Fell yesterday. TECHNIQUE: Frontal, lateral and spot lateral views obtained. COMPARISON: No relevant prior studies available. FINDINGS: Limitations: None. Vertebrae: Diffuse moderate to severe facet arthrosis noted. Mild to moderate diffuse spondylosis and uncal spurring present. No fracture. No subluxation. Pedicles intact. Sacrum/coccyx: No acute change noted. Disc spaces: Diffuse moderate disc space degeneration. Multilevel foraminal stenosis present. Soft tissues: 4 mm stone versus overlying artifact right kidney. No radiopaque foreign body noted. Vasculature: Atherosclerotic calcification of the aorta noted. IMPRESSION: 1. Multilevel moderate to severe degenerative changes. No acute abnormality. 2. 4 mm right kidney stone versus overlying artifact. ACT 112: Negative or not required by law. Electronically signed by Catherine Arreguin 06-17-2024 09:37 AM Calcaneus X-Ray 06/17/24 10:18 EXAM: Radiographs of the Right Calcaneus 2 Views INDICATION: Wounds. TECHNIQUE: Lateral and plantar views of the right calcaneus. COMPARISON: No relevant prior studies available. FINDINGS: Limitations: None. Bones/joints: There is mild plantar calcaneal spurring. There is mild calcification in the adjacent plantar fascia. There is no fracture or erosion. Soft tissues: Mild soft tissue swelling noted. No soft tissue gas collection. IMPRESSION: 1. Mild soft tissue swelling. 2. No plain radiographic evidence of osteomyelitis. 3. Plantar calcaneal spurring and evidence of chronic plantar fasciitis. ACT 112: Negative or not required by law. Electronically signed by Catherine Arreguin 06-17-2024 11:25 AM Calcaneus X-Ray 06/17/24 10:18 EXAM: Radiographs of the Left Calcaneus 2 Views INDICATION: Wounds TECHNIQUE: Lateral and plantar views of the left calcaneus. COMPARISON: 12/08/2023 FINDINGS: Limitations: None. Bones/joints: Stable prominent plantar calcaneal spur. Small adjacent calcification in the adjacent plantar fascia. 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 No fracture, erosion or periosteal reaction. Soft tissues: Mild diffuse soft tissue swelling noted. No soft tissue gas collection or radiopaque foreign body. IMPRESSION: 1. Mild soft tissue swelling. 2. No plain radiographic abnormality of osteomyelitis. 3. Plantar calcaneal spurring and evidence of chronic plantar fasciitis. . ACT 112: Negative or not required by law. Electronically signed by Catherine Arreguin 06-17-2024 11:25 AM Chest X-Ray 06/17/24 10:25 EXAM: Radiographs of the Chest 2 Views INDICATION: Heel wounds. TECHNIQUE: Frontal and lateral views of the chest. COMPARISON: No relevant prior studies available. FINDINGS: Lungs and pleural spaces: There is linear and patchy airspace disease in both lung bases with left diaphragmatic elevation consistent with volume loss. No visible pleural effusion or pneumothorax. Heart: Enlarged shadow. Pacing leads in the right atrium, right ventricle and coronary sinus. Mediastinum: Normal contour. Bones/joints: No fracture, erosion or dislocation. IMPRESSION: Bilateral basilar atelectasis and possible pneumonia. ACT 112: Negative or not required by law. Electronically signed by Catherine Arreguin 06-17-2024 11:25 AM PG Care Time/CCT Total # of Minutes Spent Total Time Spent with Patient: Total time spent is greater than 50% in coordination of care (as documented) at patient's floor/unit and/or counseling patient: Coding Level of Care Code 74447 SUB INP/OBS CARE 50MIN Diagnoses Fall W19.XXXA Encounter type: initial encounter Diarrhea R19.7 SARS-CoV-2 positive U07.1 Sleep apnea G47.30 Bilateral foot-drop M21.371; M21.372 Scalp hematoma S00.03XA Cardiomyopathy I42.9 Atrial fibrillation, controlled I48.91 CHF (congestive heart failure) I50.9 Heart failure chronicity: acute on chronic Heart failure type: unspecified (1) Fall Encounter type: initial encounter Qualified Code(s): W19.XXXA - Unspecified fall, initial encounter (9) CHF (congestive heart failure) Heart failure chronicity: acute on chronic Heart failure type: unspecified Qualified Code(s): I50.9 - Heart failure, unspecified
[2024-06-17 09:21] LABS: Magnesium 2.1 mg/dl (1.7-2.4); Phosphorus 2.4 mg/dl (2.5-4.9)
--- NOTE | 2024-06-17 09:38 | XRay Report ---
EXAM: Radiographs of the Lumbosacral Spine 3 Views INDICATION: Weakness. Fell yesterday. TECHNIQUE: Frontal, lateral and spot lateral views obtained. COMPARISON: No relevant prior studies available. FINDINGS: Limitations: None. Vertebrae: Diffuse moderate to severe facet arthrosis noted. Mild to moderate diffuse spondylosis and uncal spurring present. No fracture. No subluxation. Pedicles intact. Sacrum/coccyx: No acute change noted. Disc spaces: Diffuse moderate disc space degeneration. Multilevel foraminal stenosis present. Soft tissues: 4 mm stone versus overlying artifact right kidney. No radiopaque foreign body noted. Vasculature: Atherosclerotic calcification of the aorta noted. IMPRESSION: 1. Multilevel moderate to severe degenerative changes. No acute abnormality. 2. 4 mm right kidney stone versus overlying artifact. ACT 112: Negative or not required by law. Electronically signed by Catherine Arreguin 06-17-2024 09:37 AM
[2024-06-17] MEDS: CETIRIZINE HCL 10 MG TABLET PO SCH (09:48)
[2024-06-17] MEDS: BUMETANIDE 1 MG TAB PO SCH (09:49)
[2024-06-17] MEDS: FINASTERIDE 5 MG TAB PO SCH (09:50)
[2024-06-17] MEDS: ROSUVASTATIN CALCIUM 10 MG TAB PO SCH (09:51)
--- NOTE | 2024-06-17 11:25 | XRay Report ---
EXAM: Radiographs of the Right Calcaneus 2 Views INDICATION: Wounds. TECHNIQUE: Lateral and plantar views of the right calcaneus. COMPARISON: No relevant prior studies available. FINDINGS: Limitations: None. Bones/joints: There is mild plantar calcaneal spurring. There is mild calcification in the adjacent plantar fascia. There is no fracture or erosion. Soft tissues: Mild soft tissue swelling noted. No soft tissue gas collection. IMPRESSION: 1. Mild soft tissue swelling. 2. No plain radiographic evidence of osteomyelitis. 3. Plantar calcaneal spurring and evidence of chronic plantar fasciitis. ACT 112: Negative or not required by law. Electronically signed by Catherine Arreguin 06-17-2024 11:25 AM
--- NOTE | 2024-06-17 11:27 | XRay Report ---
EXAM: Radiographs of the Chest 2 Views INDICATION: Heel wounds. TECHNIQUE: Frontal and lateral views of the chest. COMPARISON: No relevant prior studies available. FINDINGS: Lungs and pleural spaces: There is linear and patchy airspace disease in both lung bases with left diaphragmatic elevation consistent with volume loss. No visible pleural effusion or pneumothorax. Heart: Enlarged shadow. Pacing leads in the right atrium, right ventricle and coronary sinus. Mediastinum: Normal contour. Bones/joints: No fracture, erosion or dislocation. IMPRESSION: Bilateral basilar atelectasis and possible pneumonia. ACT 112: Negative or not required by law. Electronically signed by Catherine Arreguin 06-17-2024 11:25 AM
--- NOTE | 2024-06-17 11:27 | XRay Report ---
EXAM: Radiographs of the Left Calcaneus 2 Views INDICATION: Wounds TECHNIQUE: Lateral and plantar views of the left calcaneus. COMPARISON: 12/08/2023 FINDINGS: Limitations: None. Bones/joints: Stable prominent plantar calcaneal spur. Small adjacent calcification in the adjacent plantar fascia. 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 No fracture, erosion or periosteal reaction. Soft tissues: Mild diffuse soft tissue swelling noted. No soft tissue gas collection or radiopaque foreign body. IMPRESSION: 1. Mild soft tissue swelling. 2. No plain radiographic abnormality of osteomyelitis. 3. Plantar calcaneal spurring and evidence of chronic plantar fasciitis. . ACT 112: Negative or not required by law. Electronically signed by Catherine Arreguin 06-17-2024 11:25 AM
[2024-06-17] MEDS: FLUTICASONE PROPIONATE NA SPR 16 GM BTL SCH (11:29)
[2024-06-17] MEDS: DOCUSATE SODIUM 100 MG CAP PO SCH (11:29)
[2024-06-17] MEDS: POLYETHYLENE (MIRALAX) 17 GM PACK PO SCH (11:29)
[2024-06-17] MEDS: UMECLIDINIUM/VILANTEROL 62.5/25MCG 7 PUFFS/INHALER INH SCH (11:29)
--- NOTE | 2024-06-17 12:29 | XCELERA ---
[id number]
[2024-06-17] MEDS: SENNA 8.6 MG TAB PO SCH (21:08)
[2024-06-17] MEDS: guaiFENesin 600 MG TABCR PO SCH (21:09)
[2024-06-18 06:17] LABS: Hematocrit (blood only) 35.5 % (42.0-52.0); Hemoglobin 11.6 g/dl (14.0-18.0); Mean Corpuscular Hemoglobin 29.4 pg (25.0-34.0); Mean Corpuscular Hgb Conc 32.7 g/dL (32.0-36.0); Mean Corpuscular Volume 90.1 fL (80.0-100.0); Mean Platelet Volume 10.4 fL (9.4-12.4); Platelet Count 291 K/uL (130-400); RDW Coefficient of Variation 14.3 % (11.5-14.5); RDW Standard Deviation 47.4 fL (36.4-46.3); Red Blood Count 3.94 M/uL (4.70-6.10); White Blood Count 7.61 K/ul (4.8-10.8)
[2024-06-18 06:19] LABS: Calcium 8.2 mg/dl (8.6-10.3); Creatinine Clr Calc Pharmacy 79.6 ml/min; Magnesium 2.1 mg/dl (1.7-2.4); Phosphorus 2.5 mg/dl (2.5-4.9); Potassium 4.4 mmol/L (3.5-5.1)
--- NOTE | 2024-06-18 08:06 | Hospitalist Progress Note ---
Date of Service June 18, 2024 Assessment & Plan (1) Fall: Plan: Presented with ground level fall trying to get to the bathroom with unsteady feet/legs - reports felt weaker than usual and fell and hit the back of his head. Suspected secondary chronic neuropathy of his bilateral lower extremities (L>R), likely more acutely worse from possible diarrhea illness and recent sepsis/COVID/PNA/UTI admission(completed course Ertapenem/Cipro, remdesivir) admission however obtained MRI brain to r/o CVA and was negative for such. Did note small posterior scalp hematoma but stable and eliquis resumed PM 06/16 given hx PEs and hx afib with high risk . Did have ablation at [facility] week prior to last hospitalization and EF on prior ECHO 25-30% and notably entresto has been on HOLD since discharge last admission 2nd to hypotension. On admit, generalized illness with nausea/vomiting and abdominal discomfort with diarrhea prior to his fall * Had been to [facility] day prior with urinary retention and difficulty voiding and noted >500cc in bladder (usually self caths in evening) and ray placed at that time w/ cup for stool sample interestingly. * Denied any abx given at that time but was given dose of zofran for nausea and reports was given cup to get stool sample. +COVID testing but no need for isolation at this time per discussion. Procal 0.06, no leukocytosis. B12 not deficient Xray lumbar spine w/ no acute fracture/subluxation but multilevel mod-severe de generative changes could be contributing to issues at baseline. Could consider CT/MRI in f/u (has gotten injections in the past) Xray heels w plantar fasciitis, no deeper infection/cellulitis or drainage on exam ICD interrogation w/o abn. ECHO w unchanged EF 20-25%. Entresto on hold since last admission 2nd to hypotension 06/18 WBC wnl/afebrile Bowel regimen added given reports constipation issues, biofire/cdiff obtained w/ INCREASED WATERY DIARRHEA THIS MORNING. Stool biofire with NOROVIRUS, isolation precautions placed. hold further bowel meds --> notable reports she had diarrheal illness the week prior however her sx were resolved at the time Mr Louise developed symptoms. Suspect as cause for his n/v/d and abd sx on admission but will monitor urine cx/ray in [facility]. Blood cx pending from admission CXR w/ improvement, incentive spirometer/flonase/mucinex BID for sinus congestion w/ resolution/continued. No PNA suspected despite admission CXR report, repeat w/o improvement in aeration/no hypoxia Bumex 1mg PO daily continued BP stable this morning 121/79- will RESUME LOWER DOSE ENTRESTO BID this evening/monitor tolerance. some orthostatic sx w/ position changes but improved if he takes his time -If improvement/stable BP could consider increasing back to middle dose as prior rx Vit D low, PO replacement ordered, rx at dc DVT proph; eliquis continued Labs/exam in AM PT/OT consults pending, hopefully home w/ HH as prior arranged in next 24hrs if improvement (2) Norovirus: Plan: + norovorus testing on stool biofire. 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 Bumex once daily for CHF. Supportive care, PT/OT consults to ensure able to return home as wishes. Hopefully next 24-48hrs (3) Diarrhea: Plan: Laxatives at baseline therefore suspect just cutting back on this will help -- he reports significant concerns w/ constipation at baseline, did resume home regimen given abdominal distention however as above 3BM already this morning with +norovirus testing which explains symptoms. cdiff testing negative. Miralax/colace/senna placed on hold and can resume if/as needed (4) SARS-CoV-2 positive: Plan: + testing on admission with initial testing on 06/05 and per infection control no need for isolation at this time. supportive care, incentive spirometer/mucinex ordered and will follow up. No hypoxia (5) Sleep apnea: Plan: BiPAP HS continued, unit in room (6) Bilateral foot-drop: Plan: Chronic idiopathic peripheral neuropathy under neurology as an outpatient B12 not deficienct Lumbar xray without fracture/subluxation however multilevel degnerative changes and could consider further imaging w/ CT/MRI. MRI brain negative as above (however without contrast if looking for mass) boots in place, therapy consults pending (7) Scalp hematoma: Plan: noted, stable on exam (8) Cardiomyopathy: Plan: Hx cardiomyopathy, HFrEF, atrial fibrillation s/p ablation in the past month as above. EF 25-30% Remains on coreg BID, bumex once daily. Entresto on hold since last admission 2nd to hypotension but will monitor if symptomatic w/ hypotension could consider (?hypotension issues 2nd to sepsis/UTI) BNP checked on admission, improved from earlier this month (did get additional IV diuretics at that time) and weights DOWN compared to last week ECHO w/o change in EF Continues on bumex 1mg PO daily, coreg BID Entresto mid-range dose prior but will attempt to resume at LOWERED dose for this evening 06/18 as outlined and monitor tolerace/titrate as able (9) Atrial fibrillation, controlled: Plan: EKG pacecd on admission, interrogation above without abn. keep mag/K replete. Remains on Eliquis/Coreg (10) CHF (congestive heart failure): Plan: as above Plan Parkinsonism - continue pramipexole BPH - Ray catheter now in place, repeat urine cx pending. Will need f/u [facility] Coronary artery disease - aspirin, rosuvastatin, carvedilol VTE prophylaxis - Eliquis 5 mg p.o. BID Dispo: continued inpatient stay, isolation for norovirus/supportive care. bowel regimen placed on hold. resume lower dose entresto/monitor labs in AM. , therapy evals pending and hopefully home w/ HH services in next 24-48 hrs Admission and Anticipated Discharge Date Admission Date: June 16, 2024 Supervising Physician Co-Signing Physician Notes The patient was not seen by me. The chart was reviewed. Case discussed with BRYNN Fernández. Agree with assessment and plan Subjective Eval this afternoon, in room. 3 watery BM this morning, +stool testing for norovirus , likely explains n/v/d MEDICATION CARE MANAGER. Isolation precautions in place. reports she had similar illness week prior but was recovered by time patient w/ sx. Holding further stool softeners/laxatives and will re-visit in AM. 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 Ray draining yellow urine. Continues with ray in place at this time, yellow urine draining. Cx pending. Doesn't appear significantly volume overloaded/will continue to hold additional diuretics but remains on usual bumex. BP 121/79 this morning, some orthostatic sx w/ position changes but improved if he takes his time. Discussed ECHo and EF unchanged but given stable BP will attempt to resume his entresto this evening/monitor. PT/OT consults pending and had HH arrange MEDICATION CARE MANAGER. Possible dc next 24-48hrs pending therapy evals and repeat eval. Physical Exam Physical Exam: General: 79 yo obese male sitting on bedside commode, in room Head atraumatic, normocephalic, mm slightly dry but improved from day prior, trachea midline Resp: slight diminished in the bases (improved) no overt wheezing/crackles, on room air CV: RRR, +murmur, trace pedal edema, pulses present, calves nontender GI: +BS, less distension, no overt tenderness/guarding ray draining yellow urine MSK/Neuro: no facial droop/slurred speech, is NOT confused, able to follow commands as able with physical limitations. b/l neuropathy to LE, +foot drop. Boots in place (prior eval no drainage b/l heels or cellulitis) Psych: AOx3, cooperative but fatigued appearing Results & Data Results & Data Vital Signs (Past 12 Hours) Vital Signs Temp Pulse Pulse Resp BP Pulse Ox O2 Del Method 06/18/24 07:10 36.3 C L 82 17 121/79 95 Room Air 06/18/24 02:15 26 H 06/18/24 00:53 Room Air 06/17/24 22:30 79 22 96 06/17/24 21:06 36.3 C L 79 16 112/75 95 Room Air O2 Flow Rate 06/18/24 07:10 06/18/24 02:15 3 06/18/24 00:53 06/17/24 22:30 3 06/17/24 21:06 Laboratory Results 06/18/24 06/18/24 Range/Units 08:40 05:35 WBC 7.61 (4.8-10.8) K/ul RBC 3.94 L (4.70-6.10) M/uL Hgb 11.6 L (14.0-18.0) g/dl Hct 35.5 L (42.0-52.0) % MCV 90.1 (80.0-100.0) fL MCH 29.4 (25.0-34.0) pg MCHC 32.7 (32.0-36.0) g/dL RDW Std Deviation 47.4 H (36.4-46.3) fL RDW Coeff of Jerry 14.3 (11.5-14.5) % Plt Count 291 (130-400) K/uL MPV 10.4 (9.4-12.4) fL Sodium 135 L (136-145) mmol/L Potassium 4.4 (3.5-5.1) mmol/L Chloride 103 (98-107) mmol/L Carbon Dioxide 24 (21-32) mmol/L Anion Gap 8 (3-11) BUN 31 H (6-23) mg/dl Creatinine 0.94 (0.6-1.4) mg/dl Est Cr Clr Drug Dosing 79.6 ml/min eGFR 82.46 BUN/Creatinine Ratio 33.0 H (10-20) Glucose 83 (70-99(Fasting)) mg/dl Calcium 8.2 L (8.6-10.3) mg/dl Phosphorus 2.5 (2.5-4.9) mg/dl Magnesium 2.1 (1.7-2.4) mg/dl Stl C. cayetanensis PCR Not Detected (NotDetected) Stool Rotavirus A PCR Not Detected (NotDetected) Stl Adenov F 40/41 PCR Not Detected (NotDetected) Stool Astrovirus (PCR) Not Detected (NotDetected) Stool Campylobacter PCR Not Detected (NotDetected) Stl C. diff Tox B Gene Negative Cdiff Gene (Neg) Stool Cryptosporidium PCR Not Detected (NotDetected) Stl E.coli Shiga Tox PCR Not Detected (NotDetected) Stl Enterotoxigenic E PCR Not Detected (NotDetected) Stool EPEC (PCR) Not Detected (NotDetected) Stool EAEC (PCR) Not Detected (NotDetected) Stl E. histolytica PCR Not Detected (NotDetected) Stool Giardia Lamblia PCR Not Detected (NotDetected) Stool Salmonella PCR Not Detected (NotDetected) Stool Sapovirus (PCR) Not Detected (NotDetected) Stl P. shigelloides PCR Not Detected (NotDetected) Stl Shigella/EIEC PCR Not Detected (NotDetected) St Y.enterocolitica PCR Not Detected (NotDetected) Stool Vibrio (PCR) Not Detected (NotDetected) Stl Vibrio cholerae PCR Not Detected (NotDetected) Stl Norovirus GI/GII PCR DETECTED A* (NotDetected) PG Care Time/CCT Total # of Minutes Spent Total Time Spent with Patient: Total time spent is greater than 50% in coordination of care (as documented) at patient's floor/unit and/or counseling patient: Coding Level of Care Code 55156 SUB INP/OBS CARE 3/50MIN Diagnoses Fall W19.XXXA Encounter type: initial encounter Norovirus A08.11 Diarrhea R19.7 SARS-CoV-2 positive U07.1 Sleep apnea G47.30 Bilateral foot-drop M21.371; M21.372 Scalp hematoma S00.03XA Cardiomyopathy I42.9 Atrial fibrillation, controlled I48.91 CHF (congestive heart failure) I50.9 Heart failure chronicity: acute on chronic Heart failure type: unspecified (1) Fall Encounter type: initial encounter Qualified Code(s): W19.XXXA - Unspecified fall, initial encounter (10) CHF (congestive heart failure) Heart failure chronicity: acute on chronic Heart failure type: unspecified Qualified Code(s): I50.9 - Heart failure, unspecified
--- NOTE | 2024-06-18 08:32 | XRay Report ---
EXAM: Radiograph of the Chest 1 View INDICATION: Follow-up pneumonia TECHNIQUE: Frontal view of the chest. COMPARISON: 06/17/2024 FINDINGS: Lungs and pleural spaces: See below. Heart: Stable enlargement and pacing device. Mediastinum: Normal contour. Bones/joints: No fracture, erosion or dislocation. Soft tissues: No abnormality noted. No radiopaque foreign body noted. Tubes, lines and devices: Left base partially obscured by the pacing device. There is persistent but improved left basilar atelectasis. Stable atelectasis right base. Stable left basilar pleural effusion or thickening. Upper abdomen: No abnormality noted. IMPRESSION: Minimal improved aeration left base. Otherwise unchanged. ACT 112: Negative or not required by law. Electronically signed by Catherine Arreguin 06-18-2024 08:31 AM
[2024-06-18] MEDS: CHOLECALCIFEROL 10 MCG (400 UNITS) TAB PO SCH (09:51)
[2024-06-18 10:38] LABS: Adenovirus F 40/41 PCR Not Detected (NotDetected); Astrovirus PCR Not Detected (NotDetected); Campylobacter PCR Not Detected (NotDetected); Cryptosporidium PCR Not Detected (NotDetected); Cyclospora cayetanensis PCR Not Detected (NotDetected); Entamoeba histolytica PCR Not Detected (NotDetected); Enteroaggregative E.coli(EAEC) Not Detected (NotDetected); Enteropathogenic E.coli (EPEC) Not Detected (NotDetected); Enterotoxigenic E.coli (ETEC) Not Detected (NotDetected); Giardia lamblia PCR Not Detected (NotDetected); Plesiomonas shigelloides PCR Not Detected (NotDetected); Rotavirus A PCR Not Detected (NotDetected); Salmonella PCR Not Detected (NotDetected); Sapovirus PCR Not Detected (NotDetected); Shiga-like Toxin E.coli (STEC) Not Detected (NotDetected); Shigella/Enteroinvasive E.coli Not Detected (NotDetected); Vibrio cholerae PCR Not Detected (NotDetected); Vibrio species PCR Not Detected (NotDetected); Yersinia enterocolitica PCR Not Detected (NotDetected)
[2024-06-18 11:01] LABS: Norovirus GI/GII PCR DETECTED (NotDetected)
[2024-06-18] MEDS ORDERED: POLYETHYLENE (MIRALAX) 17 GM PACK PO PRN (11:03)
[2024-06-18] MEDS: VALSARTAN/SACUBITRIL 26/24MG TAB PO SCH (21:39)
--- NOTE | 2024-06-19 08:22 | Hospitalist Progress Note ---
Date of Service June 19, 2024 Assessment & Plan (1) Fall: (2) Norovirus: (3) Diarrhea: (4) SARS-CoV-2 positive: (5) Sleep apnea: (6) Bilateral foot-drop: (7) Scalp hematoma: (8) Cardiomyopathy: (9) Atrial fibrillation, controlled: (10) CHF (congestive heart failure): Plan Presented with ground level fall trying to get to the bathroom with unsteady feet/legs - reports felt weaker than usual and fell and hit the back of his head. Suspected secondary chronic neuropathy of his bilateral lower extremities (L>R), likely more acutely worse from possible diarrhea illness and recent sepsis/COVID/PNA/UTI admission(completed course Ertapenem/Cipro, remdesivir) admission however obtained MRI brain to r/o CVA MRI brain NEGATIVE for such. Did note small posterior scalp hematoma but stable and eliquis resumed PM 2/21 given hx PEs and hx afib with high risk . Did have ablation at [facility] [place] week prior to last hospitalization and EF on prior ECHO 25-30% and notably Entresto has been on HOLD since discharge last admission 2nd to hypotension. +COVID testing but no need for isolation at this time per discussion. Procal 0.06, no leukocytosis. B12 not deficient Xray lumbar spine w/ no acute fracture/subluxation but multilevel mod-severe degenerative changes could be contributing to issues at baseline. Could consider CT/MRI in f/u (has gotten injections in the past) Xray heels w plantar fasciitis, no deeper infection/cellulitis or drainage on exam ICD interrogation w/o abn. ECHO w unchanged EF 20-25%. Entresto on hold since last admission 2nd to hypotension #Fall, Weakness, Nausea/vomiting, Diarrhea, NOROVIRUS On admit, generalized illness with nausea/vomiting and abdominal discomfort with diarrhea prior to his fall * [facility] with urinary retention and difficulty voiding and noted >500cc in bladder (usually self caths in evening) and ray placed at that time w/ cup for stool sample interestingly Stool testing POSITIVE FOR NOROVIRUS 2/23 and suspected as cause for sx ( also w/ similar sx the week before) Isolation precautions in place. held further bowel meds, forming of stool today. CXR w/ improvement and continues IS/flonase/mucinex for sinus congestion. No PNA suspected, 95% on RA Urine cx NGTD on prelim given ray placement at [facility] PERSONAL CARE SERVICE PROVIDER and monitor final. Blood cx NGTD x 48hr and WBC wnl/afebrile Entresto resumed at LOWER dose, continues bumex 1mg daily. reports no issues but will increase to prior dose for this evening/monitor for hypotension issues overnight now that bowels back to normal Plan dc in AM 06/20 w/ resumption of HH pending PT/OT evals as discussed with patient for 06/20 #HFrEF, afib (s/p ablation), ICD present, Cardiomyopathy Hx cardiomyopathy, HFrEF, atrial fibrillation w/ ablation in past month, EF 25- 30%, On coreg/bumex at baseline and entresto on hold since last admission 2nd to hypotension ICD interrogation w/o abn w/ fall as above. Continued on coreg, bumex 1mg PO daily. BNP improved from earlier this month on admission ECHO repeated w/ unchanged EF Improvement/stable BPs and resumed entresto at LOWER dose PM 06/18 and stable BP and renal function/electrolytes and [facility]/difficult to alter dose/fill w/ hopes to get back on usual dose and given tolerance overnight will INCREASED BACK TO HOME DOSE ENTRESTO PM 06/19 and if no issues overnight would continue at [place] and f/u cardiology/[facility] Clinic in follow up BiPAP HS, has in room Monitor volume status, I&Os - weights down Chronic medial issues Chronic idiopathic peripheral neuropathy: under neurology as an outpatient. B12 not deficient. Lumbar xray without fracture/subluxation however multilevel degnerative changes and could consider further imaging w/ CT/MRI. MRI brain negative as above (however without contrast if looking for mass). Boots in place, therapy consults pending Parkinsonism - continue pramipexole BPH - Ray catheter now in place, repeat urine cx pending. Will need f/u urology/[facility] outpatient Coronary artery disease - aspirin, rosuvastatin, carvedilol VTE prophylaxis - Eliquis 5 mg p.o. BID Dispo: continued inpatient stay and increasing entresto for this evneing/monitoring response and therapy evals with plan for dc 06/20 w/ HH services Admission and Anticipated Discharge Date Admission Date: June 16, 2024 Subjective Eval this morning, sitting up in bed. Feels better, believes formed BM this morning, no abd pain. Restarted entresto with tolerance, renal function and BP stable. Discussed had resumed at lower dose and given tolerance, [facility] and will discuss increasing back to usual dose for this evening/monitoring BP/vitals and labs in AM and plan for dc. No CP/SOB, breathing stable, 95% on RA. Issues w/ septic back up at home, will plan dc in AM if kallie increased entresto tonight. Questions/concerns addressed at this time. Physical Exam 2 Physical Exam: General: 79 yo obese male sitting up in recliner, appears improved Head atraumatic, normocephalic, mm improved, trachea midline Resp: slight diminished in the bases (improved air entry bilaterally) no overt wheezing/crackles, on room air CV: RRR, +murmur, trace pedal edema, pulses present, calves nontender GI: +BS, less distension, no overt tenderness/guarding ray draining CLEAR yellow urine MSK/Neuro: no facial droop/slurred speech, is NOT confused, able to follow commands as able with physical limitations. b/l neuropathy to LE, +foot drop. Boots in place (prior eval no drainage b/l heels or cellulitis) Psych: AOx3, cooperative but fatigued appearing Results & Data Results & Data Vital Signs (Past 12 Hours) Vital Signs Pulse Pulse Resp BP Pulse Ox O2 Del Method O2 Flow Rate 06/19/24 07:07 80 16 109/74 95 Room Air 06/19/24 02:27 77 19 94 3 06/18/24 23:56 78 26 H 96 3 Laboratory Results 06/19/24 09:01 06/19/24 09:01 PG Care Time/CCT Total # of Minutes Spent Total Time Spent with Patient: Total time spent is greater than 50% in coordination of care (as documented) at patient's floor/unit and/or counseling patient: Coding Level of Care Code 90161 SUB INP/OBS CARE 3/50MIN Diagnoses Fall W19.XXXA Encounter type: initial encounter Norovirus A08.11 Diarrhea R19.7 SARS-CoV-2 positive U07.1 Sleep apnea G47.30 Bilateral foot-drop M21.371; M21.372 Scalp hematoma S00.03XA Cardiomyopathy I42.9 Atrial fibrillation, controlled I48.91 CHF (congestive heart failure) I50.9 Heart failure chronicity: acute on chronic Heart failure type: unspecified (1) Fall Encounter type: initial encounter Qualified Code(s): W19.XXXA - Unspecified fall, initial encounter (10) CHF (congestive heart failure) Heart failure chronicity: acute on chronic Heart failure type: unspecified Qualified Code(s): I50.9 - Heart failure, unspecified
[2024-06-19 09:41] LABS: Hemoglobin 12.7 g/dl (14.0-18.0); Mean Corpuscular Hemoglobin 29.6 pg (25.0-34.0); Mean Corpuscular Hgb Conc 33.4 g/dL (32.0-36.0); Mean Corpuscular Volume 88.6 fL (80.0-100.0); Mean Platelet Volume 10.4 fL (9.4-12.4); Platelet Count 280 K/uL (130-400); RDW Standard Deviation 45.3 fL (36.4-46.3); Red Blood Count 4.29 M/uL (4.70-6.10); White Blood Count 9.13 K/ul (4.8-10.8)
[2024-06-19 09:58] LABS: BUN Creatinine Ratio 25.3 (10-20); Calcium 8.4 mg/dl (8.6-10.3); Creatinine Clr Calc Pharmacy 84.6 ml/min; Magnesium 1.9 mg/dl (1.7-2.4); Potassium 4.2 mmol/L (3.5-5.1)
[2024-06-19] MEDS: VALSARTAN/SACUBITRIL 51/49 MG TAB PO SCH (19:30)
[2024-06-20 03:58] VITALS: O2SAT 95
[2024-06-20 07:00] LABS: Anion Gap 7 (3-11); BUN Creatinine Ratio 24.4 (10-20); Blood Urea Nitrogen 20 mg/dl (6-23); Calcium 8.1 mg/dl (8.6-10.3); Carbon Dioxide 24 mmol/L (21-32); Chloride 102 mmol/L (98-107); Creatinine Clr Calc Pharmacy 89.7 ml/min; Glucose 92 mg/dl (70-99(Fasting)); Magnesium 1.8 mg/dl (1.7-2.4); Sodium 133 mmol/L (136-145)
[2024-06-20 07:16] VITALS: RESP 16; TEMP 97.3
--- NOTE | 2024-06-20 11:01 | Discharge Summary ---
Discharge Summary Date of Service June 20, 2024 Principal Dx & Hospital Course #1 = Principal Diagnosis (1) Fall: (2) Norovirus: (3) Sleep apnea: (4) Bilateral foot-drop: (5) Scalp hematoma: (6) Cardiomyopathy: (7) Atrial fibrillation, controlled: (8) CHF (congestive heart failure): Plan 79M with PMHx of afib (recent ablation, on Eliquis), peripheral neuopathy, parkinsonism, CAD, ICD in place, HFrEF, who presented with ground level fall trying to get to the bathroom and hit the back of his head. Suspected secondary chronic neuropathy of his bilateral lower extremities, acutely worse from norovirus and recent sepsis/COVID/PNA/UTI admission. CT head with small posterior scalp hematoma. Brain MRI on admission negative for CVA. #Fall, Weakness, Norovirus No acute abnormalities or fractures from falls. ICD interrogation unrevealing. Improved with supportive care. Senna/Colace held - recommend resume in one week PT/OT - recommended rehab, but not agreeable. Plan for HH #Urinary Retention Long standing issue (self caths HS), but acutely worse, Ray placed by [place] day prior to admission. This is continued and recommend urology follow up - pt prefers to use [place] urologist. [place] [facility] number provided on d/c instructions if needed. UC no growth. BC: no growth 48 hours at discharge - no signs of infection. #HFrEF, afib (s/p ablation), ICD present, Cardiomyopathy [place] [facility] [place] 25-30% (unchanged from prior). Continue Eliquis Continue Coreg 25mg BID, bumex 1mg. Entresto resumed and titrated to home dose. F/u with cardiology - not a CHF exacerbation, will defer CHF clinic for now, can reasses at cardiology follow up Continue BIPAP Chronic idiopathic peripheral neuropathy: follows neurology. B12 WNL. Lumbar xray: multilevel degenerative changes. Consider further imaging w/ CT/MRI. Parkinsonism - continue pramipexole Coronary artery disease - aspirin, rosuvastatin, carvedilol Dispo: discharge to home today with HH Notes For Next Care Provider Consider CHF clinic if contiued difficulties with med adjustments - no CHF exacerbation while inpatient Needs urology f/u - prefers [place] Patient declined rehab, HH arranged. Consider MRI of back if further workup needed for neuropathy Pending blood cultures [id number] at d.c Medication Changes From Visit Vit D supplementation added Admission HPI Per Admitting Provider Royce Louise is a 79 year old male who presents to the ER following a ground- level fall earlier today. He takes Eliquis for history of x 3 pulmonary embolism and atrial fibrillation. Today when getting out of bed he was trying to get to the bathroom and was very unsteady on his feet with his left leg much weaker than usual. He fell and hit the back of his head. No loss of consciousness. He has longstanding peripheral neuropathy with numbness from his knees and elbows distally and bilateral foot drop. His left leg has always been worse than his right leg although reportedly this weakness is significantly off his baseline. He notes the last 2 days he has had a generalized illness consisting of 2 days of nausea and vomiting with generalized abdominal pain, loss of bowel control and a little diarrhea. This illness appears to have resolved and he has not of these symptoms today. No fevers or chills no respiratory or urinary symptoms. He tested positive for COVID on . This was treated with remdesivir. He currently denies any nasal congestion, shortness of breath, cough, sinus pain. Discharge Exam General: NAD, VS as above, sitting up in bed Resp: normal respiratory effort, lungs clear to auscultation CV: RRR, no murmur, Abd: normal bowel sounds, non tender, no hepatosplenomegaly Extremities: Moves all extremities, trace edema. Chronic contractures of right hand Neuro: A&O x3, Discharge Plan Discharge Items Patient Disposition: Home - Home Health Services Reason For Visit: FALL, HYPOXIA Discharge Diagnosis: Norovirus Activity: Resume your previous activity Activity Comment: work with therapy to get stronger Weightbearing: Full weightbearing Non-emergency contact: Primary Care Provider Call non-emergency contact if: you have any medication questions, your pain is not controlled and your pain is worsening Follow-up/Referrals: Royce Negron MD, PhD [Physician] - (Keep appointment 07/03 ) Tramaine Peterson MD [Primary Care Provider] - Diet: Heart Healthy and Low Sodium (2gm) Addtl Attending Provider Instructions: Mr. Louise, You were hospitalized after weakness and falls that was found to be related to your Norovirus infection. You improved with supportive care. We also made changes to your heart medications. If you have continued difficulty with dose adjustments they may refer you to the CHF clinic for closer follow up. Please resume the home dose of Entresto 51/49mg. Please keep the ray in place until follow up with urology. Medication changes: - Resume Entresto 51/49mg BID - Start Vitamin D supplementation, your vitamin D level was checked and low. This daily supplement has been sent to the pharmacy - Hold Colace and Senna for ~ 1 week until your bowels return to normal. If you get constipated before then, you can restart before one week. You have blood cultures pending at the time of discharge, they are negative at 24 hours but take 5 days to get final results. If they turn positive you will be notified, you can also check in with your PCP or the [facility] portal. However, given your symptoms I do not expect they will be positive. Follow Ups: - PCP within one week - Cardiology - Keep appointment with Dr. Butt 07/03 - Urology - should be seen next week. [facility] that [facility] were discharge to be referred to the [place] Urologist. If you need to see [facility] please call this number: [phone] Activity: You can do normal everyday activities as your body allows. Take rest breaks if you feel tired. Do not overexert. Stop activity if you have pain, shortness of breath or feel dizzy. Home health therapy has been arranged to come work with you to get stronger. Follow-up appointments: Make an appointment with your primary care physician within one week of discharge. A copy of this summary will be sent to them. Every time you see your primary care physician, or any other doctor, bring your medication list, and a list of questions. CONTACT YOUR PRIMARY CARE PROVIDER if you experience any of the following: Shortness of breath or difficulty breathing Fevers or chills Feeling tired with normal activity or experiencing dizziness or fainting Difficulty following your treatment plan, or difficulty taking medications CALL 911 OR GO TO THE EMERGENCY DEPARTMENT if you experience any of the following: Severe abdominal pain or nausea/vomiting Severe chest pain, or chest pain that radiates (moves) to your jaw or arm Sudden, severe shortness of breath or difficulty breathing Thank you for allowing us to participate in your care. Heidy BLANTON Pending Studies at Discharge: Yes (blood cultures ) Stand-Alone Forms: My [facility] Medications and DC Order Prescriptions: New cholecalciferol (vitamin D3) [Vitamin D3] 10 mcg (400 unit) Tablet 10 mcg PO QAM Qty: 30 0RF Continued bumetanide 1 mg tablet 1 mg PO QAM Qty: 90 3RF potassium chloride 20 mEq tablet extended release 20 meq PO BID Qty: 200 3RF sacubitril-valsartan 49-51 mg tablet 1 tab PO AMPM Hold Instructions: hold until you see your outpatient doctors cetirizine 10 mg tablet 10 mg PO QDB carvedilol 25 mg tablet 0 mg PO BID Rx Instructions: Last filled 02/18/24 x90 day supply. Original Directions: 25mg po bid bupropion HCl 100 mg tablet 100 mg PO BID Rx Instructions: TAKE THIS MEDICATION EVERY MORNING AND AT NOON albuterol sulfate 90 mcg/actuation HFA aerosol inhaler 2 puffs inhalation Q6H PRN (Reason: Shortness Of Breath Or Wheezing) finasteride 5 mg tablet 5 mg PO QAM pantoprazole 40 mg tablet,delayed release (DR/EC) 40 mg PO BID Eliquis 5 mg tablet 5 mg PO BID Qty: 180 3RF PreserVision AREDS 4,296 mcg-226 mg-90 mg capsule 1 cap PO BID aspirin 81 mg Tablet,Delayed Release (Dr/Ec) 81 mg PO QAM Refresh Lacri-Lube 56.8-42.5 % Ointment 1 applic OPHTHALMIC (EYE) HS Rx Instructions: 1/8th INCH IN EACH EYE Stiolto Respimat 2.5-2.5 mcg/actuation Mist 2 puff INHALATION QAM epinephrine 0.3 mg/0.3 mL Auto-Injector 0.3 mg IM DIRECTED PRN (Reason: sEVERE ALLERGIC REACTION) nystatin 100,000 unit/gram Ointment 1 applic TOPICAL BID PRN (Reason: Jenny skin infection) ondansetron HCl 8 mg Tablet 4 mg PO Q8H PRN (Reason: Nausea And Vomiting) aluminum hydroxide gel 320 mg/5 mL Suspension 960 mg PO DAILY PRN (Reason: Heartburn) rosuvastatin 20 mg Tablet 10 mg PO DAILY pramipexole 0.375 mg tablet extended release 24 hr 0 mg PO QAM Rx Instructions: Last filled 12/2023 x90 day supply. Original Directions: 0.375mg by mouth daily oxycodone [OxyContin] 10 mg Tablet,Oral Only,Ext.Rel.12 Hr 10 mg PO BID nystatin 100,000 unit/gram Powder 1 applic TOPICAL TID Qty: 15 1RF Rx Instructions: apply to rash in groin for 7 days then stop Held docusate sodium 100 mg capsule 100 mg PO BID Hold Instructions: Resume on 06/27/24. sennosides 8.6 mg Tablet 8.6 mg PO BID Hold Instructions: Resume on 06/27/24. Discharge Orders: Discharge Order (Routine); Ordered 06/20/24 Ordered By: Heidy Delgado Admission Data Admit Date/Time: 06/16/24 10:16 Attending Provider: Maria Teresa Moses Admit Provider: Howard Law Primary Care Provider: Tramaine Peterson Other Providers: Howard Law Other Interventions: Discharge Summary Assessment (RN) Last Done: 06/20/24 12:33 Hospital Stay Data Consultations 06/16/24 10:01 ED Decision to Admit Stat Diagnostic Imagining Performed Abdomen/Pelvis CT 06/16/24 07:21 CT OF THE ABDOMEN AND PELVIS WITH CONTRAST CLINICAL HISTORY: Fall. COMPARISON STUDY: CT of the abdomen and pelvis June 06, 2024. TECHNIQUE: Following IV administration of 112 mL of Optiray, axial images of the abdomen and pelvis were obtained from the lung bases to the proximal femurs. Images were reviewed in the axial, sagittal, and coronal planes. IV contrast was administered without complication. Automated exposure control was utilized for the study. A dose lowering technique was utilized adhering to the principles of ALARA. CT DOSE: 3793.08 mGy.cm FINDINGS: Please note that the chest CT will be reported separately. Emphysema, a hiatal hernia and lower lobe opacity suggestive of atelectasis are better depicted on that exam. There is no evidence for traumatic injury to the liver, spleen, adrenal glands, kidneys or pancreas. There are bilateral renal cysts. Hypodense splenic lesions are likely benign. There is no significant biliary ductal dilatation status post cholecystectomy. The adrenal glands, liver and pancreas are unremarkable. The caliber and wall thickness of small and large bowel are normal. Postoperative findings within the right inguinal canal are present. A Ray balloon within the bladder is noted. This colonic diverticulosis. No evidence for acute diverticulitis. No acute fractures within the lumbar spine, pelvis or hips are identified. IMPRESSION: 1. No acute traumatic findings within the abdomen or pelvis. No significant change since prior CT. 2. No bowel obstruction. No bowel wall thickening. Colonic diverticulosis. No evidence for acute diverticulitis. ACT 112: Negative or not required by law. Electronically signed by: Adam Benson M.D. 06/16/2024 9:[address] 06/16/24 07:21 CT cervical spine wo con CT DOSE: 3793.08mGy*cm CLINICAL HISTORY: Ground-level fall COMPARISON: 12/26/2021 TECHNIQUE: Multiple axial CT images of the cervical spine were obtained without contrast. Sagittal and coronal reconstructions were done. A dose lowering t echnique was utilized adhering to the principles of ALARA. FINDINGS: The left maxillary antrum is opacified. There is no evidence of acute fracture or traumatic malalignment. The prevertebral soft tissues are negative. The odontoid and atlantoaxial articulation are intact. Multilevel cervical spondylosis is redemonstrated. 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 IMPRESSION: Stable exam; no acute traumatic cervical spine injury identified. The left maxillary antrum is opacified. The aortic arch is ectatic. ACT 112: Negative or not required by law. The above report was generated using voice recognition software. It may contain grammatical, syntax or spelling errors. Electronically signed by: Rhonda Sterling M.D. 06/16/2024 9:40 AM Chest X-Ray 06/16/24 07:21 XR chest 1V portable CLINICAL HISTORY: fall COMPARISON STUDY: Chest CT April 14, 2024. Chest radiograph June 08, 2024. FINDINGS: Left subclavian biventricular pacer/AICD is in place. Cardiomegaly is again noted. There is underlying emphysema. Bibasilar opacities are similar to prior exam and favor atelectasis. There is no consolidation. There is no evidence for pulmonary edema. Elevation of the left hemidiaphragm is again noted. Blunting of the left costophrenic angle is due to epicardial fat pad. IMPRESSION: No acute cardiopulmonary findings. No change in appearance of the chest. ACT 112: Negative or not required by law. Electronically signed by: Adam Benson M.D. 06/16/2024 8:[address] 06/16/24 07:21 CT head/brain wo con CLINICAL HISTORY: Ground-level fall TECHNIQUE: Multiple axial CT images of the head were obtained without contrast. Sagittal and coronal reconstructions were done. A dose lowering technique was utilized adhering to the principles of ALARA. CT DOSE: 3793.08mGy*cm COMPARISON: 05/31/2020 FINDINGS: CT findings are stable. There is no intra-axial or extra-axial fluid collection, hemorrhage, or mass. Senescent atrophy and small vessel insufficiency changes are once again noted. There is no skull fracture. There is a small posterior convexity scalp hematoma. IMPRESSION: Stable exam; no acute intracranial process. ACT 112: Negative or not required by law. The above report was generated using voice recognition software. It may contain grammatical, syntax or spelling errors. Electronically signed by: Rhonda Sterling M.D. 06/16/2024 9:31 AM Pelvis X-Ray 06/16/24 07:21 XR pelvis 1-2V routine CLINICAL HISTORY: fall COMPARISON: 12/21/2018 FINDINGS: Single view pelvis is unchanged. There is no acute traumatic osseous or articular injury identified. The hips are normally aligned. There is no fracture identified. There are degenerative changes in the lower lumbar spine. The SI joints are unremarkable. IMPRESSION: No acute traumatic injury identified. ACT 112: Negative or not required by law. Electronically signed by: Rhonda Sterling M.D. 06/16/2024 8:49 AM Chest CTA 06/16/24 08:43 CT ANGIOGRAPHY OF THE CHEST, PULMONARY EMBOLUS PROTOCOL CLINICAL HISTORY: Shortness of breath. Evaluate for pulmonary embolus. COMPARISON STUDY: Chest CT April 14, 2024. Chest radiograph performed earlier today. TECHNIQUE: Following IV administration of Optiray, helical axial images of the chest were obtained utilizing the pulmonary embolus protocol. Maximal intensity projections and sagittal and coronal reformats were viewed on an independent 3D workstation. IV contrast was administered without complication. Automated exposure control was utilized for the study. A dose lowering technique was utilized adhering to the principles of ALARA. FINDINGS: No pulmonary emboli are identified although segmental and subsegmental pulmonary arteries within the lower lobes are suboptimally opacified. A left subclavian pacer is in place. The heart is moderately enlarged. A hiatal hernia with partially intrathoracic stomach is again noted. There is no thoracic lymphadenopathy. Emphysema is again noted. Lower lung predominant groundglass opacities are unchanged. Linear densities within the lower lobes are also unchanged and favor scarring. There is no consolidation to suggest pneumonia. No pneumothorax or pleural effusion is present. A 1.3 cm focus of secretions within the right mainstem bronchus is present. There are no acute fractures within the bony thorax. Abdomen and pelvis CT will be reported separately. IMPRESSION: 1. No pulmonary emboli identified although lower lobe segmental and subsegmental pulmonary arteries suboptimally opacified. 2. No significant change in appearance of the chest. Lower lobe ground glass opacities with linear densities within the lower lobes and lingula suggestive of scarring. No consolidation to suggest pneumonia. 3. Cardiomegaly. 4. Emphysema. ACT 112: Negative or not required by law. Electronically signed by: Adam Benson M.D. 06/16/2024 9:35 AM Brain MRI 06/16/24 11:25 MRI OF THE BRAIN WITHOUT CONTRAST CLINICAL HISTORY: Left lower extremity weakness. Fall. COMPARISON STUDY: Head CT May 31, 2020. Head CT performed earlier today. MRI of the brain October 29, 2020. TECHNIQUE: Utilizing a 1.5 Peggy magnet and dedicated coil, multiplanar, multiecho imaging of the brain was performed without IV contrast. FINDINGS: There are no foci of restricted diffusion to suggest acute infarct. No acute intracranial hemorrhage, midline shift or mass effect is present. Ventricular system is unremarkable. Basal cisterns are patent. Flow-voids for the major intracranial vessels are present. Mild white matter T2 hyperintense foci are predominantly periventricular in distribution. The findings suggest small vessel disease. No intracranial masses identified on unenhanced exam. Calvarial signal is normal. There is moderate mucosal thickening with air-fluid level with secretions within the left maxillary sinus. IMPRESSION: 1. No acute intracranial findings. 2. Left maxillary sinus mucosal thickening, small air-fluid level and secretion s. ACT 112: Negative or not required by law. Electronically signed by: Adam Benson M.D. 06/16/2024 1:01 PM Lumbar Spine X-Ray 06/17/24 08:14 EXAM: Radiographs of the Lumbosacral Spine 3 Views INDICATION: Weakness. Fell yesterday. TECHNIQUE: Frontal, lateral and spot lateral views obtained. COMPARISON: No relevant prior studies available. FINDINGS: Limitations: None. Vertebrae: Diffuse moderate to severe facet arthrosis noted. Mild to moderate diffuse spondylosis and uncal spurring present. No fracture. No subluxation. Pedicles intact. Sacrum/coccyx: No acute change noted. Disc spaces: Diffuse moderate disc space degeneration. Multilevel foraminal stenosis present. Soft tissues: 4 mm stone versus overlying artifact right kidney. No radiopaque foreign body noted. Vasculature: Atherosclerotic calcification of the aorta noted. IMPRESSION: 1. Multilevel moderate to severe degenerative changes. No acute abnormality. 2. 4 mm right kidney stone versus overlying artifact. ACT 112: Negative or not required by law. Electronically signed by Catherine Arreguin 06-17-2024 09:37 AM Calcaneus X-Ray 06/17/24 10:18 EXAM: Radiographs of the Right Calcaneus 2 Views INDICATION: Wounds. TECHNIQUE: Lateral and plantar views of the right calcaneus. COMPARISON: No relevant prior studies available. FINDINGS: Limitations: None. Bones/joints: There is mild plantar calcaneal spurring. There is mild calcification in the adjacent plantar fascia. There is no fracture or erosion. Soft tissues: Mild soft tissue swelling noted. No soft tissue gas collection. IMPRESSION: 1. Mild soft tissue swelling. 2. No plain radiographic evidence of osteomyelitis. 3. Plantar calcaneal spurring and evidence of chronic plantar fasciitis. ACT 112: Negative or not required by law. Electronically signed by Catherine Arreguin 06-17-2024 11:25 AM Calcaneus X-Ray 06/17/24 10:18 EXAM: Radiographs of the Left Calcaneus 2 Views INDICATION: Wounds TECHNIQUE: Lateral and plantar views of the left calcaneus. COMPARISON: 12/08/2023 FINDINGS: Limitations: None. Bones/joints: Stable prominent plantar calcaneal spur. Small adjacent calcification in the adjacent plantar fascia. 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 No fracture, erosion or periosteal reaction. Soft tissues: Mild diffuse soft tissue swelling noted. No soft tissue gas collection or radiopaque foreign body. IMPRESSION: 1. Mild soft tissue swelling. 2. No plain radiographic abnormality of osteomyelitis. 3. Plantar calcaneal spurring and evidence of chronic plantar fasciitis. . ACT 112: Negative or not required by law. Electronically signed by Catherine Arreguin 06-17-2024 11:25 AM Chest X-Ray 06/17/24 10:25 EXAM: Radiographs of the Chest 2 Views INDICATION: Heel wounds. TECHNIQUE: Frontal and lateral views of the chest. COMPARISON: No relevant prior studies available. FINDINGS: Lungs and pleural spaces: There is linear and patchy airspace disease in both lung bases with left diaphragmatic elevation consistent with volume loss. No visible pleural effusion or pneumothorax. Heart: Enlarged shadow. Pacing leads in the right atrium, right ventricle and coronary sinus. Mediastinum: Normal contour. Bones/joints: No fracture, erosion or dislocation. IMPRESSION: Bilateral basilar atelectasis and possible pneumonia. ACT 112: Negative or not required by law. Electronically signed by Catherine Arreguin 06-17-2024 11:25 AM Chest X-Ray 06/18/24 08:06 EXAM: Radiograph of the Chest 1 View INDICATION: Follow-up pneumonia TECHNIQUE: Frontal view of the chest. COMPARISON: 06/17/2024 FINDINGS: Lungs and pleural spaces: See below. Heart: Stable enlargement and pacing device. Mediastinum: Normal contour. Bones/joints: No fracture, erosion or dislocation. Soft tissues: No abnormality noted. No radiopaque foreign body noted. Tubes, lines and devices: Left base partially obscured by the pacing device. There is persistent but improved left basilar atelectasis. Stable atelectasis right base. Stable left basilar pleural effusion or thickening. Upper abdomen: No abnormality noted. IMPRESSION: Minimal improved aeration left base. Otherwise unchanged. ACT 112: Negative or not required by law. Electronically signed by Catherine Arreguin 06-18-2024 08:31 AM Pending Results Patient Have Any Pending Studies at Discharge: Yes (blood cultures ) Discharge Instructions Given to Patient (Per Discharging Provider) Mr. Louise, You were hospitalized after weakness and falls that was found to be related to your Norovirus infection. You improved with supportive care. We also made changes to your heart medications. If you have continued difficulty with dose adjustments they may refer you to the CHF clinic for closer follow up. Please resume the home dose of Entresto 51/49mg. Please keep the ray in place until follow up with urology. Medication changes: - Resume Entresto 51/49mg BID - Start Vitamin D supplementation, your vitamin D level was checked and low. This daily supplement has been sent to the pharmacy - Hold Colace and Senna for ~ 1 week until your bowels return to normal. If you get constipated before then, you can restart before one week. You have blood cultures pending at the time of discharge, they are negative at 24 hours but take 5 days to get final results. If they turn positive you will be notified, you can also check in with your PCP or the [facility] portal. However, given your symptoms I do not expect they will be positive. Follow Ups: - PCP within one week - Cardiology - Keep appointment with Dr. Butt 07/03 - Urology - should be seen next week. Please tell your [place] PCP that you were discharge to be referred to the [place] Urologist. If you need to see [facility]rology please call this number: [phone] Activity: You can do normal everyday activities as your body allows. Take rest breaks if you feel tired. Do not overexert. Stop activity if you have pain, shortness of breath or feel dizzy. Home health therapy has been arranged to come work with you to get stronger. Follow-up appointments: Make an appointment with your primary care physician within one week of discharge. A copy of this summary will be sent to them. Every time you see your primary care physician, or any other doctor, bring your medication list, and a list of questions. CONTACT YOUR PRIMARY CARE PROVIDER if you experience any of the following: Shortness of breath or difficulty breathing Fevers or chills Feeling tired with normal activity or experiencing dizziness or fainting Difficulty following your treatment plan, or difficulty taking medications CALL 911 OR GO TO THE EMERGENCY DEPARTMENT if you experience any of the following: Severe abdominal pain or nausea/vomiting Severe chest pain, or chest pain that radiates (moves) to your jaw or arm Sudden, severe shortness of breath or difficulty breathing Thank you for allowing us to participate in your care. Heidy BLANTON Supervising Physician Co-Signing Physician Notes PA Supervision Note: I did not personally see or examine the patient today, but I verified all arias points of BRYNN Delgado's assessment and plan with the following exceptions/additions: None Total Time Total Time Spent Total Time Spent (In Minutes): Time spent day of discharge 45 minutes including direct patient care, medication reconciliation, documentation, review of labs and images, and coordination of care. Coding Level of Care Code 37495 INP/OBS DISCH >30 MIN Diagnoses Fall W19.XXXA Encounter type: initial encounter Norovirus A08.11 Sleep apnea G47.30 Bilateral foot-drop M21.371; M21.372 Scalp hematoma S00.03XA Cardiomyopathy I42.9 Atrial fibrillation, controlled I48.91 CHF (congestive heart failure) I50.9 Heart failure chronicity: acute on chronic Heart failure type: unspecified
[2024-06-20 12:49] VITALS: BP 102/66; PULSE 80
== END 2024-06-20 13:40 | disposition home health service (06) | DRG 392 ==
LOC: ED 07:15 → EDINP 10:16 → SUATTDRO 10:16 → 3E 13:02

== ENCOUNTER 2024-07-02 18:30 | Inpatient (IN) ==
--- OUTSIDE RECORDS SUMMARY | 2024-07-02 18:34 | External Medical Summary | Continuity of Care Document ---
Author Name Unknown Organization [facility] [address] [address] [place] [phone] Care Team Providers Care Sap Payroll Consultant Name Role Phone Tramaine Peterson Primary Care Physician [phone] [id number] Date(s): 06/26/24 - 06/26/24 [facility] [address] [place] [phone] Encounter Diagnosis Chronic orthostatic hypotension(Discharge Diagnosis) - 06/26/24 Urinary retention(Discharge Diagnosis) - 06/26/24 Parkinson disease(Discharge Diagnosis) - 06/26/24 Systolic CHF, chronic(Discharge Diagnosis) - 06/26/24 Unspecified atrial fibrillation(Discharge Diagnosis) - 06/26/24 Peripheral neuropathy(Discharge Diagnosis) - 06/26/24 Discharge Disposition: Home or Self Care Attending Physician: MD Peterson Christopher Encounter Type: Clinic Allergies, Adverse Reactions, Alerts Substance Criticality Severity Reaction Reaction Severity Status lidocaine rash Active oxycodone GI distress Active Bee sting breathing Active hydrocodone Gi distress Active penicillins breathing/rash Act nhan Assessment and Plan Extracted from: Title:Office Visit Note - APSO Author:MD Marshall Natalia Date:06/26/24 1.Chronic orthostatic hypo tension Chronic condition, stable Goal:Resolution Data:external notes including: _DischargeSummary;reviewedCXR,headCT, head MRI, l-spineXR,c-spine CT, CBC,BMP, stoolPCR, blood culture Plan: - Recent fall in the setting of chronic orthostatism, peripheral neuropathy, and acute worsening with dehydration from Norovirus infection and subsequent volume loss through bm and vomiting - N/V/D resolved by this point but patient still not eating much and fluid intake is low; discussed importance of adequate hydration and nutritionto prevent recurrence of sxs - Has neurology f/u for peripheral neuropathy and hxof Parkinson's Transitional Care Visit Plan: Initial transitional care contact documentation reviewed and was made on 06/21/24 (patient discharged on 06/20/25) Medical Decision Making: _Moderately or Highly Complex (seen within 14 days of discharge) (03697) X Highly Complex (seen within 7 days of discharge) (59805) Medication Reconciliation: X Medication list reconciled _Medication list given to patient/family/caregiver at discharge Referrals: _None - already scheduled to see oil well service operator, neurologist, and urologist _Care duty manager _Referred to: _Referred to: _Referred to:_ Community Resources identified for patient/family: _None needed - has PT and home health _Home health agency for:_ _Office of aging _Assisted living _Hospice _Support group for:_ _Physical therapy for: _Occupational therapy for:_ _Education program for:_ _Other:_ Durable medical equipment: _None _DME ordered:Type:_ Duration: _ Additional communication delivered or planned to: _Family/caregiver:_ _Home health agency:_ _Specialists:_ _Other:_ Patient Education: _Topics discussed:_ _Handouts given:_ per Connected patient education. _ Other:_ 2.Parkinson disease Chronic condition, stable Goal:_Monitoring Plan: _ - F/u w/ neurology as above. Continue Pramipexole 3.Peripheral neuropathy Chronic condition, stable Goal:Resolution Plan: - F/u withneurology as above 4.Systolic CHF, chronic Chronic condition, stable Goal:Monitor Data:unique tests reviewed: _TTE(06/17/24;resultsas above) Plan: - Recent EF of 25-30% which is unchanged from previous TTE - Weight decreased from 217 to 210 lb - Continue Entresto (tolerating well), Bumex, ASA 81 mg, Coreg; continue potassium tabswhile on Bumex 5.Unspecified atrial fibrillation Chronic condition, stable Goal:Resolution Plan: - S/p ablation in 04/2024 after experiencingpalpitations and tachycardia; no recurrence - Continue Eliquis; cardiology f/u as mentioned above 6.Urinary retention Chronic condition exacerbated/progressive/side effects of treatment Goal:Resolution Plan: - Hx ofneeding self cath hs from urinary retention - Found to be retaining in urology office before hospital admission and foleyplaced; draining clear/dark urine w/o blood or sediment in line or collecting bag - No signs or sxs of infection - Scheduled to see [place] urologist later this week to address ray Immunizations Given and Recorded Vaccine Date Status [...] Refills: 0 Start Date: 08/20/11 Status: Ordered Repeat number: 1 bumetanide 1 mg oral tablet Start: 07/21/11 10:01:00 AM EDT, 1 tab, PO, Daily Start Date: 07/21/11 Status: Ordered Repeat number: 1 buPROPion 100 mg oral tablet Start: 04/13/14 10:18:00 AM EST, 1 tab, PO, bid Start Date: 04/13/14 Status: Ordered Repeat number: 1 carvedilol 12.5 mg oral tablet Start: 01/29/15 12:33:00 PM EDT, 1 tab, PO, bid Start Date: 01/29/15 Status: Ordered Repeat number: 1 cetirizine Start: 03/21/21 11:30:00 AM EST Start Date: 03/21/21 Status: Ordered Repeat number: 1 Doculase 100 mg oral capsule Start: 10/09/10 11:28:00 AM EDT, 1 cap, PO, bid, PRN: as needed for constipation Start Date: 10/09/10 Status: Ordered Repeat number: 1 Eliquis 5 mg oral tablet Start: 11/04/23 3:37:00 PM EDT, 1 tab, PO, bid Start Date: 11/04/23 Status: Ordered Repeat number: 1 Entresto 49 mg-51 mg oral tablet Start: 06/02/24 8:37:00 AM EST, 1 tab, PO, bid Start Date: 06/02/24 Status: Ordered Repeat number: 1 epinephrine 0.3 mg injectable kit Start: 10/09/10 11:30:00 AM EDT, 0.3 mg =, IM, ONCE, PRN: as needed for anaphylaxis Start Date: 10/09/10 Status: Ordered Repeat number: 1 finasteride 5 mg oral tablet Start: 10/09/10 11:30:00 AM EDT, 1 tab, PO, Daily Start Date: 10/09/10 Status: Ordered Repeat number: 1 metoclopramide 5 mg oral tablet Start: 10/09/10 11:29:00 AM EDT, 2 tab, PO, q8h Start Date: 10/09/10 Status: Ordered Repeat number: 1 mometasone nasal 50 mcg/inh spray Start: 10/09/10 11:29:00 AM EDT, 2 spray, intranasal, Daily, PRN: as needed for allergy symptoms Start Date: 10/09/10 Status: Ordered Repeat number: 1 nystatin 100,000 units/g topical powder Start: 05/30/24 9:02:00 AM EST Start Date: 05/30/24 Status: Ordered Repeat number: 1 oxyCODONE 10 mg oral tablet Start: 05/24/24 9:19:00 AM EST, 1 tab, PO, q12h, Refills: 0 Start Date: 05/24/24 Status: Ordered Repeat number: 1 pantoprazole 40 mg oral delayed release tablet Start: 08/02/12 2:55:00 PM EDT, See Instructions, Disp# 60 tab, Refills: 1, 1 tab PO BID while takingalleve for shoulder pain [phone], Brand Medically Necessary Start Date: 08/02/12 Status: Ordered Quantity: 60.0 Unit: tab Repeat number: 2 Potassium Chloride (Jov-Myxb-Jhw M20) Start: 05/30/24 9:00:00 AM EST, 20 mEq =, PO, bid Start Date: 05/30/24 Status: Ordered Repeat number: 1 pramipexole 0.375 mg oral tablet, extended release Start: 11/04/23 3:37:00 PM EDT Start Date: 11/04/23 Status: Ordered Repeat number: 1 ProAir HFA 90 mcg/inh inhalation aerosol Start: 07/18/14 1:33:00 PM EDT, 2 puff, inhaled, PRN: as needed for wheezing Start Date: 07/18/14 Status: Ordered Repeat number: 1 Refresh Start: 04/13/14 10:25:00 AM EST, 1 drop, both eyes, bid Start Date: 04/13/14 Status: Ordered Repeat number: 1 rosuvastatin 20 mg oral tablet Start: 06/02/24 9:59:00 AM EST, 0.5 tab, PO, Daily Start Date: 06/02/24 Status: Ordered Repeat number: 1 senna 8.6 mg oral tablet Start: 08/20/11 9:07:00 AM EDT, 1 tab, PO, bid, PRN: as needed for constipation Start Date: 08/20/11 Status: Ordered Repeat number: 1 Stiolto Respimat 10 ACT 2.5 mcg-2.5 mcg/inh inhalation aerosol Start: 05/30/24 9:03:00 AM EST, 2 inh, inhaled, Daily Start Date: 05/30/24 Status: Ordered Repeat number: 1 Mental Status 06/26/24 Barriers to Learning one year None evide nt Mandatory Health Literacy Documentation Yes Health Literacy Communication Barriers N ever Primary Language Luxembourgish Problem List Condition Confirmation Course Effective Dates [...] - Obstructive sleep apnea Confirmed 11/04/23 Active Parkinson disease Confirmed Active Peripheral neuropathy Confirmed Active Urinary retention Confirmed Active Systolic CHF, chronic Confirmed Active 1Total removed previously: 03-07 including 5 removed at 08-01-2012 [facility]. None were cancerous, few were"pre-cancerous" Diagnosis Diagnosis Type Effective Dates Health Status Clinical Service Informant Systolic CHF, chronic Discharge Diagnosis 06/26/24 Non-Specified Urinary retention Discharge Diagnosis 06/26/24 Non-Specified Unspecified atrial fibrillation Discharge Diagnosis 06/26/24 Non-Specified Peripheral neuropathy Discharge Diagnosis 06/26/24 Non-Specified Chronic orthostatic hypotension Discharge Diagnosis 06/26/24 Non-Specified Parkinson disease Discharge Diagnosis 06/26/24 Non-Specified Procedures Procedure Date Related Diagnosis Body [...] of chest 11/09/13 Completed colonoscopy 08/11/12 Completed echocardiogram-[facility] 08/11/12 Compl eted shoulder 43 08/02/12 Completed shoulder 44 08/02/12 Completed colonoscopy-[facility] 45 08/01/12 Com pleted Defibrillator 04/26/11 [...] 2 in 2003 48Surgery on right foot [id number], 1986 50with polypectomy Vital Signs Most recent to oldest [Reference Range]: 1 Temperature [36.5-37.9 DegC] 36.5 DegC (06/26/24 10:35 AM) Blood Pressure 124/62mmHg (06/26/24 10:35 AM) Social History Social History Type Response Tobacco Current every day sm oker, Cigarettes, 10 per day. 55 year(s). Started age 16 Years. 1 Smoking Status Former Smoker, quit > 1 yr Sex Male Sex Representation Male (finding) 1quit July 05, 1992 FCM Outpt Note * MD Nicholas, Tramaine: MODIFY MD Peterson Christopher: MODIFY Event Display: FCM Outpt Note Authored Date: [id number] Assessment/Plan 1.Chronic orthostatic hypotension Chronic condition, stable Goal:Resolution Data:external notes including: _DischargeSummary;reviewedCXR,headCT, head MRI, l-spineXR,c-spine CT, CBC,BMP, stoolPCR, blood culture Plan: - Recent fall in the setting of chronic orthostatism, peripheral neuropathy, and acute worsening with dehydration from Norovirus infection and subsequent volume loss through bm and vomiting - N/V/D resolved by this point but patient still not eating much and fluid intake is low; discussedimportance of adequate hydration and nutritionto prevent recurrence of sxs - Has neurology f/u for peripheral neuropathy and hxof Parkinson's Transitional Care Visit Plan: Initial transitional care contact documentation reviewed and was made on 06/21/24 (patient discharged on 06/20/25) Medical Decision Making: _Moderately or Highly Complex (seen within 14 days of discharge) (44715) X Highly Complex (seen within 7 days of discharge) (09714) Medication Reconciliation: X Medication list reconciled _Medication list given to patient/family/caregiver at discharge Referrals: _None - already scheduled to see oil well service operator, neurologist, and urologist _Care duty manager _Referred to: _Referred to: _Referred to:_ Community Resources identified for patient/family: _None needed - has PT and home health _Home health agency for:_ _Office of aging _Assisted living _Hospice _Support group for:_ _Physical therapy for: _Occupational therapy for:_ _Education program for:_ _Other:_ Durable medical equipment: _None _DME ordered:Type:_ Duration: _ Additional communication delivered or planned to: _Family/caregiver:_ _Home health agency:_ _Specialists:_ _Other:_ Patient Education: _Topics discussed:_ _Handouts given:_ per Connected patient education. _ Other:_ 2.Parkinson disease Chronic condition, stable Goal:_Monitoring Plan: _ - F/u w/ neurology as above. Continue Pramipexole 3.Peripheral neuropathy Chronic condition, stable Goal:Resolution Plan: - F/u withneurology as above 4.Systolic CHF, chronic Chronic condition, stable Goal:Monitor Data:unique tests reviewed: _TTE(06/17/24;resultsas above) Plan: - Recent EF of 25-30% which is unchanged from previous TTE - Weight decreased from 217 to 210 lb - Continue Entresto (tolerating well), Bumex, ASA 81 mg, Coreg; continue potassium tabswhile on Bumex 5.Unspecified atrial fibrillation Chronic condition, stable Goal:Resolution Plan: - S/p ablation in 04/2024 after experiencingpalpitations and tachycardia; no recurrence - Continue Eliquis; cardiology f/u as mentioned above 6.Urinary retention Chronic condition exacerbated/progressive/side effects of treatment Goal:Resolution Plan: - Hx ofneeding self cath hs from urinary retention - Found to be retaining in urology office before hospital admission and foleyplaced; draining clear/dark urine w/o blood or sediment in line or collecting bag - No signs or sxs of infection - Scheduled to see [place]rologist later this week to address ray Attestation Pt seen and examined in concert with Dr. Rolando Dykes, agree with history and physical as documented above. Plan reviewed in detail. Any corrections or additions are noted here - follow up for dehydration induced syncopal/weakness in the setting of parkinsons with improvement in symptoms following.Ongoing ar[facility] with [facility] with precautions for worsening/changing symptoms and instructions for follow up. Chief Complaint Here for [facility] admission f/u. History of Present Illness Patient is a 79-year-old male with past medical history of HFrEF, PE x 3 and atrial fibrillation (on Eliquis) who comes to clinic for postdischarge follow-up. Post-discharge f/u | Fall | Norovirus Patient was admitted at [facility] on 06/16/24 up until 06/20/24 due to experiencing a ground-level fall after attempting to get out of bed to go to the bathroom with subsequent imbalance/unsteadiness with greater weakness in left lower extremity compared to the right. When he fell, he hit the back of his head but had no loss of consciousness. Of note, patient has longstanding peripheral neuropathy with numbness from his knees and elbows to distal portions of upper and lower extremities as well as bilateral foot drop, with symptoms always being more significant in the left lower extremity compared to the right. Preceding his admission, patient had been experiencing 2 days of a generalized illness which consisted of 2 days of nausea and vomiting as well as generalized abdominal pain, loss ofbowel control and a little diarrhea. At the time of admission, head CT showed a small posterior scalp hematoma, however, brain MRI was negative for CVA or intracranial hemorrhage. CTAP, C- spine CT, chest x-ray, pelvis x-ray, chest CTA,and L-spine x-ray also without new findings or signs of traumatic injury. Blood cultures negative. Labs at the time of discharge on 06/20/2024 (CBC, BMP) overall unremarkable save for mild hyponatremia of 133. No electrolyte abnormalities noted and renal markers within good range. Echocardiogramfrom 06/17/2024 showed no significant change compared to prior studies (EF of 25 to 30%). ICD alsointerrogated and unremarkable. PT/OT did evaluate patient and recommend short term physical therapy after discharge versus HH, however, patient preferred to be discharged home and not proceed with this. Patient was determined to have norovirus with associated dehydration leading to worsening weakness. He was given supportive care with IVF and antiemetics with improvement in symptoms. - Number of bowel movements and/or nausea/vomiting -- resolved - P- .o. intake same as usual (1 meal a day and snacks in between); not a lot of fluid - No recurrence of fall or orthostatic symptoms since time of discharge - Lives with who is also sick - Able to do his activities independently - PT/OT and HH coordinated--[facility] for PT and home nursing; also has marine oil terminal superintendent at home that helps him shower and clean the house Peripheral neuropathy / Parkinsonism - Follows with [facility] neurology; next appt on 09/27/24 - Will soon get specialized shoes for his feet due to his neuropathy HFrEF: - S/p Ablation for a-fib on 04/2024 after experiencing tachycardia; no recurrence since then - Entresto has been on hold due to history of hypotension, which persisted after admission likely due to volume loss through vomiting and diarrhea. -Currently on Coreg and Bumex 1 mg daily, and Entresto resumed after discharge. BP wnl today - F/u with Dr. Negron (cardiology) on 07/03/24 - Weightdecreased hair808ho 210 lb Urinary Retention: - Patient also with long history of urinary retention for which he self caths before bed daily. -This worsened acutely with presentation at that time, therefore, -[facility]. This was continued after discharge and patient agreed to follow-up with [place] urologist, however, [facility] urology number also provided shouldhe prefer this instead. -No signs of infection associated to acute worsening. - [facility] on , 06/[facility]/24 Preventative care: [facility]; next appt inJune or July and will do labs then Physical Exam Vitals & Measurements T:36.5C BP:124/62 SpO2:92% PHQ2 Data(Data Documented on:06/26/2024 10:32) Emotional health assessment NEGATIVE General:_Alert and oriented, No acute distress, In wheelchair HEENT:_ Normocephalic, Nl gross hearing, moist oral mucosa _ Cardiovascular:_Normal rate, Regular rhythm, No murmur, No gallop. Respiratory:_Lungs are clear to auscultation, Respirations are non-labored, Breath sounds are equal Integumentary:_Warm, Dry, [place]. Psych:Mood-affect congruence. Reports no SI/HI. Speech is of normal pace and content Problem List/Past Medical History Ongoing Atrial tachycardia CAD (coronary artery disease) Cardiomegaly Chronic orthostatic hypotension COPD DEPRESSION DiverticulOSIS Ejection fraction < 50% GERD History of colonic polyps History of smoking HTN - Hypertension Hyperlipidemia Ischemic cardiomyopathy MACULAR DEGENERATION (SENILE) OF RETINA, UNSPECIFIED Obesity (BMI 30-39.9) ROSE - Obstructive sleep apnea Parkinson disease Peripheral neuropathy Systolic CHF, chronic Unspecified atrial fibrillation Urinary retention Resolved Acute deep vein thrombosis of leg Acute GI bleeding Allergy, urticaria Atypical chest pain Benign colonic polyp Bursitis, olecranon CELLULITIS Chest pain at rest CONCUSSION Dermatitis Ganglion cyst VT - Silent myocardial infarction Neuropathy Pain of left heel Pulmonary embolism Rectal hemorrhage Renal stone SOB Tubular adenoma Weight disorder Procedure/Surgical History Chest X-ray| Service Date: 2Plain X-ray of left shoulder| Service Date: 02/20/2022lain X-ray of left hip| Service Date: 2Ankle X- ray RT min 3V routine, X-Ray foot RT min 3V routine| Service Date: 03/21/2021olonoscopy| Service Date: 03/06/2020Full sleep study| Service Date: 06/15/2019Cystoscopy| Service Date: 08/05/2017Chest X-ray| Service Date: 07/23/2017KUB X-ray| Service Date: 07/12/2017CT of head| Service Date: 06/04/2017CT of head| Service Date: 05/08/2017RELIEVE BLADDER CONTRACTURE| Service Date: 05/07/2017Chest x-ray| Service Date: 05/06/2017CT head w/o contrast| Service Date: 05/05/2017Chest x-ray| Service Date: 02/15/2017Chest x-ray| Service Date: 12/25/2016X-ray of thoracic spine| Service Date: 10/08/2016Plain X-ray lumbar spine normal| Service Date: 10/08/2016Carotid artery doppler normal| Service Date: 09/02/2016Echocardiogram| Service Date: 09/01/2016CT angiogram of head, neck and thorax| Service Date: 09/01/2016Chest x-ray| Service Date: 09/01/2016CT head w/o contrast| Service Date:09/01/2016KUB X-ray| Service Date: 07/10/2016Endoscopy| Service Date: 05/08/2016Chest x-ray| Service Date: 02/18/2016Punch biopsy| Service Date: 01/22/2016Cervical spine X- ray| ServiceDate: 01/20/2016Soft tissue X-ray face| Service Date: 01/20/2016Gross pathology| Service Date: 11/21/2015Cholecystectomy| Service Date: 11/20/2015CT of abdomen and pelvis| Service Date: Nuclear medicine imaging procedure| Service Date: 11/18/2015X-ray of left foot| Service Date: 10/09/2015Examination of eye| Service Date: 08/05/2015Doppler ultrasonography of arterial inflow and venous outflow of abdominal, pelvic and retroperitoneal organs| Service Date: 06/12/2015Chest x-ray| Service Date: 06/12/2015Chest x-ray| Service Date: 02/19/2015Cataracts- right eye| Service Date: 11/07/2014Colonoscopy| Service Date: 09/10/2014X-ray of left foot| Service Date: 07/18/2014US scan of abdominal aorta| Service Date: 04/20/2014Examination of eye| Service Date: 03/15/2014CT of chest| Service Date: 11/09/2013echocardiogram-[facility]| Service Date: 08/11/2012colonoscopy| Service Date: 08/11/2012shoulder| Service Date: 08/02/2012shoulder| Service Date: 08/02/2012colonoscopy- [facility]| Service Date: 08/01/2012Defibrillator| Service Date: 04/26/2011Stent| Service Date: 11/19/2010Nissen fundoplication| Service Date: 2002Macular hole| Service Date: 1994Foot surgery| Service Date: 1993Hernia| Service Date: 04/26/1986Vasectomy| Service Date: 1974PacermakerHistory of bilateral cataract extractionCystoscopyH istory of colonoscopyHistory of cholecystectomyHistory of cardiac catheterization Medications albuterol(ProAir HFA 90 mcg/inh inhalation aerosol), 2 puff, inhaled, PRN apixaban(Eliquis 5 mg oral tablet), 5 mg= 1 tab, PO, bid aspirin(Aspirin Low Dose), 81 mg, PO, Daily bumetanide(bumetanide 1 mg oral tablet), 1 mg= 1 tab, PO, Daily buPROPion(buPROPion 100 mg oral tablet), 100 mg= 1 tab, PO, bid carvedilol(carvedilol 12.5 mg oral tablet), 12.5 mg= 1 tab, PO, bid cetirizine docusate(Doculase 100 mg oral capsule), 1 cap, PO, bid, PRN EPInephrine(epinephrine 0.3 mg injectable kit), 0.3 mg, IM, ONCE, PRN finasteride(finasteride 5 mg oral tablet), 1 tab, PO, Daily metoclopramide(metoclopramide 5 mg oral tablet), 10 mg= 2 tab, PO, q8h mometasone nasal(mometasone nasal 50 mcg/inh spray), 2 spray, intranasal, Daily, PRN nystatin topical(nystatin 100,000 units/g topical powder) ocular lubricant(Refresh), 1 drop, both eyes, bid olodaterol-tiotropium(Stiolto Respimat 10 ACT 2.5 mcg-2.5 mcg/inh inhalation aerosol), 2 inh, inhaled, Daily oxyCODONE(oxyCODONE 10 mg oral tablet), 10 mg= 1 tab, PO, q12h pantoprazole(pantoprazole 40 mg oral delayed release tablet), See Instructions, 1 refills potassium chloride(Potassium Chloride (Ryo-Iczo-Rkj M20)), 20 mEq, PO, bid pramipexole(pramipexole 0.375 mg oral tablet, extended release) rosuvastatin(rosuvastatin 20 mg oral tablet), 10 mg= 0.5 tab, PO, Daily sacubitril-valsartan(Entresto 49 mg-51 mg oral tablet), 1 tab, PO, bid senna(senna 8.6 mg oral tablet), 8.6 mg= 1 tab, PO, bid, PRN Allergies Bee stingbreathing hydrocodoneGi distress lidocainerash oxycodoneGI distress penicillinsbreathing/rash Social History Smoking Status Former Smoker, quit > 1 yr Alcohol - Denies Alcohol Use Use:Past - Comments: quit in 1990 Employment/School Status:Retired 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[employer], 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 Exercise - Occasional exercise Times per week:5-6 times/week Self assessment:Fair condition Exercise type:Walking - Comments: limited 2/2 cardiac problems Home/Environment Lives with:Spouse Living situation:Home/Independent Nutrition/Health - Low Risk Diet description:balanced, diverticulitis diet Type of diet:Calorie restricted, low salt Caffeine intake amount:very rarely Wants to lose weight:Yes Sleeping concerns:No Feels highly stressed:No Substance Abuse - Denies Substance Abuse Tobacco Use:Current every day smoker Type:Cigarettes Tobacco use per day:10 Number of years:55 Started at age:16Years - Comments: quit July 05, 1992 Intake ([place]) Smoking History Cigarette smoker: Former Smoker, quit > 1 yr Tobacco Product Use: Never used other tobacco products Total pack years: 66 If past smoker, what year did you quit: 1992 What was avg daily use when smokin pk (40 cigarettes) How many total years did you smoke: 33 Family History Cancer: Mother and Father. Heart attack: Mother. High Blood Pressure: Father. Lung disease..: Mother. Health Status Family Member(s) Immunizations Vaccine Date Status influenza virus vaccine, inactivated 01/25/2016 Recorded influenza virus vaccine, inactivated 02/07/2014 Recorded influenza virus vaccine, inactivated 01/10/2013 Given zoster vaccine live 01/10/2013 Given pneumococcal 23-valent vaccine 04/26/2012 Recorded influenza virus vaccine, inactivated 02/04/2012 Recorded tetanus/diphtheria/pertuss, acel (Tdap) 06/25/2011 Recorded Recommendations Health Maintenance Pending(in the next year) OverDue Medicare Annual Wellness Visit due02/16/17nd every 1year Adult Influenza Vaccine due10/25/23and every 1year Due Adult Social Determinants of Health Screening due06/26/24Unknown Frequency Adult Tdap/Td Vaccine due06/26/24Unknown Frequency Falls Plan of Care due06/26/24Unknown Frequency Hepatitis C Screening due06/26/24One-time only Pneumococcal Vaccine Older Adults due06/26/24One-time only Seasonal COVID 19 Vaccine due06/26/24Unknown Frequency Shingles Vaccine due06/26/24One-time only Due In Future Body Mass Index not due until05/25/25and every Satisfied(in the past 1 year) Satisfied Body Mass Index on05/30/24.Satisfied by HAROON Poe, Marichuy Lowry Electronic Signature on File Electronically Reviewed/Signed by: Jessa Marshall MD Author Signature Dt/Tm:06/26/2024 01:22 PM Resident Department of Family Medicine Electronically Reviewed/Signed by: Tramaine Peterson MD Cosigner Signature Dt/Tm: 06/27/2024 10:50AM Department of Family Medicine [place] Patient Care team information Care Team Personnel Name: FRANNY Nunes Kimberly A Position: Physician Asst Exmpt - Family Med Member Role: Lifetime Relationship Address: [address] Telecom: [phone] Name: MD Peterson Christopher Position: Physician - Family Med Member Role: Primary Care Provider Address: [address] Telecom: [phone] Name: FRANNY Perdomo Lynn Position: Physician Bag Tester Exempt - Vasc Surg Member Role: Lifetime Relationship [address]: [address] [place] [address] Telecom: [phone] Care Team Related Persons Name: ALICIA DEUTSCH Name: HUMPHREY DEUTSCH Insurance Providers Guarantor name: ZIGGY CLARKDINESH Health Plan Information #: 2 Payer: [employer] [facility] Member Number: [id number] Policy Number: NA Group Number: [id number] Health Plan Information #: 1 Payer: [facility] Member Number: [id number] Policy Number: NA Group Number: NA
--- NOTE | 2024-07-02 18:40 | Emergency Department Note ---
Impression & Plan Breathlessness, Acute UTI, Fluid overload ED Provider Note Provider: Darren Mata MD CHIEF COMPLAINT: Breathing difficulty HISTORY OF PRESENT ILLNESS: Patient is a 79-year-old gentleman significant past medical history including AICD, paroxysmal atrial fibrillation status post ablation in April, long-term anticoagulation with Eliquis, CHF, emphysema, BPH as well as spasticity presenting here today the ambulance from his home. Patient was in the bathroom and did not have his normal 2 L of oxygen on became quite short of breath. Was noted to be in the low 80s upon EMS arrival. Transition to CPAP for significant work of breathing and this hypoxia. Patient denies falls or syncope. Denies chest pain. Does report a little bit of chronic pain in the hands. Does take oxycodone for this at home. Did have COVID recently. Denies significant GI upset. Reports a bit of swelling particularly in the left foot. PAST MEDICAL HISTORY: As noted above MEDICATIONS: Reviewed home medications includes Eliquis SOCIAL HISTORY: Distant former smoker, lives at home with PHYSICAL EXAM: GENERAL: alert and oriented CPAP mask in place on stretcher. Head: normocephalic and atraumatic EYES: No injection, discharge or icterus. NECK: Trachea midline. ENT: Mucous membranes pink and moist. LUNGS: Airway patent. No retractions. Breath sounds clear without significant wheezing appreciable. HEART: Regular rate and rhythm. No chest wall tenderness ABDOMEN: Soft and non-tender, without guarding or rebound. SKIN: Acyanotic, warm, dry EXTREMITIES: Without swelling, tenderness or deformity some contractures and arthritic deformities (swan-neck and) to bilateral hands noted. NEUROLOGICAL: Moving all extremities to command. Some resting tremor and contractures noted in the bilateral hands. No aphasia. No facial droop or slurred speech. EK bpm ventricular paced rhythm. No PVC. No acute ST segment elevation with nonspecific T wave inversions. Right bundle branch block is noted. CONTINUOUS CARDIAC MONITORING: was ordered and showed a heart rate of 80s to 90s bpm in ventricular paced rhythms Patient's laboratory studies and imaging reviewed. Differential includes Reactive airway disease, pneumonia, pneumothorax, COPD, CHF, infections, cardiac ischemia, pulmonary embolism, musculoskeletal, gastrointestinal, as well as other pathologies. IMPRESSION/MEDICAL DECISION MAKING: Presents patient transition to BiPAP on arrival for work of breathing. Normally is on oxygen by his report. Has had COVID recently. Repeat respiratory viral panel completed today. Chest x-ray obtained. Does report little bit of increased welling to the left leg. Is anticoagulated Eliquis low suspicion for VTE with this. Denies any significant chest pain. EKG here without significant abnormal arrhythmia or obvious ischemic findings/STEMI noted. Benign abdomen. Likely no trauma or syncope has occurred. BNP sent and a VBG obtained to look for hypercarbia. Patient to straight catheter states he needs to void. Had a Kingston removed on but has not been urinating well. Kingston catheter placed here. History of UTI we will check this. Blood work here without severe anemia but leukocytosis 17 is noted. Procalcitonin, lactate and blood culture to be added. VBG without severe hypercarbia or acidosis. No significant acute renal dysfunction or electrolyte abnormality. 1 view chest x-ray here per radiology with some bibasilar consolidations and effusions -- reported unchanged from June 17. Troponin just above normal at 23 but not far off previous baseline. Will give a bit of Bumex as renal function is stable to promote a bit of diuresis. UA is grossly positive for signs of infection. Procalcitonin mildly elevated at 0.71. Given concerns for fluid overload no additional IV fluids given and the patient does not have a significantly elevated lactate or hypotension. Negative respiratory viral panel here. Not having any significant abdominal or flank pain and doubt kidney stone. Patient's abdomen much more comfortable after Kingston placed. Discussed with patient and need for further care here in the hospital. Reviewed prior allergy profile including penicillins and cephalosporins, discussed with pharmacy and the patient sees multiple dose of cefepime in the past without significant issues and the cephalosporin allergies reported to be vomiting. As such we will empirically cover with cefepime for broad-spectrum coverage. Will attempt, as he is doing well, to see if we can wean him from BiPAP back to nasal cannula. This was successful. Discussed with him and his findings and further care in the hospital. Hospitalist team was contacted. Given a little bit of fentanyl to help with his chronic hand pain. DIAGNOSIS: Shortness of breath, acute UTI, fluid overload, sepsis DISPOSITION: Hospitalist will evaluate Patient was agreeable with this plan. Critical Care I have personally spent 48 minutes of critical care time in the direct management of this patient. This includes bedside care, interpretation of diagnostic studies, and testing, discussion with consultants, patient, and family members, and other required patient management activities. These 48 minutes is in excess of all separately billable procedures. Past Med/Surg History Problem List (Updated 07/02/24 @ 19:48 by Darren Mata M.D.) Fluid overload (Acute) Acute UTI (Acute) Breathlessness (Acute) COVID-19 (Acute) Norovirus Scalp hematoma SARS-CoV-2 positive Diarrhea Fall (Acute) CHI (closed head injury) (Acute) Hypoxia (Acute) CAD (coronary artery disease) s/p stent 2010 Sleep apnea bipap Presence of combination internal cardiac defibrillator (ICD) and pacemaker first placed 2010 @ [facility] replaced in 2014 & 2021 @ [facility]--biventricular [employer]. reports last check 11/25/22. Paroxysmal atrial fibrillation Abdominal distension Catheter-associated urinary tract infection UTI (urinary tract infection) (Acute) CHF (congestive heart failure) (Acute) Anticoagulant long-term use PAT (paroxysmal atrial tachycardia) Cardiomyopathy Hypotension (Acute) Atrial fibrillation, controlled Parkinsonism Stage III pressure ulcer of buttock (Acute) Centrilobular emphysema Bilateral foot-drop Esophagitis Dysphagia Biliary dyskinesia (Chronic) Idiopathic peripheral neuropathy (Acute) Cervical spondylosis without myelopathy (Acute) Cervical radiculopathy (Acute) Complex renal cyst Ulnar neuropathy of both upper extremities Agent orange exposure Warfarin anticoagulation (Chronic) Balance problem Elevated PSA 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 Cervicogenic headache Spasticity upper limbs Medical History HFrEF (heart failure with reduced ejection fraction) Atrial tachycardia CHF (congestive heart failure) Tachycardia Pressure ulcer of right heel, stage 4 Benign essential hypertension Ischemic cardiomyopathy Euvolemic at 11/23/22 cardio appt Elevated INR Near syncope Tachycardia Leg pain Elevated lactic acid level Elevated INR Cellulitis Unstageable pressure ulcer of right heel Unstageable pressure ulcer of left heel Hypoxia Vomiting Acute kidney injury Elevated troponin Acute kidney failure Acute UTI Sepsis Severe sepsis Encounter for pre-operative examination Intrinsic minus hand POWERS (dyspnea on exertion) Preop testing Episode of confusion Right upper quadrant abdominal pain Hand laceration Dog bite Chest pain Cellulitis of left arm Peripheral arterial disease Hypertension Tremor ICD (implantable cardioverter-defibrillator) in place Neuropathy Complex sleep apnea syndrome NYHA class 4 acute on chronic systolic heart failure History of kidney stones Emphysema lung Legally blind Chronic back pain History of urinary self-catheterization self caths every other night History of DVT of lower extremity 2010 Macular degeneration Hearing deficit Depression Migraine Myocardial Infarction 10/2010--follows with Dr. Abreu Pulmonary embolism 1992 and 2010 after heart attack--follows with Dr. Abreu Asthma inhaler prn Surgical History Presence of biventricular automatic cardioverter/defibrillator (AICD) S/P epidural steroid injection History of foot surgery plantar fasciitis History of open reduction and internal fixation (ORIF) procedure left foot--hardware removed History of prostate biopsy x3--precancerous, just monitoring for now History of prostate surgery 07/2016--[facility] prostate vaproization History of cystoscopy multiple History of colonoscopy with polypectomy History of esophagogastroduodenoscopy (EGD) History of right inguinal hernia repair x3 History of Khari fundoplication History of cholecystectomy History of tooth extraction History of eye surgery right--macular degeneration History of bilateral cataract extraction History of cardiac cath 10/2010 @ [facility]--1 stent placed Family History Son Family history of diabetes mellitus Other Family history non-contributory No family history of adverse response to anesthesia Social History Smoking Status: Former smoker Tobacco Type: Cigarettes Second Hand Exposure: Yes (father smoked); Do You Dip or Chew Tobacco: No; Hx Alcohol Use: No Hx Substance Use: No Preferred Language: Mohawk Communication Ability: Effective [place] Required: No Beliefs That Will Affect Care: None marital status: Current Living Situation: Spouse Current Living Situation Comment: with [facility] current occupational status: retired Feels Safe at Home: Yes Assistive Devices: BiPap, Oxygen - at Night, Scooter/Electric Scooter, Stair Lift, Walker and Wheelchair Allergies Allergies Allergy/AdvReac Type Severity Reaction Status Date / Time bee venom protein (honey bee) Allergy Severe SWELLING, Verified 06/16/24 10:50 SOB Penicillins Allergy Severe SWELLING, Verified 06/16/24 10:50 DIFFICULTY BREATHING lidocaine Allergy Mild RASH Verified 04/14/24 08:21 gabapentin Allergy Unknown On med Unverified 06/16/24 10:50 list / [facility] Pharmacy icosapent ethyl Allergy Unknown On med Unverified 06/16/24 10:50 list / [facility] Pharmacy pregabalin Allergy Unknown On med Unverified 06/16/24 10:50 list / [facility] Pharmacy cefdinir AdvReac Severe Vomiting Verified 06/16/24 10:50 hydrocodone AdvReac Mild nausea Verified 06/16/24 10:50 oxycodone AdvReac Mild nausea-SLOW Verified 06/16/24 10:50 RELEASE IS OK Home Meds Home Medications Medication Instructions Recorded Confirmed albuterol sulfate 90 mcg/actuation 2 puffs inhalation Q6H PRN 12/01/18 06/16/24 aerosol inhaler Shortness Of Breath Or Wheezing bupropion HCl 100 mg tablet 100 mg PO BID 12/01/18 06/16/24 docusate sodium 100 mg capsule 100 mg PO BID 12/01/18 06/16/24 finasteride 5 mg tablet 5 mg PO QAM 12/01/18 06/16/24 aspirin 81 mg tablet,delayed 81 mg PO QAM 12/21/18 06/16/24 release sennosides 8.6 mg tablet 8.6 mg PO BID 12/21/18 06/16/24 white petrolatum-mineral oil 56.8 1 applic ophthalmic (eye) HS 12/21/18 06/16/24 %-42.5 % eye ointment (Refresh Lacri-Lube) sacubitril 49 mg-valsartan 51 mg 1 tab PO AMPM 11/25/20 06/16/24 tablet pantoprazole 40 mg tablet,delayed 40 mg PO BID 03/10/21 06/16/24 release tiotropium 2.5 mcg-olodaterol 2.5 2 puff inhalation QAM 12/02/22 06/16/24 mcg/actuation mist for inhalation (Stiolto Respimat) cetirizine 10 mg tablet 10 mg PO QDB 05/17/23 06/16/24 epinephrine 0.3 mg/0.3 mL 0.3 mg IM DIRECTED PRN sEVERE 07/08/23 06/16/24 injection, auto-injector ALLERGIC REACTION carvedilol 25 mg tablet 0 mg PO BID 03/27/24 06/16/24 vitamins A,C,A-wiec-ygiwsh 4,296 1 cap PO BID 03/27/24 06/16/24 mcg-226 mg-90 mg capsule (PreserVision AREDS) aluminum hydroxide gel 320 mg/5 mL 960 mg PO DAILY PRN Heartburn 06/16/24 06/16/24 oral suspension nystatin 100,000 unit/gram topical 1 applic topical BID PRN Jenny 06/16/24 06/16/24 ointment skin infection ondansetron HCl 8 mg tablet 4 mg PO Q8H PRN Nausea And Vomiting 06/16/24 06/16/24 oxycodone 10 mg tablet,crush 10 mg PO BID 06/16/24 06/16/24 resistant,extended release 12 hr (OxyContin) pramipexole 0.375 mg 0 mg PO QAM Parkinsonism 06/16/24 06/16/24 tablet,extended release 24 hr rosuvastatin 20 mg tablet 10 mg PO DAILY 06/16/24 06/16/24 Previous Rx's Medication Instructions Recorded bumetanide 1 mg tablet 1 mg PO QAM #90 tabs 10/10/23 potassium chloride 20 mEq 20 meq PO BID #200 tabs 10/10/23 tablet,extended release apixaban 5 mg tablet (Eliquis) 5 mg PO BID #180 tabs 11/23/23 nystatin 100,000 unit/gram topical 1 applic topical TID #15 grams 06/11/24 powder cholecalciferol (vitamin D3) 10 10 mcg PO QAM #30 tabs 06/20/24 mcg (400 unit) tablet (Vitamin D3) Results & Data (ED) Vital Signs Vital Signs - 24 hr 07/02/24 18:38 07/02/24 18:38 07/02/24 18:40 Temperature 37.1 C Temperature Source Axillary Pulse Rate 102 H 95 H Pulse Rhythm Regular Pulse Strength Normal Respiratory Rate 23 Respiratory Effort / Characteristics Spontaneous Short of Breath Non-Labored Spontaneous Respiratory Depth Shallow Normal Respiratory Pattern Regular Regular Blood Pressure 113/70 Blood Pressure Mean 84 Pulse Oximetry 95 Oxygen Delivery Method CPAP BiPAP Fraction of Inspired Oxygen Sepsis Recent Fever Within 48 Hours No Sepsis New/Unexplained Change in Mental Status N/A Sepsis Action Taken by Nursing No Action Required Oxygen Flow Rate - Titration Pulse Oximetry Post Tiitration 07/02/24 18:44 07/02/24 19:01 07/02/24 19:15 Temperature Temperature Source Pulse Rate 82 86 88 Pulse Rhythm Pulse Strength Respiratory Rate 31 H 26 H 32 H Respiratory Effort / Characteristics Spontaneous Short of Breath Respiratory Depth Respiratory Pattern Tachypnea Blood Pressure 123/64 Blood Pressure Mean 88 Pulse Oximetry 97 99 99 Oxygen Delivery Method CPAP Fraction of Inspired Oxygen 40 Sepsis Recent Fever Within 48 Hours Sepsis New/Unexplained Change in Mental Status Sepsis Action Taken by Nursing Oxygen Flow Rate - Titration Pulse Oximetry Post Tiitration 07/02/24 19:30 07/02/24 19:55 Temperature Temperature Source Pulse Rate 83 Pulse Rhythm Pulse Strength Respiratory Rate 28 H Respiratory Effort / Characteristics Respiratory Depth Respiratory Pattern Blood Pressure 118/64 Blood Pressure Mean 85 Pulse Oximetry 97 100 Oxygen Delivery Method Room Air CPAP Fraction of Inspired Oxygen Sepsis Recent Fever Within 48 Hours Sepsis New/Unexplained Change in Mental Status Sepsis Action Taken by Nursing Oxygen Flow Rate - Titration 4 Pulse Oximetry Post Tiitration 94 Laboratory Data 07/02/24 18:48 07/02/24 19:37 Lab Results 07/02/24 07/02/24 07/02/24 Range/Units 18:35 18:48 19:07 WBC 17.23 H (4.8-10.8) K/ul RBC 3.82 L (4.70-6.10) M/uL Hgb 11.2 L (14.0-18.0) g/dl Hct 34.2 L (42.0-52.0) % MCV 89.5 (80.0-100.0) fL MCH 29.3 (25.0-34.0) pg MCHC 32.7 (32.0-36.0) g/dL RDW Std Deviation 47.8 H (36.4-46.3) fL RDW Coeff of Jerry 14.9 H (11.5-14.5) % Plt Count 313 (130-400) K/uL MPV 10.5 (9.4-12.4) fL Immature Gran % (Auto) 0.8 % Neut % (Auto) 85.8 % Lymph % (Auto) 7.8 % Stephens % (Auto) 4.9 % Eos % (Auto) 0.5 % Baso % (Auto) 0.2 % Neut # (Auto) 14.78 H (1.40-6.50) K/uL Lymph # (Auto) 1.34 (1.20-3.40) K/uL Stephens # (Auto) 0.85 H (0.11-0.59) K/uL Eos # (Auto) 0.08 (0.00-0.50) K/uL Baso # (Auto) 0.04 (0.00-0.20) K/uL Immature Gran # (Auto) 0.14 (0.01-0.20) K/uL Absolute Nucleated RBC 0.02 (0.00-0.12) K/uL Nucleated RBC % (auto) 0.1 % PT 13.5 H (9.0-12.0) Seconds INR 1.3 H (0.9-1.1) VBG pH 7.43 H (7.36-7.41) VBG pCO2 34 L (38-50) mmHg VBG pO2 38 mmHg VBG HCO3 23 mmol/L VBG O2 Saturation 67.4 % VBG Base Excess -1.1 mEq/L Sodium 135 L (136-145) mmol/L Potassium TNP Chloride 103 (98-107) mmol/L Carbon Dioxide 24 (21-32) mmol/L Anion Gap 8 (3-11) BUN 29 H (6-23) mg/dl Creatinine 1.20 (0.6-1.4) mg/dl Est Cr Clr Drug Dosing 4.2 ml/min eGFR 61.52 BUN/Creatinine Ratio 24.2 H (10-20) Glucose 140 H (70-99(Fasting)) mg/dl Lactate (0.4-2.0) mmol/L Calcium 9.0 (8.6-10.3) mg/dl Magnesium 2.0 (1.7-2.4) mg/dl Total Bilirubin 0.6 (0.2-1.0) mg/dl AST TNP ALT 18 (7-52) U/L Alkaline Phosphatase 52 (34-104) U/L Troponin I High Sens 23.3 H (0-20) pg/ml B-Natriuretic Peptide 816 H (0-100) pg/ml Total Protein 7.0 (6.0-8.3) gm/dl Albumin 3.6 (3.4-5.0) gm/dl Globulin 3.4 (2.5-4.0) gm/dl Albumin/Globulin Ratio 1.1 (0.9-2) Procalcitonin (0-0.5) ng/ml Urine Color Yellow Urine Appearance Cloudy A (Clear) Urine pH 6.0 (4.5-7.5) Ur Specific [place] 1.016 (1.000-1.030) Urine Protein 1+ H (Negative) Urine Glucose (UA) Negative (Negative) Urine Ketones Negative (Negative) Urine Blood Negative (Negative) Urine Nitrite Positive A (Negative) Urine Bilirubin Negative (Negative) Urine Urobilinogen Negative (Negative) Ur Leukocyte Esterase 2+ H (Negative) Urine WBC (Auto) >50 H (0-5) /hpf Urine RBC (Auto) 3-5 H (0-2) /hpf U Hyaline Cast (Auto) 0-2 (0-2) /lpf U Epithel Cells (Auto) 0-2 (0-2) /hpf Urine Bacteria (Auto) 4+ H (None Seen) Adenovirus (PCR) Not Detected (NotDetected) B. pertussis DNA (PCR) Not Detected (NotDetected) B.parapertussis DNA PCR Not Detected (NotDetected) C. pneumoniae DNA (PCR) Not Detected (NotDetected) Coronavirus OC43 (PCR) Not Detected (NotDetected) Coronavirus HKU1 (PCR) Not Detected (NotDetected) Coronavirus 229E (PCR) Not Detected (NotDetected) SARS-CoV-2 (PCR) Not Detected (NotDetected) Coronavirus NL63 (PCR) Not Detected (NotDetected) Human Metapneumovir PCR Not Detected (NotDetected) Influenza Type A (PCR) Not Detected (NotDetected) Influenza Type B (PCR) Not Detected (NotDetected) M. pneumoniae (PCR) Not Detected (NotDetected) Parainfluenza 1 (PCR) Not Detected (NotDetected) Parainfluenza 2 (PCR) Not Detected (NotDetected) Parainfluenza 3 (PCR) Not Detected (NotDetected) Parainfluenza 4 (PCR) Not Detected (NotDetected) RSV (PCR) Not Detected (NotDetected) Entero/Rhino (PCR) Not Detected (NotDetected) 07/02/24 Range/Units 19:37 WBC (4.8-10.8) K/ul RBC (4.70-6.10) M/uL Hgb (14.0-18.0) g/dl Hct (42.0-52.0) % MCV (80.0-100.0) fL MCH (25.0-34.0) pg MCHC (32.0-36.0) g/dL RDW Std Deviation (36.4-46.3) fL RDW Coeff of Jerry (11.5-14.5) % Plt Count (130-400) K/uL MPV (9.4-12.4) fL Immature Gran % (Auto) % Neut % (Auto) % Lymph % (Auto) % Stephens % (Auto) % Eos % (Auto) % Baso % (Auto) % Neut # (Auto) (1.40-6.50) K/uL Lymph # (Auto) (1.20-3.40) K/uL Stephens # (Auto) (0.11-0.59) K/uL Eos # (Auto) (0.00-0.50) K/uL Baso # (Auto) (0.00-0.20) K/uL Immature Gran # (Auto) (0.01-0.20) K/uL Absolute Nucleated RBC (0.00-0.12) K/uL Nucleated RBC % (auto) % PT (9.0-12.0) Seconds INR (0.9-1.1) VBG pH (7.36-7.41) VBG pCO2 (38-50) mmHg VBG pO2 mmHg VBG HCO3 mmol/L VBG O2 Saturation % VBG Base Excess mEq/L Sodium (136-145) mmol/L Potassium 4.4 Chloride (98-107) mmol/L Carbon Dioxide (21-32) mmol/L Anion Gap (3-11) BUN (6-23) mg/dl Creatinine (0.6-1.4) mg/dl Est Cr Clr Drug Dosing ml/min eGFR BUN/Creatinine Ratio (10-20) Glucose (70-99(Fasting)) mg/dl Lactate 1.8 (0.4-2.0) mmol/L Calcium (8.6-10.3) mg/dl Magnesium (1.7-2.4) mg/dl Total Bilirubin (0.2-1.0) mg/dl AST 16 ALT (7-52) U/L Alkaline Phosphatase (34-104) U/L Troponin I High Sens (0-20) pg/ml B-Natriuretic Peptide (0-100) pg/ml Total Protein (6.0-8.3) gm/dl Albumin (3.4-5.0) gm/dl Globulin (2.5-4.0) gm/dl Albumin/Globulin Ratio (0.9-2) Procalcitonin 0.71 H (0-0.5) ng/ml Urine Color Urine Appearance (Clear) Urine pH (4.5-7.5) Ur Specific [place] (1.000-1.030) Urine Protein (Negative) Urine Glucose (UA) (Negative) Urine Ketones (Negative) Urine Blood (Negative) Urine Nitrite (Negative) Urine Bilirubin (Negative) Urine Urobilinogen (Negative) Ur Leukocyte Esterase (Negative) Urine WBC (Auto) (0-5) /hpf Urine RBC (Auto) (0-2) /hpf U Hyaline Cast (Auto) (0-2) /lpf U Epithel Cells (Auto) (0-2) /hpf Urine Bacteria (Auto) (None Seen) Adenovirus (PCR) (NotDetected) B. pertussis DNA (PCR) (NotDetected) B.parapertussis DNA PCR (NotDetected) C. pneumoniae DNA (PCR) (NotDetected) Coronavirus OC43 (PCR) (NotDetected) Coronavirus HKU1 (PCR) (NotDetected) Coronavirus 229E (PCR) (NotDetected) SARS-CoV-2 (PCR) (NotDetected) Coronavirus NL63 (PCR) (NotDetected) Human Metapneumovir PCR (NotDetected) Influenza Type A (PCR) (NotDetected) Influenza Type B (PCR) (NotDetected) M. pneumoniae (PCR) (NotDetected) Parainfluenza 1 (PCR) (NotDetected) Parainfluenza 2 (PCR) (NotDetected) Parainfluenza 3 (PCR) (NotDetected) Parainfluenza 4 (PCR) (NotDetected) RSV (PCR) (NotDetected) Entero/Rhino (PCR) (NotDetected) Administered Medications Discontinued Medications Fentanyl Citrate (Fentanyl Citrate Pf 100 Mcg/2 Ml Vial) 50 mcg IV NOW STA Stop: 07/02/24 20:02 Last Admin: 07/02/24 20:20 Dose: 50 mcg Documented By: QGV Bumetanide 1 mg/ Syringe 4 mls @ 4 mls/min IV ONE ONE Stop: 07/02/24 19:31 Last Admin: 07/02/24 20:14 Dose: 4 mls/min Documented By: QGV Cefepime HCl (Maxipime 2000mg) 2,000 mg in 20 mls @ 5 mls/min IV NOW STA; Protocol Stop: 07/02/24 19:40 Last Admin: 07/02/24 19:50 Dose: 5 mls/min Documented By: QGV Imaging Data Radiologist's Impression: Chest X-Ray 07/02/24 18:35 EXAM: Radiograph of the Chest 1 View INDICATION: Dyspnea TECHNIQUE: Frontal view of the chest. COMPARISON: 06/17/2024 FINDINGS: Lungs and pleural spaces: There is stable airspace consolidation in both lung bases left greater than right and small left pleural effusion. No pneumothorax. Heart: Stable enlargement and pacing device. Mediastinum: Normal contour. Bones/joints: No fracture, erosion or dislocation. Soft tissues: No abnormality noted. No radiopaque foreign body noted. Upper abdomen: No abnormality noted. IMPRESSION: There is stable airspace consolidation in both lung bases left greater than right and small left pleural effusion. ACT 112: N/A Electronically signed by Catherine Arreguin 07-02-2024 7:27 PM Discharge Plan Visit Data Chief Complaint: Respiratory Distress Stated Complaint: RESPIRATORY DISTRESS ED Provider: Darren Mata Discharge Problem: Breathlessness, Acute UTI, Fluid overload Patient Disposition: Being Evaluated by Hospitalist Forms Stand Alone Forms: My [facility] Prescriptions Prescriptions: No Action bumetanide 1 mg tablet 1 mg PO QAM Qty: 90 3RF potassium chloride 20 mEq tablet extended release 20 meq PO BID Qty: 200 3RF sacubitril-valsartan 49-51 mg tablet 1 tab PO AMPM Hold Instructions: hold until you see your outpatient doctors cetirizine 10 mg tablet 10 mg PO QDB carvedilol 25 mg tablet 0 mg PO BID Rx Instructions: Last filled 02/18/24 x90 day supply. Original Directions: 25mg po bid bupropion HCl 100 mg tablet 100 mg PO BID Rx Instructions: TAKE THIS MEDICATION EVERY MORNING AND AT NOON albuterol sulfate 90 mcg/actuation HFA aerosol inhaler 2 puffs inhalation Q6H PRN (Reason: Shortness Of Breath Or Wheezing) docusate sodium 100 mg capsule 100 mg PO BID Hold Instructions: Resume on 06/27/24. finasteride 5 mg tablet 5 mg PO QAM pantoprazole 40 mg tablet,delayed release (DR/EC) 40 mg PO BID Eliquis 5 mg tablet 5 mg PO BID Qty: 180 3RF PreserVision AREDS 4,296 mcg-226 mg-90 mg capsule 1 cap PO BID aspirin 81 mg Tablet,Delayed Release (Dr/Ec) 81 mg PO QAM sennosides 8.6 mg Tablet 8.6 mg PO BID Hold Instructions: Resume on 06/27/24. Refresh Lacri-Lube 56.8-42.5 % Ointment 1 applic OPHTHALMIC (EYE) HS Rx Instructions: 1/8th INCH IN EACH EYE Stiolto Respimat 2.5-2.5 mcg/actuation Mist 2 puff INHALATION QAM epinephrine 0.3 mg/0.3 mL Auto-Injector 0.3 mg IM DIRECTED PRN (Reason: sEVERE ALLERGIC REACTION) nystatin 100,000 unit/gram Ointment 1 applic TOPICAL BID PRN (Reason: Jenny skin infection) ondansetron HCl 8 mg Tablet 4 mg PO Q8H PRN (Reason: Nausea And Vomiting) aluminum hydroxide gel 320 mg/5 mL Suspension 960 mg PO DAILY PRN (Reason: Heartburn) rosuvastatin 20 mg Tablet 10 mg PO DAILY pramipexole 0.375 mg tablet extended release 24 hr 0 mg PO QAM Rx Instructions: Last filled 12/2023 x90 day supply. Original Directions: 0.375mg by mouth daily oxycodone [OxyContin] 10 mg Tablet,Oral Only,Ext.Rel.12 Hr 10 mg PO BID cholecalciferol (vitamin D3) [Vitamin D3] 10 mcg (400 unit) Tablet 10 mcg PO QAM Qty: 30 0RF nystatin 100,000 unit/gram Powder 1 applic TOPICAL TID Qty: 15 1RF Rx Instructions: apply to rash in groin for 7 days then stop Referrals Referrals: Tramaine Peterson MD [Primary Care Provider] -
[2024-07-02 18:59] LABS: Base Excess VBG -1.1 mEq/L; HCO3 VBG 23 mmol/L; Oxygen Saturation VBG 67.4 %; PCO2 VBG 34 mmHg (38-50); PO2 VBG 38 mmHg; pH VBG 7.43 (7.36-7.41)
[2024-07-02 19:07] LABS: Basophils # (auto) 0.04 K/uL (0.00-0.20); Basophils % (auto) 0.2 %; Eosinophils # (auto) 0.08 K/uL (0.00-0.50); Eosinophils % (auto) 0.5 %; Hematocrit (blood only) 34.2 % (42.0-52.0); Hemoglobin 11.2 g/dl (14.0-18.0); Immature Granulocytes # (auto) 0.14 K/uL (0.01-0.20); Immature Granulocytes % (auto) 0.8 %; Lymphocytes # (auto) 1.34 K/uL (1.20-3.40); Lymphocytes % (auto) 7.8 %; Mean Corpuscular Hemoglobin 29.3 pg (25.0-34.0); Mean Corpuscular Hgb Conc 32.7 g/dL (32.0-36.0); Mean Corpuscular Volume 89.5 fL (80.0-100.0); Mean Platelet Volume 10.5 fL (9.4-12.4); Monocytes # (auto) 0.85 K/uL (0.11-0.59); Monocytes % (auto) 4.9 %; Neutrophils # (auto) 14.78 K/uL (1.40-6.50); Neutrophils % (auto) 85.8 %; Nucleated RBC # (auto) 0.02 K/uL (0.00-0.12); Nucleated RBC % (auto) 0.1 %; Platelet Count 313 K/uL (130-400); RDW Coefficient of Variation 14.9 % (11.5-14.5); RDW Standard Deviation 47.8 fL (36.4-46.3); Red Blood Count 3.82 M/uL (4.70-6.10); White Blood Count 17.23 K/ul (4.8-10.8)
[2024-07-02 19:21] LABS: Alanine Aminotransferase 18 U/L (7-52); Albumin Globulin Ratio 1.1 (0.9-2); Albumin Level 3.6 gm/dl (3.4-5.0); Alkaline Phosphatase 52 U/L (34-104); Anion Gap 8 (3-11); BUN Creatinine Ratio 24.2 (10-20); Bilirubin,Total 0.6 mg/dl (0.2-1.0); Blood Urea Nitrogen 29 mg/dl (6-23); Carbon Dioxide 24 mmol/L (21-32); Chloride 103 mmol/L (98-107); Creatinine Clr Calc Pharmacy 4.2 ml/min; Globulin 3.4 gm/dl (2.5-4.0); Glucose 140 mg/dl (70-99(Fasting)); Sodium 135 mmol/L (136-145)
[2024-07-02 19:28] LABS: Troponin I High Sensitivity 23.3 pg/ml (0-20)
--- NOTE | 2024-07-02 19:28 | XRay Report ---
EXAM: Radiograph of the Chest 1 View INDICATION: Dyspnea TECHNIQUE: Frontal view of the chest. COMPARISON: 06/17/2024 FINDINGS: Lungs and pleural spaces: There is stable airspace consolidation in both lung bases left greater than right and small left pleural effusion. No pneumothorax. Heart: Stable enlargement and pacing device. Mediastinum: Normal contour. Bones/joints: No fracture, erosion or dislocation. Soft tissues: No abnormality noted. No radiopaque foreign body noted. Upper abdomen: No abnormality noted. IMPRESSION: There is stable airspace consolidation in both lung bases left greater than right and small left pleural effusion. ACT 112: N/A Electronically signed by Catherine Arreguin 07-02-2024 7:27 PM
[2024-07-02 19:30] LABS: INR 1.3 (0.9-1.1); Prothrombin Time 13.5 Seconds (9.0-12.0)
[2024-07-02 19:30] LABS: Appearance Urine Cloudy (Clear); Bacteria Urine Automated 4+ (None Seen); Bilirubin Urine Negative (Negative); Blood Urine Negative (Negative); Cast Urine Automated 0-2 /lpf (0-2); Color Urine Yellow; Epithelial Cell Urine Auto 0-2 /hpf (0-2); Glucose Urine UA Negative (Negative); Ketones Urine Negative (Negative); Leukocyte Esterase Urine 2+ (Negative); Nitrite Urine Positive (Negative); Protein Urine 1+ (Negative); Specific Gravity Urine 1.016 (1.000-1.030); Urobilinogen Urine Negative (Negative); WBC Urine Automated >50 /hpf (0-5)
[2024-07-02 19:47] LABS: Adenovirus PCR Not Detected (NotDetected); Bordetella parapertussis PCR Not Detected (NotDetected); Bordetella pertussis PCR Not Detected (NotDetected); Chlamydia pneumoniae PCR Not Detected (NotDetected); Coronavirus 229E PCR Not Detected (NotDetected); Coronavirus CoV-2 (COVID19)PCR Not Detected (NotDetected); Coronavirus HKU1 PCR Not Detected (NotDetected); Coronavirus NL63 PCR Not Detected (NotDetected); Coronavirus OC43PCR Not Detected (NotDetected); Human Metapneumovirus PCR Not Detected (NotDetected); Influenza A PCR Not Detected (NotDetected); Influenza B PCR Not Detected (NotDetected); Mycoplasma pneumoniae PCR Not Detected (NotDetected); Parainfluenza Virus 1 PCR Not Detected (NotDetected); Parainfluenza Virus 2 PCR Not Detected (NotDetected); Parainfluenza Virus 3 PCR Not Detected (NotDetected); Parainfluenza Virus 4 PCR Not Detected (NotDetected); Respiratory Syncytial VirusPCR Not Detected (NotDetected); Rhinovirus/Enterovirus PCR Not Detected (NotDetected)
[2024-07-02] MEDS: CEFEPIME 2000MG 2,000 MG/20 ML SYR IV STA (19:50)
[2024-07-02] MEDS: BUMETANIDE 1 MG in SYRINGE 0 ML IV ONE (20:14)
[2024-07-02] MEDS: fentaNYL citrate PF 100 MCG/2 ML VIAL IV STA (20:20)
[2024-07-02 20:28] LABS: Potassium 4.4 mmol/L (3.5-5.1)
--- NOTE | 2024-07-02 20:32 | History & Physical Report ---
Date of Service July 02, 2024 History of Present Illness Chief Complaint: The patient presents to the emergency department with complaint of progressively worsening increased frequency to urinate and smaller volumes over the past since his Kingston catheter was removed 3 days ago. He also notes being more short of breath, and generally fatigued, with decreased oral intake due to decreased appetite, and his shortness of breath. EMS was called to his home, when he had more difficulty breathing, and was noted to have a pulse ox in the low 80s upon their arrival. He was transition from 2 L of oxygen to CPAP, with improvement in symptoms, and ultimately was able to be transitioned back to nasal cannula oxygen. He did have a Kingston catheter replaced while in the ED, and urinalysis appeared significantly infected. The patient was then referred for evaluation for admission to the [facility] service Primary Care Provider: Tramaine Peterson MD The patient is a 79-year-old male with a past medical history including catheter associated urinary tract infection, history of closed head injury, CAD, ROSE, presence of ICD and pacemaker, paroxysmal atrial fibrillation, HFrEF with ejection fraction 25-30%, long-term anticoagulant use, cardiomyopathy, parkinsonism, centrilobular emphysema, idiopathic peripheral neuropathy, BPH with LUTS, and atherogenic dyslipidemia.The patient presents to the emergency department with complaint of progressively worsening increased frequency to urinate and smaller volumes over the past since his Kingston catheter was removed 3 days ago. He also notes being more short of breath, and generally fatigued, with decreased oral intake due to decreased appetite, and his shortness of breath. EMS was called to his home, when he had more difficulty breathing, and was noted to have a pulse ox in the low 80s upon their arrival. He was transition from 2 L of oxygen to CPAP, with improvement in symptoms, and ultimately was able to be transitioned back to nasal cannula oxygen. He did have a Kingston catheter replaced while in the ED, and urinalysis appeared significantly infected. The patient was then referred for evaluation for admission to the [facility] service. From the emergency department patient received bumetanide 1 mg IV, and cefepime 2 g IV. #Catheter associated urinary tract infection/BPH with LUTS- Most recent culture from 06/05/2024 showed pansensitive Klebsiella pneumoniae Follow urine culture and sensitivity Continue empiric cefepime 2 g IV every 12 hours Continue Kingston catheter Continue finasteride #Elevated troponin/CAD/ICD/PAF/HFrEF 25-30%/cardiomyopathy- Small pleural effusion noted on left chest x-ray, was initially concerning for fluid overload. However, patient after receiving bumetanide 1 mg IV, he did become relatively hypotensive with blood pressure decreased to 90/60 Will temporarily hold bumetanide and Entresto Reduce carvedilol from 25 mg twice daily to 12.5 mg twice daily with hold parameters Continue apixaban, aspirin Give gentle IV fluids, NSS at 60 mL/h x 500 mL, and continue to follow on telemetry Most recent echocardiogram on 06/17/2024 with ejection fraction 25-30% #Hypoxia- Patient initially required CPAP for improve oxygenation, however, this was likely secondary to work of breathing associated with urinary tract infection and decreased oral intake. Patient presently with oxygenation improved on nasal cannula Continue Stiolto Respimat and routine inhalers Chronic medical conditions: Hyperlipidemia-continue rosuvastatin Parkinsonism-continue pramipexole Chronic pain syndrome continue OxyContin Ambulatory dysfunction/progressive generalized weakness- Presently is undergoing physical therapy/Occupational Therapy at home, and will need to continue upon discharge Allergies Allergy/AdvReac Type Severity Reaction Status Date / Time bee venom protein (honey bee) Allergy Severe SWELLING, Verified 06/16/24 10:50 SOB Penicillins Allergy Severe SWELLING, Verified 06/16/24 10:50 DIFFICULTY BREATHING lidocaine Allergy Mild RASH Verified 04/14/24 08:21 gabapentin Allergy Unknown On med Unverified 06/16/24 10:50 [facility]/ [facility] Pharmacy icosapent ethyl Allergy Unknown On med Unverified 06/16/24 10:50 [facility]/ [facility] Pharmacy pregabalin Allergy Unknown On med Unverified 06/16/24 10:50 [facility]/ [facility] Pharmacy cefdinir AdvReac Severe Vomiting Verified 06/16/24 10:50 hydrocodone AdvReac Mild nausea Verified 06/16/24 10:50 oxycodone AdvReac Mild nausea-SLOW Verified 06/16/24 10:50 RELEASE IS OK Home Medications Medication Instructions Recorded Confirmed Type albuterol sulfate 90 mcg/actuation 2 puffs inhalation Q6H PRN 12/01/18 07/02/24 History aerosol inhaler Shortness Of Breath Or Wheezing bupropion HCl 100 mg tablet 100 mg PO BID 12/01/18 07/02/24 History docusate sodium 100 mg capsule 100 mg PO BID 12/01/18 07/02/24 History finasteride 5 mg tablet 5 mg PO QAM 12/01/18 07/02/24 History aspirin 81 mg tablet,delayed 81 mg PO QAM 12/21/18 07/02/24 History release sennosides 8.6 mg tablet 8.6 mg PO BID 12/21/18 07/02/24 History white petrolatum-mineral oil 56.8 1 applic ophthalmic (eye) HS 12/21/18 07/02/24 History %-42.5 % eye ointment (Refresh Lacri-Lube) sacubitril 49 mg-valsartan 51 mg 1 tab PO AMPM 11/25/20 07/02/24 History tablet pantoprazole 40 mg tablet,delayed 40 mg PO BID 03/10/21 07/02/24 History release tiotropium 2.5 mcg-olodaterol 2.5 2 puff inhalation QAM 12/02/22 07/02/24 History mcg/actuation mist for inhalation (Stiolto Respimat) cetirizine 10 mg tablet 10 mg PO QDB 05/17/23 07/02/24 History epinephrine 0.3 mg/0.3 mL 0.3 mg IM DIRECTED PRN sEVERE 07/08/23 07/02/24 History injection, auto-injector ALLERGIC REACTION bumetanide 1 mg tablet 1 mg PO QAM #90 tabs 10/10/23 07/02/24 Rx potassium chloride 20 mEq 20 meq PO BID #200 tabs 10/10/23 07/02/24 Rx tablet,extended release apixaban 5 mg tablet (Eliquis) 5 mg PO BID #180 tabs 11/23/23 07/02/24 Rx carvedilol 25 mg tablet 25 mg PO BID 03/27/24 07/02/24 History vitamins A,C,R-ejmo-nsxubv 4,296 1 cap PO BID 03/27/24 07/02/24 History mcg-226 mg-90 mg capsule (PreserVision AREDS) aluminum hydroxide gel 320 mg/5 mL 960 mg PO DAILY PRN Heartburn 06/16/24 07/02/24 History oral suspension nystatin 100,000 unit/gram topical 1 applic topical BID PRN Jenny 06/16/24 07/02/24 History ointment skin infection ondansetron HCl 8 mg tablet 4 mg PO Q8H PRN Nausea And Vomiting 06/16/24 07/02/24 History oxycodone 10 mg tablet,crush 10 mg PO BID 06/16/24 07/02/24 History resistant,extended release 12 hr (OxyContin) pramipexole 0.375 mg 0.375 mg PO QAM Parkinsonism 06/16/24 07/02/24 History tablet,extended release 24 hr rosuvastatin 20 mg tablet 10 mg PO DAILY 06/16/24 07/02/24 History cholecalciferol (vitamin D3) 10 10 mcg PO QAM #30 tabs 06/20/24 07/02/24 Rx mcg (400 unit) tablet (Vitamin D3) metoclopramide HCl 5 mg tablet 5 mg BID 07/02/24 07/02/24 History Past Med/Surg History Problem List (Updated 07/02/24 @ 22:52 by Mercedes Gil) Fluid overload (Acute) Acute UTI (Acute) Breathlessness (Acute) COVID-19 (Acute) Norovirus Scalp hematoma SARS-CoV-2 positive Diarrhea Fall (Acute) CHI (closed head injury) (Acute) Hypoxia (Acute) CAD (coronary artery disease) s/p stent 2010 Sleep apnea bipap Presence of combination internal cardiac defibrillator (ICD) and pacemaker first placed [address] [facility] replaced in 2014 & [address] [facility]--biventricular [employer]. reports last check 11/25/22. Paroxysmal atrial fibrillation Abdominal distension Catheter-associated urinary tract infection UTI (urinary tract infection) (Acute) CHF (congestive heart failure) (Acute) Anticoagulant long-term use PAT (paroxysmal atrial tachycardia) Cardiomyopathy Hypotension (Acute) Atrial fibrillation, controlled Parkinsonism Stage III pressure ulcer of buttock (Acute) Centrilobular emphysema Bilateral foot-drop Esophagitis Dysphagia Biliary dyskinesia (Chronic) Idiopathic peripheral neuropathy (Acute) Cervical spondylosis without myelopathy (Acute) Cervical radiculopathy (Acute) Complex renal cyst Ulnar neuropathy of both upper extremities Agent orange exposure Warfarin anticoagulation (Chronic) Balance problem Elevated PSA 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 Cervicogenic headache Spasticity upper limbs Medical History HFrEF (heart failure with reduced ejection fraction) Atrial tachycardia CHF (congestive heart failure) Tachycardia Pressure ulcer of right heel, stage 4 Benign essential hypertension Ischemic cardiomyopathy Euvolemic at 11/23/22 cardio appt Elevated INR Near syncope Tachycardia Leg pain Elevated lactic acid level Elevated INR Cellulitis Unstageable pressure ulcer of right heel Unstageable pressure ulcer of left heel Hypoxia Vomiting Acute kidney injury Elevated troponin Acute kidney failure Acute UTI Sepsis Severe sepsis Encounter for pre-operative examination Intrinsic minus hand POWERS (dyspnea on exertion) Preop testing Episode of confusion Right upper quadrant abdominal pain Hand laceration Dog bite Chest pain Cellulitis of left arm Peripheral arterial disease Hypertension Tremor ICD (implantable cardioverter-defibrillator) in place Neuropathy Complex sleep apnea syndrome NYHA class 4 acute on chronic systolic heart failure History of kidney stones Emphysema lung Legally blind Chronic back pain History of urinary self-catheterization self caths every other night History of DVT of lower extremity 2010 Macular degeneration Hearing deficit Depression Migraine Myocardial Infarction 10/2010--follows with Dr. Abreu Pulmonary embolism 1992 and 2010 after heart attack--follows with Dr. Abreu Asthma inhaler prn Surgical History Presence of biventricular automatic cardioverter/defibrillator (AICD) S/P epidural steroid injection History of foot surgery plantar fasciitis History of open reduction and internal fixation (ORIF) procedure left foot--hardware removed History of prostate biopsy x3--precancerous, just monitoring for now History of prostate surgery 07/2016--[facility] prostate vaproization History of cystoscopy multiple History of colonoscopy with polypectomy History of esophagogastroduodenoscopy (EGD) History of right inguinal hernia repair x3 History of Khari fundoplication History of cholecystectomy History of tooth extraction History of eye surgery right--macular degeneration History of bilateral cataract extraction History of cardiac cath 10/[address] [facility]--1 stent placed Family History Son Family history of diabetes mellitus Other Family history non-contributory No family history of adverse response to anesthesia Social History Smoking Status: Former smoker Tobacco Type: Cigarettes Second Hand Exposure: No; Do You Dip or Chew Tobacco: No; Tobacco Cessation Education Requested by Patient: No Hx Alcohol Use: No Hx Substance Use: No Preferred Language: Japanese Communication Ability: Effective Cable Supervisor Required: No Beliefs That Will Affect Care: None marital status: Current Living Situation: Spouse Current Living Situation Comment: with Araceli current occupational status: retired Other Information That Helps Us Care for You: No Feels Safe at Home: Yes Safety Concerns: Feels Safe At This Time Assistive Devices: Brace/Splint/Immobilizer, CPAP, Lift Chair, Oxygen - at Night, Scooter/Electric Scooter, Special Shoe, Walker and Wheelchair Results & Data Results & Data Vital Signs (Past 12 Hours) Vital Signs Temp Pulse Resp BP Pulse Ox O2 Del Method FiO2 07/02/24 19:55 100 Room Air, CPAP 07/02/24 19:30 83 28 H 118/64 97 07/02/24 19:15 88 32 H 99 CPAP 07/02/24 19:01 86 26 H 123/64 99 07/02/24 18:44 82 31 H 97 40 07/02/24 18:40 95 H 07/02/24 18:38 37.1 C 102 H 23 113/70 95 BiPAP 07/02/24 18:38 CPAP Code Status & VTE Plan VTE Prophylaxis Plan VTE Prophylaxis will be ordered: Yes PG Care Time/CCT Total # of Minutes Spent Total Time Spent with Patient: Total time spent is greater than 50% in coordination of care (as documented) at patient's floor/unit and/or counseling patient: Coding Level of Care Code 60054 INT INP/OBS CARE 3/75MIN
[2024-07-02] MEDS ORDERED: NON-FORMULARY MEDICATION (Vitamins A,C,E-Zinc-Copper [Preservision Areds] 4,296 mcg-226 mg PO SCH (23:08)
[2024-07-02] MEDS ORDERED: ACETAMINOPHEN 325 MG TAB PO PRN (23:08)
[2024-07-02] MEDS ORDERED: ALUMINUM/MAGNESIUM SUSP 30 ML UDC PO PRN (23:14)
[2024-07-03] MEDS: buPROPion HCl 100 MG TABLET PO SCH (00:25)
[2024-07-03] MEDS: DOCUSATE SODIUM 100 MG CAP PO SCH (00:25)
[2024-07-03] MEDS: SENNA 8.6 MG TAB PO SCH (00:25)
[2024-07-03] MEDS: VALSARTAN/SACUBITRIL 51/49 MG TAB PO SCH (00:25)
[2024-07-03] MEDS: PANTOprazole 40 MG TAB PO SCH (00:25)
[2024-07-03] MEDS: APIXABAN 5 MG TABLET PO SCH (00:25)
[2024-07-03] MEDS: oxyCODONE HCL 10 MG TABCR (OxyCONTIN) PO SCH (00:26)
[2024-07-03] MEDS: SODIUM CHLORIDE 0.9% 500 ML IV SCH (04:16)
[2024-07-03 07:02] LABS: Basophils # (auto) 0.04 K/uL (0.00-0.20); Basophils % (auto) 0.3 %; Eosinophils # (auto) 0.16 K/uL (0.00-0.50); Eosinophils % (auto) 1.3 %; Hematocrit (blood only) 29.2 % (42.0-52.0); Hemoglobin 9.6 g/dl (14.0-18.0); Immature Granulocytes # (auto) 0.07 K/uL (0.01-0.20); Immature Granulocytes % (auto) 0.6 %; Lymphocytes # (auto) 1.86 K/uL (1.20-3.40); Lymphocytes % (auto) 14.7 %; Mean Corpuscular Hemoglobin 29.3 pg (25.0-34.0); Mean Corpuscular Hgb Conc 32.9 g/dL (32.0-36.0); Mean Platelet Volume 10.5 fL (9.4-12.4); Monocytes # (auto) 0.95 K/uL (0.11-0.59); Monocytes % (auto) 7.5 %; Neutrophils # (auto) 9.54 K/uL (1.40-6.50); Neutrophils % (auto) 75.6 %; Platelet Count 287 K/uL (130-400); RDW Coefficient of Variation 14.9 % (11.5-14.5); RDW Standard Deviation 48.3 fL (36.4-46.3); Red Blood Count 3.28 M/uL (4.70-6.10); White Blood Count 12.62 K/ul (4.8-10.8)
[2024-07-03 07:22] LABS: Albumin Globulin Ratio 1.1 (0.9-2); Albumin Level 3.2 gm/dl (3.4-5.0); BUN Creatinine Ratio 24.1 (10-20); Bilirubin,Total 0.6 mg/dl (0.2-1.0); Calcium 8.3 mg/dl (8.6-10.3); Creatinine Clr Calc Pharmacy 67.9 ml/min; Potassium 3.7 mmol/L (3.5-5.1); Total Protein 6.2 gm/dl (6.0-8.3)
[2024-07-03 07:35] LABS: Troponin I High Sensitivity 18.4 pg/ml (0-20)
[2024-07-03 07:48] LABS: INR 1.3 (0.9-1.1); Partial Thromboplastin Ratio 1.2; Partial Thromboplastin Time 32 Seconds (21-31); Prothrombin Time 13.4 Seconds (9.0-12.0)
[2024-07-03] MEDS ORDERED: carvediloL 25 MG TAB PO SCH (09:00)
[2024-07-03] MEDS ORDERED: BUMETANIDE 1 MG TAB PO SCH (09:00)
[2024-07-03] MEDS: UMECLIDINIUM/VILANTEROL 62.5/25MCG 7 PUFFS/INHALER INH SCH (09:25)
[2024-07-03] MEDS: ASPIRIN 81 MG ECTAB PO SCH (09:26)
[2024-07-03] MEDS: CETIRIZINE HCL 10 MG TABLET PO SCH (09:26)
[2024-07-03] MEDS: FINASTERIDE 5 MG TAB PO SCH (09:27)
[2024-07-03] MEDS: ROSUVASTATIN CALCIUM 10 MG TAB PO SCH (09:27)
[2024-07-03] MEDS: CHOLECALCIFEROL 10 MCG (400 UNITS) TAB PO SCH (09:27)
[2024-07-03] MEDS: POTASSIUM CHLORIDE CRTAB 20 MEQ TABCR PO SCH (09:28)
[2024-07-03] MEDS: carvediloL 12.5 MG TAB PO SCH (09:37)
[2024-07-03] MEDS: CEFEPIME 2000MG 2,000 MG/20 ML SYR IV SCH (09:48)
--- NOTE | 2024-07-03 09:53 | Hospitalist Progress Note ---
Date of Service July 03, 2024 Assessment & Plan (1) Catheter-associated urinary tract infection: Plan: Most recent culture from 06/05/2024 showed pansensitive Klebsiella pneumoniae Follow urine culture and sensitivity Continue empiric cefepime 2 g IV every 12 hours Continue Kingston catheter Continue finasteride (2) CHF (congestive heart failure): Plan: Small pleural effusion noted on left chest x-ray, was initially concerning for fluid overload. However, patient after receiving bumetanide 1 mg IV, he did become relatively hypotensive with blood pressure decreased to 90/60 Will temporarily hold bumetanide and Entresto Reduce carvedilol from 25 mg twice daily to 12.5 mg twice daily with hold parameters Continue apixaban, aspirin Give gentle IV fluids, NSS at 60 mL/h x 500 mL, and continue to follow on telemetry Most recent echocardiogram on 06/17/2024 with ejection fraction 25-30% Plan Chronic medical conditions: Hyperlipidemia-continue rosuvastatin Parkinsonism-continue pramipexole Chronic pain syndrome continue OxyContin PT/OT evaluation pending Patient lives at home with his . Admission and Anticipated Discharge Date Admission Date: July 02, 2024 Subjective No events overnight, pt resting comfortably in bed. Review of Systems Review of Systems: CONST: Negative for fever, body aches and chills. HENT: Negative for neck pain/stiffness, headache, congestion, sore throat, swelling. EYES: Negative for discharge/pain or vision changes. RESP: Negative for cough/hemoptysis and shortness of breath. CV: Negative chest pain, difficulty breathing, palpitations. ABD: Negative pain, nausea, vomiting. : Negative increase frequency, dysuria, blood in urine or stool. MUSC: Negative for muscle aches, edema. SKIN: Negative rash, lesions/sores. NEURO: Negative headache, dizziness, weakness. Physical Exam Physical Exam: GENERAL APPEARANCE NAD, activity normal for age, well developed/ well nourished, no cyanosis, pallor, or diaphoresis. EYES lids/conjunctiva normal. EARS/NOSE/THROAT Mucous membranes moist, nares no rmal, lips/teeth normal uvula midline without oral pharyngeal erythema, exudate or swelling TMs normal bilaterally. No lymphangitis/lymphedema. HEAD/NECK normocephalic atraumatic, no facial trauma, neck is supple. RESPIRATORY respiratory effort normal, speaks in full sentences, no tripod position, no accessory muscle use. Lungs clear to auscultation without rhonchi, wheezes, rales CARDIAC Regular rate and rhythm, no edema. ABDOMINAL Soft, ND/NT. No evidence of fluid wave. No pulsatile masses on exam, rebound tenderness, Fitch sign or pain over Mcburney's point. MUSCLES/EXTREMITIES No abnormal range of motion, no swelling. SKIN Warm, pink and dry. No rashes, dermatoses, petechiae or lesions. NEUROLOGICAL Speech is clear and appropriate. Normal level of consciousness. Gait and coordination are normal. 5/5 strength in all extremities. PSYCH Normal mood and affect. Judgement/competence is appropriate Results & Data Results & Data Vital Signs (Past 12 Hours) Vital Signs Temp Pulse Pulse Pulse Resp BP Pulse Ox 07/03/24 09:35 93 H 36 H 92/59 L 95 07/03/24 07:00 36.5 C 82 16 99/61 L 96 07/03/24 02:39 36.6 C 83 18 90/58 L 93 07/02/24 23:25 36.9 C 80 20 104/68 94 07/02/24 23:08 07/02/24 23:05 81 07/02/24 23:00 07/02/24 23:00 36.9 C 80 20 104/68 94 07/02/24 22:38 36.9 C 87 22 99/68 L 96 07/02/24 22:25 81 Pulse Ox O2 Del Method O2 Del Method O2 Flow Rate O2 Flow Rate 07/03/24 09:35 Nasal Cannula 2.5 07/03/24 07:00 Nasal Cannula 07/03/24 02:39 Nasal Cannula 2 07/02/24 23:25 Nasal Cannula 2 07/02/24 23:08 96 Nasal Cannula 2 07/02/24 23:05 07/02/24 23:00 Nasal Cannula 2 07/02/24 23:00 Nasal Cannula 2 07/02/24 22:38 Room Air 07/02/24 22:25 PG Care Time/CCT Total # of Minutes Spent Total Time Spent with Patient: Total time spent is greater than 50% in coordination of care (as documented) at patient's floor/unit and/or counseling patient: Coding Level of Care Code 46201 SUB INP/OBS CARE MIN Diagnoses Catheter-associated urinary tract infection T83.511A; N39.0 CHF (congestive heart failure) I50.9 Heart failure chronicity: acute on chronic Heart failure type: unspecified (2) CHF (congestive heart failure) Heart failure chronicity: acute on chronic Heart failure type: unspecified Qualified Code(s): I50.9 - Heart failure, unspecified
[2024-07-03] MEDS: ARTIFICIAL TEARS OP OINT 3.5 GM TUBE OP SCH (20:15)
--- NOTE | 2024-07-04 05:44 | Electrocardiogram Report ---
Test Reason : Blood Pressure : */* mmHG Vent. Rate : 94 BPM Atrial Rate : 94 BPM P-R Int : * ms QRS Dur : 134 ms QT Int : 340 ms P-R-T Axes : 55 -6 268 degrees QTcB Int : 425 ms Ventricular-paced rhythm Abnormal ECG When compared with ECG of 16-Jun-2024 07:20, Atrial pacing is no longer present Confirmed by Marcelino Barkley ([id number]) on 07/04/2024 5:44:02 AM Referred By: REFERRED SELF Confirmed By: Marcelino Barkley
--- NOTE | 2024-07-04 05:45 | Electrocardiogram Report ---
Test Reason : Blood Pressure : */* mmHG Vent. Rate : 87 BPM Atrial Rate : 98 BPM P-R Int : * ms QRS Dur : 136 ms QT Int : 382 ms P-R-T Axes : * 140 -38 degrees QTcB Int : 459 ms AV dual-paced rhythm with occasional ventricular-paced complexes and with frequent supraventricular c omplexes Abnormal ECG When compared with ECG of 02-Jul-2024 18:36, AV dual-paced rhythm has replaced Ventricular-paced rhythm Confirmed by Marcelino Barkley ([id number]) on 07/04/2024 5:44:50 AM Referred By: REFERRED SELF Confirmed By: Marcelino Barkley
[2024-07-04] MEDS: NYSTATIN POWDER 15GM BTL EXT PRN (07:57)
[2024-07-04 08:27] LABS: Basophils # (auto) 0.04 K/uL (0.00-0.20); Basophils % (auto) 0.4 %; Eosinophils # (auto) 0.36 K/uL (0.00-0.50); Eosinophils % (auto) 3.3 %; Hematocrit (blood only) 34.4 % (42.0-52.0); Hemoglobin 11.1 g/dl (14.0-18.0); Immature Granulocytes # (auto) 0.05 K/uL (0.01-0.20); Immature Granulocytes % (auto) 0.5 %; Lymphocytes % (auto) 17.3 %; Mean Corpuscular Hemoglobin 28.9 pg (25.0-34.0); Mean Corpuscular Hgb Conc 32.3 g/dL (32.0-36.0); Mean Corpuscular Volume 89.6 fL (80.0-100.0); Mean Platelet Volume 10.7 fL (9.4-12.4); Monocytes # (auto) 0.78 K/uL (0.11-0.59); Monocytes % (auto) 7.1 %; Neutrophils # (auto) 7.87 K/uL (1.40-6.50); Neutrophils % (auto) 71.4 %; Platelet Count 323 K/uL (130-400); RDW Standard Deviation 48.8 fL (36.4-46.3); Red Blood Count 3.84 M/uL (4.70-6.10)
[2024-07-04 08:38] LABS: Albumin Globulin Ratio 1.1 (0.9-2); Albumin Level 3.6 gm/dl (3.4-5.0); BUN Creatinine Ratio 25.5 (10-20); Bilirubin,Total 0.5 mg/dl (0.2-1.0); Calcium 8.8 mg/dl (8.6-10.3); Creatinine Clr Calc Pharmacy 77.5 ml/min; Globulin 3.2 gm/dl (2.5-4.0); Magnesium 2.1 mg/dl (1.7-2.4); Potassium 4.5 mmol/L (3.5-5.1); Total Protein 6.8 gm/dl (6.0-8.3)
[2024-07-04 08:43] LABS: INR 1.2 (0.9-1.1); Partial Thromboplastin Ratio 1.2; Partial Thromboplastin Time 31 Seconds (21-31); Prothrombin Time 12.6 Seconds (9.0-12.0)
--- NOTE | 2024-07-04 09:00 | Hospitalist Progress Note ---
Date of Service July 04, 2024 Assessment & Plan (1) Catheter-associated urinary tract infection: Plan: Most recent culture from 06/05/2024 showed pansensitive Klebsiella pneumoniae Follow urine culture and sensitivity- + for E.Coli Continue empiric cefepime 2 g IV every 12 hours Continue Kingston catheter Continue finasteride (2) CHF (congestive heart failure): Plan: Small pleural effusion noted on left chest x-ray, was initially concerning for fluid overload. However, patient after receiving bumetanide 1 mg IV, he did become relatively hypotensive with blood pressure decreased to 90/60 Will temporarily hold bumetanide and Entresto Reduce carvedilol from 25 mg twice daily to 12.5 mg twice daily with hold parameters Continue apixaban, aspirin Give gentle IV fluids, NSS at 60 mL/h x 500 mL, and continue to follow on telemetry Most recent echocardiogram on 06/17/2024 with ejection fraction 25-30% -f/u Chest Xray -swallow evaluation Plan Chronic medical conditions: Hyperlipidemia-continue rosuvastatin Parkinsonism-continue pramipexole Chronic pain syndrome continue OxyContin PT/OT evaluation pending Patient lives at home with his . Admission and Anticipated Discharge Date Admission Date: July 02, 2024 Subjective Pt states he had SOB overnight. Review of Systems Review of Systems: CONST: Negative for fever, body aches and chills. HENT: Negative for neck pain/stiffness, headache, congestion, sore throat, swelling. EYES: Negative for discharge/pain or vision changes. RESP: Negative for cough/hemoptysis and shortness of breath. CV: Negative chest pain, difficulty breathing, palpitations. ABD: Negative pain, nausea, vomiting. : Negative increase frequency, dysuria, blood in urine or stool. MUSC: Negative for muscle aches, edema. SKIN: Negative rash, lesions/sores. NEURO: Negative headache, dizziness, weakness. Physical Exam Physical Exam: GENERAL APPEARANCE NAD, activity normal for age, well developed/ well nourished, no cyanosis, pallor, or diaphoresis. EYES lids/conjunctiva normal. EARS/NOSE/THROAT Mucous membranes moist, nares normal, lips/teeth normal uvula midline without oral pharyngeal erythema, exudate or swelling TMs normal bilaterally. No lymphangitis/lymphedema. HEAD/NECK normocephalic atraumatic, no facial trauma, neck is supple. RESPIRATORY respiratory effort normal, speaks in full sentences, no tripod position, no accessory muscle use. Lungs clear to auscultation without rhonchi, wheezes, rales CARDIAC Regular rate and rhythm, no edema. ABDOMINAL Soft, ND/NT. No evidence of fluid wave. No pulsatile masses on exam, rebound tenderness, Fitch sign or pain over Mcburney's point. MUSCLES/EXTREMITIES No abnormal range of motion, no swelling. SKIN Warm, pink and dry. No rashes, dermatoses, petechiae or lesions. NEUROLOGICAL Speech is clear and appropriate. Normal level of consciousness. Gait and coordination are normal. 5/5 strength in all extremities. PSYCH Normal mood and affect. Judgement/competence is appropriate Results & Data Results & Data Vital Signs (Past 12 Hours) Vital Signs Temp Pulse Pulse Pulse Resp BP Pulse Ox 07/04/24 08:09 84 36 H 113/78 94 07/04/24 02:40 36.6 C 90 18 118/78 95 07/04/24 02:04 107 H 27 H 96 07/03/24 23:59 94 H 07/03/24 23:38 07/03/24 23:08 07/03/24 22:58 36.6 C 98 H 18 100/59 L 92 Pulse Ox O2 Del Method O2 Del Method O2 Flow Rate O2 Flow Rate FiO2 07/04/24 08:09 Nasal Cannula 4 07/04/24 02:40 BiPAP 07/04/24 02:04 2 07/03/24 23:59 07/03/24 23:38 Nasal Cannula 2 07/03/24 23:08 94 Nasal Cannula 2 07/03/24 22:58 Nasal Cannula PG Care Time/CCT Total # of Minutes Spent Total Time Spent with Patient: Total time spent is greater than 50% in coordination of care (as documented) at patient's floor/unit and/or counseling patient: Coding Level of Care Code 23280 SUB INP/OBS CARE 2/35MIN Diagnoses Catheter-associated urinary tract infection T83.511A; N39.0 CHF (congestive heart failure) I50.9 Heart failure chronicity: acute on chronic Heart failure type: unspecified (2) CHF (congestive heart failure) Heart failure chronicity: acute on chronic Heart failure type: unspecified Qualified Code(s): I50.9 - Heart failure, unspecified
--- NOTE | 2024-07-04 09:21 | XRay Report ---
XR chest 1V portable CLINICAL HISTORY: SOB COMPARISON STUDY: 07/02/2024 FINDINGS: There are progressive bibasilar airspace opacities right greater than left. Stable findings include left diaphragmatic elevation, small bilateral pleural effusion, and cardiomegaly with pronou nced pulmonary vascular congestion. IMPRESSION: Progressive air space opacities in both lung bases right greater than left. ACT 112: Negative or not required by law. Electronically signed by: Rhonda Sterling M.D. 07/04/2024 9:20 AM
[2024-07-04] MEDS: ONDANSETRON 4 MG OD TAB PO PRN (10:08)
[2024-07-04] MEDS: ONDANSETRON INJ 2 MG/ML 2 ML VIAL IV STA (19:56)
[2024-07-05] MEDS: BUMETANIDE 1 MG TAB PO SCH (08:08)
[2024-07-05] MEDS: FUROSEMIDE 40 MG/4 ML VIAL IV ONE (08:08)
--- NOTE | 2024-07-05 09:23 | Hospitalist Progress Note ---
Date of Service July 05, 2024 Assessment & Plan (1) Catheter-associated urinary tract infection: Plan: Most recent culture from 06/05/2024 showed pansensitive Klebsiella pneumoniae Follow urine culture and sensitivity- + for E.Coli Continue empiric cefepime 2 g IV every 12 hours Continue Kingston catheter Continue finasteride (2) CHF (congestive heart failure): Plan: Small pleural effusion noted on left chest x-ray, was initially concerning for fluid overload. However, patient after receiving bumetanide 1 mg IV, he did become relatively hypotensive with blood pressure decreased to 90/60 Will temporarily hold bumetanide and Entresto Reduce carvedilol from 25 mg twice daily to 12.5 mg twice daily with hold parameters Continue apixaban, aspirin Give gentle IV fluids, NSS at 60 mL/h x 500 mL, and continue to follow on telemetry Most recent echocardiogram on 06/17/2024 with ejection fraction 25-30% -f/u Chest Xray showing pulmonary vascular congestion -swallow evaluation pending -lasix 40 IV given -restart bumex Plan Chronic medical conditions: Hyperlipidemia-continue rosuvastatin Parkinsonism-continue pramipexole Chronic pain syndrome continue OxyContin PT recommending rehab placement Patient lives at home with his . Admission and Anticipated Discharge Date Admission Date: July 02, 2024 Subjective Pt with improved breathing and less SOB this am. Review of Systems Review of Systems: CONST: Negative for fever, body aches and chills. HENT: Negative for neck pain/stiffness, headache, congestion, sore throat, swelling. EYES: Negative for discharge/pain or vision changes. RESP: Negative for cough/hemoptysis and shortness of breath. CV: Negative chest pain, difficulty breathing, palpitations. ABD: Negative pain, nausea, vomiting. : Negative increase frequency, dysuria, blood in urine or stool. MUSC: Negative for muscle aches, edema. SKIN: Negative rash, lesions/sores. NEURO: Negative headache, dizziness, weakness. Physical Exam Physical Exam: GENERAL APPEARANCE NAD, activity normal for age, well developed/ well nourished, no cyanosis, pallor, or diaphoresis. EYES lids/conjunctiva normal. EARS/NOSE/THROAT Mucous membranes moist, nares normal, lips/teeth normal uvula midline without oral pharyngeal erythema, exudate or swelling TMs normal bilaterally. No lymphangitis/lymphedema. HEAD/NECK normocephalic atraumatic, no facial trauma, neck is supple. RESPIRATORY respiratory effort normal, speaks in full sentences, no tripod position, no accessory muscle use. Lungs clear to auscultation without rhonchi, wheezes, rales CARDIAC Regular rate and rhythm, no edema. ABDOMINAL Soft, ND/NT. No evidence of fluid wave. No pulsatile masses on exam, rebound tenderness, Fitch sign or pain over Mcburney's point. MUSCLES/EXTREMITIES No abnormal range of motion, no swelling. SKIN Warm, pink and dry. No rashes, dermatoses, petechiae or lesions. NEUROLOGICAL Speech is clear and appropriate. Normal level of consciousness. Gait and coordination are normal. 5/5 strength in all extremities. PSYCH Normal mood and affect. Judgement/competence is appropriate Results & Data Results & Data Vital Signs (Past 12 Hours) Vital Signs Temp Pulse Pulse Pulse Resp BP Pulse Ox 07/05/24 08:06 36.6 C 83 22 123/74 92 07/05/24 02:21 36.6 C 78 18 110/63 95 07/04/24 23:00 07/04/24 22:59 80 07/04/24 22:32 36.5 C 83 18 104/60 93 07/04/24 22:05 73 26 H 98 O2 Del Method O2 Del Method O2 Flow Rate FiO2 07/05/24 08:06 Room Air 1 07/05/24 02:21 BiPAP 07/04/24 23:00 CPAP 07/04/24 22:59 07/04/24 22:32 BiPAP 07/04/24 22:05 2 PG Care Time/CCT Total # of Minutes Spent Total Time Spent with Patient: Total time spent is greater than 50% in coordination of care (as documented) at patient's floor/unit and/or counseling patient: Coding Level of Care Code 00795 SUB INP/OBS CARE 2/35MIN Diagnoses Catheter-associated urinary tract infection T83.511A; N39.0 CHF (congestive heart failure) I50.9 Heart failure chronicity: acute on chronic Heart failure type: unspecified (2) CHF (congestive heart failure) Heart failure chronicity: acute on chronic Heart failure type: unspecified Qualified Code(s): I50.9 - Heart failure, unspecified
[2024-07-05 09:52] LABS: Basophils # (auto) 0.03 K/uL (0.00-0.20); Basophils % (auto) 0.4 %; Eosinophils # (auto) 0.41 K/uL (0.00-0.50); Eosinophils % (auto) 5.5 %; Hematocrit (blood only) 35.9 % (42.0-52.0); Hemoglobin 11.6 g/dl (14.0-18.0); Immature Granulocytes # (auto) 0.06 K/uL (0.01-0.20); Immature Granulocytes % (auto) 0.8 %; Lymphocytes # (auto) 1.33 K/uL (1.20-3.40); Lymphocytes % (auto) 17.9 %; Mean Corpuscular Hemoglobin 29.3 pg (25.0-34.0); Mean Corpuscular Hgb Conc 32.3 g/dL (32.0-36.0); Mean Corpuscular Volume 90.7 fL (80.0-100.0); Mean Platelet Volume 10.5 fL (9.4-12.4); Monocytes # (auto) 0.49 K/uL (0.11-0.59); Monocytes % (auto) 6.6 %; Neutrophils # (auto) 5.12 K/uL (1.40-6.50); Neutrophils % (auto) 68.8 %; Platelet Count 344 K/uL (130-400); RDW Coefficient of Variation 14.6 % (11.5-14.5); RDW Standard Deviation 48.7 fL (36.4-46.3); Red Blood Count 3.96 M/uL (4.70-6.10); White Blood Count 7.44 K/ul (4.8-10.8)
[2024-07-05 10:08] LABS: Albumin Level 3.6 gm/dl (3.4-5.0); Bilirubin,Total 0.5 mg/dl (0.2-1.0); Calcium 9.2 mg/dl (8.6-10.3); Globulin 3.5 gm/dl (2.5-4.0); Magnesium 2.2 mg/dl (1.7-2.4); Potassium 4.6 mmol/L (3.5-5.1); Total Protein 7.1 gm/dl (6.0-8.3)
[2024-07-05 10:17] LABS: INR 1.2 (0.9-1.1); Partial Thromboplastin Ratio 1.2; Partial Thromboplastin Time 33 Seconds (21-31)
[2024-07-05] MEDS: cefTRIAXone SODIUM 2,000 MG/50 ML BAG IV SCH (20:35)
[2024-07-05 23:17] VITALS: TEMP 97.3
[2024-07-06 07:43] VITALS: BP 110/66; RESP 18
--- NOTE | 2024-07-06 09:53 | Discharge Summary ---
Discharge Summary Date of Service July 06, 2024 Principal Dx & Hospital Course #1 = Principal Diagnosis (1) Catheter-associated urinary tract infection: Most recent culture from 06/05/2024 showed pansensitive Klebsiella pneumoniae Follow urine culture and sensitivity- + for E.Coli Continue empiric cefepime 2 g IV every 12 hours Continue Kingston catheter Continue finasteride (2) CHF (congestive heart failure): Small pleural effusion noted on left chest x-ray, was initially concerning for fluid overload. However, patient after receiving bumetanide 1 mg IV, he did become relatively hypotensive with blood pressure decreased to 90/60 Will temporarily hold bumetanide and Entresto Reduce carvedilol from 25 mg twice daily to 12.5 mg twice daily with hold parameters Continue apixaban, aspirin Give gentle IV fluids, NSS at 60 mL/h x 500 mL, and continue to follow on telemetry Most recent echocardiogram on 06/17/2024 with ejection fraction 25-30% -f/u Chest Xray showing pulmonary vascular congestion -swallow evaluation pending -lasix 40 IV given -restart bumex Plan Chronic medical conditions: Hyperlipidemia-continue rosuvastatin Parkinsonism-continue pramipexole Chronic pain syndrome continue OxyContin PT recommending rehab placement Patient lives at home with his . Admission HPI Per Admitting Provider The patient is a 79-year-old male with a past medical history including catheter associated urinary tract infection, history of closed head injury, CAD, ROSE, presence of ICD and pacemaker, paroxysmal atrial fibrillation, HFrEF with ejection fraction 25-30%, long-term anticoagulant use, cardiomyopathy, parkinsonism, centrilobular emphysema, idiopathic peripheral neuropathy, BPH with LUTS, and atherogenic dyslipidemia.The patient presents to the emergency department with complaint of progressively worsening increased frequency to urinate and smaller volumes over the past since his Kingston catheter was removed 3 days ago. He also notes being more short of breath, and generally fatigued, with decreased oral intake due to decreased appetite, and his shortness of breath. EMS was called to his home, when he had more difficulty breathing, and was noted to have a pulse ox in the low 80s upon their arrival. He was vaughn sition from 2 L of oxygen to CPAP, with improvement in symptoms, and ultimately was able to be transitioned back to nasal cannula oxygen. He did have a Kingston catheter replaced while in the ED, and urinalysis appeared significantly infected. The patient was then referred for evaluation for admission to the [facility] service. From the emergency department patient received bumetanide 1 mg IV, and cefepime 2 g IV. #Catheter associated urinary tract infection/BPH with LUTS- Most recent culture from 06/05/2024 showed pansensitive Klebsiella pneumoniae Follow urine culture and sensitivity Continue empiric cefepime 2 g IV every 12 hours Continue Kingston catheter Continue finasteride #Elevated troponin/CAD/ICD/PAF/HFrEF 25-30%/cardiomyopathy- Small pleural effusion noted on left chest x-ray, was initially concerning for fluid overload. However, patient after receiving bumetanide 1 mg IV, he did become relatively hypotensive with blood pressure decreased to 90/60 Will temporarily hold bumetanide and Entresto Reduce carvedilol from 25 mg twice daily to 12.5 mg twice daily with hold parameters Continue apixaban, aspirin Give gentle IV fluids, NSS at 60 mL/h x 500 mL, and continue to follow on telemetry Most recent echocardiogram on 06/17/2024 with ejection fraction 25-30% #Hypoxia- Patient initially required CPAP for improve oxygenation, however, this was likely secondary to work of breathing associated with urinary tract infection and decreased oral intake. Patient presently with oxygenation improved on nasal cannula Continue Stiolto Respimat and routine inhalers Chronic medical conditions: Hyperlipidemia-continue rosuvastatin Parkinsonism-continue pramipexole Chronic pain syndrome continue OxyContin Ambulatory dysfunction/progressive generalized weakness- Presently is undergoing physical therapy/Occupational Therapy at home, and will need to continue upon discharge Discharge Exam GENERAL APPEARANCE NAD, activity normal for age, well developed/ well nourished, no cyanosis, pallor, or diaphoresis. EYES lids/conjunctiva normal. EARS/NOSE/THROAT Mucous membranes moist, nares normal, lips/teeth normal uvula midline without oral pharyngeal erythema, exudate or swelling TMs normal bilaterally. No lymphangitis/lymphedema. HEAD/NECK normocephalic atraumatic, no facial trauma, neck is supple. RESPIRATORY respiratory effort normal, speaks in full sentences, no tripod position, no accessory muscle use. Lungs clear to auscultation without rhonchi, wheezes, rales CARDIAC Regular rate and rhythm, no edema. ABDOMINAL Soft, ND/NT. No evidence of fluid wave. No pulsatile masses on exam, rebound tenderness, Fitch sign or pain over Mcburney's point. MUSCLES/EXTREMITIES No abnormal range of motion, no swelling. SKIN Warm, pink and dry. No rashes, dermatoses, petechiae or lesions. NEUROLOGICAL Speech is clear and appropriate. Normal level of consciousness. Gait and coordination are normal. 5/5 strength in all extremities. PSYCH Normal mood and affect. Judgement/competence is appropriate Discharge Plan Discharge Items Patient Disposition: Home - Self-Care Reason For Visit: UTI, FLUID OVERLOAD, HYPOXIA Discharge Diagnosis: UTI, Fluid Overload Activity: Resume your previous activity Non-emergency contact: Primary Care Provider Follow-up/Referrals: Tramaine Peterson MD [Primary Care Provider] - Diet: Regular Addtl Attending Provider Instructions: Follow up with PMD in 1 week Pending Studies at Discharge: No Stand-Alone Forms: My vidIQ, Smoking Cessation Medications and DC Order Prescriptions: New cefpodoxime 200 mg tablet 400 mg PO BID 5 Days Qty: 20 0RF Rx Instructions: must administer with a meal/food Continued bumetanide 1 mg tablet 1 mg PO QAM Qty: 90 3RF potassium chloride 20 mEq tablet extended release 20 meq PO BID Qty: 200 3RF sacubitril-valsartan 49-51 mg tablet 1 tab PO AMPM Hold Instructions: hold until you see your outpatient doctors cetirizine 10 mg tablet 10 mg PO QDB carvedilol 25 mg tablet 25 mg PO BID Rx Instructions: Last filled 02/18/24 x90 day supply. Original Directions: 25mg po bid bupropion HCl 100 mg tablet 100 mg PO BID Rx Instructions: TAKE THIS MEDICATION EVERY MORNING AND AT NOON albuterol sulfate 90 mcg/actuation HFA aerosol inhaler 2 puffs inhalation Q6H PRN (Reason: Shortness Of Breath Or Wheezing) docusate sodium 100 mg capsule 100 mg PO BID Hold Instructions: Resume on 06/27/24. finasteride 5 mg tablet 5 mg PO QAM pantoprazole 40 mg tablet,delayed release (DR/EC) 40 mg PO BID Eliquis 5 mg tablet 5 mg PO BID Qty: 180 3RF PreserVision AREDS 4,296 mcg-226 mg-90 mg capsule 1 cap PO BID aspirin 81 mg Tablet,Delayed Release (Dr/Ec) 81 mg PO QAM sennosides 8.6 mg Tablet 8.6 mg PO BID Hold Instructions: Resume on 06/27/24. Refresh Lacri-Lube 56.8-42.5 % Ointment 1 applic OPHTHALMIC (EYE) HS Rx Instructions: 1/8th INCH IN EACH EYE Stiolto Respimat 2.5-2.5 mcg/actuation Mist 2 puff INHALATION QAM epinephrine 0.3 mg/0.3 mL Auto-Injector 0.3 mg IM DIRECTED PRN (Reason: sEVERE ALLERGIC REACTION) nystatin 100,000 unit/gram Ointment 1 applic TOPICAL BID PRN (Reason: Jenny skin infection) ondansetron HCl 8 mg Tablet 4 mg PO Q8H PRN (Reason: Nausea And Vomiting) aluminum hydroxide gel 320 mg/5 mL Suspension 960 mg PO DAILY PRN (Reason: Heartburn) rosuvastatin 20 mg Tablet 10 mg PO DAILY pramipexole 0.375 mg tablet extended release 24 hr 0.375 mg PO QAM Rx Instructions: Last filled 12/2023 x90 day supply. Original Directions: 0.375mg by mouth daily oxycodone [OxyContin] 10 mg Tablet,Oral Only,Ext.Rel.12 Hr 10 mg PO BID cholecalciferol (vitamin D3) [Vitamin D3] 10 mcg (400 unit) Tablet 10 mcg PO QAM Qty: 30 0RF metoclopramide HCl 5 mg Tablet 5 mg BID Discharge Orders: Discharge Order (Routine); Ordered 07/06/24 Ordered By: Bandar Farley Admission Data Admit Date/Time: 07/02/24 20:23 Attending Provider: Bandar Farley Admit Provider: Dimitrios Calix Primary Care Provider: Tramaine Peterson Other Providers: Dimitrios Calix Hospital Stay Data Consultations 07/02/24 19:51 ED Decision to Admit Stat Diagnostic Imagining Performed 07/06/24 09:30 FL video swallow Routine Pending Results Patient Have Any Pending Studies at Discharge: No Discharge Instructions Given to Patient (Per Discharging Provider) Follow up with PMD in 1 week Total Time Total Time Spent Total Time Spent (In Minutes): 50 Coding Level of Care Code 63592 INP/OBS DISCH >30 MIN Diagnoses Catheter-associated urinary tract infection T83.511A; N39.0 CHF (congestive heart failure) I50.9 Heart failure chronicity: acute on chronic Heart failure type: unspecified
--- NOTE | 2024-07-06 11:13 | Fluoroscopy Report ---
FL video swallow CLINICAL HISTORY: r/o aspiration COMPARISON STUDY: None TECHNIQUE: Modified barium swallow was performed in conjunction with speech pathology. Various consis tencies of barium were administered and examination was observed fluoroscopically and rapid sequence filming was employed. FINDINGS: There is some pooling of contrast material in the pharynx. There was laryngeal penetration with thin liquids x1. No aspiration was observed. There is a small, nonobstructive anterior pharyngea l web. IMPRESSION: Laryngeal penetration x1. No aspiration observed. ACT 112: Negative or not required by law. Electronically signed by: Rhonda Sterling M.D. 07/06/2024 11:12 AM
[2024-07-06 11:38] VITALS: O2SAT 91
[2024-07-06 13:33] VITALS: PULSE 88
== END 2024-07-06 13:39 | disposition home or self-care (01) | DRG 698 ==
LOC: ED 18:30 → SUATTDRO 20:23 → 2S 20:23

== ENCOUNTER 2024-07-23 01:38 | Inpatient (IN) ==
--- OUTSIDE RECORDS SUMMARY | 2024-07-23 01:45 | External Medical Summary | Continuity of Care Document ---
Author Name Unknown Organization [facility] [id number] [address] [place] [id number] Care Team Providers Care Incising Machine Operator Name Role Phone Tramaine Peterson Primary Care Physician [phone] Encounter [facility] [id number] Date(s): 07/13/24 - 07/13/[address] [address] [phone] Encounter Diagnosis Catheter-associated urinary tract infection(Discharge Diagnosis) - 07/13/24 Heart failure with reduced ejection fraction(Discharge Diagnosis) - 07/13/24 Discharge Disposition: Home or Self Care Attending [...] Date: 01/29/15 Status: Ordered Repeat number: 1 cefpodoxime 200 mg oral tablet Start: 07/07/24 10:21:00 AM EDT, 2 tab, PO, ONCE Start Date: 07/07/24 Status: Ordered Repeat number: 1 cetirizine Start: [...] for [facility] [phone], Brand Medically Necessary Start Date: 08/02/12 Status: Ordered Quantity: 60.0 Unit: tab Repeat number: 2 Potassium Chloride (Zun-[id number]-Ghn M20) Start: 05/30/24 9:00:00 AM EST, 20 [...] 1 senna 8.6 mg oral tablet Start: 4/26/12 9:07:00 AM EDT, 1 tab, PO, bid, PRN: as needed for constipation Start Date: 08/20/11 Status: Ordered Repeat number: 1 Stiolto Respimat 10 ACT 2.5 mcg-2.5 mcg/inh inhalation aerosol Start: 05/30/24 9:03:00 AM EST, 2 inh, inhaled, Daily Start Date: 05/30/24 Status: Ordered Repeat number: 1 Mental Status 07/13/24 Barriers to Learning one year None evide nt Mandatory Health Literacy Documentation Yes Health Literacy Communication Barriers N ever Primary Language Lao Problem List Condition Confirmation Course Effective Dates Status Health Status Informant Gait disturbance Confirmed 05/28/23 Active Allergic rhinitis Confirmed 05/28/23 Active Unspecified atrial fibrillation Confirmed 11/04/23 Active Atrial tachycardia Confirmed Active BPH (benign prostatic hyperplasia) Confirmed 05/28/23 Active Joint pain in fingers of both hands Confirmed 05/28/23 Active Obesity (BMI 30-39.9) Confirmed Active CAD (coronary artery disease) Confirmed Active Cardiomegaly Confirmed Active Chronic orthostatic hypotension Confirmed Active Presence of combination internal cardiac defibrillator (ICD) and pacemaker Confirmed 05/28/23 Active Constipation Confirmed 05/28/23 Active COPD Confirmed Active DEPRESSION Confirmed Active DiverticulOSIS Confirmed Active Edema Confirmed 05/28/23 Active Ejection fraction < 50% Confirmed Active Essential tremor Confirmed 05/28/23 Active GERD Confirmed Active Special needs due to hearing impairment of both ears Confirmed 05/28/23 Active History of colonic polyps 1 Confirmed Active History of smoking Confirmed Active HTN - Hypertension Confirmed Active Secondary hypercoagulable state Confirmed 05/28/23 Active Hyperlipidemia Confirmed Active Heart disease, hypertensive, with heart failure Confirmed 05/28/23 Active Ischemic cardiomyopathy Confirmed Active MACULAR DEGENERATION (SENILE) OF RETINA, UNSPECIFIED Confirmed Active [place] - Silent myocardial infarction Confirmed Active ROSE - Obstructive sleep apnea Confirmed 11/04/23 Active Parkinson disease Confirmed Active Peripheral neuropathy Confirmed Active Peripheral vascular disease Confirmed 05/28/23 Active PTSD (post-traumatic stress disorder) Confirmed 05/28/23 Active Emphysema lung Confirmed 05/28/23 Active Urinary retention Confirmed Active Secondary hyperaldosteronism Confirmed 05/28/23 Active Systolic CHF, chronic Confirmed Active 1Total removed previously: 03-07 including 5 removed at 08-01-2012 [facility]. None were cancerous, few were"pre-cancerous" Diagnosis Diagnosis Type Effective Dates Health Status Cl inical Service Informant Heart failure with reduced ejection fraction Discharge Diagnosis 3/20/25 Non-Specified Catheter-associa delmy urinary tract infection Discharge Diagnosis 07/13/24 Non-Specified Procedures Procedure Date Related Diagnosis Body [...] of chest 11/09/13 Completed colonoscopy 08/11/12 Completed echocardiogram[facility] 08/11/12 Compl eted shoulder 43 08/02/12 [...] 2 in 2003 48Surgery on right foot [id number], 1987 50with polypectomy Vital Signs Most recent to oldest [Reference Range]: 1 Patient Weight 105.8 kg (07/13/24 10:38 AM) Temperature [36.5-37.9 DegC] 36.6 DegC (07/13/24 10:38 AM) Blood Pressure 100/72mmHg (07/13/24 10:38 AM) BP Location # 1 Left Arm (07/13/24 10:38 AM) Social History Social History Type Response [...] Family Med Member Role: Lifetime Relationship [address]: [address] [place] [id number] Telecom: [phone] Name: MD Peterson Christopher Position: Physician - Family Med Member Role: Primary Care Provider Address: [address] [place] [address] Telecom: [phone] Name: FRANNY Perdomo Lynn Position: Physician Mash Tub Cooker Exempt - Vasc Surg Member Role: Lifetime Relationship Address: [address] [place] [address] Telecom: [phone] Care Team Related Persons Name: ALICIA DEUTSCH Name: HUMPHREY DEUTSCH Insurance Providers Guarantor name: ZIGGY DEUTSCH Health Plan Information #: 1 Payer: [employer] Member Number: [id number] Policy Number: DARYL Group Number: [id number] Health Plan Information #: 2 Payer: [employer] Member Number: [id number] Policy Number: NA Group Number: [id number]
--- NOTE | 2024-07-23 01:54 | Emergency Department Note ---
Impression & Plan Sepsis, CHF (congestive heart failure), Hypoxia, Respiratory failure, Acute UTI, Elevated troponin admit to the [facility] ED Provider Note NAME: ZIGGY DEUTSCH AGE: 79 SEX: Male INFORMANT: Patient and EMS ED PROVIDER(S): Britney Martinez DO CHIEF COMPLAINT: shortness of breath PLAN: Disposition: admit to the [facility] MEDICAL DECISION MAKING: this is a 79-year-old male patient with a history of CHF who presents to the emergency department with worsening shortness of breath. Patient developed shortness of breath yesterday around noon time and took an extra diuretic. Breathing continued to worsen throughout the day till tonight he had to call EMS. Upon their arrival, O2 saturation was in the low 80s. They placed him on 15 L of oxygen which brought him up to 88%. Patient was noted to be wheezing and was given a DuoNeb treatment and he was placed on BiPAP. O2 saturations were then in the low 90s. Laboratory studies here in the emergency department revealed a negative upper respiratory bio fire test. Urinalysis was concerning for infection. White blood cell count was elevated to 14. Hemoglobin was stable at 11.3. BUN was elevated at 31. Glucose was 166. Troponin was elevated at 24.2 and BNP was up to 733. Lactate was 2.4 and procalcitonin was 0.78. ABG did show a pH of 7.4 with pCO2 of 25 and pO2 of 104. Patient was thought to be septic From UTI and possible pulmonary source with respiratory failure secondary to CHF. Urinalysis was concerning for infection. EKG revealed a paced rhythm with no obvious signs of ischemia. Care/management discussed with: recruiting manager and [facility] Triage Nursing notes: reviewed and agree with them. Vital Signs: reviewed and unremarkable Additional History obtained from: EMS upon arrival and the patient's once she arrived at the bedside. Chronic Medical/Social Conditions affecting care: Chronic CHF Differential Diagnosis: CHF exacerbation, acute viral illness, pneumonia, hypercapnic respiratory failure Diagnostics, independently interpreted by me: ECG: ventricular paced rhythm at a rate of 90 Cardiac Monitoring: paced rhythm at a rate of 90 Imaging studies: portable chest x-ray: As per my independent interpretation- Evidence of congestive heart failure bilaterally HPI: 79 year old Male arrives for evaluation of shortness of breath. Patient developed shortness of breath yesterday around noon time and took an extra diuretic. Breathing continued to worsen throughout the day till tonight he had to call EMS. Upon their arrival, O2 saturation was in the low 80s. They placed him on 15 L of oxygen which brought him up to 88%. Patient was noted to be wheezing and was given a DuoNeb treatment and he was placed on BiPAP. O2 saturations were then in the low 90s. PAST MEDICAL HISTORY: See Below, PAST SURGICAL HISTORY: See Below, SOCIAL HISTORY: See Below, HOME MEDICATIONS: see list ALLERGIES: see list VITALS: See Below PHYSICAL EXAMINATION: HEENT: Head - normocephalic and atraumatic. Pupils are equal, round, and reactive to light. Extraocular eye muscles are intact, and sclera are anicteric. Nose - moist nasal mucosa without discharge. Mouth - moist buccal mucosa. Oropharynx is nonerythematous and there is no tonsillar exudate or edema noted. Neck: Supple; no JVD Or cervical lymphadenopathy Heart: Regular rate and rhythm. There is a normal S1 and S2 with no murmurs, clicks, or gallops appreciated. Lungs: diminished breath sounds in all lung paul Abdomen: Soft, completely nontender, nondistended, with good bowel sounds. There are no palpable pulsatile masses or hepatosplenomegaly. There is no guarding, rigidity, or rebound noted. Extremities: 2+ pitting edema both lower extremities. Skin: warm and dry with good turgor and no rashes. Emergency Department course: The patient was evaluated in room A-1. A complete history and physical was performed. Laboratory studies were drawn as above. The patient was placed on BiPAP. Portable chest x-ray was performed. Twelve-lead EKG was obtained. Order was placed for continuous cardiac monitoring. The patient was in a paced rhythm at a rate of 90. ABG was obtained which showed a pH of 7.4 pCO2 of 25. pO2 of 102 and bicarb of 19. Patient's O2 saturations were maintained above 90% on the BiPAP. He was able to breathe more easily after just a short period of time. Once the patient's arrived in the emergency department, she provided additional history stating that the patient had a fever last evening and was unable to get warm. At that point, we added a septic protocol including lactate, procalcitonin and blood cultures. Lactate and procalcitonin were both elevated and on repeat testing the patient's temperature elevated. Patient did not meet criteria for IV normal saline bolus for sepsis because he was already fluid overloaded with a BNP greater than 700 and evidence of congestive heart failure on chest x-ray. Patient was prophylaxed with IV Zosyn. She also gave the history that the patient had recently finished up a course of antibiotics for urinary tract infection but she wondered if the UTI had returned given some recent symptoms. I discussed the case with the [facility] team and they will evaluate for further inpatient care. I have personally spent greater than 65minutes of critical care time in the direct management of this patient. This includes bedside care, interpretation of diagnostic studies, and testing, discussion with consultants, patient, and family members, and other required patient management activities. This 65 minutes is in excess of all separately billable procedures. Past Med/Surg History Problem List (Updated 07/23/24 @ 06:17 by Britney Martinez DO) Elevated troponin (Acute) Acute UTI (Acute) Respiratory failure (Acute) Hypoxia (Acute) CHF (congestive heart failure) (Acute) Sepsis (Acute) Fissure in skin of foot (Acute) Fluid overload (Acute) Acute UTI (Acute) Breathlessness (Acute) COVID-19 (Acute) Norovirus Scalp hematoma SARS-CoV-2 positive Diarrhea Fall (Acute) CHI (closed head injury) (Acute) Hypoxia (Acute) CAD (coronary artery disease) s/p stent 2010 Sleep apnea bipap Presence of combination internal cardiac defibrillator (ICD) and pacemaker first placed 2010 @ [facility] replaced in 2014 & 2021 @ [facility]--biventricular [employer]. reports last check 11/25/22. Paroxysmal atrial fibrillation Abdominal distension Catheter-associated urinary tract infection UTI (urinary tract infection) (Acute) CHF (congestive heart failure) (Acute) Anticoagulant long-term use PAT (paroxysmal atrial tachycardia) Cardiomyopathy Hypotension (Acute) Atrial fibrillation, controlled Parkinsonism Stage III pressure ulcer of buttock (Acute) Centrilobular emphysema Bilateral foot-drop Esophagitis Dysphagia Biliary dyskinesia (Chronic) Idiopathic peripheral neuropathy (Acute) Cervical spondylosis without myelopathy (Acute) Cervical radiculopathy (Acute) Complex renal cyst Ulnar neuropathy of both upper extremities Agent orange exposure Warfarin anticoagulation (Chronic) Balance problem Elevated PSA Atherogenic dyslipidemia Cervicogenic headache Spasticity upper limbs Medical History BPH loc w urin obs/LUTS HFrEF (heart failure with reduced ejection fraction) Atrial tachycardia CHF (congestive heart failure) Tachycardia Pressure ulcer of right heel, stage 4 Benign essential hypertension Ischemic cardiomyopathy Euvolemic at 11/23/22 cardio appt Elevated INR Near syncope Tachycardia Leg pain Elevated lactic acid level Elevated INR Cellulitis Unstageable pressure ulcer of right heel Unstageable pressure ulcer of left heel Hypoxia Vomiting Acute kidney injury Elevated troponin Acute kidney failure Acute UTI Sepsis Severe sepsis Encounter for pre-operative examination Intrinsic minus hand POWERS (dyspnea on exertion) Preop testing Episode of confusion Right upper quadrant abdominal pain Hand laceration Dog bite Chest pain Cellulitis of left arm Peripheral arterial disease Hypertension Tremor ICD (implantable cardioverter-defibrillator) in place Neuropathy Complex sleep apnea syndrome NYHA class 4 acute on chronic systolic heart failure History of kidney stones Emphysema lung Legally blind Chronic back pain History of urinary self-catheterization self caths every other night History of DVT of lower extremity 2010 Macular degeneration Hearing deficit Depression Migraine Myocardial Infarction 10/2010--follows with Dr. Abreu Pulmonary embolism 1992 and 2010 after heart attack--follows with Dr. Abreu Asthma inhaler prn Surgical History Presence of biventricular automatic cardioverter/defibrillator (AICD) S/P epidural steroid injection History of foot surgery plantar fasciitis History of open reduction and internal fixation (ORIF) procedure left foot--hardware removed History of prostate biopsy x3--precancerous, just monitoring for now History of prostate surgery 07/2016--[facility] prostate vaproization History of cystoscopy multiple History of colonoscopy with polypectomy History of esophagogastroduodenoscopy (EGD) History of right inguinal hernia repair x3 History of Khari fundoplication History of cholecystectomy History of tooth extraction History of eye surgery right--macular degeneration History of bilateral cataract extraction History of cardiac cath 10/2010 @ [facility]--1 stent placed Family History Son Family history of diabetes mellitus Other Family history non-contributory No family history of adverse response to anesthesia Social History Smoking Status: Former smoker Tobacco Type: Cigarettes Second Hand Exposure: No; Do You Dip or Chew Tobacco: No; Hx Alcohol Use: No Hx Substance Use: No Preferred Language: Indonesian Communication Ability: Effective Visual Impairment: Partially Limited Hearing Ability: Use of Hearing Aid Ear Nose And Throat Specialist Required: No Beliefs That Will Affect Care: None marital status: Current Living Situation: Spouse Current Living Situation Comment: with Arc[employer]i current occupational status: retired How many Children do You have: 1 How many Children do You have Comment: son , able to assist with care as needed Other Information That Helps Us Care for You: No Feels Safe at Home: Yes Safety Concerns: Feels Safe At This Time Diet: low salt and regular Assistive Devices: BiPap, Oxygen - at Night, Scooter/Electric Scooter, Walker, Wheelchair and Other Allergies Allergies Allergy/AdvReac Type Severity Reaction Status Date / Time bee venom protein (honey bee) Allergy Severe SWELLING, Verified 07/23/24 02:18 SOB Penicillins Allergy Severe SWELLING, Verified 07/23/24 02:18 DIFFICULTY BREATHING lidocaine Allergy Mild RASH Verified 07/23/24 02:18 gabapentin Allergy Unknown Pt denies, Verified 07/23/24 02:18 uncertain icosapent ethyl Allergy Unknown On med Verified 07/23/24 02:18 list / [facility] pregabalin Allergy Unknown On med Verified 07/23/24 02:18 list / [facility] cefdinir AdvReac Severe Vomiting Verified 07/23/24 02:18 hydrocodone AdvReac Mild nausea Verified 07/23/24 02:18 oxycodone AdvReac Mild nausea-SLOW Verified 07/23/24 02:18 RELEASE IS OK Home Meds Home Medications Medication Instructions Recorded Confirmed albuterol sulfate 90 mcg/actuation 2 puffs inhalation Q6H PRN 12/01/18 07/23/24 aerosol inhaler Shortness Of Breath Or Wheezing bupropion HCl 100 mg tablet 100 mg PO BID 12/01/18 07/23/24 docusate sodium 100 mg capsule 100 mg PO BID 12/01/18 07/23/24 finasteride 5 mg tablet 5 mg PO QAM 12/01/18 07/23/24 aspirin 81 mg tablet,delayed 81 mg PO QAM 12/21/18 07/23/24 release sennosides 8.6 mg tablet 8.6 mg PO BID 12/21/18 07/23/24 white petrolatum-mineral oil 56.8 1 applic ophthalmic (eye) HS 12/21/18 07/23/24 %-42.5 % eye ointment (Refresh Lacri-Lube) sacubitril 49 mg-valsartan 51 mg 1 tab PO AMPM 11/25/20 07/23/24 tablet pantoprazole 40 mg tablet,delayed 40 mg PO BID 03/10/21 07/23/24 release tiotropium 2.5 mcg-olodaterol 2.5 2 puff inhalation QAM 12/02/22 07/23/24 mcg/actuation mist for inhalation (Stiolto Respimat) cetirizine 10 mg tablet 10 mg PO QDB 05/17/23 07/23/24 epinephrine 0.3 mg/0.3 mL 0.3 mg IM DIRECTED PRN sEVERE 07/08/23 07/23/24 injection, auto-injector ALLERGIC REACTION carvedilol 25 mg tablet 25 mg PO BID 03/27/24 07/23/24 vitamins A,C,K-xjaz-vnaswo 4,296 1 cap PO BID 03/27/24 07/23/24 mcg-226 mg-90 mg capsule (PreserVision AREDS) aluminum hydroxide gel 320 mg/5 mL 960 mg PO DAILY PRN Heartburn 06/16/24 07/23/24 oral suspension nystatin 100,000 unit/gram topical 1 applic topical BID PRN Jenny 06/16/24 07/23/24 ointment skin infection ondansetron HCl 8 mg tablet 4 mg PO Q8H PRN Nausea And Vomiting 06/16/24 07/23/24 oxycodone 10 mg tablet,crush 10 mg PO BID 06/16/24 07/23/24 resistant,extended release 12 hr (OxyContin) pramipexole 0.375 mg 0.375 mg PO QAM Parkinsonism 06/16/24 07/23/24 tablet,extended release 24 hr rosuvastatin 20 mg tablet 10 mg PO DAILY 06/16/24 07/23/24 metoclopramide HCl 5 mg tablet 5 mg BID 07/02/24 07/23/24 Previous Rx's Medication Instructions Recorded bumetanide 1 mg tablet 1 mg PO QAM #90 tabs 10/10/23 potassium chloride 20 mEq 20 meq PO BID #200 tabs 10/10/23 tablet,extended release apixaban 5 mg tablet (Eliquis) 5 mg PO BID #180 tabs 11/23/23 Results & Data (ED) Vital Signs Vital Signs - 24 hr 07/23/24 01:30 07/23/24 01:30 07/23/24 01:40 Temperature 36.8 C Temperature Source Oral Pulse Rate 100 H 90 Pulse Rate [Apical] Pulse Rhythm Irregular Pulse Rhythm [Apical] Pulse Strength Normal Pulse Strength [Apical] Respiratory Rate 38 H Respiratory Effort / Characteristics Non-Labored Spontaneous Respiratory Depth Shallow Shallow Respiratory Pattern Tachypnea Tachypnea Blood Pressure 147/75 H Blood Pressure [Right Arm] Blood Pressure Mean 99 Blood Pressure Mean [Right Arm] Blood Pressure Position Lying Blood Pressure Position [Right Arm] Pulse Oximetry 96 Oxygen Delivery Method BiPAP Fraction of Inspired Oxygen SaO2/FiO2 Ratio Sepsis Recent Fever Within 48 Hours No Sepsis New/Unexplained Change in Mental Status No Sepsis Action Taken by Nursing No Action Required 07/23/24 01:52 07/23/24 02:03 07/23/24 02:39 Temperature Temperature Source Pulse Rate 100 H 99 H Pulse Rate [Apical] 89 Pulse Rhythm Irregular Pulse Rhythm [Apical] Irregular Pulse Strength Pulse Strength [Apical] Normal Respiratory Rate 44 H 36 H 24 Respiratory Effort / Characteristics Labored Short of Breath Short of Breath Respiratory Depth Shallow Respiratory Pattern Tachypnea Tachypnea Blood Pressure Blood Pressure [Right Arm] 122/65 Blood Pressure Mean Blood Pressure Mean [Right Arm] 84 Blood Pressure Position Blood Pressure Position [Right Arm] Lying Pulse Oximetry 96 96 96 Oxygen Delivery Method BiPAP BiPAP Fraction of Inspired Oxygen 50 50 50 SaO2/FiO2 Ratio 192 192 Sepsis Recent Fever Within 48 Hours Sepsis New/Unexplained Change in Mental Status Sepsis Action Taken by Nursing 07/23/24 03:29 Temperature Temperature Source Pulse Rate Pulse Rate [Apical] 80 Pulse Rhythm Pulse Rhythm [Apical] Pulse Strength Pulse Strength [Apical] Respiratory Rate 32 H Respiratory Effort / Characteristics Respiratory Depth Respiratory Pattern Blood Pressure Blood Pressure [Right Arm] 117/67 Blood Pressure Mean Blood Pressure Mean [Right Arm] 83 Blood Pressure Position Blood Pressure Position [Right Arm] Pulse Oximetry 95 Oxygen Delivery Method BiPAP Fraction of Inspired Oxygen 50 SaO2/FiO2 Ratio 190 Sepsis Recent Fever Within 48 Hours Sepsis New/Unexplained Change in Mental Status Sepsis Action Taken by Nursing Laboratory Data 07/23/24 02:03 07/23/24 02:03 Lab Results 07/23/24 07/23/24 07/23/24 Range/Units 02:00 02:03 02:16 WBC 14.00 H (4.8-10.8) K/ul RBC 3.95 L (4.70-6.10) M/uL Hgb 11.3 L (14.0-18.0) g/dl POC Hgb 11.6 L (14.0-18.0) g/dl Hct 35.4 L (42.0-52.0) % POC Hct 34 L (42-52) % MCV 89.6 (80.0-100.0) fL MCH 28.6 (25.0-34.0) pg MCHC 31.9 L (32.0-36.0) g/dL RDW Std Deviation 49.0 H (36.4-46.3) fL RDW Coeff of Jerry 15.2 H (11.5-14.5) % Plt Count 280 (130-400) K/uL MPV 10.4 (9.4-12.4) fL Immature Gran % (Auto) 0.6 % Neut % (Auto) 83.5 % Lymph % (Auto) 8.3 % [place] % (Auto) 6.6 % Eos % (Auto) 0.7 % Baso % (Auto) 0.3 % Neut # (Auto) 11.68 H (1.40-6.50) K/uL Lymph # (Auto) 1.16 L (1.20-3.40) K/uL [place] # (Auto) 0.93 H (0.11-0.59) K/uL Eos # (Auto) 0.10 (0.00-0.50) K/uL Baso # (Auto) 0.04 (0.00-0.20) K/uL Immature Gran # (Auto) 0.09 (0.01-0.20) K/uL POC pH 7.49 H (7.35-7.45) POC pCO2 26 L (35-46) mmHg POC pO2 104 H (80-95) mmHg POC HCO3 19 (19-24) [place]/L POC Total CO2 20 L (24-31) mmol/L POC Base Excess -4.0 (-9-1.8) [place]/L POC ABG O2 Sat 99.0 H (90-95) % POC Sodium 141 (135-144) mmol/L Sodium 140 (136-145) mmol/L POC Potassium 4.2 (3.3-5.0) mmol/L Potassium 4.3 (3.5-5.1) mmol/L Chloride 107 (98-107) mmol/L Carbon Dioxide 21 (21-32) mmol/L Anion Gap 12 H (3-11) BUN 31 H (6-23) mg/dl Creatinine 1.08 (0.6-1.4) mg/dl Est Cr Clr Drug Dosing 70.3 ml/min eGFR 69.81 BUN/Creatinine Ratio 28.7 H (10-20) Glucose 166 H (70-99(Fasting)) mg/dl Lactate (0.4-2.0) mmol/L Calcium 9.1 (8.6-10.3) mg/dl Magnesium (1.7-2.4) mg/dl Total Bilirubin 0.9 (0.2-1.0) mg/dl AST 12 L (13-39) U/L ALT 13 (7-52) U/L Alkaline Phosphatase 52 (34-104) U/L Troponin I High Sens 24.2 H (0-20) pg/ml B-Natriuretic Peptide 733 H (0-100) pg/ml Total Protein 7.5 (6.0-8.3) gm/dl Albumin 3.8 (3.4-5.0) gm/dl Globulin 3.7 (2.5-4.0) gm/dl Albumin/Globulin Ratio 1.0 (0.9-2) Procalcitonin 0.78 H (0-0.5) ng/ml Urine Color Yellow Urine Appearance Cloudy A (Clear) Urine pH 5.5 (4.5-7.5) Ur Specific [place] 1.019 (1.000-1.030) Urine Protein 2+ H (Negative) Urine Glucose (UA) Negative (Negative) Urine Ketones Trace H (Negative) Urine Blood 1+ H (Negative) Urine Nitrite Positive A (Negative) Urine Bilirubin Negative (Negative) Urine Urobilinogen Negative (Negative) Ur Leukocyte Esterase 3+ H (Negative) Urine WBC (Auto) >50 H (0-5) /hpf Urine RBC (Auto) 3-5 H (0-2) /hpf U Hyaline Cast (Auto) 6-10 H (0-2) /lpf U Epithel Cells (Auto) 0-2 (0-2) /hpf Urine Bacteria (Auto) 3+ H (None Seen) Adenovirus (PCR) Not Detected (NotDetected) B. pertussis DNA (PCR) Not Detected (NotDetected) B.parapertussis DNA PCR Not Detected (NotDetected) C. pneumoniae DNA (PCR) Not Detected (NotDetected) Coronavirus OC43 (PCR) Not Detected (NotDetected) Coronavirus HKU1 (PCR) Not Detected (NotDetected) Coronavirus 229E (PCR) Not Detected (NotDetected) SARS-CoV-2 (PCR) Not Detected (NotDetected) Coronavirus NL63 (PCR) Not Detected (NotDetected) Human Metapneumovir PCR Not Detected (NotDetected) Influenza Type A (PCR) Not Detected (NotDetected) Influenza Type B (PCR) Not Detected (NotDetected) M. pneumoniae (PCR) Not Detected (NotDetected) Parainfluenza 1 (PCR) Not Detected (NotDetected) Parainfluenza 2 (PCR) Not Detected (NotDetected) Parainfluenza 3 (PCR) Not Detected (NotDetected) Parainfluenza 4 (PCR) Not Detected (NotDetected) RSV (PCR) Not Detected (NotDetected) Entero/Rhino (PCR) Not Detected (NotDetected) 07/23/24 Range/Units 03:10 WBC (4.8-10.8) K/ul RBC (4.70-6.10) M/uL Hgb (14.0-18.0) g/dl POC Hgb (14.0-18.0) g/dl Hct (42.0-52.0) % POC Hct (42-52) % MCV (80.0-100.0) fL MCH (25.0-34.0) pg MCHC (32.0-36.0) g/dL RDW Std Deviation (36.4-46.3) fL RDW Coeff of Jerry (11.5-14.5) % Plt Count (130-400) K/uL MPV (9.4-12.4) fL Immature Gran % (Auto) % Neut % (Auto) % Lymph % (Auto) % [place] % (Auto) % Eos % (Auto) % Baso % (Auto) % Neut # (Auto) (1.40-6.50) K/uL Lymph # (Auto) (1.20-3.40) K/uL [place] # (Auto) (0.11-0.59) K/uL Eos # (Auto) (0.00-0.50) K/uL Baso # (Auto) (0.00-0.20) K/uL Immature Gran # (Auto) (0.01-0.20) K/uL POC pH (7.35-7.45) POC pCO2 (35-46) mmHg POC pO2 (80-95) mmHg POC HCO3 (19-24) [place]/L POC Total CO2 (24-31) mmol/L POC Base Excess (-9-1.8) [place]ita/L POC ABG O2 Sat (90-95) % POC Sodium (135-144) mmol/L Sodium (136-145) mmol/L POC Potassium (3.3-5.0) mmol/L Potassium (3.5-5.1) mmol/L Chloride (98-107) mmol/L Carbon Dioxide (21-32) mmol/L Anion Gap (3-11) BUN (6-23) mg/dl Creatinine (0.6-1.4) mg/dl Est Cr Clr Drug Dosing ml/min eGFR BUN/Creatinine Ratio (10-20) Glucose (70-99(Fasting)) mg/dl Lactate 2.4 H* (0.4-2.0) mmol/L Calcium (8.6-10.3) mg/dl Magnesium 1.9 (1.7-2.4) mg/dl Total Bilirubin (0.2-1.0) mg/dl AST (13-39) U/L ALT (7-52) U/L Alkaline Phosphatase (34-104) U/L Troponin I High Sens 23.5 H (0-20) pg/ml B-Natriuretic Peptide (0-100) pg/ml Total Protein (6.0-8.3) gm/dl Albumin (3.4-5.0) gm/dl Globulin (2.5-4.0) gm/dl Albumin/Globulin Ratio (0.9-2) Procalcitonin (0-0.5) ng/ml Urine Color Urine Appearance (Clear) Urine pH (4.5-7.5) Ur Specific [place] (1.000-1.030) Urine Protein (Negative) Urine Glucose (UA) (Negative) Urine Ketones (Negative) Urine Blood (Negative) Urine Nitrite (Negative) Urine Bilirubin (Negative) Urine Urobilinogen (Negative) Ur Leukocyte Esterase (Negative) Urine WBC (Auto) (0-5) /hpf Urine RBC (Auto) (0-2) /hpf U Hyaline Cast (Auto) (0-2) /lpf U Epithel Cells (Auto) (0-2) /hpf Urine Bacteria (Auto) (None Seen) Adenovirus (PCR) (NotDetected) B. pertussis DNA (PCR) (NotDetected) B.parapertussis DNA PCR (NotDetected) C. pneumoniae DNA (PCR) (NotDetected) Coronavirus OC43 (PCR) (NotDetected) Coronavirus HKU1 (PCR) (NotDetected) Coronavirus 229E (PCR) (NotDetected) SARS-CoV-2 (PCR) (NotDetected) Coronavirus NL63 (PCR) (NotDetected) Human Metapneumovir PCR (NotDetected) Influenza Type A (PCR) (NotDetected) Influenza Type B (PCR) (NotDetected) M. pneumoniae (PCR) (NotDetected) Parainfluenza 1 (PCR) (NotDetected) Parainfluenza 2 (PCR) (NotDetected) Parainfluenza 3 (PCR) (NotDetected) Parainfluenza 4 (PCR) (NotDetected) RSV (PCR) (NotDetected) Entero/Rhino (PCR) (NotDetected) Administered Medications Discontinued Medications Furosemide (Furosemide Inj 20 Mg/2 Ml Vial) 20 mg IV ONE ONE Stop: 07/23/24 04:44 Last Admin: 07/23/24 05:59 Dose: 20 mg Documented By: YARA Piperacillin Sod/Tazobactam Sod (Zosyn) 4.5 gm in 100 mls @ 200 mls/hr IV NOW ONE; Protocol Stop: 07/23/24 03:19 Last Infusion: 07/23/24 03:56 Dose: Infused Documented By: Admin: 07/23/24 03:26 Dose: 200 mls/hr Documented By: FRANKY Methylprednisolone (Methylprednisolone 125 Mg/2 Ml Vial) 60 mg IV NOW STA Stop: 07/23/24 04:44 Last Admin: 07/23/24 05:59 Dose: 60 mg Documented By: NRS Ondansetron HCl (Ondansetron Inj 2 Mg/Ml 2 Ml Vial) Confirm Administered Dose 4 mg .ROUTE .STK-MED ONE Stop: 07/23/24 02:22 Last Admin: 07/23/24 02:24 Dose: Not Given Documented By: JAM Ondansetron HCl (Ondansetron Inj 2 Mg/Ml 2 Ml Vial) 4 mg IV NOW STA Stop: 07/23/24 02:23 Last Admin: 07/23/24 02:24 Dose: 4 mg Documented By: JAM Imaging Data Radiologist's Impression: Chest X-Ray 07/23/24 01:48 EXAM: XR chest 1V portable CLINICAL HISTORY: Dyspnea. TECHNIQUE: X-ray of the chest 1 view: Frontal. COMPARISON: 07/04/2024. FINDINGS: Pulmonary Parenchyma: Interval regression of the opacification seen in the left lower hemithorax. Interval resolution of the opacity seen in right lower zone. Heart and Mediastinum: Increased cardiothoracic ratio. Dual-lead cardiac pacemaker is seen in situ. Bony Thorax: Bony thorax appears intact without fractures or deformities. Soft Tissues: Soft tissues overlying the chest wall are unremarkable. IMPRESSION: 1. Interval regression of the opacification seen in the left lower hemithorax. 2. Interval resolution of the opacity seen in right lower zone. Electronically signed by Kenrick Ramirez 07-23-2024 02:28 AM Discharge Plan Visit Data Chief Complaint: Respiratory Distress ED Provider: Britney Martinez Discharge Problem: Sepsis, CHF (congestive heart failure), Hypoxia, Respiratory failure, Acute UTI, Elevated troponin Patient Disposition: Admitted As Inpatient Discharge Instructions Interventions: ED Discharge Assessment Last Done: 07/23/24 04:49
[2024-07-23 02:20] LABS: Basophils # (auto) 0.04 K/uL (0.00-0.20); Basophils % (auto) 0.3 %; Eosinophils % (auto) 0.7 %; Hematocrit (blood only) 35.4 % (42.0-52.0); Hemoglobin 11.3 g/dl (14.0-18.0); Immature Granulocytes # (auto) 0.09 K/uL (0.01-0.20); Immature Granulocytes % (auto) 0.6 %; Lymphocytes # (auto) 1.16 K/uL (1.20-3.40); Lymphocytes % (auto) 8.3 %; Mean Corpuscular Hemoglobin 28.6 pg (25.0-34.0); Mean Corpuscular Hgb Conc 31.9 g/dL (32.0-36.0); Mean Corpuscular Volume 89.6 fL (80.0-100.0); Mean Platelet Volume 10.4 fL (9.4-12.4); Monocytes # (auto) 0.93 K/uL (0.11-0.59); Monocytes % (auto) 6.6 %; Neutrophils # (auto) 11.68 K/uL (1.40-6.50); Neutrophils % (auto) 83.5 %; Platelet Count 280 K/uL (130-400); RDW Coefficient of Variation 15.2 % (11.5-14.5); Red Blood Count 3.95 M/uL (4.70-6.10)
[2024-07-23] MEDS: ONDANSETRON INJ 2 MG/ML 2 ML VIAL IV STA (02:24)
[2024-07-23] MEDS: ONDANSETRON INJ 2 MG/ML 2 ML VIAL ONE (02:24)
--- NOTE | 2024-07-23 02:29 | XRay Report ---
EXAM: XR chest 1V portable CLINICAL HISTORY: Dyspnea. TECHNIQUE: X-ray of the chest 1 view: Frontal. COMPARISON: 07/04/2024. FINDINGS: Pulmonary Parenchyma: Interval regression of the opacification seen in the left lower hemithorax. Interval resolution of the opacity seen in right lower zone. Heart and Mediastinum: Increased cardiothoracic ratio. Dual-lead cardiac pacemaker is seen in situ. Bony Thorax: Bony thorax appears intact without fractures or deformities. Soft Tissues: Soft tissues overlying the chest wall are unremarkable. IMPRESSION: 1. Interval regression of the opacification seen in the left lower hemithorax. 2. Interval resolution of the opacity seen in right lower zone. Electronically signed by Kenrick Ramirez 07-23-2024 02:28 AM
[2024-07-23 02:31] LABS: iSTAT Arterial Blood Gas HCO3 19 meg/L (19-24); iSTAT Arterial Blood Gas pCO2 26 mmHg (35-46); iSTAT Arterial Blood Gas pH 7.49 (7.35-7.45); iSTAT Arterial Blood Gas pO2 104 mmHg (80-95); iSTAT Carbon Dioxide 20 mmol/L (24-31); iSTAT Hematocrit 34 % (42-52); iSTAT Hemoglobin 11.6 g/dl (14.0-18.0); iSTAT Potassium 4.2 mmol/L (3.3-5.0); iSTAT Sodium 141 mmol/L (135-144)
[2024-07-23 02:46] LABS: Albumin Level 3.8 gm/dl (3.4-5.0); Bilirubin,Total 0.9 mg/dl (0.2-1.0); Calcium 9.1 mg/dl (8.6-10.3); Potassium 4.3 mmol/L (3.5-5.1)
[2024-07-23 02:51] LABS: Troponin I High Sensitivity 24.2 pg/ml (0-20)
[2024-07-23 02:52] LABS: BUN Creatinine Ratio 28.7 (10-20); Creatinine Clr Calc Pharmacy 70.3 ml/min; Globulin 3.7 gm/dl (2.5-4.0); Total Protein 7.5 gm/dl (6.0-8.3)
[2024-07-23 02:55] LABS: Appearance Urine Cloudy (Clear); Bacteria Urine Automated 3+ (None Seen); Bilirubin Urine Negative (Negative); Blood Urine 1+ (Negative); Color Urine Yellow; Epithelial Cell Urine Auto 0-2 /hpf (0-2); Glucose Urine UA Negative (Negative); Ketones Urine Trace (Negative); Leukocyte Esterase Urine 3+ (Negative); Nitrite Urine Positive (Negative); Protein Urine 2+ (Negative); Specific Gravity Urine 1.019 (1.000-1.030); Urobilinogen Urine Negative (Negative); WBC Urine Automated >50 /hpf (0-5); pH Urine 5.5 (4.5-7.5)
[2024-07-23 03:09] LABS: Adenovirus PCR Not Detected (NotDetected); Bordetella parapertussis PCR Not Detected (NotDetected); Bordetella pertussis PCR Not Detected (NotDetected); Chlamydia pneumoniae PCR Not Detected (NotDetected); Coronavirus 229E PCR Not Detected (NotDetected); Coronavirus CoV-2 (COVID19)PCR Not Detected (NotDetected); Coronavirus HKU1 PCR Not Detected (NotDetected); Coronavirus NL63 PCR Not Detected (NotDetected); Coronavirus OC43PCR Not Detected (NotDetected); Human Metapneumovirus PCR Not Detected (NotDetected); Influenza A PCR Not Detected (NotDetected); Influenza B PCR Not Detected (NotDetected); Mycoplasma pneumoniae PCR Not Detected (NotDetected); Parainfluenza Virus 1 PCR Not Detected (NotDetected); Parainfluenza Virus 2 PCR Not Detected (NotDetected); Parainfluenza Virus 3 PCR Not Detected (NotDetected); Parainfluenza Virus 4 PCR Not Detected (NotDetected); Respiratory Syncytial VirusPCR Not Detected (NotDetected); Rhinovirus/Enterovirus PCR Not Detected (NotDetected)
[2024-07-23] MEDS: PIPERACILLIN/TAZOBACTAM 4.5 GM/100 ML BAG IV ONE (03:26)
[2024-07-23 03:58] LABS: Magnesium 1.9 mg/dl (1.7-2.4)
[2024-07-23 04:04] LABS: Troponin I High Sensitivity 23.5 pg/ml (0-20)
--- NOTE | 2024-07-23 04:23 | History & Physical Report ---
Date of Service July 23, 2024 Assessment & Plan (1) Acute respiratory failure with hypoxia: (2) Acute on chronic systolic heart failure: (3) UTI (urinary tract infection): (4) Elevated troponin: Plan 79-year-old male PMHx CAD s/p defibrillator and pacer, CHF, paroxysmal atrial tachycardia, cardiomyopathy, A-fib on Eliquis, sleep apnea, and centrilobular emphysema presenting via EMS for SOB that began 2 days COMPLAINT MANAGER. ED evaluation reveals leukocytosis 14k, H&H 11.3/35.4, POC blood gases pH 7.49, pCO2 26, pO2 104; CMP anion gap 12, BUN 31, BUN/creatinine ratio 28.7, glucose 166, AST 12; lactate 2.4; initial troponin 24.2, repeat 23.5; BNP 733; procalcitonin 0.78; UA with nitrate, blood, LE, WBC, and presence of bacteria; BioFire negative; CXR reveals interval progression of opacification seen in left lower hemothorax, interval resolution of opacity seen in RL zone; EKG was ventricular paced rhythm with frequent AV dual paced complexes at 90 bpm.; Provided with Zosyn 4.5 mg IV and ondansetron 4 mg IV. #Acute hypoxic respiratory failure/acute on chronic CHF/? PNA Presenting w/ SOB x 2 days COMPLAINT MANAGER and hypoxic on arrival; requiring BiPAP at time of admission, with O2 sats 95%. Utilizes 2L O2 at night only at baseline. Suspect secondary to fluid overload; did take extra Bumex day COMPLAINT MANAGER with minimal relief. Does also report some F/C the night COMPLAINT MANAGER and Tmax 101F. At home regimen entresto, bumex; Combination of CHF vs ? viral illness vs ? PNA - CBC leukocytosis 14k and neutrophil predominant; POC VBGs pH 7.49, pCO2 26, pO2 104; CMP anion gap 12; procalcitonin 0.78; BNP 733; lactate 2.4 - CXR interval progression of opacification seen in left lower hemithorax, interval resolution of opacity seen in right lung zone - Echo 05/2024 with EF 25-30% - O2 at baseline at night only 2 L; currently requiring BiPAP, wean as patient tolerates - Lasix 20mg IV x 1 - gentle diuresis given setting of infection; continue home dose bumetanide - Solu-Medrol 60mg IV x 1 - poor air movement, faint wheezing on initial exam - DuoNebs q6h - CBC, CMP am - Cardiology consulted- Dr. Royce Negron specifically requested by patient and patient's #UTI, catheter associated No LUTS, but with chronic UTI 2/2 chronic catheterization. Prior urine cx with Klebsiella (pansensitive). Reported F/C night COMPLAINT MANAGER, Tmax 101F. No CVA tenderness. - UA positive for infection; pending cx - Pending blood cx - Continue zosyn IV - Zofran prn, continue finasteride - Continue Kingston catheter (every other day per ) #L heel wound New occurrence, following with outpatient wound clinic - Please provide wound care daily - Wound care consulted #Elevated troponin Pt w/ h/o CAD; no current chest pain. - Troponin 24.2, repeat 23.5 - EKG without ischemic changes - Likely 2/2 demand ischemia from hypoxia #PAF- Eliquis, carvedilol #HLD- Rosuvastatin #Parkinsonism- Pramipexole #Chronic pain syndrome-OxyContin #GERD- Pantoprazole #Mood- Buspirone Dispo: Admit, PCU VTE Prophylaxis: Eliquis This document was dictated utilizing Variable. Please excuse any grammatical errors that may be secondary to use of this software. Admission and Anticipated Discharge Date Admission Date: 07/23/2024 History of Present Illness Chief Complaint: SOB Primary Care Provider: Tramaine Peterson MD 79-year-old male PMHx CAD s/p defibrillator and pacer, CHF, paroxysmal atrial tachycardia, cardiomyopathy, A-fib on Eliquis, sleep apnea, and centrilobular emphysema presenting via EMS for SOB that began 2 days COMPLAINT MANAGER. Patient reports that SOB has been worsening since that time. Upon EMS arrival, patient was on 15L via NRB with saturations in the low 80s, and he was then placed on BiPAP which allowed saturations increased to mid 90s. He also received DuoNeb via EMS. is present in room during time of visit and helps provide history. States that the night COMPLAINT MANAGER he was cold and shaking, stating that she had to continue to cover him up with blankets. After a while, she decided to take his temperature which was 101 F. States that she does often have to straight cath him every other day and that she was concerned the patient may have a new urinary tract infection. Patient reports taking extra dose of Bumex at night prior to arrival because he had a greater than 3 pound weight gain, but states that the fluid did not feel as though it was coming off as it normally does. Patient does also admit to a left heel wound which he is being followed by wound care for. Overall states that his only concern is that his hands hurt because they feel puffy and he just feels weak after everything. Did have a little bit of nausea without vomiting. Denying chest pain, palpitations, abdominal pain, vomiting/diarrhea/constipation, LUTS, syncope, numbness/tingling, or URI symptoms. ED evaluation reveals leukocytosis 14k, H&H 11.3/35.4, POC blood gases pH 7.49, pCO2 26, pO2 104; CMP anion gap 12, BUN 31, BUN/creatinine ratio 28.7, glucose 166, AST 12; lactate 2.4; initial troponin 24.2, repeat 23.5; BNP 733; procalcitonin 0.78; UA with nitrate, blood, LE, WBC, and presence of bacteria; BioFire negative; CXR reveals interval progression of opacification seen in left lower hemothorax, interval resolution of opacity seen in RL zone; EKG was ventricular paced rhythm with frequent AV dual paced complexes at 90 bpm.; Provided with Zosyn 4.5 mg IV and ondansetron [address] Calix's attestation for adjustments/additions to treatment plan. Allergies Allergy/AdvReac Type Severity Reaction Status Date / Time bee venom protein (honey bee) Allergy Severe SWELLING, Verified 07/23/24 02:18 SOB Penicillins Allergy Severe SWELLING, Verified 07/23/24 02:18 DIFFICULTY BREATHING lidocaine Allergy Mild RASH Verified 07/23/24 02:18 gabapentin Allergy Unknown Pt denies, Verified 07/23/24 02:18 uncertain icosapent ethyl Allergy Unknown On med Verified 07/23/24 02:18 list w/ [facility]acy pregabalin Allergy Unknown On med Verified 07/23/24 02:18 list w/ [facility]acy cefdinir AdvReac Severe Vomiting Verified 07/23/24 02:18 hydrocodone AdvReac Mild nausea Verified 07/23/24 02:18 oxycodone AdvReac Mild nausea-SLOW Verified 07/23/24 02:18 RELEASE IS OK Home Medications Medication Instructions Recorded Confirmed Type albuterol sulfate 90 mcg/actuation 2 puffs inhalation Q6H PRN 12/01/18 07/23/24 History aerosol inhaler Shortness Of Breath Or Wheezing bupropion HCl 100 mg tablet 100 mg PO BID 12/01/18 07/23/24 History docusate sodium 100 mg capsule 100 mg PO BID 12/01/18 07/23/24 History finasteride 5 mg tablet 5 mg PO QAM 12/01/18 07/23/24 History aspirin 81 mg tablet,delayed 81 mg PO QAM 12/21/18 07/23/24 History release sennosides 8.6 mg tablet 8.6 mg PO BID 12/21/18 07/23/24 History white petrolatum-mineral oil 56.8 1 applic ophthalmic (eye) HS 12/21/18 07/23/24 History %-42.5 % eye ointment (Refresh Lacri-Lube) sacubitril 49 mg-valsartan 51 mg 1 tab PO AMPM 11/25/20 07/23/24 History tablet pantoprazole 40 mg tablet,delayed 40 mg PO BID 03/10/21 07/23/24 History release tiotropium 2.5 mcg-olodaterol 2.5 2 puff inhalation QAM 12/02/22 07/23/24 History mcg/actuation mist for inhalation (Stiolto Respimat) cetirizine 10 mg tablet 10 mg PO QDB 05/17/23 07/23/24 History epinephrine 0.3 mg/0.3 mL 0.3 mg IM DIRECTED PRN sEVERE 07/08/23 07/23/24 History injection, auto-injector ALLERGIC REACTION bumetanide 1 mg tablet 1 mg PO QAM #90 tabs 10/10/23 07/23/24 Rx potassium chloride 20 mEq 20 meq PO BID #200 tabs 10/10/23 07/23/24 Rx tablet,extended release apixaban 5 mg tablet (Eliquis) 5 mg PO BID #180 tabs 11/23/23 07/23/24 Rx carvedilol 25 mg tablet 25 mg PO BID 03/27/24 07/23/24 History vitamins A,C,O-csxl-wqnedp 4,296 1 cap PO BID 03/27/24 07/23/24 History mcg-226 mg-90 mg capsule (PreserVision AREDS) aluminum hydroxide gel 320 mg/5 mL 960 mg PO DAILY PRN Heartburn 06/16/24 07/23/24 History oral suspension nystatin 100,000 unit/gram topical 1 applic topical BID PRN Jenny 06/16/24 07/23/24 History ointment skin infection ondansetron HCl 8 mg tablet 4 mg PO Q8H PRN Nausea And Vomiting 06/16/24 07/23/24 History oxycodone 10 mg tablet,crush 10 mg PO BID 06/16/24 07/23/24 History resistant,extended release 12 hr (OxyContin) pramipexole 0.375 mg 0.375 mg PO QAM Parkinsonism 06/16/24 07/23/24 History tablet,extended release 24 hr rosuvastatin 20 mg tablet 10 mg PO DAILY 06/16/24 07/23/24 History metoclopramide HCl 5 mg tablet 5 mg BID 07/02/24 07/23/24 History Past Med/Surg History Problem List (Updated 07/23/24 @ 06:17 by Britney Martinez, ) Elevated troponin (Acute) Acute UTI (Acute) Respiratory failure (Acute) Hypoxia (Acute) CHF (congestive heart failure) (Acute) Sepsis (Acute) Fissure in skin of foot (Acute) Fluid overload (Acute) Acute UTI (Acute) Breathlessness (Acute) COVID-19 (Acute) Norovirus Scalp hematoma SARS-CoV-2 positive Diarrhea Fall (Acute) CHI (closed head injury) (Acute) Hypoxia (Acute) CAD (coronary artery disease) s/p stent 2010 Sleep apnea bipap Presence of combination internal cardiac defibrillator (ICD) and pacemaker first placed 2010 @ [facility] replaced in 2014 & 2021 @ [facility]--biventricular [employer]. reports last check 11/25/22. Paroxysmal atrial fibrillation Abdominal distension Catheter-associated urinary tract infection UTI (urinary tract infection) (Acute) CHF (congestive heart failure) (Acute) Anticoagulant long-term use PAT (paroxysmal atrial tachycardia) Cardiomyopathy Hypotension (Acute) Atrial fibrillation, controlled Parkinsonism Stage III pressure ulcer of buttock (Acute) Centrilobular emphysema Bilateral foot-drop Esophagitis Dysphagia Biliary dyskinesia (Chronic) Idiopathic peripheral neuropathy (Acute) Cervical spondylosis without myelopathy (Acute) Cervical radiculopathy (Acute) Complex renal cyst Ulnar neuropathy of both upper extremities Agent orange exposure Warfarin anticoagulation (Chronic) Balance problem Elevated PSA Atherogenic dyslipidemia Cervicogenic headache Spasticity upper limbs Medical History BPH loc w urin obs/LUTS HFrEF (heart failure with reduced ejection fraction) Atrial tachycardia CHF (congestive heart failure) Tachycardia Pressure ulcer of right heel, stage 4 Benign essential hypertension Ischemic cardiomyopathy Euvolemic at 11/23/22 cardio appt Elevated INR Near syncope Tachycardia Leg pain Elevated lactic acid level Elevated INR Cellulitis Unstageable pressure ulcer of right heel Unstageable pressure ulcer of left heel Hypoxia Vomiting Acute kidney injury Elevated troponin Acute kidney failure Acute UTI Sepsis Severe sepsis Encounter for pre-operative examination Intrinsic minus hand POWERS (dyspnea on exertion) Preop testing Episode of confusion Right upper quadrant abdominal pain Hand laceration Dog bite Chest pain Cellulitis of left arm Peripheral arterial disease Hypertension Tremor ICD (implantable cardioverter-defibrillator) in place Neuropathy Complex sleep apnea syndrome NYHA class 4 acute on chronic systolic heart failure History of kidney stones Emphysema lung Legally blind Chronic back pain History of urinary self-catheterization self caths every other night History of DVT of lower extremity 2010 Macular degeneration Hearing deficit Depression Migraine Myocardial Infarction 10/2010--follows with Dr. Abreu Pulmonary embolism 1992 and 2010 after heart attack--follows with Dr. Abreu Asthma inhaler prn Surgical History Presence of biventricular automatic cardioverter/defibrillator (AICD) S/P epidural steroid injection History of foot surgery plantar fasciitis History of open reduction and internal fixation (ORIF) procedure left foot--hardware removed History of prostate biopsy x3--precancerous, just monitoring for now History of prostate surgery 07/2016--[facility] prostate vaproization History of cystoscopy multiple History of colonoscopy with polypectomy History of esophagogastroduodenoscopy (EGD) History of right inguinal hernia repair x3 History of Khari fundoplication History of cholecystectomy History of tooth extraction History of eye surgery right--macular degeneration History of bilateral cataract extraction History of cardiac cath 10/2010 @ [facility]--1 stent placed Family History Son Family history of diabetes mellitus Other Family history non-contributory No family history of adverse response to anesthesia Social History Smoking Status: Former smoker Tobacco Type: Cigarettes Second Hand Exposure: No; Do You Dip or Chew Tobacco: No; Hx Alcohol Use: No Hx Substance Use: No Preferred Language: Rw[place] Communication Ability: Effective Visual Impairment: Partially Limited Hearing Ability: Use of Hearing Aid Labor Relations Supervisor Required: No Beliefs That Will Affect Care: None marital status: Current Living Situation: Spouse Current Living Situation Comment: with [place] current occupational status: retired How many Children do You have: 1 How many Children do You have Comment: son , able to assist with care as needed Other Information That Helps Us Care for You: No Feels Safe at Home: Yes Safety Concerns: Feels Safe At This Time Diet: low salt and regular Assistive Devices: BiPap, Oxygen - at Night, Scooter/Electric Scooter, Walker, Wheelchair and Other Review of Systems Review of Systems: All systems reviewed & are unremarkable except as noted in Subjective Physical Exam Physical Exam: General: Resting in bed, no acute distress Skin: Warm and dry Head: Normocephalic, atraumatic Eyes: PERRL, conjunctivae clear, sclera non-icteric ENT: External ear and ear canal without swelling; nose atraumatic; fair dentition, tongue normal appearance, pharynx normal Neck: Supple, no LAD Cardio: RRR, no M/G/R, S1 and S2 normal Resp: Wearing BiPAP, satting in high 90s; No current respiratory distress; lungs with poor air movement throughout. Abdomen: Soft, symmetric, nontender; No masses or hepatosplenomegaly; Bowel sounds normoactive MSK: No deformities; pulses palpable and equal; 1+ pitting edema BLE; L heel with bandage covering it Neuro: Awake, alert; Sensation intact bilaterally; CN grossly intact Psych: Appropriate mood and affect; good judgement and insight. present in room at time of visit. Results & Data Results & Data Vital Signs (Past 12 Hours) Vital Signs Temp Pulse Pulse Resp BP BP Pulse Ox 07/23/24 03:29 80 32 H 117/67 95 07/23/24 02:39 89 24 122/65 96 07/23/24 02:03 99 H 36 H 96 07/23/24 01:52 100 H 44 H 96 07/23/24 01:40 90 07/23/24 01:30 36.8 C 100 H 38 H 147/75 H 96 O2 Del Method FiO2 07/23/24 03:29 BiPAP 50 07/23/24 02:39 BiPAP 50 07/23/24 02:03 BiPAP 50 07/23/24 01:52 50 07/23/24 01:40 07/23/24 01:30 BiPAP Laboratory Results 07/23/24 03:10 Aerobic Blood Culture - Pending Blood Anaerobic Blood Culture - Pending 07/23/24 03:10 Aerobic Blood Culture - Pending Blood Anaerobic Blood Culture - Pending 07/23/24 02:00 Urine Culture - Pending Urine,Clean Catch 07/23/24 07/23/24 07/23/24 03:10 02:16 02:03 WBC 14.00 H RBC 3.95 L Hgb 11.3 L POC Hgb 11.6 L Hct 35.4 L POC Hct 34 L MCV 89.6 MCH 28.6 MCHC 31.9 L RDW Std Deviation 49.0 H RDW Coeff of Jerry 15.2 H Plt Count 280 MPV 10.4 Immature Gran % (Auto) 0.6 Neut % (Auto) 83.5 Lymph % (Auto) 8.3 Boundary % (Auto) 6.6 Eos % (Auto) 0.7 Baso % (Auto) 0.3 Neut # (Auto) 11.68 H Lymph # (Auto) 1.16 L Boundary # (Auto) 0.93 H Eos # (Auto) 0.10 Baso # (Auto) 0.04 Immature Gran # (Auto) 0.09 POC pH 7.49 H POC pCO2 26 L POC pO2 104 H POC HCO3 19 POC Total CO2 20 L POC Base Excess -4.0 POC ABG O2 Sat 99.0 H POC Sodium 141 Sodium 140 POC Potassium 4.2 Potassium 4.3 Chloride 107 Carbon Dioxide 21 Anion Gap 12 H BUN 31 H Creatinine 1.08 Est Cr Clr Drug Dosing 70.3 eGFR 69.81 BUN/Creatinine Ratio 28.7 H Glucose 166 H Lactate 2.4 H* Calcium 9.1 Magnesium 1.9 Total Bilirubin 0.9 AST 12 L ALT 13 Alkaline Phosphatase 52 Troponin I High Sens 23.5 H 24.2 H B-Natriuretic Peptide 733 H Total Protein 7.5 Albumin 3.8 Globulin 3.7 Albumin/Globulin Ratio 1.0 Procalcitonin Urine Color Urine Appearance Urine pH Ur Specific [place] Urine Protein Urine Glucose (UA) Urine Ketones Urine Blood Urine Nitrite Urine Bilirubin Urine Urobilinogen Ur Leukocyte Esterase Urine WBC (Auto) Urine RBC (Auto) U Hyaline Cast (Auto) U Epithel Cells (Auto) Urine Bacteria (Auto) Adenovirus (PCR) B. pertussis DNA (PCR) B.parapertussis DNA PCR C. pneumoniae DNA (PCR) Coronavirus OC43 (PCR) Coronavirus HKU1 (PCR) Coronavirus 229E (PCR) SARS-CoV-2 (PCR) Coronavirus NL63 (PCR) Human Metapneumovir PCR Influenza Type A (PCR) Influenza Type B (PCR) M. pneumoniae (PCR) Parainfluenza 1 (PCR) Parainfluenza 2 (PCR) Parainfluenza 3 (PCR) Parainfluenza 4 (PCR) RSV (PCR) Entero/Rhino (PCR) 07/23/24 02:00 WBC RBC Hgb POC Hgb Hct POC Hct MCV MCH MCHC RDW Std Deviation RDW Coeff of Jerry Plt Count MPV Immature Gran % (Auto) Neut % (Auto) Lymph % (Auto) Boundary % (Auto) Eos % (Auto) Baso % (Auto) Neut # (Auto) Lymph # (Auto) Boundary # (Auto) Eos # (Auto) Baso # (Auto) Immature Gran # (Auto) POC pH POC pCO2 POC pO2 POC HCO3 POC Total CO2 POC Base Excess POC ABG O2 Sat POC Sodium Sodium POC Potassium Potassium Chloride Carbon Dioxide Anion Gap BUN Creatinine Est Cr Clr Drug Dosing eGFR BUN/Creatinine Ratio Glucose Lactate Calcium Magnesium Total Bilirubin AST ALT Alkaline Phosphatase Troponin I High Sens B-Natriuretic Peptide Total Protein Albumin Globulin Albumin/Globulin Ratio Procalcitonin 0.78 H Urine Color Yellow Urine Appearance Cloudy A Urine pH 5.5 Ur Specific [place] 1.019 Urine Protein 2+ H Urine Glucose (UA) Negative Urine Ketones Trace H Urine Blood 1+ H Urine Nitrite Positive A Urine Bilirubin Negative Urine Urobilinogen Negative Ur Leukocyte Esterase 3+ H Urine WBC (Auto) >50 H Urine RBC (Auto) 3-5 H U Hyaline Cast (Auto) 6-10 H U Epithel Cells (Auto) 0-2 Urine Bacteria (Auto) 3+ H Adenovirus (PCR) Not Detected B. pertussis DNA (PCR) Not Detected B.parapertussis DNA PCR Not Detected C. pneumoniae DNA (PCR) Not Detected Coronavirus OC43 (PCR) Not Detected Coronavirus HKU1 (PCR) Not Detected Coronavirus 229E (PCR) Not Detected SARS-CoV-2 (PCR) Not Detected Coronavirus NL63 (PCR) Not Detected Human Metapneumovir PCR Not Detected Influenza Type A (PCR) Not Detected Influenza Type B (PCR) Not Detected M. pneumoniae (PCR) Not Detected Parainfluenza 1 (PCR) Not Detected Parainfluenza 2 (PCR) Not Detected Parainfluenza 3 (PCR) Not Detected Parainfluenza 4 (PCR) Not Detected RSV (PCR) Not Detected Entero/Rhino (PCR) Not Detected Diagnostic Findings Chest X-Ray 07/23/24 01:48 EXAM: XR chest 1V portable CLINICAL HISTORY: Dyspnea. TECHNIQUE: X-ray of the chest 1 view: Frontal. COMPARISON: 07/04/2024. FINDINGS: Pulmonary Parenchyma: Interval regression of the opacification seen in the left lower hemithorax. Interval resolution of the opacity seen in right lower zone. Heart and Mediastinum: Increased cardiothoracic ratio. Dual-lead cardiac pacemaker is seen in situ. Bony Thorax: Bony thorax appears intact without fractures or deformities. Soft Tissues: Soft tissues overlying the chest wall are unremarkable. IMPRESSION: 1. Interval regression of the opacification seen in the left lower hemithorax. 2. Interval resolution of the opacity seen in right lower zone. Electronically signed by Kenrick Ramirez 07-23-2024 02:28 AM Medications Administered Zosyn 4.5 mg IV Zofran 4 mg IV ECG Additional Comments: Ventricular paced rhythm with frequent AV dual paced complexes 90 bpm, QRS 124, QT/QTc 402/491, PRT */124/58 Code Status & VTE Plan Code Status Full Supervising Physician Co-Signing Physician Notes Attending addendum: I have physically seen this patient, have supervised the SAMMY's activities, and agree with the H&P unless as otherwise noted. Assessment and Plan: The patient is a 79-year-old male with past medical history including CAD status post defibrillator and pacer, CHF, PAT, cardiomyopathy, A-fib on Eliquis, ROSE, and centrilobular emphysema. He presents to the emergency department with 2 days of worsening shortness of breath, dyspnea on exertion, intermittently productive cough. Chest x-ray shows left lower lobe opacification, but improvement of previous opacities seen in the right lung zone had recent admission. [facility]. #Acute on chronic respiratory failure with hypoxia/CHF exacerbation and pneumonia- Chest x-ray with improved right lower lobe pneumonia, but worsening left lower lobe infiltrate Placed on Solu-Medrol 60 mg IV x 1 now, and then 40 mg IV every 12 hours Duonebs every 4 hours while awake and every 2 hours when necessary. Every 6 hours, and every 2 hours as needed Most recent echocardiogram 06/20 with ejection fraction 25-30% Given furosemide 20 mg IV x 1 now, due to borderline blood pressure, and give additional Lasix as tolerated Urinary tract infection catheter associated- Follow urine culture and sensitivity Continue Zosyn 4.5 g IV every 8 hours begun in the ED Continue finasteride 5 mg daily Continue Kingston catheter Zofran 4 mg IV every 6 hours as needed Left heel wound- New finding Consult wound care Chronic medical conditions: PAF-continue Eliquis and carvedilol Hyperlipidemia continue rosuvastatin Parkinsonism-continue pramipexole GERD-continue pantoprazole Mood-Continue buspirone Chronic pain syndrome-continue OxyContin Remaining orders and notations as noted PG Care Time/CCT Total # of Minutes Spent Total Time Spent with Patient: Total time spent is greater than 50% in coordination of care (as documented) at patient's floor/unit and/or counseling patient: Coding Level of Care Code 68185 INT INP/OBS CARE 75MIN Diagnoses Acute respiratory failure with hypoxia J96.01 Acute on chronic systolic heart failure I50.23 UTI (urinary tract infection) N30.01 Hematuria presence: with hematuria Urinary tract infection type: acute cystitis Elevated troponin R79.89 (3) UTI (urinary tract infection) Hematuria presence: with hematuria Urinary tract infection type: acute cystitis Qualified Code(s): N30.01 - Acute cystitis with hematuria
[2024-07-23] MEDS ORDERED: ALBUT/IPRATROP 3MG/0.5MG NEB 3 ML VIAL NEB PRN (05:34)
[2024-07-23] MEDS: FUROSEMIDE INJ 20 MG/2 ML VIAL IV ONE (05:59)
[2024-07-23] MEDS: methylPREDNISolone 125 MG/2 ML VIAL IV STA (05:59)
[2024-07-23] MEDS: CETIRIZINE HCL 10 MG TABLET PO SCH (06:44)
[2024-07-23] MEDS: APIXABAN 5 MG TABLET PO SCH (08:16)
[2024-07-23] MEDS: carvediloL 25 MG TAB PO SCH (08:16)
[2024-07-23] MEDS: ASPIRIN 81 MG ECTAB PO SCH (08:16)
[2024-07-23] MEDS: buPROPion HCl 100 MG TABLET PO SCH (08:16)
[2024-07-23] MEDS: FINASTERIDE 5 MG TAB PO SCH (08:16)
[2024-07-23] MEDS: METOCLOPRAMIDE HCL 5 MG TABLET PO SCH (08:16)
[2024-07-23] MEDS: BUMETANIDE 1 MG TAB PO SCH (08:16)
[2024-07-23] MEDS: DOCUSATE SODIUM 100 MG CAP PO SCH (08:16)
[2024-07-23] MEDS: POTASSIUM CHLORIDE CRTAB 20 MEQ TABCR PO SCH (08:17)
[2024-07-23] MEDS: VALSARTAN/SACUBITRIL 51/49 MG TAB PO SCH (08:17)
[2024-07-23] MEDS: oxyCODONE HCL 10 MG TABCR (OxyCONTIN) PO SCH (08:17)
[2024-07-23] MEDS: PANTOprazole 40 MG TAB PO SCH (08:17)
[2024-07-23] MEDS: UMECLIDINIUM/VILANTEROL 62.5/25MCG 7 PUFFS/INHALER INH SCH (08:17)
[2024-07-23] MEDS: ROSUVASTATIN CALCIUM 10 MG TAB PO SCH (08:17)
[2024-07-23] MEDS: SENNA 8.6 MG TAB PO SCH (08:17)
[2024-07-23] MEDS: PIPERACILLIN/TAZOBACTAM 4.5 GM/100 ML BAG IV SCH (08:25)
--- NOTE | 2024-07-23 14:11 | Electrocardiogram Report ---
Test Reason : Blood Pressure : */* mmHG Vent. Rate : 90 BPM Atrial Rate : 96 BPM P-R Int : * ms QRS Dur : 124 ms QT Int : 402 ms P-R-T Axes : * 124 58 degrees QTcB Int : 491 ms Ventricular-paced rhythm with frequent AV dual-paced complexes Abnormal ECG When compared with ECG of 03-Jul-2024 00:03, Vent. rate has increased by 3 bpm Confirmed by Hallie Hernandez (Alysha) on 07/23/2024 2:10:55 PM Referred By: REFERRED SELF Confirmed By: Hallie Hernandez
[2024-07-23] MEDS: carvediloL 12.5 MG TAB PO SCH (20:30)
--- NOTE | 2024-07-23 20:37 | Communication Note ---
Date of Service: July 23, 2024 Saw patient mid-afternoon. He stated "I feel so much better." Dyspnea fully resolved. No cough. Was able to eat his meals today. Denies dysuria today but had some mild dysuria on 07/22. He states he was gaining weight this week and took extra bumex w/o success. He confirmed w/ me that he self-caths at home EVERY OTHER DAY. He typically self-caths at night-time. This is to maintain patency of his urethral tract. BPs low normal today tele - pacing; 4 beat run NSVT exam - gen - sitting in chair, NAD, looks well mouth - MM very dry neck - no JVD heart - RRR, s1 s2, 2/6 systolic murmur LSB lungs - mildly decreased BS bases, but no rales or wheeze abd - soft, slightly distended, BS+, NT ext - trace edema b/l, pulses feet 2+ b/l all labs reviewed imaging reviewed EKG reviewed A/P: 1. acute/chronic systolic CHF - improved. weight today of 103 kg is his best weight since 06/20. Dry weight is somewhat uncertain, however. He does not examine volume overloaded this afternoon, BPs are low-normal, and mucous membranes are dry. Will place AM bumex on hold, check labs tomorrow, and re-eval for ongoing diuresis. 2. catheter-associated UTI - cont IV abx 3. low-normal BPs - HOLD Entresto, HOLD bumex, reduce coreg by 1/2 to 12.5mg BID. Follow BPs carefully. 4. COPD - no exacerbation at this time; would not give additional steroids at this time. 5. hyperglycemia - check a1c AM. Toya Alvarez MD
[2024-07-24 06:29] LABS: Hematocrit (blood only) 33.5 % (42.0-52.0); Hemoglobin 10.6 g/dl (14.0-18.0); Mean Corpuscular Hemoglobin 28.6 pg (25.0-34.0); Mean Corpuscular Hgb Conc 31.6 g/dL (32.0-36.0); Mean Corpuscular Volume 90.3 fL (80.0-100.0); Platelet Count 270 K/uL (130-400); RDW Coefficient of Variation 15.1 % (11.5-14.5); RDW Standard Deviation 49.6 fL (36.4-46.3); Red Blood Count 3.71 M/uL (4.70-6.10); White Blood Count 13.41 K/ul (4.8-10.8)
[2024-07-24 06:48] LABS: BUN Creatinine Ratio 31.3 (10-20); Calcium 8.7 mg/dl (8.6-10.3); Creatinine Clr Calc Pharmacy 55.5 ml/min; Potassium 4.1 mmol/L (3.5-5.1)
[2024-07-24 08:13] LABS: Estimated Average Glucose 126 mg/dl
--- NOTE | 2024-07-24 10:59 | XRay Report ---
XR chest 2V PA/lateral CLINICAL HISTORY: hypoxia; CHF vs pneumonia? COMPARISON STUDY: Chest CT June 16, 2024. Chest radiograph July 23, 2024. FINDINGS: A left subclavian pacer/AICD is in place. Elevation of the left hemidiaphragm is again note d. Left basilar opacity similar to prior exam. Right basilar opacity has increased. Pulmonary vascula r congestion is again noted. Cardiomediastinal silhouette is stable. There is no pneumothorax. There are trace bilateral pleural effusions. IMPRESSION: 1. Increase in right basilar opacity. This may represent pneumonia or atelectasis. No change in left basilar opacity which favors atelectasis. 2. Cardiomegaly with pulmonary vascular congestion. 3. Trace bilateral pleural effusions. ACT 112: Negative or not required by law. Electronically signed by: Adam Benson M.D. 07/24/2024 10:57 AM
--- NOTE | 2024-07-24 14:04 | Hospitalist Progress Note ---
Date of Service July 24, 2024 Assessment & Plan (1) Acute respiratory failure with hypoxia: (2) Acute on chronic systolic heart failure: (3) Elevated troponin: (4) Pneumonia: (5) BPH loc w urin obs/LUTS: (6) Catheter-associated urinary tract infection: (7) CAD (coronary artery disease): (8) Presence of combination internal cardiac defibrillator (ICD) and pacemaker: (9) Sleep apnea: (10) Paroxysmal atrial fibrillation: (11) Parkinsonism: (12) History of venous thromboembolism: Plan 79yo male - h/o CAD, ICD/pacer status, chronic systolic CHF, paroxysmal atrial tachycardia, cardiomyopathy, paroxysmal A-fib on Eliquis, sleep apnea, and chronic use of straight cath at home every other day to maintain urethral patency. Presented with worsening dyspnea. Evidence of UTI as well as possible pneumonia. #Acute hypoxic respiratory failure - * 2nd to pneumonia * 2nd to decompensated systolic CHF * now just requiring 2 L NC O2 (typically only on NC O2 at night-time, but needing it during the day) #Pneumonia - * CXR today with possible RLL pneumonia * Zosyn for UTI should suffice * does have prior h/o MRSA 2022 - will recheck #UTI, catheter associated - * urine cx with e.coli * had e.coli earlier in June as well - that strain was resistant to cipro/levaquin/amp/amp-sulb * check PSA tomorrow - if elevated above prior levels could have element of prostatitis especially in light of e.coli present several weeks ago as well #L heel wound - * Wound care consult appreciated * cont Darco shoes #Elevated troponin - * peak HS trop 24.2 * likely 2nd to myocardial demand ischemia in setting of pneumonia, UTI, decompensated CHF, etc. #chronic systolic CHF - * EF 25-30% on echo 05/2024 * ?decompensation although Creatinine already rising with diuresis * will simply resume his PO bumex he takes at home * cont coreg at reduced dose * holding Entresto due to low-normal BPs * appreciate Dr Negron's consultation #PAF - * cont Eliquis * cont carvedilol at reduced dose due to low-normal or low BPs #Hyperlipidemia - * cont Rosuvastatin #Parkinsonism - * cont Pramipexole * PT/OT #Chronic pain syndrome - oxycontin 10mg BID #GERD - cont Pantoprazole #Deconditioning - * due to recurrent illnesses, recurrent admissions - all in the setting of numerous comorbidities * cont PT/OT * needs rehab - he is agreeable DVT proph - Eliquis 5mg BID updated at bedside today, 07/24 Admission and Anticipated Discharge Date Admission Date: July 23, 2024 Subjective tele overnight - pacing patient sitting in chair during the visit he states he is agreeable to going to rehab he admits he is very weak and "I've gotten weaker and weaker with every time I'm here [in the hospital]" he did have mild dyspnea overnight no dyspnea with sitting in chair minimal cough eating well did have straight cath x 1 last pm per his usual schedule Review of Systems Review of Systems: gen - no fevers or chills; fatigued/weak cv - no chest pain pulm - no wheezing GI - no N/V or abd pain Physical Exam Physical Exam: gen - sitting in chair, NAD neck - no obvious JVD mouth - MMM heart - RRR, s1 s2 lungs - decreased BS both bases, otherwise no wheezing or rales; no increased work of breathing abd - soft NT ND BS+ ext - trace edema b/l shins/feet; pulses b/l feet 2+ psych - a/o x 3 musculo - has b/l [employer] shoes on both feet Results & Data Results & Data Vital Signs (Past 12 Hours) Vital Signs Temp Pulse Pulse Resp BP Pulse Ox O2 Del Method 07/24/24 10:57 36.4 C L 89 20 98/57 L 93 Nasal Cannula 07/24/24 10:25 84 07/24/24 07:22 Nasal Cannula 07/24/24 07:11 36.5 C 82 19 107/70 92 Nasal Cannula 07/24/24 03:15 36.3 C L 83 16 100/66 96 CPAP 07/24/24 02:15 84 24 96 O2 Flow Rate FiO2 07/24/24 10:57 2 07/24/24 10:25 07/24/24 07:22 2 07/24/24 07:11 2 07/24/24 03:15 07/24/24 02:15 30 Laboratory Results Laboratory Results - last 24 hr 07/24/24 05:38 WBC 13.41 H RBC 3.71 L Hgb 10.6 L Hct 33.5 L MCV 90.3 MCH 28.6 MCHC 31.6 L RDW Std Deviation 49.6 H RDW Coeff of Jerry 15.1 H Plt Count 270 MPV 11.0 Sodium 138 Potassium 4.1 Chloride 104 Carbon Dioxide 25 Anion Gap 9 BUN 42 H Creatinine 1.34 Est Cr Clr Drug Dosing 55.5 eGFR 53.89 BUN/Creatinine Ratio 31.3 H Glucose 131 H Estimat Average Glucose 126 Hemoglobin A1c 6.0 H Calcium 8.7 Diagnostic Findings Microbiology 07/23/24 03:10 Blood Aerobic Blood Culture - Preliminary No growth in Aerobic bottle after 48 hours. 07/23/24 03:10 Blood Anaerobic Blood Culture - Preliminary No growth in Anaerobic bottle after 48 hours. 07/23/24 03:10 Blood Aerobic Blood Culture - Preliminary No growth in Aerobic bottle after 48 hours. 07/23/24 03:10 Blood Anaerobic Blood Culture - Preliminary No growth in Anaerobic bottle after 48 hours. 07/23/24 02:00 Urine,Clean Catch Urine Culture - Preliminary Escherichia coli Chest X-Ray 07/24/24 09:47 XR chest 2V PA/lateral CLINICAL HISTORY: hypoxia; CHF vs pneumonia? COMPARISON STUDY: Chest CT June 16, 2024. Chest radiograph July 23, 2024. FINDINGS: A left subclavian pacer/AICD is in place. Elevation of the left hemidiaphragm is again noted. Left basilar opacity similar to prior exam. Right basilar opacity has increased. Pulmonary vascular congestion is again noted. Cardiomediastinal silhouette is stable. There is no pneumothorax. There are trace bilateral pleural effusions. IMPRESSION: 1. Increase in right basilar opacity. This may represent pneumonia or atelectasis. No change in left basilar opacity which favors atelectasis. 2. Cardiomegaly with pulmonary vascular congestion. 3. Trace bilateral pleural effusions. ACT 112: Negative or not required by law. Electronically signed by: Adam Benson M.D. 07/24/2024 10:57 AM PG Care Time/CCT Total # of Minutes Spent Total Time Spent with Patient: Total time spent is greater than 50% in coordination of care (as documented) at patient's floor/unit and/or counseling patient: Coding Level of Care Code 08226 SUB INP/OBS CARE 3/50MIN Diagnoses Acute respiratory failure with hypoxia J96.01 Acute on chronic systolic heart failure I50.23 Elevated troponin R79.89 Pneumonia of both lower lobes due to infectious organism J18.9 Laterality: bilateral Lung location: lower lobe of lung Pneumonia type: due to unspecified organism BPH loc w urin obs/LUTS N40.1 Catheter-associated urinary tract infection T83.511A; N39.0 CAD (coronary artery disease) I25.10 Presence of combination internal cardiac defibrillator (ICD) and pacemaker Z95.810 Sleep apnea G47.30 Paroxysmal atrial fibrillation I48.0 Parkinsonism G20.C History of venous thromboembolism Z86.718 (4) Pneumonia Laterality: bilateral Lung location: lower lobe of lung Pneumonia type: due to unspecified organism Qualified Code(s): J18.9 - Pneumonia, unspecified organism
[2024-07-24] MEDS: BUMETANIDE 1 MG TAB PO ONE (14:13)
--- NOTE | 2024-07-24 14:16 | Cardiology Consultation ---
Date of Consultation July 24, 2024 Assessment & Plan (1) Hypoxia: This has resolved but is predominantly secondary to his acute lung issue. His chest x-ray does not show significant interstitial edema. There may have been some mild volume overload on presentation not observable by physical exam or will st x-ray since the receive diuretic upfront (taken at home just prior to transport via EMS). He had a swallow study which did not observe aspiration although there was retention of contrast in esophageal web. May need some teaching for swallowing as his tells me that when he eats he often coughs quite a bit. (2) CHF (congestive heart failure): He is euvolemic or very near euvolemic at this time. I would hold off on any diuretics for now. Unfortunately, his last blood pressure was low so we may need to hold his Entresto as well. Once he is no longer hypotensive he should continue with carvedilol 12.5 mg p.o. twice daily and Entresto. We could reduce to half dose to begin with until he gets out of here and into the congestive heart failure clinic. I will enroll the patient in congestive heart failure clinic given his frequent readmissions. (3) Elevated troponin: Known underlying coronary disease and hypoxia. Modest and flat elevation in the troponin is consistent with type II non-ST elevation [place]. No additional workup is necessary at this time. Continue treatment for pneumonia and/or UTI. (4) Paroxysmal atrial fibrillation: Heart rate is controlled on carvedilol 12.5 mg p.o. twice daily and he has back up pacemaker function prevent low heart rates. Continue with Eliquis 5 mg p.o. twice daily. (5) Hypotension: Probably secondary to sepsis and overdiuresis. On his previous admission he was also diuresed up front for presumed congestive heart failure but his GFR wo rsened and he became hypotensive. I think some gentle fluid resuscitation may work better for him and hold his diuretic at this point. His baseline GFR is around 80. The last admission after diuresis his GFR dropped significantly but once they held diuretics and treated his sepsis his GFR returned to the 70s. On this admission after receiving diuretics his GFR has now dropped into the 50s. I suspect with some fluid resuscitation and holding his diuretics he will eventually improve back near his baseline. History of Present Illness Attending Physician: Howard Alvarez MD History of Present Illness 79-year-old who is well-known to me over the years for his multiple cardiac issues including coronary artery disease with prior [place] and stenting, ischemic cardiomyopathy status post ICD implant, atrial fibrillation, CVA, diuretic induced renal insufficiency, severe neuropathy with contractions, COPD, recurrent catheter associated UTI and BPH with LUTS. Recently seen in the cardiology office. Just prior to that he was admitted for urosepsis and "volume overload". However, when they diuresed him his renal function got much worse and it was clear that he was actually volume depleted not volume overloaded. He presented this time with dyspnea, hypoxia, respiratory distress. Chest x-ray and physical exam consistent with pneumonia (bilateral). Also with evidence of ongoing UTI. BNP was slightly elevated. Trivial elevation in his cardiac troponin. I was therefore asked to see him. Patient denies any anginal chest pain heaviness or tightness. His is present and says that he was quite short of breath at home. When EMS arrived he was hypoxic with O2 saturation of 77% not responding to increased oxygen levels. Eventually, he arrived in the emergency department and with much higher oxygen supplementation levels his hypoxia resolved. Currently, he denies any dyspnea. They both tell me that he has been coughing a lot lately and that seems to have worsened. She tells me that he had a swallow study which was "high likelihood of choking". She states they were giving him more Lasix because he was short of breath and they thought it was fluid but he did not put out more urine. At this time he is feeling better compared to when he got here but continues with a cough. He denies syncope, near syncope, orthopnea, PND, racing heartbeat, palpitations, or change in his baseline edema. He voices no other complaints or concerns at this time. Denies fevers or chills. Allergies Allergy/AdvReac Type Severity Reaction Status Date / Time bee venom protein (honey bee) Allergy Severe SWELLING, Verified 07/23/24 02:18 SOB Penicillins Allergy Severe SWELLING, Verified 07/23/24 02:18 DIFFICULTY BREATHING lidocaine Allergy Mild RASH Verified 07/23/24 02:18 gabapentin Allergy Unknown Pt denies, Verified 07/23/24 02:18 uncertain icosapent ethyl Allergy Unknown On med Verified 07/23/24 02:[address] [facility]/ [facility] pregabalin Allergy Unknown On med Verified 07/23/24 02:18 list / [facility] cefdinir AdvReac Severe Vomiting Verified 07/23/24 02:18 hydrocodone AdvReac Mild nausea Verified 07/23/24 02:18 oxycodone AdvReac Mild nausea-SLOW Verified 07/23/24 02:18 RELEASE IS OK Home Medications Medication Instructions Recorded Confirmed Type albuterol sulfate 90 mcg/actuation 2 puffs inhalation Q6H PRN 12/01/18 07/23/24 History aerosol inhaler Shortness Of Breath Or Wheezing bupropion HCl 100 mg tablet 100 mg PO BID 12/01/18 07/23/24 History docusate sodium 100 mg capsule 100 mg PO BID 12/01/18 07/23/24 History finasteride 5 mg tablet 5 mg PO QAM 12/01/18 07/23/24 History aspirin 81 mg tablet,delayed 81 mg PO QAM 12/21/18 07/23/24 History release sennosides 8.6 mg tablet 8.6 mg PO BID 12/21/18 07/23/24 History white petrolatum-mineral oil 56.8 1 applic ophthalmic (eye) HS 12/21/18 07/23/24 History %-42.5 % eye ointment (Refresh Lacri-Lube) sacubitril 49 mg-valsartan 51 mg 1 tab PO AMPM 11/25/20 07/23/24 History tablet pantoprazole 40 mg tablet,delayed 40 mg PO BID 03/10/21 07/23/24 History release tiotropium 2.5 mcg-olodaterol 2.5 2 puff inhalation QAM 12/02/22 07/23/24 History mcg/actuation mist for inhalation (Stiolto Respimat) cetirizine 10 mg tablet 10 mg PO QDB 05/17/23 07/23/24 History epinephrine 0.3 mg/0.3 mL 0.3 mg IM DIRECTED PRN sEVERE 07/08/23 07/23/24 History injection, auto-injector ALLERGIC REACTION bumetanide 1 mg tablet 1 mg PO QAM #90 tabs 10/10/23 07/23/24 Rx potassium chloride 20 mEq 20 meq PO BID #200 tabs 10/10/23 07/23/24 Rx tablet,extended release apixaban 5 mg tablet (Eliquis) 5 mg PO BID #180 tabs 11/23/23 07/23/24 Rx carvedilol 25 mg tablet 25 mg PO BID 03/27/24 07/23/24 History vitamins A,C,B-abrg-vunwsg 4,296 1 cap PO BID 03/27/24 07/23/24 History mcg-226 mg-90 mg capsule (PreserVision AREDS) aluminum hydroxide gel 320 mg/5 mL 960 mg PO DAILY PRN Heartburn 06/16/24 07/23/24 History oral suspension nystatin 100,000 unit/gram topical 1 applic topical BID PRN Jenny 06/16/24 07/23/24 History ointment skin infection ondansetron HCl 8 mg tablet 4 mg PO Q8H PRN Nausea And Vomiting 06/16/24 07/23/24 History oxycodone 10 mg tablet,crush 10 mg PO BID 06/16/24 07/23/24 History resistant,extended release 12 hr (OxyContin) pramipexole 0.375 mg 0.375 mg PO QAM Parkinsonism 06/16/24 07/23/24 History tablet,extended release 24 hr rosuvastatin 20 mg tablet 10 mg PO DAILY 06/16/24 07/23/24 History metoclopramide HCl 5 mg tablet 5 mg BID 07/02/24 07/23/24 History Patient History Medical History BPH loc w urin obs/LUTS HFrEF (heart failure with reduced ejection fraction) Atrial tachycardia CHF (congestive heart failure) Tachycardia Pressure ulcer of right heel, stage 4 Benign essential hypertension Ischemic cardiomyopathy Euvolemic at 11/23/22 cardio appt Elevated INR Near syncope Tachycardia Leg pain Elevated lactic acid level Elevated INR Cellulitis Unstageable pressure ulcer of right heel Unstageable pressure ulcer of left heel Hypoxia Vomiting Acute kidney injury Elevated troponin Acute kidney failure Acute UTI Sepsis Severe sepsis Encounter for pre-operative examination Intrinsic minus hand POWERS (dyspnea on exertion) Preop testing Episode of confusion Right upper quadrant abdominal pain Hand laceration Dog bite Chest pain Cellulitis of left arm Peripheral arterial disease Hypertension Tremor ICD (implantable cardioverter-defibrillator) in place Neuropathy Complex sleep apnea syndrome NYHA class 4 acute on chronic systolic heart failure History of kidney stones Emphysema lung Legally blind Chronic back pain History of urinary self-catheterization self caths every other night History of DVT of lower extremity 2010 Macular degeneration Hearing deficit Depression Migraine Myocardial Infarction 10/2010--follows with Dr. Abreu Pulmonary embolism 1992 and 2010 after heart attack--follows with Dr. Abreu Asthma inhaler prn Surgical History Presence of biventricular automatic cardioverter/defibrillator (AICD) S/P epidural steroid injection History of foot surgery plantar fasciitis History of open reduction and internal fixation (ORIF) procedure left foot--hardware removed History of prostate biopsy x3--precancerous, just monitoring for now History of prostate surgery 07/2016--[facility] prostate vaproization History of cystoscopy multiple History of colonoscopy with polypectomy History of esophagogastroduodenoscopy (EGD) History of right inguinal hernia repair x3 History of Khari fundoplication History of cholecystectomy History of tooth extraction History of eye surgery right--macular degeneration History of bilateral cataract extraction History of cardiac cath 10/2010 @ [facility]--1 stent placed Family History Son Family history of diabetes mellitus Other Family history non-contributory No family history of adverse response to anesthesia Social History Smoking Status: Former smoker Tobacco Type: Cigarettes Second Hand Exposure: No; Do You Dip or Chew Tobacco: No; Hx Alcohol Use: No Hx Substance Use: No Preferred Language: Yakut Communication Ability: Effective Visual Impairment: Partially Limited Hearing Ability: Use of Hearing Aid 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 No acute distress. Eyes: Extraocular muscle intact. Sclera are anicteric. ENMT: Oral mucosa is pink and dry. Neck: No JVD Respiratory: Chronic diminished air movement. Bilateral rhonchi with scattered wheeze one third up. Do not appreciate any crackles. Cardiovascular: Regular rate. Systolic murmur. Trace bilateral lower extremity edema which is at baseline. Neurologic: Cognition is intact. Speech is fluent. Diminished hearing. Chronic motor deficits unchanged. Psychiatric: A+Ox3, euthymic affect Results & Data Vital Signs (Past 12 Hours) Vital Signs Temp Pulse Pulse Resp BP Pulse Ox O2 Del Method 07/24/24 10:57 36.4 C L 89 20 98/57 L 93 Nasal Cannula 07/24/24 10:25 84 07/24/24 07:22 Nasal Cannula 07/24/24 07:11 36.5 C 82 19 107/70 92 Nasal Cannula 07/24/24 03:15 36.3 C L 83 16 100/66 96 CPAP O2 Flow Rate 07/24/24 10:57 2 07/24/24 10:25 07/24/24 07:22 2 07/24/24 07:11 2 07/24/24 03:15 PG Care Time/CCT Total # of Minutes Spent Total Time Spent with Patient: Total time spent is greater than 50% in coordination of care (as documented) at patient's floor/unit and/or counseling patient: Coding Level of Care Code 06460 INT INP/OBS CARE 3/75MIN Diagnoses Hypoxia R09.02 CHF (congestive heart failure) I50.9 Elevated troponin R79.89 Paroxysmal atrial fibrillation I48.0 Hypotension, unspecified hypotension type I95.9 Hypotension type: unspecified hypotension type (5) Hypotension Hypotension type: unspecified hypotension type Qualified Code(s): I95.9 - Hypotension, unspecified
[2024-07-24] MEDS: ONDANSETRON INJ 2 MG/ML 2 ML VIAL IV PRN (21:53)
[2024-07-25] MEDS: POLYETHYLENE (MIRALAX) 17 GM PACK PO PRN (05:01)
[2024-07-25 07:25] LABS: Calcium 8.7 mg/dl (8.6-10.3); Potassium 4.6 mmol/L (3.5-5.1)
[2024-07-25 07:43] LABS: BUN Creatinine Ratio 29.4 (10-20); Creatinine Clr Calc Pharmacy 55.4 ml/min
[2024-07-25] MEDS: ERTAPENEM 1000MG 1,000 MG/10 ML SYR IV SCH (09:36)
[2024-07-25] MEDS ORDERED: PRAMIPEXOLE 0.375 MG PO SCH ×3 (15:00)
[2024-07-25] MEDS ORDERED: MINERAL OIL ENEMA 133 ML BTL PR PRN (15:23)
--- NOTE | 2024-07-25 15:30 | Hospitalist Progress Note ---
Date of Service July 25, 2024 Assessment & Plan (1) Chest heaviness: (2) Acute respiratory failure with hypoxia: (3) Acute on chronic systolic heart failure: (4) Pneumonia: (5) BPH loc w urin obs/LUTS: (6) Catheter-associated urinary tract infection: (7) CAD (coronary artery disease): (8) Presence of combination internal cardiac defibrillator (ICD) and pacemaker: (9) Sleep apnea: (10) Paroxysmal atrial fibrillation: (11) Parkinsonism: (12) History of venous thromboembolism: (13) Constipation: Plan 79yo male - h/o CAD, ICD/pacer status, chronic systolic CHF, paroxysmal atrial tachycardia, cardiomyopathy, paroxysmal A-fib on Eliquis, sleep apnea, and chronic use of straight cath at home every other day to maintain urethral patency. Presented with worsening dyspnea. Evidence of UTI as well as possible pneumonia. #Chest heaviness/dyspnea at rest - * symptoms started some time this am, 07/25/24 * persistent, continuous symptoms * no response to SL nitro x 2 * lungs clear, O2 was actually weaned off this am * O2 reapplied this afternoon - no change in symptoms despite supplemental O2 * troponin negative despite constant symptoms since this morning * BNP significantly down in comparison to prior BNP * patient blames symptoms on his constipation * has known CAD, but given how long he had symptoms today, given that he had no relief with nitro, and with negative troponin - highly unlikely to be ischemic * appreciate Dr Negron's assistance today * perhaps the abdominal bloating/constipation is pressing on diaphragm causing his chest symptoms?? * other explanation? * monitor carefully overnight #Acute hypoxic respiratory failure - * improved * 2nd to pneumonia * 2nd to decompensated systolic CHF * improved - was actually weaned off O2 this am * typically only on NC O2 at night-time at home #Pneumonia - * CXR with possible RLL pneumonia * Had received zosyn since 07/23; changed to IV ertapenem today due to ESBL e.coli UTI * low suspicion for pseudomonas; ertapenem should suffice * does have prior h/o MRSA 2022 - recheck + today but he has improved w/o MRSA coverage * will defer on MRSA coverage unless he worsens or symptoms persist #UTI, catheter associated - * urine cx with e.coli, ESBL * d/c zosyn; change to IV ertapenem daily x 7 days * PSA very low - doubt prostatitis #L heel wound - * Wound care consult appreciated * cont Darco shoes #Elevated troponin - * peak HS trop 24.2 * likely 2nd to myocardial demand ischemia in setting of pneumonia, UTI, decompensated CHF, etc. * see above re: chest symptoms today #chronic systolic CHF - * EF 25-30% on echo 05/2024 * appears compensated today * bumex 1mg daily * cont coreg at reduced dose due to low-normal BPs * holding Entresto due to low-normal BPs * appreciate Dr Negron's consultation and recs #PAF - * cont Eliquis * cont carvedilol at reduced dose due to low-normal or low BPs #Hyperlipidemia - * cont Rosuvastatin #Parkinsonism - * cont Pramipexole - patient's brought brandname, extended release version from home; order placed * PT/OT #Chronic pain syndrome - oxycontin 10mg BID #GERD - cont Pantoprazole #Deconditioning - * due to recurrent illnesses, recurrent admissions - all in the setting of numerous comorbidities * cont PT/OT * needs rehab - he is agreeable #opiate-induced constipation - * severe * already on colace/senna * add miralax BID * dulcolax suppos x 1 today * consider Relistor while here if no success with bowels #ROSE - CPAP with blended O2 DVT proph - Eliquis 5mg BID updated at bedside 07/24 and 07/25 very complex care coordination today - 80 minutes in total - multiple visits to the bedside, Rx and work-up of chest symptoms, correspondence/discussion with cardiology, med management for UTI/pneumonia, etc. Admission and Anticipated Discharge Date Admission Date: July 23, 2024 Subjective tele overnight - pacing during my visit patient was sitting in the chair O2 was successfully weaned off earlier in the day sats 92% in RA since at bedside patient reports scant cough since this AM he has had "chest heaviness" (no pain) and dyspnea at rest states "I've been like this since I took my CPAP off this morning" he blames his chest heaviness & dyspnea on severe constipation he did move his bowels earlier today but the stool was tiny he reports similar episodes of chest heaviness & dyspnea at home - at rest and with exertion symptoms are worse with exertion he is not sure if the symptoms are like his symptoms when he had coronary stents placed in 2010 he has not tried nitro at home for his symptoms despite his constipation and the above symptoms he has eaten 100% of his meals today due to persistent chest heaviness I obtained EKG this afternoon - pacing, no ST changes and no changes from prior EKG gave 2 doses of SL nitro - no change in his symptoms he continued to c/o constipation and stomach upset ordered BNP - MUCH lower than prior BNP ordered troponin - negative discussed his care with Dr Negron with [facility] Cardiology Review of Systems Review of Systems: gen - no fevers or chills; does not feel well today Physical Exam Physical Exam: gen - sitting in chair, despite his complaints he appears very comfortable; no distress; seems anxious neck - no obvious JVD mouth - MMM heart - RRR, s1 s2, no murmur lungs - mildly decreased BS both bases, otherwise no wheezing or rales; good airation; no increased work of breathing abd - soft NT ND BS+; no HSM ext - trace edema b/l shins/feet; pulses b/l feet 2+ psych - a/o x 3 musculo - has b/l DARCO shoes on both feet; hand deformities b/l neuro - tremors of hands & arms Results & Data Results & Data Vital Signs (Past 12 Hours) Vital Signs Temp Pulse Pulse Resp BP Pulse Ox O2 Del Method 07/25/24 15:18 91 Room Air 07/25/24 11:44 36.6 C 82 18 100/64 92 Room Air 07/25/24 08:12 80 07/25/24 08:00 Nasal Cannula 07/25/24 07:49 36.7 C 82 18 114/71 95 Room Air 07/25/24 03:33 36.3 C L 80 16 114/77 96 BiPAP O2 Flow Rate 07/25/24 15:18 07/25/24 11:44 07/25/24 08:12 07/25/24 08:00 2 07/25/24 07:49 07/25/24 03:33 Laboratory Results Laboratory Results - last 24 hr 07/25/24 07/25/24 07/25/24 06:46 17:26 Unknown Sodium 137 135 L Potassium 4.6 4.4 Chloride 104 102 Carbon Dioxide 25 23 Anion Gap 8 10 BUN 40 H 40 H Creatinine 1.36 1.30 Est Cr Clr Drug Dosing 55.4 58.0 eGFR 52.94 55.88 BUN/Creatinine Ratio 29.4 H 30.8 H Glucose 99 117 H Calcium 8.7 8.7 Troponin I High Sens 11.0 B-Natriuretic Peptide 195 H Prostate Specific Ag 0.163 Nasal Screen MRSA (PCR) Positive A Diagnostic Findings EKG - my reading - pacing, no ST changes, no EKG changes in comparison to prior EKG PG Care Time/CCT Total # of Minutes Spent Total Time Spent with Patient: Total time spent is greater than 50% in coordination of care (as documented) at patient's floor/unit and/or counseling patient: Prolonged Care Time Prolonged Care Time: Yes Total Prolonged Care Time: 80 Coding Level of Care Code 28655 SUB INP/OBS CARE 3/50MIN (25 - SIGNIFICANT, SEPARATELY IDENTIFIABLE ) Diagnoses Chest heaviness R07.89 Acute respiratory failure with hypoxia J96.01 Acute on chronic systolic heart failure I50.23 Pneumonia of both lower lobes due to infectious organism J18.9 Laterality: bilateral Lung location: lower lobe of lung Pneumonia type: due to unspecified organism BPH loc w urin obs/LUTS N40.1 Catheter-associated urinary tract infection T83.511A; N39.0 CAD (coronary artery disease) I25.10 Presence of combination internal cardiac defibrillator (ICD) and pacemaker Z95.810 Sleep apnea G47.30 Paroxysmal atrial fibrillation I48.0 Parkinsonism G20.C History of venous thromboembolism Z86.718 Constipation K59.00 Additional Codes Prolonged Care Time - Prolonged Care Time: Yes ([id number]) (4) Pneumonia Laterality: bilateral Lung location: lower lobe of lung Pneumonia type: due to unspecified organism Qualified Code(s): J18.9 - Pneumonia, unspecified organism
[2024-07-25] MEDS: NITROGLYCERIN SL 0.4 MG/TAB TAB ONE (16:19)
[2024-07-25] MEDS: bisacodyL 10 MG SUPP PR PRN (16:33)
[2024-07-25] MEDS: NITROGLYCERIN 0.6 MG/1 TAB 100 TAB BTL SL PRN (16:33)
[2024-07-25] MEDS: PRAMIPEXOLE 0.375 MG PO SCH (17:26)
--- NOTE | 2024-07-25 17:40 | Cardiology Progress Note ---
Date of Service July 25, 2024 Assessment & Plan (1) Atypical chest pain: Plan: Unclear etiology. The EKG shows AV paced without diagnostic ST elevations. Would not be unreasonable to obtain an echo. Unsure if his discomfort is cardiac, anxiety, GI, etc. Once we have his labs back I will have better idea. He is not a great candidate for aggressive measures at this time given his additional comorbid disease but if he does have significantly worsening clinical status suspicious for AMI then I would take him to the [facility]. (2) CHF (congestive heart failure): Plan: By physical exam he does not have significant volume overload at this time. He does have known poor LV systolic function. Will get an echocardiogram to see if there is been any changes. May have pericardial effusion/pericarditis which could explain his atypical chest discomfort as well. (3) Paroxysmal atrial fibrillation: Plan: Continue anticoagulation and beta-clotilde. Plan If he does not have ACS and he improves by tomorrow then likely appropriate for discharge to rehab/fpc. He has an appointment scheduled in the heart failure clinic on August 01 at 1400. Admission and Anticipated Discharge Date Admission Date: July 23, 2024 Subjective Patient seen in his room this afternoon. He states he has not been feeling that well today. Blames most of his discomfort on constipation but also states he has some chest pressure since early in the morning. He stated that it does not feel like his prior heart pressure. He reported some shortness of breath with that as well but his oxygen saturations were 91% on room air. He was placed back on oxygen by the hospitalist and given nitroglycerin. This did not really help his chest pain although his breathing is better he thinks. The discomfort is low-grade and not really painful. He tells me that he just does not feel as well today. He reports there is plan for him to go to fpc after discharge. Labs are pending. Review of Systems Review of Systems: Negative except as per HPI Physical Exam Constitutional: Elderly, obese, chronically ill-appearing. No acute distress. Neck: No JVD Respiratory: Clear to auscultation bilaterally. No wheezing, rhonchi, or rales. Cardiovascular: Regular rate, irregular rhythm. No edema. Neurologic: Cognition is intact. Speech is fluent. No focal deficits. Psychiatric: A+Ox3, euthymic affect Results & Data Vital Signs (Past 12 Hours) Vital Signs Temp Pulse Pulse Resp BP Pulse Ox O2 Del Method 07/25/24 16:32 108/65 07/25/24 15:18 91 Room Air 07/25/24 11:44 36.6 C 82 18 100/64 92 Room Air 07/25/24 08:12 80 07/25/24 08:00 Nasal Cannula 07/25/24 07:49 36.7 C 82 18 114/71 95 Room Air O2 Flow Rate 07/25/24 16:32 07/25/24 15:18 07/25/24 11:44 07/25/24 08:12 07/25/24 08:00 2 07/25/24 07:49 PG Care Time/CCT Total # of Minutes Spent Total Time Spent with Patient: Total time spent is greater than 50% in coordination of care (as documented) at patient's floor/unit and/or counseling patient: Coding Level of Care Code 92192 SUB INP/OBS CARE 2/35MIN Diagnoses Atypical chest pain R07.89 CHF (congestive heart failure) I50.9 Paroxysmal atrial fibrillation I48.0
[2024-07-25 18:05] LABS: BUN Creatinine Ratio 30.8 (10-20); Calcium 8.7 mg/dl (8.6-10.3); Potassium 4.4 mmol/L (3.5-5.1)
[2024-07-25] MEDS: POLYETHYLENE (MIRALAX) 17 GM PACK PO SCH (21:41)
[2024-07-26 06:23] LABS: Basophils # (auto) 0.04 K/uL (0.00-0.20); Basophils % (auto) 0.5 %; Eosinophils # (auto) 0.41 K/uL (0.00-0.50); Eosinophils % (auto) 4.6 %; Hematocrit (blood only) 36.4 % (42.0-52.0); Hemoglobin 11.9 g/dl (14.0-18.0); Immature Granulocytes # (auto) 0.07 K/uL (0.01-0.20); Immature Granulocytes % (auto) 0.8 %; Lymphocytes # (auto) 1.69 K/uL (1.20-3.40); Lymphocytes % (auto) 19.1 %; Mean Corpuscular Hemoglobin 28.7 pg (25.0-34.0); Mean Corpuscular Hgb Conc 32.7 g/dL (32.0-36.0); Mean Corpuscular Volume 87.7 fL (80.0-100.0); Mean Platelet Volume 10.9 fL (9.4-12.4); Monocytes # (auto) 1.04 K/uL (0.11-0.59); Monocytes % (auto) 11.8 %; Neutrophils # (auto) 5.59 K/uL (1.40-6.50); Neutrophils % (auto) 63.2 %; Platelet Count 274 K/uL (130-400); RDW Coefficient of Variation 15.1 % (11.5-14.5); RDW Standard Deviation 48.2 fL (36.4-46.3); Red Blood Count 4.15 M/uL (4.70-6.10); White Blood Count 8.84 K/ul (4.8-10.8)
[2024-07-26 06:53] LABS: BUN Creatinine Ratio 29.9 (10-20); Calcium 8.9 mg/dl (8.6-10.3); Creatinine Clr Calc Pharmacy 64.1 ml/min; Potassium 4.2 mmol/L (3.5-5.1)
--- NOTE | 2024-07-26 08:32 | Electrocardiogram Report ---
Test Reason : Blood Pressure : */* mmHG Vent. Rate : 84 BPM Atrial Rate : 84 BPM P-R Int : 122 ms QRS Dur : 142 ms QT Int : 428 ms P-R-T Axes : 84 132 57 degrees QTcB Int : 505 ms Atrial-sensed ventricular-paced rhythm Abnormal ECG When compared with ECG of 23-Jul-2024 01:43, Vent. rate has decreased by 6 bpm Confirmed by Ankur Baker ([id number]) on 07/26/2024 8:31:54 AM Referred By: REFERRED SELF Confirmed By: Ankur Baker
--- NOTE | 2024-07-27 07:55 | Hospitalist Progress Note ---
Date of Service July 26, 2024 Assessment & Plan (1) Chest heaviness: (2) Acute respiratory failure with hypoxia: (3) Acute on chronic systolic heart failure: (4) Pneumonia: (5) BPH loc w urin obs/LUTS: (6) Catheter-associated urinary tract infection: (7) CAD (coronary artery disease): (8) Presence of combination internal cardiac defibrillator (ICD) and pacemaker: (9) Sleep apnea: (10) Paroxysmal atrial fibrillation: (11) Parkinsonism: (12) History of venous thromboembolism: (13) Constipation: Plan 79yo male - h/o CAD, ICD/pacer status, chronic systolic CHF, paroxysmal atrial tachycardia, cardiomyopathy, paroxysmal A-fib on Eliquis, sleep apnea, and chronic use of straight cath at home every other day to maintain urethral patency. Presented with worsening dyspnea. Evidence of UTI as well as possible pneumonia. #Chest heaviness/dyspnea at rest - * symptoms started AM of 07/25/24 * had numerous hours of persistent, continuous symptoms * no response to SL nitro x 2 * lungs clear, O2 was actually weaned off on 07/25 * troponin negative despite constant symptoms * BNP significantly down in comparison to prior BNP at admission * patient had blamed his symptoms on his constipation * has known CAD, but given how long he had had symptoms, given that he had no relief with nitro, and with negative troponin - highly unlikely to be ischemic * symptoms indeed RESOLVED after passing copious flatus and having a stool last pm * thus - perhaps the abdominal bloating/constipation was pressing on diaphragm causing his chest symptoms? #Acute hypoxic respiratory failure - * resolved * 2nd to pneumonia * 2nd to decompensated systolic CHF * weaned off O2 07/25/24 * typically only on NC O2 at night-time at home #Pneumonia - * CXR with possible RLL pneumonia * Had received zosyn since 07/23; changed to IV ertapenem 07/25/24 due to ESBL e.coli UTI * low suspicion for pseudomonas; ertapenem should suffice for pneumonia coverage * MRSA swab +; however, he has improved w/o MRSA coverage * will defer on MRSA coverage unless he worsens or symptoms persist * today is day #4 of IV abx therapy #UTI, catheter associated - * urine cx with e.coli, ESBL * d/c zosyn; changed to IV ertapenem daily x 7 days on 07/25/24 * PSA very low - doubt prostatitis #L heel wound - * Wound care consult appreciated * cont Darco shoes #Elevated troponin - * peak HS trop 24.2 * likely 2nd to myocardial demand ischemia in setting of pneumonia, UTI, decompensated CHF, etc. * see above re: chest symptoms on 07/25/24 * troponin on 07/25 fully negative #chronic systolic CHF - * EF 25-30% on echo 05/2024 * appears compensated again today * bumex 1mg daily * cont coreg at reduced dose due to low-normal BPs; ultimately try to titrate him back to his usual 25mg BID * holding Entresto due to low-normal BPs * appreciate Dr Negron's consultation and recs #PAF - * cont Eliquis * cont carvedilol at reduced dose due to low-normal or low BPs #Hyperlipidemia - * cont Rosuvastatin #Parkinsonism - * cont Pramipexole - patient's brought brand-name, extended release version from home * PT/OT #Chronic pain syndrome - oxycontin 10mg BID #GERD - cont Pantoprazole #Deconditioning - * due to recurrent illnesses, recurrent admissions - all in the setting of numerous comorbidities * cont PT/OT * needs rehab - he is agreeable #opiate-induced constipation - * severe * cont miralax BID/colace BID/senna BID * we discussed Movantik -- he should talk to his PCP about such OR see GI as outpatient to obtain such #ROSE - CPAP with blended O2 DVT proph - Eliquis 5mg BID updated at bedside 07/24, 07/25 and today 07/26 progressing nicely Admission and Anticipated Discharge Date Admission Date: July 23, 2024 Subjective feels much better today he had a good BM last night and has been passing copious flatus since the bowels moved the chest heaviness & dyspnea have improved/resolved minimal cough ate 100% of breakfast this am tele stable overnight (pacing) we had a discussion about Movantik for opiate induced constipation as he takes oxycodone BID every day Review of Systems Review of Systems: gen - no fevers or chills; some fatigue, weakness cv - no chest pain or heaviness today pulm - no dyspnea today GI - bloating improved; no N/V; +stool and copious flatus Physical Exam Physical Exam: gen - looks good today; comfortable; NAD neck - no obvious JVD mouth - MMM heart - RRR, s1 s2, no murmur lungs - mildly decreased BS both bases, otherwise no wheezing or rales; good airation; no increased work of breathing abd - soft NT ND BS+; no HSM ext - trace edema b/l shins/feet; pulses b/l feet 2+ psych - a/o x 3 musculo - hand deformities b/l neuro - tremors of hands & arms Results & Data Results & Data Vital Signs (Past 12 Hours) Vital Signs Temp Pulse Pulse Resp BP Pulse Ox O2 Del Method 07/26/24 15:17 36.4 C L 101 H 18 116/73 93 Room Air 07/26/24 11:12 36.4 C L 87 18 111/70 94 Room Air Laboratory Results Laboratory Results 07/26/24 05:44 WBC 8.84 RBC 4.15 L Hgb 11.9 L Hct 36.4 L MCV 87.7 MCH 28.7 MCHC 32.7 RDW Std Deviation 48.2 H RDW Coeff of Jerry 15.1 H Plt Count 274 MPV 10.9 Immature Gran % (Auto) 0.8 Neut % (Auto) 63.2 Lymph % (Auto) 19.1 [place] % (Auto) 11.8 Eos % (Auto) 4.6 Baso % (Auto) 0.5 Neut # (Auto) 5.59 Lymph # (Auto) 1.69 [place] # (Auto) 1.04 H Eos # (Auto) 0.41 Baso # (Auto) 0.04 Immature Gran # (Auto) 0.07 Sodium 137 Potassium 4.2 Chloride 103 Carbon Dioxide 26 Anion Gap 8 BUN 35 H Creatinine 1.17 Est Cr Clr Drug Dosing 64.1 eGFR 63.41 BUN/Creatinine Ratio 29.9 H Glucose 101 H Calcium 8.9 PG Care Time/CCT Total # of Minutes Spent Total Time Spent with Patient: Total time spent is greater than 50% in coordination of care (as documented) at patient's floor/unit and/or counseling patient: Coding Level of Care Code 97592 SUB INP/OBS CARE 2/35MIN Diagnoses Chest heaviness R07.89 Acute respiratory failure with hypoxia J96.01 Acute on chronic systolic heart failure I50.23 Pneumonia of both lower lobes due to infectious organism J18.9 Laterality: bilateral Lung location: lower lobe of lung Pneumonia type: due to unspecified organism BPH loc w urin obs/LUTS N40.1 Catheter-associated urinary tract infection T83.511A; N39.0 CAD (coronary artery disease) I25.10 Presence of combination internal cardiac defibrillator (ICD) and pacemaker Z95.810 Sleep apnea G47.30 Paroxysmal atrial fibrillation I48.0 Parkinsonism G20.C History of venous thromboembolism Z86.718 Constipation K59.00 (4) Pneumonia Laterality: bilateral Lung location: lower lobe of lung Pneumonia type: due to unspecified organism Qualified Code(s): J18.9 - Pneumonia, unspecified organism
--- NOTE | 2024-07-27 09:28 | XRay Report ---
XR chest 1V portable CLINICAL HISTORY: CHF COMPARISON STUDY: 07/24/2024 FINDINGS: Single view portable chest redemonstrates chronic cardiomegaly and pulmonary vascular conge stion. Small bilateral pleural effusions are present. Airspace opacity at the right lung base unchang ed. Left basilar discoid atelectasis stable. Triple lead pacemaker/defibrillator remains in place. IMPRESSION: Stable exam demonstrating cardiomegaly and pulmonary vascular congestion associated with small bilateral effusions likely a manifestation of CHF. Stable, superimposed right basilar infectio us or inflammatory infiltrate remains a consideration. ACT 112: Negative or not required by law. Electronically signed by: Rhonda Sterling M.D. 07/27/2024 9:27 AM
[2024-07-27] MEDS: carvediloL 25 MG TAB PO SCH (10:14)
--- NOTE | 2024-07-27 13:42 | Hospitalist Progress Note ---
Date of Service July 27, 2024 Assessment & Plan (1) Acute respiratory failure with hypoxia: Plan: Supplemental oxygen per nasal cannula as needed to keep saturation greater than 90%. Treat CHF (2) Acute on chronic systolic heart failure: Plan: Known ejection fraction of 25%. Chest x-ray done today, July 27, reveals evidence of CHF with bilateral pleural effusions. He is now on parenteral Lasix therapy. Monitor intake and output. Coreg has been uptitrated to his usual home dosage and Entresto has been restarted. (3) Pneumonia: Plan: Suspected right lower lobe pneumonia present on admission. However, this may simply be due to to his underlying CHF. (4) Chest heaviness: Plan: Present on admission. Now resolved. No evidence of acute coronary syndrome. (5) Catheter-associated urinary tract infection: Plan: ESBL E. coli isolated. He has now on intravenous ertapenem therapy (6) CAD (coronary artery disease): Plan: No current evidence of acute coronary syndrome. Telemetry. Continue current medical management (7) Sleep apnea: (8) Parkinsonism: Plan: Stable. Continue current medical management (9) History of venous thromboembolism: Plan: Stable. Continue Eliquis therapy Plan Parenteral Lasix diuresis ordered. Monitor intake and output. Serial chest x- rays. Will place [place] catheter if necessary. Case management is pursuing SNF placement [facility] at [facility]. Admission and Anticipated Discharge Date Admission Date: July 23, 2024 Subjective Alert and oriented. No distress. Unfortunately his chest x-ray done today, July 27, reveals evidence of congestive heart failure with bilateral pleural effusions. Oral Bumex has been discontinued and he is now on Lasix 40 mg IV every 12 hours. Will monitor intake and output. Entresto has been restarted since his known ejection fraction is low at 25%. Coreg has been uptitrated to 25 mg twice daily which is what he usually takes. He remains on ertapenem for the ESBL E. coli isolated in the urine. SNF placement remains pending Review of Systems 2 Review of Systems: Constitutionalno fever or chills ENTno blurred vision, no double vision, no epistaxis, no sore throat Respiratoryno cough, no wheezing. He is short of breath with minimal exertion Cardiacno palpitations, no chest pain, no syncope Sha nausea, vomiting, diarrhea, melena, hematochezia GUno urinary retention, no urinary incontinence, no dysuria, no hematuria Musculoskeletalno joint pain, no muscle tenderness Skinno bruising, no rashes, no pruritus. 2-3+ bilateral lower extremity pitting edema below the knees Neurono isolated weakness, no paresthesia Psychappears depressed Physical Exam 2 Physical Exam: General-alert and oriented x3, no fever, no chills HEENT-head atraumatic and normocephalic, pupils equal and reactive to light, extraocular muscles intact Neck-no lymphadenopathy or thyromegaly, trachea midline Chest-diminished breath sounds at both bases. Bilateral inspiratory rales. No rhonchi. No wheezing. Cardiac -regular rate and rhythm, normal S1 and S2 Abdomen-normal bowel sounds, no hepatosplenomegaly [id number]+ pitting edema bilateral lower extremities below the knees Neuro-cranial nerves II through XII intact, motor and sensory function within normal limits, strength symmetrical with generalized weakness, no focal deficits Psych-depressed affect Results & Data Results & Data Vital Signs (Past 12 Hours) Vital Signs Temp Pulse Pulse Resp BP Pulse Ox O2 Del Method 07/27/24 11:44 36.6 C 74 20 125/62 98 Room Air 07/27/24 08:00 36.5 C 70 18 131/71 96 CPAP 07/27/24 07:44 88 07/27/24 07:41 Room Air 07/27/24 03:25 20 96 07/27/24 03:09 36.4 C L 89 18 120/84 95 CPAP FiO2 07/27/24 11:44 07/27/24 08:00 07/27/24 07:44 07/27/24 07:41 07/27/24 03:25 30 07/27/24 03:09 Laboratory Results 07/26/24 05:44 07/26/24 05:44 PG Care Time/CCT Total # of Minutes Spent Total Time Spent with Patient: Total time spent is greater than 50% in coordination of care (as documented) at patient's floor/unit and/or counseling patient: Coding Level of Care Code 34257 SUB INP/OBS CARE 3/50MIN Diagnoses Acute respiratory failure with hypoxia J96.01 Acute on chronic systolic heart failure I50.23 Pneumonia of both lower lobes due to infectious organism J18.9 Laterality: bilateral Lung location: lower lobe of lung Pneumonia type: due to unspecified organism Chest heaviness R07.89 Catheter-associated urinary tract infection T83.511A; N39.0 CAD (coronary artery disease) I25.10 Sleep apnea G47.30 Parkinsonism G20.C History of venous thromboembolism Z86.718 (3) Pneumonia Laterality: bilateral Lung location: lower lobe of lung Pneumonia type: due to unspecified organism Qualified Code(s): J18.9 - Pneumonia, unspecified organism
[2024-07-27] MEDS: FUROSEMIDE 40 MG/4 ML VIAL IV ONE (14:43)
[2024-07-28 06:40] LABS: BUN Creatinine Ratio 28.8 (10-20); Calcium 9.2 mg/dl (8.6-10.3); Creatinine Clr Calc Pharmacy 72.2 ml/min; Potassium 3.7 mmol/L (3.5-5.1)
[2024-07-28] MEDS: FUROSEMIDE 40 MG/4 ML VIAL IV SCH (10:26)
--- NOTE | 2024-07-28 12:51 | Hospitalist Progress Note ---
Date of Service July 28, 2024 Assessment & Plan (1) Acute respiratory failure with hypoxia: Plan: Resolved. He is now on room air (2) Acute on chronic systolic heart failure: Plan: Known ejection fraction of 25%. Brisk diuresis with parenteral Lasix. Improved. Will repeat chest x-ray again tomorrowJuly 29. Monitor intake and output. Blood pressure remains acceptable after Coreg has been uptitrated to his usual home dosage and Entresto has been restarted. (3) Pneumonia: Plan: Suspected right lower lobe pneumonia present on admission. However, this may simply be due to to his underlying CHF. (4) Chest heaviness: Plan: Present on admission. Now resolved. No evidence of acute coronary syndrome. (5) Catheter-associated urinary tract infection: Plan: ESBL E. coli isolated. He has now on intravenous ertapenem therapy (6) CAD (coronary artery disease): Plan: No current evidence of acute coronary syndrome. Telemetry. Continue current medical management (7) Parkinsonism: Plan: Stable. Continue current medical management (8) History of venous thromboembolism: Plan: Stable. Continue Eliquis therapy Plan Continue parenteral Lasix diuresis. Repeat chest x-ray again tomorrowJuly 29. Probable discharge to [place] [facility] on Wednesday Admission and Anticipated Discharge Date Admission Date: July 23, 2024 Subjective Awake and alert. is at the bedside. He has had a brisk diuresis with the IV Lasix which we will continue. Will repeat chest x-ray again tomorrow, July 29. He remains on intravenous ertapenem for the ESBL E. coli UTI. Blood pressure is stable after uptitrating Coreg to his usual dose and restarting Entresto. Review of Systems 2 Review of Systems: Constitutionalno fever or chills ENTno blurred vision, no double vision, no epistaxis, no sore throat Respiratoryno cough, no wheezing. He is short of breath with minimal exertion Cardiacno palpitations, no chest pain, no syncope Sha nausea, vomiting, diarrhea, melena, hematochezia GUno urinary retention, no urinary incontinence, no dysuria, no hematuria Musculoskeletalno joint pain, no muscle tenderness Skinno bruising, no rashes, no pruritus. Edema in bilateral lower extremities has improved Neurono isolated weakness, no paresthesia Psychappears depressed Physical Exam 2 Physical Exam: General-alert and oriented x3, no fever, no chills HEENT-head atraumatic and normocephalic, pupils equal and reactive to light, extraocular muscles intact Neck-no lymphadenopathy or thyromegaly, trachea midline Chest-diminished breath sounds at both bases. Bilateral inspiratory rales. No rhonchi. No wheezing. Cardiac -regular rate and rhythm, normal S1 and S2 Abdomen-normal bowel sounds, no hepatosplenomegaly Extremities-1+ pitting edema bilateral lower extremities below the knees Neuro-cranial nerves II through XII intact, motor and sensory function within normal limits, strength symmetrical with generalized weakness, no focal deficits Psych-depressed affect Results & Data Results & Data Vital Signs (Past 12 Hours) Vital Signs Temp Pulse Pulse Resp BP Pulse Ox O2 Del Method 07/28/24 10:39 36.4 C L 88 18 113/80 92 Room Air 07/28/24 07:11 81 07/28/24 07:06 36.5 C 84 18 111/76 94 Room Air 07/28/24 03:58 36.6 C 90 19 106/74 92 Room Air, BiPAP 07/28/24 02:30 20 FiO2 07/28/24 10:39 07/28/24 07:11 07/28/24 07:06 07/28/24 03:58 07/28/24 02:30 30 Laboratory Results 07/26/24 05:44 07/28/24 05:54 PG Care Time/CCT Total # of Minutes Spent Total Time Spent with Patient: Total time spent is greater than 50% in coordination of care (as documented) at patient's floor/unit and/or counseling patient: Coding Level of Care Code 30306 SUB INP/OBS CARE 2/35MIN Diagnoses Acute respiratory failure with hypoxia J96.01 Acute on chronic systolic heart failure I50.23 Pneumonia of both lower lobes due to infectious organism J18.9 Laterality: bilateral Lung location: lower lobe of lung Pneumonia type: due to unspecified organism Chest heaviness R07.89 Catheter-associated urinary tract infection T83.511A; N39.0 CAD (coronary artery disease) I25.10 Parkinsonism G20.C History of venous thromboembolism Z86.718 (3) Pneumonia Laterality: bilateral Lung location: lower lobe of lung Pneumonia type: due to unspecified organism Qualified Code(s): J18.9 - Pneumonia, unspecified organism
[2024-07-29 04:55] LABS: BUN Creatinine Ratio 27.5 (10-20); Calcium 9.1 mg/dl (8.6-10.3); Creatinine Clr Calc Pharmacy 68.6 ml/min; Potassium 3.9 mmol/L (3.5-5.1)
--- NOTE | 2024-07-29 07:15 | XRay Report ---
EXAM: XR chest 1V portable CLINICAL HISTORY: CHF TECHNIQUE: Radiograph of chest was acquired. COMPARISON: 07/23/2024 00:36:25 [employer] FINDINGS: Large left pleural effusion. Mild blunting of right costophrenic angle. Mild cardiomegaly. The lungs are clear and well-expanded with no pulmonary infiltrate. No acute osseous abnormality. IMPRESSION: 1. Large left pleural effusion. New finding 2. Mild blunting of right costophrenic angle- likely small pleural effusion/thickening. New finding 3. Stable Mild cardiomegaly. Electronically signed by Buddy Harry 07-29-2024 07:15 AM
--- NOTE | 2024-07-29 13:22 | XCELERA ---
[id number] \\[id number]
--- NOTE | 2024-07-29 14:53 | Hospitalist Progress Note ---
Date of Service July 29, 2024 Assessment & Plan (1) Acute respiratory failure with hypoxia: Plan: Resolved. He is now on room air (2) Acute on chronic systolic heart failure: Plan: Known ejection fraction of 25%. Brisk diuresis with parenteral Lasix. Improved. Lasix down titrated today, July 29, to once daily dosing. Monitor intake and output. Blood pressure remains low normal but acceptable after Coreg has been uptitrated to his usual home dosage and Entresto has been restarted. (3) Pneumonia: Plan: Suspected right lower lobe pneumonia present on admission. However, this may simply be due to to his underlying CHF with right effusion and atelectasis. (4) Chest heaviness: Plan: Present on admission. Now resolved. No evidence of acute coronary syndrome. (5) Catheter-associated urinary tract infection: Plan: ESBL E. coli isolated. He has now on intravenous ertapenem therapy, day 5. He will complete his antibiotic course this admission (6) CAD (coronary artery disease): Plan: No current evidence of acute coronary syndrome. Telemetry. Continue current medical management (7) Parkinsonism: Plan: Stable. Continue current medical management (8) History of venous thromboembolism: Plan: Stable. Continue Eliquis therapy Plan Anticipated discharge to [place] [facility] on July 31 Admission and Anticipated Discharge Date Admission Date: July 23, 2024 Subjective Alert. No distress. is at the bedside. Continued negative intake and output. Lasix down titrated to once daily dosing. Blood pressure is low but stable on his Coreg and Entresto. Cardiac echo reveals ejection fraction of 25% with global hypokinesis and inferior wall akinesis with mild MR. He remains on room air. Ertapenem day 5 for ESBL E. coli CAUTI. He will complete his IV antibiotic course during this hospitalization. Probable discharge to [facility] on July 31 Review of Systems 2 Review of Systems: Constitutionalno fever or chills ENTno blurred vision, no double vision, no epistaxis, no sore throat Respiratoryno cough, no wheezing. He is short of breath with minimal exertion Cardiacno palpitations, no chest pain, no syncope Sha nausea, vomiting, diarrhea, melena, hematochezia GUno urinary retention, no urinary incontinence, no dysuria, no hematuria Musculoskeletalno joint pain, no muscle tenderness Skinno bruising, no rashes, no pruritus. Edema in bilateral lower extremities has improved Neurono isolated weakness, no paresthesia Psychappears depressed Physical Exam 2 Physical Exam: General-alert and oriented x3, no fever, no chills HEENT-head atraumatic and normocephalic, pupils equal and reactive to light, extraocular muscles intact Neck-no lymphadenopathy or thyromegaly, trachea midline Chest-diminished breath sounds at both bases. Bilateral inspiratory rales. No rhonchi. No wheezing. Cardiac -regular rate and rhythm, normal S1 and S2 Abdomen-normal bowel sounds, no hepatosplenomegaly Extremities-1+ pitting edema bilateral lower extremities below the knees Neuro-cranial nerves II through XII intact, motor and sensory function within normal limits, strength symmetrical with generalized weakness, no focal deficits Psych-depressed affect Results & Data Results & Data Vital Signs (Past 12 Hours) Vital Signs Temp Pulse Pulse Resp BP BP Pulse Ox 07/29/24 11:46 91 H 18 93/66 L 93 07/29/24 08:00 07/29/24 06:58 36.5 C 97 H 20 101/66 90 07/29/24 04:00 36.6 C 71 19 96/63 L 96 07/29/24 03:37 70 21 92 O2 Del Method FiO2 07/29/24 11:46 Room Air 07/29/24 08:00 Room Air 07/29/24 06:58 Room Air 07/29/24 04:00 BiPAP 07/29/24 03:37 30 Laboratory Results 07/26/24 05:44 07/29/24 03:58 PG Care Time/CCT Total # of Minutes Spent Total Time Spent with Patient: Total time spent is greater than 50% in coordination of care (as documented) at patient's floor/unit and/or counseling patient: Coding Level of Care Code 38172 SUB INP/OBS CARE 2/35MIN Diagnoses Acute respiratory failure with hypoxia J96.01 Acute on chronic systolic heart failure I50.23 Pneumonia of both lower lobes due to infectious organism J18.9 Laterality: bilateral Lung location: lower lobe of lung Pneumonia type: due to unspecified organism Chest heaviness R07.89 Catheter-associated urinary tract infection T83.511A; N39.0 CAD (coronary artery disease) I25.10 Parkinsonism G20.C History of venous thromboembolism Z86.718 (3) Pneumonia Laterality: bilateral Lung location: lower lobe of lung Pneumonia type: due to unspecified organism Qualified Code(s): J18.9 - Pneumonia, unspecified organism
[2024-07-30 04:38] LABS: BUN Creatinine Ratio 31.4 (10-20); Creatinine Clr Calc Pharmacy 73.2 ml/min; Potassium 4.2 mmol/L (3.5-5.1)
[2024-07-30] MEDS: FUROSEMIDE 40 MG/4 ML VIAL IV SCH (09:34)
--- NOTE | 2024-07-30 11:36 | Hospitalist Progress Note ---
Date of Service July 30, 2024 Assessment & Plan (1) Acute respiratory failure with hypoxia: Plan: Resolved. He is now on room air (2) Acute on chronic systolic heart failure: Plan: Known ejection fraction of 25%. He experienced a brisk diuresis with parenteral Lasix. CHF has improved. Lasix down titrated on July 29 to once daily dosing. Monitor intake and output. Blood pressure remains low normal and Entresto dosage has been down titrated today, July 30. Continue Coreg at current dosage. (3) Pneumonia: Plan: Suspected right lower lobe pneumonia present on admission. However, this may simply be due to to his underlying CHF with right effusion and atelectasis. (4) Chest heaviness: Plan: Present on admission. Now resolved. No evidence of acute coronary syndrome. (5) Catheter-associated urinary tract infection: Plan: ESBL E. coli isolated. He has now on intravenous ertapenem therapy, day 6. He will complete his antibiotic course this admission (6) CAD (coronary artery disease): Plan: No current evidence of acute coronary syndrome. Telemetry. Continue current medical management (7) Parkinsonism: Plan: Stable. Continue current medical management (8) History of venous thromboembolism: Plan: Stable. Continue Eliquis therapy Plan Anticipated discharge to [facility] on July 31 Admission and Anticipated Discharge Date Admission Date: July 23, 2024 Subjective No distress. Alert and oriented. is at the bedside. Blood pressure is running on the low side and Entresto dosage has been down titrated. He will complete his ertapenem course for the ESBL E. coli CAUTI. Currently day 6. Chest x-ray obtained on July 29 looks better and chest x-ray will be repeated tomorrow, July 31. Hopefully he can go to [facility] tomorrow, July 31. Review of Systems 2 Review of Systems: Constitutionalno fever or chills ENTno blurred vision, no double vision, no epistaxis, no sore throat Respiratoryno cough, no wheezing. He is short of breath with minimal exertion Cardiacno palpitations, no chest pain, no syncope Sha nausea, vomiting, diarrhea, melena, hematochezia GUno urinary retention, no urinary incontinence, no dysuria, no hematuria Musculoskeletalno joint pain, no muscle tenderness Skinno bruising, no rashes, no pruritus. Edema in bilateral lower extremities has improved Neurono isolated weakness, no paresthesia Psychappears depressed Physical Exam 2 Physical Exam: General-alert and oriented x3, no fever, no chills HEENT-head atraumatic and normocephalic, pupils equal and reactive to light, extraocular muscles intact Neck-no lymphadenopathy or thyromegaly, trachea midline Chest-diminished breath sounds at both bases. Bilateral inspiratory rales. No rhonchi. No wheezing. Cardiac -regular rate and rhythm, normal S1 and S2 Abdomen-normal bowel sounds, no hepatosplenomegaly Extremities-1+ pitting edema bilateral lower extremities below the knees Neuro-cranial nerves II through XII intact, motor and sensory function within normal limits, strength symmetrical with generalized weakness, no focal deficits Psych-depressed affect Results & Data Results & Data Vital Signs (Past 12 Hours) Vital Signs Temp Pulse Pulse Resp BP Pulse Ox O2 Del Method 07/30/24 10:57 36.7 C 81 19 98/66 L 92 Nasal Cannula 07/30/24 07:05 36.6 C 81 18 95/66 L 92 Room Air 07/30/24 03:00 36.4 C L 79 19 96/68 L 97 BiPAP 07/30/24 02:10 94 H 21 96 07/30/24 00:00 87 FiO2 07/30/24 10:57 07/30/24 07:05 07/30/24 03:00 07/30/24 02:10 30 07/30/24 00:00 Laboratory Results 07/26/24 05:44 07/30/24 03:39 PG Care Time/CCT Total # of Minutes Spent Total Time Spent with Patient: Total time spent is greater than 50% in coordination of care (as documented) at patient's floor/unit and/or counseling patient: Coding Level of Care Code 43672 SUB INP/OBS CARE 3/50MIN Diagnoses Acute respiratory failure with hypoxia J96.01 Acute on chronic systolic heart failure I50.23 Pneumonia of both lower lobes due to infectious organism J18.9 Laterality: bilateral Lung location: lower lobe of lung Pneumonia type: due to unspecified organism Chest heaviness R07.89 Catheter-associated urinary tract infection T83.511A; N39.0 CAD (coronary artery disease) I25.10 Parkinsonism G20.C History of venous thromboembolism Z86.718 (3) Pneumonia Laterality: bilateral Lung location: lower lobe of lung Pneumonia type: due to unspecified organism Qualified Code(s): J18.9 - Pneumonia, unspecified organism
[2024-07-30] MEDS: VALSARTAN/SACUBITRIL 26/24MG TAB PO SCH (21:26)
[2024-07-31 06:40] LABS: BUN Creatinine Ratio 30.5 (10-20); Creatinine Clr Calc Pharmacy 79.2 ml/min; Potassium 4.2 mmol/L (3.5-5.1)
[2024-07-31] MEDS: carvediloL 12.5 MG TAB PO SCH (08:38)
[2024-07-31] MEDS: BUMETANIDE 1 MG TAB PO SCH (08:40)
--- NOTE | 2024-07-31 08:55 | XRay Report ---
XR chest 1V portable CLINICAL HISTORY: CHF COMPARISON STUDY: 07/29/2024 FINDINGS: Stable pacemaker. Stable cardiomegaly without pulmonary vascular congestion. Stable hazy op acity in the lung bases with obscuration of the diaphragm, left greater than right. No pneumothorax. IMPRESSION: Stable exam. ACT 112: Negative or not required by law. Electronically signed by: Rodríguez Roldan M.D. 07/31/2024 8:53 AM
[2024-07-31 12:05] VITALS: RESP 20; TEMP 97.9; O2SAT 96
[2024-07-31 13:10] VITALS: BP 98/66; PULSE 75
--- NOTE | 2024-07-31 17:12 | Discharge Summary ---
Discharge Summary Date of Service July 31, 2024 Principal Dx & Hospital Course #1 = Principal Diagnosis (1) Acute respiratory failure with hypoxia: Resolved or near resolved. He has been on room air or 2L pnc last 24h. Euvolemic on exam with some atelectasis. Usually uses 2L nocturnally at home (2) Acute on chronic systolic heart failure: Known ejection fraction of 25%. He experienced a brisk diuresis with parenteral Lasix. CHF has improved. Lasix down titrated on July 29 to once daily dosing. Monitor intake and output. Blood pressure low normal, reduced carvedilol and resumed home dose entresto per recruiting intern's recs. Plan to continue previous home dose of bumex 1 mg daily, monitor weight/edema and add extra 1 mg daily PRN. Recommend BMP in 1 week and follow up in CHF clinic at [facility] and with Dr. Negron after SNF discharge (3) Catheter-associated urinary tract infection: ESBL E. coli isolated. Completed course with seven days of ertapenem, last dose 07/31 Long standing urinary retention, continue finasteride, typically at home self- caths several times a day, ray was placed by ID 06/15/2024, recommended to continue catheter and follow up with urologist at the [facility] (4) Pneumonia: Suspected right lower lobe pneumonia present on admission. However, this may simply be due to to his underlying CHF with right effusion and atelectasis. Regardless he had a course of antibiotics for CAUTI that covered possible pneumonia (5) Chest heaviness: Present on admission. Now resolved. No evidence of acute coronary syndrome. Probably was caused by CHF exacerbation (6) CAD (coronary artery disease): No current evidence of acute coronary syndrome. Continue current medical management Has ICD/pacer Minimally elevated troponin from myocardial demand ischemia from CHF exacerbation History of paroxysmal afib, hx ablation, on B-clotilde and anticoagulation (7) Parkinsonism: Stable. Continue pramipexole (8) History of venous thromboembolism: Stable. Continue Eliquis therapy Plan COPD - not currently in exacerbation - continue MDIs and PRN bronchodilators Morbid obesity BMI 31 - affects his respiratory status ROSE - continue CPAP left heel wound present on admission - continue wound care, pressure offloading chronic pain syndrome on opioid therapy - cont oxycontin Notes For Next Care Provider unclear whether he needs a higher baseline diuretic dose BMP in a week (increasing/resuming entresto) continue ray Admission HPI Per Admitting Provider 79-year-old male PMHx CAD s/p defibrillator and pacer, CHF, paroxysmal atrial tachycardia, cardiomyopathy, A-fib on Eliquis, sleep apnea, and centrilobular emphysema presenting via EMS for SOB 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 Patient reports that SOB has been worsening since that time. Upon EMS arrival, patient was on 15L via NRB with saturations in the low 80s, and he was then placed on BiPAP which allowed saturations increased to mid 90s. He also received DuoNeb via EMS. is present in room during time of visit and helps provide history. States that the night VISUAL MERCHANDISING DIRECTOR he was cold and shaking, stating that she had to continue to cover him up with blankets. After a while, she decided to take his temperature which was 101 F. States that she does often have to straight cath him every other day and that she was concerned the patient may have a new urinary tract infection. Patient reports taking extra dose of Bumex at night prior to arrival because he had a greater than 3 pound weight gain, but states that the fluid did not feel as though it was coming off as it normally does. Patient does also admit to a left heel wound which he is being followed by wound care for. Overall states that his only concern is that his hands hurt because they feel puffy and he just feels weak after everything. Did have a little bit of nausea without vomiting. Denying chest pain, palpitations, abdominal pain, vomiting/diarrhea/constipation, LUTS, syncope, numbness/tingling, or URI symptoms. ED evaluation reveals leukocytosis 14k, H&H 11.3/35.4, POC blood gases pH 7.49, pCO2 26, pO2 104; CMP anion gap 12, BUN 31, BUN/creatinine ratio 28.7, glucose 166, AST 12; lactate 2.4; initial troponin 24.2, repeat 23.5; BNP 733; procalcitonin 0.78; UA with nitrate, blood, LE, WBC, and presence of bacteria; BioFire negative; CXR reveals interval progression of opacification seen in left lower hemothorax, interval resolution of opacity seen in RL zone; EKG was ventricular paced rhythm with frequent AV dual paced complexes at 90 bpm.; Provided with Zosyn 4.5 mg IV and ondansetron [address] Calix's attestation for adjustments/additions to treatment plan. Discharge Exam Last 24h vitals reviewed GEN: no acute distress, sitting in chair eating breakfast HEENT: pupils equal, sclerae anicteric, moist MM RESP: normal WOB, CTAB except minimal bibasilar crackle, prolonged exp phase CV: reg no mrg no JVD ABD: soft/nt/nd +BT : ray SKIN: warm and dry, no generalized rashes, no LE edema NEURO: AOx person, place, and basic situation. Face symmetric, speech normal, moves 4 ext spontaneously and equally, bradykinesia L heel dressed, no erythema or drainage Discharge Plan Discharge Items Patient Disposition: [facility] Reason For Visit: HYPOXIC RESP FAILURE Discharge Diagnosis: Acute hypoxic respiratory failure, Acute on chronic systolic heart failure, Possible pneumonia, ESBL E. coli CAUTI, Parkinsonism Activity: Per Instructions section Non-emergency contact: Primary Care Provider and Wire Coating Machine Operator Call non-emergency contact if: you have any medication questions and your symptoms worsen Follow-up/Referrals: Tramaine Peterson MD [Primary Care Provider] - Christelle Isabel PA-C [Physician Industrial Garage Servicer] - 08/07/24 10:30 am (Congestive Heart Failure Program Appointment Information Early follow up is essential to managing your heart failure. An appointment has been scheduled for you with the [facility] Heart Failure Program within 7 days of discharge. Anticipate this visit to be 30-60 minutes long. Please expect a supervisor sawing and assembly phone call from one of our nurses approximately 48 hours from discharge. They will also be placing an order for lab work to be completed 1-2 days prior to your heart failure follow up appointment. Please be sure to have this done so we can go over the results when you come in. Office Location The cardiology office building is located in front of the hospital at [address] Bring the following with you to your follow-up doctor appointments: Please bring your daily weight log any discharge paperwork all of your medication bottles with you to this visit. ) Diet: Low Sodium (2gm) Diet Texture: Dental soft (bite-sized) Addtl Attending Provider Instructions: PT and OT evaluate and treat supplemental O2 as needed to keep sats >90% (has been on room air to 2L recently) baseline needs 2L continuous at night continue nocturnal CPAP for ROSE at home settings Monitor weight and edema 3x a week, adjust diuretics accordingly. If weight increases by 3 pounds or more in a few days or by 5 pounds or more in a week, give extra dose daily until weight is back to baseline Completed 7 days of ertapenem for ESBL E. coli CAUTI on 07/[address] Negron and [facility] heart failure clinic after discharge Continue wound care for L heel Pending Studies at Discharge: No Stand-Alone Forms: My [facility] Skilled Items Patient informed of condition?: Yes DNR: No Discharge Level of Care: Skilled Communicable Disease: Yes (ESBL E. coli) Discharge Prognosis: Improving Lines: None Urinary Catheter: Yes Medications and DC Order Prescriptions: New carvedilol 12.5 mg Tablet 12.5 mg PO BID Qty: 0 0RF ipratropium-albuterol 0.5 mg-3 mg(2.5 mg base)/3 mL Solution For Nebulization 3 ml NEB Q6R PRNQty: 0 0RF bisacodyl 10 mg Suppository 10 mg TN DAILY PRN (Reason: constipation) Qty: 0 0RF nitroglycerin [Nitrostat] 0.6 mg Tablet, Sublingual 0.6 mg sublingual Q5M PRNQty: 0 0RF polyethylene glycol 3350 [Miralax] 17 gram Powder In Packet 17 g PO BID Qty: 0 0RF Continued bumetanide 1 mg tablet 1 mg PO QAM Qty: 90 3RF potassium chloride 20 mEq tablet extended release 20 meq PO BID Qty: 200 3RF sacubitril-valsartan 49-51 mg tablet 1 tab PO AMPM Hold Instructions: hold until you see your outpatient doctors cetirizine 10 mg tablet 10 mg PO QDB bupropion HCl 100 mg tablet 100 mg PO BID Rx Instructions: TAKE THIS MEDICATION EVERY MORNING AND AT NOON albuterol sulfate 90 mcg/actuation HFA aerosol inhaler 2 puffs inhalation Q6H PRN (Reason: Shortness Of Breath Or Wheezing) docusate sodium 100 mg capsule 100 mg PO BID Hold Instructions: Resume on 06/27/24. finasteride 5 mg tablet 5 mg PO QAM pantoprazole 40 mg tablet,delayed release (DR/EC) 40 mg PO BID Eliquis 5 mg tablet 5 mg PO BID Qty: 180 3RF PreserVision AREDS 4,296 mcg-226 mg-90 mg capsule 1 cap PO BID aspirin 81 mg Tablet,Delayed Release (Dr/Ec) 81 mg PO QAM sennosides 8.6 mg Tablet 8.6 mg PO BID Hold Instructions: Resume on 06/27/24. Refresh Lacri-Lube 56.8-42.5 % Ointment 1 applic OPHTHALMIC (EYE) HS Rx Instructions: 1/8th INCH IN EACH EYE Stiolto Respimat 2.5-2.5 mcg/actuation Mist 2 puff INHALATION QAM epinephrine 0.3 mg/0.3 mL Auto-Injector 0.3 mg IM DIRECTED PRN (Reason: sEVERE ALLERGIC REACTION) nystatin 100,000 unit/gram Ointment 1 applic TOPICAL BID PRN (Reason: Jenny skin infection) ondansetron HCl 8 mg Tablet 4 mg PO Q8H PRN (Reason: Nausea And Vomiting) aluminum hydroxide gel 320 mg/5 mL Suspension 960 mg PO DAILY PRN (Reason: Heartburn) rosuvastatin 20 mg Tablet 10 mg PO DAILY pramipexole 0.375 mg tablet extended release 24 hr 0.375 mg PO QAM Rx Instructions: Last filled 12/2023 x90 day supply. Original Directions: 0.375mg by mouth daily oxycodone [OxyContin] 10 mg Tablet,Oral Only,Ext.Rel.12 Hr 10 mg PO BID metoclopramide HCl 5 mg Tablet 5 mg BID Discontinued carvedilol 25 mg tablet 25 mg PO BID Rx Instructions: Last filled 02/18/24 x90 day supply. Original Directions: 25mg po bid Discharge Orders: Discharge Order- CHF (Routine); Ordered 07/31/24 Ordered By: Malena Recinos/Other Patient Handouts: Prediabetes, 5 Steps for Eating Healthier Admission Data Admit Date/Time: 07/23/24 04:26 Attending Provider: Malena Ramos Admit Provider: Dimitrios Calix Primary Care Provider: Tramaine Peterson Other Providers: Dimitrios Calix; [place]; Royce Negron; Christelle Isabel Other Interventions: Discharge Summary Assessment (RN) Last Done: 07/31/24 13:08 Hospital Stay Data Consultations 07/23/24 03:18 ED Decision to Admit Stat 07/24/24 20:01 Consult Cardiology Routine 07/31/24 10:34 [facility] CHF Program Referral Routine Pending Results Patient Have Any Pending Studies at Discharge: No Discharge Instructions Given to Patient (Per Discharging Provider) PT and OT evaluate and treat supplemental O2 as needed to keep sats >90% (has been on room air to 2L recently) baseline needs 2L continuous at night continue nocturnal CPAP for ROSE at home settings Monitor weight and edema 3x a week, adjust diuretics accordingly. If weight increases by 3 pounds or more in a few days or by 5 pounds or more in a week, give extra dose daily until weight is back to baseline Completed 7 days of ertapenem for ESBL E. coli CAUTI on 07/[address] Negron and [facility] heart failure clinic after discharge Continue wound care for L heel Total Time Total Time Spent Total Time Spent (In Minutes): I personally spent: [50] minutes today on clinical care activities including: reviewing chart notes and vital signs [x] reviewing labs [x] discussion with care worker examining and counseling the patient [x] writing prescriptions, discharge instructions documentation Coding Level of Care Code 82807 INP/OBS DISCH >30 MIN Diagnoses Acute respiratory failure with hypoxia J96.01 Acute on chronic systolic heart failure I50.23 Catheter-associated urinary tract infection T83.511A; N39.0 Pneumonia of both lower lobes due to infectious organism J18.9 Laterality: bilateral Lung location: lower lobe of lung Pneumonia type: due to unspecified organism Chest heaviness R07.89 CAD (coronary artery disease) I25.10 Parkinsonism G20.C History of venous thromboembolism Z86.718
== END 2024-07-31 14:14 | DRG 280 ==
LOC: ED 01:38 → 4W 04:26 → SUATTDRO 04:26 → 4W 04:49

== ENCOUNTER 2024-08-12 11:27 | Inpatient (IN) ==
--- NOTE | 2024-08-12 11:43 | Emergency Department Note ---
Impression & Plan Sepsis, Pneumonia, Acute exacerbation of CHF (congestive heart failure), Complicated urinary tract infection, Leukocytosis, Elevated lactic acid level, Acute hypoxemic respiratory failure, Elevated brain natriuretic peptide (BNP) level ED Provider Note HISTORY OF PRESENT ILLNESS: Patient is a 79-year-old male presenting with shakiness and abnormal vital signs. Patient presents from [facility], where they reportedly were doing rounds and doing a set of vitals on the patient and his heart rate was in the 200s and his pulse ox was in the 40s. Patient reportedly was alert and oriented. On arrival to the ER, the patient reports he has been feeling very shaky and unsteady throughout the morning. Denies any recent fevers. He reports he was seen at the [facility] yesterday and was feeling well. He denies any chest pain but does report some shortness of breath. Denies any cough. Denies any abdominal pain, nausea or vomiting. He reports urinary frequency and some slight dysuria. ROS: as above PHYSICAL EXAM: Constitutional: Patient appears in no acute distress. HENT: Head: Normocephalic and atraumatic. Eyes: EOMI, PERRL Mouth/Throat: Mucous membranes moist. Neck: Trachea midline. Neck supple. Cardiovascular: Paced rhythm. No murmurs, rubs or gallops. Intact distal pulses. Pulmonary/Chest: No respiratory distress. Breath sounds clear and equal bilaterally. No wheezes or rales. Abdominal: Abdomen soft, no tenderness, rebound or guarding. Musculoskeletal: No edema, tenderness or deformity noted. Skin: Warm and dry. No rash, erythema, pallor or cyanosis Psychiatric: Appropriate mood and affect for situation. Neurological: Alert and keenly responsive. CN II-XII grossly intact, moving all extremities equally and fully. MDM: - Vitals signs showed tachycardia, tachypnea and hypoxia. - History obtained via patient. History as above. - Chronic conditions affecting care: Afib; cardiomyopathy; CAD (s/p PCI)'; HFrEF - Differential diagnoses include, but are not limited to: Congestive heart failure; acute coronary syndrome; COPD/asthma exacerbation; pulmonary edema; pulmonary embolism; pneumonia; pneumothorax; viral syndrome - Order placed for continuous cardiac monitoring. At this time, monitor showed rate of 96 bpm with paced rhythm, per my interpretation. - External medical records reviewed. Discharge summary dated/10/2024 was reviewed. Patient was admitted for acute respiratory failure with hypoxia. He has a known EF of 25%. - EKG image interpreted by myself showed paced rhythm. Rate 99 bpm. - Laboratory workup interpreted by myself showed leukocytosis (WBC 18.73) with neutrophil predominance; elevated INR (1.2); elevated lactate (2.2); normal electrolytes; normal troponin; elevated BNP (833); normal procalcitonin - Patient had a repeat lactate drawn that was up to 4.5. However, think this was a lab draw error and a repeat immediately drawn after that was at 2.5. - CXR image interpreted by myself shows pulmonary vascular congestion and what looks like a right lower lobe pneumonia, per my interpretation. - Blood cultures obtained - On review of patient's chart, he has grown ESBL E. coli in his urine and required ertapenem during his last admission. IV ertapenem was ordered for antibiotic therapy. - Fluids for sepsis resuscitation were not obtained, given patient's fluid overload status and significantly low ejection fraction of 25% on previous echo from 07/29/2024 - Discussion was had with director case about patient's case and need for admission - Hospitalist consulted for admission - Patient admitted to [facility] service for further evaluation and management. I have personally spent 43 minutes of critical care time in the direct management of this patient. This includes bedside care, interpretation of diagnostic studies, and testing, discussion with consultants, patient, and family members, and other required patient management activities. This 43 minutes is in excess of all separately billable procedures. ASSESSMENT AND PLAN: Diagnosis: Sepsis; pneumonia; complicated UTI; acute hypoxic respiratory failure; acute CHF exacerbation; leukocytosis; elevated BNP; elevated lactic acid level Plan: Admit Past Med/Surg History Problem List (Updated 08/12/24 @ 15:18 by Bailey Lomas MD) Elevated brain natriuretic peptide (BNP) level (Acute) Acute hypoxemic respiratory failure (Acute) Elevated lactic acid level (Acute) Leukocytosis (Acute) Complicated urinary tract infection (Acute) Acute exacerbation of CHF (congestive heart failure) (Acute) Pneumonia (Acute) Sepsis (Acute) HFrEF (heart failure with reduced ejection fraction) History of venous thromboembolism BPH loc w urin obs/LUTS Respiratory failure (Acute) CAD (coronary artery disease) s/p stent 2010 Sleep apnea bipap Presence of combination internal cardiac defibrillator (ICD) and pacemaker first placed 2010 @ [facility] replaced in 2014 & 2021 @ [facility]--biventricular [employer]. reports last check 11/25/22. Paroxysmal atrial fibrillation Anticoagulant long-term use PAT (paroxysmal atrial tachycardia) Cardiomyopathy Parkinsonism Stage III pressure ulcer of buttock (Acute) Centrilobular emphysema Bilateral foot-drop Biliary dyskinesia (Chronic) Idiopathic peripheral neuropathy (Acute) Cervical spondylosis without myelopathy (Acute) Cervical radiculopathy (Acute) Complex renal cyst Ulnar neuropathy of both upper extremities Agent orange exposure Balance problem Elevated PSA Atherogenic dyslipidemia Cervicogenic headache Spasticity upper limbs Medical History (Updated 08/12/24 @ 15:18 by Bailey Lomas MD) Atrial tachycardia CHF (congestive heart failure) Tachycardia Pressure ulcer of right heel, stage 4 Benign essential hypertension Ischemic cardiomyopathy Euvolemic at 11/23/22 cardio appt Elevated INR Near syncope Tachycardia Leg pain Elevated lactic acid level Elevated INR Cellulitis Unstageable pressure ulcer of right heel Unstageable pressure ulcer of left heel Hypoxia Vomiting Acute kidney injury Elevated troponin Acute kidney failure Acute UTI Sepsis Severe sepsis Encounter for pre-operative examination Intrinsic minus hand POWERS (dyspnea on exertion) Preop testing Episode of confusion Right upper quadrant abdominal pain Hand laceration Dog bite Chest pain Cellulitis of left arm Peripheral arterial disease Hypertension Tremor ICD (implantable cardioverter-defibrillator) in place Neuropathy Complex sleep apnea syndrome NYHA class 4 acute on chronic systolic heart failure History of kidney stones Emphysema lung Legally blind Chronic back pain History of urinary self-catheterization self caths every other night History of DVT of lower extremity 2010 Macular degeneration Hearing deficit Depression Migraine Myocardial Infarction 10/2010--follows with Dr. Abreu Pulmonary embolism 1992 and 2010 after heart attack--follows with Dr. Abreu Asthma inhaler prn Surgical History Presence of biventricular automatic cardioverter/defibrillator (AICD) S/P epidural steroid injection History of foot surgery plantar fasciitis History of open reduction and internal fixation (ORIF) procedure left foot--hardware removed History of prostate biopsy x3--precancerous, just monitoring for now History of prostate surgery 07/2016--[facility] prostate vaproization History of cystoscopy multiple History of colonoscopy with polypectomy History of esophagogastroduodenoscopy (EGD) History of right inguinal hernia repair x3 History of Khari fundoplication History of cholecystectomy History of tooth extraction History of eye surgery right--macular degeneration History of bilateral cataract extraction History of cardiac cath 10/2010 @ [facility]--1 stent placed Family History Son Family history of diabetes mellitus Other Family history non-contributory No family history of adverse response to anesthesia Social History Smoking Status: Former smoker Tobacco Type: Cigarettes Second Hand Exposure: No; Do You Dip or Chew Tobacco: No; Hx Alcohol Use: No Hx Substance Use: No Preferred Language: [place] Communication Ability: Effective Visual Impairment: Partially Limited Hearing Ability: Use of Hearing Aid Decorating Supervisor Required: No Beliefs That Will Affect Care: None marital status: Current Living Situation: Spouse Current Living Situation Comment: with Araceli current occupational status: retired How many Children do You have: 1 How many Children do You have Comment: son , able to assist with care as needed Feels Safe at Home: Yes Diet: low salt and regular Assistive Devices: Oxygen - at Night, Stair Lift, Walker and Wheelchair Allergies Allergies Allergy/AdvReac Type Severity Reaction Status Date / Time bee venom protein (honey bee) Allergy Severe SWELLING, Verified 08/12/24 11:48 SOB Penicillins Allergy Severe SWELLING, Verified 08/12/24 11:48 DIFFICULTY BREATHING lidocaine Allergy Mild RASH Verified 08/12/24 11:48 gabapentin Allergy Unknown Pt denies, Verified 08/12/24 11:48 uncertain icosapent ethyl Allergy Unknown On med Verified 08/12/24 11:48 list / [facility] Pharmacy pregabalin Allergy Unknown On med Verified 08/12/24 11:48 list / [facility] Pharmacy cefdinir AdvReac Severe Vomiting Verified 08/12/24 11:48 hydrocodone AdvReac Mild nausea Verified 08/12/24 11:48 oxycodone AdvReac Mild nausea-SLOW Verified 08/12/24 11:48 RELEASE IS OK Home Meds Home Medications Medication Instructions Recorded Confirmed albuterol sulfate 90 mcg/actuation 2 puffs inhalation Q6H PRN 12/01/18 08/12/24 aerosol inhaler Shortness Of Breath Or Wheezing bupropion HCl 100 mg tablet 100 mg PO BID 12/01/18 08/12/24 docusate sodium 100 mg capsule 100 mg PO BID 12/01/18 08/12/24 finasteride 5 mg tablet 5 mg PO QAM 12/01/18 08/12/24 aspirin 81 mg tablet,delayed 81 mg PO QAM 12/21/18 08/12/24 release sennosides 8.6 mg tablet 8.6 mg PO BID 12/21/18 08/12/24 white petrolatum-mineral oil 56.8 1 applic ophthalmic (eye) HS 12/21/18 08/12/24 %-42.5 % eye ointment (Refresh Lacri-Lube) sacubitril 49 mg-valsartan 51 mg 1 tab PO AMPM 11/25/20 08/12/24 tablet pantoprazole 40 mg tablet,delayed 40 mg PO BID 03/10/21 08/12/24 release tiotropium 2.5 mcg-olodaterol 2.5 2 puff inhalation QAM 12/02/22 08/12/24 mcg/actuation mist for inhalation (Stiolto Respimat) cetirizine 10 mg tablet 10 mg PO QDB 05/17/23 08/12/24 epinephrine 0.3 mg/0.3 mL 0.3 mg IM DIRECTED PRN sEVERE 07/08/23 08/12/24 injection, auto-injector ALLERGIC REACTION vitamins A,C,Q-kymy-syeznz 4,296 1 cap PO BID 03/27/24 08/12/24 mcg-226 mg-90 mg capsule (PreserVision AREDS) aluminum hydroxide gel 320 mg/5 mL 960 mg PO DAILY PRN Heartburn 06/16/24 08/12/24 oral suspension oxycodone 10 mg tablet,crush 10 mg PO BID 06/16/24 08/12/24 resistant,extended release 12 hr (OxyContin) metoclopramide HCl 5 mg tablet 5 mg BID 07/02/24 08/12/24 acetaminophen 325 mg tablet 650 mg PO Q6H PRN Pain/Fever 08/12/24 08/12/24 (Tylenol) nitroglycerin 0.4 mg sublingual 0.4 mg sublingual DIRECTED PRN 08/12/24 08/12/24 tablet Chest Pain pramipexole 0.125 mg tablet 0.375 mg PO QAM 08/12/24 08/12/24 Previous Rx's Medication Instructions Recorded bumetanide 1 mg tablet 1 mg PO QAM #90 tabs 10/10/23 potassium chloride 20 mEq 20 meq PO BID #200 tabs 10/10/23 tablet,extended release apixaban 5 mg tablet (Eliquis) 5 mg PO BID #180 tabs 11/23/23 carvedilol 12.5 mg tablet 12.5 mg PO BID #0 tabs 07/31/24 ipratropium 0.5 mg-albuterol 3 mg 3 ml NEB Q6R PRN #0 mL 07/31/24 (2.5 mg base)/3 mL nebulization soln polyethylene glycol 3350 17 gram 17 g PO BID #0 ea 07/31/24 oral powder packet (Miralax) Results & Data (ED) Vital Signs Vital Signs - 24 hr 08/12/24 11:24 08/12/24 11:47 08/12/24 12:50 Temperature 36.8 C Temperature Source Oral Pulse Rate 100 H 146 H Pulse Rate [Apical] Respiratory Rate 29 H Respiratory Effort / Characteristics Spontaneous Short of Breath SOB on Exertion Respiratory Depth Shallow Blood Pressure 123/71 Blood Pressure [Left Arm] Blood Pressure Mean 88 Blood Pressure Mean [Left Arm] Blood Pressure Position [Left Arm] Pulse Oximetry 84 L 86 L Oxygen Delivery Method Room Air Room Air Nasal Cannula Oxygen Flow Rate Sepsis Recent Fever Within 48 Hours No Sepsis New/Unexplained Change in Mental Status No Sepsis Action Taken by Nursing No Action Required Oxygen Flow Rate - Titration 3 Pulse Oximetry Post Tiitration 96 08/12/24 12:50 Temperature Temperature Source Pulse Rate Pulse Rate [Apical] 96 H Respiratory Rate 24 Respiratory Effort / Characteristics Respiratory Depth Blood Pressure Blood Pressure [Left Arm] 145/92 H Blood Pressure Mean Blood Pressure Mean [Left Arm] 109 Blood Pressure Position [Left Arm] Sitting Pulse Oximetry 96 Oxygen Delivery Method Nasal Cannula Oxygen Flow Rate 3 Sepsis Recent Fever Within 48 Hours Sepsis New/Unexplained Change in Mental Status Sepsis Action Taken by Nursing Oxygen Flow Rate - Titration Pulse Oximetry Post Tiitration Laboratory Data 08/12/24 12:03 08/12/24 12:03 Lab Results 04/19/25 04/19/25 04/19/25 Range/Units 11:40 12:03 12:17 WBC 18.73 H (4.8-10.8) K/ul RBC 4.07 L (4.70-6.10) M/uL Hgb 11.4 L (14.0-18.0) g/dl Hct 36.2 L (42.0-52.0) % MCV 88.9 (80.0-100.0) fL MCH 28.0 (25.0-34.0) pg MCHC 31.5 L (32.0-36.0) g/dL RDW Std Deviation 47.6 H (36.4-46.3) fL RDW Coeff of Jerry 14.7 H (11.5-14.5) % Plt Count 420 H (130-400) K/uL MPV 10.5 (9.4-12.4) fL Immature Gran % (Auto) 0.4 % Neut % (Auto) 80.3 % Lymph % (Auto) 10.5 % [place] % (Auto) 4.3 % Eos % (Auto) 4.0 % Baso % (Auto) 0.5 % Neut # (Auto) 15.05 H (1.40-6.50) K/uL Lymph # (Auto) 1.96 (1.20-3.40) K/uL [place] # (Auto) 0.81 H (0.11-0.59) K/uL Eos # (Auto) 0.74 H (0.00-0.50) K/uL Baso # (Auto) 0.09 (0.00-0.20) K/uL Immature Gran # (Auto) 0.08 (0.01-0.20) K/uL PT 12.4 H (9.0-12.0) Seconds INR 1.2 H (0.9-1.1) Sodium 137 (136-145) mmol/L Potassium 4.1 (3.5-5.1) mmol/L Chloride 102 (98-107) mmol/L Carbon Dioxide 28 (21-32) mmol/L Anion Gap 7 (3-11) BUN 21 (6-23) mg/dl Creatinine 1.11 (0.6-1.4) mg/dl Est Cr Clr Drug Dosing 69.3 ml/min eGFR 67.55 BUN/Creatinine Ratio 18.9 (10-20) Glucose 119 H (70-99(Fasting)) mg/dl Lactate 2.2 H* (0.4-2.0) mmol/L Calcium 9.2 (8.6-10.3) mg/dl Magnesium 1.8 (1.7-2.4) mg/dl Total Bilirubin 0.3 (0.2-1.0) mg/dl AST 11 L (13-39) U/L ALT 15 (7-52) U/L Alkaline Phosphatase 63 (34-104) U/L Troponin I High Sens 9.4 (0-20) pg/ml B-Natriuretic Peptide 833 H (0-100) pg/ml Total Protein 7.6 (6.0-8.3) gm/dl Albumin 4.0 (3.4-5.0) gm/dl Globulin 3.6 (2.5-4.0) gm/dl Albumin/Globulin Ratio 1.1 (0.9-2) Procalcitonin < 0.02 (0-0.5) ng/ml Urine Color Yellow Urine Appearance Clear (Clear) Urine pH 5.0 (4.5-7.5) Ur Specific [place] 1.008 (1.000-1.030) Urine Protein Negative (Negative) Urine Glucose (UA) Negative (Negative) Urine Ketones Negative (Negative) Urine Blood Negative (Negative) Urine Nitrite Positive A (Negative) Urine Bilirubin Negative (Negative) Urine Urobilinogen Negative (Negative) Ur Leukocyte Esterase 2+ H (Negative) Urine WBC (Auto) 21-50 H (0-5) /hpf Urine RBC (Auto) 0-2 (0-2) /hpf U Hyaline Cast (Auto) 3-5 H (0-2) /lpf U Epithel Cells (Auto) 0-2 (0-2) /hpf Urine Bacteria (Auto) 4+ H (None Seen) SARS-CoV-2 (PCR) NEGATIVE (Negative) Influenza Type A (PCR) Negative (Neg) Influenza Type B (PCR) Negative (Neg) RSV (RT-PCR) Negative (Neg) 08/12/24 08/12/24 Range/Units 13:09 13:45 WBC (4.8-10.8) K/ul RBC (4.70-6.10) M/uL Hgb (14.0-18.0) g/dl Hct (42.0-52.0) % MCV (80.0-100.0) fL MCH (25.0-34.0) pg MCHC (32.0-36.0) g/dL RDW Std Deviation (36.4-46.3) fL RDW Coeff of Jerry (11.5-14.5) % Plt Count (130-400) K/uL MPV (9.4-12.4) fL Immature Gran % (Auto) % Neut % (Auto) % Lymph % (Auto) % [place] % (Auto) % Eos % (Auto) % Baso % (Auto) % Neut # (Auto) (1.40-6.50) K/uL Lymph # (Auto) (1.20-3.40) K/uL [place] # (Auto) (0.11-0.59) K/uL Eos # (Auto) (0.00-0.50) K/uL Baso # (Auto) (0.00-0.20) K/uL Immature Gran # (Auto) (0.01-0.20) K/uL PT (9.0-12.0) Seconds INR (0.9-1.1) Sodium (136-145) mmol/L Potassium (3.5-5.1) mmol/L Chloride (98-107) mmol/L Carbon Dioxide (21-32) mmol/L Anion Gap (3-11) BUN (6-23) mg/dl Creatinine (0.6-1.4) mg/dl Est Cr Clr Drug Dosing ml/min eGFR BUN/Creatinine Ratio (10-20) Glucose (70-99(Fasting)) mg/dl Lactate 4.5 H* 2.5 H* (0.4-2.0) mmol/L Calcium (8.6-10.3) mg/dl Magnesium (1.7-2.4) mg/dl Total Bilirubin (0.2-1.0) mg/dl AST (13-39) U/L ALT (7-52) U/L Alkaline Phosphatase (34-104) U/L Troponin I High Sens (0-20) pg/ml B-Natriuretic Peptide (0-100) pg/ml Total Protein (6.0-8.3) gm/dl Albumin (3.4-5.0) gm/dl Globulin (2.5-4.0) gm/dl Albumin/Globulin Ratio (0.9-2) Procalcitonin (0-0.5) ng/ml Urine Color Urine Appearance (Clear) Urine pH (4.5-7.5) Ur Specific [place] (1.000-1.030) Urine Protein (Negative) Urine Glucose (UA) (Negative) Urine Ketones (Negative) Urine Blood (Negative) Urine Nitrite (Negative) Urine Bilirubin (Negative) Urine Urobilinogen (Negative) Ur Leukocyte Esterase (Negative) Urine WBC (Auto) (0-5) /hpf Urine RBC (Auto) (0-2) /hpf U Hyaline Cast (Auto) (0-2) /lpf U Epithel Cells (Auto) (0-2) /hpf Urine Bacteria (Auto) (None Seen) SARS-CoV-2 (PCR) (Negative) Influenza Type A (PCR) (Neg) Influenza Type B (PCR) (Neg) RSV (RT-PCR) (Neg) Administered Medications Discontinued Medications Ertapenem (Invanz 1000mg) 1,000 mg in 10 mls @ 2 mls/min IV NOW STA Stop: 08/12/24 12:47 Last Admin: 08/12/24 13:20 Dose: 2 mls/min Documented By: [facility] Sodium Chloride (Nss) 1,000 mls @ 999 mls/hr IV .Q1H1M ONE Stop: 08/12/24 14:19 Last Admin: 08/12/24 14:08 Dose: Not Given Documented By: [facility] Imaging Data Radiologist's Impression: Chest X-Ray 08/12/24 11:40 Clinical History: Dyspnea Technique: A frontal view of the chest was obtained Comparison is made to the prior examination dated 07/29/2024 Findings: There is new right lower lobe consolidation, likely due to pneumonia. There is a small right pleural effusion and there is also a possible small left pleural effusion. The heart is mildly enlarged. No definite pneumothorax is seen. There is no definite pulmonary nodule. No fracture is noted. There is a left chest wall pacemaker device Impression: 1. Suspected right lower lobe pneumonia 2. Small bilateral pleural effusions 3. Mild cardiomegaly ACT 112: Positive. There are findings on this exam that require communication between the performing entity and the patient following Patient Test Result Information Act ([place] ACT 112) guidelines. Electronically signed by Jatin Robertson 08-12-2024 12:34 PM Discharge Plan Visit Data Chief Complaint: Illness ED Provider: Bailey Lomas Discharge Problem: Sepsis, Pneumonia, Acute exacerbation of CHF (congestive heart failure), Complicated urinary tract infection, Leukocytosis, Elevated lactic acid level, Acute hypoxemic respiratory failure, Elevated brain natriuretic peptide (BNP) level Forms Stand Alone Forms: [facility] [employer] Prescriptions Prescriptions: No Action bumetanide 1 mg tablet 1 mg PO QAM Qty: 90 3RF potassium chloride 20 mEq tablet extended release 20 meq PO BID Qty: 200 3RF sacubitril-valsartan 49-51 mg tablet 1 tab PO AMPM Hold Instructions: hold until you see your outpatient doctors cetirizine 10 mg tablet 10 mg PO QDB bupropion HCl 100 mg tablet 100 mg PO BID Rx Instructions: TAKE THIS MEDICATION EVERY MORNING AND AT NOON albuterol sulfate 90 mcg/actuation HFA aerosol inhaler 2 puffs inhalation Q6H PRN (Reason: Shortness Of Breath Or Wheezing) docusate sodium 100 mg capsule 100 mg PO BID Hold Instructions: Resume on 06/27/24. finasteride 5 mg tablet 5 mg PO QAM pantoprazole 40 mg tablet,delayed release (DR/EC) 40 mg PO BID Eliquis 5 mg tablet 5 mg PO BID Qty: 180 3RF PreserVision AREDS 4,296 mcg-226 mg-90 mg capsule 1 cap PO BID aspirin 81 mg Tablet,Delayed Release (Dr/Ec) 81 mg PO QAM sennosides 8.6 mg Tablet 8.6 mg PO BID Hold Instructions: Resume on 06/27/24. Refresh Lacri-Lube 56.8-42.5 % Ointment 1 applic OPHTHALMIC (EYE) HS Rx Instructions: 1/8th INCH IN EACH EYE Stiolto Respimat 2.5-2.5 mcg/actuation Mist 2 puff INHALATION QAM epinephrine 0.3 mg/0.3 mL Auto-Injector 0.3 mg IM DIRECTED PRN (Reason: sEVERE ALLERGIC REACTION) aluminum hydroxide gel 320 mg/5 mL Suspension 960 mg PO DAILY PRN (Reason: Heartburn) oxycodone [OxyContin] 10 mg Tablet,Oral Only,Ext.Rel.12 Hr 10 mg PO BID metoclopramide HCl 5 mg Tablet 5 mg BID carvedilol 12.5 mg Tablet 12.5 mg PO BID Qty: 0 0RF ipratropium-albuterol 0.5 mg-3 mg(2.5 mg base)/3 mL Solution For Nebulization 3 ml NEB Q6R PRNQty: 0 0RF polyethylene glycol 3350 [Miralax] 17 gram Powder In Packet 17 g PO BID Qty: 0 0RF acetaminophen [Tylenol] 325 mg Tablet 650 mg PO Q6H PRN (Reason: Pain/Fever) pramipexole 0.125 mg Tablet 0.375 mg PO QAM nitroglycerin 0.4 mg Tablet, Sublingual 0.4 mg sublingual DIRECTED PRN (Reason: Chest Pain) Rx Instructions: Every 5 minutes as needed for chest pain x 3 doses Referrals Referrals: Tramaine Peterson MD [Primary Care Provider] -
--- NOTE | 2024-08-12 12:35 | XRay Report ---
Clinical History: Dyspnea Technique: A frontal view of the chest was obtained Comparison is made to the prior examination dated 07/29/2024 Findings: There is new right lower lobe consolidation, likely due to pneumonia. There is a small right pleural effusion and there is also a possible small left pleural effusion. The heart is mildly enlarged. No definite pneumothorax is seen. There is no definite pulmonary nodule. No fracture is noted. There is a left chest wall pacemaker device Impression: 1. Suspected right lower lobe pneumonia 2. Small bilateral pleural effusions 3. Mild cardiomegaly ACT 112: Positive. There are findings on this exam that require communication between the performing entity and the patient following Patient Test Result Information Act ([place] ACT 112) guidelines. Electronically signed by Jatin Robertson 08-12-2024 12:34 PM
[2024-08-12 12:40] LABS: Basophils # (auto) 0.09 K/uL (0.00-0.20); Basophils % (auto) 0.5 %; Eosinophils # (auto) 0.74 K/uL (0.00-0.50); Hematocrit (blood only) 36.2 % (42.0-52.0); Hemoglobin 11.4 g/dl (14.0-18.0); Immature Granulocytes # (auto) 0.08 K/uL (0.01-0.20); Immature Granulocytes % (auto) 0.4 %; Lymphocytes # (auto) 1.96 K/uL (1.20-3.40); Lymphocytes % (auto) 10.5 %; Mean Corpuscular Hgb Conc 31.5 g/dL (32.0-36.0); Mean Corpuscular Volume 88.9 fL (80.0-100.0); Mean Platelet Volume 10.5 fL (9.4-12.4); Monocytes # (auto) 0.81 K/uL (0.11-0.59); Monocytes % (auto) 4.3 %; Neutrophils # (auto) 15.05 K/uL (1.40-6.50); Neutrophils % (auto) 80.3 %; Platelet Count 420 K/uL (130-400); RDW Coefficient of Variation 14.7 % (11.5-14.5); RDW Standard Deviation 47.6 fL (36.4-46.3); Red Blood Count 4.07 M/uL (4.70-6.10); White Blood Count 18.73 K/ul (4.8-10.8)
[2024-08-12 12:41] LABS: Appearance Urine Clear (Clear); Bacteria Urine Automated 4+ (None Seen); Bilirubin Urine Negative (Negative); Blood Urine Negative (Negative); Color Urine Yellow; Epithelial Cell Urine Auto 0-2 /hpf (0-2); Glucose Urine UA Negative (Negative); Ketones Urine Negative (Negative); Leukocyte Esterase Urine 2+ (Negative); Nitrite Urine Positive (Negative); Protein Urine Negative (Negative); RBC Urine Automated 0-2 /hpf (0-2); Specific Gravity Urine 1.008 (1.000-1.030); Urobilinogen Urine Negative (Negative); WBC Urine Automated 21-50 /hpf (0-5)
[2024-08-12 12:51] LABS: Albumin Globulin Ratio 1.1 (0.9-2); BUN Creatinine Ratio 18.9 (10-20); Bilirubin,Total 0.3 mg/dl (0.2-1.0); Calcium 9.2 mg/dl (8.6-10.3); Creatinine Clr Calc Pharmacy 69.3 ml/min; Globulin 3.6 gm/dl (2.5-4.0); Magnesium 1.8 mg/dl (1.7-2.4); Potassium 4.1 mmol/L (3.5-5.1); Total Protein 7.6 gm/dl (6.0-8.3)
[2024-08-12 12:58] LABS: Troponin I High Sensitivity 9.4 pg/ml (0-20)
[2024-08-12 13:03] LABS: INR 1.2 (0.9-1.1); Prothrombin Time 12.4 Seconds (9.0-12.0)
[2024-08-12] MEDS: ERTAPENEM 1000MG 1,000 MG/10 ML SYR IV STA (13:20)
[2024-08-12 13:29] LABS: Influenza A virus by PCR Negative (Neg); Influenza B virus by PCR Negative (Neg); RSV by PCR Negative (Neg); SARS CoV2 RNA(COVID-19) Ceph NEGATIVE (Negative)
[2024-08-12] MEDS: SODIUM CHLORIDE 0.9% 1,000 ML IV ONE (14:08)
--- NOTE | 2024-08-12 14:28 | History & Physical Report ---
Date of Service August 12, 2024 Assessment & Plan (1) Pneumonia: (2) Complicated urinary tract infection: (3) Acute exacerbation of CHF (congestive heart failure): (4) HFrEF (heart failure with reduced ejection fraction): (5) History of venous thromboembolism: (6) BPH loc w urin obs/LUTS: (7) CAD (coronary artery disease): (8) Sleep apnea: (9) Presence of combination internal cardiac defibrillator (ICD) and pacemaker: Plan #Pneumonia -Ongoing SOB on and off for 2-3 weeks -Chest Xray reveals Right lower Pneumonia -WBC count high, pro lee ann normal, elevated lactate -Received Ertapenem in the ED Plan -Start Meropenem -Duoneb inhaler PRN -Intensive spirometer - O2 as per protocol -F/U Blood Culture -F/U Respi Biofire Panel -F/U sputum culture # Recurrent UTI -Urine culture positive for ESBL in the past - Urinalysis suggestive of UTI -Urine culture pending Plan -Start Meropenem. Urine culture positive for ESBL in the past sensitive to Meropenem. -F/U blood culture # Cellulitis of LLE -Increase in swelling of LLE since last 1-2 days -O/E: Swelling, erythematous and warm Plan -Start IV Meropenem -F/U Blood culture -Monitor WBC and Temperature curve #PAF with pacer in setting of Acute HFrEF exacerbation -TTE on 07/29 reveals severely reduced left ventricular function -Cautious IV fluid in setting of HF with Bradycardia -Hold Carvedilol and Entresto in setting of Bradycardia -Continue Eliquis and Aspirin -Cardiology Consultation #Deconditioning -In setting of multiple comorbidities -PT/OT evaluation #Chronic Condition Parkinsonism: Continue Pramipexole Chronic pain syndrome: Continue oxycodone BPH: Continue Finasteride Dispo Admit: Med/Surg with Telemetry VTE prophylaxis: Eliquis Code: Full History of Present Illness Chief Complaint: SOB, Shakiness Primary Care Provider: MD Dani June James is a 79 Y O Male with PMH of Coronary Artery Disease, S/P Pacemaker, Obstructive Sleep Apnea(on BIPAP), Hypertension, Dyslipidemia, Peripheral Neuropathy Paroxysmal AF, CHF, Parkinsonism, presented today from facility. He was in facility for past 2 weeks since last time he was admitted in the hospital. This morning he was doing good, had his breakfast which was uneventful. Just after breakfast, all of sudden started feeling shaky, had chills , felt weak and BP went down. Denies fever, palpitation, chest pain, abdominal pain, N/V, sore throat and facial congestion Has Shortness of Breath on and off which is ongoing since last visit. Has occasional cough with phlegm production. Has noticed increase in swelling of bilateral legs for past 1 2 days Denies difficulty or burning on peeing. Appetite normal. Having regular BM No smoking or alcohol currently He was admitted 2 weeks ago for ESBL associated UTI Allergies Allergy/AdvReac Type Severity Reaction Status Date / Time bee venom protein (honey bee) Allergy Severe SWELLING, Verified 08/12/24 11:48 SOB Penicillins Allergy Severe SWELLING, Verified 08/12/24 11:48 DIFFICULTY BREATHING lidocaine Allergy Mild RASH Verified 08/12/24 11:48 gabapentin Allergy Unknown Pt denies, Verified 08/12/24 11:48 uncertain icosapent ethyl Allergy Unknown On med Verified 08/12/24 11:48 [facility]/ [facility] Pharmacy pregabalin Allergy Unknown On med Verified 08/12/24 11:48 [facility]/ [facility] Pharmacy cefdinir AdvReac Severe Vomiting Verified 08/12/24 11:48 hydrocodone AdvReac Mild nausea Verified 08/12/24 11:48 oxycodone AdvReac Mild nausea-SLOW Verified 08/12/24 11:48 RELEASE IS OK Home Medications Medication Instructions Recorded Confirmed Type albuterol sulfate 90 mcg/actuation 2 puffs inhalation Q6H PRN 12/01/18 08/12/24 History aerosol inhaler Shortness Of Breath Or Wheezing bupropion HCl 100 mg tablet 100 mg PO BID 12/01/18 08/12/24 History docusate sodium 100 mg capsule 100 mg PO BID 12/01/18 08/12/24 History finasteride 5 mg tablet 5 mg PO QAM 12/01/18 08/12/24 History aspirin 81 mg tablet,delayed 81 mg PO QAM 12/21/18 08/12/24 History release sennosides 8.6 mg tablet 8.6 mg PO BID 12/21/18 08/12/24 History white petrolatum-mineral oil 56.8 1 applic ophthalmic (eye) HS 12/21/18 08/12/24 History %-42.5 % eye ointment (Refresh Lacri-Lube) sacubitril 49 mg-valsartan 51 mg 1 tab PO AMPM 11/25/20 08/12/24 History tablet pantoprazole 40 mg tablet,delayed 40 mg PO BID 03/10/21 08/12/24 History release tiotropium 2.5 mcg-olodaterol 2.5 2 puff inhalation QAM 12/02/22 08/12/24 History mcg/actuation mist for inhalation (Stiolto Respimat) cetirizine 10 mg tablet 10 mg PO QDB 05/17/23 08/12/24 History epinephrine 0.3 mg/0.3 mL 0.3 mg IM DIRECTED PRN sEVERE 07/08/23 08/12/24 History injection, auto-injector ALLERGIC REACTION bumetanide 1 mg tablet 1 mg PO QAM #90 tabs 10/10/23 08/12/24 Rx potassium chloride 20 mEq 20 meq PO BID #200 tabs 10/10/23 08/12/24 Rx tablet,extended release apixaban 5 mg tablet (Eliquis) 5 mg PO BID #180 tabs 11/23/23 08/12/24 Rx vitamins A,C,F-imlo-wlbhrt 4,296 1 cap PO BID 03/27/24 08/12/24 History mcg-226 mg-90 mg capsule (PreserVision AREDS) aluminum hydroxide gel 320 mg/5 mL 960 mg PO DAILY PRN Heartburn 06/16/24 08/12/24 History oral suspension oxycodone 10 mg tablet,crush 10 mg PO BID 06/16/24 08/12/24 History resistant,extended release 12 hr (OxyContin) metoclopramide HCl 5 mg tablet 5 mg BID 07/02/24 08/12/24 History carvedilol 12.5 mg tablet 12.5 mg PO BID #0 tabs 07/31/24 08/12/24 Rx ipratropium 0.5 mg-albuterol 3 mg 3 ml NEB Q6R PRN #0 mL 07/31/24 08/12/24 Rx (2.5 mg base)/3 mL nebulization soln polyethylene glycol 3350 17 gram 17 g PO BID #0 ea 04/07/25 04/19/25 Rx oral powder packet (Miralax) acetaminophen 325 mg tablet 650 mg PO Q6H PRN Pain/Fever 08/12/24 08/12/24 History (Tylenol) nitroglycerin 0.4 mg sublingual 0.4 mg sublingual DIRECTED PRN 08/12/24 08/12/24 History tablet Chest Pain pramipexole 0.125 mg tablet 0.375 mg PO QAM 08/12/24 08/12/24 History Past Med/Surg History Problem List (Updated 08/12/24 @ 15:53 by Tramaine Peterson MD) Acute hypoxemic respiratory failure (Acute) Sepsis (Acute) Pneumonia (Acute) Complicated urinary tract infection (Acute) Acute exacerbation of CHF (congestive heart failure) (Acute) HFrEF (heart failure with reduced ejection fraction) History of venous thromboembolism BPH loc w urin obs/LUTS CAD (coronary artery disease) s/p stent 2010 Sleep apnea bipap Presence of combination internal cardiac defibrillator (ICD) and pacemaker first placed 2010 @ [facility] replaced in 2014 & 2021 @ [facility]--biventricular [employer]. reports last check 11/25/22. Paroxysmal atrial fibrillation Anticoagulant long-term use PAT (paroxysmal atrial tachycardia) Cardiomyopathy Parkinsonism Stage III pressure ulcer of buttock (Acute) Centrilobular emphysema Bilateral foot-drop Biliary dyskinesia (Chronic) Idiopathic peripheral neuropathy (Acute) Cervical spondylosis without myelopathy (Acute) Cervical radiculopathy (Acute) Complex renal cyst Ulnar neuropathy of both upper extremities Agent orange exposure Balance problem Elevated PSA Atherogenic dyslipidemia Cervicogenic headache Spasticity upper limbs Medical History (Updated 08/12/24 @ 15:53 by Tramaine Peterson MD) Atrial tachycardia CHF (congestive heart failure) Tachycardia Pressure ulcer of right heel, stage 4 Benign essential hypertension Ischemic cardiomyopathy Euvolemic at 11/23/22 cardio appt Elevated INR Near syncope Tachycardia Leg pain Elevated lactic acid level Elevated INR Cellulitis Unstageable pressure ulcer of right heel Unstageable pressure ulcer of left heel Hypoxia Vomiting Acute kidney injury Elevated troponin Acute kidney failure Acute UTI Sepsis Severe sepsis Encounter for pre-operative examination Intrinsic minus hand POWERS (dyspnea on exertion) Preop testing Episode of confusion Right upper quadrant abdominal pain Hand laceration Dog bite Chest pain Cellulitis of left arm Peripheral arterial disease Hypertension Tremor ICD (implantable cardioverter-defibrillator) in place Neuropathy Complex sleep apnea syndrome NYHA class 4 acute on chronic systolic heart failure History of kidney stones Emphysema lung Legally blind Chronic back pain History of urinary self-catheterization self caths every other night History of DVT of lower extremity 2010 Macular degeneration Hearing deficit Depression Migraine Myocardial Infarction 10/2010--follows with Dr. Abreu Pulmonary embolism 1992 and 2010 after heart attack--follows with Dr. Abreu Asthma inhaler prn Surgical History Presence of biventricular automatic cardioverter/defibrillator (AICD) S/P epidural steroid injection History of foot surgery plantar fasciitis History of open reduction and internal fixation (ORIF) procedure left foot--hardware removed History of prostate biopsy x3--precancerous, just monitoring for now History of prostate surgery 07/2016--[facility] prostate vaproization History of cystoscopy multiple History of colonoscopy with polypectomy History of esophagogastroduodenoscopy (EGD) History of right inguinal hernia repair x3 History of Khari fundoplication History of cholecystectomy History of tooth extraction History of eye surgery right--macular degeneration History of bilateral cataract extraction History of cardiac cath 10/2010 @ [facility]--1 stent placed Family History Son Family history of diabetes mellitus Other Family history non-contributory No family history of adverse response to anesthesia Social History Smoking Status: Former smoker Tobacco Type: Cigarettes Second Hand Exposure: No; Do You Dip or Chew Tobacco: No; Hx Alcohol Use: No Hx Substance Use: No Preferred Language: Fijian Communication Ability: Effective Visual Impairment: Partially Limited Hearing Ability: Use of Hearing Aid Porcelain Enameling Supervisor Required: No Beliefs That Will Affect Care: None marital status: Current Living Situation: Spouse Current Living Situation Comment: with [employer] current occupational status: retired How many Children do You have: 1 How many Children do You have Comment: son , able to assist with care as needed Feels Safe at Home: Yes Diet: low salt and regular Assistive Devices: Oxygen - at Night, Stair Lift, Walker and Wheelchair Review of Systems Review of Systems: As per HPI Physical Exam Constitutional: WD/WN, vitals as above well developed; no acute distress Eyes: PERRL, conjunctivae normal, anicteric sclerae ENMT: external ear and nose normal, oropharynx normal Ears: no hearing impairment Neck: trachea midline, no thyromegaly trachea midline Respiratory: normal respiratory effort, lungs clear to auscultation normal respiratory effort and + respiratory distress; no labored breathing and no retractions Auscultation: + diminished lung sounds Cardiovascular: RRR, no murmur, no edema Rate/Rhythm: regular rate and regular rhythm Chest (Breasts): normal inspection/palpation of breasts Chest: normal inspection of chest Musculoskeletal: Extremities: + lower leg abnormality (2+ pitting edema of bilateral lower extremity below knee) Results & Data Results & Data Vital Signs (Past 12 Hours) Vital Signs Temp Pulse Pulse Resp BP BP Pulse Ox 08/12/24 12:50 96 H 24 145/92 H 96 08/12/24 12:50 86 L 08/12/24 11:47 146 H 08/12/24 11:24 36.8 C 100 H 29 H 123/71 84 L O2 Del Method O2 Flow Rate 08/12/24 12:50 Nasal Cannula 3 08/12/24 12:50 Room Air, Nasal Cannula 08/12/24 11:47 08/12/24 11:24 Room Air Supervising Physician Co-Signing Physician Notes Attending attestation Pt seen and examined in concert with Dr. Winston. In agreement with the documented findings as noted in the resident documentation with any exceptions or additions as noted here. Presenting with multiple concerns for infection in the setting of recent onset rigors while eating breakfast this morning, as well as overall fatigue. Presently reports no abdominal symptoms, dysuria, chest pain, palpitations, significant cough, lower extremity pain (though does have chronic paresthesias/numbness of the LE). On examination, S1/S2 nl bradycardia no MCG. coarse breath sounds with decreased air movement at bases. Abd NT/ND BS+ve. 2+ pitting edema to the knee b/l with warmth and some erythema/excoriation/skin breakdown UTI, recurrent, h/o recent ESBL - UCx pending. Trend BMP, CBC daily. Meropenem with narrow if possible following culture. Careful IV fluid use. Acute hypoxic respiratory failure with PNA, RLL - BCx pending, likely covered by carbapenem therapy as above. O2 per protocol. Cellulitis, LLE - as above Paroxysmal atrial fibrillation w/ pacer in place in the setting of HFrEF - cardiology consult - cautious IV fluid use in the setting of HF with bradycardia. Holding carvedilol, Entresto for now. Continue apixaban, ASA. Parkinsons disease - continue pramipexole MDD - chronically on buproprion, continue Centrilobular emphysema - continue home inhaler regimen Else see resident documentation as noted.
[2024-08-12 17:35] LABS: Adenovirus PCR Not Detected (NotDetected); Bordetella parapertussis PCR Not Detected (NotDetected); Bordetella pertussis PCR Not Detected (NotDetected); Chlamydia pneumoniae PCR Not Detected (NotDetected); Coronavirus 229E PCR Not Detected (NotDetected); Coronavirus CoV-2 (COVID19)PCR Not Detected (NotDetected); Coronavirus HKU1 PCR Not Detected (NotDetected); Coronavirus NL63 PCR Not Detected (NotDetected); Coronavirus OC43PCR Not Detected (NotDetected); Human Metapneumovirus PCR Not Detected (NotDetected); Influenza A PCR Not Detected (NotDetected); Influenza B PCR Not Detected (NotDetected); Mycoplasma pneumoniae PCR Not Detected (NotDetected); Parainfluenza Virus 1 PCR Not Detected (NotDetected); Parainfluenza Virus 2 PCR Not Detected (NotDetected); Parainfluenza Virus 3 PCR Not Detected (NotDetected); Parainfluenza Virus 4 PCR Not Detected (NotDetected); Respiratory Syncytial VirusPCR Not Detected (NotDetected); Rhinovirus/Enterovirus PCR Not Detected (NotDetected)
--- NOTE | 2024-08-12 18:10 | Cardiology Consultation ---
Date of Consultation August 12, 2024 Assessment & Plan (1) HFrEF (heart failure with reduced ejection fraction): (2) CAD (coronary artery disease): (3) Paroxysmal atrial fibrillation: (4) PAT (paroxysmal atrial tachycardia): (5) Cardiomyopathy: (6) Presence of biventricular automatic cardioverter/defibrillator (AICD): Plan 1. Heart failure with reduced ejection fraction: While he has few symptoms, he does appear somewhat volume overloaded. His usual outpatient regimen consists of a daily dose of bumetanide. If he is hemodynamically stable I would try to avoid significant volume administration. He has had several admissions recently for decompensated heart failure. If he requires volume administration for hemodynamic support in the setting of sepsis, we will need to attempt diuresis at the first opportunity. 2. Ischemic cardiomyopathy: Severe. His medical regimen has been de-escalated recently due to hypotension. This portends a poor prognosis overall. I would continue the carvedilol. I do not think there is any concern about bradycardia, as this was artifactual. Carvedilol could certainly be held in the setting of hypotension associated with sepsis. Entresto recently discontinued. We would likely run into mild hypotension with spironolactone as well. Given his frequent urinary infections he does not appear to be a good candidate for SGLT2 inhibitors. 3. "Bradycardia": This was artifactual. The patient is having frequent PVCs which are not tracked well on telemetry. Therefore the telemetry gives erroneous readings. He will not have bradycardia with his implanted device. I did increase the atrial pacing rate in the hopes of suppressing some of the PVCs as this may improve overall cardiac efficiency. 4. Atrial fibrillation and atrial tachycardia: No documented episodes of atrial fibrillation recently. He underwent catheter-based therapy at 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 This appears to have been successful. No recorded episodes of atrial tachycardia since May 30. At this point would seem reasonable to continue apixaban. The need for long-term anticoagulation can be reassessed in the outpatient setting. 5. Mitral regurgitation: Mild. Not a clinical concern. 6. Normally functioning biventricular ICD nearing the elective replacement interval. He is followed closely in our outpatient clinic. Slightly elevated LV pacing threshold which appears chronic. Program. Adequate at this time. As noted above with increased atrial pacing rate in the hopes of suppressing some ventricular ectopy. History of Present Illness Reason for Consultation: Bradycardia, congestive heart failure Requesting Physician: Catrachito Attending Physician: Nicholas History of Present Illness The patient is a 79-year-old individual with an extensive cardiac history to include coronary artery disease, ischemic cardiomyopathy, paroxysmal atrial fibrillation, atrial tachycardia, mitral regurgitation and prior implantation of biventricular ICD. The patient has been had multiple admissions recently for decompensated congestive heart failure and infections. He was brought from his skilled nursing to [facility] today when he experienced the acute onset of chills and "shaking". He was reported to have an elevated heart rate and low oxygen saturations at [facility]. These readings were likely artifactual. However, he was not feeling well and his emergency room evaluation suggest an infectious process, pneumonia, cellulitis and urinary tract infection. He was also felt to have an element of bradycardia with telemetry readings of 45 bpm. The patient states that yesterday he was feeling well. He was actually at the [place] for fitting of some new shoes. He has a history of lower extremity wounds and has some special shoes fitted without heels. However, this cannot be completed because his feet were too swollen. He generally ambulates with a walker. He has difficulty ambulating due to leg weakness. Currently at a skilled nursing but at home he also has a lift chair and a chair which takes him up his stairs. He does have an element of dyspnea at times. Did not report notable orthopnea recently. He has not been aware of palpitations or rapid heartbeats. He has been having some episodes of dizziness and lightheadedness especially when changing positions recently. No syncope. He does have an element of lower extremity edema which he says has worsened markedly in the past 24 hours. Allergies Allergy/AdvReac Type Severity Reaction Status Date / Time bee venom protein (honey bee) Allergy Severe SWELLING, Verified 08/12/24 11:48 SOB Penicillins Allergy Severe SWELLING, Verified 08/12/24 11:48 DIFFICULTY BREATHING lidocaine Allergy Mild RASH Verified 08/12/24 11:48 gabapentin Allergy Unknown Pt denies, Verified 08/12/24 11:48 uncertain icosapent ethyl Allergy Unknown On med Verified 08/12/24 11:48 list / [facility] Pharmacy pregabalin Allergy Unknown On med Verified 08/12/24 11:48 list / [facility] Pharmacy cefdinir AdvReac Severe Vomiting Verified 08/12/24 11:48 hydrocodone AdvReac Mild nausea Verified 08/12/24 11:48 oxycodone AdvReac Mild nausea-SLOW Verified 08/12/24 11:48 RELEASE IS OK Home Medications Medication Instructions Recorded Confirmed Type albuterol sulfate 90 mcg/actuation 2 puffs inhalation Q6H PRN 12/01/18 08/12/24 History aerosol inhaler Shortness Of Breath Or Wheezing bupropion HCl 100 mg tablet 100 mg PO BID 12/01/18 08/12/24 History docusate sodium 100 mg capsule 100 mg PO BID 12/01/18 08/12/24 History finasteride 5 mg tablet 5 mg PO QAM 12/01/18 08/12/24 History aspirin 81 mg tablet,delayed 81 mg PO QAM 12/21/18 08/12/24 History release sennosides 8.6 mg tablet 8.6 mg PO BID 12/21/18 08/12/24 History white petrolatum-mineral oil 56.8 1 applic ophthalmic (eye) HS 12/21/18 08/12/24 History %-42.5 % eye ointment (Refresh Lacri-Lube) sacubitril 49 mg-valsartan 51 mg 1 tab PO AMPM 11/25/20 08/12/24 History tablet pantoprazole 40 mg tablet,delayed 40 mg PO BID 03/10/21 08/12/24 History release tiotropium 2.5 mcg-olodaterol 2.5 2 puff inhalation QAM 12/02/22 08/12/24 History mcg/actuation mist for inhalation (Stiolto Respimat) cetirizine 10 mg tablet 10 mg PO QDB 05/17/23 08/12/24 History epinephrine 0.3 mg/0.3 mL 0.3 mg IM DIRECTED PRN sEVERE 07/08/23 08/12/24 History injection, auto-injector ALLERGIC REACTION bumetanide 1 mg tablet 1 mg PO QAM #90 tabs 10/10/23 08/12/24 Rx potassium chloride 20 mEq 20 meq PO BID #200 tabs 10/10/23 08/12/24 Rx tablet,extended release apixaban 5 mg tablet (Eliquis) 5 mg PO BID #180 tabs 11/23/23 08/12/24 Rx vitamins A,C,C-kmej-ugqkox 4,296 1 cap PO BID 03/27/24 08/12/24 History mcg-226 mg-90 mg capsule (PreserVision AREDS) aluminum hydroxide gel 320 mg/5 mL 960 mg PO DAILY PRN Heartburn 06/16/24 08/12/24 History oral suspension oxycodone 10 mg tablet,crush 10 mg PO BID 06/16/24 08/12/24 History resistant,extended release 12 hr (OxyContin) metoclopramide HCl 5 mg tablet 5 mg BID 07/02/24 08/12/24 History carvedilol 12.5 mg tablet 12.5 mg PO BID #0 tabs 07/31/24 08/12/24 Rx ipratropium 0.5 mg-albuterol 3 mg 3 ml NEB Q6R PRN #0 mL 07/31/24 08/12/24 Rx (2.5 mg base)/3 mL nebulization soln polyethylene glycol 3350 17 gram 17 g PO BID #0 ea 07/31/24 08/12/24 Rx oral powder packet (Miralax) acetaminophen 325 mg tablet 650 mg PO Q6H PRN Pain/Fever 08/12/24 08/12/24 History (Tylenol) nitroglycerin 0.4 mg sublingual 0.4 mg sublingual DIRECTED PRN 08/12/24 08/12/24 History tablet Chest Pain pramipexole 0.125 mg tablet 0.375 mg PO QAM 08/12/24 08/12/24 History Patient History Medical History (Updated 08/12/24 @ 15:53 by Tramaine Peterson MD) Atrial tachycardia CHF (congestive heart failure) Tachycardia Pressure ulcer of right heel, stage 4 Benign essential hypertension Ischemic cardiomyopathy Euvolemic at 11/23/22 cardio appt Elevated INR Near syncope Tachycardia Leg pain Elevated lactic acid level Elevated INR Cellulitis Unstageable pressure ulcer of right heel Unstageable pressure ulcer of left heel Hypoxia Vomiting Acute kidney injury Elevated troponin Acute kidney failure Acute UTI Sepsis Severe sepsis Encounter for pre-operative examination Intrinsic minus hand POWERS (dyspnea on exertion) Preop testing Episode of confusion Right upper quadrant abdominal pain Hand laceration Dog bite Chest pain Cellulitis of left arm Peripheral arterial disease Hypertension Tremor ICD (implantable cardioverter-defibrillator) in place Neuropathy Complex sleep apnea syndrome NYHA class 4 acute on chronic systolic heart failure History of kidney stones Emphysema lung Legally blind Chronic back pain History of urinary self-catheterization self caths every other night History of DVT of lower extremity 2010 Macular degeneration Hearing deficit Depression Migraine Myocardial Infarction 10/2010--follows with Dr. Abreu Pulmonary embolism 1992 and 2010 after heart attack--follows with Dr. Abreu Asthma inhaler prn Surgical History Presence of biventricular automatic cardioverter/defibrillator (AICD) S/P epidural steroid injection History of foot surgery plantar fasciitis History of open reduction and internal fixation (ORIF) procedure left foot--hardware removed History of prostate biopsy x3--precancerous, just monitoring for now History of prostate surgery 07/2016--greenlight prostate vaproization History of cystoscopy multiple History of colonoscopy with polypectomy History of esophagogastroduodenoscopy (EGD) History of right inguinal hernia repair x3 History of Khari fundoplication History of cholecystectomy History of tooth extraction History of eye surgery right--macular degeneration History of bilateral cataract extraction History of cardiac cath 10/[address] [facility]--1 stent placed Family History Son Family history of diabetes mellitus Other Family history non-contributory No family history of adverse response to anesthesia Social History Smoking Status: Former smoker Tobacco Type: Cigarettes Second Hand Exposure: No; Do You Dip or Chew Tobacco: No; Tobacco Cessation Education Requested by Patient: No Hx Alcohol Use: No Hx Substance Use: No Preferred Language: Irish Communication Ability: Effective Visual Impairment: Partially Limited Hearing Ability: Use of Hearing Aid Steel Detailer Required: No Beliefs That Will Affect Care: None marital status: Current Living Situation: Spouse Current Living Situation Comment: with Araceli current occupational status: retired How many Children do You have: 1 How many Children do You have Comment: son , able to assist with care as needed Other Information That Helps Us Care for You: No Feels Safe at Home: Yes Safety Concerns: Feels Safe At This Time Diet: low salt and regular Assistive Devices: BiPap, Oxygen - at Night, Scooter/Electric Scooter, Walker and Wheelchair Review of Systems Review of Systems: Per HPI. No subjective fevers. Physical Exam Physical Exam: The patient is alert and oriented. Mood and affect appeared normal. He answered all questions appropriately. HEENT: Pupils are equal and reactive to light and accommodation. Extraocular movements are intact. The sclerae are anicteric. Neuro: Cranial nerves intact Chest: Well-healed device implant site in left upper pectoral area. Lungs: Reduced breath sounds in the mid right lung field with crackles as well. No expiratory wheezing. Normal respiratory effort. Cardiac: Heart demonstrates an irregular rate and rhythm. Normal S1 and S2. No murmurs on examination. Pulses: The patient has palpable radial pulses bilaterally that are equal in intensity Extremities: There was no evidence of hypoperfusion. There is no cyanosis or clubbing. Moderate lower extremity edema. Extremities are also warm to the touch and somewhat erythematous. Some abrasions noted. Skin: Erythema of the lower extremities. Results & Data Vital Signs (Past 12 Hours) Vital Signs Temp Pulse Pulse Resp BP BP Pulse Ox 08/12/24 17:32 61 23 108/9 L 96 08/12/24 16:14 45 L 08/12/24 12:50 96 H 24 145/92 H 96 08/12/24 12:50 86 L 08/12/24 11:47 146 H 08/12/24 11:24 36.8 C 100 H 29 H 123/71 84 L O2 Del Method O2 Flow Rate 08/12/24 17:32 Room Air 08/12/24 16:14 08/12/24 12:50 Nasal Cannula 3 08/12/24 12:50 Room Air, Nasal Cannula 08/12/24 11:47 08/12/24 11:24 Room Air Laboratory Results Abnormal Lab Results 08/12/24 08/12/24 08/12/24 11:40 11:40 11:40 WBC RBC Hgb Hct MCV MCH MCHC RDW Std Deviation RDW Coeff of Jerry Plt Count MPV Immature Gran % (Auto) Neut % (Auto) Lymph % (Auto) Jerauld % (Auto) Eos % (Auto) Baso % (Auto) Neut # (Auto) Lymph # (Auto) Jerauld # (Auto) Eos # (Auto) Baso # (Auto) Immature Gran # (Auto) PT INR Sodium Potassium Chloride Carbon Dioxide Anion Gap BUN Creatinine Est Cr Clr Drug Dosing eGFR BUN/Creatinine Ratio Glucose Lactate Calcium Magnesium Total Bilirubin AST ALT Alkaline Phosphatase Troponin I High Sens B-Natriuretic Peptide Total Protein Albumin Globulin Albumin/Globulin Ratio Procalcitonin Urine Color Urine Appearance Urine pH Ur Specific [place] Urine Protein Urine Glucose (UA) Urine Ketones Urine Blood Urine Nitrite Urine Bilirubin Urine Urobilinogen Ur Leukocyte Esterase Urine WBC (Auto) Urine RBC (Auto) U Hyaline Cast (Auto) U Epithel Cells (Auto) Urine Bacteria (Auto) Adenovirus (PCR) Not Detected B. pertussis DNA (PCR) Not Detected B.parapertussis DNA PCR Not Detected C. pneumoniae DNA (PCR) Not Detected Coronavirus OC43 (PCR) Not Detected Coronavirus HKU1 (PCR) Not Detected Coronavirus 229E (PCR) Not Detected SARS-CoV-2 (PCR) NEGATIVE Not Detected Coronavirus NL63 (PCR) Not Detected Human Metapneumovir PCR Not Detected Influenza Type A (PCR) Negative Not Detected Influenza Type B (PCR) Negative M. pneumoniae (PCR) Parainfluenza 1 (PCR) Parainfluenza 2 (PCR) Parainfluenza 3 (PCR) Parainfluenza 4 (PCR) RSV (RT-PCR) RSV (PCR) Entero/Rhino (PCR) 08/12/24 08/12/24 08/12/24 11:40 12:03 12:17 WBC 18.73 H RBC 4.07 L Hgb 11.4 L Hct 36.2 L MCV 88.9 MCH 28.0 MCHC 31.5 L RDW Std Deviation 47.6 H RDW Coeff of Jerry 14.7 H Plt Count 420 H MPV 10.5 Immature Gran % (Auto) 0.4 Neut % (Auto) 80.3 Lymph % (Auto) 10.5 Jerauld % (Auto) 4.3 Eos % (Auto) 4.0 Baso % (Auto) 0.5 Neut # (Auto) 15.05 H Lymph # (Auto) 1.96 Jerauld # (Auto) 0.81 H Eos # (Auto) 0.74 H Baso # (Auto) 0.09 Immature Gran # (Auto) 0.08 PT 12.4 H INR 1.2 H Sodium 137 Potassium 4.1 Chloride 102 Carbon Dioxide 28 Anion Gap 7 BUN 21 Creatinine 1.11 Est Cr Clr Drug Dosing 69.3 eGFR 67.55 BUN/Creatinine Ratio 18.9 Glucose 119 H Lactate 2.2 H* Calcium 9.2 Magnesium 1.8 Total Bilirubin 0.3 AST 11 L ALT 15 Alkaline Phosphatase 63 Troponin I High Sens 9.4 B-Natriuretic Peptide 833 H Total Protein 7.6 Albumin 4.0 Globulin 3.6 Albumin/Globulin Ratio 1.1 Procalcitonin < 0.02 Urine Color Yellow Urine Appearance Clear Urine pH 5.0 Ur Specific [place] 1.008 Urine Protein Negative Urine Glucose (UA) Negative Urine Ketones Negative Urine Blood Negative Urine Nitrite Positive A Urine Bilirubin Negative Urine Urobilinogen Negative Ur Leukocyte Esterase 2+ H Urine WBC (Auto) 21-50 H Urine RBC (Auto) 0-2 U Hyaline Cast (Auto) 3-5 H U Epithel Cells (Auto) 0-2 Urine Bacteria (Auto) 4+ H Adenovirus (PCR) B. pertussis DNA (PCR) B.parapertussis DNA PCR C. pneumoniae DNA (PCR) Coronavirus OC43 (PCR) Coronavirus HKU1 (PCR) Coronavirus 229E (PCR) SARS-CoV-2 (PCR) Coronavirus NL63 (PCR) Human Metapneumovir PCR Influenza Type A (PCR) Influenza Type B (PCR) Not Detected M. pneumoniae (PCR) Not Detected Parainfluenza 1 (PCR) Not Detected Parainfluenza 2 (PCR) Not Detected Parainfluenza 3 (PCR) Not Detected Parainfluenza 4 (PCR) Not Detected RSV (RT-PCR) Negative RSV (PCR) Not Detected Entero/Rhino (PCR) Not Detected 08/12/24 08/12/24 08/12/24 13:09 13:45 15:38 WBC RBC Hgb Hct MCV MCH MCHC RDW Std Deviation RDW Coeff of Jerry Plt Count MPV Immature Gran % (Auto) Neut % (Auto) Lymph % (Auto) J[place] % (Auto) Eos % (Auto) Baso % (Auto) Neut # (Auto) Lymph # (Auto) J[place]uld # (Auto) Eos # (Auto) Baso # (Auto) Immature Gran # (Auto) PT INR Sodium Potassium Chloride Carbon Dioxide Anion Gap BUN Creatinine Est Cr Clr Drug Dosing eGFR BUN/Creatinine Ratio Glucose Lactate 4.5 H* 2.5 H* 2.8 H* Calcium Magnesium Total Bilirubin AST ALT Alkaline Phosphatase Troponin I High Sens B-Natriuretic Peptide Total Protein Albumin Globulin Albumin/Globulin Ratio Procalcitonin Urine Color Urine Appearance Urine pH Ur Specific [place] Urine Protein Urine Glucose (UA) Urine Ketones Urine Blood Urine Nitrite Urine Bilirubin Urine Urobilinogen Ur Leukocyte Esterase Urine WBC (Auto) Urine RBC (Auto) U Hyaline Cast (Auto) U Epithel Cells (Auto) Urine Bacteria (Auto) Adenovirus (PCR) B. pertussis DNA (PCR) B.parapertussis DNA PCR C. pneumoniae DNA (PCR) Coronavirus OC43 (PCR) Coronavirus HKU1 (PCR) Coronavirus 229E (PCR) SARS-CoV-2 (PCR) Coronavirus NL63 (PCR) Human Metapneumovir PCR Influenza Type A (PCR) Influenza Type B (PCR) M. pneumoniae (PCR) Parainfluenza 1 (PCR) Parainfluenza 2 (PCR) Parainfluenza 3 (PCR) Parainfluenza 4 (PCR) RSV (RT-PCR) RSV (PCR) Entero/Rhino (PCR) Diagnostic Findings Chest x-ray obtained today reveals a suspected right lower lobe pneumonia and small bilateral pleural effusions. I performed a complete device interrogation of the patient's biventricular ICD with sensing and threshold parameters. No atrial arrhythmias documented since May 30. OptiVol trending upwards but not overtly elevated. Reasonable pacing percentage. Battery longevity of a few months. Echocardiogram 07/29/2024: Severely reduced LV systolic function with ejection fraction of 25 to 30%. Reduced RV systolic function. Mild mitral regurgi tation. Ablation of macro reentrant left atrial Neela- mitral flutter and pulmonary vein isolation 05/30/[address] [facility] ECG Additional Comments: EKG demonstrates atrial sensing and ventricular pacing with occasional PVCs. PG Care Time/CCT Total # of Minutes Spent Total Time Spent with Patient: Total time spent is greater than 50% in coordination of care (as documented) at patient's floor/unit and/or counseling patient: Coding Level of Care Code 89136 INT INP/OBS CARE 3/75MIN Diagnoses HFrEF (heart failure with reduced ejection fraction) I50.20 CAD (coronary artery disease) I25.10 Paroxysmal atrial fibrillation I48.0 PAT (paroxysmal atrial tachycardia) I47.19 Cardiomyopathy I42.9 Presence of biventricular automatic cardioverter/defibrillator (AICD) Z95.810 CPT Codes Implantable Defib Multi lead programming - [id number] ([id number]) 26 - PROFESSIONAL COMPONENT
--- NOTE | 2024-08-12 18:29 | Electrocardiogram Report ---
Test Reason : Blood Pressure : */* mmHG Vent. Rate : 99 BPM Atrial Rate : 101 BPM P-R Int : * ms QRS Dur : 130 ms QT Int : 396 ms P-R-T Axes : 89 123 62 degrees QTcB Int : 508 ms Ventricular-paced rhythm Abnormal ECG When compared with ECG of 25-Jul-2024 16:19, Vent. rate has increased by 15 bpm Confirmed by Tramaine Kruger ([id number]) on 08/12/2024 6:29:22 PM Referred By: [facility] Confirmed By: Tramaine Kruger
[2024-08-12] MEDS: MEROPENEM 500 MG in SYRINGE 0 ML IV SCH (19:34)
[2024-08-12] MEDS ORDERED: ALBUTEROL HFA 8 GM INHALER INH PRN (21:17)
[2024-08-12] MEDS ORDERED: ACETAMINOPHEN 325 MG TAB PO PRN (21:17)
[2024-08-12] MEDS ORDERED: NITROGLYCERIN SL 0.4 MG/TAB TAB SL PRN (21:17)
[2024-08-12] MEDS ORDERED: EPINEPHrine INJ 1 MG/ML AMP IM PRN (21:33)
[2024-08-12] MEDS: POTASSIUM CHLORIDE CRTAB 20 MEQ TABCR PO SCH (22:26)
[2024-08-12] MEDS: PANTOprazole 40 MG TAB PO SCH (22:27)
[2024-08-12] MEDS: DOCUSATE SODIUM 100 MG CAP PO SCH (22:27)
[2024-08-12] MEDS: APIXABAN 5 MG TABLET PO SCH (22:27)
[2024-08-12] MEDS: METOCLOPRAMIDE HCL 5 MG TABLET PO SCH (22:27)
[2024-08-12] MEDS: oxyCODONE HCL 10 MG TABCR (OxyCONTIN) PO SCH (22:27)
[2024-08-13] MEDS: MEROPENEM 500 MG in SYRINGE 0 ML IV SCH (01:32)
[2024-08-13 07:05] LABS: Basophils # (auto) 0.05 K/uL (0.00-0.20); Basophils % (auto) 0.4 %; Eosinophils # (auto) 0.64 K/uL (0.00-0.50); Eosinophils % (auto) 4.7 %; Hematocrit (blood only) 34.9 % (42.0-52.0); Immature Granulocytes # (auto) 0.07 K/uL (0.01-0.20); Immature Granulocytes % (auto) 0.5 %; Lymphocytes # (auto) 2.39 K/uL (1.20-3.40); Lymphocytes % (auto) 17.5 %; Mean Corpuscular Hemoglobin 27.6 pg (25.0-34.0); Mean Corpuscular Hgb Conc 31.5 g/dL (32.0-36.0); Mean Corpuscular Volume 87.7 fL (80.0-100.0); Mean Platelet Volume 10.3 fL (9.4-12.4); Monocytes # (auto) 0.81 K/uL (0.11-0.59); Monocytes % (auto) 5.9 %; Neutrophils # (auto) 9.66 K/uL (1.40-6.50); Platelet Count 339 K/uL (130-400); RDW Coefficient of Variation 14.8 % (11.5-14.5); RDW Standard Deviation 47.7 fL (36.4-46.3); Red Blood Count 3.98 M/uL (4.70-6.10); White Blood Count 13.62 K/ul (4.8-10.8)
[2024-08-13 07:46] LABS: Albumin Globulin Ratio 1.1 (0.9-2); Albumin Level 3.6 gm/dl (3.4-5.0); BUN Creatinine Ratio 19.2 (10-20); Bilirubin,Total 0.5 mg/dl (0.2-1.0); Calcium 8.9 mg/dl (8.6-10.3); Creatinine Clr Calc Pharmacy 72.9 ml/min; Globulin 3.3 gm/dl (2.5-4.0); Potassium 4.2 mmol/L (3.5-5.1); Total Protein 6.9 gm/dl (6.0-8.3)
[2024-08-13] MEDS: CETIRIZINE HCL 10 MG TABLET PO SCH (09:39)
[2024-08-13] MEDS: FINASTERIDE 5 MG TAB PO SCH (09:39)
[2024-08-13] MEDS: buPROPion HCl 100 MG TABLET PO SCH (09:39)
[2024-08-13] MEDS: ASPIRIN 81 MG ECTAB PO SCH (09:39)
--- NOTE | 2024-08-13 10:20 | Cardiology Progress Note ---
Date of Service August 13, 2024 Assessment & Plan (1) HFrEF (heart failure with reduced ejection fraction): (2) CAD (coronary artery disease): (3) Paroxysmal atrial fibrillation: (4) PAT (paroxysmal atrial tachycardia): (5) Cardiomyopathy: (6) Presence of biventricular automatic cardioverter/defibrillator (AICD): Plan 1. Heart failure with reduced ejection fraction: Hypervolemic. He has been admitted on several occasions recently for decompensated heart failure with re duced ejection fraction. I will be very cautious about holding his diuretic. Hemodynamically he seems to be doing better today and his acidosis seems to have resolved. I would like to resume his daily diuretic and towards the end of his hospitalization perhaps be more aggressive with diuresis. 2. Ischemic cardiomyopathy: Severe. Carvedilol presumably discontinued due to concerns over hypotension. There should be no concern regarding bradycardia. I would look to reinitiate his carvedilol at the earliest opportunity. Hemodynamics appear to be favorable today. 3. "Bradycardia": This was artifactual. Frequent PVCs noted. 4. Atrial fibrillation and atrial tachycardia: No documented episodes of atrial fibrillation recently. He underwent catheter-based therapy at 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 This appears to have been successful. No recorded episodes of atrial tachycardia since May 30. At this point would seem reasonable to continue apixaban. The need for long-term anticoagulation can be reassessed in the outpatient setting. 5. Mitral regurgitation: Mild. Not a clinical concern. 6. Normally functioning biventricular ICD nearing the elective replacement interval. At this point it seems that he is overall stable from a heart failure standpoint. However, I would like to reinitiate his standard outpatient regimen as soon as possible. Monitoring his volume status is paramount and he may require more aggressive diuresis as his overall clinical condition improves. Will sign off from routine management at this point, but please do not hesitate to contact cardiology for additional questions or concerns during this hospitalization. Admission and Anticipated Discharge Date Admission Date: August 12, 2024 Subjective This morning the patient had no specific complaints. No discomfort in the lower extremities. No breathing difficulty. No chest pain. No sense of palpitation. Review of Systems Review of Systems: Per HPI. Physical Exam Physical Exam: The patient is alert and oriented. Mood and affect appeared normal. He answered all questions appropriately. HEENT: Pupils are equal and reactive to light and accommodation. Extraocular movements are intact. The sclerae are anicteric. Neuro: Cranial nerves intact. Resting tremor noted Chest: Well-healed device implant site in left upper pectoral area. Lungs: Reduced breath sounds in the mid right lung field with crackles as well. No expiratory wheezing. Normal respiratory effort. Cardiac: Heart demonstrates an irregular rate and rhythm. Normal S1 and S2. No murmurs on examination. Pulses: The patient has palpable radial pulses bilaterally that are equal in intensity Extremities: There was no evidence of hypoperfusion. There is no cyanosis or clubbing. Moderate lower extremity edema. Extremities are also warm to the touch and somewhat erythematous. Some abrasions noted. Skin: Erythema of the lower extremities. Results & Data Vital Signs (Past 12 Hours) Vital Signs Temp Pulse Pulse Resp BP Pulse Ox O2 Del Method 08/13/24 07:40 36.6 C 90 18 111/77 91 Nasal Cannula 08/13/24 03:34 80 25 H 97 08/13/24 03:33 36.6 C 90 20 133/76 96 Room Air, CPAP 08/12/24 23:52 36.8 C 98 H 20 120/70 95 Room Air, CPAP O2 Flow Rate 08/13/24 07:40 2 08/13/24 03:34 2 08/13/24 03:33 08/12/24 23:52 Laboratory Results Abnormal Lab Results 08/12/24 08/12/24 08/12/24 11:40 11:40 11:40 WBC RBC Hgb Hct MCV MCH MCHC RDW Std Deviation RDW Coeff of Jerry Plt Count MPV Immature Gran % (Auto) Neut % (Auto) Lymph % (Auto) [place] % (Auto) Eos % (Auto) Baso % (Auto) Neut # (Auto) Lymph # (Auto) [place] # (Auto) Eos # (Auto) Baso # (Auto) Immature Gran # (Auto) PT INR Sodium Potassium Chloride Carbon Dioxide Anion Gap BUN Creatinine Est Cr Clr Drug Dosing eGFR BUN/Creatinine Ratio Glucose Lactate Calcium Magnesium Total Bilirubin AST ALT Alkaline Phosphatase Troponin I High Sens B-Natriuretic Peptide Total Protein Albumin Globulin Albumin/Globulin Ratio Procalcitonin Urine Color Urine Appearance Urine pH Ur Specific [place] Urine Protein Urine Glucose (UA) Urine Ketones Urine Blood Urine Nitrite Urine Bilirubin Urine Urobilinogen Ur Leukocyte Esterase Urine WBC (Auto) Urine RBC (Auto) U Hyaline Cast (Auto) U Epithel Cells (Auto) Urine Bacteria (Auto) Adenovirus (PCR) Not Detected B. pertussis DNA (PCR) Not Detected B.parapertussis DNA PCR Not Detected C. pneumoniae DNA (PCR) Not Detected Coronavirus OC43 (PCR) Not Detected Coronavirus HKU1 (PCR) Not Detected Coronavirus 229E (PCR) Not Detected SARS-CoV-2 (PCR) NEGATIVE Not Detected Coronavirus NL63 (PCR) Not Detected Human Metapneumovir PCR Not Detected Influenza Type A (PCR) Negative Not Detected Influenza Type B (PCR) Negative M. pneumoniae (PCR) Parainfluenza 1 (PCR) Parainfluenza 2 (PCR) Parainfluenza 3 (PCR) Parainfluenza 4 (PCR) RSV (RT-PCR) RSV (PCR) Entero/Rhino (PCR) 08/12/24 08/12/24 08/12/24 11:40 12:03 12:17 WBC 18.73 H RBC 4.07 L Hgb 11.4 L Hct 36.2 L MCV 88.9 MCH 28.0 MCHC 31.5 L RDW Std Deviation 47.6 H RDW Coeff of Jerry 14.7 H Plt Count 420 H MPV 10.5 Immature Gran % (Auto) 0.4 Neut % (Auto) 80.3 Lymph % (Auto) 10.5 [place] % (Auto) 4.3 Eos % (Auto) 4.0 Baso % (Auto) 0.5 Neut # (Auto) 15.05 H Lymph # (Auto) 1.96 [place] # (Auto) 0.81 H Eos # (Auto) 0.74 H Baso # (Auto) 0.09 Immature Gran # (Auto) 0.08 PT 12.4 H INR 1.2 H Sodium 137 Potassium 4.1 Chloride 102 Carbon Dioxide 28 Anion Gap 7 BUN 21 Creatinine 1.11 Est Cr Clr Drug Dosing 69.3 eGFR 67.55 BUN/Creatinine Ratio 18.9 Glucose 119 H Lactate 2.2 H* Calcium 9.2 Magnesium 1.8 Total Bilirubin 0.3 AST 11 L ALT 15 Alkaline Phosphatase 63 Troponin I High Sens 9.4 B-Natriuretic Peptide 833 H Total Protein 7.6 Albumin 4.0 Globulin 3.6 Albumin/Globulin Ratio 1.1 Procalcitonin < 0.02 Urine Color Yellow Urine Appearance Clear Urine pH 5.0 Ur Specific [place] 1.008 Urine Protein Negative Urine Glucose (UA) Negative Urine Ketones Negative Urine Blood Negative Urine Nitrite Positive A Urine Bilirubin Negative Urine Urobilinogen Negative Ur Leukocyte Esterase 2+ H Urine WBC (Auto) 21-50 H Urine RBC (Auto) 0-2 U Hyaline Cast (Auto) 3-5 H U Epithel Cells (Auto) 0-2 Urine Bacteria (Auto) 4+ H Adenovirus (PCR) B. pertussis DNA (PCR) B.parapertussis DNA PCR C. pneumoniae DNA (PCR) Coronavirus OC43 (PCR) Coronavirus HKU1 (PCR) Coronavirus 229E (PCR) SARS-CoV-2 (PCR) Coronavirus NL63 (PCR) Human Metapneumovir PCR Influenza Type A (PCR) Influenza Type B (PCR) Not Detected M. pneumoniae (PCR) Not Detected Parainfluenza 1 (PCR) Not Detected Parainfluenza 2 (PCR) Not Detected Parainfluenza 3 (PCR) Not Detected Parainfluenza 4 (PCR) Not Detected RSV (RT-PCR) Negative RSV (PCR) Not Detected Entero/Rhino (PCR) Not Detected 08/12/24 08/12/24 08/12/24 13:09 13:45 15:38 WBC RBC Hgb Hct MCV MCH MCHC RDW Std Deviation RDW Coeff of Jerry Plt Count MPV Immature Gran % (Auto) Neut % (Auto) Lymph % (Auto) [place] % (Auto) Eos % (Auto) Baso % (Auto) Neut # (Auto) Lymph # (Auto) [place] # (Auto) Eos # (Auto) Baso # (Auto) Immature Gran # (Auto) PT INR Sodium Potassium Chloride Carbon Dioxide Anion Gap BUN Creatinine Est Cr Clr Drug Dosing eGFR BUN/Creatinine Ratio Glucose Lactate 4.5 H* 2.5 H* 2.8 H* Calcium Magnesium Total Bilirubin AST ALT Alkaline Phosphatase Troponin I High Sens B-Natriuretic Peptide Total Protein Albumin Globulin Albumin/Globulin Ratio Procalcitonin Urine Color Urine Appearance Urine pH Ur Specific [place] Urine Protein Urine Glucose (UA) Urine Ketones Urine Blood Urine Nitrite Urine Bilirubin Urine Urobilinogen Ur Leukocyte Esterase Urine WBC (Auto) Urine RBC (Auto) U Hyaline Cast (Auto) U Epithel Cells (Auto) Urine Bacteria (Auto) Adenovirus (PCR) B. pertussis DNA (PCR) B.parapertussis DNA PCR C. pneumoniae DNA (PCR) Coronavirus OC43 (PCR) Coronavirus HKU1 (PCR) Coronavirus 229E (PCR) SARS-CoV-2 (PCR) Coronavirus NL63 (PCR) Human Metapneumovir PCR Influenza Type A (PCR) Influenza Type B (PCR) M. pneumoniae (PCR) Parainfluenza 1 (PCR) Parainfluenza 2 (PCR) Parainfluenza 3 (PCR) Parainfluenza 4 (PCR) RSV (RT-PCR) RSV (PCR) Entero/Rhino (PCR) 08/13/24 08/13/24 06:19 08:19 WBC 13.62 H RBC 3.98 L Hgb 11.0 L Hct 34.9 L MCV 87.7 MCH 27.6 MCHC 31.5 L RDW Std Deviation 47.7 H RDW Coeff of Jerry 14.8 H Plt Count 339 MPV 10.3 Immature Gran % (Auto) 0.5 Neut % (Auto) 71.0 Lymph % (Auto) 17.5 [place] % (Auto) 5.9 Eos % (Auto) 4.7 Baso % (Auto) 0.4 Neut # (Auto) 9.66 H Lymph # (Auto) 2.39 [place] # (Auto) 0.81 H Eos # (Auto) 0.64 H Baso # (Auto) 0.05 Immature Gran # (Auto) 0.07 PT INR Sodium 139 Potassium 4.2 Chloride 105 Carbon Dioxide 25 Anion Gap 9 BUN 20 Creatinine 1.04 Est Cr Clr Drug Dosing 72.9 eGFR 73.04 BUN/Creatinine Ratio 19.2 Glucose 111 H Lactate 1.9 Calcium 8.9 Magnesium Total Bilirubin 0.5 AST 11 L ALT 11 Alkaline Phosphatase 60 Troponin I High Sens B-Natriuretic Peptide Total Protein 6.9 Albumin 3.6 Globulin 3.3 Albumin/Globulin Ratio 1.1 Procalcitonin Urine Color Urine Appearance Urine pH Ur Specific [place] Urine Protein Urine Glucose (UA) Urine Ketones Urine Blood Urine Nitrite Urine Bilirubin Urine Urobilinogen Ur Leukocyte Esterase Urine WBC (Auto) Urine RBC (Auto) U Hyaline Cast (Auto) U Epithel Cells (Auto) Urine Bacteria (Auto) Adenovirus (PCR) B. pertussis DNA (PCR) B.parapertussis DNA PCR C. pneumoniae DNA (PCR) Coronavirus OC43 (PCR) Coronavirus HKU1 (PCR) Coronavirus 229E (PCR) SARS-CoV-2 (PCR) Coronavirus NL63 (PCR) Human Metapneumovir PCR Influenza Type A (PCR) Influenza Type B (PCR) M. pneumoniae (PCR) Parainfluenza 1 (PCR) Parainfluenza 2 (PCR) Parainfluenza 3 (PCR) Parainfluenza 4 (PCR) RSV (RT-PCR) RSV (PCR) Entero/Rhino (PCR) Diagnostic Findings Abnormal Lab Results 08/12/24 08/12/24 08/12/24 11:40 11:40 11:40 WBC RBC Hgb Hct MCV MCH MCHC RDW Std Deviation RDW Coeff of Jerry Plt Count MPV Immature Gran % (Auto) Neut % (Auto) Lymph % (Auto) [place] % (Auto) Eos % (Auto) Baso % (Auto) Neut # (Auto) Lymph # (Auto) [place] # (Auto) Eos # (Auto) Baso # (Auto) Immature Gran # (Auto) PT INR Sodium Potassium Chloride Carbon Dioxide Anion Gap BUN Creatinine Est Cr Clr Drug Dosing eGFR BUN/Creatinine Ratio Glucose Lactate Calcium Magnesium Total Bilirubin AST ALT Alkaline Phosphatase Troponin I High Sens B-Natriuretic Peptide Total Protein Albumin Globulin Albumin/Globulin Ratio Procalcitonin Urine Color Urine Appearance Urine pH Ur Specific [place] Urine Protein Urine Glucose (UA) Urine Ketones Urine Blood Urine Nitrite Urine Bilirubin Urine Urobilinogen Ur Leukocyte Esterase Urine WBC (Auto) Urine RBC (Auto) U Hyaline Cast (Auto) U Epithel Cells (Auto) Urine Bacteria (Auto) Adenovirus (PCR) Not Detected B. pertussis DNA (PCR) Not Detected B.parapertussis DNA PCR Not Detected C. pneumoniae DNA (PCR) Not Detected Coronavirus OC43 (PCR) Not Detected Coronavirus HKU1 (PCR) Not Detected Coronavirus 229E (PCR) Not Detected SARS-CoV-2 (PCR) NEGATIVE Not Detected Coronavirus NL63 (PCR) Not Detected Human Metapneumovir PCR Not Detected Influenza Type A (PCR) Negative Not Detected Influenza Type B (PCR) Negative M. pneumoniae (PCR) Parainfluenza 1 (PCR) Parainfluenza 2 (PCR) Parainfluenza 3 (PCR) Parainfluenza 4 (PCR) RSV (RT-PCR) RSV (PCR) Entero/Rhino (PCR) 08/12/24 08/12/24 08/12/24 11:40 12:03 12:17 WBC 18.73 H RBC 4.07 L Hgb 11.4 L Hct 36.2 L MCV 88.9 MCH 28.0 MCHC 31.5 L RDW Std Deviation 47.6 H RDW Coeff of Jerry 14.7 H Plt Count 420 H MPV 10.5 Immature Gran % (Auto) 0.4 Neut % (Auto) 80.3 Lymph % (Auto) 10.5 [place] % (Auto) 4.3 Eos % (Auto) 4.0 Baso % (Auto) 0.5 Neut # (Auto) 15.05 H Lymph # (Auto) 1.96 [place] # (Auto) 0.81 H Eos # (Auto) 0.74 H Baso # (Auto) 0.09 Immature Gran # (Auto) 0.08 PT 12.4 H INR 1.2 H Sodium 137 Potassium 4.1 Chloride 102 Carbon Dioxide 28 Anion Gap 7 BUN 21 Creatinine 1.11 Est Cr Clr Drug Dosing 69.3 eGFR 67.55 BUN/Creatinine Ratio 18.9 Glucose 119 H Lactate 2.2 H* Calcium 9.2 Magnesium 1.8 Total Bilirubin 0.3 AST 11 L ALT 15 Alkaline Phosphatase 63 Troponin I High Sens 9.4 B-Natriuretic Peptide 833 H Total Protein 7.6 Albumin 4.0 Globulin 3.6 Albumin/Globulin Ratio 1.1 Procalcitonin < 0.02 Urine Color Yellow Urine Appearance Clear Urine pH 5.0 Ur Specific [place] 1.008 Urine Protein Negative Urine Glucose (UA) Negative Urine Ketones Negative Urine Blood Negative Urine Nitrite Positive A Urine Bilirubin Negative Urine Urobilinogen Negative Ur Leukocyte Esterase 2+ H Urine WBC (Auto) 21-50 H Urine RBC (Auto) 0-2 U Hyaline Cast (Auto) 3-5 H U Epithel Cells (Auto) 0-2 Urine Bacteria (Auto) 4+ H Adenovirus (PCR) B. pertussis DNA (PCR) B.parapertussis DNA PCR C. pneumoniae DNA (PCR) Coronavirus OC43 (PCR) Coronavirus HKU1 (PCR) Coronavirus 229E (PCR) SARS-CoV-2 (PCR) Coronavirus NL63 (PCR) Human Metapneumovir PCR Influenza Type A (PCR) Influenza Type B (PCR) Not Detected M. pneumoniae (PCR) Not Detected Parainfluenza 1 (PCR) Not Detected Parainfluenza 2 (PCR) Not Detected Parainfluenza 3 (PCR) Not Detected Parainfluenza 4 (PCR) Not Detected RSV (RT-PCR) Negative RSV (PCR) Not Detected Entero/Rhino (PCR) Not Detected 08/12/24 08/12/24 08/12/24 13:09 13:45 15:38 WBC RBC Hgb Hct MCV MCH MCHC RDW Std Deviation RDW Coeff of Jerry Plt Count MPV Immature Gran % (Auto) Neut % (Auto) Lymph % (Auto) [place] % (Auto) Eos % (Auto) Baso % (Auto) Neut # (Auto) Lymph # (Auto) [place] # (Auto) Eos # (Auto) Baso # (Auto) Immature Gran # (Auto) PT INR Sodium Potassium Chloride Carbon Dioxide Anion Gap BUN Creatinine Est Cr Clr Drug Dosing eGFR BUN/Creatinine Ratio Glucose Lactate 4.5 H* 2.5 H* 2.8 H* Calcium Magnesium Total Bilirubin AST ALT Alkaline Phosphatase Troponin I High Sens B-Natriuretic Peptide Total Protein Albumin Globulin Albumin/Globulin Ratio Procalcitonin Urine Color Urine Appearance Urine pH Ur Specific [place] Urine Protein Urine Glucose (UA) Urine Ketones Urine Blood Urine Nitrite Urine Bilirubin Urine Urobilinogen Ur Leukocyte Esterase Urine WBC (Auto) Urine RBC (Auto) U Hyaline Cast (Auto) U Epithel Cells (Auto) Urine Bacteria (Auto) Adenovirus (PCR) B. pertussis DNA (PCR) B.parapertussis DNA PCR C. pneumoniae DNA (PCR) Coronavirus OC43 (PCR) Coronavirus HKU1 (PCR) Coronavirus 229E (PCR) SARS-CoV-2 (PCR) Coronavirus NL63 (PCR) Human Metapneumovir PCR Influenza Type A (PCR) Influenza Type B (PCR) M. pneumoniae (PCR) Parainfluenza 1 (PCR) Parainfluenza 2 (PCR) Parainfluenza 3 (PCR) Parainfluenza 4 (PCR) RSV (RT-PCR) RSV (PCR) Entero/Rhino (PCR) 08/13/24 08/13/24 06:19 08:19 WBC 13.62 H RBC 3.98 L Hgb 11.0 L Hct 34.9 L MCV 87.7 MCH 27.6 MCHC 31.5 L RDW Std Deviation 47.7 H RDW Coeff of Jerry 14.8 H Plt Count 339 MPV 10.3 Immature Gran % (Auto) 0.5 Neut % (Auto) 71.0 Lymph % (Auto) 17.5 [place] % (Auto) 5.9 Eos % (Auto) 4.7 Baso % (Auto) 0.4 Neut # (Auto) 9.66 H Lymph # (Auto) 2.39 [place] # (Auto) 0.81 H Eos # (Auto) 0.64 H Baso # (Auto) 0.05 Immature Gran # (Auto) 0.07 PT INR Sodium 139 Potassium 4.2 Chloride 105 Carbon Dioxide 25 Anion Gap 9 BUN 20 Creatinine 1.04 Est Cr Clr Drug Dosing 72.9 eGFR 73.04 BUN/Creatinine Ratio 19.2 Glucose 111 H Lactate 1.9 Calcium 8.9 Magnesium Total Bilirubin 0.5 AST 11 L ALT 11 Alkaline Phosphatase 60 Troponin I High Sens B-Natriuretic Peptide Total Protein 6.9 Albumin 3.6 Globulin 3.3 Albumin/Globulin Ratio 1.1 Procalcitonin Urine Color Urine Appearance Urine pH Ur Specific [place] Urine Protein Urine Glucose (UA) Urine Ketones Urine Blood Urine Nitrite Urine Bilirubin Urine Urobilinogen Ur Leukocyte Esterase Urine WBC (Auto) Urine RBC (Auto) U Hyaline Cast (Auto) U Epithel Cells (Auto) Urine Bacteria (Auto) Adenovirus (PCR) B. pertussis DNA (PCR) B.parapertussis DNA PCR C. pneumoniae DNA (PCR) Coronavirus OC43 (PCR) Coronavirus HKU1 (PCR) Coronavirus 229E (PCR) SARS-CoV-2 (PCR) Coronavirus NL63 (PCR) Human Metapneumovir PCR Influenza Type A (PCR) Influenza Type B (PCR) M. pneumoniae (PCR) Parainfluenza 1 (PCR) Parainfluenza 2 (PCR) Parainfluenza 3 (PCR) Parainfluenza 4 (PCR) RSV (RT-PCR) RSV (PCR) Entero/Rhino (PCR) PG Care Time/CCT Total # of Minutes Spent Total Time Spent with Patient: Total time spent is greater than 50% in coordination of care (as documented) at patient's floor/unit and/or counseling patient: Coding Level of Care Code 19349 SUB INP/OBS CARE 2/35MIN Diagnoses HFrEF (heart failure with reduced ejection fraction) I50.20 CAD (coronary artery disease) I25.10 Paroxysmal atrial fibrillation I48.0 PAT (paroxysmal atrial tachycardia) I47.19 Cardiomyopathy I42.9 Presence of biventricular automatic cardioverter/defibrillator (AICD) Z95.810
--- NOTE | 2024-08-13 14:50 | Hospitalist Progress Note ---
Date of Service August 13, 2024 Assessment & Plan (1) Acute hypoxemic respiratory failure: Plan: I suspect this is related to both PNA and volume overload meropenem, check nasal MRSA will introduce diuretics upon stability of infection speech to eval for microaspiration discussed oral hyigene (2) Pneumonia: Plan: c/w meropenem, he's likely need longer course such as 10-14 days check nasal MRSA (3) Complicated urinary tract infection: Plan: need to ensure ray catheter is changed he has Parkinson and at risk for flomax Plan Royce is a 79-year-old gentleman with history of CAD, COPD, sick sinus s/p pacemaker, sleep apnea on BiPAP, A-fib, CHF, Parkinson He was just discharged from the hospital with acute respiratory failure CHF exacerbation catheter associated UTI and pneumonia he was seen by [facility] on 08/11 on 08/12, he's was having shakiness, unsteady, found to hypoxic in the 40s, and tachycardia he's was found to has recurrent PNA, UTI. 1. recurrent PNA 2. recurrent UTI 3. acute on chronic respiratory failure acute volume overload 4. hx of CHF, CAD, sick sinus s/p pacemaker 5. sleep apnea on BipPAP 6. A-fib 7. Parkinson disease 8 neuropathy 9. cellulitis 10. hx of DVT overall plan c/w meropenem for both PNA and UTI need to ensure WBC downtrend in addition. orthostatic BP, repeat CXR was advised to change his oxygen tube and bipap mask once infection under control, begin diuretics duplex to r/o DVT 1. acute on chronic respiratory failure pneumonia meropenem, nasal MRSA. mucinex. duplex US to r/o DVT cardiology noted about hypervolumic will re-introduce diuretics over next 24-48 hours 2. recurrent UTI-he's on meropenem 3. left leg cellulitis. duplex US 4. CHF with reduced EF EF of 25-30%, global hypokinies coreg, entresto; statin may need ischemia evaluation 5. bradycardia; cardiology this is an artifical finding 6. A-fib, he's on eliquis. 7. parkinson disease -pramipexole 0.375mg daily 8. left heel wound--wound care evaluation 9. GERD- PPI 10. chronic pain syndrome Admission and Anticipated Discharge Date Admission Date: August 12, 2024 Subjective He still have significant shortness of breath on 2 to 3 L Recurrent infection he is on meropenem treating him for pneumonia UTI Review of Systems Review of Systems: Constitutional: No Weight Change, No Fever, No Chills, No Night Sweats, No Fatigue, No Malaise Cardiovascular: no chest pain; + for shortness of breath; + for congestion; denied orthopnea; + for sputum production Gastrointestinal: No Nausea, No Vomiting, No Diarrhea, No Constipation, No Pain, No Heartburn, No Anorexia, No Dysphagia, Genitourinary: recurrent UTI; Skin: No Skin Lesions, No Pruritis, No Hair Changes, No Breast/Skin Changes, No Nipple Discharge Neuro: No Weakness, No Numbness, No Paresthesias, No Loss of Consciousness, No Syncope, No Dizziness, No Headache, No Coordination Changes, No Recent Falls Psych: No Anxiety/Panic, No Depression, No Insomnia, No Personality Changes, No Delusions, No Rumination, No SI/HI/AH/VH, No Social Issues, No Memory Changes, No Violence/Abuse Hx., No Eating Concerns Heme/Lymph: No Bruising, No Bleeding, No Transfusions History, No Lymphadenopathy Physical Exam Physical Exam: VITALS: Reviewed. WEIGHT/BMI reviewed. GEN: non-toxic appearing; chronically ill -Head: NC/AT; -Mouth and throat: MMM. Normal gums, muc miesha, palate,. Good dentition. NECK: Supple, with no masses. CV: RRR, no m/r/g. LUNGS: decrease breath sound; 2-3 liter oxygen; coughing spell ABD: Soft, NT/ND, NBS, no masses or organomegaly. : N/A SKIN: Warm, well perfused. No skin rashes or abnormal lesions. MSK: No deformities, Normal gait. EXT: No clubbing, cyanosis, or edema. NEURO: AAox3; Results & Data Results & Data Vital Signs (Past 12 Hours) Vital Signs Temp Pulse Pulse Resp BP Pulse Ox O2 Del Method 08/13/24 12:05 36.4 C L 98 H 18 102/69 95 Nasal Cannula 08/13/24 08:00 Nasal Cannula 08/13/24 07:40 36.6 C 90 18 111/77 91 Nasal Cannula 08/13/24 03:34 80 25 H 97 08/13/24 03:33 36.6 C 90 20 133/76 96 Room Air, CPAP O2 Flow Rate 08/13/24 12:05 2 08/13/24 08:00 2 08/13/24 07:40 2 08/13/24 03:34 2 08/13/24 03:33 Laboratory Results Abnormal lab results 08/12/24 08/13/24 Range/Units 15:38 06:19 WBC 13.62 H (4.8-10.8) K/ul RBC 3.98 L (4.70-6.10) M/uL Hgb 11.0 L (14.0-18.0) g/dl Hct 34.9 L (42.0-52.0) % MCHC 31.5 L (32.0-36.0) g/dL RDW Std Deviation 47.7 H (36.4-46.3) fL RDW Coeff of Jerry 14.8 H (11.5-14.5) % Neut # (Auto) 9.66 H (1.40-6.50) K/uL Cassia # (Auto) 0.81 H (0.11-0.59) K/uL Eos # (Auto) 0.64 H (0.00-0.50) K/uL Glucose 111 H (70-99(Fasting)) mg/dl Lactate 2.8 H* (0.4-2.0) mmol/L AST 11 L (13-39) U/L Diagnostic Findings Chest X-Ray 08/12/24 11:40 Clinical History: Dyspnea Technique: A frontal view of the chest was obtained Comparison is made to the prior examination dated 07/29/2024 Findings: There is new right lower lobe consolidation, likely due to pneumonia. There is a small right pleural effusion and there is also a possible small left pleural effusion. The heart is mildly enlarged. No definite pneumothorax is seen. There is no definite pulmonary nodule. No fracture is noted. There is a left chest wall pacemaker device Impression: 1. Suspected right lower lobe pneumonia 2. Small bilateral pleural effusions 3. Mild cardiomegaly ACT 112: Positive. There are findings on this exam that require communication between the performing entity and the patient following Patient Test Result Information Act ([place] ACT 112) guidelines. Electronically signed by Jatin Robertson 08-12-2024 12:34 PM Medications Administered Current Inpatient Medications Acetaminophen (Acetaminophen 325 Mg Tab) 650 mg PO Q6H PRN PRN Reason: Pain/Fever Stop: 09/11/24 21:16 Al Hydrox/Mg Hydrox/Simethicone (Aluminum/Magnesium/Simeth (Maalox Max) 30 Ml Udc) 15 ml PO DAILY PRN PRN Reason: Heartburn Stop: 09/11/24 21:30 Albuterol (Albuterol Hfa 8 Gm Inhaler) 2 puffs INH Q6H PRN PRN Reason: Shortness Of Breath Or Wheezing Stop: 09/11/24 21:16 Apixaban (Apixaban 5 Mg Tablet) 5 mg PO BID [facility] Stop: 09/11/24 21:16 Last Admin: 08/13/24 09:39 Dose: 5 mg Aspirin (Aspirin 81 Mg Ectab) 81 mg PO QAM [facility] Stop: 09/12/24 08:59 Last Admin: 08/13/24 09:39 Dose: 81 mg Bupropion HCl (Bupropion Hcl 100 Mg Tablet) 100 mg PO BID@0900,1400 [facility] Stop: 09/12/24 08:59 Last Admin: 08/13/24 13:01 Dose: 100 mg Cetirizine HCl (Cetirizine Hcl 10 Mg Tablet) 10 mg PO QDB [facility] Stop: 09/12/24 07:29 Last Admin: 08/13/24 09:39 Dose: 10 mg Docusate Sodium (Docusate Sodium 100 Mg Cap) 100 mg PO BID [facility] Stop: 09/11/24 21:16 Last Admin: 08/13/24 09:39 Dose: 100 mg Epinephrine HCl (Epinephrine Inj 1 Mg/Ml Amp) 0.3 mg IM ONE PRN PRN Reason: SEVERE allergic rxn Finasteride (Finasteride 5 Mg Tab) 5 mg PO QAM [facility] Stop: 09/12/24 08:59 Last Admin: 08/13/24 09:39 Dose: 5 mg Guaifenesin (Guaifenesin 600 Mg Tabcr) 600 mg PO Q12 [facility] Stop: 09/12/24 20:59 Meropenem 500 mg/ Syringe 10 mls @ 2 mls/min IV Q6H [facility]; Protocol Stop: 08/18/24 01:29 Last Admin: 08/13/24 13:02 Dose: 2 mls/min Metoclopramide HCl (Metoclopramide Hcl 5 Mg Tablet) 5 mg PO BID [facility] Stop: 09/11/24 21:16 Last Admin: 08/13/24 09:39 Dose: 5 mg Miscellaneous (Order Awaiting Action: Pramipexole Er 0.375mg) 1 each N/A QS [facility] Stop: 09/12/24 00:00 Last Admin: 08/13/24 09:40 Dose: Not Given Nitroglycerin (Nitroglycerin Sl 0.4 Mg/Tab Tab) 0.4 mg SL Q5M PRN PRN Reason: Chest Pain Stop: 09/11/24 21:16 Oxycodone HCl (Oxycodone Hcl 10 Mg Tabcr (Oxycontin)) 10 mg PO BID [facility] Stop: 08/26/24 21:16 Last Admin: 08/13/24 09:39 Dose: 10 mg Pantoprazole Sodium (Pantoprazole 40 Mg Tab) 40 mg PO BID [facility] Stop: 09/11/24 21:16 Last Admin: 08/13/24 09:40 Dose: 40 mg Potassium Chloride (Potassium Chloride Crtab 20 Meq Tabcr) 20 meq PO BID [facility] Stop: 09/11/24 21:16 Last Admin: 08/13/24 09:39 Dose: 20 meq PG Care Time/CCT Total # of Minutes Spent Total Time Spent with Patient: Total time spent is greater than 50% in coordination of care (as documented) at patient's floor/unit and/or counseling patient: Coding Level of Care Code 08481 SUB INP/OBS CARE 2/35MIN Diagnoses Acute hypoxemic respiratory failure J96.01 Pneumonia J18.9 Complicated urinary tract infection N39.0 Time Spent (min) 35
[2024-08-13] MEDS: carvediloL 3.125 MG TAB PO SCH (16:26)
[2024-08-13] MEDS: guaiFENesin 600 MG TABCR PO SCH (21:35)
--- NOTE | 2024-08-14 08:13 | Hospitalist Progress Note ---
Date of Service August 14, 2024 Assessment & Plan (1) Pneumonia: (2) Complicated urinary tract infection: (3) Acute exacerbation of CHF (congestive heart failure): (4) HFrEF (heart failure with reduced ejection fraction): (5) History of venous thromboembolism: (6) BPH loc w urin obs/LUTS: (7) CAD (coronary artery disease): (8) Sleep apnea: (9) Presence of combination internal cardiac defibrillator (ICD) and pacemaker: Plan #Pneumonia -Ongoing SOB on and off for 2-3 weeks -Chest Xray reveals Right lower Pneumonia -WBC count high, pro lee ann normal, elevated lactate -Received Ertapenem in the ED Plan -Start Meropenem -Duoneb inhaler PRN -Intensive spirometer - O2 as per protocol -F/U Blood Culture -F/U Respi Biofire Panel -F/U sputum culture # Recurrent UTI -Urine culture positive for ESBL in the past - Urinalysis suggestive of UTI -Urine culture pending Plan -Start Meropenem. Urine culture positive for ESBL in the past sensitive to Meropenem. -F/U blood culture # Cellulitis of LLE -Increase in swelling of LLE since last 1-2 days -O/E: Swelling, erythematous and warm Plan -Start IV Meropenem -F/U Blood culture -Monitor WBC and Temperature curve #PAF with pacer in setting of Acute HFrEF exacerbation -TTE on 07/29 reveals severely reduced left ventricular function -Cautious IV fluid in setting of HF with Bradycardia -Hold Carvedilol and Entresto in setting of Bradycardia -Continue Eliquis and Aspirin -Cardiology Consultation #Deconditioning -In setting of multiple comorbidities -PT/OT evaluation #Chronic Condition Parkinsonism: Continue Pramipexole Chronic pain syndrome: Continue oxycodone BPH: Continue Finasteride Dispo Admit: Med/Surg with Telemetry VTE prophylaxis: Eliquis Code: Full Admission and Anticipated Discharge Date Admission Date: August 12, 2024 Subjective He still have significant shortness of breath on 2 to 3 L Recurrent infection he is on meropenem treating him for pneumonia UTI Review of Systems Review of Systems: As per HPI Physical Exam Constitutional: WD/WN, vitals as above well developed; no acute distress Eyes: PERRL, conjunctivae normal, anicteric sclerae ENMT: external ear and nose normal, oropharynx normal Ears: no hearing impairment Neck: trachea midline, no thyromegaly trachea midline Respiratory: normal respiratory effort, lungs clear to auscultation normal respiratory effort and + respiratory distress; no labored breathing and no retractions Auscultation: lungs clear to auscultation bilaterally and + diminished lung sounds Cardiovascular: RRR, no murmur, no edema Rate/Rhythm: regular rate and regular rhythm Chest (Breasts): normal inspection/palpation of breasts Chest: normal inspection of chest Musculoskeletal: Extremities: + lower leg abnormality (2+ pitting edema of bilateral lower extremity below knee) Results & Data Results & Data Vital Signs (Past 12 Hours) Vital Signs Temp Pulse Pulse Resp BP Pulse Ox O2 Del Method 08/14/24 07:27 36.5 C 81 22 112/72 94 Nasal Cannula 08/14/24 07:26 Nasal Cannula 08/14/24 05:46 90 08/14/24 03:16 36.6 C 81 20 110/72 92 Room Air, CPAP 08/14/24 02:17 87 28 H 97 08/14/24 00:06 36.6 C 81 20 108/73 94 Nasal Cannula 08/13/24 23:25 92 H 32 H 93 08/13/24 21:45 90 O2 Flow Rate 08/14/24 07:27 2 08/14/24 07:26 2 08/14/24 05:46 08/14/24 03:16 08/14/24 02:17 2 08/14/24 00:06 2 08/13/24 23:25 2 08/13/24 21:45
[2024-08-14 09:41] LABS: Albumin Level 3.3 gm/dl (3.4-5.0); BUN Creatinine Ratio 20.2 (10-20); Bilirubin,Total 0.6 mg/dl (0.2-1.0); Calcium 8.6 mg/dl (8.6-10.3); Creatinine Clr Calc Pharmacy 77.1 ml/min; Globulin 3.3 gm/dl (2.5-4.0); Potassium 4.8 mmol/L (3.5-5.1); Total Protein 6.6 gm/dl (6.0-8.3)
--- NOTE | 2024-08-14 09:41 | Ultrasound Report ---
BILATERAL LOWER EXTREMITY VENOUS DOPPLER CLINICAL HISTORY: leg cellulitis, r/o DVT COMPARISON STUDY: Left lower extremity venous Doppler ultrasound July 30, 2022. Right lower extremit y venous Doppler ultrasound June 12, 2015. TECHNIQUE: Sonography of the deep venous system of the bilateral lower extremities was performed. Co mpression and augmentation were evaluated. FINDINGS: The bilateral common femoral, superficial femoral and popliteal veins were compressible. L inear echogenic material within one of 2 paired right peroneal veins is present. This favors chronic thrombus. No additional sites of venous thrombus within the lower extremities are present. IMPRESSION: 1. No evidence of acute deep venous thrombus within the bilateral lower extremities. 2. Linear echogenic material within one of 2 paired right peroneal veins. This favors a small amount of chronic deep venous thrombus. ACT 112: Negative or not required by law. Electronically signed by: Adam Benson M.D. 08/14/2024 9:40 AM
[2024-08-14 10:09] LABS: Hematocrit (blood only) 33.3 % (42.0-52.0); Hemoglobin 10.6 g/dl (14.0-18.0); Mean Corpuscular Hemoglobin 28.6 pg (25.0-34.0); Mean Corpuscular Hgb Conc 31.8 g/dL (32.0-36.0); Mean Corpuscular Volume 89.8 fL (80.0-100.0); Mean Platelet Volume 10.6 fL (9.4-12.4); Platelet Count 347 K/uL (130-400); RDW Coefficient of Variation 14.8 % (11.5-14.5); RDW Standard Deviation 48.3 fL (36.4-46.3); Red Blood Count 3.71 M/uL (4.70-6.10); White Blood Count 11.36 K/ul (4.8-10.8)
--- NOTE | 2024-08-14 12:53 | Electrocardiogram Report ---
Test Reason : Blood Pressure : */* mmHG Vent. Rate : 92 BPM Atrial Rate : 91 BPM P-R Int : * ms QRS Dur : 134 ms QT Int : 438 ms P-R-T Axes : 74 150 -71 degrees QTcB Int : 541 ms Ventricular-paced rhythm Abnormal ECG When compared with ECG of 12-Aug-2024 11:33, Vent. rate has decreased by 7 bpm Confirmed by Eleazar Mcgowan ([id number]) on 08/14/2024 12:46:41 PM [facility] Confirmed By: Eleazar Mcgowan
[2024-08-14] MEDS: PRAMIPEXOLE 0.375 MG PO SCH (12:59)
[2024-08-14] MEDS ORDERED: ENOXAPARIN 1.5 MG/KG SC SCH (15:00)
--- NOTE | 2024-08-14 16:39 | Hospitalist Progress Note ---
Date of Service August 14, 2024 Assessment & Plan (1) Acute hypoxemic respiratory failure: Plan: I suspect this is related to both PNA and volume overload meropenem, check nasal MRSA will introduce diuretics upon stability of infection speech to eval for microaspiration discussed oral hyigene (2) Pneumonia: Plan: c/w meropenem, he's likely need longer course such as 10-14 days check nasal MRSA (3) Complicated urinary tract infection: Plan: need to ensure ray catheter is changed he has Parkinson and at risk for flomax Plan Royce is a 79-year-old gentleman with history of CAD, COPD, sick sinus s/p pacemaker, sleep apnea on BiPAP, A-fib, CHF, Parkinson He was just discharged from the hospital with acute respiratory failure CHF exacerbation catheter associated UTI and pneumonia he was seen by [facility] on 08/11 on 08/12, he's was having shakiness, unsteady, found to hypoxic in the 40s, and tachycardia he's was found to has recurrent PNA, UTI. 1. recurrent PNA 2. recurrent UTI 3. acute on chronic respiratory failure acute volume overload 4. hx of CHF, CAD, sick sinus s/p pacemaker 5. sleep apnea on BipPAP 6. A-fib 7. Parkinson disease 8 neuropathy 9. cellulitis 10. hx of DVT overall plan chest pain episode switching from eliqus BID to lovenox empirically coverage for PE until CTA return f/u on echo, may need ischemia eval c/w meropenem for his PNA he's need 12-14 days course as he's never fully recovered from his PNA in addition, hypertonic saline for mucolytics BP still unstable, hold off on diuretics 1. chest pain episode f/u on CTA, f/u on echo his duplex US found chronic DVT switching from eliquis 5mg BID to lovenox treatment dose if he has PE, then treatment over next 48 hours acute on chronic respiratory failure pneumonia meropenem, nasal MRSA. mucinex. duplex US to r/o DVT once his BP improved, then slow introduce his diuretics . recurrent UTI-he's on meropenem left leg cellulitis. duplex US 4. CHF with reduced EF EF of 25-30%, global hypokinies coreg, entresto; statin may need ischemia evaluation 5. bradycardia; cardiology this is an artificial finding 6. A-fib, he's on eliquis. 7. parkinson disease -pramipexole 0.375mg daily 8. left heel wound--wound care evaluation 9. GERD- PPI 10. chronic pain syndrome Admission and Anticipated Discharge Date Admission Date: August 12, 2024 Subjective He was having chest pain episode, duplex ultrasound found chronic DVT We switched his Eliquis to Lovenox treatment dose, Will plan for CTA to rule out PE we will c/w meropenem for his PNA and UTI added hypertoic saline Review of Systems Review of Systems: Constitutional: No Weight Change, No Fever, No Chills, No Night Sweats, No Fatigue, No Malaise Cardiovascular: + for chest pain; no palpitation; no orthopnea pulmonary: + for shortness of breath; + for congestion Gastrointestinal: no abdominal pain Genitourinary: + for recurrent UTI; no blood Neuro: + for severe parkinson Physical Exam Physical Exam: VITALS: Reviewed. WEIGHT/BMI reviewed. GEN: Healthy appearing, well-developed, NAD. -Head: NC/AT; -Mouth and throat: MMM. Normal gums, muc miesha, palate,. Good dentition. NECK: Supple, with no masses. CV: RRR, no m/r/g. LUNGS: congested breath sound; no wheezing; on 2-3 liter ABD: Soft, NT/ND, NBS, no masses or organomegaly. : no ray MSK: No deformities, Normal gait. NEURO: AAox3 ; hypophonia Results & Data Results & Data Vital Signs (Past 12 Hours) Vital Signs Temp Pulse Pulse Resp BP Pulse Ox O2 Del Method 08/14/24 16:19 94 H 22 92 Nasal Cannula 08/14/24 15:27 36.5 C 94 H 20 104/56 L 91 Nasal Cannula 08/14/24 13:05 92 H 08/14/24 11:12 37.1 C 84 22 102/69 92 Nasal Cannula 08/14/24 07:27 36.5 C 81 22 112/72 94 Nasal Cannula 08/14/24 07:26 Nasal Cannula 08/14/24 05:46 90 O2 Flow Rate 08/14/24 16:19 2 08/14/24 15:27 2 08/14/24 13:05 08/14/24 11:12 2 08/14/24 07:27 2 08/14/24 07:26 2 08/14/24 05:46 Laboratory Results Abnormal Lab Results 08/14/24 08/14/24 08/14/24 08:55 09:13 09:42 WBC 11.36 H RBC 3.71 L Hgb 10.6 L Hct 33.3 L MCV 89.8 MCH 28.6 MCHC 31.8 L RDW Std Deviation 48.3 H RDW Coeff of Jerry 14.8 H Plt Count 347 MPV 10.6 Sodium 136 Potassium 4.8 Chloride 105 Carbon Dioxide 23 Anion Gap 8 BUN 20 Creatinine 0.99 Est Cr Clr Drug Dosing 77.1 eGFR 77.49 BUN/Creatinine Ratio 20.2 H Glucose 114 H Calcium 8.6 Total Bilirubin 0.6 AST 9 L ALT 9 Alkaline Phosphatase 53 Troponin I High Sens Total Protein 6.6 Albumin 3.3 L Globulin 3.3 Albumin/Globulin Ratio 1.0 Nasal Screen MRSA (PCR) Positive A 08/14/24 09:44 WBC RBC Hgb Hct MCV MCH MCHC RDW Std Deviation RDW Coeff of Jerry Plt Count MPV Sodium Potassium Chloride Carbon Dioxide Anion Gap BUN Creatinine Est Cr Clr Drug Dosing eGFR BUN/Creatinine Ratio Glucose Calcium Total Bilirubin AST ALT Alkaline Phosphatase Troponin I High Sens 11.3 Total Protein Albumin Globulin Albumin/Globulin Ratio Nasal Screen MRSA (PCR) Medications Administered Current Inpatient Medications Acetaminophen (Acetaminophen 325 Mg Tab) 650 mg PO Q6H PRN PRN Reason: Pain/Fever Stop: 09/11/24 21:16 Al Hydrox/Mg Hydrox/Simethicone (Aluminum/Magnesium/Simeth (Maalox Max) 30 Ml Udc) 15 ml PO DAILY PRN PRN Reason: Heartburn Stop: 09/11/24 21:30 Albuterol (Albuterol Hfa 8 Gm Inhaler) 2 puffs INH Q6H PRN PRN Reason: Shortness Of Breath Or Wheezing Stop: 09/11/24 21:16 Apixaban (Apixaban 5 Mg Tablet) 5 mg PO BID [facility] Stop: 09/11/24 21:16 Last Admin: 08/14/24 09:13 Dose: 5 mg Aspirin (Aspirin 81 Mg Ectab) 81 mg PO QAM [facility] Stop: 09/12/24 08:59 Last Admin: 08/14/24 09:13 Dose: 81 mg Bupropion HCl (Bupropion Hcl 100 Mg Tablet) 100 mg PO BID@0900,1400 [facility] Stop: 09/12/24 08:59 Last Admin: 08/14/24 12:59 Dose: 100 mg Carvedilol (Carvedilol 3.125 Mg Tab) 3.125 mg PO BIDM [facility] Stop: 09/12/24 16:59 Last Admin: 08/14/24 16:19 Dose: 3.125 mg Cetirizine HCl (Cetirizine Hcl 10 Mg Tablet) 10 mg PO QDB [facility] Stop: 09/12/24 07:29 Last Admin: 08/14/24 07:28 Dose: 10 mg Docusate Sodium (Docusate Sodium 100 Mg Cap) 100 mg PO BID [facility] Stop: 09/11/24 21:16 Last Admin: 08/14/24 09:11 Dose: 100 mg Enoxaparin Sodium (Enoxaparin 80 Mg/0.8 Ml Syr) 160 mg SQ DAILY@2100 [facility] Stop: 09/13/24 20:59 Epinephrine HCl (Epinephrine Inj 1 Mg/Ml Amp) 0.3 mg IM ONE PRN PRN Reason: SEVERE allergic rxn Finasteride (Finasteride 5 Mg Tab) 5 mg PO QAM [facility] Stop: 09/12/24 08:59 Last Admin: 08/14/24 09:12 Dose: 5 mg Guaifenesin (Guaifenesin 600 Mg Tabcr) 600 mg PO Q12 [facility] Stop: 09/12/24 20:59 Last Admin: 08/14/24 09:14 Dose: 600 mg Meropenem 500 mg/ Syringe 10 mls @ 2 mls/min IV Q6H [facility]; Protocol Stop: 08/18/24 01:29 Last Admin: 08/14/24 12:56 Dose: 2 mls/min Metoclopramide HCl (Metoclopramide Hcl 5 Mg Tablet) 5 mg PO BID [facility] Stop: 09/11/24 21:16 Last Admin: 08/14/24 09:13 Dose: 5 mg Nitroglycerin (Nitroglycerin Sl 0.4 Mg/Tab Tab) 0.4 mg SL Q5M PRN PRN Reason: Chest Pain Stop: 09/11/24 21:16 Pramipexole Er 0.375 Mg Tab--Non- Formulary Patient's Own Med 1 each PO DAILY [facility] Stop: 09/13/24 12:44 Last Admin: 08/14/24 12:59 Dose: 1 tab Oxycodone HCl (Oxycodone Hcl 10 Mg Tabcr (Oxycontin)) 10 mg PO BID [facility] Stop: 08/26/24 21:16 Last Admin: 08/14/24 09:11 Dose: 10 mg Pantoprazole Sodium (Pantoprazole 40 Mg Tab) 40 mg PO BID [facility] Stop: 09/11/24 21:16 Last Admin: 08/14/24 09:13 Dose: 40 mg Potassium Chloride (Potassium Chloride Crtab 20 Meq Tabcr) 20 meq PO BID [facility] Stop: 09/11/24 21:16 Last Admin: 08/14/24 09:11 Dose: 20 meq Sodium Chloride (Sodium Chlor 7% 4 Ml Neb) 4 ml NEB BIDR [facility] Stop: 08/18/24 18:59 PG Care Time/CCT Total # of Minutes Spent Total Time Spent with Patient: Total time spent is greater than 50% in coordination of care (as documented) at patient's floor/unit and/or counseling patient: Coding Level of Care Code 82547 SUB INP/OBS CARE 2/35MIN Diagnoses Acute hypoxemic respiratory failure J96.01 Pneumonia J18.9 Complicated urinary tract infection N39.0
[2024-08-14] MEDS ORDERED: VANCOMYCIN CONSULT ACTIVE PRN (18:07)
--- NOTE | 2024-08-14 18:10 | Communication Note ---
Date of Service: August 14, 2024 his nasal MRSA is positive started on vancomycin, check for trough level
[2024-08-14] MEDS: VANCOMYCIN HCL 2,250 MG in SODIUM CHLORIDE 0.9% 500 ML IV ONE (18:29)
[2024-08-14] MEDS: SODIUM CHLOR 7% 4 ML NEB NEB SCH (19:03)
[2024-08-14] MEDS: ENOXAPARIN 80 MG/0.8 ML SYR SQ SCH (20:04)
[2024-08-14] MEDS: POLYETHYLENE (MIRALAX) 17 GM PACK PO SCH (20:06)
[2024-08-14] MEDS: ALBUT/IPRATROP 3MG/0.5MG NEB 3 ML VIAL NEB PRN (20:47)
[2024-08-15] MEDS: VANCOMYCIN HCL 1,000 MG/270 ML BAG IV SCH (05:14)
[2024-08-15 07:02] LABS: Hemoglobin 9.1 g/dl (14.0-18.0); Mean Corpuscular Hemoglobin 28.3 pg (25.0-34.0); Mean Corpuscular Hgb Conc 32.5 g/dL (32.0-36.0); Mean Corpuscular Volume 87.2 fL (80.0-100.0); Mean Platelet Volume 10.5 fL (9.4-12.4); Platelet Count 300 K/uL (130-400); RDW Coefficient of Variation 14.5 % (11.5-14.5); RDW Standard Deviation 46.7 fL (36.4-46.3); Red Blood Count 3.21 M/uL (4.70-6.10); White Blood Count 9.29 K/ul (4.8-10.8)
[2024-08-15 07:27] LABS: Albumin Level 2.9 gm/dl (3.4-5.0); BUN Creatinine Ratio 25.3 (10-20); Bilirubin,Total 0.4 mg/dl (0.2-1.0); Calcium 8.2 mg/dl (8.6-10.3); Creatinine Clr Calc Pharmacy 83.6 ml/min; Globulin 2.8 gm/dl (2.5-4.0); Potassium 4.5 mmol/L (3.5-5.1); Total Protein 5.7 gm/dl (6.0-8.3)
[2024-08-15 07:39] LABS: Troponin I High Sensitivity 17.7 pg/ml (0-20)
[2024-08-15] MEDS: SUCRALFATE 1 GM/10 ML UDC PO SCH (08:23)
--- NOTE | 2024-08-15 10:39 | Pharmacy Report ---
Pharmacy PK ABX Note - Date of Service August 15, 2024 - Assessment and Plan Assessment 79 year old M who presented to ED from [facility] on 08/12/24 due to shakiness and abnormal vital signs. He is now receiving meropenem and vancomycin for treatment of pneumonia and complicated UTI. Pertinent microbiologic data includes: Positive MRSA Nasal Swab, urine culture growing ESBL E.coli, sputum culture shows light normal adama, and blood cultures show no growth at 48 hours. Vancomycin initiated on 08/14 due to positive MRSA nasal swab and worsening condition. Day # 2 of antimicrobial therapy. Plan Vancomycin * Loading dose: 2250 mg IV x 1 * Maintenance dose: 1000 mg IV every 12 hours * Regimen is predicted to achieve target AUC/MOHAN of 400-600 mg/L.hr * Trough level ordered for: 08/16/24 Meropenem * 500 mg IV q6h - appropriately dosed for indication/renal function Pharmacy will continue to follow and will adjust dose/frequency as necessary. Thank you. Pharmacy has transitioned to AUC monitoring for vancomycin. AUC/MOHAN is the preferred PK/PD target and is associated with decreased risk of nephrotoxicity compared to traditional trough targets.
[2024-08-15] MEDS: BUMETANIDE 0.5 MG in SYRINGE 0 ML IV ONE (11:11)
--- NOTE | 2024-08-15 11:52 | Hospitalist Progress Note ---
Date of Service August 15, 2024 Assessment & Plan (1) Acute hypoxemic respiratory failure: Plan: has increase oxygen requirement at 11pm at 08/14/2024 related to volume overload and PNA gentle bumex 0.5mg IV on 08/15/2024 he's need IV meropenem and vancomycin speech to r/o microaspiration (2) Pneumonia: Plan: c/w meropenem, he's likely need longer course such as 10-14 days MRSA positive, vancomycin IV, check trough level, ID evaluatoin (3) Complicated urinary tract infection: Plan: recurrent UTI f/u on [facility] [address] [place] [address] / Director: Malena Hutson M.D. Clinical Laboratory Report Name: ZIGGY DEUTSCH Acct: [id number] [place]: [place] 1945 [facility] [place] 08/12/24 Age: 79 Sex: M Dis Date: Loc: [address]/Bed: [facility] Spec: [id number] Collected: 08/12/24 Received: 08/12/[address]: Bailey Lomas MD Source: Urine,Clean Catch OV Order: Ordered: Urine Culture Procedure Result Verified Site Urine Culture Final 08/14/24 Organism 1 Escherichia coli ESBL [place] Count >100,000 CFU/ml Sens Sensitivities to Follow ESBL E col RX M.I.C. --- --------- Amikacin S <=16 Amox/Clav I 16/8 Ampicillin R >16 Amp/Sul I 16/8 Cefazolin R >16 Cefepime R >16 Cefotaxime R >32 Cefoxitin S <=8 Ceftriaxone R >32 Cefuroxime R >16 Ciprofloxacin R >2 Ertapenem S <=0.5 Gentamicin R >8 Levofloxacin R >4 Meropenem S <=1 Nitrofurantoin I 64 Tobramycin R >8 Trimeth/Sulfa S <=0.5/9.5 Pip/Tazo S <=8 S = SENSITIVE I = INTERMEDIATE R = RESISTANT Name: ZIGGY DEUTSCH : 1945 PAGE 1 Printed: 08/15/24 [id number] END OF REPORT Mariam Crane is a 79-year-old gentleman with history of CAD, COPD, sick sinus s/p pacemaker, sleep apnea on BiPAP, A-fib, CHF, Parkinson He was just discharged from the hospital with acute respiratory failure CHF exacerbation catheter associated UTI and pneumonia he was seen by [facility] on 08/11 on 08/12, he's was having shakiness, unsteady, found to hypoxic in the 40s, and tachycardia he's was found to has recurrent PNA, UTI. 1. acute hypoxic respiratory failure (5 liter, baseline room air day, 1-2 liter nocturnal) 2. recurrent UTI 3. recurrent PNA, volume overload 4. hx of CHF, CAD, sick sinus s/p pacemaker 5. sleep apnea on BiPAP 6. A-fib 7. Parkinson disease 8 neuropathy 9. cellulitis 10. hx of DVT overall plan hypoxic overnight, s/p IV bumex 0.5mg, c/w meropenem and vancomycin duoneb and low dose solumedrol 40mg q12 hours f/u on CTA PE, c/w with lovenox PE dose (home med eliquis 5 BID) repeat sputum culture (induced) c/w meropenem and vancomycin. appreciate ID input about the course of antibiotics 1. chest pain episode duplex US found chronic DVT, f/u on CTA switched from home med of elilquis to lovenox PE dose added carafate given drop in H/H 2. acute on chronic respiratory failure pneumonia s/p bumex 0.5mg on 08/15 for volume overload, need 5 liter overnight meropenem, vancomycin mucinex. 3 recurrent UTI-he's on meropenem 4 left leg cellulitis. he's on meropenem 5. CHF with reduced EF CHF exacerbation with hypotension EF of 25-30%, global hypokinesis coreg, entresto; statin may need ischemia evaluation 6. A-fib, he's on eliquis. 7. Parkinson disease -pramipexole 0.375mg daily , has significant upper extremity immobility 8. left heel wound--wound care evaluation 9. GERD- PPI 10. chronic pain syndrome Admission and Anticipated Discharge Date Admission Date: August 12, 2024 Subjective increased oxygen to 5 liter overnight being treated for pneumonia, hypotension, volume overload His MRSA is positive, he's currently on meropenem and van chest pain episode yesterday, await CTA to rule out PE, duplex shown chronic DVT We empirically switched him from Eliquis to Lovenox, trend his H/H Review of Systems Review of Systems: Constitutional: no fever; no chill; + for weakness Cardiovascular: chest pain improving; no palpitation; + for orthopnea lung: + for coughing spell , congestion, shortness of breath Gastrointestinal: No Nausea, No Vomiting, No Diarrhea, No Constipation, no melena Genitourinary: recurrent UTI; Neuro: no new tremor; no weakness Heme/Lymph: No Bruising, No Bleeding, No Transfusions History, No Lymphadenopathy Endocrine: No Polyuria, No Polydipsia, No Temperature Intolerance Physical Exam Physical Exam: VITALS: Reviewed. WEIGHT/BMI reviewed. GEN: chronically ill appearing; non-toxic ; on 5 liter HEENT:AT/NC; non-icterus CV: RRR, no m/r/g. LUNGS: CTAB, no w/r/c. ABD: Soft, NT/ND, NBS, no masses or organomegaly. : no ray MSK: No deformities, Normal gait. EXT: No clubbing, cyanosis, or edema. NEURO: AAOx3; limited upper extremity mobility; following command; no slurred speech Results & Data Results & Data Vital Signs (Past 12 Hours) Vital Signs Temp Pulse Pulse Resp BP Pulse Ox O2 Del Method 08/15/24 11:18 36.6 C 90 18 101/69 98 Nasal Cannula 08/15/24 07:35 36.3 C L 92 H 18 99/65 L 98 Nasal Cannula 08/15/24 07:32 Nasal Cannula 08/15/24 07:25 89 18 97 Nasal Cannula 08/15/24 05:41 90 08/15/24 04:00 36.5 C 87 18 105/60 96 Nasal Cannula 08/15/24 00:00 36.8 C 90 20 103/68 97 CPAP 08/14/24 23:44 Nasal Cannula 08/14/24 23:43 99 H O2 Flow Rate 08/15/24 11:18 3 08/15/24 07:35 4 08/15/24 07:32 4 08/15/24 07:25 4 08/15/24 05:41 08/15/24 04:00 5 08/15/24 00:00 08/14/24 23:44 5 08/14/24 23:43 Laboratory Results Laboratory Results - last 72 hr 08/12/24 08/12/24 08/12/24 11:40 11:40 11:40 WBC RBC Hgb Hct MCV MCH MCHC RDW Std Deviation RDW Coeff of Jerry Plt Count MPV Immature Gran % (Auto) Neut % (Auto) Lymph % (Auto) [place] % (Auto) Eos % (Auto) Baso % (Auto) Neut # (Auto) Lymph # (Auto) Dod[place]idge # (Auto) Eos # (Auto) Baso # (Auto) Immature Gran # (Auto) PT INR Sodium Potassium Chloride Carbon Dioxide Anion Gap BUN Creatinine Est Cr Clr Drug Dosing eGFR BUN/Creatinine Ratio Glucose Lactate Calcium Magnesium Total Bilirubin AST ALT Alkaline Phosphatase Troponin I High Sens B-Natriuretic Peptide Total Protein Albumin Globulin Albumin/Globulin Ratio Procalcitonin Urine Color Urine Appearance Urine pH Ur Specific Gabbs Urine Protein Urine Glucose (UA) Urine Ketones Urine Blood Urine Nitrite Urine Bilirubin Urine Urobilinogen Ur Leukocyte Esterase Urine WBC (Auto) Urine RBC (Auto) U Hyaline Cast (Auto) U Epithel Cells (Auto) Urine Bacteria (Auto) Nasal Screen MRSA (PCR) Adenovirus (PCR) Not Detected B. pertussis DNA (PCR) Not Detected B.parapertussis DNA PCR Not Detected C. pneumoniae DNA (PCR) Not Detected Coronavirus OC43 (PCR) Not Detected Coronavirus HKU1 (PCR) Not Detected Coronavirus 229E (PCR) Not Detected SARS-CoV-2 (PCR) NEGATIVE Not Detected Coronavirus NL63 (PCR) Not Detected Human Metapneumovir PCR Not Detected Influenza Type A (PCR) Negative Not Detected Influenza Type B (PCR) Negative M. pneumoniae (PCR) Parainfluenza 1 (PCR) Parainfluenza 2 (PCR) Parainfluenza 3 (PCR) Parainfluenza 4 (PCR) RSV (RT-PCR) RSV (PCR) Entero/Rhino (PCR) 08/12/24 08/12/24 08/12/24 11:40 12:03 12:17 WBC 18.73 H RBC 4.07 L Hgb 11.4 L Hct 36.2 L MCV 88.9 MCH 28.0 MCHC 31.5 L RDW Std Deviation 47.6 H RDW Coeff of Jerry 14.7 H Plt Count 420 H MPV 10.5 Immature Gran % (Auto) 0.4 Neut % (Auto) 80.3 Lymph % (Auto) 10.5 Dod[place]idge % (Auto) 4.3 Eos % (Auto) 4.0 Baso % (Auto) 0.5 Neut # (Auto) 15.05 H Lymph # (Auto) 1.96 Dod[place]idge # (Auto) 0.81 H Eos # (Auto) 0.74 H Baso # (Auto) 0.09 Immature Gran # (Auto) 0.08 PT 12.4 H INR 1.2 H Sodium 137 Potassium 4.1 Chloride 102 Carbon Dioxide 28 Anion Gap 7 BUN 21 Creatinine 1.11 Est Cr Clr Drug Dosing 69.3 eGFR 67.55 BUN/Creatinine Ratio 18.9 Glucose 119 H Lactate 2.2 H* Calcium 9.2 Magnesium 1.8 Total Bilirubin 0.3 AST 11 L ALT 15 Alkaline Phosphatase 63 Troponin I High Sens 9.4 B-Natriuretic Peptide 833 H Total Protein 7.6 Albumin 4.0 Globulin 3.6 Albumin/Globulin Ratio 1.1 Procalcitonin < 0.02 Urine Color Yellow Urine Appearance Clear Urine pH 5.0 Ur Specific Gabbs 1.008 Urine Protein Negative Urine Glucose (UA) Negative Urine Ketones Negative Urine Blood Negative Urine Nitrite Positive A Urine Bilirubin Negative Urine Urobilinogen Negative Ur Leukocyte Esterase 2+ H Urine WBC (Auto) 21-50 H Urine RBC (Auto) 0-2 U Hyaline Cast (Auto) 3-5 H U Epithel Cells (Auto) 0-2 Urine Bacteria (Auto) 4+ H Nasal Screen MRSA (PCR) Adenovirus (PCR) B. pertussis DNA (PCR) B.parapertussis DNA PCR C. pneumoniae DNA (PCR) Coronavirus OC43 (PCR) Coronavirus HKU1 (PCR) Coronavirus 229E (PCR) SARS-CoV-2 (PCR) Coronavirus NL63 (PCR) Human Metapneumovir PCR Influenza Type A (PCR) Influenza Type B (PCR) Not Detected M. pneumoniae (PCR) Not Detected Parainfluenza 1 (PCR) Not Detected Parainfluenza 2 (PCR) Not Detected Parainfluenza 3 (PCR) Not Detected Parainfluenza 4 (PCR) Not Detected RSV (RT-PCR) Negative RSV (PCR) Not Detected Entero/Rhino (PCR) Not Detected 08/12/24 08/12/24 08/12/24 13:09 13:45 15:38 WBC RBC Hgb Hct MCV MCH MCHC RDW Std Deviation RDW Coeff of Jerry Plt Count MPV Immature Gran % (Auto) Neut % (Auto) Lymph % (Auto) Dod[place] % (Auto) Eos % (Auto) Baso % (Auto) Neut # (Auto) Lymph # (Auto) Dod[place]idge # (Auto) Eos # (Auto) Baso # (Auto) Immature Gran # (Auto) PT INR Sodium Potassium Chloride Carbon Dioxide Anion Gap BUN Creatinine Est Cr Clr Drug Dosing eGFR BUN/Creatinine Ratio Glucose Lactate 4.5 H* 2.5 H* 2.8 H* Calcium Magnesium Total Bilirubin AST ALT Alkaline Phosphatase Troponin I High Sens B-Natriuretic Peptide Total Protein Albumin Globulin Albumin/Globulin Ratio Procalcitonin Urine Color Urine Appearance Urine pH Ur Specific Gabbs Urine Protein Urine Glucose (UA) Urine Ketones Urine Blood Urine Nitrite Urine Bilirubin Urine Urobilinogen Ur Leukocyte Esterase Urine WBC (Auto) Urine RBC (Auto) U Hyaline Cast (Auto) U Epithel Cells (Auto) Urine Bacteria (Auto) Nasal Screen MRSA (PCR) Adenovirus (PCR) B. pertussis DNA (PCR) B.parapertussis DNA PCR C. pneumoniae DNA (PCR) Coronavirus OC43 (PCR) Coronavirus HKU1 (PCR) Coronavirus 229E (PCR) SARS-CoV-2 (PCR) Coronavirus NL63 (PCR) Human Metapneumovir PCR Influenza Type A (PCR) Influenza Type B (PCR) M. pneumoniae (PCR) Parainfluenza 1 (PCR) Parainfluenza 2 (PCR) Parainfluenza 3 (PCR) Parainfluenza 4 (PCR) RSV (RT-PCR) RSV (PCR) Entero/Rhino (PCR) 08/13/24 08/13/24 08/14/24 06:19 08:19 08:55 WBC 13.62 H RBC 3.98 L Hgb 11.0 L Hct 34.9 L MCV 87.7 MCH 27.6 MCHC 31.5 L RDW Std Deviation 47.7 H RDW Coeff of Jerry 14.8 H Plt Count 339 MPV 10.3 Immature Gran % (Auto) 0.5 Neut % (Auto) 71.0 Lymph % (Auto) 17.5 Doddridge % (Auto) 5.9 Eos % (Auto) 4.7 Baso % (Auto) 0.4 Neut # (Auto) 9.66 H Lymph # (Auto) 2.39 Doddridge # (Auto) 0.81 H Eos # (Auto) 0.64 H Baso # (Auto) 0.05 Immature Gran # (Auto) 0.07 PT INR Sodium 139 136 Potassium 4.2 4.8 Chloride 105 105 Carbon Dioxide 25 23 Anion Gap 9 8 BUN 20 20 Creatinine 1.04 0.99 Est Cr Clr Drug Dosing 72.9 77.1 eGFR 73.04 77.49 BUN/Creatinine Ratio 19.2 20.2 H Glucose 111 H 114 H Lactate 1.9 Calcium 8.9 8.6 Magnesium Total Bilirubin 0.5 0.6 AST 11 L 9 L ALT 11 9 Alkaline Phosphatase 60 53 Troponin I High Sens B-Natriuretic Peptide Total Protein 6.9 6.6 Albumin 3.6 3.3 L Globulin 3.3 3.3 Albumin/Globulin Ratio 1.1 1.0 Procalcitonin Urine Color Urine Appearance Urine pH Ur Specific Gabbs Urine Protein Urine Glucose (UA) Urine Ketones Urine Blood Urine Nitrite Urine Bilirubin Urine Urobilinogen Ur Leukocyte Esterase Urine WBC (Auto) Urine RBC (Auto) U Hyaline Cast (Auto) U Epithel Cells (Auto) Urine Bacteria (Auto) Nasal Screen MRSA (PCR) Adenovirus (PCR) B. pertussis DNA (PCR) B.parapertussis DNA PCR C. pneumoniae DNA (PCR) Coronavirus OC43 (PCR) Coronavirus HKU1 (PCR) Coronavirus 229E (PCR) SARS-CoV-2 (PCR) Coronavirus NL63 (PCR) Human Metapneumovir PCR Influenza Type A (PCR) Influenza Type B (PCR) M. pneumoniae (PCR) Parainfluenza 1 (PCR) Parainfluenza 2 (PCR) Parainfluenza 3 (PCR) Parainfluenza 4 (PCR) RSV (RT-PCR) RSV (PCR) Entero/Rhino (PCR) 08/14/24 08/14/24 08/14/24 09:13 09:42 09:44 WBC 11.36 H RBC 3.71 L Hgb 10.6 L Hct 33.3 L MCV 89.8 MCH 28.6 MCHC 31.8 L RDW Std Deviation 48.3 H RDW Coeff of Jerry 14.8 H Plt Count 347 MPV 10.6 Immature Gran % (Auto) Neut % (Auto) Lymph % (Auto) [place] % (Auto) Eos % (Auto) Baso % (Auto) Neut # (Auto) Lymph # (Auto) [place] # (Auto) Eos # (Auto) Baso # (Auto) Immature Gran # (Auto) PT INR Sodium Potassium Chloride Carbon Dioxide Anion Gap BUN Creatinine Est Cr Clr Drug Dosing eGFR BUN/Creatinine Ratio Glucose Lactate Calcium Magnesium Total Bilirubin AST ALT Alkaline Phosphatase Troponin I High Sens 11.3 B-Natriuretic Peptide Total Protein Albumin Globulin Albumin/Globulin Ratio Procalcitonin Urine Color Urine Appearance Urine pH Ur Specific Gabbs Urine Protein Urine Glucose (UA) Urine Ketones Urine Blood Urine Nitrite Urine Bilirubin Urine Urobilinogen Ur Leukocyte Esterase Urine WBC (Auto) Urine RBC (Auto) U Hyaline Cast (Auto) U Epithel Cells (Auto) Urine Bacteria (Auto) Nasal Screen MRSA (PCR) Positive A Adenovirus (PCR) B. pertussis DNA (PCR) B.parapertussis DNA PCR C. pneumoniae DNA (PCR) Coronavirus OC43 (PCR) Coronavirus HKU1 (PCR) Coronavirus 229E (PCR) SARS-CoV-2 (PCR) Coronavirus NL63 (PCR) Human Metapneumovir PCR Influenza Type A (PCR) Influenza Type B (PCR) M. pneumoniae (PCR) Parainfluenza 1 (PCR) Parainfluenza 2 (PCR) Parainfluenza 3 (PCR) Parainfluenza 4 (PCR) RSV (RT-PCR) RSV (PCR) Entero/Rhino (PCR) 08/15/24 08/15/24 06:11 08:00 WBC 9.29 RBC 3.21 L Hgb 9.1 L Hct 28.0 L MCV 87.2 MCH 28.3 MCHC 32.5 RDW Std Deviation 46.7 H RDW Coeff of Jerry 14.5 Plt Count 300 MPV 10.5 Immature Gran % (Auto) Neut % (Auto) Lymph % (Auto) Dod[place] % (Auto) Eos % (Auto) Baso % (Auto) Neut # (Auto) Lymph # (Auto) [place] # (Auto) Eos # (Auto) Baso # (Auto) Immature Gran # (Auto) PT INR Sodium 135 L Potassium 4.5 Chloride 106 Carbon Dioxide 25 Anion Gap 4 BUN 23 Creatinine 0.91 Est Cr Clr Drug Dosing 83.6 eGFR 85.73 BUN/Creatinine Ratio 25.3 H Glucose 102 H Lactate 0.7 Calcium 8.2 L Magnesium Total Bilirubin 0.4 AST 12 L ALT 11 Alkaline Phosphatase 48 Troponin I High Sens 17.7 D B-Natriuretic Peptide Total Protein 5.7 L Albumin 2.9 L Globulin 2.8 Albumin/Globulin Ratio 1.0 Procalcitonin Urine Color Urine Appearance Urine pH Ur Specific Gabbs Urine Protein Urine Glucose (UA) Urine Ketones Urine Blood Urine Nitrite Urine Bilirubin Urine Urobilinogen Ur Leukocyte Esterase Urine WBC (Auto) Urine RBC (Auto) U Hyaline Cast (Auto) U Epithel Cells (Auto) Urine Bacteria (Auto) Nasal Screen MRSA (PCR) Adenovirus (PCR) B. pertussis DNA (PCR) B.parapertussis DNA PCR C. pneumoniae DNA (PCR) Coronavirus OC43 (PCR) Coronavirus HKU1 (PCR) Coronavirus 229E (PCR) SARS-CoV-2 (PCR) Coronavirus NL63 (PCR) Human Metapneumovir PCR Influenza Type A (PCR) Influenza Type B (PCR) M. pneumoniae (PCR) Parainfluenza 1 (PCR) Parainfluenza 2 (PCR) Parainfluenza 3 (PCR) Parainfluenza 4 (PCR) RSV (RT-PCR) RSV (PCR) Entero/Rhino (PCR) Diagnostic Findings Venous Doppler Study 08/14/24 22:52 BILATERAL LOWER EXTREMITY VENOUS DOPPLER CLINICAL HISTORY: leg cellulitis, r/o DVT COMPARISON STUDY: Left lower extremity venous Doppler ultrasound July 30, 2022. Right lower extremity venous Doppler ultrasound June 12, 2015. TECHNIQUE: Sonography of the deep venous system of the bilateral lower extremities was performed. Compression and augmentation were evaluated. FINDINGS: The bilateral common femoral, superficial femoral and popliteal veins were compressible. Linear echogenic material within one of 2 paired right peroneal veins is present. This favors chronic thrombus. No additional sites of venous thrombus within the lower extremities are present. IMPRESSION: 1. No evidence of acute deep venous thrombus within the bilateral lower extremities. 2. Linear echogenic material within one of 2 paired right peroneal veins. This favors a small amount of chronic deep venous thrombus. ACT 112: Negative or not required by law. Electronically signed by: Adam Benson M.D. 08/14/2024 9:40 AM PG Care Time/CCT Total # of Minutes Spent Total Time Spent with Patient: Total time spent is greater than 50% in coordination of care (as documented) at patient's floor/unit and/or counseling patient: Coding Level of Care Code 82523 SUB INP/OBS CARE 2/35MIN Diagnoses Acute hypoxemic respiratory failure J96.01 Pneumonia J18.9 Complicated urinary tract infection N39.0 Time Spent (min) 34
[2024-08-15] MEDS: ALBUT/IPRATROP 3MG/0.5MG NEB 3 ML VIAL NEB SCH (13:09)
[2024-08-16] MEDS: VANCOMYCIN LEVEL ONE (06:28)
[2024-08-16 06:40] LABS: Hemoglobin 9.6 g/dl (14.0-18.0); Mean Corpuscular Hemoglobin 27.9 pg (25.0-34.0); Mean Corpuscular Volume 87.2 fL (80.0-100.0); Mean Platelet Volume 10.4 fL (9.4-12.4); Platelet Count 325 K/uL (130-400); RDW Coefficient of Variation 14.5 % (11.5-14.5); RDW Standard Deviation 46.5 fL (36.4-46.3); Red Blood Count 3.44 M/uL (4.70-6.10); White Blood Count 9.47 K/ul (4.8-10.8)
[2024-08-16 07:11] LABS: Albumin Level 3.1 gm/dl (3.4-5.0); Bilirubin,Total 0.4 mg/dl (0.2-1.0); Globulin 3.1 gm/dl (2.5-4.0); Total Protein 6.2 gm/dl (6.0-8.3)
[2024-08-16] MEDS: THIAMINE HCL 100 MG in SYRINGE 9 ML IV SCH (08:17)
[2024-08-16 10:21] LABS: BUN Creatinine Ratio 23.9 (10-20); Calcium 8.4 mg/dl (8.6-10.3); Potassium 4.6 mmol/L (3.5-5.1)
--- NOTE | 2024-08-16 11:56 | Pharmacy Report ---
Pharmacy PK ABX Note - Date of Service August 16, 2024 - Assessment and Plan Assessment 08/16: Patient with increased O2 requirements overnight. Prelim blood cultures from 08/12 are still NGTD x 2. To continue on vancomycin and meropenem for pneumonia and ESBL E. Coli UTI. Vanco level drawn this morning was 13.9mcg/mL which extrapolates to an MOHAN/AUC in the goal range. 08/15: 79 year old M who presented to ED from [facility] on 08/12/24 due to shakiness and abnormal vital signs. He is now receiving meropenem and vancomycin for treatment of pneumonia and complicated UTI. Pertinent microbiologic data includes: Positive MRSA Nasal Swab, urine culture growing ESBL E.coli, sputum culture shows light normal adama, and blood cultures show no growth at 48 hours. Vancomycin initiated on 08/14 due to positive MRSA nasal swab and worsening condition. Day # 3 of antimicrobial therapy. Plan Vancomycin * Vancomycin level drawn today was 13.9mcg/mL which extrapolates to an MOHAN/AUC within the goal range of 400-600mg/L.hr * To continue maintenance dose: 1000 mg IV every 12 hours * Another vancomycin level will be ordered in the next few days or as clinically needed. Meropenem * 500 mg IV q6h - appropriately dosed for indication/renal function Pharmacy will continue to follow and will adjust dose/frequency as necessary. Thank you. Pharmacy has transitioned to AUC monitoring for vancomycin. AUC/MOHAN is the preferred PK/PD target and is associated with decreased risk of nephrotoxicity compared to traditional trough targets.
[2024-08-16] MEDS: OPTIRAY 320 125ml IV ONE (13:59)
--- NOTE | 2024-08-16 14:11 | CT Scan Report ---
CT angio chest PE protocol CT DOSE: 1764.2 mGy.cm HISTORY: chest pain, r/o PE versus dissection. TECHNIQUE: Multiple CTA images of the chest were obtained after the intravenous administration of 120 ml Optiray. Coronal and sagittal MIPS were obtained from the axial data set and were submitted for review. All measurements were obtained according to NASCET criteria. A dose lowering technique was u tilized adhering to the principles of ALARA. COMPARISON STUDY: 06/16/2024 FINDINGS: Stable moderate hiatal hernia. There are bilateral pleural effusions, moderate on the right and small on the left with adjacent consolidation of the majority of the lower lobes bilaterally, at electasis versus pneumonia. There is moderate emphysema. No pneumothorax. There is moderate cardiomeg paulino. No pericardial effusion. No pulmonary embolism. No thoracic aortic dissection or aneurysm. No en larged adenopathy. No acute osseous findings. IMPRESSION: 1. No pulmonary embolism. 2. Bilateral pleural effusions with adjacent consolidation of the majority of the lower lobes, atelec tasis versus pneumonia. 3. Otherwise as described. ACT 112: Negative or not required by law. The above report was generated using voice recognition software. It may contain grammatical, syntax o r spelling errors. Electronically signed by: Rodríguez Roldan M.D. 08/16/2024 2:08 PM
[2024-08-16] MEDS: BUMETANIDE 2 MG in SYRINGE 0 ML IV ONE (17:48)
--- NOTE | 2024-08-16 18:29 | Hospitalist Progress Note ---
Date of Service August 16, 2024 Assessment & Plan (1) Acute on chronic systolic heart failure: (2) Acute hypoxemic respiratory failure: (3) Pneumonia: (4) Complicated urinary tract infection: (5) CAD (coronary artery disease): (6) Sleep apnea: (7) Presence of combination internal cardiac defibrillator (ICD) and pacemaker: (8) Paroxysmal atrial fibrillation: (9) History of urinary self-catheterization: (10) History of venous thromboembolism: (11) Parkinsonism: Plan 79yo male with CAD, COPD, sick sinus syndrome s/p pacemaker, ROSE on BiPAP, PAF, chronic systolic CHF 2nd ischemic cardiomyopathy, parkinsonism, and recurrent hospitalizations in 2024 (COVID-19, norovirus, pneumonia, UTI, CHF exacerbations, etc). #acute on chronic respiratory failure - * b/l basilar pneumonia - possible * suspected acute/chronic systolic CHF with resulting pulm edema * he appears volume overloaded on exam today * bumex 2mg IV x 1 now * may benefit from aldactone if BP can tolerate #possible b/l lower lobe pneumonia - * remains on Meropenem - day #4 of such * remains on IV Vancomycin due to MRSA+ status - day #2 of such * plan 7 days of each #recurrent catheter-associated ESBL Ecoli UTI - * grew this out in late June as well s/p course of carbapenem at that time * now on meropenem for the possible pneumonia as well as ESBL Ecoli * PSA just a few weeks ago was normal making prostatitis unlikely #acute on chronic systolic CHF - * dietary indiscretion, perhaps not enough standing diuretic, other factors likely all at play * can't rule out ischemia driving some of his decompensation either given recurrent episodes of chest pain * consider re-consulting Dr Negron -- need for cath to r/o ischemia ?? * most recent echo with EF of 25-30% and unchanged wall motion abnormalities * cont coreg * Entresto is on hold at this time * does follow with Donna SWAIN in [facility] #PAF - * stop lovenox since CTA chest neg for PE and dopplers of legs neg for acute DVT * resume Eliquis 5mg BID tonight * cont coreg #parkinsonism - * cont pramipexole 0.375mg daily #chronic left heel wound - * stable * cont local wound care * cont special shoes #chronic intermittent self-catheterization - * performs once every 48 hours * this is not for a bladder issue but to maintain patency of the urethra #GERD - * PPI daily #chronic pain syndrome - * cont oxycodone 10mg BID as previous #ROSE - * cont BIPAP #pacemaker/ICD status - * last interrogation was wnl with stable device function PT, OT when able updated at bedside today Admission and Anticipated Discharge Date Admission Date: August 12, 2024 Subjective patient sitting in chair during the visit was at bedside he states he had a rough night with difficulty breathing and needing to sit up he is adamant that his dry weight at home is 210-217# told him that the current weight of 103.5kg is the best weight dating back to 2023 (227#) he is disappointed with his LE edema and asks to prop the legs if possible asks that his left heel ulcer be checked disgusted that at his recent rehab stay he was offered hot dogs, sauerkraut, and other salt-rich foods appetite today is not that great he feels tired/weak compliant with his BIPAP at HS Review of Systems Review of Systems: gen - had rigors at home just prior to admission, but none since; no fevers; poor appetite cv - no chest pain but +PND, +orthopnea, +LE edema b/l pulm - dyspnea with minimal activity Physical Exam Physical Exam: gen - sitting in chair, no distress, awake, alert neck - JVD 1/2 way up neck at 90 degrees mouth - MMM heart - RRR, s1 s2 lungs - decreased BS right base about 1/3-1/2 [address] up back, minimally decreased BS left base; minimal rales b/l; no wheeze; no increased work of breathing abd - distended with body wall edema? BS+, NT ext - 2+ edema from feet to the knees; pulses b/l feet 2+ skin - heeled ulceration on L heel; no skin openings; stasis changes b/l shins but no cellulitis Results & Data Results & Data Vital Signs (Past 12 Hours) Vital Signs Temp Pulse Pulse Pulse Resp BP Pulse Ox 08/16/24 15:32 36.6 C 90 18 118/78 94 08/16/24 12:57 83 08/16/24 11:23 36.5 C 91 H 20 104/71 95 08/16/24 07:54 36.5 C 87 20 131/79 95 08/16/24 07:39 100 H 18 100 08/16/24 07:27 O2 Del Method O2 Flow Rate 08/16/24 15:32 Nasal Cannula 3 08/16/24 12:57 08/16/24 11:23 Nasal Cannula 3 08/16/24 07:54 Nasal Cannula 4 08/16/24 07:39 Nasal Cannula 5 08/16/24 07:27 Nasal Cannula 5 Laboratory Results Laboratory Results - last 24 hr 08/16/24 06:20 WBC 9.47 RBC 3.44 L Hgb 9.6 L Hct 30.0 L MCV 87.2 MCH 27.9 MCHC 32.0 RDW Std Deviation 46.5 H RDW Coeff of Jerry 14.5 Plt Count 325 MPV 10.4 Sodium 135 L Potassium 4.6 Chloride 102 Carbon Dioxide 25 Anion Gap 8 BUN 22 Creatinine 0.92 Est Cr Clr Drug Dosing 81.0 eGFR 84.62 BUN/Creatinine Ratio 23.9 H Glucose 94 Calcium 8.4 L Total Bilirubin 0.4 AST 17 ALT 16 Alkaline Phosphatase 56 Total Protein 6.2 Albumin 3.1 L Globulin 3.1 Albumin/Globulin Ratio 1.0 Vancomycin Trough 13.9 Diagnostic Findings Chest CTA 08/16/24 13:00 CT angio chest PE protocol CT DOSE: 1764.2 mGy.cm HISTORY: chest pain, r/o PE versus dissection. TECHNIQUE: Multiple CTA images of the chest were obtained after the intravenous administration of 120 ml Optiray. Coronal and sagittal MIPS were obtained from the axial data set and were submitted for review. All measurements were obtained according to NASCET criteria. A dose lowering technique was utilized adhering to the principles of ALARA. COMPARISON STUDY: 06/16/2024 FINDINGS: Stable moderate hiatal hernia. There are bilateral pleural effusions, moderate on the right and small on the left with adjacent consolidation of the majority of the lower lobes bilaterally, atelectasis versus pneumonia. There is moderate emphysema. No pneumothorax. There is moderate cardiomegaly. No pericardial effusion. No pulmonary embolism. No thoracic aortic dissection or aneurysm. No enlarged adenopathy. No acute osseous findings. IMPRESSION: 1. No pulmonary embolism. 2. Bilateral pleural effusions with adjacent consolidation of the majority of the lower lobes, atelectasis versus pneumonia. 3. Otherwise as described. ACT 112: Negative or not required by law. The above report was generated using voice recognition software. It may contain grammatical, syntax or spelling errors. Electronically signed by: Rodríguez Roldan M.D. 08/16/2024 2:08 PM PG Care Time/CCT Total # of Minutes Spent Total Time Spent with Patient: Total time spent is greater than 50% in coordination of care (as documented) at patient's floor/unit and/or counseling patient: Coding Level of Care Code 16317 SUB INP/OBS CARE 3/50MIN Diagnoses Acute on chronic systolic heart failure I50.23 Acute hypoxemic respiratory failure J96.01 Pneumonia J18.9 Complicated urinary tract infection N39.0 CAD (coronary artery disease) I25.10 Sleep apnea G47.30 Presence of combination internal cardiac defibrillator (ICD) and pacemaker Z95.810 Paroxysmal atrial fibrillation I48.0 History of urinary self-catheterization Z78.9 History of venous thromboembolism Z86.718 Parkinsonism G20.C
[2024-08-16] MEDS: ALBUT/IPRATROP 3MG/0.5MG NEB 3 ML VIAL NEB SCH (20:30)
[2024-08-17] MEDS ORDERED: Nursing to Pharmacy Communication SCH ×2 (00:30)
[2024-08-17 06:28] LABS: BUN Creatinine Ratio 21.6 (10-20); Calcium 8.6 mg/dl (8.6-10.3); Creatinine Clr Calc Pharmacy 78.6 ml/min; Magnesium 2.1 mg/dl (1.7-2.4); Potassium 4.3 mmol/L (3.5-5.1)
[2024-08-17] MEDS: BUMETANIDE 2 MG in SYRINGE 0 ML IV ONE (07:27)
[2024-08-17] MEDS: SPIRONOLACTONE 12.5 MG TAB PO SCH (08:27)
--- NOTE | 2024-08-17 20:20 | Hospitalist Progress Note ---
Date of Service August 17, 2024 Assessment & Plan (1) Acute on chronic systolic heart failure: (2) Acute hypoxemic respiratory failure: (3) Pneumonia: (4) Complicated urinary tract infection: (5) CAD (coronary artery disease): (6) Sleep apnea: (7) Presence of combination internal cardiac defibrillator (ICD) and pacemaker: (8) Paroxysmal atrial fibrillation: (9) History of urinary self-catheterization: (10) History of venous thromboembolism: (11) Parkinsonism: Plan 79yo male with CAD, COPD, sick sinus syndrome s/p pacemaker, ROSE on BiPAP, PAF, chronic systolic CHF 2nd ischemic cardiomyopathy, parkinsonism, and recurrent hospitalizations in 2024 (COVID-19, norovirus, pneumonia, UTI, CHF exacerbations, etc). #acute on chronic respiratory failure - * 2nd to possible b/l basilar pneumonia * 2nd to acute/chronic systolic CHF * cont diuresis * cont abx #possible b/l lower lobe pneumonia - * remains on Meropenem - day #6 of such; had ertapenem x 1 day --- thus 7 days in total * remains on IV Vancomycin due to MRSA+ status - day #3 of such * plan 7 days of each #recurrent catheter-associated ESBL Ecoli UTI - * grew this out in late June as well s/p course of carbapenem at that time * now on meropenem for the possible pneumonia as well as ESBL Ecoli * PSA just a few weeks ago was normal making prostatitis unlikely * day #7 of ertapenem/meropenem #acute on chronic systolic CHF - * dietary indiscretion, perhaps not enough standing diuretic, other factors likely all at play * can't rule out ischemia driving some of his decompensation either given recurrent episodes of chest pain * I spoke with Dr Negron, his raw sampler, by phone today; plan is to get Mr Louise euvolemic, then plan for Lexiscan nuc stress test towards the end of his stay * most recent echo with EF of 25-30% and unchanged wall motion abnormalities * cont coreg * Entresto is on hold at this time * does follow with Donna SWAIN in [facility] [place] [facility] * cont diuresis - 2mg bumex IV daily * add aldactone 12.5mg daily * not a candidate for Jardiance given his recurrent UTIs #PAF - * cont Eliquis 5mg BID * cont coreg #parkinsonism - * cont pramipexole 0.375mg daily #chronic left heel wound - * stable * cont local wound care * cont special shoes #chronic intermittent self-catheterization - * performs once every 48 hours * this is not for a bladder issue but to maintain patency of the urethra * s/p cath 08/16; next would be 08/18 #GERD - * PPI daily #chronic pain syndrome - * cont oxycodone 10mg BID as previous #ROSE - * cont BIPAP #pacemaker/ICD status - * last interrogation was wnl with stable device function PT, OT will need rehab updated at bedside yesterday Admission and Anticipated Discharge Date Admission Date: August 12, 2024 Subjective patient's breathing is improved today he slept in the recliner chair overnight did not have PND no episodes of chest pain eating is starting to improve denies any new complaints he did self-cath last pm per his typical schedule Review of Systems Review of Systems: gen - no fevers cv - no chest pain pulm - ongoing POWERS but no dyspnea at rest GI - large BM today Physical Exam Physical Exam: gen - sitting in chair, no distress, awake, alert - looks better today neck - JVD still 1/3 way up neck at nearly 75 degrees mouth - MMM heart - RRR, s1 s2, no murmur lungs - decreased BS right base about 1/3 way up back, minimally decreased BS left base; minimal rales L base; no wheeze; no increased work of breathing abd - distension improved; softer, BS+, NT ext - 2+ edema from feet to the knees and lower thighs; pulses b/l feet 2+ skin - stasis changes b/l shins but no cellulitis Results & Data Results & Data Vital Signs (Past 12 Hours) Vital Signs Temp Pulse Resp BP Pulse Ox O2 Del Method O2 Flow Rate 08/17/24 20:06 36.5 C 92 H 20 113/62 96 Nasal Cannula 3 08/17/24 19:33 67 19 94 Nasal Cannula 3 08/17/24 15:36 36.5 C 88 20 110/75 97 Room Air 08/17/24 10:08 Nasal Cannula 2 Laboratory Results Laboratory Results - last 24 hr 08/17/24 05:21 Sodium 137 Potassium 4.3 Chloride 101 Carbon Dioxide 29 Anion Gap 7 BUN 21 Creatinine 0.97 Est Cr Clr Drug Dosing 78.6 eGFR 79.41 BUN/Creatinine Ratio 21.6 H Glucose 94 Calcium 8.6 Magnesium 2.1 PG Care Time/CCT Total # of Minutes Spent Total Time Spent with Patient: Total time spent is greater than 50% in coordination of care (as documented) at patient's floor/unit and/or counseling patient: Coding Level of Care Code 10209 SUB INP/OBS CARE 2/35MIN Diagnoses Acute on chronic systolic heart failure I50.23 Acute hypoxemic respiratory failure J96.01 Pneumonia J18.9 Complicated urinary tract infection N39.0 CAD (coronary artery disease) I25.10 Sleep apnea G47.30 Presence of combination internal cardiac defibrillator (ICD) and pacemaker Z95.810 Paroxysmal atrial fibrillation I48.0 History of urinary self-catheterization Z78.9 History of venous thromboembolism Z86.718 Parkinsonism G20.C
[2024-08-18] MEDS: VANCOMYCIN LEVEL ONE (05:24)
[2024-08-18 05:26] LABS: BUN Creatinine Ratio 21.2 (10-20); Calcium 8.8 mg/dl (8.6-10.3); Potassium 4.5 mmol/L (3.5-5.1)
[2024-08-18] MEDS: BUMETANIDE 2 MG in SYRINGE 0 ML IV ONE (06:41)
[2024-08-18] MEDS: POTASSIUM CHLORIDE CRTAB 20 MEQ TABCR PO SCH (08:50)
[2024-08-18] MEDS: THIAMINE HCL 100 MG TAB PO SCH (10:19)
[2024-08-18] MEDS: BUMETANIDE 1 MG in SYRINGE 0 ML IV ONE (18:42)
--- NOTE | 2024-08-18 19:24 | Hospitalist Progress Note ---
Date of Service August 18, 2024 Assessment & Plan (1) Acute on chronic systolic heart failure: (2) Acute hypoxemic respiratory failure: (3) Pneumonia: (4) Complicated urinary tract infection: (5) CAD (coronary artery disease): (6) Sleep apnea: (7) Presence of combination internal cardiac defibrillator (ICD) and pacemaker: (8) Paroxysmal atrial fibrillation: (9) History of urinary self-catheterization: (10) History of venous thromboembolism: (11) Parkinsonism: Plan 79yo male with CAD, COPD, sick sinus syndrome s/p pacemaker, ROSE on BiPAP, PAF, chronic systolic CHF 2nd ischemic cardiomyopathy, parkinsonism, and recurrent hospitalizations in 2024 (COVID-19, norovirus, pneumonia, UTI, CHF exacerbations, etc). Presented with chills, cough, dyspnea, worsening LE edema. #acute on chronic respiratory failure - * 2nd to possible b/l basilar pneumonia * 2nd to acute/chronic systolic CHF * acute component improved * cont diuresis * cont abx #possible b/l lower lobe pneumonia - * s/p 7 days of IV Meropenem/ertapenem * s/p IV Vancomycin due to MRSA+ status - day #4 of such * plan 3 days of Zyvox 600mg BID then stop all abx #recurrent catheter-associated ESBL Ecoli UTI - * grew this out in late June as well s/p course of carbapenem at that time * PSA just a few weeks ago was normal making prostatitis unlikely * s/p 7 days of ertapenem/meropenem - now off abx #acute on chronic systolic CHF - * dietary indiscretion, perhaps not enough standing diuretic, other factors likely all at play * can't rule out ischemia driving some of his decompensation either given recurrent episodes of chest pain * I spoke with Dr Negron, his machinist set up, by phone 08/17; plan is to get Mr Louise euvolemic, then plan for Lexiscan nuc stress test towards the end of his stay * most recent echo with EF of 25-30% and unchanged wall motion abnormalities * cont coreg * Entresto is on hold at this time * does follow with Donna SWANI in [facility] * cont diuresis - 2mg bumex IV daily, and give additional 1mg this evening * added aldactone 12.5mg daily - perhaps titrate to 25mg daily starting tomorrow * not a candidate for Jardiance given his recurrent UTIs #PAF - * cont Eliquis 5mg BID * cont coreg #parkinsonism - * cont pramipexole 0.375mg daily #chronic left heel wound - * stable * cont local wound care * cont special shoes #chronic intermittent self-catheterization - * performs once every 48 hours * this is not for a bladder issue but to maintain patency of the urethra * s/p cath 08/16; next would be this pm #GERD - * PPI daily #chronic pain syndrome - * cont oxycodone 10mg BID as previous #ROSE - * cont BIPAP #pacemaker/ICD status - * last interrogation was wnl with stable device function PT, OT will need rehab updated by phone this evening Admission and Anticipated Discharge Date Admission Date: August 12, 2024 Subjective patient slept in recliner overnight and had no dyspnea/orthopnea/PND he feels better overall appetite much improved denies any new complaints Review of Systems Review of Systems: gen - no fevers or chills cv - no chest pain pulm - no dyspnea at rest but does have POWERS Physical Exam Physical Exam: gen - laying in recliner chair, no distress, awake, alert neck - JVD + mouth - MMM heart - RRR, s1 s2, no murmur lungs - decreased BS right base but improved airation there; minimally decreased BS left base; no wheeze; no increased work of breathing abd - soft, NT, ND, BS+ ext - <2+ edema from feet to the knees and lower thighs; pulses b/l feet 2+ skin - stasis changes b/l shins but no cellulitis neuro - contractures of b/l hands Results & Data Results & Data Vital Signs (Past 12 Hours) Vital Signs Temp Pulse Resp BP Pulse Ox O2 Del Method O2 Flow Rate 08/18/24 15:38 35.7 C L 93 H 20 121/85 96 Nasal Cannula 3 08/18/24 11:30 35.8 C L 92 H 20 125/81 95 Nasal Cannula 3 08/18/24 08:55 36.5 C 94 H 20 112/81 96 Nasal Cannula 3 08/18/24 08:30 Nasal Cannula 3 08/18/24 07:39 87 15 93 Nasal Cannula 4 Laboratory Results Laboratory Results - last 24 hr 08/18/24 04:54 Sodium 136 Potassium 4.5 Chloride 101 Carbon Dioxide 29 Anion Gap 6 BUN 21 Creatinine 0.99 Est Cr Clr Drug Dosing 77.0 eGFR 77.49 BUN/Creatinine Ratio 21.2 H Glucose 106 H Calcium 8.8 Random Vancomycin 18.3 PG Care Time/CCT Total # of Minutes Spent Total Time Spent with Patient: Total time spent is greater than 50% in coordination of care (as documented) at patient's floor/unit and/or counseling patient: Coding Level of Care Code 67749 SUB INP/OBS CARE 2/35MIN Diagnoses Acute on chronic systolic heart failure I50.23 Acute hypoxemic respiratory failure J96.01 Pneumonia J18.9 Complicated urinary tract infection N39.0 CAD (coronary artery disease) I25.10 Sleep apnea G47.30 Presence of combination internal cardiac defibrillator (ICD) and pacemaker Z95.810 Paroxysmal atrial fibrillation I48.0 History of urinary self-catheterization Z78.9 History of venous thromboembolism Z86.718 Parkinsonism G20.C
[2024-08-18] MEDS: LINEZOLID 600 MG TAB PO SCH (21:46)
[2024-08-19 06:45] LABS: BUN Creatinine Ratio 21.2 (10-20); Calcium 9.5 mg/dl (8.6-10.3); Creatinine Clr Calc Pharmacy 72.3 ml/min; Magnesium 2.2 mg/dl (1.7-2.4); Potassium 4.2 mmol/L (3.5-5.1)
[2024-08-19] MEDS: BUMETANIDE 2 MG in SYRINGE 0 ML IV ONE (09:59)
[2024-08-19] MEDS: bisacodyL 5 MG TABEC PO ONE (15:22)
[2024-08-19] MEDS: BUMETANIDE 1 MG in SYRINGE 0 ML IV ONE (17:07)
--- NOTE | 2024-08-19 19:10 | Hospitalist Progress Note ---
Date of Service August 19, 2024 Assessment & Plan (1) Acute on chronic systolic heart failure: (2) Acute hypoxemic respiratory failure: (3) Pneumonia: (4) Complicated urinary tract infection: (5) CAD (coronary artery disease): (6) Sleep apnea: (7) Presence of combination internal cardiac defibrillator (ICD) and pacemaker: (8) Paroxysmal atrial fibrillation: (9) History of urinary self-catheterization: (10) History of venous thromboembolism: (11) Parkinsonism: Plan 79yo male with CAD, COPD, sick sinus syndrome s/p pacemaker, ROSE on BiPAP, PAF, chronic systolic CHF 2nd ischemic cardiomyopathy, parkinsonism, and recurrent hospitalizations in 2024 (COVID-19, norovirus, pneumonia, UTI, CHF exacerbations, etc). Presented with chills, cough, dyspnea, worsening LE edema c/w decompensated CHF. #acute on chronic respiratory failure - * 2nd to possible b/l basilar pneumonia * 2nd to acute/chronic systolic CHF * acute component improving nicely * cont diuresis * almost done with abx #possible b/l lower lobe pneumonia - * s/p 7 days of IV Meropenem/ertapenem * s/p IV Vancomycin x 4 days due to MRSA+ status, then switched to zyvox to complete MRSA coverage course * he is day #2 of zyvox #recurrent catheter-associated ESBL Ecoli UTI - * grew this out in late June as well s/p course of carbapenem at that time * PSA just a few weeks ago was normal making prostatitis unlikely * s/p 7 days of ertapenem/meropenem - now off abx for the UTI #acute on chronic systolic CHF - * dietary indiscretion, perhaps not enough standing diuretic, other factors likely all at play * can't rule out ischemia driving some of his decompensation either given recurrent episodes of chest pain during prior admissions and this admission * I spoke with Dr Negron, his hair specialist, by phone 08/17; plan is to get Mr Louise euvolemic, then plan for Lexiscan nuc stress test towards the end of his stay * most recent echo with EF of 25-30% and unchanged wall motion abnormalities * cont coreg * Entresto is on hold at this time * does follow with Donna SWAIN in [facility] [facility] * cont diuresis - 2mg bumex IV qam and 1mg qafternoon * added aldactone 12.5mg daily - titrate to 25mg daily starting tomorrow if BPs, BUN, Cr all stable * not a candidate for Jardiance given his recurrent UTIs #PAF - * cont Eliquis 5mg BID * cont coreg #parkinsonism - * cont pramipexole 0.375mg daily #chronic left heel wound - * stable * cont local wound care * cont special shoes #chronic intermittent self-catheterization - * performs once every 48 hours * this is not for a bladder issue but to maintain patency of the urethra * s/p cath 08/16, 08/18, and so forth #GERD - * PPI daily #chronic pain syndrome - * cont oxycodone 10mg BID as previous #ROSE - * cont BIPAP #pacemaker/ICD status - * last interrogation was wnl with stable device function #opiate-induced constipation - * add dulcolax 5mg x 1 now * cont miralax BID #mood disorder - * holding wellbutrin due to zyvox use * resume when zyvox is complete cont PT, OT will need rehab post discharge updated at bedside today Admission and Anticipated Discharge Date Admission Date: August 12, 2024 Subjective laying in recliner chair during the visit tele overnight - pacing minor dyspnea overnight wants to have a BM but nothing in a couple days and he feels bloated and feels this causes a lot of troubles for him at bedside during the visit eating very well at this point commented she is happy that his edema has improved Review of Systems Review of Systems: cv - no chest pain episodes; orthopnea/PND still present but improved from last week pulm - mild dyspnea on exertion; orthopnea/PND GI - bloating/distension but no n/v - using condom cath Physical Exam Physical Exam: gen - laying in recliner chair, no distress, awake, alert - looks similar to yesterday neck - JVD still present but improved from prior exams mouth - MMM heart - RRR, s1 s2, no murmur lungs - decreased BS right base but improved airation there; minimally decreased BS left base; occasional crackle abd - soft, NT, ND, BS+ ext - 1+ edema from feet to the knees and lower thighs b/l; edema arms resolved; pulses b/l feet 2+ skin - mild stasis changes b/l shins but no cellulitis neuro - contractures of b/l hands Results & Data Results & Data Vital Signs (Past 12 Hours) Vital Signs Temp Pulse Pulse Pulse Resp BP Pulse Ox 08/19/24 16:55 57 L 08/19/24 15:39 36.3 C L 111 H 18 128/71 94 08/19/24 11:51 36.3 C L 92 H 20 118/78 97 08/19/24 10:19 08/19/24 08:10 36.4 C L 96 H 18 124/87 96 08/19/24 07:20 89 17 91 08/19/24 07:19 90 O2 Del Method O2 Flow Rate 08/19/24 16:55 08/19/24 15:39 Nasal Cannula 3 08/19/24 11:51 Nasal Cannula 08/19/24 10:19 Nasal Cannula 3 08/19/24 08:10 Nasal Cannula 3 08/19/24 07:20 Nasal Cannula 3 08/19/24 07:19 Laboratory Results Laboratory Results - last 24 hr 08/19/24 06:12 Sodium 135 L Potassium 4.2 Chloride 98 Carbon Dioxide 28 Anion Gap 9 BUN 22 Creatinine 1.04 Est Cr Clr Drug Dosing 72.3 eGFR 73.04 BUN/Creatinine Ratio 21.2 H Glucose 112 H Calcium 9.5 Magnesium 2.2 PG Care Time/CCT Total # of Minutes Spent Total Time Spent with Patient: Total time spent is greater than 50% in coordination of care (as documented) at patient's floor/unit and/or counseling patient: Coding Level of Care Code 40332 SUB INP/OBS CARE 3/50MIN Diagnoses Acute on chronic systolic heart failure I50.23 Acute hypoxemic respiratory failure J96.01 Pneumonia J18.9 Complicated urinary tract infection N39.0 CAD (coronary artery disease) I25.10 Sleep apnea G47.30 Presence of combination internal cardiac defibrillator (ICD) and pacemaker Z95.810 Paroxysmal atrial fibrillation I48.0 History of urinary self-catheterization Z78.9 History of venous thromboembolism Z86.718 Parkinsonism G20.C
[2024-08-20] MEDS: ONDANSETRON INJ 2 MG/ML 2 ML VIAL IV PRN (00:25)
[2024-08-20 07:21] LABS: BUN Creatinine Ratio 26.4 (10-20); Calcium 9.2 mg/dl (8.6-10.3); Creatinine Clr Calc Pharmacy 82.7 ml/min
[2024-08-20] MEDS: bisacodyL 5 MG TABEC PO ONE (09:11)
[2024-08-20] MEDS: SPIRONOLACTONE 25 MG TAB PO SCH (09:11)
[2024-08-20] MEDS: BUMETANIDE 2 MG in SYRINGE 0 ML IV ONE (09:11)
--- NOTE | 2024-08-20 13:28 | Hospitalist Progress Note ---
Date of Service August 20, 2024 Assessment & Plan (1) Acute on chronic systolic heart failure: (2) Acute hypoxemic respiratory failure: (3) Pneumonia: (4) Complicated urinary tract infection: (5) CAD (coronary artery disease): (6) Sleep apnea: (7) Presence of combination internal cardiac defibrillator (ICD) and pacemaker: (8) Paroxysmal atrial fibrillation: (9) History of urinary self-catheterization: (10) History of venous thromboembolism: (11) Parkinsonism: Plan 79yo male with CAD, COPD, sick sinus syndrome s/p pacemaker, ROSE on BiPAP, PAF, chronic systolic CHF 2nd ischemic cardiomyopathy, parkinsonism, and recurrent hospitalizations in 2024 (COVID-19, norovirus, pneumonia, UTI, CHF exacerbations, etc). Presented with chills, cough, dyspnea, worsening LE edema c/w decompensated CHF. Also with evidence of UTI and possible pneumonia. #acute on chronic respiratory failure - * 2nd to possible b/l basilar pneumonia - clinically resolved * 2nd to acute/chronic systolic CHF - improving volume status * cont diuresis * almost done with abx (zyvox) #possible b/l lower lobe pneumonia - * s/p 7 days of IV Meropenem/ertapenem * s/p IV Vancomycin x 4 days due to MRSA+ status, then switched to zyvox to complete MRSA coverage course * he is day #3 of zyvox; tomorrow will be last day of Rx #recurrent catheter-associated ESBL Ecoli UTI - * grew this out in late June as well s/p course of carbapenem at that time * PSA just a few weeks ago was normal making prostatitis unlikely * s/p 7 days of ertapenem/meropenem - now off abx for the UTI #acute on chronic systolic CHF - * dietary indiscretion, perhaps not enough standing diuretic, other factors likely all at play * can't rule out ischemia driving some of his decompensation either given recurrent episodes of chest pain during prior admissions and this admission * I spoke with Dr Negron, his machine feller, by phone 08/17; plan is to get Mr Louise euvolemic, then plan for Lexiscan nuc stress test towards the end of his stay * most recent echo with EF of 25-30% and unchanged wall motion abnormalities * cont coreg * Entresto is on hold at this time * does follow with Donna SWAIN in [facility] [place] CHF clinic * cont diuresis - 2mg bumex IV qam and 1mg qafternoon * added aldactone 12.5mg daily - titrate to 25mg daily starting today * not a candidate for Jardiance given his recurrent UTIs #PAF - * cont Eliquis 5mg BID * cont coreg #parkinsonism - * cont pramipexole 0.375mg daily #chronic left heel wound - * stable * cont local wound care * cont special shoes #chronic intermittent self-catheterization - * performs once every 48 hours * this is not for a bladder issue but to maintain patency of the urethra * s/p cath 08/16, 08/18, and so forth #GERD - * PPI daily #chronic pain syndrome - * cont oxycodone 10mg BID as previous #ROSE - * cont BIPAP; brought home unit in today #pacemaker/ICD status - * last interrogation was wnl with stable device function #opiate-induced constipation - * gave dulcolax 5mg x 1 again this am * really should be on senna daily * cont miralax BID #mood disorder - * holding wellbutrin due to zyvox use * resume when zyvox is complete cont PT, OT will need rehab post discharge updated at bedside again today Admission and Anticipated Discharge Date Admission Date: August 12, 2024 Subjective no events overnight except patient could not tolerate the hospital issued BIPAP for the 2nd night in a row his did bring in his home BIPAP however had good sized formed BM this am eating well edema continues to improve dyspnea improving tele - pacing one 6-beat run of NSVT Review of Systems Review of Systems: CV - no chest pain; some ongoing PND pulm - no dyspnea or wheezing GI - no N/V Physical Exam Physical Exam: gen - laying in bed comfortably; NAD neck - ongoing JVD mouth - MMM heart - RRR, s1 s2, no murmur lungs - decreased BS right base but improved airation over last 3 days;; mild decreased BS left base; occasional crackle on left abd - soft, NT, ND, BS+ ext - 1+ edema from feet to just below the knees; pulses b/l feet 2+ neuro - contractures of b/l hands psych - a/o x 3 Results & Data Results & Data Vital Signs (Past 12 Hours) Vital Signs Temp Pulse Pulse Pulse Resp BP Pulse Ox 08/20/24 12:06 36.5 C 88 18 124/80 92 08/20/24 09:58 08/20/24 07:29 36.5 C 89 18 123/80 96 08/20/24 07:15 91 H 08/20/24 07:10 80 16 96 08/20/24 03:35 36.6 C 66 16 116/78 95 O2 Del Method O2 Flow Rate 08/20/24 12:06 Nasal Cannula 08/20/24 09:58 Nasal Cannula 3 08/20/24 07:29 Nasal Cannula 3 08/20/24 07:15 08/20/24 07:10 Nasal Cannula 08/20/24 03:35 Nasal Cannula 3 Laboratory Results Laboratory Results - last 24 hr 08/20/24 06:32 Sodium 137 Potassium 4.0 Chloride 98 Carbon Dioxide 31 Anion Gap 8 BUN 24 H Creatinine 0.91 Est Cr Clr Drug Dosing 82.7 eGFR 85.73 BUN/Creatinine Ratio 26.4 H Glucose 107 H Calcium 9.2 PG Care Time/CCT Total # of Minutes Spent Total Time Spent with Patient: Total time spent is greater than 50% in coordination of care (as documented) at patient's floor/unit and/or counseling patient: Coding Level of Care Code 77457 SUB INP/OBS CARE 2/35MIN Diagnoses Acute on chronic systolic heart failure I50.23 Acute hypoxemic respiratory failure J96.01 Pneumonia J18.9 Complicated urinary tract infection N39.0 CAD (coronary artery disease) I25.10 Sleep apnea G47.30 Presence of combination internal cardiac defibrillator (ICD) and pacemaker Z95.810 Paroxysmal atrial fibrillation I48.0 History of urinary self-catheterization Z78.9 History of venous thromboembolism Z86.718 Parkinsonism G20.C
[2024-08-20] MEDS: BUMETANIDE 1 MG in SYRINGE 0 ML IV ONE (16:09)
[2024-08-20] MEDS: ALUMINUM/MAGNESIUM/SIMETH (MAALOX MAX) 30 ML UDC PO PRN (20:56)
[2024-08-21 07:03] LABS: Hematocrit (blood only) 35.2 % (42.0-52.0); Hemoglobin 11.4 g/dl (14.0-18.0); Mean Corpuscular Hemoglobin 28.1 pg (25.0-34.0); Mean Corpuscular Hgb Conc 32.4 g/dL (32.0-36.0); Mean Corpuscular Volume 86.7 fL (80.0-100.0); Platelet Count 389 K/uL (130-400); RDW Coefficient of Variation 14.9 % (11.5-14.5); RDW Standard Deviation 47.4 fL (36.4-46.3); Red Blood Count 4.06 M/uL (4.70-6.10); White Blood Count 9.99 K/ul (4.8-10.8)
[2024-08-21 07:24] LABS: BUN Creatinine Ratio 26.3 (10-20); Calcium 9.1 mg/dl (8.6-10.3); Creatinine Clr Calc Pharmacy 79.2 ml/min; Magnesium 2.3 mg/dl (1.7-2.4); Potassium 3.9 mmol/L (3.5-5.1)
[2024-08-21] MEDS: BUMETANIDE 2 MG in SYRINGE 0 ML IV ONE (09:00)
[2024-08-21] MEDS: BUMETANIDE 1 MG in SYRINGE 0 ML IV ONE (16:21)
--- NOTE | 2024-08-21 17:46 | Hospitalist Progress Note ---
Date of Service August 21, 2024 Assessment & Plan (1) Acute on chronic systolic heart failure: (2) Acute hypoxemic respiratory failure: (3) Pneumonia: (4) Complicated urinary tract infection: (5) CAD (coronary artery disease): (6) Sleep apnea: (7) Presence of combination internal cardiac defibrillator (ICD) and pacemaker: (8) Paroxysmal atrial fibrillation: (9) History of urinary self-catheterization: (10) History of venous thromboembolism: (11) Parkinsonism: Plan 79yo male with CAD, COPD, sick sinus syndrome s/p pacemaker, ROSE on BiPAP, PAF, chronic systolic CHF 2nd ischemic cardiomyopathy, parkinsonism, and recurrent hospitalizations in 2024 (COVID-19, norovirus, pneumonia, UTI, CHF exacerbations, etc). Presented with chills, cough, dyspnea, worsening LE edema c/w decompensated CHF. Also with evidence of UTI and possible pneumonia. #acute on chronic respiratory failure - * 2nd to possible b/l basilar pneumonia - clinically resolved * 2nd to acute/chronic systolic CHF - improving volume status, best he has looked in over a week * cont diuresis * cont zyvox #possible b/l lower lobe pneumonia - * s/p 7 days of IV Meropenem/ertapenem * s/p IV Vancomycin x 4 days due to MRSA+ status, then switched to zyvox to complete MRSA coverage course * he is day #3-4 of zyvox; last dose of zyvox - 08/22/24 #recurrent catheter-associated ESBL Ecoli UTI - * grew this out in late June as well s/p course of carbapenem at that time * PSA just a few weeks ago was normal making prostatitis unlikely * s/p 7 days of ertapenem/meropenem - now off abx for the UTI #acute on chronic systolic CHF - * dietary indiscretion, perhaps not enough standing diuretic, other factors likely all at play * can't rule out ischemia driving some of his decompensation either given recurrent episodes of chest pain during prior admissions and this admission * most recent echo with EF of 25-30% and unchanged wall motion abnormalities * cont coreg * Entresto is on hold * cont diuresis - 2mg bumex IV qam and 1mg qafternoon - tolerating this with stable BMP & good diuresis * added aldactone 12.5mg daily - titrated to 25mg daily * not a candidate for Jardiance given his recurrent UTIs * does follow with Donna SWAIN in [facility] [place] CHF clinic #PAF - * cont Eliquis 5mg BID * cont coreg #parkinsonism - * cont pramipexole 0.375mg daily #chronic left heel wound - * stable * cont local wound care * cont special shoes #chronic intermittent self-catheterization - * performs once every 48 hours * this is not for a bladder issue but to maintain patency of the urethra * s/p cath 08/16, 08/18, 08/20 and so forth #CAD - * had inferior wall VT with RCA PCI in 2010 * last cath was 2010 -- left main w/o disease; LAD - prox 30% stenosis; L Cx - proximal 50-60% * remains on aspirin, coreg BID * he is not on statin agent * I have spoken with Dr Negron twice in the last week -- plan is Lexiscan nuclear stress test before discharge, possibly next 1-2 days #GERD - * PPI twice daily #chronic pain syndrome - * cont oxycodone 10mg BID as previous #ROSE - * cont BIPAP; brought home unit in today #pacemaker/ICD status - * last interrogation was wnl with stable device function #opiate-induced constipation - * really should be on senna daily - will add * cont miralax BID #mood disorder - * holding wellbutrin due to zyvox use * resume when zyvox is complete cont PT, OT will need rehab post discharge updated at bedside again today Admission and Anticipated Discharge Date Admission Date: August 12, 2024 Subjective no events overnight he did have his home BIPAP unit wore it about 1/2 the night then took it off had upset stomach denies any orthopnea/PND overnight he slept in the bed last pm - first time in many days denies any new complaints had BM again this am eating well during the visit I removed his NC O2 - sats were about 88-89% in room air placed back on 1 L NC O2 -- sats promptly went to 92/93% at bedside and updated Review of Systems Review of Systems: CV - no chest pain pulm - no dyspnea at rest GI - no abd pain; no vomiting Physical Exam Physical Exam: gen - sitting in recliner chair eating his lunch; NAD; occasional cough neck - mild JVD present mouth - MMM heart - RRR, s1 s2, no murmur lungs - decreased BS right base but again improved airation; minimal decreased BS left base; occasional crackle only abd - soft, NT, ND, BS+ ext - <1+ edema from feet to below the knees; pulses b/l feet 2+ neuro - contractures of b/l hands psych - a/o x 3 Results & Data Results & Data Vital Signs (Past 12 Hours) Vital Signs Temp Pulse Pulse Resp BP Pulse Ox O2 Del Method 08/21/24 16:06 36.4 C L 91 H 18 117/74 92 Nasal Cannula 08/21/24 14:06 91 H 08/21/24 09:34 Nasal Cannula 08/21/24 07:37 36.8 C 93 H 20 125/77 94 Nasal Cannula 08/21/24 07:19 90 08/21/24 07:18 93 H 20 94 Nasal Cannula O2 Flow Rate 08/21/24 16:06 1 08/21/24 14:06 08/21/24 09:34 3 08/21/24 07:37 3 08/21/24 07:19 08/21/24 07:18 2 Laboratory Results Laboratory Results - last 24 hr 08/21/24 06:45 WBC 9.99 RBC 4.06 L Hgb 11.4 L Hct 35.2 L MCV 86.7 MCH 28.1 MCHC 32.4 RDW Std Deviation 47.4 H RDW Coeff of Jerry 14.9 H Plt Count 389 MPV 10.0 Sodium 137 Potassium 3.9 Chloride 99 Carbon Dioxide 32 Anion Gap 6 BUN 25 H Creatinine 0.95 Est Cr Clr Drug Dosing 79.2 eGFR 81.42 BUN/Creatinine Ratio 26.3 H Glucose 111 H Calcium 9.1 Magnesium 2.3 PG Care Time/CCT Total # of Minutes Spent Total Time Spent with Patient: Total time spent is greater than 50% in coordination of care (as documented) at patient's floor/unit and/or counseling patient: Coding Level of Care Code 09249 SUB INP/OBS CARE 3/50MIN Diagnoses Acute on chronic systolic heart failure I50.23 Acute hypoxemic respiratory failure J96.01 Pneumonia J18.9 Complicated urinary tract infection N39.0 CAD (coronary artery disease) I25.10 Sleep apnea G47.30 Presence of combination internal cardiac defibrillator (ICD) and pacemaker Z95.810 Paroxysmal atrial fibrillation I48.0 History of urinary self-catheterization Z78.9 History of venous thromboembolism Z86.718 Parkinsonism G20.C
--- NOTE | 2024-08-21 18:42 | Cardiology Progress Note ---
Date of Service August 21, 2024 Assessment & Plan (1) CAD (coronary artery disease): Plan: He has known coronary disease with prior [place] and stenting. He has been relatively asymptomatic from an anginal standpoint but his functional capacity has declined over the years. He has had several admissions now with modestly elevated troponins and I wonder if he has had progression of coronary disease contributing to this. He is not a great candidate for catheterization and PCI but if he has a large amount of ischemia then that would warrant more aggressive measures. We will start with a Lexiscan stress MPI to see if there is ischemia and if so to what extent. For now, he will continue with his current medical regimen. (2) Acute exacerbation of CHF (congestive heart failure): Plan: Patient indulged with high sodium foods over the holiday. This certainly does not help his volume status. He chronically has some lower extremity edema but this seems to have been more than that. At the moment, he is doing better and probably near euvolemia. In all likelihood he will never have 0 edema in his feet because he sits in his chair all day. Continue current medical regimen. Admission and Anticipated Discharge Date Admission Date: August 12, 2024 Subjective Patient was seen and examined this afternoon. He has no chest pain. He feels like his breathing is better. He feels he could lie flat for testing. I discussed that I felt he should undergo Lexiscan stress MPI to evaluate for ischemia. His last catheterization was in 2010. He does not have a lot of anginal symptoms but his functional capacity is very low. He has had some low- grade elevations in his troponin on recent admissions. He does not understand still that the salty food that he continues to indulge in at times causes him to have volume overload. Review of Systems Review of Systems: Negative except as per HPI Physical Exam Constitutional: WD/WN, vitals as above Neck: Thick. No JVD appreciated. Respiratory: Poor air movement. Basilar crackles. Cardiovascular: Irregular rhythm with a normal rate. Neurologic: Diminished hearing. Cognition intact speech is fluent. Contractures unchanged. Psychiatric: A+Ox3, euthymic affect Results & Data Vital Signs (Past 12 Hours) Vital Signs Temp Pulse Pulse Resp BP Pulse Ox O2 Del Method 08/21/24 16:06 36.4 C L 91 H 18 117/74 92 Nasal Cannula 08/21/24 14:06 91 H 08/21/24 09:34 Nasal Cannula 08/21/24 07:37 36.8 C 93 H 20 125/77 94 Nasal Cannula 08/21/24 07:19 90 08/21/24 07:18 93 H 20 94 Nasal Cannula O2 Flow Rate 08/21/24 16:06 1 08/21/24 14:06 08/21/24 09:34 3 08/21/24 07:37 3 08/21/24 07:19 08/21/24 07:18 2 PG Care Time/CCT Total # of Minutes Spent Total Time Spent with Patient: Total time spent is greater than 50% in coordination of care (as documented) at patient's floor/unit and/or counseling patient: Coding Level of Care Code 49757 SUB INP/OBS CARE 2MIN Diagnoses CAD (coronary artery disease) I25.10 Acute exacerbation of CHF (congestive heart failure) I50.9
[2024-08-22 07:30] LABS: BUN Creatinine Ratio 29.5 (10-20); Creatinine Clr Calc Pharmacy 78.5 ml/min; Potassium 3.9 mmol/L (3.5-5.1)
--- NOTE | 2024-08-22 10:13 | Hospitalist Progress Note ---
Date of Service August 22, 2024 Assessment & Plan (1) Acute on chronic systolic heart failure: Plan: dietary indiscretion, perhaps not enough standing diuretic, other factors likely all at play * can't rule out ischemia driving some of his decompensation either given re current episodes of chest pain during prior admissions and this admission * most recent echo with EF of 25-30% and unchanged wall motion abnormalities * cont coreg * Entresto is on hold * cont diuresis - 2mg bumex IV qam and 1mg qafternoon - tolerating this with stable BMP & good diuresis * added aldactone 12.5mg daily - titrated to 25mg daily * not a candidate for Jardiance given his recurrent UTIs * does follow with Donna SWAIN [place] [facility] * Lexiscan stress test today 08/22, f/u results as per cardiology (2) Acute hypoxemic respiratory failure: Plan: 2nd to possible b/l basilar pneumonia - clinically resolved * 2nd to acute/chronic systolic CHF - improving volume status, best he has looked in over a week * cont diuresis * cont zyvox (3) Pneumonia: Plan: s/p 7 days of IV Meropenem/ertapenem * s/p IV Vancomycin x 4 days due to MRSA+ status, then switched to zyvox to complete MRSA coverage course * he is day #3 (4) Complicated urinary tract infection: Plan: grew this out in late June as well s/p course of carbapenem at that time * PSA just a few weeks ago was normal making prostatitis unlikely * s/p 7 days of ertapenem/meropenem - now off abx for the UTI (5) CAD (coronary artery disease): Plan: had inferior wall OR with RCA PCI in 2010 * last cath was 2010 -- left main w/o disease; LAD - prox 30% stenosis; L Cx - proximal 50-60% * remains on aspirin, coreg BID * he is not on statin agent (6) Sleep apnea: Plan: cont BIPAP; brought home unit in today (7) Presence of combination internal cardiac defibrillator (ICD) and pacemaker: Plan: last interrogation was wnl with stable device function (8) Paroxysmal atrial fibrillation: Plan: cont Eliquis 5mg BID * cont coreg (9) History of urinary self-catheterization: Plan: performs once every 48 hours * this is not for a bladder issue but to maintain patency of the urethra (10) History of venous thromboembolism: (11) Parkinsonism: Plan: cont pramipexole 0.375mg daily Plan 79yo male with CAD, COPD, sick sinus syndrome s/p pacemaker, ROSE on BiPAP, PAF, chronic systolic CHF 2nd ischemic cardiomyopathy, parkinsonism, and recurrent hospitalizations in 2024 (COVID-19, norovirus, pneumonia, UTI, CHF exacerbations, etc). Presented with chills, cough, dyspnea, worsening LE edema c/w decompensated CHF. Also with evidence of UTI and possible pneumonia. Pt's requesting d/c home with home care. Will have PT reassess for possible d/c home Admission and Anticipated Discharge Date Admission Date: August 12, 2024 Subjective Pt had lexiscan stress test today. Review of Systems Review of Systems: CONST: Negative for fever, body aches and chills. HENT: Negative for neck pain/stiffness, headache, congestion, sore throat, swelling. EYES: Negative for discharge/pain or vision changes. RESP: Negative for cough/hemoptysis and shortness of breath. CV: Negative chest pain, difficulty breathing, palpitations. ABD: Negative pain, nausea, vomiting. : Negative increase frequency, dysuria, blood in urine or stool. MUSC: Negative for muscle aches, edema. SKIN: Negative rash, lesions/sores. NEURO: Negative headache, dizziness, weakness. Physical Exam Physical Exam: GENERAL APPEARANCE NAD, activity normal for age, well developed/ well nourished, no cyanosis, pallor, or diaphoresis. EYES lids/conjunctiva normal. EARS/NOSE/THROAT Mucous membranes moist, nares normal, lips/teeth normal uvula midline without oral pharyngeal erythema, exudate or swelling TMs normal bilaterally. No lymphangitis/lymphedema. HEAD/NECK normocephalic atraumatic, no facial trauma, neck is supple. RESPIRATORY respiratory effort normal, speaks in full sentences, no tripod position, no accessory muscle use. Lungs clear to auscultation without rhonchi, wheezes, rales CARDIAC Regular rate and rhythm, no edema. ABDOMINAL Soft, ND/NT. No evidence of fluid wave. No pulsatile masses on exam, rebound tenderness, Fitch sign or pain over Mcburney's point. MUSCLES/EXTREMITIES No abnormal range of motion, no swelling. SKIN Warm, pink and dry. No rashes, dermatoses, petechiae or lesions. NEUROLOGICAL Speech is clear and appropriate. Normal level of consciousness. Gait and coordination are normal. 5/5 strength in all extremities. PSYCH Normal mood and affect. Judgement/competence is appropriate Results & Data Results & Data Vital Signs (Past 12 Hours) Vital Signs Temp Pulse Pulse Resp BP Pulse Ox O2 Del Method 08/22/24 08:24 Nasal Cannula 08/22/24 07:43 36.7 C 95 H 18 130/73 96 Nasal Cannula 08/22/24 07:23 68 16 97 Nasal Cannula 08/22/24 07:00 90 08/22/24 02:49 94 H 20 122/81 95 CPAP 08/22/24 00:12 90 08/21/24 22:22 88 18 129/86 91 CPAP O2 Flow Rate 08/22/24 08:24 3 08/22/24 07:43 3.5 08/22/24 07:23 3 08/22/24 07:00 08/22/24 02:49 2 08/22/24 00:12 08/21/24 22:22 2 PG Care Time/CCT Total # of Minutes Spent Total Time Spent with Patient: Total time spent is greater than 50% in coordination of care (as documented) at patient's floor/unit and/or counseling patient: Coding Level of Care Code 30407 SUB INP/OBS CARE 2/35MIN Diagnoses Acute on chronic systolic heart failure I50.23 Acute hypoxemic respiratory failure J96.01 Pneumonia J18.9 Complicated urinary tract infection N39.0 CAD (coronary artery disease) I25.10 Sleep apnea G47.30 Presence of combination internal cardiac defibrillator (ICD) and pacemaker Z95.810 Paroxysmal atrial fibrillation I48.0 History of urinary self-catheterization Z78.9 History of venous thromboembolism Z86.718 Parkinsonism G20.C
[2024-08-22] MEDS: SENNA 8.6 MG TAB PO SCH (12:03)
[2024-08-22] MEDS: REGADENOSON 0.4 MG/5 ML SYR IV ONE (12:15)
[2024-08-22] MEDS: BUMETANIDE 1 MG in SYRINGE 0 ML IV ONE (16:06)
--- NOTE | 2024-08-22 18:33 | Cardiology Progress Note ---
Date of Service August 22, 2024 Assessment & Plan (1) HFrEF (heart failure with reduced ejection fraction): Plan: Patient is near euvolemic. His weight is down significantly since admission as is his edema and apparent interstitial edema based on physical exam. Heart rate is too fast. Blood pressure is high for him although it is certainly considered within normal limits. I think he should continue with the carvedilol 3.125 mg p.o. twice daily. We need him back on his Bumex although 1 mg daily may not be adequate in and up itself. I do agree with the Aldactone if he can tolerate it. I am thinking no more than 25 mg and even consider 12.5 mg for now. I think it is important that he resumes his Entresto but we can do this as an outpatient. We probably need to titrate up his carvedilol a little bit unless we think he is hypovolemic at the moment in which case that would explain the tachycardia. Patient should return to the heart failure clinic or see me in cardiology clinic within 1 to 2 weeks of discharge. (2) CAD (coronary artery disease): Plan: The stress MPI shows large area of infarct with severe infarct present. There is only mild dino-infarct ischemia. I suspect in addition to his known RCA myocardial infarction he has also had a circumflex distribution infarction. At this point, the risk of cardiac catheterization outweighs anticipated benefit given his low level of dino-infarct ischemia. We will reserve cardiac catheterization for acute myocardial infarction, intractable ventricular arrhythmia, or cardiogenic shock. Patient should continue with low-dose aspirin, statin, beta-clotilde, and the ARB portion of Entresto if possible. (3) Paroxysmal atrial fibrillation: Plan: Irregular rhythm but controlled rate. A little bit fast at the moment but not excessively so. Ultimately, I think we are going to have to increase the carvedilol to 6.25 mg p.o. twice daily. Plan Will see how he does overnight. He will be discharged within the next 24 to 48 hours and we can do additional medication titrations as an outpatient. Admission and Anticipated Discharge Date Admission Date: August 12, 2024 Subjective Patient was seen in his room today as well as in the nuclear medicine suite where he underwent a Lexiscan stress MPI. I have reviewed that study and the report will be completed. Briefly, is a large area of severe infarct which is old and fixed inferoseptal, inferior, inferolateral, apical, and distal anterior segments. There is mild associated dino-infarct ischemia. Because of his chronic atrial fibrillation and pacemaker the gated imaging could not be performed. I have made the patient aware of the findings and my recommendation for medical management. His was present for the discussion. Review of Systems Review of Systems: Negative except as per HPI Physical Exam Constitutional: WD/WN, vitals as above Neck: Thick. No JVD appreciated. Respiratory: Poor air movement. Crackles are resolved today. Cardiovascular: Irregular rhythm with a normal rate. Neurologic: Diminished hearing. Cognition intact speech is fluent. Contractures unchanged. Psychiatric: A+Ox3, euthymic affect Results & Data Vital Signs (Past 12 Hours) Vital Signs Temp Pulse Pulse Resp BP Pulse Ox O2 Del Method 08/22/24 15:05 36.4 C L 100 H 18 107/74 90 Nasal Cannula 08/22/24 14:35 88 08/22/24 11:49 37 C 97 H 18 120/73 91 Nasal Cannula 08/22/24 08:24 Nasal Cannula 08/22/24 07:43 36.7 C 95 H 18 130/73 96 Nasal Cannula 08/22/24 07:23 68 16 97 Nasal Cannula 08/22/24 07:00 90 O2 Flow Rate 08/22/24 15:05 1 08/22/24 14:35 08/22/24 11:49 2 08/22/24 08:24 3 08/22/24 07:43 3.5 08/22/24 07:23 3 08/22/24 07:00 PG Care Time/CCT Total # of Minutes Spent Total Time Spent with Patient: Total time spent is greater than 50% in coordination of care (as documented) at patient's floor/unit and/or counseling patient: Coding Level of Care Code 22435 SUB INP/OBS CARE 2/35MIN Diagnoses HFrEF (heart failure with reduced ejection fraction) I50.20 CAD (coronary artery disease) I25.10 Paroxysmal atrial fibrillation I48.0
[2024-08-22 23:02] VITALS: RESP 18
[2024-08-23 07:49] VITALS: BP 129/79; TEMP 97.9; O2SAT 94
--- NOTE | 2024-08-23 09:53 | Discharge Summary ---
Discharge Summary Date of Service August 23, 2024 Principal Dx & Hospital Course #1 = Principal Diagnosis (1) Acute on chronic systolic heart failure: dietary indiscretion, perhaps not enough standing diuretic, other factors likely all at play * can't rule out ischemia driving some of his decompensation either given recurrent episodes of chest pain during prior admissions and this admission * most recent echo with EF of 25-30% and unchanged wall motion abnormalities * cont coreg * Entresto is on hold * cont diuresis - 2mg bumex IV qam and 1mg qafternoon - tolerating this with stable BMP & good diuresis * added aldactone 12.5mg daily - titrated to 25mg daily * not a candidate for Jardiance given his recurrent UTIs * does follow with Donna SWAIN in [facility] * Lexiscan stress test today 08/22, f/u results as per cardiology (2) Acute hypoxemic respiratory failure: 2nd to possible b/l basilar pneumonia - clinically resolved * 2nd to acute/chronic systolic CHF - improving volume status, best he has looked in over a week * cont diuresis * cont zyvox (3) Pneumonia: s/p 7 days of IV Meropenem/ertapenem * s/p IV Vancomycin x 4 days due to MRSA+ status, then switched to zyvox to complete MRSA coverage course * he is day #3 (4) Complicated urinary tract infection: grew this out in late June as well s/p course of carbapenem at that time * PSA just a few weeks ago was normal making prostatitis unlikely * s/p 7 days of ertapenem/meropenem - now off abx for the UTI (5) CAD (coronary artery disease): had inferior wall MO with RCA PCI in 2010 * last cath was 2010 -- left main w/o disease; LAD - prox 30% stenosis; L Cx - proximal 50-60% * remains on aspirin, coreg BID * he is not on statin agent (6) Sleep apnea: cont BIPAP; brought home unit in today (7) Presence of combination internal cardiac defibrillator (ICD) and pacemaker: last interrogation was wnl with stable device function (8) Paroxysmal atrial fibrillation: cont Eliquis 5mg BID * cont coreg (9) History of urinary self-catheterization: performs once every 48 hours * this is not for a bladder issue but to maintain patency of the urethra (10) History of venous thromboembolism: (11) Parkinsonism: cont pramipexole 0.375mg daily Plan 79yo male with CAD, COPD, sick sinus syndrome s/p pacemaker, ROSE on BiPAP, PAF, chronic systolic CHF 2nd ischemic cardiomyopathy, parkinsonism, and recurrent hospitalizations in 2024 (COVID-19, norovirus, pneumonia, UTI, CHF exacerbations, etc). Presented with chills, cough, dyspnea, worsening LE edema c/w decompensated CHF. Also with evidence of UTI and possible pneumonia. Pt's requesting d/c home with home care. Will have PT reassess for possible d/c home Admission HPI Per Admitting Provider DaniRoyce is a 79 Y O Male with PMH of Coronary Artery Disease, S/P Pacemaker, Obstructive Sleep Apnea(on BIPAP), Hypertension, Dyslipidemia, Peripheral Neuropathy Paroxysmal AF, CHF, Parkinsonism, presented today from facility. He was in facility for past 2 weeks since last time he was admitted in the hospital. This morning he was doing good, had his breakfast which was uneventful. Just after breakfast, all of sudden started feeling shaky, had chills , felt weak and BP went down. Denies fever, palpitation, chest pain, abdominal pain, N/V, sore throat and facial congestion Has Shortness of Breath on and off which is ongoing since last visit. Has occasional cough with phlegm production. Has noticed increase in swelling of bilateral legs for past 1 2 days Denies difficulty or burning on peeing. Appetite normal. Having regular BM No smoking or alcohol currently He was admitted 2 weeks ago for ESBL associated UTI Discharge Exam GENERAL APPEARANCE NAD, activity normal for age, well developed/ well nourished, no cyanosis, pallor, or diaphoresis. EYES lids/conjunctiva normal. EARS/NOSE/THROAT Mucous membranes moist, nares normal, lips/teeth normal uvula midline without oral pharyngeal erythema, exudate or swelling TMs normal bilaterally. No lymphangitis/lymphedema. HEAD/NECK normocephalic atraumatic, no facial trauma, neck is supple. RESPIRATORY respiratory effort normal, speaks in full sentences, no tripod position, no accessory muscle use. Lungs clear to auscultation without rhonchi, wheezes, rales CARDIAC Regular rate and rhythm, no edema. ABDOMINAL Soft, ND/NT. No evidence of fluid wave. No pulsatile masses on exam, rebound tenderness, Fitch sign or pain over Mcburney's point. MUSCLES/EXTREMITIES No abnormal range of motion, no swelling. SKIN Warm, pink and dry. No rashes, dermatoses, petechiae or lesions. NEUROLOGICAL Speech is clear and appropriate. Normal level of consciousness. Gait and coordination are normal. 5/5 strength in all extremities. PSYCH Normal mood and affect. Judgement/competence is appropriate Discharge Plan Discharge Items Patient Disposition: Home - Self-Care Reason For Visit: SOB Discharge Diagnosis: CHF Activity: Resume your previous activity Non-emergency contact: Primary Care Provider Call non-emergency contact if: you have any medication questions Follow-up/Referrals: Tramaine Peterson MD [Primary Care Provider] - Diet: Heart Healthy Addtl Attending Provider Instructions: Follow up with heart care clinic in 1-2 weeks Pending Studies at Discharge: No Stand-Alone Forms: My [facility] [employer], Smoking Cessation Medications and DC Order Prescriptions: New spironolactone 25 mg Tablet 25 mg PO DAILY Qty: 30 0RF bumetanide 1 mg tablet 1 mg PO Q OTHER DAY Qty: 30 0RF carvedilol 3.125 mg Tablet 3.125 mg PO BIDM Qty: 60 0RF valsartan 40 mg tablet 40 mg PO DAILY Qty: 30 0RF Continued bumetanide 1 mg tablet 1 mg PO QAM Qty: 90 3RF potassium chloride 20 mEq tablet extended release 20 meq PO BID Qty: 200 3RF cetirizine 10 mg tablet 10 mg PO QDB bupropion HCl 100 mg tablet 100 mg PO BID Rx Instructions: TAKE THIS MEDICATION EVERY MORNING AND AT NOON albuterol sulfate 90 mcg/actuation HFA aerosol inhaler 2 puffs inhalation Q6H PRN (Reason: Shortness Of Breath Or Wheezing) docusate sodium 100 mg capsule 100 mg PO BID Hold Instructions: Resume on 06/27/24. finasteride 5 mg tablet 5 mg PO QAM pantoprazole 40 mg tablet,delayed release (DR/EC) 40 mg PO BID Eliquis 5 mg tablet 5 mg PO BID Qty: 180 3RF PreserVision AREDS 4,296 mcg-226 mg-90 mg capsule 1 cap PO BID aspirin 81 mg Tablet,Delayed Release (Dr/Ec) 81 mg PO QAM sennosides 8.6 mg Tablet 8.6 mg PO BID Hold Instructions: Resume on 06/27/24. Refresh Lacri-Lube 56.8-42.5 % Ointment 1 applic OPHTHALMIC (EYE) HS Rx Instructions: 1/8th INCH IN EACH EYE Stiolto Respimat 2.5-2.5 mcg/actuation Mist 2 puff INHALATION QAM epinephrine 0.3 mg/0.3 mL Auto-Injector 0.3 mg IM DIRECTED PRN (Reason: sEVERE ALLERGIC REACTION) aluminum hydroxide gel 320 mg/5 mL Suspension 960 mg PO DAILY PRN (Reason: Heartburn) oxycodone [OxyContin] 10 mg Tablet,Oral Only,Ext.Rel.12 Hr 10 mg PO BID metoclopramide HCl 5 mg Tablet 5 mg BID ipratropium-albuterol 0.5 mg-3 mg(2.5 mg base)/3 mL Solution For Nebulization 3 ml NEB Q6R PRNQty: 0 0RF polyethylene glycol 3350 [Miralax] 17 gram Powder In Packet 17 g PO BID Qty: 0 0RF acetaminophen [Tylenol] 325 mg Tablet 650 mg PO Q6H PRN (Reason: Pain/Fever) pramipexole 0.125 mg Tablet 0.375 mg PO QAM nitroglycerin 0.4 mg Tablet, Sublingual 0.4 mg sublingual DIRECTED PRN (Reason: Chest Pain) Rx Instructions: Every 5 minutes as needed for chest pain x 3 doses Discontinued sacubitril-valsartan 49-51 mg tablet 1 tab PO AMPM Hold Instructions: hold until you see your outpatient doctors carvedilol 12.5 mg Tablet 12.5 mg PO BID Qty: 0 0RF Discharge Orders: Discharge Order (Routine); Ordered 08/23/24 Ordered By: Bandar Farley Admission Data Admit Date/Time: 08/12/24 16:21 Attending Provider: Bandar Farley Admit Provider: Elyse Winston Primary Care Provider: Tramaine Peterson Other Providers: Tramaine Peterson; Marquis Mcnamara; Malena Guzmán; Hallie Hernandez; [place],[facility]; [facility] Hospital Stay Data Consultations 08/12/24 14:46 ED Decision to Admit Stat 08/12/24 16:22 Consult Cardiology Stat Diagnostic Imagining Performed 08/14/24 22:52 US venous duplex leg [US venous doppler LE BI] Routine 08/16/24 13:00 CT angio chest PE protocol Urgent Pending Results Patient Have Any Pending Studies at Discharge: No Discharge Instructions Given to Patient (Per Discharging Provider) Follow up with heart care clinic in 1-2 weeks Total Time Total Time Spent Total Time Spent (In Minutes): 50 Coding Level of Care Code 06511 INP/OBS DISCH >30 MIN Diagnoses Acute on chronic systolic heart failure I50.23 Acute hypoxemic respiratory failure J96.01 Pneumonia J18.9 Complicated urinary tract infection N39.0 CAD (coronary artery disease) I25.10 Sleep apnea G47.30 Presence of combination internal cardiac defibrillator (ICD) and pacemaker Z95.810 Paroxysmal atrial fibrillation I48.0 History of urinary self-catheterization Z78.9 History of venous thromboembolism Z86.718 Parkinsonism G20.C
[2024-08-23 10:09] VITALS: PULSE 88
--- NOTE | 2024-08-24 07:42 | Coding Query ---
CODING QUERY To promote full compliance with coding requirements relating to patient care, provider participation is requested in all cases of building components designer uncertainty. Please assist us with the question(s) below: In the record, it states that the patient has a catheter associated UTI. Please clarify below the cause of the UTI if applicable. Thank you. ( x ) The chronic ray was the cause of the UTI. ( ) Other urinary cath/device was the cause of the UTI. ( ) Self-catheterization was the cause of the UTI. ( ) Other (Specify): Principal Diagnosis: "that condition established after study, to be chiefly responsible for occasioning the admission of the patient to the hospital for care." Co-Existing Principal Diagnosis: "when two or more diagnoses equally meet the criteria for principal diagnosis as determined by the circumstances of admission, diagnostic work up, and/or therapy provided, and the Alphabetic Index, Tabular List, or another coding guideline does not provide sequencing direction, any one of the diagnoses may be sequenced first." "When the physician has documented what appears to be a current diagnosis in the body of the record, but has not included the diagnosis in the final diagnostic statement, the physician should be asked whether the diagnosis should be added." (Source Coding Clinic 2 QTR90. p3-4) TRENT
== END 2024-08-23 11:26 | disposition home or self-care (01) | DRG 291 ==
LOC: ED 11:27 → 2W 16:21 → SUATTDRO 16:21 → 2W 20:29
DX: R07.9 Chest pain, unspecified; K59.03 Drug induced constipation; E78.5 Hyperlipidemia, unspecified; S91.302A Unspecified open wound, left foot, initial encounter; I25.5 Ischemic cardiomyopathy; I25.2 Old myocardial infarction; Z91.030 Bee allergy status; Z88.8 Allergy status to other drugs, medicaments and biological substances; G62.9 Polyneuropathy, unspecified; N40.0 Benign prostatic hyperplasia without lower urinary tract symptoms; Z87.891 Personal history of nicotine dependence; J43.2 Centrilobular emphysema; Z88.1 Allergy status to other antibiotic agents; Y73.2 Prosthetic and other implants, materials and accessory gastroenterology and urology devices associated with adverse incidents; B96.20 Unspecified Escherichia coli [E. coli] as the cause of diseases classified elsewhere; I49.5 Sick sinus syndrome; Z86.711 Personal history of pulmonary embolism; Z79.01 Long term (current) use of anticoagulants; I25.10 Atherosclerotic heart disease of native coronary artery without angina pectoris; J96.21 Acute and chronic respiratory failure with hypoxia; Z16.12 Extended spectrum beta lactamase (ESBL) resistance; Z88.0 Allergy status to penicillin; G20.A1 Parkinson's disease without dyskinesia, without mention of fluctuations; I11.0 Hypertensive heart disease with heart failure; Z99.89 Dependence on other enabling machines and devices; X58.XXXA Exposure to other specified factors, initial encounter; K21.9 Gastro-esophageal reflux disease without esophagitis; Z79.899 Other long term (current) drug therapy; G47.33 Obstructive sleep apnea (adult) (pediatric); I82.551 Chronic embolism and thrombosis of right peroneal vein; J18.9 Pneumonia, unspecified organism; L03.116 Cellulitis of left lower limb; Z95.810 Presence of automatic (implantable) cardiac defibrillator; Z95.5 Presence of coronary angioplasty implant and graft; F32.A Depression, unspecified; Z79.82 Long term (current) use of aspirin; G89.4 Chronic pain syndrome; B95.62 Methicillin resistant Staphylococcus aureus infection as the cause of diseases classified elsewhere; Z88.5 Allergy status to narcotic agent; I48.0 Paroxysmal atrial fibrillation; I50.23 Acute on chronic systolic (congestive) heart failure; Z88.4 Allergy status to anesthetic agent; T83.511A Infection and inflammatory reaction due to indwelling urethral catheter, initial encounter; J45.909 Unspecified asthma, uncomplicated; T40.605A Adverse effect of unspecified narcotics, initial encounter

== ENCOUNTER 2024-09-04 06:10 | Inpatient (IN) ==
[2024-09-04] MEDS: ALBUT/IPRATROP 3MG/0.5MG NEB 3 ML VIAL ONE (06:29)
[2024-09-04 07:26] LABS: Base Excess VBG -2.7 mEq/L; HCO3 VBG 23 mmol/L; Oxygen Saturation VBG 91.6 %; PCO2 VBG 40 mmHg (38-50); PO2 VBG 62 mmHg; pH VBG 7.36 (7.36-7.41)
[2024-09-04 07:28] LABS: Basophils # (auto) 0.05 K/uL (0.00-0.20); Basophils % (auto) 0.4 %; Eosinophils # (auto) 0.65 K/uL (0.00-0.50); Eosinophils % (auto) 5.6 %; Hemoglobin 11.4 g/dl (14.0-18.0); Immature Granulocytes # (auto) 0.06 K/uL (0.01-0.20); Immature Granulocytes % (auto) 0.5 %; Lymphocytes # (auto) 2.55 K/uL (1.20-3.40); Lymphocytes % (auto) 22.1 %; Mean Corpuscular Hemoglobin 27.4 pg (25.0-34.0); Mean Corpuscular Hgb Conc 31.7 g/dL (32.0-36.0); Mean Corpuscular Volume 86.5 fL (80.0-100.0); Mean Platelet Volume 10.2 fL (9.4-12.4); Monocytes # (auto) 0.63 K/uL (0.11-0.59); Monocytes % (auto) 5.5 %; Neutrophils # (auto) 7.58 K/uL (1.40-6.50); Neutrophils % (auto) 65.9 %; Platelet Count 313 K/uL (130-400); RDW Coefficient of Variation 15.6 % (11.5-14.5); RDW Standard Deviation 48.6 fL (36.4-46.3); Red Blood Count 4.16 M/uL (4.70-6.10); White Blood Count 11.52 K/ul (4.8-10.8)
--- NOTE | 2024-09-04 07:29 | XRay Report ---
EXAM: XR chest 1V not portable CLINICAL HISTORY: Chest pain, nonspecific TECHNIQUE: X-ray image of the chest is obtained in PA projection. COMPARISON: 08/12/2024. FINDINGS: Pulmonary Parenchyma: Bilateral lower zone opacification extending along the lateral chest wall obliterating both costophrenic angles and hemidiaphragm. These findings are likely due to pleural effusion with underlying consolidation/collapse. Bilateral hilar peribronchial cuffing. Bilateral prominent hilar vascular markings. Heart and Mediastinum: Heart size is enlarged. Multiple leads Cardiac pacemaker device seen on left side. Bony Thorax: Bony thorax appears intact without fractures or deformities. Soft Tissues: Soft tissues overlying the chest wall are unremarkable. ECG electrodes are seen overlying the chest. IMPRESSION: 1. No interval changes since the last study. 2. Evidence of bilateral pleural effusion with underlying collapse/consolidation, pulmonary edema with congestive heart failure to be considered, underlying infection can't be ruled out, clinical and laboratory correlation recommended. 3. Cardiac pacemaker in place. Electronically signed by Kenrick Ramirez 09-04-2024 07:29 AM
--- NOTE | 2024-09-04 07:41 | Emergency Department Note ---
Impression & Plan COPD (chronic obstructive pulmonary disease), Acute exacerbation of CHF (congestive heart failure), Acute hypoxemic respiratory failure ED Provider Note NAME: ZIGGY DEUTSCH AGE: 79 SEX: M : 1945 ARRIVES VIA: Ambulance INFORMANT: Patient, ED PROVIDER(S): Brown Price MD CHIEF COMPLAINT: Shortness of breath HPI: This is 79-year-old male present for shortness of breath. Patient does have a history of COPD and CHF. Patient notes that he was getting out of bed to the bathroom today when he came very short of breath. He has been increasing short of breath since Wednesday. He notes that he has had wheezing. He does report cough during this time. No reported fevers however. He has been using his oxygen throughout the course of the day, usually is only at night. Otherwise symptoms not controlled with at home albuterol treatments. He reports no leg pains. ROS: See above HPI for pertinent positives & negatives. A total of 10 systems reviewed and were otherwise negative. PAST MEDICAL HISTORY: See Below PAST SURGICAL HISTORY: See Below FAMILY HISTORY: See Below SOCIAL HISTORY: See Below HOME MEDICATIONS: See Below ALLERGIES: See Below VITALS: See Below PHYSICAL EXAMINATION: General: Mild to moderate respiratory distress Head: Normocephalic and atraumatic Eyes: Normal inspection, extraocular muscles intact Ear, nose, throat: Normal external exam Neck: Normal range of motion Respiratory: Audibly wheezing in all lung paul Cardiovascular: Regular rate/rhythm, no murmur GI: soft, nontender, no guarding or rebound Extremities: nontender, moves all extremities Neuro: The patient awake and alert, appropriately conversive, no focal deficits, symmetric faces Skin: Warm, dry, and intact MEDICAL DECISION MAKING: This is a 79-year-old male presented with shortness of breath. Will do screening chest x-ray, basic blood work. Patient does have audible wheezes consistent with likely COPD observation. This may be mixed picture with CHF he also some slight crackles. - Chest x-ray reveals pulm vascular congestion and bilateral pleural effusions. - Patient given continuous albuterol treatments, still tachypneic at this time. - Patient IV Lasix for his pulm vascular congestion/CHF - Care discussed with Dr. Moses for admission as patient is currently hypoxic still 80% on 2 L, uptitrated to 3 L Differential diagnosis: COPD, CHF, PE, ACS, pneumonia Independent History obtained from: Diagnostics interpreted by me: ECG: ECG independently interpreted by me with ventricularly paced rhythm at 99, normal QTc, no ST segment elevations consistent with STEMI criteria Cardiac Monitoring: An order was placed for continuous cardiac monitoring. The monitor shows a rate of 90 with sinus rhythm. Critical Care Note: I have personally spent 35 minutes of critical care time in the direct management of this patient. This includes bedside care, interpretation of diagnostic studies, and testing, discussion with consultants, patient, and family members, and other required patient management activities. This 35 minutes is in excess of all separately billable procedures. Past Med/Surg History Problem List (Updated 09/04/24 @ 14:58 by Brown Price MD) COPD (chronic obstructive pulmonary disease) (Acute) Acute hypoxemic respiratory failure (Acute) Pneumonia (Acute) Acute exacerbation of CHF (congestive heart failure) (Acute) Anticoagulant long-term use Stage III pressure ulcer of buttock (Acute) Centrilobular emphysema Bilateral foot-drop Biliary dyskinesia (Chronic) Idiopathic peripheral neuropathy (Acute) Cervical spondylosis without myelopathy (Acute) Cervical radiculopathy (Acute) Complex renal cyst Ulnar neuropathy of both upper extremities Agent orange exposure Balance problem Elevated PSA Atherogenic dyslipidemia Cervicogenic headache Spasticity upper limbs Medical History Complicated urinary tract infection Sepsis History of venous thromboembolism PAT (paroxysmal atrial tachycardia) Cardiomyopathy Paroxysmal atrial fibrillation HFrEF (heart failure with reduced ejection fraction) Parkinsonism Presence of combination internal cardiac defibrillator (ICD) and pacemaker first placed 2010 @ [facility] replaced in 2014 & 2021 @ [facility]--biventricular [employer]. reports last check 11/25/22. History of urinary self-catheterization self caths every other night CAD (coronary artery disease) s/p stent 2010 Sleep apnea bipap BPH loc w urin obs/LUTS Atrial tachycardia CHF (congestive heart failure) Tachycardia Pressure ulcer of right heel, stage 4 Benign essential hypertension Ischemic cardiomyopathy Euvolemic at 11/23/22 cardio appt Elevated INR Near syncope Tachycardia Leg pain Elevated lactic acid level Elevated INR Cellulitis Unstageable pressure ulcer of right heel Unstageable pressure ulcer of left heel Hypoxia Vomiting Acute kidney injury Elevated troponin Acute kidney failure Acute UTI Sepsis Severe sepsis Encounter for pre-operative examination Intrinsic minus hand POWERS (dyspnea on exertion) Preop testing Episode of confusion Right upper quadrant abdominal pain Hand laceration Dog bite Chest pain Cellulitis of left arm Peripheral arterial disease Hypertension Tremor ICD (implantable cardioverter-defibrillator) in place Neuropathy Complex sleep apnea syndrome NYHA class 4 acute on chronic systolic heart failure History of kidney stones Emphysema lung Legally blind Chronic back pain History of DVT of lower extremity 2010 Macular degeneration Hearing deficit Depression Migraine Myocardial Infarction 10/2010--follows with Dr. Abreu Pulmonary embolism 1992 and 2010 after heart attack--follows with Dr. Abreu Asthma inhaler prn Surgical History Presence of biventricular automatic cardioverter/defibrillator (AICD) S/P epidural steroid injection History of foot surgery plantar fasciitis History of open reduction and internal fixation (ORIF) procedure left foot--hardware removed History of prostate biopsy x3--precancerous, just monitoring for now History of prostate surgery 07/2016--[facility] prostate vaproization History of cystoscopy multiple History of colonoscopy with polypectomy History of esophagogastroduodenoscopy (EGD) History of right inguinal hernia repair x3 History of Khari fundoplication History of cholecystectomy History of tooth extraction History of eye surgery right--macular degeneration History of bilateral cataract extraction History of cardiac cath 10/2010 @ [facility]--1 stent placed Family History Son Family history of diabetes mellitus Other Family history non-contributory No family history of adverse response to anesthesia Social History Smoking Status: Never smoker Tobacco Type: Cigarettes Second Hand Exposure: No; Do You Dip or Chew Tobacco: No; Hx Alcohol Use: No Hx Substance Use: No Preferred Language: Icelandic Communication Ability: Effective Visual Impairment: Partially Limited Hearing Ability: Use of Hearing Aid Assistant Credit Manager Required: No Beliefs That Will Affect Care: None marital status: Current Living Situation: Spouse Current Living Situation Comment: with [employer] current occupational status: retired How many Children do You have: 1 How many Children do You have Comment: son , able to assist with care as needed Feels Safe at Home: Yes Safety Concerns: Feels Safe At This Time Diet: low salt and regular Assistive Devices: BiPap, Oxygen - at Night, Scooter/Electric Scooter, Walker and Wheelchair Allergies Allergies Allergy/AdvReac Type Severity Reaction Status Date / Time bee venom protein (honey bee) Allergy Severe SWELLING, Verified 09/01/24 11:16 SOB Penicillins Allergy Severe SWELLING, Verified 09/01/24 11:16 DIFFICULTY BREATHING lidocaine Allergy Mild RASH Verified 09/01/24 11:16 gabapentin Allergy Unknown Pt denies, Verified 09/01/24 11:16 uncertain icosapent ethyl Allergy Unknown On med Verified 09/01/24 11:16 list / [facility] pregabalin Allergy Unknown On med Verified 09/01/24 11:16 list / [facility] cefdinir AdvReac Severe Vomiting Verified 09/01/24 11:16 hydrocodone AdvReac Mild nausea Verified 09/01/24 11:16 oxycodone AdvReac Mild nausea-SLOW Verified 09/01/24 11:16 RELEASE IS OK Home Meds Home Medications Medication Instructions Recorded Confirmed albuterol sulfate 90 mcg/actuation 2 puffs inhalation Q6H PRN 12/01/18 09/04/24 aerosol inhaler Shortness Of Breath Or Wheezing bupropion HCl 100 mg tablet 100 mg PO BID 12/01/18 09/04/24 docusate sodium 100 mg capsule 100 mg PO BID 12/01/18 09/04/24 finasteride 5 mg tablet 5 mg PO QAM 12/01/18 09/04/24 aspirin 81 mg tablet,delayed 81 mg PO QAM 12/21/18 09/04/24 release sennosides 8.6 mg tablet 8.6 mg PO BID 12/21/18 09/04/24 white petrolatum-mineral oil 56.8 1 applic ophthalmic (eye) HS 12/21/18 09/04/24 %-42.5 % eye ointment (Refresh Lacri-Lube) pantoprazole 40 mg tablet,delayed 40 mg PO BID 03/10/21 09/04/24 release tiotropium 2.5 mcg-olodaterol 2.5 2 puff inhalation QAM 12/02/22 09/04/24 mcg/actuation mist for inhalation (Stiolto Respimat) cetirizine 10 mg tablet 10 mg PO QDB 05/17/23 09/04/24 epinephrine 0.3 mg/0.3 mL 0.3 mg IM DIRECTED PRN sEVERE 07/08/23 09/04/24 injection, auto-injector ALLERGIC REACTION vitamins A,C,L-kgvx-bktwuh 4,296 1 cap PO BID 03/27/24 09/04/24 mcg-226 mg-90 mg capsule (PreserVision AREDS) aluminum hydroxide gel 320 mg/5 mL 960 mg PO DAILY PRN Heartburn 06/16/24 09/04/24 oral suspension oxycodone 10 mg tablet,crush 10 mg PO BID 06/16/24 09/04/24 resistant,extended release 12 hr (OxyContin) metoclopramide HCl 5 mg tablet 5 mg BID 07/02/24 09/04/24 acetaminophen 325 mg tablet 650 mg PO Q6H PRN Pain/Fever 08/12/24 09/04/24 (Tylenol) nitroglycerin 0.4 mg sublingual 0.4 mg sublingual DIRECTED PRN 08/12/24 09/04/24 tablet Chest Pain pramipexole 0.125 mg tablet 0.375 mg PO QAM 08/12/24 09/04/24 Previous Rx's Medication Instructions Recorded bumetanide 1 mg tablet 1 mg PO QAM #90 tabs 10/10/23 potassium chloride 20 mEq 20 meq PO BID #200 tabs 10/10/23 tablet,extended release apixaban 5 mg tablet (Eliquis) 5 mg PO BID #180 tabs 11/23/23 ipratropium 0.5 mg-albuterol 3 mg 3 ml NEB Q6R PRN #0 mL 07/31/24 (2.5 mg base)/3 mL nebulization soln polyethylene glycol 3350 17 gram 17 g PO BID #0 ea 07/31/24 oral powder packet (Miralax) carvedilol 3.125 mg tablet 3.125 mg PO BIDM #60 tabs 08/23/24 spironolactone 25 mg tablet 25 mg PO DAILY #30 tabs 08/23/24 Results & Data (ED) Vital Signs Vital Signs - 24 hr 09/04/24 06:17 09/04/24 06:26 09/04/24 06:28 Temperature 36.8 C Temperature Source Oral Pulse Rate 82 99 H Pulse Rate [Left Finger] Pulse Rate from SpO2 Sensor Respiratory Rate 28 H Respiratory Effort / Characteristics Blood Pressure 138/95 Blood Pressure Mean 109 Pulse Oximetry 94 96 Oxygen Delivery Method Oxymask Oxymask Oxygen Flow Rate 0 4 Sepsis Recent Fever Within 48 Hours No Sepsis New/Unexplained Change in Mental Status N/A Sepsis Action Taken by Nursing No Action Required Oxygen Flow Rate - Titration 4 Pulse Oximetry Post Tiitration 99 09/04/24 06:29 09/04/24 06:33 09/04/24 07:06 Temperature Temperature Source Pulse Rate 94 H 99 H Pulse Rate [Left Finger] 98 H Pulse Rate from SpO2 Sensor 96 H 97 H Respiratory Rate 26 H 27 H 33 H Respiratory Effort / Characteristics Spontaneous Labored Short of Breath Blood Pressure Blood Pressure Mean Pulse Oximetry 99 98 99 Oxygen Delivery Method Nasal Cannula Aerosol Mask Aerosol Mask Oxygen Flow Rate 6 8 8 Sepsis Recent Fever Within 48 Hours Sepsis New/Unexplained Change in Mental Status Sepsis Action Taken by Nursing Oxygen Flow Rate - Titration Pulse Oximetry Post Tiitration 09/04/24 07:27 09/04/24 08:00 09/04/24 08:00 Temperature Temperature Source Pulse Rate 96 H 94 H Pulse Rate [Left Finger] Pulse Rate from SpO2 Sensor 96 H 97 H Respiratory Rate 38 H 25 H Respiratory Effort / Characteristics Blood Pressure 137/85 127/90 128/89 Blood Pressure Mean 102 102 93 Pulse Oximetry 97 97 Oxygen Delivery Method Aerosol Mask Oxygen Flow Rate 8 Sepsis Recent Fever Within 48 Hours Sepsis New/Unexplained Change in Mental Status Sepsis Action Taken by Nursing Oxygen Flow Rate - Titration Pulse Oximetry Post Tiitration 09/04/24 08:00 09/04/24 08:30 09/04/24 08:43 Temperature Temperature Source Pulse Rate 89 Pulse Rate [Left Finger] Pulse Rate from SpO2 Sensor Respiratory Rate 22 Respiratory Effort / Characteristics Blood Pressure 128/89 115/88 Blood Pressure Mean 93 97 Pulse Oximetry 91 95 87 L Oxygen Delivery Method Nasal Cannula Nasal Cannula Room Air Oxygen Flow Rate 2 Sepsis Recent Fever Within 48 Hours Sepsis New/Unexplained Change in Mental Status Sepsis Action Taken by Nursing Oxygen Flow Rate - Titration Pulse Oximetry Post Tiitration Laboratory Data 09/04/24 07:09 09/04/24 07:09 Lab Results 09/04/24 09/04/24 Range/Units 07:09 07:17 WBC 11.52 H (4.8-10.8) K/ul RBC 4.16 L (4.70-6.10) M/uL Hgb 11.4 L (14.0-18.0) g/dl Hct 36.0 L (42.0-52.0) % MCV 86.5 (80.0-100.0) fL MCH 27.4 (25.0-34.0) pg MCHC 31.7 L (32.0-36.0) g/dL RDW Std Deviation 48.6 H (36.4-46.3) fL RDW Coeff of Jerry 15.6 H (11.5-14.5) % Plt Count 313 (130-400) K/uL MPV 10.2 (9.4-12.4) fL Immature Gran % (Auto) 0.5 % Neut % (Auto) 65.9 % Lymph % (Auto) 22.1 % [place] % (Auto) 5.5 % Eos % (Auto) 5.6 % Baso % (Auto) 0.4 % Neut # (Auto) 7.58 H (1.40-6.50) K/uL Lymph # (Auto) 2.55 (1.20-3.40) K/uL [place] # (Auto) 0.63 H (0.11-0.59) K/uL Eos # (Auto) 0.65 H (0.00-0.50) K/uL Baso # (Auto) 0.05 (0.00-0.20) K/uL Immature Gran # (Auto) 0.06 (0.01-0.20) K/uL PT 12.6 H (9.0-12.0) Seconds INR 1.2 H (0.9-1.1) APTT 27 (21-31) Seconds PTT Ratio 1.0 VBG pH 7.36 (7.36-7.41) VBG pCO2 40 (38-50) mmHg VBG pO2 62 mmHg VBG HCO3 23 mmol/L VBG O2 Saturation 91.6 % VBG Base Excess -2.7 mEq/L Sodium 138 (136-145) mmol/L Potassium 4.2 (3.5-5.1) mmol/L Chloride 106 (98-107) mmol/L Carbon Dioxide 25 (21-32) mmol/L Anion Gap 7 (3-11) BUN 22 (6-23) mg/dl Creatinine 0.87 (0.6-1.4) mg/dl Est Cr Clr Drug Dosing 84.8 ml/min eGFR 87.77 BUN/Creatinine Ratio 25.3 H (10-20) Glucose 135 H (70-99(Fasting)) mg/dl Calcium 9.4 (8.6-10.3) mg/dl Total Bilirubin 0.4 (0.2-1.0) mg/dl AST 14 (13-39) U/L ALT 16 (7-52) U/L Alkaline Phosphatase 55 (34-104) U/L Troponin I High Sens 12.1 (0-20) pg/ml B-Natriuretic Peptide 800 H (0-100) pg/ml Total Protein 7.5 (6.0-8.3) gm/dl Albumin 3.7 (3.4-5.0) gm/dl Globulin 3.8 (2.5-4.0) gm/dl Albumin/Globulin Ratio 1.0 (0.9-2) Administered Medications Albuterol (Albut/Ipratrop 3mg/0.5mg Neb 3 Ml Vial) 3 ml NEB Q6R [facility]; Protocol Stop: 10/04/24 12:59 Last Admin: 09/04/24 13:19 Dose: 3 ml Documented By: ANGELICA Apixaban (Apixaban 5 Mg Tablet) 5 mg PO BID [facility] Stop: 10/04/24 10:59 Last Admin: 09/04/24 11:43 Dose: 5 mg Documented By: RLB Aspirin (Aspirin 81 Mg Ectab) 81 mg PO QAM [facility] Stop: 10/04/24 10:59 Last Admin: 09/04/24 11:44 Dose: 81 mg Documented By: RLB Bupropion HCl (Bupropion Hcl 100 Mg Tablet) 100 mg PO BID [facility] Stop: 10/04/24 10:59 Last Admin: 09/04/24 11:42 Dose: 100 mg Documented By: RLB Carvedilol (Carvedilol 3.125 Mg Tab) 3.125 mg PO BIDM [facility] Stop: 10/04/24 10:59 Last Admin: 09/04/24 11:43 Dose: 3.125 mg Documented By: RLB Cetirizine HCl (Cetirizine Hcl 10 Mg Tablet) 10 mg PO QDB [facility] Stop: 10/04/24 10:59 Last Admin: 09/04/24 11:43 Dose: 10 mg Documented By: RLB Docusate Sodium (Docusate Sodium 100 Mg Cap) 100 mg PO BID [facility] Stop: 10/04/24 10:59 Last Admin: 09/04/24 11:56 Dose: 100 mg Documented By: RLB Finasteride (Finasteride 5 Mg Tab) 5 mg PO QAM [facility] Stop: 10/04/24 10:59 Last Admin: 09/04/24 11:42 Dose: 5 mg Documented By: RLB Ertapenem (Invanz 1000mg) 1,000 mg in 10 mls @ 2 mls/min IV Q24H [facility] Stop: 09/11/24 10:59 Last Admin: 09/04/24 11:42 Dose: 2 mls/min Documented By: RLHilary Oxycodone HCl (Oxycodone Hcl 10 Mg Tabcr (Oxycontin)) 10 mg PO BID [facility] Stop: 09/18/24 10:59 Last Admin: 09/04/24 11:56 Dose: 10 mg Documented By: RLHilary Pantoprazole Sodium (Pantoprazole 40 Mg Tab) 40 mg PO BID [facility] Stop: 10/04/24 10:59 Last Admin: 09/04/24 11:43 Dose: 40 mg Documented By: RLHilary Polyethylene Glycol (Polyethylene (Miralax) 17 Gm Pack) 17 gm PO BID [facility] Stop: 10/04/24 10:59 Last Admin: 09/04/24 11:56 Dose: 17 gm Documented By: RLHilary Potassium Chloride (Potassium Chloride Crtab 20 Meq Tabcr) 20 meq PO BID [facility] Stop: 10/04/24 10:59 Last Admin: 09/04/24 11:57 Dose: 20 meq Documented By: RLB Pramipexole Dihydrochloride (Pramipexole Dihydrochlo 0.25 Mg Tab) 0.375 mg PO QAM [facility] Stop: 10/04/24 10:59 Last Admin: 09/04/24 11:42 Dose: 0.375 mg Documented By: RLB Sennosides (Senna 8.6 Mg Tab) 8.6 mg PO BID [facility] Stop: 10/04/24 10:59 Last Admin: 09/04/24 11:56 Dose: 8.6 mg Documented By: RLB Spironolactone (Spironolactone 25 Mg Tab) 25 mg PO DAILY [facility] Stop: 10/04/24 10:59 Last Admin: 09/04/24 11:43 Dose: 25 mg Documented By: BRIELLE Umeclidinium/Vilanterol (Umeclidinium/Vilanterol 62.5/25mcg 7 Puffs/Inhaler) 1 puffs INH QAM [facility] Stop: 10/04/24 10:59 Last Admin: 09/04/24 11:44 Dose: 1 puffs Documented By: RLHilary Discontinued Medications Albuterol (Albut/Ipratrop 3mg/0.5mg Neb 3 Ml Vial) Confirm Administered Dose 9 ml .ROUTE .STK-MED ONE Stop: 09/04/24 06:23 Last Admin: 09/04/24 06:29 Dose: 9 ml Documented By: BRYNN Furosemide (Furosemide 40 Mg/4 Ml Vial) 40 mg IV ONE ONE Stop: 09/04/24 08:49 Last Admin: 09/04/24 09:12 Dose: 40 mg Documented By: TIFFANIE Methylprednisolone (Methylprednisolone 125 Mg/2 Ml Vial) 125 mg IV NOW STA Stop: 09/04/24 07:40 Last Admin: 09/04/24 08:04 Dose: 125 mg Documented By: TIFFANIE Imaging Data Radiologist's Impression: Chest X-Ray 09/04/24 06:15 EXAM: XR chest 1V not portable CLINICAL HISTORY: Chest pain, nonspecific TECHNIQUE: X-ray image of the chest is obtained in PA projection. COMPARISON: 08/12/2024. FINDINGS: Pulmonary Parenchyma: Bilateral lower zone opacification extending along the lateral chest wall obliterating both costophrenic angles and hemidiaphragm. These findings are likely due to pleural effusion with underlying consolidation/collapse. Bilateral hilar peribronchial cuffing. Bilateral prominent hilar vascular markings. Heart and Mediastinum: Heart size is enlarged. Multiple leads Cardiac pacemaker device seen on left side. Bony Thorax: Bony thorax appears intact without fractures or deformities. Soft Tissues: Soft tissues overlying the chest wall are unremarkable. ECG electrodes are seen overlying the chest. IMPRESSION: 1. No interval changes since the last study. 2. Evidence of bilateral pleural effusion with underlying collapse/consolidation, pulmonary edema with congestive heart failure to be considered, underlying infection can't be ruled out, clinical and laboratory correlation recommended. 3. Cardiac pacemaker in place. Electronically signed by Kenrick Ramirez 09-04-2024 07:29 AM Discharge Plan Visit Data Chief Complaint: Shortness of Breath/Dyspnea Stated Complaint: SHORTNESS OF BREATH ED Provider: Brown Price Discharge Problem: COPD (chronic obstructive pulmonary disease), Acute exacerbation of CHF (congestive heart failure), Acute hypoxemic respiratory failure Patient Disposition: Admitted As Inpatient Condition: Critical Discharge Instructions Interventions: ED Discharge Assessment Last Done: 09/04/24 10:38 Discharge Problem: COPD (chronic obstructive pulmonary disease) Qualifiers: COPD type: COPD with acute exacerbation Qualified Code(s): J44.1 - Chronic obstructive pulmonary disease with (acute) exacerbation Acute exacerbation of CHF (congestive heart failure) Qualifiers: Heart failure type: unspecified Qualified Code(s): I50.9 - Heart failure, unspecified
[2024-09-04 07:50] LABS: Albumin Level 3.7 gm/dl (3.4-5.0); BUN Creatinine Ratio 25.3 (10-20); Bilirubin,Total 0.4 mg/dl (0.2-1.0); Calcium 9.4 mg/dl (8.6-10.3); Creatinine Clr Calc Pharmacy 84.8 ml/min; Globulin 3.8 gm/dl (2.5-4.0); Potassium 4.2 mmol/L (3.5-5.1); Total Protein 7.5 gm/dl (6.0-8.3)
[2024-09-04 07:57] LABS: Troponin I High Sensitivity 12.1 pg/ml (0-20)
[2024-09-04 08:02] LABS: INR 1.2 (0.9-1.1); Partial Thromboplastin Time 27 Seconds (21-31); Prothrombin Time 12.6 Seconds (9.0-12.0)
[2024-09-04] MEDS: methylPREDNISolone 125 MG/2 ML VIAL IV STA (08:04)
--- NOTE | 2024-09-04 08:51 | History & Physical Report ---
Date of Service September 04, 2024 Assessment & Plan (1) HFrEF (heart failure with reduced ejection fraction): (2) Acute hypoxemic respiratory failure: (3) Paroxysmal atrial fibrillation: (4) CAD (coronary artery disease): Plan This patient is a 79-year-old male with a history of HFrEF, biventricular ICD, CAD s/p stent RCA 2010,, PAF on Eliquis, COPD/asthma, chronic hypoxic respiratory failure/ROSE on supplemental O2 and BiPAP, neuropathy, spinal stenosis, ambulatory dysfunction, VTE, BPH, intermittent self-catheterization, parkinsonism, depression, chronic pain syndrome, GERD, who presents with acute on chronic HFrEF and COPD exacerbation with acute on chronic hypoxemic respirato ry failure. #Acute on chronic hypoxemic respiratory failure/acute on chronic HFrEF/acute exacerbation of COPD/asthma-BNP elevated, CXR consistent with heart failure. However, his weight is not up from previous. He also has some component of wheezing and COPD exacerbation. His Entresto was recently discontinued and his carvedilol was recently lowered in dose due to hypotension. Pulse ox 87% on room air. Typically he uses 3L O2 at night with BiPAP but none during the day. - Admit to PCU for telemetry monitoring - Start Lasix 40 Mg IV twice daily, continue spironolactone - Continue carvedilol at current dose which was recently lowered to 3.125 Mg p.o. twice daily and increase if has tachycardia and if BP can tolerate - Consult cardiology for further recommendations - Continue Solu-Medrol 60 mg IV once daily, scheduled DuoNebs every 6 hours, and maintenance inhaler - Continue supplemental O2 to keep pulse ox greater than 90% #CAD s/p stent RCA 2010/PAF on Eliquis-he had some chest pressure at rest on 2 nights the week prior to admission but none currently and troponin negative, no ischemic changes on ECG. Nuclear stress test on 08/31/2024 showed large in size, moderate to severe intensity fixed MPI defect involving entire apex, inferior, inferior lateral, distal anterior, and inferior septal myocardium with small amount of reversibility involving mid anterior and anterior septum-overall low risk of ischemia. - Consult cardiology for any further input - Continue aspirin, Eliquis, carvedilol - He is not on a statin-unclear reason #BPH/intermittent self-catheterization/history of recurrent UTI-with ongoing dysuria. Self catheterizes every other night for history of urethral stricture - Continue self-catheterization every other night - Treat with ertapenem for ESBL E. coli in urine culture from 09/01 x 7 days- through 09/10 - Continue finasteride #Chronic pain syndrome/neuropathy/ambulatory dysfunction/chronic pain syndrome- no acute issues. He can walk short distances with a walker but uses a scooter or wheelchair for mobility - Continue home OxyContin, pramipexole - Consult PT/OT #Bilateral pressure ulcers on heels-stage I on left and stage II on right with scant drainage, no definite signs of infection - Receiving ertapenem for UTI but no real need for treatment for infection of heel ulcers - Consult wound care, offload pressure #GERD/gastroparesis-no acute issues - Continue Protonix, Reglan DVT prophylaxis-has a history of VTE. Continue Eliquis, add SCDs Disposition-admit to PCU, discussed care with at the bedside on admission History of Present Illness Chief Complaint: SOB Primary Care Provider: Tramaine Peterson MD This patient is a 79-year-old male with a history of HFrEF, biventricular ICD, CAD s/p stent RCA 2010,, PAF on Eliquis, COPD/asthma, chronic hypoxic respirator y failure/ROSE on supplemental O2 and BiPAP, neuropathy, spinal stenosis, ambulatory dysfunction, VTE, BPH, intermittent self-catheterization, parkinsonism, depression, chronic pain syndrome, GERD, who presents to the ER with worsening dyspnea on exertion x 3 to 4 days. He was discharged from the hospital on 08/23/2024 after being treated for pneumonia and heart failure. Since then, he reports his weight has not gone up and he does not feel any abdominal bloating but has had worsening shortness of breath. He did have some pressure in the chest at rest for 2 nights in a row, 4 to 5 days prior to admission that went away on its own. When he got out of bed to go to the bathroom this morning and felt very winded, he placed his 's supplemental O2 on 3 L and did feel a bit better. On presentation in the ER, his pulse ox was 87% on room air, his BNP was elevated, his chest x-ray was consistent with heart failure. He was moving air poorly, tachypneic, and wheezing. He was given DuoNebs and Solu-Medrol, as well as Lasix and had some relief. He will be admitted for acute on chronic HFrEF and COPD exacerbation with acute on chronic hypoxemic respiratory failure. Allergies Allergy/AdvReac Type Severity Reaction Status Date / Time bee venom protein (honey bee) Allergy Severe SWELLING, Verified 09/01/24 11:16 SOB Penicillins Allergy Severe SWELLING, Verified 09/01/24 11:16 DIFFICULTY BREATHING lidocaine Allergy Mild RASH Verified 09/01/24 11:16 gabapentin Allergy Unknown Pt denies, Verified 09/01/24 11:16 uncertain icosapent ethyl Allergy Unknown On med Verified 09/01/24 11:16 list w/ [facility] pregabalin Allergy Unknown On med Verified 09/01/24 11:16 list / [facility] cefdinir AdvReac Severe Vomiting Verified 09/01/24 11:16 hydrocodone AdvReac Mild nausea Verified 09/01/24 11:16 oxycodone AdvReac Mild nausea-SLOW Verified 09/01/24 11:16 RELEASE IS OK Home Medications Medication Instructions Recorded Confirmed Type albuterol sulfate 90 mcg/actuation 2 puffs inhalation Q6H PRN 12/01/18 09/04/24 History aerosol inhaler Shortness Of Breath Or Wheezing bupropion HCl 100 mg tablet 100 mg PO BID 12/01/18 09/04/24 History docusate sodium 100 mg capsule 100 mg PO BID 12/01/18 09/04/24 History finasteride 5 mg tablet 5 mg PO QAM 12/01/18 09/04/24 History aspirin 81 mg tablet,delayed 81 mg PO QAM 12/21/18 09/04/24 History release sennosides 8.6 mg tablet 8.6 mg PO BID 12/21/18 09/04/24 History white petrolatum-mineral oil 56.8 1 applic ophthalmic (eye) HS 12/21/18 09/04/24 History %-42.5 % eye ointment (Refresh Lacri-Lube) pantoprazole 40 mg tablet,delayed 40 mg PO BID 03/10/21 09/04/24 History release tiotropium 2.5 mcg-olodaterol 2.5 2 puff inhalation QAM 12/02/22 09/04/24 History mcg/actuation mist for inhalation (Stiolto Respimat) cetirizine 10 mg tablet 10 mg PO QDB 05/17/23 09/04/24 History epinephrine 0.3 mg/0.3 mL 0.3 mg IM DIRECTED PRN sEVERE 07/08/23 09/04/24 History injection, auto-injector ALLERGIC REACTION bumetanide 1 mg tablet 1 mg PO QAM #90 tabs 10/10/23 09/04/24 Rx potassium chloride 20 mEq 20 meq PO BID #200 tabs 10/10/23 09/04/24 Rx tablet,extended release apixaban 5 mg tablet (Eliquis) 5 mg PO BID #180 tabs 11/23/23 09/04/24 Rx vitamins A,C,Y-ymed-lrmoxt 4,296 1 cap PO BID 03/27/24 09/04/24 History mcg-226 mg-90 mg capsule (PreserVision AREDS) aluminum hydroxide gel 320 mg/5 mL 960 mg PO DAILY PRN Heartburn 06/16/24 09/04/24 History oral suspension oxycodone 10 mg tablet,crush 10 mg PO BID 06/16/24 09/04/24 History resistant,extended release 12 hr (OxyContin) metoclopramide HCl 5 mg tablet 5 mg BID 07/02/24 09/04/24 History ipratropium 0.5 mg-albuterol 3 mg 3 ml NEB Q6R PRN #0 mL 07/31/24 09/04/24 Rx (2.5 mg base)/3 mL nebulization soln polyethylene glycol 3350 17 gram 17 g PO BID #0 ea 07/31/24 09/04/24 Rx oral powder packet (Miralax) acetaminophen 325 mg tablet 650 mg PO Q6H PRN Pain/Fever 08/12/24 09/04/24 History (Tylenol) nitroglycerin 0.4 mg sublingual 0.4 mg sublingual DIRECTED PRN 08/12/24 09/04/24 History tablet Chest Pain pramipexole 0.125 mg tablet 0.375 mg PO QAM 08/12/24 09/04/24 History carvedilol 3.125 mg tablet 3.125 mg PO BIDM #60 tabs 08/23/24 09/04/24 Rx spironolactone 25 mg tablet 25 mg PO DAILY #30 tabs 08/23/24 09/04/24 Rx Past Med/Surg History Problem List Acute hypoxemic respiratory failure (Acute) Pneumonia (Acute) Acute exacerbation of CHF (congestive heart failure) (Acute) Anticoagulant long-term use Stage III pressure ulcer of buttock (Acute) Centrilobular emphysema Bilateral foot-drop Biliary dyskinesia (Chronic) Idiopathic peripheral neuropathy (Acute) Cervical spondylosis without myelopathy (Acute) Cervical radiculopathy (Acute) Complex renal cyst Ulnar neuropathy of both upper extremities Agent orange exposure Balance problem Elevated PSA Atherogenic dyslipidemia Cervicogenic headache Spasticity upper limbs Medical History Complicated urinary tract infection Sepsis History of venous thromboembolism PAT (paroxysmal atrial tachycardia) Cardiomyopathy Paroxysmal atrial fibrillation HFrEF (heart failure with reduced ejection fraction) Parkinsonism Presence of combination internal cardiac defibrillator (ICD) and pacemaker first placed 2010 @ [facility] replaced in 2014 & 2021 @ [facility]--biventricular [employer]. reports last check 11/25/22. History of urinary self-catheterization self caths every other night CAD (coronary artery disease) s/p stent 2010 Sleep apnea bipap BPH loc w urin obs/LUTS Atrial tachycardia CHF (congestive heart failure) Tachycardia Pressure ulcer of right heel, stage 4 Benign essential hypertension Ischemic cardiomyopathy Euvolemic at 11/23/22 cardio appt Elevated INR Near syncope Tachycardia Leg pain Elevated lactic acid level Elevated INR Cellulitis Unstageable pressure ulcer of right heel Unstageable pressure ulcer of left heel Hypoxia Vomiting Acute kidney injury Elevated troponin Acute kidney failure Acute UTI Sepsis Severe sepsis Encounter for pre-operative examination Intrinsic minus hand POWERS (dyspnea on exertion) Preop testing Episode of confusion Right upper quadrant abdominal pain Hand laceration Dog bite Chest pain Cellulitis of left arm Peripheral arterial disease Hypertension Tremor ICD (implantable cardioverter-defibrillator) in place Neuropathy Complex sleep apnea syndrome NYHA class 4 acute on chronic systolic heart failure History of kidney stones Emphysema lung Legally blind Chronic back pain History of DVT of lower extremity 2010 Macular degeneration Hearing deficit Depression Migraine Myocardial Infarction 10/2010--follows with Dr. Abreu Pulmonary embolism 1992 and 2010 after heart attack--follows with Dr. Abreu Asthma inhaler prn Surgical History Presence of biventricular automatic cardioverter/defibrillator (AICD) S/P epidural steroid injection History of foot surgery plantar fasciitis History of open reduction and internal fixation (ORIF) procedure left foot--hardware removed History of prostate biopsy x3--precancerous, just monitoring for now History of prostate surgery 07/2016--[facility] prostate vaproization History of cystoscopy multiple History of colonoscopy with polypectomy History of esophagogastroduodenoscopy (EGD) History of right inguinal hernia repair x3 History of Khari fundoplication History of cholecystectomy History of tooth extraction History of eye surgery right--macular degeneration History of bilateral cataract extraction History of cardiac cath 10/2010 @ [facility]--1 stent placed Family History Son Family history of diabetes mellitus Other Family history non-contributory No family history of adverse response to anesthesia Social History Smoking Status: Never smoker Tobacco Type: Cigarettes Second Hand Exposure: No; Do You Dip or Chew Tobacco: No; Hx Alcohol Use: No Hx Substance Use: No Preferred Language: Latvian Communication Ability: Effective Visual Impairment: Partially Limited Hearing Ability: Use of Hearing Aid Pipe Chipper Required: No Beliefs That Will Affect Care: None marital status: Current Living Situation: Spouse Current Living Situation Comment: with [place] current occupational status: retired How many Children do You have: 1 How many Children do You have Comment: son , able to assist with care as needed Feels Safe at Home: Yes Diet: low salt and regular Assistive Devices: BiPap, Oxygen - at Night, Scooter/Electric Scooter, Walker and Wheelchair Review of Systems Review of Systems: All systems reviewed & are unremarkable except as noted in HPI & below Had some chills the day before admission. Is coughing up green mucus which is normal for him. No abdominal pain or distention, no bowel issues, but is having dysuria for the last week and had a urine sample collected by the slab polisher 3 days ago. Physical Exam Constitutional: WD/WN, vitals as above Eyes: PERRL, conjunctivae normal, anicteric sclerae Neck: trachea midline, no thyromegaly Respiratory: + tachypneic (Mild with minimal exertion ) Auscultation: + diminished lung sounds (Bibasilar) and + crackles (Left base); no rhonchi and no wheezes Cardiovascular: Rate/Rhythm: regular rate and regular rhythm Heart Sounds: no murmur Extremities: + edema (Trace pitting edema of the legs to the knees bilaterally) Chest (Breasts): Chest: + pacemaker (Left anterior chest wall) Gastrointestinal (Abdomen): normal bowel sounds, soft, nontender, no hepatosplenomegaly Musculoskeletal: Extremities: extremities normal to inspection; no cyanosis and no clubbing Skin: no rashes, warm and dry + ulcer (Right stage 2 pressure ulcer on heel, left stage I pressure ulcer heel) No surrounding erythema of heel ulcers. Scant yellow drainage right heel Neurologic: moves all extremities and awake; no focal motor deficits Psychiatric: A+Ox3, euthymic affect Results & Data Results & Data Vital Signs (Past 12 Hours) Vital Signs Temp Pulse Pulse Resp BP Pulse Ox O2 Del Method 09/04/24 08:43 87 L Room Air 09/04/24 08:30 89 22 115/88 95 Nasal Cannula 09/04/24 08:00 128/89 91 Nasal Cannula 09/04/24 08:00 128/89 09/04/24 08:00 94 H 25 H 127/90 97 09/04/24 07:27 96 H 38 H 137/85 97 Aerosol Mask 09/04/24 07:06 99 H 33 H 99 Aerosol Mask 09/04/24 06:33 94 H 27 H 98 Aerosol Mask 09/04/24 06:29 98 H 26 H 99 Nasal Cannula 09/04/24 06:28 36.8 C 99 H 28 H 138/95 96 Oxymask 09/04/24 06:26 94 Oxymask 09/04/24 06:17 82 O2 Flow Rate 09/04/24 08:43 09/04/24 08:30 2 09/04/24 08:00 09/04/24 08:00 09/04/24 08:00 09/04/24 07:27 8 09/04/24 07:06 8 09/04/24 06:33 8 09/04/24 06:29 6 09/04/24 06:28 4 09/04/24 06:26 0 09/04/24 06:17 Laboratory Results CBC, PT/PTT/INR, VBG, BMP, LFTs, troponin, BNP reviewed Diagnostic Findings Chest x-ray image personally reviewed by me and agree with the following report: Chest X-Ray 09/04/24 06:15 EXAM: XR chest 1V not portable CLINICAL HISTORY: Chest pain, nonspecific TECHNIQUE: X-ray image of the chest is obtained in PA projection. COMPARISON: 08/12/2024. FINDINGS: Pulmonary Parenchyma: Bilateral lower zone opacification extending along the lateral chest wall obliterating both costophrenic angles and hemidiaphragm. These findings are likely due to pleural effusion with underlying consolidation/collapse. Bilateral hilar peribronchial cuffing. Bilateral prominent hilar vascular markings. Heart and Mediastinum: Heart size is enlarged. Multiple leads Cardiac pacemaker device seen on left side. Bony Thorax: Bony thorax appears intact without fractures or deformities. Soft Tissues: Soft tissues overlying the chest wall are unremarkable. ECG electrodes are seen overlying the chest. IMPRESSION: 1. No interval changes since the last study. 2. Evidence of bilateral pleural effusion with underlying collapse/consolidation, pulmonary edema with congestive heart failure to be considered, underlying infection can't be ruled out, clinical and laboratory correlation recommended. 3. Cardiac pacemaker in place. Electronically signed by Kenrick Ramirez 09-04-2024 07:29 AM ECG Additional Comments: ECG with V paced rhythm, rate 99, occasional AV dual paced complexes Code Status & VTE Plan Code Status Full code VTE Prophylaxis Plan VTE Prophylaxis will be ordered: Yes PG Care Time/CCT Total # of Minutes Spent Total Time Spent with Patient: Total time spent is greater than 50% in coordination of care (as documented) at patient's floor/unit and/or counseling patient: Coding Level of Care Code 50169 INT INP/OBS CARE 3/75MIN Diagnoses HFrEF (heart failure with reduced ejection fraction) I50.20 Acute hypoxemic respiratory failure J96.01 Paroxysmal atrial fibrillation I48.0 CAD (coronary artery disease) I25.10
[2024-09-04] MEDS: FUROSEMIDE 40 MG/4 ML VIAL IV ONE (09:12)
[2024-09-04] MEDS ORDERED: NITROGLYCERIN SL 0.4 MG/TAB TAB SL PRN (10:37)
[2024-09-04] MEDS ORDERED: ACETAMINOPHEN 325 MG TAB PO PRN (10:37)
[2024-09-04] MEDS ORDERED: EPINEPHrine INJ 1 MG/ML AMP IM PRN (10:51)
[2024-09-04 10:58] LABS: Adenovirus PCR Not Detected (NotDetected); Bordetella parapertussis PCR Not Detected (NotDetected); Bordetella pertussis PCR Not Detected (NotDetected); Chlamydia pneumoniae PCR Not Detected (NotDetected); Coronavirus 229E PCR Not Detected (NotDetected); Coronavirus CoV-2 (COVID19)PCR Not Detected (NotDetected); Coronavirus HKU1 PCR Not Detected (NotDetected); Coronavirus NL63 PCR Not Detected (NotDetected); Coronavirus OC43PCR Not Detected (NotDetected); Human Metapneumovirus PCR Not Detected (NotDetected); Influenza A PCR Not Detected (NotDetected); Influenza B PCR Not Detected (NotDetected); Mycoplasma pneumoniae PCR Not Detected (NotDetected); Parainfluenza Virus 1 PCR Not Detected (NotDetected); Parainfluenza Virus 2 PCR Not Detected (NotDetected); Parainfluenza Virus 3 PCR Not Detected (NotDetected); Parainfluenza Virus 4 PCR Not Detected (NotDetected); Respiratory Syncytial VirusPCR Not Detected (NotDetected); Rhinovirus/Enterovirus PCR Not Detected (NotDetected)
[2024-09-04] MEDS: FINASTERIDE 5 MG TAB PO SCH (11:42)
[2024-09-04] MEDS: PRAMIPEXOLE DIHYDROCHLO 0.25 MG TAB PO SCH (11:42)
[2024-09-04] MEDS: ERTAPENEM 1000MG 1,000 MG/10 ML SYR IV SCH (11:42)
[2024-09-04] MEDS: buPROPion HCl 100 MG TABLET PO SCH (11:42)
[2024-09-04] MEDS: SPIRONOLACTONE 25 MG TAB PO SCH (11:43)
[2024-09-04] MEDS: carvediloL 3.125 MG TAB PO SCH (11:43)
[2024-09-04] MEDS: CETIRIZINE HCL 10 MG TABLET PO SCH (11:43)
[2024-09-04] MEDS: APIXABAN 5 MG TABLET PO SCH (11:43)
[2024-09-04] MEDS: PANTOprazole 40 MG TAB PO SCH (11:43)
[2024-09-04] MEDS: ASPIRIN 81 MG ECTAB PO SCH (11:44)
[2024-09-04] MEDS: UMECLIDINIUM/VILANTEROL 62.5/25MCG 7 PUFFS/INHALER INH SCH (11:44)
[2024-09-04] MEDS: oxyCODONE HCL 10 MG TABCR (OxyCONTIN) PO SCH (11:56)
[2024-09-04] MEDS: POLYETHYLENE (MIRALAX) 17 GM PACK PO SCH (11:56)
[2024-09-04] MEDS: DOCUSATE SODIUM 100 MG CAP PO SCH (11:56)
[2024-09-04] MEDS: SENNA 8.6 MG TAB PO SCH (11:56)
[2024-09-04] MEDS: POTASSIUM CHLORIDE CRTAB 20 MEQ TABCR PO SCH (11:57)
--- NOTE | 2024-09-04 13:14 | Electrocardiogram Report ---
Test Reason : Blood Pressure : */* mmHG Vent. Rate : 99 BPM Atrial Rate : 99 BPM P-R Int : * ms QRS Dur : 134 ms QT Int : 416 ms P-R-T Axes : 95 138 -21 degrees QTcB Int : 533 ms Ventricular-paced rhythm with occasional AV dual-paced complexes Abnormal ECG When compared with ECG of 12-Aug-2024 15:19, Vent. rate has increased by 7 bpm Confirmed by Royce Negron ([id number]) on 09/04/2024 1:13:49 PM Referred By: REFERRED SELF Confirmed By: Royce Negron
[2024-09-04] MEDS: ALBUT/IPRATROP 3MG/0.5MG NEB 3 ML VIAL NEB SCH (13:19)
[2024-09-04] MEDS: METOCLOPRAMIDE HCL 5 MG TABLET PO ONE (16:03)
[2024-09-04] MEDS: FUROSEMIDE 40 MG/4 ML VIAL IV SCH (17:21)
--- NOTE | 2024-09-04 17:30 | Cardiology Consultation ---
Date of Consultation September 04, 2024 Assessment & Plan (1) Recurrent UTI: Not surprising given his self cath and known obstructive uropathy. E. coli on recent urinalysis/culture with typical symptoms including frequency, dysuria (burning). Continue antibiotics. Patient is scheduled to see urology as an o utpatient later this month. If we do not think we will be discharging him in time for him to get to that appointment I think we should do an inpatient urology consult as this seems to be a frequent cause of hospitalization lately. He previously had missed urology appointment because of hospitalization. (2) Acute hypoxemic respiratory failure: This is seemingly multifactorial. Reviewing his CT scan from May he had groundglass opacities and evidence of mild pneumonia and scarring. There was only a very small parapneumonic effusion noted. His x-ray at that time also had only small pleural effusions. Then, his CT scan from July shows much larger effusions and there appears to be persistent groundglass opacities. The x-ray around this time also shows larger effusion. I do not see that it ever improved in the most recent 2 x-rays suggest slightly increased effusion and pulmonary vascular congestion. We do not have a more recent CT scan. It seems the p atient's had progressive pleural effusion and persistent opacity on CT scan which appears to be scar plus potentially some pneumonia. Does not look like we have been very effective in diuresing off the pleural effusion. He does have some interstitial appearing fluid which will likely diurese with continued IV loop diuretic. I think we should consider thoracentesis and pulmonary consultation. It is possible the effusion is becoming more organized. Will await CT scan. If he does undergo thoracentesis will need to hold Eliquis for 48 hours. Longer than that may require heparin drip given that he has permanent atrial fibrillation and would be prone to forming clot. He already has a history of PE/DVT. (3) Acute exacerbation of CHF (congestive heart failure): Certainly significant pleural effusion by chest x-ray. His weight has not changed much and his BNP is actually less today than it was on his most recent admission in July. However, it has fluctuated from the 150s all the way up to over 800 throughout his admissions. Continue with IV Lasix, carefully monitor his potassium and renal function as he has had acute renal failure induced by diuresis in the past. Baseline GFR is good. Continue carvedilol but currently not utilizing Entresto or ARB because of hypotension in the past. (4) Permanent atrial fibrillation: Currently on Eliquis. We can hold this for 48 hours we can undergo thoracentesis. Continue carvedilol at this time. I would not be surprised if he is tachycardic while we try to diurese him or if he should have worsening infection. (5) Pneumonia: This was previously diagnosed and likely related to his COVID-19 infection which occurred after he had atrial tachycardia ablation in [place] (procedure note unavailable). He continues to cough but is unclear if this is secondary to persistent pneumonia or all related to his pleural effusion. I am somewhat concerned about organizing a parapneumonic effusion. Will see what pulmonary thinks and if there is anything else we can do besides antibiotics and thoracentesis. (6) Pressure ulcer of left heel, stage 4: Continue antibiotics. He will be seen in the wound clinic in about a week or so. Continue inpatient treatment and prophylaxis to prevent worsening. History of Present Illness Attending Physician: Maria Teresa Moses MD History of Present Illness Pleasant 79-year-old gentleman with complex past cardiac history who is well- known to me over many years. I first saw him in around 2010 when he presented with acute MS and I took him emergently to the cardiac catheterization suite where he had stenting (also recall that he had cardiac arrest although I am not certain of this). In addition to coronary artery disease he has chronic ischemic cardiomyopathy, persistent/permanent atrial fibrillation, status post BiV ICD implantation, and pertinent comorbid disease including history of CVA, severe peripheral neuropathy causing ambulatory dysfunction, Parkinson's, contractures, COPD, obstructive uropathy, chronic recurrent UTI, chronic recurrent heel and buttock ulceration, reported to have had recent PAT ablation at [facility] (April 2024), and 2 at times has had acute renal failure second to attempted diuresis. I just saw him in the office this past Wednesday and he was complaining of dysuria, urinary frequency, burning on urination, malaise, cough, exertional dyspnea and he was concerned he had recurrent UTI. He thought he may have had a fever intermittently although temperature was never checked. He had been trying to follow-up with wound management as his home health nurse had noted worsening of his heel ulcerations. Also, he was trying to get into see the urologist for his BPH with LUTS and associated recurrent UTIs. I had the patient get a chest x-ray, urinalysis, and both of these came back abnormal (see reports from 09/01/2024). Unfortunately, the patient tells me this morning he awakened to go to the bathroom and became very dyspneic. He tried using his home O2 but he was not improving very quickly and asked his to call for EMS. Here at the hospital he was noted to have hypoxia with O2 saturation of 80% despite supplemental O2 via nasal cannula. Initial workup was initiated. I have been asked to see him with regard to his chronic cardiac issues and hypoxia. When seeing him in the room today he appears similar to this past Wednesday. Chronically ill, mildly dyspneic, mildly pale. Said he still has some mild burning on urination. Also stated the Lasix was causing him to urinate frequently. He had no additional complaints. Allergies Allergy/AdvReac Type Severity Reaction Status Date / Time bee venom protein (honey bee) Allergy Severe SWELLING, Verified 09/01/24 11:16 SOB Penicillins Allergy Severe SWELLING, Verified 09/01/24 11:16 DIFFICULTY BREATHING lidocaine Allergy Mild RASH Verified 09/01/24 11:16 gabapentin Allergy Unknown Pt denies, Verified 09/01/24 11:16 uncertain icosapent ethyl Allergy Unknown On med Verified 09/01/24 11:16 list / [facility] pregabalin Allergy Unknown On med Verified 09/01/24 11:16 list / [facility] cefdinir AdvReac Severe Vomiting Verified 09/01/24 11:16 hydrocodone AdvReac Mild nausea Verified 09/01/24 11:16 oxycodone AdvReac Mild nausea-SLOW Verified 09/01/24 11:16 RELEASE IS OK Home Medications Medication Instructions Recorded Confirmed Type albuterol sulfate 90 mcg/actuation 2 puffs inhalation Q6H PRN 12/01/18 09/04/24 History aerosol inhaler Shortness Of Breath Or Wheezing bupropion HCl 100 mg tablet 100 mg PO BID 12/01/18 09/04/24 History docusate sodium 100 mg capsule 100 mg PO BID 12/01/18 09/04/24 History finasteride 5 mg tablet 5 mg PO QAM 12/01/18 09/04/24 History aspirin 81 mg tablet,delayed 81 mg PO QAM 12/21/18 09/04/24 History release sennosides 8.6 mg tablet 8.6 mg PO BID 12/21/18 09/04/24 History white petrolatum-mineral oil 56.8 1 applic ophthalmic (eye) HS 12/21/18 09/04/24 History %-42.5 % eye ointment (Refresh Lacri-Lube) pantoprazole 40 mg tablet,delayed 40 mg PO BID 03/10/21 09/04/24 History release tiotropium 2.5 mcg-olodaterol 2.5 2 puff inhalation QAM 12/02/22 09/04/24 History mcg/actuation mist for inhalation (Stiolto Respimat) cetirizine 10 mg tablet 10 mg PO QDB 05/17/23 09/04/24 History epinephrine 0.3 mg/0.3 mL 0.3 mg IM DIRECTED PRN sEVERE 07/08/23 09/04/24 History injection, auto-injector ALLERGIC REACTION bumetanide 1 mg tablet 1 mg PO QAM #90 tabs 10/10/23 09/04/24 Rx potassium chloride 20 mEq 20 meq PO BID #200 tabs 10/10/23 09/04/24 Rx tablet,extended release apixaban 5 mg tablet (Eliquis) 5 mg PO BID #180 tabs 11/23/23 09/04/24 Rx vitamins A,C,W-uvze-ntqrmf 4,296 1 cap PO BID 03/27/24 09/04/24 History mcg-226 mg-90 mg capsule (PreserVision AREDS) aluminum hydroxide gel 320 mg/5 mL 960 mg PO DAILY PRN Heartburn 06/16/24 09/04/24 History oral suspension oxycodone 10 mg tablet,crush 10 mg PO BID 06/16/24 09/04/24 History resistant,extended release 12 hr (OxyContin) metoclopramide HCl 5 mg tablet 5 mg BID 07/02/24 09/04/24 History ipratropium 0.5 mg-albuterol 3 mg 3 ml NEB Q6R PRN #0 mL 07/31/24 09/04/24 Rx (2.5 mg base)/3 mL nebulization soln polyethylene glycol 3350 17 gram 17 g PO BID #0 ea 07/31/24 09/04/24 Rx oral powder packet (Miralax) acetaminophen 325 mg tablet 650 mg PO Q6H PRN Pain/Fever 08/12/24 09/04/24 History (Tylenol) nitroglycerin 0.4 mg sublingual 0.4 mg sublingual DIRECTED PRN 08/12/24 09/04/24 History tablet Chest Pain pramipexole 0.125 mg tablet 0.375 mg PO QAM 08/12/24 09/04/24 History carvedilol 3.125 mg tablet 3.125 mg PO BIDM #60 tabs 08/23/24 09/04/24 Rx spironolactone 25 mg tablet 25 mg PO DAILY #30 tabs 08/23/24 09/04/24 Rx Patient History Medical History Complicated urinary tract infection Sepsis History of venous thromboembolism PAT (paroxysmal atrial tachycardia) Cardiomyopathy Paroxysmal atrial fibrillation HFrEF (heart failure with reduced ejection fraction) Parkinsonism Presence of combination internal cardiac defibrillator (ICD) and pacemaker first placed 2010 @ [facility] replaced in 2014 & 2021 @ [facility]--biventricular [employer]. reports last check 11/25/22. History of urinary self-catheterization self caths every other night CAD (coronary artery disease) s/p stent 2010 Sleep apnea bipap BPH loc w urin obs/LUTS Atrial tachycardia CHF (congestive heart failure) Tachycardia Pressure ulcer of right heel, stage 4 Benign essential hypertension Ischemic cardiomyopathy Euvolemic at 11/23/22 cardio appt Elevated INR Near syncope Tachycardia Leg pain Elevated lactic acid level Elevated INR Cellulitis Unstageable pressure ulcer of right heel Unstageable pressure ulcer of left heel Hypoxia Vomiting Acute kidney injury Elevated troponin Acute kidney failure Acute UTI Sepsis Severe sepsis Encounter for pre-operative examination Intrinsic minus hand POWERS (dyspnea on exertion) Preop testing Episode of confusion Right upper quadrant abdominal pain Hand laceration Dog bite Chest pain Cellulitis of left arm Peripheral arterial disease Hypertension Tremor ICD (implantable cardioverter-defibrillator) in place Neuropathy Complex sleep apnea syndrome NYHA class 4 acute on chronic systolic heart failure History of kidney stones Emphysema lung Legally blind Chronic back pain History of DVT of lower extremity 2010 Macular degeneration Hearing deficit Depression Migraine Myocardial Infarction 10/2010--follows with Dr. Nydegger Pulmonary embolism 1992 and 2010 after heart attack--follows with Dr. Abreu Asthma inhaler prn Surgical History Presence of biventricular automatic cardioverter/defibrillator (AICD) S/P epidural steroid injection History of foot surgery plantar fasciitis History of open reduction and internal fixation (ORIF) procedure left foot--hardware removed History of prostate biopsy x3--precancerous, just monitoring for now History of prostate surgery 07/2016--[facility] prostate vaproization History of cystoscopy multiple History of colonoscopy with polypectomy History of esophagogastroduodenoscopy (EGD) History of right inguinal hernia repair x3 History of Khari fundoplication History of cholecystectomy History of tooth extraction History of eye surgery right--macular degeneration History of bilateral cataract extraction History of cardiac cath 10/2010 @ [facility]--1 stent placed Family History Son Family history of diabetes mellitus Other Family history non-contributory No family history of adverse response to anesthesia Social History Smoking Status: Never smoker Tobacco Type: Cigarettes Second Hand Exposure: No; Do You Dip or Chew Tobacco: No; Hx Alcohol Use: No Hx Substance Use: No Preferred Language: Welsh Communication Ability: Effective Visual Impairment: Partially Limited Hearing Ability: Use of Hearing Aid 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: No Beliefs That Will Affect Care: None marital status: Current Living Situation: Spouse Current Living Situation Comment: with [place] current occupational status: retired How many Children do You have: 1 How many Children do You have Comment: son , able to assist with care as needed Feels Safe at Home: Yes Safety Concerns: Feels Safe At This Time Diet: low salt and regular Assistive Devices: BiPap, Oxygen - at Night, Scooter/Electric Scooter, Walker and Wheelchair Review of Systems Review of Systems: Negative except as per HPI Physical Exam Constitutional: Chronically ill-appearing elderly male. Pale. Mild dyspnea. Neck: Mild JVD Respiratory: Bilateral basilar dullness. Scattered crackles and poor air movement. Cardiovascular: Irregular rhythm with a normal rate. Grade 1-2/6 systolic murmur at the apex. Trace bilateral lower extremity edema. Musculoskeletal: no cyanosis or clubbing, extremities motor strength 5/5 Neurologic: Cognition is intact. Speech is fluent. Baseline tremor. Diminished hearing. Contractures of bilateral hands. Psychiatric: A+Ox3, euthymic affect Results & Data Vital Signs (Past 12 Hours) Vital Signs Temp Pulse Pulse Resp BP BP Pulse Ox 09/04/24 15:50 98 H 09/04/24 15:00 36.4 C L 93 H 16 122/75 93 09/04/24 13:22 90 20 92 09/04/24 12:54 96 H 09/04/24 11:17 09/04/24 11:15 36.4 C L 92 H 22 127/68 92 09/04/24 10:13 91 H 09/04/24 08:43 87 L 09/04/24 08:30 89 22 115/88 95 09/04/24 08:00 128/89 91 09/04/24 08:00 128/89 09/04/24 08:00 94 H 25 H 127/90 97 09/04/24 07:27 96 H 38 H 137/85 97 09/04/24 07:06 99 H 33 H 99 09/04/24 06:33 94 H 27 H 98 09/04/24 06:29 98 H 26 H 99 09/04/24 06:28 36.8 C 99 H 28 H 138/95 96 09/04/24 06:26 94 09/04/24 06:17 82 O2 Del Method O2 Flow Rate 09/04/24 15:50 09/04/24 15:00 Nasal Cannula 09/04/24 13:22 Nasal Cannula 2 09/04/24 12:54 09/04/24 11:17 Nasal Cannula 2 09/04/24 11:15 Nasal Cannula 2 09/04/24 10:13 09/04/24 08:43 Room Air 09/04/24 08:30 Nasal Cannula 2 09/04/24 08:00 Nasal Cannula 09/04/24 08:00 09/04/24 08:00 09/04/24 07:27 Aerosol Mask 8 09/04/24 07:06 Aerosol Mask 8 09/04/24 06:33 Aerosol Mask 8 09/04/24 06:29 Nasal Cannula 6 09/04/24 06:28 Oxymask 4 09/04/24 06:26 Oxymask 0 09/04/24 06:17 PG Care Time/CCT Total # of Minutes Spent Total Time Spent with Patient: Total time spent is greater than 50% in coordination of care (as documented) at patient's floor/unit and/or counseling patient: Coding Level of Care Code 95378 INT INP/OBS CARE 3/75MIN Diagnoses Recurrent UTI N39.0 Acute hypoxemic respiratory failure J96.01 Acute exacerbation of CHF (congestive heart failure) I50.9 Heart failure type: unspecified Permanent atrial fibrillation I48.21 Pneumonia J18.9 Pressure ulcer of left heel, stage 4 L89.624 Time Spent (min) 90 (3) Acute exacerbation of CHF (congestive heart failure) Heart failure type: unspecified Qualified Code(s): I50.9 - Heart failure, unspecified
[2024-09-04] MEDS: METOCLOPRAMIDE HCL 5 MG TABLET PO SCH (20:45)
--- NOTE | 2024-09-05 02:08 | CT Scan Report ---
Exam(s): CT CHEST Without Contrast EXAM: CT Chest Without Intravenous Contrast CLINICAL HISTORY: Reason for exam: pleural effusion,hypoxemia. TECHNIQUE: Axial computed tomography images of the chest without intravenous contrast. CTDI is 26.15 mGy and DLP is 783.82 mGy-cm. Automated exposure control was utilized for the study. A dose lowering technique was utilized adhering to the principles of ALARA. COMPARISON: CT August 16, 2024. FINDINGS: Lungs: Emphysematous changes in the lungs with several scattered blebs and small bullae. Extensive areas of atelectasis are seen bilaterally, predominantly in the lower lobes. No mass. Pleural space: Persistent small to moderate sized bilateral pleural effusions, larger on the right. No pneumothorax. Heart: Heavy coronary arterial calcifications. Cardiomegaly. No significant pericardial effusion. Mediastinum: Moderate to large hiatus hernia. Bones/joints: Unremarkable. No acute fracture. No dislocation. Soft tissues: Unremarkable. Vasculature: No aortic aneurysm. Lymph nodes: Unremarkable. No enlarged lymph nodes. Tubes, lines and devices: Implanted cardiac pacer. IMPRESSION: Small to moderate sized bilateral pleural effusions, larger on the right. Extensive atelectasis bilaterally, predominantly in the lower lobes. Emphysematous changes. Electronically signed by: Saúl Gonzales MD 09/05/24 02:07 AM
[2024-09-05] MEDS: ONDANSETRON INJ 2 MG/ML 2 ML VIAL IV STA (02:40)
[2024-09-05] MEDS: METOCLOPRAMIDE HCL INJ 5 MG/ML 2 ML VIAL IV ONE (03:49)
[2024-09-05] MEDS ORDERED: guaiFENesin/DEXTROM SYRUP 100MG/10MG 5ML UDC PO PRN (04:41)
[2024-09-05] MEDS: guaiFENesin/DEXTROM SYRUP 200MG/20MG 10ML UDC PO STA (05:14)
[2024-09-05 07:27] LABS: BUN Creatinine Ratio 24.2 (10-20); Calcium 9.7 mg/dl (8.6-10.3); Creatinine Clr Calc Pharmacy 60.4 ml/min; Magnesium 2.2 mg/dl (1.7-2.4); Potassium 4.2 mmol/L (3.5-5.1)
[2024-09-05 07:43] LABS: Thyroid Stimulating Hormone 2.3 uIu/ml (0.300-4.500)
--- NOTE | 2024-09-05 08:10 | Pulmonary Consultation ---
Date of Consultation September 05, 2024 Assessment & Plan (1) COPD (chronic obstructive pulmonary disease): COPD type: COPD with acute exacerbation Qualified Code(s): J44.1 - Chronic obstructive pulmonary disease with (acute) exacerbation (2) Pleural effusion due to CHF (congestive heart failure): (3) Acute hypoxemic respiratory failure: Plan Acute hypoxic respiratory failure related to likely CHF exacerbation -Continue diuresis with lasix -BNP 800 on admission -Appreciate cardiology recs Bilateral pleural effusions likley related to CHF -CT chest shows small to moderate bilateral pleural effusions R>L -Patient would benefit to more aggressive diuresis -Discussed thoracentesis but given likely from hear failure risk outweighs potential benefit. If persistent can contact IR for thoracentesis. -Patient recommended possible palliative care consult by pulmonology in the past. Patient may benefit in setting of worsening heart failure with multiple admissions. COPD -Patient wheezing on admission per report -Continue Stiolto inhaler -Albuterol PRN -Discontinue systemic methylprednisolone Supervising Physician Co-Signing Physician Notes Patient seen and examined. EMR reviewed. Images were independently reviewed. Patient admitted with the systolic heart failure. He has small bilateral pleural effusions. He is fully anticoagulated on Eliquis. Based on the recent TAPIT trial, there is no benefit in decreasing hospitalization, symptom improvement, or long-term outcomes in early thoracentesis in patients with heart failure and pleural effusions. These effusions been present for some time. Would recommend continued aggressive diuretic management until BUN and creatinine elevate. In addition, the patient is fully anticoagulated on Eliquis and this anticoagulation would need to be stopped for at least 48 hours prior to consideration of thoracentesis. I do not see evidence of COPD exacerbation currently and there is no indication for antibiotics from a pulmonary standpoint or systemic steroids. He should continue to use his noninvasive positive pressure ventilation at night given his severe complex sleep apnea. At this point in time, continue diuretics are recommended. If he fails, consideration for discussion with radiology for IR guided thoracentesis would be appropriate. History of Present Illness Reason for Consultation: Bilateral pleural effusions and hypoxia Attending Physician: Maria Teresa Moses MD History of Present Illness Royce Louise is a 79-year-old male with past medical history of PAF on Eliquis, Depression, Parkinson disease, HFrEF last EF 25-30%, coronary artery disease, COPD, and ROSE; who presented to [facility] 09/04/2024 on with shortness of breath. Of note the patient has had 5 admissions since April of 2024 for similar episodes of SOB from heart failure exacerbation. Patient states he was lattempting to walk out of his bathroom on 09/04/2024 when he became very short of breath he attempted to use his 's oxygen but it took a considerable amount of time to recvoer prompting him to come to [facility] ED. On admission EK was negative for acute ND. A CT chest showed smalle to moderate bilateral effusions right greater than left and atelectasis in bilateral lower lobes. BNP elevated at 800 though the patient states his weight is stable. WBC 11.52 and patient afebrile Patient admitted for diuresis and treatment of COPD exacerbation on 09/04/2024. Pulmonary conuslted for management opinion on bilateral pleural effusions. Allergies Allergy/AdvReac Type Severity Reaction Status Date / Time bee venom protein (honey bee) Allergy Severe SWELLING, Verified 09/01/24 11:16 SOB Penicillins Allergy Severe SWELLING, Verified 09/01/24 11:16 DIFFICULTY BREATHING lidocaine Allergy Mild RASH Verified 09/01/24 11:16 gabapentin Allergy Unknown Pt denies, Verified 09/01/24 11:16 uncertain icosapent ethyl Allergy Unknown On med Verified 09/01/24 11:16 list / [facility] pregabalin Allergy Unknown On med Verified 09/01/24 11:16 list / [facility] cefdinir AdvReac Severe Vomiting Verified 09/01/24 11:16 hydrocodone AdvReac Mild nausea Verified 09/01/24 11:16 oxycodone AdvReac Mild nausea-SLOW Verified 09/01/24 11:16 RELEASE IS OK Home Medications Medication Instructions Recorded Confirmed Type albuterol sulfate 90 mcg/actuation 2 puffs inhalation Q6H PRN 12/01/18 09/04/24 History aerosol inhaler Shortness Of Breath Or Wheezing bupropion HCl 100 mg tablet 100 mg PO BID 12/01/18 09/04/24 History docusate sodium 100 mg capsule 100 mg PO BID 12/01/18 09/04/24 History finasteride 5 mg tablet 5 mg PO QAM 12/01/18 09/04/24 History aspirin 81 mg tablet,delayed 81 mg PO QAM 12/21/18 09/04/24 History release sennosides 8.6 mg tablet 8.6 mg PO BID 12/21/18 09/04/24 History white petrolatum-mineral oil 56.8 1 applic ophthalmic (eye) HS 12/21/18 09/04/24 History %-42.5 % eye ointment (Refresh Lacri-Lube) pantoprazole 40 mg tablet,delayed 40 mg PO BID 03/10/21 09/04/24 History release tiotropium 2.5 mcg-olodaterol 2.5 2 puff inhalation QAM 12/02/22 09/04/24 History mcg/actuation mist for inhalation (Stiolto Respimat) cetirizine 10 mg tablet 10 mg PO QDB 05/17/23 09/04/24 History epinephrine 0.3 mg/0.3 mL 0.3 mg IM DIRECTED PRN sEVERE 07/08/23 09/04/24 History injection, auto-injector ALLERGIC REACTION bumetanide 1 mg tablet 1 mg PO QAM #90 tabs 10/10/23 09/04/24 Rx potassium chloride 20 mEq 20 meq PO BID #200 tabs 10/10/23 09/04/24 Rx tablet,extended release apixaban 5 mg tablet (Eliquis) 5 mg PO BID #180 tabs 11/23/23 09/04/24 Rx vitamins A,C,A-qumb-fbtbfj 4,296 1 cap PO BID 03/27/24 09/04/24 History mcg-226 mg-90 mg capsule (PreserVision AREDS) aluminum hydroxide gel 320 mg/5 mL 960 mg PO DAILY PRN Heartburn 06/16/24 09/04/24 History oral suspension oxycodone 10 mg tablet,crush 10 mg PO BID 06/16/24 09/04/24 History resistant,extended release 12 hr (OxyContin) metoclopramide HCl 5 mg tablet 5 mg BID 07/02/24 09/04/24 History ipratropium 0.5 mg-albuterol 3 mg 3 ml NEB Q6R PRN #0 mL 07/31/24 09/04/24 Rx (2.5 mg base)/3 mL nebulization soln polyethylene glycol 3350 17 gram 17 g PO BID #0 ea 07/31/24 09/04/24 Rx oral powder packet (Miralax) acetaminophen 325 mg tablet 650 mg PO Q6H PRN Pain/Fever 08/12/24 09/04/24 History (Tylenol) nitroglycerin 0.4 mg sublingual 0.4 mg sublingual DIRECTED PRN 08/12/24 09/04/24 History tablet Chest Pain pramipexole 0.125 mg tablet 0.375 mg PO QAM 08/12/24 09/04/24 History carvedilol 3.125 mg tablet 3.125 mg PO BIDM #60 tabs 08/23/24 09/04/24 Rx spironolactone 25 mg tablet 25 mg PO DAILY #30 tabs 08/23/24 09/04/24 Rx Patient History Medical History Complicated urinary tract infection Sepsis History of venous thromboembolism PAT (paroxysmal atrial tachycardia) Cardiomyopathy Paroxysmal atrial fibrillation HFrEF (heart failure with reduced ejection fraction) Parkinsonism Presence of combination internal cardiac defibrillator (ICD) and pacemaker first placed 2010 @ [facility] replaced in 2014 & 2021 @ [facility]--biventricular [employer]. reports last check 11/25/22. History of urinary self-catheterization self caths every other night CAD (coronary artery disease) s/p stent 2010 Sleep apnea bipap BPH loc w urin obs/LUTS Atrial tachycardia CHF (congestive heart failure) Tachycardia Pressure ulcer of right heel, stage 4 Benign essential hypertension Ischemic cardiomyopathy Euvolemic at 11/23/22 cardio appt Elevated INR Near syncope Tachycardia Leg pain Elevated lactic acid level Elevated INR Cellulitis Unstageable pressure ulcer of right heel Unstageable pressure ulcer of left heel Hypoxia Vomiting Acute kidney injury Elevated troponin Acute kidney failure Acute UTI Sepsis Severe sepsis Encounter for pre-operative examination Intrinsic minus hand POWERS (dyspnea on exertion) Preop testing Episode of confusion Right upper quadrant abdominal pain Hand laceration Dog bite Chest pain Cellulitis of left arm Peripheral arterial disease Hypertension Tremor ICD (implantable cardioverter-defibrillator) in place Neuropathy Complex sleep apnea syndrome NYHA class 4 acute on chronic systolic heart failure History of kidney stones Emphysema lung Legally blind Chronic back pain History of DVT of lower extremity 2010 Macular degeneration Hearing deficit Depression Migraine Myocardial Infarction 10/2010--follows with Dr. Abreu Pulmonary embolism 1992 and 2010 after heart attack--follows with Dr. Abreu Asthma inhaler prn Surgical History Presence of biventricular automatic cardioverter/defibrillator (AICD) S/P epidural steroid injection History of foot surgery plantar fasciitis History of open reduction and internal fixation (ORIF) procedure left foot--hardware removed History of prostate biopsy x3--precancerous, just monitoring for now History of prostate surgery 07/2016--[facility] prostate vaproization History of cystoscopy multiple History of colonoscopy with polypectomy History of esophagogastroduodenoscopy (EGD) History of right inguinal hernia repair x3 History of Khari fundoplication History of cholecystectomy History of tooth extraction History of eye surgery right--macular degeneration History of bilateral cataract extraction History of cardiac cath 10/2010 @ [facility]--1 stent placed Family History Son Family history of diabetes mellitus Other Family history non-contributory No family history of adverse response to anesthesia Social History Smoking Status: Never smoker Tobacco Type: Cigarettes Second Hand Exposure: No; Do You Dip or Chew Tobacco: No; Hx Alcohol Use: No Hx Substance Use: No Preferred Language: Wolof Communication Ability: Effective Visual Impairment: Partially Limited Hearing Ability: Use of Hearing Aid 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 No Chest Pain, SOB, No PND, No Dyspnea on Exertion, No Orthopnea, No Claudication, No Edema, No Palpitations Respiratory: + wheezing on 09/05 imrpoved this am, + cough yellow to clear sputum. + Dyspnea worse with exertion. Gastrointestinal: No Nausea, No Vomiting, No Diarrhea, No Constipation, No Pain, No Heartburn, Skin: No Skin Lesions, No Pruritis, No Hair Changes. Neuro: No Weakness, No Numbness, No Paresthesias, No Loss of Consciousness, No Syncope, No Dizziness, No Headache, No Coordination Changes, No Recent Falls Complete ROS negative unless noted in HPI Physical Exam 2 Physical Exam: VITALS: Reviewed. WEIGHT/BMI reviewed. GEN: Chronically ill elderly patient lying in bed in mild distress PSYCH: Good Judgment. AOx3. Normal memory, mood, and affect. HEENT: NC/AT; Normal nares. MMM. Normal gums, mucosa, palate,. Good dentition. NECK: Supple, with no masses. CV: RRR, no m/r/g. LUNGS: CTAB, no w/r/c. Chest rise symmetrical. Breathing mildly labored. ABD: Soft, NT/ND, NBS, no masses or organomegaly. SKIN: Warm, well perfused. No skin rashes or abnormal lesions. MSK: No deformities, Normal gait. EXT: No clubbing, cyanosis, or edema. NEURO: Normal muscle strength and tone. No focal deficits. Results & Data Results & Data Vital Signs (Past 12 Hours) Vital Signs Temp Pulse Pulse Resp BP Pulse Ox O2 Del Method 09/05/24 07:40 86 09/05/24 07:35 18 95 Nasal Cannula 09/05/24 02:35 36.6 C 101 H 24 122/76 92 Nasal Cannula 09/05/24 02:03 87 22 96 Nasal Cannula 09/04/24 23:11 37.1 C 90 24 114/70 93 Nasal Cannula 09/04/24 22:53 89 29 H 96 BiPAP 09/04/24 22:53 89 29 H 96 O2 Flow Rate 09/05/24 07:40 09/05/24 07:35 3 09/05/24 02:35 2 09/05/24 02:03 2 09/04/24 23:11 2.5 09/04/24 22:53 2 09/04/24 22:53 2 Laboratory Results 09/04/24 07:09 09/05/24 06:41 Abnormal Lab Results 09/04/24 09/05/24 09:59 06:41 Sodium 141 Potassium 4.2 Chloride 103 Carbon Dioxide 29 Anion Gap 9 BUN 30 H Creatinine 1.24 D Est Cr Clr Drug Dosing 60.4 eGFR 59.14 BUN/Creatinine Ratio 24.2 H Glucose 126 H Calcium 9.7 Magnesium 2.2 TSH 2.300 Adenovirus (PCR) Not Detected B. pertussis DNA (PCR) Not Detected B.parapertussis DNA PCR Not Detected C. pneumoniae DNA (PCR) Not Detected Coronavirus OC43 (PCR) Not Detected Coronavirus HKU1 (PCR) Not Detected Coronavirus 229E (PCR) Not Detected SARS-CoV-2 (PCR) Not Detected Coronavirus NL63 (PCR) Not Detected Human Metapneumovir PCR Not Detected Influenza Type A (PCR) Not Detected Influenza Type B (PCR) Not Detected M. pneumoniae (PCR) Not Detected Parainfluenza 1 (PCR) Not Detected Parainfluenza 2 (PCR) Not Detected Parainfluenza 3 (PCR) Not Detected Parainfluenza 4 (PCR) Not Detected RSV (PCR) Not Detected Entero/Rhino (PCR) Not Detected Diagnostic Findings Chest CT 09/04/24 20:09 Exam(s): CT CHEST Without Contrast EXAM: CT Chest Without Intravenous Contrast CLINICAL HISTORY: Reason for exam: pleural effusion,hypoxemia. TECHNIQUE: Axial computed tomography images of the chest without intravenous contrast. CTDI is 26.15 mGy and DLP is 783.82 mGy-cm. Automated exposure control was utilized for the study. A dose lowering technique was utilized adhering to the principles of ALARA. COMPARISON: CT August 16, 2024. FINDINGS: Lungs: Emphysematous changes in the lungs with several scattered blebs and small bullae. Extensive areas of atelectasis are seen bilaterally, predominantly in the lower lobes. No mass. Pleural space: Persistent small to moderate sized bilateral pleural effusions, larger on the right. No pneumothorax. Heart: Heavy coronary arterial calcifications. Cardiomegaly. No significant pericardial effusion. Mediastinum: Moderate to large hiatus hernia. Bones/joints: Unremarkable. No acute fracture. No dislocation. Soft tissues: Unremarkable. Vasculature: No aortic aneurysm. Lymph nodes: Unremarkable. No enlarged lymph nodes. Tubes, lines and devices: Implanted cardiac pacer. IMPRESSION: Small to moderate sized bilateral pleural effusions, larger on the right. Extensive atelectasis bilaterally, predominantly in the lower lobes. Emphysematous changes. Electronically signed by: Saúl Gonzales MD 09/05/24 02:07 AM PG Care Time/CCT Total # of Minutes Spent Total Time Spent with Patient: Total time spent is greater than 50% in coordination of care (as documented) at patient's floor/unit and/or counseling patient: Coding Level of Care Code 43066 INT INP/OBS CARE 3/75MIN Diagnoses COPD (chronic obstructive pulmonary disease) J44.1 COPD type: COPD with acute exacerbation Pleural effusion due to CHF (congestive heart failure) I50.9 Acute hypoxemic respiratory failure J96.01 Time Spent (min) 42
[2024-09-05] MEDS: FAMOTIDINE 20MG IV PUSH 20 MG/5 ML SYR IV STA (08:42)
[2024-09-05] MEDS ORDERED: methylPREDNISolone 125 MG/2 ML VIAL IV SCH (09:00)
[2024-09-05] MEDS: methylPREDNISolone 60 MG in SYRINGE 0 ML IV SCH (09:52)
--- NOTE | 2024-09-05 13:27 | Hospitalist Progress Note ---
Date of Service September 05, 2024 Assessment & Plan (1) HFrEF (heart failure with reduced ejection fraction): (2) Acute hypoxemic respiratory failure: (3) Recurrent UTI: (4) Paroxysmal atrial fibrillation: Plan This patient is a 79-year-old male with a history of HFrEF, biventricular ICD, CAD s/p stent RCA 2010,, PAF on Eliquis, COPD/asthma, chronic hypoxic respiratory failure/ROSE on supplemental O2 and BiPAP, neuropathy, spinal stenosis, ambulatory dysfunction, VTE, BPH, intermittent self-catheterization, parkinsonism, depression, chronic pain syndrome, GERD, who presents with acute on chronic HFrEF and COPD exacerbation with acute on chronic hypoxemic respiratory failure. #Acute on chronic hypoxemic respiratory failure/acute on chronic HFrEF/acute exacerbation of COPD/asthma-BNP elevated, CXR consistent with heart failure. However, his weight is not up from previous. He also has some component of wheezing and COPD exacerbation. His Entresto was recently discontinued and his carvedilol was recently lowered in dose due to hypotension. Pulse ox 87% on room air. Typically he uses 3L O2 at night with BiPAP but none during the day. Diuresing slowly and remains on 3 LNC O2. Creatinine starting to rise - Lower Lasix to 20 Mg IV twice daily, continue spironolactone - Continue carvedilol at current dose which was recently lowered to 3.125 Mg p.o. twice daily and increase if has tachycardia and if BP can tolerate - Consult cardiology for further recommendations appreciated - Continue Solu-Medrol 60 mg IV once daily, scheduled DuoNebs every 6 hours, and maintenance inhaler - Appreciate pulmonology consult-does not recommend thoracentesis but could consult IR if needed-will continue to hold Eliquis in case needed - Continue supplemental O2 to keep pulse ox greater than 90% - Continue strict I's and O's, daily weights, low-sodium diet #CAD s/p stent RCA 2010/PAF on Eliquis-he had some chest pressure at rest on 2 nights the week prior to admission but none currently and troponin negative, no ischemic changes on ECG. Nuclear stress test on 08/31/2024 showed large in size, moderate to severe intensity fixed MPI defect involving entire apex, inferior, inferior lateral, distal anterior, and inferior septal myocardium with small amount of reversibility involving mid anterior and anterior septum-overall low risk of ischemia. - Consult cardiology for any further input appreciated - Continue aspirin, Eliquis, carvedilol - He is not on a statin-unclear reason #BPH/intermittent self-catheterization/history of recurrent UTI-with ongoing dysuria. Self catheterizes every other night for history of urethral stricture. UA and urine culture abnormal from 09/01 as an outpatient with ESBL E. coli which was recurrent. Symptoms are now improving with treatment with ertapenem however he has developed nausea/vomiting he thinks from ertapenem. Suspect he needs longer course of treatment for prostatitis. Appreciate ID consult and urology consults - Continue self-catheterization every other night - Needs outpatient cystoscopy with urology - Continue finasteride - Change ertapenem to meropenem and await further ID recommendations - Check CT abdomen/pelvis with IV contrast to look for obstruction as nidus of infection #Chronic pain syndrome/neuropathy/ambulatory dysfunction/chronic pain syndrome- no acute issues. He can walk short distances with a walker but uses a scooter or wheelchair for mobility - Continue home OxyContin, pramipexole - Consult PT/OT #Bilateral pressure ulcers on heels-stage I on left and stage II on right with scant drainage, no definite signs of infection - Receiving ertapenem for UTI but no real need for treatment for infection of heel ulcers - Consult wound care, offload pressure #GERD/gastroparesis-having nausea may be related to ertapenem - Continue Protonix, Reglan - Add IV Zofran DVT prophylaxis-has a history of VTE. Continue Eliquis,SCDs Disposition-continued stay on PCU, discussed care with at the bedside Admission and Anticipated Discharge Date Admission Date: September 04, 2024 Subjective Patient reports urinary symptoms are improving. He is making urine. I di scussed his care with cardiology. He still feels short of breath but may be slightly better than on admission. He vomited overnight and is still feeling with a low appetite today he thinks from the antibiotic Telemetry with paced rhythm in the 90s. Physical Exam Constitutional: WD/WN, vitals as above Respiratory: Auscultation: + diminished lung sounds (Bibasilar) and + crackles (Left base); no rhonchi and no wheezes Cardiovascular: Rate/Rhythm: regular rate and regular rhythm Heart Sounds: no murmur Extremities: + edema (Trace pitting edema of the legs to the knees bilaterally) Chest (Breasts): Chest: + pacemaker (Left anterior chest wall) Gastrointestinal (Abdomen): normal bowel sounds, soft, nontender, no hepatosplenomegaly Musculoskeletal: Extremities: extremities normal to inspection; no cyanosis and no clubbing Skin: no rashes, warm and dry + ulcer (Right stage 2 pressure ulcer on heel, left stage I pressure ulcer heel) Neurologic: moves all extremities and awake; no focal motor deficits Psychiatric: A+Ox3, euthymic affect Results & Data Results & Data Vital Signs (Past 12 Hours) Vital Signs Temp Pulse Pulse Resp BP Pulse Ox O2 Del Method 09/05/24 13:25 71 18 95 Nasal Cannula 09/05/24 09:00 Nasal Cannula 09/05/24 07:40 86 09/05/24 07:35 18 95 Nasal Cannula 09/05/24 02:35 36.6 C 101 H 24 122/76 92 Nasal Cannula 09/05/24 02:03 87 22 96 Nasal Cannula O2 Flow Rate 09/05/24 13:25 2 09/05/24 09:00 2 09/05/24 07:40 09/05/24 07:35 3 09/05/24 02:35 2 09/05/24 02:03 2 Laboratory Results BMP, magnesium, UA, urine culture reviewed PG Care Time/CCT Total # of Minutes Spent Total Time Spent with Patient: Total time spent is greater than 50% in coordination of care (as documented) at patient's floor/unit and/or counseling patient: Coding Level of Care Code 50996 SUB INP/OBS CARE 3/50MIN Diagnoses HFrEF (heart failure with reduced ejection fraction) I50.20 Acute hypoxemic respiratory failure J96.01 Recurrent UTI N39.0 Paroxysmal atrial fibrillation I48.0
--- NOTE | 2024-09-05 14:35 | Urology Consultation ---
Date of Consultation September 05, 2024 Assessment & Plan (1) Recurrent UTI: 79-year-old male who was admitted with acute on chronic HFrEF and COPD exacerbation with acute on chronic hypoxemic respiratory failure - Urology was asked to evaluate patient for recurrent UTI. Hx BPH s/p GLTURP Jul 2016 and IBNC Apr 2017. History of stricture/contracture after photo vaporization with history of severe retention. Patient continues to self cath every other day to maintain the tr.act Currently afebrile, normotensive, and mildly tachycardic. Labs reviewed -creatinine 1.24 He has had 5 documented UTIs this year. He is currently being treated for E.coli ESBL UTI with Ertapenem. Voiding spontaneously, has external catheter in place. Continues on finasteride. We discussed recurrent UTIs and potential etiologies. Given his frequent infections, we discussed pursuing further workup with imaging and cystoscopy. We discussed that this can be completed as an outpatient. Continue antibiotics for treatment of current infection. Recommend continued monitoring of ability to void, bladder scan as needed. Cont inue with straight catheterization every other day. Urology will sign off. Please call with any further questions or concerns. History of Present Illness Attending Physician: Maria Teresa Moses MD History of Present Illness 79-year-old male who was admitted with acute on chronic HFrEF and COPD exacerbation with acute on chronic hypoxemic respiratory failure. Urology was asked to evaluate patient for recurrent UTI. History of BPH, intermittent self catheterizations, recurrent UTI Hx GLTURP Jul 2016, IBNC Apr 2017. History of stricture/contracture after photo vaporization with history of severe retention Patient continues to self cath every other day to maintain the tract Continues on finasteride Urine culture hx- 09/01/2024 grew E. coli ESBL 08/12/24 grew E. coli ESBL 07/23/24 grew E. coli ESBL 07/02/2024 grew E. coli 06/05/2024 grew Klebsiella Allergies Allergy/AdvReac Type Severity Reaction Status Date / Time bee venom protein (honey bee) Allergy Severe SWELLING, Verified 09/01/24 11:16 SOB Penicillins Allergy Severe SWELLING, Verified 09/01/24 11:16 DIFFICULTY BREATHING lidocaine Allergy Mild RASH Verified 09/01/24 11:16 gabapentin Allergy Unknown Pt denies, Verified 09/01/24 11:16 uncertain icosapent ethyl Allergy Unknown On med Verified 09/01/24 11:16 list w/ [facility] pregabalin Allergy Unknown On med Verified 09/01/24 11:16 list / [facility] cefdinir AdvReac Severe Vomiting Verified 09/01/24 11:16 ertapenem AdvReac Mild Vomiting Verified 09/05/24 13:27 hydrocodone AdvReac Mild nausea Verified 09/01/24 11:16 oxycodone AdvReac Mild nausea-SLOW Verified 09/01/24 11:16 RELEASE IS OK Home Medications Medication Instructions Recorded Confirmed Type albuterol sulfate 90 mcg/actuation 2 puffs inhalation Q6H PRN 12/01/18 09/04/24 History aerosol inhaler Shortness Of Breath Or Wheezing bupropion HCl 100 mg tablet 100 mg PO BID 12/01/18 09/04/24 History docusate sodium 100 mg capsule 100 mg PO BID 12/01/18 09/04/24 History finasteride 5 mg tablet 5 mg PO QAM 12/01/18 09/04/24 History aspirin 81 mg tablet,delayed 81 mg PO QAM 12/21/18 09/04/24 History release sennosides 8.6 mg tablet 8.6 mg PO BID 12/21/18 09/04/24 History white petrolatum-mineral oil 56.8 1 applic ophthalmic (eye) HS 12/21/18 09/04/24 History %-42.5 % eye ointment (Refresh Lacri-Lube) pantoprazole 40 mg tablet,delayed 40 mg PO BID 03/10/21 09/04/24 History release tiotropium 2.5 mcg-olodaterol 2.5 2 puff inhalation QAM 12/02/22 09/04/24 History mcg/actuation mist for inhalation (Stiolto Respimat) cetirizine 10 mg tablet 10 mg PO QDB 05/17/23 09/04/24 History epinephrine 0.3 mg/0.3 mL 0.3 mg IM DIRECTED PRN sEVERE 07/08/23 09/04/24 History injection, auto-injector ALLERGIC REACTION bumetanide 1 mg tablet 1 mg PO QAM #90 tabs 10/10/23 09/04/24 Rx potassium chloride 20 mEq 20 meq PO BID #200 tabs 10/10/23 09/04/24 Rx tablet,extended release apixaban 5 mg tablet (Eliquis) 5 mg PO BID #180 tabs 11/23/23 09/04/24 Rx vitamins A,C,R-qril-vvcypp 4,296 1 cap PO BID 03/27/24 09/04/24 History mcg-226 mg-90 mg capsule (PreserVision AREDS) aluminum hydroxide gel 320 mg/5 mL 960 mg PO DAILY PRN Heartburn 06/16/24 09/04/24 History oral suspension oxycodone 10 mg tablet,crush 10 mg PO BID 06/16/24 09/04/24 History resistant,extended release 12 hr (OxyContin) metoclopramide HCl 5 mg tablet 5 mg BID 07/02/24 09/04/24 History ipratropium 0.5 mg-albuterol 3 mg 3 ml NEB Q6R PRN #0 mL 07/31/24 09/04/24 Rx (2.5 mg base)/3 mL nebulization soln polyethylene glycol 3350 17 gram 17 g PO BID #0 ea 07/31/24 09/04/24 Rx oral powder packet (Miralax) acetaminophen 325 mg tablet 650 mg PO Q6H PRN Pain/Fever 08/12/24 09/04/24 History (Tylenol) nitroglycerin 0.4 mg sublingual 0.4 mg sublingual DIRECTED PRN 08/12/24 09/04/24 History tablet Chest Pain pramipexole 0.125 mg tablet 0.375 mg PO QAM 08/12/24 09/04/24 History carvedilol 3.125 mg tablet 3.125 mg PO BIDM #60 tabs 08/23/24 09/04/24 Rx spironolactone 25 mg tablet 25 mg PO DAILY #30 tabs 08/23/24 09/04/24 Rx Patient History Medical History Complicated urinary tract infection Sepsis History of venous thromboembolism PAT (paroxysmal atrial tachycardia) Cardiomyopathy Paroxysmal atrial fibrillation HFrEF (heart failure with reduced ejection fraction) Parkinsonism Presence of combination internal cardiac defibrillator (ICD) and pacemaker first placed 2010 @ [facility] replaced in 2014 & 2021 @ [facility]--biventricular [employer] PETE. reports last check 11/25/22. History of urinary self-catheterization self caths every other night CAD (coronary artery disease) s/p stent 2010 Sleep apnea bipap BPH loc w urin obs/LUTS Atrial tachycardia CHF (congestive heart failure) Tachycardia Pressure ulcer of right heel, stage 4 Benign essential hypertension Ischemic cardiomyopathy Euvolemic at 11/23/22 cardio appt Elevated INR Near syncope Tachycardia Leg pain Elevated lactic acid level Elevated INR Cellulitis Unstageable pressure ulcer of right heel Unstageable pressure ulcer of left heel Hypoxia Vomiting Acute kidney injury Elevated troponin Acute kidney failure Acute UTI Sepsis Severe sepsis Encounter for pre-operative examination Intrinsic minus hand POWERS (dyspnea on exertion) Preop testing Episode of confusion Right upper quadrant abdominal pain Hand laceration Dog bite Chest pain Cellulitis of left arm Peripheral arterial disease Hypertension Tremor ICD (implantable cardioverter-defibrillator) in place Neuropathy Complex sleep apnea syndrome NYHA class 4 acute on chronic systolic heart failure History of kidney stones Emphysema lung Legally blind Chronic back pain History of DVT of lower extremity 2010 Macular degeneration Hearing deficit Depression Migraine Myocardial Infarction 10/2010--follows with Dr. Abreu Pulmonary embolism 1992 and 2010 after heart attack--follows with Dr. Abreu Asthma inhaler prn Surgical History Presence of biventricular automatic cardioverter/defibrillator (AICD) S/P epidural steroid injection History of foot surgery plantar fasciitis History of open reduction and internal fixation (ORIF) procedure left foot--hardware removed History of prostate biopsy x3--precancerous, just monitoring for now History of prostate surgery 07/2016--greenlight prostate vaproization History of cystoscopy multiple History of colonoscopy with polypectomy History of esophagogastroduodenoscopy (EGD) History of right inguinal hernia repair x3 History of Khari fundoplication History of cholecystectomy History of tooth extraction History of eye surgery right--macular degeneration History of bilateral cataract extraction History of cardiac cath 10/2010 @ [facility]--1 stent placed Family History Son Family history of diabetes mellitus Other Family history non-contributory No family history of adverse response to anesthesia Social History Smoking Status: Never smoker Tobacco Type: Cigarettes Second Hand Exposure: No; Do You Dip or Chew Tobacco: No; Hx Alcohol Use: No Hx Substance Use: No Preferred Language: Singaporean Communication Ability: Effective Visual Impairment: Partially Limited Hearing Ability: Use of Hearing Aid Pedal Assembler Required: No Beliefs That Will Affect Care: None marital status: Current Living Situation: Spouse Current Living Situation Comment: with Araceli current occupational status: retired How many Children do You have: 1 How many Children do You have Comment: son , able to assist with care as needed Feels Safe at Home: Yes Diet: low salt and regular Assistive Devices: BiPap, Oxygen - at Night, Scooter/Electric Scooter, Walker and Wheelchair Review of Systems Review of Systems: All systems reviewed & are unremarkable except as noted in HPI & below Physical Exam Constitutional: no acute distress Respiratory: no respiratory distress and no labored breathing Musculoskeletal: Head/Neck/Chest: normocephalic Skin: No visible rashes or lesions to exposed skin areas Neurologic: awake Psychiatric: A+Ox3, euthymic affect Genitourinary: External catheter in place Results & Data Vital Signs (Past 12 Hours) Vital Signs Temp Pulse Pulse Resp BP Pulse Ox O2 Del Method 09/05/24 14:15 92 H 09/05/24 13:25 71 18 95 Nasal Cannula 09/05/24 09:00 Nasal Cannula 09/05/24 07:40 86 09/05/24 07:35 18 95 Nasal Cannula 09/05/24 02:35 36.6 C 101 H 24 122/76 92 Nasal Cannula O2 Flow Rate 09/05/24 14:15 09/05/24 13:25 2 09/05/24 09:00 2 09/05/24 07:40 09/05/24 07:35 3 09/05/24 02:35 2 PG Care Time/CCT Total # of Minutes Spent Total Time Spent with Patient: Total time spent is greater than 50% in coordination of care (as documented) at patient's floor/unit and/or counseling patient: Coding Level of Care Code 47432 INT INP/OBS CARE 2/55MIN Diagnoses Recurrent UTI N39.0
--- NOTE | 2024-09-05 15:21 | Infectious Disease Consult ---
Date of Consultation September 05, 2024 Assessment & Plan (1) Infection due to ESBL-producing Escherichia coli: (2) Recurrent UTI: (3) History of urinary self-catheterization: Plan 79yo M with h/o HFrEF, s/p biV ICD, CAD s/p PCI 2010, pafib, COPD/asthma, chronic hypoxic respiratory failure/ROSE on supplemental O2 and bipap, spinal stenosis, BPH s/p GLTURP in 2016 and TUIBNC 2018, stricture/contracture with severe urinary retention with intermittent self-cath, Parkinsonism, depression, chronic pain syndrome, neuropathy who presented on 09/04 with worsening POWERS x 3-4 days. He was recently admitted 08/12-08/23 with CHF and PNA (was tx with meropenem->erta and vanc->LZD, seems like 7d course). Also with dysuria/freq since 08/31. In the ER, he was afebrile, hypoxic to 87% on RA. Initial labs with WBC 11.52, Cr 0.87, LFTs wnl. BNP elevated. RPP negative. UA from 09/01 has negative nitrates, 1+ leuk, UCX with ESBL E coli. CXR with bl pleural effusions, edema. CT chest with moderate sized bl pleural effusions, R>L; extensive bl atelectasis. He was admitted with acute CHF and COPD exacerbation. He also c/o dysuria and has been started on meropenem for ESBL E coli. ID consulted 09/05. I did order a UA with micro to assess urine WBC. He is reporting recurrent UTIs since a procedure in May, which isnt entirely clear to me as to which procedure/surgery. Should have urology evaluation. He did not report any other pains. His last abdominal imaging was back in May. Would consider imaging to assess for an ongoing source/nidus in urinary tract. # Dysuria, urinary frequency # ESBL E coli in UCx # Recurrent UTIs # Urinary retention self-catheterizes at home # BPH s/p TURP - agree with urology evaluation - would obtain CTAP w/ IV to rule out any other structural abnormalities or any sources/nidus for recurrent infections (ie stones) - I ordered urinalysis with micro - continue meropenem - will see with telepresenter tomorrow Will continue to follow. If questions or concerns, contact via [employer] or Infectious Disease Call Center . Kayleen Buchanan MD [facility], Division of Infectious Diseases Consultation Information This patient recommendation is based on a telemedicine consult request which was completed asynchronously through chart review and information provided by the primary physician. The patient was not seen or examined today. The evaluation is consultative in nature and all patient care and treatment decisions can either be accepted or rejected by the patient's primary hospital-based treating physician using their own independent medical judgment for their patient. Front End Manager contact information: Please call ID Connect Call Center . (Phone Number For Physician Use Only) Time Spent Reviewing Chart: 31+ minutes History of Present Illness Reason for Consultation: recurrent UTIs,suspect chronic prostatitis Attending Physician: Maria Teresa Moses MD History of Present Illness 79yo M with h/o HFrEF, s/p biV ICD, CAD s/p PCI 2010, pafib, COPD/asthma, chronic hypoxic respiratory failure/ROSE on supplemental O2 and bipap, spinal stenosis, BPH, intermittent self cath, Parkinsonism, depression, chronic pain syndrome, neuropathy who presented on 09/04 with worsening POWERS x 3-4 days. He was recently admitted 08/12-08/23 with CHF and PNA (was tx with meropenem->erta and vanc->LZD, seems like 7d course). Since then, hes had increasing SOB, felt w inded going to the bathroom and felt better with 3 L NC. In the ER, he was afebrile, hypoxic to 87% on RA. Initial labs with WBC 11.52, Cr 0.87, LFTs wnl. BNP elevated. RPP negative. UA from 09/01 has negative nitrates, 1+ leuk, UCX with ESBL E coli. CXR with bl pleural effusions, edema. CT chest with moderate sized bl pleural effusions, R>L; extensive bl atelectasis. He was admitted with acute CHF and COPD exacerbation. He also c/o dysuria and has been started on meropenem for ESBL E coli. ID consulted 09/05. I do not have a telepresenter, however, I did call his room and talk to him over the phone. He says that ever since his surgery in May (which Im still unclear as to which surgery), he has had recurrent episodes of dysuria and urinary frequency and has had multiple courses of abx. Says he's been admitted 5 times and each time he had been treated. Sx resolve after completion of abx, but then recur 7 days later. Current episode started on 08/31. He was seen by cardiology outpatient and had UA/UCx done at that time due to symptoms. He does not have back pain or abdominal pain. Does have SOB complaints noted above. He has been self-cathing for 10yrs every other day. He has loose stools related to using laxatives recently. Allergies Allergy/AdvReac Type Severity Reaction Status Date / Time bee venom protein (honey bee) Allergy Severe SWELLING, Verified 09/01/24 11:16 SOB Penicillins Allergy Severe SWELLING, Verified 09/01/24 11:16 DIFFICULTY BREATHING lidocaine Allergy Mild RASH Verified 09/01/24 11:16 gabapentin Allergy Unknown Pt denies, Verified 09/01/24 11:16 uncertain icosapent ethyl Allergy Unknown On med Verified 09/01/24 11:16 list / [facility] pregabalin Allergy Unknown On med Verified 09/01/24 11:16 [facility] cefdinir AdvReac Severe Vomiting Verified 09/01/24 11:16 ertapenem AdvReac Mild Vomiting Verified 09/05/24 13:27 hydrocodone AdvReac Mild nausea Verified 09/01/24 11:16 oxycodone AdvReac Mild nausea-SLOW Verified 09/01/24 11:16 RELEASE IS OK Home Medications Medication Instructions Recorded Confirmed Type albuterol sulfate 90 mcg/actuation 2 puffs inhalation Q6H PRN 12/01/18 09/04/24 History aerosol inhaler Shortness Of Breath Or Wheezing bupropion HCl 100 mg tablet 100 mg PO BID 12/01/18 09/04/24 History docusate sodium 100 mg capsule 100 mg PO BID 12/01/18 09/04/24 History finasteride 5 mg tablet 5 mg PO QAM 12/01/18 09/04/24 History aspirin 81 mg tablet,delayed 81 mg PO QAM 12/21/18 09/04/24 History release sennosides 8.6 mg tablet 8.6 mg PO BID 12/21/18 09/04/24 History white petrolatum-mineral oil 56.8 1 applic ophthalmic (eye) HS 12/21/18 09/04/24 History %-42.5 % eye ointment (Refresh Lacri-Lube) pantoprazole 40 mg tablet,delayed 40 mg PO BID 03/10/21 09/04/24 History release tiotropium 2.5 mcg-olodaterol 2.5 2 puff inhalation QAM 12/02/22 09/04/24 History mcg/actuation mist for inhalation (Stiolto Respimat) cetirizine 10 mg tablet 10 mg PO QDB 05/17/23 09/04/24 History epinephrine 0.3 mg/0.3 mL 0.3 mg IM DIRECTED PRN sEVERE 07/08/23 09/04/24 History injection, auto-injector ALLERGIC REACTION bumetanide 1 mg tablet 1 mg PO QAM #90 tabs 10/10/23 09/04/24 Rx potassium chloride 20 mEq 20 meq PO BID #200 tabs 10/10/23 09/04/24 Rx tablet,extended release apixaban 5 mg tablet (Eliquis) 5 mg PO BID #180 tabs 11/23/23 09/04/24 Rx vitamins A,C,Z-siql-cnqinz 4,296 1 cap PO BID 03/27/24 09/04/24 History mcg-226 mg-90 mg capsule (PreserVision AREDS) aluminum hydroxide gel 320 mg/5 mL 960 mg PO DAILY PRN Heartburn 06/16/24 09/04/24 History oral suspension oxycodone 10 mg tablet,crush 10 mg PO BID 06/16/24 09/04/24 History resistant,extended release 12 hr (OxyContin) metoclopramide HCl 5 mg tablet 5 mg BID 07/02/24 09/04/24 History ipratropium 0.5 mg-albuterol 3 mg 3 ml NEB Q6R PRN #0 mL 07/31/24 09/04/24 Rx (2.5 mg base)/3 mL nebulization soln polyethylene glycol 3350 17 gram 17 g PO BID #0 ea 07/31/24 09/04/24 Rx oral powder packet (Miralax) acetaminophen 325 mg tablet 650 mg PO Q6H PRN Pain/Fever 08/12/24 09/04/24 History (Tylenol) nitroglycerin 0.4 mg sublingual 0.4 mg sublingual DIRECTED PRN 08/12/24 09/04/24 History tablet Chest Pain pramipexole 0.125 mg tablet 0.375 mg PO QAM 08/12/24 09/04/24 History carvedilol 3.125 mg tablet 3.125 mg PO BIDM #60 tabs 08/23/24 09/04/24 Rx spironolactone 25 mg tablet 25 mg PO DAILY #30 tabs 08/23/24 09/04/24 Rx Patient History Medical History Complicated urinary tract infection Sepsis History of venous thromboembolism PAT (paroxysmal atrial tachycardia) Cardiomyopathy Paroxysmal atrial fibrillation HFrEF (heart failure with reduced ejection fraction) Parkinsonism Presence of combination internal cardiac defibrillator (ICD) and pacemaker first placed 2010 @ [facility] replaced in 2014 & 2021 @ [facility]--biventricular [employer]. reports last check 11/25/22. History of urinary self-catheterization self caths every other night CAD (coronary artery disease) s/p stent 2010 Sleep apnea bipap BPH loc w urin obs/LUTS Atrial tachycardia CHF (congestive heart failure) Tachycardia Pressure ulcer of right heel, stage 4 Benign essential hypertension Ischemic cardiomyopathy Euvolemic at 11/23/22 cardio appt Elevated INR Near syncope Tachycardia Leg pain Elevated lactic acid level Elevated INR Cellulitis Unstageable pressure ulcer of right heel Unstageable pressure ulcer of left heel Hypoxia Vomiting Acute kidney injury Elevated troponin Acute kidney failure Acute UTI Sepsis Severe sepsis Encounter for pre-operative examination Intrinsic minus hand POWESR (dyspnea on exertion) Preop testing Episode of confusion Right upper quadrant abdominal pain Hand laceration Dog bite Chest pain Cellulitis of left arm Peripheral arterial disease Hypertension Tremor ICD (implantable cardioverter-defibrillator) in place Neuropathy Complex sleep apnea syndrome NYHA class 4 acute on chronic systolic heart failure History of kidney stones Emphysema lung Legally blind Chronic back pain History of DVT of lower extremity 2010 Macular degeneration Hearing deficit Depression Migraine Myocardial Infarction 10/2010--follows with Dr. Abreu Pulmonary embolism 1992 and 2010 after heart attack--follows with Dr. Abreu Asthma inhaler prn Surgical History Presence of biventricular automatic cardioverter/defibrillator (AICD) S/P epidural steroid injection History of foot surgery plantar fasciitis History of open reduction and internal fixation (ORIF) procedure left foot--hardware removed History of prostate biopsy x3--precancerous, just monitoring for now History of prostate surgery 07/2016--greenlight prostate vaproization History of cystoscopy multiple History of colonoscopy with polypectomy History of esophagogastroduodenoscopy (EGD) History of right inguinal hernia repair x3 History of Khari fundoplication History of cholecystectomy History of tooth extraction History of eye surgery right--macular degeneration History of bilateral cataract extraction History of cardiac cath 10/2010 @ [facility]--1 stent placed Family History Son Family history of diabetes mellitus Other Family history non-contributory No family history of adverse response to anesthesia Social History Smoking Status: Never smoker Tobacco Type: Cigarettes Second Hand Exposure: No; Do You Dip or Chew Tobacco: No; Hx Alcohol Use: No Hx Substance Use: No Preferred Language: Norwegian Communication Ability: Effective Visual Impairment: Partially Limited Hearing Ability: Use of Hearing Aid An/Ssn 2 4 Operator Required: No Beliefs That Will Affect Care: None marital status: Current Living Situation: Spouse Current Living Situation Comment: with Araceli current occupational status: retired How many Children do You have: 1 How many Children do You have Comment: son , able to assist with care as needed Feels Safe at Home: Yes Diet: low salt and regular Assistive Devices: BiPap, Oxygen - at Night, Scooter/Electric Scooter, Walker and Wheelchair Review of System 10-point review of systems reviewed and are negative except for as above. Results & Data Vital Signs (Past 12 Hours) Vital Signs Pulse Pulse Resp Pulse Ox O2 Del Method O2 Flow Rate 09/05/24 14:15 92 H 09/05/24 13:25 71 18 95 Nasal Cannula 2 09/05/24 09:00 Nasal Cannula 2 09/05/24 07:40 86 09/05/24 07:35 18 95 Nasal Cannula 3 Laboratory Results Labs reviewed. Diagnostic Findings Imaging reviewed.
[2024-09-05] MEDS: FUROSEMIDE 40 MG/4 ML VIAL IV SCH (16:56)
[2024-09-05 17:00] LABS: Appearance Urine Clear (Clear); Bacteria Urine Automated None Seen (None Seen); Bilirubin Urine Negative (Negative); Blood Urine Negative (Negative); Cast Urine Automated 0-2 /lpf (0-2); Color Urine Yellow; Epithelial Cell Urine Auto 0-2 /hpf (0-2); Glucose Urine UA Negative (Negative); Ketones Urine Negative (Negative); Leukocyte Esterase Urine 2+ (Negative); Nitrite Urine Negative (Negative); Protein Urine Negative (Negative); RBC Urine Automated 0-2 /hpf (0-2); Specific Gravity Urine 1.013 (1.000-1.030); Urobilinogen Urine Negative (Negative); WBC Urine Automated 21-50 /hpf (0-5); pH Urine 5.5 (4.5-7.5)
[2024-09-05] MEDS: OPTIRAY 320 100ml IV ONE (20:48)
[2024-09-05] MEDS: [UNRECOGNIZED DRUG - OTHER] OP SCH (21:52)
[2024-09-06] MEDS: ONDANSETRON INJ 2 MG/ML 2 ML VIAL IV PRN (00:36)
--- NOTE | 2024-09-06 03:58 | CT Scan Report ---
Exam(s): CT ABDOMEN + PELVIS With Contrast IV Amt: 93 ml optitray 320 EXAM: CT Abdomen and Pelvis With Intravenous Contrast CLINICAL HISTORY: Reason for exam: recurrent UTI,assess for obstruction. TECHNIQUE: Axial computed tomography images of the abdomen and pelvis with intravenous contrast. CTDI is 27.15 mGy and DLP is 1413.95 mGy-cm. Automated exposure control was utilized for the study. A dose lowering technique was utilized adhering to the principles of ALARA. CONTRAST: Patient received 93 ml optitray 320 of IV contrast COMPARISON: No relevant prior studies available. FINDINGS: Lung bases: Dependent airspace disease at the lung bases. Findings can be seen with compressive atelectasis. Partially visualized 2.5 cm lucency within the left lung base which may relate to a cavity. Findings are seen with paraseptal emphysema. Pleural space: Moderate right and small left pleural effusions. Heart: Cardiomegaly. Mediastinum: Moderate esophageal hiatal hernia. ABDOMEN: Liver: Unremarkable. No mass. Gallbladder and bile ducts: Cholecystectomy changes. No ductal dilation. Pancreas: Unremarkable. No mass. No ductal dilation. Spleen: Splenic cyst measuring 1.7 cm. ACR White Paper guidelines (Karyn, et al. JACR 2013; 10(11):833-9) suggest no follow-up is necessary. Adrenals: Unremarkable. No mass. Kidneys and ureters: Simple bilateral renal cysts. No follow-up of these simple cysts is necessary. Nonobstructive calculus within the interpolar right kidney measuring up to 5 mm. No evidence of hydronephrosis. Stomach and bowel: No evidence of bowel obstruction. No mucosal thickening. PELVIS: Appendix: Normal appendix. Bladder: Mild distention of the urinary bladder without suspicion of obstruction. The bladder measures 12.8 x 10.1 x 9.5 cm with a total volume of 643.6 ml. Reproductive: Unremarkable as visualized. ABDOMEN and PELVIS: Intraperitoneal space: Unremarkable. No free air. No significant fluid collection. Bones/joints: Degenerative changes in the spine. No acute fracture. No dislocation. Soft tissues: Bilateral inguinal hernia containing fat. Vasculature: Atherosclerotic disease. No abdominal aortic aneurysm. Lymph nodes: Unremarkable. No enlarged lymph nodes. Tubes, lines and devices: Partially visualized pacemaker leads. IMPRESSION: 1. Dependent airspace disease at the lung bases. Findings can be seen with compressive atelectasis. 2. Moderate right and small left pleural effusions. 3. Partially visualized 2.5 cm lucency within the left lung base which may relate to a cavity. 4. Moderate esophageal hiatal hernia. 5. Mild distention of the urinary bladder without suspicion of obstruction. The bladder measures 12.8 x 10.1 x 9.5 cm with a total volume of 643.6 ml. 6. No evidence of hydronephrosis. 7. No other acute findings. 8. Incidental findings as described. Electronically signed by: Tavo Maldonado MD 09/06/24 03:57 AM
[2024-09-06 06:46] LABS: Basophils # (auto) 0.02 K/uL (0.00-0.20); Basophils % (auto) 0.2 %; Eosinophils % (auto) 2.1 %; Hematocrit (blood only) 33.3 % (42.0-52.0); Hemoglobin 10.6 g/dl (14.0-18.0); Immature Granulocytes # (auto) 0.04 K/uL (0.01-0.20); Immature Granulocytes % (auto) 0.4 %; Lymphocytes % (auto) 25.7 %; Mean Corpuscular Hemoglobin 27.3 pg (25.0-34.0); Mean Corpuscular Hgb Conc 31.8 g/dL (32.0-36.0); Mean Corpuscular Volume 85.8 fL (80.0-100.0); Mean Platelet Volume 10.1 fL (9.4-12.4); Monocytes # (auto) 0.78 K/uL (0.11-0.59); Monocytes % (auto) 8.4 %; Neutrophils # (auto) 5.89 K/uL (1.40-6.50); Neutrophils % (auto) 63.2 %; Platelet Count 407 K/uL (130-400); RDW Coefficient of Variation 15.8 % (11.5-14.5); RDW Standard Deviation 48.6 fL (36.4-46.3); Red Blood Count 3.88 M/uL (4.70-6.10); White Blood Count 9.33 K/ul (4.8-10.8)
[2024-09-06 07:18] LABS: BUN Creatinine Ratio 32.4 (10-20); Calcium 9.5 mg/dl (8.6-10.3); Creatinine Clr Calc Pharmacy 67.6 ml/min; Magnesium 2.3 mg/dl (1.7-2.4); Potassium 4.2 mmol/L (3.5-5.1)
[2024-09-06] MEDS ORDERED: ALBUT/IPRATROP 3MG/0.5MG NEB 3 ML VIAL NEB PRN (08:14)
--- NOTE | 2024-09-06 08:14 | Pulmonology Progress Note ---
Date of Service September 06, 2024 Assessment & Plan (1) Pleural effusion due to CHF (congestive heart failure): (2) COPD (chronic obstructive pulmonary disease): COPD type: COPD with acute exacerbation Qualified Code(s): J44.1 - Chronic obstructive pulmonary disease with (acute) exacerbation (3) Acute hypoxemic respiratory failure: Plan Impression: 79-year-old male with heart failure with reduced ejection fraction (EF 25%) admitted with bilateral pleural effusions and hypoxemic respiratory failure. He is somewhat better with diuresis. He has a multitude of medical problems including diabetes, foot ulcer, heart failure, COPD, and parkinsonism. Recommendations: 1. Bilateral pleural effusions: As per previous note, the recently published TAPIT trial would not support thoracentesis for management of pleural effusions associated with systolic heart failure. He is tolerating diuresis and would continue for now. If diuresis plateaus and the patient remains symptomatic, could consider consulting with radiology for potential thoracentesis at that time. Patient needs to hold anticoagulation if intervention is entertained. 2. History of COPD: No evidence of COPD exacerbation. Change bronchodilators to as needed. I see no indication for steroids but will defer to the primary admitting service. Continue Anoro 3. Hypoxemia: Secondary to fluid overload. He has been diuresing was 2 L negative yesterday. Oxygen requirement is stabilizing he appears more comfortable. Initiate incentive spirometry. Out of bed to chair as tolerated. 4. Had a long discussion with the patient and his . They understand that from a clinical perspective he is failing. He has had 5 hospitalizations in the last 5 months and appears to be unable to remain out of the hospital for an extended period of time. Given his multitude of medical issues, reexamining his CODE STATUS and goals of therapy would be highly appropriate. Based on our discussion, the patient appears to have limited insight into the severity of his underlying illnesses and advanced age. Pulmonary will sign off. Feel free to contact us with questions or concerns Admission and Anticipated Discharge Date Admission Date: September 04, 2024 Subjective Patient seen and examined. EMR reviewed. Discussed with patient and at bedside. Patient feels his breathing is a little bit better with diuresis. He did develop some nausea and emesis last evening of unclear etiology. He is able to tolerate a diet this morning. Review of Systems 2 Review of Systems: All systems reviewed & are unremarkable except as noted in Subjective Physical Exam 2 Constitutional: WD/WN, vitals as above Neck: trachea midline, no thyromegaly Respiratory: no respiratory distress, no labored breathing, no cough and not tachypneic Auscultation: + diminished lung sounds Decreased bilateral bases with dullness to percussion Cardiovascular: RRR, no murmur, no edema Gastrointestinal (Abdomen): normal bowel sounds, soft, nontender, no hepatosplenomegaly Musculoskeletal: Extremities: extremities normal to inspection Skin: no rashes, warm and dry Neurologic: Nonfocal exam Lymphatic: no cervical lymphadenopathy Results & Data Results & Data Vital Signs (Past 12 Hours) Vital Signs Temp Pulse Pulse Resp BP BP Pulse Ox 09/06/24 07:39 80 20 98 09/06/24 07:30 36.4 C L 92 H 20 129/87 97 09/06/24 07:22 89 09/06/24 03:10 36.3 C L 90 20 106/70 92 09/06/24 00:59 90 22 95 09/05/24 22:59 36.3 C L 99 H 18 125/86 97 09/05/24 22:19 89 09/05/24 22:00 O2 Del Method O2 Flow Rate 09/06/24 07:39 Nasal Cannula 2 09/06/24 07:30 Nasal Cannula 2 09/06/24 07:22 09/06/24 03:10 Nasal Cannula 09/06/24 00:59 Nasal Cannula 2 09/05/24 22:59 Nasal Cannula 3 09/05/24 22:19 09/05/24 22:00 Nasal Cannula 2 Laboratory Results 09/06/24 06:23 09/06/24 06:23 Diagnostic Findings No new imaging PG Care Time/CCT Total # of Minutes Spent Total Time Spent with Patient: Total time spent is greater than 50% in coordination of care (as documented) at patient's floor/unit and/or counseling patient: Coding Level of Care Code 85015 SUB INP/OBS CARE 2/35MIN Diagnoses Pleural effusion due to CHF (congestive heart failure) I50.9 COPD (chronic obstructive pulmonary disease) J44.1 COPD type: COPD with acute exacerbation Acute hypoxemic respiratory failure J96.01
[2024-09-06] MEDS: MEROPENEM 500 MG in SYRINGE 0 ML IV SCH ×2 (11:33→17:56)
--- NOTE | 2024-09-06 12:20 | Infectious Disease Progress Nt ---
Date of Service September 06, 2024 Assessment & Plan (1) Infection due to ESBL-producing Escherichia coli: (2) Recurrent UTI: (3) History of urinary self-catheterization: Plan 79yo M with h/o HFrEF, s/p biV ICD, CAD s/p PCI 2010, pafib, COPD/asthma, chronic hypoxic respiratory failure/ROSE on supplemental O2 and bipap, spinal stenosis, BPH s/p GLTURP in 2016 and TUIBNC 2018, stricture/contracture with severe urinary retention, intermittent self-cath, Parkinsonism, depression, chr onic pain syndrome, neuropathy who presented on 09/04 with worsening POWERS x 3-4 days. He was recently admitted 08/12-08/23 with CHF and PNA (was tx with meropenem->erta and vanc->LZD, seems like 7d course). Also with dysuria/freq since 08/31. In the ER, he was afebrile, hypoxic to 87% on RA. Initial labs with WBC 11.52, Cr 0.87, LFTs wnl. BNP elevated. RPP negative. UA from 09/01 has negative nitrates, 1+ leuk, UCX with ESBL E coli. CXR with bl pleural effusions, edema. CT chest with moderate sized bl pleural effusions, R>L; extensive bl atelectasis. He was admitted with acute CHF and COPD exacerbation. He also c/o dysuria and has been started on erta ->meropenem for ESBL E coli (was changed since he developed n/v). ID consulted 09/05. UA with 21-50 WBC. CTAP with dependent ASD could be compressive atelectasis, moderate right and small left pleural effusions, partially visualized lucency in left lung joselin could be a cavity, mild distention of urinary bladder, no hydronephrosis. I was unable to see patient today since our camera is not functional. CTAP did not have any acute abnormalities aside from known urinary retention. Urology to see him outpatient. When I spoke to him over the phone yesterday, he did not have any specific c/o pain aside from dysuria. Will treat him for complicated UTI. The urinary retention likely also contributing to recurrence. # Recurrent UTI 2/2 ESBL E coli # Urinary retention self-catheterizes at home # BPH s/p TURP - I increased meropenem to 500mg IV q6h - when ready for discharge, can change abx to bactrim 1DS bid - will treat for 10-14 days of abx starting 09/04 - urology follow up Will discontinue active follow up at this time. Please do not hesitate to reconsult the Infectious Diseases service as needed. Kayleen Buchanan MD [facility], Division of Infectious Diseases [employer]: [phone] Admission and Anticipated Discharge Date Admission Date: September 04, 2024 Subjective This patient recommendation is based on a telemedicine consult request which was completed asynchronously through chart review and information provided by the primary physician. The patient was not seen or examined today. The evaluation is consultative in nature and all patient care and treatment decisions can either be accepted or rejected by the patient's primary hospital-based treating physician using their own independent medical judgment for their patient. Time Spent Reviewing Chart: 31+ minutes Afebrile. Results & Data Vital Signs (Past 12 Hours) Vital Signs Temp Pulse Pulse Resp BP BP Pulse Ox 09/06/24 10:59 09/06/24 10:25 36.4 C L 86 20 119/70 96 09/06/24 07:39 80 20 98 09/06/24 07:30 36.4 C L 92 H 20 129/87 97 09/06/24 07:22 89 09/06/24 03:10 36.3 C L 90 20 106/70 92 09/06/24 00:59 90 22 95 O2 Del Method O2 Flow Rate 09/06/24 10:59 Nasal Cannula 2 09/06/24 10:25 Nasal Cannula 2 09/06/24 07:39 Nasal Cannula 2 09/06/24 07:30 Nasal Cannula 2 09/06/24 07:22 09/06/24 03:10 Nasal Cannula 09/06/24 00:59 Nasal Cannula 2 Laboratory Results Labs reviewed. Diagnostic Findings Imaging reviewed.
--- NOTE | 2024-09-06 14:31 | Hospitalist Progress Note ---
Date of Service September 06, 2024 Assessment & Plan (1) HFrEF (heart failure with reduced ejection fraction): (2) Acute hypoxemic respiratory failure: (3) Recurrent UTI: (4) Paroxysmal atrial fibrillation: Plan This patient is a 79-year-old male with a history of HFrEF, biventricular ICD, CAD s/p stent RCA 2010,, PAF on Eliquis, COPD/asthma, chronic hypoxic respiratory failure/ROSE on supplemental O2 and BiPAP, neuropathy, spinal stenosis, ambulatory dysfunction, VTE, BPH, intermittent self-catheterization, parkinsonism, depression, chronic pain syndrome, GERD, who presents with acute on chronic HFrEF and COPD exacerbation with acute on chronic hypoxemic respiratory failure. #Acute on chronic hypoxemic respiratory failure/acute on chronic HFrEF/acute exacerbation of COPD/asthma-BNP elevated, CXR consistent with heart failure. However, his weight is not up from previous. He also has some component of wheezing and COPD exacerbation. His Entresto was recently discontinued and his carvedilol was recently lowered in dose due to hypotension. Pulse ox 87% on room air. Typically he uses 3L O2 at night with BiPAP but none during the day. Improving overall, Net neg 3L I/Os, weaned off O2 to room air, diuresing, and renal function stable, peripheral edema improving. 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 Pulm saw and does not think pt needs steroids or thoracentesis - Continue Lasix 20 Mg IV twice daily, continue spironolactone - Continue carvedilol at current dose which was recently lowered to 3.125 Mg p.o. twice daily and increase if has tachycardia and if BP can tolerate - Consult cardiology for further recommendations appreciated - dc Solu-Medrol, but continue scheduled DuoNebs every 6 hours, and maintenance inhaler - can resume Eliquis as no thoracentesis needed - Continue supplemental O2 to keep pulse ox greater than 90% - Continue strict I's and O's, daily weights, low-sodium diet #CAD s/p stent RCA 2010/PAF on Eliquis-he had some chest pressure at rest on 2 nights the week prior to admission but none currently and troponin negative, no ischemic changes on ECG. Nuclear stress test on 08/31/2024 showed large in size, moderate to severe intensity fixed MPI defect involving entire apex, inferior, inferior lateral, distal anterior, and inferior septal myocardium with small amount of reversibility involving mid anterior and anterior septum-overall low risk of ischemia. - Consult cardiology for any further input appreciated - Continue aspirin, Eliquis, carvedilol - He is not on a statin-unclear reason #BPH/intermittent self-catheterization/history of recurrent UTI-with dysuria prior to admission. Self catheterizes every other night for history of urethral stricture. UA and urine culture abnormal from 09/01 as an outpatient with ESBL E. coli which was recurrent. Symptoms are now improved with treatment with ertapenem however he developed nausea/vomiting he thinks from ertapenem. This is now resolved with stopping ertapenem. ID recommended CT Abd/pel to eval for obstruction or nidus of infection-negative for acute. Suspect he needs longer course of treatment for prostatitis. Appreciate ID consult and urology consults - Continue self-catheterization every other night - Needs outpatient cystoscopy with urology - Continue finasteride -f/u repeat urine cx ordered by ID - Continue meropenem and can transition to po Bactrim DS bid on discharge--> ID recommends 10-14 days but I would prefer 4 week course of chronic prostatitis--> follow renal function and potassium once on Bactrim #Chronic pain syndrome/neuropathy/ambulatory dysfunction/chronic pain syndrome- no acute issues. He can walk short distances with a walker but uses a scooter or wheelchair for mobility - Continue home OxyContin, pramipexole - Consult PT/OT appreciated-recommend rehab but pt and want to go home with #Bilateral pressure ulcers on heels-stage I on left and stage II on right with s cant drainage, no definite signs of infection - Receiving ertapenem for UTI but no real need for treatment for infection of heel ulcers - Consult wound care, offload pressure #GERD/gastroparesis-having nausea may be related to ertapenem-now resolved with stopping ertapenem - Continue Protonix, Reglan - prn IV Zofran DVT prophylaxis-has a history of VTE. Continue Eliquis, SCDs Disposition-continued stay on PCU,possible dc to home with home health in 1-2 more days Admission and Anticipated Discharge Date Admission Date: September 04, 2024 Subjective Pt had nausea and small amount of vomiting again overnight but today overall feeling much better. Less SOB, is not requiring supplemental O2, is eating. Was straight cathed for 675 mL this AM. Tele with paced rhythm, rates 80-90s Physical Exam Constitutional: WD/WN, vitals as above Respiratory: Auscultation: + diminished lung sounds (Bibasilar but improving); no rhonchi and no wheezes Cardiovascular: Rate/Rhythm: regular rate and regular rhythm Heart Sounds: no murmur Extremities: + edema (Trace pitting edema of the legs to the knees bilaterally,improving) Chest (Breasts): Chest: + pacemaker (Left anterior chest wall) Gastrointestinal (Abdomen): normal bowel sounds, soft, nontender, no hepatosplenomegaly Musculoskeletal: Extremities: extremities normal to inspection; no cyanosis and no clubbing Skin: no rashes, warm and dry Neurologic: moves all extremities and awake; no focal motor deficits Psychiatric: A+Ox3, euthymic affect Results & Data Results & Data Vital Signs (Past 12 Hours) Vital Signs Temp Pulse Pulse Resp BP BP Pulse Ox 09/06/24 10:59 09/06/24 10:25 36.4 C L 86 20 119/70 96 09/06/24 07:39 80 20 98 09/06/24 07:30 36.4 C L 92 H 20 129/87 97 09/06/24 07:22 89 09/06/24 03:10 36.3 C L 90 20 106/70 92 O2 Del Method O2 Flow Rate 09/06/24 10:59 Nasal Cannula 2 09/06/24 10:25 Nasal Cannula 2 09/06/24 07:39 Nasal Cannula 2 09/06/24 07:30 Nasal Cannula 2 09/06/24 07:22 09/06/24 03:10 Nasal Cannula Laboratory Results BMP, magnesium, UA reviewed Diagnostic Findings CT A/P reviewed PG Care Time/CCT Total # of Minutes Spent Total Time Spent with Patient: Total time spent is greater than 50% in coordination of care (as documented) at patient's floor/unit and/or counseling patient: Coding Level of Care Code 02254 SUB INP/OBS CARE 3/50MIN Diagnoses HFrEF (heart failure with reduced ejection fraction) I50.20 Acute hypoxemic respiratory failure J96.01 Recurrent UTI N39.0 Paroxysmal atrial fibrillation I48.0
--- NOTE | 2024-09-06 17:25 | Cardiology Progress Note ---
Date of Service September 06, 2024 Assessment & Plan (1) Pleural effusion due to CHF (congestive heart failure): Plan: By physical exam and also by the recorded 24-hour net fluid balance of just over 2 L the patient appears improved. However, he still has significant pleural effusion. What is recorded today thus far is a slightly positive fluid balance but I suspect not all the data has been entered as of yet. Also, his weight is up compared to prior which we would not expect if he actually diuresed 2 L. Should have dropped by 2 kg (approximately 4+ pounds.). I think that he should have standing bedside weights each morning since he is now up to the chair. However, this will require some assistance. Continue diuresis with IV Lasix. Continue to follow his renal function carefully. Thankfully, his renal function improved from yesterday although it is not yet back to baseline. We will continue to evaluate his volume status and the efficacy of our diuresis. We need to send him home euvolemic and we may need to alter his home regimen to prevent recurrent volume overload. I do think that the pleural effusions will not completely resolve in the short-term. He had groundglass opacities in addition to the COPD and some scarring which make it more difficult to fully clear pleural effusions in a expedited manner. Ideally, patient would be euvolemic by the weekend and we could therefore discharge him so that he could make it to his outpatient appointments next week. Otherwise, we are going to continue on the current regimen and reassess daily to achieve our target of euvolemia. Admission and Anticipated Discharge Date Admission Date: September 04, 2024 Subjective I saw the patient in his room this afternoon. I have reviewed the pulmonary progress note. Patient diuresed better overnight. He tells me he feels his breathing is little bit better. He has no chest pain. No longer requiring oxygen. He tells me that he refused to go to [facility] at discharge because when he went there before he just came back full of fluid. He says other than the physical therapy they just left him to sit in his chair all day. He does have outpatient appointment scheduled with wound care and urology next week. Review of Systems Review of Systems: Negative except as per HPI Physical Exam Constitutional: Chronically ill-appearing elderly male. Sitting up in the chair asleep but arousable. Neck: No JVD Respiratory: Bilateral basilar dullness. Scattered crackles about half the way up. Poor but improved air movement today. Cardiovascular: Irregular rhythm with a normal rate. Grade 1-2/6 systolic murmur at the apex. Trace to 1+ bilateral lower extremity edema. Musculoskeletal: no cyanosis or clubbing, extremities motor strength 5/5 Neurologic: Cognition is intact. Speech is fluent. Baseline tremor. Diminished hearing. Contractures of bilateral hands. Psychiatric: A+Ox3, euthymic affect Results & Data Vital Signs (Past 12 Hours) Vital Signs Temp Pulse Pulse Resp BP BP Pulse Ox 09/06/24 15:05 36.4 C L 90 19 118/82 91 09/06/24 14:55 98 H 09/06/24 10:59 09/06/24 10:25 36.4 C L 86 20 119/70 96 09/06/24 07:39 80 20 98 09/06/24 07:30 36.4 C L 92 H 20 129/87 97 09/06/24 07:22 89 O2 Del Method O2 Flow Rate 09/06/24 15:05 Room Air 09/06/24 14:55 09/06/24 10:59 Nasal Cannula 2 09/06/24 10:25 Nasal Cannula 2 09/06/24 07:39 Nasal Cannula 2 09/06/24 07:30 Nasal Cannula 2 09/06/24 07:22 PG Care Time/CCT Total # of Minutes Spent Total Time Spent with Patient: Total time spent is greater than 50% in coordination of care (as documented) at patient's floor/unit and/or counseling patient: Coding Level of Care Code 39378 SUB INP/OBS CARE 2/35MIN Diagnoses Pleural effusion due to CHF (congestive heart failure) I50.9
[2024-09-07 08:52] LABS: Calcium 9.3 mg/dl (8.6-10.3); Creatinine Clr Calc Pharmacy 74.9 ml/min; Magnesium 2.3 mg/dl (1.7-2.4); Potassium 4.2 mmol/L (3.5-5.1)
--- NOTE | 2024-09-07 09:13 | XRay Report ---
XR chest 1V portable CLINICAL HISTORY: CHF COMPARISON STUDY: 09/04/2024 FINDINGS: Single view chest is unchanged demonstrating cardiomegaly, pulmonary vascular congestion, a nd bilateral pleural effusions with either associated compressive atelectasis or basilar pneumonitis. No new or adverse change has developed. Pacemaker/defibrillator remains in similar position. IMPRESSION: Stable exam demonstrating findings of CHF as described. Basilar pneumonia not excluded. ACT 112: Negative or not required by law. Electronically signed by: Rhonda Sterling M.D. 09/07/2024 9:11 AM
[2024-09-07] MEDS: FUROSEMIDE 40 MG/4 ML VIAL IV SCH (09:55)
--- NOTE | 2024-09-07 11:12 | Hospitalist Progress Note ---
Date of Service September 07, 2024 Assessment & Plan (1) HFrEF (heart failure with reduced ejection fraction): Plan: Acute on chronic systolic CHF present on admission. Improving with parenteral Lasix therapy. Chest x-ray done today, September 07, looks better with no overt CHF and small bilateral pleural effusions. Appreciate cardiology consultation and recommendations. Telemetry. (2) Acute hypoxemic respiratory failure: Plan: Present on admission. Acute on chronic respiratory failure. Will wean oxygen down to his usual rate. (3) Recurrent UTI: Plan: ESBL E. coli isolated. He remains on meropenem, infectious disease recommendations appreciated. He will be discharged on oral Bactrim. He self catheterizes and this is the likely source of his infection (4) Paroxysmal atrial fibrillation: Plan: Currently in paced rhythm. Continue Eliquis therapy. Telemetry. (5) Coronary artery disease: Plan: Stable. Continue current medical management (6) COPD (chronic obstructive pulmonary disease): Plan: Exacerbated by CHF. Continue current management. Improving (7) Opioid dependence: Plan: Continue chronic pain management with usual home medications Plan He refuses to consider rehab placement. He probably will be discharged Wednesday, September 09, with home health. Admission and Anticipated Discharge Date Admission Date: September 04, 2024 Subjective Alert and oriented. No distress. Chest x-ray done today, September 07, looks better with less CHF and bilateral pleural effusions have decreased in size and hopefully will eventually resolve. Creatinine stable at 1.1. He remains on Lasix 40 mg IV twice daily. He also remains on the meropenem for the ESBL E. coli UTI and will go home on oral Bactrim therapy Review of Systems 2 Review of Systems: Constitutionalno fever or chills ENTno blurred vision, no double vision, no epistaxis, no sore throat Respiratoryno cough, no wheezing, no shortness of breath at rest. He does have dyspnea with exertion Cardiacno palpitations, no chest pain, no syncope Sha nausea, vomiting, diarrhea, melena, hematochezia GUno urinary retention, no urinary incontinence, no dysuria, no hematuria Musculoskeletalno joint pain, no muscle tenderness Skinno bruising, no rashes, no pruritus Neurono isolated weakness, no paresthesia, no weakness Psychno depression, no anxiety Physical Exam 2 Physical Exam: General-alert and oriented x3, no fever, no chills HEENT-head atraumatic and normocephalic, pupils equal and reactive to light, extraocular muscles intact Neck-no lymphadenopathy or thyromegaly, trachea midline Chest-no audible inspiratory rales. Dullness at both bases. No wheezing Cardiac-regular rate and rhythm, normal S1 and S2 Abdomen-normal bowel sounds, no hepatosplenomegaly Extremities-no cyanosis, clubbing, or edema Neuro-cranial nerves II through XII intact, motor and sensory function within normal limits, strength symmetrical, no focal deficits Psych-normal affect, normal mood Results & Data Results & Data Vital Signs (Past 12 Hours) Vital Signs Temp Pulse Pulse Resp BP Pulse Ox O2 Del Method 09/07/24 09:40 20 92 Room Air 09/07/24 08:00 36.5 C 97 H 18 122/69 96 CPAP 09/07/24 07:15 90 09/07/24 03:06 36.4 C L 98 H 22 117/76 98 CPAP Laboratory Results 09/06/24 06:23 09/07/24 07:21 PG Care Time/CCT Total # of Minutes Spent Total Time Spent with Patient: Total time spent is greater than 50% in coordination of care (as documented) at patient's floor/unit and/or counseling patient: Coding Level of Care Code 52367 SUB INP/OBS CARE 3/50MIN Diagnoses HFrEF (heart failure with reduced ejection fraction) I50.20 Acute hypoxemic respiratory failure J96.01 Recurrent UTI N39.0 Paroxysmal atrial fibrillation I48.0 Coronary artery disease I25.10 COPD (chronic obstructive pulmonary disease) J44.9 Opioid dependence F11.20
[2024-09-08 08:00] LABS: BUN Creatinine Ratio 33.3 (10-20); Calcium 9.4 mg/dl (8.6-10.3); Potassium 4.2 mmol/L (3.5-5.1)
--- NOTE | 2024-09-08 12:24 | Hospitalist Progress Note ---
Date of Service September 08, 2024 Assessment & Plan (1) HFrEF (heart failure with reduced ejection fraction): Plan: Acute on chronic systolic CHF present on admission. Improving with parenteral Lasix therapy. Chest x-ray done on September 07 looked better with no overt CHF and small bilateral pleural effusions. Will repeat chest x-ray again tomorrow, September 09. Appreciate cardiology consultation and recommendations. Telemetry. (2) Acute hypoxemic respiratory failure: Plan: Present on admission. Acute on chronic respiratory failure. Will wean oxygen down to his usual rate. (3) Recurrent UTI: Plan: ESBL E. coli isolated. He remains on meropenem. Infectious disease recommendations appreciated. He will be discharged on oral Bactrim. He self catheterizes and this is the likely source of his infection (4) Paroxysmal atrial fibrillation: Plan: Currently in paced rhythm. Continue Eliquis therapy. Telemetry. (5) Coronary artery disease: Plan: Stable. Continue current medical management (6) COPD (chronic obstructive pulmonary disease): Plan: Exacerbated by CHF. Continue current management. Improving (7) Opioid dependence: Plan: Continue chronic pain management with usual home medications Plan He refuses to consider rehab placement. He probably will be discharged to his home with home health services on Wednesday, September 09 Admission and Anticipated Discharge Date Admission Date: September 04, 2024 Subjective Alert and oriented. No new problems. Continued brisk diuresis. is at the bedside. Will repeat chest x-ray again tomorrow, September 09. Renal function remains stable. Hopefully home tomorrow, September 09, with increased dose of his Bumex. He remains on intravenous meropenem according to ID recommendations. He will be discharged on oral Bactrim for the ESBL E. coli UTI. Review of Systems 2 Review of Systems: Constitutionalno fever or chills ENTno blurred vision, no double vision, no epistaxis, no sore throat Respiratoryno cough, no wheezing, no shortness of breath at rest. He does have dyspnea with exertion Cardiacno palpitations, no chest pain, no syncope Sha nausea, vomiting, diarrhea, melena, hematochezia GUno urinary retention, no urinary incontinence, no dysuria, no hematuria Musculoskeletalno joint pain, no muscle tenderness Skinno bruising, no rashes, no pruritus Neurono isolated weakness, no paresthesia, no weakness Psychno depression, no anxiety Physical Exam 2 Physical Exam: General-alert and oriented x3, no fever, no chills HEENT-head atraumatic and normocephalic, pupils equal and reactive to light, extraocular muscles intact Neck-no lymphadenopathy or thyromegaly, trachea midline Chest-no audible inspiratory rales. Dullness at both bases. No wheezing Cardiac-regular rate and rhythm, normal S1 and S2 Abdomen-normal bowel sounds, no hepatosplenomegaly Extremities-no cyanosis, clubbing, or edema Neuro-cranial nerves II through XII intact, motor and sensory function within normal limits, strength symmetrical, no focal deficits Psych-normal affect, normal mood Results & Data Results & Data Vital Signs (Past 12 Hours) Vital Signs Temp Pulse Pulse Resp BP Pulse Ox O2 Del Method 09/08/24 11:35 36.4 C L 93 H 18 101/70 93 Room Air 09/08/24 07:45 36.6 C 90 20 112/76 96 Room Air 09/08/24 07:29 Room Air 09/08/24 07:27 89 09/08/24 03:17 36.4 C L 84 19 111/70 95 CPAP Laboratory Results 09/06/24 06:23 09/08/24 06:09 PG Care Time/CCT Total # of Minutes Spent Total Time Spent with Patient: Total time spent is greater than 50% in coordination of care (as documented) at patient's floor/unit and/or counseling patient: Coding Level of Care Code 36196 SUB INP/OBS CARE 2/35MIN Diagnoses HFrEF (heart failure with reduced ejection fraction) I50.20 Acute hypoxemic respiratory failure J96.01 Recurrent UTI N39.0 Paroxysmal atrial fibrillation I48.0 Coronary artery disease I25.10 COPD (chronic obstructive pulmonary disease) J44.9 Opioid dependence F11.20
--- NOTE | 2024-09-08 16:04 | Cardiology Progress Note ---
Date of Service September 08, 2024 Assessment & Plan (1) Coronary artery disease: Plan: This has been quiescent. His blood pressure and heart rate are at target. He will continue aspirin, carvedilol, and he needs to be placed back on statin. We can put him on a statin as an outpatient. (2) Infection due to ESBL-producing Escherichia coli: Plan: Seen urology and has outpatient urology appointment this coming week. He has some questions about antibiotics and duration and I have directed him to discuss that with urology. They seem to plan cystoscopy which would be reasonable from a cardiovascular standpoint. He should hold his Eliquis for 2 days prior to the procedure. (3) Pleural effusion due to CHF (congestive heart failure): Plan: This seems significantly improved on physical exam. There was some improvement on the x-ray yesterday. I do agree that he needs a final x-ray prior to discharge to confirm resolution of edema and pleural effusion. He will likely have some residual atelectasis and the parapneumonic changes noted post COVID. (4) Permanent atrial fibrillation: Plan: Heart rate is creeping up slightly but is adequately controlled. We may end up increasing his beta-clotilde slightly as an outpatient but this can be done in the heart failure clinic. Continue Eliquis. (5) Acute exacerbation of CHF (congestive heart failure): Plan: Seems to be approaching euvolemia. Will switch him to oral Bumex tomorrow. I have recommended that he alternate 2 mg every other day with a 1 mg dose in between. Continue his potassium. I have ordered outpatient electrolytes and kidney function which will be obtained in about 5 days. Will make further adjustments of his diuretic regimen after seen in the heart failure clinic. For now, he is going to continue on carvedilol 3.125 mg p.o. twice daily. Also spironolactone 25 mg daily and potassium supplementation of potassium chloride 20 mEq twice daily. I would like to get him back on an angiotensin receptor clotilde as an outpatient but I do not think he will tolerate Entresto and I am concerned he may not even tolerate a low-dose angiotensin receptor clotilde. (6) Atherogenic dyslipidemia: Plan: Patient is high risk. Previously on statin but this was discontinued by unknown circumstances. I will try to reintroduce statin as an outpatient but this is not a pressing issue at this time. (7) Pressure ulcer of left heel, stage 4: Plan: Patient has wound clinic appointment on Wednesday morning which I would like him to keep. He has a fissure, not really an ulcer but we would like to prevent recurrence of his prior high-grade ulcer. Plan I will sign off on the patient at this time for the weekend. I am not going to be in town or working. Dr. Mcgowan is covering for our group and can be contacted if necessary. Otherwise we will just plan to see the patient in the heart failure clinic with the plan completed as outlined above. Admission and Anticipated Discharge Date Admission Date: September 04, 2024 Subjective Patient has been doing well. He is up in the chair without oxygen. His is present in the room. I believe he is approaching euvolemia. We need to get him up and ambulating with his walker and assistance. He reports no shortness of breath, chest pain, or dysuria at this time. I discussed with him and his that I would like him discharged from the hospital over the weekend as long as he is euvolemic. I strongly encouraged him to follow sodium restrictions and to follow-up with his upcoming appointments including urology, wound clinic, and the heart failure clinic appointment he has in about 10 days. I confirmed that he would be reassessed tomorrow with an x-ray and then decision will be made for discharge after that if appropriate or on Wednesday if necessary. He and his are in agreement with this plan. Review of Systems Review of Systems: Negative except as per HPI Physical Exam Constitutional: Chronically ill-appearing elderly male. Sitting up in the chair and widely awake. Very interactive today. Neck: No JVD Respiratory: For the first time his lungs sound relatively clear to me. He may have some very mild dullness still at the bases but much lower down truly at the costal margins. Do not hear any wheezing or crackles today. His air movement is back to his previous baseline. Cardiovascular: Irregular rhythm with a normal rate. Grade 1-2/6 systolic murmur at the apex. Trace to 1+ bilateral lower extremity edema. Musculoskeletal: no cyanosis or clubbing, extremities motor strength 5/5 Neurologic: Cognition is intact. Speech is fluent. Baseline tremor. Diminished hearing. Contractures of bilateral hands. Psychiatric: A+Ox3, euthymic affect Results & Data Vital Signs (Past 12 Hours) Vital Signs Temp Pulse Pulse Resp BP Pulse Ox O2 Del Method 09/08/24 15:38 36.4 C L 94 H 18 110/73 94 Room Air 09/08/24 14:37 85 09/08/24 11:35 36.4 C L 93 H 18 101/70 93 Room Air 09/08/24 07:45 36.6 C 90 20 112/76 96 Room Air 09/08/24 07:29 Room Air 09/08/24 07:27 89 PG Care Time/CCT Total # of Minutes Spent Total Time Spent with Patient: Total time spent is greater than 50% in coordination of care (as documented) at patient's floor/unit and/or counseling patient: Coding Level of Care Code 01386 SUB INP/OBS CARE 3/50MIN Diagnoses Coronary artery disease I25.10 Infection due to ESBL-producing Escherichia coli A49.8; Z16.12 Pleural effusion due to CHF (congestive heart failure) I50.9 Permanent atrial fibrillation I48.21 Acute exacerbation of CHF (congestive heart failure) I50.9 Heart failure type: unspecified Atherogenic dyslipidemia E78.5 Pressure ulcer of left heel, stage 4 L89.624 (5) Acute exacerbation of CHF (congestive heart failure) Heart failure type: unspecified Qualified Code(s): I50.9 - Heart failure, unspecified
[2024-09-09 06:44] LABS: BUN Creatinine Ratio 31.1 (10-20); Blood Urea Nitrogen 33 mg/dl (6-23); Calcium 9.5 mg/dl (8.6-10.3); Carbon Dioxide 26 mmol/L (21-32); Chloride 98 mmol/L (98-107); Glucose 107 mg/dl (70-99(Fasting))
[2024-09-09 07:26] LABS: Potassium 3.8 mmol/L (3.5-5.1)
[2024-09-09 07:38] VITALS: RESP 18; TEMP 97.7; O2SAT 92
--- NOTE | 2024-09-09 08:09 | XRay Report ---
EXAM: XR chest 1V portable CLINICAL HISTORY: CHF TECHNIQUE: Radiograph of chest was acquired. 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 FINDINGS: Pacemaker is seen in situ. There is opacification of bilateral costo-phrenic angles and bilateral lower zones. Rest of the lungs are clear. The cardiomediastinal silhouette is within normal limits. No acute osseous abnormality. IMPRESSION: 1. Bilateral pleural effusion with underlying collapse/consolidation. 2. Pacemaker in situ. 3. No significant interval change. Electronically signed by Buddy Harry 09-09-2024 08:09 AM
[2024-09-09] MEDS: BUMETANIDE 1 MG TAB PO SCH (09:15)
--- NOTE | 2024-09-09 11:01 | Discharge Summary ---
Discharge Summary Date of Service September 09, 2024 Principal Dx & Hospital Course #1 = Principal Diagnosis (1) HFrEF (heart failure with reduced ejection fraction): Acute on chronic systolic CHF present on admission. Improved with parenteral Lasix therapy. Chest x-ray done today on September 09 looks better with diminishing pleural effusions. No overt CHF. Appreciate cardiology consultation and recommendations. Telemetry. Bumex dosage will be increased to 2 mg once a day at the time of discharge (2) Acute hypoxemic respiratory failure: Resolved. He is now on room air. (3) Recurrent UTI: ESBL E. coli isolated. Treated while hospitalized with intravenous meropenem. Infectious disease recommendations appreciated. He will be discharged on oral Bactrim. He self catheterizes and this is the likely source of his infection (4) Paroxysmal atrial fibrillation: Currently in paced rhythm. Continue Eliquis therapy. Telemetry. (5) Coronary artery disease: Stable. Continue current medical management (6) COPD (chronic obstructive pulmonary disease): Exacerbated by CHF. Continue current management. Improved (7) Opioid dependence: Continue chronic pain management with usual home medications Plan Home today, September 09, with a higher dose of Bumex once daily. He will also remain on oral Bactrim DS therapy twice daily. Admission HPI Per Admitting Provider This patient is a 79-year-old male with a history of HFrEF, biventricular ICD, CAD s/p stent RCA 2010,, PAF on Eliquis, COPD/asthma, chronic hypoxic respiratory failure/ROSE on supplemental O2 and BiPAP, neuropathy, spinal stenosis, ambulatory dysfunction, VTE, BPH, intermittent self-catheterization, parkinsonism, depression, chronic pain syndrome, GERD, who presents to the ER with worsening dyspnea on exertion x 3 to 4 days. He was discharged from the hospital on 08/23/2024 after being treated for pneumonia and heart failure. Since then, he reports his weight has not gone up and he does not feel any ab dominal bloating but has had worsening shortness of breath. He did have some pressure in the chest at rest for 2 nights in a row, 4 to 5 days prior to admission that went away on its own. When he got out of bed to go to the bathroom this morning and felt very winded, he placed his 's supplemental O2 on 3 L and did feel a bit better. On presentation in the ER, his pulse ox was 87% on room air, his BNP was elevated, his chest x-ray was consistent with heart failure. He was moving air poorly, tachypneic, and wheezing. He was given DuoNebs and Solu-Medrol, as well as Lasix and had some relief. He will be admitted for acute on chronic HFrEF and COPD exacerbation with acute on chronic hypoxemic respiratory failure. Discharge Exam General-alert and oriented x3, no fever, no chills HEENT-head atraumatic and normocephalic, pupils equal and reactive to light, extraocular muscles intact Neck-no lymphadenopathy or thyromegaly, trachea midline Chest-no audible inspiratory rales. Dullness at both bases. No wheezing Cardiac-regular rate and rhythm, normal S1 and S2 Abdomen-normal bowel sounds, no hepatosplenomegaly Extremities-no cyanosis, clubbing, or edema Neuro-cranial nerves II through XII intact, motor and sensory function within normal limits, strength symmetrical, no focal deficits Psych-normal affect, normal mood Discharge Plan Discharge Items Patient Disposition: Home - Self-Care Reason For Visit: ACUTE ON CHRONIC HFrEE, HYPOXIA Discharge Diagnosis: Acute on chronic systolic congestive heart failure, ESBL E. coli UTI Condition on Discharge: Good Activity: Resume your previous activity Non-emergency contact: Primary Care Provider and Dna Sequencing Associate Call non-emergency contact if: your symptoms worsen Follow-up/Referrals: Tramaine Peterson MD [Primary Care Provider] - Diet: Carb Consistent or DM2 and Heart Healthy Addtl Attending Provider Instructions: Bumex has been increased to 2 mg dosage taken once daily after lunch in the early afternoon. Take Bactrim DS (trimethoprim/sulfamethoxazole) twice daily as directed. Prescriptions have been sent to [facility] pharmacy on [facility] Pending Studies at Discharge: Yes Stand-Alone Forms: My [facility] Mixgar, Smoking Cessation Medications and DC Order Prescriptions: New bumetanide 2 mg tablet 2 mg PO DAILY Qty: 30 0RF sulfamethoxazole-trimethoprim [Bactrim DS] 800-160 mg tablet 1 tab PO BID 28 Days Qty: 56 0RF Continued potassium chloride 20 mEq tablet extended release 20 meq PO BID Qty: 200 3RF cetirizine 10 mg tablet 10 mg PO QDB bupropion HCl 100 mg tablet 100 mg PO BID Rx Instructions: TAKE THIS MEDICATION EVERY MORNING AND AT NOON albuterol sulfate 90 mcg/actuation HFA aerosol inhaler 2 puffs inhalation Q6H PRN (Reason: Shortness Of Breath Or Wheezing) docusate sodium 100 mg capsule 100 mg PO BID Hold Instructions: Resume on 06/27/24. finasteride 5 mg tablet 5 mg PO QAM pantoprazole 40 mg tablet,delayed release (DR/EC) 40 mg PO BID Eliquis 5 mg tablet 5 mg PO BID Qty: 180 3RF PreserVision AREDS 4,296 mcg-226 mg-90 mg capsule 1 cap PO BID aspirin 81 mg Tablet,Delayed Release (Dr/Ec) 81 mg PO QAM sennosides 8.6 mg Tablet 8.6 mg PO BID Hold Instructions: Resume on 06/27/24. Refresh Lacri-Lube 56.8-42.5 % Ointment 1 applic OPHTHALMIC (EYE) HS Rx Instructions: 1/8th INCH IN EACH EYE Stiolto Respimat 2.5-2.5 mcg/actuation Mist 2 puff INHALATION QAM epinephrine 0.3 mg/0.3 mL Auto-Injector 0.3 mg IM DIRECTED PRN (Reason: sEVERE ALLERGIC REACTION) aluminum hydroxide gel 320 mg/5 mL Suspension 960 mg PO DAILY PRN (Reason: Heartburn) oxycodone [OxyContin] 10 mg Tablet,Oral Only,Ext.Rel.12 Hr 10 mg PO BID metoclopramide HCl 5 mg Tablet 5 mg BID ipratropium-albuterol 0.5 mg-3 mg(2.5 mg base)/3 mL Solution For Nebulization 3 ml NEB Q6R PRNQty: 0 0RF polyethylene glycol 3350 [Miralax] 17 gram Powder In Packet 17 g PO BID Qty: 0 0RF acetaminophen [Tylenol] 325 mg Tablet 650 mg PO Q6H PRN (Reason: Pain/Fever) pramipexole 0.125 mg Tablet 0.375 mg PO QAM nitroglycerin 0.4 mg Tablet, Sublingual 0.4 mg sublingual DIRECTED PRN (Reason: Chest Pain) Rx Instructions: Every 5 minutes as needed for chest pain x 3 doses spironolactone 25 mg Tablet 25 mg PO DAILY Qty: 30 0RF carvedilol 3.125 mg Tablet 3.125 mg PO BIDM Qty: 60 0RF Discontinued bumetanide 1 mg tablet 1 mg PO QAM Qty: 90 3RF Discharge Orders: Discharge Order- CHF (Routine); Ordered 09/09/24 Ordered By: Saúl Dill Admission Data Admit Date/Time: 09/04/24 09:41 Attending Provider: Saúl Dill Admit Provider: Maria Teresa Moses Primary Care Provider: Tramaine Peterson Other Providers: Maria Teresa Moses; Tramaine Kruger; Sergey Spence; Oswaldo Cordon Hospital Stay Data Consultations 09/04/24 08:55 ED Decision to Admit Stat 09/04/24 10:37 Consult Cardiology Routine 09/04/24 17:29 Consult Pulmonology Routine 09/05/24 13:10 Consult Urology Routine 09/05/24 13:24 Consult Infectious Diseases Routine Diagnostic Imagining Performed 09/04/24 20:09 CT chest diagnostic wo con Routine 09/05/24 20:18 CT abd pelvis IV con only Routine Pending Results Patient Have Any Pending Studies at Discharge: Yes Discharge Instructions Given to Patient (Per Discharging Provider) Bumex has been increased to 2 mg dosage taken once daily after lunch in the early afternoon. Take Bactrim DS (trimethoprim/sulfamethoxazole) twice daily as directed. Prescriptions have been sent to [facility] pharmacy on [facility] Total Time Total Time Spent Total Time Spent (In Minutes): 50 minutes Coding Level of Care Code 12382 INP/OBS DISCH >30 MIN Diagnoses HFrEF (heart failure with reduced ejection fraction) I50.20 Acute hypoxemic respiratory failure J96.01 Recurrent UTI N39.0 Paroxysmal atrial fibrillation I48.0 Coronary artery disease I25.10 COPD (chronic obstructive pulmonary disease) J44.9 Opioid dependence F11.20
[2024-09-09 11:13] VITALS: BP 122/70; PULSE 84
[2024-09-10] MEDS ORDERED: BUMETANIDE 1 MG TAB PO SCH (09:00)
--- NOTE | 2024-09-11 10:54 | Coding Query ---
PRESSURE ULCER DOCUMENTATION To promote full compliance with coding requirements relating to patient care, physician participation is requested in all cases of brothel keeper uncertainty. Please assist us with the question(s) below: Please specify the known or suspected type by placing an "X" within the parenthesis (x). A Chronic Pressure Ulcer of the Left Heel was mentioned to be Stage 1 and also Stage 4. Please clarify If possible, please check the box that provides the specific stage of the ulcer: ( x) Stage 1 ( ) Stage 2 ( ) Stage 3 ( ) Stage 4 ( ) Unstageable Thank you Josee NEWMAN
--- NOTE | 2024-09-11 10:57 | Coding Query ---
CODING QUERY To promote full compliance with coding requirements relating to patient care, provider participation is requested in all cases of hcc coders uncertainty. Please assist us with the question(s) below: Coding Question(s): Paroxysmal and Permanent Atrial Fibrillation were both documented throughout the progress notes. Please clarify if it is Paroxysmal or Permanent. Physician's Response(s): permanent atrial fib Thank you Josee Ramirez Principal Diagnosis: "that condition established after study, to be chiefly responsible for occasioning the admission of the patient to the hospital for care." Co-Existing Principal Diagnosis: "when two or more diagnoses equally meet the criteria for principal diagnosis as determined by the circumstances of admission, diagnostic work up, and/or therapy provided, and the Alphabetic Index, Tabular List, or another coding guideline does not provide sequencing direction, any one of the diagnoses may be sequenced first." "When the physician has documented what appears to be a current diagnosis in the body of the record, but has not included the diagnosis in the final diagnostic statement, the physician should be asked whether the diagnosis should be added." (Source [facility] 2 QTR90. p3-4) [facility]
== END 2024-09-09 12:50 | disposition home or self-care (01) | DRG 189 ==
LOC: ED 06:10 → SUATTDRO 09:41 → EDINP 09:41 → 2S 10:37

== ENCOUNTER 2024-12-04 11:53 | Inpatient (IN) ==
--- NOTE | 2024-12-04 12:19 | Emergency Department Note ---
Impression & Plan Acute hypoxemic respiratory failure, Acute exacerbation of chronic obstructive airways disease, Acute pneumonia ED Provider Note NAME: ZIGGY DEUTSCH AGE: 79 SEX: M : 1945 ARRIVES VIA: Walk-In INFORMANT: Patient, ED PROVIDER(S): Juan Meredith MD CHIEF COMPLAINT: Cough, rib pain, outpatient referral MEDICAL DECISION MAKING: Patient presents with the above. IV was established and blood work was obtained. Did discuss with pharmacy as the patient does have a penicillin allergy but has tolerated cephalosporins in the past most recently in June. Patient did have chest x-ray IV methylprednisolone DuoNeb treatments. Fluids initially held in light of the patient's prior history of CHF. The patient's blood work shows a white count of 11 with virtually normal hemoglobin at 13.8 with a normal platelet count. Patient's kidney function was unremarkable. VBG pH is 7.46 with a pCO2 of 44. BioFire negative. Nasal MRSA screen negative and the patient's chest x-ray does show concern for possible bibasilar pneumonia. I did speak with the on-call hospitalist service and the patient was admitted due to the patient's oxygen requirement. Patient was ordered another neb treatment. I spoke with Dr. Allen and the patient was admitted to the medicine service. Critical Care: I have personally spent 55 minutes of critical care time in direct management of this patient. This includes bedside care, interpretation of diagnostic studies, and testing, discussion with consultants, patient, and family members, and other require inpatient management activities. This 55 minutes is in excess of all separately billable procedures. Discussion w/ other healthcare providers: Dr. Allen inpatient medicine service Prior /Outside records reviewed: None Differential diagnosis: Reactive airway disease, pneumonia, pneumothorax, COPD, CHF, ACS, pulmonary embolism, musculoskeletal, GERD as well as other pathologies were considered. Diagnostics, as interpreted by me: ECG:AV dual paced rhythm, rate of 89, wide QRS normal axis no obvious STEMI. Cardiac monitoring: An order was placed for continuous cardiac monitoring. The monitor shows a rate of 85 with regular rhythm. Patient was placed on pulse oximetry Medical decision rules: None Imaging studies: I informally interpreted the patient's chest x-ray with possible bibasilar pneumonia with formal report to follow. HPI: Patient presents today due to concern for worsening cough. The patient does have a known history of COPD and A-fib is on chronic anticoagulation. The patient states that he developed a cough beginning on Wednesday that has gotten progressively worse. Patient states that he does have some abdominal soreness as well as some rib soreness secondary to his coughing. He states that any chest pain he has not secondary to coughing. States that it is nonproductive. Patient is not smoked in some time but does have a known history of COPD. He has been using his inhalers and nebulizers at home to some effect. Patient states that he was seen in urgent care today and was referred here for further evaluation and treatment. Patient states that he always does have slightly left greater than right leg swelling. He denies any vomiting or diarrhea. No known sick contacts or any recent travel. He does wear home oxygen but only at nighttime. He states that he did wear some oxygen during the day . He states that his shortness of breath is not significantly worse than the past. PAST MEDICAL HISTORY: See Below PAST SURGICAL HISTORY: See Below SOCIAL HISTORY: See Below HOME MEDICATIONS: See Below ALLERGIES: See Below VITALS: See Below PHYSICAL EXAMINATION: GENERAL: NAD, non-toxic. Wearing glasses. EYE EXAM: Normal conjunctiva. PERRL, no anisocoria and EOM's grossly intact w/o pain. OROPHARYNX: Moist mucus membranes, grossly normal dentition. NECK: Trachea midline, no stridor. LUNGS: Diminished breath sounds throughout. Normal chest wall mechanics. HEART: NSR, no MRG. ABDOMEN: Abdomen soft, non-tender, no masses, no rebound or guarding. BACK: No CVA TTP. SKIN: No rashes and no bruising. UPPER EXTREMITIES: Upper extremities are grossly normal. LOWER EXTREMITIES: Grossly normal, slight left-sided pretibial edema. No calf pain. NEURO EXAM: Awake and alert, follows commands, no obvious facial asymmetry, normal speech, moves all 4 extremities. Past Med/Surg History Problem List (Updated 12/06/24 @ 17:16 by Juan Meredith MD) Acute exacerbation of chronic obstructive airways disease (Acute) Acute pneumonia (Acute) Acute respiratory failure Presence of biventricular automatic cardioverter/defibrillator (AICD) [employer]tr[employer] - [facility] [place] Cardiology Ischemic cardiomyopathy Pressure ulcer of left foot, stage 3 (Acute) Chest pain (Acute) BPH w urinary obs/LUTS (Chronic) Renal cyst (Chronic) Nephrolithiasis (Chronic) Infection due to ESBL-producing Escherichia coli Pleural effusion due to CHF (congestive heart failure) Recurrent UTI (Chronic) Acute hypoxemic respiratory failure (Acute) Acute exacerbation of CHF (congestive heart failure) (Acute) Anticoagulant long-term use Stage III pressure ulcer of buttock (Acute) Centrilobular emphysema Bilateral foot-drop Spasticity upper limbs Agent orange exposure Ulnar neuropathy of both upper extremities Cervicogenic headache Complex renal cyst Cervical radiculopathy (Acute) Cervical spondylosis without myelopathy (Acute) Idiopathic peripheral neuropathy (Acute) Elevated PSA Biliary dyskinesia (Chronic) Balance problem Medical History History of blood transfusion x3 units "quite awhile ago" per patient Diverticular disease Incidental finding on colonoscopy per patient Recurrent UTI (urinary tract infection) multiple - just completed antibiotic Nephrolithiasis History of ESBL E. coli infection EMR 09/05/24 Idiopathic peripheral neuropathy Bilateral Lower Extremities Complex renal cyst Per records Centrilobular emphysema [facility] Cervical radiculopathy Full ROM per patient Gait disturbance Walker/Wheelchair Parkinsonism [facility] [place] Neurology Agent orange exposure Opioid dependence COPD (chronic obstructive pulmonary disease) [facility] Permanent atrial fibrillation [facility] [place] Cardiology Pressure ulcer of left heel, stage 4 [facility] [place] Wound Clinic Atherogenic dyslipidemia Cardiomyopathy [facility] [place] Cardiology HFrEF (heart failure with reduced ejection fraction) [facility] [place] Cardiology Presence of combination internal cardiac defibrillator (ICD) and pacemaker Implanted 2010, replaced in Biventricular [employer]tr[employer] History of urinary self-catheterization self caths every other night CAD (coronary artery disease) 2011- stent x1 Follows with [facility] [place] cardio Sleep apnea BiPap with 1.5L of O2 BPH loc w urin obs/LUTS Atrial tachycardia [facility] [place] Cardiology CHF (congestive heart failure) [facility] [place] [facility] Benign essential hypertension Elevated lactic acid level Unstageable pressure ulcer of left heel [facility] [place] Wound Clinic Intrinsic minus hand Bilateral Episode of confusion [facility] [place] Neurology Chest pain Resolved, denies at this time Peripheral arterial disease Hypertension Tremor Complex sleep apnea syndrome NYHA class 4 acute on chronic systolic heart failure [facility] [place] cardiology Legally blind Chronic back pain History of DVT of lower extremity 2010 Macular degeneration Hearing deficit Bilateral Hearing Aids - Does not wear Depression Migraine Myocardial Infarction 2010 Pulmonary embolism 1992 + 2010 after heart attack Asthma Surgical History History of cardioversion 05/2024 [facility] [place] History of vasectomy Status post coronary artery stent placement x1 stent - 2010 - [facility] [place] Cardiology S/P epidural steroid injection History of foot surgery Right plantar fasciitis History of open reduction and internal fixation (ORIF) procedure left foot--hardware removed History of prostate biopsy x3--precancerous, just monitoring for now History of prostate surgery 07/2016--[facility] prostate vaproization History of cystoscopy multiple History of colonoscopy with polypectomy History of esophagogastroduodenoscopy (EGD) History of right inguinal hernia repair x3 History of Khari fundoplication History of cholecystectomy History of tooth extraction Upper/Lower Partial History of eye surgery right--macular degeneration History of bilateral cataract extraction History of cardiac cath 10/2010 @ [facility]--1 stent placed Family History Son Family history of diabetes mellitus Other Family history non-contributory No family history of adverse response to anesthesia Social History Smoking Status: Former smoker Tobacco Type: Cigarettes Cigarettes Per Day: 1993; Second Hand Exposure: No; Do You Dip or Chew Tobacco: No; Hx Alcohol Use: No Hx Substance Use: No Preferred Language: Panamanian Communication Ability: Effective Visual Impairment: Partially Limited Hearing Ability: Use of Hearing Aid Hot Dip Galvanizer Required: No Beliefs That Will Affect Care: None marital status: Current Living Situation: Spouse current occupational status: retired How many Children do You have: 1 How many Children do You have Comment: son , able to assist with care as needed Feels Safe at Home: Yes Diet: low salt and regular caffeine: Yes during the past year weight has: remained stable Physical Activity Frequency: 3-4 Times per Week Assistive Devices: BiPap, Lift Chair, Oxygen - at Night, Stair Lift, Walker and Wheelchair Allergies Allergies Allergy/AdvReac Type Severity Reaction Status Date / Time bee venom protein (honey bee) Allergy Severe Swelling, Verified 12/04/24 16:07 Shortness of Breath Penicillins Allergy Severe Swelling, Verified 12/04/24 16:07 Difficulty Breathing lidocaine Allergy Mild Rash Verified 12/04/24 15:20 gabapentin Allergy Unknown Unknown Verified 12/04/24 16:07 icosapent ethyl Allergy Unknown Unknown Verified 12/04/24 16:07 pregabalin Allergy Unknown Unknown Verified 12/04/24 16:07 cefdinir AdvReac Severe Vomiting Verified 12/04/24 16:07 hydrocodone AdvReac Intermediate Gastrointestinal Verified 12/04/24 16:07 Upset oxycodone AdvReac Intermediate Gastrointestinal Verified 12/04/24 16:07 Upset ertapenem AdvReac Mild Vomiting Verified 12/04/24 15:20 Home Meds Home Medications Medication Instructions Recorded Confirmed albuterol sulfate 90 mcg/actuation 2 puffs inhalation Q6H PRN 12/01/18 12/04/24 aerosol inhaler Shortness Of Breath Or Wheezing bupropion HCl 100 mg tablet 100 mg PO BID 12/01/18 12/04/24 docusate sodium 100 mg capsule 100 mg PO BID 12/01/18 12/04/24 finasteride 5 mg tablet (Proscar) 5 mg PO QAM 12/01/18 12/04/24 aspirin 81 mg tablet,delayed 81 mg PO QAM 12/21/18 12/04/24 release sennosides 8.6 mg tablet 17.2 mg PO BID PRN Constipation 12/21/18 12/04/24 white petrolatum-mineral oil 56.8 1 applic OPB HS 12/21/18 12/04/24 %-42.5 % eye ointment (Refresh Lacri-Lube) pantoprazole 40 mg tablet,delayed 40 mg PO BID 03/10/21 12/04/24 release (Protonix) tiotropium 2.5 mcg-olodaterol 2.5 2 puff inhalation QAM 12/02/22 12/04/24 mcg/actuation mist for inhalation (Stiolto Respimat) epinephrine 0.3 mg/0.3 mL 0.3 mg IM DIRECTED PRN 07/08/23 12/04/24 injection, auto-injector Anaphylaxis vitamins A,C,F-dmoi-mxyosk 4,296 1 cap PO BID 03/27/24 12/04/24 mcg-226 mg-90 mg capsule (PreserVision AREDS) aluminum hydroxide gel 320 mg/5 mL 960 mg PO HS Heartburn 06/16/24 12/04/24 oral suspension oxycodone 10 mg tablet,crush 10 mg PO Q12H Severe Chronic Pain 06/16/24 12/04/24 resistant,extended release 12 hr (OxyContin) bumetanide 2 mg tablet 2 mg PO QAM 10/25/24 12/04/24 ipratropium 0.5 mg-albuterol 3 mg 3 ml NEB Q6R PRN Shortness Of 10/25/24 12/04/24 (2.5 mg base)/3 mL nebulization Breath Or Wheezing soln polyethylene glycol 3350 17 gram 17 g PO DAILY PRN Constipation 11/15/24 12/04/24 oral powder packet (Miralax) menthol 0.44 %-zinc oxide 20.6 % 1 applic topical BID Skin 11/21/24 12/04/24 topical ointment (Calmoseptine) irritation rosuvastatin 20 mg tablet 10 mg PO DAILY 11/21/24 12/04/24 carvedilol 6.25 mg tablet 3.125 mg PO BID 12/04/24 12/04/24 clotrimazole 1 % topical cream 1 applic topical BID 12/04/24 12/04/24 food supplemt, lactose-reduced 1 ea PO TID 12/04/24 12/04/24 (Ensure oral liquid) metoclopramide HCl 10 mg tablet 10 mg PO AC 12/04/24 12/04/24 tiotropium 2.5 mcg-olodaterol 2.5 2 puff inhalation DAILY 12/04/24 12/04/24 mcg/actuation mist for inhalation (Stiolto Respimat) triamcinolone acetonide 0.025 % 1 applic topical DAILY 12/04/24 12/04/24 topical cream Previous Rx's Medication Instructions Recorded apixaban 5 mg tablet (Eliquis) 5 mg PO BID #180 tabs 11/23/23 spironolactone 25 mg tablet 25 mg PO DAILY #90 tabs 10/31/24 tamsulosin 0.4 mg capsule 0.4 mg PO HS #30 caps 11/29/24 pramipexole 0.375 mg 0.375 mg PO DAILY #30 tabs 11/30/24 tablet,extended release 24 hr Results & Data (ED) Vital Signs Vital Signs - 24 hr 12/04/24 12:08 Temperature 36.6 C Temperature Source Oral Pulse Rate 94 H Respiratory Rate 17 Blood Pressure 116/78 Blood Pressure Mean 90 Pulse Oximetry 85 L Oxygen Delivery Method Room Air Sepsis Recent Fever Within 48 Hours Yes Sepsis New/Unexplained Change in Mental Status N/A Sepsis Action Taken by Nursing No Action Required Home Medications Current Medication List: was personally reviewed by me Laboratory Data Attestation: I reviewed the patient's lab results. 12/06/24 09:11 12/06/24 09:11 Lab Results 12/04/24 Range/Units 12:45 WBC 11.03 H (4.8-10.8) K/ul RBC 4.86 (4.70-6.10) M/uL Hgb 13.8 L (14.0-18.0) g/dl Hct 41.4 L (42.0-52.0) % MCV 85.2 (80.0-100.0) fL MCH 28.4 (25.0-34.0) pg MCHC 33.3 (32.0-36.0) g/dL RDW Std Deviation 47.9 H (36.4-46.3) fL RDW Coeff of Jerry 15.3 H (11.5-14.5) % Plt Count 334 (130-400) K/uL MPV 10.7 (9.4-12.4) fL Immature Gran % (Auto) 0.7 % Neut % (Auto) 67.1 % Lymph % (Auto) 21.2 % Bath % (Auto) 6.8 % Eos % (Auto) 3.8 % Baso % (Auto) 0.4 % Neut # (Auto) 7.40 H (1.40-6.50) K/uL Lymph # (Auto) 2.34 (1.20-3.40) K/uL Bath # (Auto) 0.75 H (0.11-0.59) K/uL Eos # (Auto) 0.42 (0.00-0.50) K/uL Baso # (Auto) 0.04 (0.00-0.20) K/uL Immature Gran # (Auto) 0.08 (0.01-0.20) K/uL PT 12.0 (9.0-12.0) Seconds INR 1.1 (0.9-1.1) APTT 29 (21-31) Seconds PTT Ratio 1.1 VBG pH 7.46 H (7.36-7.41) VBG pCO2 44 (38-50) mmHg VBG pO2 29 mmHg VBG HCO3 31 mmol/L VBG O2 Saturation < 60.0 % VBG Base Excess 6.6 mEq/L Sodium 136 (136-145) mmol/L Potassium 4.1 (3.5-5.1) mmol/L Chloride 100 (98-107) mmol/L Carbon Dioxide 27 (21-32) mmol/L Anion Gap 9 (3-11) BUN 21 (6-23) mg/dl Creatinine 0.94 (0.6-1.4) mg/dl Est Cr Clr Drug Dosing 78.8 ml/min eGFR 82.46 BUN/Creatinine Ratio 22.3 H (10-20) Glucose 116 H (70-99(Fasting)) mg/dl Lactate 1.8 (0.4-2.0) mmol/L Calcium 9.3 (8.6-10.3) mg/dl Total Bilirubin 0.6 (0.2-1.0) mg/dl AST 16 (13-39) U/L ALT 15 (7-52) U/L Alkaline Phosphatase 64 (34-104) U/L Troponin I High Sens 15.6 (0-20) pg/ml Total Protein 8.1 (6.0-8.3) gm/dl Albumin 4.1 (3.4-5.0) gm/dl Globulin 4.0 (2.5-4.0) gm/dl Albumin/Globulin Ratio 1.0 (0.9-2) Procalcitonin 0.03 (0-0.5) ng/ml Nasal Screen MRSA (PCR) Negative (Negative) Adenovirus (PCR) Not Detected (NotDetected) B. pertussis DNA (PCR) Not Detected (NotDetected) B.parapertussis DNA PCR Not Detected (NotDetected) C. pneumoniae DNA (PCR) Not Detected (NotDetected) Coronavirus OC43 (PCR) Not Detected (NotDetected) Coronavirus HKU1 (PCR) Not Detected (NotDetected) Coronavirus 229E (PCR) Not Detected (NotDetected) SARS-CoV-2 (PCR) Not Detected (NotDetected) Coronavirus NL63 (PCR) Not Detected (NotDetected) Human Metapneumovir PCR Not Detected (NotDetected) Influenza Type A (PCR) Not Detected (NotDetected) Influenza Type B (PCR) Not Detected (NotDetected) M. pneumoniae (PCR) Not Detected (NotDetected) Parainfluenza 1 (PCR) Not Detected (NotDetected) Parainfluenza 2 (PCR) Not Detected (NotDetected) Parainfluenza 3 (PCR) Not Detected (NotDetected) Parainfluenza 4 (PCR) Not Detected (NotDetected) RSV (PCR) Not Detected (NotDetected) Entero/Rhino (PCR) Not Detected (NotDetected) Administered Medications Acetylcysteine (Acetylcysteine 20% Inhal Soln 4ml Dispensed By Resp.) 5 ml INH Q12R TEDDY Stop: 01/03/25 18:59 Last Admin: 12/06/24 07:48 Dose: Not Given Documented By: Admin: 12/05/24 19:18 Dose: 5 ml Documented By: [id number] Admin: 12/05/24 07:42 Dose: 5 ml Documented By: Admin: 12/04/24 20:01 Dose: 5 ml Documented By: EML Albuterol (Albut/Ipratrop 3mg/0.5mg Neb 3 Ml Vial) 3 ml NEB Q6R PRN; Protocol PRN Reason: Shortness Of Breath Or Wheezing Stop: 01/03/25 18:06 Last Admin: 12/05/24 19:18 Dose: 3 ml Documented By: [id number] Admin: 12/05/24 07:42 Dose: 3 ml Documented By: Admin: 12/05/24 05:01 Dose: 3 ml Documented By: [email or web address] Admin: 12/04/24 19:48 Dose: 3 ml Documented By: EML Apixaban (Apixaban 5 Mg Tablet) 5 mg PO BID TEDDY Stop: 01/03/25 20:59 Last Admin: 12/06/24 08:09 Dose: 5 mg Documented By: Admin: 12/05/24 21:04 Dose: 5 mg Documented By: Admin: 12/05/24 09:07 Dose: 5 mg Documented By: Admin: 12/04/24 21:15 Dose: 5 mg Documented By: RIGOBERTO Artificial Tears (Artificial Tears) 1 drops OP HS TEDDY Stop: 01/03/25 20:59 Last Admin: 12/05/24 21:06 Dose: 1 drops Documented By: Admin: 12/04/24 22:58 Dose: 1 drops Documented By: RIGOBERTO Aspirin (Aspirin 81 Mg Ectab) 81 mg PO [facility] Stop: 01/04/25 08:59 Last Admin: 12/06/24 08:08 Dose: 81 mg Documented By: Admin: 12/05/24 09:05 Dose: 81 mg Documented By: CHAPO Bumetanide (Bumetanide 1 Mg Tab) 2 mg PO [facility] Stop: 01/04/25 08:59 Last Admin: 12/06/24 08:09 Dose: 2 mg Documented By: Admin: 12/05/24 09:04 Dose: 2 mg Documented By: CHAPO Bupropion HCl (Bupropion Hcl 100 Mg Tablet) 100 mg PO BID [facility] Stop: 01/03/25 20:59 Last Admin: 12/06/24 08:10 Dose: 100 mg Documented By: Admin: 12/05/24 21:05 Dose: 100 mg Documented By: Admin: 12/05/24 09:07 Dose: 100 mg Documented By: Admin: 12/04/24 21:15 Dose: 100 mg Documented By: RIGOBERTO Carvedilol ([facility]il[facility] 3.125 Mg Tab) [facility] Stop: 01/03/25 18:06 Last Admin: 12/06/24 17:03 Dose: 3.125 mg Documented By: Admin: 12/06/24 08:09 Dose: 3.125 mg Documented By: Admin: 12/05/24 17:17 Dose: 3.125 mg Documented By: Admin: 12/05/24 09:07 Dose: 3.125 mg Documented By: Admin: 12/04/24 21:15 Dose: 3.125 mg Documented By: RIGOBERTO Cetirizine HCl (Cetirizine Hcl 10 Mg Tablet) 10 mg PO [facility] Stop: 01/04/25 08:59 Last Admin: 12/06/24 08:08 Dose: 10 mg Documented By: Admin: 12/05/24 09:07 Dose: 10 mg Documented By: CHAPO Docusate Sodium (Docusate Sodium 100 Mg Cap) 100 mg PO BID [facility] Stop: 01/03/25 20:59 Last Admin: 12/06/24 08:22 Dose: 100 mg Documented By: Admin: 12/05/24 21:05 Dose: 100 mg Documented By: Admin: 12/05/24 09:03 Dose: 100 mg Documented By: Admin: 12/04/24 22:57 Dose: 100 mg Documented By: RIGOBERTO Doxycycline Hyclate (Doxycycline Hyclate 100 Mg Cap) 100 mg PO BID [facility] Stop: 12/09/24 20:59 Last Admin: 12/06/24 08:10 Dose: 100 mg Documented By: Admin: 12/05/24 21:50 Dose: 100 mg Documented By: Admin: 12/05/24 09:04 Dose: 100 mg Documented By: Admin: 12/04/24 21:15 Dose: 100 mg Documented By: RIGOBERTO Finasteride (Finasteride 5 Mg Tab) 5 mg PO QAM TEDDY Stop: 01/04/25 08:59 Last Admin: 12/06/24 08:10 Dose: 5 mg Documented By: Admin: 12/05/24 09:03 Dose: 5 mg Documented By: CHAPO Guaifenesin (Guaifenesin 600 Mg Tabcr) 1,200 mg PO Q12 TEDDY Stop: 01/03/25 15:59 Last Admin: 12/06/24 09:37 Dose: 1,200 mg Documented By: Admin: 12/05/24 21:03 Dose: 1,200 mg Documented By: Admin: 12/05/24 10:08 Dose: 1,200 mg Documented By: Admin: 12/04/24 16:42 Dose: 1,200 mg Documented By: REGINALDO Guaifenesin/Dextromethorphan (Guaifenesin/Dextrom Syrup 200mg/20mg 10ml Udc) 10 ml PO Q6H PRN PRN Reason: Cough Stop: 01/04/25 04:51 Last Admin: 12/06/24 08:10 Dose: 10 ml Documented By: Admin: 12/05/24 09:03 Dose: 10 ml Documented By: Admin: 12/05/24 05:36 Dose: 10 ml Documented By: PANFILO Methylprednisolone 40 mg/ (Syringe) 0.64 mls @ 1.5 mls/min IV BID TEDDY Stop: 12/11/24 08:59 Last Admin: 12/06/24 08:21 Dose: 1.5 mls/min Documented By: Admin: 12/05/24 21:06 Dose: 1.5 mls/min Documented By: Admin: 12/05/24 09:09 Dose: 1.5 mls/min Documented By: CHAPO Vancomycin HCl 2,500 mg/ (Sodium Chloride) 550 mls @ 180 mls/hr IV NOW ONE Stop: 12/06/24 19:18 Last Admin: 12/06/24 17:02 Dose: 180 mls/hr Documented By: CHAPO Metoclopramide HCl (Metoclopramide Hcl 5 Mg Tablet) 5 mg PO BID TEDDY Stop: 01/03/25 20:59 Last Admin: 12/06/24 08:09 Dose: 5 mg Documented By: Admin: 12/05/24 21:05 Dose: 5 mg Documented By: Admin: 12/05/24 09:08 Dose: 5 mg Documented By: Admin: 12/04/24 21:15 Dose: 5 mg Documented By: RIGOBERTO Multivitamins (Multivitamin Tab) 1 tab PO DAILY TEDDY Stop: 01/04/25 08:59 Last Admin: 12/06/24 08:09 Dose: 1 tab Documented By: Admin: 12/05/24 09:04 Dose: 1 tab Documented By: CHAPO Multivitamins/Minerals (Cerovite Adv Formula Tab) 1 tab PO BID TEDDY Stop: 01/03/25 20:59 Last Admin: 12/06/24 08:08 Dose: 1 tab Documented By: Admin: 12/05/24 21:06 Dose: 1 tab Documented By: Admin: 12/05/24 09:05 Dose: 1 tab Documented By: Admin: 12/04/24 21:15 Dose: 1 tab Documented By: RIGOBERTO Er Pramipexole ~Non- Formulary Patient's Own Med 1 each PO DAILY TEDDY Stop: 01/04/25 11:14 Last Admin: 12/06/24 08:08 Dose: 1 tab Documented By: Admin: 12/05/24 11:40 Dose: 1 tab Documented By: CHAPO Ondansetron HCl (Ondansetron Inj 2 Mg/Ml 2 Ml Vial) 4 mg IV Q4H PRN PRN Reason: Nausea And Vomiting Stop: 01/03/25 16:07 Last Admin: 12/05/24 14:47 Dose: 4 mg Documented By: Admin: 12/05/24 10:08 Dose: 4 mg Documented By: CHAPO Oxycodone HCl (Oxycodone Hcl 10 Mg Tabcr (Oxycontin)) 10 mg PO BID TEDDY Stop: 12/18/24 20:59 Last Admin: 12/06/24 08:21 Dose: 10 mg Documented By: Admin: 12/05/24 21:05 Dose: 10 mg Documented By: Admin: 12/05/24 09:03 Dose: 10 mg Documented By: Admin: 12/04/24 21:14 Dose: 10 mg Documented By: RIGOBERTO Pantoprazole Sodium (Pantoprazole 40 Mg Tab) 40 mg PO BID TEDDY Stop: 01/03/25 20:59 Last Admin: 12/06/24 08:08 Dose: 40 mg Documented By: Admin: 12/05/24 21:05 Dose: 40 mg Documented By: Admin: 12/05/24 09:04 Dose: 40 mg Documented By: Admin: 12/04/24 21:15 Dose: 40 mg Documented By: RIGOBERTO Polyethylene Glycol (Polyethylene (Miralax) 17 Gm Pack) 17 gm PO BID TEDDY Stop: 01/03/25 20:59 Last Admin: 12/06/24 08:21 Dose: 17 gm Documented By: Admin: 12/05/24 21:02 Dose: 17 gm Documented By: Admin: 12/05/24 09:03 Dose: 17 gm Documented By: Admin: 12/04/24 22:59 Dose: 17 gm Documented By: RIGOBERTO Potassium Chloride (Potassium Chloride Crtab 20 Meq Tabcr) 20 meq PO BID TEDDY Stop: 01/03/25 20:59 Last Admin: 12/06/24 08:21 Dose: 20 meq Documented By: Admin: 12/05/24 21:04 Dose: 20 meq Documented By: Admin: 12/05/24 09:02 Dose: 20 meq Documented By: Admin: 12/04/24 22:56 Dose: 20 meq Documented By: RIGOBERTO Rosuvastatin Calcium (Rosuvastatin Calcium 20 Mg Tab) 20 mg PO DAILY TEDDY Stop: 01/04/25 08:59 Last Admin: 12/06/24 08:09 Dose: 20 mg Documented By: Admin: 12/05/24 09:08 Dose: 20 mg Documented By: CHAPO Sennosides (Senna 8.6 Mg Tab) 8.6 mg PO BID TEDDY Stop: 01/03/25 20:59 Last Admin: 12/06/24 08:21 Dose: 8.6 mg Documented By: Admin: 12/05/24 21:04 Dose: 8.6 mg Documented By: Admin: 12/05/24 09:03 Dose: 8.6 mg Documented By: Admin: 12/04/24 22:57 Dose: 8.6 mg Documented By: RIGOBERTO Sodium Chloride (Sodium Chlor 7% 4 Ml Neb) 4 ml NEB BIDR TEDDY Stop: 01/03/25 15:59 Last Admin: 12/06/24 07:48 Dose: Not Given Documented By: Admin: 12/05/24 19:18 Dose: 4 ml Documented By: [id number] Admin: 12/05/24 07:42 Dose: 4 ml Documented By: Admin: 12/04/24 19:49 Dose: 4 ml Documented By: Admin: 12/04/24 16:42 Dose: 4 ml Documented By: REGINALDO Spironolactone (Spironolactone 25 Mg Tab) 25 mg PO DAILY TEDDY Stop: 01/04/25 08:59 Last Admin: 12/06/24 08:10 Dose: 25 mg Documented By: Admin: 12/05/24 09:04 Dose: 25 mg Documented By: CHAPO Tamsulosin HCl (Tamsulosin Hcl 0.4 Mg Cap) 0.4 mg PO HS TEDDY Stop: 01/03/25 20:59 Last Admin: 12/05/24 21:05 Dose: 0.4 mg Documented By: Admin: 12/04/24 21:15 Dose: 0.4 mg Documented By: RIGOBERTO Discontinued Medications Albuterol (Albut/Ipratrop 3mg/0.5mg Neb 3 Ml Vial) 6 ml INH NOW STA Stop: 12/04/24 12:26 Last Admin: 12/04/24 12:51 Dose: 6 ml Documented By: JOSSY Albuterol (Albut/Ipratrop 3mg/0.5mg Neb 3 Ml Vial) 3 ml NEB NOW STA; Protocol Stop: 12/04/24 14:00 Last Admin: 12/04/24 14:04 Dose: 3 ml Documented By: ADELE Cefepime HCl (Maxipime 2000mg) 2,000 mg in 20 mls @ 5 mls/min IV NOW STA; Protocol Stop: 12/04/24 12:34 Last Admin: 12/04/24 13:20 Dose: 5 mls/min Documented By: JAN Lactulose (Lactulose Syrup 20 Gm/30 Ml Udc) 30 gm PO NOW STA Stop: 12/05/24 09:35 Last Admin: 12/05/24 14:09 Dose: Not Given Documented By: CHAPO Lactulose (Lactulose 200gm/700ml Wtr Enema) 200 gm UT Q8H TEDDY Stop: 12/06/24 14:59 Last Admin: 12/06/24 06:34 Dose: 200 gm Documented By: Admin: 12/05/24 21:51 Dose: 200 gm Documented By: Admin: 12/05/24 17:16 Dose: 200 gm Documented By: CHAPO Methylprednisolone (Methylprednisolone 125 Mg/2 Ml Vial) 125 mg IV NOW STA Stop: 12/04/24 12:26 Last Admin: 12/04/24 12:51 Dose: 125 mg Documented By: JOSSY Miscellaneous (Pramipexole 0.375 Mg Tablet Extended Release 24 Hr Order Awaiting Action) 1 each N/A QS TEDDY Stop: 01/04/25 00:00 Last Admin: 12/05/24 11:33 Dose: 1 each Documented By: Admin: 12/05/24 09:08 Dose: Not Given Documented By: CHAPO Sodium Chloride (Sodium Chloride 0.65% Na Soln 45 Ml (Traver)) 1 sprays NA NOW STA Stop: 12/05/24 04:56 Last Admin: 12/05/24 05:36 Dose: 1 sprays Documented By: PANFILO Imaging Data Radiologist's Impression: Chest X-Ray 12/04/24 12:25 XR chest 1V portable CLINICAL HISTORY: Dyspnea COMPARISON STUDY: 10/09/2024 FINDINGS: Stable pacemaker. Stable prominent cardiomegaly with mild pulmonary vascular congestion. Stable mild elevation of the left hemidiaphragm. There is increased stranding opacity in the lung bases with obscuration of the left hemidiaphragm. There is blunting of the costophrenic angles. No pneumothorax. IMPRESSION: 1. CHF. 2. Atelectasis versus pneumonia in the lung bases. Possible trace pleural effusions. ACT 112: Negative or not required by law. Electronically signed by: Rodríguez Roldan M.D. 12/04/2024 1:27 PM Discharge Plan Visit Data Chief Complaint: Respiratory Problems Stated Complaint: POSSIBLE PNEUMONIA ED Provider: Juan Meredith Discharge Problem: Acute hypoxemic respiratory failure, Acute exacerbation of chronic obstructive airways disease, Acute pneumonia Patient Disposition: Admitted As Inpatient Condition: Fair Discharge Instructions Interventions: ED Discharge Assessment Last Done: 12/05/24 02:52
[2024-12-04] MEDS: ALBUT/IPRATROP 3MG/0.5MG NEB 3 ML VIAL INH STA (12:51)
[2024-12-04 13:03] LABS: Base Excess VBG 6.6 mEq/L; HCO3 VBG 31 mmol/L; Oxygen Saturation VBG < 60.0 %; PCO2 VBG 44 mmHg (38-50); PO2 VBG 29 mmHg; pH VBG 7.46 (7.36-7.41)
[2024-12-04] MEDS: CEFEPIME 2000MG 2,000 MG/20 ML SYR IV STA (13:20)
--- NOTE | 2024-12-04 13:28 | XRay Report ---
XR chest 1V portable CLINICAL HISTORY: Dyspnea COMPARISON STUDY: 10/09/2024 FINDINGS: Stable pacemaker. Stable prominent cardiomegaly with mild pulmonary vascular congestion. St able mild elevation of the left hemidiaphragm. There is increased stranding opacity in the lung bases with obscuration of the left hemidiaphragm. There is blunting of the costophrenic angles. No pneumot horax. IMPRESSION: 1. CHF. 2. Atelectasis versus pneumonia in the lung bases. Possible trace pleural effusions. ACT 112: Negative or not required by law. Electronically signed by: Rodríguez Roldan M.D. 12/04/2024 1:27 PM
[2024-12-04 13:36] LABS: Hematocrit (blood only) 41.4 % (42.0-52.0); Hemoglobin 13.8 g/dl (14.0-18.0); Immature Granulocytes # (auto) 0.08 K/uL (0.01-0.20); Immature Granulocytes % (auto) 0.7 %; Mean Corpuscular Hemoglobin 28.4 pg (25.0-34.0); Mean Corpuscular Volume 85.2 fL (80.0-100.0); Platelet Count 334 K/uL (130-400); RDW Standard Deviation 47.9 fL (36.4-46.3); Red Blood Count 4.86 M/uL (4.70-6.10); White Blood Count 11.03 K/ul (4.8-10.8)
[2024-12-04 13:46] LABS: INR 1.1 (0.9-1.1); Partial Thromboplastin Time 29 Seconds (21-31); Prothrombin Time 12.0 Seconds (9.0-12.0)
[2024-12-04 13:52] LABS: Potassium 4.1 mmol/L (3.5-5.1)
[2024-12-04 14:01] LABS: Chlamydia pneumoniae PCR Not Detected (NotDetected); Coronavirus 229E PCR Not Detected (NotDetected); Coronavirus CoV-2 (COVID19)PCR Not Detected (NotDetected); Coronavirus HKU1 PCR Not Detected (NotDetected); Coronavirus NL63 PCR Not Detected (NotDetected); Coronavirus OC43PCR Not Detected (NotDetected); Human Metapneumovirus PCR Not Detected (NotDetected); Parainfluenza Virus 1 PCR Not Detected (NotDetected); Parainfluenza Virus 2 PCR Not Detected (NotDetected); Parainfluenza Virus 3 PCR Not Detected (NotDetected); Parainfluenza Virus 4 PCR Not Detected (NotDetected); Respiratory Syncytial VirusPCR Not Detected (NotDetected); Rhinovirus/Enterovirus PCR Not Detected (NotDetected)
[2024-12-04 14:02] LABS: Alanine Aminotransferase 15.0 U/L (7-52); Albumin Globulin Ratio 1.0 (0.9-2); Alkaline Phosphatase 64.0 U/L (34-104); Anion Gap 9.0 (3-11); Bilirubin,Total 0.6 mg/dl (0.2-1.0); Blood Urea Nitrogen 21.0 mg/dl (6-23); Calcium 9.3 mg/dl (8.6-10.3); Carbon Dioxide 27.0 mmol/L (21-32); Chloride 100.0 mmol/L (98-107); Creatinine Clr Calc Pharmacy 78.8 ml/min; Globulin 4.0 gm/dl (2.5-4.0); Glucose 116.0 mg/dl (70-99(Fasting)); Sodium 136.0 mmol/L (136-145); Total Protein 8.1 gm/dl (6.0-8.3)
[2024-12-04] MEDS: ALBUT/IPRATROP 3MG/0.5MG NEB 3 ML VIAL NEB STA (14:04)
[2024-12-04] MEDS ORDERED: VANCOMYCIN CONSULT ACTIVE PRN (16:08)
[2024-12-04] MEDS ORDERED: VANCOMYCIN HCL 1,500 MG in SODIUM CHLORIDE 0.9% 500 ML IV SCH (16:15)
--- NOTE | 2024-12-04 16:35 | History & Physical Report ---
Date of Service December 04, 2024 Assessment & Plan (1) Acute respiratory failure: (2) Acute pneumonia: Plan Royce Louise is a 79 yo male with PMH of CAD s/p ICD, A-fib, CHF, PCN allergy, COPD (room air baseline, quitted in 1992), hx of PE, PVD chronic wound, BPH with LUTS. hx of 2 prior MA with ICD placement his ICD battery has 3 months remained. has had multiple admission for CHF, PNA. on this admission. he presented on 12/04 with 5 days of drying cough, shortness of breath and noted to have acute respiratory failure on 6 liter and bronchitis and PNA he's has PCN allergy. plan for admission for IV doxycycycline and management for acute respiratory failure. he's need inpatient monitor for IV steroid, oxygen, PT evaluation 1. acute respiratory failure, pneumonia 2. CHF, CAD s/p ICD, A-fib on eliquis 3. hx of COPD (room air baseline) 4. gastroparesis, GERD 5. BPH 6. chronic pain, severe hand arthritis 7. chronic wound overall plan admitted to medicine services for acute respiratory failure, bronchitis IV doxycycyline and zpack, mucinex, inhale hypertonic saline speech eval to r/o microaspiration lactulose one time for constipation. 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 acute respiratory failure, pneumonia IV antibiotics, doxycycyline and van avoid PCN given allergy (intractable vomiting for 12-20 hours) hypertonic saline, inhale mucomyst, mucinex 1200 BID speech eval for microaspiration 2. CHF, CAD s/p ICD and A-fib his cardiology noted that ICD battery has 2-3 months of lifespan left he's on bumex 2mg daily, aldactone 25mg coreg 3.125mg , eliquis BID 3. COPD, quitted smoking in 1992, he's on room air at baseline multiple hospitalization he's on stiolto 2 puff inhale daily morning 4. neuropathy, ?? parkinson he's on pramipexole 0.125mg tablet 5. gastroparesis, GERD, metoclopramide 5mg BID, protonix 40 BID trend h?h level 6. constipation c/w senna 8.6 BID and docusate 100g BID c/w miralax bID, Home med 7. hypokalemia-c/w kcl 20mg BID 8. BPH-finsteride 5mg daily 7. mood disorder-wellbturin 100mg BID 8. 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 eye condition, c/w refresh lacri-lube, artificial tear 10. chronic wound, pressure ulcer of the left foot stage 3 was seen by wound on 12/01. avoid wearing brace till wound is heal no new foot wear. 11. hx of macular degeneration. 12. hx of PVD History of Present Illness Chief Complaint: CC: coughing, hypoxic since 5 days ago hypoxic on 6 liter hx of severe PCN allergy Primary Care Provider: Tramaine Peterson MD Mr. Royce Louise is a 79 yo man with PMH of COPD, CHF, CAD s/p ICD, A-fib on eliquis, sleep apnea, BPH with LUTS. he has severe PCN allergy, GERD he's has hx of abnormal stress test but determine high risk for PCI. He has several admission for CHF, PNA, in September 2024, entresto was introduced but that resulted in hypotension. bumex dose increasd to 2mg daily his was bumex 2mg for volume overload and Aldactone. his AICd was interrogate and was expecting battery life of 3 months. on this admission, he's presented to our hospital with 5 days history of dry cough, congestion, shortness of breath. he's was found to be hypoxic on 6 liter oxygen (he's normally on room air) and admitted for acute hypoxic respiratory, bronchitis, pneumonia he's s/p cefepime in the Ed, plan for IV vancomycin, doxycycline he's is full code. started him on mucinex, hypertonic saline and inhaled mucomycst. . Allergies Allergy/AdvReac Type Severity Reaction Status Date / Time bee venom protein (honey bee) Allergy Severe Swelling, Verified 12/04/24 16:07 Shortness of Breath Penicillins Allergy Severe Swelling, Verified 12/04/24 16:07 Difficulty Breathing lidocaine Allergy Mild Rash Verified 12/04/24 15:20 gabapentin Allergy Unknown Unknown Verified 12/04/24 16:07 icosapent ethyl Allergy Unknown Unknown Verified 12/04/24 16:07 pregabalin Allergy Unknown Unknown Verified 12/04/24 16:07 cefdinir AdvReac Severe Vomiting Verified 12/04/24 16:07 hydrocodone AdvReac Intermediate Gastrointestinal Verified 12/04/24 16:07 Upset oxycodone AdvReac Intermediate Gastrointestinal Verified 12/04/24 16:07 Upset ertapenem AdvReac Mild Vomiting Verified 12/04/24 15:20 Home Medications Medication Instructions Recorded Confirmed Type albuterol sulfate 90 mcg/actuation 2 puffs inhalation Q6H PRN 12/01/18 12/04/24 History aerosol inhaler Shortness Of Breath Or Wheezing bupropion HCl 100 mg tablet 100 mg PO BID 12/01/18 12/04/24 History docusate sodium 100 mg capsule 100 mg PO BID 12/01/18 12/04/24 History finasteride 5 mg tablet (Proscar) 5 mg PO QAM 12/01/18 12/04/24 History aspirin 81 mg tablet,delayed 81 mg PO QAM 12/21/18 12/04/24 History release sennosides 8.6 mg tablet 17.2 mg PO BID PRN Constipation 12/21/18 12/04/24 History white petrolatum-mineral oil 56.8 1 applic OPB HS 12/21/18 12/04/24 History %-42.5 % eye ointment (Refresh Lacri-Lube) pantoprazole 40 mg tablet,delayed 40 mg PO BID 03/10/21 12/04/24 History release (Protonix) tiotropium 2.5 mcg-olodaterol 2.5 2 puff inhalation QAM 12/02/22 12/04/24 History mcg/actuation mist for inhalation (Stiolto Respimat) epinephrine 0.3 mg/0.3 mL 0.3 mg IM DIRECTED PRN 07/08/23 12/04/24 History injection, auto-injector Anaphylaxis apixaban 5 mg tablet (Eliquis) 5 mg PO BID #180 tabs 11/23/23 12/04/24 Rx vitamins A,C,D-tzdu-sadxpm 4,296 1 cap PO BID 03/27/24 12/04/24 History mcg-226 mg-90 mg capsule (PreserVision AREDS) aluminum hydroxide gel 320 mg/5 mL 960 mg PO HS Heartburn 06/16/24 12/04/24 History oral suspension oxycodone 10 mg tablet,crush 10 mg PO Q12H Severe Chronic Pain 06/16/24 12/04/24 History resistant,extended release 12 hr (OxyContin) bumetanide 2 mg tablet 2 mg PO QAM 10/25/24 12/04/24 History ipratropium 0.5 mg-albuterol 3 mg 3 ml NEB Q6R PRN Shortness Of 10/25/24 12/04/24 History (2.5 mg base)/3 mL nebulization Breath Or Wheezing soln spironolactone 25 mg tablet 25 mg PO DAILY #90 tabs 10/31/24 12/04/24 Rx polyethylene glycol 3350 17 gram 17 g PO DAILY PRN Constipation 11/15/24 12/04/24 History oral powder packet (Miralax) menthol 0.44 %-zinc oxide 20.6 % 1 applic topical BID Skin 11/21/24 12/04/24 History topical ointment (Calmoseptine) irritation rosuvastatin 20 mg tablet 10 mg PO DAILY 11/21/24 12/04/24 History tamsulosin 0.4 mg capsule 0.4 mg PO HS #30 caps 11/29/24 12/04/24 Rx pramipexole 0.375 mg 0.375 mg PO DAILY #30 tabs 11/30/24 12/04/24 Rx tablet,extended release 24 hr carvedilol 6.25 mg tablet 3.125 mg PO BID 12/04/24 12/04/24 History clotrimazole 1 % topical cream 1 applic topical BID 12/04/24 12/04/24 History food supplemt, lactose-reduced 1 ea PO TID 12/04/24 12/04/24 History (Ensure oral liquid) metoclopramide HCl 10 mg tablet 10 mg PO AC 12/04/24 12/04/24 History tiotropium 2.5 mcg-olodaterol 2.5 2 puff inhalation DAILY 12/04/24 12/04/24 History mcg/actuation mist for inhalation (Stiolto Respimat) triamcinolone acetonide 0.025 % 1 applic topical DAILY 12/04/24 12/04/24 History topical cream Past Med/Surg History Problem List (Updated 12/04/24 @ 16:35 by Kala Allen DO) Acute pneumonia Acute respiratory failure Presence of biventricular automatic cardioverter/defibrillator (AICD) [employer] [place] [facility] [place] [facility] Ischemic cardiomyopathy Pressure ulcer of left foot, stage 3 (Acute) Chest pain (Acute) BPH w urinary obs/LUTS (Chronic) Renal cyst (Chronic) Nephrolithiasis (Chronic) Infection due to ESBL-producing Escherichia coli Pleural effusion due to CHF (congestive heart failure) Recurrent UTI (Chronic) Acute hypoxemic respiratory failure (Acute) Acute exacerbation of CHF (congestive heart failure) (Acute) Anticoagulant long-term use Stage III pressure ulcer of buttock (Acute) Centrilobular emphysema Bilateral foot-drop Spasticity upper limbs Agent orange exposure Ulnar neuropathy of both upper extremities Cervicogenic headache Complex renal cyst Cervical radiculopathy (Acute) Cervical spondylosis without myelopathy (Acute) Idiopathic peripheral neuropathy (Acute) Elevated PSA Biliary dyskinesia (Chronic) Balance problem Medical History History of blood transfusion x3 units "quite awhile ago" per patient Diverticular disease Incidental finding on colonoscopy per patient Recurrent UTI (urinary tract infection) multiple - just completed antibiotic Nephrolithiasis History of ESBL E. coli infection EMR 09/05/24 Idiopathic peripheral neuropathy Bilateral Lower Extremities Complex renal cyst Per records Centrilobular emphysema [facility] Cervical radiculopathy Full ROM per patient Gait disturbance Walker/Wheelchair Parkinsonism [facility] [place] [facility] Agent orange exposure Opioid dependence COPD (chronic obstructive pulmonary disease) [facility] Permanent atrial fibrillation [facility] [facility] Pressure ulcer of left heel, stage 4 [facility] [place] [facility] Atherogenic dyslipidemia Cardiomyopathy [facility] [place] [facility] HFrEF (heart failure with reduced ejection fraction) [facility] [place] [facility] Presence of combination internal cardiac defibrillator (ICD) and pacemaker Implanted 2010, replaced in Biventricular Medtronic History of urinary self-catheterization self caths every other night CAD (coronary artery disease) 2011- stent x1 Follows with [facility] [place] Sleep apnea BiPap with 1.5L of O2 BPH loc w urin obs/LUTS Atrial tachycardia [facility] CHF (congestive heart failure) [facility] [place] [facility] Benign essential hypertension Elevated lactic acid level Unstageable pressure ulcer of left heel [facility] [place] [facility] Intrinsic minus hand Bilateral Episode of confusion [facility] [place] [facility] Chest pain Resolved, denies at this time Peripheral arterial disease Hypertension Tremor Complex sleep apnea syndrome NYHA class 4 acute on chronic systolic heart failure [facility] [place] [facility] Legally blind Chronic back pain History of DVT of lower extremity 2010 Macular degeneration Hearing deficit Bilateral Hearing Aids - Does not wear Depression Migraine Myocardial Infarction 2010 Pulmonary embolism 1992 + 2010 after heart attack Asthma Surgical History [place] [facility] [place] of [place]ase[place] Status post coronary artery stent placement x1 stent - 2010 - [facility] [place] [facility] S/P epidural steroid injection History of foot surgery Right plantar fasciitis History of open reduction and internal fixation (ORIF) procedure left foot--hardware removed History of prostate biopsy x3--precancerous, just monitoring for now History of prostate surgery 07/2016--[facility] prostate vaproization History of cystoscopy multiple History of colonoscopy with polypectomy History of esophagogastroduodenoscopy (EGD) History of right inguinal hernia repair x3 History of Khari fundoplication History of cholecystectomy History of tooth extraction Upper/Lower Partial History of eye surgery right--macular degeneration History of bilateral cataract extraction History of cardiac cath 10/2010 @ [facility]--1 stent placed Family History Son Family history of diabetes mellitus Other Family history non-contributory No family history of adverse response to anesthesia Social History Smoking Status: Former smoker Tobacco Type: Cigarettes Cigarettes Per Day: 1992; Second Hand Exposure: No; Do You Dip or Chew Tobacco: No; Hx Alcohol Use: No Hx Substance Use: No Preferred Language: Tamazight Communication Ability: Effective Visual Impairment: Partially Limited Hearing Ability: Use of Hearing Aid Technical Business Analyst Required: No Beliefs That Will Affect Care: None marital status: Current Living Situation: Spouse current occupational status: retired How many Children do You have: 1 How many Children do You have Comment: son , able to assist with care as needed Feels Safe at Home: Yes Diet: low salt and regular caffeine: Yes during the past year weight has: remained stable Physical Activity Frequency: 3-4 Times per Week Assistive Devices: BiPap, Glasses, Hearing Aid - Bilateral, Lift Chair, Raised Toilet Seat, Stair Lift, Walker, Wheelchair and Other Review of Systems Review of Systems: Constitutional: No Weight Change, No Fever, No Chills, No Night Sweats, Cardiovascular: No Chest Pain, No SOB, No PND, No Orthopnea, No Claudication, No Edema, No Palpitations Respiratory: + for coughing, no sputum, + for shortness of breath. no muscle achiness ID: no recent travel Gastrointestinal: No Nausea, No Vomiting, No Diarrhea, + for constipation Genitourinary: + for BPH, + for recent urological procedure Musculoskeletal: No Arthralgias, No Myalgias, Skin: No Skin Lesions, No Pruritis, No Hair Changes, No Breast/Skin Changes, No Nipple Discharge Neuro: No Weakness, No Numbness, No Paresthesias, No Loss of Consciousness, No Syncope, No Dizziness, No Headache, No Coordination Changes, No Recent Falls Psych: No Anxiety/Panic, No Depression, No Insomnia, No Personality Changes, No Delusion Heme/Lymph: No Bruising, No Bleeding, Endocrine: No Polyuria, No Polydipsia, No Temperature Intolerance Physical Exam Physical Exam: General: chronically ill; non-toxic appearing HEENT:AT/NC heart: normal s1; s2; RRR lung: + for wheezing; decrease breath sound; no accessory muscle usage. on oxygen abdomen: soft to touch; non-tender to palpation; MSK; no edema neuro: AAOx3; hard of hearing psych: calm; cooperative Results & Data Results & Data Vital Signs (Past 12 Hours) Vital Signs Temp Pulse Pulse Resp BP BP Pulse Ox 12/04/24 16:03 90 12/04/24 14:00 89 20 127/81 90 12/04/24 13:46 87 L 12/04/24 13:08 89 12/04/24 12:57 87 22 92 12/04/24 12:57 90 21 126/83 92 12/04/24 12:57 90 12/04/24 12:08 36.6 C 94 H 17 116/78 85 L O2 Del Method O2 Flow Rate 12/04/24 16:03 12/04/24 14:00 Nasal Cannula 6 12/04/24 13:46 Nasal Cannula 2 12/04/24 13:08 12/04/24 12:57 Nebulizer 7 12/04/24 12:57 Nebulizer 7 12/04/24 12:57 Nasal Cannula 2 12/04/24 12:08 Room Air Laboratory Results Laboratory Results - last 72 hr 12/04/24 12:45 WBC 11.03 H RBC 4.86 Hgb 13.8 L Hct 41.4 L MCV 85.2 MCH 28.4 MCHC 33.3 RDW Std Deviation 47.9 H RDW Coeff of Jerry 15.3 H Plt Count 334 MPV 10.7 Immature Gran % (Auto) 0.7 Neut % (Auto) 67.1 Lymph % (Auto) 21.2 Shelby % (Auto) 6.8 Eos % (Auto) 3.8 Baso % (Auto) 0.4 Neut # (Auto) 7.40 H Lymph # (Auto) 2.34 Shelby # (Auto) 0.75 H Eos # (Auto) 0.42 Baso # (Auto) 0.04 Immature Gran # (Auto) 0.08 PT 12.0 INR 1.1 APTT 29 PTT Ratio 1.1 VBG pH 7.46 H VBG pCO2 44 VBG pO2 29 VBG HCO3 31 VBG O2 Saturation < 60.0 VBG Base Excess 6.6 Sodium 136 Potassium 4.1 Chloride 100 Carbon Dioxide 27 Anion Gap 9 BUN 21 Creatinine 0.94 Est Cr Clr Drug Dosing 78.8 eGFR 82.46 BUN/Creatinine Ratio 22.3 H Glucose 116 H Lactate 1.8 Calcium 9.3 Total Bilirubin 0.6 AST 16 ALT 15 Alkaline Phosphatase 64 Troponin I High Sens 15.6 Total Protein 8.1 Albumin 4.1 Globulin 4.0 Albumin/Globulin Ratio 1.0 Procalcitonin 0.03 Nasal Screen MRSA (PCR) Negative Adenovirus (PCR) Not Detected B. pertussis DNA (PCR) Not Detected B.parapertussis DNA PCR Not Detected C. pneumoniae DNA (PCR) Not Detected Coronavirus OC43 (PCR) Not Detected Coronavirus HKU1 (PCR) Not Detected Coronavirus 229E (PCR) Not Detected SARS-CoV-2 (PCR) Not Detected Coronavirus NL63 (PCR) Not Detected Human Metapneumovir PCR Not Detected Influenza Type A (PCR) Not Detected Influenza Type B (PCR) Not Detected M. pneumoniae (PCR) Not Detected Parainfluenza 1 (PCR) Not Detected Parainfluenza 2 (PCR) Not Detected Parainfluenza 3 (PCR) Not Detected Parainfluenza 4 (PCR) Not Detected RSV (PCR) Not Detected Entero/Rhino (PCR) Not Detected Medications Administered Current Inpatient Medications Acetylcysteine (Acetylcysteine 20% Inhal Soln 4ml Dispensed By Resp.) 5 ml INH Q12R [facility] Stop: 01/03/25 18:59 Doxycycline Hyclate (Doxycycline Hyclate 100 Mg Cap) 100 mg PO BID [facility] Stop: 12/09/24 20:59 Guaifenesin (Guaifenesin 600 Mg Tabcr) 1,200 mg PO Q12 [facility] Stop: 01/03/25 15:59 Vancomycin HCl 1,500 mg/ (Sodium Chloride) 500 mls @ 200 mls/hr IV UD [facility] Stop: 12/06/24 16:14 Miscellaneous Information (Vancomycin Consult Active) 1 each N/A UD PRN PRN Reason: Consult Stop: 01/03/25 16:07 Ondansetron HCl (Ondansetron Inj 2 Mg/Ml 2 Ml Vial) 4 mg IV Q4H PRN PRN Reason: Nausea And Vomiting Stop: 01/03/25 16:07 Sodium Chloride (Sodium Chlor 7% 4 Ml Neb) 4 ml NEB BIDR [facility] Stop: 01/03/25 15:59 Code Status & VTE Plan Code Status full code PG Care Time/CCT Total # of Minutes Spent Total Time Spent with Patient: Total time spent is greater than 50% in coordination of care (as documented) at patient's floor/unit and/or counseling patient: Coding Level of Care Code 24380 INT INP/OBS CARE 2/55MIN Diagnoses Acute respiratory failure J96.00 Acute pneumonia J18.9 Time Spent (min) 55
[2024-12-04] MEDS: SODIUM CHLOR 7% 4 ML NEB NEB SCH (16:42)
[2024-12-04] MEDS: guaiFENesin 600 MG TABCR PO SCH (16:42)
[2024-12-04] MEDS ORDERED: MENTHOL-ZINC OXIDE 360 APPLN/120 GM TUBE EXT PRN (18:07)
[2024-12-04] MEDS ORDERED: PHENAZOPYRIDINE HCL 200 MG TAB PO PRN (18:07)
[2024-12-04] MEDS ORDERED: SIMETHICONE 80 MG CHEW PO PRN (18:07)
[2024-12-04] MEDS ORDERED: NITROGLYCERIN SL 0.4 MG/TAB TAB SL PRN (18:07)
[2024-12-04] MEDS ORDERED: ALBUTEROL HFA 8 GM INHALER INH PRN (18:07)
[2024-12-04] MEDS ORDERED: ACETAMINOPHEN 325 MG TAB PO PRN (18:07)
[2024-12-04] MEDS: ALBUT/IPRATROP 3MG/0.5MG NEB 3 ML VIAL NEB PRN (19:48)
[2024-12-04] MEDS: ACETYLCYSTEINE 20% INHAL SOLN 4ML ***DISPENSED BY RESP. INH SCH (20:01)
[2024-12-04] MEDS: TAMSULOSIN HCL 0.4 MG CAP PO SCH (21:15)
[2024-12-04] MEDS: CEROVITE ADV FORMULA TAB PO SCH (21:15)
[2024-12-04] MEDS: DOXYCYCLINE HYCLATE 100 MG CAP PO SCH (21:15)
[2024-12-04] MEDS: METOCLOPRAMIDE HCL 5 MG TABLET PO SCH (21:15)
[2024-12-04] MEDS: APIXABAN 5 MG TABLET PO SCH (21:15)
[2024-12-04] MEDS: POTASSIUM CHLORIDE CRTAB 20 MEQ TABCR PO SCH (22:56)
[2024-12-04] MEDS: SENNA 8.6 MG TAB PO SCH (22:57)
[2024-12-04] MEDS: DOCUSATE SODIUM 100 MG CAP PO SCH (22:57)
[2024-12-04] MEDS: ARTIFICIAL TEARS OP SCH (22:58)
[2024-12-04] MEDS: POLYETHYLENE (MIRALAX) 17 GM PACK PO SCH (22:59)
[2024-12-05] MEDS: SODIUM CHLORIDE 0.65% NA SOLN 45 ML (OCEAN) STA (05:36)
[2024-12-05 07:25] LABS: Hematocrit (blood only) 39.0 % (42.0-52.0); Hemoglobin 12.3 g/dl (14.0-18.0); Mean Corpuscular Hemoglobin 27.4 pg (25.0-34.0); Mean Corpuscular Volume 86.9 fL (80.0-100.0); Platelet Count 307 K/uL (130-400); RDW Standard Deviation 48.6 fL (36.4-46.3); Red Blood Count 4.49 M/uL (4.70-6.10); White Blood Count 11.85 K/ul (4.8-10.8)
[2024-12-05 07:45] LABS: Alanine Aminotransferase 12.0 U/L (7-52); Albumin Globulin Ratio 1.1 (0.9-2); Alkaline Phosphatase 57.0 U/L (34-104); Anion Gap 10.0 (3-11); Bilirubin,Total 0.4 mg/dl (0.2-1.0); Blood Urea Nitrogen 28.0 mg/dl (6-23); Calcium 9.2 mg/dl (8.6-10.3); Carbon Dioxide 25.0 mmol/L (21-32); Chloride 100.0 mmol/L (98-107); Creatinine Clr Calc Pharmacy 77.9 ml/min; Globulin 3.5 gm/dl (2.5-4.0); Glucose 162.0 mg/dl (70-99(Fasting)); Potassium 4.0 mmol/L (3.5-5.1); Sodium 135.0 mmol/L (136-145); Total Protein 7.2 gm/dl (6.0-8.3)
[2024-12-05] MEDS ORDERED: POLYETHYLENE (MIRALAX) 17 GM PACK PO SCH (09:00)
[2024-12-05] MEDS: FINASTERIDE 5 MG TAB PO SCH (09:03)
[2024-12-05] MEDS: MULTIVITAMIN TAB PO SCH (09:04)
[2024-12-05] MEDS: BUMETANIDE 1 MG TAB PO SCH (09:04)
[2024-12-05] MEDS: SPIRONOLACTONE 25 MG TAB PO SCH (09:04)
[2024-12-05] MEDS: ASPIRIN 81 MG ECTAB PO SCH (09:05)
[2024-12-05] MEDS: CETIRIZINE HCL 10 MG TABLET PO SCH (09:07)
[2024-12-05] MEDS: ROSUVASTATIN CALCIUM 20 MG TAB PO SCH (09:08)
[2024-12-05 09:41] LABS: Magnesium 2.2 mg/dl (1.7-2.4)
--- NOTE | 2024-12-05 09:42 | Hospitalist Progress Note ---
Date of Service December 05, 2024 Assessment & Plan (1) Acute respiratory failure: (2) Acute pneumonia: Plan Royce Louise is a 79 yo male with PMH of CAD s/p ICD, A-fib, CHF, PCN allergy, COPD (room air baseline, quitted in 1992), hx of PE, PVD chronic wound, BPH with LUTS. hx of 2 prior NV with ICD placement his ICD battery has 3 months remained. has had multiple admission for CHF, PNA. on this admission. he presented on 12/04 with 5 days of drying cough, shortness of breath and noted to have acute respiratory failure on 6 liter and bronchitis and PNA he's has PCN allergy. plan for admission for IV doxycycycline and management for acute respiratory failure. he's need inpatient monitor for IV steroid, oxygen, PT evaluation 1. acute respiratory failure, pneumonia 2. CHF, CAD s/p ICD, A-fib on eliquis 3. hx of COPD (room air baseline) 4. gastroparesis, GERD 5. BPH 6. chronic pain, severe hand arthritis 7. chronic wound overall plan still on 4 liter oxygen c/w doxycycyline, zpack. mucinex PT/OT evaluation, speech for microaspiration. wound care eval discharge more than 48 hours away ongoing hypoxia on 4 liter. ongoing WBC elevation. 1. acute respiratory failure, pneumonia IV antibiotics, doxycycyline and van avoid PCN given allergy (intractable vomiting for 12-20 hours) hypertonic saline, inhale mucomyst, mucinex 1200 BID speech eval for microaspiration 2. CHF, CAD s/p ICD and A-fib cardiology noted that ICD battery has 2-3 months of lifespan left bumex 2mg daily, aldactone 25mg coreg 3.125mg , eliquis BID 3. COPD, quitted smoking in 1992 room air at baseline multiple hospitalization he's on stiolto 2 puff inhale daily morning his pulmonary physician is located at [facility] (formerly [facility]). 4. neuropathy, ?? parkinson he's on pramipexole 0.125mg tablet 5. gastroparesis, GERD, metoclopramide 5mg BID, protonix 40 BID 6. constipation c/w senna 8.6 BID and docusate 100g BID c/w miralax bID, Home med 7. hypokalemia-c/w kcl 20mg BID 8. BPH-finsteride 5mg daily 7. mood disorder-wellbturin 100mg BID 8. 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 macular degeneration, dry eyee, c/w refresh lacri-lube, artificial tear 10. chronic wound, pressure ulcer of the left foot stage 3 was seen by wound on 12/01. avoid wearing brace till wound is heal no new foot wear. 11. hx of macular degeneration. 12. hx of PVD Admission and Anticipated Discharge Date Admission Date: December 04, 2024 Subjective he still has congestion and shortness of breath. still on 4 liter oxygen. WBC still elevated. avoid PCN containing med IV doxycycline discharge more than 48 hours away his lung specialist is located at [facility]. Review of Systems Review of Systems: Constitutional: No Weight Change, No Fever, No Chills, No Night Sweats, No Fatigue, No Malaise Cardiovascular: No Chest Pain, No SOB, No PND, No Orthopnea No Edema, No Palpitations Respiratory: + for cough, congestion; + for shortness of breath. Gastrointestinal: No Nausea, No Vomiting, No Diarrhea, No Constipation, No Heartburn, No Anorexia, No Dysphagia, No Hematochezia, No Melena Musculoskeletal: no muscle achiness Neuro: No Weakness, No Numbness, No Paresthesias, No Loss of Consciousness, No Syncope, No Dizziness, No Headache. Endocrine: No Polyuria, No Polydipsia, No Temperature Intolerance Physical Exam Physical Exam: VITALS: Reviewed. WEIGHT/BMI reviewed. GEN: chronically ill appearing; non-toxic PSYCH: Good Judgment. AOx3 -Head: NC/AT; NECK: no JVD CV: RRR, no m/r/g. LUNGS: congested breath sound; + for wheeze and rales; on oxygen; ABD: Soft, NT/ND, NBS, no masses or organomegaly. SKIN: Warm, well perfused. No skin rashes or abnormal lesions. MSK: No deformities, Normal gait. EXT: No clubbing, cyanosis, or edema. NEURO: AAOx3 Results & Data Results & Data Vital Signs (Past 12 Hours) Vital Signs Temp Pulse Pulse Resp BP BP Pulse Ox 12/05/24 07:43 90 12/05/24 07:43 83 16 95 12/05/24 07:27 36.4 C L 91 H 18 118/73 95 12/05/24 05:03 88 95 12/05/24 04:02 36.2 C L 90 18 126/78 96 12/05/24 04:00 91 H 12/05/24 03:35 12/05/24 02:52 91 H 24 131/84 96 12/05/24 01:30 89 25 H 132/93 96 12/05/24 00:16 12/05/24 00:16 36.9 C 89 26 H 127/85 95 12/05/24 00:00 85 24 127/85 96 12/05/24 00:00 12/04/24 22:59 91 H Pulse Ox O2 Del Method O2 Del Method O2 Flow Rate O2 Flow Rate 12/05/24 07:43 12/05/24 07:43 Nasal Cannula 4 12/05/24 07:27 Nasal Cannula 6 12/05/24 05:03 Nasal Cannula 6 12/05/24 04:02 Nasal Cannula 6 12/05/24 04:00 12/05/24 03:35 Nasal Cannula 6 12/05/24 02:52 Nasal Cannula 6 12/05/24 01:30 Nasal Cannula 6 12/05/24 00:16 Nasal Cannula 6 12/05/24 00:16 Nasal Cannula 6 12/05/24 00:00 Nasal Cannula 6 12/05/24 00:00 96 Nasal Cannula 6 12/04/24 22:59 Laboratory Results Laboratory Results - last 72 hr 12/04/24 12/05/24 12:45 05:46 WBC 11.03 H 11.85 H RBC 4.86 4.49 L Hgb 13.8 L 12.3 L Hct 41.4 L 39.0 L MCV 85.2 86.9 MCH 28.4 27.4 MCHC 33.3 31.5 L RDW Std Deviation 47.9 H 48.6 H RDW Coeff of Jerry 15.3 H 15.3 H Plt Count 334 307 MPV 10.7 10.6 Immature Gran % (Auto) 0.7 Neut % (Auto) 67.1 Lymph % (Auto) 21.2 [place] % (Auto) 6.8 Eos % (Auto) 3.8 Baso % (Auto) 0.4 Neut # (Auto) 7.40 H Lymph # (Auto) 2.34 [place] # (Auto) 0.75 H Eos # (Auto) 0.42 Baso # (Auto) 0.04 Immature Gran # (Auto) 0.08 PT 12.0 INR 1.1 APTT 29 PTT Ratio 1.1 VBG pH 7.46 H VBG pCO2 44 VBG pO2 29 VBG HCO3 31 VBG O2 Saturation < 60.0 VBG Base Excess 6.6 Sodium 136 135 L Potassium 4.1 4.0 Chloride 100 100 Carbon Dioxide 27 25 Anion Gap 9 10 BUN 21 28 H Creatinine 0.94 0.95 Est Cr Clr Drug Dosing 78.8 77.9 eGFR 82.46 81.42 BUN/Creatinine Ratio 22.3 H 29.5 H Glucose 116 H 162 H Lactate 1.8 Calcium 9.3 9.2 Total Bilirubin 0.6 0.4 AST 16 13 ALT 15 12 Alkaline Phosphatase 64 57 Troponin I High Sens 15.6 Total Protein 8.1 7.2 Albumin 4.1 3.7 Globulin 4.0 3.5 Albumin/Globulin Ratio 1.0 1.1 Procalcitonin 0.03 Nasal Screen MRSA (PCR) Negative Adenovirus (PCR) Not Detected B. pertussis DNA (PCR) Not Detected B.parapertussis DNA PCR Not Detected C. pneumoniae DNA (PCR) Not Detected Coronavirus OC43 (PCR) Not Detected Coronavirus HKU1 (PCR) Not Detected Coronavirus 229E (PCR) Not Detected SARS-CoV-2 (PCR) Not Detected Coronavirus NL63 (PCR) Not Detected Human Metapneumovir PCR Not Detected Influenza Type A (PCR) Not Detected Influenza Type B (PCR) Not Detected M. pneumoniae (PCR) Not Detected Parainfluenza 1 (PCR) Not Detected Parainfluenza 2 (PCR) Not Detected Parainfluenza 3 (PCR) Not Detected Parainfluenza 4 (PCR) Not Detected RSV (PCR) Not Detected Entero/Rhino (PCR) Not Detected Diagnostic Findings Chest X-Ray 12/04/24 12:25 XR chest 1V portable CLINICAL HISTORY: Dyspnea COMPARISON STUDY: 10/09/2024 FINDINGS: Stable pacemaker. Stable prominent cardiomegaly with mild pulmonary vascular congestion. Stable mild elevation of the left hemidiaphragm. There is increased stranding opacity in the lung bases with obscuration of the left hemidiaphragm. There is blunting of the costophrenic angles. No pneumothorax. IMPRESSION: 1. CHF. 2. Atelectasis versus pneumonia in the lung bases. Possible trace pleural effusions. ACT 112: Negative or not required by law. Electronically signed by: Rodríguez Roldan M.D. 12/04/2024 1:27 PM Medications Administered Current Inpatient Medications Acetaminophen (Acetaminophen 325 Mg Tab) 650 mg PO Q6H PRN PRN Reason: Pain/Fever Stop: 01/03/25 18:06 Acetylcysteine (Acetylcysteine 20% Inhal Soln 4ml Dispensed By Resp.) 5 ml INH Q12R TEDDY Stop: 01/03/25 18:59 Last Admin: 12/05/24 07:42 Dose: 5 ml Albuterol (Albuterol Hfa 8 Gm Inhaler) 2 puffs INH Q6H PRN PRN Reason: Shortness Of Breath Or Wheezing Stop: 01/03/25 18:06 Albuterol (Albut/Ipratrop 3mg/0.5mg Neb 3 Ml Vial) 3 ml NEB Q6R PRN; Protocol PRN Reason: Shortness Of Breath Or Wheezing Stop: 01/03/25 18:06 Last Admin: 12/05/24 07:42 Dose: 3 ml Apixaban (Apixaban 5 Mg Tablet) 5 mg PO BID TEDDY Stop: 01/03/25 20:59 Last Admin: 12/05/24 09:07 Dose: 5 mg Artificial Tears (Artificial Tears) 1 drops OP HS TEDDY Stop: 01/03/25 20:59 Last Admin: 12/04/24 22:58 Dose: 1 drops Aspirin (Aspirin 81 Mg Ectab) 81 mg PO QAM TEDDY Stop: 01/04/25 08:59 Last Admin: 12/05/24 09:05 Dose: 81 mg Bumetanide (Bumetanide 1 Mg Tab) 2 mg PO QAM TEDDY Stop: 01/04/25 08:59 Last Admin: 12/05/24 09:04 Dose: 2 mg Bupropion HCl (Bupropion Hcl 100 Mg Tablet) 100 mg PO BID TEDDY Stop: 01/03/25 20:59 Last Admin: 12/05/24 09:07 Dose: 100 mg Calamine/Phenol (Menthol-Zinc Oxide 360 Appln/120 Gm Tube) 1 appln EXT QID PRN PRN Reason: SKIN IRRITATION Stop: 01/03/25 18:06 Carvedilol (Carvedilol 3.125 Mg Tab) 3.125 mg PO BIDM [facility] Stop: 01/03/25 18:06 Last Admin: 12/05/24 09:07 Dose: 3.125 mg Cetirizine HCl (Cetirizine Hcl 10 Mg Tablet) 10 mg PO QAM [facility] Stop: 01/04/25 08:59 Last Admin: 12/05/24 09:07 Dose: 10 mg Docusate Sodium (Docusate Sodium 100 Mg Cap) 100 mg PO BID [facility] Stop: 01/03/25 20:59 Last Admin: 12/05/24 09:03 Dose: 100 mg Doxycycline Hyclate (Doxycycline Hyclate 100 Mg Cap) 100 mg PO BID [facility] Stop: 12/09/24 20:59 Last Admin: 12/05/24 09:04 Dose: 100 mg Finasteride (Finasteride 5 Mg Tab) 5 mg PO QAM [facility] Stop: 01/04/25 08:59 Last Admin: 12/05/24 09:03 Dose: 5 mg Guaifenesin (Guaifenesin 600 Mg Tabcr) 1,200 mg PO Q12 [facility] Stop: 01/03/25 15:59 Last Admin: 12/04/24 16:42 Dose: 1,200 mg Guaifenesin/Dextromethorphan (Guaifenesin/Dextrom Syrup 200mg/20mg 10ml Udc) 10 ml PO Q6H PRN PRN Reason: Cough Stop: 01/04/25 04:51 Last Admin: 12/05/24 09:03 Dose: 10 ml Methylprednisolone 40 mg/ (Syringe) 0.64 mls @ 1.5 mls/min IV BID [facility] Stop: 12/11/24 08:59 Last Admin: 12/05/24 09:09 Dose: 1.5 mls/min Metoclopramide HCl (Metoclopramide Hcl 5 Mg Tablet) 5 mg PO BID [facility] Stop: 01/03/25 20:59 Last Admin: 12/05/24 09:08 Dose: 5 mg Miscellaneous (Pramipexole 0.375 Mg Tablet Extended Release 24 Hr Order Awaiting Action) 1 each N/A QS [facility] Stop: 01/04/25 00:00 Last Admin: 12/05/24 09:08 Dose: Not Given Multivitamins (Multivitamin Tab) 1 tab PO DAILY TEDDY Stop: 01/04/25 08:59 Last Admin: 12/05/24 09:04 Dose: 1 tab Multivitamins/Minerals (Cerovite Adv Formula Tab) 1 tab PO BID TEDDY Stop: 01/03/25 20:59 Last Admin: 12/05/24 09:05 Dose: 1 tab Nitroglycerin (Nitroglycerin Sl 0.4 Mg/Tab Tab) 0.4 mg SL Q5M PRN PRN Reason: Chest Pain Stop: 01/03/25 18:06 Ondansetron HCl (Ondansetron Inj 2 Mg/Ml 2 Ml Vial) 4 mg IV Q4H PRN PRN Reason: Nausea And Vomiting Stop: 01/03/25 16:07 Oxybutynin Chloride (Oxybutynin Chloride 5 Mg Tab) 5 mg PO Q8H PRN PRN Reason: bladder spasms Stop: 01/03/25 18:06 Oxycodone HCl (Oxycodone Hcl 10 Mg Tabcr (Oxycontin)) 10 mg PO BID TEDDY Stop: 12/18/24 20:59 Last Admin: 12/05/24 09:03 Dose: 10 mg Pantoprazole Sodium (Pantoprazole 40 Mg Tab) 40 mg PO BID TEDDY Stop: 01/03/25 20:59 Last Admin: 12/05/24 09:04 Dose: 40 mg Phenazopyridine HCl (Phenazopyridine Hcl 200 Mg Tab) 200 mg PO Q8H PRN PRN Reason: pain Stop: 01/03/25 18:06 Polyethylene Glycol (Polyethylene (Miralax) 17 Gm Pack) 17 gm PO BID TEDDY Stop: 01/03/25 20:59 Last Admin: 12/05/24 09:03 Dose: 17 gm Potassium Chloride (Potassium Chloride Crtab 20 Meq Tabcr) 20 meq PO BID TEDDY Stop: 01/03/25 20:59 Last Admin: 12/05/24 09:02 Dose: 20 meq Rosuvastatin Calcium (Rosuvastatin Calcium 20 Mg Tab) 20 mg PO DAILY TEDDY Stop: 01/04/25 08:59 Last Admin: 12/05/24 09:08 Dose: 20 mg Sennosides (Senna 8.6 Mg Tab) 8.6 mg PO BID TEDDY Stop: 01/03/25 20:59 Last Admin: 12/05/24 09:03 Dose: 8.6 mg Simethicone (Simethicone 80 Mg Chew) 80 mg PO Q6H PRN PRN Reason: gas Stop: 01/03/25 18:06 Sodium Chloride (Sodium Chlor 7% 4 Ml Neb) 4 ml NEB BIDR TEDDY Stop: 01/03/25 15:59 Last Admin: 12/05/24 07:42 Dose: 4 ml Spironolactone (Spironolactone 25 Mg Tab) 25 mg PO DAILY TEDDY Stop: 01/04/25 08:59 Last Admin: 12/05/24 09:04 Dose: 25 mg Tamsulosin HCl (Tamsulosin Hcl 0.4 Mg Cap) 0.4 mg PO HS TEDDY Stop: 01/03/25 20:59 Last Admin: 12/04/24 21:15 Dose: 0.4 mg PG Care Time/CCT Total # of Minutes Spent Total Time Spent with Patient: Total time spent is greater than 50% in coordination of care (as documented) at patient's floor/unit and/or counseling patient: Coding Level of Care Code 93276 SUB INP/OBS CARE 2/35MIN Diagnoses Acute respiratory failure J96.00 Acute pneumonia J18.9 Time Spent (min) 35
[2024-12-05] MEDS: ONDANSETRON INJ 2 MG/ML 2 ML VIAL IV PRN (10:08)
[2024-12-05] MEDS: PRAMIPEXOLE PO SCH (11:40)
--- NOTE | 2024-12-05 12:21 | Electrocardiogram Report ---
Test Reason : Blood Pressure : */* mmHG Vent. Rate : 89 BPM Atrial Rate : 89 BPM P-R Int : 128 ms QRS Dur : 148 ms QT Int : 438 ms P-R-T Axes : * 156 -65 degrees QTcB Int : 532 ms AV dual-paced rhythm Abnormal ECG When compared with ECG of 09-Oct-2024 03:27, Vent. rate has decreased by 9 bpm Confirmed by Eleazar Mcgowan ([id number]) on 12/05/2024 12:21:15 PM Referred By: REFERRED SELF Confirmed By: Eleazar Mcgowan
--- NOTE | 2024-12-05 13:37 | Electrocardiogram Report ---
Test Reason : Blood Pressure : */* mmHG Vent. Rate : 88 BPM Atrial Rate : 88 BPM P-R Int : 128 ms QRS Dur : 148 ms QT Int : 454 ms P-R-T Axes : 66 132 68 degrees QTcB Int : 549 ms AV dual-paced rhythm Abnormal ECG When compared with ECG of 04-Dec-2024 12:57, (unconfirmed) No significant change was found Confirmed by Eleazar Mcgowan ([id number]) on 12/05/2024 1:36:58 PM Referred By: REFERRED SELF Confirmed By: Eleazar Mcgowan
[2024-12-05] MEDS: LACTULOSE SYRUP 20 GM/30 ML UDC PO STA (14:09)
[2024-12-05] MEDS: LACTULOSE 200GM/700ML WTR ENEMA PR SCH (17:16)
[2024-12-06] MEDS ORDERED: PRAMIPEXOLE PO SCH (09:00)
[2024-12-06] MEDS ORDERED: AZITHROMYCIN 250 MG TAB PO SCH (09:00)
[2024-12-06 09:26] LABS: Hematocrit (blood only) 38.9 % (42.0-52.0); Hemoglobin 12.7 g/dl (14.0-18.0); Mean Corpuscular Hemoglobin 27.7 pg (25.0-34.0); Mean Corpuscular Volume 84.9 fL (80.0-100.0); Platelet Count 340 K/uL (130-400); RDW Standard Deviation 46.1 fL (36.4-46.3); Red Blood Count 4.58 M/uL (4.70-6.10); White Blood Count 12.33 K/ul (4.8-10.8)
[2024-12-06 09:43] LABS: Alanine Aminotransferase 17.0 U/L (7-52); Albumin Globulin Ratio 1.0 (0.9-2); Alkaline Phosphatase 62.0 U/L (34-104); Anion Gap 11.0 (3-11); Bilirubin,Total 0.4 mg/dl (0.2-1.0); Blood Urea Nitrogen 32.0 mg/dl (6-23); Calcium 9.3 mg/dl (8.6-10.3); Carbon Dioxide 23.0 mmol/L (21-32); Chloride 99.0 mmol/L (98-107); Creatinine Clr Calc Pharmacy 77.1 ml/min; Globulin 3.7 gm/dl (2.5-4.0); Glucose 206.0 mg/dl (70-99(Fasting)); Potassium 4.2 mmol/L (3.5-5.1); Sodium 133.0 mmol/L (136-145); Total Protein 7.4 gm/dl (6.0-8.3)
--- NOTE | 2024-12-06 15:56 | Hospitalist Progress Note ---
Date of Service December 06, 2024 Assessment & Plan (1) Acute respiratory failure: (2) Acute pneumonia: Plan Royce Louise is a 79 yo male with PMH of CAD s/p ICD, A-fib, CHF, PCN allergy, COPD (room air baseline, quitted in 1992), hx of PE, PVD chronic wound, BPH with LUTS. hx of 2 prior MD with ICD placement his ICD battery has 3 months remained. has had multiple admission for CHF, PNA. on this admission. he presented on 12/04 with 5 days of drying cough, shortness of breath and noted to have acute respiratory failure on 6 liter and bronchitis and PNA he's has PCN allergy. plan for admission for IV doxycycycline and management for acute respiratory failure. he's need inpatient monitor for IV steroid, oxygen, PT evaluation 12/05, on oxygen; has congestion. 12/06, still on 3 liter oxygen; still has significant congestion; added flutter valve 1. acute respiratory failure, pneumonia 2. CHF, CAD s/p ICD, A-fib on eliquis 3. hx of COPD (room air baseline) 4. gastroparesis, GERD 5. BPH 6. chronic pain, severe hand arthritis 7. chronic wound overall plan still on 3 liter oxygen c/w doxycycline,. mucinex PT/OT evaluation, speech for microaspiration. wound care eval ongoing hypoxia on 4 liter. ongoing WBC elevation. 1. acute respiratory failure, pneumonia IV antibiotics, doxycycline, IV solumedrol avoid PCN given allergy (intractable vomiting for 12-20 hours) hypertonic saline, inhale mucomyst, mucinex 1200 BID flutter valve scribed provide for nebulizer speech eval for microaspiration 2. CHF, CAD s/p ICD and A-fib cardiology noted that ICD battery has 2-3 months of lifespan left bumex 2mg daily, aldactone 25mg coreg 3.125mg , eliquis BID 3. COPD, quitted smoking in 1992 room air at baseline multiple hospitalization he's on stiolto 2 puff inhale daily morning his pulmonary physician is located at [facility]. 4. neuropathy, ?? parkinson pramipexole 0.125mg tablet 5. gastroparesis, GERD, metoclopramide 5mg BID, protonix 40 BID 6. constipation c/w senna 8.6 BID and docusate 100g BID c/w miralax bID, Home med s/p lactulose suppository and responded well. 7. hypokalemia-c/w kcl 20mg BID 8. BPH-finsteride 5mg daily 7. mood disorder-wellbturin 100mg BID 8. 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 macular degeneration, dry eyee, c/w refresh lacri-lube, artificial tear 10. chronic wound, pressure ulcer of the left foot stage 3 was seen by wound on 12/01. avoid wearing brace till wound is heal no new foot wear. 11. hx of macular degeneration. 12. hx of PVD Admission and Anticipated Discharge Date Admission Date: December 04, 2024 Subjective he still on 3 liter oxygen, still has shortness of breath and congestion flutter valve provided to mucolytics WBC still elevated, still on IV doxycycline QTC elevated Review of Systems Review of Systems: Constitutional: No Weight Change, No Fever, No Chills, No Night Sweats, No Fatigue, No Malaise Cardiovascular: No Chest Pain, No SOB, No PND, No Dyspnea on Exertion, No Orthopnea, No Claudication, No Edema, No Palpitations Respiratory: + for congestion; + for shortness of breath. + for dry cough Gastrointestinal: No Nausea, No Vomiting, No Diarrhea, No Constipation, No Pain, No Heartburn, No Anorexia, No Dysphagia, No Hematochezia, No Melena Musculoskeletal: No Arthralgias, No Myalgias, No Joint Swelling, No Joint Stiffness, No Back Pain, No Neck Pain, No Injury History Neuro: No Weakness, No Numbness, No Paresthesias, No Loss of Consciousness, Psych: No Anxiety/Panic, No Depression, No Insomnia, No Personality Changes, No Delusions, No Rumination, No SI/HI/AH/VH, No Social Issues, No Memory Changes, No Violence/Abuse Hx., No Eating Concerns Physical Exam Physical Exam: VITALS: Reviewed. WEIGHT/BMI reviewed. GEN: Healthy appearing, well-developed, NAD. -Head: NC/AT; NECK: Supple, with no masses. CV: RRR, no m/r/g. LUNGS: + for wheeze and rales; on 3 liter oxygen; no accessory muscle usage ABD: Soft, NT/ND, NBS, no masses or organomegaly. : N/A MSK: No deformities, Normal gait. EXT: No clubbing, cyanosis, or edema. NEURO: AAOx3 Results & Data Results & Data Vital Signs (Past 12 Hours) Vital Signs Temp Pulse Pulse Resp BP Pulse Ox O2 Del Method 12/06/24 14:43 89 12/06/24 12:00 36.8 C 97 H 20 115/61 97 Nasal Cannula 12/06/24 08:00 89 12/06/24 08:00 Nasal Cannula 12/06/24 07:58 36.7 C 88 18 120/75 96 Nasal Cannula 12/06/24 06:00 O2 Del Method O2 Flow Rate 12/06/24 14:43 12/06/24 12:00 3 12/06/24 08:00 12/06/24 08:00 12/06/24 07:58 3 12/06/24 06:00 Room Air Laboratory Results Laboratory Results - last 72 hr 12/04/24 12/05/24 12/05/24 12:45 05:46 16:20 WBC 11.03 H 11.85 H RBC 4.86 4.49 L Hgb 13.8 L 12.3 L Hct 41.4 L 39.0 L MCV 85.2 86.9 MCH 28.4 27.4 MCHC 33.3 31.5 L RDW Std Deviation 47.9 H 48.6 H RDW Coeff of Jerry 15.3 H 15.3 H Plt Count 334 307 MPV 10.7 10.6 Immature Gran % (Auto) 0.7 Neut % (Auto) 67.1 Lymph % (Auto) 21.2 [place] % (Auto) 6.8 Eos % (Auto) 3.8 Baso % (Auto) 0.4 Neut # (Auto) 7.40 H Lymph # (Auto) 2.34 [place] # (Auto) 0.75 H Eos # (Auto) 0.42 Baso # (Auto) 0.04 Immature Gran # (Auto) 0.08 PT 12.0 INR 1.1 APTT 29 PTT Ratio 1.1 VBG pH 7.46 H VBG pCO2 44 VBG pO2 29 VBG HCO3 31 VBG O2 Saturation < 60.0 VBG Base Excess 6.6 Sodium 136 135 L Potassium 4.1 4.0 Chloride 100 100 Carbon Dioxide 27 25 Anion Gap 9 10 BUN 21 28 H Creatinine 0.94 0.95 Est Cr Clr Drug Dosing 78.8 77.9 eGFR 82.46 81.42 BUN/Creatinine Ratio 22.3 H 29.5 H Glucose 116 H 162 H POC Glucose 174 H Lactate 1.8 Calcium 9.3 9.2 Magnesium 2.2 Total Bilirubin 0.6 0.4 AST 16 13 ALT 15 12 Alkaline Phosphatase 64 57 Troponin I High Sens 15.6 Total Protein 8.1 7.2 Albumin 4.1 3.7 Globulin 4.0 3.5 Albumin/Globulin Ratio 1.0 1.1 Procalcitonin 0.03 Nasal Screen MRSA (PCR) Negative Adenovirus (PCR) Not Detected B. pertussis DNA (PCR) Not Detected B.parapertussis DNA PCR Not Detected C. pneumoniae DNA (PCR) Not Detected Coronavirus OC43 (PCR) Not Detected Coronavirus HKU1 (PCR) Not Detected Coronavirus 229E (PCR) Not Detected SARS-CoV-2 (PCR) Not Detected Coronavirus NL63 (PCR) Not Detected Human Metapneumovir PCR Not Detected Influenza Type A (PCR) Not Detected Influenza Type B (PCR) Not Detected M. pneumoniae (PCR) Not Detected Parainfluenza 1 (PCR) Not Detected Parainfluenza 2 (PCR) Not Detected Parainfluenza 3 (PCR) Not Detected Parainfluenza 4 (PCR) Not Detected RSV (PCR) Not Detected Entero/Rhino (PCR) Not Detected 12/06/24 09:11 WBC 12.33 H RBC 4.58 L Hgb 12.7 L Hct 38.9 L MCV 84.9 MCH 27.7 MCHC 32.6 RDW Std Deviation 46.1 RDW Coeff of Jerry 15.0 H Plt Count 340 MPV 10.3 Immature Gran % (Auto) Neut % (Auto) Lymph % (Auto) [place] % (Auto) Eos % (Auto) Baso % (Auto) Neut # (Auto) Lymph # (Auto) [place] # (Auto) Eos # (Auto) Baso # (Auto) Immature Gran # (Auto) PT INR APTT PTT Ratio VBG pH VBG pCO2 VBG pO2 VBG HCO3 VBG O2 Saturation VBG Base Excess Sodium 133 L Potassium 4.2 Chloride 99 Carbon Dioxide 23 Anion Gap 11 BUN 32 H Creatinine 0.96 Est Cr Clr Drug Dosing 77.1 eGFR 80.40 BUN/Creatinine Ratio 33.3 H Glucose 206 H POC Glucose Lactate Calcium 9.3 Magnesium Total Bilirubin 0.4 AST 19 ALT 17 Alkaline Phosphatase 62 Troponin I High Sens Total Protein 7.4 Albumin 3.7 Globulin 3.7 Albumin/Globulin Ratio 1.0 Procalcitonin Nasal Screen MRSA (PCR) Adenovirus (PCR) B. pertussis DNA (PCR) B.parapertussis DNA PCR C. pneumoniae DNA (PCR) Coronavirus OC43 (PCR) Coronavirus HKU1 (PCR) Coronavirus 229E (PCR) SARS-CoV-2 (PCR) Coronavirus NL63 (PCR) Human Metapneumovir PCR Influenza Type A (PCR) Influenza Type B (PCR) M. pneumoniae (PCR) Parainfluenza 1 (PCR) Parainfluenza 2 (PCR) Parainfluenza 3 (PCR) Parainfluenza 4 (PCR) RSV (PCR) Entero/Rhino (PCR) Medications Administered Current Inpatient Medications Acetaminophen (Acetaminophen 325 Mg Tab) 650 mg PO Q6H PRN PRN Reason: Pain/Fever Stop: 01/03/25 18:06 Acetylcysteine (Acetylcysteine 20% Inhal Soln 4ml Dispensed By Resp.) 5 ml INH Q12R TEDDY Stop: 01/03/25 18:59 Last Admin: 12/06/24 07:48 Dose: Not Given Albuterol (Albuterol Hfa 8 Gm Inhaler) 2 puffs INH Q6H PRN PRN Reason: Shortness Of Breath Or Wheezing Stop: 01/03/25 18:06 Albuterol (Albut/Ipratrop 3mg/0.5mg Neb 3 Ml Vial) 3 ml NEB Q6R PRN; Protocol PRN Reason: Shortness Of Breath Or Wheezing Stop: 01/03/25 18:06 Last Admin: 12/05/24 19:18 Dose: 3 ml Apixaban (Apixaban 5 Mg Tablet) 5 mg PO BID TEDDY Stop: 01/03/25 20:59 Last Admin: 12/06/24 08:09 Dose: 5 mg Artificial Tears (Artificial Tears) 1 drops OP HS TEDDY Stop: 01/03/25 20:59 Last Admin: 12/05/24 21:06 Dose: 1 drops Aspirin (Aspirin 81 Mg Ectab) 81 mg PO QAM TEDDY Stop: 01/04/25 08:59 Last Admin: 12/06/24 08:08 Dose: 81 mg Bumetanide (Bumetanide 1 Mg Tab) 2 mg PO QAM [facility] Stop: 01/04/25 08:59 Last Admin: 12/06/24 08:09 Dose: 2 mg Bupropion HCl (Bupropion Hcl 100 Mg Tablet) 100 mg PO BID [facility] Stop: 01/03/25 20:59 Last Admin: 12/06/24 08:10 Dose: 100 mg Calamine/Phenol (Menthol-Zinc Oxide 360 Appln/120 Gm Tube) 1 appln EXT QID PRN PRN Reason: SKIN IRRITATION Stop: 01/03/25 18:06 Carvedilol (Carvedilol 3.125 Mg Tab) 3.125 mg PO BIDM [facility] Stop: 01/03/25 18:06 Last Admin: 12/06/24 08:09 Dose: 3.125 mg Cetirizine HCl (Cetirizine Hcl 10 Mg Tablet) [facility] [place] Stop: 01/04/25 08:59 Last Admin: 12/06/24 08:08 Dose: 10 mg Docusate Sodium (Docusate Sodium 100 Mg Cap) 100 mg PO BID [facility] Stop: 01/03/25 20:59 Last Admin: 12/06/24 08:22 Dose: 100 mg Doxycycline Hyclate (Doxycycline Hyclate 100 Mg Cap) 100 mg PO BID [facility] Stop: 12/09/24 20:59 Last Admin: 12/06/24 08:10 Dose: 100 mg Finasteride (Finasteride 5 Mg Tab) [facility] [place] Stop: 01/04/25 08:59 Last Admin: 12/06/24 08:10 Dose: 5 mg Guaifenesin (Guaifenesin 600 Mg Tabcr) 1,200 mg PO Q12 [facility] Stop: 01/03/25 15:59 Last Admin: 12/06/24 09:37 Dose: 1,200 mg Guaifenesin/Dextromethorphan (Guaifenesin/Dextrom Syrup 200mg/20mg 10ml Udc) 10 ml PO Q6H PRN PRN Reason: Cough Stop: 01/04/25 04:51 Last Admin: 12/06/24 08:10 Dose: 10 ml Methylprednisolone 40 mg/ (Syringe) 0.64 mls @ 1.5 mls/min IV BID TEDDY Stop: 12/11/24 08:59 Last Admin: 12/06/24 08:21 Dose: 1.5 mls/min Metoclopramide HCl (Metoclopramide Hcl 5 Mg Tablet) 5 mg PO BID TEDDY Stop: 01/03/25 20:59 Last Admin: 12/06/24 08:09 Dose: 5 mg Multivitamins (Multivitamin Tab) 1 tab PO DAILY TEDDY Stop: 01/04/25 08:59 Last Admin: 12/06/24 08:09 Dose: 1 tab Multivitamins/Minerals (Cerovite Adv Formula Tab) 1 tab PO BID TEDDY Stop: 01/03/25 20:59 Last Admin: 12/06/24 08:08 Dose: 1 tab Nitroglycerin (Nitroglycerin Sl 0.4 Mg/Tab Tab) 0.4 mg SL Q5M PRN PRN Reason: Chest Pain Stop: 01/03/25 18:06 Er Pramipexole ~Non- Formulary Patient's Own Med 1 each PO DAILY TEDDY Stop: 01/04/25 11:14 Last Admin: 12/06/24 08:08 Dose: 1 tab Ondansetron HCl (Ondansetron Inj 2 Mg/Ml 2 Ml Vial) 4 mg IV Q4H PRN PRN Reason: Nausea And Vomiting Stop: 01/03/25 16:07 Last Admin: 12/05/24 14:47 Dose: 4 mg Oxybutynin Chloride (Oxybutynin Chloride 5 Mg Tab) 5 mg PO Q8H PRN PRN Reason: bladder spasms Stop: 01/03/25 18:06 Oxycodone HCl (Oxycodone Hcl 10 Mg Tabcr (Oxycontin)) 10 mg PO BID TEDDY Stop: 12/18/24 20:59 Last Admin: 12/06/24 08:21 Dose: 10 mg Pantoprazole Sodium (Pantoprazole 40 Mg Tab) 40 mg PO BID TEDDY Stop: 01/03/25 20:59 Last Admin: 12/06/24 08:08 Dose: 40 mg Phenazopyridine HCl (Phenazopyridine Hcl 200 Mg Tab) 200 mg PO Q8H PRN PRN Reason: pain Stop: 01/03/25 18:06 Polyethylene Glycol (Polyethylene (Miralax) 17 Gm Pack) 17 gm PO BID TEDDY Stop: 01/03/25 20:59 Last Admin: 12/06/24 08:21 Dose: 17 gm Potassium Chloride (Potassium Chloride Crtab 20 Meq Tabcr) 20 meq PO BID TEDDY Stop: 01/03/25 20:59 Last Admin: 12/06/24 08:21 Dose: 20 meq Rosuvastatin Calcium (Rosuvastatin Calcium 20 Mg Tab) 20 mg PO DAILY TEDDY Stop: 01/04/25 08:59 Last Admin: 12/06/24 08:09 Dose: 20 mg Sennosides (Senna 8.6 Mg Tab) 8.6 mg PO BID TEDDY Stop: 01/03/25 20:59 Last Admin: 12/06/24 08:21 Dose: 8.6 mg Simethicone (Simethicone 80 Mg Chew) 80 mg PO Q6H PRN PRN Reason: gas Stop: 01/03/25 18:06 Sodium Chloride (Sodium Chlor 7% 4 Ml Neb) 4 ml NEB BIDR TEDDY Stop: 01/03/25 15:59 Last Admin: 12/06/24 07:48 Dose: Not Given Spironolactone (Spironolactone 25 Mg Tab) 25 mg PO DAILY TEDDY Stop: 01/04/25 08:59 Last Admin: 12/06/24 08:10 Dose: 25 mg Tamsulosin HCl (Tamsulosin Hcl 0.4 Mg Cap) 0.4 mg PO HS TEDDY Stop: 01/03/25 20:59 Last Admin: 12/05/24 21:05 Dose: 0.4 mg PG Care Time/CCT Total # of Minutes Spent Total Time Spent with Patient: Total time spent is greater than 50% in coordination of care (as documented) at patient's floor/unit and/or counseling patient: Coding Level of Care Code 61796 SUB INP/OBS CARE 1/25MIN Diagnoses Acute respiratory failure J96.00 Acute pneumonia J18.9 Time Spent (min) 25
[2024-12-06] MEDS ORDERED: VANCOMYCIN CONSULT ACTIVE PRN (15:57)
[2024-12-06] MEDS ORDERED: VANCOMYCIN HCL 1,000 MG/270 ML BAG IV ONE (15:57)
[2024-12-06] MEDS: VANCOMYCIN HCL 2,500 MG in SODIUM CHLORIDE 0.9% 500 ML IV ONE (17:02)
[2024-12-06] MEDS ORDERED: ROSUVASTATIN CALCIUM 20 MG TAB PO SCH (17:30)
--- NOTE | 2024-12-06 17:44 | Communication Note ---
Date of Service: December 06, 2024 around 5:15pm code stroke was called. blurry vision, dizziness on visual field exam, unable to identify number of care AAox3; no pronator drift; able to lift his feet against gravity for 4-5 seconds he has underlying neuropathy affecting full neuro exam tele-neuro at [facility] notified noted he's on eliquis plan for CTA head and neck, CT head, CTA chest ammonia, lactate, troponin order
[2024-12-06] MEDS: OPTIRAY 320 125ml IV ONE (18:17)
--- NOTE | 2024-12-06 18:29 | CT Scan Report ---
Clinical History: Altered mental status Technique: Axial computed tomography images were obtained of the brain without intravenous contrast. Findings: There is diffuse cerebral atrophy, within expected limits for the patient's age. Areas of decreased attenuation are seen within the periventricular white matter, likely representing chronic small vessel ischemic disease. There is no definite sign of acute or old infarction. No intracranial hemorrhage is evident. No definite mass lesion is seen on this noncontrast examination. There is no midline shift or other form of herniation. No hydrocephalus is seen. No fracture is identified. The orbits and the visualized paranasal sinuses appear unremarkable. The mastoid air cells appear clear. Impression: 1. Cerebral atrophy and chronic small vessel ischemic disease 2. Otherwise unremarkable noncontrast CT of the brain Electronically signed by Jatin Robertson 12-06-2024 6:18 PM
--- NOTE | 2024-12-06 18:42 | CT Scan Report ---
Clinical history: Blurred vision Technique: Axial computed tomography images were obtained of the brain after the administration of intravenous contrast according to the CT angiogram protocol Findings: No definite stenosis or aneurysm is seen of the anterior, middle, or posterior cerebral artery circulations. The visualized vertebral arteries and the basilar artery appear unremarkable Impression: No definite stenosis or aneurysm of the intracranial arteries Electronically signed by Jatin Robertson 12-06-2024 6:40 PM
--- NOTE | 2024-12-06 18:45 | CT Scan Report ---
Clinical history: Blurred vision Technique: Axial computed tomography images were obtained of the neck after the administration of intravenous contrast according to the CT angiogram protocol Findings: No stenosis is seen of the common carotid arteries bilaterally. There is a mild stenosis of the proximal right internal carotid artery with approximately 30% diameter narrowing. There is mild plaque in the left carotid bulb, without stenosis. The remainder of the internal carotid arteries appear patent bilaterally. No stenosis of the external carotid arteries is seen There are severe stenoses at the origins of the vertebral arteries bilaterally. There is mild plaque in the distal vertebral arteries bilaterally, without significant stenosis. The visualized thoracic aorta appears unremarkable. There is an approximately 60% diameter stenosis of the proximal left subclavian artery There is multilevel degenerative disc disease and osteoarthritis of the cervical spine. There is emphysema involving the lung apices Impression: 1. Mild, approximately 30% stenosis of the proximal right ICA 2. Severe stenoses of the origins of the vertebral arteries bilaterally 3. Approximately 60% stenosis of the proximal left subclavian artery ACT 112: Positive. There are findings on this exam that require communication between the performing entity and the patient following Patient Test Result Information Act ([place] ACT 112) guidelines. Electronically signed by Jatin Robertson 12-06-2024 6:44 PM
--- NOTE | 2024-12-06 18:51 | CT Scan Report ---
Clinical history: Shortness of breath Technique: Axial computed tomography images were obtained of the chest after the administration of intravenous contrast according to the CT angiogram protocol Comparison is made to the prior CT dated 10/09/2024 Findings: There is no definite sign of pulmonary embolism. There is severe emphysema. There are bilateral lower lobe and lingular alveolar and groundglass opacities, concerning for a combination of atelectasis and pneumonia. There is no pneumothorax. There are small bilateral pleural effusions. There is a nodular filling defect within the trachea just above the thompson There is no mediastinal, hilar, or axillary adenopathy. The thoracic aorta appears unremarkable with no sign of aneurysm or dissection. There is no pericardial effusion. There is coronary atherosclerosis. There is a left chest wall pacemaker device There is a moderate sized hiatal hernia. There is a 1.6 cm low-attenuation lesion within the spleen. No fracture is seen. No focal osseous lesion is evident Impression: 1. No definite sign of pulmonary embolism 2. Small bilateral pleural effusions 3. Bilateral lower lobe and lingular opacities, which may be due to a combination of atelectasis and pneumonia 4. Emphysema 5. Hiatal hernia 6. Splenic lesion that may represent a benign cyst but is indeterminate in nature. A follow-up contrast-enhanced CT could be considered 7. Filling defect in the trachea just above the thompson that could be due to mucous plugging or other debris ACT 112: Positive. There are findings on this exam that require communication between the performing entity and the patient following Patient Test Result Information Act ([place] ACT 112) guidelines. Electronically signed by Jatin Robertson 12-06-2024 6:50 PM
[2024-12-06 19:20] LABS: Hematocrit (blood only) 40.7 % (42.0-52.0); Hemoglobin 13.1 g/dl (14.0-18.0); Mean Corpuscular Hemoglobin 27.5 pg (25.0-34.0); Mean Corpuscular Volume 85.3 fL (80.0-100.0); Platelet Count 323 K/uL (130-400); RDW Standard Deviation 45.7 fL (36.4-46.3); Red Blood Count 4.77 M/uL (4.70-6.10); White Blood Count 10.37 K/ul (4.8-10.8)
[2024-12-06] MEDS: SODIUM CHLORIDE 0.9% 250 ML IV ONE (19:34)
[2024-12-06] MEDS: DEXTROSE 5% 500 ML IV SCH (19:35)
[2024-12-06 20:01] LABS: Anion Gap 12.0 (3-11); Blood Urea Nitrogen 39.0 mg/dl (6-23); Calcium 8.7 mg/dl (8.6-10.3); Carbon Dioxide 21.0 mmol/L (21-32); Chloride 97.0 mmol/L (98-107); Creatinine Clr Calc Pharmacy 69.2 ml/min; Glucose 185.0 mg/dl (70-99(Fasting)); Potassium 4.3 mmol/L (3.5-5.1); Sodium 130.0 mmol/L (136-145)
[2024-12-06] MEDS: ASPIRIN 325 MG ECTAB PO ONE (20:52)
--- NOTE | 2024-12-06 21:28 | Pharmacy Report ---
Pharmacy PK ABX Note - Date of Service December 06, 2024 - Assessment and Plan Assessment 79 year old M receiving DOXYCYCLINE/VANCOMYCIN for treatment of CAP Pertinent microbiologic data includes: NEGATIVE MRSA swab, normal adama in sputum. Addition of vancomycin today for limited improvement. Patient with stroke alert this evening, episode of hypotension. Plan Vancomycin * Loading dose: 2500 mg IV x 1 * Maintenance dose: 1000 mg IV every 12 hours * Regimen is predicted to achieve target AUC/MOHAN of 400-600 mg/L.hr * Random level to be ordered if continued greater than 48 hours Pharmacy will continue to follow and will adjust dose/frequency as necessary. Thank you. Pharmacy has transitioned to AUC monitoring for vancomycin. AUC/MOHAN is the preferred PK/PD target and is associated with decreased risk of nephrotoxicity compared to traditional trough targets.
[2024-12-07] MEDS: VANCOMYCIN HCL 1,000 MG/270 ML BAG IV SCH (05:13)
[2024-12-07 07:12] LABS: Hematocrit (blood only) 35.3 % (42.0-52.0); Hemoglobin 11.6 g/dl (14.0-18.0); Mean Corpuscular Hemoglobin 27.8 pg (25.0-34.0); Mean Corpuscular Volume 84.4 fL (80.0-100.0); Platelet Count 320 K/uL (130-400); RDW Standard Deviation 45.6 fL (36.4-46.3); Red Blood Count 4.18 M/uL (4.70-6.10); White Blood Count 12.39 K/ul (4.8-10.8)
[2024-12-07 07:38] LABS: Alanine Aminotransferase 14.0 U/L (7-52); Albumin Globulin Ratio 1.1 (0.9-2); Alkaline Phosphatase 50.0 U/L (34-104); Anion Gap 8.0 (3-11); Bilirubin,Total 0.3 mg/dl (0.2-1.0); Blood Urea Nitrogen 31.0 mg/dl (6-23); Calcium 8.6 mg/dl (8.6-10.3); Carbon Dioxide 24.0 mmol/L (21-32); Chloride 101.0 mmol/L (98-107); Creatinine Clr Calc Pharmacy 89.2 ml/min; Globulin 2.9 gm/dl (2.5-4.0); Glucose 135.0 mg/dl (70-99(Fasting)); Potassium 4.5 mmol/L (3.5-5.1); Sodium 133.0 mmol/L (136-145); Total Protein 6.2 gm/dl (6.0-8.3)
--- NOTE | 2024-12-07 15:05 | Magnetic Resonance Report ---
MRI OF THE BRAIN WITHOUT IV CONTRAST CLINICAL HISTORY: Blurry vision, dizziness, dehydration. COMPARISON STUDY: MRI dated 06/16/2024, CT scan dated 12/06/2024 TECHNIQUE: MRI of the brain was performed utilizing various T1 and T2-weighted sequences in the axial , sagittal, and coronal planes. IV contrast was not administered for this examination. FINDINGS: No intra or extra-axial mass lesions are visualized. Axial diffusion-weighted images reveal no evidence of acute or subacute infarction. There are mild atrophic changes present. Gradient echo images reveal no hemorrhagic foci. FLAIR images reveal foci of increased signal within the periventricular white matter, likely on a sma ll vessel basis. The findings remain similar to the preceding study. There is been resolution of the previously described left maxillary sinus mucosal thickening and flui d. IMPRESSION: 1. No acute intracranial findings ACT 112: Negative or not required by law. Electronically signed by: Darell Nichols M.D. 12/07/2024 3:04 PM
--- NOTE | 2024-12-07 18:44 | Hospitalist Progress Note ---
Date of Service December 07, 2024 Assessment & Plan (1) Acute bronchitis: Plan Royce Louise is a 79 yo male with PMH of CAD s/p ICD, A-fib, CHF, PCN allergy, COPD (room air baseline, quitted in 1992), hx of PE, PVD chronic wound, BPH with LUTS. hx of 2 prior PA with ICD placement his ICD battery has 3 months remained. has had multiple admission for CHF, PNA. on this admission. he presented on 12/04 with 5 days of drying cough, shortness of breath and noted to have acute respiratory failure on 6 liter and bronchitis and PNA he's has PCN allergy. plan for admission for IV doxycycycline and management for acute respiratory failure. he's need inpatient monitor for IV steroid, oxygen, PT evaluation 12/05, on oxygen; has congestion. 12/06, still on 3 liter oxygen; still has significant congestion; added flutter valve 1. acute respiratory failure, pneumonia 2. CHF, CAD s/p ICD, A-fib on eliquis 3. hx of COPD (room air baseline) 4. gastroparesis, GERD 5. BPH 6. chronic pain, severe hand arthritis 7. chronic wound overall plan brain MRI negative for stroke however, CTA found vertebral artery stenosis Dr. Spencer requested patient to be seen by neuro-interventional specialist still on 2-3 liter oxygen, still has WBC elevation of 12 updated at bedside he's s/p IV fluid yesterday for permissive HTN. monitor for sign of volume overload 1. acute respiratory failure, pneumonia IV antibiotics, doxycycline, IV solumedrol his WBC still elevated avoid PCN given allergy (intractable vomiting for 12-20 hours) hypertonic saline, inhale mucomyst, mucinex 1200 BID flutter valve script provide for nebulizer 2. CHF, CAD s/p ICD and A-fib cardiology noted that ICD battery has 2-3 months of lifespan left bumex 2mg daily, aldactone 25mg coreg 3.125mg , eliquis BID 3. blurry vision brain MRI negative on re-evaluate today; still unable to identify number of finger suspect issues from macular degeneration 4. vertebral artery stenosis spoke with vascular surgery; dr. Spencer requested evaluation by neuro-interventional 5. COPD, quitted smoking in 1992 room air at baseline multiple hospitalization he's on stiolto 2 puff inhale daily morning his pulmonary physician is located at [facility]. 6. neuropathy, ?? parkinson pramipexole 0.125mg tablet 5. gastroparesis, GERD, metoclopramide 5mg BID, protonix 40 BID 6. constipation c/w senna 8.6 BID and docusate 100g BID c/w miralax bID, Home med s/p lactulose suppository and responded well. 7. hypokalemia-c/w kcl 20mg BID 8. BPH-finsteride 5mg daily 7. mood disorder-wellbturin 100mg BID 8. 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 macular degeneration, dry eyee, c/w refresh lacri-lube, artificial tear 10. chronic wound, pressure ulcer of the left foot stage 3 was seen by wound on 12/01. avoid wearing brace till wound is heal no new foot wear. 11. hx of macular degeneration. 12. hx of PVD Admission and Anticipated Discharge Date Admission Date: December 04, 2024 Subjective his brain MRI negative for stroke spoke with Dr. Mera vascular surgery, requested neurointerventional to evaluate him for vertebral artery stenosis PT /OT eval c/w doxycycline dc barrier still in significant copd exacerbation still on oxygen. Review of Systems Review of Systems: Constitutional: No Weight Change, No Fever, No Chills, No Night Sweats, No Fatigue, No Malaise Cardiovascular: No Chest Pain, No SOB, No PND, No Dyspnea on Exertion, No Orthopnea, No Claudication, No Edema, No Palpitations Respiratory: + for shortness of breath; congestion Gastrointestinal: No Nausea, No Vomiting, No Diarrhea, No Constipation, No Pain, No Heartburn, No Anorexia, No Dysphagia, No Hematochezia, No Melena, No Flatulence, No Jaundice Skin: No Skin Lesions, No Pruritis, No Hair Changes, No Breast/Skin Changes, No Nipple Discharge Neuro: No Weakness, No Numbness, No Paresthesias, No Loss of Consciousness, No Syncope, No Dizziness, No Headache, Heme/Lymph: No Bruising, No Bleeding, No Transfusions History, No Lymphadenopathy Endocrine: No Polyuria, No Polydipsia, No Temperature Intolerance Physical Exam Physical Exam: VITALS: Reviewed. WEIGHT/BMI reviewed. GEN: Healthy appearing, well-developed, NAD. PSYCH: Good Judgment. AOx3. Normal memory, mood, and affect. HEENT -Head: NC/AT; NECK: Supple, with no masses. CV: RRR, no m/r/g. LUNGS: CTAB, no w/r/c. congested breath sound; + for respiratory distress ABD: Soft, NT/ND, NBS, no masses or organomegaly. esions. NEURO: AAox3; no facial droop; + chronic tremor; 5/5 strength; following commad Results & Data Results & Data Vital Signs (Past 12 Hours) Vital Signs Temp Pulse Pulse Pulse Resp BP Pulse Ox 12/07/24 17:47 89 12/07/24 15:21 36.6 C 90 20 129/78 96 12/07/24 11:00 36.7 C 89 18 135/58 L 98 12/07/24 10:58 12/07/24 10:50 90 12/07/24 08:00 36.5 C 70 20 101/60 97 12/07/24 07:21 91 H 20 92 O2 Del Method O2 Flow Rate 12/07/24 17:47 12/07/24 15:21 Nasal Cannula 3 12/07/24 11:00 Nasal Cannula 3 12/07/24 10:58 Nasal Cannula 4 12/07/24 10:50 12/07/24 08:00 Nasal Cannula 3 12/07/24 07:21 Nasal Cannula 2 Laboratory Results Laboratory Results - last 72 hr 12/05/24 12/05/24 12/06/24 05:46 16:20 09:11 WBC 11.85 H 12.33 H RBC 4.49 L 4.58 L Hgb 12.3 L 12.7 L Hct 39.0 L 38.9 L MCV 86.9 84.9 MCH 27.4 27.7 MCHC 31.5 L 32.6 RDW Std Deviation 48.6 H 46.1 RDW Coeff of Jerry 15.3 H 15.0 H Plt Count 307 340 MPV 10.6 10.3 Sodium 135 L 133 L Potassium 4.0 4.2 Chloride 100 99 Carbon Dioxide 25 23 Anion Gap 10 11 BUN 28 H 32 H Creatinine 0.95 0.96 Est Cr Clr Drug Dosing 77.9 77.1 eGFR 81.42 80.40 BUN/Creatinine Ratio 29.5 H 33.3 H Glucose 162 H 206 H POC Glucose 174 H Lactate Calcium 9.2 9.3 Magnesium 2.2 Total Bilirubin 0.4 0.4 AST 13 19 ALT 12 17 Alkaline Phosphatase 57 62 Troponin I High Sens Total Protein 7.2 7.4 Albumin 3.7 3.7 Globulin 3.5 3.7 Albumin/Globulin Ratio 1.1 1.0 12/06/24 12/06/24 12/06/24 17:09 18:52 21:14 WBC 10.37 RBC 4.77 Hgb 13.1 L Hct 40.7 L MCV 85.3 MCH 27.5 MCHC 32.2 RDW Std Deviation 45.7 RDW Coeff of Jerry 14.8 H Plt Count 323 MPV 10.2 Sodium 130 L Potassium 4.3 Chloride 97 L Carbon Dioxide 21 Anion Gap 12 H BUN 39 H Creatinine 1.07 Est Cr Clr Drug Dosing 69.2 eGFR 70.59 BUN/Creatinine Ratio 36.4 H Glucose 185 H POC Glucose 248 H Lactate 3.0 H* 2.9 H* Calcium 8.7 Magnesium Total Bilirubin AST ALT Alkaline Phosphatase Troponin I High Sens 10.1 Total Protein Albumin Globulin Albumin/Globulin Ratio 12/07/24 05:43 WBC 12.39 H RBC 4.18 L Hgb 11.6 L Hct 35.3 L MCV 84.4 MCH 27.8 MCHC 32.9 RDW Std Deviation 45.6 RDW Coeff of Jerry 14.9 H Plt Count 320 MPV 10.6 Sodium 133 L Potassium 4.5 Chloride 101 Carbon Dioxide 24 Anion Gap 8 BUN 31 H Creatinine 0.83 Est Cr Clr Drug Dosing 89.2 eGFR 89.03 BUN/Creatinine Ratio 37.3 H Glucose 135 H POC Glucose Lactate Calcium 8.6 Magnesium Total Bilirubin 0.3 AST 14 ALT 14 Alkaline Phosphatase 50 Troponin I High Sens Total Protein 6.2 Albumin 3.3 L Globulin 2.9 Albumin/Globulin Ratio 1.1 Medications Administered Current Inpatient Medications Acetaminophen (Acetaminophen 325 Mg Tab) 650 mg PO Q6H PRN PRN Reason: Pain/Fever Stop: 01/03/25 18:06 Acetylcysteine (Acetylcysteine 20% Inhal Soln 4ml Dispensed By Resp.) 5 ml INH Q12R TEDDY Stop: 01/03/25 18:59 Last Admin: 12/07/24 07:20 Dose: 5 ml Albuterol (Albuterol Hfa 8 Gm Inhaler) 2 puffs INH Q6H PRN PRN Reason: Shortness Of Breath Or Wheezing Stop: 01/03/25 18:06 Albuterol (Albut/Ipratrop 3mg/0.5mg Neb 3 Ml Vial) 3 ml NEB Q6R PRN; Protocol PRN Reason: Shortness Of Breath Or Wheezing Stop: 01/03/25 18:06 Last Admin: 12/07/24 07:19 Dose: 3 ml Apixaban (Apixaban 5 Mg Tablet) 5 mg PO BID [facility] Stop: 01/03/25 20:59 Last Admin: 12/07/24 08:53 Dose: 5 mg Artificial Tears (Artificial Tears) 1 drops OP HS [facility] Stop: 01/03/25 20:59 Last Admin: 12/06/24 19:44 Dose: 1 drops Aspirin (Aspirin 81 Mg Ectab) 81 mg PO QAM [facility] Stop: 01/04/25 08:59 Last Admin: 12/07/24 08:53 Dose: 81 mg Bumetanide (Bumetanide 1 Mg Tab) 2 mg PO QAM [facility] Stop: 01/04/25 08:59 Last Admin: 12/07/24 08:49 Dose: 2 mg Bupropion HCl (Bupropion Hcl 100 Mg Tablet) 100 mg PO BID [facility] Stop: 01/03/25 20:59 Last Admin: 12/07/24 08:49 Dose: 100 mg Calamine/Phenol (Menthol-Zinc Oxide 360 Appln/120 Gm Tube) 1 appln EXT QID PRN PRN Reason: SKIN IRRITATION Stop: 01/03/25 18:06 Carvedilol (Carvedilol 3.125 Mg Tab) 3.125 mg PO BIDM [facility] Stop: 01/03/25 18:06 Last Admin: 12/07/24 18:33 Dose: 3.125 mg Cetirizine HCl (Cetirizine Hcl 10 Mg Tablet) 10 mg PO QAM [facility] Stop: 01/04/25 08:59 Last Admin: 12/07/24 08:51 Dose: 10 mg Docusate Sodium (Docusate Sodium 100 Mg Cap) 100 mg PO BID [facility] Stop: 01/03/25 20:59 Last Admin: 12/07/24 08:52 Dose: 100 mg Doxycycline Hyclate (Doxycycline Hyclate 100 Mg Cap) 100 mg PO BID [facility] Stop: 12/09/24 20:59 Last Admin: 12/07/24 08:51 Dose: 100 mg Finasteride (Finasteride 5 Mg Tab) 5 mg PO QAM TEDDY Stop: 01/04/25 08:59 Last Admin: 12/07/24 08:50 Dose: 5 mg Guaifenesin (Guaifenesin 600 Mg Tabcr) 1,200 mg PO Q12 TEDDY Stop: 01/03/25 15:59 Last Admin: 12/07/24 08:50 Dose: 1,200 mg Guaifenesin/Dextromethorphan (Guaifenesin/Dextrom Syrup 200mg/20mg 10ml Udc) 10 ml PO Q6H PRN PRN Reason: Cough Stop: 01/04/25 04:51 Last Admin: 12/06/24 08:10 Dose: 10 ml Methylprednisolone 40 mg/ (Syringe) 0.64 mls @ 1.5 mls/min IV BID TEDDY Stop: 12/11/24 08:59 Last Admin: 12/07/24 08:54 Dose: 1.5 mls/min Vancomycin HCl (Vancomycin Hcl) 1,000 mg in 270 mls @ 200 mls/hr IV Q12H TEDDY Stop: 12/12/24 05:59 Last Admin: 12/07/24 18:33 Dose: 200 mls/hr Metoclopramide HCl (Metoclopramide Hcl 5 Mg Tablet) 5 mg PO BID TEDDY Stop: 01/03/25 20:59 Last Admin: 12/07/24 08:53 Dose: 5 mg Miscellaneous Information (Vancomycin Consult Active) 1 each N/A UD PRN PRN Reason: Consult Stop: 01/05/25 15:56 Multivitamins (Multivitamin Tab) 1 tab PO DAILY TEDDY Stop: 01/04/25 08:59 Last Admin: 12/07/24 08:49 Dose: 1 tab Multivitamins/Minerals (Cerovite Adv Formula Tab) 1 tab PO BID TEDDY Stop: 01/03/25 20:59 Last Admin: 12/07/24 08:54 Dose: 1 tab Nitroglycerin (Nitroglycerin Sl 0.4 Mg/Tab Tab) 0.4 mg SL Q5M PRN PRN Reason: Chest Pain Stop: 01/03/25 18:06 Er Pramipexole ~Non- Formulary Patient's Own Med 1 each PO DAILY TEDDY Stop: 01/04/25 11:14 Last Admin: 12/07/24 08:54 Dose: 1 tab Ondansetron HCl (Ondansetron Inj 2 Mg/Ml 2 Ml Vial) 4 mg IV Q4H PRN PRN Reason: Nausea And Vomiting Stop: 01/03/25 16:07 Last Admin: 12/05/24 14:47 Dose: 4 mg Oxybutynin Chloride (Oxybutynin Chloride 5 Mg Tab) 5 mg PO Q8H PRN PRN Reason: bladder spasms Stop: 01/03/25 18:06 Oxycodone HCl (Oxycodone Hcl 10 Mg Tabcr (Oxycontin)) 10 mg PO BID TEDDY Stop: 12/18/24 20:59 Last Admin: 12/07/24 08:52 Dose: 10 mg Pantoprazole Sodium (Pantoprazole 40 Mg Tab) 40 mg PO BID TEDDY Stop: 01/03/25 20:59 Last Admin: 12/07/24 08:49 Dose: 40 mg Phenazopyridine HCl (Phenazopyridine Hcl 200 Mg Tab) 200 mg PO Q8H PRN PRN Reason: pain Stop: 01/03/25 18:06 Polyethylene Glycol (Polyethylene (Miralax) 17 Gm Pack) 17 gm PO BID TEDDY Stop: 01/03/25 20:59 Last Admin: 12/07/24 08:53 Dose: 17 gm Potassium Chloride (Potassium Chloride Crtab 20 Meq Tabcr) 20 meq PO BID TEDDY Stop: 01/03/25 20:59 Last Admin: 12/07/24 08:52 Dose: 20 meq Rosuvastatin Calcium (Rosuvastatin Calcium 20 Mg Tab) 20 mg PO DAILY TEDDY Stop: 01/04/25 08:59 Last Admin: 12/07/24 08:51 Dose: 20 mg Sennosides (Senna 8.6 Mg Tab) 8.6 mg PO BID TEDDY Stop: 01/03/25 20:59 Last Admin: 12/07/24 08:50 Dose: 8.6 mg Simethicone (Simethicone 80 Mg Chew) 80 mg PO Q6H PRN PRN Reason: gas Stop: 01/03/25 18:06 Sodium Chloride (Sodium Chlor 7% 4 Ml Neb) 4 ml NEB BIDR TEDDY Stop: 01/03/25 15:59 Last Admin: 12/07/24 07:19 Dose: 4 ml Spironolactone (Spironolactone 25 Mg Tab) 25 mg PO DAILY TEDDY Stop: 01/04/25 08:59 Last Admin: 12/07/24 08:54 Dose: 25 mg Tamsulosin HCl (Tamsulosin Hcl 0.4 Mg Cap) 0.4 mg PO HS TEDDY Stop: 01/03/25 20:59 Last Admin: 12/06/24 19:43 Dose: 0.4 mg PG Care Time/CCT Total # of Minutes Spent Total Time Spent with Patient: Total time spent is greater than 50% in coordination of care (as documented) at patient's floor/unit and/or counseling patient: Coding Level of Care Code 14048 SUB INP/OBS CARE 2/35MIN Diagnoses Acute bronchitis J20.9 Time Spent (min) 35
[2024-12-08] MEDS: VANCOMYCIN LEVEL ONE (05:17)
[2024-12-08 05:27] LABS: Hematocrit (blood only) 37.1 % (42.0-52.0); Hemoglobin 11.9 g/dl (14.0-18.0); Mean Corpuscular Hemoglobin 27.5 pg (25.0-34.0); Mean Corpuscular Volume 85.9 fL (80.0-100.0); Platelet Count 313 K/uL (130-400); RDW Standard Deviation 46.5 fL (36.4-46.3); Red Blood Count 4.32 M/uL (4.70-6.10); White Blood Count 11.69 K/ul (4.8-10.8)
[2024-12-08 05:43] LABS: Anion Gap 5.0 (3-11); Blood Urea Nitrogen 30.0 mg/dl (6-23); Calcium 8.9 mg/dl (8.6-10.3); Carbon Dioxide 28.0 mmol/L (21-32); Chloride 100.0 mmol/L (98-107); Creatinine Clr Calc Pharmacy 76.3 ml/min; Glucose 152.0 mg/dl (70-99(Fasting)); Potassium 4.6 mmol/L (3.5-5.1); Sodium 133.0 mmol/L (136-145)
--- NOTE | 2024-12-08 09:15 | Hospitalist Progress Note ---
Date of Service December 08, 2024 Assessment & Plan (1) Acute bronchitis: Plan Royce Louise is a 79 yo male with PMH of CAD s/p ICD, dysphagia A-fib, CHF, PCN allergy, COPD (room air baseline, quitted in 1992), hx of PE, PVD chronic wound, BPH with LUTS. hx of 2 prior HI with ICD placement his ICD battery has 3 months remained. has had multiple admission for CHF, PNA. on this admission. he presented on 12/04 with 5 days of drying cough, shortness of breath and noted to have acute respiratory failure on 6 liter and bronchitis and PNA he's has PCN allergy. plan for admission for IV doxycycycline and management for acute respiratory failure. he's need inpatient monitor for IV steroid, oxygen, PT evaluation 12/05, on oxygen; has congestion. 12/06, still on 3 liter oxygen; still has significant congestion; added flutter valve 1. acute respiratory failure, pneumonia 2. CHF, CAD s/p ICD, A-fib on eliquis 3. hx of COPD (room air baseline) 4. gastroparesis, GERD 5. BPH 6. chronic pain, severe hand arthritis 7. chronic wound overall plan brain MRI negative for stroke however, CTA found vertebral artery stenosis Dr. Spencer requested patient to be seen by neuro-interventional specialist still on 2-3 liter oxygen, still has WBC elevation of 12 updated at bedside he's s/p IV fluid yesterday for permissive HTN. monitor for sign of volume overload 1. acute respiratory failure, pneumonia dysphagia, speech recommended easy chew and thin liquid IV antibiotics, doxycycline, IV solumedrol added flagyl for anaerobic coverage avoid PCN given allergy (intractable vomiting for 12-20 hours) hypertonic saline, inhale mucomyst, mucinex 1200 BID flutter valve script provide for nebulizer 2. CHF, CAD s/p ICD and A-fib cardiology noted that ICD battery has 2-3 months of lifespan left bumex 2mg daily, aldactone 25mg coreg 3.125mg , eliquis BID 3. blurry vision brain MRI negative for stroke f/u with paper products inspector, noted hx of macular degeneration f/u with neuroinventional specialist 4. vertebral artery stenosis spoke with vascular surgery; dr. Spencer requested evaluation by neuro-interventional 5. COPD, quitted smoking in 1992 room air at baseline multiple hospitalization he's on stiolto 2 puff inhale daily morning his pulmonary physician is located at [facility]. 6. neuropathy, ?? parkinson pramipexole 0.125mg tablet 5. gastroparesis, GERD, metoclopramide 5mg BID, protonix 40 BID 6. constipation c/w senna 8.6 BID and docusate 100g BID c/w miralax bID, Home med s/p lactulose suppository and responded well. 7. hypokalemia-c/w kcl 20mg BID 8. BPH-finsteride 5mg daily 7. mood disorder-wellbturin 100mg BID 8. 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 macular degeneration, dry eyee, c/w refresh lacri-lube, artificial tear 10. chronic wound, pressure ulcer of the left foot stage 3 was seen by wound on 12/01. avoid wearing brace till wound is heal no new foot wear. 11. hx of macular degeneration. 12. hx of PVD Admission and Anticipated Discharge Date Admission Date: December 04, 2024 Subjective he breathing slightly improving speech evaluate him and need easy to chew and thin liquid. added flagyl for anaerobe coverage brain MRI negative; need f/u with neurointerventional to vertebral surgery updated potential discharge 24-48 hours away he need ophthalmology f/u Review of Systems Review of Systems: Constitutional: No Weight Change, No Fever, No Chills, No Night Sweats, No Fatigue, No Malaise Cardiovascular: No Chest Pain, No SOB, No PND, No Dyspnea on Exertion, No Orthopnea, No Claudication, No Edema, No Palpitations Respiratory: shortness of breath improving; no congestion + for aspiration Gastrointestinal: No Nausea, No Vomiting, No Diarrhea, No Constipation, No Pain, No Heartburn, Genitourinary: No Dysmenorrhea, No DUB, No Dyspareunia, No Dysuria, No Urinary Frequency, No Hematuria, No Urinary Incontinence, No Urgency, No Flank Pain, No Urinary Flow Changes, No Hesitancy Musculoskeletal: No Arthralgias, No Myalgias, No Joint Swelling, No Joint Stiffness, No Back Pain, No Neck Pain, No Injury History Neuro: No Weakness, No Numbness, No Paresthesias, chcf blurry vision Heme/Lymph: No Bruising, No Bleeding, No Transfusions History, No Lymphadenopathy Endocrine: No Polyuria, No Polydipsia, No Temperature Intolerance Physical Exam Physical Exam: VITALS: Reviewed. WEIGHT/BMI reviewed. GEN: non-toxic appearing; improving PSYCH: Good Judgment. AOx3. -Head: NC/AT; -Mouth and throat: MMM. Normal gums, muc miesha, palate,. Good dentition. NECK: Supple, with no masses. CV: RRR, no m/r/g. LUNGS: trace wheezing; on oxygen; no accessory muscle usage ABD: Soft, NT/ND, NBS, no masses or organomegaly. MSK: No deformities, Normal gait. EXT: No clubbing, cyanosis, or edema. NEURO: long standing tremor; AAOx3; following command Results & Data Results & Data Vital Signs (Past 12 Hours) Vital Signs Temp Pulse Resp BP Pulse Ox Pulse Ox O2 Del Method 12/08/24 08:13 36.5 C 90 17 131/86 98 Room Air 12/08/24 07:02 89 18 95 Nasal Cannula 12/08/24 02:48 36.2 C L 74 18 123/82 93 Nasal Cannula 12/08/24 00:00 91 12/07/24 22:45 36.4 C L 90 18 121/77 98 Nasal Cannula O2 Del Method O2 Flow Rate O2 Flow Rate 12/08/24 08:13 12/08/24 07:02 3 12/08/24 02:48 3 12/08/24 00:00 Nasal Cannula 3 12/07/24 22:45 3 Laboratory Results Laboratory Results - last 72 hr 12/05/24 12/05/24 12/06/24 05:46 16:20 09:11 WBC 12.33 H RBC 4.58 L Hgb 12.7 L Hct 38.9 L MCV 84.9 MCH 27.7 MCHC 32.6 RDW Std Deviation 46.1 RDW Coeff of Jerry 15.0 H Plt Count 340 MPV 10.3 Sodium 133 L Potassium 4.2 Chloride 99 Carbon Dioxide 23 Anion Gap 11 BUN 32 H Creatinine 0.96 Est Cr Clr Drug Dosing 77.1 eGFR 80.40 BUN/Creatinine Ratio 33.3 H Glucose 206 H POC Glucose 174 H Lactate Calcium 9.3 Magnesium 2.2 Total Bilirubin 0.4 AST 19 ALT 17 Alkaline Phosphatase 62 Troponin I High Sens Total Protein 7.4 Albumin 3.7 Globulin 3.7 Albumin/Globulin Ratio 1.0 Random Vancomycin 12/06/24 12/06/24 12/06/24 17:09 18:52 21:14 WBC 10.37 RBC 4.77 Hgb 13.1 L Hct 40.7 L MCV 85.3 MCH 27.5 MCHC 32.2 RDW Std Deviation 45.7 RDW Coeff of Jerry 14.8 H Plt Count 323 MPV 10.2 Sodium 130 L Potassium 4.3 Chloride 97 L Carbon Dioxide 21 Anion Gap 12 H BUN 39 H Creatinine 1.07 Est Cr Clr Drug Dosing 69.2 eGFR 70.59 BUN/Creatinine Ratio 36.4 H Glucose 185 H POC Glucose 248 H Lactate 3.0 H* 2.9 H* Calcium 8.7 Magnesium Total Bilirubin AST ALT Alkaline Phosphatase Troponin I High Sens 10.1 Total Protein Albumin Globulin Albumin/Globulin Ratio Random Vancomycin 12/07/24 12/08/24 05:43 05:11 WBC 12.39 H 11.69 H RBC 4.18 L 4.32 L Hgb 11.6 L 11.9 L Hct 35.3 L 37.1 L MCV 84.4 85.9 MCH 27.8 27.5 MCHC 32.9 32.1 RDW Std Deviation 45.6 46.5 H RDW Coeff of Jerry 14.9 H 14.9 H Plt Count 320 313 MPV 10.6 9.8 Sodium 133 L 133 L Potassium 4.5 4.6 Chloride 101 100 Carbon Dioxide 24 28 Anion Gap 8 5 BUN 31 H 30 H Creatinine 0.83 0.97 Est Cr Clr Drug Dosing 89.2 76.3 eGFR 89.03 79.41 BUN/Creatinine Ratio 37.3 H 30.9 H Glucose 135 H 152 H POC Glucose Lactate Calcium 8.6 8.9 Magnesium Total Bilirubin 0.3 AST 14 ALT 14 Alkaline Phosphatase 50 Troponin I High Sens Total Protein 6.2 Albumin 3.3 L Globulin 2.9 Albumin/Globulin Ratio 1.1 Random Vancomycin 16.7 Medications Administered Current Inpatient Medications Acetaminophen (Acetaminophen 325 Mg Tab) 650 mg PO Q6H PRN PRN Reason: Pain/Fever Stop: 01/03/25 18:06 Acetylcysteine (Acetylcysteine 20% Inhal Soln 4ml Dispensed By Resp.) 5 ml INH Q12R TEDDY Stop: 01/03/25 18:59 Last Admin: 12/08/24 07:02 Dose: 5 ml Albuterol (Albuterol Hfa 8 Gm Inhaler) 2 puffs INH Q6H PRN PRN Reason: Shortness Of Breath Or Wheezing Stop: 01/03/25 18:06 Albuterol (Albut/Ipratrop 3mg/0.5mg Neb 3 Ml Vial) 3 ml NEB Q6R PRN; Protocol PRN Reason: Shortness Of Breath Or Wheezing Stop: 01/03/25 18:06 Last Admin: 12/08/24 07:02 Dose: 3 ml Apixaban (Apixaban 5 Mg Tablet) 5 mg PO BID [facility] Stop: 01/03/25 20:59 Last Admin: 12/08/24 08:53 Dose: 5 mg Artificial Tears (Artificial Tears) 1 drops OP HS [facility] Stop: 01/03/25 20:59 Last Admin: 12/07/24 21:13 Dose: 1 drops Aspirin (Aspirin 81 Mg Ectab) 81 mg PO QAM [facility] Stop: 01/04/25 08:59 Last Admin: 12/08/24 08:53 Dose: 81 mg Bumetanide (Bumetanide 1 Mg Tab) 2 mg PO QAM [facility] Stop: 01/04/25 08:59 Last Admin: 12/08/24 08:51 Dose: 2 mg Bupropion HCl (Bupropion Hcl 100 Mg Tablet) 100 mg PO BID [facility] Stop: 01/03/25 20:59 Last Admin: 12/08/24 08:49 Dose: 100 mg Calamine/Phenol (Menthol-Zinc Oxide 360 Appln/120 Gm Tube) 1 appln EXT QID PRN PRN Reason: SKIN IRRITATION Stop: 01/03/25 18:06 Carvedilol (Carvedilol 3.125 Mg Tab) 3.125 mg PO BIDM [facility] Stop: 01/03/25 18:06 Last Admin: 12/08/24 08:49 Dose: 3.125 mg Cetirizine HCl (Cetirizine Hcl 10 Mg Tablet) 10 mg PO QAM [facility] Stop: 01/04/25 08:59 Last Admin: 12/08/24 08:50 Dose: 10 mg Docusate Sodium (Docusate Sodium 100 Mg Cap) 100 mg PO BID [facility] Stop: 01/03/25 20:59 Last Admin: 12/08/24 08:52 Dose: 100 mg Doxycycline Hyclate (Doxycycline Hyclate 100 Mg Cap) 100 mg PO BID [facility] Stop: 12/09/24 20:59 Last Admin: 12/08/24 08:50 Dose: 100 mg Finasteride (Finasteride 5 Mg Tab) 5 mg PO QAM TEDDY Stop: 01/04/25 08:59 Last Admin: 12/08/24 08:54 Dose: 5 mg Guaifenesin (Guaifenesin 600 Mg Tabcr) 1,200 mg PO Q12 TEDDY Stop: 01/03/25 15:59 Last Admin: 12/08/24 08:50 Dose: 1,200 mg Guaifenesin/Dextromethorphan (Guaifenesin/Dextrom Syrup 200mg/20mg 10ml Udc) 10 ml PO Q6H PRN PRN Reason: Cough Stop: 01/04/25 04:51 Last Admin: 12/06/24 08:10 Dose: 10 ml Methylprednisolone 40 mg/ (Syringe) 0.64 mls @ 1.5 mls/min IV BID TEDDY Stop: 12/11/24 08:59 Last Admin: 12/08/24 08:54 Dose: 1.5 mls/min Vancomycin HCl 1,750 mg/ (Sodium Chloride) 535 mls @ 200 mls/hr IV Q24H [facility] Stop: 12/12/24 05:00 Metoclopramide HCl (Metoclopramide Hcl 5 Mg Tablet) 5 mg PO BID TEDDY Stop: 01/03/25 20:59 Last Admin: 12/08/24 08:55 Dose: 5 mg Metronidazole (Metronidazole 500 Mg Tab) 500 mg PO BID [facility]; Protocol Stop: 12/13/24 08:59 Miscellaneous Information (Vancomycin Consult Active) 1 each N/A UD PRN PRN Reason: Consult Stop: 01/05/25 15:56 Multivitamins (Multivitamin Tab) 1 tab PO DAILY [facility] Stop: 01/04/25 08:59 Last Admin: 12/07/24 08:49 Dose: 1 tab Multivitamins/Minerals (Cerovite Adv Formula Tab) 1 tab PO BID [facility] Stop: 01/03/25 20:59 Last Admin: 12/08/24 08:53 Dose: 1 tab Nitroglycerin (Nitroglycerin Sl 0.4 Mg/Tab Tab) 0.4 mg SL Q5M PRN PRN Reason: Chest Pain Stop: 01/03/25 18:06 Er Pramipexole ~Non- Formulary Patient's Own Med 1 each PO DAILY TEDDY Stop: 01/04/25 11:14 Last Admin: 12/08/24 08:53 Dose: 1 tab Ondansetron HCl (Ondansetron Inj 2 Mg/Ml 2 Ml Vial) 4 mg IV Q4H PRN PRN Reason: Nausea And Vomiting Stop: 01/03/25 16:07 Last Admin: 12/05/24 14:47 Dose: 4 mg Oxybutynin Chloride (Oxybutynin Chloride 5 Mg Tab) 5 mg PO Q8H PRN PRN Reason: bladder spasms Stop: 01/03/25 18:06 Oxycodone HCl (Oxycodone Hcl 10 Mg Tabcr (Oxycontin)) 10 mg PO BID TEDDY Stop: 12/18/24 20:59 Last Admin: 12/07/24 21:12 Dose: 10 mg Pantoprazole Sodium (Pantoprazole 40 Mg Tab) 40 mg PO BID TEDDY Stop: 01/03/25 20:59 Last Admin: 12/08/24 08:51 Dose: 40 mg Phenazopyridine HCl (Phenazopyridine Hcl 200 Mg Tab) 200 mg PO Q8H PRN PRN Reason: pain Stop: 01/03/25 18:06 Polyethylene Glycol (Polyethylene (Miralax) 17 Gm Pack) 17 gm PO BID TEDDY Stop: 01/03/25 20:59 Last Admin: 12/08/24 08:55 Dose: 17 gm Potassium Chloride (Potassium Chloride Crtab 20 Meq Tabcr) 20 meq PO BID TEDDY Stop: 01/03/25 20:59 Last Admin: 12/08/24 08:49 Dose: 20 meq Rosuvastatin Calcium (Rosuvastatin Calcium 20 Mg Tab) 20 mg PO DAILY TEDDY Stop: 01/04/25 08:59 Last Admin: 12/08/24 08:54 Dose: 20 mg Sennosides (Senna 8.6 Mg Tab) 8.6 mg PO BID TEDDY Stop: 01/03/25 20:59 Last Admin: 12/08/24 08:51 Dose: 8.6 mg Simethicone (Simethicone 80 Mg Chew) 80 mg PO Q6H PRN PRN Reason: gas Stop: 01/03/25 18:06 Sodium Chloride (Sodium Chlor 7% 4 Ml Neb) 4 ml NEB BIDR TEDDY Stop: 01/03/25 15:59 Last Admin: 12/08/24 07:02 Dose: 4 ml Spironolactone (Spironolactone 25 Mg Tab) 25 mg PO DAILY TEDDY Stop: 01/04/25 08:59 Last Admin: 12/08/24 08:50 Dose: 25 mg Tamsulosin HCl (Tamsulosin Hcl 0.4 Mg Cap) 0.4 mg PO HS [facility] Stop: 01/03/25 20:59 Last Admin: 12/07/24 21:14 Dose: 0.4 mg PG Care Time/CCT Total # of Minutes Spent Total Time Spent with Patient: Total time spent is greater than 50% in coordination of care (as documented) at patient's floor/unit and/or counseling patient: Coding Level of Care Code 13023 SUB INP/OBS CARE 2/35MIN Diagnoses Acute bronchitis J20.9 Time Spent (min) 35
[2024-12-08] MEDS: metroNIDAZOLE 500 MG TAB PO SCH (09:50)
--- NOTE | 2024-12-08 12:55 | Vascular Medicine Consultation ---
Date of Consultation December 08, 2024 Assessment & Plan (1) Dizziness: There could be several reasons for his dizziness which I am sure being evaluated appropriately. As far as his vertebral artery issues are concerned, review of the CT arteriogram performed December 06, 2024 shows some calcification near the origin but I am not sure that there is significant stenosis here. There is some tortuosity of the left vertebral artery which I do not think is clinically significant. There is some concern about a stenosis in the left subclavian artery but to my review of the imaging, I am not sure that it is severe. Vertebral artery intervention, if it is to be performed, would be best performed by dedicated neurointerventional list. This is not a procedure that I would perform. It might be worth performing carotid duplex examination to try to assess any degree of stenosis in the vertebral arteries. Certainly a left subclavian artery stenosis could cause retrograde flow in the left vertebral artery which may contribute to some dizziness but none of his issues appear to be exertional related particularly upper extremity exertion related. If unable to identify any other cause of his dizzy symptoms, it might be worth obtaining consultation from a dedicated neuro interventionalists. I would leave this to the primary team to decide. History of Present Illness Reason for Consultation: Vertebral artery stenosis Attending Physician: Kala Allen DO History of Present Illness Asked to evaluate this 79-year-old gentleman admitted with pneumonia 12/04/2024 with findings of vertebral artery stenosis on CT arteriogram. He tells me he has had multiple episodes of dizziness primarily related to either sitting up quickly or during Valsalva. He had such an episode during this hospitalization which prompted the workup. I reviewed the CT arteriogram which demonstrates calcification near the origins of the vertebral arteries but it is unclear to me if there is a significant stenosis. Allergies Allergy/AdvReac Type Severity Reaction Status Date / Time bee venom protein (honey bee) Allergy Severe Swelling, Verified 12/04/24 16:07 Shortness of Breath Penicillins Allergy Severe Swelling, Verified 12/04/24 16:07 Difficulty Breathing lidocaine Allergy Mild Rash Verified 12/04/24 15:20 gabapentin Allergy Unknown Unknown Verified 12/04/24 16:07 icosapent ethyl Allergy Unknown Unknown Verified 12/04/24 16:07 pregabalin Allergy Unknown Unknown Verified 12/04/24 16:07 cefdinir AdvReac Severe Vomiting Verified 12/04/24 16:07 hydrocodone AdvReac Intermediate Gastrointestinal Verified 12/04/24 16:07 Upset oxycodone AdvReac Intermediate Gastrointestinal Verified 12/04/24 16:07 Upset ertapenem AdvReac Mild Vomiting Verified 12/04/24 15:20 Home Medications Medication Instructions Recorded Confirmed Type albuterol sulfate 90 mcg/actuation 2 puffs inhalation Q6H PRN 12/01/18 12/04/24 History aerosol inhaler Shortness Of Breath Or Wheezing bupropion HCl 100 mg tablet 100 mg PO BID 12/01/18 12/04/24 History docusate sodium 100 mg capsule 100 mg PO BID 12/01/18 12/04/24 History finasteride 5 mg tablet (Proscar) 5 mg PO QAM 12/01/18 12/04/24 History aspirin 81 mg tablet,delayed 81 mg PO QAM 12/21/18 12/04/24 History release sennosides 8.6 mg tablet 17.2 mg PO BID PRN Constipation 12/21/18 12/04/24 History white petrolatum-mineral oil 56.8 1 applic OPB HS 12/21/18 12/04/24 History %-42.5 % eye ointment (Refresh Lacri-Lube) pantoprazole 40 mg tablet,delayed 40 mg PO BID 03/10/21 12/04/24 History release (Protonix) tiotropium 2.5 mcg-olodaterol 2.5 2 puff inhalation QAM 12/02/22 12/04/24 History mcg/actuation mist for inhalation (Stiolto Respimat) epinephrine 0.3 mg/0.3 mL 0.3 mg IM DIRECTED PRN 07/08/23 12/04/24 History injection, auto-injector Anaphylaxis apixaban 5 mg tablet (Eliquis) 5 mg PO BID #180 tabs 11/23/23 12/04/24 Rx vitamins A,C,H-enkm-tsysqu 4,296 1 cap PO BID 03/27/24 12/04/24 History mcg-226 mg-90 mg capsule (PreserVision AREDS) aluminum hydroxide gel 320 mg/5 mL 960 mg PO HS Heartburn 06/16/24 12/04/24 History oral suspension oxycodone 10 mg tablet,crush 10 mg PO Q12H Severe Chronic Pain 06/16/24 12/04/24 History resistant,extended release 12 hr (OxyContin) bumetanide 2 mg tablet 2 mg PO QAM 10/25/24 12/04/24 History ipratropium 0.5 mg-albuterol 3 mg 3 ml NEB Q6R PRN Shortness Of 10/25/24 12/04/24 History (2.5 mg base)/3 mL nebulization Breath Or Wheezing soln spironolactone 25 mg tablet 25 mg PO DAILY #90 tabs 10/31/24 12/04/24 Rx polyethylene glycol 3350 17 gram 17 g PO DAILY PRN Constipation 11/15/24 12/04/24 History oral powder packet (Miralax) menthol 0.44 %-zinc oxide 20.6 % 1 applic topical BID Skin 11/21/24 12/04/24 History topical ointment (Calmoseptine) irritation rosuvastatin 20 mg tablet 10 mg PO DAILY 11/21/24 12/04/24 History tamsulosin 0.4 mg capsule 0.4 mg PO HS #30 caps 11/29/24 12/04/24 Rx pramipexole 0.375 mg 0.375 mg PO DAILY #30 tabs 11/30/24 12/04/24 Rx tablet,extended release 24 hr carvedilol 6.25 mg tablet 3.125 mg PO BID 12/04/24 12/04/24 History clotrimazole 1 % topical cream 1 applic topical BID 12/04/24 12/04/24 History food supplemt, lactose-reduced 1 ea PO TID 12/04/24 12/04/24 History (Ensure oral liquid) metoclopramide HCl 10 mg tablet 10 mg PO AC 12/04/24 12/04/24 History tiotropium 2.5 mcg-olodaterol 2.5 2 puff inhalation DAILY 12/04/24 12/04/24 History mcg/actuation mist for inhalation (Stiolto Respimat) triamcinolone acetonide 0.025 % 1 applic topical DAILY 12/04/24 12/04/24 History topical cream Patient History Medical History History of blood transfusion x3 units "quite awhile ago" per patient Diverticular disease Incidental finding on colonoscopy per patient Recurrent UTI (urinary tract infection) multiple - just completed antibiotic Nephrolithiasis History of ESBL E. coli infection EMR 09/05/24 Idiopathic peripheral neuropathy Bilateral Lower Extremities Complex renal cyst Per records Centrilobular emphysema [facility] Cervical radiculopathy Full ROM per patient Gait disturbance Walker/Wheelchair Parkinsonism [facility] Neurology Agent orange exposure Opioid dependence COPD (chronic obstructive pulmonary disease) [facility] Permanent atrial fibrillation [facility] Cardiology Pressure ulcer of left heel, stage 4 [facility] Wound Clinic Atherogenic dyslipidemia Cardiomyopathy [facility] Cardiology HFrEF (heart failure with reduced ejection fraction) [facility] Cardiology Presence of combination internal cardiac defibrillator (ICD) and pacemaker Implanted 2010, replaced in Biventricular [employer] History of urinary self-catheterization self caths every other night CAD (coronary artery disease) 2010- stent x1 Follows with [facility] cardio Sleep apnea BiPap with 1.5L of O2 BPH loc w urin obs/LUTS Atrial tachycardia [facility] Cardiology CHF (congestive heart failure) [facility] Cardio Benign essential hypertension Elevated lactic acid level Unstageable pressure ulcer of left heel [facility] Wound Clinic Intrinsic minus hand Bilateral Episode of confusion [facility] Neurology Chest pain Resolved, denies at this time Peripheral arterial disease Hypertension Tremor Complex sleep apnea syndrome NYHA class 4 acute on chronic systolic heart failure [facility] cardiology Legally blind Chronic back pain History of DVT of lower extremity 2010 Macular degeneration Hearing deficit Bilateral Hearing Aids - Does not wear Depression Migraine Myocardial Infarction 2010 Pulmonary embolism 1992 + 2010 after heart attack Asthma Surgical History History of cardioversion 05/2024 [facility] History of vasectomy Status post coronary artery stent placement x1 stent - 2010 - [facility] Cardiology S/P epidural steroid injection History of foot surgery Right plantar fasciitis History of open reduction and internal fixation (ORIF) procedure left foot--hardware removed History of prostate biopsy x3--precancerous, just monitoring for now History of prostate surgery 07/2016--[facility] prostate vaproization History of cystoscopy multiple History of colonoscopy with polypectomy History of esophagogastroduodenoscopy (EGD) History of right inguinal hernia repair x3 History of Khari fundoplication History of cholecystectomy History of tooth extraction Upper/Lower Partial History of eye surgery right--macular degeneration History of bilateral cataract extraction History of cardiac cath 10/2010 @ [facility]--1 stent placed Family History Son Family history of diabetes mellitus Other Family history non-contributory No family history of adverse response to anesthesia Social History Smoking Status: Former smoker Tobacco Type: Cigarettes Cigarettes Per Day: 1993; Second Hand Exposure: No; Do You Dip or Chew Tobacco: No; Hx Alcohol Use: No Hx Substance Use: No Preferred Language: Amharic Communication Ability: Effective Visual Impairment: Partially Limited Hearing Ability: Use of Hearing Aid Excelsior Picker Required: No Beliefs That Will Affect Care: None marital status: Current Living Situation: Spouse current occupational status: retired How many Children do You have: 1 How many Children do You have Comment: son , able to assist with care as needed Feels Safe at Home: Yes Diet: low salt and regular caffeine: Yes during the past year weight has: remained stable Physical Activity Frequency: 3-4 Times per Week Assistive Devices: BiPap, Lift Chair, Oxygen - at Night, Stair Lift, Walker and Wheelchair Physical Exam Physical Exam: I do not hear any carotid bruits. Radial pulses are strong and equal bilaterally. There are no significant neurologic deficits on my exam. Results & Data Vital Signs (Past 12 Hours) Vital Signs Temp Pulse Resp BP Pulse Ox O2 Del Method O2 Flow Rate 12/08/24 12:11 36.6 C 89 18 110/75 95 Room Air 12/08/24 11:12 Nasal Cannula 2 12/08/24 08:13 36.5 C 90 17 131/86 98 Room Air 12/08/24 07:02 89 18 95 Nasal Cannula 3 12/08/24 02:48 36.2 C L 74 18 123/82 93 Nasal Cannula 3 PG Care Time/CCT Total # of Minutes Spent Total Time Spent with Patient: Total time spent is greater than 50% in coordination of care (as documented) at patient's floor/unit and/or counseling patient: Coding Level of Care Code 82920 INT INP/OBS CARE 2/55MIN Diagnoses Dizziness R42
[2024-12-09] MEDS ORDERED: VANCOMYCIN HCL 1,750 MG in SODIUM CHLORIDE 0.9% 500 ML IV SCH (05:00)
[2024-12-09 06:48] LABS: Hematocrit (blood only) 36.3 % (42.0-52.0); Hemoglobin 12.2 g/dl (14.0-18.0); Mean Corpuscular Hemoglobin 28.2 pg (25.0-34.0); Mean Corpuscular Volume 83.8 fL (80.0-100.0); Platelet Count 342 K/uL (130-400); RDW Standard Deviation 45.2 fL (36.4-46.3); Red Blood Count 4.33 M/uL (4.70-6.10); White Blood Count 13.44 K/ul (4.8-10.8)
[2024-12-09 07:17] LABS: Anion Gap 9.0 (3-11); Blood Urea Nitrogen 34.0 mg/dl (6-23); Calcium 9.2 mg/dl (8.6-10.3); Carbon Dioxide 27.0 mmol/L (21-32); Chloride 99.0 mmol/L (98-107); Creatinine Clr Calc Pharmacy 76.1 ml/min; Glucose 146.0 mg/dl (70-99(Fasting)); Potassium 4.4 mmol/L (3.5-5.1); Sodium 135.0 mmol/L (136-145)
[2024-12-09 07:55] VITALS: TEMP 97.9
--- NOTE | 2024-12-09 09:44 | Hospitalist Progress Note ---
Date of Service December 09, 2024 Assessment & Plan (1) Acute bronchitis: Plan Royce Louise is a 79 yo male with PMH of CAD s/p ICD, dysphagia A-fib, CHF, PCN allergy, COPD (room air baseline, quitted in 1992), hx of PE, PVD chronic wound, BPH with LUTS. hx of 2 prior LA with ICD placement his ICD battery has 3 months remained. has had multiple admission for CHF, PNA. on this admission. he presented on 12/04 with 5 days of drying cough, shortness of breath and noted to have acute respiratory failure on 6 liter and bronchitis and PNA he's has PCN allergy. plan for admission for IV doxycycycline and management for acute respiratory failure. he's need inpatient monitor for IV steroid, oxygen, PT evaluation 12/05, on oxygen; has congestion. 12/06, still on 3 liter oxygen; still has significant congestion; added flutter valve 1. acute respiratory failure, pneumonia 2. CHF, CAD s/p ICD, A-fib on eliquis 3. hx of COPD (room air baseline) 4. gastroparesis, GERD 5. BPH 6. chronic pain, severe hand arthritis 7. chronic wound overall plan breathing improved but still has WBC of 13-14 repeat CXR and u/a provide additiona dose of bumex 1mg today 2 step today to determine need for home oxygen. discussed he's at risk for microaspiration for his vertebral artery stenosis brain MRI negative for stroke however, CTA found vertebral artery stenosis patient and his agreeable for f/u with neurointerventional at [facility] 1. acute respiratory failure, pneumonia dysphagia, speech recommended easy chew and thin liquid repeat CXR and u/a today given WBC of 13-14 IV doxycycline. flagyl, IV solumedrol avoid PCN given allergy (intractable vomiting for 12-20 hours) hypertonic saline, inhale mucomyst, mucinex 1200 BID flutter valve script provide for nebulizer dysphagia, that's been discussed with the patient and advised about dysphagia diet. 2. CHF, CAD s/p ICD and A-fib cardiology noted that ICD battery has 2-3 months of lifespan left bumex 2mg daily, aldactone 25mg coreg 3.125mg , eliquis BID provide additoinal dose of bumex IV today 3. blurry vision brain MRI negative for stroke f/u with tinner helper, noted hx of macular degeneration f/u with neuroinventional specialist 4. vertebral artery stenosis spoke with vascular surgery; dr. Spencer requested evaluation by neuro-interventional family agreeable to see neurointerventional at [facility] 5. COPD, quitted smoking in 1992 room air at baseline multiple hospitalization he's on stiolto 2 puff inhale daily morning his pulmonary physician is located at [facility]. 6. neuropathy, ?? parkinson pramipexole 0.125mg tablet 5. gastroparesis, GERD, metoclopramide 5mg BID, protonix 40 BID 6. constipation c/w senna 8.6 BID and docusate 100g BID c/w miralax bID, Home med s/p lactulose suppository and responded well. 7. hypokalemia-c/w kcl 20mg BID 8. BPH-finsteride 5mg daily 7. mood disorder-wellbturin 100mg BID 8. 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 macular degeneration, dry eyee, c/w refresh lacri-lube, artificial tear 10. chronic wound, pressure ulcer of the left foot stage 3 was seen by wound on 12/01. avoid wearing brace till wound is heal no new foot wear. 11. hx of macular degeneration. 12. hx of PVD Admission and Anticipated Discharge Date Admission Date: December 04, 2024 Subjective his breathing is much better but he's still have WBC of 13-14 we discussed about speech evaluation and at risk for microaspiration also mentioned that his neuropathy, and tremor is affecting his oral intake given WBC elevation, repeat CXR today and u/a today he need f/u with neurointerventional for vertebral artery stenosis they are agreeable for seeing specialist at [facility] Physical Exam Physical Exam: VITALS: Reviewed. WEIGHT/BMI reviewed. GEN: chronically ill appearing; non-toxic appearing -Head: NC/AT; no JVD CV: RRR, no m/r/g. LUNGS: wheezing improved; no accessory muscle use; on room air ABD: Soft, NT/ND, NBS, no masses or organomegaly. : N/A MSK: No deformities, Normal gait. EXT: No clubbing, cyanosis, or edema. NEURO: AAOx3 Results & Data Results & Data Vital Signs (Past 12 Hours) Vital Signs Temp Pulse Pulse Resp BP Pulse Ox Pulse Ox 12/09/24 07:54 36.6 C 90 17 142/88 H 93 12/09/24 07:11 90 16 95 12/09/24 07:00 90 12/09/24 02:20 36.3 C L 92 H 18 116/75 92 12/09/24 00:00 94 12/08/24 22:53 36.2 C L 90 18 120/78 95 O2 Del Method O2 Del Method 12/09/24 07:54 Room Air 12/09/24 07:11 Room Air 12/09/24 07:00 12/09/24 02:20 Room Air 12/09/24 00:00 Room Air 12/08/24 22:53 Room Air Laboratory Results Laboratory Results - last 72 hr 12/06/24 12/06/24 12/06/24 09:11 17:09 18:52 WBC 10.37 RBC 4.77 Hgb 13.1 L Hct 40.7 L MCV 85.3 MCH 27.5 MCHC 32.2 RDW Std Deviation 45.7 RDW Coeff of Jerry 14.8 H Plt Count 323 MPV 10.2 Sodium 133 L 130 L Potassium 4.2 4.3 Chloride 99 97 L Carbon Dioxide 23 21 Anion Gap 11 12 H BUN 32 H 39 H Creatinine 0.96 1.07 Est Cr Clr Drug Dosing 77.1 69.2 eGFR 80.40 70.59 BUN/Creatinine Ratio 33.3 H 36.4 H Glucose 206 H 185 H POC Glucose 248 H Lactate 3.0 H* Calcium 9.3 8.7 Total Bilirubin 0.4 AST 19 ALT 17 Alkaline Phosphatase 62 Troponin I High Sens 10.1 Total Protein 7.4 Albumin 3.7 Globulin 3.7 Albumin/Globulin Ratio 1.0 Random Vancomycin 12/06/24 12/07/24 12/08/24 21:14 05:43 05:11 WBC 12.39 H 11.69 H RBC 4.18 L 4.32 L Hgb 11.6 L 11.9 L Hct 35.3 L 37.1 L MCV 84.4 85.9 MCH 27.8 27.5 MCHC 32.9 32.1 RDW Std Deviation 45.6 46.5 H RDW Coeff of Jerry 14.9 H 14.9 H Plt Count 320 313 MPV 10.6 9.8 Sodium 133 L 133 L Potassium 4.5 4.6 Chloride 101 100 Carbon Dioxide 24 28 Anion Gap 8 5 BUN 31 H 30 H Creatinine 0.83 0.97 Est Cr Clr Drug Dosing 89.2 76.3 eGFR 89.03 79.41 BUN/Creatinine Ratio 37.3 H 30.9 H Glucose 135 H 152 H POC Glucose Lactate 2.9 H* Calcium 8.6 8.9 Total Bilirubin 0.3 AST 14 ALT 14 Alkaline Phosphatase 50 Troponin I High Sens Total Protein 6.2 Albumin 3.3 L Globulin 2.9 Albumin/Globulin Ratio 1.1 Random Vancomycin 16.7 12/09/24 06:09 WBC 13.44 H RBC 4.33 L Hgb 12.2 L Hct 36.3 L MCV 83.8 MCH 28.2 MCHC 33.6 RDW Std Deviation 45.2 RDW Coeff of Jerry 14.8 H Plt Count 342 MPV 10.3 Sodium 135 L Potassium 4.4 Chloride 99 Carbon Dioxide 27 Anion Gap 9 BUN 34 H Creatinine 0.96 Est Cr Clr Drug Dosing 76.1 eGFR 80.40 BUN/Creatinine Ratio 35.4 H Glucose 146 H POC Glucose Lactate Calcium 9.2 Total Bilirubin AST ALT Alkaline Phosphatase Troponin I High Sens Total Protein Albumin Globulin Albumin/Globulin Ratio Random Vancomycin PG Care Time/CCT Total # of Minutes Spent Total Time Spent with Patient: Total time spent is greater than 50% in coordination of care (as documented) at patient's floor/unit and/or counseling patient: Coding Level of Care Code 27711 SUB INP/OBS CARE 2/35MIN Diagnoses Acute bronchitis J20.9 Time Spent (min) 36
--- NOTE | 2024-12-09 10:25 | XRay Report ---
Technique: 2 frontal views of the chest were obtained Findings: There is right lower lobe alveolar opacity, concerning for pneumonia. The heart is enlarged. No definite pneumothorax is seen. There is a moderate sized left pleural effusion and there is a small right pleural effusion No fracture is noted. There is a left chest wall pacemaker device Impression: 1. Suspected right lower lobe pneumonia 2. Left larger than right pleural effusions 3. Cardiomegaly ACT 112: Positive. There are findings on this exam that require communication between the performing entity and the patient following Patient Test Result Information Act ([place] ACT 112) guidelines Electronically signed by Jatin Robertson 12-09-2024 10:24 AM
[2024-12-09 10:44] LABS: Appearance Urine Clear (Clear); Bacteria Urine Automated None Seen (None Seen); Cast Urine Automated 0-2 /lpf (0-2); Epithelial Cell Urine Auto 0-2 /hpf (0-2); Glucose Urine UA Negative (Negative); WBC Urine Automated 21-50 /hpf (0-5)
[2024-12-09 12:22] VITALS: RESP 20; O2SAT 91
[2024-12-09 13:25] LABS: Hematocrit (blood only) 39.3 % (42.0-52.0); Hemoglobin 12.8 g/dl (14.0-18.0); Mean Corpuscular Hemoglobin 27.5 pg (25.0-34.0); Mean Corpuscular Volume 84.3 fL (80.0-100.0); Platelet Count 377 K/uL (130-400); RDW Standard Deviation 45.9 fL (36.4-46.3); Red Blood Count 4.66 M/uL (4.70-6.10); White Blood Count 14.85 K/ul (4.8-10.8)
[2024-12-09] MEDS: BUMETANIDE 1 MG in SYRINGE 0 ML IV ONE (13:45)
[2024-12-09 15:43] VITALS: BP 106/67; PULSE 88
[2024-12-09] MEDS: MEROPENEM 500 MG in SYRINGE 0 ML IV SCH (16:00)
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
== END 2024-12-09 17:09 | disposition home health service (06) | DRG 193 ==
LOC: ED 11:53 → EDINP 16:06 → 2S 12-05 04:02

== ENCOUNTER 2025-01-07 11:53 | Inpatient (IN) ==
--- NOTE | 2025-01-07 12:13 | XRay Report ---
XR chest 1V portable CLINICAL HISTORY: Chest pain, nonspecific COMPARISON STUDY: 12/09/2024 FINDINGS: Stable pacemaker. Stable prominent cardiomegaly with pulmonary vascular congestion. Stable hazy opacity in the lung bases with obscuration of the diaphragm, left greater than right. No pneumot horax. IMPRESSION: Stable exam with CHF and bilateral pleural effusions and lung base consolidation, left g reater than right. ACT 112: Negative or not required by law. Electronically signed by: Rodríguez Roldan M.D. 01/07/2025 12:12 PM
[2025-01-07] MEDS: ASPIRIN CHEW 324 MG PO STA (12:30)
[2025-01-07 12:36] LABS: Base Excess VBG 1.5 mEq/L; HCO3 VBG 25 mmol/L; Oxygen Saturation VBG 74.8 %; PCO2 VBG 34 mmHg (38-50); PO2 VBG 44 mmHg; pH VBG 7.47 (7.36-7.41)
[2025-01-07 12:40] LABS: Hematocrit (blood only) 39.5 % (42.0-52.0); Hemoglobin 12.7 g/dl (14.0-18.0); Immature Granulocytes # (auto) 0.11 K/uL (0.01-0.20); Immature Granulocytes % (auto) 0.8 %; Mean Corpuscular Hemoglobin 27.7 pg (25.0-34.0); Mean Corpuscular Volume 86.2 fL (80.0-100.0); Platelet Count 360 K/uL (130-400); RDW Standard Deviation 48.9 fL (36.4-46.3); Red Blood Count 4.58 M/uL (4.70-6.10); White Blood Count 14.40 K/ul (4.8-10.8)
[2025-01-07 12:59] LABS: Anion Gap 10.0 (3-11); Blood Urea Nitrogen 18.0 mg/dl (6-23); Calcium 8.9 mg/dl (8.6-10.3); Carbon Dioxide 24.0 mmol/L (21-32); Chloride 98.0 mmol/L (98-107); Creatinine Clr Calc Pharmacy 73.2 ml/min; Glucose 124.0 mg/dl (70-99(Fasting)); Lipase 17.0 U/L (11-82); Potassium 4.2 mmol/L (3.5-5.1); Sodium 132.0 mmol/L (136-145)
[2025-01-07 13:09] LABS: INR 1.1 (0.9-1.1); Partial Thromboplastin Time 31 Seconds (21-31); Prothrombin Time 11.7 Seconds (9.0-12.0)
[2025-01-07 13:23] LABS: Chlamydia pneumoniae PCR Not Detected (NotDetected); Coronavirus 229E PCR Not Detected (NotDetected); Coronavirus CoV-2 (COVID19)PCR Not Detected (NotDetected); Coronavirus HKU1 PCR Not Detected (NotDetected); Coronavirus NL63 PCR Not Detected (NotDetected); Coronavirus OC43PCR Not Detected (NotDetected); Human Metapneumovirus PCR Not Detected (NotDetected); Parainfluenza Virus 1 PCR Not Detected (NotDetected); Parainfluenza Virus 2 PCR Not Detected (NotDetected); Parainfluenza Virus 3 PCR Not Detected (NotDetected); Parainfluenza Virus 4 PCR Not Detected (NotDetected); Respiratory Syncytial VirusPCR Not Detected (NotDetected); Rhinovirus/Enterovirus PCR Not Detected (NotDetected)
[2025-01-07] MEDS: FUROSEMIDE 40 MG/4 ML VIAL IV ONE (14:04)
[2025-01-07] MEDS ORDERED: ACETAMINOPHEN 325 MG TAB PO PRN (14:08)
--- NOTE | 2025-01-07 16:41 | History & Physical Report ---
Date of Service January 07, 2025 Assessment & Plan (1) Acute on chronic hypoxic respiratory failure: Plan: As above in the History of Present Illness. (2) Acute on chronic systolic CHF (congestive heart failure): Plan: As above in the History of Present Illness. (3) Sepsis: Plan: As above in the History of Present Illness. (4) Fungal dermatitis: Plan: As above in the History of Present Illness. (5) Chronic hyponatremia: Plan: As above in the History of Present Illness. (6) Ambulatory dysfunction: Plan: As above in the History of Present Illness. History of Present Illness Chief Complaint: "I started getting short of breath on Wednesday morning (01/05/2025, 9:00am) after I started using the Duoneb medicine with my nebulizer machine. I never used the Duoneb medicine until this Wednesday morning (01/05/2025, 9:00am). I had a dry cough and some wheezing, but no chest pains. No fevers or chills or sweating. Nobody at home but me and my , and she is not sick with anything. My legs were not swelling up and I was actually losing weight on purpose, by not eating. For example, I only ate half of one egg this morning before my drove me to [facility] ER today. I used to weigh 217 pounds earlier this year, and I am now down to 200 to 205 pounds. I don't know why I am getting short of breath since Wednesday morning (01/05/2025, 9:00am). Do you think I am having an allergic reaction to the Duoneb medicine?" Primary Care Provider: Tramaine Peterson MD 79 years old male with PMH of FULL CODE @ home with , obesity with BMI 32.3 (height 180.34 cm; weight 105.1 kg), ROSE on 1.5 liters/minute O2 via nocturnal CPAP @ 10 cm H2O, non-diabetic ulnar neuropathy and cervical radiculopathy affecting the bilateral hands, now on home-scheduled oxycodone 10mg PO q12, Parkinson's disease with resting tremors of the bilateral hands, not on sinemet, amantidine, or selegiline for unclear reasons, now dependent on both vgjphv-pbd-[id number] @ home, BPH on home-scheduled finasteride 5mg PO daily and tamsulosin 5mg PO daily, restless legs syndrome on home-scheduled pramipexole 0.375mg PO daily, GERD on home-scheduled protonix 40mg PO bid, chronic normocytic, normochromic anemia with progressive decline in baseline Hb range from 13.7 g/dL, MCV 88.7, MCHC 33.5 (02/23/2023, 9:20am) to 12.8 g/dL, MCV 84.3, MCHC 32.6 (12/09/2024, 1:05pm), allergic rhinitis on home-scheduled cetirizine 10mg PO daily and fluticasone nasal spray, 50ug/spray, 1 spray to each nostril daily, MRSA nares + (02/23/2023, time ?; 07/25/2024, time ?; 08/14/2024, 9:13am), MRSA nares- (12/04/2024, 12:45pm), major depression on home-scheduled bupropion 100mg PO bid, former tobacco abuse with subsequent diagnosis of chronic hypoxic respiratory failure due to end-stage COPD on 2 liters/minute O2 via nasal cannula at bedtime only, never on O2 during the daytime, not on home steroids, just home-scheduled albuterol MDI 90ug/puff, 2 puffs PO q6 prn SOB/wheeze, duonebs q6 [id number] starting on Wednesday morning (01/05/2025, 9:00am), and long-acting beta 2 adrenergic agonist oladaterol 2.5ug/puff, 1 puff inhaled daily, never intubated, recent development of chronic leukocytosis with baseline WBC 11.03 (12/04/2024, 12:45pm) to 14.85 (12/09/2024, 1:05pm), CAD s/p acute "major heart attack" (2010, [facility]), s/p stent x 1 (2010, [facility], Interventional CARDS Dr. Royce Negron), now on home-scheduled ASA 81mg PO daily and rosuvastatin 20mg PO qhs, complicated by acute PE and acute LLE DVT (2010) thereafter, now on apixaban 5mg PO bid, followed by development of chronic biventricular systolic CHF with reduced LVEF 20-25% and global hypokinesis with severe hypokinesis to akinesis of infero-lateral wall, NO LVH, and RV normal size with reduced systolic function and mild mitral regurgitation (as noted on 07/29/2024, 8:03am TTE, CARDS Dr. Marcelino Barkley), s/p Medtronic PPM+AICD (implanted in 2011, replaced in 2014 and in 2021, [facility] CARDS Dr. Nav Abreu; with battery change due in January 2025, as per patient's report) with 1 pillow and 1 pillow wedge orthopnea on a regular bed at home, no paroxysmal nocturnal dyspnea or platypnea, with dry baseline weight of 200-205 pounds at home, which represents a 10-17 pounds decline from patient's e arlier dry baseline weight of 217 pounds in April 2024, and which is due to intentional dieting on the patient's part as "I try to lose weight by not eating much," now maintained on home-scheduled carvedilol 3.125mg PO bid, bumex 2mg PO daily, and spironolactone 25mg PO daily, chronic euvolemic hyponatremia with baseline Na range, 130-135 mmol/L (09/09/2024 - 12/09/2024), chronic/persistent AFIB s/p PPM, s/p ablation (05/25/2024, [facility]), now on home- scheduled carvedilol 3.125mg PO bid and apixaban 5mg PO bid, who last presented to [facility] ER on 12/04/2024 with complaints of progressive SOB/POWERS, dry cough, and was admitted to the inpatient hospitalist service @ [facility] on 12/04/2024 with the following diagnosis: 1. Acute hypoxic respiratory failure of unclear etiology, attributed to acute bibasilar CAP, R/O aspiration PNA with admitting WBC 11.03, N67 L21 M7 E4 (12/04/2024, 12:45pm). Patient received empiric doxycycline and vancomycin given patient's allergy to penicillin (causing SOB/swelling), solumedrol, and duonebs prn. Patient was discharged home as he refused discharge to SNF on 12/09/2024 with discharge WBC 14.85, no differential (12/09/2024, 1:05pm) on doxycycline 100mg PO bid, #16 tablets, metronidazole 500mg PO bid, #16 tablets, and prednisone 50mg PO daily, #8 tablets, no refills. Patient returns to [facility] ER on 01/07/2025 with the following complaint: "I started getting short of breath on Wednesday morning (01/05/2025, 9:00am) after I started using the Duoneb medicine with my nebulizer machine. I never used the Duoneb medicine until this Wednesday morning (01/05/2025, 9:00am). I had a dry cough and some wheezing, but no chest pains. No fevers or chills or sweating. Nobody at home but me and my , and she is not sick with anything. My legs were not swelling up and I was actually losing weight on purpose, by not eating. For example, I only ate half of one egg this morning before my drove me to [facility] ER today. I used to weigh 217 pounds earlier this year, and I am now down to 200 to 205 pounds. I don't know why I am getting short of breath since Wednesday morning (01/05/2025, 9:00am). Do you think I am having an allergic reaction to the Duoneb medicine?" Patient also reports that he cannot remember when, but that "I must have banged my right hand when using my wheelchair because now my right hand is swollen and my right ring finger is even more swollen and red and hurts a lot. My said that the fingernail looks like it is coming off, too." Patient denies antecedent/coincident fevers, chills, diaphoresis, sore throat, hemoptysis, chest pains, palpitations, pleurisy, nausea, vomiting, diarrhea, abdominal pain, pelvic pain, hematemesis, hematochezia, melena, hematuria, dysuria, frequency, urgency, flank pain, headaches, dizziness, lightheadedness, visual changes, hearing changes, weakness, falls, syncope, travel history, sick contacts, or food/drug ingestions novel or new. All other review of systems are reported as negative by the patient on admission date 01/07/2025. In [facility] ER bed #C09, patient was afebrile at 36.9 degrees Celsius, HR 91, RR 22, O2 sat 86% on room air, and repeat O2 sat 94% on 2 liters/minute O2 via nasal cannula, and BP 120/70 (01/07/2025, 12:00pm). Exam was noted for coarse breath sounds bilaterally with no audible expiratory whe maximo, egophony, pectoriloquy, increase in tactile fremitus, or flatness/dullness to percussion at the bases. Jugular venous pressure could not be estimated as I could not discern patient's sternal angle of [place] due to body habitus with BMI 32.3 (height 180.32 cm; weight 105.1 kg). Patient had no edema of the bilateral feet, shins, knees, hips, or thighs. Exam was also noted for bilateral hand t remors that extinguished with intentional movement. In addition, patient's right dorsal hand appeared slightly edematous, but not was NOT erythematous, warm, indurated, tender, ulcerative, malodorous, and without crepitus, fluctuance, discharge (sanguineous, serous, suppurative), or lymphangitic streaking. However, patient's right 4th finger was grossly edematous circumferentially with a sausage appearance, with associated erythema, warmth, induration, tenderness, and fluctuance, but no ulceration, malodor, crepitus, discharge (sanguineous, serous, suppurative), or lymphangitic streaking; a well- healed 2mm scab overlying the right 4th finger proximal interphalangeal joint was present, along with a proximal sub-ungual hematoma @ right 4th finger nailplate with distal onychomycosis. Of note, patient had slight erythema on the bilateral inframammary intertriginous zones and the bilateral inguinal intertriginous zones. Of final note, there were no heel decubiti, no elbow decubiti, no posterior ear decubiti, and no sacral decubiti on re-admission date 01/07/2025. Labs in [facility] ER bed #C09 included: WBC 14.4, N76 L15 M8 E1, Hb 12.7, MCV 86.2, MCHC 32.2, platelet 360 (01/07/2025, 12:25pm). Lactic acid #1 1.7 mmol/L (01/07/2025, 2:49pm). Lactic acid #2 (01/07/2025, 6:49pm). Procalcitonin #1 0.06 ng/mL (01/07/2025, 2:49pm). Respiratory pathogen PCR panel negative (01/07/2025, 12:28pm). Urinalysis (01/07/2025, 2:49pm). Na 132, K 4.2, BUN 18, creatinine 1.01, GFR 75.65, glucose 124, Ca 8.9 (01/07/2025, 12:25pm). Lipase 17 U/L (01/07/2025, 12:25pm). Troponin-I #1 19.6 pg/mL (01/07/2025, 12:25pm). Troponin-I #2 20.0 pg/mL (01/07/2025, 4:05pm). BNP 194 pg/mL (01/07/2025, 12:25pm). Additional testing in [facility] ER bed #C09 included: Portable CXR (01/07/2025, 12:06pm): 1. Old bibasilar infiltrates, bilateral effusions (moderate left, small right), cardiomegaly, pulmonary vascular congestion. 2. No pneumothorax. (by my review). Portable CXR (12/09/2024, 9:30am): 1. Bibasilar infiltrates, bilateral effusions (moderate left, small right), cardiomegaly, pulmonary vascular congestion. 2. No pneumothorax. (by my review). EKG (01/07/2025, 12:07pm): Ventricular pacing @ 97, QTC 546 (by my review). EKG (12/05/2024, 8:57am): Dual AV pacing @ 88, QTC 549 (by my review). Patient was subsequently re-admitted to [facility] on 01/07/2025 with the following diagnoses: 1. Htfrp-oj-hxujayc hypoxic respiratory failure of unclear etiology, but probably due to: A. Acute exacerbation of end-stage COPD. B. Acute exacerbation of chronic biventricular systolic CHF with reduced LVEF 20-25% and global hypokinesis with severe hypokinesis to akinesis of infero- lateral wall, NO LVH, and RV normal size with reduced systolic function and mild mitral regurgitation (as noted on 07/29/2024, 8:03am TTE, CARDS Dr. Marcelino Barkley), s/p Medtronic PPM+AICD (implanted in 2011, replaced in 2014 and in 2021, [facility] CARDS Dr. Nav Abreu; with battery change due in January 2025, as per patient's report) with 1 pillow and 1 pillow wedge orthopnea on a regular bed at home, no paroxysmal nocturnal dyspnea or platypnea, with dry baseline weight of 200-205 pounds at home, which represents a 10-17 pounds decline from patient's earlier dry baseline weight of 217 pounds in April 2024, and which is due to intentional dieting on the patient's part as "I try to lose weight by not eating much," now maintained on home-scheduled carvedilol 3.125mg PO bid, bumex 2mg PO daily, and spironolactone 25mg PO daily. 2. Sepsis (cf., HR > 90, RR > 20, WBC > 12) without septic shock, without end- organ (renal) failure, due to acute right 4th finger non-suppurative, non- bullous cellulitis. 3. Fungal dermatitis of the bilateral inframammary intertriginous zones and bilateral inguinal intertriginous zones. 4. Chronic euvolemic hyponatremia with admission Na 132 mmol/L (01/07/2025, 12:25pm) with baseline Na range, 130-135 mmol/L (09/09/2024 - 12/09/2024). 5. Chronic ambulatory dysfunction utilizing zsgssg-sqoiegzihk-esoivtsnc @ home. To address #1A, patient was continued on patient's home-scheduled 2 liters/minute O2 via nasal cannula at bedtime only, now on 2 liters/minute O2 via nasal cannula oeuubj-lsw-tyigj, duonebs q6, duonebs q4 prn SOB/wheeze, solumedrol 60mg IV daily (day #1/3 on 01/07/2025, 6:00pm), and protonix 40mg PO daily (day #1/3 on 01/07/2025, 5:59pm)(to prophylax against steroid-associated gastritis, ulcer formation, and/or GI bleeding). To address #1B, patient was started on lasix 40mg IV x 1 dose (01/07/2025, 2:04pm) in [facility] ER bed #C09, in lieu of patient's home- scheduled bumex 2mg PO daily. Patient will continue with lasix 40mg IV bid x 4 doses (starting on 01/07/2025, 5:33pm), 2 gram Na diet, daily weights, strict I/O, home-scheduled carvedilol 3.125mg PO bid and home-scheduled spironolactone 25mg PO daily in [facility] Tele bed #N279-1. Given the recent TTE (07/25/2024, 8:03am TTE, as ordered by patient's Interventional CARDS Dr. Royce Negron)(see report below), I have opted to hold OFF repeat TTE evaluation while patient remains in [facility]. cf., TTE (07/25/2024, 8:03am TTE, CARDS Dr. Marcelino Barkley): 1. LVEF 25-30%. Global hypokinesis with severe hypokinesis to akinesis of inferolateral wall. No LVH. Indeterminate diastolic function. 2. RV grossly normal size. PPM lead in RV. RV systolic function reduced as assessed by tricuspid annular plane systolic excursion (TAPSE < 1.6 cm). 3. LA/RA not well visualized. 4. No significant AR. No hemodynamically significant . 5. No significant VT. No PS. 6. Mild MR. No MS. 7. No significant TR. No TS. 8. Aortic root normal size. Normal IVC size and collapsibility with sniff indicates normal RAP of 3 mm Hg. 9. No significant pericardial effusion. (as per CARDS Dr. Marcelino Barkley). To address #2, patient is being started on vancomycin 1g IV q12 (day #05/05 on 01/07/2025, 7:00pm) and doxycycline 100mg IV q12 (day #05/05 on 01/07/2025, 7:00pm) in [facility] Telemetry bed #N279-1. I will check vitals, right 4th finger exam, WBC w/differential, lactic acid, procalcitonin, and surveillance blood cultures x 2 (01/07/2025, 6:25pm) in the 01/08/2025 am. To address #3, patient is being started on nystatin powder, 100,000 units/gram, topically applied to the bilateral inframammary intertriginous zones and bilateral inguinal intertriginous zones (day #05/25 on 01/07/2025, 7:00pm). To address #4, patient is being observed as patient remains asymptomatic with this mild degree of chronic euvolemic hyponatremia and which in all probability is due to a SIADH mechanism in the setting of chronic biventricular systolic CHF with reduced LVEF 20-25% and global hypokinesis with severe hypokinesis to akinesis of infero-lateral wall, NO LVH, and RV normal size with reduced systolic function and mild mitral regurgitation (as noted on 07/29/2024, 8:03am TTE, CARDS Dr. Marcelino Barkley). To address #5, patient awaits PT/OT Service evaluations in the days to come with anticipated D/C to SNF for short-term rehab as patient appears significantly deconditioned on re-admission date 01/07/2025. Allergies Allergy/AdvReac Type Severity Reaction Status Date / Time bee venom protein (honey bee) Allergy Severe Swelling, Verified 12/29/24 11:22 Shortness of Breath Penicillins Allergy Severe Swelling, Verified 12/29/24 11:22 Difficulty Breathing lidocaine Allergy Mild Rash Verified 12/29/24 11:22 gabapentin Allergy Unknown Unknown Verified 12/29/24 11:22 icosapent ethyl Allergy Unknown Unknown Verified 12/29/24 11:22 pregabalin Allergy Unknown Unknown Verified 12/29/24 11:22 cefdinir AdvReac Severe Vomiting Verified 12/29/24 11:22 hydrocodone AdvReac Intermediate Gastrointestinal Verified 12/29/24 11:22 Upset oxycodone AdvReac Intermediate Gastrointestinal Verified 12/29/24 11:22 Upset ertapenem AdvReac Mild Vomiting Verified 12/29/24 11:22 Home Medications Medication Instructions Recorded Confirmed Type bupropion HCl 100 mg tablet 100 mg PO BID 12/01/18 01/07/25 History white petrolatum-mineral oil 56.8 1 applic OPB HS 12/21/18 01/07/25 History %-42.5 % eye ointment (Refresh Lacri-Lube) pantoprazole 40 mg tablet,delayed 40 mg PO BID 03/10/21 01/07/25 History release (Protonix) epinephrine 0.3 mg/0.3 mL 0.3 mg IM DIRECTED PRN 07/08/23 01/07/25 History injection, auto-injector Anaphylaxis vitamins A,C,L-lmje-zcpnpl 4,296 1 cap PO BID 03/27/24 01/07/25 History mcg-226 mg-90 mg capsule (PreserVision AREDS) oxycodone 10 mg tablet,crush 10 mg PO Q12H Severe Chronic Pain 06/16/24 01/07/25 History resistant,extended release 12 hr (OxyContin) spironolactone 25 mg tablet 25 mg PO DAILY #90 tabs 10/31/24 01/07/25 Rx polyethylene glycol 3350 17 gram 17 g PO DAILY PRN Constipation 11/15/24 01/07/25 History oral powder packet (Miralax) menthol 0.44 %-zinc oxide 20.6 % 1 applic topical BID Skin 11/21/24 01/07/25 History topical ointment (Calmoseptine) irritation tamsulosin 0.4 mg capsule 0.4 mg PO HS #30 caps 11/29/24 01/07/25 Rx pramipexole 0.375 mg 0.375 mg PO DAILY #30 tabs 11/30/24 01/07/25 Rx tablet,extended release 24 hr carvedilol 6.25 mg tablet 3.125 mg PO BID 12/04/24 01/07/25 History clotrimazole 1 % topical cream 1 applic topical BID 12/04/24 01/07/25 History food supplemt, lactose-reduced 1 ea PO TID 12/04/24 01/07/25 History (Ensure oral liquid) metoclopramide HCl 10 mg tablet 10 mg PO BID 12/04/24 01/07/25 History triamcinolone acetonide 0.025 % 1 applic topical DAILY 12/04/24 01/07/25 History topical cream albuterol sulfate 90 mcg/actuation 1 inh inhalation Q6H PRN shortness 12/09/24 01/07/25 Rx aerosol inhaler (Ventolin HFA) of breath or wheezing 30 days #8.5 grams ipratropium 0.5 mg-albuterol 3 mg 3 ml NEB Q6R 30 days #30 mL 12/09/24 01/07/25 Rx (2.5 mg base)/3 mL nebulization soln apixaban 5 mg tablet (Eliquis) 5 mg PO BID 12/22/24 01/07/25 History cetirizine 10 mg tablet (Zyrtec) 0 mg PO DAILY 12/22/24 01/07/25 History nystatin 100,000 unit/gram topical 1 applic topical BID PRN fungal 12/22/24 01/07/25 History ointment infection aspirin 81 mg tablet 81 mg PO DAILY 12/27/24 01/07/25 History rosuvastatin 20 mg tablet 20 mg PO DAILY 12/27/24 01/07/25 History aluminum hydroxide gel 320 mg/5 mL 320 mg PO DAILY PRN Heartburn 01/07/25 01/07/25 History oral suspension bumetanide 2 mg tablet 2 mg PO DAILY 01/07/25 01/07/25 History docusate sodium 100 mg capsule 100 mg PO BID 01/07/25 01/07/25 History finasteride 5 mg tablet 5 mg PO DAILY 01/07/25 01/07/25 History fluticasone propionate 50 1 spray intranasal DAILY 01/07/25 01/07/25 History mcg/actuation nasal spray,suspension olodaterol 2.5 mcg/actuation mist 2 inh inhalation DAILY 01/07/25 01/07/25 History for inhalation sennosides 8.6 mg tablet (senna) 17.2 mg PO BID PRN Constipation 01/07/25 01/07/25 History Past Med/Surg History Problem List (Updated 01/07/25 @ 19:16 by Fabio Stoner MD, PhD) Ambulatory dysfunction Fungal dermatitis CHF exacerbation (Acute) Hypoxia (Acute) Chronic hyponatremia Sepsis Acute on chronic systolic CHF (congestive heart failure) Acute on chronic hypoxic respiratory failure Acid reflux Chronic constipation RLQ abdominal pain TIA (transient ischemic attack) Dizziness Acute exacerbation of chronic obstructive airways disease (Acute) Acute pneumonia (Acute) Presence of biventricular automatic cardioverter/defibrillator (AICD) [employer] - [facility] Ischemic cardiomyopathy Pressure ulcer of left foot, stage 3 (Acute) Chest pain (Acute) BPH w urinary obs/LUTS (Chronic) Renal cyst (Chronic) Nephrolithiasis (Chronic) Infection due to ESBL-producing Escherichia coli Pleural effusion due to CHF (congestive heart failure) Recurrent UTI (Chronic) Acute exacerbation of CHF (congestive heart failure) (Acute) Anticoagulant long-term use Stage III pressure ulcer of buttock (Acute) Centrilobular emphysema Bilateral foot-drop Spasticity upper limbs Agent orange exposure Ulnar neuropathy of both upper extremities Cervicogenic headache Complex renal cyst Cervical radiculopathy (Acute) Cervical spondylosis without myelopathy (Acute) Idiopathic peripheral neuropathy (Acute) Elevated PSA Biliary dyskinesia (Chronic) Balance problem Medical History Acute respiratory failure Acute hypoxemic respiratory failure History of blood transfusion x3 units "quite awhile ago" per patient Diverticular disease Incidental finding on colonoscopy per patient Recurrent UTI (urinary tract infection) multiple - just completed antibiotic Nephrolithiasis History of ESBL E. coli infection EMR 09/05/24 Idiopathic peripheral neuropathy Bilateral Lower Extremities Complex renal cyst Per records Centrilobular emphysema [facility] Cervical radiculopathy Full ROM per patient Gait disturbance Walker/Wheelchair Parkinsonism [facility] Agent orange exposure Opioid dependence COPD (chronic obstructive pulmonary disease) [facility] Permanent atrial fibrillation [facility] Pressure ulcer of left heel, stage 4 [facility] Atherogenic dyslipidemia Cardiomyopathy [facility] HFrEF (heart failure with reduced ejection fraction) [facility] Presence of combination internal cardiac defibrillator (ICD) and pacemaker Implanted 2010, replaced in Biventricular [employer] History of urinary self-catheterization self caths every other night CAD (coronary artery disease) 2011- stent x1 Follows with [facility] cardio Sleep apnea BiPap with 1.5L of O2 BPH loc w urin obs/LUTS Atrial tachycardia [facility] CHF (congestive heart failure) [facility] [place] Benign essential hypertension Elevated lactic acid level Unstageable pressure ulcer of left heel [facility] Intrinsic minus hand Bilateral Episode of confusion [facility] Chest pain Resolved, denies at this time Peripheral arterial disease Hypertension Tremor Complex sleep apnea syndrome NYHA class 4 acute on chronic systolic heart failure [facility] [place] Legally blind Chronic back pain History of DVT of lower extremity 2010 Macular degeneration Hearing deficit Bilateral Hearing Aids - Does not wear Depression Migraine Myocardial Infarction 2010 Pulmonary embolism 1992 + 2010 after heart attack Asthma Surgical History History of cardioversion 05/2024 [facility] [place] History of vasectomy Status post coronary artery stent placement x1 stent - 2010 - [facility] S/P epidural steroid injection History of foot surgery Right plantar fasciitis History of open reduction and internal fixation (ORIF) procedure left foot--hardware removed History of prostate biopsy x3--precancerous, just monitoring for now History of prostate surgery 07/2016--greenlight prostate vaproization History of cystoscopy multiple History of colonoscopy with polypectomy History of esophagogastroduodenoscopy (EGD) History of right inguinal hernia repair x3 History of Khari fundoplication History of cholecystectomy History of tooth extraction Upper/Lower Partial History of eye surgery right--macular degeneration History of bilateral cataract extraction History of cardiac cath 10/2010 @ [facility]--1 stent placed Family History (Updated 01/07/25 @ 18:23 by Fabio Stoner MD, PhD) Son , at 46 years of age from bilateral CAP; born with 6 congenital defects including urinary tract closure/fusion x 2 with bilateral hydronephrosis, requiring repair @ [facility] ([facility]), scoliosis, pectus excavatum, and pes planus bilateral. Family history of diabetes mellitus Father , at 61 years of age from lung carcinoma in the setting of tobacco abuse. No problems noted. Mother , at 94 years of age from natural causes. No problems noted. Other Family history non-contributory No family history of adverse response to anesthesia Social History Smoking Status: Former smoker Tobacco Type: Cigarettes Cigarettes Per Day: 1992; Second Hand Exposure: No; Do You Dip or Chew Tobacco: No; Hx Alcohol Use: No Hx Substance Use: No Preferred Language: Pashto Communication Ability: Effective Visual Impairment: Partially Limited Hearing Ability: Use of Hearing Aid Car Dealer Required: No Beliefs That Will Affect Care: None marital status: Current Living Situation: Spouse current occupational status: retired How many Children do You have: 1 How many Children do You have Comment: son , able to assist with care as needed Feels Safe at Home: Yes Diet: low salt and regular caffeine: Yes during the past year weight has: remained stable Physical Activity Frequency: 3-4 Times per Week Assistive Devices: BiPap, Lift Chair, Oxygen - at Night, Stair Lift, Walker and Wheelchair Immunizations: Unknown. Review of Systems Constitutional: As above in the History of Present Illness. Physical Exam Constitutional: General: Uncomfortable with dyspnea at rest with dry cough and wheeze, yet very cooperative, coherent. Wide awake and alert. Not confused, lethargic, or obtunded. Patient speaks in complete, fluent, and articulate sentences, pausing frequently to cough and wheeze. HEENT: Normocephalic, atraumatic. Extra-ocular muscles intact. Pupils equally round and reactive to light. No nystagmus, gaze paresis, anisocoria, miosis, mydriasis, hyphema, chemosis, scleral injection, conjunctivitis, or pterygium. No otorrhea or rhinorrhea. No pharyngeal discharge or exudate. Neck: Supple, no stridor or bruit. Jugular venous pressure cannot be estimated, as I cannot identify the landmark sternal angle of [place], which is, by definition, 5 cm above the level of the right atrium, due to patient's habitus with BMI 32.3 (height 180.34 cm; weight 105.1 kg) with petit neck, which further obscures any jugular venous distention. Lymphatics: No anterior/posterior cervical, infraclavicular, supraclavicular, axillary, epitrochlear, or inguinal adenopathy. Chest: Symmetric rise and fall with respirations. Non-tender to palpation. Lungs: Coarse breath sounds bilaterally with audible expiratory wheeze. No egophony, pectoriloquy, increase in tactile fremitus, or flatness/dullness to percussion at the bases. Heart: Regular rate and rhythm. S1 and S2 noted. No S3 or S4 summation gallop. No tripartite friction rub. Grade II/ early systolic murmur at left lower sternal border without radiation to the carotids, axilla, or back, and which remains invariant in regards to the respiratory cycle. Abdomen: Soft, non-tender, non-distended. No rebound, guarding, Fitch's sign, or organomegaly. Bowel sounds auscultated in all 4 quadrants. Extremities: No clubbing, cyanosis, or edema. 2+ pedal pulses bilaterally. Skin: No enanthem. Skin: No heel decubiti, no elbow decubiti, no posterior ear decubiti, and no sacral decubiti on re-admission date 01/07/2025. Skin: Right dorsal hand appears slightly edematous, but is NOT erythematous, warm, indurated, tender, ulcerative, malodorous, and without crepitus, fluctuance, discharge (sanguineous, serous, suppurative), or lymphangitic streaking. Patient concedes: "I must have banged my right hand when using my wheelchair because now my right hand is swollen and my right ring finger is even more swollen and red and hurts a lot. My said that the fingernail looks like it is coming off, too." Skin: Right 4th finger is grossly edematous circumferentially with a sausage appearance, with associated erythema, warmth, induration, tenderness, and fluctuance, but no ulceration, malodor, crepitus, discharge (sanguineous, serous, suppurative), or lymphangitic streaking; a well-healed 2mm scab overlying the right 4th finger proximal interphalangeal joint is present, along with a proximal sub-ungual hematoma @ right 4th finger nailplate with distal onychomycosis. Skin: Slight erythema, non-pruritic, no ulceration/vesiculation on the bilateral inframammary intertriginous zones and the bilateral inguinal intertriginous zones. Urology: No ray catheter. No purewick. No urethral discharge. Neurology: Alert and oriented in regards to person, place, time, and situation. DTR+. 5/5 motor strength in all 4 extremities, both proximally and distally. Bilateral hand tremors that extinguish with intentional movement, consistent with Parkinson's disease: no cogwheel rigidity, no masked facies. Gait not tested in [facility] ER bed #C09 to observe for the presence or absence of shuffling gait, scissoring gait, or retropulsion. Psychiatry: No flat affect. No monotone voice. Smiles appropriately. Results & Data Results & Data Vital Signs (Past 12 Hours) Vital Signs Temp Pulse Pulse Resp BP BP Pulse Ox 01/07/25 15:54 90 22 120/84 01/07/25 14:28 90 16 137/85 96 01/07/25 14:18 89 18 137/85 95 01/07/25 13:36 95 H 32 H 01/07/25 13:03 94 H 20 94 01/07/25 12:48 95 H 20 94 01/07/25 12:35 93 01/07/25 12:11 94 H 01/07/25 12:00 124 H 24 89 L 01/07/25 12:00 86 L 01/07/25 12:00 36.9 C 91 H 22 120/70 86 L 01/07/25 11:58 120/70 O2 Del Method O2 Flow Rate 01/07/25 15:54 01/07/25 14:28 01/07/25 14:18 Nasal Cannula 2 01/07/25 13:36 01/07/25 13:03 01/07/25 12:48 Nasal Cannula 2 01/07/25 12:35 Nasal Cannula 2 01/07/25 12:11 01/07/25 12:00 01/07/25 12:00 Room Air 01/07/25 12:00 Room Air 01/07/25 11:58 Laboratory Results As above in the History of Present Illness. Diagnostic Findings As above in the History of Present Illness. Code Status & VTE Plan VTE Prophylaxis Plan VTE Prophylaxis will be ordered: Yes PG Care Time/CCT Total # of Minutes Spent Total Time Spent with Patient: Total time spent is greater than 50% in coordination of care (as documented) at patient's floor/unit and/or counseling patient: Coding Level of Care Code 54640 INT INP/OBS CARE 3/75MIN Diagnoses Acute on chronic hypoxic respiratory failure J96.21 Acute on chronic systolic CHF (congestive heart failure) I50.23 Sepsis A41.9 Fungal dermatitis B36.9 Chronic hyponatremia E87.1 Ambulatory dysfunction R26.2
[2025-01-07] MEDS: FINASTERIDE 5 MG TAB PO SCH (17:32)
[2025-01-07] MEDS: SPIRONOLACTONE 25 MG TAB PO SCH (17:33)
[2025-01-07] MEDS: FLUTICASONE PROPIONATE NA SPR 16 GM BTL SCH (17:33)
[2025-01-07] MEDS: FUROSEMIDE 40 MG/4 ML VIAL IV SCH (17:33)
[2025-01-07] MEDS ORDERED: ALBUT/IPRATROP 3MG/0.5MG NEB 3 ML VIAL NEB PRN (17:52)
[2025-01-07] MEDS ORDERED: VANCOMYCIN CONSULT ACTIVE PRN (18:53)
--- NOTE | 2025-01-07 19:03 | Emergency Department Note ---
History of Present Illness General Chief Complaint: Illness Stated Complaint: FLU LIKE SX Time Seen by Provider: 01/07/25 12:00 History of Present Illness Provider Complaint: shortness of breath Onset (ago): day(s) (2) Consistency/Duration: + progressively worsening Relieved By: + upright position Exacerbated By: + lying flat Known history of: congestive heart failure Associated symptoms: + fever, + cough, + sputum production, + orthopnea, + chest congestion and + other (Myalgias); no chest pain, no wheezing, no paresthesias, no hemoptysis or no abdominal pain Related Data Home oxygen amount: none Home Medications Medication Instructions Recorded Confirmed Type bupropion HCl 100 mg tablet 100 mg PO BID 12/01/18 01/07/25 History white petrolatum-mineral oil 56.8 1 applic OPB HS 12/21/18 01/07/25 History %-42.5 % eye ointment (Refresh Lacri-Lube) pantoprazole 40 mg tablet,delayed 40 mg PO BID 03/10/21 01/07/25 History release (Protonix) epinephrine 0.3 mg/0.3 mL 0.3 mg IM DIRECTED PRN 07/08/23 01/07/25 History injection, auto-injector Anaphylaxis vitamins A,C,Q-qqqx-jsiyww 4,296 1 cap PO BID 03/27/24 01/07/25 History mcg-226 mg-90 mg capsule (PreserVision AREDS) oxycodone 10 mg tablet,crush 10 mg PO Q12H Severe Chronic Pain 06/16/24 01/07/25 History resistant,extended release 12 hr (OxyContin) spironolactone 25 mg tablet 25 mg PO DAILY #90 tabs 10/31/24 01/07/25 Rx polyethylene glycol 3350 17 gram 17 g PO DAILY PRN Constipation 11/15/24 01/07/25 History oral powder packet (Miralax) menthol 0.44 %-zinc oxide 20.6 % 1 applic topical BID Skin 11/21/24 01/07/25 History topical ointment (Calmoseptine) irritation tamsulosin 0.4 mg capsule 0.4 mg PO HS #30 caps 11/29/24 01/07/25 Rx pramipexole 0.375 mg 0.375 mg PO DAILY #30 tabs 11/30/24 01/07/25 Rx tablet,extended release 24 hr carvedilol 6.25 mg tablet 3.125 mg PO BID 12/04/24 01/07/25 History clotrimazole 1 % topical cream 1 applic topical BID 12/04/24 01/07/25 History food supplemt, lactose-reduced 1 ea PO TID 12/04/24 01/07/25 History (Ensure oral liquid) metoclopramide HCl 10 mg tablet 10 mg PO BID 12/04/24 01/07/25 History triamcinolone acetonide 0.025 % 1 applic topical DAILY 12/04/24 01/07/25 History topical cream albuterol sulfate 90 mcg/actuation 1 inh inhalation Q6H PRN shortness 12/09/24 01/07/25 Rx aerosol inhaler (Ventolin HFA) of breath or wheezing 30 days #8.5 grams ipratropium 0.5 mg-albuterol 3 mg 3 ml NEB Q6R 30 days #30 mL 12/09/24 01/07/25 Rx (2.5 mg base)/3 mL nebulization soln apixaban 5 mg tablet (Eliquis) 5 mg PO BID 12/22/24 01/07/25 History cetirizine 10 mg tablet (Zyrtec) 0 mg PO DAILY 12/22/24 01/07/25 History nystatin 100,000 unit/gram topical 1 applic topical BID PRN fungal 12/22/24 01/07/25 History ointment infection aspirin 81 mg tablet 81 mg PO DAILY 12/27/24 01/07/25 History rosuvastatin 20 mg tablet 20 mg PO DAILY 12/27/24 01/07/25 History aluminum hydroxide gel 320 mg/5 mL 320 mg PO DAILY PRN Heartburn 01/07/25 01/07/25 History oral suspension bumetanide 2 mg tablet 2 mg PO DAILY 01/07/25 01/07/25 History docusate sodium 100 mg capsule 100 mg PO BID 01/07/25 01/07/25 History finasteride 5 mg tablet 5 mg PO DAILY 01/07/25 01/07/25 History fluticasone propionate 50 1 spray intranasal DAILY 01/07/25 01/07/25 History mcg/actuation nasal spray,suspension olodaterol 2.5 mcg/actuation mist 2 inh inhalation DAILY 01/07/25 01/07/25 History for inhalation sennosides 8.6 mg tablet (senna) 17.2 mg PO BID PRN Constipation 01/07/25 01/07/25 History Allergies Allergy/AdvReac Type Severity Reaction Status Date / Time bee venom protein (honey bee) Allergy Severe Swelling, Verified 12/29/24 11:22 Shortness of Breath Penicillins Allergy Severe Swelling, Verified 12/29/24 11:22 Difficulty Breathing lidocaine Allergy Mild Rash Verified 12/29/24 11:22 gabapentin Allergy Unknown Unknown Verified 12/29/24 11:22 icosapent ethyl Allergy Unknown Unknown Verified 12/29/24 11:22 pregabalin Allergy Unknown Unknown Verified 12/29/24 11:22 cefdinir AdvReac Severe Vomiting Verified 12/29/24 11:22 hydrocodone AdvReac Intermediate Gastrointestinal Verified 12/29/24 11:22 Upset oxycodone AdvReac Intermediate Gastrointestinal Verified 12/29/24 11:22 Upset ertapenem AdvReac Mild Vomiting Verified 12/29/24 11:22 Past Med/Surg History Problem List (Updated 01/07/25 @ 19:03 by Keanu Parks MD) CHF exacerbation (Acute) Hypoxia (Acute) Chronic hyponatremia Sepsis Acute on chronic systolic CHF (congestive heart failure) Acute on chronic hypoxic respiratory failure Acid reflux Chronic constipation RLQ abdominal pain TIA (transient ischemic attack) Dizziness Acute exacerbation of chronic obstructive airways disease (Acute) Acute pneumonia (Acute) Presence of biventricular automatic cardioverter/defibrillator (AICD) [employer] - [facility] [place] [facility] Ischemic cardiomyopathy Pressure ulcer of left foot, stage 3 (Acute) Chest pain (Acute) BPH w urinary obs/LUTS (Chronic) Renal cyst (Chronic) Nephrolithiasis (Chronic) Infection due to ESBL-producing Escherichia coli Pleural effusion due to CHF (congestive heart failure) Recurrent UTI (Chronic) Acute exacerbation of CHF (congestive heart failure) (Acute) Anticoagulant long-term use Stage III pressure ulcer of buttock (Acute) Centrilobular emphysema Bilateral foot-drop Spasticity upper limbs Agent orange exposure Ulnar neuropathy of both upper extremities Cervicogenic headache Complex renal cyst Cervical radiculopathy (Acute) Cervical spondylosis without myelopathy (Acute) Idiopathic peripheral neuropathy (Acute) Elevated PSA Biliary dyskinesia (Chronic) Balance problem Medical History Acute respiratory failure Acute hypoxemic respiratory failure History of blood transfusion x3 units "quite awhile ago" per patient Diverticular disease Incidental finding on colonoscopy per patient Recurrent UTI (urinary tract infection) multiple - just completed antibiotic Nephrolithiasis History of ESBL E. coli infection EMR 09/05/24 Idiopathic peripheral neuropathy Bilateral Lower Extremities Complex renal cyst Per records Centrilobular emphysema [facility] Cervical radiculopathy Full ROM per patient Gait disturbance Walker/Wheelchair Parkinsonism [facility] [place] [facility] Agent orange exposure Opioid dependence COPD (chronic obstructive pulmonary disease) [facility] Permanent atrial fibrillation [facility] [place] [facility] Pressure ulcer of left heel, stage 4 [facility] [place] [facility] Atherogenic dyslipidemia Cardiomyopathy [facility] [place] [facility] HFrEF (heart failure with reduced ejection fraction) [facility] [place] [facility] Presence of combination internal cardiac defibrillator (ICD) and pacemaker Implanted 2010, replaced in Biventricular [employer]tr[employer] History of urinary self-catheterization self caths every other night CAD (coronary artery disease) 2010- stent x1 Follows with [facility] [place] Sleep apnea BiPap with 1.5L of O2 BPH loc w urin obs/LUTS Atrial tachycardia [facility] [place] [facility] CHF (congestive heart failure) [facility] [place] [facility] Benign essential hypertension Elevated lactic acid level Unstageable pressure ulcer of left heel [facility] [place] [facility] Intrinsic minus hand Bilateral Episode of confusion [facility] [place] [facility] Chest pain Resolved, denies at this time Peripheral arterial disease Hypertension Tremor Complex sleep apnea syndrome NYHA class 4 acute on chronic systolic heart failure [facility] [place] [facility] Legally blind Chronic back pain History of DVT of lower extremity 2010 Macular degeneration Hearing deficit Bilateral Hearing Aids - Does not wear Depression Migraine Myocardial Infarction 2010 Pulmonary embolism 1992 + 2010 after heart attack Asthma Surgical History History of cardioversion 05/2024 [facility] [place] of vasectomy Status post coronary artery stent placement x1 stent - 2010 - [facility] [place] [facility] S/P epidural steroid injection History of foot surgery Right plantar fasciitis History of open reduction and internal fixation (ORIF) procedure left foot--hardware removed History of prostate biopsy x3--precancerous, just monitoring for now History of prostate surgery 07/2016--[facility] prostate vaproization History of cystoscopy multiple History of colonoscopy with polypectomy History of esophagogastroduodenoscopy (EGD) History of right inguinal hernia repair x3 History of Khari fundoplication History of cholecystectomy History of tooth extraction Upper/Lower Partial History of eye surgery right--macular degeneration History of bilateral cataract extraction History of cardiac cath 10/2010 @ [facility]--1 stent placed Family History Son , at 46 years of age from bilateral CAP; born with 6 congenital defects including urinary tract closure/fusion x 2 with bilateral hydronephrosis, requiring repair @ [facility] ([facility]), scoliosis, pectus excavatum, and pes planus bilateral. Family history of diabetes mellitus Father , at 61 years of age from lung carcinoma in the setting of tobacco abuse. No problems noted. Mother , at 94 years of age from natural causes. No problems noted. 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 Beliefs That Will Affect Care: None marital status: Current Living Situation: Spouse Current Living Situation Comment: home with current occupational status: retired How many Children do You have: 1 How many Children do You have Comment: son , able to assist with care as needed Other Information That Helps Us Care for You: No Feels Safe at Home: Yes Safety Concerns: Feels Safe At This Time Diet: low salt and regular caffeine: Yes during the past year weight has: remained stable Physical Activity Frequency: 3-4 Times per Week Assistive Devices: Scooter/Electric Scooter, Walker and Wheelchair Physical Exam 2 Vital Signs: Vital Signs - 24 hr 01/07/25 11:58 01/07/25 12:00 01/07/25 12:00 Temperature 36.9 C Temperature Source Oral Pulse Rate 91 H Pulse Rate from Sp O2 Sensor Respiratory Rate 22 Respiratory Effort / Characteristics Spontaneous Short of Breath Respiratory Depth Normal Blood Pressure 120/70 120/70 Blood Pressure Ruma n 84 86 Blood Pressure Pos ition Lying Pulse Oximetry 86 L 86 L Oxygen Delivery Me thod Room Air Room Air Oxygen Flow Rate Sepsis Recent Feve r Within 48 Hours Yes Sepsis New/Unexpla ined Change in Men opal Status N/A Sepsis Action Take n by Nursing No Action Required 01/07/25 12:00 01/07/25 12:11 01/07/25 12:35 Temperature Temperature Source Pulse Rate 124 H 94 H Pulse Rate from Sp O2 Sensor 95 H Respiratory Rate 24 Respiratory Effort / Characteristics Respiratory Depth Blood Pressure Blood Pressure Ruma n Blood Pressure Pos ition Pulse Oximetry 89 L 93 Oxygen Delivery Me thod Nasal Cannula Oxygen Flow Rate 2 Sepsis Recent Feve r Within 48 Hours Sepsis New/Unexpla ined Change in Men opal Status Sepsis Action Take n by Nursing 01/07/25 12:48 01/07/25 13:03 01/07/25 13:36 Temperature Temperature Source Pulse Rate 95 H 94 H 95 H Pulse Rate from Sp O2 Sensor 95 H 94 H Respiratory Rate 20 20 32 H Respiratory Effort / Characteristics Respiratory Depth Blood Pressure Blood Pressure Ruma n Blood Pressure Pos ition Pulse Oximetry 94 94 Oxygen Delivery Me thod Nasal Cannula Oxygen Flow Rate 2 Sepsis Recent Feve r Within 48 Hours Sepsis New/Unexpla ined Change in Men opal Status Sepsis Action Take n by Nursing Physical Exam: Physical Exam HENT: Exam performed. - Head: Normocephalic and atraumatic. EYES: Conjunctivae and EOM are normal. Right eye exhibits no discharge. Left eye exhibits no discharge. No scleral icterus. NECK: Normal range of motion. Neck supple. No JVD present. CV: Normal rate, regular rhythm, normal heart sounds and intact distal pulses. 1+ pitting edema of the bilateral lower extremities.. Palpable radial pulses bue. PULM/CHEST: Inspiratory rales bilaterally. ABD: The abdomen is soft. There is no tenderness. NEURO: Motor and sensation grossly intact. SKIN: Skin is warm and dry. He is not diaphoretic. PSYCH: normal mood and affect. Behavior is normal. Judgment and thought content normal. Course Course 1200: The patient was evaluated in room B8. A complete history and physical exam was performed Cardiac monitoring: An order was placed for continuous cardiac monitoring. The monitor shows a rate of 90 with paced rhythm interpreted by me Patient was found to be hypoxic on room air. Supplemental oxygen was applied via nasal cannula to improve the patient's oxygen saturation. 1330: Vital signs stable on supplemental oxygen. Chest x-ray shows cardiomegaly with cephalization and bilateral pleural effusions. BNP is elevated. Patient treated with Lasix and will be admitted to the hospitalist team. Administered Medications Carvedilol (Carvedilol 3.125 Mg Tab) 3.125 mg PO BIDM TEDDY Stop: 02/06/25 16:59 Last Admin: 01/07/25 17:32 Dose: 3.125 mg Documented By: MATTHEW Finasteride (Finasteride 5 Mg Tab) 5 mg PO DAILY TEDDY Stop: 02/06/25 14:59 Last Admin: 01/07/25 17:32 Dose: 5 mg Documented By: TLCristóbal Fluticasone Propionate (Fluticasone Propionate Na Spr 16 Gm Btl) 1 sprays NA DAILY TEDDY Stop: 02/06/25 14:59 Last Admin: 01/07/25 17:33 Dose: 1 sprays Documented By: MATTHEW Furosemide (Furosemide 40 Mg/4 Ml Vial) 40 mg IV BID17 TEDDY Stop: 01/09/25 09:01 Last Admin: 01/07/25 17:33 Dose: 40 mg Documented By: MATTHEW Methylprednisolone 60 mg/ (Syringe) 0.96 mls @ 1.5 mls/min IV DAILY TEDDY Stop: 02/06/25 18:14 Last Admin: 01/07/25 18:26 Dose: 1.5 mls/min Documented By: MATTHEW Miscellaneous (Order Awaiting Action) 1 each N/A QS TEDDY Stop: 02/06/25 15:59 Last Admin: 01/07/25 17:33 Dose: Not Given Documented By: MATTHEW Oxycodone HCl (Oxycodone Hcl 10 Mg Tabcr (Oxycontin)) 10 mg PO Q12H TEDDY Stop: 01/21/25 14:29 Last Admin: 01/07/25 17:33 Dose: 10 mg Documented By: MATTHEW Pantoprazole Sodium (Pantoprazole 40 Mg Tab) 40 mg PO QAM TEDDY Stop: 01/09/25 09:01 Last Admin: 01/07/25 18:26 Dose: 40 mg Documented By: TLCristóbal Spironolactone (Spironolactone 25 Mg Tab) 25 mg PO DAILY TEDDY Stop: 02/06/25 14:29 Last Admin: 01/07/25 17:33 Dose: 25 mg Documented By: TLM Discontinued Medications Aspirin (Aspirin Chew 324 Mg) 324 mg PO NOW STA Stop: 01/07/25 12:06 Last Admin: 01/07/25 12:30 Dose: 324 mg Documented By: VASILIYK Furosemide (Furosemide 40 Mg/4 Ml Vial) 40 mg IV ONE ONE Stop: 01/07/25 13:30 Last Admin: 01/07/25 14:04 Dose: 40 mg Documented By: ben Medical Decision Making Laboratory Data Attestation: I reviewed the patient's lab results. 01/07/25 12:25 01/07/25 12:25 Lab Results 01/07/25 01/07/25 Range/Units 12: 12:28 WBC 14.40 H (4.8-10.8) K/ul RBC 4.58 L (4.70-6.10) M/uL Hgb 12.7 L (14.0-18.0) g/dl Hct 39.5 L (42.0-52.0) % MCV 86.2 (80.0-100.0) fL MCH 27.7 (25.0-34.0) pg MCHC 32.2 (32.0-36.0) g/dL RDW Std Deviation 48.9 H (36.4-46.3) fL RDW Coeff of Jerry 15.7 H (11.5-14.5) % Plt Count 360 (130-400) K/uL MPV 10.1 (9.4-12.4) fL Immature Gran % (Auto) 0.8 % Neut % (Auto) 75.6 % Lymph % (Auto) 14.8 % Jenkins % (Auto) 7.7 % Eos % (Auto) 0.8 % Baso % (Auto) 0.3 % Neut # (Auto) 10.88 H (1.40-6.50) K/uL Lymph # (Auto) 2.13 (1.20-3.40) K/uL Jenkins # (Auto) 1.11 H (0.11-0.59) K/uL Eos # (Auto) 0.12 (0.00-0.50) K/uL Baso # (Auto) 0.05 (0.00-0.20) K/uL Immature Gran # (Auto) 0.11 (0.01-0.20) K/uL PT 11.7 (9.0-12.0) Seconds INR 1.1 (0.9-1.1) APTT 31 (21-31) Seconds PTT Ratio 1.2 VBG pH 7.47 H (7.36-7.41) VBG pCO2 34 L (38-50) mmHg VBG pO2 44 mmHg VBG HCO3 25 mmol/L VBG O2 Saturation 74.8 % VBG Base Excess 1.5 mEq/L Sodium 132 L (136-145) mmol/L Potassium 4.2 (3.5-5.1) mmol/L Chloride 98 (98-107) mmol/L Carbon Dioxide 24 (21-32) mmol/L Anion Gap 10 (3-11) BUN 18 (6-23) mg/dl Creatinine 1.01 (0.6-1.4) mg/dl Est Cr Clr Drug Dosing 73.2 ml/min eGFR 75.65 BUN/Creatinine Ratio 17.8 (10-20) Glucose 124 H (70-99(Fasting)) mg/dl Calcium 8.9 (8.6-10.3) mg/dl Troponin I High Sens 19.6 (0-20) pg/ml B-Natriuretic Peptide 194 H (0-100) pg/ml Lipase 17 (11-82) U/L Procalcitonin 0.06 (0-0.5) ng/ml Adenovirus (PCR) Not Detected (NotDetected) B. pertussis DNA (PCR) Not Detected (NotDetected) B.parapertussis DNA PCR Not Detected (NotDetected) C. pneumoniae DNA (PCR) Not Detected (NotDetected) Coronavirus OC43 (PCR) Not Detected (NotDetected) Coronavirus HKU1 (PCR) Not Detected (NotDetected) Coronavirus 229E (PCR) Not Detected (NotDetected) SARS-CoV-2 (PCR) Not Detected (NotDetected) Coronavirus NL63 (PCR) Not Detected (NotDetected) Human Metapneumovir PCR Not Detected (NotDetected) Influenza Type A (PCR) Not Detected (NotDetected) Influenza Type B (PCR) Not Detected (NotDetected) M. pneumoniae (PCR) Not Detected (NotDetected) Parainfluenza 1 (PCR) Not Detected (NotDetected) Parainfluenza 2 (PCR) Not Detected (NotDetected) Parainfluenza 3 (PCR) Not Detected (NotDetected) Parainfluenza 4 (PCR) Not Detected (NotDetected) RSV (PCR) Not Detected (NotDetected) Entero/Rhino (PCR) Not Detected (NotDetected) Imaging Data Attestation: I personally reviewed and interpreted this imaging study as follows: My Impression: Chest x-ray: Chest x-ray shows cardiomegaly with cephalization and bilateral pleural effusions Radiologist's Impression: Chest X-Ray 01/07/25 12:06 XR chest 1V portable CLINICAL HISTORY: Chest pain, nonspecific COMPARISON STUDY: 12/09/2024 FINDINGS: Stable pacemaker. Stable prominent cardiomegaly with pulmonary vascular congestion. Stable hazy opacity in the lung bases with obscuration of the diaphragm, left greater than right. No pneumothorax. IMPRESSION: Stable exam with CHF and bilateral pleural effusions and lung base consolidation, left greater than right. ACT 112: Negative or not required by law. Electronically signed by: Rodríguez Roldan M.D. 01/07/2025 12:12 PM ECG Data Attestation: I personally reviewed and interpreted this ECG as follows: Interpretation: Paced rhythm with rate of 90. QRS 146 QTc 546. No ectopy. No significant change from the EKG in November 2024. [facility] Narrative 1200: The patient was evaluated in room B8. A complete history and physical exam was performed Cardiac monitoring: An order was placed for continuous cardiac monitoring. The monitor shows a rate of 90 with paced rhythm interpreted by me Patient was found to be hypoxic on room air. Supplemental oxygen was applied via nasal cannula to improve the patient's oxygen saturation. 1330: Vital signs stable on supplemental oxygen. Chest x-ray shows cardiomegaly with cephalization and bilateral pleural effusions. BNP is elevated. Patient treated with Lasix and will be admitted to the hospitalist team. Impression & Plan Hypoxia, CHF exacerbation Critical Care Time Critical Care Time: Yes Total Critical Care Time: 62 I have personally spent greater than 62 minutes of critical care time in the direct management of this patient. This includes bedside care, interpretation of diagnostic studies, and testing, discussion with consultants, patient, and family members, and other required patient management activities. This 62 minutes is in excess of all separately billable procedures. Discharge Plan Visit Data Chief Complaint: Illness Stated Complaint: FLU LIKE SX ED Provider: Keanu Parks Discharge Problem: Hypoxia, CHF exacerbation Patient Disposition: Admitted As Inpatient Condition: Serious Discharge Instructions Interventions: ED Discharge Assessment Last Done: 01/07/25 16:11
[2025-01-07] MEDS: VANCOMYCIN HCL 2,500 MG in SODIUM CHLORIDE 0.9% 500 ML IV ONE (20:37)
[2025-01-07] MEDS: DOXYCYCLINE HYCLATE 100 MG in DEXTROSE 5% MINI-B 100 ML IV SCH (20:38)
[2025-01-07] MEDS: NYSTATIN POWDER 15GM BTL EXT SCH (20:38)
[2025-01-07] MEDS: ROSUVASTATIN CALCIUM 20 MG TAB PO SCH (20:39)
[2025-01-07] MEDS: APIXABAN 5 MG TABLET PO SCH (20:39)
[2025-01-07] MEDS: ASPIRIN 81 MG ECTAB PO SCH (20:39)
[2025-01-07] MEDS: TAMSULOSIN HCL 0.4 MG CAP PO SCH (20:39)
[2025-01-07] MEDS: DOCUSATE SODIUM 100 MG CAP PO SCH (20:48)
[2025-01-07] MEDS: ARTIFICIAL TEARS OP OINT 3.5 GM TUBE OP SCH (22:15)
[2025-01-07] MEDS: ALBUT/IPRATROP 3MG/0.5MG NEB 3 ML VIAL NEB SCH (23:21)
[2025-01-08] MEDS ORDERED: Nursing to Pharmacy Communication SCH (02:45)
[2025-01-08 06:55] LABS: Hematocrit (blood only) 38.1 % (42.0-52.0); Hemoglobin 13.0 g/dl (14.0-18.0); Immature Granulocytes # (auto) 0.09 K/uL (0.01-0.20); Immature Granulocytes % (auto) 0.7 %; Mean Corpuscular Hemoglobin 29.1 pg (25.0-34.0); Mean Corpuscular Volume 85.4 fL (80.0-100.0); Platelet Count 353 K/uL (130-400); RDW Standard Deviation 47.5 fL (36.4-46.3); Red Blood Count 4.46 M/uL (4.70-6.10); White Blood Count 13.31 K/ul (4.8-10.8)
[2025-01-08 07:12] LABS: Anion Gap 10.0 (3-11); Blood Urea Nitrogen 20.0 mg/dl (6-23); Calcium 9.0 mg/dl (8.6-10.3); Carbon Dioxide 26.0 mmol/L (21-32); Chloride 98.0 mmol/L (98-107); Creatinine Clr Calc Pharmacy 83.3 ml/min; Glucose 177.0 mg/dl (70-99(Fasting)); Potassium 3.9 mmol/L (3.5-5.1); Sodium 134.0 mmol/L (136-145)
[2025-01-08] MEDS: VANCOMYCIN HCL / NSS 1,000 MG/270 ML BAG IV SCH ×2 (07:45→15:31)
[2025-01-08] MEDS: FUROSEMIDE 40 MG/4 ML VIAL IV SCH (09:00)
[2025-01-08] MEDS: CEROVITE ADV FORMULA TAB PO SCH (09:00)
--- NOTE | 2025-01-08 09:46 | Hospitalist Progress Note ---
Date of Service January 08, 2025 Assessment & Plan (1) Acute on chronic hypoxic respiratory failure: Plan: Oxygen per nasal cannula to maintain saturation greater than 90%. Wean down to usual rate as tolerated (2) Acute on chronic systolic CHF (congestive heart failure): Plan: Parenteral Lasix therapy every 12 hours and oral metolazone. Monitor intake and output. Serial chest x-ray (3) Sepsis: Plan: Ruled out. Antibiotics have been discontinued (4) Chronic hyponatremia: Plan: No intervention needed at this time. Serial labs (5) Ambulatory dysfunction: Plan: Supportive care. OT and PT assessments Plan To be determined Admission and Anticipated Discharge Date Admission Date: January 07, 2025 Subjective Alert and oriented. No acute distress. is at the bedside. Chest x-ray is consistent with acute on chronic systolic congestive heart failure with bilateral pleural effusions, left greater than right. Parenteral Lasix dosage has been uptitrated and metolazone added on a daily basis for now. This does not appear to be pneumonia and doxycycline and vancomycin have been discontinued. He normally uses oxygen only at bedtime but is currently requiring 2 L oxygen to maintain saturation of 90%. Will wean down as tolerated. Most recent cardiac echo in July of this year reveals ejection fraction of 25%. Review of Systems 2 Review of Systems: Constitutionalno fever or chills ENTno blurred vision, no double vision, no epistaxis, no sore throat Respiratorynonproductive cough. Shortness of breath at rest and with exertion. No wheezing Cardiacno palpitations, no chest pain, no syncope Sha nausea, vomiting, diarrhea, melena, hematochezia GUno urinary retention, no urinary incontinence, no dysuria, no hematuria Musculoskeletalno joint pain, no muscle tenderness Skinno bruising, no rashes, no pruritus Neurono isolated weakness, no paresthesia, no weakness Psychno depression, no anxiety Physical Exam 2 Physical Exam: General-alert and oriented x3, no fever, no chills HEENT-head atraumatic and normocephalic, pupils equal and reactive to light, extraocular muscles intact Neck-no lymphadenopathy or thyromegaly, trachea midline Chest-bibasilar diminished breath sounds and dullness. Inspiratory rales. No wheezing Cardiac -regular rate and rhythm, normal S1 and S2 Abdomen-normal bowel sounds, no hepatosplenomegaly Extremities-no cyanosis, clubbing, or edema Neuro-cranial nerves II through XII intact, motor and sensory function within normal limits, strength symmetrical, no focal deficits Psych-normal affect, normal mood Results & Data Results & Data Vital Signs (Past 12 Hours) Vital Signs Temp Pulse Pulse Resp BP Pulse Ox O2 Del Method 01/08/25 07:49 101 H 18 89 L Room Air 01/08/25 07:44 36.4 C L 89 17 111/73 89 L Room Air 01/08/25 06:45 91 H 01/08/25 04:15 36.3 C L 90 20 113/80 90 Nasal Cannula 01/08/25 00:10 89 16 96 Nasal Cannula 01/07/25 23:15 36.4 C 80 20 113/74 94 Nasal Cannula O2 Flow Rate 01/08/25 07:49 01/08/25 07:44 01/08/25 06:45 01/08/25 04:15 2 01/08/25 00:10 2 01/07/25 23:15 1 Laboratory Results 01/08/25 06:32 01/08/25 06:32 PG Care Time/CCT Total # of Minutes Spent Total Time Spent with Patient: Total time spent is greater than 50% in coordination of care (as documented) at patient's floor/unit and/or counseling patient: Coding Level of Care Code 01681 SUB INP/OBS CARE 3/50MIN Diagnoses Acute on chronic hypoxic respiratory failure J96.21 Acute on chronic systolic CHF (congestive heart failure) I50.23 Sepsis A41.9 Chronic hyponatremia E87.1 Ambulatory dysfunction R26.2
[2025-01-08 10:28] LABS: Appearance Urine Clear (Clear); Bacteria Urine Automated None Seen (None Seen); Cast Urine Automated 0-2 /lpf (0-2); Epithelial Cell Urine Auto 0-2 /hpf (0-2); Glucose Urine UA Negative (Negative); RBC Urine Automated 0-2 /hpf (0-2); WBC Urine Automated 0-5 /hpf (0-5)
[2025-01-08] MEDS: PRAMIPEXOLE 0.375 MG PO SCH (10:43)
[2025-01-08] MEDS: POLYETHYLENE (MIRALAX) 17 GM PACK PO PRN (11:45)
--- NOTE | 2025-01-08 13:17 | Urology Consultation ---
Date of Consultation January 08, 2025 Assessment & Plan (1) Incomplete bladder emptying: (2) BPH w urinary obs/LUTS: Plan 79yo male admitted with acute/chronic respiratory failure and CHF - Urology consulted for urinary retention. Hx of BPH s/p TURP, TURBT, and incision of bladder neck contracture 10/2024 w/Dr. Cordon. Had been voiding without issue since his procedure until recently. Patient c/o feelings of incomplete emptying/retention, urinary frequency, and incontinence. Was bladder scanned for PVR 250ml today. Urinalysis not concerning for infection. He is on dual therapy with Flomax and Finasteride. He is requesting a Kingston catheter due to symptoms and monitoring output. Order placed and nursing aware. Depending on his clinical course, can consider a void trial prior to discharge or we can arrange in the urology clinic. Continue management per primary team. Urology will sign-off, please contact us with any further questions/concerns. History of Present Illness Attending Physician: Saúl Dill MD History of Present Illness 79-year-old male who was admitted to medicine service with acute on chronic hypoxic respiratory failure and congestive heart failure. Urology was consulted for urinary retention. Pt seen at bedside today. present. He is being diuresed with Lasix and feels he is retaining urine. He also reports bothersome urinary frequency and incontinence. Per nursing, he was bladder scanned for PVR of 250ml earlier today. He denies UTI symptoms. No hematuria or dysuria. He is requesting a Kingston catheter. Patient is known to the urology service, follows with Dr. Cordon. Hx GLTURP Jul 2016, TUIBNC Apr 2017. Most recently underwent TURP, TURBT, incision of bladder neck contracture 10/30/2024. Reports he had been voiding without issue since his procedure until recently. He is afebrile and hemodynamically stable. Labs show leukocytosis of 13.31, hemoglobin 13, creatinine 0.88. Urinalysis showed 1+ leukocyte esterase, negative blood, negative bacteria, negative nitrite. Blood cultures are pending. He received vancomycin and doxycycline in the ED for concerns of right 4th finger cellulitis. Allergies Allergy/AdvReac Type Severity Reaction Status Date / Time bee venom protein (honey bee) Allergy Severe Swelling, Verified 12/29/24 11:22 Shortness of Breath Penicillins Allergy Severe Swelling, Verified 12/29/24 11:22 Difficulty Breathing lidocaine Allergy Mild Rash Verified 12/29/24 11:22 gabapentin Allergy Unknown Unknown Verified 12/29/24 11:22 icosapent ethyl Allergy Unknown Unknown Verified 12/29/24 11:22 pregabalin Allergy Unknown Unknown Verified 12/29/24 11:22 cefdinir AdvReac Severe Vomiting Verified 12/29/24 11:22 hydrocodone AdvReac Intermediate Gastrointestinal Verified 12/29/24 11:22 Upset oxycodone AdvReac Intermediate Gastrointestinal Verified 12/29/24 11:22 Upset ertapenem AdvReac Mild Vomiting Verified 12/29/24 11:22 Home Medications Medication Instructions Recorded Confirmed Type bupropion HCl 100 mg tablet 100 mg PO BID 12/01/18 01/07/25 History white petrolatum-mineral oil 56.8 1 applic OPB HS 12/21/18 01/07/25 History %-42.5 % eye ointment (Refresh Lacri-Lube) pantoprazole 40 mg tablet,delayed 40 mg PO BID 03/10/21 01/07/25 History release (Protonix) epinephrine 0.3 mg/0.3 mL 0.3 mg IM DIRECTED PRN 07/08/23 01/07/25 History injection, auto-injector Anaphylaxis vitamins A,C,G-btds-mjqokd 4,296 1 cap PO BID 03/27/24 01/07/25 History mcg-226 mg-90 mg capsule (PreserVision AREDS) oxycodone 10 mg tablet,crush 10 mg PO Q12H Severe Chronic Pain 06/16/24 01/07/25 History resistant,extended release 12 hr (OxyContin) spironolactone 25 mg tablet 25 mg PO DAILY #90 tabs 10/31/24 01/07/25 Rx polyethylene glycol 3350 17 gram 17 g PO DAILY PRN Constipation 11/15/24 01/07/25 History oral powder packet (Miralax) menthol 0.44 %-zinc oxide 20.6 % 1 applic topical BID Skin 11/21/24 01/07/25 History topical ointment (Calmoseptine) irritation tamsulosin 0.4 mg capsule 0.4 mg PO HS #30 caps 11/29/24 01/07/25 Rx pramipexole 0.375 mg 0.375 mg PO DAILY #30 tabs 11/30/24 01/07/25 Rx tablet,extended release 24 hr carvedilol 6.25 mg tablet 3.125 mg PO BID 12/04/24 01/07/25 History clotrimazole 1 % topical cream 1 applic topical BID 12/04/24 01/07/25 History food supplemt, lactose-reduced 1 ea PO TID 12/04/24 01/07/25 History (Ensure oral liquid) metoclopramide HCl 10 mg tablet 10 mg PO BID 12/04/24 01/07/25 History triamcinolone acetonide 0.025 % 1 applic topical DAILY 12/04/24 01/07/25 History topical cream albuterol sulfate 90 mcg/actuation 1 inh inhalation Q6H PRN shortness 12/09/24 01/07/25 Rx aerosol inhaler (Ventolin HFA) of breath or wheezing 30 days #8.5 grams ipratropium 0.5 mg-albuterol 3 mg 3 ml NEB Q6R 30 days #30 mL 12/09/24 01/07/25 Rx (2.5 mg base)/3 mL nebulization soln apixaban 5 mg tablet (Eliquis) 5 mg PO BID 12/22/24 01/07/25 History cetirizine 10 mg tablet (Zyrtec) 0 mg PO DAILY 12/22/24 01/07/25 History nystatin 100,000 unit/gram topical 1 applic topical BID PRN fungal 12/22/24 01/07/25 History ointment infection aspirin 81 mg tablet 81 mg PO DAILY 12/27/24 01/07/25 History rosuvastatin 20 mg tablet 20 mg PO DAILY 12/27/24 01/07/25 History aluminum hydroxide gel 320 mg/5 mL 320 mg PO DAILY PRN Heartburn 01/07/25 01/07/25 History oral suspension bumetanide 2 mg tablet 2 mg PO DAILY 01/07/25 01/07/25 History docusate sodium 100 mg capsule 100 mg PO BID 01/07/25 01/07/25 History finasteride 5 mg tablet 5 mg PO DAILY 01/07/25 01/07/25 History fluticasone propionate 50 1 spray intranasal DAILY 01/07/25 01/07/25 History mcg/actuation nasal spray,suspension olodaterol 2.5 mcg/actuation mist 2 inh inhalation DAILY 01/07/25 01/07/25 History for inhalation sennosides 8.6 mg tablet (senna) 17.2 mg PO BID PRN Constipation 01/07/25 01/07/25 History Patient History Medical History Acute respiratory failure Acute hypoxemic respiratory failure History of blood transfusion x3 units "quite awhile ago" per patient Diverticular disease Incidental finding on colonoscopy per patient Recurrent UTI (urinary tract infection) multiple - just completed antibiotic Nephrolithiasis History of ESBL E. coli infection EMR 09/05/24 Idiopathic peripheral neuropathy Bilateral Lower Extremities Complex renal cyst Per records Centrilobular emphysema [facility] Cervical radiculopathy Full ROM per patient Gait disturbance Walker/Wheelchair Parkinsonism [facility] Agent orange exposure Opioid dependence COPD (chronic obstructive pulmonary disease) [facility] Permanent atrial fibrillation [facility] Pressure ulcer of left heel, stage 4 [facility] Atherogenic dyslipidemia Cardiomyopathy [facility] HFrEF (heart failure with reduced ejection fraction) [facility] Presence of combination internal cardiac defibrillator (ICD) and pacemaker Implanted 2010, replaced in Biventricular [employer] History of urinary self-catheterization self caths every other night CAD (coronary artery disease) 2011- stent x1 Follows with [facility] Sleep apnea BiPap with 1.5L of O2 BPH loc w urin obs/LUTS Atrial tachycardia [facility] CHF (congestive heart failure) [facility] Benign essential hypertension Elevated lactic acid level Unstageable pressure ulcer of left heel [facility] Intrinsic minus hand Bilateral Episode of confusion [facility] Chest pain Resolved, denies at this time Peripheral arterial disease Hypertension Tremor Complex sleep apnea syndrome NYHA class 4 acute on chronic systolic heart failure [facility] Legally blind Chronic back pain History of DVT of lower extremity 2010 Macular degeneration Hearing deficit Bilateral Hearing Aids - Does not wear Depression Migraine Myocardial Infarction 2010 Pulmonary embolism 1992 + 2010 after heart attack Asthma Surgical History [place] of cardio[place] [facility] [place] of vasectomy Status post coronary artery stent placement x1 stent - 2010 - [facility] S/P epidural steroid injection History of foot surgery Right plantar fasciitis History of open reduction and internal fixation (ORIF) procedure left foot--hardware removed History of prostate biopsy x3--precancerous, just monitoring for now History of prostate surgery 07/2016--[facility] prostate vaproization History of cystoscopy multiple History of colonoscopy with polypectomy History of esophagogastroduodenoscopy (EGD) History of right inguinal hernia repair x3 History of Khari fundoplication History of cholecystectomy History of tooth extraction Upper/Lower Partial History of eye surgery right--macular degeneration History of bilateral cataract extraction History of cardiac cath 10/[address] [facility]--1 stent placed Family History Son , at 46 years of age from bilateral CAP; born with 6 congenital defects including urinary tract closure/fusion x 2 with bilateral hydronephrosis, requiring repair @ [facility] ([facility]), scoliosis, pectus excavatum, and pes planus bilateral. Family history of diabetes mellitus Father , at 61 years of age from lung carcinoma in the setting of tobacco abuse. No problems noted. Mother , at 94 years of age from natural causes. No problems noted. 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 Required: No Beliefs That Will Affect Care: None marital status: Current Living Situation: Spouse Current Living Situation Comment: home with current occupational status: retired How many Children do You have: 1 How many Children do You have Comment: son , able to assist with care as needed Feels Safe at Home: Yes Diet: low salt and regular caffeine: Yes during the past year weight has: remained stable Physical Activity Frequency: 3-4 Times per Week Assistive Devices: Scooter/Electric Scooter, Walker and Wheelchair Review of Systems Review of Systems: All systems reviewed & are unremarkable except as noted in HPI & below Physical Exam Constitutional: no acute distress Respiratory: no respiratory distress and no labored breathing Neurologic: awake Psychiatric: A+Ox3, euthymic affect Results & Data Vital Signs (Past 12 Hours) Vital Signs Temp Pulse Pulse Resp BP Pulse Ox Pulse Ox 01/08/25 12:13 95 01/08/25 11:18 36.2 C L 89 18 125/78 95 01/08/25 09:00 01/08/25 07:49 101 H 18 89 L 01/08/25 07:44 36.4 C L 89 17 111/73 89 L 01/08/25 06:45 91 H 01/08/25 04:15 36.3 C L 90 20 113/80 90 Pulse Ox Pulse Ox O2 Del Method O2 Flow Rate O2 Flow Rate O2 Flow Rate O2 Flow Rate 01/08/25 12:13 95 87 L 1 1 1 01/08/25 11:18 Nasal Cannula 1 01/08/25 09:00 Nasal Cannula 1 01/08/25 07:49 Room Air 01/08/25 07:44 Room Air 01/08/25 06:45 01/08/25 04:15 Nasal Cannula 2 PG Care Time/CCT Total # of Minutes Spent Total Time Spent with Patient: Total time spent is greater than 50% in coordination of care (as documented) at patient's floor/unit and/or counseling patient: Coding Level of Care Code 92083 INT INP/OBS CARE 2/55MIN Diagnoses Incomplete bladder emptying R33.9 BPH w urinary obs/LUTS N40.1; N13.8
[2025-01-08] MEDS ORDERED: VANCOMYCIN CONSULT ACTIVE PRN (14:27)
--- NOTE | 2025-01-08 14:49 | Pharmacy Report ---
Pharmacy PK ABX Note - Date of Service January 08, 2025 - Assessment and Plan Assessment 79 year old M receiving vancomycin for treatment of SSTI. Pertinent microbiologic data includes: blood cultures pending. Day # 2 of antimicrobial therapy. Plan Vancomycin * Loading dose: 2500 mg IV x 1 * Maintenance dose: 100 mg IV every 12 hours * Regimen is predicted to achieve target AUC/MOHAN of 400-600 mg/L.hr * Trough level ordered for: 01/09/25 @1330 Pharmacy will continue to follow and will adjust dose/frequency as necessary. Thank you. Pharmacy has transitioned to AUC monitoring for vancomycin. AUC/MOHAN is the preferred PK/PD target and is associated with decreased risk of nephrotoxicity compared to traditional trough targets.
[2025-01-08] MEDS: ACETAMINOPHEN 500 MG TAB PO SCH (20:12)
[2025-01-09 08:48] LABS: Hematocrit (blood only) 38.0 % (42.0-52.0); Hemoglobin 12.4 g/dl (14.0-18.0); Immature Granulocytes # (auto) 0.15 K/uL (0.01-0.20); Immature Granulocytes % (auto) 1.2 %; Mean Corpuscular Hemoglobin 27.6 pg (25.0-34.0); Mean Corpuscular Volume 84.4 fL (80.0-100.0); Platelet Count 374 K/uL (130-400); RDW Standard Deviation 46.4 fL (36.4-46.3); Red Blood Count 4.50 M/uL (4.70-6.10); White Blood Count 12.29 K/ul (4.8-10.8)
[2025-01-09 09:06] LABS: Anion Gap 13.0 (3-11); Calcium 9.1 mg/dl (8.6-10.3); Carbon Dioxide 27.0 mmol/L (21-32); Chloride 91.0 mmol/L (98-107); Potassium 3.0 mmol/L (3.5-5.1); Sodium 131.0 mmol/L (136-145)
[2025-01-09 09:19] LABS: Blood Urea Nitrogen 27.0 mg/dl (6-23); Creatinine Clr Calc Pharmacy 74.1 ml/min; Glucose 126.0 mg/dl (70-99(Fasting))
--- NOTE | 2025-01-09 10:14 | Orthopedic Consultation ---
Date of Service January 09, 2025 Assessment & Plan (1) Abscess of finger of right hand: Plan Case/imaging reviewed and discussed with Dr Flores * Recommend incision and drainage of abscess of right ring finger, then warm soaks, follow cultures from OR for antibiotic * Disposition: OR * Daily treatment: Physical Therapy/ Occupational Therapy per protocol * Weight bearing status: as tolerated * Pain control * Remainder care per primary team * Discussed with patient risks and benefits of surgery including pain, infectio n, bleeding, risk of anesthesia, prolonged healing time, incomplete relief of symptoms, injury to surrounding tissue and DVT. History of Present Illness Reason for Consultation: Right ring finger abscess. Requesting Physician: . Attending Physician: Saúl Dill MD . Patient is a 79 y/o male with right ring finger abscess. Pt has a history of nondiabetic ulnar neuropathy, Parkinson's and resting hand tremor. Presents to hospital with shortness of breath after using a Duoneb treatment on January 05 for the first. Pt came to the hosptial on 01/07 and was admitted. Current workup including right ring finger which was noted yesterday. Patient states he thinks he caught this finger on his wheelchair causing injury to his nail maybe a week or more ago. Patient's noted his nail looked like it as coming off but patient noted yesterday his finger was getting red and is now almost up to his elbow. Pt states that finger is sore. Orthopedics consulted for management recommendations. Allergies Allergy/AdvReac Type Severity Reaction Status Date / Time bee venom protein (honey bee) Allergy Severe Swelling, Verified 12/29/24 11:22 Shortness of Breath Penicillins Allergy Severe Swelling, Verified 12/29/24 11:22 Difficulty Breathing lidocaine Allergy Mild Rash Verified 12/29/24 11:22 gabapentin Allergy Unknown Unknown Verified 12/29/24 11:22 icosapent ethyl Allergy Unknown Unknown Verified 12/29/24 11:22 pregabalin Allergy Unknown Unknown Verified 12/29/24 11:22 cefdinir AdvReac Severe Vomiting Verified 12/29/24 11:22 hydrocodone AdvReac Intermediate Gastrointestinal Verified 12/29/24 11:22 Upset oxycodone AdvReac Intermediate Gastrointestinal Verified 12/29/24 11:22 Upset ertapenem AdvReac Mild Vomiting Verified 12/29/24 11:22 Home Medications Medication Instructions Recorded Confirmed Type bupropion HCl 100 mg tablet 100 mg PO BID 12/01/18 01/07/25 History white petrolatum-mineral oil 56.8 1 applic OPB HS 12/21/18 01/07/25 History %-42.5 % eye ointment (Refresh Lacri-Lube) pantoprazole 40 mg tablet,delayed 40 mg PO BID 03/10/21 01/07/25 History release (Protonix) epinephrine 0.3 mg/0.3 mL 0.3 mg IM DIRECTED PRN 07/08/23 01/07/25 History injection, auto-injector Anaphylaxis vitamins A,C,F-onwy-upwyqy 4,296 1 cap PO BID 03/27/24 01/07/25 History mcg-226 mg-90 mg capsule (PreserVision AREDS) oxycodone 10 mg tablet,crush 10 mg PO Q12H Severe Chronic Pain 06/16/24 01/07/25 History resistant,extended release 12 hr (OxyContin) spironolactone 25 mg tablet 25 mg PO DAILY #90 tabs 10/31/24 01/07/25 Rx polyethylene glycol 3350 17 gram 17 g PO DAILY PRN Constipation 11/15/24 01/07/25 History oral powder packet (Miralax) menthol 0.44 %-zinc oxide 20.6 % 1 applic topical BID Skin 11/21/24 01/07/25 History topical ointment (Calmoseptine) irritation tamsulosin 0.4 mg capsule 0.4 mg PO HS #30 caps 11/29/24 01/07/25 Rx pramipexole 0.375 mg 0.375 mg PO DAILY #30 tabs 11/30/24 01/07/25 Rx tablet,extended release 24 hr carvedilol 6.25 mg tablet 3.125 mg PO BID 12/04/24 01/07/25 History clotrimazole 1 % topical cream 1 applic topical BID 12/04/24 01/07/25 History food supplemt, lactose-reduced 1 ea PO TID 12/04/24 01/07/25 History (Ensure oral liquid) metoclopramide HCl 10 mg tablet 10 mg PO BID 12/04/24 01/07/25 History triamcinolone acetonide 0.025 % 1 applic topical DAILY 12/04/24 01/07/25 History topical cream albuterol sulfate 90 mcg/actuation 1 inh inhalation Q6H PRN shortness 12/09/24 01/07/25 Rx aerosol inhaler (Ventolin HFA) of breath or wheezing 30 days #8.5 grams ipratropium 0.5 mg-albuterol 3 mg 3 ml NEB Q6R 30 days #30 mL 12/09/24 01/07/25 Rx (2.5 mg base)/3 mL nebulization soln apixaban 5 mg tablet (Eliquis) 5 mg PO BID 12/22/24 01/07/25 History cetirizine 10 mg tablet (Zyrtec) 0 mg PO DAILY 12/22/24 01/07/25 History nystatin 100,000 unit/gram topical 1 applic topical BID PRN fungal 12/22/24 01/07/25 History ointment infection aspirin 81 mg tablet 81 mg PO DAILY 12/27/24 01/07/25 History rosuvastatin 20 mg tablet 20 mg PO DAILY 12/27/24 01/07/25 History aluminum hydroxide gel 320 mg/5 mL 320 mg PO DAILY PRN Heartburn 01/07/25 01/07/25 History oral suspension bumetanide 2 mg tablet 2 mg PO DAILY 01/07/25 01/07/25 History docusate sodium 100 mg capsule 100 mg PO BID 01/07/25 01/07/25 History finasteride 5 mg tablet 5 mg PO DAILY 01/07/25 01/07/25 History fluticasone propionate 50 1 spray intranasal DAILY 01/07/25 01/07/25 History mcg/actuation nasal spray,suspension olodaterol 2.5 mcg/actuation mist 2 inh inhalation DAILY 01/07/25 01/07/25 History for inhalation sennosides 8.6 mg tablet (senna) 17.2 mg PO BID PRN Constipation 01/07/25 01/07/25 History Past Med/Surg History Problem List (Updated 01/09/25 @ 10:14 by Betsy Sanchez PA-C) Abscess of finger of right hand Incomplete bladder emptying Ambulatory dysfunction Fungal dermatitis CHF exacerbation (Acute) Hypoxia (Acute) Chronic hyponatremia Sepsis Acute on chronic systolic CHF (congestive heart failure) Acute on chronic hypoxic respiratory failure Acid reflux Chronic constipation RLQ abdominal pain TIA (transient ischemic attack) Dizziness Acute exacerbation of chronic obstructive airways disease (Acute) Acute pneumonia (Acute) Presence of biventricular automatic cardioverter/defibrillator (AICD) Medtr[employer] - [facility] [place] Cardiology Ischemic cardiomyopathy Pressure ulcer of left foot, stage 3 (Acute) Chest pain (Acute) BPH w urinary obs/LUTS (Chronic) Renal cyst (Chronic) Nephrolithiasis (Chronic) Infection due to ESBL-producing Escherichia coli Pleural effusion due to CHF (congestive heart failure) Recurrent UTI (Chronic) Acute exacerbation of CHF (congestive heart failure) (Acute) Anticoagulant long-term use Stage III pressure ulcer of buttock (Acute) Centrilobular emphysema Bilateral foot-drop Spasticity upper limbs Agent orange exposure Ulnar neuropathy of both upper extremities Cervicogenic headache Complex renal cyst Cervical radiculopathy (Acute) Cervical spondylosis without myelopathy (Acute) Idiopathic peripheral neuropathy (Acute) Elevated PSA Biliary dyskinesia (Chronic) Balance problem Medical History Acute respiratory failure Acute hypoxemic respiratory failure History of blood transfusion x3 units "quite awhile ago" per patient Diverticular disease Incidental finding on colonoscopy per patient Recurrent UTI (urinary tract infection) multiple - just completed antibiotic Nephrolithiasis History of ESBL E. coli infection EMR 09/05/24 Idiopathic peripheral neuropathy Bilateral Lower Extremities Complex renal cyst Per records Centrilobular emphysema [facility] Cervical radiculopathy Full ROM per patient Gait disturbance Walker/Wheelchair Parkinsonism [facility] Neurology Agent orange exposure Opioid dependence COPD (chronic obstructive pulmonary disease) [facility] Permanent atrial fibrillation [facility] Cardiology Pressure ulcer of left heel, stage 4 [facility] Wound Clinic Atherogenic dyslipidemia Cardiomyopathy [facility] Cardiology HFrEF (heart failure with reduced ejection fraction) [facility] [place] Cardiology Presence of combination internal cardiac defibrillator (ICD) and pacemaker Implanted 2010, replaced in Biventricular [employer]tr[employer] History of urinary self-catheterization self caths every other night CAD (coronary artery disease) 2011- stent x1 Follows with [facility] cardio Sleep apnea BiPap with 1.5L of O2 BPH loc w urin obs/LUTS Atrial tachycardia [facility] [place] Cardiology CHF (congestive heart failure) [facility] [place] Cardio Benign essential hypertension Elevated lactic acid level Unstageable pressure ulcer of left heel [facility] Wound Clinic Intrinsic minus hand Bilateral Episode of confusion [facility] Neurology Chest pain Resolved, denies at this time Peripheral arterial disease Hypertension Tremor Complex sleep apnea syndrome NYHA class 4 acute on chronic systolic heart failure [facility] cardiology Legally blind Chronic back pain History of DVT of lower extremity 2010 Macular degeneration Hearing deficit Bilateral Hearing Aids - Does not wear Depression Migraine Myocardial Infarction 2010 Pulmonary embolism 1992 + 2010 after heart attack Asthma Surgical History History of cardioversion 05/2024 [facility] [place] History of vasectomy Status post coronary artery stent placement x1 stent - 2010 - [facility] [place] Cardiology S/P epidural steroid injection History of foot surgery Right plantar fasciitis History of open reduction and internal fixation (ORIF) procedure left foot--hardware removed History of prostate biopsy x3--precancerous, just monitoring for now History of prostate surgery 07/2016--[facility] prostate vaproization History of cystoscopy multiple History of colonoscopy with polypectomy History of esophagogastroduodenoscopy (EGD) History of right inguinal hernia repair x3 History of Khari fundoplication History of cholecystectomy History of tooth extraction Upper/Lower Partial History of eye surgery right--macular degeneration History of bilateral cataract extraction History of cardiac cath 10/2010 @ [facility]--1 stent placed Family History Son , at 46 years of age from bilateral CAP; born with 6 congenital defects including urinary tract closure/fusion x 2 with bilateral hydronephrosis, requiring repair @ [facility] ([facility]), scoliosis, pectus excavatum, and pes planus bilateral. Family history of diabetes mellitus Father , at 61 years of age from lung carcinoma in the setting of tobacco abuse. No problems noted. Mother , at 94 years of age from natural causes. No problems noted. Other Family history non-contributory No family history of adverse response to anesthesia Social History Smoking Status: Former smoker Tobacco Type: Cigarettes Cigarettes Per Day: 1992; Second Hand Exposure: No; Do You Dip or Chew Tobacco: No; Hx Alcohol Use: No Hx Substance Use: No Preferred Language: Irish Communication Ability: Effective Visual Impairment: Partially Limited Hearing Ability: Use of Hearing Aid Audiovisual Lead Technician Required: No Beliefs That Will Affect Care: None marital status: Current Living Situation: Spouse Current Living Situation Comment: home with current occupational status: retired How many Children do You have: 1 How many Children do You have Comment: son , able to assist with care as needed Feels Safe at Home: Yes Diet: low salt and regular caffeine: Yes during the past year weight has: remained stable Physical Activity Frequency: 3-4 Times per Week Assistive Devices: BiPap, Oxygen - Continuous, Stair Lift, Walker and Wheelchair Review of Systems All systems reviewed & are unremarkable except as noted in HPI & below. Physical Exam * General: Alert and oriented, no acute distress * Constitutional: well-developed, well-nourished. * Respiratory: Normal respiratory effort, no distress * Gastrointestinal: No tenderness to palpation, no rigidity or guarding. * Skin: No rash or lesion. * Neurologic: Grossly normal * Musculoskeletal: Bilateral hands with noted atrophy and claw deformity. Right ring finger with fluctuant abscess noted over ulnar aspect of right ring finger from distal tip extending to DIP. Finger is swollen with erythema circumferentially to PIP joint and some erythema noted to the dorsum of the hand and traveling proximally past wrist but does not extend past the elbow. Results & Data Results & Data Laboratory Results Laboratory Results - last 24 hr 01/07/25 01/08/25 01/09/25 19:57 Unknown 08:24 WBC 12.29 H RBC 4.50 L Hgb 12.4 L Hct 38.0 L MCV 84.4 MCH 27.6 MCHC 32.6 RDW Std Deviation 46.4 H RDW Coeff of Jerry 15.3 H Plt Count 374 MPV 10.1 Immature Gran % (Auto) 1.2 Neut % (Auto) 68.7 Lymph % (Auto) 20.2 [place] % (Auto) 8.1 Eos % (Auto) 1.4 Baso % (Auto) 0.4 Neut # (Auto) 8.44 H Lymph # (Auto) 2.48 [place] # (Auto) 1.00 H Eos # (Auto) 0.17 Baso # (Auto) 0.05 Immature Gran # (Auto) 0.15 Sodium 131 L Potassium 3.0 L D Chloride 91 L Carbon Dioxide 27 Anion Gap 13 H BUN 27 H Creatinine 0.99 Est Cr Clr Drug Dosing 74.1 eGFR 77.49 BUN/Creatinine Ratio 27.3 H Glucose 126 H Calcium 9.1 Urine Color Yellow Urine Appearance Clear Urine pH 7.5 Ur Specific [place] 1.005 Urine Protein Negative Urine Glucose (UA) Negative Urine Ketones Negative Urine Blood Negative Urine Nitrite Negative Urine Bilirubin Negative Urine Urobilinogen Negative Ur Leukocyte Esterase 1+ H Urine WBC (Auto) 0-5 Urine RBC (Auto) 0-2 U Hyaline Cast (Auto) 0-2 U Epithel Cells (Auto) 0-2 Urine Bacteria (Auto) None Seen Urine Comment Bld Cult ID Panel PCR Pending . Diagnostic Findings . PG Care Time/CCT Total # of Minutes Spent Total Time Spent with Patient: Total time spent is greater than 50% in coordination of care (as documented) at patient's floor/unit and/or counseling patient: Coding Level of Care Code 68340 IN/OBS CONSULT LVL 4,60M Diagnoses Abscess of finger of right hand L02.511
[2025-01-09] MEDS ORDERED: LIDOCAINE 2% 2 ML VIAL/AMP(20MG/ML) INFIL ONE (10:15)
[2025-01-09] MEDS ORDERED: PROPOFOL IV EMULSION 10 MG/ML 20 ML VIAL IV ONE (10:15)
--- NOTE | 2025-01-09 10:30 | History & Physical Bridge Note ---
Date of Service January 09, 2025 History & Physical Bridge Note I have examined the patient, reviewed the History & Physical and in the interval since the performance of the History & Physical I have noted the following changes of clinical significance: no changes noted
--- NOTE | 2025-01-09 10:39 | Anesthesiology Consultation ---
Date of Service January 09, 2025 Assessment & Plan Chart Review Chart Review: Acceptable Risk for Surgery Consults Requested none History Surgery Operation Date: 01/09/25 10:20 Proposed Procedures p Right Ring Finger Incision and Drainage - Royce Flores MD Height/Weight Height: 5 ft 11 in Weight: 103.6 kg Allergies Allergy/AdvReac Type Severity Reaction Status Date / Time bee venom protein (honey bee) Allergy Severe Swelling, Verified 12/29/24 11:22 Shortness of Breath Penicillins Allergy Severe Swelling, Verified 12/29/24 11:22 Difficulty Breathing lidocaine Allergy Mild Rash Verified 12/29/24 11:22 gabapentin Allergy Unknown Unknown Verified 12/29/24 11:22 icosapent ethyl Allergy Unknown Unknown Verified 12/29/24 11:22 pregabalin Allergy Unknown Unknown Verified 12/29/24 11:22 cefdinir AdvReac Severe Vomiting Verified 12/29/24 11:22 hydrocodone AdvReac Intermediate Gastrointestinal Verified 12/29/24 11:22 Upset oxycodone AdvReac Intermediate Gastrointestinal Verified 12/29/24 11:22 Upset ertapenem AdvReac Mild Vomiting Verified 12/29/24 11:22 Medications Home Medications Medication Instructions Recorded Confirmed Last Taken bupropion HCl 100 mg tablet 100 mg PO BID 12/01/18 01/07/25 12/04/24 white petrolatum-mineral oil 56.8 1 applic OPB HS 12/21/18 01/07/25 12/04/24 %-42.5 % eye ointment (Refresh Lacri-Lube) pantoprazole 40 mg tablet,delayed 40 mg PO BID 03/10/21 01/07/25 12/04/24 release (Protonix) epinephrine 0.3 mg/0.3 mL 0.3 mg IM DIRECTED PRN 07/08/23 01/07/25 Unknown injection, auto-injector Anaphylaxis vitamins A,C,C-bwsy-irijum 4,296 1 cap PO BID 03/27/24 01/07/25 12/04/24 mcg-226 mg-90 mg capsule (PreserVision AREDS) oxycodone 10 mg tablet,crush 10 mg PO Q12H Severe Chronic Pain 06/16/24 01/07/25 12/04/24 resistant,extended release 12 hr (OxyContin) spironolactone 25 mg tablet 25 mg PO DAILY #90 tabs 10/31/24 01/07/25 Unknown polyethylene glycol 3350 17 gram 17 g PO DAILY PRN Constipation 11/15/24 01/07/25 Unknown oral powder packet (Miralax) menthol 0.44 %-zinc oxide 20.6 % 1 applic topical BID Skin 11/21/24 01/07/25 12/04/24 topical ointment (Calmoseptine) irritation tamsulosin 0.4 mg capsule 0.4 mg PO HS #30 caps 11/29/24 01/07/25 12/03/24 pramipexole 0.375 mg 0.375 mg PO DAILY #30 tabs 11/30/24 01/07/25 Unknown tablet,extended release 24 hr carvedilol 6.25 mg tablet 3.125 mg PO BID 12/04/24 01/07/25 12/04/24 clotrimazole 1 % topical cream 1 applic topical BID 12/04/24 01/07/25 12/04/24 food supplemt, lactose-reduced 1 ea PO TID 12/04/24 01/07/25 12/04/24 (Ensure oral liquid) metoclopramide HCl 10 mg tablet 10 mg PO BID 12/04/24 01/07/25 12/04/24 triamcinolone acetonide 0.025 % 1 applic topical DAILY 12/04/24 01/07/25 Unknown topical cream albuterol sulfate 90 mcg/actuation 1 inh inhalation Q6H PRN shortness 12/09/24 01/07/25 Unknown aerosol inhaler (Ventolin HFA) of breath or wheezing 30 days #8.5 grams ipratropium 0.5 mg-albuterol 3 mg 3 ml NEB Q6R 30 days #30 mL 12/09/24 01/07/25 Unknown (2.5 mg base)/3 mL nebulization soln apixaban 5 mg tablet (Eliquis) 5 mg PO BID 12/22/24 01/07/25 Unknown cetirizine 10 mg tablet (Zyrtec) 0 mg PO DAILY 12/22/24 01/07/25 Unknown nystatin 100,000 unit/gram topical 1 applic topical BID PRN fungal 12/22/24 01/07/25 Unknown ointment infection aspirin 81 mg tablet 81 mg PO DAILY 12/27/24 01/07/25 Unknown rosuvastatin 20 mg tablet 20 mg PO DAILY 12/27/24 01/07/25 Unknown aluminum hydroxide gel 320 mg/5 mL 320 mg PO DAILY PRN Heartburn 01/07/25 01/07/25 Unknown oral suspension bumetanide 2 mg tablet 2 mg PO DAILY 01/07/25 01/07/25 Unknown docusate sodium 100 mg capsule 100 mg PO BID 01/07/25 01/07/25 Unknown finasteride 5 mg tablet 5 mg PO DAILY 01/07/25 01/07/25 Unknown fluticasone propionate 50 1 spray intranasal DAILY 01/07/25 01/07/25 Unknown mcg/actuation nasal spray,suspension olodaterol 2.5 mcg/actuation mist 2 inh inhalation DAILY 01/07/25 01/07/25 Unknown for inhalation sennosides 8.6 mg tablet (senna) 17.2 mg PO BID PRN Constipation 01/07/25 01/07/25 Unknown Active Medications Generic Name Dose Route Start Last Admin Trade Name Toney PRN Reason Stop Dose Admin Acetaminophen 1,000 mg 01/08/25 19:30 01/09/25 02:49 Acetaminophen 500 Mg Tab PO 02/07/25 19:29 1,000 mg Q8H TEDDY Administration Albuterol 3 ml 01/07/25 19:00 01/09/25 07:17 Albut/Ipratrop 3mg/0.5mg Neb 3 Ml Vial NEB 02/06/25 18:59 3 ml Q6R TEDDY Administration Protocol Apixaban 5 mg 01/07/25 21:00 01/09/25 08:28 Apixaban 5 Mg Tablet PO 02/06/25 20:59 5 mg BID TEDDY Administration Aspirin 81 mg 01/07/25 21:00 01/09/25 08:27 Aspirin 81 Mg Ectab PO 02/06/25 20:59 81 mg DAILY TEDDY Administration Bupropion HCl 100 mg 01/08/25 07:00 01/09/25 06:08 Bupropion Hcl 100 Mg Tablet PO 02/07/25 06:59 100 mg BID@0700,1200 TEDDY Administration Carvedilol 3.125 mg 01/07/25 17:00 01/09/25 08:27 Carvedilol 3.125 Mg Tab PO 02/06/25 16:59 3.125 mg BIDM TEDDY Administration Docusate Sodium 100 mg 01/07/25 21:00 01/09/25 08:33 Docusate Sodium 100 Mg Cap PO 02/06/25 20:59 100 mg BID TEDDY Administration Finasteride 5 mg 01/07/25 15:00 01/09/25 08:28 Finasteride 5 Mg Tab PO 02/06/25 14:59 5 mg DAILY TEDDY Administration Fluticasone Propionate 1 sprays 01/07/25 15:00 01/09/25 08:29 Fluticasone Propionate Na Spr 16 Gm Btl NA 02/06/25 14:59 1 sprays DAILY TEDDY Administration Furosemide 60 mg 01/08/25 07:45 01/09/25 08:22 Furosemide 40 Mg/4 Ml Vial IV 02/07/25 07:44 60 mg Q12H TEDDY Administration Vancomycin HCl 1,000 mg in 270 mls @ 200 mls/hr 01/08/25 14:30 01/09/25 04:28 Vancomycin Hcl / Nss IV 01/15/25 14:29 Infused Q12H TEDDY Infusion Protocol Metolazone 5 mg 01/08/25 09:00 01/09/25 08:27 Metolazone 5 Mg Tablet PO 02/07/25 08:59 5 mg QAM TEDDY Administration Multi-Ingredient Cream 1 appln 01/07/25 21:00 01/08/25 20:20 Artificial Tears Op Oint 3.5 Gm Tube OP 02/06/25 20:59 1 appln HS TEDDY Administration Multivitamins/Minerals 1 tab 01/08/25 09:00 01/09/25 08:29 Cerovite Adv Formula Tab PO 02/07/25 08:59 1 tab DAILY TEDDY Administration Pramipexole 0.375mg 1 each 01/08/25 10:00 01/09/25 08:29 Tab: Nfpom PO 02/07/25 09:59 1 mg Q24H TEDDY Administration Nystatin 1 appln 01/07/25 18:51 01/09/25 08:30 Nystatin Powder 15gm Btl EXT 02/06/25 18:50 1 appln BID TEDDY Administration Oxycodone HCl 10 mg 01/07/25 14:30 01/09/25 06:08 Oxycodone Hcl 10 Mg Tabcr (Oxycontin) PO 01/21/25 14:29 10 mg Q12H TEDDY Administration Pantoprazole Sodium 40 mg 01/08/25 09:00 01/09/25 08:26 Pantoprazole 40 Mg Tab PO 02/07/25 08:59 40 mg QAM TEDDY Administration Polyethylene Glycol 17 gm 01/07/25 14:13 01/08/25 11:45 Polyethylene (Miralax) 17 Gm Pack PO 02/06/25 14:12 17 gm DAILY PRN Administration Constipation Rosuvastatin Calcium 20 mg 01/07/25 21:00 01/09/25 08:30 Rosuvastatin Calcium 20 Mg Tab PO 02/06/25 20:59 20 mg DAILY TEDDY Administration Spironolactone 25 mg 01/07/25 14:30 01/09/25 08:31 Spironolactone 25 Mg Tab PO 02/06/25 14:29 25 mg DAILY TEDDY Administration Tamsulosin HCl 0.4 mg 01/07/25 21:00 01/08/25 20:21 Tamsulosin Hcl 0.4 Mg Cap PO 02/06/25 20:59 0.4 mg HS TEDDY Administration NPO Date Last Intake of Fluids: 01/09/25 Time Last Intake of Fluids: 06:30 Last Intake of Fluids Comment: 0800 sip water for meds Date Last Intake of Solids: 01/08/25 Time Last Intake of Solids: 23:00 Past Medical History Medical History Acute respiratory failure Acute hypoxemic respiratory failure History of blood transfusion x3 units "quite awhile ago" per patient Diverticular disease Incidental finding on colonoscopy per patient Recurrent UTI (urinary tract infection) multiple - just completed antibiotic Nephrolithiasis History of ESBL E. coli infection EMR 09/05/24 Idiopathic peripheral neuropathy Bilateral Lower Extremities Complex renal cyst Per records Centrilobular emphysema [facility] Cervical radiculopathy Full ROM per patient Gait disturbance Walker/Wheelchair Parkinsonism [facility] [place] Agent orange exposure Opioid dependence COPD (chronic obstructive pulmonary disease) [facility] Permanent atrial fibrillation [facility] Pressure ulcer of left heel, stage 4 [facility] Atherogenic dyslipidemia Cardiomyopathy [facility] HFrEF (heart failure with reduced ejection fraction) [facility] Presence of combination internal cardiac defibrillator (ICD) and pacemaker Implanted 2010, replaced in Biventricular [employer] History of urinary self-catheterization self caths every other night CAD (coronary artery disease) 2011- stent x1 Follows with [facility] [place] Sleep apnea BiPap with 1.5L of O2 BPH loc w urin obs/LUTS Atrial tachycardia [facility] CHF (congestive heart failure) [facility] Benign essential hypertension Elevated lactic acid level Unstageable pressure ulcer of left heel [facility] Intrinsic minus hand Bilateral Episode of confusion [facility] Chest pain Resolved, denies at this time Peripheral arterial disease Hypertension Tremor Complex sleep apnea syndrome NYHA class 4 acute on chronic systolic heart failure [facility] Legally blind Chronic back pain History of DVT of lower extremity 2010 Macular degeneration Hearing deficit Bilateral Hearing Aids - Does not wear Depression Migraine Myocardial Infarction 2010 Pulmonary embolism 1992 + 2010 after heart attack Asthma Past Family History Family History Son , at 46 years of age from bilateral CAP; born with 6 congenital defects including urinary tract closure/fusion x 2 with bilateral hydronephrosis, requiring repair @ [facility]), scoliosis, pectus excavatum, and pes planus bilateral. Family history of diabetes mellitus Father , at 61 years of age from lung carcinoma in the setting of tobacco abuse. No problems noted. Mother , at 94 years of age from natural causes. No problems noted. Other Family history non-contributory No family history of adverse response to anesthesia Past Surgical History Surgical History History of cardioversion 05/2024 [facility] [place] History of vasectomy Status post coronary artery stent placement x1 stent - 2010 - [facility] S/P epidural steroid injection History of foot surgery Right plantar fasciitis History of open reduction and internal fixation (ORIF) procedure left foot--hardware removed History of prostate biopsy x3--precancerous, just monitoring for now History of prostate surgery 07/2016--[facility] prostate vaproization History of cystoscopy multiple History of colonoscopy with polypectomy History of esophagogastroduodenoscopy (EGD) History of right inguinal hernia repair x3 History of Khari fundoplication History of cholecystectomy History of tooth extraction Upper/Lower Partial History of eye surgery right--macular degeneration History of bilateral cataract extraction History of cardiac cath 10/2010 @ [facility]--1 stent placed Social History Smoking Status: Former smoker Smoking cigarettes per day: 1992 Do You Dip or Chew Tobacco: No Hx Alcohol Use: No Hx Substance Use: No substance use type: does not use Physical Exam Vital Signs Last Vital Signs Temp 36.6 C 01/09/25 10:11 Pulse 85 01/09/25 10:11 Resp 20 01/09/25 10:11 BP 127/85 01/09/25 10:11 Pulse Ox 95 01/09/25 10:11 O2 Del Method Nasal Cannula 01/09/25 10:11 O2 Flow Rate 1 01/09/25 08:19 Testing Laboratory Results 01/09/25 08:24 01/09/25 08:24 PT 11.7 Seconds (9.0-12.0) 01/07/25 12:25 INR 1.1 (0.9-1.1) 01/07/25 12:25 APTT 31 Seconds (21-31) 01/07/25 12:25 Urine Color Yellow 01/08/25 Unknown Urine Appearance Clear (Clear) 01/08/25 Unknown Urine pH 7.5 (4.5-7.5) 01/08/25 Unknown Ur Specific [place] 1.005 (1.000-1.030) 01/08/25 Unknown Urine Protein Negative (Negative) 01/08/25 Unknown Urine Glucose (UA) Negative (Negative) 01/08/25 Unknown Urine Ketones Negative (Negative) 01/08/25 Unknown Urine Nitrite Negative (Negative) 01/08/25 Unknown Ur Leukocyte Esterase 1+ (Negative) H 01/08/25 Unknown Urine WBC (Auto) 0-5 /hpf (0-5) 01/08/25 Unknown Urine RBC (Auto) 0-2 /hpf (0-2) 01/08/25 Unknown U Hyaline Cast (Auto) 0-2 /lpf (0-2) 01/08/25 Unknown U Epithel Cells (Auto) 0-2 /hpf (0-2) 01/08/25 Unknown Urine Bacteria (Auto) None Seen (None Seen) 01/08/25 Unknown 01/07/25 19:57 Aerobic Blood Culture - Preliminary Blood No growth in Aerobic bottle after 24 hours. Anaerobic Blood Culture - Final 01/07/25 19:57 Aerobic Blood Culture - Preliminary Blood No growth in Aerobic bottle after 24 hours. Anaerobic Blood Culture - Final
[2025-01-09 10:49] LABS: A calco-baum cmplx NotReported Not Detected (NotDetected); Bact fragilis Not Reported Not Detected (NotDetected); Blood Culture Id Panel PCR Panel Negative (NotDetected); C auris Not Reported Not Detected (NotDetected); Calbicans Not Reported Not Detected (NotDetected); Candida glabrata Not Reported Not Detected (NotDetected); Candida krusei Not Reported Not Detected (NotDetected); Cneoformans/gatti Not Reported Not Detected (NotDetected); Cparapsilosis Not Reported Not Detected (NotDetected); Ctropicalis Not Reported Not Detected (NotDetected); E cloacae compx Not Reported Not Detected (NotDetected); Efaecalis Not Reported Not Detected (NotDetected); Efaecium Not Reported Not Detected (NotDetected); Enterobacterales Not Reported Not Detected (NotDetected); Escherichia coli Not Reported Not Detected (NotDetected); H influenzae Not Reported Not Detected (NotDetected); K aerogenes Not Reported Not Detected (NotDetected); Koxytoca Not Reported Not Detected (NotDetected); Kpneumoniae grp Not Reported Not Detected (NotDetected); Lmonocyt Not Reported Not Detected (NotDetected); N meningitidis Not Reported Not Detected (NotDetected); P aeruginosa Not Reported Not Detected (NotDetected); Proteus spp Not Reported Not Detected (NotDetected); Salmonella spp Not Reported Not Detected (NotDetected); Staph lugdunensis Not Reported Not Detected (NotDetected); Staph spp. Not Reported Not Detected (NotDetected); Staphaureus Not Reported Not Detected (NotDetected); Staphepi Not Reported Not Detected (NotDetected); Stenmaltophilia Not Reported Not Detected (NotDetected); Strep agal(GrpB) Not Reported Not Detected (NotDetected); Strep pneum Not Reported Not Detected (NotDetected); Strep pyog (GrpA) Not Reported Not Detected (NotDetected); Strep spp Not Reported Not Detected (NotDetected)
[2025-01-09] MEDS ORDERED: KETAMINE HCL 10MG/ML SYR ONE (10:50)
[2025-01-09] MEDS: LIDOCAINE 1% LOCAL 20 ML VIAL ONE (10:54)
[2025-01-09] MEDS: BUPIVACAINE 0.5 % 5 MG/1 ML MPF 30ML VIAL ONE (10:54)
--- NOTE | 2025-01-09 11:39 | Operative Report ---
PG Post Operative Report Pre & Post Diagnosis Operation Date: 01/09/25 10:20 Pre-Op Diagnosis: Abscess of finger of right hand-felon and paronychia infection Post-Op Diagnosis: Abscess of finger of right hand-felon and paronychia infection I identified the patient and participated in the time-out.: Yes Procedure Operation Date: 01/09/25 10:20 Actual Procedures p Right Ring Finger Incision and Drainage(Right) - Royce Flores MD Surgeon Royce Flores MD Museum Educator Gwyn Sanchez PA-C Estimated Blood Loss 5 Findings Consistent with Post-Op Diagnosis Specimens Fluid culture sent for Gram stain, aerobic, anaerobic culture Anesthesia Type Local Complications none Disposition Accompanied Patient To Recovery: No Indications Patient is a 79-year-old gent with multiple medical comorbidities who was admitted with the respiratory issues and heart failure. He had recently injured his finger on something. Over time he has developed increased pain discomfort swelling and obvious abscess to the tip of the ring finger on the right side. Patient indicated for irrigation debridement. Description of Procedure The patient was taken the op room, identified, placed on the operative table in supine position. All contact areas were appropriately padded. He has been receiving IV antibiotics. Right forearm tourniquet was placed. Some IV sedation was provided. 15 cc of a 50-50 combination of half percent Marcaine and 2% lidocaine were then injected in the hand as a digital block. The right hand was then prepped and draped in usual sterile fashion. The right hand was elevated but not exsanguinated. An incision was made on the ulnar side of the ring finger. Sharp dissection was carried out. Upon entering the finger there was obvious pus pocket. Debrided the loose skin. We did take a culture of this. I then opened up the entire area. He did appear to have viable tissue. We had to remove the nail as the infection tracked around the paronychia area as well as the nail. We left the nail fold open. We then irrigated the wound extensively. I debrided of all necrotic tissue. The tourniquet was then let down for return time of 11 minutes. Once again we irri gated extensively till there was no pus remaining. I then packed the nail fold with some Xeroform and placed Xeroform around the incision site. A sterile bandage was applied. The patient was then transferred to the recovery room in stable condition. Patient tolerated procedure well no complications. Gwyn Sanchez, my physician therapeutic assistant, was present for the entire procedure. His assistance was required for proper patient positioning, prepping and draping, surgical exposure, retraction, perform the technical details of the operation, placement of postoperative bandage. I attest to the content of the Intraoperative Record and any orders documented therein. Any exceptions are noted below.
--- NOTE | 2025-01-09 11:41 | Anesthesiology Progress Note ---
Date of Service January 09, 2025 Anesthesia Post Procedure Vital Signs Vital Signs: Temp Pulse Pulse Resp BP BP Pulse Ox 01/09/25 11:25 01/09/25 10:11 36.6 C 85 20 127/85 95 01/09/25 08:19 36.4 C L 88 16 115/73 94 01/09/25 07:17 60 16 96 01/09/25 02:59 87 20 126/78 94 01/09/25 02:42 78 16 97 01/08/25 22:33 86 18 119/79 95 01/08/25 20:20 01/08/25 20:01 84 16 95 01/08/25 19:00 36.4 C L 93 H 110/73 92 01/08/25 16:39 01/08/25 14:39 36.6 C 91 H 18 113/75 93 01/08/25 13:03 93 H 01/08/25 12:13 Pulse Ox Pulse Ox Pulse Ox O2 Del Method O2 Flow Rate O2 Flow Rate O2 Flow Rate 01/09/25 11:25 Room Air 01/09/25 10:11 Nasal Cannula 01/09/25 08:19 Nasal Cannula 1 01/09/25 07:17 Nasal Cannula 2 01/09/25 02:59 BiPAP 1 01/09/25 02:42 BiPAP 2 01/08/25 22:33 BiPAP 2 01/08/25 20:20 Nasal Cannula 2 01/08/25 20:01 Nasal Cannula 1 01/08/25 19:00 Room Air 01/08/25 16:39 Nasal Cannula 2 01/08/25 14:39 Nasal Cannula 1 01/08/25 13:03 01/08/25 12:13 95 95 87 L 1 1 O2 Flow Rate 01/09/25 11:25 01/09/25 10:11 01/09/25 08:19 01/09/25 07:17 01/09/25 02:59 01/09/25 02:42 01/08/25 22:33 01/08/25 20:20 01/08/25 20:01 01/08/25 19:00 01/08/25 16:39 01/08/25 14:39 01/08/25 13:03 01/08/25 12:13 1 Pain Intensity Bilateral Hand: Pain Intensity: 5 Transfer of Care Handoff Completed per policy Notes Mental Status: alert / awake / arousable and participated in evaluation Patient Amnestic to Procedure: Yes Nausea / Vomiting: adequately controlled Pain: adequately controlled Airway Patency, RR, SpO2: stable & adequate BP & HR: stable & adequate Hydration State: stable & adequate Anesthetic Complications: no major complications apparent
[2025-01-09] MEDS: POTASSIUM CHLORIDE CRTAB 20 MEQ TABCR PO SCH (12:26)
[2025-01-09] MEDS: POTASSIUM CHLORIDE / WTR 10 MEQ/100 ML PLCT IV STA (12:30)
[2025-01-09] MEDS: VANCOMYCIN LEVEL ONE (12:33)
--- NOTE | 2025-01-09 14:43 | Pharmacy Report ---
Pharmacy PK ABX Note - Date of Service January 09, 2025 - Assessment and Plan Assessment 79 year old M receiving vancomycin for treatment of SSTI. Pertinent microbiologic data includes: GPC in clusters 1/4 bottles so far. [facility] didn't identify any organisms on their panel. Await final culture. R ring finger gram stain and culture pending. Day # 3 of antimicrobial therapy. Plan Vancomycin * Previous maintenance dose: 1000 mg IV every 12 hours * Random level 01/09 @1200 = 18.1 * Slightly supratherapeutic AUC/MOHNA * New maintenance dose: 750 mg IV every 12 hours * New regimen is predicted to achieve target AUC/MOHAN of 400-600 mg/L.hr * Trough level ordered for: 01/12/25 @1200 Pharmacy will continue to follow and will adjust dose/frequency as necessary. Thank you. Pharmacy has transitioned to AUC monitoring for vancomycin. AUC/MOHAN is the preferred PK/PD target and is associated with decreased risk of nephrotoxicity compared to traditional trough targets.
--- NOTE | 2025-01-09 15:58 | Hospitalist Progress Note ---
Date of Service January 09, 2025 Assessment & Plan (1) Acute on chronic hypoxic respiratory failure: Plan: Oxygen per nasal cannula to maintain saturation greater than 90%. He is now only requiring 1 L of oxygen per nasal cannula. Wean off as tolerated (2) Acute on chronic systolic CHF (congestive heart failure): Plan: Good diuretic response with metolazone and parenteral Lasix. Monitor urine output. Repeat chest x-ray again tomorrow, January 10. Known ejection fraction of 25% (3) Sepsis: Plan: Present on admission. Due to cellulitis and abscess of the right fourth ring finger. He remains on intravenous vancomycin (4) Chronic hyponatremia: Plan: No intervention needed at this time. Serial labs (5) Ambulatory dysfunction: Plan: Supportive care. OT and PT assessments (6) Hypokalemia: Plan: Due to Lasix diuresis. Oral replacement. Serial labs Plan To be determined Admission and Anticipated Discharge Date Admission Date: January 07, 2025 Subjective The patient was seen after the incision and drainage procedure was completed on the right fourth finger. He is alert and oriented in no distress. is at the bedside. Significant diuresis obtained with parenteral Lasix and metolazone. He is only requiring 1 L of oxygen at this time. Potassium is low from the diuresis and oral potassium ordered. Will repeat chest x-ray again tomorrow, January 10. 1 of 4 blood culture bottles obtained on January 07 is positive for gram-positive cocci. Hopefully this is only a contaminant. He remains on intravenous vancomycin. [place] catheter remains in place per urology recommendation. Review of Systems 2 Review of Systems: Constitutionalno fever or chills ENTno blurred vision, no double vision, no epistaxis, no sore throat Respiratorynonproductive cough. Shortness of breath at rest and with exertion. No wheezing Cardiacno palpitations, no chest pain, no syncope Sha nausea, vomiting, diarrhea, melena, hematochezia GUno urinary retention, no urinary incontinence, no dysuria, no hematuria Musculoskeletalno joint pain, no muscle tenderness Skinno bruising, no rashes, no pruritus Neurono isolated weakness, no paresthesia, no weakness Psychno depression, no anxiety Physical Exam 2 Physical Exam: General-alert and oriented x3, no fever, no chills HEENT-head atraumatic and normocephalic, pupils equal and reactive to light, extraocular muscles intact Neck-no lymphadenopathy or thyromegaly, trachea midline Chest-bibasilar diminished breath sounds and dullness has lessened. Inspiratory rales have also lessened. No wheezing Cardiac -regular rate and rhythm, normal S1 and S2 Abdomen-normal bowel sounds, no hepatosplenomegaly Extremities-no cyanosis, clubbing, or edema. Right fourth finger is heavily bandaged Neuro-cranial nerves II through XII intact, motor and sensory function within normal limits, strength symmetrical, no focal deficits Psych-normal affect, normal mood Results & Data Results & Data Vital Signs (Past 12 Hours) Vital Signs Temp Pulse Pulse Resp BP BP Pulse Ox 01/09/25 14:56 36.6 C 95 H 12 129/84 94 01/09/25 13:39 90 18 93 01/09/25 13:30 36.3 C L 85 12 137/85 93 01/09/25 13:02 36.3 C L 81 12 112/75 93 01/09/25 12:45 36.3 C L 92 H 12 133/87 93 01/09/25 12:31 36.4 C L 92 H 12 133/76 93 01/09/25 12:15 36.3 C L 91 H 12 110/76 94 01/09/25 11:50 90 25 H 134/84 93 01/09/25 11:40 36.4 C L 90 14 129/83 96 01/09/25 11:33 36.2 C L 92 H 14 142/81 H 96 01/09/25 11:25 01/09/25 10:11 36.6 C 85 20 127/85 95 01/09/25 08:19 36.4 C L 88 16 115/73 94 01/09/25 07:17 60 16 96 O2 Del Method O2 Flow Rate 01/09/25 14:56 Nasal Cannula 3.5 01/09/25 13:39 Nasal Cannula 2 01/09/25 13:30 Room Air 01/09/25 13:02 Nasal Cannula 2 01/09/25 12:45 Nasal Cannula 2 01/09/25 12:31 Room Air, Nasal Cannula 2 01/09/25 12:15 Nasal Cannula 2 01/09/25 11:50 Nasal Cannula 2 01/09/25 11:40 Oxymask 5 01/09/25 11:33 Oxymask 10 01/09/25 11:25 Room Air 01/09/25 10:11 Nasal Cannula 01/09/25 08:19 Nasal Cannula 1 01/09/25 07:17 Nasal Cannula 2 Laboratory Results 01/09/25 08:24 01/09/25 08:24 PG Care Time/CCT Total # of Minutes Spent Total Time Spent with Patient: Total time spent is greater than 50% in coordination of care (as documented) at patient's floor/unit and/or counseling patient: Coding Level of Care Code 76962 SUB INP/OBS CARE 3/50MIN Diagnoses Acute on chronic hypoxic respiratory failure J96.21 Acute on chronic systolic CHF (congestive heart failure) I50.23 Sepsis A41.9 Chronic hyponatremia E87.1 Ambulatory dysfunction R26.2 Hypokalemia E87.6
[2025-01-09] MEDS: PROCHLORPERAZINE 5 MG in SYRINGE 4 ML IV ONE (23:14)
[2025-01-10] MEDS: VANCOMYCIN 750 MG in SODIUM CHLORIDE 0.9% 250 ML IV SCH (02:05)
[2025-01-10 07:02] LABS: Hematocrit (blood only) 39.8 % (42.0-52.0); Hemoglobin 13.6 g/dl (14.0-18.0); Immature Granulocytes # (auto) 0.15 K/uL (0.01-0.20); Immature Granulocytes % (auto) 1.6 %; Mean Corpuscular Hemoglobin 28.8 pg (25.0-34.0); Mean Corpuscular Volume 84.1 fL (80.0-100.0); Platelet Count 406 K/uL (130-400); RDW Standard Deviation 45.8 fL (36.4-46.3); Red Blood Count 4.73 M/uL (4.70-6.10); White Blood Count 9.60 K/ul (4.8-10.8)
[2025-01-10 07:22] LABS: Anion Gap 12.0 (3-11); Blood Urea Nitrogen 27.0 mg/dl (6-23); Calcium 9.3 mg/dl (8.6-10.3); Carbon Dioxide 31.0 mmol/L (21-32); Chloride 91.0 mmol/L (98-107); Creatinine Clr Calc Pharmacy 73.9 ml/min; Glucose 131.0 mg/dl (70-99(Fasting)); Potassium 3.1 mmol/L (3.5-5.1); Sodium 134.0 mmol/L (136-145)
--- NOTE | 2025-01-10 07:52 | XRay Report ---
EXAM: XR chest 1V portable CLINICAL HISTORY: Congestive Heart Failure. TECHNIQUE: An X-ray image of the chest was obtained in AP projection. COMPARISON: The prior X-ray dated 12/09/2024 was used for comparison. FINDINGS: A left cardiac pacemaker is in situ. Pulmonary Parenchyma: There is unchanged haziness in the bilateral lower zones. No pulmonary nodules are identified. There are unchanged mild right and moderate left pleural effusions. Heart and Mediastinum: Cardiomegaly is present. There is no mediastinal widening or mass. No hilar or mediastinal lymphadenopathy is seen. Bony Thorax: The bony thorax appears intact, without fracture or deformity. Soft Tissues: The soft tissues overlying the chest wall are unremarkable. IMPRESSION: A left cardiac pacemaker is in situ. There is unchanged haziness in the bilateral lower zones. There are unchanged mild right and moderate left pleural effusions. Cardiomegaly is present. No significant interval changes are identified. Electronically signed by Kenrick Ramirez 01-10-2025 07:52 AM
--- NOTE | 2025-01-10 09:07 | Orthopedic Progress Note ---
Date of Service January 10, 2025 Assessment & Plan (1) Abscess of finger of right hand: * Case/imaging reviewed and discussed with Dr Flores * Recommend warm soak with 1/3 warm saline, 1/3 hydrogen peroxide and 1/3 betadine to finger. A xeroform, gauze and coban dressing. * Continue IV antibiotics and monitor culture for sensitivity to adjust as needed. * Disposition: TBD * Daily treatment: Physical Therapy/ Occupational Therapy per protocol * Weight bearing status: as tolerated * Pain control * Remainder care per primary team * Follow-up with orthopedics in 2 weeks after discharge from hospital. (2) Status post incision and drainage: Subjective .Active Problems: S/p Right fourth finger I&D POD 1 79 y/o male s/p right 4th finger incision and drainage yesterday with Dr. Flores. Doing well overall, pain managed and improved function. Denies fever/chills, chest pain/SOB, nausea/vomiting. Otherwise no complaints. Review of Systems All systems reviewed & are unremarkable except as noted in HPI & below. Physical Exam * General: Alert and oriented, no acute distress * Constitutional: well-developed, well-nourished. * Respiratory: Normal respiratory effort, no distress * Gastrointestinal: No tenderness to palpation, no rigidity or guarding. * Skin: No rash or lesion. * Neurologic: Grossly normal * Musculoskeletal: Right 4th finger nail has been removed and abscess unroofed and evacuated. Some slight bloody drainage is noted. Swelling in digit has improved. Erythema is still noted around the digit to the base and some erythema streaking on the dorsum of the hand. 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 Otherwise neurovascularly intact. Results & Data Results & Data Laboratory Results Laboratory Results - last 24 hr 01/07/25 01/09/25 01/09/25 19:57 08:24 12:52 WBC RBC Hgb Hct MCV MCH MCHC RDW Std Deviation RDW Coeff of Jerry Plt Count MPV Immature Gran % (Auto) Neut % (Auto) Lymph % (Auto) [place] % (Auto) Eos % (Auto) Baso % (Auto) Neut # (Auto) Lymph # (Auto) [place] # (Auto) Eos # (Auto) Baso # (Auto) Immature Gran # (Auto) Sodium 131 L Potassium 3.0 L D Chloride 91 L Carbon Dioxide 27 Anion Gap 13 H BUN 27 H Creatinine 0.99 Est Cr Clr Drug Dosing 74.1 eGFR 77.49 BUN/Creatinine Ratio 27.3 H Glucose 126 H Calcium 9.1 Random Vancomycin 18.1 Bld Cult ID Panel PCR PCR Panel Negative 01/10/25 06:29 WBC 9.60 RBC 4.73 Hgb 13.6 L Hct 39.8 L MCV 84.1 MCH 28.8 MCHC 34.2 RDW Std Deviation 45.8 RDW Coeff of Jerry 15.2 H Plt Count 406 H MPV 10.1 Immature Gran % (Auto) 1.6 Neut % (Auto) 65.7 Lymph % (Auto) 20.6 [place] % (Auto) 10.1 Eos % (Auto) 1.7 Baso % (Auto) 0.3 Neut # (Auto) 6.31 Lymph # (Auto) 1.98 [place] # (Auto) 0.97 H Eos # (Auto) 0.16 Baso # (Auto) 0.03 Immature Gran # (Auto) 0.15 Sodium 134 L Potassium 3.1 L Chloride 91 L Carbon Dioxide 31 Anion Gap 12 H BUN 27 H Creatinine 0.99 Est Cr Clr Drug Dosing 73.9 eGFR 77.49 BUN/Creatinine Ratio 27.3 H Glucose 131 H Calcium 9.3 Random Vancomycin Bld Cult ID Panel PCR . Diagnostic Findings Chest X-Ray 01/10/25 07:30 EXAM: XR chest 1V portable CLINICAL HISTORY: Congestive Heart Failure. TECHNIQUE: An X-ray image of the chest was obtained in AP projection. COMPARISON: The prior X-ray dated 12/09/2024 was used for comparison. FINDINGS: A left cardiac pacemaker is in situ. Pulmonary Parenchyma: There is unchanged haziness in the bilateral lower zones. No pulmonary nodules are identified. There are unchanged mild right and moderate left pleural effusions. Heart and Mediastinum: Cardiomegaly is present. There is no mediastinal widening or mass. No hilar or mediastinal lymphadenopathy is seen. Bony Thorax: The bony thorax appears intact, without fracture or deformity. Soft Tissues: The soft tissues overlying the chest wall are unremarkable. IMPRESSION: A left cardiac pacemaker is in situ. There is unchanged haziness in the bilateral lower zones. There are unchanged mild right and moderate left pleural effusions. Cardiomegaly is present. No significant interval changes are identified. Electronically signed by Kenrick Ramirez 01-10-2025 07:52 AM . PG Care Time/CCT Total # of Minutes Spent Total Time Spent with Patient: Total time spent is greater than 50% in coordination of care (as documented) at patient's floor/unit and/or counseling patient: Coding Level of Care Code 19624 Post Operative Follow-Up Diagnoses Abscess of finger of right hand L02.511 Status post incision and drainage Z98.890
[2025-01-10] MEDS: POTASSIUM CHLORIDE / WTR 10 MEQ/100 ML PLCT IV SCH (10:24)
--- NOTE | 2025-01-10 11:51 | Electrocardiogram Report ---
Test Reason : Blood Pressure : */* mmHG Vent. Rate : 97 BPM Atrial Rate : 97 BPM P-R Int : * ms QRS Dur : 146 ms QT Int : 430 ms P-R-T Axes : * 135 56 degrees QTcB Int : 546 ms AV dual-paced rhythm Abnormal ECG When compared with ECG of 05-Dec-2024 08:57, Vent. rate has increased by 9 bpm Confirmed by Nav Abreu ([id number]) on 01/10/2025 11:50:58 AM Referred By: REFERRED SELF Confirmed By: Nav Abreu
--- NOTE | 2025-01-10 12:59 | Hospitalist Progress Note ---
Date of Service January 10, 2025 Assessment & Plan (1) Acute on chronic hypoxic respiratory failure: Plan: Oxygen per nasal cannula to maintain saturation greater than 90%. He is on low- flow oxygen. (2) Acute on chronic systolic CHF (congestive heart failure): Plan: Good diuretic response with metolazone and parenteral Lasix. Monitor urine output. Chest x-ray done today, January 10, looks better. Known ejection fraction of 25% (3) Sepsis: Plan: Present on admission. Due to cellulitis and abscess of the right fourth ring finger. He remains on intravenous vancomycin . Positive blood culture from January 07 is thought to be a contaminant (4) Chronic hyponatremia: Plan: No intervention needed at this time. Serial labs (5) Ambulatory dysfunction: Plan: Supportive care. OT and PT assessments have been completed. (6) Hypokalemia: Plan: Due to Lasix diuresis. Potassium still remains low. Continue oral replacement. Serial labs Plan Hopeful discharge to home with home health services, [place] catheter, oral antibiotic tomorrowJanuary 11 Admission and Anticipated Discharge Date Admission Date: January 07, 2025 Subjective Alert and oriented. No distress. He needed additional pain control measures for postoperative right fourth finger discomfort. Tramadol was administered and seem to be effective. 1 of 4 blood culture bottles from January 07 positive for micrococcus which probably is a contaminant. He is currently on vancomycin. Potassium still remains low at 3.1. His chest x-ray done today, January 10, looks better overall with continued left greater than right pleural effusions which hopefully will eventually resolve. Hopefully he can go home with home health services and the [place] catheter tomorrow, January 11 on an oral antibiotic. Review of Systems 2 Review of Systems: Constitutionalno fever or chills ENTno blurred vision, no double vision, no epistaxis, no sore throat Respiratorynonproductive cough. Shortness of breath at rest and with exertion. No wheezing Cardiacno palpitations, no chest pain, no syncope Sha nausea, vomiting, diarrhea, melena, hematochezia GUno urinary retention, no urinary incontinence, no dysuria, no hematuria Musculoskeletalpostoperative right fourth finger discomfort. No muscle tenderness Skinno bruising, no rashes, no pruritus Neurono isolated weakness, no paresthesia, no weakness Psychno depression, no anxiety Physical Exam 2 Physical Exam: General-alert and oriented x3, no fever, no chills HEENT-head atraumatic and normocephalic, pupils equal and reactive to light, extraocular muscles intact Neck-no lymphadenopathy or thyromegaly, trachea midline Chest-bibasilar diminished breath sounds and dullness has lessened. Inspiratory rales have also lessened. No wheezing Cardiac -regular rate and rhythm, normal S1 and S2 Abdomen-normal bowel sounds, no hepatosplenomegaly Extremities-no cyanosis, clubbing, or edema. Right fourth finger is heavily bandaged Neuro-cranial nerves II through XII intact, motor and sensory function within normal limits, strength symmetrical, no focal deficits Psych-normal affect, normal mood Results & Data Results & Data Vital Signs (Past 12 Hours) Vital Signs Temp Pulse Pulse Resp BP BP Pulse Ox 01/10/25 12:14 94 01/10/25 11:44 36.2 C L 96 H 16 108/71 89 L 01/10/25 08:39 36.5 C 88 16 136/88 98 01/10/25 08:00 91 H 01/10/25 07:43 91 H 18 94 01/10/25 03:36 36.5 C 90 18 114/76 94 O2 Del Method O2 Flow Rate 01/10/25 12:14 Room Air 01/10/25 11:44 Room Air 01/10/25 08:39 Nasal Cannula 2 01/10/25 08:00 01/10/25 07:43 Nasal Cannula 2 01/10/25 03:36 Nasal Cannula 2 Laboratory Results 01/10/25 06:29 01/10/25 06:29 PG Care Time/CCT Total # of Minutes Spent Total Time Spent with Patient: Total time spent is greater than 50% in coordination of care (as documented) at patient's floor/unit and/or counseling patient: Coding Level of Care Code 68756 SUB INP/OBS CARE 3/50MIN Diagnoses Acute on chronic hypoxic respiratory failure J96.21 Acute on chronic systolic CHF (congestive heart failure) I50.23 Sepsis A41.9 Chronic hyponatremia E87.1 Ambulatory dysfunction R26.2 Hypokalemia E87.6
[2025-01-10] MEDS: ONDANSETRON INJ 2 MG/ML 2 ML VIAL IV STA (15:57)
[2025-01-10 19:40] VITALS: RESP 18
[2025-01-10] MEDS: SENNA 8.6 MG TAB PO PRN (20:12)
[2025-01-11] MEDS: ONDANSETRON INJ 2 MG/ML 2 ML VIAL IV PRN (02:19)
[2025-01-11 07:27] LABS: Hematocrit (blood only) 39.8 % (42.0-52.0); Hemoglobin 13.5 g/dl (14.0-18.0); Immature Granulocytes # (auto) 0.19 K/uL (0.01-0.20); Immature Granulocytes % (auto) 1.5 %; Mean Corpuscular Hemoglobin 28.7 pg (25.0-34.0); Mean Corpuscular Volume 84.7 fL (80.0-100.0); Platelet Count 431 K/uL (130-400); RDW Standard Deviation 46.2 fL (36.4-46.3); Red Blood Count 4.70 M/uL (4.70-6.10); White Blood Count 13.06 K/ul (4.8-10.8)
[2025-01-11 07:49] LABS: Anion Gap 10.0 (3-11); Blood Urea Nitrogen 31.0 mg/dl (6-23); Calcium 9.6 mg/dl (8.6-10.3); Carbon Dioxide 34.0 mmol/L (21-32); Chloride 89.0 mmol/L (98-107); Creatinine Clr Calc Pharmacy 71.6 ml/min; Glucose 134.0 mg/dl (70-99(Fasting)); Potassium 3.0 mmol/L (3.5-5.1); Sodium 133.0 mmol/L (136-145)
[2025-01-11 07:53] VITALS: O2SAT 92
--- NOTE | 2025-01-11 08:37 | Orthopedic Progress Note ---
Date of Service January 11, 2025 Assessment & Plan (1) Status post incision and drainage: (2) Abscess of finger of right hand: * Case/imaging reviewed and discussed with Dr Flores * Recommend warm soak with 1/3 warm saline, 1/3 hydrogen peroxide and 1/3 betadine to finger. A xeroform, gauze and coban dressing. * Continue IV antibiotics and monitor culture for sensitivity to adjust as needed. May switch to PO antibiotic upon discharge. * Disposition: Home with home health * Daily treatment: Physical Therapy/ Occupational Therapy per protocol * Weight bearing status: as tolerated * Pain control * Remainder care per primary team * Follow-up with orthopedics in 2 weeks after discharge from hospital. Pt is stable for discharge from an orthopedic standpoint. Subjective Active Problems: S/p right ring finger I&D on 01/09/25 POD 2 79 y/o male s/p right ring finger abscess incision and drainage. Doing well overall, pain managed and improved function. Denies fever/chills, chest pain/SOB, nausea/vomiting. Otherwise no complaints. . Review of Systems All systems reviewed & are unremarkable except as noted in HPI & below. Physical Exam * General: Alert and oriented, no acute distress * Constitutional: well-developed, well-nourished. * Respiratory: Normal respiratory effort, no distress * Gastrointestinal: No tenderness to palpation, no rigidity or guarding. * Skin: No rash or lesion. * Neurologic: Grossly normal * Musculoskeletal: Right ring finger now with absent nail and degloving appearance of distal top layer of skin at tip and ulnar aspect of digit extending to base of nail. Underlying tissue is without necrosis or drainage. Swelling and erythema have also greatly improved in digit. 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 Results & Data Results & Data Laboratory Results Laboratory Results - last 24 hr 01/11/25 06:40 WBC 13.06 H RBC 4.70 Hgb 13.5 L Hct 39.8 L MCV 84.7 MCH 28.7 MCHC 33.9 RDW Std Deviation 46.2 RDW Coeff of Jerry 14.9 H Plt Count 431 H MPV 10.2 Immature Gran % (Auto) 1.5 Neut % (Auto) 73.3 Lymph % (Auto) 16.1 [place] % (Auto) 7.4 Eos % (Auto) 1.3 Baso % (Auto) 0.4 Neut # (Auto) 9.58 H Lymph # (Auto) 2.10 [place] # (Auto) 0.97 H Eos # (Auto) 0.17 Baso # (Auto) 0.05 Immature Gran # (Auto) 0.19 Sodium 133 L Potassium 3.0 L Chloride 89 L Carbon Dioxide 34 H Anion Gap 10 BUN 31 H Creatinine 1.00 Est Cr Clr Drug Dosing 71.6 eGFR 76.56 BUN/Creatinine Ratio 31.0 H Glucose 134 H Calcium 9.6 . Diagnostic Findings . PG Care Time/CCT Total # of Minutes Spent Total Time Spent with Patient: Total time spent is greater than 50% in coordination of care (as documented) at patient's floor/unit and/or counseling patient: Coding Level of Care Code 09415 SUB INP/OBS CARE 235MIN Diagnoses Status post incision and drainage Z98.890 Abscess of finger of right hand L02.511
[2025-01-11] MEDS: POTASSIUM CHLORIDE / WTR 10 MEQ/100 ML PLCT IV SCH (10:25)
[2025-01-11 11:13] VITALS: TEMP 98.1
--- NOTE | 2025-01-11 12:51 | Discharge Summary ---
Discharge Summary Date of Service January 11, 2025 Principal Dx & Hospital Course #1 = Principal Diagnosis (1) Acute on chronic hypoxic respiratory failure: Oxygen per nasal cannula to maintain saturation greater than 90%. He is now on room air at rest. (2) Acute on chronic systolic CHF (congestive heart failure): Good diuretic response with metolazone and parenteral Lasix. Monitor urine output. Bumex has been switched to Lasix going forward and he will remain on metolazone every Wednesday and (3) Sepsis: Present on admission. Due to cellulitis and abscess of the right fourth ring finger. Treated while hospitalized with vancomycin . Positive blood culture from January 07 is thought to be a contaminant. He will be discharged on oral Cipro for 10 more days (4) Chronic hyponatremia: No intervention needed at this time. Serial labs (5) Ambulatory dysfunction: Supportive care. OT and PT assessments have been completed. He is stable for discharge to home with home health services (6) Hypokalemia: Due to Lasix diuresis. Potassium still remains low. Continue oral replacement. Serial labs Plan home with home health services, Kingston catheter, oral antibiotic today, January 11 Admission HPI Per Admitting Provider 79 years old male with PMH of FULL CODE @ home with , obesity with BMI 32.3 (height 180.34 cm; weight 105.1 kg), ROSE on 1.5 liters/minute O2 via nocturnal CPAP @ 10 cm H2O, non-diabetic ulnar neuropathy and cervical radiculopathy affecting the bilateral hands, now on home-scheduled oxycodone 10mg PO q12, Parkinson's disease with resting tremors of the bilateral hands, not on sinemet, amantidine, or selegiline for unclear reasons, now dependent on both slonik-lml-biuxuxoqhx @ home, BPH on home-scheduled finasteride 5mg PO daily and tamsulosin 5mg PO daily, restless legs syndrome on home-scheduled pramipexole 0.375mg PO daily, GERD on home-scheduled protonix 40mg PO bid, chronic normocytic, normochromic anemia with progressive decline in baseline Hb range from 13.7 g/dL, MCV 88.7, MCHC 33.5 (02/23/2023, 9:20am) to 12.8 g/dL, MCV 84.3, MCHC 32.6 (12/09/2024, 1:05pm), allergic rhinitis on home-scheduled cetirizine 10mg PO daily and fluticasone nasal spray, 50ug/spray, 1 spray to each nostril daily, MRSA nares + (02/23/2023, time ?; 07/25/2024, time ?; 08/14/2024, 9:13am), MRSA nares- (12/04/2024, 12:45pm), major depression on home-scheduled bupropion 100mg PO bid, former tobacco abuse with subsequent diagnosis of chronic hypoxic respiratory failure due to end-stage COPD on 2 liters/minute O2 via nasal cannula at bedtime only, never on O2 during the daytime, not on home steroids, just home-scheduled albuterol MDI 90ug/puff, 2 puffs PO q6 prn SOB/wheeze, duonebs q6 [id number] starting on Wednesday morning (01/05/2025, 9:00am), and long-acting beta 2 adrenergic agonist oladaterol 2.5ug/puff, 1 puff inhaled daily, never intubated, recent development of chronic leukocytosis with baseline WBC 11.03 (12/04/2024, 12:45pm) to 14.85 (12/09/2024, 1:05pm), CAD s/p acute "major heart attack" (2010, [facility]), s/p stent x 1 (2010, [facility], Interventional CARDS Dr. Royce Negron), now on home-scheduled ASA 81mg PO daily and rosuvastatin 20mg PO qhs, complicated by acute PE and acute LLE DVT (2010) thereafter, now on apixaban 5mg PO bid, followed by development of chronic biventricular systolic CHF with reduced LVEF 20-25% and global hypokinesis with severe hypokinesis to akinesis of infero-lateral wall, NO LVH, and RV normal size with reduced systolic function and mild mitral regurgitation (as noted on 07/29/2024, 8:03am TTE, CARDS Dr. Marcelino Barkley), s/p Medtronic PPM+AICD (implanted in 2011, replaced in 2014 and in 2021, [facility] CARDS Dr. Nav Abreu; with battery change due in January 2025, as per patient's report) with 1 pillow and 1 pillow wedge orthopnea on a regular bed at home, no paroxysmal nocturnal dyspnea or platypnea, with dry baseline weight of 200-205 pounds at home, which represents a 10-17 pounds decline from patient's earlier dry baseline weight of 217 pounds in April 2024, and which is due to intentional dieting on the patient's part as "I try to lose weight by not eating much," now maintained on home-scheduled carvedilol 3.125mg PO bid, bumex 2mg PO daily, and spironolactone 25mg PO daily, chronic euvolemic hyponatremia with baseline Na range, 130-135 mmol/L (09/09/2024 - 12/09/2024), chronic/persistent AFIB s/p PPM, s/p ablation (05/25/2024, [facility]), now on home- scheduled carvedilol 3.125mg PO bid and apixaban 5mg PO bid, who last presented to [facility] ER on 12/04/2024 with complaints of progressive SOB/POWERS, dry cough, and was admitted to the inpatient hospitalist service @ [facility] on 12/04/2024 with the following diagnosis: 1. Acute hypoxic respiratory failure of unclear etiology, attributed to acute bibasilar CAP, R/O aspiration PNA with admitting WBC 11.03, N67 L21 M7 E4 (12/04/2024, 12:45pm). Patient received empiric doxycycline and vancomycin given patient's allergy to penicillin (causing SOB/swelling), solumedrol, and duonebs prn. Patient was discharged home as he refused discharge to SNF on 12/09/2024 with discharge WBC 14.85, no differential (12/09/2024, 1:05pm) on doxycycline 100mg PO bid, #16 tablets, metronidazole 500mg PO bid, #16 tablets, and prednisone 50mg PO daily, #8 tablets, no refills. Patient returns to [facility] ER on 01/07/2025 with the following complaint: "I started getting short of breath on Wednesday morning (01/05/2025, 9:00am) after I started using the Duoneb medicine with my nebulizer machine. I never used the Duoneb medicine until this Wednesday morning (01/05/2025, 9:00am). I had a dry cough and some wheezing, but no chest pains. No fevers or chills or sweating. Nobody at home but me and my , and she is not sick with anything. My legs were not swelling up and I was actually losing weight on purpose, by not eating. For example, I only ate half of one egg this morning before my drove me to [facility] ER today. I used to weigh 217 pounds earlier this year, and I am now down to 200 to 205 pounds. I don't know why I am getting short of breath since Wednesday morning (01/05/2025, 9:00am). Do you think I am having an allergic reaction to the Duoneb medicine?" Patient also reports that he cannot remember when, but that "I must have banged my right hand when using my wheelchair because now my right hand is swollen and my right ring finger is even more swollen and red and hurts a lot. My said that the fingernail looks like it is coming off, too." Patient denies antecedent/coincident fevers, chills, diaphoresis, sore throat, hemoptysis, chest pains, palpitations, pleurisy, nausea, vomiting, diarrhea, abdominal pain, pelvic pain, hematemesis, hematochezia, melena, hematuria, dysuria, frequency, urgency, flank pain, headaches, dizziness, lightheadedness, visual changes, hearing changes, weakness, falls, syncope, travel history, sick contacts, or food/drug ingestions novel or new. All other review of systems are reported as negative by the patient on admission date 01/07/2025. In [facility] ER bed #C09, patient was afebrile at 36.9 degrees Celsius, HR 91, RR 22, O2 sat 86% on room air, and repeat O2 sat 94% on 2 liters/minute O2 via nasal cannula, and BP 120/70 (01/07/2025, 12:00pm). Exam was noted for coarse breath sounds bilaterally with no audible expiratory wheeze, egophony, pectoriloquy, increase in tactile fremitus, or flatn ess/dullness to percussion at the bases. Jugular venous pressure could not be estimated as I could not discern patient's sternal angle of [place] due to body habitus with BMI 32.3 (height 180.32 cm; weight 105.1 kg). Patient had no edema of the bilateral feet, shins, knees, hips, or thighs. Exam was also noted for bilateral hand tremors that extinguished with intentional movement. In addition, patient's right dorsal hand appeared slightly edematous, but not was NOT erythematous, warm, indurated, tender, ulcerative, malodorous, and without crepitus, fluctuance, discharge (sanguineous, serous, suppurative), or lymphangitic streaking. However, patient's right 4th finger was grossly edematous circumferentially with a sausage appearance, with associated erythema, warmth, induration, tenderness, and fluctuance, but no ulceration, malodor, crepitus, discharge (sanguineous, serous, suppurative), or lymphangitic strea kevin; a well-healed 2mm scab overlying the right 4th finger proximal interphalangeal joint was present, along with a proximal sub-ungual hematoma @ right 4th finger nailplate with distal onychomycosis. Of note, patient had slight erythema on the bilateral inframammary intertriginous zones and the bilateral inguinal intertriginous zones. Of final note, there were no heel decubiti, no elbow decubiti, no posterior ear decubiti, and no sacral decubiti on re-admission date 01/07/2025. Labs in [facility] ER bed #C09 included: WBC 14.4, N76 L15 M8 E1, Hb 12.7, MCV 86.2, MCHC 32.2, platelet 360 (01/07/2025, 12:25pm). Lactic acid #1 1.7 mmol/L (01/07/2025, 2:49pm). Lactic acid #2 (01/07/2025, 6:49pm). Procalcitonin #1 0.06 ng/mL (01/07/2025, 2:49pm). Respiratory pathogen PCR panel negative (01/07/2025, 12:28pm). Urinalysis (01/07/2025, 2:49pm). Na 132, K 4.2, BUN 18, creatinine 1.01, GFR 75.65, glucose 124, Ca 8.9 (01/07/2025, 12:25pm). Lipase 17 U/L (01/07/2025, 12:25pm). Troponin-I #1 19.6 pg/mL (01/07/2025, 12:25pm). Troponin-I #2 20.0 pg/mL (01/07/2025, 4:05pm). BNP 194 pg/mL (01/07/2025, 12:25pm). Additional testing in [facility] ER bed #C09 included: Portable CXR (01/07/2025, 12:06pm): 1. Old bibasilar infiltrates, bilateral effusions (moderate left, small right), cardiomegaly, pulmonary vascular congestion. 2. No pneumothorax. (by my review). Portable CXR (12/09/2024, 9:30am): 1. Bibasilar infiltrates, bilateral effusions (moderate left, small right), cardiomegaly, pulmonary vascular congestion. 2. No pneumothorax. (by my review). EKG (01/07/2025, 12:07pm): Ventricular pacing @ 97, QTC 546 (by my review). EKG (12/05/2024, 8:57am): Dual AV pacing @ 88, QTC 549 (by my review). Patient was subsequently re-admitted to [facility] on 01/07/2025 with the following diagnoses: 1. Jolhd-ks-uukfwdl hypoxic respiratory failure of unclear etiology, but probably due to: A. Acute exacerbation of end-stage COPD. B. Acute exacerbation of chronic biventricular systolic CHF with reduced LVEF 20-25% and global hypokinesis with severe hypokinesis to akinesis of infero- lateral wall, NO LVH, and RV normal size with reduced systolic function and mild mitral regurgitation (as noted on 07/29/2024, 8:03am TTE, CARDS Dr. Marcelino Barkley), s/p [employer] PPM+AICD (implanted in 2011, replaced in 2014 and in 2021, [facility] CARDS Dr. Nav Abreu; with battery change due in January 2025, as per patient's report) with 1 pillow and 1 pillow wedge orthopnea on a regular bed at home, no paroxysmal nocturnal dyspnea or platypnea, with dry baseline weight of 200-205 pounds at home, which represents a 10-17 pounds decline from patient's earlier dry baseline weight of 217 pounds in April 2024, and which is due to intentional dieting on the patient's part as "I try to lose weight by not eating much," now maintained on home-scheduled carvedilol 3.125mg PO bid, bumex 2mg PO daily, and spironolactone 25mg PO daily. 2. Sepsis (cf., HR > 90, RR > 20, WBC > 12) without septic shock, without end- organ (renal) failure, due to acute right 4th finger non-suppurative, non- bullous cellulitis. 3. Fungal dermatitis of the bilateral inframammary intertriginous zones and bilateral inguinal intertriginous zones. 4. Chronic euvolemic hyponatremia with admission Na 132 mmol/L (01/07/2025, 12:25pm) with baseline Na range, 130-135 mmol/L (09/09/2024 - 12/09/2024). 5. Chronic ambulatory dysfunction utilizing mfasfj-tgvupcojli-waozzsgry @ home. To address #1A, patient was continued on patient's home-scheduled 2 liters/minute O2 via nasal cannula at bedtime only, now on 2 liters/minute O2 via nasal cannula wjvtlx-dls-fwakz, duonebs q6, duonebs q4 prn SOB/wheeze, solumedrol 60mg IV daily (day #1/3 on 01/07/2025, 6:00pm), and protonix 40mg PO daily (day #1/3 on 01/07/2025, 5:59pm)(to prophylax against steroid-associated gastritis, ulcer formation, and/or GI bleeding). To address #1B, patient was started on lasix 40mg IV x 1 dose (01/07/2025, 2:04pm) in [facility] ER bed #C09, in lieu of patient's home- scheduled bumex 2mg PO daily. Patient will continue with lasix 40mg IV bid x 4 doses (starting on 01/07/2025, 5:33pm), 2 gram Na diet, daily weights, strict I/O, home-scheduled carvedilol 3.125mg PO bid and home-scheduled spironolactone 25mg PO daily in [facility] Tele bed #N279-1. Given the recent TTE (07/25/2024, 8:03am TTE, as ordered by patient's Interventional CARDS Dr. Royce Negron)(see report below), I have opted to hold OFF repeat TTE evaluation while patient remains in [facility]. cf., TTE (07/25/2024, 8:03am TTE, CARDS Dr. Marcelino Barkley): 1. LVEF 25-30%. Global hypokinesis with severe hypokinesis to akinesis of inferolateral wall. No LVH. Indeterminate diastolic function. 2. RV grossly normal size. PPM lead in RV. RV systolic function reduced as assessed by tricuspid annular plane systolic excursion (TAPSE < 1.6 cm). 3. LA/RA not well visualized. 4. No significant AR. No hemodynamically significant . 5. No significant SD. No PS. 6. Mild MR. No MS. 7. No significant TR. No TS. 8. Aortic root normal size. Normal IVC size and collapsibility with sniff indicates normal RAP of 3 mm Hg. 9. No significant pericardial effusion. (as per CARDS Dr. Marcelino Barkley). To address #2, patient is being started on vancomycin 1g IV q12 (day #10 on 01/07/2025, 7:00pm) and doxycycline 100mg IV q12 (day #05/05 on 01/07/2025, 7:00pm) in [facility] Telemetry bed #N279-1. I will check vitals, right 4th finger exam, WBC w/differential, lactic acid, procalcitonin, and surveillance blood cultures x 2 (01/07/2025, 6:25pm) in the 01/08/2025 am. To address #3, patient is being started on nystatin powder, 100,000 units/gram, topically applied to the bilateral inframammary intertriginous zones and bilateral inguinal intertriginous zones (day #05/25 on 01/07/2025, 7:00pm). To address #4, patient is being observed as patient remains asymptomatic with this mild degree of chronic euvolemic hyponatremia and which in all probability is due to a SIADH mechanism in the setting of chronic biventricular systolic CHF with reduced LVEF 20-25% and global hypokinesis with severe hypokinesis to akinesis of infero-lateral wall, NO LVH, and RV normal size with reduced systolic function and mild mitral regurgitation (as noted on 07/29/2024, 8:03am TTE, CARDS Dr. Marcleino Barkley). To address #5, patient awaits PT/OT Service evaluations in the days to come with anticipated D/C to SNF for short-term rehab as patient appears significantly deconditioned on re-admission date 01/07/2025. Discharge Exam General-alert and oriented x3, no fever, no chills HEENT-head atraumatic and normocephalic, pupils equal and reactive to light, extraocular muscles intact Neck-no lymphadenopathy or thyromegaly, trachea midline Chest-bibasilar diminished breath sounds and dullness has lessened. Inspiratory rales have also lessened. No wheezing Cardiac -regular rate and rhythm, normal S1 and S2 Abdomen-normal bowel sounds, no hepatosplenomegaly Extremities-no cyanosis, clubbing, or edema. Right fourth finger is heavily bandaged Neuro-cranial nerves II through XII intact, motor and sensory function within normal limits, strength symmetrical, no focal deficits Psych-normal affect, normal mood Discharge Plan Discharge Items Patient Disposition: Home - Home Health Services Reason For Visit: ACUTE ON CHRONIC DIVERTICULAR SYSTOLIC CHF Discharge Diagnosis: Acute on chronic systolic congestive heart failure, acute hypoxic respiratory failure, urinary retention requiring Kingston catheter placement cellulitis and abscess of the right fourth finger Condition on Discharge: Good Activity: Resume your previous activity Non-emergency contact: Primary Care Provider, Surgeon and Urologist Call non-emergency contact if: you have any medication questions and your symptoms worsen Follow-up/Referrals: Tramaine Peterson MD [Primary Care Provider] - Diet: Regular and Heart Healthy Addtl Attending Provider Instructions: Bumetanide has been switched to Lasix (furosemide). Take metolazone water pill twice weekly, once on Wednesday and once on . Take ciprofloxacin antibiotic twice daily for 10 more days. Kingston catheter remains in place at discharge. See your primary care provider, urologist, and the general surgeon as soon as possible for follow-up Pending Studies at Discharge: No Stand-Alone Forms: My [facility] [place], Smoking Cessation Medications and DC Order Prescriptions: New furosemide [Lasix] 80 mg tablet 80 mg PO DAILY Qty: 30 0RF ciprofloxacin HCl [Cipro] 500 mg tablet 500 mg PO BID Qty: 20 0RF metolazone 5 mg tablet See Rx Instructions .ROUTE .COMPLEX Qty: 30 0RF Rx Instructions: 5 mg orally every Wednesday and Continued menthol-zinc oxide [Calmoseptine] 0.44-20.6 % ointment 1 applic topical BID tamsulosin 0.4 mg capsule 0.4 mg PO HS Qty: 30 11RF Eliquis 5 mg tablet 5 mg PO BID nystatin 100,000 unit/gram ointment 1 applic topical BID PRN (Reason: fungal infection) cetirizine [Zyrtec] 10 mg tablet 0 mg PO DAILY Patient Comments: [facility] bupropion HCl 100 mg tablet 100 mg PO BID Rx Instructions: TAKE THIS MEDICATION EVERY MORNING AND AT NOON pantoprazole [Protonix] 40 mg tablet,delayed release (DR/EC) 40 mg PO BID Rx Instructions: Morning & Noon polyethylene glycol 3350 [Miralax] 17 gram powder in packet 17 g PO DAILY PRN (Reason: Constipation) pramipexole 0.375 mg tablet extended release 24 hr 0.375 mg PO DAILY Qty: 30 6RF Rx Instructions: [facility] list dose is 0.5mg po daily spironolactone 25 mg tablet 25 mg PO DAILY Qty: 90 3RF PreserVision AREDS 4,296 mcg-226 mg-90 mg capsule 1 cap PO BID aspirin 81 mg tablet 81 mg PO DAILY rosuvastatin 20 mg tablet 20 mg PO DAILY Refresh Lacri-Lube 56.8-42.5 % Ointment 1 applic OPB HS Rx Instructions: 1/4th INCH IN EACH EYE epinephrine 0.3 mg/0.3 mL Auto-Injector 0.3 mg IM DIRECTED PRN (Reason: Anaphylaxis) oxycodone [OxyContin] 10 mg Tablet,Oral Only,Ext.Rel.12 Hr 10 mg PO Q12H carvedilol 6.25 mg Tablet 3.125 mg PO BID Rx Instructions: must administer with a meal/food clotrimazole 1 % Cream 1 applic TOPICAL BID metoclopramide HCl 10 mg Tablet 10 mg PO BID Rx Instructions: Twice daily before meals triamcinolone acetonide 0.025 % Cream 1 applic TOPICAL DAILY Patient Comments: [facility] list, Rx 12/28/24 Ensure Liquid 1 ea PO TID Rx Instructions: Chocolate ipratropium-albuterol 0.5 mg-3 mg(2.5 mg base)/3 mL Solution For Nebulization 3 ml NEB Q6R 30 Days Qty: 30 0RF albuterol sulfate [Ventolin HFA] 90 mcg/actuation HFA aerosol inhaler 1 inh inhalation Q6H PRN (Reason: shortness of breath or wheezing) 30 Days Qty: 8.5 0RF sennosides [senna] 8.6 mg Tablet 17.2 mg PO BID PRN (Reason: Constipation) aluminum hydroxide gel 320 mg/5 mL Suspension 320 mg PO DAILY PRN (Reason: Heartburn) Rx Instructions: 1 tablespoon docusate sodium 100 mg Capsule 100 mg PO BID fluticasone propionate 50 mcg/actuation [place]awling,Suspension 1 spray INTRANASAL DAILY Rx Instructions: administer into each nostril finasteride 5 mg Tablet 5 mg PO DAILY olodaterol 2.5 mcg/actuation Mist 2 inh INHALATION DAILY Discontinued bumetanide [Bumex] 2 mg Tablet 2 mg PO DAILY Discharge Orders: Discharge Order- CHF (Routine); Ordered 01/11/25 Ordered By: Saúl Dill Admission Data Admit Date/Time: 01/07/25 14:08 Attending Provider: Saúl Dill Admit Provider: Fabio Stoner Primary Care Provider: Tramaine Peterson Other Providers: [facility]; Nathan Iniguez; Oswaldo Cordon; Guido Garcia; Neha Fields; Kasey Veliz; Lidia Mckeon; Christelle Joe; Marquis Burns; Katharine Alex; Dio Kay; Glenis Myers; Baron Govea; Betsy Sanchez; Royce Flores; Angelica Marquez; Ani Bishop; Omar Trujillo; Matthias Bangura.; Adrianne Campos; Natalie Venegas; Marichuy Mack; Akila Carpio; Chely Martinez; Heidy Booth; Guido Moreno; Matthias Sanchez; Hlalie Moon; Amita Ochoa Hospital Stay Data Consultations 01/07/25 13:29 ED Decision to Admit Stat 01/08/25 10:06 Consult Urology Routine 01/08/25 15:23 Consult Orthopedic Surgery Routine Procedures Performed Operation Date: 01/09/25 10:20 Actual Procedures p Right Ring Finger Incision and Drainage(Right) - Royce Flores MD Pending Results Patient Have Any Pending Studies at Discharge: No Discharge Instructions Given to Patient (Per Discharging Provider) Bumetanide has been switched to Lasix (furosemide). Take metolazone water pill twice weekly, once on Wednesday and once on . Take ciprofloxacin antibiotic twice daily for 10 more days. Kingston catheter remains in place at discharge. See your primary care provider, urologist, and the general surgeon as soon as possible for follow-up Total Time Total Time Spent Total Time Spent (In Minutes): 50 minutes Coding Level of Care Code 46582 INP/OBS DISCH >30 MIN Diagnoses Acute on chronic hypoxic respiratory failure J96.21 Acute on chronic systolic CHF (congestive heart failure) I50.23 Sepsis A41.9 Chronic hyponatremia E87.1 Ambulatory dysfunction R26.2 Hypokalemia E87.6
[2025-01-11 13:20] VITALS: BP 120/75; PULSE 90
== END 2025-01-11 15:10 | disposition home health service (06) | DRG 871 ==
LOC: ED 11:53 → 2N 14:08 → SUATTDRO 14:08 → 2N 16:11